=== PATIENT | male | born 1990 | race Caucasian/White ===

== ENCOUNTER 2023-12-02 11:13 | Emergency (ER) | payer BC, SELFPAY ==
[2023-12-02] VITALS (30 sets, daily range): BP systolic 113–135; BP diastolic 85–112; PULSE 108–126; RESP 12–27; TEMP 36.3–36.7; O2SAT 95–100
--- NOTE | ~2023-12-02 | XR_ITS ---
XR chest 1V Ordering provider: Demetrius Fair MD History: 33 years Male with . Chest pressure, PANCREATITIS . Comparison: None. FINDINGS: MEDIASTINUM: The cardiac silhouette is not enlarged. LUNGS: No infiltrates, effusions or pneumothorax. OTHER: No free air under the diaphragm. IMPRESSION: No acute cardiopulmonary pathology. Reviewed, dictated and finalized at location A.
--- NOTE | ~2023-12-02 | CT_ITS ---
EXAMINATION: CT abdomen pelvis w con DATE: 12/02/2023 12:25 INDICATION: Epigastric abdominal pain. TECHNIQUE: Computed tomography (CT) of the abdomen and pelvis was performed with 100 mL Omnipaque 350 intravenous contrast. Automated exposure control and iterative reconstruction technique were employe d. The dose-length product was 298.67 mGy-cm. COMPARISON: None. FINDINGS: The visualized portions of the lung bases demonstrate mild atelectasis. No pleural effusion . The heart size is normal. No pericardial effusion. There is diffuse hepatic steatosis. The gallblad panda, spleen, and adrenal glands are normal. There are multiple hypodense masses in the pancreas measu ring up to 3.3 cm in the tail of the pancreas. There is fat stranding around the pancreas. Right kidn ey is normal. There is an 8 mm cyst in left kidney. There are no dilated loops of bowel. The appendix is normal. There are no pathologically enlarged lymph nodes. There is no free intraperitoneal fluid. There is an umbilical hernia containing fat. There is mild thoracic and lumbar spondylosis. IMPRESSION: 1. Acute necrotic pancreatitis. 2. Diffuse hepatic steatosis. Reviewed, dictated and finalized at location A.
--- NOTE | ~2023-12-02 | CT_ITS ---
Clinical Indication: Chest pain CT Scan of the Chest with Contrast: Technique: Contiguous sections were acquired throughout the chest after intravenous administration of 100 cc of Omnipaque 350. Dose reduction technique was used on this scan by utilizing automated expos ure control and iterative reconstruction technique. The dose-length product (DLP) was 205.44 mGy-cm. Findings: There is no evidence of any significant mediastinal, hilar or axillary lymphadenopathy. There is no f illing defect in the pulmonary arterial tree to suggest pulmonary embolus. There is no evidence of ao rtic dissection or aneurysm. There is no evidence of pleural or pericardial effusion. The lungs are clear. No pulmonary nodules or infiltrates are noted. Images through the upper abdomen reveal diffuse hepatic steatosis. Impression: No evidence of pulmonary embolus, aortic dissection, or aortic aneurysm. Clear lungs. Reviewed, dictated and finalized at [facility]. Impression: No evidence of pulmonary embolus, aortic dissection, or aortic aneurysm. Clear lungs.
--- NOTE | 2023-12-02 11:20 | ECG_ITS ---
Test Date: 2023-12-02 11:34:46 Measurements Intervals [place] Rate: 117 P: 18 KS: 120 QRS: 85 QRSD: 88 T: -58 QT: 350 QTc: 489 Interpretive Statements SINUS TACHYCARDIA ST-T WAVE ABNORMALITY IN ANTEROLATERAL LEADS- CONSIDER ISCHEMIA ABNORMAL ECG No previous ECG available for comparison Electronically Signed On 12-02-2023 11:42:53 CDT by Watson Sandoval D.O.
[2023-12-02 11:33] LABS: Basophils Percent Auto 0.4 % (0.2-1.2); Eosinophils Absolute Auto 0.1 K/mm3 (0-0.3); Eosinophils Percent Auto 0.5 % (0-4.4); Hemoglobin 14.9 g/dL (14.0-18.0); Immature Granulocyte Absolute 0.03 K/mm3 (0.00-0.031); Immature Granulocyte Percent A 0.3 % (0-0.5); Lymphocytes Absolute Auto 0.61 K/mm3 (0.9-3.2); Lymphocytes Percent Auto 5.9 % (18.3-44.2); Mean Corpuscular HGB Conc 34.7 g/dl (32-36); Mean Corpuscular Hemoglobin 32.7 pg (26-34); Mean Corpuscular Volume 94.3 fl (80-100); Mean Platelet Volume 9.6 fl (7.4-10.4); Monocytes Absolute Auto 0.8 K/mm3 (0.1-0.6); Monocytes Percent Auto 8.1 % (2.6-8.5); Neutrophils Absolute Auto 8.7 K/mm3 (1.3-6.7); Neutrophils Percent Auto 84.8 % (45.5-73.1); Platelet Count Result 105 k/mm3 (150-375); Red Blood Count 4.56 M/mm3 (4.6-6.20); Red Cell Distribution Width 14.1 % (11.5-14.5); White Blood Count 10.3 K/mm3 (4.5-10.0)
[2023-12-02 11:42] LABS: INR 0.9; Prothrombin Time 12.6 Seconds (11.1-14.7)
[2023-12-02 11:43] LABS: Alanine Aminotransferase 139 U/L (6-50); Albumin Level 5.5 g/dL (3.5-5.1); Alkaline Phosphatase 79 U/L (38-126); Anion Gap 28 mmol/L (4-12); Aspartate Amino Transferase 290 U/L (17-59); Bilirubin,Total 2.2 mg/dL (0.2-1.3); Blood Urea Nitrogen 12 mg/dL (9-20); Calcium 8.8 mg/dL (8.4-10.2); Carbon Dioxide 18 mmol/L (22-30); Chloride 82 mmol/L (98-107); Estimated CRCL calculation 128 ml/min; Estimated Glomerular Filt Rate > 60; Glucose 240 mg/dL (65-110); Lipase 385 U/L (23-300); Partial Thromboplastin Time 29.9 Seconds (22.3-36.8); Potassium 4.2 mmol/L (3.4-5.0); Sodium 128 mmol/L (137-145)
[2023-12-02 11:56] LABS: Troponin I 0.093 ng/mL (0.000-0.034)
[2023-12-02] MEDS: DEXTROSE 5%/LACTATED RINGERS 2,000 ML 100 ML IV CONT (12:01)
[2023-12-02 12:20] LABS: Lipase 392 U/L (23-300); Magnesium 2.2 mg/dL (1.6-2.3); Phosphorus 2.8 mg/dL (2.5-4.5)
[2023-12-02 12:23] LABS: Ethanol < 10 mg/dL (<10)
[2023-12-02 12:23] LABS: Lactic Acid Reflex 3.8 mmol/L (0.7-2.0)
[2023-12-02 12:24] LABS: Acetaminophen 35 ug/mL (10-30)
[2023-12-02 12:36] LABS: Amphetamine Screen Urine Negative (Negative); Barbiturate Screen Urine Negative (Negative); Benzodiazepines Screen Urine Negative (Negative); Cannabinoid Screen Urine Negative (Negative); Cocaine Screen Urine Negative (Negative); Methadone Screen Urine Negative (Negative); Opiate Screen Urine Negative (Negative); Phencyclidine Screen Urine Negative (Negative)
[2023-12-02 12:40] LABS: NT Pro B Type Natriuretic Pept 3480 pg/mL (19.9-100)
[2023-12-02 12:47] LABS: D Dimer 0.96 ug/mL (<0.48)
[2023-12-02] MEDS: THIAMINE 500 MG/NS 100 ML 500 MG/100 ML BAG 200 MG IVPB (12:52)
--- NOTE | 2023-12-02 12:54 | PC.NURSE ---
called poison control for pt reporting taking 6000 mg acetaminophen throughout the day today for his abd pain >250mg/kilo is concerning, with 17.5 gram max in 24 hour period. pt took 98mg/kilo, meaning this could be considered subtoxic spoke with MADHURI Liao, who recommended repeating labwork in 4-6 hours or starting Acetylcysteine at this time, decision to be made by er md. loading dose 150 mg/kilo over 1 hour and then follow pharmacy protocol
[2023-12-02] MEDS: ONDANSETRON INJ 4 MG/2 ML VIAL IV PUSH (13:11)
[2023-12-02] MEDS: HYDROmorphone HCL INJ (*CRX) 1 MG/ML SYR IV PUSH ×3 (13:11→20:07)
[2023-12-02] MEDS: CEFEPIME 2 GM/NS 50 ML 2 GM/50 ML BAG IVPB ×2 (14:17→22:29)
--- NOTE | 2023-12-02 14:27 | ED.GENADULT ---
HPI - General Adult General Chief complaint: Abdominal Pain <Demetrius Fair MD - Last Filed: 12/02/23 19:11> Stated complaint: multiple complaints <Demetrius Fair MD - Last Filed: 12/02/23 19:11> Time Seen by Provider: 12/02/23 11:37 <Demetrius Fair MD - Last Filed: 12/02/23 19:11> History of Present Illness HPI narrative: This is a 33-year-old male with history of alcoholism and pancreatitis presenting with multiple complaints. Main complaint is epigastric abdominal pain that is squeezing in radiates to his back. He relates this to previous episodes of pancreatitis. It is associated persistent nausea vomiting and diaphoresis. The the patient has been taking Tylenol throughout the day which has not been helping. Throughout the day today he has taken 6000 mg. He also took 2 doses of clonazepam prior to arrival. Second complaint is chest pain. Patient says he has a pressure in the center his chest. It is nonradiating and mild in intensity. <Demetrius Fair MD - Last Filed: 12/02/23 19:11> Related Data Allergies/adverse reactions: Allergies Allergy/AdvReac Type Severity Reaction Status Date / Time Sulfa (Sulfonamide Allergy Unknown Unknown Verified 12/02/23 12:01 Antibiotics) sulfamethoxazole Allergy Unknown Unknown Verified 12/02/23 12:01 trimethoprim Allergy Unknown Unknown Verified 12/02/23 12:01 <Demetrius Fair MD - Last Filed: 12/02/23 19:11> Exam Narrative: APPEARANCE: Patient is toxic appearing, diaphoretic Head: atraumatic. EYES: EOMI, NOSE: Atraumatic NECK: Trachea midline RESPIRATORY: No increased rate of breathing clear to auscultation CARDIOVASCULAR: Tachycardic no peripheral edema ABDOMINAL: Tender in the epigastric area with voluntary guarding MUSCULOSKELETAl: No obvious deformities NEURO: Alert. Moving 4/4 extremities SKIN:: Cool clammy diaphoretic <Demetrius Fair MD - Last Filed: 12/02/23 19:11> Course Vital Signs Vital signs: Vital Signs Temperature 97.9 F 12/02/23 11:13 Pulse Rate 117 H 12/02/23 11:13 Respiratory Rate 16 12/02/23 11:13 Pulse Oximetry 100 12/02/23 11:13 Temperature 97.4 F L 12/02/23 18:33 Pulse Rate 118 H 12/03/23 03:01 Respiratory Rate 12 12/03/23 03:01 Blood Pressure 113/95 H 12/03/23 03:01 Pulse Oximetry 100 12/03/23 03:01 <Demetrius Fair MD - Last Filed: 12/02/23 19:11> Vital Signs Temperature 97.9 F 12/02/23 11:13 Pulse Rate 117 H 12/02/23 11:13 Respiratory Rate 16 12/02/23 11:13 Pulse Oximetry 100 12/02/23 11:13 Temperature 97.4 F L 12/02/23 18:33 Pulse Rate 118 H 12/03/23 03:01 Respiratory Rate 12 12/03/23 03:01 Blood Pressure 113/95 H 12/03/23 03:01 Pulse Oximetry 100 12/03/23 03:01 <Ortega Urias DO - Last Filed: 12/03/23 03:38> Medical Decision Making MDM Narrative Medical decision making narrative: -Course: 33-year-old male presenting with abdominal pain. CT showed acute necrotizing pancreatitis hepatic steatosis. lipase 385. Metabolic panel consistent with alcoholic ketoacidosis and dehydration. Liver enzymes slightly elevated. Patient resuscitated with D5 LR, given thiamine and pain control. Patient started on cefepime and Flagyl. Patient's troponins came back elevated at 0.09 x3. BNP slightly elevated. D-dimer also elevated but CT PE without acute findings in the chest. EKG showed sinus tachycardia with nonspecific T-wave changes. Patient also had a subacute ingestion of 6000mg Tylenol. This was discussed with poison control. They were not concerned about dangerous levels of toxicity. Repeat Tylenol level was undetectable. Patient placed on the [facility] (Dr. Powers) and the [facility] (Dr. Cunningham) waiting list. [facility] are [facility]. On repeat lab work patient's condition is improving. Alcoholic ketoacidosis/anion gap have improved, lactic cleared to 2.2 and liver enzymes are downtrending.
[2023-12-02 15:00] LABS: Troponin I 0.099 ng/mL (0.000-0.034)
[2023-12-02] MEDS: metroNIDAZOLE 500 MG/ISO 100ML 500 MG/100 ML BAG 100 MG IVPB ×2 (15:03→23:03)
[2023-12-02 15:04] LABS: Reflex Lactic Acid Yes or No Add Lactic
[2023-12-02 15:31] LABS: Lactic Acid 2.2 mmol/L (0.7-2.0)
--- NOTE | 2023-12-02 16:54 | PC.NURSE ---
spoke with Jennifer in triage intake at [facility]. gave verbal report. Jennifer states there is not a bed available at this time, will call when one is available
--- NOTE | 2023-12-02 17:09 | ECG_ITS ---
Test Date: 2023-12-02 17:14:06 Measurements Intervals [place] Rate: 111 P: 47 WV: 147 QRS: 66 QRSD: 92 T: -5 QT: 350 QTc: 477 Interpretive Statements SINUS TACHYCARDIA MODERATE ST-T WAVE ABNORMALITY, CONSIDER ANTEROLATERAL ISCHEMIA ABNORMAL ECG Compared to ECG 12/02/2023 11:34:46 No significant changes Electronically Signed On 12-02-2023 19:56:30 CDT by Wtason Sandoval D.O.
[2023-12-02 17:22] LABS: Alanine Aminotransferase 126 U/L (6-50); Albumin Level 4.7 g/dL (3.5-5.1); Alkaline Phosphatase 68 U/L (38-126); Anion Gap 14 mmol/L (4-12); Aspartate Amino Transferase 229 U/L (17-59); Bilirubin,Total 1.7 mg/dL (0.2-1.3); Blood Urea Nitrogen 7 mg/dL (9-20); Calcium 8.5 mg/dL (8.4-10.2); Carbon Dioxide 27 mmol/L (22-30); Chloride 87 mmol/L (98-107); Estimated CRCL calculation 183 ml/min; Estimated Glomerular Filt Rate > 60; Glucose 287 mg/dL (65-110); Potassium 4.1 mmol/L (3.4-5.0); Sodium 128 mmol/L (137-145)
[2023-12-02 17:27] LABS: Acetaminophen < 10 ug/mL (10-30)
--- NOTE | 2023-12-02 17:35 | PC.NURSE ---
pt requesting additional pain medication. edp aware
[2023-12-02 17:36] LABS: Troponin I 0.099 ng/mL (0.000-0.034)
[2023-12-02] MEDS: LACTATED RINGERS 1,000 ML 150 ML IV CONT (18:32)
[2023-12-02 19:18] LABS: Fractional Inspired Oxygen 21 %; HCO3 VBG 28.3 mEq/l (24.0-30.0); PCO2 VBG 42.4 mmHg (42.0-48.0); PO2 VBG 66.8 mmHg (35.0-45.0)
[2023-12-02 19:21] LABS: Device ROOM AIR; pH VBG 7.442 (7.300-7.400)
[2023-12-03] MEDS: HYDROmorphone HCL INJ (*CRX) 1 MG/ML SYR IV PUSH ×2 (00:03→03:47)
[2023-12-03] MEDS: LORazepam INJ (*CRX) 2 MG/ML VIAL 0.5 MG IV PUSH (00:45)
[2023-12-03 01:46] VITALS: BP 116/93; PULSE 109; RESP 10; O2SAT 98
[2023-12-03 02:01] VITALS: BP 112/90; PULSE 109; RESP 9; O2SAT 98
[2023-12-03 03:01] VITALS: BP 113/95; PULSE 118; RESP 12; O2SAT 100
== END 2023-12-03 04:06 | disposition short-term general hospital (02) ==
PROVIDERS: Emergency Medicine; Emergency Provider Student in an Organized Health Care Education/Training Program; PCP Family Medicine
DX: K85.81 Other acute pancreatitis with uninfected necrosis (principal); E87.29 Other acidosis; F10.20 Alcohol dependence, uncomplicated; Y90.0 Blood alcohol level of less than 20 mg/100 ml; R00.0 Tachycardia, unspecified; R94.31 Abnormal electrocardiogram [ECG] [EKG]; K76.0 Fatty (change of) liver, not elsewhere classified
CPT/HCPCS: 36415; 71045; 71275; 74177; 80053; 80307; 82803; 83605; 83690; 83735; 83880; 84100; 84484; 85025; 85380; 85610; 85730; 87040; 93005; 96361; 96365; 96366; 96367; 96374; 96375; 96376; 99285; J0692; J1170; J1836; J2060; J2405; J3411; J7120; J7121; Q9967

== ENCOUNTER 2024-01-30 01:05 | Inpatient (IN) | payer BC, SELFPAY ==
[2024-01-30] VITALS (17 sets, daily range): BP systolic 90–99; BP diastolic 63–79; PULSE 117–123; RESP 16–24; TEMP 36.4–37.1; O2SAT 90–100; BMI 17.2
--- NOTE | 2024-01-30 | ECHO_ITS ---
Patient Info Name: Douglas Wright Age: 33 years : 1990 Gender: Male Ht: 72 in Wt: 130 lbs BSA: 1.71 m2 HR: 122 bpm BP: 98 / 70 mmHg Heart Rhythm: Tachycardia Technical Quality: Good Exam Date: 01/30/2024 3:27 PM Exam Location: Echo Lab Patient Status: Inpatient Admit Date: 01/30/2024 Staff Ordering Physician: Monroe Young MD It Operations Analyst: Shannon Miranda RDCS Attending Provider: Ashley Coates DO Exam Type: CA echo dop color flow w con Study Info Indications R07.9 - Chest pain, unspecified Complete two-dimensional, color flow and Doppler transthoracic echocardiogram is performed with contrast to opacify the left ventricle and to improve the deliniation of the left ventricle endocardial borders. Contrast/Agitated Saline Contrast/Ag. Saline: Definity Amount: 2.00 ml Administered By: Shannon Miranda RDCS Existing IV Access: Yes IV Access Condition: patent with no signs of infiltration Summary 1. Definity contrast administered improved wall motion interpretation. 2. Left ventricular chamber dimension is severely enlarged. 3. Left ventricular systolic function is severely globally reduced, estimated at 15-20%. 4. The left ventricular diastolic function is normal. 5. E/e' 7 is not elevated. 6. There is trace mitral valve regurgitation. 7. There is trace tricuspid valve regurgitation. 8. No pulmonary hypertension, estimated pulmonary arterial systolic pressure is 18 mmHg. 9. There is trace pulmonic regurgitation. 10. There is trivial pericardial effusion. Left Ventricle Definity contrast administered improved wall motion interpretation. E/e' 7 is not elevated. Left ventricular systolic function is severely globally reduced, estimated at 15-20%. Left ventricular chamber dimension is severely enlarged. The left ventricular diastolic function is normal. Right Ventricle Right ventricular systolic function is normal and with normal TAPSE 1.9 cm. Right ventricular chamber dimension is normal. Left Atria Left atrial chamber dimension is normal. Right Atria Right atrial chamber dimension is normal. Aortic Valve The aortic valve is trileaflet. There is no aortic valve stenosis. There is no aortic valve regurgitation. Pulmonic Valve There is trace pulmonic regurgitation. Mitral Valve There is no mitral valve stenosis. There is trace mitral valve regurgitation. Tricuspid Valve There is trace tricuspid valve regurgitation. No pulmonary hypertension, estimated pulmonary arterial systolic pressure is 18 mmHg. Pericardium/Pleural There is trivial pericardial effusion. Inferior Vena Cava Normal inferior vena cava with >50% collapse upon inspiration consistent with normal right atrial pressure, 5 mmHg. Aorta The aortic root size at the sinus of Valsalva is normal. Left Ventricular Outflow Tract Name Value Normal LVOT 2D LVOT Diameter 2.17 cm LVOT Doppler LVOT Peak Gradient 1 mmHg LVOT Mean Gradient 1 mmHg LVOT VTI 5.08 cm LVOT VTI/AV VTI Ratio 0.80 LVOT Stroke Volume 18.73 ml
--- NOTE | ~2024-01-30 | US_ITS ---
COMPLETE ABDOMINAL ULTRASOUND Ordering provider: Monroe Young MD History: . possible cholecystitis . Comparison: None. FINDINGS: LIVER: Normal size and echotexture. No focal hepatic lesions or perihepatic fluid collections are isauro ntified. Portal vein flow is normal. GALLBLADDER: No evidence for stones, or sludge, gallbladder. Thickening with edema is seen in the wa ll of the gallbladder. No evidence of gallbladder perforation seen. A negative sonographic Marie's s ign was noted. BILIARY DUCTS: No evidence for intra or extrahepatic biliary dilation. Common bile duct measures 3.3 mm in diameter which is within normal limits. PANCREAS: Normal echotexture and size. UPPER ABDOMINAL AORTA: Normal in caliber. IVC: Patent. FREE FLUID: None. IMPRESSION: Thickened wall of the gallbladder. Cholecystitis is not excluded. Clinical correlation and follow-up advised. Reviewed, dictated and finalized at location A. IMPRESSION: Thickened wall of the gallbladder. Cholecystitis is not excluded. Clinical aida elation and follow-up advised.
--- NOTE | ~2024-01-30 | XR_ITS ---
XR chest 1V portable 02/01/2024 12:22 Indication: Status post PICC line Procedure: AP portable chest Comparison: 01/30/2024 Findings: Interval development of diffuse bilateral airspace disease. Possible small left effusion. N o pneumothorax. Impression: 1: Progression of diffuse bilateral airspace disease which may represent edema or pneumonia. Reviewed, dictated and finalized at location B. Impression: 1: Progression of diffuse bilateral airspace disease which may represent edema or pneumonia.
--- NOTE | ~2024-01-30 | XR_ITS ---
EXAMINATION: XR chest 1V portable DATE: 01/30/2024 06:19 INDICATION: Epigastric pain TECHNIQUE: frontal view of the chest was obtained. COMPARISON: Chest radiograph dated 12/02/2023 FINDINGS: Linear discoid atelectasis at the lateral right mid and lower lung zones. No pulmonary edema, pleural effusion or pneumothorax. The cardiomediastinal silhouette is normal. Visualized bones and soft tiss ues are unremarkable. IMPRESSION: 1. Mild discoid atelectasis at the right mid and lower lung zones. Reviewed, dictated and finalized at location A.
--- NOTE | ~2024-01-30 | XR_ITS ---
XR chest ET placement 02/01/2024 13:14 Indication: Central line insertion Procedure: AP portable chest Comparison: 02/01/2024 Findings: Borderline heart size. Endotracheal tube tip 6.7 cm above the [place]. Right IJ central line tip in the right atrium. No pneumothorax. Improved bilateral airspace disease, likely edema. Small p leural effusions. Impression: 1: Improving bilateral airspace disease, likely edema. Reviewed, dictated and finalized at location B. Impression: 1: Improving bilateral airspace disease, likely edema.
--- NOTE | ~2024-01-30 | CT_ITS ---
CT abdomen pelvis w con Ordering provider: Pierre Trevizo History: 33 years Male with . epigastric pain, hx pancreatitis . Comparison: December 02, 2023 Technique: CT abdomen and pelvis with IV and without oral contrast. Automated exposure control and it erative reconstruction technique were employed. The dose-length product was 235.82 mGy-cm. 100 mL Omn ipaque 350 was given IV. Findings: VISUALIZED LOWER CHEST: Dependent atelectatic changes. Trace of pericardial effusion. To the appendix UPPER ABDOMINAL ORGANS: Liver: Fat infiltration. Hepatomegaly. Gallbladder: Thickened enhancing wall and surrounding edema. Cystitis is possible. Clinical correlati on advised. Spleen: Normal. Stomach/duodenum: Normal. Pancreas: Focal collection is seen in the area of the tail of the pancreas measuring 1.8 x 4.2 cm. An other collection is seen measuring 3.5 x 2.8 cm. The collections are most likely connected. Fat stranding is seen around the body and the head suggest judy of residual pancreatitis. Adrenals: Normal. Kidneys: Tiny cysts in the left kidney upper pole. PELVIC ORGANS: The bladder is normal. BOWEL AND MESENTERY: Colon: No evidence of diverticulitis. Normal appendix. Small Bowel: Normal. No obstruction. Peritoneum/mesentery: No free air. Minimal free fluid is seen in the pelvis and right paracolic gutte r.. No mesenteric lymphadenopathy. RETROPERITONEUM: Normal aorta. No retroperitoneal lymphadenopathy. MUSCULOSKELETAL: Superficial soft tissues: The superficial soft tissues are normal. Bones: Normal spine. IMPRESSION: 1. Pancreatitis involving the head and body with the collection seen in the tail of the pancreas are a. 2. Fluid around the gallbladder with enhancement of the wall which may indicate cholecystitis. Clini herbie correlation advised. 3. Fat infiltration of the liver. Hepatomegaly 4. Minimal free fluid in the pelvis and right paracolic gutter. Reviewed, dictated and finalized at location A. IMPRESSION: 1. Pancreatitis involving the head and body with the collection seen in the ta il of the pancreas area. 2. Fluid around the gallbladder with enhancement of the wall which may indicat e cholecystitis. Clinical correlation advised. 3. Fat infiltration of the liver. Hepatomegaly 4. Minimal free fluid in the pelvis and right paracolic gutter.
--- NOTE | ~2024-01-30 | XR_ITS ---
XR abdomen gastric tube insert INDICATION: Evaluate OG tube position. TECHNIQUE: Limited KUB perform for evaluating OG tube . COMPARISON: No prior studies for comparison. FINDINGS: OG tube tip in the stomach. Visualized bowel gas pattern is unremarkable. IMPRESSION: 1: NG tube tip in the stomach. Reviewed, dictated and finalized at location B.
--- NOTE | ~2024-01-30 | CT_ITS ---
EXAMINATION: CTA chest PE protocol DATE: 01/30/2024 14:45 INDICATION: elevated d dimer TECHNIQUE: Computed tomography angiography (CTA) of the chest was performed with 100 mL Omnipaque-350 intravenous contrast timed to evaluate the pulmonary arteries. Coronal maximum intensity projection 3D-reconstructions were created by the technologist. The dose-length product (DLP) was 207.43 mGy-cm. Automated exposure control and iterative reconstruction technique were employed. COMPARISON: X-ray chest and CT abdomen pelvis, same date; [facility]PA 12/02/2023. FINDINGS: Lung parenchyma and airways: Linear and subsegmental benefits of consolidation in the bilateral lower lobes. Pleura: Small volume bilateral pleural fluid collections. Thoracic inlet, axillae and chest wall: Unremarkable. Thoracic aorta: No significant dilation. No dissection. Mediastinum: Dilated central pulmonary arteries. Heart and pericardium: Small volume pericardial fluid/pericardial thickening. Cardiomegaly. Coronary artery calcifications: Absent. Upper abdomen: Hepatic steatosis. Upper abdominal mesenteric and peripancreatic stranding. Bones: No acute osseous finding. Pulmonary arteries: Study quality: Adequate. No pulmonary emboli detected. IMPRESSION: No CT evidence of acute pulmonary embolus. Subsegmental bilateral lower lobe atelectasis/consolidation. Small bilateral pleural effusions. Cardiomegaly with small volume pericardial effusion. Also consider pericarditis the differential. CT findings suggestive of pulmonary arterial hypertension. Reviewed, dictated and finalized at location K.
--- NOTE | ~2024-01-30 | US_ITS ---
BILATERAL LOWER EXTREMITY VENOUS ULTRASOUND Ordering provider: Monroe Young MD History: . +Homans sign . Comparison: None. FINDINGS: RIGHT LOWER EXTREMITY VEINS: --COMMON FEMORAL: Patent and free of thrombus. Normal compressibility, phasic flow and augmentation. --PROXIMAL SUPERFICIAL FEMORAL: Patent and free of thrombus. Normal compressibility, phasic flow and augmentation. --DISTAL SUPERFICIAL FEMORAL: Patent and free of thrombus. Normal compressibility, phasic flow and au gmentation. --POPLITEAL: Patent and free of thrombus. Normal compressibility, phasic flow and augmentation. --POSTERIOR TIBIAL: Patent and free of thrombus. Normal compressibility, phasic flow and augmentation . LEFT LOWER EXTREMITY VEINS: --COMMON FEMORAL: Patent and free of thrombus. Normal compressibility, phasic flow and augmentation. --PROXIMAL SUPERFICIAL FEMORAL: Patent and free of thrombus. Normal compressibility, phasic flow and augmentation. --DISTAL SUPERFICIAL FEMORAL: Patent and free of thrombus. Normal compressibility, phasic flow and au gmentation. --POPLITEAL: Patent and free of thrombus. Normal compressibility, phasic flow and augmentation. --POSTERIOR TIBIAL: Patent and free of thrombus. Normal compressibility, phasic flow and augmentation . IMPRESSION: Negative bilateral lower extremity venous US. No deep vein thrombosis. Reviewed, dictated and finalized at location A.
--- NOTE | 2024-01-30 06:26 | ADMGEN ---
This patient, Douglas Wright, was admitted to IMU Room 206-02 on 01/30/24 at 0548. Patient/family oriented to hospital policies and general routines including ID bracelet, bed and alarms, visiting hours, pain management, procedures, bathroom and other care routines, personal items, smoking policy, room service/diet, and visiting hours. Information on how to activate the Rapid Response Team has been discussed. Patient/Family are encouraged to report perceived risks to care and to ask questions if they do not understand what they are told or what they should do.
[2024-01-30] MEDS: HYDROmorphone HCL INJ (*CRX) 1 MG/ML SYR IV PUSH ×5 (06:28→21:10)
[2024-01-30 06:35] LABS: Alanine Aminotransferase 148 U/L (6-50); Albumin Level 4.2 g/dL (3.5-5.1); Alkaline Phosphatase 150 U/L (38-126); Anion Gap 14 mmol/L (4-12); Aspartate Amino Transferase 178 U/L (17-59); Bilirubin,Total 0.4 mg/dL (0.2-1.3); Blood Urea Nitrogen 9 mg/dL (9-20); Carbon Dioxide 23 mmol/L (22-30); Chloride 104 mmol/L (98-107); Estimated CRCL calculation 177 ml/min; Estimated Glomerular Filt Rate > 60; Glucose 131 mg/dL (65-110); Lipase 22 U/L (23-300); Potassium 3.5 mmol/L (3.4-5.0); Sodium 141 mmol/L (137-145)
[2024-01-30 06:39] LABS: Basophils Percent Auto 0.3 % (0.2-1.2); Eosinophils Percent Auto 0.2 % (0-4.4); Hematocrit 35.2 % (42.0-52.0); Hemoglobin 11.5 g/dL (14.0-18.0); Immature Granulocyte Absolute 0.06 K/mm3 (0.00-0.031); Immature Granulocyte Percent A 0.5 % (0-0.5); Immature Reticulocyte Fraction 20.3 % (3.0-15.9); Lymphocytes Absolute Auto 3.09 K/mm3 (0.9-3.2); Lymphocytes Percent Auto 26.6 % (18.3-44.2); Mean Corpuscular HGB Conc 32.7 g/dl (32-36); Mean Corpuscular Volume 98.1 fl (80-100); Mean Platelet Volume 10.1 fl (7.4-10.4); Monocytes Absolute Auto 1.2 K/mm3 (0.1-0.6); Monocytes Percent Auto 10.2 % (2.6-8.5); Neutrophils Absolute Auto 7.2 K/mm3 (1.3-6.7); Neutrophils Percent Auto 62.2 % (45.5-73.1); Platelet Count Result 239 k/mm3 (150-375); Red Blood Count 3.59 M/mm3 (4.6-6.20); Red Cell Distribution Width 16.8 % (11.5-14.5); Reticulocyte Hemoglobin Conten 38.8 pg (28.2-36.6); Reticulocyte Percent 3.68 % (0.7-4.3); Reticulocytes Absolute 0.13 10^6/uL (0.02-0.10); White Blood Count 11.6 K/mm3 (4.5-10.0)
[2024-01-30 06:41] LABS: Erythrocyte Sedimentation Rate 68 mm/hr (0-20)
[2024-01-30 06:47] LABS: Lactic Acid Reflex 2.1 mmol/L (0.7-2.0)
--- NOTE | 2024-01-30 07:53 | ED.PROGRESS ---
Subjective Date/time seen: 01/30/24 07:53 Interval history: Patient seen and evaluated during [facility] EMR down time, please see down time charting for further details including HPI, ROS, Exam, MDM, and Disposition. Objective Data Vital Signs Vital Signs: Vital Signs - 24 hr 01/30/24 05:50 Temperature 36.4 C Pulse Rate 120 H Respiratory Rate 16 Blood Pressure 90/67 L Pulse Oximetry 100 Meds/Results Medications: Active Medications Generic Name Dose Route Start Last Admin Trade Name Freq PRN Reason Stop Dose Admin Hydromorphone HCl 1 mg 01/30/24 06:16 01/30/24 06:28 Hydromorphone Hcl Inj (*Crx) 1 Mg/Ml Syr IV PUSH 1 mg Q3H PRN Administration Pain Rated 7-10 Sodium Chloride 1,000 mls @ 150 mls/hr 01/30/24 06:20 Normal Saline Iv IV CONT .Q6H40M KATY Ketorolac Tromethamine 30 mg 01/30/24 07:46 Ketorolac 30 Mg/Ml Vial (*Bkc) IV PUSH ONCE PRN Pain Ondansetron HCl 4 mg 01/30/24 06:16 Ondansetron Inj 4 Mg/2 Ml Vial IV PUSH Q6H PRN Nausea And Vomiting Radiology Results: ITS Impressions Chest X-Ray 01/30/24 06:40 IMPRESSION: 1. Mild discoid atelectasis at the right mid and lower lung zones. Labs Labs: Laboratory Results - last 24 hr 01/30/24 01:17 WBC 11.6 H RBC 3.59 L Hgb 11.5 L D Hct 35.2 L MCV 98.1 MCH 32.0 MCHC 32.7 RDW 16.8 H Plt Count 239 D MPV 10.1 Immature Gran % (Auto) 0.5 Neut % (Auto) 62.2 Lymph % (Auto) 26.6 [place] % (Auto) 10.2 H Eos % (Auto) 0.2 Baso % (Auto) 0.3 Lymph # (Auto) 3.09 [place] # (Auto) 1.2 H Eos # (Auto) 0.0 Baso # (Auto) 0.0 Abs Immat Gran (auto) 0.06 H Absolute Neuts (auto) 7.2 H Absolute Nucleated RBC 0.000 Nucleated RBC % 0.0 ESR 68 H Absolute Retic 0.13 H Percent Retic 3.68 Immature Retic Fraction 20.3 H Retic Hgb Content 38.8 H Sodium 141 Potassium 3.5 Chloride 104 Carbon Dioxide 23 Anion Gap 14 H BUN 9 Creatinine 0.40 L Estim Creat Clear Calc 177 Estimated GFR > 60 Glucose 131 H Lactic Acid 2.1 H Calcium 8.0 L Total Bilirubin 0.4 AST 178 H ALT 148 H Alkaline Phosphatase 150 H Total Protein 7.0 Albumin 4.2 Lipase 22 L
--- NOTE | 2024-01-30 08:11 | PM.IMHP ---
H&P: HPI History of Present Illness Date/Time: 01/30/24 08:11 Chief Complaint: Abdominal pain Narrative: 33yo male with hx of alcoholism and pancreatitis here for abdominal pain. Patient was hospitalized multiple times over the summer at [facility] for pancreatitis. He was here on 12/02/23 and transfered to [facility] for pancreatitis. CT here showing acute necrotic pancreatitis and multiple hypodense masses in the tail of the pancreas. He has a hx of pancreatic pseudocyst but he was told at [facility] this the pseudocyst has resolved and that he did not have pancreatic necrosis. He has a hx of alcoholism. Hx of DUI when younger. He is driving currently. He has never had a withdrawal seizure. He has withdrawals with nausea, diaphoresis and shakes that start about 18-24hours after stopping alcohol use. He drinks vodka 750mL/day 4-5 days per week. No other alcohol. Smokes 1ppd x16yrs tobacco. Also uses marijuana in various forms but no other drug use, no IVDU or hx of IVDU. He declines hepatitis and HIV testing. He was feeling well without complaints (except mild nausea) prior to the onset of symptoms. He had a frozen turkey dinner around 6pm yesterday but awoke a half after midnight with epigastric pain. Nausea but no vomiting. No diarrhea. He was dizzy. He was having pleuritic chest pain (but has been having this in the past). Also SOB but has been evident especially with exertion for the past 6-12 months. Complains of 50# unintentional weight loss over the past 6 months. No roxy colored stools. Also with blurry vision. He does not wear glasses and says glasses make his vision worse. He does ?snack a lot? but states his oral intake has been the same over many years. He has a rare loose stool but no chronic diarrhea. No melena, hematochezia, dysuria, hematuria, headaches, dysphagia, odynophagia, otalgia or hearing loss. No rashes but did note a dried spot on his left baeza the other day. Is not pleuritic or painful. He does have a history of low blood pressure that was noted when he was at [facility]. He presented to the ED for evaluation. In the ED, patient was tachycardic at 120 with soft BP 90/67. No fevers. Lactic 2.1 -> 1.6. WBC 11.6K without shift. Hgb 11.5. ESR 68. Retic count elevated. AST 178, ALT 148 and lipase 22. CXR showing mild discoid atelectasis right mid and lower lung. CT A/P showing pancreatitis involving head and body with focal collection in the tail. lso with fluid around the GB with wall enhancement and fatty liver. Minimal free fluid. BCx collected. He was given IV fluids, narcotics. Review of Systems Review of Systems: All systems reviewed & are unremarkable except as noted in HPI and below [facility] Past Medical History Medical History (Updated 01/30/24 @ 12:41 by Monroe Young MD) Alcoholism Anxiety Hepatic steatosis Pancreatitis hx of necrotizing pancreatitis November 2023 Hx of pseudocyst that was drained Surgical History Surgical History (Updated 01/30/24 @ 12:32 by Monroe Young MD) History of ankle surgery Family History Family History (Updated 01/30/24 @ 12:33 by Monroe Young MD) Father Heart disease Hypertension Social History Social History (Updated 01/30/24 @ 12:33 by Monroe Young MD) Social History: Smokes 1ppd x16 years. Alcohol use as above. Drug use hx as above Full code Surrogate decision maker - mother Smoking packs per day: 1 Smoking cigarettes per day: 20.0 Smoking status: Current every day smoker Tobacco type: cigarettes Alcohol intake: current Substance use: never Do You Feel Safe in your Home?: Yes Lack of Transportation: No Lack of Food: Never True Current Housing: I Have Housing Concerned About Future Housing: No Difficulty Paying Gas/Electric Bills: No Difficulty Paying for Meds: No Currently Unemployed: No Education: Associate Degree Difficulty w/ Childcare or Family Care: No Spiritual care concerns: No
[2024-01-30] MEDS: SODIUM CHLORIDE 0.9% IV 1,000 ML 150 ML IV CONT ×2 (08:26→16:00)
[2024-01-30] MEDS: KETOROLAC 30 MG/ML VIAL (*BKC) IV PUSH (08:26)
[2024-01-30] MEDS: PIPERACILLIN/TAZ 4.5G/NS 100ML 4.5 GM/100 ML BAG IVPB (08:27)
[2024-01-30 09:44] LABS: Reflex Lactic Acid Yes or No Add Lactic
[2024-01-30 10:21] LABS: Lactic Acid 1.6 mmol/L (0.7-2.0)
--- NOTE | 2024-01-30 12:55 | ECG_ITS ---
Test Date: 2024-01-30 13:51:16 Measurements Intervals [place] Rate: 119 P: 16 PA: 141 QRS: -14 QRSD: 97 T: 31 QT: 312 QTc: 440 Interpretive Statements SINUS TACHYCARDIA INCOMPLETE RIGHT BUNDLE BRANCH BLOCK DELAYED PRECORDIAL R/S TRANSITION LOW QRS VOLTAGE IN LIMB LEADS BORDERLINE T WAVE ABNORMALITY- LATERAL LEADS ABNORMAL ECG Compared to ECG 12/02/2023 17:14:06 POSSIBLE ISCHEMIA NO LONGER PRESENT Electronically Signed On 01-30-2024 14:06:15 CDT by Watson Sandoval D.O.
[2024-01-30] MEDS: chlordiazePOXIDE (*CRX) 25 MG CAPSULE PO ×2 (13:26→17:16)
[2024-01-30] MEDS: FOLIC ACID 1 MG/0.2 ML INJ IV PUSH (13:26)
[2024-01-30] MEDS: THIAMINE HCL 200 MG/2 ML VIAL 100 MG IV PUSH (13:26)
[2024-01-30] MEDS: PANTOPRAZOLE SODIUM IV 40 MG VIAL IV PUSH (13:28)
[2024-01-30 13:57] LABS: Acetaminophen < 10 ug/mL (10-30); Ammonia < 9 umol/L (9-30); Ethanol < 10 mg/dL (<10); Salicylate < 1.0 mg/dL (2-20)
[2024-01-30 14:03] LABS: Partial Thromboplastin Time 38.7 Seconds (22.3-36.8)
[2024-01-30 14:09] LABS: D Dimer 0.94 ug/mL (<0.48)
[2024-01-30 14:16] LABS: Alanine Aminotransferase 114 U/L (6-50); Albumin Level 3.8 g/dL (3.5-5.1); Alkaline Phosphatase 128 U/L (38-126); Anion Gap 10 mmol/L (4-12); Aspartate Amino Transferase 123 U/L (17-59); Bilirubin,Total 2.3 mg/dL (0.2-1.3); Blood Urea Nitrogen 13 mg/dL (9-20); Carbon Dioxide 28 mmol/L (22-30); Chloride 100 mmol/L (98-107); Estimated CRCL calculation 145 ml/min; Estimated Glomerular Filt Rate > 60; Glucose 133 mg/dL (65-110); Lipase 23 U/L (23-300); NT Pro B Type Natriuretic Pept 11100 pg/mL (19.9-100); Potassium 4.4 mmol/L (3.4-5.0); Sodium 138 mmol/L (137-145); Triglycerides 118 mg/dL (<150); Troponin I 0.461 ng/mL (0.000-0.034)
[2024-01-30 14:40] LABS: Vitamin D 25 Hydroxy 40.7 ng/mL
[2024-01-30 14:46] LABS: Amphetamine Screen Urine Negative (Negative); Barbiturate Screen Urine Negative (Negative); Benzodiazepines Screen Urine Negative (Negative); Cannabinoid Screen Urine Negative (Negative); Cocaine Screen Urine Negative (Negative); Methadone Screen Urine Negative (Negative); Opiate Screen Urine Positive (Negative); Phencyclidine Screen Urine Negative (Negative)
[2024-01-30 15:08] LABS: Folic Acid > 20.0 ng/mL (2.76->20); Vitamin B12 > 1000.0 pg/mL (239-931)
[2024-01-30 15:20] LABS: Hepatitis B Surface Antigen Negative (Negative)
[2024-01-30 15:26] LABS: HAV RESULT Negative (Negative); Hepatitis B Core IgM Result Negative (Negative)
[2024-01-30 15:37] LABS: Hepatitis C Virus Antibody Negative (Negative)
[2024-01-30] MEDS: PERFLUTREN LIPID MICROSPHERES 1.5 ML VIAL DILUTED TO 10 ML TOTAL VOLUME IV PUSH (15:55)
--- NOTE | 2024-01-30 16:24 | IVDEFINITY ---
Prior to administration of IV Definity the patient was educated on the risks and benefits of the imaging enhancing agent including potential adverse side effects. The patient verbalized understanding. Allergies were verified. No exclusion criteria were identified and at least one of the following inclusion criteria were met: 1) physician request, 2) patient technically difficult to image (per the [place] Society of Echocardiography guidelines of two or more segments not discernable within the apical view), or 3) questionable left ventricular function. ?
[2024-01-30 17:54] LABS: Creatine Kinase 227 U/L (55-170)
[2024-01-30 18:13] LABS: Troponin I 0.334 ng/mL (0.000-0.034)
[2024-01-30] MEDS: oxyCODONE HCL (*CRX) 5 MG TAB IR PO ×2 (18:18→22:39)
[2024-01-30] MEDS: NICOTINE (*PBKC) 21 MG PATCH 1 PATCH TRANSDERM (18:18)
[2024-01-30 18:21] LABS: Glucose Point of Care 155 mg/dl (65-105)
[2024-01-30] MEDS: ONDANSETRON INJ 4 MG/2 ML VIAL IV PUSH (18:24)
[2024-01-30 20:52] LABS: Troponin I 0.309 ng/mL (0.000-0.034)
[2024-01-30] MEDS: SODIUM CHLORIDE 0.9% IV 1,000 ML 70 ML IV CONT (21:10)
[2024-01-30] MEDS: MIDODRINE HCL 10 MG TABLET PO (22:40)
[2024-01-31] VITALS (23 sets, daily range): BP systolic 88–102; BP diastolic 63–78; PULSE 107–121; RESP 12–22; TEMP 36.4–37.2; O2SAT 95–100
[2024-01-31] MEDS: chlordiazePOXIDE (*CRX) 25 MG CAPSULE PO ×3 (00:34→18:03)
[2024-01-31] MEDS: HYDROmorphone HCL INJ (*CRX) 1 MG/ML SYR IV PUSH ×3 (00:34→08:40)
[2024-01-31] MEDS: ONDANSETRON INJ 4 MG/2 ML VIAL IV PUSH ×2 (00:34→10:06)
[2024-01-31 00:36] LABS: Glucose Point of Care 142 mg/dl (65-105)
[2024-01-31] MEDS: oxyCODONE HCL (*CRX) 5 MG TAB IR PO ×3 (02:53→20:47)
[2024-01-31] MEDS: LORazepam INJ (*CRX) 2 MG/ML VIAL IV PUSH ×3 (04:04→22:49)
[2024-01-31 04:59] LABS: Basophils Percent Auto 0.4 % (0.2-1.2); Eosinophils Absolute Auto 0.1 K/mm3 (0-0.3); Eosinophils Percent Auto 0.8 % (0-4.4); Hematocrit 32.7 % (42.0-52.0); Hemoglobin 10.5 g/dL (14.0-18.0); Immature Granulocyte Absolute 0.04 K/mm3 (0.00-0.031); Immature Granulocyte Percent A 0.4 % (0-0.5); Lymphocytes Absolute Auto 2.37 K/mm3 (0.9-3.2); Lymphocytes Percent Auto 22.4 % (18.3-44.2); Mean Corpuscular HGB Conc 32.1 g/dl (32-36); Mean Corpuscular Hemoglobin 31.9 pg (26-34); Mean Corpuscular Volume 99.4 fl (80-100); Mean Platelet Volume 10.3 fl (7.4-10.4); Monocytes Absolute Auto 1.9 K/mm3 (0.1-0.6); Monocytes Percent Auto 17.9 % (2.6-8.5); Neutrophils Absolute Auto 6.2 K/mm3 (1.3-6.7); Neutrophils Percent Auto 58.1 % (45.5-73.1); Platelet Count Result 156 k/mm3 (150-375); Red Blood Count 3.29 M/mm3 (4.6-6.20); Red Cell Distribution Width 16.6 % (11.5-14.5); White Blood Count 10.6 K/mm3 (4.5-10.0)
[2024-01-31 05:12] LABS: Alanine Aminotransferase 235 U/L (6-50); Albumin Level 3.4 g/dL (3.5-5.1); Alkaline Phosphatase 109 U/L (38-126); Anion Gap 6 mmol/L (4-12); Aspartate Amino Transferase 488 U/L (17-59); Bilirubin,Total 2.5 mg/dL (0.2-1.3); Blood Urea Nitrogen 17 mg/dL (9-20); Calcium 7.9 mg/dL (8.4-10.2); Carbon Dioxide 28 mmol/L (22-30); Chloride 98 mmol/L (98-107); Estimated CRCL calculation 123 ml/min; Estimated Glomerular Filt Rate > 60; Glucose 127 mg/dL (65-110); Magnesium 1.7 mg/dL (1.6-2.3); Phosphorus 3.5 mg/dL (2.5-4.5); Sodium 132 mmol/L (137-145)
[2024-01-31] MEDS: KETOROLAC 30 MG/ML VIAL (*BKC) IV PUSH (06:31)
[2024-01-31] MEDS: FOLIC ACID 1 MG/0.2 ML INJ IV PUSH (08:39)
[2024-01-31] MEDS: NICOTINE (*PBKC) 21 MG PATCH 1 PATCH TRANSDERM (08:39)
[2024-01-31] MEDS: MIDODRINE HCL 10 MG TABLET PO ×3 (08:39→18:03)
[2024-01-31] MEDS: PANTOPRAZOLE SODIUM IV 40 MG VIAL IV PUSH (08:40)
[2024-01-31] MEDS: THIAMINE HCL 200 MG/2 ML VIAL 100 MG IV PUSH (08:42)
--- NOTE | 2024-01-31 11:28 | PM.CNCAR ---
Assessment and Plan Assessment and plan (1) Heart failure with reduced ejection fraction: Code(s): I50.20 - Unspecified systolic (congestive) heart failure Status: Acute Assessment and Plan: 33-year-old male with alcoholism, pancreatitis with history of necrotizing pancreatitis, anxiety, tobacco and marijuana abuse. -patient has CHF with severely reduced ejection fraction; dilated LV most likely alcoholic cardiomyopathy given patient's history of heavy alcohol abuse. He has relatively lower blood pressures, therefore, will initiate guideline directed medical treatment gradually and as tolerated. Start empagliflozin, and low-dose metoprolol succinate with holding parameters (BB chosen as initial treatment due to relatively high heart rates). Other medications including ARNI and MRA if blood pressure remained stable. Spoke at length with the patient about his clinical condition and was strongly advised to stop alcohol consumption completely. -external wearable defibrillator-life vest at discharge. -outpatient follow-up. Repeat echo at least 3-6 months once patient has been on guideline medical treatment to reassess any improvement in LVEF. His candidacy for ICD placement be determined as an outpatient based on repeat echo results. (2) Alcoholic cardiomyopathy: Code(s): I42.6 - Alcoholic cardiomyopathy Status: Acute Assessment and Plan: Complete cessation of alcohol. Consult done. (3) Pancreatitis: Code(s): K85.90 - Acute pancreatitis without necrosis or infection, unspecified Status: Acute Assessment and Plan: Management as per primary team. 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 Young from the hospitalist team History of Present Illness History of Present Illness Consult date/time: 01/31/24 11:28 Requesting physician: Monroe Young MD Consult reason: Other (Cardiomyopathy) Reason For Visit: Choleocystitis Narrative: DATE OF CONSULT: 01/31/2024 REASON FOR CONSULT: Cardiomyopathy REQUESTING PHYSICIAN: Dr. Young CHIEF COMPLAINT: Shortness of breath, abdominal pain HPI: 33-year-old male with alcoholism, pancreatitis with history of necrotizing pancreatitis, anxiety, tobacco and marijuana abuse. Patient presented to [facility] Emergency Room on 01/30/2024 with complaints of abdominal pain, worsening shortness of breath and chest discomfort. Patient has history of atrial alcohol abuse. He started drinking when he was 16-year-old. He drinks 4 to 5 times a week, 750 cc bottle of vodka 4-5 times a week. He also smokes cigarettes and marijuana. He has history of pancreatitis. Patient states that he tried rehab in [place] and [place] earlier. He has been experiencing recurrent abdominal discomfort, dyspnea on exertion and chest pain worse with deep inspiration. No known prior cardiac history. No known family history of cardiomyopathy. EKG on my personal interpretation showed sinus tachycardia, heart rate 119 beats per minute, incomplete RBBB, delayed R-wave progression. Troponins minimally elevated. NT proBNP is significantly elevated at [id number]. Echo from 01/20/2024 reportedly showed severe LV enlargement, severe global LV systolic dysfunction, LVEF 15-20%; no significant valvular abnormality. CTA chest negative for PE. CT abdomen reported Pancreatitis involving the head and body with the collection seen in the tail of the pancreas area. Lipase not elevated. Review of Systems Review of Systems: General: Positive for fatigue Psychological: Positive for anxiety, depression Ophthalmic: negative for loss of vision ENT: Negative for epistaxis,
[2024-01-31 12:00] LABS: Glucose Point of Care 91 mg/dl (65-105)
[2024-01-31] MEDS: EMPAGLIFLOZIN 10 MG TABLET PO (13:49)
--- NOTE | 2024-01-31 15:04 | PM.CNGS ---
Assessment and Plan Assessment and plan (1) Abnormal CT scan, gallbladder: Code(s): R93.2 - Abnormal findings on diagnostic imaging of liver and biliary tract Status: Acute Assessment and Plan: Gallbladder appears and emesis and inflamed due to the adjacent pancreatitis. No indication that cholecystitis is the inciting disease entity or is even coexisting with his severe pancreatitis. No indication for gallbladder surgery or other gallbladder evaluation testing. Thank you for asking me to see this patient in consultation. (2) Acute on chronic pancreatitis: Code(s): K85.90 - Acute pancreatitis without necrosis or infection, unspecified; K86.1 - Other chronic pancreatitis Status: Acute Assessment and Plan: Another recurrence of severe pancreatitis. Should surgery be needed, patient would have to transfer to a tertiary care facility where both endoscopic and surgical treatment of advanced or complicated pancreatitis are commonly treated. (3) Alcoholism: Code(s): F10.20 - Alcohol dependence, uncomplicated Status: Chronic Assessment and Plan: Advised patient of the importance of alcohol abstinence. History of Present Illness Consult details Consult date: 01/31/24 (929 pt was seen) Reason for consult: other (Abnormal CT scan of gallbladder) Requesting physician: Pierre Trevizo MD Narrative: Patient is a 33-year-old man with longstanding problems with alcoholism and pancreatitis. Patient reports that previously, he was at [facility], and a pancreatic cyst gastrostomy was placed to drain a pancreatic pseudocyst. Patient has never had abdominal surgery. He had an episode of severe pancreatitis. On December [address] scan suggested acute necrotic pancreatitis and the patient was on this occasion transferred to [facility]. He has never had procedures other than the cyst gastrostomy. He continues to drink alcohol regularly. He reports that the day prior to his admission he drank 750 cc of vodka. He started having epigastric pain that night. The pain got worse and he came to the emergency room he yesterday. He was noted to have severe epigastric tenderness and CT scan again showed pancreatitis with fluid in the tail of the pancreas, a little more fluid than had been there on December 01. The initial CT scan showed the gallbladder distension and possible wall thickening suggesting the potential of cholecystitis. Ultrasound of the gallbladder done yesterday showed also a thickened wall but the common bile duct was 3.3 mm and there were no stones present in the gallbladder on either study. Patient is admitted now for his recurrent acute on chronic pancreatitis. I was asked to see him regarding the possibility of cholecystitis. Review of Systems Review of Systems: All systems reviewed & are unremarkable except as noted in HPI and below (HPI and those items noted below) Constitutional: Constitutional: Denies chills and Denies fever(s) Cardiovascular: Cardiovascular: Denies chest pain, Denies diaphoresis, Denies dyspnea and Denies paroxysmal nocturnal dyspnea Respiratory: Respiratory: Denies chest congestion, Denies cough and Denies dyspnea Integumentary/Breasts: Skin/Breast: Denies lesions and Denies rash PMFSH Past Medical History Medical History Alcoholism Anxiety Hepatic steatosis Pancreatitis hx of necrotizing pancreatitis November 2023 Hx of pseudocyst that was drained Surgical History Surgical History History of ankle surgery Family History Family History Father Heart disease Hypertension Social History Social History Social History: Smokes 1ppd x16 years. Alcohol use as above. Drug use hx as above Full code Surrogate decision maker
--- NOTE | 2024-01-31 15:28 | PM.IMPN ---
Progress Note: A&P Assessment and Plan (1) Pancreatitis: Code(s): K85.90 - Acute pancreatitis without necrosis or infection, unspecified Status: Acute Assessment and Plan: Patient presents with abdominal pain found to have pancreatitis by CT scan. Lipase is normal. Most likely pancreatitis related to alcoholism since he has long history of alcoholism and history of pancreatitis from this. There is fluid around the gallbladder so consider acute cholecystitis RUQ US showing thickened GB wall. TG level normal. General surgery consult. Pain better. LFTs higher but possibly related to hepatic congestion. Consider MRCP IV fluids stopped due to the CMP. Wean narcotics. Start diet. (2) Heart failure with reduced ejection fraction: Code(s): I50.20 - Unspecified systolic (congestive) heart failure Status: Acute Assessment and Plan: Patient with acute systolic CHF. Echo showing severely enlarged LV with severely globally reduced fxn (EF 15-20%), trace valvular disease and no pulmonary HTN. Suspect related to alcohol Cardiology consulted and discussed. Troponin peaked at 0.46. BNP 11K. [place] elevated Trop related to NICMP and CHF. Stopped IV fluids today. Continue Midodrine for soft BP. Start and advance guideline directed medical treatment gradually and as tolerated. Empagliflozin and low-dose metoprolol succinate started Cardiology ordered external wearable defibrillator-life vest at discharge. Lasix when/if BP could tolerate (3) Alcohol withdrawal: Code(s): F10.939 - Alcohol use, unspecified with withdrawal, unspecified Status: Acute Assessment and Plan: Patient mildly tremulous. He did drink vodka 750 mL the day before admission. Alcohol level<10. UDS positive for opiates but he is receiving opiates here. CIWA protocol started and still running 03-20 today Continue scheduled Librium Continue thiamine and folate. (4) Chest pain: Code(s): R07.9 - Chest pain, unspecified Status: Acute Assessment and Plan: Patient with pleuritic chest pain probably related to pancreatitis but also with possible hypoxia (arrived on 4L O2 but no documented hypoxia) and tachycardia. Echo as above. DDimer positive but LE dopplers and CTA chest negative for VTE No coronary artery calcifications. Small pericardial effusion noted. Consider pericarditis but felt less likely since EKG and symptoms not consistent with this. Follow (5) Elevated liver enzymes: Code(s): R74.8 - Abnormal levels of other serum enzymes Status: Acute Assessment and Plan: LFTs noted. [place] related to the pancreatitis and/or from the hepatic steatosis and/or alcoholic hepatitis. RUQ US as above. Hepatitis panel negative. Acetaminophen level <10 Could be also related to hepatic congestion from poor cardiac function IV fluids stopped. Follow (6) Weight loss: Code(s): R63.4 - Abnormal weight loss Status: Acute Assessment and Plan: Patient with extensive weight loss over the past 6 months. Most likely related to his alcohol use and frequent hospitalizations for pancreatitis. He also may have malabsorption issues due to his pancreatitis. PT/INR and Vit D level okay to suggest good absorptive function TSH normal Dietary consult (7) Alcoholism: Code(s): F10.20 - Alcohol dependence, uncomplicated Status: Chronic Assessment and Plan: Patient was educated about the benefits of abstaining from alcohol use. Care coordination to provide information about alcohol rehab. (8) Anxiety: Code(s): F41.9 - Anxiety disorder, unspecified Status: Acute Assessment and Plan: As above. Librium showed cover any symptoms of anxiety. (9) Tobacco abuse: Code(s): Z72.0 - Tobacco use Status: Acute Assessment and Plan: Patient was educated about the benefits of smoking cessation but did recommend that h
[2024-01-31 16:06] LABS: Lipase 19 U/L (23-300)
[2024-01-31] MEDS: ENOXAPARIN 40 MG/0.4 ML SYRINGE SUB-Q (18:03)
[2024-01-31] MEDS: HYDROmorphone HCL INJ (*CRX) 1 MG/ML SYR 0.5 MG IV PUSH (18:05)
[2024-01-31 19:19] LABS: Glucose Point of Care 146 mg/dl (65-105)
[2024-01-31 23:40] LABS: Glucose Point of Care 132 mg/dl (65-105)
[2024-02-01] VITALS (36 sets, daily range): BP systolic 73–114; BP diastolic 51–76; PULSE 67–136; RESP 18–39; TEMP 36.4–38.2; O2SAT 90–99
[2024-02-01] MEDS: HYDROmorphone HCL INJ (*CRX) 1 MG/ML SYR 0.5 MG IV PUSH ×2 (00:05→05:09)
[2024-02-01] MEDS: chlordiazePOXIDE (*CRX) 25 MG CAPSULE PO ×2 (00:05→05:09)
[2024-02-01 06:58] LABS: Basophils Percent Auto 0.2 % (0.2-1.2); Eosinophils Percent Auto 0.2 % (0-4.4); Hematocrit 35.1 % (42.0-52.0); Hemoglobin 11.4 g/dL (14.0-18.0); Immature Granulocyte Absolute 0.07 K/mm3 (0.00-0.031); Immature Granulocyte Percent A 0.7 % (0-0.5); Lymphocytes Absolute Auto 1.69 K/mm3 (0.9-3.2); Lymphocytes Percent Auto 16.2 % (18.3-44.2); Mean Corpuscular HGB Conc 32.5 g/dl (32-36); Mean Corpuscular Hemoglobin 32.8 pg (26-34); Mean Corpuscular Volume 100.9 fl (80-100); Mean Platelet Volume 11.1 fl (7.4-10.4); Monocytes Absolute Auto 1.4 K/mm3 (0.1-0.6); Monocytes Percent Auto 13.2 % (2.6-8.5); Neutrophils Absolute Auto 7.3 K/mm3 (1.3-6.7); Neutrophils Percent Auto 69.5 % (45.5-73.1); Nucleated Red Blood Cells Perc 0.2 % (0.0-0.2); Platelet Count Result 178 k/mm3 (150-375); Red Blood Count 3.48 M/mm3 (4.6-6.20); Red Cell Distribution Width 16.5 % (11.5-14.5); White Blood Count 10.4 K/mm3 (4.5-10.0)
[2024-02-01 07:18] LABS: Albumin Level 3.7 g/dL (3.5-5.1); Alkaline Phosphatase 262 U/L (38-126); Anion Gap 13 mmol/L (4-12); Bilirubin,Total 3.9 mg/dL (0.2-1.3); Blood Urea Nitrogen 24 mg/dL (9-20); Calcium 8.1 mg/dL (8.4-10.2); Carbon Dioxide 21 mmol/L (22-30); Chloride 96 mmol/L (98-107); Estimated CRCL calculation 126 ml/min; Estimated Glomerular Filt Rate > 60; Glucose 127 mg/dL (65-110); Potassium 5.3 mmol/L (3.4-5.0); Sodium 130 mmol/L (137-145)
[2024-02-01] MEDS: oxyCODONE HCL (*CRX) 5 MG TAB IR PO (08:33)
[2024-02-01] MEDS: EMPAGLIFLOZIN 10 MG TABLET PO (08:33)
[2024-02-01] MEDS: METOPROLOL SUCCINATE EXT REL 25 MG TABCR PO (08:35)
[2024-02-01] MEDS: ENOXAPARIN 40 MG/0.4 ML SYRINGE SUB-Q (08:35)
[2024-02-01] MEDS: MIDODRINE HCL 10 MG TABLET PO (08:36)
[2024-02-01] MEDS: PANTOPRAZOLE SODIUM IV 40 MG VIAL IV PUSH (08:36)
--- NOTE | 2024-02-01 08:38 | ECG_ITS ---
Test Date: 2024-02-01 08:48:37 Measurements Intervals [place] Rate: 123 P: 5 MI: 151 QRS: 44 QRSD: 121 T: 8 QT: 315 QTc: 452 Interpretive Statements SINUS TACHYCARDIA INCOMPLETE RIGHT BUNDLE BRANCH BLOCK DELAYED PRECORDIAL R/S TRANSITION LOW VOLTAGE IN DIFFUSE LEADS BORDERLINE T WAVE ABNORMALITY- INF/LAT LEADS BASELINE WANDER- V4-V6 ABNORMAL ECG Compared to ECG 01/30/2024 13:51:16 NO SIGNIFICANT CHANGE Electronically Signed On 02-01-2024 09:01:06 CDT by Watson Sandoval D.O.
[2024-02-01] MEDS: THIAMINE HCL 200 MG/2 ML VIAL 100 MG IV PUSH (08:40)
[2024-02-01 08:53] LABS: Alanine Aminotransferase 1068 U/L (6-50); Aspartate Amino Transferase 3083 U/L (17-59)
[2024-02-01 11:27] LABS: Anion Gap 16 mmol/L (4-12); Blood Urea Nitrogen 25 mg/dL (9-20); Calcium 8.1 mg/dL (8.4-10.2); Carbon Dioxide 16 mmol/L (22-30); Chloride 97 mmol/L (98-107); Estimated CRCL calculation 113 ml/min; Estimated Glomerular Filt Rate > 60; Glucose 111 mg/dL (65-110); Potassium 6.2 mmol/L (3.4-5.0); Sodium 129 mmol/L (137-145)
[2024-02-01] MEDS: ALBUTEROL SULFATE NEB 2.5 MG/3 ML INH INHALATION (12:12)
--- NOTE | 2024-02-01 12:20 | PM.IMPN ---
Progress Note: A&P Assessment and Plan (1) Shock: Code(s): R57.9 - Shock, unspecified Status: Acute Assessment and Plan: BP dropped this morning to 78/57. [place] related to either cardiogenic shock or hypovolemia if he is third spacing fluid from his pancreatitis. Consider sepsis either from PNA or ascending cholangitis. No fevers, ductal dilatation and WBC remains stable at 10K making infectious etiology less likely. Discussed with cardiology and with senior process control tech. Plan to move patient to ICU and start Dopamine. CT scan to be repeated once he is more stable. May need mechanical ventilation. (2) Hyperkalemia: Code(s): E87.5 - Hyperkalemia Status: Acute Assessment and Plan: Potassium elevated this morning and climbed to 6.2 on repeat. Sodium also low to suggest hypoadrenalism. Hypoperfusion vs overwhelming sepsis. Not on MICHAELA/ARB. Appropriate treatment ordered. Lasix ordered when BP was okay but stopped when lower BP noted. Hypoadrelaism could explain his profound weakness. Cortisol ordered. Stress dose steroids ordered. (3) Pancreatitis: Code(s): K85.90 - Acute pancreatitis without necrosis or infection, unspecified Status: Acute Assessment and Plan: Patient presents with abdominal pain found to have pancreatitis by CT scan. Lipase is normal. Most likely pancreatitis related to alcoholism since he has long history of alcoholism and history of pancreatitis from this. There is fluid around the gallbladder so consider acute cholecystitis but felt less likely. RUQ US showing thickened GB wall. TG level normal. General surgery consulted. LFTs higher but possibly related to hepatic congestion. Consider MRCP to exclude choledocholithiasis. IV fluids stopped due to the CMP but now BP soft. As above (4) Heart failure with reduced ejection fraction: Code(s): I50.20 - Unspecified systolic (congestive) heart failure Status: Acute Assessment and Plan: Patient with acute systolic CHF. Echo showing severely enlarged LV with severely globally reduced fxn (EF 15-20%), trace valvular disease and no pulmonary HTN. Suspect related to alcohol Cardiology consulted and discussed. Troponin peaked at 0.46. BNP 11K. [place] elevated Trop related to NICMP and CHF. Patient with acute systolic CHF. Stopped IV fluids today. Continue Midodrine for soft BP. Start and advance guideline directed medical treatment gradually and as tolerated. Empagliflozin and low-dose metoprolol succinate was started but held now Cardiology will order external wearable defibrillator-life vest at discharge. Lasix when/if BP could tolerate Dopamine for cardiogenic shock (5) Alcohol withdrawal: Code(s): F10.939 - Alcohol use, unspecified with withdrawal, unspecified Status: Acute Assessment and Plan: Patient was mildly tremulous. He did drink vodka 750 mL the day before admission. Alcohol level<10. UDS positive for opiates but he is receiving opiates here. CIWA protocol started and still running 7-10 today Continue thiamine and folate. (6) Hyponatremia: Code(s): E87.1 - Hypo-osmolality and hyponatremia Status: Acute Assessment and Plan: As above (7) Chest pain: Code(s): R07.9 - Chest pain, unspecified Status: Acute Assessment and Plan: Patient with pleuritic chest pain with possible hypoxia (arrived on 4L O2 but no documented hypoxia) and tachycardia. Echo as above. DDimer positive but LE dopplers and CTA chest negative for VTE No coronary artery calcifications. Small pericardial effusion noted. Consider pericarditis but felt less likely since EKG and symptoms not consistent with this. The enlarged heart itself could result in positional pleuritic chest pain. Follow (8) Elevated liver enzymes: Code(s): R74.8 - Abnormal levels of other serum enzymes Status: Acute Assessment and Plan: LFTs no
--- NOTE | 2024-02-01 12:33 | PM.PNCARD ---
Progress Note: A&P Assessment and Plan (1) Heart failure with reduced ejection fraction: Code(s): I50.20 - Unspecified systolic (congestive) heart failure Status: Acute Assessment and Plan: 33-year-old male with alcoholism, pancreatitis with history of necrotizing pancreatitis, anxiety, tobacco and marijuana abuse. -patient has CHF with severely reduced ejection fraction; dilated LV most likely alcoholic cardiomyopathy given patient's history of heavy alcohol abuse. Due to significant hypotension and hypoperfused state, patient being transferred to ICU for further management including inotropic/pressor support. Discussed with primary team and ICU. Due to worsening abdominal pain, repeat CT scan abdomen/pelvis. Patient has hyperkalemia with no obvious etiology at this time. Check for hypoadrenal state. GDMT on hold for now due to hemodynamic instability. Previously, spoke at length with the patient about his clinical condition and was strongly advised to stop alcohol consumption completely. -external wearable defibrillator-life vest at discharge. -outpatient follow-up. Repeat echo at least 3-6 months once patient has been on guideline medical treatment to reassess any improvement in LVEF. His candidacy for ICD placement be determined as an outpatient based on repeat echo results. (2) Alcoholic cardiomyopathy: Code(s): I42.6 - Alcoholic cardiomyopathy Status: Acute Assessment and Plan: Complete cessation of alcohol. (3) Pancreatitis: Code(s): K85.90 - Acute pancreatitis without necrosis or infection, unspecified Status: Acute Assessment and Plan: Management as per primary team. 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 Patient was hypotensive. ICU physician consulted, plans transfer patient to ICU. Review of Systems Review of Systems: General: Positive for fatigue Psychological: Positive for anxiety, depression Ophthalmic: negative for loss of vision ENT: Negative for epistaxis, headaches Allergy and immunology: Negative for hives, nasal congestion Hematologic and lymphatic: Negative for overt bleeding problems Endocrine: Negative for hot flashes, palpitations Respiratory: Negative for cough, hemoptysis Cardiovascular: Positive for chest pain with pleuritic features; dyspnea on exertion, orthostatic dizziness without syncope Gastrointestinal: Positive for abdominal pain Musculoskeletal: Negative for myalgia, joint pains Neurological: Negative for weakness Dermatological: Negative for rash, skin discoloration Exam Narrative: PHYSICAL EXAMINATION: GENERAL: Ill-appearing young male MENTAL STATUS: Anxious EYES: Extraocular movements intact, no pallor EARS: External ears appear normal, hearing grossly normal NOSE: Normal and patent, no discharge MOUTH: Mucous membranes moist, tongue normal NECK: Supple, no JVD CHEST: clear to auscultation HEART: Normal rate, tachycardic, S3 gallop ABDOMEN: Generalized tenderness, predominantly in the right upper quadrant NEUROLOGICAL: somnolent MUSCULOSKELETAL: No major deformity, no amputation EXTREMITIES: No pedal edema, no clubbing, no cyanosis SKIN: no rash on the exposed area, no cyanosis PSYCHIATRIC: Normal mood, appropriate affect Objective Data Vital Signs Vital Signs: Vital Signs - 24 hr 01/31/24 14:00 01/31/24 16:00 01/31/24 16:00 Temperature 36.8 C Pulse Rate 115 H Pulse Rate [Monitor] 107 H Respiratory Rat
[2024-02-01] MEDS: DOPamine 400 MG/D5W 250 ML 400 MG/250 ML BAG 14.74 MG IV CONT (12:35)
[2024-02-01] MEDS: ETOMIDATE 20 MG/10 ML AMPUL IV PUSH (12:40)
[2024-02-01] MEDS: ROCURONIUM BROMIDE 50 MG/5 ML VIAL IV PUSH (12:40)
[2024-02-01] MEDS: PHENYLEPHRINE 1,000 MCG/10 ML SYRINGE 100 MCG IV PUSH (12:57)
[2024-02-01] MEDS: MIDAZOLAM 100MG/NS 100ML(*CRX) 100 MG/100 ML BAG IV CONT (13:00)
[2024-02-01] MEDS: FENTANYL 2,500MCG/NS250ML(*CRX 2,500 MCG/250 ML BAG IV CONT (13:00)
[2024-02-01] MEDS: NOREPINEPHRINE 8 MG/D5W 250 ML 8 MG/250 ML BAG 18.75 MG IV CONT (13:05)
[2024-02-01] MEDS: MIDAZOLAM HCL (*CRX) 2 MG/2 ML VIAL IV PUSH ×2 (13:27→14:25)
[2024-02-01] MEDS: fentaNYL CITRATE INJ (*CRX) 100 MCG/2 ML VIAL 50 MCG IV PUSH (13:27)
--- NOTE | 2024-02-01 13:32 | PC.NURSE ---
Called Thu at 0845, updating of patient complaining of chest pain, abdominal pain, and head ache. EKG was ordered, and thu advised that patient was having pain from pericarditis, and to have patient to lie on right lateral position, and to refer to hospitalist josh for pain. Dr Young was called at 0900, and per Dr. Young advised to give oxycodone for pain at this time. @ 11:34am Dr. Young was called of critical lab value of 6.2,advised he will submit new orders. 11:45am [employer] notified me of BP 78/57, 11:55am a manual BP of BP 79/50, and now receiving new orders for Sodium bicarb, calcium, and lokelma received. @1200am Chest xray at bedside, Dr. Guzman at bedside, advising to hold new orders, and patient will be admitted to ICU. @12:20 patient moved to ICU. Patient intubated and central lines placed at this time.
--- NOTE | 2024-02-01 13:42 | WPDPROCEDUR ---
Procedures Intubation Intubation Date: 02/01/24 Intubation Time: 12:30 A pre-procedural Time-Out was completed immediately before starting the procedure and confirmed: Patient Identification, Site, Procedure, Patient Position and the Availability of Requisite Equipment: Yes Sedative: etomidate Paralytic: rocuronium Laryngoscope: fiber optic video scope Assist device used: fiber optic device ET tube size: 8 Tube secured depth (cm): 24 Tube secured location: lips Tube placement confirmation: visualized tube passing through cords, equal breath sounds bilaterally, no breath sounds over epigastrium and confirmation by capnometry Patient tolerated procedure: well Intubation complications: none
--- NOTE | 2024-02-01 13:43 | P.PCNBED_ITS ---
Procedures Central Line Placement Right IJ: Central Line Date: 02/01/24 Central Line Time: 12:45 Discussed w/ the patient/family/POA,the placement of a central venous catheter, including its clinical necessity/indication & associated potential risks, benifits and alternatives.: Yes The patient/family/POA understand(s) and acknowledge(s) the need to proceed with central venous catheter insertion as an important element of the patient's clinical management.: Yes Consent: I have discussed with the patient and/or surrogate, the non-emergent placement of a central venous catheter, including its clinical necessity/indication and associated potential risks and complications. The patient and/or surrogate understand(s) and acknowledge(s) the need to proceed with central venous catheter insertion as an important element of the patient's clinical management. Time Out Performed: Yes Patient Position: supine Patient placed on monitor/pulse ox: Yes Provider Prep: mask, sterile gown, sterile gloves, Max. sterile barrier precautions, cap and hand hygiene with conventional soap/water or alcohol based hand rub Central line prep: 2% Chlorhexidine scrub Local anesthesia used: lidocaine 1% Amount of anesthesia used (ml): 3 Sterile US Technique with sterile gel/sterile probe covers: Yes Central line lumen inserted: triple Turkmen: 7 Length (cm): 16 Depth of Insertion (cm): 16 Post Procedure: sutured in place, good blood return, all ports aspirated, flushed, capped, transparent dressing, hemostatic product, antimicrobial product, securement product and aseptic technique maintained throughout procedure Post procedure x-ray: tip of catheter in good position and no pneumothorax seen Complications: none
--- NOTE | 2024-02-01 13:45 | P.PCNBED_ITS ---
Procedures Arterial Line Arterial Line Date: 02/01/24 Arterial Line Time: 13:05 Patient/family/POA and/or understands and acknowledges the need to proceed with the arterial catheter insertion as an important element of the patient's clinical management.: Yes Time Out Performed: Yes Patient Position: supine Wire Communications Engineer Prep: sterile gown, sterile gloves, mask and hat Site: left and femoral Site Prep: chlorhexidine Skin Anesthesia: 1% lidocaine Technique used: ultrasound-guided Size (Gauge): 14 Length: 12 cm Closure/Dressing: suture, transparent dressing, hemostatic product, antimicrobial product and securement product Patient tolerated procedure: well Complications: none
--- NOTE | 2024-02-01 13:46 | WPDCNINT ---
Assessment and Plan Assessment and plan (1) Cardiogenic shock: Code(s): R57.0 - Cardiogenic shock Status: Acute Assessment and Plan: Hypotensive, cool extremities, tachycardia, elevated liver enzymes -patient started on dopamine for ionotropic support and Levophed for pressor support -maintain MAP > 65 mmHg at all times or SBP > 100 mmHg at all times -started stress dose steroids -continue to hold all antihypertensives -01/30/2024 blood cultures negative x2 -will obtain blood cultures given fevers and shock -started patient on meropenem(01/31) for possible abdominal pathology and vancomycin (01/31) -currently on Levophed 01/30/2024: Echocardiogram Summary 1. Definity contrast administered improved wall motion interpretation. 2. Left ventricular chamber dimension is severely enlarged. 3. Left ventricular systolic function is severely globally reduced, estimated at 15-20%. 4. The left ventricular diastolic function is normal. 5. E/e' 7 is not elevated. 6. There is trace mitral valve regurgitation. 7. There is trace tricuspid valve regurgitation. 8. No pulmonary hypertension, estimated pulmonary arterial systolic pressure is 18 mmHg. 9. There is trace pulmonic regurgitation. 10. There is trivial pericardial effusion (2) Acute hypoxic respiratory failure: Code(s): J96.01 - Acute respiratory failure with hypoxia Status: Acute Assessment and Plan: Acute hypoxic respiratory failure likely related to cardiogenic shock -01/31: intubated for impending respiratory failure, mottling of skin on lower extremities bilaterally, dusky looking appears -intubation was uneventful, currently on CMV mode of ventilation, peep of 8, 100% FiO2 -post intubation ABGs are pending -chest x-ray reviewed, likely pulmonary edema -sedated with fentanyl Versed infusion, maintain RASS of -2 (3) Elevated liver enzymes: Code(s): R74.8 - Abnormal levels of other serum enzymes Status: Acute Assessment and Plan: Significantly elevated LFTs likely related to shock liver -maintain SBP > 100 mmHg and mean arterial pressures > 65 mmHg (4) Pancreatitis: Code(s): K85.90 - Acute pancreatitis without necrosis or infection, unspecified Status: Acute Assessment and Plan: Patient presented with abdominal pain, CT abdomen pelvis on 01/29 showed pancreatitis involving the head and body with collection seen in the tail of the pancreas area. Fluid around the gallbladder with enhancement of the wall which may indicate cholecystitis. -surgery was consulted and was thought that the gallbladder appeared inflamed due to the adjacent pancreatitis. -patient complained of abdominal pain upon evaluation today, - patient is too unstable to go down for abdominal CT scan. -started on meropenem and vancomycin, cultures have been obtained as above (5) Hyperkalemia: Code(s): E87.5 - Hyperkalemia Status: Acute Assessment and Plan: Hyperkalemia could be related to adrenal insufficiency, patient has been started on stress dose steroids -also acidosis causing hyperkalemia -will treat hyperkalemia with IV insulin, D50, bicarb, Lokelma (6) Alcoholic cardiomyopathy: Code(s): I42.6 - Alcoholic cardiomyopathy Status: Acute Assessment and Plan: Alcoholic cardiomyopathy with EF of 15-20% on echocardiogram as mentioned above -appreciate cardiology evaluation recommendation -HFrEF: Most likely related to alcoholic cardiomyopathy. Will hold all GDMT meds for now, discussed with Cardiology Discussed with [facility] cake cutter machine, patient may benefit from assist device support. Patient has been accepted to [facility], cardiac ICU. Dr. Santos is the attending Plan DVT prophylaxis: Lovenox Stress ulcer prophylaxis: Protonix Nutrition: NPO Code Status: Full code Critical Care Time Spent: 84 minutes Discussed with [facility] BRAD
[2024-02-01] MEDS: SODIUM BICARBONATE 8.4% 50 MEQ/50 ML SYRINGE 100 MEQ IV PUSH (13:53)
[2024-02-01 13:55] LABS: Basophils Percent Auto 0.2 % (0.2-1.2); Hemoglobin 10.8 g/dL (14.0-18.0); Immature Granulocyte Absolute 0.13 K/mm3 (0.00-0.031); Lymphocytes Absolute Auto 1.02 K/mm3 (0.9-3.2); Lymphocytes Percent Auto 7.9 % (18.3-44.2); Mean Corpuscular HGB Conc 32.7 g/dl (32-36); Mean Corpuscular Hemoglobin 32.4 pg (26-34); Mean Corpuscular Volume 99.1 fl (80-100); Mean Platelet Volume 11.3 fl (7.4-10.4); Monocytes Absolute Auto 1.7 K/mm3 (0.1-0.6); Neutrophils Absolute Auto 10.1 K/mm3 (1.3-6.7); Neutrophils Percent Auto 77.9 % (45.5-73.1); Nucleated Red Blood Cells Perc 0.2 % (0.0-0.2); Platelet Count Result 166 k/mm3 (150-375); Red Blood Count 3.33 M/mm3 (4.6-6.20); Red Cell Distribution Width 16.4 % (11.5-14.5); White Blood Count 12.9 K/mm3 (4.5-10.0)
[2024-02-01 14:05] LABS: INR 2.4; Prothrombin Time 26.5 Seconds (11.1-14.7)
[2024-02-01 14:06] LABS: Partial Thromboplastin Time 50.2 Seconds (22.3-36.8)
[2024-02-01 14:07] LABS: Magnesium 2.1 mg/dL (1.6-2.3); Phosphorus 5.6 mg/dL (2.5-4.5)
[2024-02-01 14:14] LABS: Albumin Level 3.5 g/dL (3.5-5.1); Alkaline Phosphatase 243 U/L (38-126); Anion Gap 22 mmol/L (4-12); Bilirubin,Total 5.2 mg/dL (0.2-1.3); Blood Urea Nitrogen 26 mg/dL (9-20); Carbon Dioxide 9 mmol/L (22-30); Chloride 97 mmol/L (98-107); Creatine Kinase 396 U/L (55-170); Estimated CRCL calculation 102 ml/min; Estimated Glomerular Filt Rate > 60; Glucose 147 mg/dL (65-110); Potassium 5.4 mmol/L (3.4-5.0); Sodium 128 mmol/L (137-145)
[2024-02-01 14:16] LABS: Lactic Acid Reflex 8.6 mmol/L (0.7-2.0)
[2024-02-01 14:18] LABS: Alanine Aminotransferase 2003 U/L (6-50)
[2024-02-01] MEDS: fentaNYL CITRATE INJ (*CRX) 100 MCG/2 ML VIAL IV PUSH (14:30)
[2024-02-01] MEDS: HYDROCORTISONE SODIUM SUCCINATE 100 MG/2 ML VIAL IV PUSH (14:33)
[2024-02-01 14:35] LABS: CRP 34.7 mg/dL (<1.0)
[2024-02-01] MEDS: ALBUMIN HUMAN 25% 25 GM/100 ML 100 ML IVPB (14:36)
[2024-02-01] MEDS: VASOPRESSIN INJ 100 UNITS in DEXTROSE 5% 95 ML IV CONT (14:46)
[2024-02-01 14:49] LABS: Troponin I 0.352 ng/mL (0.000-0.034)
[2024-02-01] MEDS: MEROPENEM 1 GM/NS 100 ML 1 GM/100 ML BAG IVPB (14:51)
[2024-02-01 14:52] LABS: Aspartate Amino Transferase 6778 U/L (17-59)
[2024-02-01 15:01] LABS: Alveolar/Arterial O2 Gradient 580.3 mmHg; Base Excess ABG -14.7 mEq/l (+/-2.0); Fractional Inspired Oxygen 100 %; HCO3 ABG 11.8 mEq/l (22.0-26.0); Oxygen Content ABG 14.8 %vol (16.0-22.0); Oxygen Saturation ABG 96.6 % (95.0-100.0); Oxyhemoglobin 95.8 % THb (90.0-100.0); PO2 ABG 102.7 mmHg (80.0-100.0); PO2 FiO2 Ratio Arterial Blood 1.03 %; Total Hemoglobin 10.9 g/dL (12.0-18.0)
[2024-02-01] MEDS: INSULIN HUMAN REGULAR (*BKC) 100 UNITS/ML 10 UNITS IV PUSH (15:02)
[2024-02-01 15:03] LABS: Device VENTILATOR; Site Drawn ARTLINE; pH ABG 7.212 (7.350-7.450)
[2024-02-01 15:04] LABS: MRSA (PCR) NOT DETECTED (NOT DETECTE)
[2024-02-01 15:05] LABS: Arterial Blood Gas PEEP 8 cmH2O; Arterial Blood Gas Pressure Support 0 cmH2O; Arterial Blood Gas Tidal Volume 500 ml; Arterial Blood Gas Vent Mode CMV; Arterial Blood Gas Ventilator rate 22 /MIN
[2024-02-01 15:06] LABS: Ammonia 48 umol/L (9-30)
[2024-02-01] MEDS: DEXTROSE 50% 25 GM/50 ML SYRINGE IV PUSH (15:06)
[2024-02-01 15:10] LABS: Glucose Point of Care 127 mg/dl (65-105)
[2024-02-01] MEDS: PHENYLEPHRINE HCL INJ 50 MG in DEXTROSE 5% IN WATER 250 ML/245 ML BAG 12 ML IV CONT (15:24)
--- NOTE | 2024-02-01 16:50 | PC.NURSE ---
Pt accepted and on the way to [facility]. Left via helicoptor at 1630. Arterial line and central line present and intact. ET tube placement confirmed, and ventilator settings verified between both vents. All drips infusing at current rate confirmed
[2024-02-01 16:53] LABS: Reflex Lactic Acid Yes or No Add Lactic
--- NOTE | 2024-02-01 17:15 | PC.NURSE ---
rei in icu 9, off our monitor 0259, all drips and sedation sent with airevac, report given to MADHURI Walters at [facility]. departed at 1630
[2024-02-01 19:45] LABS: Glucose Point of Care 104 mg/dl (65-105)
--- NOTE | 2024-02-02 05:33 | P.CDI_ITS ---
CDI Query Clarification Request BMI: 22.9 Nutritional Diagnostic Statement: Please refer to the comprehensive nutrition assessment for further information. If you agree with diagnosis of Severe protein calorie malnutrition related to chronic loss of appetite, pain as evidenced by weight loss 15%/6 months (self- report); intakes <75% needs >1 month; moderate muscle wasting and fat loss. Please specify severity if known: * Mild * Moderate * Severe * Other/Unknown <Mary Ellen De Leon RN - Last Filed: 02/02/24 05:34> Clarified Diagnosis Clarified Diagnosis: Pls route this query to Dr. Young as My note does not contain protein calorie malnutrition Thank you <Mark Guzman MD - Last Filed: 02/04/24 09:54>
--- NOTE | 2024-02-02 06:47 | PM.TDS ---
Transfer Discharge Sum: Prov Provider Date of admission: 01/30/24 08:48 Primary care physician: An Kamara Admitting clinician: Ashley Coates DO Consults: 01/30/24 Care Coordination Consult Routine Reason for Consult:: Abuse Consult to Dietitian Routine Reason for Consult:: weight loss 01/30/24 12:53 Consult to Physician Routine Comment: Consulting Provider: Virgilio Perez call center nurse/MD group to consult: general surg Reason for consultation: possible cholecystitis Has provider been notified: Yes 01/30/24 20:42 Consult to Physician Routine Comment: Consulting Provider: Tony Mcelroy call center nurse/MD group to consult: cardiology Reason for consultation: severe cardiomyopathy Has provider been notified: Yes 01/31/24 11:52 Care Coordination Consult Routine Reason for Consult:: LifeVest 02/01/24 12:56 Consult to Physician Routine Comment: Consulting Provider: Mark Guzman call center nurse/MD group to consult: icu bath steward Reason for consultation: shock Has provider been notified: Yes DS: Admitting Diagnosis Discharge Date 02/01/24 Admitting Diagnosis Abdominal pain DS: Discharge Diagnosis Discharge Diagnosis (1) Shock: Code(s): R57.9 - Shock, unspecified Status: Acute (2) Hyperkalemia: Code(s): E87.5 - Hyperkalemia Status: Acute (3) Pancreatitis: Code(s): K85.90 - Acute pancreatitis without necrosis or infection, unspecified Status: Acute (4) Heart failure with reduced ejection fraction: Code(s): I50.20 - Unspecified systolic (congestive) heart failure Status: Acute (5) Alcohol withdrawal: Code(s): F10.939 - Alcohol use, unspecified with withdrawal, unspecified Status: Acute (6) Hyponatremia: Code(s): E87.1 - Hypo-osmolality and hyponatremia Status: Acute (7) Chest pain: Code(s): R07.9 - Chest pain, unspecified Status: Acute (8) Elevated liver enzymes: Code(s): R74.8 - Abnormal levels of other serum enzymes Status: Acute (9) Weight loss: Code(s): R63.4 - Abnormal weight loss Status: Acute (10) Alcoholism: Code(s): F10.20 - Alcohol dependence, uncomplicated Status: Chronic (11) Anxiety: Code(s): F41.9 - Anxiety disorder, unspecified Status: Acute (12) Tobacco abuse: Code(s): Z72.0 - Tobacco use Status: Acute (13) Hepatic steatosis: Code(s): K76.0 - Fatty (change of) liver, not elsewhere classified Status: Acute Transfer Discharge Sum: Med Medications Active and Home Medications: Home Medications clonazepam 1 mg tablet 1 mg PO BID PRN Anxiety 01/30/24 [History Confirmed 01/30/24] Transfer Discharge Sum: Hosp Hospital Course Hospital course: Douglas Wright is a 33yo male with hx of alcoholism and pancreatitis here for abdominal pain. Please see H&P for details. The following issues were addressed: (1) Shock: BP dropped on the morning of transfer to 78/57. [place] related to either cardiogenic shock or hypovolemia if he is third spacing fluid from his pancreatitis. Consider sepsis either from PNA or ascending cholangitis. No fevers or ductal dilatation. WBC remained stable at 10K making infectious etiology less likely. Discussed with cardiology and with bath steward. Patient was moved to ICU and started on pressors. He was placed on mechanical ventilation. Given the severity of his condition, arrangements were made to transfer the patient to tertiary care center. He was transferred in critical but stable condition. (2) Hyperkalemia: Potassium elevated on the morning of transfer and climbed to 6.2 on repeat. Sodium also low to suggest hypoadrenalism. Hypoperfusion vs overwhelming sepsis. Not on MICHAELA/ARB. Appropriate treatment ordered. Lasix ordered when BP was okay but not given when discovered tp be hypotensive. Hypoadrenalism could explain his profound weakness. Cortisol orde
[2024-02-04 10:14] LABS: Vitamin D 1,25 (OH)2 Total 16 pg/mL (18-72); Vitamin D2 1,25 (OH)2 <8 pg/mL; Vitamin D3 1,25 (OH)2 16 pg/mL
[2024-02-04 16:19] LABS: Pneumococcal Antigen Urine NOT DETECTED
[2024-02-10 20:53] LABS: Legionella pneumophila Ag Ur NOT DETECTED
== END 2024-02-01 16:45 | disposition short-term general hospital (02) | DRG 438 ==
LOC: ANHED 06:04 → ANHIMU 06:16 → ANHICU 02-03 13:02 → ANHIMU 02-03 13:02
PROVIDERS: Internal Medicine; Admitting Provider Internal Medicine; Emergency Provider Student in an Organized Health Care Education/Training Program; Visit Provider Internal Medicine
DX: K85.20 Alcohol induced acute pancreatitis without necrosis or infection (principal); I50.21 Acute systolic (congestive) heart failure; R57.1 Hypovolemic shock; R57.0 Cardiogenic shock; J96.01 Acute respiratory failure with hypoxia; K72.00 Acute and subacute hepatic failure without coma; E87.1 Hypo-osmolality and hyponatremia; F10.239 Alcohol dependence with withdrawal, unspecified; I42.6 Alcoholic cardiomyopathy; E27.40 Unspecified adrenocortical insufficiency; K86.1 Other chronic pancreatitis; E87.5 Hyperkalemia; R63.4 Abnormal weight loss; K76.0 Fatty (change of) liver, not elsewhere classified; F41.9 Anxiety disorder, unspecified; F17.210 Nicotine dependence, cigarettes, uncomplicated
CPT/HCPCS: 31500; 36415; 36600; 71045; 71275; 74177; 76705; 80048; 80053; 80074; 80307; 82140; 82306; 82533; 82550; 82607; 82652; 82746; 82805; 82810; 82948; 83605; 83690; 83735; 83880; 84100; 84443; 84478; 84484; 85018; 85025; 85046; 85380; 85610; 85652; 85730; 86140; 87040; 87449; 87641; 87899; 93005; 93970; 94002; 94640; 96374; 96375; 99285; A9270; C1751; C8929; J1170; J1171; J1265; J1650; J1720; J1815; J1885; J2060; J2185; J2250; J2371; J2405; J2470; J2543; J3010; J3411; J7030; J7060; J7120; P9047; Q9957; Q9967

== ENCOUNTER 2024-05-07 13:59 | Emergency (ER) | payer BC, SELFPAY | END 2024-05-07 14:20 | disposition left against medical advice (07) | PROVIDERS: PCP Nurse Practitioner Family | DX: Z53.21 Procedure and treatment not carried out due to patient leaving prior to being seen by health care provider (principal) | CPT/HCPCS: 99199 ==

== ENCOUNTER 2024-07-28 17:05 | Inpatient (IN) | payer BC, SELFPAY ==
[2024-07-28] VITALS (7 sets, daily range): BP systolic 104–115; BP diastolic 72–99; PULSE 112–130; RESP 15–25; TEMP 36.4–37.3; O2SAT 95–100; BMI 17.2
--- NOTE | ~2024-07-28 | XR_ITS ---
XR chest 1V portable Ordering provider: Gregor Saini MD History: 34 years Male with . cp . Comparison: February 01, 2024 FINDINGS: MEDIASTINUM: The cardiac silhouette is not enlarged. Right PICC line with the tip overlying superior vena cava. LUNGS: No infiltrates, effusions or pneumothorax. OTHER: No free air under the diaphragm. Old healed fracture in the left sixth rib. IMPRESSION: No acute cardiopulmonary pathology. Reviewed, dictated and finalized at location A.
--- NOTE | 2024-07-28 17:07 | ECG_ITS ---
Test Date: 2024-07-28 17:24:38 Measurements Intervals [place] Rate: 126 P: 13 MT: 127 QRS: 81 QRSD: 92 T: 30 QT: 335 QTc: 487 Interpretive Statements SINUS TACHYCARDIA LOW QRS VOLTAGE IN EXTREMITY LEADS [QRS DEFLECTION < 0.5 mV IN LIMB LEADS] NONSPECIFIC T-WAVE ABNORMALITY ABNORMAL RHYTHM ECG Compared to ECG 02/01/2024 08:48:37 no significant change Electronically Signed On 07-29-2024 10:46:32 CDT by Wilbert Humphreys M.D.
--- OUTSIDE RECORDS SUMMARY | 2024-07-28 17:23 | XMS_ITS | Encounter Summary ---
Author Organization [facility] Healthcare Address [address] [place] [address] Care Team Providers Care Twitchell Operator Name Role Phone Pelon Rodriguez MD Primary Care Provi panda Mary Ellen Mahmood MD Unavailable [phone] Simran Pruett Unavailable Unavailable Encounter Details Date Type Department Care Team (Late st Contact Info) Description 07/27/2024 Telephone [facility] Transplant Heart [address] [facility] [phone] [place] [address] Ginette Chavez, MADHURI Social History Tobacco Use Types Packs/Day Years Used Date Smoking Tobacco: Former Cigarettes Passive Smoke Exposure: Never Smokeless Tobacco: Former Sex and Gender Information Value Date Recorded Sex Assigned at Not on file 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 Gender Identity Not on file Sexual Orientation Not on file documented as of this encounter Miscellaneous Notes * Telephone Encounter - John Teixeira, MADHURI - 07/27/2024 2:10 PM CDT Spoke with pharmacy and let them know that the PA was approved, he said it went through on their end free of charge and they will take care of it and get it to the pt * Telephone Encounter - Martha Hunt - 07/27/2024 1:45 PM CDT Lewis: [id number] Ivabradine 5MG [facility] Status: approved Coverage start date: 07/27/2024 Coverage end date: 07/27/2025 * Telephone Encounter - Ginette Chavez RN - 07/27/2024 12:08 PM CDT PA Request Drug :Ivabradine Strength:5mg Directions:take one tablet (5mg) twice daily Supply:60 for 30 days DX :chronic systolic and diastolic heart failure Failed/contraindications: pt unable to be on beta blockers d/t being on inotropic support (milrinone) and low blood pressure and heart rate remains elevated at 100. CMM lewis scanned in media documented in this encounter Plan of Treatment Not on file documented as of this encounter Visit Diagnoses Not on filedocumented in this encounter Care Teams Twitchell Operator Relationship Specialty Start Date End Date Pelon Rodriguez MD [address] [place] [address] [address] PCP - General Family Medicine 06/23/24 Mary Ellen Mahmood MD [address] [address] Consulting Physician Cardiology 07/26/24 Simran Pruett Primary Cooler Supervisor 07/26/24 documented as of this encounter
--- OUTSIDE RECORDS SUMMARY | 2024-07-28 17:23 | XMS_ITS | Encounter Summary ---
Author Organization [facility] Healthcare Address [address] [place] [address] Care Team Providers Care Medical Scientific Liaison Name Role Phone Pelon Rodriguez MD Primary Care Provi panda Mary Ellen Mahmood MD Unavailable [phone] Simran Pruett Unavailable Unavailable Encounter Details Date Type Department Care Team (Late st Contact Info) Description 06/24/2024 Results Follow-Up [facility] [address] [place] [address] Mary Ellen Mahmood MD [address] [facility] [address] [place] [address] Social History Tobacco Use Types Packs/Day Years Used Date Smoking Tobacco: Former Cigarettes Passive Smoke Exposure: Never Smokeless Tobacco: Former Sex and Gender Information Value Date Recorded Sex Assigned at Not on file 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 Gender Identity Not on file Sexual Orientation Not on file documented as of this encounter Plan of Treatment Not on file documented as of this encounter Visit Diagnoses Not on filedocumented in this encounter Care Teams Medical Scientific Liaison Relationship Specialty Start Date End Date Pelon Rodriguez MD [address] [place] [address] [address] HUANG [address] [facility] [address] [place] [address] PCP - General Family Medicine 06/23/24 Mary Ellen Mahmood MD [address] [address] Consulting Physician Cardiology 07/26/24 Simran Pruett Primary Remote Computer Terminal Operator 07/26/24 documented as of this encounter
--- OUTSIDE RECORDS SUMMARY | 2024-07-28 17:23 | XMS_ITS | Encounter Summary ---
Author Organization [facility] Address [address] [place] [address] Phone Care Team Providers Care Storeroom Supervisor Name Role Phone Pelon Rodirguez MD Primary Care Provi panda Mary Ellen Mahmood MD Unavailable [phone] Simran Pruett Unavailable Unavailable Reason for Referral * Cardiology (Routine) - Pending Review Specialty Diagnoses / Procedures Referred By Contac t Referred To Contact Diagnoses Chronic combined systolic and diastolic congestive heart failure (HCC) Procedures Transthoracic Echo (TTE) Complete W Doppler/CF Mary Ellen Mahmood MD [address] [facility] [address] [place] [address] Phone: tel: fax: [facility] Referral ID Status Reason Start Date Expiration Date V isits Requested Visits Authorized [id number] Pending Review 07/27/2024 08/26/2025 1 1 Encounter Details Date Type Department Care Team (Late st Contact Info) Description 07/27/2024 9:45 AM CDT Office Visit 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 Gender Identity Not on file Sexual Orientation Not on file documented as of this encounter Last Filed Vital Signs Vital Sign Reading Time Taken Comments Blood Pressure 108/70 07/27/2024 9:50 AM CDT Pulse 100 07/27/2024 9:50 AM CDT Temperature - - Respiratory Rate - - Oxygen Saturation 98% 07/27/2024 9:50 AM CDT Inhaled Oxygen Concentration - - Weight 58.3 kg (128 lb 9.6 oz) 07/27/2024 9:50 A M CDT Height 182.9 cm (6') 07/27/2024 9:50 AM CDT Body Mass Index 17.44 07/27/2024 9:50 AM CDT documented in this encounter Patient Instructions * Patient Instructions* Ginette Chavez RN - 07/27/2024 9:45 AM CDT Please call our heart failure office @ [phone] with any questions,concerns or updates. (Kat) Medications: START Ivabradine 5mg BID Follow up in clinic in 2-3 months wt echo Considering stopping inotrope in 2 weeks depending on labs documented in this encounter Ordered Prescriptions Prescription Sig Dispense Quantity Refills Last Filled Start Date End Date ivabradine (CORLANOR) 5 mg tabletIndications: chronic heart failure Take 1 tablet (5 mg total) by mouth 2 (two) times a day 180 tablet 3 07/27/2024 07/27/2025 documented in this encounter Plan of Treatment Scheduled Orders Name Type Priority Associated Diagnoses Order Schedule Transthoracic Echo (TTE) Complete W Doppler/CF Echocardiography Routine Chronic combined systolic and diastolic congestive heart failure (HCC) Expected: 10/27/2024, Expires: 07/27/2025 documented as of this encounter Visit Diagnoses Diagnosis Chronic combined systolic and diastolic congestive heart failure (HCC)- Primary documented in this encounter Care Teams Storeroom Supervisor Relationship Specialty Start Date End Date Pelon Rodriguez MD [address] [place] [address] [address] [facility] [address] [place] [address] PCP - General Family Medicine 06/23/24 Mary Ellen Mahmood MD [address] [address] Consulting Physician Cardiology 07/26/24 Simran Pruett Primary Laser Beam Machine Operator 07/26/24 documented as of this encounter
--- OUTSIDE RECORDS SUMMARY | 2024-07-28 17:24 | XMS_ITS | Clinical Summary ---
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 Name Role Phone Michael, Pelon Piedra MD Primary Care Provi panda Erich Infante MD Unavailable [phone] Simran Pruett Unavailable Unavailable Allergies Active Allergy Reactions Criticality Noted Date Comments Sulfamethoxazole-Trimethoprim Unknown 2024 Sulfa (Sulfonamide Antibiotics) Unknown 09/2023 Medications bismuth subsalicylate (PEPTO-BISMOL) suspension Take 30 mL by mouth as needed 07/02/19 23 Active clonazePAM (KlonoPIN) 1 mg tablet Take 1 tablet (1 mg total) by mouth 2 (two) times a day as needed 07/31/19 23 Active cyanocobalamin (Vitamin B-12) 1,000 mcg tablet Take 1 tablet (1,000 mcg total) by mouth daily Active cyclobenzaprine (FLEXERIL) 5 mg tablet Take 1 tablet (5 mg total) by mouth every 6 (six) hours as needed 02/17/20 24 Active ferrous sulfate 325 mg (65 mg of elemental iron) tablet Take 1 tablet (325 mg total) by mouth daily Active folic acid (FOLVITE) 400 mcg tablet Take 1 tablet (400 mcg total) by mouth daily 02/18/20 24 Active furosemide (LASIX) 20 mg tablet Take 1 tablet (20 mg total) by mouth daily 02/17/20 24 Active haloperidol (HALDOL) 2 mg/mL solution Take 0.5 mL (1 mg total) by mouth every 4 (four) hours as needed 02/18/20 24 Active HYDROcodone-acetam inophen (NORCO) 10-325 mg per tablet 04/16/20 24 Active multivitamin tablet Take 1 tablet by mouth daily Active naloxone (NARCAN) 4 mg/actuation spray,non-aerosol EMERGENCY USE ONLY: Administer 1 spray (4 mg) in one nostril one time. May repeat in alternating nostrils every 2-3 min until responsive or EMS arrives. 12/11/19 23 Active ondansetron ODT (ZOFRAN-ODT) 4 mg disintegrating tablet Take 2 tablets (8 mg total) by mouth every 6 (six) hours as needed 02/15/20 24 Active thiamine (VITAMIN B1) 100 mg tablet Take 1 tablet (100 mg total) by mouth daily 02/01/20 21 Active zolpidem (AMBIEN) 10 mg tablet 04/13/20 24 Active empagliflozin (JARDIANCE) 10 mg tablet Take 1 tablet (10 mg total) by mouth daily 30 tablet 11 04/16/20 24 Active heparin 10 unit/mL syringe Active Normal Saline Flush injection 04/30/20 24 Active losartan (COZAAR) 25 mg tablet Take 1 tablet (25 mg total) by mouth daily 90 tablet 06/23/19 25 026 Active milrinone in dextrose 5% (PRIMACOR) 40 mg/200 mL (200 mcg/mL) infusion Infuse 6.35 mcg/min into a venous catheter continuously 200 mL 06/24/19 026 Active spironolactone (ALDACTONE) 25 mg tablet Take 0.5 tablets (12.5 mg total) by mouth daily 45 tablet 3 07/27/19 25 026 Active ivabradine (CORLANOR) 5 mg tabletIndications: chronic heart failure Take 1 tablet (5 mg total) by mouth 2 (two) times a day 180 tablet 3 07/28/19 25 026 Active spironolactone (ALDACTONE) 25 mg tablet Take 1 tablet (25 mg total) by mouth daily 90 tablet 3 06/23/19 25 025 Discontin u(Reord er) Hospital, Clinic, or Other Facility Administered Medication Ordered Dose Route Frequency Start Date End Date Status heparin 10 unit/mL flush 50 Units 50 Units cath As needed 06/23/2024 Active Active Problems No known active problems Encounters Date Type Department Care Team Description 07/27/2024 9:45 AM CDT Office Visit [facility] Cardiology [facility] Office Building [address] [place] [address] Erich Infante MD Chronic combined systolic and diastolic congestive heart failure (HCC) (Primary Dx) 07/27/[address] [facility] and [facility] Transplant Heart [address] [facility] [address] [phone] [place] [address] Ginette Chavez RN 07/22/[address] [facility] Transplant Heart [address] [facility] [address] [phone] [place] [address] Reena Ames 07/15/2024 Telephone [facility] Home Care Services [address] [place] [address] [address] [place] [phone] Unknown, Notinfile 06/24/2024 Results Follow-Up [facility] [address] [place] [phone] Erich Infante MD 06/24/[address] [facility] Cardiology [address] [facility] 8th [place] [address] [place] [phone] Erich Infante MD 06/23/2024 10:00 AM SUPERVISOR STATEMENT CLERKS Office Visit [facility] Cardiology [facility] Office Building [address] [place] [phone] Lurdes Chiang NP Chronic systolic heart failure (HCC) (Primary Dx) 06/23/2024 8:30 AM SUPERVISOR STATEMENT CLERKS Ancillary Procedure Heart Care [place] [facility] [address] [place] [phone] Chronic combined systolic and diastolic congestive heart failure (HCC) 06/23/[address] [facility] Transplant Heart [address] [facility] [address] Mail[address] [phone] [place] [address] Royal Lozada 06/23/[address] [facility] Transplant Heart [address] [facility] [address] [id number] [place] [address] John Teixeira RN 06/23/[address] [facility] Cardiology [facility] Medical Office Building [address] [place] [address] Lurdes Chiang NP 05/10/2024 Telephone [facility] Primary [facility] Medicine [facility] [address] [facility] [address] [place] [address] An Kamara NP 05/07/2024 10:52 AM [facility] - 05/07/2024 11:06 AM [facility] Emergency [facility] Emergency Department [address] [place] [address] Discharge Disposition: Left without being seen 05/07/2024 8:30 AM SUPERVISOR STATEMENT CLERKS Office Visit [address] Medical Office Building [address] [place] [phone] Erich Infante MD Chronic combined systolic and diastolic congestive heart failure (HCC) (Primary Dx); Chronic back pain, unspecified back location, unspecified back pain laterality; Receiving inotropic medication; Alcoholic cardiomyopathy (HCC); History of alcohol abuse; History of tobacco use; Marijuana use 05/03/2024 Telephone [facility] Cardiology [address] [place] [address] [place] [phone] Tony Mcelroy MD Pic line 04/30/2024 Telephone [facility] Cardiology [address] [place] [phone] Tony Mcelroy MD Med Management; Medication Problem from Last 3 Months Surgical History Surgery Date Site/Laterality Comments PORT PLACEMENT CHEST >5 YEARS 02/16/2024 N/A Medical History Medical History Date Comments Chest pain Cardiomyopathy (HCC) Non-ischemic cardiomyopathy (HCC) Shortness of breath Family History Medical History Relation Name Comments No Known Problems Brother Arrhythmia Father Heart attack Father heart problems Father No Known Problems Father's Brother No Known Problems Father's Sister No Known Problems Maternal Grandfather No Known Problems Maternal Grandmother No Known Problems Mother No Known Problems Mother's Brother No Known Problems Mother's Sister Diabetes Paternal Grandfather Heart attack Paternal Grandfather No Known Problems Paternal Grandmother No Known Problems Sister Relation Name Status Comments Brother Father Father's Brother Father's Sister Maternal Grandfather Maternal Grandmother Mother Mother's Brother Mother's Sister Paternal Grandfather Paternal Grandmother Sister Social History Tobacco Use Types Packs/Day Years Used Date Smoking Tobacco: Former Cigarettes Passive Smoke Exposure: Never Smokeless Tobacco: Former Tobacco Cessation:Counseling Given: Not Answered Sex and Gender Information Value Date Recorded Sex Assigned at Not on file Legal Sex Male 9:52 PM SUPERVISOR STATEMENT CLERKS Gender Identity Not on file Sexual Orientation Not on file Obstetrics History Last Filed Vital Signs Vital Sign Reading Time Taken Comments Blood Pressure 108/70 07/27/2024 9:50 AM CDT Pulse 100 07/27/2024 9:50 AM CDT Temperature - - Respiratory Rate 14 04/16/2024 2:23 PM SUPERVISOR STATEMENT CLERKS Oxygen Saturation 98% 07/27/2024 9:50 AM CDT Inhaled Oxygen Concentration - - Weight 58.3 kg (128 lb 9.6 oz) 07/27/2024 9:50 A M CDT Height 182.9 cm (6') 07/27/2024 9:50 AM CDT Body Mass Index 17.44 07/27/2024 9:50 AM CDT Plan of Treatment Health Maintenance Due Date Last Done Comments Depression Screening 1989 Hepatitis C Screening 1989 Varicella Vaccines (1 of 2 - 13+ 2-dose series) 2002 Hepatitis B Screening 2007 Regular Well Visit/Exam 18-64 2007 Pneumococcal vaccine <65 (1 of 2 - PCV) 2008 Covid-19 Vaccine (2 - 2023-2 5 season) 2024 07/06/2021 Influenza Vaccine (#1) 2024 DTaP/Tdap/Td Vaccine (2 - Td or Tdap) 11/13/2033 11/14/2023 HPV Vaccines Aged Out No longer eligi ble based on patient's age to complete this topic Procedures Procedure Name Priority Date/Time Associated Diagnosis Comments PRO B-TYPE NATRIURETIC PEPTIDE Routine 07/22/2024 2:15 PM CDT Chronic combined systolic and diastolic congestive heart failure (HCC) Receiving inotropic medication COMPREHENSIVE METABOLIC PANEL Routine 07/22/2024 2:15 PM CDT Chronic combined systolic and diastolic congestive heart failure (HCC) Receiving inotropic medication COMPREHENSIVE METABOLIC PANEL Routine 06/24/2024 B-TYPE NATRIURETIC PEPTIDE Routine 06/24/2024 TRANSTHORACIC ECHO (TTE) COMPLETE W DOPPLER/CF W CONTRAST Routine 06/23/2024 9:34 AM SUPERVISOR STATEMENT CLERKS Chronic combined systolic and diastolic congestive heart failure (HCC) ECG 12-LEAD Routine 05/07/2024 8:31 AM SUPERVISOR STATEMENT CLERKS Chronic combined systolic and diastolic congestive heart failure (HCC) from Last 3 Months Results * Pro B-type natriuretic peptide (07/22/2024 2:15 PM CDT) SCRIBED NT PROBNP 304 <125 EXTERNAL LAB Blood 07/22/2024 2:15 PM CDT Erich Infante MD LAB BLOOD ORDERABLES Fi nal Result EXTERNAL LAB * (ABNORMAL) Comprehensive metabolic panel (07/22/2024 2:15 PM CDT) SCRIBED Sodium 132(A) 136 - 145 mmol/L EXTERNAL LAB SCRIBED Potassium 5.2(A) 3.5 - 5.1 mmol/L EXTERNAL LAB SCRIBED Chloride 98(A) 100 - 108 mmol/L EXTERNAL LAB SCRIBED Carbon Dioxide 27.3 21 - 32 mmol/L EXTERNAL LAB SCRIBED Anion Gap 6.7 5 - 15 mmol/L EXTERNAL LAB SCRIBED Urea Nitrogen (BUN) 25(A) 7 - 18 mg/dl EXTERNAL LAB SCRIBED Creatinine 1.07 0.7 - 1.3 mg/dl EXTERNAL LAB SCRIBED Glucose 474(A) 70 - 99 mg/dl EXTERNAL LAB SCRIBED Calcium 9.0 8.5 - 10.1 mg/dl EXTERNAL LAB SCRIBED Bilirubin 0.2 0.2 - 1.2 mg/dl EXTERNAL LAB SCRIBED Plasma Protein 6.3(A) 6.4 - 8.2 g/dl EXTERNAL LAB SCRIBED Albumin 3.7 3.4 - 5.0 g/dl EXTERNAL LAB SCRIBED Alkaline Phosphatase 55 50 - 136 Units/L EXTERNAL LAB SCRIBED Alanine Transaminase (ALT) 24 16 - 60 Units/L EXTERNAL LAB SCRIBED Aspartate Transaminase (AST) 13(A) 15 - 37 Units/L EXTERNAL LAB SCRIBED eGFR in >90 >90 EXTERNAL LAB SCRIBED eGFR in NonAfrican [place]er >90 >90 EXTERNAL LAB Blood 07/22/2024 2:15 PM CDT Erich Infante MD LAB BLOOD ORDERABLES Fi nal Result EXTERNAL LAB * B-type natriuretic peptide (06/24/2024) SCRIBED BNP 238 <125 pg/mL [facility] Blood 06/24/2024 Erich Infante MD LAB BLOOD ORDERABLES Fi nal Result [facility] * (ABNORMAL) Comprehensive metabolic panel (06/24/2024) SCRIBED Sodium 139 136 - 145 mmol/L [facility] SCRIBED Potassium 3.6 3.5 - 5.1 mmol/L [facility] SCRIBED Chloride 96(A) 100 - 108 mmol/L [facility] SCRIBED Carbon Dioxide 33.3(A) 21 - 32 mmol/L [facility] Anion Gap 9.7 5 - 15 mmol/L [facility] Urea Nitrogen (BUN) 21(A) 7 - 18 mg/dl [facility] Creatinine 0.90 0.7 - 1.3 mg/dl [facility] Glucose 151(A) 70 - 99 mg/dl [facility] Calcium 9.4 8.5 - 10.1 mg/dl [facility] Bilirubin 0.9 0.2 - 1.2 mg/dl [facility] Plasma Protein 6.8 6.4 - 8.2 g/dl [facility] Albumin 4.1 3.4 - 5.0 g/dl [facility] Alkaline Phosphatase 76 50 - 136 Units/L [facility] Alanine Transaminase (ALT) 58 16 - 60 Units/L [facility] Aspartate Transaminase (AST) 78(A) 15 - 37 Units/L [facility] eGFR in NonAfrican [place]er >90 >90 [facility] Alb/glob ratio 1.5 1.0 - 2.0 [facility] BUN_Creat Ratio 23.3 6 - 26 [facility] Blood 06/24/2024 us Erich Infante MD LAB BLOOD ORDERABLES Fi nal Result [facility] * TRANSTHORACIC ECHO (TTE) COMPLETE W DOPPLER/CF W CONTRAST (06/23/2024 9:34 AM SUPERVISOR STATEMENT CLERKS) Anatomical Region Laterality Modality Ultrasound 06/23/2024 8:59 AM SUPERVISOR STATEMENT CLERKS Narrative 06/23/2024 1:32 PM SUPERVISOR STATEMENT CLERKS [facility] Cardiac Diagnostic Lab [address], [address] [place] [address] Transthoracic Echocardiographic Report Patient Name: SOPHIA HANNA ST : 1990 (34y 2m) Gender: M Study Date: 06/23/2024 08:59:08 AM Ht(Inch): 72 Wt(Lb): 149.91 BSA: 1.86 Director Of Channel Marketing: Joanna Mcfarlane RDCS Location: [facility] Order Provider: ERICH INFANTE Heart Rate: 111 BMI: 20.33 BP: 111 / 72 Quality: The study images were of technically good quality. Ref Provider: ERICH INFANTE Report amended on 2024-07-20 at 13:51:15 CDT: Added/Modified: Aortic Valve [ADDED]: [ADDED] AoV Morphology: Trileaflet aortic valve. Conclusions [MODIFIED]: [MODIFIED TEXT] Left Ventricular Findings: Normal left ventricular cavity size based on 2D measurements. Normal LV wall thickness. Moderately depressed left ventricular systolic function. Diaphragmatic flattening of the inferior wall. The Ejection Fraction (Valentin's) is measured at 39 %. Due to tachycardia, there is fusion of early diastolic filling (E wave) and atrial (A wave) contributions to left ventricular filling. Left ventricular diastolic function is indeterminate. The average global longitudinal strain rate is abnormal. LV GLS: -15.4%. Deleted: Left Ventricle: [REMOVED] LV Volume Index Size (Evidence based): Mildly dilated left ventricle based on volume index. Previously Signed by:DaydayForPrecious 06/23/2024 1:31:45 PM SUPERVISOR STATEMENT CLERKS and Cong Nix M.D. 06/23/2024 1:31:45 PM SUPERVISOR STATEMENT CLERKS End of Addendum PROCEDURES: Echocardiographic Report: [id number], [id number]) Transthoracic complete echo with strain imaging and contrast, 2D, spectral and tissue Doppler, color flow Doppler, M-mode. Contrast: Contrast Enhancement was Employed: After initial imaging due to sub- optimal quality related to co-morbidity defined by patient's body habitus, used Perflutren contrast because 2 of 16 LV wall segments in any view not visualized, using the volume necessary to obtain adequate images and. 0.8 ml Optison Administered, (2.2 ml wasted). INDICATIONS: I50.42 Chronic combined systolic (congestive) and diastolic (congestive) heart failure. FINDINGS: Left Ventricle: Normal left ventricular cavity size based on 2D measurements. Normal LV wall thickness. Moderately depressed left ventricular systolic function. Diaphragmatic flattening of the inferior wall. The Ejection Fraction (Valentin's) is measured at 39 %. Due to tachycardia, there is fusion of early diastolic filling (E wave) and atrial (A wave) contributions to left ventricular filling. Left ventricular diastolic function is indeterminate. The average global longitudinal strain rate is abnormal. LV GLS: -15.4%. The LV global strain is: -15.4 %. Septal bounce. LVOT TVI~13cm. Right Ventricle: Normal right ventricular size. Normal RVSF. Left Atrium: The left atrium is normal in size. Right Atrium: The right atrium is normal in size. Mitral Valve: Normal mitral valve leaflet structure. No mitral regurgitation seen. No stenosis present. Aortic Valve: Trileaflet aortic valve. No aortic regurgitation seen. No aortic valve stenosis. The mean transaortic gradient is 1.86 mmHg. The aortic valve area by the continuity equation (using VTI) is 4.81 cm2. Tricuspid Valve: The tricuspid valve demonstrates normal leaflet structure. No tricuspid regurgitation seen. PASP cannot be evaluated due to lack of adequate TR jet. No tricuspid valve stenosis. Pulmonic Valve: The pulmonic valve demonstrates normal leaflet structure. There is mild pulmonic regurgitation. No pulmonic valve stenosis present. Pericardium: No pericardial effusion. Aorta: There is mild aortic root dilation. SoV~4.2cm. There is dilation of the aortic root when indexed. There is dilation of the ascending aorta when indexed. Prox asc Ao~3.5cm. IVC: IVC is normal in size. The IVC (inferior vena cava) was <2.1 cm and collapsibility >50%, est RAp~3mmHg. . Rhythm: The rhythm during the study was sinus tachycardia (HR~100-110s). CONCLUSIONS: 1. The rhythm during the study was sinus tachycardia (HR~100-110s). 2. Normal left ventricular cavity size based on 2D measurements. Normal LV wall thickness. Moderately depressed left ventricular systolic function. Diaphragmatic flattening of the inferior wall. The Ejection Fraction (Valentin's) is measured at 39 %. Due to tachycardia, there is fusion of early diastolic filling (E wave) and atrial (A wave) contributions to left ventricular filling. Left ventricular diastolic function is indeterminate. The average global longitudinal strain rate is abnormal. LV GLS: -15.4%. 3. Normal right ventricular size. Normal RVSF. 4. There is no significant valvular heart disease. 5. No pericardial effusion. 6. There is mild aortic root dilation. SoV~4.2cm. There is dilation of the aortic root when indexed. There is dilation of the ascending aorta when indexed. Prox asc Ao~3.5cm. 7. IVC is normal in size. The IVC (inferior vena cava) was <2.1 cm and collapsibility >50%, est RAp~3mmHg. . MEASUREMENTS: 2D/MM Value Range Doppler Value Range LVIDd 2D 5.37 cm [ 4.20 - 5.80 ] AV Peak Darvin 0.96 m/s [ 1.00 - 1.70 ] LVIDs 2D 3.83 cm [ 2.50 - 4.00 ] AV Peak PG 3.69 IVSd 2D 0.94 cm [ 0.60 - 1.00 ] AV Mean PG 1.86 mmHg LVPWd 2D 1.02 cm [ 0.60 - 1.00 ] AV VTI 12.09 cm LV Thickness Ratio 0.92 LVOT Peak Darvin 0.94 m/s [ 0.70 - 1.10 ] LV FS 2D 19.18 % [ 25.00 - 43.00 ] LVOT Peak PG 3.53 LV Mass 2D 204.39 g LVOT Mean PG 1.72 mmHg LV Mass Index 2D 109.89 g/m2 LVOT VTI 12.97 cm RWT 0.38 LVOT Diam 2.39 cm EDV Mod BP 166.40 ml [ 62.00 - 150.00 ] DEN VTI 4.81 cm2 LV EDV Index 89.46 ml/m2 LVOT/AV VTI 1.07 - Dimensionless index (DVI) ESV Mod BP 101.13 ml [ 21.00 - 61.00 ] MV E Peak Darvin 0.48 m/s [ 0.60 - 1.30 ] EF Mod BP 39 % [ 52 - 72 ] MV A Peak Darvin 0.55 m/s [ 1.00 - 1.20 ] LV GLS -15.4 % [ -18.0 - -16.0 ] MV E/A 0.88 ratio [ 0.80 - 1.50 ] LA Length 2C 5.59 cm MV Decel Time 146.26 msec [ 104.00 - 258.00 ] LA Length 4C 4.35 cm Med E` Darvin 9.87 cm/sec [ 8.00 - 15.00 ] LA Volume BP 48.64 ml Lat E` Darvin 13.07 cm/sec [ 10.00 - 15.00 ] LA Volume Index 26.15 ml/m2 [ 16.00 - 34.00 ] Average E/E` 4.18 RV Base Dimen 2D 2.5 cm [ 2.5 - 4.2 ] RV S` 14.24 cm/sec RA Volume 32.11 ml PV Peak Darvin 0.92 m/s [ 0.40 - 0.80 ] RA Volume Index 17.26 ml/m2 PV Peak PG 3.39 AoR Diam 2D 4.11 cm [ 3.10 - 3.70 ] Ao Root Index 2.21 cm/m2 [ 1.00 - 2.00 ] Asc Ao Diam 2D 3.46 cm Asc Ao Index 1.86 cm/m2 - COMPARISONS: There was no previous study available for comparison. ATTESTATION: I have reviewed and interpreted the pertinent images and measurements of this study. I attest to the conclusions in the final report that is provided above. DISCLAIMER: The study images and the final report will be retained in the patient chart by the Echo Laboratory for the legally required time period. This chart constitutes the legal record of any testing performed. Electronically Signed By: Cong Nix M.D. 06/23/2024 1:31:45 PM SUPERVISOR STATEMENT CLERKS Electronically Signed By: Cong Nix M.D. 06/23/2024 1:31:45 PM SUPERVISOR STATEMENT CLERKS Electronically Amended By: Cong Nix M.D. 07/20/2024 1:51:15 PM CDT [ADDENDUM] Procedure Note Cong Nix MD - 07/20/2024 [facility] Cardiac Diagnostic Lab [address] [facility], [address] [place] [address] Transthoracic Echocardiographic Report Patient Name: SOPHIA HANNA ST : 1990 (34y 2m) Gender: M Study Date: 06/23/2024 08:59:08 AM Ht(Inch): 72 Wt(Lb): 149.91 BSA: 1.86 Director Of Channel Marketing: Joanna Mcfarlane RDCS Location: [facility] Order Provider:ERICH INFANTE Heart Rate: 111 BMI: 20.33 BP: 111 / 72 Quality: The study images wereof technically good quality. Ref Provider: ERICH INFANTE Report amended on 2024-07-20 at 13:51:15 CDT: Added/Modified: Aortic Valve [ADDED]: [ADDED] AoV Morphology: Trileaflet aortic valve. Conclusions [MODIFIED]: [MODIFIED TEXT] Left Ventricular Findings: Normal left ventricular cavitysize based on 2D measurements. Normal LV wall thickness. Moderately depressed leftventricular systolic function. Diaphragmatic flattening of the inferior wall. The EjectionFraction (Valentin's) is measured at 39 %. Due to tachycardia, there is fusion ofearly diastolic filling (E wave) and atrial (A wave) contributions to left ventricularfilling. Left ventricular diastolic function is indeterminate. The average globallongitudinal strain rate is abnormal. LV GLS: -15.4%. Deleted: Left Ventricle: [REMOVED] LV Volume Index Size (Evidence based): Mildly dilated leftventricle based on volume index. Previously Signed by:Jaciel 06/23/2024 1:31:45 PM SUPERVISOR STATEMENT CLERKS and Cong Nix M.D. 06/23/2024 1:31:45 PM SUPERVISOR STATEMENT CLERKS End of Addendum PROCEDURES: Echocardiographic Report: ([id number]) Transthoracic complete echo withstrain imaging and contrast, 2D, spectral and tissue Doppler, color flow Doppler,M-mode. Contrast: Contrast Enhancement was Employed: After initial imaging due tosub- optimal quality related to co-morbidity defined by patient's body habitus, usedPerflutren contrast because 2 of 16 LV wall segments in any view not visualized,using the volume necessary to obtain adequate images and. 0.8 ml Optison Administered, (2.2ml wasted). INDICATIONS: I50.42 Chronic combined systolic (congestive) and diastolic (congestive)heart failure. FINDINGS: Left Ventricle: Normal left ventricular cavity size based on 2Dmeasurements. Normal LV wall thickness. Moderately depressed left ventricular systolic function.Diaphragmatic flattening of the inferior wall. The Ejection Fraction (Valentin's) ismeasured at 39 %. Due to tachycardia, there is fusion of early diastolic filling (E wave)and atrial (A wave) contributions to left ventricular filling. Left ventriculardiastolic function is indeterminate. The average global longitudinal strain rate is abnormal. LVGLS: -15.4%. The LV global strain is: -15.4 %. Septal bounce. LVOT TVI~13cm. Right Ventricle: Normal right ventricular size. Normal RVSF. Left Atrium: The left atrium is normal in size. Right Atrium: The right atrium is normal in size. Mitral Valve: Normal mitral valve leaflet structure. No mitralregurgitation seen. No stenosis present. Aortic Valve: Trileaflet aortic valve. No aortic regurgitation seen. Noaortic valve stenosis. The mean transaortic gradient is 1.86 mmHg. The aortic valvearea by the continuity equation (using VTI) is 4.81 cm2. Tricuspid Valve: The tricuspid valve demonstrates normal leafletstructure. No tricuspid regurgitation seen. PASP cannot be evaluated due to lack of adequate TRjet. No tricuspid valve stenosis. Pulmonic Valve: The pulmonic valve demonstrates normal leaflet structure.There is mild pulmonic regurgitation. No pulmonic valve stenosis present. Pericardium: No pericardial effusion. Aorta: There is mild aortic root dilation. SoV~4.2cm. There is dilation ofthe aortic root when indexed. There is dilation of the ascending aorta when indexed.Prox asc Ao~3.5cm. IVC: IVC is normal in size. The IVC (inferior vena cava) was <2.1 cm andcollapsibility >50%, est RAp~3mmHg. . Rhythm: The rhythm during the study was sinus tachycardia (HR~100-110s). CONCLUSIONS: 1. The rhythm during the study was sinus tachycardia (HR~100-110s). 2. Normal left ventricular cavity size based on 2D measurements. Normal LVwall thickness. Moderately depressed left ventricular systolic function.Diaphragmatic flattening of the inferior wall. The Ejection Fraction (Valentin's) ismeasured at 39 %. Due to tachycardia, there is fusion of early diastolic filling (E wave)and atrial (A wave) contributions to left ventricular filling. Left ventriculardiastolic function is indeterminate. The average global longitudinal strain rate is abnormal. LVGLS: -15.4%. 3. Normal right ventricular size. Normal RVSF. 4. There is no significant valvular heart disease. 5. No pericardial effusion. 6. There is mild aortic root dilation. SoV~4.2cm. There is dilation of theaortic root when indexed. There is dilation of the ascending aorta when indexed. Proxasc Ao~3.5cm. 7. IVC is normal in size. The IVC (inferior vena cava) was <2.1 cm andcollapsibility >50%, est RAp~3mmHg. . MEASUREMENTS: 2D/MM Value Range DopplerValue Range LVIDd 2D 5.37 cm [ 4.20 - 5.80 ] AV Peak Vel0.96 m/s [ 1.00 - 1.70 ] LVIDs 2D 3.83 cm [ 2.50 - 4.00 ] AV Peak PG3.69 IVSd 2D 0.94 cm [ 0.60 - 1.00 ] AV Mean PG1.86 mmHg LVPWd 2D 1.02 cm [ 0.60 - 1.00 ] AV VTI12.09 cm LV Thickness Ratio 0.92 LVOT Peak Vel0.94 m/s [ 0.70 - 1.10 ] LV FS 2D 19.18 % [ 25.00 - 43.00 ] LVOT Peak PG3.53 LV Mass 2D 204.39 g LVOT Mean PG1.72 mmHg LV Mass Index 2D 109.89 g/m2 LVOT VTI12.97 cm RWT 0.38 LVOT Diam2.39 cm EDV Mod BP 166.40 ml [ 62.00 - 150.00 ] DEN VTI4.81 cm2 LV EDV Index 89.46 ml/m2 LVOT/AV VTI1.07 - Dimensionless index (DVI) ESV Mod BP 101.13 ml [ 21.00 - 61.00 ] MV E Peak Vel0.48 m/s [ 0.60 - 1.30 ] EF Mod BP 39 % [ 52 - 72 ] MV A Peak Vel0.55 m/s [ 1.00 - 1.20 ] LV GLS -15.4 % [ -18.0 - -16.0 ] MV E/A0.88 ratio [ 0.80 - 1.50 ] LA Length 2C 5.59 cm MV Decel Kyuj718.26 msec [ 104.00 - 258.00 ] LA Length 4C 4.35 cm Med E` Vel9.87 cm/sec [ 8.00 - 15.00 ] LA Volume BP 48.64 ml Lat E` Vel13.07 cm/sec [ 10.00 - 15.00 ] LA Volume Index 26.15 ml/m2 [ 16.00 - 34.00 ] Average E/E`4.18 RV Base Dimen 2D 2.5 cm [ 2.5 - 4.2 ] RV S`14.24 cm/sec RA Volume 32.11 ml PV Peak Vel0.92 m/s [ 0.40 - 0.80 ] RA Volume Index 17.26 ml/m2 PV Peak PG3.39 AoR Diam 2D 4.11 cm [ 3.10 - 3.70 ] Ao Root Index 2.21 cm/m2 [ 1.00 - 2.00 ] Asc Ao Diam 2D3.46 cm Asc Ao Index1.86 cm/m2 - COMPARISONS: There was no previous study available for comparison. ATTESTATION: I have reviewed and interpreted the pertinent images and measurements ofthis study. I attest to the conclusions in the final report that is provided above. DISCLAIMER: The study images and the final report will be retained in the patientchart by the [facility] for the legally required time period. This chart constitutesthe legal record of any testing performed. Electronically Signed By: Cong Nix M.D. 06/23/2024 1:31:45 PM SUPERVISOR STATEMENT [employer]ERKS Electronically Signed By: Cong Nix M.D. 06/23/2024 1:31:45 PM SUPERVISOR STATEMENT [employer]ER[employer] Electronically Amended By: Cong Nix M.D. 07/20/2024 1:51:15 PM CDT [ADDENDUM] Erich Infante MD CV ECHO PROCEDURES Edit ed Result - Final * ECG 12 lead (05/07/2024 8:31 AM SUPERVISOR STATEMENT CLERKS) Erich Infante MD ECG ORDERABLES Edited Result - Final from Last 3 Months Insurance [facility] ACCESS ANTHEM ACCESS ANTHEM ACCESS Care Teams Edging Machine Catcher Relationship Specialty Start Date End Date Pelon Rodriguez MD [address] [place] [address] DR HUANG B [address] [address] PCP - General Family Medicine 06/23/24 Erich Infante MD [id number] [address] Consulting Physician Cardiology 07/26/24 Simran Pruett Primary Construction Safety Manager 07/26/24
--- OUTSIDE RECORDS SUMMARY | 2024-07-28 17:24 | XMS_ITS | Continuity of Care Document ---
Author Organization [facility] Address [address] [place] [address], [place] [address] Phone Care Team Providers Care Manufacturing Industrial Engineer Name Role Phone Eddie Rodney MD Unavailable Unavailable Advance Directives Directive Yes / No Effective Date File Name No Information Encounters Encounter Description Practice Location Reason(s) For Visit Diagnoses Date Provider Providers Copied on Encounter [facility], [address] [place] [address], [id number], tel:[phone] [facility] No Information Rashaun Morgan. [address] [place], [place], [id number], [place]. tel:[phone] Family History Family Member Type Diagnosis Age At Onset No Information Payers Payer name Insurance type Covered constitution party ID Authoriza tion(s) No Information Social History Type Description Quantity Date Captured Comments Sex Male Smoking Status No Information Chief Complaint And Reason For Visit No Information Reason For Referral Reason For Referral No Information Plan Of Treatment Date Type Action Status Goal HIV screen. Due on due Goal Tdap. Due on due Goal Partner Violence. Due on Jan due Goal Influenza vaccine. Due on due Goal Depression screening. Due on due Goal Td vaccine. Due on due History Of Present Illness Encounter Date Complaint History Of Prese nt Illness No Information Functional Status Date Functional Assessmen t No Information Instructions Date Instruction Additional Infor mation No Information Assessments Type Assessment Date No Information Patient Care Teams Name Effective Dates (start - stop) Status Members No Information
--- OUTSIDE RECORDS SUMMARY | 2024-07-28 17:24 | XMS_ITS | Data Portability ---
Author Organization [place] - [facility], PREVIOUS COUNSELING Address [address] [place] [id number] Assessment No assessment recorded. Plan of Treatment Reminders Order Date Submit Date Provider Last Modified By Organization Details Last Modified Time Details Appointments None recorded. Lab drug screen, urine [address], [address] [place] [address], [id number], 3 14:30:27 gamma-gluta myl transferase (ggt), serum 2022 023 SP[facility]ER [facility], [address] [facility], [place] [address], [place], [address], 3 09:36:04 CMP, serum or plasma 2022 023 [facility]ER [facility], [address] [facility], [place] [address], [place], [address], 3 09:36:03 CBC w/ auto diff 2022 023 [facility], [address] [facility], [facility] [address], [place], [address], 3 06:35:44 hepatitis C Ab, signal-to-c utoff, serum or plasma 2022 023 JOSHUA [facility], [address] [facility], [facility] [address], [place], [address], 3 12:35:37 Referral None recorded. Procedures None recorded. Surgeries None recorded. Imaging None recorded. Medication Orders naltrexone 50 mg tablet 2022 023 JOSHUA [facility] #[id number], [address] [place], [address], 3 15:50:44 naltrexone 50 mg tablet 2022 023 [facility]armacy #[id number], [address] [place], [address], 3 13:01:30 Patient TargetsNo targets recorded. Patient Instructions Encounter Date Encounter Id Patient Instructions Last Modified By Organization Details Last Modified Time 06/11/2022 [id number] VIVITROL (naltrexone for extended-release injectable suspension) Patient Counseling Tool Risk of sudden opioid withdrawal during initiation and re-initiation of VIVITROL Using any type of opioid including street drugs, prescription pain medicines, cough, cold or diarrhea medicines that contain opioids, or opioid dependence treatments buprenorphine or methadone, in the 7 to 14 days before starting VIVITROL may cause severe and potentially dangerous sudden opioid withdrawal. Risk of opioid overdose: Patients may be more sensitive to the effects of lower amounts of opioids: Patients should tell their family and people close to them about the increased sensitivity to opioids and the risk of overdose even when using lower doses of opioids or amounts that they used before treatment. Using large amounts of opioids, such as prescription pain pills or heroin, to overcome effects of VIVITROL can lead to serious injury, coma, and . Risk of severe reactions at the injection site Remind patients of these possible symptoms at the injection site: Some of these injection site reactions have required surgery. Tell your patients to contact a healthcare provider if they have any reactions at the injection site. Risk of liver injury, including liver damage or hepatitis Remind patients of the possible symptoms of liver damage or hepatitis. Patients may not feel the therapeutic effects of opioid-containing medicines for pain, cough or cold, or diarrhea while taking VIVITROL. Patients should carry written information with them at all times to alert healthcare providers that they are taking VIVITROL, so they can be treated properly in an emergency. A Patient Wallet Card or Medical Alert Bracelet can be ordered from: , Option #1. Not available 06/11/2022 14:21:10 06/22/2022 [id number] Patient informed to call [facility] Specialty pharmacy to discontinue the Vivitrol shipment has it has not been delivered to the clinic. [email or web address] Not available 06/23/2022 15:52:20 Reason for Referral None Reported. Results Created Date Observation Date Name Description Value Unit Range Abnormal Flag Note LastModifiedBy Organization Detail LastModifiedTime 06/11/19 23 06/12/2022 CBC WITH DIFFE RENTI AL/PL ATELE T WBC 9.9 x10e3 /uL 3.4-10 .8 Not Available [facility] ([facility]) [address] [place], [address], 06/12/2022 06:35:41 06/11/1906/12/2022 CBC WITH DIFFE RENTI AL/PL ATELE T RBC 5.05 x10e6 /uL 4.14-5 .80 Not Available [facility] ([facility]) [address] [place], [address], 06/12/2022 06:35:41 06/11/19 23 06/12/2022 CBC WITH DIFFE RENTI AL/PL ATELE T hemoglobin 16.3 g/dL 13.0-1 7.7 Not Available [facility] ([facility]) [address] [place], [address], 06/12/2022 06:35:41 06/11/1906/12/2022 CBC WITH DIFFE RENTI AL/PL ATELE T hematocrit 46.5 % 37.5-5 1.0 Not Available [facility] ([facility]) [address] [place], [address], 06/12/2022 06:35:41 06/11/19 23 06/12/2022 CBC WITH DIFFE RENTI AL/PL ATELE T MCV 92 fL 79-97 Not Available [facility] ([facility]) [address] [place], [address], 06/12/2022 06:35:41 06/11/19 23 06/12/2022 CBC WITH DIFFE RENTI AL/PL ATELE T MCH 32.3 pg 26.6-3 3.0 Not Available [facility] ([facility]) [address] [facility], [place], [address], 06/12/2022 06:35:41 06/11/19 23 06/12/2022 CBC WITH DIFFE RENTI AL/PL ATELE T MCHC 35.1 g/dL 31.5-3 5.7 Not Available [facility] ([facility]) [address] [facility], [place], [address], 06/12/2022 06:35:41 06/11/19 23 06/12/2022 CBC WITH DIFFE RENTI AL/PL ATELE T RDW 13.4 % 11.6-1 5.4 Not Available [facility] ([facility]) [address] [facility], [place], [address], 06/12/2022 06:35:41 06/11/19 23 06/12/2022 CBC WITH DIFFE RENTI AL/PL ATELE T platelets 196 x10e3 /uL 150-45 0 Not Available [facility] ([facility]) [address] [facility], [place], [address], 06/12/2022 06:35:41 06/11/19 23 06/12/2022 CBC WITH DIFFE RENTI AL/PL ATELE T neutrophils 69 % not estab. Not Available [facility] ([facility]) [address] [facility], [place], [address], 06/12/2022 06:35:41 06/11/19 23 06/12/2022 CBC WITH DIFFE RENTI AL/PL ATELE T lymphs 21 % not estab. Not Available [facility] ([facility]) [address] [facility], [place], [address], 06/12/2022 06:35:41 06/11/19 23 06/12/2022 CBC WITH DIFFE RENTI AL/PL ATELE T monocytes 7 % not estab. Not Available [facility] ([facility]) [address] [facility], [place], [address], 06/12/2022 06:35:41 06/11/19 23 06/12/2022 CBC WITH DIFFE RENTI AL/PL ATELE T eos 1 % not estab. Not Available [facility] ([facility]) [address] [facility], [place], [address], 06/12/2022 06:35:41 06/11/19 23 06/12/2022 CBC WITH DIFFE RENTI AL/PL ATELE T basos 1 % not estab. Not Available [facility] ([facility]) [address] [facility], [place], [address], 06/12/2022 06:35:41 06/11/19 23 06/12/2022 CBC WITH DIFFE RENTI AL/PL ATELE T immature cells CASH MANAGEMENT CLERK Not Available [facility] ([facility]) [address] [place], [address], 06/12/2022 06:35:41 06/11/19 23 06/12/2022 CBC WITH DIFFE RENTI AL/PL ATELE T neutrophils (absolute) 7.0 x10e3 /uL 1.4-7. 0 Not Available [facility] ([facility]) [address] [place], [address], 06/12/2022 06:35:41 06/11/19 23 06/12/2022 CBC WITH DIFFE RENTI AL/PL ATELE T lymphs (absolute) 2.1 x10e3 /uL 0.7-3. 1 Not Available [facility] ([facility]) [address] [place], [address], 06/12/2022 06:35:41 06/11/19 23 06/12/2022 CBC WITH DIFFE RENTI AL/PL ATELE T monocytes(ab solute) 0.6 x10e3 /uL 0.1-0. 9 Not Available [facility] ([facility]) [address] [facility], [place], [address], 06/12/2022 06:35:41 06/11/19 23 06/12/2022 CBC WITH DIFFE RENTI AL/PL ATELE T eos (absolute) 0.1 x10e3 /uL 0.0-0. 4 Not Available [facility] ([facility]) [address] [facility], [place], [address], 06/12/2022 06:35:41 06/11/19 23 06/12/2022 CBC WITH DIFFE RENTI AL/PL ATELE T baso (absolute) 0.1 x10e3 /uL 0.0-0. 2 Not Available [facility] ([facility]) [address] [facility], [place], [address], 06/12/2022 06:35:41 06/11/19 23 06/12/2022 CBC WITH DIFFE RENTI AL/PL ATELE T immature granulocytes 1 % not estab. Not Available [facility] ([facility]) [address] [facility], [place], [address], 06/12/2022 06:35:41 06/11/19 23 06/12/2022 CBC WITH DIFFE RENTI AL/PL ATELE T immature grans (abs) 0.1 x10e3 /uL 0.0-0. 1 Not Available [facility] ([facility]) [address] [facility], [place], [address], 06/12/2022 06:35:41 06/11/19 23 06/12/2022 CBC WITH DIFFE RENTI AL/PL ATELE T NRBC CASH MANAGEMENT CLERK Not Available [facility] ([facility]) [address] [facility], [place], [address], 06/12/2022 06:35:41 06/11/19 23 06/12/2022 CBC WITH DIFFE RENTI AL/PL ATELE T hematology comments: CASH MANAGEMENT CLERK Not Available [facility] ([facility]) [address] [facility] [place], [address], 06/12/2022 06:35:41 06/11/19 23 06/12/2022 COMP. METAB OLIC PANEL (14) glucose 105 mg/dL 70-99 above high normal Not Available [facility] ([facility]) [address] [facility] [place], [address], 06/12/2022 09:36:03 06/11/19 23 06/12/2022 COMP. METAB OLIC PANEL (14) BUN 10 mg/dL 6-20 Not Available [facility] ([facility]) [address] [facility] [place], [address], 06/12/2022 09:36:03 06/11/19 23 06/12/2022 COMP. METAB OLIC PANEL (14) creatinine 0.88 mg/dL 0.76-1 .27 Not Available [facility] ([facility]) [address] [facility] [place], [address], 06/12/2022 09:36:03 06/11/19 23 06/12/2022 COMP. METAB OLIC PANEL (14) eGFR 116 mL/mi n/1.7 3 >59 Not Available [facility] ([facility]) [address] [facility] [place], [address], 06/12/2022 09:36:03 06/11/19 23 06/12/2022 COMP. METAB OLIC PANEL (14) BUN/creatini ne ratio 11 9-20 Not Available [facility] ([facility]) [address] [facility] [place], [address], 06/12/2022 09:36:03 06/11/19 23 06/12/2022 COMP. METAB OLIC PANEL (14) sodium 142 mmol/ L 134-14 4 Not Available [facility] ([facility]) [address] [facility] [place], [address], 06/12/2022 09:36:03 06/11/19 23 06/12/2022 COMP. METAB OLIC PANEL (14) potassium 3.7 mmol/ L 3.5-5. 2 Not Available [facility] ([facility]) [address] [place], [address], 06/12/2022 09:36:03 06/11/19 23 06/12/2022 COMP. METAB OLIC PANEL (14) chloride 100 mmol/ L 96-106 Not Available [facility] ([facility]) [address] [place], [address], 06/12/2022 09:36:03 06/11/19 23 06/12/2022 COMP. METAB OLIC PANEL (14) carbon dioxide, total 20 mmol/ L 20-29 Not Available [facility] ([facility] [address] [facility] [place] [address], 06/12/2022 09:36:03 06/11/19 23 06/12/2022 COMP. METAB OLIC PANEL (14) calcium 9.6 mg/dL 8.7-10 .2 Not Available [facility] ([facility]) [address] [facility] [place], [address], 06/12/2022 09:36:03 06/11/19 23 06/12/2022 COMP. METAB OLIC PANEL (14) protein, total 7.5 g/dL 6.0-8. 5 Not Available [facility] ([facility] [address] [facility] [address], 06/12/2022 09:36:03 06/11/19 23 06/12/2022 COMP. METAB OLIC PANEL (14) albumin 5.2 g/dL 4.0-5. 0 above high normal Not Available [facility] ([facility]) [address] [facility] [place], [address], 06/12/2022 09:36:03 06/11/19 23 06/12/2022 COMP. METAB OLIC PANEL (14) globulin, total 2.3 g/dL 1.5-4. 5 Not Available [facility] ([facility]) [address] [facility] [place], [address], 06/12/2022 09:36:03 06/11/19 23 06/12/2022 COMP. METAB OLIC PANEL (14) A/G ratio 2.3 1.2-2. 2 above high normal Not Available [facility] ([facility]) [address] [facility] [place], [address], 06/12/2022 09:36:03 06/11/19 23 06/12/2022 COMP. METAB OLIC PANEL (14) bilirubin, total 0.4 mg/dL 0.0-1. 2 Not Available [facility] ([facility]) [address] [facility] [place], [address], 06/12/2022 09:36:03 06/11/19 23 06/12/2022 COMP. METAB OLIC PANEL (14) alkaline phosphatase 75 IU/L 44-121 Not Available [facility] ([facility]) [address] [facility] [place], [address], 06/12/2022 09:36:03 06/11/19 23 06/12/2022 COMP. METAB OLIC PANEL (14) AST (SGOT) 50 IU/L 0-40 above high normal Not Available [facility] ([facility]) [address] [facility] [place], [address], 06/12/2022 09:36:03 06/11/19 23 06/12/2022 COMP. METAB OLIC PANEL (14) ALT (SGPT) 39 IU/L 0-44 Not Available [facility] ([facility]) [address] [facility] [place], [address], 06/12/2022 09:36:03 06/11/19 23 06/12/2022 GGT GGT 51 IU/L 0-65 Not Available [facility] ([facility]) [address] [facility], [place], [address], 06/12/2022 09:36:04 06/11/19 23 06/12/2022 HCV ANTIB ELIJAH RFX TO QUANT PCR HCV Ab <0.1 s/co_ ratio 0.0-0. 9 Not Available [facility] ([facility]) [address] [facility], [place], [address], 06/12/2022 12:35:37 06/11/19 23 06/12/2022 HCV ANTIB ELIJAH RFX TO QUANT PCR interpretati on: Commen t Negat judy Not infec alyson with HCV, unles s recen t infec tion is suspe cted or other evide nce exist s to indic ate HCV infec tion. Not Available [facility] ([facility]) [address] [facility], [place], [address], 06/12/2022 12:35:37 06/11/19 23 06/11/2022 drug scree n, urine AMP negati ve Not Available [address], [address], 06/11/2022 14:29:21 06/11/19 23 06/11/2022 drug scree n, urine BAR negati ve Not Available [address], [address], 06/11/2022 14:29:21 06/11/19 23 06/11/2022 drug scree n, urine BUP negati ve Not Available [address], [address], 06/11/2022 14:29:21 06/11/19 23 06/11/2022 drug scree n, urine BZO positi ve Not Available [address], [address], 06/11/2022 14:29:21 06/11/19 23 06/11/2022 drug scree n, urine YVES negati ve Not Available [address], [address], 06/11/2022 14:29:21 06/11/19 23 06/11/2022 drug scree n, urine MDMA negati ve Not Available [address], [address], 06/11/2022 14:29:21 06/11/19 23 06/11/2022 drug scree n, urine MTD negati ve Not Available [address], [address], 06/11/2022 14:29:21 06/11/19 23 06/11/2022 drug scree n, urine OPI negati ve Not Available [address], [address], 06/11/2022 14:29:21 06/11/19 23 06/11/2022 drug scree n, urine OXY negati ve Not Available [address], [address], 06/11/2022 14:29:21 06/11/19 23 06/11/2022 drug scree n, urine PCP negati ve Not Available [address], [address], 06/11/2022 14:29:21 06/11/19 23 06/11/2022 drug scree n, urine TCA negati ve Not Available [address], [address], 06/11/2022 14:29:21 06/11/19 23 06/11/2022 drug scree n, urine THC positi ve Not Available [address], [address], 06/11/2022 14:29:21 Result Notes None recorded. Problems Name Problem SNOMED Code Status Onset Date Resolution Date Notes Provider Name and Address Organization Details Recorded Time Pancreatitis 54941817 Active 2022 Odilon Michael MD [address] [place] [address], [place], [address] [place] [address] [place] - [facility] 3 17:27:29 Chronic anxiety 459218716 Active 2022 Odilon Michael MD [address] [place] [address], [place], [address] [place] [address] [place] - [facility] 3 17:27:29 Alcoholism 9107297 Active 2022 Odilon Michael MD [address] [place] [address], [place], [address] [place] [address] [place] [facility] 3 17:48:24 Anxiety 39649238 Active 2022 Odilon Michael MD [address] [place] [address], [place], [address] [place] [address] [place] [facility] 3 17:48:42 Problem Notes None recorded. Medical Equipment None Reported. Allergies Allergen ID Allergen Name Allergen Category Reaction Reaction Severity Criticality Documentation Date Start Date Code Code System Note Provider Name and Address Organization Details Recorded Time 2020 sulfameth oxazole / trimethop rim medicatio n Not available Not available Not available 06/11/2022 32297 RxNorm Not Available Not Available Not Available Medications Name Sig Start Date Stop Date Status Note LastModified by Organization Details LastModified Time amoxicill in 500 mg capsule TAKE 1 CAPSULE BY MOUTH TWICE A DAY FOR 7 DAYS 06/11 completed Not Available Not Available Not Available trazodone 50 mg tablet TAKE 1 TABLET BY MOUTH TWICE AT BEDTIME NEEDED FOR SLEEP active Not Available Not Available No t Available sildenafi l 50 mg tablet TAKE 1 TABLET BY MOUTH DAILY NEEDED ONE HOUR BEFORE SEX, NOT MORE THAN ONCE PER DAY (ED) active Not Available Not Available No t Available naltrexon e 50 mg tablet Take 1 tablet every day by oral route for 14 days. active Not Available Not Available No t Available clonazepa m 0.5 mg tablet TAKE 1 TABLET BY MOUTH TWICE A DAY FOR 7 DAYS active Not Available Not Available No t Available clonazepa m 1 mg tablet active Not Available Not Available Not Available disulfira m 250 mg tablet Take 2 tablets every day by oral route. 06/22 completed This was done to run a drug interact ion check Not Available Not Available Not Available trazodone 100 mg tablet TAKE 1 TABLET BY MOUTH EVERYDAY AT BEDTIME active Not Available Not Available No t Available buspirone 30 mg tablet TAKE 1 TABLET BY MOUTH TWICE PER DAY active Not Available Not Available No t Available buspirone 10 mg tablet TAKE 1 TABLET BY MOUTH 3 TIMES A DAY 06/11 completed Not Available Not Available Not Available folic acid 1 mg tablet TAKE 1 TABLET BY MOUTH EVERY DAY active Not Available Not Available No t Available mirtazapi ne 15 mg tablet TAKE 1 TABLET BY MOUTH EVERYDAY AT BEDTIME active Not Available Not Available No t Available sertralin e 50 mg tablet TAKE 1 TAB DAILY FOR 10 DAYS AND THEN TAKE 2 TAB DAILY ORALLY. active Not Available Not Available No t Available hydroxyzi ne pamoate 25 mg capsule TAKE 1 CAPSULE BY MOUTH THREE TIMES PER DAY FOR 30 DAYS NEEDED FOR ANXIETY 06/11 completed Not Available Not Available Not Available Vitals Date Recorded Body height Body mass index (BMI) Body weight Systolic blood pressure Diastolic blood pressure Provider Name and Address Organization Details Last Updated DateTime 06/11/2022 182.88 cm 25 kg/m2 22361 g 119 mm[Hg] 89 mm[Hg] Odilon Michael MD [address] [place] [address], [address] , [place] [facility] 14:28:10 Date Recorded Body height Provider Name an d Address Organization Details Last Updated DateTime 06/22/2022 182.88 cm Odilon Michael MD [address] [place] [address], [address], [place] [facility] 06/23/2022 15:45:07 Social History Question Answer Notes LastModified by Organizat ion Details LastModified Time Tobacco Smoking Status Current Every Day Smoker Odilon iMchael MD [address] [place] [address], [address], [place] [facility] 06/15/2022 17:52:44 What Is Your Level Of Alcohol Consumption? Heavy Information not available 06/15/2022 Are You Currently Employed? Yes Information not available 06/15/2022 Which Illicit Or Recreational Drugs Have You Used? 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 06/15/2022 Information not available 06/15/2022 Do You Use Any Illicit Or Recreational Drugs? Yes Information not available 06/15/2022 Sex: Male Functional Status None recorded. Mental Status None recorded. Family History Relationship Description Onset Age of this Age Resolved Age Notes LastModified by Organization Details LastModified Time Father No current problems or disability Not available 06/15 17:54:35 Mother No current problems or disability Not available 06/15 17:54:35 Medical History No medical history recorded. Past Encounters Encounter ID Performer Location Encounter Start Date Encounter Closed Date Diagnosis/Indication Diagnosis SNOMED-CT Code Diagnosis ICD10 Code Diagnosis Note [id number] Odilon Michael MD [address] [place] [address] 06/11/2022 13:45:21 06/11/2022 14:28:25 Alcoholism 0969281 F10.20 History of pancreatitis 1589029792 9107 Z87.19 Tobacco user 192071701 Z 72.0 Hepatitis C screening 41 6767518 Z11.59 Anxiety disorder 9460975 06 F41.9 Follow up with Psychiatri st and Therapist [id number] Odilon Michael MD [address] [place] [address] 06/22/2022 12:33:29 06/22/2022 13:23:16 Alcoholism 8727310 F10.20 Aspartate aminotransferase serum level above reference range 608493170 R74.01 This may be related to alcoholism , informed needs follow up with Primary medical provider for further evaluation of elevated AST Health Concerns Section Related Observation LastModified by Organization Detai ls LastModified Time None Recorded Concern Status LastModified by Organization Details LastModified Time None Recorded Advance Directives Directive None Recorded Payers Encounter Date Sequence Insurance Name Policy Number Policy Rangel Covered Member ID Rangel Member ID Guarantor Name 06/11/2022 1 [employer] [id number] Douglas Wright [id number] Douglas Wright 06/22/2022 1 [employer] [id number] Douglas Wright [id number] Douglas Wright Notes Date Note Type Note Provider Name and Address Organization Details Recorded Time 06/11/2022 text/html Mr. Wright is se en to establish care for the vivitrol program , reports heavy drinking and reports he was somber for sometimes after ( inpatient rehab and sober living environment ) until 2 weeks ago when he relapsed again , reports this his threatening his relationship with his fiancee and will like to start on vivitrol , reports no previous use of vivitrol.Chronic medical conditions significant for chronic insomnia, anxiety , depression and tobacco use disorder).He is currently under the care of his Primary medical provider, psychiatrist and therapist for his chronic medical conditions, and also attends AA.See completed alcohol and other drugs of abuse questionnaire completed by patient. Odilon Michael MD [address] [place], [address], [place] [facility] 06/15/2022 18:03:23 06/22/2022 text/html Mr. Douglas Wright is seen with his fiancee for follow up on treatment for alcoholism.Reports he has been sober since on 06/11/2022.He initially requested for vivitrol injection and has been on oral Naltrexone trial until yesterday (06/22/2022), reports he discontinued Naltrexone 50 mg daily yesterday because of irritability , nausea and sometimes headache with Naltrexone.Patient informed with his intolerance to Natrexone tablet , he will not be able to get the vivitrol shot today , and also told to discontinue the Natrexone.He requested for Disulfiram and this his contraindicated with Sertraline ( the Sertraline was started by his Psychiatrist), patient informed to follow up with his Psychiatrist).He later during the exam said the symptoms he reported were not often and will like to continue on the Naltrexone until he is able to seen his Psychiatrist. He requested for Naltrexone tablet refill.Labs performed during the last visit discussed with patient and fiancee , and printed copies given to him Odilon Michael MD [address] [facility], [place], [address], [facility] 06/23/2022 15:52:23
--- OUTSIDE RECORDS SUMMARY | 2024-07-28 17:24 | XMS_ITS | Clinical Summary ---
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 (07/07/2024 4:14 PM PRESIDENT + PUBLISHER) Report Endoscopy POC Endoscopy Department Report __ _ Patient Name: Douglas Wright Procedure Date: 07/07/2024 4:14 PM Date of : 1990 Classification: Inpatient Gender: Male Ethnicity: Not or Race: White __ _ Providers: Moy Zarco MD, Katerin Young MD (Fellow) Referring MD: Procedure: Upper GI endoscopy Indications: Melena Medications: Monitored Anesthesia Care Description of Procedure: After obtaining informed consent, the endoscope was passed under direct vision. Throughout the procedure, the patient's blood pressure, pulse, and oxygen saturations were monitored continuously. The Endoscope was introduced through the mouth, and advanced to the second part of duodenum. The upper GI endoscopy was accomplished without difficulty. The patient tolerated the procedure well. Findings: The examined esophagus was normal. There is no endoscopic evidence of esophagitis or varices in the lower third of the esophagus. Esophagogastric landmarks were identified: the Z-line was found at 40 cm, the gastroesophageal junction was found at 40 cm and the site of hiatal narrowing was found at 40 cm from the incisors. One non-bleeding linear gastric ulcer with pigmented material was found at the pylorus. The lesion was 8 mm in largest dimension. Scattered mild inflammation characterized by erosions and aphthous ulcerations was found at the incisura and in the gastric antrum. Biopsies were taken with a cold forceps for histology. Type 1 isolated gastric varices (IGV1, varices located in the fundus) with no bleeding were found in the gastric fundus. There were no stigmata of recent bleeding. They were 1 mm in largest diameter. The exam of the stomach was otherwise normal. Scattered mild inflammation characterized by erosions was found in the duodenal bulb. The second portion of the duodenum was normal. Estimated Blood Loss: Estimated blood loss was minimal. Complications: No immediate complications. Impression: - Normal esophagus. - Esophagogastric landmarks identified. - Non-bleeding gastric ulcer at the pylorus with pigmented material. - Mild erosive gastritis. Biopsied. - Type 1 isolated gastric varices (IGV1, varices located in the fundus), without bleeding. - Duodenitis. - Normal second portion of the duodenum. Recommendation: - Resume previous diet. - Use a proton pump inhibitor IV BID in the hospittal then po QD indefinitely - Monitor for rebleeding ( H&H, stools, VS). - CTA if re-bleeds. Attending Participation: I was present and participated during the entire procedure, including non-montero portions. Procedure Code(s): --- Professional --- 67532, Esophagogastroduode noscopy, flexible, transoral; with biopsy, single or multiple Diagnosis Code(s): --- Professional --- K25.9, Gastric ulcer, unspecified as acute or chronic, without hemorrhage or perforation K29.70, Gastritis, unspecified, without bleeding I86.4, Gastric varices K29.80, Duodenitis without bleeding K92.1, Melena (includes Hematochezia) CPT copyright 2021 [employer]. All rights reserved. The codes documented in this report are preliminary and upon automobile parts assembler review may be revised to meet current compliance requirements. Moy Zarco MD 07/07/2024 5:01:11 PM Note Initiated On: 07/07/2024 4:14 PM Number of Addenda: 0 [facility] [address] [facility], [place] [address] [facility] 07/07/2024 4:14 PM PRESIDENT + PUBLISHER Clayton Chowdary MD GI PROCEDURE ORDERAB LES [facility] * TRANSFUSE RED BLOOD CELL LEUKOREDUCED UNIT(S) (07/06/2024 7:32 PM PRESIDENT + PUBLISHER) Christiano Graham MD NURSING - BLOOD PROD TRANSFUSION * CT Angio Abdomen Pelvis (07/06/2024 4:53 PM PRESIDENT + PUBLISHER) Anatomical Region Laterality Modality Abdomen, Pelvis Computed Tomogra phy 07/06/2024 5:20 PM PRESIDENT + PUBLISHER Impressions 07/06/2024 5:51 PM PRESIDENT + PUBLISHER Impression: 1.Redemonstration of pancreatic atrophic appearance with adjacent fat stranding, raises question of pancreatitis. 2.5 mm pancreatic cystic lesions in the pancreatic body and tail. This may be seen with IPMN and, or acute fluid collection/pseudocyst. 3.Hepatic steatosis. 4.No evidence of active contrast extravasation. 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 Report drafted by Thad Posey (resident) IMarj MD have personally reviewed and interpreted this examination/study. > Interpreting Provider: Marj Patino MD on 07/06/2024 5:51 PM Narrative 07/06/2024 5:51 PM PRESIDENT + PUBLISHER PROCEDURE: CT ANGIO ABDOMEN PELVIS, DATE/TIME OF EXAM: 07/06/2024 4:54 PM, LOCATION [facility] INDICATION: K85.00: Idiopathic acute pancreatitis, unspecified complication status (HCC) D64.9: Anemia, unspecified type ADDITIONAL CLINICAL INFORMATION: Ordering Provider Reason For Exam: concnerns for intraabdominal bleeding EXAMINATION: CT angiography of the abdomen and pelvis TECHNIQUE: CT of the abdomen and pelvis was performed prior to and following the uneventful administration of 100 mL of Isovue 370 intravenous contrast according to an angiographic protocol. Multiplanar reconstructions and post processed 3-D images were produced. Clinical Information HISTORY: K85.00: Idiopathic acute pancreatitis, unspecified complication status (HCC) D64.9: Anemia, unspecified type COMPARISON: CT abdomen pelvis dated 06/30/2024 Findings Abdominal aorta: There is no aortic dissection, intramural hematoma, penetrating atherosclerotic ulcer, or aneurysm. The aorta is normal in course and caliber. Abdominal aortic branches: Celiac axis: Patent without significant focal stenosis. Superior mesenteric artery: Patent without significant focal stenosis. Inferior mesenteric artery: Patent without significant focal stenosis. Right renal artery: Patent without significant focal stenosis. Accessory renal artery. Left renal artery: Patent without significant focal stenosis. Accessory renal artery. Right common iliac artery: Patent without significant focal stenosis. There is a aneurysmal dilatation of common femoral artery, measuring up to 8 mm, just before its bifurcation. Right external iliac artery: Patent without significant focal stenosis. Right internal iliac artery: Patent without significant focal stenosis. Left common iliac artery: Patent without significant focal stenosis. Left external iliac artery: Patent without significant focal stenosis. Left internal iliac artery: Patent without significant focal stenosis. Lower Chest: Mild bilateral dependent atelectasis. Hepatobiliary: Hepatic steatosis. No focal lesion. The gallbladder is normal. Pancreas: Unchanged atrophic appearance of the pancreas, with adjacent fat stranding, raises question of pancreatitis. Unchanged appearance of a 5 mm cyst, likely continuous with the pancreatic duct (series 3 image 60) indeterminant but may be seen with IPMN or acute fluid collection/pseudocyst. An additional cystic lesion in the pancreatic tail (series 7 image 43). Spleen: Normal. Kidneys: Several subcentimeter hypodensities in the left kidney that is too small to characterize, but statistically most likely representing cysts. Adrenals: Normal. Retroperitoneum: Normal. Gastrointestinal: The stomach and visualized loops of bowel are unremarkable. Especially, no evidence of active extravasation to suggest active bleeding. Appendix: Normal. Mesentery: Normal. Pelvic Structures: Normal. Vasculature: Scattered atherosclerotic vasculature changes. Bones: The visible osseous structures are intact. Soft tissues: Normal. Procedure Note Marj Patino MD - 07/06/2024 PROCEDURE: CT ANGIO ABDOMEN PELVIS, DATE/TIME OF EXAM: 07/06/2024 4:54PM, LOCATION [facility] INDICATION: K85.00: Idiopathic acute pancreatitis, unspecified complication status (HCC) D64.9: Anemia, unspecified type ADDITIONAL CLINICAL INFORMATION: Ordering Provider Reason For Exam: concnerns for intraabdominalbleeding EXAMINATION: CT angiography of the abdomen and pelvis TECHNIQUE: CT of the abdomen and pelvis was performed prior to and following the uneventful administration of 100 mL of Isovue 370 intravenous contrast according to an angiographic protocol. Multiplanar reconstructions andpost processed 3-D images were produced. Clinical Information HISTORY: K85.00: Idiopathic acute pancreatitis, unspecified complication status (HCC) D64.9: Anemia, unspecified type COMPARISON: CT abdomen pelvis dated 06/30/2024 Findings Abdominal aorta: There is no aortic dissection, intramural hematoma, penetrating atherosclerotic ulcer, or aneurysm. The aorta is normal in course and caliber. Abdominal aortic branches: Celiac axis: Patent without significant focal stenosis. Superior mesenteric artery: Patent without significant focal stenosis. Inferior mesenteric artery: Patent without significant focal stenosis. Right renal artery: Patent without significant focal stenosis. Accessory renal artery. Left renal artery: Patent without significant focal stenosis. Accessory renal artery. Right common iliac artery: Patent without significant focal stenosis.There is a aneurysmal dilatation of common femoral artery, measuring up to 8mm, just before its bifurcation. Right external iliac artery: Patent without significant focal stenosis. Right internal iliac artery: Patent without significant focal stenosis. Left common iliac artery: Patent without significant focal stenosis. Left external iliac artery: Patent without significant focal stenosis. Left internal iliac artery: Patent without significant focal stenosis. Lower Chest: Mild bilateral dependent atelectasis. Hepatobiliary: Hepatic steatosis. No focal lesion. The gallbladder is normal. Pancreas: Unchanged atrophic appearance of the pancreas, with adjacent fatstranding, raises question of pancreatitis. Unchanged appearance of a 5 mm cyst, likely continuous with thepancreatic duct (series 3 image 60) indeterminant but may be seen with IPMN oracute fluid collection/pseudocyst. An additional cystic lesion in thepancreatic tail (series 7 image 43). Spleen: Normal. Kidneys: Several subcentimeter hypodensities in the left kidney that is too smallto characterize, but statistically most likely representing cysts. Adrenals: Normal. Retroperitoneum: Normal. Gastrointestinal: The stomach and visualized loops of bowel are unremarkable. Especially,no evidence of active extravasation to suggest active bleeding. Appendix: Normal. Mesentery: Normal. Pelvic Structures: Normal. Vasculature: Scattered atherosclerotic vasculature changes. Bones: The visible osseous structures are intact. Soft tissues: Normal. Impression: 1.Redemonstration of pancreatic atrophic appearance with adjacent fat stranding, raises question of pancreatitis. 2.5 mm pancreatic cystic lesions in the pancreatic body and tail. Thismay be seen with IPMN and, or acute fluid collection/pseudocyst. 3.Hepatic steatosis. 4.No evidence of active contrast extravasation. 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 Report drafted by Thad Posey (resident) I, Marj Patino MD have personally reviewed and interpreted this examination/study. > Interpreting Provider: Marj Patino MD on 07/06/2024 5:51 PM Christiano Graham MD CT ORDERABLES * TYPE + SCREEN PANEL (07/06/2024 2:46 PM PRESIDENT + PUBLISHER) Antibody Screen NEG 4:07 PM PRESIDENT + PUBLISHER [facility] ABO Rh A POS 07/06/2024 4:07 PM PRESIDENT + PUBLISHER [facility] Blood Bank BLOOD SPECIMEN / Unknown Venipuncture / Unknown 07/06/2024 2:46 PM PRESIDENT + PUBLISHER 07/06/2024 3:58 PM PRESIDENT + PUBLISHER Christiano Graham MD LAB - BLOOD BAN K ORDERABLES [facility] [address] [place] [address], [place] [phone] * DIRECT JOHN (07/06/2024 2:46 PM PRESIDENT + PUBLISHER) Direct John (BRYAN) NEG 07/06/2024 3:54 PM PRESIDENT + PUBLISHER [facility] Blood BLOOD SPECIMEN / Unknown Venipuncture / Unknown 07/06/2024 2:46 PM PRESIDENT + PUBLISHER 07/06/2024 2:55 PM PRESIDENT + PUBLISHER Christiano Graham MD LAB - BLOOD BAN K ORDERABLES [facility] [address] [place] [address], [place] [phone] * (ABNORMAL) RETIC COUNT (07/06/2024 2:46 PM PRESIDENT + PUBLISHER) [facility] Reticulocyte Percent 4.48(H) 0.50 - 2.40 % 07/06/2024 3:05 PM [facility] Reticulocyte Absolute 0.0869 0.0200 - 0.1100 x10E6/uL 07/06/2024 3:05 PM [facility] Ret-HE 36.6 29.0 - 37.9 pg 07/06/2024 3:05 PM [facility] Immature Reticulocyte Fraction 18.2(H) 1.8 - 15.2 % 07/06/2024 3:05 PM [facility] Blood BLOOD SPECIMEN / Unknown Venipuncture / Unknown 07/06/2024 2:46 PM PRESIDENT + PUBLISHER 07/06/2024 2:52 PM PRESIDENT + PUBLISHER Christiano Graham MD LAB - HEMATOLOG Y ORDERABLES [address] [address], [facility] [phone] * LDH BLOOD (07/06/2024 2:46 PM PRESIDENT + PUBLISHER) [facility] LDH Total 227 125 - 243 Units/L 07/06/2024 3:22 PM [facility] Blood BLOOD SPECIMEN / Unknown Venipuncture / Unknown 07/06/2024 2:46 PM PRESIDENT + PUBLISHER 07/06/2024 2:52 PM PRESIDENT + PUBLISHER Christiano Graham MD LAB - CHEMISTRY ORDERABLES [address] [address], [facility] [phone] * FOLATE (07/06/2024 2:46 PM PRESIDENT + PUBLISHER) [facility] Folate 17.8 7.0 - 31.4 ng/mL 07/06/2024 3:54 PM [facility] Blood BLOOD SPECIMEN / Unknown Venipuncture / Unknown 07/06/2024 2:46 PM PRESIDENT + PUBLISHER 07/06/2024 2:52 PM PRESIDENT + PUBLISHER Christiano Graham MD LAB - CHEMISTRY ORDERABLES Performing Organization Address City/[facility]/ZIP Co de Phone Number [facility] [address] [place] [address], [place] [phone] * BILIRUBIN TOTAL+DIRECT BLOOD PANEL (07/06/2024 2:46 PM PRESIDENT + PUBLISHER) Bilirubin Total 0.2 0.2 - 1.2 mg/dL 08/2024 3:22 PM PRESIDENT + PUBLISHER [facility] Bilirubin Conjugated 0.1 0.1 - 0.5 mg/dL 07/06/2024 3:22 PM PRESIDENT + PUBLISHER [facility] Bilirubin Unconjugated 0.1 Unconjugated Bilirubin is a calculated value: Reference ranges have not been established. mg/dL 07/06/2024 3:22 PM PRESIDENT + PUBLISHER [facility] Blood BLOOD SPECIMEN / Unknown Venipuncture / Unknown 07/06/2024 2:46 PM PRESIDENT + PUBLISHER 07/06/2024 2:52 PM PRESIDENT + PUBLISHER Christiano Graham MD LAB - CHEMISTRY ORDERABLES Performing Organization Address [facility] Co de Phone Number [address] [address], [place] [phone] * (ABNORMAL) VITAMIN B12 (07/06/2024 2:46 PM PRESIDENT + PUBLISHER) Vitamin B12 1,641(H) 213 - 816 pg/mL 07/06/2024 3:54 PM PRESIDENT + PUBLISHER [facility] Blood BLOOD SPECIMEN / Unknown Venipuncture / Unknown 07/06/2024 2:46 PM PRESIDENT + PUBLISHER 07/06/2024 2:52 PM PRESIDENT + PUBLISHER Christiano Graham MD LAB - CHEMISTRY ORDERABLES Performing Organization Address City/[facility]/ZIP Co de Phone Number [address] [address], [place] [phone] * (ABNORMAL) IRON + TRANSFERRIN PANEL (07/06/2024 2:46 PM PRESIDENT + PUBLISHER) Iron 47(L) 50 - 175 ug/dL 07/06/2024 3:51 PM PRESIDENT + PUBLISHER [facility] Transferrin 210 174 - 382 mg/dL 07/06/2024 3:51 PM [facility] Transferrin Saturation % 18 16 - 50 % 07/06/2024 3:51 PM [facility] TIBC Calculated 263 240 - 450 ug/dL 07/06/2024 3:51 PM PRESIDENT + PUBLISHER [facility] Blood BLOOD SPECIMEN / Unknown Venipuncture / Unknown 07/06/2024 2:46 PM PRESIDENT + PUBLISHER 07/06/2024 2:49 PM PRESIDENT + PUBLISHER Christiano Graham MD LAB - CHEMISTRY ORDERABLES Performing Organization Address [facility]/ZIP Co de Phone Number [address] [address], [place] [phone] * HAPTOGLOBIN (07/06/2024 2:46 PM PRESIDENT + PUBLISHER) Haptoglobin 54 14 - 258 mg/dL 07/06/2024 3:51 PM PRESIDENT + PUBLISHER [facility] Blood BLOOD SPECIMEN / Unknown Venipuncture / Unknown 07/06/2024 2:46 PM PRESIDENT + PUBLISHER 07/06/2024 2:49 PM PRESIDENT + PUBLISHER Christiano Graham MD LAB - CHEMISTRY ORDERABLES Performing Organization Address City/[facility]/ZIP Co de Phone Number [address] [address], [place] [phone] * FERRITIN (07/06/2024 2:46 PM PRESIDENT + PUBLISHER) Ferritin 146 22 - 275 ng/mL 07/06/2024 4:06 PM PRESIDENT + PUBLISHER [facility] Blood BLOOD SPECIMEN / Unknown Venipuncture / Unknown 07/06/2024 2:46 PM PRESIDENT + PUBLISHER 07/06/2024 2:49 PM PRESIDENT + PUBLISHER Christiano Graham MD LAB - CHEMISTRY ORDERABLES Performing Organization Address City/[facility]/ZIP Co de Phone Number [facility] [address] [place] [address], [facility] [phone] * (ABNORMAL) CBC W AUTO DIFFERENTIAL (07/06/2024 11:50 AM PRESIDENT + PUBLISHER) Only the most recent of2 resultswithin the time period is included. WBC 4.5 4.0 - 10.7 x10E9/L 07/06/2024 12:11 PM [facility] RBC Count 1.90(L) 4.30 - 5.80 x10E12/L 07/06/2024 12:11 PM [facility] Hemoglobin 6.2(L) 13.3 - 17.5 g/dL 07/06/2024 12:11 PM [facility] Hematocrit 17.4(L) 38.7 - 51.1 % 07/06/2024 12:11 PM [facility] MCV 91.6 80.0 - 98.0 fL 07/06/2024 12:11 PM [facility] MCH 32.6 26.7 - 33.6 pg 07/06/2024 12:11 PM [facility] MCHC 35.6 31.7 - 36.3 g/dL 07/06/2024 12:11 PM [facility] RDW-CV 15.9(H) 11.3 - 14.8 % 07/06/2024 12:11 PM [facility] Platelet Count 141(L) 150 - 420 x10E9/L 07/06/2024 12:11 PM [facility] MPV 9.8 7.8 - 11.4 fL 07/06/2024 12:11 PM [facility] Neutrophil % 59.8 41.0 - 74.0 % 07/06/2024 12:11 PM [facility] Lymphocyte % 26.0 17.0 - 47.0 % 07/06/2024 12:11 PM [facility] Monocyte % 11.6(H) 3.0 - 11.0 % 07/06/2024 12:11 PM [facility] Eosinophil % 1.8 0.0 - 7.0 % 07/06/2024 12:11 PM [facility] Basophil % 0.4 0.0 - 1.6 % 07/06/2024 12:11 PM [facility] Immature Granulocytes % 0.4 0.0 - 1.0 % 07/06/2024 12:11 PM [facility] Neutrophil Absolute 2.67 1.60 - 7.50 x10E9/L 07/06/2024 12:11 PM [facility] Lymphocyte Absolute 1.16 1.00 - 4.40 x10E9/L 07/06/2024 12:11 PM [facility] Monocyte Absolute 0.52 0.15 - 1.00 x10E9/L 07/06/2024 12:11 PM [facility] Eosinophil Absolute 0.08 0.00 - 0.60 x10E9/L 07/06/2024 12:11 PM [facility] Basophil Absolute 0.02 0.00 - 0.13 x10E9/L 07/06/2024 12:11 PM [facility] Blood BLOOD SPECIMEN / Unknown Venipuncture / Unknown 07/06/2024 11:50 AM PRESIDENT + PUBLISHER 07/06/2024 12:02 PM [facility] Christiano Graham MD LAB - HEMATOLOG Y ORDERABLES Performing Organization Address City/State/[facility] Co de Phone Number [address] [address], [facility] [phone] * (ABNORMAL) CBC W/O DIFFERENTIAL (07/06/2024 4:32 AM PRESIDENT + PUBLISHER) Only the most recent of4 resultswithin the time period is included. WBC 3.4(L) 4.0 - 10.7 x10E9/L 07/06/2024 5:29 AM [facility] RBC Count 1.97(L) 4.30 - 5.80 x10E12/L 07/06/2024 5:29 AM [facility] Hemoglobin 6.3(L) 13.3 - 17.5 g/dL 07/06/2024 5:29 AM [facility] Hematocrit 18.0(L) 38.7 - 51.1 % 07/06/2024 5:29 AM [facility] MCV 91.4 80.0 - 98.0 fL 07/06/2024 5:29 AM [facility] MCH 32.0 26.7 - 33.6 pg 07/06/2024 5:29 AM [facility] MCHC 35.0 31.7 - 36.3 g/dL 07/06/2024 5:29 AM [facility] RDW-CV 15.6(H) 11.3 - 14.8 % 07/06/2024 5:29 AM [facility] Platelet Count 138(L) 150 - 420 x10E9/L 07/06/2024 5:29 AM [facility] MPV 9.6 7.8 - 11.4 fL 07/06/2024 5:29 AM [facility] Blood BLOOD SPECIMEN / Unknown Venipuncture / Unknown 07/06/2024 4:32 AM PRESIDENT + PUBLISHER 07/06/2024 5:23 AM PRESIDENT + PUBLISHER Jamel Cavazos MD LAB - HEMATOLOGY ORD ERABLES [address] [address], [place] [phone] * (ABNORMAL) PHOSPHORUS BLOOD (07/06/2024 4:32 AM PRESIDENT + PUBLISHER) Only the most recent of3 resultswithin the time period is included. Phosphorus 6.1(H) 2.8 - 5.1 mg/dL 07/06/2024 5:50 AM [facility] Blood BLOOD SPECIMEN / Unknown Venipuncture / Unknown 07/06/2024 4:32 AM PRESIDENT + PUBLISHER 07/06/2024 5:23 AM PRESIDENT + PUBLISHER Jamel Cavazos MD LAB - CHEMISTRY ORDE RABCRYSTAL [address] [address], [place] [phone] * MAGNESIUM BLOOD (07/06/2024 4:32 AM PRESIDENT + PUBLISHER) Only the most recent of5 resultswithin the time period is included. [facility] Magnesium 2.1 1.6 - 2.6 mg/dL 07/06/2024 5:50 AM PRESIDENT + PUBLISHER [facility] Blood BLOOD SPECIMEN / Unknown Venipuncture / Unknown 07/06/2024 4:32 AM PRESIDENT + PUBLISHER 07/06/2024 5:23 AM PRESIDENT + PUBLISHER Jamel Cavazos MD LAB - CHEMISTRY SHREYA BOJORQUEZ Performing Organization Address [facility] Co de Phone Number [facility] [address] [place] [phone], [facility] [phone] * C-PEPTIDE (07/05/2024 1:52 PM PRESIDENT + PUBLISHER) [facility] C-Peptide 1.8 0.5 - 3.3 ng/mL 07/07/2024 1:34 AM PRESIDENT + PUBLISHER [facility] ([facility]) Comment: INTERPRETIVE INFORMATION: Serum, C-Peptide Reference Interval applies to fasting specimens. To convert to nmol/L, multiply by 0.33 Performed By: [facility] [address] [place] [address] Mission Worker: Hamilton Martinez MD, PhD CLIA Number: [id number] Blood BLOOD SPECIMEN / Unknown Venipuncture / Unknown 07/05/2024 1:52 PM PRESIDENT + PUBLISHER 07/05/2024 1:57 PM PRESIDENT + PUBLISHER Jamel Cavazos MD LAB - CHEMISTRY SHREYA BOJORQUEZ Performing Organization Address [facility] de Phone Number [facility]) [address] * (ABNORMAL) HEMOGLOBIN A1C (07/05/2024 1:52 PM PRESIDENT + PUBLISHER) [facility] Hemoglobin A1c 6.0(H) <=5.6 % 07/05/2024 4:19 PM [facility] Estimated Average Glucose 126 mg/dL 07/05/2024 4:19 PM [facility] Comment: HbA1c Interpretation: Normal : < 5.7% Pre-diabetes: 5.7-6.4% Diabetes: Equal to or greater than 6.5% Test results diagnostic of diabetes should be repeated for confirmation. Treatment target values recommended by ADA and other clinical organizations should be used to evaluate metabolic control in patients. Reference: [place] [employer], Standards of Care in Diabetes -2020 In patients 70 years and older consider HbA1c target range of 7.0-7.5% (Reference: Ruddy Koenig et al. MAIDADA. 2012) The Sebia assay for the measurement of HbA1c is a National Glycohemoglobin Standardization Program (NGSP) certified method. Blood BLOOD SPECIMEN / Unknown Venipuncture / Unknown 07/05/2024 1:52 PM PRESIDENT + PUBLISHER 07/05/2024 1:59 PM PRESIDENT + PUBLISHER Jamel Cavazos MD LAB - CHEMISTRY SHREYA BOJORQUEZ Performing Organization Address City/[facility]/ZIP Co de Phone Number [address] [address], [place] [phone] * LIPASE BLOOD (07/05/2024 1:52 PM PRESIDENT + PUBLISHER) Only the most recent of2 resultswithin the time period is included. Lipase 9 8 - 78 U/L 07/05/2024 2:26 PM PRESIDENT + PUBLISHER [facility] Blood BLOOD SPECIMEN / Unknown Venipuncture / Unknown 07/05/2024 1:52 PM PRESIDENT + PUBLISHER 07/05/2024 1:59 PM PRESIDENT + PUBLISHER Narrative [facility] - 07/05/2024 2:26 PM PRESIDENT + PUBLISHER Lipase results from the Digital Guardian Alinity analyzer may not be comparable with other methodologies. Jamel Cavazos MD LAB - CHEMISTRY SHREYA BOJORQUEZ Performing Organization Address City/[facility]/ZIP Co de Phone Number [address] [address], [place] [phone] * XR Chest 1Vw Portable (07/05/2024 9:52 AM PRESIDENT + PUBLISHER) Only the most recent of2 resultswithin the time period is included. Anatomical Region Laterality Modality Chest Digital Radiogra phy 07/05/2024 3:07 PM PRESIDENT + PUBLISHER Narrative 07/05/2024 9:03 PM PRESIDENT + PUBLISHER PROCEDURE: XR CHEST 1VW PORTABLE, DATE/TIME OF EXAM: 07/05/2024 10:05 AM, LOCATION [facility] INDICATION: K85.00: Idiopathic acute pancreatitis, unspecified complication status (HCC) ADDITIONAL CLINICAL INFORMATION: Ordering Provider Reason For Exam: pleural fluid? pna? pericardial effusion? COMPARISON: Chest radiograph 06/30/2024 FINDINGS/IMPRESSION: Lines, tubes, hardware: *A right upper extremity PICC line is redemonstrated with the tip superimposing right atrium. There is no focal consolidation, pleural effusion, or pneumothorax. The cardiomediastinal silhouette is normal. > Dictated by GIFTY Downey (chief radiology). Ronal Albright MD have personally reviewed and interpreted this examination/study. > Interpreting Provider: Ronal Spencer MD on 07/05/2024 9:03 PM Procedure Note Ronal Spencer MD - 07/05/2024 PROCEDURE: XR CHEST 1VW PORTABLE, DATE/TIME OF EXAM: 07/05/2024 10:05AM, LOCATION [facility] INDICATION: K85.00: Idiopathic acute pancreatitis, unspecified complication status (HCC) ADDITIONAL CLINICAL INFORMATION: Ordering Provider Reason For Exam: pleural fluid? pna? pericardial effusion? COMPARISON: Chest radiograph 06/30/2024 FINDINGS/IMPRESSION: Lines, tubes, hardware: *A right upper extremity PICC line is redemonstrated with the tip superimposing right atrium. There is no focal consolidation, pleural effusion, or pneumothorax. The cardiomediastinal silhouette is normal. > Dictated by GIFTY Downey (chief radiology). Ronal Albright MD have personally reviewed and interpreted this examination/study. > Interpreting Provider: Ronal Spencer MD on 07/05/2024 9:03 PM Jamel Cavazos MD DIAGNOSTIC IMAGING O RDERABLES * EKG 12-LEAD (07/05/2024 8:40 AM PRESIDENT + PUBLISHER) Only the most recent of5 resultswithin the time period is included. Ventricular Rate 101 BPM [facility] Atrial Rate 101 BPM [facility] MUSE P-R Interval 146 ms [facility] M[facility] QRS Duration ms 88 ms [facility] MUSE Q-T Interval ms 326 ms [facility] QTC Calculation (Bezet) 422 ms [facility] Calculated P [place] 32 degrees [facility] Calculated R [place] 83 degrees [facility] Calculated T [place] 32 degrees [facility] Interpretation EKG SINUS TACHYCARDIA LOW VOLTAGE QRS SEPTAL INFARCT , AGE UNDETERMINED T WAVE ABNORMALITY, CONSIDER ANTEROLATERAL ISCHEMIA ABNORMAL ECG WHEN COMPARED WITH ECG OF 01-JUL-2024 03:16, NO SIGNIFICANT CHANGE WAS FOUND Confirmed by MD STEFF, GLORIA ([id number]) on 07/05/2024 12:50:27 PM [facility] 07/05/2024 8:40 AM PRESIDENT + PUBLISHER 07/05/2024 12:50 PM PRESIDENT + PUBLISHER Jamel Cavazos MD ECG ORDERABLES [facility] M[facility] * XR Abdomen Kub Portable (07/02/2024 8:41 AM PRESIDENT + PUBLISHER) Only the most recent of2 resultswithin the time period is included. Anatomical Region Laterality Modality Abdomen Digital Radiogra phy 07/02/2024 2:55 PM PRESIDENT + PUBLISHER Narrative 07/03/2024 12:53 AM PRESIDENT + PUBLISHER PROCEDURE: XR ABDOMEN KUB PORTABLE, DATE/TIME OF EXAM: 07/02/2024 8:41 AM, LOCATION [facility] INDICATION: K56.7: Ileus (HCC) ADDITIONAL CLINICAL INFORMATION: Ordering Provider Reason For Exam: ileus Technologist Note: Additional: COMPARISON: Abdomen x-ray 07/01/2024. TECHNIQUE: Supine frontal radiograph of the abdomen. FINDINGS/ IMPRESSION: Multiple mildly dilated loops of small and large bowel located centrally may represent ileus. No evidence of free air on this supine exam. > Dictated by Juana Esquivel MD, (chief radiology). I, Ronal Spencer MD have personally reviewed and interpreted this examination/study. > Interpreting Provider: Ronal Spencer MD on 07/03/2024 12:53 AM Procedure Note Ronal Spencer MD - 07/03/2024 PROCEDURE: XR ABDOMEN KUB PORTABLE, DATE/TIME OF EXAM: 07/02/2024 8:41AM, LOCATION [facility] INDICATION: K56.7: Ileus (HCC) ADDITIONAL CLINICAL INFORMATION: Ordering Provider Reason For Exam: ileus Technologist Note: Additional: COMPARISON: Abdomen x-ray 07/01/2024. TECHNIQUE: Supine frontal radiograph of the abdomen. FINDINGS/ IMPRESSION: Multiple mildly dilated loops of small and large bowel located centrally may represent ileus. No evidence of free air on this supine exam. > Dictated by Juana Esquivel MD, (chief radiology). I, Ronal Spencer MD have personally reviewed and interpreted this examination/study. > Interpreting Provider: Ronal Spencer MD on 07/03/2024 12:53 AM Jamel Cavazos MD DIAGNOSTIC IMAGING O RDERABLES * (ABNORMAL) BASIC METABOLIC PANEL (CALCIUM TOTAL) (07/01/2024 4:22 AM [facility]) BUN 31(H) 7 - 26 mg/dL 07/01/2024 5:19 AM [facility] Creatinine 0.75 0.71 - 1.16 mg/dL 07/01/2024 5:19 AM [facility] Sodium 128(L) 136 - 145 mmol/L 07/01/2024 5:19 AM [facility] Potassium 3.9 3.5 - 4.5 mmol/L 07/01/2024 5:19 AM [facility] Chloride 88(L) 98 - 107 mmol/L 07/01/2024 5:19 AM [facility] CO2 24 22 - 29 mmol/L 07/01/2024 5:19 AM [facility] Glucose 136(H) 70 - 99 mg/dL 07/01/2024 5:19 AM [facility] Calcium 10.0 8.4 - 10.2 mg/dL 07/01/2024 5:19 AM [facility] Anion Gap 16 6 - 16 07/01/2024 5:19 AM [facility] BUN/Creatinine Ratio 41(H) 7 - 23 07/01/2024 5:19 AM [facility] Osmolality Calculated 275 275 - 295 mOsm/kg 07/01/2024 5:19 AM [facility] eGFR by CKD-EPI >90 >=90 mL/min/1.7 3 m2 07/01/2024 5:19 AM [facility] Blood BLOOD SPECIMEN / Unknown Lab Venipuncture / Unknown 07/01/2024 4:22 AM PRESIDENT + PUBLISHER 07/01/2024 4:46 AM PRESIDENT + PUBLISHER Que Chow MD LAB - CHEMISTRY ORDJoshua BOJORQUEZ Performing Organization Address City/[facility]/ZIP Co de Phone Number [facility] [address] [place] [address], [facility] [phone] * (ABNORMAL) HEPATIC FUNCTION PANEL (07/01/2024 4:22 AM PRESIDENT + PUBLISHER) Pathologist [facility] Protein Total 7.7 6.0 - 8.3 g/dL 025 9:46 AM [facility] Albumin 4.9 3.4 - 5.0 g/dL 07/01/2024 9:46 AM [facility] Bilirubin Total 1.0 0.2 - 1.2 mg/dL 06/06 9:46 AM [facility] Bilirubin Conjugated 0.3 0.1 - 0.5 mg/dL 07/01/2024 9:46 AM [facility] Bilirubin Unconjugated 0.7 Unconjugated Bilirubin is a calculated value: Reference ranges have not been established. mg/dL 07/01/2024 9:46 AM [facility] Alkaline Phosphatase 76 40 - 150 U/L 07/01/2024 9:46 AM [facility] ALT 91(H) 5 - 55 U/L 07/01/2024 9:46 AM [facility] AST 111(H) 5 - 34 U/L 07/01/2024 9:46 AM [facility] Albumin/Globulin Ratio 1.8 1.1 - 2.3 07/01/2024 9:46 AM [facility] Blood BLOOD SPECIMEN / Unknown Lab Venipuncture / Unknown 07/01/2024 4:22 AM PRESIDENT + PUBLISHER 07/01/2024 4:46 AM PRESIDENT + PUBLISHER Jamel Cavazos MD LAB - CHEMISTRY SHREYA BOJORQUEZ [facility] [address] [place] [phone] [phone] * CT ABDOMEN PELVIS W CONTRAST (06/30/2024 5:02 PM PRESIDENT + PUBLISHER) Anatomical Region Laterality Modality Abdomen, Pelvis Computed Tomogra phy 06/30/2024 5:08 PM PRESIDENT + PUBLISHER Impressions 06/30/2024 10:01 PM PRESIDENT + PUBLISHER Impression: 1.Pancreatic atrophy with mild adjacent fat stranding, which raises question of pancreatitis. Clinical correlation with lipase is recommended. 2.Previously described pancreatic tail region cystic lesion is intervally resolved. Additional 5 mm pancreatic cystic lesion in the pancreas body is indeterminate, but given prior history of pancreatitis, may represent a pseudocyst. 3.Significant distention of the stomach with an air-fluid level. There is wall thickening noted at the level of the gastric antrum which may be secondary to peristalsis although given the significant gastric distention with an air-fluid level, this may represent gastritis. Recommend clinical and endoscopic correlation if clinically indicated. 4.Hepatic steatosis. Report drafted by Thad Posey (resident) IScarlett MD have personally reviewed and interpreted this examination/study. > Interpreting Provider: Scarlett Biggs MD on 06/30/2024 10:01 PM Narrative 06/30/2024 10:01 PM PRESIDENT + PUBLISHER Procedure Information DATE: 06/30/2024 5:02 PM EXAMINATION: Computed tomography (CT) of the abdomen and pelvis with contrast TECHNIQUE: CT of the abdomen and pelvis was performed following the uneventful administration of 100 mL of Isovue 370 intravenous contrast according to standard protocol. Clinical Information HISTORY: R10.9: Abdominal pain, unspecified abdominal location COMPARISON: CT chest abdomen pelvis dated 11/14/2023 Findings Lower Chest: Mild bilateral dependent atelectasis. Hepatobiliary: Severe hepatic steatosis. Pancreas: Pancreas is atrophic. Previously described cystic lesion in the pancreatic tail is intervally resolved. Additional cystic lesion in the pancreas body (series 3 image 59) measuring 0.5 cm. Mild fat stranding adjacent to the pancreas, which raises question of pancreatitis (image 59, series 3). Spleen: Normal. Kidneys: There are several hypoattenuating lesions of the left kidney, that is too small to characterize, but statistically most likely representing cysts. Adrenals: Normal. Gastrointestinal: The stomach is significantly distended with an air-fluid level. The gastric antrum is is thickened which may represent peristalsis although cannot exclude gastritis given the significant proximal gastric distention. The colon appears normal in caliber without wall thickening. The appendix appears normal. Mesentery/retroperitoneum: No significant retroperitoneal or mesenteric lymphadenopathy. No free air or free fluid is present. Pelvic Structures: The bladder is normal. The prostate appears normal. There is no free pelvic fluid. Vasculature: Scattered atherosclerotic vasculature changes. Bones: The visible osseous structures are intact. Soft tissues: Normal. Procedure Note Maria Dolores Biggs MD - 06/30/2024 Procedure Information DATE: 06/30/2024 5:02 PM EXAMINATION: Computed tomography (CT) of the abdomen and pelvis with contrast TECHNIQUE: CT of the abdomen and pelvis was performed following the uneventful administration of 100 mL of Isovue 370 intravenous contrast according to standard protocol. Clinical Information HISTORY: R10.9: Abdominal pain, unspecified abdominal location COMPARISON: CT chest abdomen pelvis dated 11/14/2023 Findings Lower Chest: Mild bilateral dependent atelectasis. Hepatobiliary: Severe hepatic steatosis. Pancreas: Pancreas is atrophic. Previously described cystic lesion in thepancreatic tail is intervally resolved. Additional cystic lesion in the pancreasbody (series 3 image 59) measuring 0.5 cm. Mild fat stranding adjacent to the pancreas, which raises question of pancreatitis (image 59, series 3). Spleen: Normal. Kidneys: There are several hypoattenuating lesions of the left kidney, that istoo small to characterize, but statistically most likely representing cysts. Adrenals: Normal. Gastrointestinal: The stomach is significantly distended with an air-fluid level. Thegastric antrum is is thickened which may represent peristalsis although cannot exclude gastritis given the significant proximal gastric distention. The colon appears normal in caliber without wall thickening. The appendix appears normal. Mesentery/retroperitoneum: No significant retroperitoneal or mesenteric lymphadenopathy. No freeair or free fluid is present. Pelvic Structures: The bladder is normal. The prostate appears normal. There is no freepelvic fluid. Vasculature: Scattered atherosclerotic vasculature changes. Bones: The visible osseous structures are intact. Soft tissues: Normal. Impression: 1.Pancreatic atrophy with mild adjacent fat stranding, which raises question of pancreatitis. Clinical correlation with lipase isrecommended. 2.Previously described pancreatic tail region cystic lesion isintervally resolved. Additional 5 mm pancreatic cystic lesion in the pancreas bodyis indeterminate, but given prior history of pancreatitis, may represent a pseudocyst. 3.Significant distention of the stomach with an air-fluid level. Thereis wall thickening noted at the level of the gastric antrum which may be secondary to peristalsis although given the significant gastricdistention with an air-fluid level, this may represent gastritis. Recommendclinical and endoscopic correlation if clinically indicated. 4.Hepatic steatosis. Report drafted by Thad Posey (resident) Scarlett Albright MD have personally reviewed and interpreted this examination/study. > Interpreting Provider: Scarlett Biggs MD on 06/30/2024 10:01 PM Daryl Julian MD CT ORDERABLES * (ABNORMAL) TROPONIN-I HIGH SENSITIVE REFLEX 1HOUR (06/30/2024 3:57 PM PRESIDENT + PUBLISHER) [facility] Troponin I High Sensitive 71(H) <=35 ng/L 06/30/2024 4:42 PM PRESIDENT + PUBLISHER [facility] Delta Troponin I HS 4 <6 ng/L 06/30/2024 4:42 PM [facility] Blood BLOOD SPECIMEN / Unknown Venipuncture / Unknown 06/30/2024 3:57 PM PRESIDENT + PUBLISHER 06/30/2024 4:06 PM PRESIDENT + PUBLISHER Daryl Julian MD LAB - CHEMISTRY OR DERABLES Performing Organization Address [facility]/State/ZIP Co de Phone Number [facility] [address] [place] [phone], [facility] [phone] * (ABNORMAL) URINALYSIS REFLEX TO MICROSCOPIC NO CULTURE (06/30/2024 2:52 PM PRESIDENT + PUBLISHER) Color UA Yellow Yellow, Straw 06/30/2024 4:00 PM [facility] Clarity UA Clear Clear 06/30/2024 4:00 PM [facility] Glucose UA 4+(A) Normal 06/30/2024 4:00 PM [facility] Bilirubin UA 1+(A) Negative 06/30/2024 4:00 PM [facility] Ketone UA 4+(A) Negative 06/30/2024 4:00 PM [facility] Specific [place] UA 1.027 1.005 - 1.030 06/30/2024 4:00 PM [facility] Blood UA 2+(A) Negative 06/30/2024 4:00 PM [facility] pH UA 5.5 5.0 - 9.0 pH 06/30/2024 4:00 PM [facility] Protein UA 2+(A) Negative 06/30/2024 4:00 PM [facility] Urobilinogen UA 4.0(A) Normal mg/dL 025 4:00 PM [facility] Nitrite UA Negative Negative 06/30/2024 4:00 PM [facility] Leukocyte UA Negative Negative 06/30/2024 4:00 PM [facility] RBC UA 3-5 0 - 5 # /hpf 06/30/2024 4:00 PM [facility] WBC UA 0-5 0 - 5 # /hpf 06/30/2024 4:00 PM [facility] Bacteria UA None Seen None Seen 06/30/2024 4:00 PM [facility] Squamous Epithelial Cells 0-2 0 - 5 /hpf 06/30/2024 4:00 PM [facility] Mucus UA 2+ /LPF 06/30/2024 4:00 PM [facility] Urine URINE SPECIMEN OBTAINED BY CLEAN CATCH PROCEDURE / Unknown Collection / Unknown 06/30/2024 2:52 PM PRESIDENT + PUBLISHER 06/30/2024 2:58 PM [facility] Daryl Julian MD LAB - URINALYSIS O RDERABLES [facility] [address] [place] [phone], [facility] [phone] * (ABNORMAL) URINE DRUG SCREEN IMMUNOASSAY (06/30/2024 2:52 PM PRESIDENT + PUBLISHER) Pathologist [facility] Amphetamines Screen Urine Negative Negative : < 1000 ng/mL 06/30/2024 3:23 PM [facility] Barbiturates Screen Urine Negative Negative : < 200 ng/mL 06/30/2024 3:23 PM [facility] Benzodiazepine Screen Urine Negative Negative : < 200 ng/mL 06/30/2024 3:23 PM [facility] Opiates Urine Positive(A) Negative : < 300 ng/mL 06/30/2024 3:23 PM [facility] Comment:Positive urine opiat e screening results should be confirmed by another generally accepted non-immunological method such as gas chromatography or mass spectrometry. Cocaine Metabolites Urine Negative Negative : < 300 ng/mL 06/30/2024 3:23 PM [facility] Phencyclidine Screen Urine Negative Negative : < 25 ng/ml 06/30/2024 3:23 PM [facility] Cannabinoids Screen Urine Negative Negative : <50 ng/mL 06/30/2024 3:23 PM [facility] Methadone Screen Urine Negative Negative : < 300 ng/mL 06/30/2024 3:23 PM [facility] Fentanyl Screen Urine Positive(A) Negative : <1.5 ng/mL 06/30/2024 3:23 PM [facility] Comment:Positive urine fenta nyl screening results should be confirmed by another generally accepted non-immunological method such as gas chromatography or mass spectrometry. Urine URINE / Unknown Collection / Unknown 06/30/2024 2:52 PM [facility] 06/30/2024 2:58 PM [facility] - 06/30/2024 3:23 PM [facility] The Urine Toxicology Screening Panel does not screen for Propoxyphene, Meprobamate, Carisoprodol, Trazodone, mdao-sse-uhypilk medications and/or volatiles (Acetone, Isopropanol, Methanol or Ethylene Glycol). Ethanol, Salicylate, Acetaminophen, Tricyclic Antidepressants and several therapeutic drugs may be individually assayed in serum or plasma specimen. Toxicology testing by the [facility] is an aid to medical diagnosis and treatment of patients. No documented chain of custody was maintained. Results are intended to be used for clinical purposes only. Daryl Julian MD LAB - URINE CHEMIS TRY ORDERABLES [facility] [address] [place] [address], [facility] [phone] * PT-INR [facility] (06/30/2024 2:48 PM PRESIDENT + PUBLISHER) [facility] PT 12.7 12.1 - 14.8 Seconds 06/30/2024 3:20 PM PRESIDENT + PUBLISHER [facility] INR 1.0 See Comment 06/30/2024 3:20 PM PRESIDENT + PUBLISHER [facility] Comment:The suggested therap eutic range for standard coumadin (warfarin) therapy is an INR of 2.0-3.0. For high-risk patients (Mechanical Mitral Valve Prosthesis, etc.), the suggested prophylactic therapeutic range is an INR of 2.5-3.5. Blood BLOOD SPECIMEN / Unknown Venipuncture / Unknown 06/30/2024 2:48 PM PRESIDENT + PUBLISHER 06/30/2024 2:52 PM PRESIDENT + PUBLISHER Daryl Julian MD LAB - COAGULATION ORDERABLES Performing Organization Address City/[facility]/ZIP Co de Phone Number [address] [address], [facility] [phone] * LACTIC ACID BLOOD REFLEX TO REPEAT (06/30/2024 2:48 PM PRESIDENT + PUBLISHER) [facility] Lactic Acid-Stat 1.3 <=2.0 mmol/L 06/30/2024 3:23 PM PRESIDENT + PUBLISHER [facility] Blood BLOOD SPECIMEN / Unknown Venipuncture / Unknown 06/30/2024 2:48 PM PRESIDENT + PUBLISHER 06/30/2024 2:52 PM PRESIDENT + PUBLISHER Daryl Julian MD LAB - CHEMISTRY OR DERABLES [address] [address], [facility] [phone] * (ABNORMAL) TROPONIN-I HIGH SENSITIVE BASELINE + 1HR (06/30/2024 2:48 PM PRESIDENT + PUBLISHER) [facility] Troponin I High Sensitive 67(H) <=35 ng/L 06/30/2024 3:32 PM PRESIDENT + PUBLISHER [facility] Blood BLOOD SPECIMEN / Unknown Venipuncture / Unknown 06/30/2024 2:48 PM PRESIDENT + PUBLISHER 06/30/2024 2:54 PM PRESIDENT + PUBLISHER Daryl Julian MD LAB - CHEMISTRY OR DERABLES Performing Organization Address [facility]/ZIP Co de Phone Number [facility] [address] [place] [phone], [place] [facility] [phone] * B-TYPE NATRIURETIC PEPTIDE (06/30/2024 2:48 PM PRESIDENT + PUBLISHER) BNP 38 <100 pg/mL 06/30/2024 3:30 PM [facility] Comment: A decision threshold of 100 pg/mL has been demonstrated to provide the maximal combination of sensitivity, specificity and predictive value for the diagnosis of congestive heart failure (CHF). Virtually all patients with no evidence of CHF have BNP values less than 100 pg/mL. A BNP value greater than 100 pg/mL is consistent with the diagnosis of CHF in the appropriate clinical setting. In a study of 693 patients (male and female) with diagnosed CHF, the following values were determined based on the NYHA functional classification system: NYHA Functional Class Mean Valule (pg/mL) % >100 pg/mL I 320 58.1 II 432 73.0 III 656 79.0 IV 1635 98.3 Blood BLOOD SPECIMEN / Unknown Venipuncture / Unknown 06/30/2024 2:48 PM PRESIDENT + PUBLISHER 06/30/2024 2:54 PM PRESIDENT + PUBLISHER Daryl Julian MD LAB - CHEMISTRY OR DERABLES Performing Organization Address [facility] Co de Phone Number [facility] [address] [place] [address], [facility] [phone] * ALCOHOL ETHYL BLOOD (06/30/2024 2:48 PM PRESIDENT + PUBLISHER) Ethanol (mg/dL) <10 <10 mg/dL 3:28 PM [facility] Ethanol Calculated (g/dL) <0.010 <=0.010 g/dL 06/30/2024 3:28 PM [facility] Blood BLOOD SPECIMEN / Unknown Venipuncture / Unknown 06/30/2024 2:48 PM PRESIDENT + PUBLISHER 06/30/2024 2:54 PM PRESIDENT + PUBLISHER Narrative [facility] - 06/30/2024 3:28 PM PRESIDENT + PUBLISHER Ethanol Interp <10: None Detected. Depression of HEALTHCARE SALES REPRESENTATIVE: >100 mg/dl Potentially Critical: >250 mg/dl Potentially Fatal >400 mg/dl Ethanol in the patient's blood will contribute to the osmolar gap. Ethanol's contribution to the osmolar gap can be estimated by dividing the concentration of ethanol in mg/dL by 4.6. This test is for clinical use only and does not equal a HALILE for legal purposes. Daryl Julian MD LAB - CHEMISTRY OR DERABLES [facility] [address] [place] [address], [place] [phone] * HIV-1 HIV-2 ANTIBODY + HIV P24 AG PANEL (02/03/2024 8:26 PM CDT) HIV Antigen/Antibod y 1 & 2 Non-reacti ve Non-react judy 02/03/2024 9:49 PM CDT [facility] Comment:No Laboratory eviden ce of HIV infection. Blood BLOOD SPECIMEN / Unknown Line Draw / Unknown 02/03/2024 8:26 PM CDT 02/03/2024 8:36 PM CDT Aminata Marlow PA-C LAB - CHEMISTRY SHREYA BOJORQUEZ Performing Organization Address City/[facility]/ZIP Co de Phone Number [facility] [address] [place] [phone], [place] [phone] from Last 3 Months or Most Recently Relevant to Health Maintenance Advance Directives * Full Code (Latest Code Status on File) Date Activated Date Inactivated Comments 07/01/2024 3:44 PM 07/09/2024 2:53 PM * LIMITED RESUSCITATION-PRIOR AND AFTER ARREST Date Activated Date Inactivated Comments 06/30/2024 7:10 PM 07/01/2024 3:44 PM Question Answer Comments Limited Resuscitation: No Chest Compress ionNo Intubation, No Invasive Ventilation ok for shocks and medical resuscitation * LIMITED RESUSCITATION-PRIOR AND AFTER ARREST Date Activated Date Inactivated Comments 02/14/2024 11:35 AM 02/17/2024 7:40 PM Question Answer Comments Limited Resuscitation: No Chest Compress ionNo Intubation, No Invasive Ventilation * Full Code Date Activated Date Inactivated Comments 02/01/2024 5:17 PM 02/14/2024 11:35 AM Care Teams Dehydrator Operator Relationship Specialty Start Date End Date An Kamara APRN-TYRONE [address] [place] [id number] PCP - General Nurse Practitioner Family 02/16/24
--- OUTSIDE RECORDS SUMMARY | 2024-07-28 17:24 | XMS_ITS | Encounter Summary ---
Author Organization [facility] Address [facility] [place] [address] Care Team Providers Care Manufacturing Management Associate Name Role Phone Malcolm Smart MD Primary Care Provider [phone] Erika Carreon NP Primary Care Provider [phone] Tony Mcelroy MD Unavailable Bar Alegria MD Unavailable [phone] Encounter Details Date Type Department Care Team (Late st Contact Info) Description [address] [facility] [address] [place], [place] [id number] Tony Mcelroy MD [address] [address] Social History Tobacco Use Types Packs/Day Years Used Date Smoking Tobacco: Every Day Cigarettes 0.7 23.2 Started: 2011 Smokeless Tobacco: Never Comments:Has been using constance naomi patches to try to quit Alcohol Use Standard Drinks/Week Comments Yes 0 (1 standard drink = 0.6 oz pure alcohol) 2-3 x/week, vodka-750mls at a time B1300 Health Literacy Answer Date Recor ded How often do you need to hav e someone help you when you read instructions, pamphlets, or other written material from your doctor or pharmacy? Never 09/18/2023 [facility] Utilities Answer Date Recorded In the past 12 months has [facility] electric, gas, oil, or water company threatened to shut off services in your home? Patient declined 10/27/2023 Humiliation, Afraid, Rape, and Kick questionnair e Answer Date Recorded Within the last year, have y ou been afraid of your partner or ex-partner? Patient declined 10/27/2023 Within the last year, have y ou been humiliated or emotionally abused in other ways by your partner or ex-partner? Patient declined 10/27/2023 Within the last year, have y ou been kicked, hit, slapped, or otherwise physically hurt by your partner or ex-partner? Patient declined 10/27/2023 Within the last year, have y ou been raped or forced to have any kind of sexual activity by your partner or ex-partner? Patient declined 10/27/2023 Social Connection and Isolat ion Panel [NHANES] Answer Date Recorded In a typical week, how many times do you talk on the phone with family, friends, or neighbors? More than three times a week 08/13/2023 How often do you get togethe r with friends or relatives? More than three times a week 08/13/2023 How often do you attend [facility] or baptism services? 1 to 4 times per year 08/13/2023 Do you belong to any clubs o r organizations such as worship groups, unions, fraternal or athletic groups, or school groups? No 08/13/2023 Attends Club or Organization Meetings Not on whitney e 08/13/2023 Are you , , di vorced, , never , or living with a partner? Never 08/13/2023 AUDIT-C Answer Date Recorded Q1: How often do you have a drink containing alcohol? 4 or more times a week 08/13/2023 Q2: How many drinks containi ng alcohol do you have on a typical day when you are drinking? 10 or more Q3: How often do you have si x or more drinks on one occasion? Daily or almost daily 08/13/2023 Overall Financial Resource Strain (CARDIA) Answe r Date Recorded How hard is it for you to pa y for the very basics like food, housing, medical care, and heating? Patient declined 10/27/2023 [facility] of Occupat ional Health - Occupational Stress Questionnaire Answer Date Recorded Do you feel stress - tense, restless, nervous, or anxious, or unable to sleep at night because your mind is troubled all the time - these days? Rather much 08/13/2023 Exercise Vital Sign Answer Date Recorde d On average, how many days pe r week do you engage in moderate to strenuous exercise (like a brisk walk)? 2 days 08/13/2023 On average, how many minutes do you engage in exercise at this level? 30 min 08/13/2023 Hunger Vital Sign Answer Date Recorded Within the past 12 months, y ou worried that your food would run out before you got the money to buy more. Patient declined Within the past 12 months, t he food you bought just didn't last and you didn't have money to get more. Patient declined PRAPARE - Transportation Answer Date Re corded In the past 12 months, has l ack of transportation kept you from medical appointments or from getting medications? Patient declined 10/27/2023 In the past 12 months, has l ack of transportation kept you from meetings, work, or from getting things needed for daily living? Patient declined 10/27/2023 Housing Stability Vital Sign Answer Bryan e Recorded In the last 12 months, was t here a time when you were not able to pay the mortgage or rent on time? No 03/29/2023 In the last 12 months, how many places have you lived? 2 03/29/2023 In the last 12 months, was t here a time when you did not have a steady place to sleep or slept in a longterm (including now)? No 03/29/2023 Housing Stability Vital Sign Answer Bryan e Recorded In the last 12 months, was t here a time when you were not able to pay the mortgage or rent on time? Patient declined 10/27/19 24 In the past 12 months, how m any times have you moved where you were living? 0 10/27/2023 At any time in the past 12 m [facility], were you homeless or living in a longterm (including now)? 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 Answer Date of Assessment Author Status No 10/26/2023 12:14 PM CDT Sita Guevara RN Active * Do you have serious difficulty walking or climbing stairs? Answer Date of Assessment Author Status No 10/26/2023 12:14 PM CDT Sita Guevara RN Active * Do you have difficulty dressing or bathing? Answer Date of Assessment Author Status No 10/26/2023 12:14 PM CDT Sita Guevara RN Active * Because of a physical, mental, or emotional condition, do you have difficulty doing errands alone such as visiting a doctor's office or shopping? Answer Date of Assessment Author Status No 10/26/2023 12:14 PM CDT Sita Guevara RN Active documented as of this encounter Mental Status * Because of a physical, mental, or emotional condition, do you have serious difficulty concentrating, remembering, or making decisions? Answer Entry Date Author Status No 10/26/2023 12:14 PM CDT Sita Guevara RN Active documented in this encounter Plan of Treatment Upcoming Encounters Date Type Department Care Team (Late st Contact Info) Description 07/29/2024 3:[address] [facility] [address] [place] [address] Tony Mcelroy MD [address] [place] [address] 08/05/2024 3:[address] [facility] [address] [place] [address] Tony Mcelroy MD [address] [place] [address] 08/12/2024 3:[address] [facility] [address] [place] [address] Tony Mcelroy MD [address] [facility] [address] [place] [address] 08/19/2024 3:[address] [facility] [address] [place] [address] Tony Mcelroy MD [address] [facility] [address] [place] [address] 08/26/2024 3:[address] [facility] [address] [place] [address] Tony Mcelroy MD [address] [facility] [address] [place] [address] documented as of this encounter Goals Goal Patient Goal Type Associated Problems Recent Progress Patient-Stated? Author Patient will return to prior living situation and remain independent in ADLs upon discharge from hospital Lifestyle Hiral Chapman RN documented as of this encounter Visit Diagnoses Diagnosis Chronic systolic heart failure ([facility])- Primary Chronic systolic heart failure documented in this encounter Care Teams Manufacturing Management Associate Relationship Specialty Start Date End Date Malcolm Smart MD [address] [place] [phone] PCP - General FAMILY PRACTICE 10/26/23 04/21/24 Erika Carreon NP [address] [place] [phone] PCP - General NURSE PRACTITIONER 04/22/24 Tony Mcelroy MD [address] [facility] [address] [place] [address] CARDIOVASCULAR DISEASE 04/29/24 Bar Alegria MD [address] [facility] [address] [place] [address] INTERNAL MEDICINE 04/29/24 documented as of this encounter
--- OUTSIDE RECORDS SUMMARY | 2024-07-28 17:24 | XMS_ITS | Referral Summary ---
Author Organization [facility] [address] Address [address] [place] [address] Care Team Providers Care Carbonator Name Role Phone Pelon Rodriguez MD Primary Care Provi panda Erich Infante MD Unavailable [phone] Simran Pruett Unavailable Unavailable Encounters Date Type Department Care Team Description 07/27/[address] [facility] Transplant Heart [address] [facility] [address] [phone] [place] [address] Ginette Chavez RN 07/27/2024 9:45 AM CDT Office Visit [facility] Cardiology [address] [facility] Medical Office Building [address] [place] [address] Erich Infante MD Chronic combined systolic and diastolic congestive heart failure (HCC) (Primary Dx) 07/22/[address] [facility] Transplant Heart [address] [facility] [address] [phone] [place] [address] Reena Ames 07/15/2024 Telephone [facility] [address] [facility] [address] [place] [address] Unknown, Notinfile 06/24/2024 Results Follow-Up [facility] [address] [place] [address] Erich Infante MD 06/24/[address] [facility] Cardiology [address] [facility] 8th [place] [address] [place] [address] Erich Infante MD 06/23/[address] [facility] Transplant Heart [address] [facility] [address] Mail[address] [phone] [place] [address] Royal Lozada 06/23/[address] [facility] Transplant Heart [address] [facility] [address] Mail[address] [phone] [place] [address] John Teixeira RN 06/23/2024 10:00 AM BRAND DESIGNER Office [facility] Cardiology [facility] Office Building [address] [place] [address] Lurdes Chiang NP Chronic systolic heart failure (HCC) (Primary Dx) 06/23/2024 8:30 AM BRAND DESIGNER Ancillary Procedure [facility] [address] [place] [address] [address] [place] [address] Chronic combined systolic and diastolic congestive heart failure (HCC) 06/23/[address] [facility] Cardiology [address] [place] [address] Medical Office Building [address] [place] [address] Lurdes Chiang NP 05/10/2024 Telephone [facility] Medicine [facility] [address] [facility] [address] [place] [address] An Kamara NP 05/07/2024 10:52 AM BRAND DESIGNER - 05/07/2024 11:06 AM BRAND DESIGNER Emergency [facility] Emergency Department [address] [place] [address] Discharge Disposition: Left without being seen 05/07/2024 8:30 AM BRAND DESIGNER Office [facility] Cardiology [address] [place] [address] Office Building [address] [place] [address] Erich Infante MD Chronic combined systolic and diastolic congestive heart failure (HCC) (Primary Dx); Chronic back pain, unspecified back location, unspecified back pain laterality; Receiving inotropic medication; Alcoholic cardiomyopathy (HCC); History of alcohol abuse; History of tobacco use; Marijuana use 05/03/2024 Telephone [facility] Cardiology [address] [place] [address] Tony Mcelroy MD Pic line 04/30/2024 Telephone [facility] Cardiology [address] [place] [address] Tony Mcelroy MD Med Management; Medication Problem from Last 3 Months Allergies Active Allergy Reactions Criticality Noted Date [...] mouth daily 90 tablet 3 06/23/19 25 026 Active milrinone in dextrose 5% (PRIMACOR) 40 mg/200 mL (200 mcg/mL) infusion Infuse 6.35 mcg/min into a venous catheter continuously 200 mL 11 06/24/19 25 026 Active spironolactone (ALDACTONE) 25 mg [...] 90 tablet 3 06/23/19 25 025 Discontin u([facility]) Hospital, Clinic, or Other Facility Administered Medication Ordered Dose Route Frequency Start Date End Date Status heparin 10 unit/mL flush 50 Units 50 Units cath As needed 06/23/2024 Active Active Problems No known active problems Social History Tobacco Use Types Packs/Day Years Used Date Smoking Tobacco: Former Cigarettes Passive Smoke Exposure: Never Smokeless Tobacco: Former Tobacco Cessation:Counseling Given: Not Answered Sex and Gender Information Value Date Recorded Sex Assigned at Not on file Legal Sex Male 9:52 PM BRAND DESIGNER Gender Identity Not on file Sexual Orientation Not on file Last Filed Vital Signs Vital Sign Reading Time Taken Comments Blood Pressure 108/70 07/27/2024 9:50 AM CDT Pulse 100 07/27/2024 9:50 AM CDT Temperature - - Respiratory Rate 14 04/16/2024 2:23 PM BRAND DESIGNER Oxygen Saturation 98% 07/27/2024 9:50 AM CDT Inhaled Oxygen Concentration - - Weight 58.3 kg (128 lb 9.6 oz) 07/27/2024 9:50 A M CDT Height 182.9 cm (6') 07/27/2024 9:50 AM CDT Body Mass Index 17.44 07/27/2024 9:50 AM CDT Plan of Treatment Not on file Procedures Procedure Name Priority Date/Time Associated Diagnosis [...] DOPPLER/CF W CONTRAST Routine 06/23/2024 9:34 AM BRAND DESIGNER Chronic combined systolic and diastolic congestive heart failure (HCC) ECG 12-LEAD Routine 05/07/2024 8:31 AM BRAND DESIGNER Chronic combined systolic and diastolic congestive heart [...] >90 EXTERNAL LAB SCRIBED eGFR in NonAfrican Malagasy >90 >90 EXTERNAL LAB Blood 07/22/2024 2:15 PM CDT Erich Infante MD LAB BLOOD ORDERABLES Fi nal Result EXTERNAL LAB * B-type natriuretic peptide (06/24/2024) SCRIBED BNP 238 <125 pg/mL [facility] Blood 06/24/2024 us Erich Infante MD LAB BLOOD ORDERABLES Fi nal Result [facility] * (ABNORMAL) Comprehensive metabolic panel (06/24/2024) [facility] SCRIBED Sodium 139 136 - 145 mmol/L [facility] Potassium 3.6 3.5 - 5.1 mmol/L [facility] Chloride 96(A) 100 - 108 mmol/L [facility] Carbon Dioxide 33.3(A) 21 - 32 mmol/L [facility] Anion Gap 9.7 5 - 15 mmol/L [facility] Urea Nitrogen (BUN) 21(A) 7 - 18 mg/dl [facility] Creatinine 0.90 0.7 - 1.3 mg/dl [facility] Glucose 151(A) 70 - 99 mg/dl [facility] Calcium 9.4 8.5 - 10.1 mg/dl [facility] Bilirubin 0.9 0.2 - 1.2 mg/dl [facility] Plasma Protein 6.8 6.4 - 8.2 g/dl [facility] Albumin 4.1 3.4 - 5.0 g/dl [facility] SCRIBED Alkaline Phosphatase 76 50 - 136 Units/L [facility] Alanine Transaminase (ALT) 58 16 - 60 Units/L [facility] Aspartate Transaminase (AST) 78(A) 15 - 37 Units/L [facility] SCRIBED eGFR in NonAfrican Malagasy >90 >90 [facility] Alb/glob ratio 1.5 1.0 - 2.0 [facility] BUN_Creat Ratio 23.3 6 - 26 [facility] Blood 06/24/2024 Erich Infante MD LAB BLOOD ORDERABLES Fi nal Result [facility] * TRANSTHORACIC ECHO (TTE) COMPLETE W DOPPLER/CF W CONTRAST (06/23/2024 9:34 AM BRAND DESIGNER) Anatomical Region Laterality Modality Ultrasound 06/23/2024 8:59 AM BRAND DESIGNER Narrative 06/23/2024 1:32 PM BRAND DESIGNER [facility] Cardiac Diagnostic Lab [address] , [address] [place] [address] Transthoracic Echocardiographic Report Patient Name: SOPHIA HNANA ST : 1990 (34y 2m) Gender: M Study Date: 06/23/2024 08:59:08 AM Ht(Inch): 72 Wt(Lb): 149.91 BSA: 1.86 Mill Hand: Joanna Mcfarlane RDCS Location: [facility] Order Provider: ERICH INFANTE Heart Rate: 111 [...] ventricle based on volume index. Previously Signed by:Jaciel 06/23/2024 1:31:45 PM BRAND DESIGNER and Cong Nix M.D. 06/23/2024 1:31:45 PM BRAND DESIGNER End of Addendum PROCEDURES: Echocardiographic Report: ([id number], [id number]) Transthoracic complete echo with strain imaging and [...] By: Cong Nix M.D. 06/23/2024 1:31:45 PM BRAND DESIGNER Electronically Signed By: Cong Nix M.D. 06/23/2024 1:31:45 PM BRAND DESIGNER Electronically Amended By: Cong Nix M.D. 07/20/2024 1:51:15 PM CDT [ADDENDUM] Procedure Note Cong Nix MD - 07/20/2024 [facility] Cardiac Diagnostic Lab [address], [address] [place] [address] Transthoracic Echocardiographic Report Patient Name: SOPHIA HANNA ST : 1990 (34y 2m) Gender: M Study Date: 06/23/2024 08:59:08 AM Ht(Inch): 72 Wt(Lb): 149.91 BSA: 1.86 Mill Hand: Joanna Mcfarlane RDCS Location: [facility] Order Provider:ERICH INFANTE Heart Rate: 111 BMI: [...] index. Previously Signed by:Jaciel 06/23/2024 1:31:45 PM BRAND DESIGNER and Cong Nix M.D. 06/23/2024 1:31:45 PM BRAND DESIGNER End of Addendum PROCEDURES: Echocardiographic Report: ([id number], [id number]) Transthoracic complete echo withstrain imaging and contrast, [...] LA Length 2C 5.59 cm MV Decel Wcxj120.26 msec [ 104.00 - 258.00 ] LA [...] By: Cong Nix M.D. 06/23/2024 1:31:45 PM BRAND DESIGNER Electronically Signed By: Cong Nix M.D. 06/23/2024 1:31:45 PM BRAND DESIGNER Electronically Amended By: Cong Nix M.D. 07/20/2024 1:51:15 PM CDT [ADDENDUM] Erich Infante MD CV ECHO PROCEDURES Edit ed Result - Final * ECG 12 lead (05/07/2024 8:31 AM BRAND DESIGNER) Erich Infante MD ECG ORDERABLES Edited Result - Final from Last 3 Months [place] [address] [place] [address] ANTHEM ACCESS ANTHEM ACCESS Care Teams Carbonator Relationship Specialty Start Date End Date Pelon Rodriguez MD [address] [place] [address] [facility] [address] [place] [address] PCP - General Family Medicine 06/23/24 Erich Infante MD [address] [address] Consulting Physician Cardiology 07/26/24 Simran Pruett Primary Floor Tech 07/26/24
--- OUTSIDE RECORDS SUMMARY | 2024-07-28 17:24 | XMS_ITS | Clinical Summary ---
Author Organization [facility] Address [address] [place] [address] Care Team Providers Care Rn Navigator Name Role Phone Erika Carreon NP Primary Care Provider [phone] Tony Mcelroy MD Unavailable Bar Alegria MD Unavailable [phone] Allergies Active Allergy Reactions Criticality Noted Date Comments Sulfamethoxazole-Trimethoprim Unknown 2022 Sulfa Antibiotics Unknown 09/07/2023 Medications vitamin B-12 (CYANOCOBALAMIN) (CYANOCOBALAMIN) 1000 mcg tabletIndications: supplement Take 1 tablet by mouth daily. Indications: supplement Active MILRINONE LACTATE IN DEXTROSE IVIndications:card iac 37 mg by Intravenous (Continuous Infusion) route see administration instructions. 37mg/185ml. administer at 0.77mg/hr (3.9ml/hr) via curlin pump Remove from fridge 1 hour prior to use change bag every 48 hours Indications: cardiac 02/18/20 24 Active nitroglycerin (NITRO-BID) 2 % ointmentIndication s:feet Apply 1 inch topically 2 (two) times daily. Indications: feet 02/18/20 24 Active morphine sulfate (ROXANOL) 100 MG/5ML oral solutionIndication s:Chronic Pain,severe pain or shortness of breath Place 5 mg under the tongue every 2 (two) hours as needed. Place 5 mg under the tongue every 2 (two) hours as needed. Take 5 mg by mouth every 2 (two) hours as needed. 0.25ml (5mg) by mouth or under tongue every 2 hours as needed for moderate to severe pain/shortness of breath. May increase dose every 2 hours as needed for moderate to severe pain/shortness of breath by 0.25ml (5mg) increments up to 1ml (20mg) if symptoms not relieved. Contact MD if symptoms not relieved at 1ml (20mg) dose. Indications: pain or shortness of breath Indications: pain or shortness of breath Indications: Chronic Pain, severe pain or shortness of breath 02/18/20 Active LORazepam (ATIVAN) 1 MG tabletIndications: anxiety Take 2 mg by mouth every 4 (four) hours as needed. Take 2 mg by mouth every 4 (four) hours as needed for Anxiety. Indications: anxiety 02/18/20 Active haloperidol (HALDOL) 2 MG/ML solutionIndication s:agitation Take 1 mg by mouth every 4 (four) hours as needed. Indications: agitation 02/18/20 Active hyoscyamine (LEVSIN) 0.125 MG tabletIndications: secretions Take 0.125 mg by mouth every 4 (four) hours as needed. Take 0.125 mg (1 tablet) by mouth every 4 (four) hours as needed (secretions). May increase to 2 tablets as needed Indications: secretions 02/18/20 Active cyclobenzaprine (FLEXERIL) 5 MG tabletIndications: muscle spasms Take 5 mg by mouth every 6 (six) hours as needed. Indications: muscle spasms 02/18/20 Active midodrine (PROAMATINE) 10 MG tabletIndications: heart Take 10 mg by mouth 3 (three) times daily. Indications: heart 02/18/20 Active furosemide (LASIX) 20 MG tabletIndications: edema Take 20 mg by mouth daily. Indications: edema 02/18/20 Active Melatonin 10 MG CapIndications:ins omnia Take 10 mg by mouth as needed. Indications: insomnia 02/18/20 Active Multiple Vitamin (MULTIVITAMIN ADULT OR)Indications:sup plement Take 1 tablet by mouth daily. Indications: supplement 02/18/20 Active folic acid (FOLVITE) 400 MCG tabletIndications: supplement Take 400 mcg by mouth daily. Indications: supplement 02/18/20 Active Ferrous Sulfate Dried (FERROUS SULFATE CR OR)Indications:sup plement Take 1,000 mcg by mouth daily. Indications: supplement 02/18/20 Active senna-docusate (SENNA S) 8.6-50 MG tabletIndications: constipation Take 2 tablets by mouth as needed. 1-2 tablets daily as needed Indications: constipation 02/18/20 Active traZODone (DESYREL) 100 MG tabletIndications: insomnia Take 100 mg by mouth as needed. 1 tablet nightly at bedtime as needed Indications: insomnia 02/18/20 Active HYDROmorphone (DILAUDID) 4 MG tabletIndications: Chronic Pain Take 4 mg by mouth every 4 (four) hours as needed for Pain. take 2 tab (total 8 mg) po every 4 hours prn pain Indications: Chronic Pain 02/21/20 Active ondansetron (ZOFRAN-ODT) 4 MG disintegrating tabletIndications: N/V Take 8 mg by mouth every 6 (six) hours as needed. take 2 tablets by mouth every 6 hours as needed for N/V. Indications: N/V 02/15/20 Active polyethylene glycol (MIRALAX) 17 GM/SCOOP powderIndications: constipation Take 17 g by mouth as needed. Indications: constipation 02/24/20 Active normal saline 0.9 % injectionIndicatio ns:linen clerk Inject 10 mLs into the vein as needed (linen clerk). Indications: linen clerk 02/18/20 Active Heparin Sodium, Porcine, (HEPARIN, PORCINE, LOCK FLUSH IV)Indications:london e maintenance 50 Units by IVP route as needed (linen clerk). use after normal saline for linen clerk Indications: linen clerk 02/18/20 Active fentaNYL (DURAGESIC) 100 mcg/hrIndications: Chronic Pain Place 1 patch onto the skin every third day. place with 75 mcg for total dose of 175 mcg Indications: Chronic Pain 03/17/20 Active fentaNYL (DURAGESIC) 75 mcg/hrIndications: Chronic Pain Place 1 patch onto the skin every third day. place with 100 mcg patch for at total dose of 175 mcg Indications: Chronic Pain 03/24/20 Active morphine CR (MS CONTIN) 30 MG tabletIndications: Chronic Pain Take 60 mg by mouth 2 (two) times daily. Indications: Chronic Pain 03/26/20 Active morphine CR (MS CONTIN) 30 MG tabletIndications: Chronic Pain Take 30 mg by mouth 2 (two) times daily. take in addition to 60mg tablet, twice daily Indications: Chronic Pain 03/31/20 Active fentaNYL (DURAGESIC) 50 mcg/hrIndications: Chronic Pain Place 3 patches onto the skin every third day. Use 3 patches with 1 25 mcg patch for a total dose of 175 mcg. Indications: Chronic Pain 04/15/20 Active naloxone (NARCAN) 4 MG/0.1ML nasal spray 1 spray by Nasal route as needed for Opioid reversal. may repeat every 2 to 3 minutes in alternating nostrils until medical assistance becomes available 1 each 04/29/20 24 025 Active naLOXone (NARCAN) 0.4 mg/mL injection Inject 1 mL (0.4 mg total) into the muscle once as needed (Opioid reversal). 1 mL 04/29/20 025 Active Active Problems Problem Noted Date Diagnosed Date Chronic systolic heart failure ([facility] HHS/HCC) 2024 Pancreatitis, alcoholic, acute ([facility]/HCC) 024 Pancreatic pseudocyst ([facility]/HCC) 09/18/2023 Alcohol-induced acute pancreatitis ([facility]/HCC) 08/2023 Alcoholism ([facility] HHS/HCC) 09/06/2023 Resolved Problems Problem Noted Date Diagnosed Date Resolved Date Pancreatitis, acute ([facility]/HCC) 09/07/2023 09/09/2023 Alcoholic ketoacidosis 09/06/202309/06 Alcoholic pancreatitis ([facility]/HCC) 09/06/2023 09/07/2023 Acute pancreatitis ([facility]/HCC) 03/29/2023 09/09/2023 Pancreatitis ([facility]/HCC) 03/26/202308/14 Encounters Date Type Department Care Team Description 07/22/2024 1:38 PM CDT - 07/22/2024 2:30 PM CDT Hospital Encounter [facility] Surgery [id number] [place] [address] Tony Mcelroy MD Discharge Disposition: Home or Self Care (Routine Discharge) 07/22/2024 1:37 PM CDT Hospital Encounter [facility] Laboratory [address] [place] [address] Tony Mcelroy MD Discharge Disposition: Home or Self Care (Routine Discharge) 07/22/2024 Telephone [facility] [address] [place] [address] Mary Ellen Mahmood MD Lab Results (Critical value ) 07/22/2024 Travel 06/24/2024 1:57 PM TROUBLE LOCATER - 06/24/2024 2:52 PM TROUBLE LOCATER Hospital Encounter [facility] Surgery [address] [place] [address] Tony Mcelroy MD Discharge Disposition: Home or Self Care (Routine Discharge) 06/24/2024 Travel 06/18/2024 12:07 PM TROUBLE LOCATER - 06/18/2024 12:40 PM TROUBLE LOCATER Hospital Encounter [facility] Surgery [address] [place] [address] Tony Mcelroy MD Discharge Disposition: Home or Self Care (Routine Discharge) 06/18/2024 Travel 06/10/2024 1:43 PM TROUBLE LOCATER - 06/10/2024 3:03 PM TROUBLE LOCATER Hospital Encounter [facility] Surgery [address] [place] [address] Tony Mcelroy MD Discharge Disposition: Home or Self Care (Routine Discharge) 06/10/2024 Travel 06/03/2024 2:24 PM TROUBLE LOCATER - 06/03/2024 3:10 PM TROUBLE LOCATER Hospital Encounter [facility] Surgery [address] [place] [address] Tony Mcelroy MD Discharge Disposition: Home or Self Care (Routine Discharge) 06/03/2024 Travel 05/28/2024 1:56 PM TROUBLE LOCATER - 05/28/2024 2:35 PM TROUBLE LOCATER Hospital Encounter [facility] Surgery [address] [place] [address] Tony Mcelroy MD Discharge Disposition: Home or Self Care (Routine Discharge) 05/28/2024 Travel 05/20/2024 2:40 PM TROUBLE LOCATER - 05/20/2024 3:45 PM TROUBLE LOCATER Hospital Encounter [facility] Surgery [address] [place] [address] Tony Mcelroy MD Discharge Disposition: Home or Self Care (Routine Discharge) 05/20/2024 Travel 05/13/2024 1:51 PM TROUBLE LOCATER - 05/13/2024 2:49 PM TROUBLE LOCATER Hospital Encounter [facility] Surgery [address] [place] [address] Tony Mcelroy MD Discharge Disposition: Home or Self Care (Routine Discharge) 05/13/2024 Travel 05/07/2024 3:04 PM TROUBLE LOCATER - 05/07/2024 6:02 PM TROUBLE LOCATER Emergency [facility] Emergency Room [address] [place] [address] Marko Blank MD Leg Pain Discharge Disposition: Home or Self Care (Routine Discharge) 05/07/2024 Travel 05/06/2024 2:37 PM TROUBLE LOCATER - 05/06/2024 3:30 PM TROUBLE LOCATER Emergency [facility] Emergency Room [address] [place] [address] Discharge Disposition: Left Against Medical Advice 05/06/2024 1:37 PM TROUBLE LOCATER - 05/06/2024 2:22 PM TROUBLE LOCATER Hospital Encounter [facility] Surgery [address] [place] [address] Tony Mcelroy MD Discharge Disposition: Home or Self Care (Routine Discharge) 05/06/2024 Travel 04/29/2024 3:29 PM TROUBLE LOCATER - 04/29/2024 5:45 PM TROUBLE LOCATER Emergency [facility] Emergency Room [address] [place] [address] Joselito Vega MD Leg Pain Discharge Disposition: Home or Self Care (Routine Discharge) 04/29/2024 2:52 PM TROUBLE LOCATER - 04/29/2024 3:27 PM TROUBLE LOCATER Hospital Encounter [facility] Surgery [address] [place] [address] Tony Mcelroy MD Discharge Disposition: Home or Self Care (Routine Discharge) 04/29/2024 Travel from Last 3 Months Family History Medical History Relation Comments [place] Father No Known Problems Mother meninigitis Sister Relation Status Comments Father Alive Mother Alive Sister (Age 5) Social History Tobacco Use Types Packs/Day Years Used Date Smoking Tobacco: Every Day Cigarettes 0.7 23.2 Started: 2011 Smokeless Tobacco: Never Tobacco Cessation:Ready to Q uit: Yes; Counseling Given: Yes Comments:Has been using nicotine patches to try to quit Alcohol Use Standard Drinks/Week Comments Yes 0 (1 standard drink = 0.6 oz pure alcohol) 2-3 x/week, vodka-750mls at a time B1300 Health Literacy Answer Date Recor ded How often do you need to hav e someone help you when you read instructions, pamphlets, or other written material from your doctor or pharmacy? Never 09/18/2023 [facility] Utilities Answer Date Recorded In the past 12 months has e [employer], gas, oil, or water [employer] threatened to shut off services in your [...] week 08/13/2023 How often do you attend chur or scientologist services? 1 to 4 times per year 08/13/2023 Do you belong to any clubs o r organizations such as sabianism groups, unions, fraternal or athletic groups, or [...] medical care, and heating? Patient declined 10/27/2023 [facility] - Occupational Stress [...] place to sleep or slept in a custodial (including now)? No 03/29/2023 Housing Stability Vital [...] any time in the past 12 m the rehabilitation institute, were you homeless or living in a custodial (including now)? 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 file Not on file Not on file Last Filed Vital Signs Vital Sign Reading Time Taken Comments Blood Pressure 106/75 05/07/2024 6:01 PM TROUBLE LOCATER Pulse 86 05/07/2024 6:01 PM TROUBLE LOCATER Temperature 36.1 C (97 F) 05/07/2024 6:01 PM TROUBLE LOCATER Respiratory Rate 18 05/07/2024 6:01 PM TROUBLE LOCATER Oxygen Saturation 100% 05/07/2024 6:01 PM TROUBLE LOCATER Inhaled Oxygen Concentration - - Weight 65.5 kg (144 lb 6.4 oz) 05/07/2024 3:07 P M TROUBLE LOCATER Height 185.4 cm (6' 1 ) 05/07/2024 3:07 PM TROUBLE LOCATER Body Mass Index 19.05 05/07/2024 3:07 PM TROUBLE LOCATER Plan of Treatment Upcoming Encounters Date Type Department Care Team (Late st Contact Info) Description 07/29/2024 3:00 PM CDT Appointment [facility] [address] [place] [address] Tony Mcelroy MD [address] [address] 08/05/2024 3:00 PM CDT Appointment [facility] [address] [place] [address] Tony Mcelroy MD [address] [facility] [place] [id number] 08/12/2024 3:00 PM CDT Appointment [facility] [address] [place] [address] Tony Mcelroy MD [address] [place] [address] 08/19/2024 3:00 PM CDT Appointment [facility] [address] [place] [address] Tony Mcelroy MD [address] [place] [address] 08/26/2024 3:00 PM CDT Appointment [facility] [address] [place] [address] Tony Mcelroy MD [address] [place] [address] Health Maintenance Due Date Last Done Comments Annual Physical 1992 Pneumococcal Vaccine: Pediatrics (0 to 5 Years) and At-Risk Patients (6 to 64 Years) (1 of 2 - PCV) 1995 Hepatitis B Vaccines (1 of 3 - 19+ 3-dose series) 2008 COVID-19 Vaccine (2 - 2023- season) 2024 07/06/2021 Influenza Adult (#1) 2024 DTaP, Tdap and Td Vaccines (2 - Td or Tdap) 11/13/2033 11/14/2023 Hepatitis C Completed 02/03/2024, 100 05/2023, 02/03/2024, Additional history exists HPV Vaccines Aged Out No longer eligi ble based on patient's age to complete this topic Meningococcal B Vaccine Aged Out No l onger eligible based on patient's age to complete this topic Meningococcal Vaccine Aged Out No amanda fidel eligible based on patient's age to complete this topic RSV Immunizations Under 20 Months Aged Out No longer eligible based on patient's age to complete this topic Goals Goal Patient Goal Type Associated Problems Recent Progress Patient-Stated? Author Patient will return to prior living situation and remain independent in ADLs upon discharge from hospital Lifestyle No Hiral Diamond RN Procedures Procedure Name Priority Date/Time Associated Diagnosis Comments PRO-BRAIN NATRIURETIC PEPTIDE Routine 07/22/2024 2:15 PM CDT Chronic systolic heart failure ([facility] HHS/HCC) COMPREHENSIVE METABOLIC PANEL Routine 07/22/2024 2:15 PM CDT Chronic systolic heart failure ([facility] HHS/HCC) PRO-BRAIN NATRIURETIC PEPTIDE Routine 06/24/2024 3:05 PM TROUBLE LOCATER Chronic systolic heart failure (CMS/HCC HHS/HCC) COMPREHENSIVE METABOLIC PANEL Routine 06/24/2024 3:05 PM TROUBLE LOCATER Chronic systolic heart failure (CMS/HCC HHS/HCC) from Last 3 Months Results * (ABNORMAL) PRO-BRAIN NATRIURETIC PEPTIDE (07/22/2024 2:15 PM CDT) Only the most recent of2 resultswithin the time period is included. PRO-B TYPE NATRIURETIC PEPTIDE 304(H) <125 PG/ML 07/22/2024 3:37 PM CDT [facility] Comment: CUT POINTS ESTABLISHED BY [employer] ON NT PROBNP (ICON) STUDY (2006). AGE INDEPENDENT: <300 PG/ML HAS A 99% NEGATIVE PREDICTIVE VALUE FOR EXCLUDING ACUTE CHF <50 YEARS: >450 PG/ML IS CONSISTENT WITH ACUTE CHF 50-75 YEARS: >900 PG/ML IS CONSISTENT WITH ACUTE CHF >75 YEARS: >1800 PG/ML IS CONSISTENT WITH ACUTE CHF IN PATIENTS WITH RENAL INSUFFICIENCY (GFR <60), >1200 PG/ML YIELDS A DIAGNOSTIC SENSITIVITY AND SPECIFICITY OF 89% AND 72% FOR ACUTE CHF. 07/22/2024 2:15 PM CDT us Mary Ellen Mahmood MD LABORATORY Final Result [facility] [address] [place] [address], [place] [phone] * (ABNORMAL) COMPREHENSIVE METABOLIC PANEL (07/22/2024 2:15 PM CDT) Only the most recent of2 resultswithin the time period is included. GLUCOSE 474(HH) 70 - 99 MG/DL 07/22/2024 3:37 PM CDT [facility] Comment: Critical Result(s) Called at: 15:31:41 on 07/22/2024 by: KEI FORBES to and read back by: MAGDALENA DANIELS [employer] BUN 25(H) 7 - 18 MG/DL 07/22/2024 3:37 PM CDT [facility] CREATININE S/P/B 1.07 0.7 - 1.3 MG/DL 07/22/2024 3:37 PM CDT [facility] SODIUM S/P/B 132(L) 136 - 145 MMOL/L 07/22/2024 3:37 PM CDT [facility] POTASSIUM S/P/B 5.2(H) 3.5 - 5.1 MMOL/L 07/22/2024 3:37 PM CDT [facility] CHLORIDE S/P/B 98(L) 100 - 108 MMOL/L 07/22/2024 3:37 PM CDT [facility] CO2 27.3 21 - 32 MMOL/L 07/22/2024 3:37 PM CDT [facility] CALCIUM S/P/B 9.0 8.5 - 10.1 MG/DL 07/22/2024 3:37 PM CDT [facility] BILIRUBIN TOTAL S/P/B 0.2 0.2 - 1.2 MG/DL 07/22/2024 3:37 PM CDT [facility] TOTAL PROTEIN S/P/B 6.3(L) 6.4 - 8.2 G/DL 07/22/2024 3:37 PM CDT [facility] ALBUMIN S/P/B 3.7 3.4 - 5.0 G/DL 07/22/2024 3:37 PM T [facility] AST 13(L) 15 - 37 U/L 07/22/2024 3:37 PM T [facility] ALT 24 16 - 60 U/L 07/22/2024 3:37 PM T [facility] ALKALINE PHOSPHATASE S/P/B 55 50 - 136 U/L 07/22/2024 3:37 PM T [facility] ANION GAP 6.7 5 - 15 MMOL/L 07/22/2024 3:37 PM T [facility] BUN CREATININE RATIO 23.4 6 - 26 07/22/2024 3:37 PM T [facility] A/G RATIO 1.4 1.0 - 2.0 RATIO 07/22/2024 3:37 PM T [facility] GFR ESTIMATE >90 >90 ML/MIN/1.7 3 M2 07/22/2024 3:37 PM T [facility] Comment: NOTE: eGFR is not calculated for patients <18 years of age. This is an estimated GFR calculation using the new CKD EPI creatinine equation without race and so does not require a correction factor for race. This estimated GFR should not be used for calculating drug doses. 07/22/2024 2:15 PM CDT us Mary Ellen Mahmood MD LABORATORY Final Result [facility] [address] [place] [address], [place] [phone] from Last 3 Months Insurance [facility] Advance Directives * DNR (Latest Code Status on File) Date Activated Date Inactivated Comments 02/18/2024 9:43 PM 04/22/2024 3:04 PM * Full Code Date Activated Date Inactivated Comments 10/26/2023 11:58 AM 10/28/2023 4:39 PM * Full Code Date Activated Date Inactivated Comments 09/18/2023 11:43 AM 09/24/2023 11:53 AM * Full Code Date Activated Date Inactivated Comments 09/07/2023 9:04 PM 09/09/2023 6:46 PM * Full Code Date Activated Date Inactivated Comments 09/06/2023 11:23 AM 09/07/2023 8:29 PM Care Teams Rn Navigator Relationship Specialty Start Date End Date Erika Carreon NP [address] [place] [id number] PCP - General NURSE PRACTITIONER 04/22/24 Tony Mcelroy MD [address] [address] CARDIOVASCULAR DISEASE 04/29/24 Bar Alegria MD [address] [facility] [address] [place] [address] INTERNAL MEDICINE 04/29/24
[2024-07-28 17:45] LABS: Basophils Absolute Auto 0.1 K/mm3 (0.0-0.1); Basophils Percent Auto 0.6 % (0.2-1.2); Eosinophils Percent Auto 0.4 % (0-4.4); Hematocrit 39.3 % (42.0-52.0); Hemoglobin 12.8 g/dL (14.0-18.0); Immature Granulocyte Absolute 0.04 K/mm3 (0.00-0.031); Immature Granulocyte Percent A 0.4 % (0-0.5); Lymphocytes Absolute Auto 3.33 K/mm3 (0.9-3.2); Lymphocytes Percent Auto 33.9 % (18.3-44.2); Mean Corpuscular HGB Conc 32.6 g/dl (32-36); Mean Corpuscular Volume 92.3 fl (80-100); Mean Platelet Volume 8.6 fl (7.4-10.4); Monocytes Absolute Auto 1.2 K/mm3 (0.1-0.6); Monocytes Percent Auto 12.6 % (2.6-8.5); Neutrophils Absolute Auto 5.1 K/mm3 (1.3-6.7); Neutrophils Percent Auto 52.1 % (45.5-73.1); Platelet Count Result 388 k/mm3 (150-375); Red Blood Count 4.26 M/mm3 (4.6-6.20); Red Cell Distribution Width 15.5 % (11.5-14.5); White Blood Count 9.8 K/mm3 (4.5-10.0)
[2024-07-28 17:56] LABS: Alanine Aminotransferase 38 U/L (6-50); Albumin Level 5.3 g/dL (3.5-5.1); Alkaline Phosphatase 80 U/L (38-126); Anion Gap 26 mmol/L (4-12); Aspartate Amino Transferase 63 U/L (17-59); Bilirubin,Total 0.5 mg/dL (0.2-1.3); Blood Urea Nitrogen 16 mg/dL (9-20); Calcium 9.1 mg/dL (8.4-10.2); Carbon Dioxide 22 mmol/L (22-30); Chloride 95 mmol/L (98-107); Estimated CRCL calculation 88 ml/min; Estimated Glomerular Filt Rate > 60; Glucose 113 mg/dL (65-110); INR 0.8; Lipase 23 U/L (23-300); Potassium 3.7 mmol/L (3.4-5.0); Sodium 143 mmol/L (137-145)
[2024-07-28 17:57] LABS: Partial Thromboplastin Time 30.5 Seconds (22.3-36.8)
[2024-07-28 18:11] LABS: Troponin I 0.051 ng/mL (0.000-0.034)
--- OUTSIDE RECORDS SUMMARY | 2024-07-28 18:56 | XMS_ITS | Encounter Summary ---
Author Organization [facility] Healthcare Address [address] [place] [address] Care Team Providers Care Nicker And Breaker Name Role Phone Pelno Rodriguez MD Primary Care Provi panda Mary Ellen Mahmood MD Unavailable [phone] Simran Pruett Unavailable Unavailable Encounter Details Date Type Department Care Team (Late st Contact Info) Description 07/27/2024 Telephone 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
--- OUTSIDE RECORDS SUMMARY | 2024-07-28 18:56 | XMS_ITS | Encounter Summary ---
Author Organization [facility] Address [address] [place] [address] Phone Care Team Providers Care Auricular Therapist Name Role Phone Pelon Rdoriguez MD Primary Care Provi panda Mary Ellen Mahmood MD Unavailable [phone] Simran Pruett Unavailable Unavailable Reason for Referral * Cardiology (Routine) - Pending Review Specialty Diagnoses / Procedures Referred By Contac t Referred To Contact Diagnoses Chronic combined systolic and diastolic congestive heart failure (HCC) Procedures Transthoracic Echo (TTE) Complete W Doppler/CF Mary Ellen Mahmood MD [address] [facility] [address] [place] [address] Phone: tel: fax: [facility] Referral ID Status Reason Start Date Expiration Date V isits Requested Visits Authorized [id number] Pending Review 07/27/2024 08/26/2025 1 1 Encounter Details Date Type Department Care Team (Late st Contact Info) Description 07/27/2024 9:45 AM CDT Office Visit [facility] Cardiology [address] [facility] [address] [place] [address] Mary Ellen Mahmood MD [address] [place] [address] Chronic combined systolic and diastolic congestive heart failure (HCC) (Primary Dx) Social History Tobacco Use Types Packs/Day Years Used Date Smoking Tobacco: Former Cigarettes Passive Smoke Exposure: Never Smokeless Tobacco: Former Tobacco Cessation:Counseling Given: Not Answered Sex and Gender Information Value Date Recorded Sex Assigned at Not on file 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 (Kat) Medications: [...] Primary documented in this encounter Care Teams Auricular Therapist Relationship Specialty Start Date End Date Pelon Rodriguez MD [address] [place] [address] [address] [facility] [address] [place] [address] PCP - General Family Medicine 06/23/24 Mary Ellen Mahmood MD [address] [address] Consulting Physician Cardiology 07/26/24 Simran Pruett Primary Embedded Systems Developer 07/26/24 documented as of this encounter
--- OUTSIDE RECORDS SUMMARY | 2024-07-28 18:56 | XMS_ITS | Encounter Summary ---
Author Organization [facility] Healthcare Address [address] [place] [address] Care Team Providers Care Pressure Steamer Tender Name Role Phone Pelon Rodriguez MD Primary Care Provi panda Mary Ellen Mahmood MD Unavailable Simran Pruett Unavailable Unavailable Encounter Details Date Type Department Care Team (Late st Contact Info) Description 06/24/2024 Results Follow-Up [facility] [address] [place] [address] Mary Ellen Mahmood MD [address] [facility] [address] [place] [address] Social History Tobacco Use Types Packs/Day Years Used Date Smoking Tobacco: Former Cigarettes Passive Smoke Exposure: Never Smokeless Tobacco: Former Sex and Gender Information Value Date Recorded Sex Assigned at Not on file 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 Gender Identity Not on file Sexual Orientation Not on file documented as of this encounter Plan of Treatment Not on file documented as of this encounter Visit Diagnoses Not on filedocumented in this encounter Care Teams Pressure Steamer Tender Relationship Specialty Start Date End Date Pelon Rodriguez MD [address] [place] [address] DR HUANG B [facility] [address] [place] [address] PCP - General Family Medicine 06/23/24 Mary Ellen Mahmood MD [address] [address] Consulting Physician Cardiology 07/26/24 Simran Pruett Primary Taxi Servicer 07/26/24 documented as of this encounter
--- OUTSIDE RECORDS SUMMARY | 2024-07-28 18:57 | XMS_ITS | Data Portability ---
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 Plan of Treatment Reminders Order Date Submit Date Provider Last Modified By Organization Details Last Modified Time Details Appointments None recorded. Lab CBC w/ auto diff 2023 [facility] Outpatient Lab, [address] [place], [address], 5 19:38:54 CMP, serum or plasma [address] Outpatient Lab, [address] [place], [address], 4 17:16:55 lipid panel, serum 2023 024 [facility] (Lab), [address] [place], [address], 4 08:13:06 TSH + free T4, serum [address] Outpatient Lab, [address] [place], [address], 4 17:16:55 HbA1c (hemoglobi n A1c), blood 2023 024 [facility] Outpatient Lab, [address] [place], [address], 4 08:13:06 Referral None recorded. Procedures None recorded. Surgeries None recorded. Imaging None recorded. Medication Orders zolpidem 10 mg tablet 2023 [facility][id number], [address], [place], [place], [id number], 4 17:09:42 clonazepam 2 mg tablet 2023 024 [facility] #39360, [address], [place], [place], [id number], 4 17:09:40 hydrocodon e 10 mg-acetami nophen 325 mg tablet 2023 024 [facility]15963, [address], [place], [place], [id number], 4 17:09:36 cyclobenza elen 5 mg tablet 2023 024 [facility] #[id number], [address], [place], [place], [id number], 4 17:09:35 furosemide 20 mg tablet 2023 024 [facility] #64709, [address], [place], [place], [id number], 4 17:09:35 midodrine 10 mg tablet 2023 024 [facility] #40679, [address], [place], [place], [id number], 4 15:15:22 Patient TargetsNo targets recorded. Patient Instructions Encounter Date Encounter Id Patient Instructions Last Modified By Organization Details Last Modified Time 03/22/2024 [id number] Follow up in 3 months if not continuing hospice. Obtain labs Tests: Referral: Recommend: Tetanus vaccine Not available 03/22/2024 14:52:15 04/13/2024 [id number] Follow up in 3 months Prescriptions sent to pharmacy Obtain labs Tests: Referral: Recommend: Tetanus vaccine Shingles vaccine Not available 04/13/2024 17:08:37 Reason for Referral None Reported. Results Created Date Observation Date Name Description Value Unit Range Abnormal Flag Note LastModifiedBy Organization Detail LastModifiedTime Result Notes None recorded. Problems Name Problem SNOMED Code Status Onset Date Resolution Date Notes Provider Name and Address Organization Details Recorded Time Pain in bilateral legs 4624132335365 9108 Active 2023 Erika Carreon APRN [address], [address], [place], [address], [employer] 4 14:54:44 Heart failure 11998672 Active 2023 Erika Carreon APRN [address], [address], [place], [address], [employer] 4 08:36:05 Anxiety 16812695 Active 2023 Erika Carreon APRN [address], [address], [place], [address], [employer] 4 16:57:51 Insomnia 042341748 Active 2023 Erika Carreon APRN [address], [address], [place], [address], [employer] 4 17:05:06 Pain in lower limb 48783913 Active 2023 Erika Carreon APRN [address], [address], [place], [address], [employer] 4 17:05:54 Prediabetes 894398685 Active 2024 Erika Carreon APRN [address], [address], [place], [address], [employer] 5 19:38:15 Problem Notes None recorded. Procedures Surgical History Date Name Laterality Status Provider Name and Address Organization Details Recorded Time extracorporeal membrane oxygenation completed Freida Johnson MA [employer] 03/22/2024 14:22:05 Ankle Surgery completed Freida Johnson MA [facility] [employer] [facility] 03/22/2024 14:22:16 Imaging Results None recorded. Procedure Notes None recorded. Medical Equipment None Reported. Allergies Allergen ID Allergen Name Allergen Category Reaction Reaction Severity Criticality Documentation Date Start Date Code Code System Note Provider Name and Address Organization Details Recorded Time 21401 sulfameth oxazole / trimethop rim medicatio n Not available Not available Not available 03/22/2024 79002 RxNorm DAGO Gomez, [facility] [employer] [facility] 14:07:29 Medications Name Sig Start Date Stop Date Status Note LastModified by Organization Details LastModified Time hshs after hours fee AFTER hours fee 03/22 completed Not Available Not Available Not Available local delivery 03/22 completed Not Available Not Available Not Available hshs delivery fee delivery fee 03/22 completed Not Available Not Available Not Available status covid-19/ flu a-b antigen tst TEST DIRECTED TODAY active Not Available Not Available No t Available emergency /stat fee 03/22 completed Not Available Not Available Not Available fentanyl 50 mcg/hr transderm al patch PLACE 1 PATCH ON SKIN EVERY THIRD DAY FOR CHRONIC PAIN 03/22 completed Not Available Not Available Not Available doxycycli ne hyclate 100 mg capsule TAKE 1 CAPSULE BY MOUTH TWICE DAILY FOR 10 DAYS. START ONCE MICHELL ARE REMOVED 03/22 completed Not Available Not Available Not Available atorvasta tin 20 mg tablet 03/22 completed Not Available Not Available Not Available Normal Saline Flush 0.9 % injection syringe active Not Available Not Available Not Available polyethyl blas glycol 3350 17 gram oral powder packet TAKE 17G BY MOUTH MIXED WITH 8 OZ OF WATER DIRECTED FOR 14 DAYS 03/22 completed Not Available Not Available Not Available morphine concentra te 100 mg/5 mL (20 mg/mL) oral solution TAKE 1ML BY MOUTH EVERY 2 HOURS NEEDED FOR PAIN. CONTACT HOSPICE IF SYMPTOMS NOT RELIEVED AT 1ML 05/09 completed Not Available Not Available Not Available ibuprofen 800 mg tablet TAKE 1 TABLET BY MOUTH EVERY 8 HOURS NEEDED FOR PAIN 03/22 completed Not Available Not Available Not Available hydrocodo ne 5 mg-acetam inophen 325 mg tablet TAKE 1 TABLET BY MOUTH EVERY 6 HOURS NEEDED FOR PAIN OR ACUTE PAIN 03/22 completed Not Available Not Available Not Available clonazepa m 1 mg tablet TAKE 1 TABLET BY MOUTH TWICE DAILY NEEDED FOR ANXIETY 03/22 completed Not Available Not Available Not Available morphine ER 30 mg tablet,ex tended release TAKE 1 TABLET BY MOUTH TWICE DAILY 05/09 completed Not Available Not Available Not Available hydrocodo ne 10 mg-acetam inophen 325 mg tablet Take 1 tablet every 6 hours by oral route as needed. active DO NOT PRESCRIB E FOR PATIENT Not Available Not Available Not Available tramadol 50 mg tablet TAKE 1 TABLET BY MOUTH THREE TIMES DAILY NEEDED 03/22 completed Not Available Not Available Not Available spironola ctone 25 mg tablet active Not Available Not Available No t Available ondansetr on 8 mg disintegr ating tablet active Not Available Not Available Not Available Nitro-Bid 2 % transderm al ointment APPLY 1 INCH TOPICALL Y TO THE AFFECTED AREA TWICE DAILY 04/13 completed Not Available Not Available Not Available propranol ol 10 mg tablet TAKE 1 TABLET BY MOUTH TWICE DAILY NEEDED FOR ANXIETY 03/22 completed Not Available Not Available Not Available hydromorp forest 2 mg tablet 03/22 completed Not Available Not Available Not Available fentanyl 100 mcg/hr transderm al patch APPLY 1 PATCH TRANSDER MATHEW EVERY 3 DAYS WITH 75MCG PATCHES 05/09 completed Not Available Not Available Not Available trazodone 100 mg tablet TAKE 1 TABLET BY MOUTH AT BEDTIME NEEDED FOR SLEEP active Not Available Not Available No t Available lorazepam 2 mg tablet Take 1 tablet every 4 hours by oral route. 04/13 completed Not Available Not Available Not Available morphine ER 60 mg tablet,ex tended release TAKE 1 TABLET BY MOUTH TWICE DAILY FOR CHRONIC PAIN 05/09 completed Not Available Not Available Not Available hydrocodo ne 7.5 mg-acetam inophen 325 mg tablet 03/22 completed Not Available Not Available Not Available pantopraz ole 40 mg tablet,de layed release 03/22 completed Not Available Not Available Not Available hyoscyami ne sulfate 0.125 mg tablet TAKE 1-2 TABLETS UNDER TONGUE EVERY 4 HOURS NEEDED FOR RESPIRAT ORY SECRETIO NS 03/22 completed Not Available Not Available Not Available clonazepa m 2 mg tablet TAKE 1 TABLET BY MOUTH TWICE DAILY DIRECTED FOR ANXIETY active Not Available Not Available No t Available losartan 25 mg tablet active Not Available Not Available Not Available gabapenti n 300 mg capsule TAKE 1 CAPSULE BY MOUTH EVERY NIGHT AT BEDTIME FOR SPASMS 04/13 completed Not Available Not Available Not Available zolpidem 5 mg tablet TAKE 1 TABLET BY MOUTH AT BEDTIME FOR SLEEP 03/22 completed Not Available Not Available Not Available furosemid e 20 mg tablet TAKE 1 TABLET BY MOUTH EVERY DAY DIRECTED active Not Available Not Available No t Available lorazepam 1 mg tablet TAKE 1 TABLET BY MOUTH EVERY 4 HOURS NEEDED FOR ANXIETY 04/13 completed Not Available Not Available Not Available fentanyl 25 mcg/hr transderm al patch PLACE 1 PATCH ONTO THE SKIN EVERY THIRD DAY 04/13 completed Not Available Not Available Not Available zolpidem 10 mg tablet TAKE 1 TABLET BY MOUTH EVERY DAY DIRECTED FOR INSOMNIA active Not Available Not Available No t Available [employer] forest 4 mg tablet TAKE 2 TABLETS BY MOUTH EVERY 4 HOURS NEEDED 04/13 completed Not Available Not Available Not Available fentanyl 75 mcg/hr transderm al patch APPLY 1 PATCH TRANSDER MATHEW EVERY 3 DAYS WITH 100MCG PATCH 05/09 completed Not Available Not Available Not Available ondansetr on 4 mg disintegr ating tablet active Not Available Not Available Not Available haloperid ol lactate 2 mg/mL oral concentra te 03/22 completed Not Available Not Available Not Available oxycodone 5 mg tablet 03/22 completed Not Available Not Available Not Available enoxapari n 80 mg/0.8 mL subcutane ous syringe 03/22 completed Not Available Not Available Not Available midodrine 10 mg tablet TAKE 1 TABLET BY MOUTH THREE TIMES DAILY DIRECTED active Not Available Not Available No t Available cyclobenz aprine 5 mg tablet TAKE 1 TABLET BY MOUTH THREE TIMES DAILY DIRECTED active Not Available Not Available No t Available fentanyl 12 mcg/hr transderm al patch PLACE ONE PATCH ONTO SKIN EXTERNAL LY EVERY 72 HOURS. COMBINE WITH FENTANYL 25MCG PATCH FOR A TOTAL of 37MCG. 03/22 completed Not Available Not Available Not Available melatonin active Not Available Not Jacqueline ilable Not Available morphine 100mg per 5ml 1 ml every 2 hrs 04/13 completed Not Available Not Available Not Available Aleve active Not Available Not Availa ble Not Available vitamin B complex active Not Available Not Available Not Available folic acid active Not Available Not Available Not Available iron 65 mg daily active Not Available Not Available No t Available Senokot active Not Available Not Avail able Not Available fentanyl 150 mg patch 04/13 completed Not Available Not Available Not Available milrinone 37/185. 0.77mg per hour. active Not Available Not Available No t Available Vitamin B12 1000mg daily active Not Available Not Available No t Available quetiapin e 50 mg tablet TAKE 1 TABLET BY MOUTH TWICE DAILY NEEDED FOR ANXIETY 03/22 completed Not Available Not Available Not Available heparin, porcine (PF) 10 unit/mL intraveno us syringe active Not Available Not Available Not Available milrinone 40 mg/200 mL(200 mcg/mL) in 5 % dextrose intraveno us piggybk active Not Available Not Available Not Available Xarelto 15 mg tablet TAKE 1 TABLET BY MOUTH TWICE DAILY 03/22 completed Not Available Not Available Not Available Xarelto 20 mg tablet TAKE 1 TABLET BY MOUTH DAILY 03/22 completed Not Available Not Available Not Available lidocaine 5 % topical ointment APPLY TOPICALL Y TO AFFECTED AREAS EVERY DAY NEEDED FOR PAIN 03/22 completed Not Available Not Available Not Available Multi Vitamin active Not Available Not Available Not Available Jardiance 10 mg tablet active Not Available Not Available Not Available naloxone 4 mg/actuat ion nasal spray active Not Available Not Available Not Available Verquvo 5 mg tablet active Not Available Not Available No t Available Vitals Date Recorded Body height Body mass index (BMI) Body weight Body temperature Heart rate Oxygen saturation Oxygen saturation in Arterial blood by Pulse oximetry Pain severity - 0-10 verbal numeric rating [Score] - Reported Systolic blood pressure Diastolic blood pressure Provider Name and Address Organization Details Last Updated DateTime 4 182.88 cm 18 kg/m2 81595.7 9 g 98.2 [degF] 86 /min 99 % 99 % 7 120 mm[Hg] 64 mm[Hg] Freida Johnson [place] [facility] 4 14:07:07 Date Recorded Body height Body mass index (BMI) Body weight Body temperature Heart rate Oxygen saturation Oxygen saturation in Arterial blood by Pulse oximetry Pain severity - 0-10 verbal numeric rating [Score] - Reported Systolic blood pressure Diastolic blood pressure Provider Name and Address Organization Details Last Updated DateTime 4 182.88 cm 20.1 kg/m2 33988.6 7 g 98 [degF] 102 /min 99 % 99 % 6 108 mm[Hg] 64 mm[Hg] Freida Johnson MA [facility] [employer] [facility] 16:42:11 Social History Question Answer Notes LastModified by Organizat ion Details LastModified Time Tobacco Smoking Status Former Smoker Freida Johnson MA null, [facility] [employer] [facility] 03/22/2024 14:20:20 What Is Your Level Of Alcohol Consumption? None Information not available 03/22/2024 What Is Your Level Of Caffeine Consumption? None Information not available 03/22/2024 In The 14 Days Before Symptom Onset, Have You Had Close Contact With A Laboratory-confir med COVID-19 While That Case Was Ill? No Information not available 03/22/2024 In The 14 Days Before Symptom Onset, Have You Had Close Contact With A Person Who Is Under Investigation For COVID-19 While That Person Was Ill? No Information not available 03/22/2024 Are You Currently Employed? Yes Information not available 03/22/2024 What Type Of Diet Are You Following? REGULAR Information not available 03/22/2024 Have There Been Any Changes To Your Family Or Social Situation? Yes On Hospice Information no t available 03/22/2024 When Did You Quit Smoking? 1-5yearssince lastcigarette Information not available 03/22/2024 Do You Use Insect Repellent Routinely? No Information not available 03/22/2024 Where Do You Live? Apartment Information not available 03/22/2024 What Was The Date Of Your Most Recent Tobacco Screening? 04/13/2024 Information not available 04/13/2024 Do You Have Any Pets? Yes Information not available 03/22/2024 Do You Use Your Seat Belt Or Car Seat Routinely? Yes Information not available 03/22/2024 Do You Have Smoke And Carbon Monoxide Detectors In Your Home? Yes Information not available 03/22/2024 At What Age Did You Start Smoking Tobacco? 16 Information not available 03/22/2024 Are You Passively Exposed To Smoke? No Information no t available 03/22/2024 Are There Any Smokers In Your House? No Information not available 03/22/2024 How Much Tobacco Do You Smoke? 1 PPD Information not available 03/22/2024 Do You Feel Stressed (tense, Restless, Nervous, Or Anxious, Or Unable To Sleep At Night)? [id number] Information not available 03/22/2024 Do You Use Any Illicit Or Recreational Drugs? No Information not available 03/22/2024 Do You Use Sunscreen Routinely? No Information not available 03/22/2024 Have You Recently Traveled Abroad? No Information not available 03/22/2024 Do You Have Any Dietary Restrictions? No Information not available 03/22/2024 Do You Or Have You Ever Used Any Other Forms Of Tobacco Or Nicotine? No Information not available 03/22/2024 Sex: Unknown Functional Status Question Answer Note LastModified by Organization D etails LastModified Time What is your exercise level? None Information not available 03/22/2024 Mental Status None recorded. Family History Relationship Description Onset Age of this Age Resolved Age Notes LastModified by Organization Details LastModified Time Father Heart disease [email or web address] Not available 2023 14:18:54 Paternal Grandmother Malignant neoplastic disease [email or web address] Not available 2023 14:19:08 Paternal Aunt Malignant neoplasm of bone [email or web address] Not available 2023 14:19:21 Medical History No medical history recorded. Immunizations Vaccine Type Date Status Note Provider Ronn e and Address Organization Details Recorded Time COVID-19, mRNA, LNP-S, PF, 100 mcg/0.5mL dose or 50 mcg/0.25mL dose 07/06/2021 completed Erika Carreon APRN [address] [facility], [place], [address], [facility] Ellie 03/22/2024 14:25:35 Past Encounters Encounter ID Performer Location Encounter Start Date Encounter Closed Date Diagnosis/Indication Diagnosis SNOMED-CT Code Diagnosis ICD10 Code Diagnosis Note [id number] Erika BurgosINO box [facility] [address] [facility], [facility] [address] [place] [address] 03/22/2024 13:52:57 03/22/2024 15:27:15 Heart failure 77586684 I50.9 [id number] Erika BurgosINO box [facility] [address] [facility], [facility] [address] [place] [address] 04/13/2024 16:31:22 04/13/2024 17:18:13 Anxiety 21437278 F41.9 Insomnia 736837857 G47.0 0 Pain in lower limb [address] 006 M79.606 Heart failure 08209767 I 50.9 Diabetes m ellitus screening 070459998 Z13.1 Hyperlipid emia screening 045059146 Z13.220 Screening for disorder 953506666 Z13.9 Thyroid di sorder screening 220229965 Z13.29 Health Concerns Section Related Observation LastModified by Organization Detai ls LastModified Time None Recorded Concern Status LastModified by Organization Details LastModified Time None Recorded Advance Directives Directive None Recorded Payers Encounter Date Sequence Insurance Name Policy Number Policy Rangel Covered Member ID Rangel Member ID Guarantor Name 03/22/2024 1 [employer] [id number] Douglas Wright [id number] Douglas Wrigth 04/13/2024 1 [employer] [id number] Douglas Wright [id number] Douglas Wright Notes Date Note Type Note Provider Name and Address Organization Details Recorded Time 03/22/2024 text/html Douglas presents today to establish care as a new patient. He is currently on hospice due to heart failure. He states that he wants to get off of hospice. He is currently on a continuous infusion of milrinone. He states that he was at [facility] for a month and sent home on hospice due to the heart failure. He states his EF was at 20 when he left the hospital. He is on multiple pain medications that this provider will not prescribe [facility]. He states that he has an appointment with a claims specialist on 04/05/2024. He cannot get off of hospice until he has a primary provider and a claims specialist in place. Erika Carreon APRN [address], [place], [address], [employer] [facility] [employer] 03/22/2024 15:18:21 04/13/2024 text/html Douglas presents today to discuss medications. Patient states that he is revoking his hospice care effective of 04/15/2024. He has an appointment with claims specialist on 04/16/2024. He states that he is wanting to see what his heart is doing. Patient informed that this provider will not prescribe morphine or fentanyl for his pain. Also instructed that this provider will also not prescribe the milrinone and that will have to be cardiology. 03/22/2024Douglas presents today to establish care as a new patient. He is currently on hospice due to heart failure. He states that he wants to get off of hospice. He is currently on a continuous infusion of milrinone. He states that he was at [facility] for a month and sent home on hospice due to the heart failure. He states his EF was at 20 when he left the hospital. 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 He states that he has an appointment with a claims specialist on 04/05/2024. He cannot get off of hospice until he has a primary provider and a claims specialist in place. Erika Carreon APRN [address], [address], [place], [address], [employer] 04/13/2024 17:16:49
--- OUTSIDE RECORDS SUMMARY | 2024-07-28 18:57 | XMS_ITS | Clinical Summary ---
Author Organization [facility] Address [address] [place] [address] Care Team Providers Care Compensation Coordinator Name Role Phone Erika Carreon NP Primary Care Provider [phone] Tony Mcelroy MD Unavailable Bar Alegria MD Unavailable [phone] Allergies Active Allergy Reactions Criticality Noted [...] 02/24/20 Active normal saline 0.9 % injectionIndicatio ns:line cook Inject 10 mLs into the vein as needed (line cook). Indications: line cook 02/18/20 Active Heparin Sodium, Porcine, (HEPARIN, PORCINE, LOCK FLUSH IV)Indications:london e maintenance 50 Units by IVP route as needed (line cook). use after normal saline for line cook Indications: line cook 02/18/20 Active fentaNYL (DURAGESIC) 100 mcg/hrIndications: Chronic [...] Date Diagnosed Date Chronic systolic heart failure ([facility]/HCC) 2024 Pancreatitis, alcoholic, acute ([facility]/HCC) 024 Pancreatic pseudocyst ([facility]/HCC) 09/18/2023 Alcohol-induced acute pancreatitis ([facility]/HCC) 08/2023 Alcoholism ([facility]) 09/06/2023 Resolved Problems Problem Noted Date Diagnosed Date Resolved Date Pancreatitis, acute ([facility]/HCC) 09/07/2023 09/09/2023 Alcoholic ketoacidosis 09/06/202309/06 Alcoholic pancreatitis ([facility]/HCC) 09/06/2023 09/07/2023 Acute pancreatitis ([facility]/HCC) 03/29/2023 09/09/2023 Pancreatitis ([facility]/HCC) 03/26/202308/14 Encounters Date Type Department Care Team Description 07/22/2024 1:38 PM CDT - 07/22/2024 2:30 PM CDT Hospital Encounter [facility] Surgery [id number] [place] [address] Tony Mcelroy MD Discharge Disposition: Home or Self Care (Routine Discharge) 07/22/2024 1:37 PM CDT Hospital Encounter [facility] Laboratory [address] [place] [address] Tony Mcelroy MD Discharge Disposition: Home or Self Care (Routine Discharge) 07/22/[address] [facility] [address] [place] [address] Mary Ellen Mahmood MD Lab Results (Critical value ) 07/22/2024 Travel 06/24/2024 1:57 PM HANDS AND DIAL INSPECTOR - 06/24/2024 2:52 PM HANDS AND DIAL INSPECTOR Hospital Encounter [facility] Surgery [address] [place] [address] Tony Mcelroy MD Discharge Disposition: Home or Self Care (Routine Discharge) 06/24/2024 Travel 06/18/2024 12:07 PM HANDS AND DIAL INSPECTOR - 06/18/2024 12:40 PM HANDS AND DIAL INSPECTOR Hospital Encounter [facility] Surgery [address] [place] [address] Tony Mcelroy MD Discharge Disposition: Home or Self Care (Routine Discharge) 06/18/2024 Travel 06/10/2024 1:43 PM HANDS AND DIAL INSPECTOR - 06/10/2024 3:03 PM HANDS AND DIAL INSPECTOR Hospital Encounter [facility] Surgery [address] [place] [address] Tony Mcelroy MD Discharge Disposition: Home or Self Care (Routine Discharge) 06/10/2024 Travel 06/03/2024 2:24 PM HANDS AND DIAL INSPECTOR - 06/03/2024 3:10 PM HANDS AND DIAL INSPECTOR Hospital Encounter [facility] Surgery [address] [place] [address] Tony Mcelroy MD Discharge Disposition: Home or Self Care (Routine Discharge) 06/03/2024 Travel 05/28/2024 1:56 PM HANDS AND DIAL INSPECTOR - 05/28/2024 2:35 PM HANDS AND DIAL INSPECTOR Hospital Encounter [facility] Surgery [address] [place] [address] Tony Mcelroy MD Discharge Disposition: Home or Self Care (Routine Discharge) 05/28/2024 Travel 05/20/2024 2:40 PM HANDS AND DIAL INSPECTOR - 05/20/2024 3:45 PM HANDS AND DIAL INSPECTOR Hospital Encounter [facility] Surgery [address] [place] [address] Tony Mcelroy MD Discharge Disposition: Home or Self Care (Routine Discharge) 05/20/2024 Travel 05/13/2024 1:51 PM HANDS AND DIAL INSPECTOR - 05/13/2024 2:49 PM HANDS AND DIAL INSPECTOR Hospital Encounter [facility] Surgery [address] [place] [address] Tony Mcelroy MD Discharge Disposition: Home or Self Care (Routine Discharge) 05/13/2024 Travel 05/07/2024 3:04 PM HANDS AND DIAL INSPECTOR - 05/07/2024 6:02 PM HANDS AND DIAL INSPECTOR Emergency [facility] Emergency Room [address] [place] [address] Marko Blank MD Leg Pain Discharge Disposition: Home or Self Care (Routine Discharge) 05/07/2024 Travel 05/06/2024 2:37 PM HANDS AND DIAL INSPECTOR - 05/06/2024 3:30 PM HANDS AND DIAL INSPECTOR Emergency [facility] Emergency Room [address] [place] [address] Discharge Disposition: Left Against Medical Advice 05/06/2024 1:37 PM HANDS AND DIAL INSPECTOR - 05/06/2024 2:22 PM HANDS AND DIAL INSPECTOR Hospital Encounter [facility] Surgery [address] [place] [address] Tony Mcelroy MD Discharge Disposition: Home or Self Care (Routine Discharge) 05/06/2024 Travel 04/29/2024 3:29 PM HANDS AND DIAL INSPECTOR - 04/29/2024 5:45 PM HANDS AND DIAL INSPECTOR Emergency [facility] Emergency Room [address] [place] [address] Joselito Vega MD Leg Pain Discharge Disposition: Home or Self Care (Routine Discharge) 04/29/2024 2:52 PM HANDS AND DIAL INSPECTOR - 04/29/2024 3:27 PM HANDS AND DIAL INSPECTOR Hospital Encounter [facility] Surgery [address] [place] [address] Tony Mcelroy MD Discharge Disposition: Home or Self Care (Routine Discharge) 04/29/2024 Travel from Last 3 Months Family History Medical History Relation Comments [place] Father No Known Problems Mother meninigitis Sister [...] from your doctor or pharmacy? Never 09/18/2023 [facility] Utilities Answer Date Recorded In the past 12 months has e [employer], gas, oil, or water [employer] threatened to shut off services in your [...] How often do you attend chur or cheondoism services? 1 to 4 times per year 08/13/2023 Do you belong to any clubs o r organizations such as holiness groups, unions, fraternal or athletic groups, or [...] medical care, and heating? Patient declined 10/27/2023 [facility] - [...] place to sleep or slept in a chcf (including now)? No 03/29/2023 Housing Stability Vital [...] any time in the past 12 m [facility], were you homeless or living in a chcf (including now)? Patient declined 10/27/2023 Sex and [...] Comments Blood Pressure 106/75 05/07/2024 6:01 PM HANDS AND DIAL INSPECTOR Pulse 86 05/07/2024 6:01 PM HANDS AND DIAL INSPECTOR Temperature 36.1 C (97 F) 05/07/2024 6:01 PM HANDS AND DIAL INSPECTOR Respiratory Rate 18 05/07/2024 6:01 PM HANDS AND DIAL INSPECTOR Oxygen Saturation 100% 05/07/2024 6:01 PM HANDS AND DIAL INSPECTOR Inhaled Oxygen Concentration - - Weight 65.5 kg (144 lb 6.4 oz) 05/07/2024 3:07 P M HANDS AND DIAL INSPECTOR Height 185.4 cm (6' 1 ) 05/07/2024 3:07 PM HANDS AND DIAL INSPECTOR Body Mass Index 19.05 05/07/2024 3:07 PM HANDS AND DIAL INSPECTOR Plan of Treatment Upcoming Encounters Date Type Department Care Team (Late st Contact Info) Description 07/29/2024 3:00 PM CDT Appointment [facility] [address] [place] [address] Tony Mcelroy MD [address] [address] 08/05/2024 3:00 PM CDT Appointment [facility] [address] [place] [address] Tony Mcelroy MD [address] [address] [facility] [facility] [place], [place] [id number] 08/12/2024 3:[address] [facility] [address] [place] [address] Tony Mcelroy MD [address] [place] [address] 08/19/2024 3:[address] [facility] [address] [place] [address] Tony Mcelroy MD [address] [place] [address] 08/26/2024 3:[address] [facility] [address] [place] [address] Tony Mcelroy MD [address] [address] [place] [address] Health Maintenance Due Date Last Done [...] 2:15 PM CDT Chronic systolic heart failure ([facility]/HCC) COMPREHENSIVE METABOLIC PANEL Routine 07/22/2024 2:15 PM CDT Chronic systolic heart failure ([facility] H[facility]/HCC) PRO-BRAIN NATRIURETIC PEPTIDE Routine 06/24/2024 3:05 PM HANDS AND DIAL INSPECTOR Chronic systolic heart failure (CMS/HCC HHS/HCC) COMPREHENSIVE METABOLIC PANEL Routine 06/24/2024 3:05 PM HANDS AND DIAL INSPECTOR Chronic systolic heart failure (CMS/HCC HHS/HCC) from Last 3 Months Results * (ABNORMAL) PRO-BRAIN NATRIURETIC PEPTIDE (07/22/2024 2:15 PM CDT) Only the most recent of2 resultswithin the time period is included. PRO-B TYPE NATRIURETIC PEPTIDE 304(H) <125 PG/ML 07/22/2024 3:37 PM CDT [facility] Comment: CUT POINTS ESTABLISHED BY INTERNATIONAL [...] Mary Ellen Mahmood MD LABORATORY Final Result [facility] [address] [place] [address], [place] [phone] * (ABNORMAL) COMPREHENSIVE METABOLIC PANEL (07/22/2024 2:15 PM CDT) Only the most recent of2 resultswithin the time period is included. GLUCOSE 474(HH) 70 - 99 MG/DL 07/22/2024 3:37 PM CDT [facility] Comment: Critical Result(s) Called at: 15:31:41 on 07/22/2024 by: KEI FORBES to and read back by: MAGDALENA DANIELS [employer] ATT[employer] BUN 25(H) 7 - 18 MG/DL 07/22/2024 3:37 PM CDT [facility] CREATININE S/P/B 1.07 0.7 - 1.3 MG/DL 07/22/2024 3:37 PM CDT [facility] SODIUM S/P/B 132(L) 136 - 145 MMOL/L 07/22/2024 3:37 PM CDT [facility] POTASSIUM S/P/B 5.2(H) 3.5 - 5.1 MMOL/L 07/22/2024 3:37 PM CDT [facility] CHLORIDE S/P/B 98(L) 100 - 108 MMOL/L 07/22/2024 3:37 PM CDT [facility] CO2 27.3 21 - 32 MMOL/L 07/22/2024 3:37 PM CDT [facility] CALCIUM S/P/B 9.0 8.5 - 10.1 MG/DL 07/22/2024 3:37 PM CDT [facility] BILIRUBIN TOTAL S/P/B 0.2 0.2 - 1.2 MG/DL 07/22/2024 3:37 PM CDT [facility] TOTAL PROTEIN S/P/B 6.3(L) 6.4 - 8.2 G/DL 07/22/2024 3:37 PM CDT [facility] ALBUMIN S/P/B 3.7 3.4 - 5.0 G/DL 07/22/2024 3:37 PM T [facility] AST 13(L) 15 - 37 U/L 07/22/2024 3:37 PM T [facility] ALT 24 16 - 60 U/L 07/22/2024 3:37 PM T [facility] ALKALINE PHOSPHATASE S/P/B 55 50 - 136 U/L 07/22/2024 3:37 PM T [facility] ANION GAP 6.7 5 - 15 MMOL/L 07/22/2024 3:37 PM T [facility] BUN CREATININE RATIO 23.4 6 - 26 07/22/2024 3:37 PM T [facility] A/G RATIO 1.4 1.0 - 2.0 RATIO 07/22/2024 3:37 PM T [facility] GFR ESTIMATE >90 >90 ML/MIN/1.7 3 M2 07/22/2024 3:37 PM T [facility] Comment: NOTE: eGFR is not calculated for patients <18 years of age. This is an estimated GFR calculation using the new CKD EPI creatinine equation without race and so does not require a correction factor for race. This estimated GFR should not be used for calculating drug doses. 07/22/2024 2:15 PM CDT us Mary Ellen Mahmood MD LABORATORY Final Result [facility] [address] [place] [address], [place] [phone] from Last 3 Months Insurance [facility] Advance Directives * DNR (Latest Code Status [...] 11:23 AM 09/07/2023 8:29 PM Care Teams Compensation Coordinator Relationship Specialty Start Date End Date Erika Carreon NP [address] [place] [phone] PCP - General NURSE PRACTITIONER 04/22/24 Tony Mcelroy MD [address] [address] CARDIOVASCULAR DISEASE 04/29/24 Bar Alegria MD [address] [facility] [address] [place] [address] INTERNAL MEDICINE 04/29/24
--- OUTSIDE RECORDS SUMMARY | 2024-07-28 18:57 | XMS_ITS | Continuity of Care Document ---
Author Organization [facility] Address [address] [place] [address], [place] [address] Phone Care Team Providers Care Camp Assistant Name Role Phone Eddie Rodney MD Unavailable Unavailable Advance Directives Directive Yes / No Effective Date File Name No Information Encounters Encounter Description Practice Location Reason(s) For Visit Diagnoses Date Provider Providers Copied on Encounter [facility], [address] [place] [address], [id number], [phone] [facility] No Information Rashaun Morgan. [address] [place], [place], [id number], [place]. tel:[phone] Family History Family Member Type Diagnosis Age At Onset No Information Payers Payer name Insurance type Covered democrat ID Authoriza tion(s) No Information Social History [...]
--- OUTSIDE RECORDS SUMMARY | 2024-07-28 18:57 | XMS_ITS | Encounter Summary ---
Author Organization [facility] Address [facility] [place] [address] Care Team Providers Care Strategic Planning Manager Name Role Phone Malcolm Smart MD Primary Care Provider [phone] Erika Carreon NP Primary Care Provider [phone] Tony Mcelroy MD Unavailable Bar Alegria MD Unavailable [phone] Encounter Details Date Type Department Care Team (Late st Contact Info) Description 2024 Therapy Plan [facility] [address] [place], [place] [phone] Tony Mcelroy MD [address] [address] Social History Tobacco Use Types [...] from your doctor or pharmacy? Never 09/18/[address] [facility] Utilities Answer Date Recorded In the past 12 months has [facility] electric, gas, oil, or water company threatened [...] week 08/13/2023 How often do you attend [facility] or [facility]-day services? 1 to 4 times per year 08/13/2023 Do you belong to any clubs o r organizations such as jew groups, unions, fraternal or athletic groups, or [...] medical care, and heating? Patient declined 10/27/2023 [facility] - [...] place to sleep or slept in a jail (including now)? No 03/29/2023 Housing Stability Vital [...] any time in the past 12 m [facility], were you homeless or living in a jail (including now)? Patient declined 10/27/2023 Sex and [...] Info) Description 07/29/2024 3:00 PM CDT Appointment [facility] [address] [place] [address] Tony Mcelroy MD [address] [place] [address] 08/05/2024 3:00 PM CDT Appointment [facility] Day Services [address] [place] [address] Tony Mcelroy MD [address] [place] [address] 08/12/2024 3:00 PM CDT Appointment [facility] Day Services [address] [place] [address] Tony Mcelroy MD [address] COUNT INCLUDES [facility] [address] [place] [address] 08/19/2024 3:00 PM CDT Appointment [facility] Day Services [address] [place] [address] Tony Mcelroy MD [address] COUNT INCLUDES [facility] [address] [place] [address] 08/26/2024 3:00 PM CDT Appointment [facility] [address] [place] [address] Tony Mcelroy MD [address] COUNT INCLUDES [facility] [address] [place] [address] documented as of this encounter Goals Goal Patient Goal Type Associated Problems Recent Progress Patient-Stated? Author Patient will return to prior living situation and remain independent in ADLs upon discharge from hospital Lifestyle Hiral Chapman RN documented as of this encounter Visit Diagnoses Diagnosis Chronic systolic heart failure ([facility])- Primary Chronic systolic heart failure documented in this encounter Care Teams Strategic Planning Manager Relationship Specialty Start Date End Date Malcolm Smart MD [address] [place] [phone] PCP - General FAMILY PRACTICE 10/26/23 04/21/24 Erika Carreon NP [address] [place] [phone] PCP - General NURSE PRACTITIONER 04/22/24 Tony Mcelroy MD [address] INCLUD[address] [facility] [address] [place] [address] CARDIOVASCULAR DISEASE 04/29/24 Bar Alegria MD [address] [facility] [address] [place] [address] INTERNAL MEDICINE 04/29/24 documented as of this encounter
--- OUTSIDE RECORDS SUMMARY | 2024-07-28 18:57 | XMS_ITS | Referral Summary ---
Author Organization [facility] [address] Address [address] [place] [address] Care Team Providers Care Engraver Steel Plate Name Role Phone Pelon Rodriguez MD Primary Care Provi panda Erich Infante MD Unavailable [phone] Simran Pruett Unavailable Unavailable Encounters Date Type Department Care Team Description 07/27/2024 Telephone [facility] Transplant Heart [address] [facility] [address] Mailstop [phone] [place] [address] Ginette Chavez RN 07/27/2024 9:45 AM CDT Office Visit [facility] Cardiology [address] [facility] Medical Office Building 3 [address] [place] [address] Erich Infante MD Chronic combined systolic and diastolic congestive heart failure (HCC) (Primary Dx) 07/22/2024 Telephone [facility] Transplant Heart [address] [facility] [address] Mailstop [phone] [place] [address] Reena Ames 07/15/2024 Telephone [facility] [address] [facility] [address] [place] [address] Unknown, Notinfile 06/24/2024 Results Follow-Up [facility] Heart and Vascular Center 1 [place] [address] Erich Infante MD 06/24/2024 Telephone [facility] Cardiology [address] [facility] 8th [place] [address] [place] [address] Erich Infante MD 06/23/2024 Telephone [facility] Transplant Heart [address] [facility] [address] Mailstop [phone] [place] [address] Royal Lozada 06/23/2024 Telephone [facility] Transplant Heart [address] [facility] [address] Mailstop [phone] [place] [address] John Teixeira RN 06/23/2024 10:00 AM NATURAL RESOURCES FACULTY MEMBER Office Visit [facility] Cardiology [facility] Office Building 3 [address] [place] [address] Lurdes Chiang NP Chronic systolic heart failure (HCC) (Primary Dx) 06/23/2024 8:30 AM NATURAL RESOURCES FACULTY MEMBER Ancillary Procedure [facility] [place] [address] [place] [address] [address] [place] [address] Chronic combined systolic and diastolic congestive heart failure (HCC) 06/23/2024 Telephone [facility] Cardiology [address] [place] [address] Medical Office Building 3 [address] [place] [address] Lurdes Chiang NP 05/10/2024 Telephone [facility] Primary Care Medicine Clinic [address] [facility] [address] [place] [address] An Kamara NP 05/07/2024 10:52 AM NATURAL RESOURCES FACULTY MEMBER - 05/07/2024 11:06 AM NATURAL RESOURCES FACULTY MEMBER Emergency [facility] Emergency Department [address] [place] [address] Discharge Disposition: Left without being seen 05/07/2024 8:30 AM NATURAL RESOURCES FACULTY MEMBER Office Visit [facility] Cardiology [address] [place] [address] Office Building [address] [place] [address] Erich Infante MD Chronic combined systolic and diastolic congestive heart failure (HCC) (Primary Dx); Chronic back pain, unspecified back location, unspecified back pain laterality; Receiving inotropic medication; Alcoholic cardiomyopathy (HCC); History of alcohol abuse; History of tobacco use; Marijuana use 05/03/2024 Telephone [facility] Cardiology [address] [place] [phone] Tony Mcelroy MD Pic line 04/30/2024 Telephone [facility] Cardiology [address] [place] [phone] Tony Mcelroy MD Med Management; Medication [...] 90 tablet 3 06/23/19 25 025 Discontin u([facility]) Hospital, Clinic, or Other Facility Administered [...] on file Legal Sex Male 9:52 PM NATURAL RESOURCES FACULTY MEMBER Gender Identity Not on file Sexual Orientation Not on file Last Filed Vital Signs Vital Sign Reading Time Taken Comments Blood Pressure 108/70 07/27/2024 9:50 AM CDT Pulse 100 07/27/2024 9:50 AM CDT Temperature - - Respiratory Rate 14 04/16/2024 2:23 PM NATURAL RESOURCES FACULTY MEMBER Oxygen Saturation 98% 07/27/2024 9:50 AM CDT [...] DOPPLER/CF W CONTRAST Routine 06/23/2024 9:34 AM NATURAL RESOURCES FACULTY MEMBER Chronic combined systolic and diastolic congestive heart failure (HCC) ECG 12-LEAD Routine 05/07/2024 8:31 AM NATURAL RESOURCES FACULTY MEMBER Chronic combined systolic and diastolic congestive heart [...] >90 EXTERNAL LAB SCRIBED eGFR in NonAfrican Citizen Of [place] >90 >90 EXTERNAL LAB Blood 07/22/2024 2:15 PM CDT Erich Infante MD LAB BLOOD ORDERABLES Fi nal Result EXTERNAL LAB * B-type natriuretic peptide (06/24/2024) SCRIBED BNP 238 <125 pg/mL [facility] Blood 06/24/2024 us Erich Infante MD LAB BLOOD ORDERABLES Fi nal Result [facility] * (ABNORMAL) Comprehensive metabolic panel (06/24/2024) [facility] SCRIBED Sodium 139 136 - 145 mmol/L [facility] Potassium 3.6 3.5 - 5.1 mmol/L [facility] Chloride 96(A) 100 - 108 mmol/L [facility] Carbon Dioxide 33.3(A) 21 - 32 mmol/L [facility] Anion Gap 9.7 5 - 15 mmol/L [facility] Urea Nitrogen (BUN) 21(A) 7 - 18 mg/dl [facility] Creatinine 0.90 0.7 - 1.3 mg/dl [facility] Glucose 151(A) 70 - 99 mg/dl [facility] Calcium 9.4 8.5 - 10.1 mg/dl [facility] Bilirubin 0.9 0.2 - 1.2 mg/dl [facility] Plasma Protein 6.8 6.4 - 8.2 g/dl [facility] Albumin 4.1 3.4 - 5.0 g/dl [facility] S[facility] Alkaline Phosphatase 76 50 - 136 Units/L [facility] Alanine Transaminase (ALT) 58 16 - 60 Units/L [facility] Aspartate Transaminase (AST) 78(A) 15 - 37 Units/L [facility] SCRIBED eGFR in NonAfrican Citizen Of [place] >90 >90 [facility] Alb/glob ratio 1.5 1.0 - 2.0 [facility] BUN_Creat Ratio 23.3 6 - 26 [facility] Blood 06/24/2024 Erich Infante MD LAB BLOOD ORDERABLES Fi nal Result [facility] * TRANSTHORACIC ECHO (TTE) COMPLETE W DOPPLER/CF W CONTRAST (06/23/2024 9:34 AM NATURAL RESOURCES FACULTY MEMBER) Anatomical Region Laterality Modality Ultrasound 06/23/2024 8:59 AM NATURAL RESOURCES FACULTY MEMBER Narrative 06/23/2024 1:32 PM NATURAL RESOURCES FACULTY MEMBER [facility] Cardiac Diagnostic Lab [address] , [address] [place] [address] Transthoracic Echocardiographic Report Patient Name: SOPHIA HANNA ST : 1990 (34y 2m) Gender: M Study Date: 06/23/2024 08:59:08 AM Ht(Inch): 72 Wt(Lb): 149.91 BSA: 1.86 Ornament Stapler: Joanna Mcfarlane RDCS Location: [facility] Order Provider: ERICH INFANTE Heart Rate: [...] ventricle based on volume index. Previously Signed by:Jcaiel 06/23/2024 1:31:45 PM NATURAL RESOURCES FACULTY MEMBER and Cong Nix M.D. 06/23/2024 1:31:45 PM NATURAL RESOURCES FACULTY MEMBER End of Addendum PROCEDURES: Echocardiographic Report: ([id number], [id number]) Transthoracic complete echo with strain imaging and [...] By: Cong Nix M.D. 06/23/2024 1:31:45 PM NATURAL RESOURCES FACULTY MEMBER Electronically Signed By: Cong Nix M.D. 06/23/2024 1:31:45 PM NATURAL RESOURCES FACULTY MEMBER Electronically Amended By: Cong Nix M.D. 07/20/2024 1:51:15 PM CDT [ADDENDUM] Procedure Note Cong Nix MD - 07/20/2024 [facility] Cardiac Diagnostic Lab [address], [address] [place] [address] Transthoracic Echocardiographic Report Patient Name: SOPHIA HANNA ST : 1990 (34y 2m) Gender: M Study Date: 06/23/2024 08:59:08 AM Ht(Inch): 72 Wt(Lb): 149.91 BSA: 1.86 Ornament Stapler: Joanna Mcfarlane RDCS Location: [facility] Order Provider:ERICH INFANTE Heart Rate: 111 [...] index. Previously Signed by:Jaciel 06/23/2024 1:31:45 PM NATURAL RESOURCES FACULTY MEMBER and Cong Nix M.D. 06/23/2024 1:31:45 PM NATURAL RESOURCES FACULTY MEMBER End of Addendum PROCEDURES: Echocardiographic Report: ([id number], [id number]) Transthoracic complete echo withstrain imaging and contrast, [...] LA Length 2C 5.59 cm MV Decel Bhmg277.26 msec [ 104.00 - 258.00 ] LA [...] By: Cong Nix M.D. 06/23/2024 1:31:45 PM NATURAL RESOURCES FACULTY MEMBER Electronically Signed By: Cong Nix M.D. 06/23/2024 1:31:45 PM NATURAL RESOURCES FACULTY MEMBER Electronically Amended By: Cong Nix M.D. 07/20/2024 1:51:15 PM CDT [ADDENDUM] Erich Infante MD CV ECHO PROCEDURES Edit ed Result - Final * ECG 12 lead (05/07/2024 8:31 AM NATURAL RESOURCES FACULTY MEMBER) Erich Infante MD ECG ORDERABLES Edited Result - Final from Last 3 [place] [address] [place] [address] ANTHEM ACCESS ANTHEM ACCESS Care Teams Engraver Steel Plate Relationship Specialty Start Date End Date Pelon Rodriguez MD [address] [place] [address] [facility] [address] [place] [address] PCP - General Family Medicine 06/23/24 Erich Infante MD [address] [address] Consulting Physician Cardiology 07/26/24 Simran Pruett Primary Epidemiologist 07/26/24
--- OUTSIDE RECORDS SUMMARY | 2024-07-28 18:57 | XMS_ITS | Clinical Summary ---
Author Organization [facility] [address] Address [address] [place] [address] Care Team Providers Care Line Tender Flakeboard Name Role Phone Michael, Pelon Piedra MD Primary Care Provi panda Erich Infante MD Unavailable [phone] Simran Pruett Unavailable Unavailable Allergies Active Allergy [...] Description 07/27/2024 9:45 AM CDT Office Visit [facility] Cardiology [facility] Office Building [address] [place] [address] Erich Infante MD Chronic combined systolic and diastolic congestive heart failure (HCC) (Primary Dx) 07/27/2024 Telephone [facility] and [facility] Transplant Heart 45[address] [facility] [place] [facility] [address] Mailstop [phone] [place] [address] Ginette Chavez RN 07/22/2024 Telephone [facility] and [facility] Transplant Heart [address] [facility] [place] [facility] [address] Mail[address] 07-20-573 [place] [address] Reena Ames 07/15/2024 Telephone [facility] Home Care Services [address] [place] [address] [address] [place] [phone] Unknown, Notinfile 06/24/2024 Results Follow-Up [facility] Heart and Vascular Center 1 [place] [phone] Erich Infante MD 06/24/2024 Telephone [facility] Cardiology [address] [facility] [place] 8th [place] [address] [place] [address] Erich Infante MD 06/23/2024 10:00 AM SCALING MACHINE OPERATOR Office Visit [facility] Cardiology [facility] Office Building [address] [place] [phone] Lurdes Chiang NP Chronic systolic heart failure (HCC) (Primary Dx) 06/23/2024 8:30 AM SCALING MACHINE OPERATOR Ancillary Procedure [facility] [address] [place] [phone] Chronic combined systolic and diastolic congestive heart failure (HCC) 06/23/2024 Telephone [facility] and [facility] Transplant Heart [address] [facility] [address] Mailstop [phone] [place] [address] Royal Lozada 06/23/2024 Telephone [facility] and [facility] Transplant Heart [address] [facility] [address] [id number] [place] [address] John Teixeira RN 06/23/2024 Telephone [facility] Cardiology [facility] Medical Office Building [address] [place] [address] Lurdes Chiang NP 05/10/[address] [facility] Primary Care Medicine Clinic [address] [facility] [address] [place] [address] An Kamara NP 05/07/2024 10:52 AM [facility] - 05/07/2024 11:06 AM [facility] Emergency [facility] Emergency Department [address] [place] [address] Discharge Disposition: Left without being seen 05/07/2024 8:30 AM SCALING MACHINE OPERATOR Office Visit [address] Medical Office Building [address] [place] [phone] Erich Infante MD Chronic combined systolic and diastolic congestive heart failure (HCC) (Primary Dx); Chronic back pain, unspecified back location, unspecified back pain laterality; Receiving inotropic medication; Alcoholic cardiomyopathy (HCC); History of alcohol abuse; History of tobacco use; Marijuana use 05/03/2024 Telephone [facility] Cardiology [address] [place] [address] [place] [phone] Tony Mcelroy MD Pic line 04/30/2024 Telephone [facility] Cardiology [address] [place] [phone] Tony Mcelroy MD Med Management; Medication [...] on file Legal Sex Male 9:52 PM SCALING MACHINE OPERATOR Gender Identity Not on file Sexual Orientation Not on file Obstetrics History Last Filed Vital Signs Vital Sign Reading Time Taken Comments Blood Pressure 108/70 07/27/2024 9:50 AM CDT Pulse 100 07/27/2024 9:50 AM CDT Temperature - - Respiratory Rate 14 04/16/2024 2:23 PM SCALING MACHINE OPERATOR Oxygen Saturation 98% 07/27/2024 9:50 AM CDT [...] DOPPLER/CF W CONTRAST Routine 06/23/2024 9:34 AM SCALING MACHINE OPERATOR Chronic combined systolic and diastolic congestive heart failure (HCC) ECG 12-LEAD Routine 05/07/2024 8:31 AM SCALING MACHINE OPERATOR Chronic combined systolic and diastolic congestive heart [...] >90 EXTERNAL LAB SCRIBED eGFR in NonAfrican Cameroonian >90 >90 EXTERNAL LAB Blood 07/22/2024 2:15 PM CDT Erich Infante MD LAB BLOOD ORDERABLES Fi nal Result EXTERNAL LAB * B-type natriuretic peptide (06/24/2024) SCRIBED BNP 238 <125 pg/mL [facility] Blood 06/24/2024 Erich Infante MD LAB BLOOD ORDERABLES Fi nal Result [facility] * (ABNORMAL) Comprehensive metabolic panel (06/24/2024) SCRIBED Sodium 139 136 - 145 mmol/L [facility] SCRIBED Potassium 3.6 3.5 - 5.1 mmol/L [facility] SCRIBED Chloride 96(A) 100 - 108 mmol/L [facility] SCRIBED Carbon Dioxide 33.3(A) 21 - 32 mmol/L [facility] Anion Gap 9.7 5 - 15 mmol/L [facility] Urea Nitrogen (BUN) 21(A) 7 - 18 mg/dl [facility] Creatinine 0.90 0.7 - 1.3 mg/dl [facility] Glucose 151(A) 70 - 99 mg/dl [facility] Calcium 9.4 8.5 - 10.1 mg/dl [facility] Bilirubin 0.9 0.2 - 1.2 mg/dl [facility] Plasma Protein 6.8 6.4 - 8.2 g/dl [facility] Albumin 4.1 3.4 - 5.0 g/dl [facility] Alkaline Phosphatase 76 50 - 136 Units/L [facility] Alanine Transaminase (ALT) 58 16 - 60 Units/L [facility] Aspartate Transaminase (AST) 78(A) 15 - 37 Units/L [facility] eGFR in NonAfrican Cam[place]onian >90 >90 [facility] Alb/glob ratio 1.5 1.0 - 2.0 [facility] BUN_Creat Ratio 23.3 6 - 26 [facility] Blood 06/24/2024 us Erich Infante MD LAB BLOOD ORDERABLES Fi nal Result [facility] * TRANSTHORACIC ECHO (TTE) COMPLETE W DOPPLER/CF W CONTRAST (06/23/2024 9:34 AM SCALING MACHINE OPERATOR) Anatomical Region Laterality Modality Ultrasound 06/23/2024 8:59 AM SCALING MACHINE OPERATOR Narrative 06/23/2024 1:32 PM SCALING MACHINE OPERATOR [facility] Cardiac Diagnostic Lab [address], [address] [place] [address] Transthoracic Echocardiographic Report Patient Name: SOPHIA HANNA ST : 1990 (34y 2m) Gender: M Study Date: 06/23/2024 08:59:08 AM Ht(Inch): 72 Wt(Lb): 149.91 BSA: 1.86 Hiv Counselor: Joanna Mcfarlane RDCS Location: [facility] Order Provider: ERICH INFANTE [...] index. Previously Signed by:DaydayForPrecious 06/23/2024 1:31:45 PM SCALING MACHINE OPERATOR and Cong Nix M.D. 06/23/2024 1:31:45 PM SCALING MACHINE OPERATOR End of Addendum PROCEDURES: Echocardiographic Report: ([id number], [id number]) Transthoracic complete echo with strain imaging and [...] By: Cong Nix M.D. 06/23/2024 1:31:45 PM SCALING MACHINE OPERATOR Electronically Signed By: Cong Nix M.D. 06/23/2024 1:31:45 PM SCALING MACHINE OPERATOR Electronically Amended By: Cong Nix M.D. 07/20/2024 1:51:15 PM CDT [ADDENDUM] Procedure Note Cong Nix MD - 07/20/2024 [facility] Cardiac Diagnostic Lab [address] [facility], [address] [place] [address] Transthoracic Echocardiographic Report Patient Name: SOPHIA HANNA ST : 1990 (34y 2m) Gender: M Study Date: 06/23/2024 08:59:08 AM Ht(Inch): 72 Wt(Lb): 149.91 BSA: 1.86 Hiv Counselor: Joanna Mcfarlane RDCS Location: [facility] Order Provider:ERICH INFANTE Heart [...] index. Previously Signed by:Jaciel 06/23/2024 1:31:45 PM SCALING MACHINE OPERATOR and Cong Nix M.D. 06/23/2024 1:31:45 PM SCALING MACHINE OPERATOR End of Addendum PROCEDURES: Echocardiographic Report: ([id number], [id number]) Transthoracic complete echo withstrain imaging and contrast, [...] LA Length 2C 5.59 cm MV Decel [id number] msec [ 104.00 - 258.00 ] LA [...] By: Cong Nix M.D. 06/23/2024 1:31:45 PM SCALING MACHINE OPERATOR Electronically Signed By: Cong Nix M.D. 06/23/2024 1:31:45 PM SCALING MACHINE OPERATOR Electronically Amended By: Cong Nix M.D. 07/20/2024 1:51:15 PM CDT [ADDENDUM] Erich Infante MD CV ECHO PROCEDURES Edit ed Result - Final * ECG 12 lead (05/07/2024 8:31 AM SCALING MACHINE OPERATOR) Erich Infante MD ECG ORDERABLES Edited Result - Final from Last 3 Months Insurance [facility] ACCESS ANTHEM ACCESS ANTHEM ACCESS Care Teams Line Tender Flakeboard Relationship Specialty Start Date End Date Pelon Rodriguez MD [address] [place] [address] [address] HUANG B [address] [address] PCP - General Family Medicine 06/23/24 Erich Infante MD [address] [address] Consulting Physician Cardiology 07/26/24 Simran Pruett Primary Sales Contractor 07/26/24
--- OUTSIDE RECORDS SUMMARY | 2024-07-28 18:58 | XMS_ITS | Clinical Summary ---
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 (07/06/2024 11:50 AM BANK VAULT ATTENDANT) Only the most recent of2 resultswithin the time period is included. WBC 4.5 4.0 - 10.7 x10E9/L 07/06/2024 12:11 PM [facility] RBC Count 1.90(L) 4.30 - 5.80 x10E12/L 07/06/2024 12:11 PM [facility] Hemoglobin 6.2(L) 13.3 - 17.5 g/dL 07/06/2024 12:11 PM [facility] Hematocrit 17.4(L) 38.7 - 51.1 % 07/06/2024 12:11 PM [facility] MCV 91.6 80.0 - 98.0 fL 07/06/2024 12:11 PM [facility] MCH 32.6 26.7 - 33.6 pg 07/06/2024 12:11 PM [facility] MCHC 35.6 31.7 - 36.3 g/dL 07/06/2024 12:11 PM [facility] RDW-CV 15.9(H) 11.3 - 14.8 % 07/06/2024 12:11 PM [facility] Platelet Count 141(L) 150 - 420 x10E9/L 07/06/2024 12:11 PM [facility] MPV 9.8 7.8 - 11.4 fL 07/06/2024 12:11 PM [facility] Neutrophil % 59.8 41.0 - 74.0 % 07/06/2024 12:11 PM [facility] Lymphocyte % 26.0 17.0 - 47.0 % 07/06/2024 12:11 PM [facility] Monocyte % 11.6(H) 3.0 - 11.0 % 07/06/2024 12:11 PM [facility] Eosinophil % 1.8 0.0 - 7.0 % 07/06/2024 12:11 PM [facility] Basophil % 0.4 0.0 - 1.6 % 07/06/2024 12:11 PM [facility] Immature Granulocytes % 0.4 0.0 - 1.0 % 07/06/2024 12:11 PM [facility] Neutrophil Absolute 2.67 1.60 - 7.50 x10E9/L 07/06/2024 12:11 PM [facility] Lymphocyte Absolute 1.16 1.00 - 4.40 x10E9/L 07/06/2024 12:11 PM [facility] Monocyte Absolute 0.52 0.15 - 1.00 x10E9/L 07/06/2024 12:11 PM [facility] Eosinophil Absolute 0.08 0.00 - 0.60 x10E9/L 07/06/2024 12:11 PM [facility] Basophil Absolute 0.02 0.00 - 0.13 x10E9/L 07/06/2024 12:11 PM [facility] Blood BLOOD SPECIMEN / Unknown Venipuncture / Unknown 07/06/2024 11:50 AM BANK VAULT ATTENDANT 07/06/2024 12:02 PM [facility] Christiano Graham MD LAB - HEMATOLOG Y ORDERABLES Performing Organization Address City/State/[facility] Co de Phone Number [address] [address], [facility] [phone] * (ABNORMAL) CBC W/O DIFFERENTIAL (07/06/2024 4:32 AM BANK VAULT ATTENDANT) Only the most recent of4 resultswithin the time period is included. WBC 3.4(L) 4.0 - 10.7 x10E9/L 07/06/2024 5:29 AM [facility] RBC Count 1.97(L) 4.30 - 5.80 x10E12/L 07/06/2024 5:29 AM [facility] Hemoglobin 6.3(L) 13.3 - 17.5 g/dL 07/06/2024 5:29 AM [facility] Hematocrit 18.0(L) 38.7 - 51.1 % 07/06/2024 5:29 AM [facility] MCV 91.4 80.0 - 98.0 fL 07/06/2024 5:29 AM [facility] MCH 32.0 26.7 - 33.6 pg 07/06/2024 5:29 AM [facility] MCHC 35.0 31.7 - 36.3 g/dL 07/06/2024 5:29 AM [facility] RDW-CV 15.6(H) 11.3 - 14.8 % 07/06/2024 5:29 AM [facility] Platelet Count 138(L) 150 - 420 x10E9/L 07/06/2024 5:29 AM [facility] MPV 9.6 7.8 - 11.4 fL 07/06/2024 5:29 AM [facility] Blood BLOOD SPECIMEN / Unknown Venipuncture / Unknown 07/06/2024 4:32 AM BANK VAULT ATTENDANT 07/06/2024 5:23 AM BANK VAULT ATTENDANT Jamel Cavazos MD LAB - HEMATOLOGY ORD ERABLES [address] [address], [place] [phone] * (ABNORMAL) PHOSPHORUS BLOOD (07/06/2024 4:32 AM BANK VAULT ATTENDANT) Only the most recent of3 resultswithin the time period is included. Phosphorus 6.1(H) 2.8 - 5.1 mg/dL 07/06/2024 5:50 AM [facility] Blood BLOOD SPECIMEN / Unknown Venipuncture / Unknown 07/06/2024 4:32 AM BANK VAULT ATTENDANT 07/06/2024 5:23 AM BANK VAULT ATTENDANT Jamel Cavazos MD LAB - CHEMISTRY ORDE RABCRYSTAL [address] [address], [place] [phone] * MAGNESIUM BLOOD (07/06/2024 4:32 AM BANK VAULT ATTENDANT) Only the most recent of5 resultswithin the time period is included. [facility] Magnesium 2.1 1.6 - 2.6 mg/dL 07/06/2024 5:50 AM BANK VAULT ATTENDANT [facility] Blood BLOOD SPECIMEN / Unknown Venipuncture / Unknown 07/06/2024 4:32 AM BANK VAULT ATTENDANT 07/06/2024 5:23 AM BANK VAULT ATTENDANT Jamel Cavazos MD LAB - CHEMISTRY SHREYA BOJORQUEZ Performing Organization Address [facility] Co de Phone Number [facility] [address] [place] [address], [facility] [phone] * C-PEPTIDE (07/05/2024 1:52 PM BANK VAULT ATTENDANT) [facility] C-Peptide 1.8 0.5 - 3.3 ng/mL 07/07/2024 1:34 AM BANK VAULT ATTENDANT [employer] ([facility]) Comment: INTERPRETIVE INFORMATION: Serum, C-Peptide Reference Interval applies to fasting specimens. To convert to nmol/L, multiply by 0.33 Performed By: [employer] [address] [place] [address] Oil Deliverer: Hamilton Martinez MD, PhD CLIA Number: [id number] Blood BLOOD SPECIMEN / Unknown Venipuncture / Unknown 07/05/2024 1:52 PM BANK VAULT ATTENDANT 07/05/2024 1:57 PM BANK VAULT ATTENDANT Jamel Cavazos MD LAB - CHEMISTRY SHREYA BOJORQUEZ Performing Organization Address [facility] de Phone Number [facility]) [address] * (ABNORMAL) HEMOGLOBIN A1C (07/05/2024 1:52 PM BANK VAULT ATTENDANT) [facility] Hemoglobin A1c 6.0(H) <=5.6 % 07/05/2024 4:19 PM [facility] Estimated Average Glucose 126 mg/dL 07/05/2024 4:19 PM [facility] Comment: HbA1c Interpretation: Normal : < 5.7% Pre-diabetes: 5.7-6.4% Diabetes: Equal to or greater than 6.5% Test results diagnostic of diabetes should be repeated for confirmation. Treatment target values recommended by ADA and other clinical organizations should be used to evaluate metabolic control in patients. Reference: [place] [employer], Standards of Care in Diabetes -2020 In patients 70 years and older consider HbA1c target range of 7.0-7.5% (Reference: Ruddy Koenig et al. MAIDADA. 2012) The Sebia assay for the measurement of HbA1c is a National Glycohemoglobin Standardization Program (NGSP) certified method. Blood BLOOD SPECIMEN / Unknown Venipuncture / Unknown 07/05/2024 1:52 PM BANK VAULT ATTENDANT 07/05/2024 1:59 PM BANK VAULT ATTENDANT Jamel Cavazos MD LAB - CHEMISTRY SHREYA BOJORQUEZ Performing Organization Address City/[facility]/ZIP Co de Phone Number [address] [address], [place] [phone] * LIPASE BLOOD (07/05/2024 1:52 PM BANK VAULT ATTENDANT) Only the most recent of2 resultswithin the time period is included. Lipase 9 8 - 78 U/L 07/05/2024 2:26 PM BANK VAULT ATTENDANT [facility] Blood BLOOD SPECIMEN / Unknown Venipuncture / Unknown 07/05/2024 1:52 PM BANK VAULT ATTENDANT 07/05/2024 1:59 PM BANK VAULT ATTENDANT Narrative [facility] - 07/05/2024 2:26 PM BANK VAULT ATTENDANT Lipase results from the [employer] Alinity analyzer may not be comparable with other methodologies. Jamel Cavazos MD LAB - CHEMISTRY SHREYA BOJORQUEZ Performing Organization Address City/[facility]/ZIP Co de Phone Number [address] [address], [place] [phone] * XR Chest 1Vw Portable (07/05/2024 9:52 AM BANK VAULT ATTENDANT) Only the most recent of2 resultswithin the time period is included. Anatomical Region Laterality Modality Chest Digital Radiogra phy 07/05/2024 3:07 PM BANK VAULT ATTENDANT Narrative 07/05/2024 9:03 PM BANK VAULT ATTENDANT PROCEDURE: XR CHEST 1VW PORTABLE, DATE/TIME OF EXAM: 07/05/2024 10:05 AM, LOCATION [facility] INDICATION: K85.00: Idiopathic acute pancreatitis, unspecified [...] is normal. > Dictated by GIFTY Downey (residential field manager). Ronal Albright MD have personally reviewed and interpreted this examination/study. > Interpreting Provider: Ronal Spencer MD on 07/05/2024 9:03 PM Procedure Note Ronal Spencer MD - 07/05/2024 PROCEDURE: XR CHEST 1VW PORTABLE, DATE/TIME OF EXAM: 07/05/2024 10:05AM, LOCATION [facility] INDICATION: K85.00: Idiopathic acute pancreatitis, unspecified [...] is normal. > Dictated by GIFTY Downey (residential field manager). Ronal Albright MD have personally reviewed and interpreted this examination/study. > Interpreting Provider: Ronal Spencer MD on 07/05/2024 9:03 PM Jamel Cavazos MD DIAGNOSTIC IMAGING O RDERABLES * EKG 12-LEAD (07/05/2024 8:40 AM BANK VAULT ATTENDANT) Only the most recent of5 resultswithin the time period is included. Ventricular Rate 101 BPM [facility]USE Atrial Rate 101 BPM [facility] MUSE P-R Interval 146 ms [facility] MUSE QRS Duration ms 88 ms [facility] MUSE Q-T Interval ms 326 ms [facility] QTC Calculation (Bezet) 422 ms [facility] Calculated P Fraser 32 degrees [facility] Calculated R Fraser 83 degrees [facility] Calculated T Fraser 32 degrees [facility] Interpretation EKG SINUS TACHYCARDIA LOW VOLTAGE QRS SEPTAL INFARCT , AGE UNDETERMINED T WAVE ABNORMALITY, CONSIDER ANTEROLATERAL ISCHEMIA ABNORMAL ECG WHEN COMPARED WITH ECG OF 01-JUL-2024 03:16, NO SIGNIFICANT CHANGE WAS FOUND Confirmed by MD STEFF, GLORIA ([id number]) on 07/05/2024 12:50:27 PM [facility] MUSE 07/05/2024 8:40 AM BANK VAULT ATTENDANT 07/05/2024 12:50 PM BANK VAULT ATTENDANT Jamel Cavazos MD ECG ORDERABLES [facility] MUSE * XR Abdomen Kub Portable (07/02/2024 8:41 AM BANK VAULT ATTENDANT) Only the most recent of2 resultswithin the time period is included. Anatomical Region Laterality Modality Abdomen Digital Radiogra phy 07/02/2024 2:55 PM BANK VAULT ATTENDANT Narrative 07/03/2024 12:53 AM BANK VAULT ATTENDANT PROCEDURE: XR ABDOMEN KUB PORTABLE, DATE/TIME OF EXAM: 07/02/2024 8:41 AM, LOCATION [facility] INDICATION: K56.7: Ileus (HCC) ADDITIONAL CLINICAL INFORMATION: Ordering Provider Reason For Exam: ileus Technologist Note: Additional: COMPARISON: Abdomen x-ray 07/01/2024. TECHNIQUE: Supine frontal radiograph of the abdomen. FINDINGS/ IMPRESSION: Multiple mildly dilated loops of small and large bowel located centrally may represent ileus. No evidence of free air on this supine exam. > Dictated by Juana Esquivel MD, (residential field manager). I, Ronal Spencer MD have personally reviewed and interpreted this examination/study. > Interpreting Provider: Ronal Spencer MD on 07/03/2024 12:53 AM Procedure Note Ronal Spencer MD - 07/03/2024 PROCEDURE: XR ABDOMEN KUB PORTABLE, DATE/TIME OF EXAM: 07/02/2024 8:41AM, LOCATION [facility] INDICATION: K56.7: Ileus (HCC) ADDITIONAL CLINICAL INFORMATION: Ordering Provider Reason For Exam: ileus Technologist Note: Additional: COMPARISON: Abdomen x-ray 07/01/2024. TECHNIQUE: Supine frontal radiograph of the abdomen. FINDINGS/ IMPRESSION: Multiple mildly dilated loops of small and large bowel located centrally may represent ileus. No evidence of free air on this supine exam. > Dictated by Juana Esquivel MD, (residential field manager). I, Ronal Spencer MD have personally reviewed and interpreted this examination/study. > Interpreting Provider: Ronal Spencer MD on 07/03/2024 12:53 AM Jamel Cavazos MD DIAGNOSTIC IMAGING O RDERABLES * (ABNORMAL) BASIC METABOLIC PANEL (CALCIUM TOTAL) (07/01/2024 4:22 AM [facility]) BUN 31(H) 7 - 26 mg/dL 07/01/2024 5:19 AM [facility] Creatinine 0.75 0.71 - 1.16 mg/dL 07/01/2024 5:19 AM [facility] Sodium 128(L) 136 - 145 mmol/L 07/01/2024 5:19 AM [facility] Potassium 3.9 3.5 - 4.5 mmol/L 07/01/2024 5:19 AM [facility] Chloride 88(L) 98 - 107 mmol/L 07/01/2024 5:19 AM [facility] CO2 24 22 - 29 mmol/L 07/01/2024 5:19 AM [facility] Glucose 136(H) 70 - 99 mg/dL 07/01/2024 5:19 AM [facility] Calcium 10.0 8.4 - 10.2 mg/dL 07/01/2024 5:19 AM [facility] Anion Gap 16 6 - 16 07/01/2024 5:19 AM [facility] BUN/Creatinine Ratio 41(H) 7 - 23 07/01/2024 5:19 AM [facility] Osmolality Calculated 275 275 - 295 mOsm/kg 07/01/2024 5:19 AM [facility] eGFR by CKD-EPI >90 >=90 mL/min/1.7 3 m2 07/01/2024 5:19 AM [facility] Blood BLOOD SPECIMEN / Unknown Lab Venipuncture / Unknown 07/01/2024 4:22 AM BANK VAULT ATTENDANT 07/01/2024 4:46 AM BANK VAULT ATTENDANT Que Chow MD LAB - CHEMISTRY ORDJoshua BOJORQUEZ Performing Organization Address City/[facility]/ZIP Co de Phone Number [facility] [address] [place] [address], [facility] [phone] * (ABNORMAL) HEPATIC FUNCTION PANEL (07/01/2024 4:22 AM BANK VAULT ATTENDANT) Pathologist [facility] Protein Total 7.7 6.0 - 8.3 g/dL 025 9:46 AM [facility] Albumin 4.9 3.4 - 5.0 g/dL 07/01/2024 9:46 AM [facility] Bilirubin Total 1.0 0.2 - 1.2 mg/dL 06/06 9:46 AM [facility] Bilirubin Conjugated 0.3 0.1 - 0.5 mg/dL 07/01/2024 9:46 AM [facility] Bilirubin Unconjugated 0.7 Unconjugated Bilirubin is a calculated value: Reference ranges have not been established. mg/dL 07/01/2024 9:46 AM [facility] Alkaline Phosphatase 76 40 - 150 U/L 07/01/2024 9:46 AM [facility] ALT 91(H) 5 - 55 U/L 07/01/2024 9:46 AM [facility] AST 111(H) 5 - 34 U/L 07/01/2024 9:46 AM [facility] Albumin/Globulin Ratio 1.8 1.1 - 2.3 07/01/2024 9:46 AM [facility] Blood BLOOD SPECIMEN / Unknown Lab Venipuncture / Unknown 07/01/2024 4:22 AM BANK VAULT ATTENDANT 07/01/2024 4:46 AM BANK VAULT ATTENDANT Jamel Cavazos MD LAB - CHEMISTRY SHREYA BOJORQUEZ [facility] [address] [place] [phone] [phone] * CT ABDOMEN PELVIS W CONTRAST (06/30/2024 5:02 PM BANK VAULT ATTENDANT) Anatomical Region Laterality Modality Abdomen, Pelvis Computed Tomogra phy 06/30/2024 5:08 PM BANK VAULT ATTENDANT Impressions 06/30/2024 10:01 PM BANK VAULT ATTENDANT Impression: 1.Pancreatic atrophy with mild adjacent fat [...] 06/30/2024 10:01 PM Narrative 06/30/2024 10:01 PM BANK VAULT ATTENDANT Procedure Information DATE: 06/30/2024 5:02 PM EXAMINATION: [...] HIGH SENSITIVE REFLEX 1HOUR (06/30/2024 3:57 PM BANK VAULT ATTENDANT) [facility] Troponin I High Sensitive 71(H) <=35 ng/L 06/30/2024 4:42 PM BANK VAULT ATTENDANT [facility] Delta Troponin I HS 4 <6 ng/L 06/30/2024 4:42 PM [facility] Blood BLOOD SPECIMEN / Unknown Venipuncture / Unknown 06/30/2024 3:57 PM BANK VAULT ATTENDANT 06/30/2024 4:06 PM BANK VAULT ATTENDANT Daryl Julian MD LAB - CHEMISTRY OR DERABLES Performing Organization Address [facility]/State/ZIP Co de Phone Number [facility] [address] [place] [address], [facility] [phone] * (ABNORMAL) URINALYSIS REFLEX TO MICROSCOPIC NO CULTURE (06/30/2024 2:52 PM BANK VAULT ATTENDANT) Color UA Yellow Yellow, Straw 06/30/2024 4:00 PM [facility] Clarity UA Clear Clear 06/30/2024 4:00 PM [facility] Glucose UA 4+(A) Normal 06/30/2024 4:00 PM [facility] Bilirubin UA 1+(A) Negative 06/30/2024 4:00 PM [facility] Ketone UA 4+(A) Negative 06/30/2024 4:00 PM [facility] Specific [place] UA 1.027 1.005 - 1.030 06/30/2024 4:00 PM [facility] Blood UA 2+(A) Negative 06/30/2024 4:00 PM [facility] pH UA 5.5 5.0 - 9.0 pH 06/30/2024 4:00 PM [facility] Protein UA 2+(A) Negative 06/30/2024 4:00 PM [facility] Urobilinogen UA 4.0(A) Normal mg/dL 025 4:00 PM [facility] Nitrite UA Negative Negative 06/30/2024 4:00 PM [facility] Leukocyte UA Negative Negative 06/30/2024 4:00 PM [facility] RBC UA 3-5 0 - 5 # /hpf 06/30/2024 4:00 PM [facility] WBC UA 0-5 0 - 5 # /hpf 06/30/2024 4:00 PM [facility] Bacteria UA None Seen None Seen 06/30/2024 4:00 PM [facility] Squamous Epithelial Cells 0-2 0 - 5 /hpf 06/30/2024 4:00 PM [facility] Mucus UA 2+ /LPF 06/30/2024 4:00 PM [facility] Urine URINE SPECIMEN OBTAINED BY CLEAN CATCH PROCEDURE / Unknown Collection / Unknown 06/30/2024 2:52 PM BANK VAULT ATTENDANT 06/30/2024 2:58 PM [facility] Daryl Julain MD LAB - URINALYSIS O RDERABLES [facility] [address] [place] [phone], [facility] [phone] * (ABNORMAL) URINE DRUG SCREEN IMMUNOASSAY (06/30/2024 2:52 PM BANK VAULT ATTENDANT) Pathologist [facility] Amphetamines Screen Urine Negative Negative : < 1000 ng/mL 06/30/2024 3:23 PM [facility] Barbiturates Screen Urine Negative Negative : < 200 ng/mL 06/30/2024 3:23 PM [facility] Benzodiazepine Screen Urine Negative Negative : < 200 ng/mL 06/30/2024 3:23 PM [facility] Opiates Urine Positive(A) Negative : < 300 ng/mL 06/30/2024 3:23 PM [facility] Comment:Positive urine opiat e screening results should be confirmed by another generally accepted non-immunological method such as gas chromatography or mass spectrometry. Cocaine Metabolites Urine Negative Negative : < 300 ng/mL 06/30/2024 3:23 PM [facility] Phencyclidine Screen Urine Negative Negative : < 25 ng/ml 06/30/2024 3:23 PM [facility] Cannabinoids Screen Urine Negative Negative : <50 ng/mL 06/30/2024 3:23 PM [facility] Methadone Screen Urine Negative Negative : < 300 ng/mL 06/30/2024 3:23 PM [facility] Fentanyl Screen Urine Positive(A) Negative : <1.5 ng/mL 06/30/2024 3:23 PM [facility] Comment:Positive urine fenta nyl screening results should be confirmed by another generally accepted non-immunological method such as gas chromatography or mass spectrometry. Urine URINE / Unknown Collection / Unknown 06/30/2024 2:52 PM [facility] 06/30/2024 2:58 PM [facility] - 06/30/2024 3:23 PM [facility] The Urine Toxicology Screening Panel does not screen for Propoxyphene, Meprobamate, Carisoprodol, Trazodone, seso-aru-qebnltn medications and/or volatiles (Acetone, Isopropanol, Methanol or Ethylene Glycol). Ethanol, Salicylate, Acetaminophen, Tricyclic Antidepressants and several therapeutic drugs may be individually assayed in serum or plasma specimen. Toxicology testing by the [facility] is an aid to medical diagnosis and treatment of patients. No documented chain of custody was maintained. Results are intended to be used for clinical purposes only. Daryl Julian MD LAB - URINE CHEMIS TRY ORDERABLES [facility] [address] [place] [address], [facility] [phone] * PT-INR [facility] (06/30/2024 2:48 PM BANK VAULT ATTENDANT) [facility] PT 12.7 12.1 - 14.8 Seconds 06/30/2024 3:20 PM BANK VAULT ATTENDANT [facility] INR 1.0 See Comment 06/30/2024 3:20 PM BANK VAULT ATTENDANT [facility] Comment:The suggested therap eutic range for standard coumadin (warfarin) therapy is an INR of 2.0-3.0. For high-risk patients (Mechanical Mitral Valve Prosthesis, etc.), the suggested prophylactic therapeutic range is an INR of 2.5-3.5. Blood BLOOD SPECIMEN / Unknown Venipuncture / Unknown 06/30/2024 2:48 PM BANK VAULT ATTENDANT 06/30/2024 2:52 PM BANK VAULT ATTENDANT Daryl Julian MD LAB - COAGULATION ORDERABLES Performing Organization Address City/[facility]/ZIP Co de Phone Number [address] [address], [facility] [phone] * LACTIC ACID BLOOD REFLEX TO REPEAT (06/30/2024 2:48 PM BANK VAULT ATTENDANT) [facility] Lactic Acid-Stat 1.3 <=2.0 mmol/L 06/30/2024 3:23 PM BANK VAULT ATTENDANT [facility] Blood BLOOD SPECIMEN / Unknown Venipuncture / Unknown 06/30/2024 2:48 PM BANK VAULT ATTENDANT 06/30/2024 2:52 PM BANK VAULT ATTENDANT Daryl Julian MD LAB - CHEMISTRY OR DERABLES [address] [address], [facility] [phone] * (ABNORMAL) TROPONIN-I HIGH SENSITIVE BASELINE + 1HR (06/30/2024 2:48 PM BANK VAULT ATTENDANT) [facility] Troponin I High Sensitive 67(H) <=35 ng/L 06/30/2024 3:32 PM BANK VAULT ATTENDANT [facility] Blood BLOOD SPECIMEN / Unknown Venipuncture / Unknown 06/30/2024 2:48 PM BANK VAULT ATTENDANT 06/30/2024 2:54 PM BANK VAULT ATTENDANT Daryl Julian MD LAB - CHEMISTRY OR DERABLES Performing Organization Address [facility]/ZIP Co de Phone Number [facility] [address] [place] [phone], [facility] [phone] * B-TYPE NATRIURETIC PEPTIDE (06/30/2024 2:48 PM BANK VAULT ATTENDANT) BNP 38 <100 pg/mL 06/30/2024 3:30 PM [facility] Comment: A decision threshold of 100 pg/mL [...] Unknown Venipuncture / Unknown 06/30/2024 2:48 PM [employer] ATTENDANT 06/30/2024 2:54 PM [employer] ATTENDANT Daryl Julian MD LAB - CHEMISTRY OR DERABLES Performing Organization Address [facility] Co de Phone Number [facility] [address] [place] [address], [facility] [phone] * ALCOHOL ETHYL BLOOD (06/30/2024 2:48 PM [employer] ATTENDANT) Ethanol (mg/dL) <10 <10 mg/dL 3:28 PM [facility] Ethanol Calculated (g/dL) <0.010 <=0.010 g/dL 06/30/2024 3:28 PM [facility] Blood BLOOD SPECIMEN / Unknown Venipuncture / Unknown 06/30/2024 2:48 PM [employer] ATTENDANT 06/30/2024 2:54 PM [employer] ATTENDANT Narrative [facility] - 06/30/2024 3:28 PM B[employer] VA[employer] ATTENDANT Ethanol Interp <10: None Detected. Depression of NAIL MAKING MACHINE SETTER: >100 mg/dl Potentially Critical: >250 mg/dl Potentially Fatal >400 mg/dl Ethanol in the patient's blood will contribute to the osmolar gap. Ethanol's contribution to the osmolar gap can be estimated by dividing the concentration of ethanol in mg/dL by 4.6. This test is for clinical use only and does not equal a HALLIE for legal purposes. Daryl Julian MD LAB - CHEMISTRY OR DERABLES [facility] [address] [place] [id number], [place] [phone] * HIV-1 HIV-2 ANTIBODY + HIV P24 AG PANEL (02/03/2024 8:26 PM CDT) HIV Antigen/Antibod y 1 & 2 Non-reacti ve Non-react judy 02/03/2024 9:49 PM CDT [facility] Comment:No Laboratory eviden ce of HIV infection. Blood BLOOD SPECIMEN / Unknown Line Draw / Unknown 02/03/2024 8:26 PM CDT 02/03/2024 8:36 PM CDT Aminata Marlow PA-C LAB - CHEMISTRY SHREYA BOJORQUEZ Performing Organization Address City/[facility]/ZIP Co de Phone Number [facility] [address] [place] [phone], [place] [phone] from Last 3 Months or Most Recently [...] 5:17 PM 02/14/2024 11:35 AM Care Teams Senior Human Resources Representative Relationship Specialty Start Date End Date An Kamara APRN-TYRONE [address] [place] [id number] PCP - General Nurse Practitioner Family 02/16/24
[2024-07-28 19:21] LABS: Ethanol 397 mg/dL (<10)
--- NOTE | 2024-07-28 19:34 | ED.CHESTPAIN ---
HPI - Chest Pain General Chief Complaint: Chest Pain Stated Complaint: +ETOH, Cardiac issues-on hospice, can't walk Time Seen by Provider: 07/28/24 18:18 Source: patient Limitations: no limitations History of Present Illness HPI narrative: 34-year-old with a history of alcoholism, alcohol-related dilated cardiomyopathy here with the complaints of marked weakness which is been ongoing for last several days and having chest pain since this afternoon he denies any shortness of breath. No history of fever or chills. He states he had vodka earlier this morning. Patient states that he follow with Dr. Mahmood at [facility] and Dr Mcelroy . Pt istates painis constant innature, he denies any falls, no SOB , has is on Milrinone drip. MD complaint: chest pain Pertinent past history: other (Dilated cardio) Onset (ago): day(s) (1) Timing of current episode: constant Prior episodes: Yes Pain location: left chest Pain radiation: none Severity: moderate Quality: aching Relieving factors: nothing Exacerbating factors: nothing Associated symptoms: other (Weakness) Treatment prior to arrival: none Risk Factors Coronary artery disease risk factors: none Related Data Home Medications ?Medication ?Instructions ?Recorded ?Confirmed ?Last Taken ?Type clonazepam 1 mg tablet 1 mg PO BID PRN Anxiety 01/30/24 01/30/24 Unknown History Allergies Allergy/AdvReac Type Severity Reaction Status Date / Time Sulfa (Sulfonamide Allergy Unknown Unknown Verified 07/28/24 17:07 Antibiotics) sulfamethoxazole Allergy Unknown Unknown Verified 07/28/24 17:07 trimethoprim Allergy Unknown Unknown Verified 07/28/24 17:07 Review of Systems Review of Systems: All systems reviewed & are unremarkable except as noted in HPI and below Constitutional: Constitutional: Reports no additional constitutional complaints Eyes: Eyes: Reports no additional eye complaints ENT: Reports system reviewed and no additional complaints, except as documented Cardiovascular: Cardiovascular: Reports no additional cardiovascular complaints Respiratory: Respiratory: Reports no additional respiratory complaints Gastrointestinal: Gastrointestinal: Reports no additional gastrointestinal complaints Musculoskeletal: Musculoskeletal: Reports no additional musculoskeletal complaints Integumentary/Breasts: Skin/Breast: Reports system reviewed and no additional complaints, except as docu Neurologic: Reports system reviewed and no additional complaints, except as documented Psychiatric: Psychiatric: Reports no additional psychiatric complaints Endocrine: Endocrine: Reports no additional endocrine complaints Hematologic/Lymphatic: Hematologic/Lymphatic: Reports no additional hematologic/lymphatic complaints REPLACED BY [facility] Past Medical History Medical History Anxiety Hepatic steatosis Alcoholism Pancreatitis hx of necrotizing pancreatitis November 2023 Hx of pseudocyst that was drained Surgical History Surgical History History of ankle surgery Family History Family History Father Heart disease Hypertension Social History Social History Social History: Smokes 1ppd x16 years. Alcohol use as above. Drug use hx as above Full code Surrogate decision maker - mother Smoking packs per day: 1 Smoking cigarettes per day: 20.0 Smoking status: Current every day smoker Tobacco type: cigarettes Alcohol intake: current Substance use: never Do You Feel Safe in your Home?: Yes Lack of Transportation: No Lack of Food: Never True Current Housing: I Have Housing Concerned About Future Housing: No Difficulty Paying Gas/Electric Bills: No Difficulty Paying for Meds: No Currently Unemployed: No Education: Associate Degree Difficulty w/ Childcare or Family Care: No Spiritual care concerns: No Exam Narrative: GENERAL: ill-appearing, in toxic, and in no acute distress. HEAD: Normocephalic, atraumatic. EYES: PERRLA and EOMI. ENT: Nares clear, no rhinorrhea or epistaxis. Mucous membranes moist. Strong smell of alcohol NECK: Supple. CHEST: Clear to auscultation. No respiratory distress. HEART: Regular rate and rhythm. No murmur heard. Normal peripheral pulses. ABDOMEN: Soft, nontender, nondistended, normal active bowel sounds. EXTREMITIES: Normal range of motion. No edema. SKIN: Warm, dry, no rash. NEURO: No focal deficits. Alert and oriented x3. PSYCH: Normal mood and affect. Course Course Emergency Course: Patient comfortably resting in no distress. Notified him about his lab work. I discussed with Dr. Waller recommended admission for observation. Also discussed with hospitalist accepted the patient on chart review patient has elevated troponins on the time. However his alcohol is 386 will admit him for alcohol intoxication. Vital Signs Vital signs: Vital Signs Temperature 37.3 C 07/28/24 17:17 Pulse Rate 130 H 07/28/24 17:17 Respiratory Rate 16 07/28/24 17:17 Blood Pressure 113/86 07/28/24 17:17 Pulse Oximetry 97 07/28/24 17:17 Oxygen Delivery Room Air 07/28/24 17:17 Temperature 37.3 C 07/28/24 17:17 Pulse Rate 113 H 07/28/24 19:14 Respiratory Rate 19 07/28/24 19:14 Blood Pressure 108/83 07/28/24 19:14 Pulse Oximetry 99 07/28/24 19:14 Oxygen Delivery Room Air 07/28/24 17:17 MDM - Chest Pain Differential Diagnosis Differential diagnosis: Likely stable angina, unstable angina pectoris and atypical chest pain Medical Records Data Attestation: I reviewed the patient's medical records. Lab Data Attestation: I reviewed the patient's lab results. 07/28/24 17:30 07/28/24 17:30 Labs: Lab Results 07/28/24 Range/Units 17:30 WBC 9.8 (4.5-10.0) K/mm3 RBC 4.26 L (4.6-6.20) M/mm3 Hgb 12.8 L (14.0-18.0) g/dL Hct 39.3 L (42.0-52.0) % MCV 92.3 (80-100) fl MCH 30.0 (26-34) pg MCHC 32.6 (32-36) g/dl RDW 15.5 H (11.5-14.5) % Plt Count 388 H D (150-375) k/mm3 MPV 8.6 (7.4-10.4) fl Immature Gran % (Auto) 0.4 (0-0.5) % Neut % (Auto) 52.1 (45.5-73.1) % Lymph % (Auto) 33.9 (18.3-44.2) % Pettis % (Auto) 12.6 H (2.6-8.5) % Eos % (Auto) 0.4 (0-4.4) % Baso % (Auto) 0.6 (0.2-1.2) % Lymph # (Auto) 3.33 H (0.9-3.2) K/mm3 Pettis # (Auto) 1.2 H (0.1-0.6) K/mm3 Eos # (Auto) 0.0 (0-0.3) K/mm3 Baso # (Auto) 0.1 (0.0-0.1) K/mm3 Abs Immat Gran (auto) 0.04 H (0.00-0.031) K/mm3 Absolute Neuts (auto) 5.1 (1.3-6.7) K/mm3 Absolute Nucleated RBC 0.000 (0.0-0.012) K/mm3 Nucleated RBC % 0.0 (0.0-0.2) % PT 12.0 (11.1-14.7) Seconds INR 0.8 APTT 30.5 (22.3-36.8) Seconds Sodium 143 (137-145) mmol/L Potassium 3.7 (3.4-5.0) mmol/L Chloride 95 L (98-107) mmol/L Carbon Dioxide 22 (22-30) mmol/L Anion Gap 26 H (4-12) mmol/L BUN 16 D (9-20) mg/dL Creatinine 0.92 (0.7-1.3) mg/dL Estim Creat Clear Calc 88 ml/min Estimated GFR > 60 (59 - ) Glucose 113 H (65-110) mg/dL Calcium 9.1 (8.4-10.2) mg/dL Total Bilirubin 0.5 (0.2-1.3) mg/dL AST 63 H (17-59) U/L ALT 38 (6-50) U/L Alkaline Phosphatase 80 (38-126) U/L Troponin I 0.051 H* (0.000-0.034) ng/mL Total Protein 8.0 (6.3-8.2) g/dL Albumin 5.3 H (3.5-5.1) g/dL Lipase 23 (23-300) U/L Ethyl Alcohol 397 H* (<10) mg/dL ECG Data EKG #1: ECG completion date: 07/28/24 ECG completion time: 17:24 EKG Interpretation: tachycardia (126), no ST changes, normal QT and no acute changes EKG #2: ECG completion date: 07/28/24 ECG completion time: 20:09 EKG Interpretation: tachycardia (118), no ectopy, normal QT, NL axis and no acute changes Discharge Plan Discharge Clinical Impression: Alcoholism Chest pain Qualifiers: Chest pain type: unspecified Qualified Code(s): R07.9 - Chest pain, unspecified Patient Disposition: Still a Patient Condition: Stable Patient Language: Nepali Prescriptions: No Action clonazepam 1 mg tablet 1 mg PO BID PRN (Reason: Anxiety) Follow-up/Referrals: Lauri,Erika Nam APRN [Primary Care Provider] - Time of Disposition: 19:47
[2024-07-28] MEDS: ONDANSETRON INJ 4 MG/2 ML VIAL IV PUSH (19:52)
--- NOTE | 2024-07-28 19:57 | P.HP_ITS ---
H&P: HPI History of Present Illness Date/Time: 07/28/24 19:57 Chief Complaint: Chest pain Narrative: This is a 34 year old male with a significant past medical history of alcohol related dilated cardiomyopathy, tobacco abuse who presented to the hospital with complaints of chest pain for the past several days with associated shortness of breath. Patient reports the following history of presenting illness. He states that he was diagnosed with dilated cardiomyopathy due to alcoholism back in January of last year which he initially presented to our hospital in cardiogenic shock. He was in the intensive care unit on dopamine and Levophed for pressor support as well as intubated. He was transported to [facility] cardiac ICU where he was placed on Impella and ECMO. He originally left there on hospice. Back in April he decided that he did not want hospice anymore revoked their care and was seeking cardiology consult for potential heart transplant. He sees Dr. Mahmood who placed him on a Milrinone infusion and they have slowly been weaning him down. He states his last ejection fraction was 39%. He recently decided to leave his mother and father's house and move into his own place which has added additional stress on to him. He states he was not taking his medication as it was still packed in boxes. He then admitted to drinking 750 mL of vodka today due to the increased stress. He reports prior to that he has not had any alcohol since the original diagnosis back in January. He then started experiencing chest pain, got scared, and decided to present to the hospital for further evaluation. He denies any fever, chills, nausea, vomiting, diarrhea, abdominal pain, shortness a breath. He also states that he has had chronic pain in bilateral lower extremities ever since being on the ECMO. He states that he almost lost both of his feet back in January of last year due to limited blood flow to his feet. Since that time, he has had this hypersensitivity to his lower extremities which he describes as a constant throbbing and burning pain. Ever since he revoked his hospice he has only been on Wellington which barely helps with the pain, they cancelled all the rest of his pain regimen. He states he has tried Lyrica and Neurontin without any relief in his symptoms. Review of Systems Review of Systems: All systems reviewed & are unremarkable except as noted in HPI and below PMFSH Past Medical History Medical History (Updated 07/29/24 @ 00:00 by Pura Monroy APRN) Insomnia Peripheral neuropathy Dilated cardiomyopathy secondary to alcohol Anxiety Hepatic steatosis Alcoholism Pancreatitis hx of necrotizing pancreatitis November 2023 Hx of pseudocyst that was drained Surgical History Surgical History History of ankle surgery Family History Family History Father Heart disease Hypertension Social History Social History Social History: Smokes 1ppd x16 years. Alcohol use as above. Drug use hx as above Full code Surrogate decision maker - mother Smoking packs per day: 1 Smoking cigarettes per day: 20.0 Smoking status: Current every day smoker Tobacco type: cigarettes Alcohol intake: current Substance use: current Substance use type: marijuana Do You Feel Safe in your Home?: Yes Lack of Transportation: No Lack of Food: Never True Current Housing: I Have Housing Concerned About Future Housing: No Difficulty Paying Gas/Electric Bills: No Difficulty Paying for Meds: No Currently Unemployed: No Education: High School Diploma/GED Difficulty w/ Childcare or Family Care: No Spiritual care concerns: No Meds Home Medications and Allergies Home Medications ?Medication ?Instructions ?Recorded ?Confirmed ?Type biotin 10,000 mcg capsule 10,000 mcg PO DAILY 07/28/24 07/28/24 History clonazepam 2 mg tablet 2 mg PO BID 07/28/24 07/28/24 History cyclobenzaprine 5 mg tablet 5 mg PO Q6H 07/28/24 07/28/24 History empagliflozin 10 mg tablet 10 mg PO DAILY 07/28/24 07/28/24 History (Jardiance) ferrous sulfate 325 mg (65 mg 325 mg PO DAILY 07/28/24 07/28/24 History iron) tablet folic acid 400 mcg tablet 400 mcg PO DAILY 07/28/24 07/28/24 History furosemide 20 mg tablet 20 mg PO DAILY 07/28/24 07/28/24 History hydrocodone 10 mg-acetaminophen 1 tablet PO Q4H PRN pain (scale 07/28/24 07/28/24 History 325 mg tablet score 4-6) lorazepam 2 mg tablet (Ativan) 2 mg PO Q4H PRN anxiety 07/28/24 07/28/24 History losartan 25 mg tablet 12.5 mg PO DAILY 07/28/24 07/28/24 History melatonin 10 mg tablet 10 mg PO HS 07/28/24 07/28/24 History midodrine 10 mg tablet 5 mg PO DAILY PRN low blood 07/28/24 07/28/24 History pressure milrinone 40 mg/200 mL(200 mcg/mL) ea 07/28/24 History in 5 % dextrose intravenous piggybk ondansetron 4 mg disintegrating 4 mg PO Q6H PRN nausea and vomiting 07/28/24 07/28/24 History tablet oxycodone 5 mg tablet 10 mg PO Q4H PRN pain (scale score 07/28/24 07/28/24 History 7-10) spironolactone 25 mg tablet 12.5 mg PO DAILY 07/28/24 07/28/24 History (Aldactone) theanine 200 mg capsule 200 mg PO DAILY 07/28/24 07/28/24 History zolpidem 10 mg tablet 10 mg PO HS PRN insomnia 07/28/24 07/28/24 History Allergies Allergy/AdvReac Type Severity Reaction Status Date / Time Sulfa (Sulfonamide Allergy Unknown Unknown Verified 07/28/24 17:07 Antibiotics) sulfamethoxazole Allergy Unknown Unknown Verified 07/28/24 17:07 trimethoprim Allergy Unknown Unknown Verified 07/28/24 17:07 Vital Signs Vital Signs - 24 hr 07/28/24 17:17 07/28/24 18:01 07/28/24 18:01 Temperature 99.2 F Pulse Rate 130 H 116 H 116 H Respiratory Rate 16 25 H Blood Pressure 113/86 111/88 Pulse Oximetry 97 95 Oxygen Delivery Room Air 07/28/24 18:59 07/28/24 19:14 Temperature Pulse Rate 124 H 113 H Respiratory Rate 17 19 Blood Pressure 115/99 H 108/83 Pulse Oximetry 98 99 Oxygen Delivery Exam Narrative: General: In no acute distress, well nourished Head: atraumatic, no encephalopathy Eyes: PERRLA, sclera clear ENT: moist mucous membranes, nasal passages clear Neck: supple, no JVD, no adenopathy, trachea midline Cardiac: Normal S1 and S2. Tachycardic, No murmur, gallops or friction rubs, peripheral pulses intact. Respiratory: Lungs clear to auscultation, no adventitious lung sounds, currently on room air Gastrointestinal: soft, non-distended, non-tender, normoactive bowel sounds. : voiding without difficulty. Extremities: moves all extremities well, no edema, reports severe neuropathy pain bilateral lower extremities Skin: clean, dry, intact. No wounds or lesions. Neuro: Alert and oriented x4, cranial nerves intact, no neuro deficits. Psych: normal mood, normal affect, interactive H&P: Results Labs Labs: Short CBC 07/28/24 Range/Units 17:30 WBC 9.8 (4.5-10.0) K/mm3 Hgb 12.8 L (14.0-18.0) g/dL Hct 39.3 L (42.0-52.0) % Plt Count 388 H D (150-375) k/mm3 BMP 07/28/24 17:30 Sodium 143 Potassium 3.7 Chloride 95 L Carbon Dioxide 22 BUN 16 D Creatinine 0.92 Glucose 113 H Calcium 9.1 Cardiac Enzymes 07/28/24 Range/Units 17:30 Troponin I 0.051 H* (0.000-0.034) ng/mL Liver Function 07/28/24 Range/Units 17:30 Total Bilirubin 0.5 (0.2-1.3) mg/dL AST 63 H (17-59) U/L ALT 38 (6-50) U/L Alkaline Phosphatase 80 (38-126) U/L Albumin 5.3 H (3.5-5.1) g/dL Assessment and Plan Assessment and plan (1) Dilated cardiomyopathy secondary to alcohol: Code(s): I42.6 - Alcoholic cardiomyopathy Status: Acute Assessment and Plan: * Echocardiogram from 01/30/2024 shown left ventricular systolic function severely reduced with an estimated EF of 15-20%, left ventricular diastolic function was normal. * Of note, Patient was transferred out of [facility] on 02/02/2024 for cardiogenic shock. At that time he was supported in the ICU on Levophed and dopamine infusions. He was also intubated. He was sent to [facility] on 02/02/24 in their cardiac ICU and was placed on Impella and ECMO. Was sent home on hospice. Patient revoked hospice back in April and was seeking placement on heart transplant list. * Last EF was up to 39% according to patient report * Patient follows with Dr. Mahmood at [facility] and Dr. Navi kowalski at [place]. * Pro BNP 613, Troponin 0.051>0.053 * Continue Milrinone infusion * He recently was prescribed Ivabradine 5 mg daily however he has not picked this up from his pharmacy yet, will defer to [employer] Distribution [employer] * Continue Jardiance, Spironolactone, Losartan, and Lasix * Midodrine 5 mg ordered PRN for hypotension * Admit to IMU for closer monitoring * Cardiology consulted, appreciate their input (2) Heart failure with reduced ejection fraction: Code(s): I50.20 - Unspecified systolic (congestive) heart failure Status: Acute Assessment and Plan: see above plan of care (3) Alcoholism: Code(s): F10.20 - Alcohol dependence, uncomplicated Status: Chronic Assessment and Plan: * ETOH 397 on arrival, patient admits to drinking Vodka today. He states he has abstained from alcohol for the past 6 months prior to today. * CIWA protocol ordered * Thiamine 300 mg daily and Multivitamin ordered * Continue folic acid (4) Chest pain: Qualifiers: Chest pain type: unspecified Qualified Code(s): R07.9 - Chest pain, unspecified Code(s): R07.9 - Chest pain, unspecified Status: Acute Assessment and Plan: Reporting chest pain that has been ongoing for the past 3 days * Troponin 0.051>0.053 * Continue to trend troponin x3 * Morphine 2 mg ordered as needed for chest pain * Aspirin 324 mg given * Cardiology consulted (5) Hepatic steatosis: Code(s): K76.0 - Fatty (change of) liver, not elsewhere classified Status: Acute Assessment and Plan: Secondary to alcohol abuse * AST 63, ALT 38 * Continue to trend (6) Tobacco abuse: Code(s): Z72.0 - Tobacco use Status: Acute Assessment and Plan: * Current every day smoker, 1 pack every 3 days. He reports he quit for 4 months and recently restarted. * Nicotine patch ordered (7) Peripheral neuropathy: Code(s): G62.9 - Polyneuropathy, unspecified Status: Acute Assessment and Plan: States he developed severe neuropathy after being on ECMO. He has tried Lyrica and Neurontin in the past without any significant relief. * Wellington 10/325 ordered, home dose * Dilaudid 1 mg q4h IVP for pain 7-10 * Continue Flexeril (8) Anxiety: Code(s): F41.9 - Anxiety disorder, unspecified Status: Acute Assessment and Plan: * Continue Ativan and clonazepam (9) Insomnia: Code(s): G47.00 - Insomnia, unspecified Status: Acute Assessment and Plan: * Continue melatonin and Ambien Quality VTE Prophylaxis VTE prophylaxis: pharmacologic ordered Hospitalist [facility] Advance Care Plan I have confirmed that the patient's Advanced Care Plan is present, code status is documented, or surrogate decision maker is listed in patient medical record.: Yes Medication Reconciliation I have utilized all available resources to obtain, update and review the patients current medications (includes all prescriptions, OTC, herbals, cannabis, and nutritional supplements).: Yes
[2024-07-28 20:02] LABS: NT Pro B Type Natriuretic Pept 613 pg/mL (19.9-100)
--- NOTE | 2024-07-28 20:07 | ECG_ITS ---
Test Date: 2024-07-28 20:09:39 Measurements Intervals [place] Rate: 118 P: 43 HI: 144 QRS: 75 QRSD: 96 T: 32 QT: 320 QTc: 449 Interpretive Statements SINUS TACHYCARDIA low QRS voltage in limb leads nonspecific T-wave abnormalities no significant change compared to previous ECG Electronically Signed On 07-29-2024 10:50:51 CDT by Wilbert Humphreys M.D.
[2024-07-28 20:16] LABS: Magnesium 2.3 mg/dL (1.6-2.3)
[2024-07-28 20:30] LABS: Troponin I 0.053 ng/mL (0.000-0.034)
[2024-07-28] MEDS: ASPIRIN 81 MG CHEWABLE TABLET 324 MG PO (20:36)
--- NOTE | 2024-07-28 21:34 | PC.NURSE ---
This RN to bedside to confirm Milrinone drip. Room smells heavily of cigarettes and did not earlier. Noted tobacco on bedside tray next to patient. Addressed with pt, who willingly gave up his cigarettes. Security notified of need for searching pt for additional contraband.
[2024-07-28] MEDS: MILRINONE LACTATE 20 MG in DEXTROSE 5% 80 ML IV CONT (22:32)
[2024-07-28] MEDS: NICOTINE (*PBKC) 21 MG PATCH 1 PATCH TRANSDERM (22:32)
--- NOTE | 2024-07-28 22:41 | ADMGEN ---
This patient, Douglas Wright, was admitted to IMU Room 232-01. Patient/family oriented to hospital policies and general routines including ID bracelet, bed and alarms, visiting hours, pain management, procedures, bathroom and other care routines, personal items, smoking policy, room service/diet, and visiting hours. Information on how to activate the Rapid Response Team has been discussed. Patient/Family are encouraged to report perceived risks to care and to ask questions if they do not understand what they are told or what they should do.
[2024-07-28] MEDS: HYDROmorphone HCL INJ (*CRX) 1 MG/ML SYR IV PUSH (23:43)
[2024-07-28 23:51] LABS: Glucose Point of Care 263 mg/dl (65-105)
[2024-07-29] VITALS (22 sets, daily range): BP systolic 97–121; BP diastolic 62–84; PULSE 91–125; RESP 12–24; TEMP 36.3–37.1; O2SAT 92–100; BMI 18.1
[2024-07-29 00:12] LABS: Troponin I 0.059 ng/mL (0.000-0.034)
[2024-07-29] MEDS: MELATONIN 5 MG TABLET 10 MG PO ×2 (01:06→20:19)
[2024-07-29] MEDS: CYCLOBENZAPRINE HCL 5 MG TABLET PO ×4 (01:07→17:06)
[2024-07-29] MEDS: clonazePAM (*CRX) 0.5 MG TABLET 2 MG PO ×3 (01:07→17:06)
[2024-07-29] MEDS: ZOLPIDEM TARTRATE (*CRX) 5 MG TABLET 10 MG PO ×2 (01:08→20:27)
[2024-07-29] MEDS: HYDROcodone/acetaminophen (*CRX) 10-325 MG TABLET 1 TAB PO ×5 (01:18→20:27)
[2024-07-29 02:33] LABS: MRSA (PCR) NOT DETECTED (NOT DETECTE)
[2024-07-29] MEDS: HYDROmorphone HCL INJ (*CRX) 1 MG/ML SYR IV PUSH ×2 (03:50→08:20)
[2024-07-29] MEDS: ONDANSETRON INJ 4 MG/2 ML VIAL IV PUSH (03:58)
[2024-07-29] MEDS: SALINE LOCK FLUSH 2 ML IV PUSH ×3 (05:56→22:14)
[2024-07-29 06:22] LABS: Basophils Percent Auto 0.4 % (0.2-1.2); Eosinophils Absolute Auto 0.1 K/mm3 (0-0.3); Eosinophils Percent Auto 1.4 % (0-4.4); Hematocrit 30.9 % (42.0-52.0); Hemoglobin 10.1 g/dL (14.0-18.0); Immature Granulocyte Absolute 0.02 K/mm3 (0.00-0.031); Immature Granulocyte Percent A 0.2 % (0-0.5); Lymphocytes Absolute Auto 2.55 K/mm3 (0.9-3.2); Lymphocytes Percent Auto 27.4 % (18.3-44.2); Mean Corpuscular HGB Conc 32.7 g/dl (32-36); Mean Corpuscular Hemoglobin 30.7 pg (26-34); Mean Corpuscular Volume 93.9 fl (80-100); Mean Platelet Volume 8.8 fl (7.4-10.4); Monocytes Absolute Auto 1.6 K/mm3 (0.1-0.6); Monocytes Percent Auto 16.7 % (2.6-8.5); Neutrophils Percent Auto 53.9 % (45.5-73.1); Platelet Count Result 245 k/mm3 (150-375); Red Blood Count 3.29 M/mm3 (4.6-6.20); Red Cell Distribution Width 15.4 % (11.5-14.5); White Blood Count 9.3 K/mm3 (4.5-10.0)
[2024-07-29 06:27] LABS: Alanine Aminotransferase 36 U/L (6-50); Albumin Level 4.3 g/dL (3.5-5.1); Alkaline Phosphatase 53 U/L (38-126); Anion Gap 13 mmol/L (4-12); Aspartate Amino Transferase 58 U/L (17-59); Blood Urea Nitrogen 20 mg/dL (9-20); Calcium 8.5 mg/dL (8.4-10.2); Carbon Dioxide 33 mmol/L (22-30); Chloride 87 mmol/L (98-107); Estimated CRCL calculation 91 ml/min; Estimated Glomerular Filt Rate > 60; Glucose 137 mg/dL (65-110); Magnesium 2.1 mg/dL (1.6-2.3); Potassium 3.4 mmol/L (3.4-5.0); Sodium 133 mmol/L (137-145)
[2024-07-29 06:43] LABS: Troponin I 0.049 ng/mL (0.000-0.034)
[2024-07-29 07:57] LABS: Glucose Point of Care 116 mg/dl (65-105)
[2024-07-29] MEDS: FUROSEMIDE 20 MG TABLET PO (09:57)
[2024-07-29] MEDS: THIAMINE HCL 100 MG TABLET 300 MG PO (09:57)
[2024-07-29] MEDS: THERAPEUTIC MULTIVITAMINS/MINERALS TAB (*BKC) 1 TABLET PO (09:58)
[2024-07-29] MEDS: FOLIC ACID 0.4 MG TABLET PO (09:58)
[2024-07-29] MEDS: PANTOPRAZOLE 40 MG TABLET PO ×2 (09:58→20:19)
[2024-07-29] MEDS: SPIRONOLACTONE 12.5 MG TABLET PO (09:58)
[2024-07-29] MEDS: EMPAGLIFLOZIN 10 MG TABLET PO (09:58)
[2024-07-29] MEDS: ENOXAPARIN 40 MG/0.4 ML SYRINGE SUB-Q (09:59)
[2024-07-29] MEDS: NICOTINE (*PBKC) 21 MG PATCH 1 PATCH TRANSDERM (09:59)
[2024-07-29] MEDS: POTASSIUM CHLORIDE 20 MEQ ER TABLET 40 MEQ PO (10:47)
[2024-07-29] MEDS: LOSARTAN POTASSIUM 12.5 MG TABLET PO (10:47)
--- NOTE | 2024-07-29 11:31 | P.CONCA_ITS ---
Assessment and Plan Assessment and plan (1) Heart failure with reduced ejection fraction: Code(s): I50.20 - Unspecified systolic (congestive) heart failure Status: Acute Plan 34-year-old man with nonischemic cardiomyopathy (the to be secondary to alcohol abuse) following at [facility] advanced heart failure team (complicated previous admission requiring ECMO and eventual discharge to hospice where it appears he developed opioid dependence) and Dr. Mcelroy and chronic opioid dependence presents with chest pain and shortness of breath Chest pain -on review of his records, it appears that he coronary angiography performed on January of 2024 which show angiographic disease free coronaries -no further ischemic evaluation warranted at this time especially in light of his clinical course Acute on chronic systolic heart failure -continue his outpatient milrinone infusion -will order him a one time dose Lasix 40 mg IV push -most likely will be discharged tomorrow -continue Jardiance, losartan, and spironolactone -no beta blockers given that he is inotrope dependent -outpatient consideration for ivabradine Troponin elevation -mild and trend in consistent with acute coronary syndrome -more consistent with his chronic cardiomyopathy History of Present Illness History of Present Illness Consult date/time: 07/29/24 11:31 Requesting physician: Pura Monroy APRN Consult reason: chest pain Reason For Visit: Chest pain, Alcohol intoxication Narrative: 34-year-old man with nonischemic cardiomyopathy (the to be secondary to alcohol abuse) following at [facility] advanced heart failure team (complicated previous admission requiring ECMO and eventual discharge to hospice where it appears he developed opioid dependence) and Dr. Mcelroy and chronic opioid dependence presents with chest pain and shortness of breath. Yesterday, he was coping with several stressors and consume alcohol. After consumption, he started to develop chest discomfort as well as shortness of breath. The chest pain has improved since his admission. He still has some mild shortness of breath and some mild orthopnea. He is unsure if he has any lower extremity swelling. Review of Systems 2 Cardiovascular: Cardiovascular: Reports as per HPI Respiratory: Respiratory: Reports as per HPI [facility] Past Medical History Medical History (Updated 07/29/24 @ 00:00 by Pura Monroy APRN) Insomnia Peripheral neuropathy Dilated cardiomyopathy secondary to alcohol Anxiety Hepatic steatosis Alcoholism Pancreatitis hx of necrotizing pancreatitis November 2023 Hx of pseudocyst that was drained Surgical History Surgical History History of ankle surgery Family History Family History Father Heart disease Hypertension Social History Social History Social History: Smokes 1ppd x16 years. Alcohol use as above. Drug use hx as above Full code Surrogate decision maker - mother Smoking packs per day: 1 Smoking cigarettes per day: 20.0 Smoking status: Current every day smoker Tobacco type: cigarettes Alcohol intake: current Substance use: current Substance use type: marijuana Do You Feel Safe in your Home?: Yes Lack of Transportation: No Lack of Food: Never True Current Housing: I Have Housing Concerned About Future Housing: No Difficulty Paying Gas/Electric Bills: No Difficulty Paying for Meds: No Currently Unemployed: No Education: High School Diploma/GED Difficulty w/ Childcare or Family Care: No Spiritual care concerns: No Meds Home Medications and Allergies Home Medications ?Medication ?Instructions ?Recorded ?Confirmed ?Type biotin 10,000 mcg capsule 10,000 mcg PO DAILY 07/28/24 07/28/24 History clonazepam 2 mg tablet 2 mg PO BID 07/28/24 07/28/24 History cyclobenzaprine 5 mg tablet 5 mg PO Q6H 07/28/24 07/28/24 History empagliflozin 10 mg tablet 10 mg PO DAILY 07/28/24 07/28/24 History (Jardiance) ferrous sulfate 325 mg (65 mg 325 mg PO DAILY 07/28/24 07/28/24 History iron) tablet folic acid 400 mcg tablet 400 mcg PO DAILY 07/28/24 07/28/24 History furosemide 20 mg tablet 20 mg PO DAILY 07/28/24 07/28/24 History hydrocodone 10 mg-acetaminophen 1 tablet PO Q4H PRN pain (scale 07/28/24 07/28/24 History 325 mg tablet score 4-6) lorazepam 2 mg tablet (Ativan) 2 mg PO Q4H PRN anxiety 07/28/24 07/28/24 History losartan 25 mg tablet 12.5 mg PO DAILY 07/28/24 07/28/24 History melatonin 10 mg tablet 10 mg PO HS 07/28/24 07/28/24 History midodrine 10 mg tablet 5 mg PO DAILY PRN low blood 07/28/24 07/28/24 History pressure milrinone 40 mg/200 mL(200 mcg/mL) See Rx Instructions continuous IV 07/28/24 07/28/24 History in 5 % dextrose intravenous piggybk infusion .COMPLEX ondansetron 4 mg disintegrating 4 mg PO Q6H PRN nausea and vomiting 07/28/24 07/28/24 History tablet oxycodone 5 mg tablet 10 mg PO Q4H PRN pain (scale score 07/28/24 07/28/24 History 7-10) spironolactone 25 mg tablet 12.5 mg PO DAILY 07/28/24 07/28/24 History (Aldactone) theanine 200 mg capsule 200 mg PO DAILY 07/28/24 07/28/24 History zolpidem 10 mg tablet 10 mg PO HS PRN insomnia 07/28/24 07/28/24 History Allergies Allergy/AdvReac Type Severity Reaction Status Date / Time Sulfa (Sulfonamide Allergy Unknown Unknown Verified 07/28/24 17:07 Antibiotics) sulfamethoxazole Allergy Unknown Unknown Verified 07/28/24 17:07 trimethoprim Allergy Unknown Unknown Verified 07/28/24 17:07 Vital Signs Vital Signs - 24 hr 07/28/24 17:17 07/28/24 18:01 07/28/24 18:01 Temperature 37.3 C Pulse Rate 130 H 116 H 116 H Pulse Rate [Apical] Respiratory Rate 16 25 H Blood Pressure 113/86 111/88 Pulse Oximetry 97 95 Oxygen Delivery Room Air Oxygen Flow Rate 07/28/24 18:59 07/28/24 19:14 07/28/24 19:56 Temperature Pulse Rate 124 H 113 H 115 H Pulse Rate [Apical] Respiratory Rate 17 19 15 Blood Pressure 115/99 H 108/83 104/82 Pulse Oximetry 98 99 97 Oxygen Delivery Oxygen Flow Rate 07/28/24 22:31 07/28/24 22:32 07/29/24 00:00 Temperature 36.4 C 36.4 C Pulse Rate 114 H 112 H 115 H Pulse Rate [Apical] Respiratory Rate 15 15 Blood Pressure 112/72 108/73 Pulse Oximetry 100 100 Oxygen Delivery Oxygen Flow Rate 07/29/24 00:00 07/29/24 00:00 07/29/24 00:00 Temperature Pulse Rate 125 H 125 H Pulse Rate [Apical] Respiratory Rate 15 Blood Pressure 108/73 Pulse Oximetry 100 Oxygen Delivery Nasal Cannula Oxygen Flow Rate 2 07/29/24 00:00 07/29/24 02:00 07/29/24 02:00 Temperature Pulse Rate 115 H 112 H 112 H Pulse Rate [Apical] Respiratory Rate Blood Pressure 108/73 102/68 102/68 Pulse Oximetry Oxygen Delivery Oxygen Flow Rate 07/29/24 02:00 07/29/24 04:00 07/29/24 04:00 Temperature 36.3 C L Pulse Rate 112 H 120 H 117 H Pulse Rate [Apical] Respiratory Rate 15 Blood Pressure 111/68 111/68 Pulse Oximetry 100 Oxygen Delivery Oxygen Flow Rate 07/29/24 04:00 07/29/24 04:00 07/29/24 04:00 Temperature Pulse Rate 117 H 117 H Pulse Rate [Apical] 117 H Respiratory Rate 15 Blood Pressure 111/68 Pulse Oximetry 100 Oxygen Delivery Nasal Cannula Oxygen Flow Rate 2 07/29/24 06:00 07/29/24 06:00 07/29/24 06:00 Temperature Pulse Rate 108 H 109 H 109 H Pulse Rate [Apical] Respiratory Rate Blood Pressure 119/66 119/66 Pulse Oximetry Oxygen Delivery Oxygen Flow Rate 07/29/24 08:00 07/29/24 09:45 Temperature 36.3 C L 36.7 C Pulse Rate 111 H 104 H Pulse Rate [Apical] Respiratory Rate 20 24 H Blood Pressure 114/81 121/82 Pulse Oximetry 96 92 Oxygen Delivery Oxygen Flow Rate Exam 2 Const: General: comfortable HENMT: Mouth: Yes moist mucous membranes Eyes: EOM: EOMs intact bilaterally Neck: Neck: no JVD Resp: Effort & Inspection: normal respiratory effort Auscultation: clear to auscultation bilaterally Cardio: Rate: tachycardic Rhythm: regular rhythm GI: GI Palp: Yes Soft to palpation Neuro: Speech: normal speech Extrem: General: no pedal edema Results Labs and Meds 07/29/24 05:58 07/29/24 05:58 Lab results: Cardiac Enzymes 07/28/24 07/28/24 07/28/24 Range/Units 17:30 20:00 23:18 AST 63 H (17-59) U/L Troponin I 0.051 H* 0.053 H* 0.059 H* (0.000-0.034) ng/mL 07/29/24 Range/Units 05:58 AST 58 (17-59) U/L Troponin I 0.049 H* (0.000-0.034) ng/mL Coagulation 07/28/24 Range/Units 17:30 PT 12.0 (11.1-14.7) Seconds APTT 30.5 (22.3-36.8) Seconds CBC 07/28/24 07/29/24 Range/Units 17:30 05:58 WBC 9.8 9.3 (4.5-10.0) K/mm3 RBC 4.26 L 3.29 L (4.6-6.20) M/mm3 Hgb 12.8 L 10.1 L (14.0-18.0) g/dL Hct 39.3 L 30.9 L (42.0-52.0) % Plt Count 388 H D 245 (150-375) k/mm3 Lymph # (Auto) 3.33 H 2.55 (0.9-3.2) K/mm3 [place] # (Auto) 1.2 H 1.6 H (0.1-0.6) K/mm3 Eos # (Auto) 0.0 0.1 (0-0.3) K/mm3 Baso # (Auto) 0.1 0.0 (0.0-0.1) K/mm3 Comprehensive Metabolic Panel 07/28/24 07/29/24 Range/Units 17:30 05:58 Sodium 143 133 L (137-145) mmol/L Potassium 3.7 3.4 (3.4-5.0) mmol/L Chloride 95 L 87 L (98-107) mmol/L Carbon Dioxide 22 33 H (22-30) mmol/L BUN 16 D 20 (9-20) mg/dL Creatinine 0.92 0.85 (0.7-1.3) mg/dL Glucose 113 H 137 H (65-110) mg/dL Calcium 9.1 8.5 (8.4-10.2) mg/dL AST 63 H 58 (17-59) U/L ALT 38 36 (6-50) U/L Alkaline Phosphatase 80 53 (38-126) U/L Total Protein 8.0 7.0 (6.3-8.2) g/dL Albumin 5.3 H 4.3 (3.5-5.1) g/dL Intake and Output 07/28/24 07/29/24 07/29/24 23:59 07:59 15:59 Intake Total 1114.2 240 Output Total 400 Balance 714.2 240 Intake: IV 14.2 Milrinone Lactate 20 mg In 14.2 Dextrose 5% 80 ml @ 1.9 mls/hr IV CONT .Q24H [facility] Rx#:[id number] Oral 1100 240 Output: Urine 400 Patient Weight 07/29/24 23:59 Weight 60.8 kg
--- NOTE | 2024-07-29 11:31 | PM.PNCARD ---
Subjective Date/time seen: 07/29/24 11:31 Objective Data Vital Signs Vital Signs: Vital Signs - 24 hr 07/28/24 17:17 07/28/24 18:01 07/28/24 18:01 Temperature 37.3 C Pulse Rate 130 H 116 H 116 H Pulse Rate [Apical] Respiratory Rate 16 25 H Blood Pressure 113/86 111/88 Pulse Oximetry 97 95 Oxygen Delivery Room Air Oxygen Flow Rate 07/28/24 18:59 07/28/24 19:14 07/28/24 19:56 Temperature Pulse Rate 124 H 113 H 115 H Pulse Rate [Apical] Respiratory Rate 17 19 15 Blood Pressure 115/99 H 108/83 104/82 Pulse Oximetry 98 99 97 Oxygen Delivery Oxygen Flow Rate 07/28/24 22:31 07/28/24 22:32 07/29/24 00:00 Temperature 36.4 C 36.4 C Pulse Rate 114 H 112 H 115 H Pulse Rate [Apical] Respiratory Rate 15 15 Blood Pressure 112/72 108/73 Pulse Oximetry 100 100 Oxygen Delivery Oxygen Flow Rate 07/29/24 00:00 07/29/24 00:00 07/29/24 00:00 Temperature Pulse Rate 125 H 125 H Pulse Rate [Apical] Respiratory Rate 15 Blood Pressure 108/73 Pulse Oximetry 100 Oxygen Delivery Nasal Cannula Oxygen Flow Rate 2 07/29/24 00:00 07/29/24 02:00 07/29/24 02:00 Temperature Pulse Rate 115 H 112 H 112 H Pulse Rate [Apical] Respiratory Rate Blood Pressure 108/73 102/68 102/68 Pulse Oximetry Oxygen Delivery Oxygen Flow Rate 07/29/24 02:00 07/29/24 04:00 07/29/24 04:00 Temperature 36.3 C L Pulse Rate 112 H 120 H 117 H Pulse Rate [Apical] Respiratory Rate 15 Blood Pressure 111/68 111/68 Pulse Oximetry 100 Oxygen Delivery Oxygen Flow Rate 07/29/24 04:00 07/29/24 04:00 07/29/24 04:00 Temperature Pulse Rate 117 H 117 H Pulse Rate [Apical] 117 H Respiratory Rate 15 Blood Pressure 111/68 Pulse Oximetry 100 Oxygen Delivery Nasal Cannula Oxygen Flow Rate 2 07/29/24 06:00 07/29/24 06:00 07/29/24 06:00 Temperature Pulse Rate 108 H 109 H 109 H Pulse Rate [Apical] Respiratory Rate Blood Pressure 119/66 119/66 Pulse Oximetry Oxygen Delivery Oxygen Flow Rate 07/29/24 08:00 07/29/24 09:45 Temperature 36.3 C L 36.7 C Pulse Rate 111 H 104 H Pulse Rate [Apical] Respiratory Rate 20 24 H Blood Pressure 114/81 121/82 Pulse Oximetry 96 92 Oxygen Delivery Oxygen Flow Rate Intake/Output Intake/Output: Intake & Output 07/26/24 07/27/24 07/28/24 07/29/24 23:59 23:59 23:59 23:59 Intake Total 1354.2 Output Total 400 Balance 954.2 Meds/Results Medications: Active Medications Generic Name Dose Route Start Last Admin Trade Name Freq PRN Reason Stop Dose Admin Acetaminophen 650 mg 07/28/24 20:25 Acetaminophen 325 Mg Tablet PO Q4H PRN Mild Pain (1-5) Or Fever Hydrocodone Bitart/Acetaminophen 1 tab 07/28/24 23:53 07/29/24 10:47 Hydrocodone/Acetaminophen (*Crx) 10-325 Mg Tablet PO 1 tab Q4H PRN Administration Pain Rated 6 or Greater Clonazepam 2 mg 07/29/24 09:00 07/29/24 09:57 Clonazepam (*Crx) 0.5 Mg Tablet PO 2 mg BID KATY Administration Cyclobenzaprine HCl 5 mg 07/29/24 00:00 07/29/24 05:55 Cyclobenzaprine Hcl 5 Mg Tablet PO 5 mg Q6HR KATY Administration Empagliflozin 10 mg 07/29/24 09:00 07/29/24 09:58 Empagliflozin 10 Mg Tablet PO 10 mg DAILY KATY Administration Enoxaparin Sodium 40 mg 07/29/24 09:00 07/29/24 09:59 Enoxaparin 40 Mg/0.4 Ml Syringe SUB-Q 40 mg DAILY KATY Administration Ferrous Sulfate 325 mg 07/29/24 12:00 Ferrous Sulfate [address] BY MOUTH DAILY@1200 KATY Folic Acid 0.4 mg 07/29/24 09:00 07/29/24 09:58 Folic Acid 0.4 Mg Tablet PO 0.4 mg DAILY KATY Administration Furosemide 20 mg 07/29/24 09:00 07/29/24 09:57 Furosemide 20 Mg Tablet PO 20 mg DAILY KATY Administration Milrinone Lactate 20 mg/ 100 mls @ 1.9 mls/hr 07/28/24 21:00 07/29/24 06:00 Dextrose IV CONT 1.9 mls/hr .Q24H KATY Infusion Lorazepam 2 mg 07/28/24 20:25 Lorazepam Inj (*Crx) 2 Mg/Ml Vial IV PUSH Q2H PRN CIWA > 15 Lorazepam 2 mg 07/28/24 23:53 Lorazepam (*Crx) 1 Mg Tablet PO Q4H PRN anxiety Losartan Potassium 12.5 mg 07/29/24 09:00 07/29/24 10:47 Losartan Potassium 12.5 Mg Tablet PO 12.5 mg DAILY KATY Administration Melatonin 10 mg 07/29/24 21:00 Melatonin 5 Mg Tablet PO HS KATY Midodrine 5 mg 07/28/24 23:56 Midodrine Hcl 2.5 Mg Tablet PO DAILY PRN low blood pressure Miscellaneous Information 0 each 07/29/24 00:01 Midodrine Clarify Only Giving Daily Prn And Specify Low Blood Pressure XX 08/28/24 00:00 CLARIFY KATY Multivitamins/Calcium 1 tablet 07/29/24 09:00 07/29/24 09:58 Therapeutic Multivitamins/Minerals Tab (*Bkc) PO 1 tablet QAM KATY Administration Nicotine 1 patch 07/28/24 20:40 07/29/24 09:59 Nicotine (*Pbkc) 21 Mg Patch TRANSDERM 1 patch DAILY KATY Administration Nonformulary 1 each 07/29/24 00:06 Nutritional XX 07/30/24 00:05 Supplementnonformula PRN PRN ry Drug (Biotin 10, PROTOCOL 000 Mcg Capsule) Ondansetron HCl 4 mg 07/28/24 19:44 07/29/24 03:58 Ondansetron Inj 4 Mg/2 Ml Vial IV PUSH 4 mg Q6H PRN Administration Nausea And Vomiting Pantoprazole Sodium 40 mg 07/29/24 09:00 07/29/24 09:58 Pantoprazole 40 Mg Tablet PO 40 mg Q12HR KATY Administration Sodium Chloride 2 ml 07/29/24 06:00 07/29/24 05:56 Saline Lock Flush IV PUSH 2 ml Q8HR KATY Administration Spironolactone 12.5 mg 07/29/24 09:00 07/29/24 09:58 Spironolactone 12.5 Mg Tablet PO 12.5 mg DAILY KATY Administration Thiamine HCl 300 mg 07/29/24 09:00 07/29/24 09:57 Thiamine Hcl 100 Mg Tablet PO 300 mg QAM KATY Administration Zolpidem Tartrate 10 mg 07/28/24 23:53 07/29/24 01:08 Zolpidem Tartrate (*Crx) 5 Mg Tablet PO 10 mg HS PRN Administration insomnia Radiology Results: ITS Impressions Chest X-Ray 07/28/24 20:45 IMPRESSION: No acute cardiopulmonary pathology. Labs Labs: Laboratory Results - last 24 hr 07/28/24 07/28/24 07/28/24 17:30 20:00 20:00 WBC 9.8 RBC 4.26 L Hgb 12.8 L Hct 39.3 L MCV 92.3 MCH 30.0 MCHC 32.6 RDW 15.5 H Plt Count 388 H D MPV 8.6 Immature Gran % (Auto) 0.4 Neut % (Auto) 52.1 Lymph % (Auto) 33.9 [place] % (Auto) 12.6 H Eos % (Auto) 0.4 Baso % (Auto) 0.6 Lymph # (Auto) 3.33 H [place] # (Auto) 1.2 H Eos # (Auto) 0.0 Baso # (Auto) 0.1 Abs Immat Gran (auto) 0.04 H Absolute Neuts (auto) 5.1 Absolute Nucleated RBC 0.000 Nucleated RBC % 0.0 PT 12.0 INR 0.8 APTT 30.5 Sodium 143 Potassium 3.7 Chloride 95 L Carbon Dioxide 22 Anion Gap 26 H BUN 16 D Creatinine 0.92 Estim Creat Clear Calc 88 Estimated GFR > 60 Glucose 113 H POC Capillary Glucose Calcium 9.1 Magnesium 2.3 Cancelled Total Bilirubin 0.5 AST 63 H ALT 38 Alkaline Phosphatase 80 Troponin I 0.051 H* 0.053 H* NT-Pro-B Natriuret Pep 613 H Total Protein 8.0 Albumin 5.3 H Lipase 23 Nasal MRSA (PCR) Ethyl Alcohol 397 H* 07/28/24 07/28/24 07/29/24 23:18 23:40 01:12 WBC RBC Hgb Hct MCV MCH MCHC RDW Plt Count MPV Immature Gran % (Auto) Neut % (Auto) Lymph % (Auto) [place] % (Auto) Eos % (Auto) Baso % (Auto) Lymph # (Auto) [place] # (Auto) Eos # (Auto) Baso # (Auto) Abs Immat Gran (auto) Absolute Neuts (auto) Absolute Nucleated RBC Nucleated RBC % PT INR APTT Sodium Potassium Chloride Carbon Dioxide Anion Gap BUN Creatinine Estim Creat Clear Calc Estimated GFR Glucose POC Capillary Glucose 263 H Calcium Magnesium Total Bilirubin AST ALT Alkaline Phosphatase Troponin I 0.059 H* NT-Pro-B Natriuret Pep Total Protein Albumin Lipase Nasal MRSA (PCR) Not detected Ethyl Alcohol 07/29/24 07/29/24 05:58 07:40 WBC 9.3 RBC 3.29 L Hgb 10.1 L Hct 30.9 L MCV 93.9 MCH 30.7 MCHC 32.7 RDW 15.4 H Plt Count 245 MPV 8.8 Immature Gran % (Auto) 0.2 Neut % (Auto) 53.9 Lymph % (Auto) 27.4 [place] % (Auto) 16.7 H Eos % (Auto) 1.4 Baso % (Auto) 0.4 Lymph # (Auto) 2.55 [place] # (Auto) 1.6 H Eos # (Auto) 0.1 Baso # (Auto) 0.0 Abs Immat Gran (auto) 0.02 Absolute Neuts (auto) 5.0 Absolute Nucleated RBC 0.000 Nucleated RBC % 0.0 PT INR APTT Sodium 133 L Potassium 3.4 Chloride 87 L Carbon Dioxide 33 H Anion Gap 13 H BUN 20 Creatinine 0.85 Estim Creat Clear Calc 91 Estimated GFR > 60 Glucose 137 H POC Capillary Glucose 116 H Calcium 8.5 Magnesium 2.1 Total Bilirubin 1.0 AST 58 ALT 36 Alkaline Phosphatase 53 Troponin I 0.049 H* NT-Pro-B Natriuret Pep Total Protein 7.0 Albumin 4.3 Lipase Nasal MRSA (PCR) Ethyl Alcohol
[2024-07-29 11:34] LABS: Glucose Point of Care 169 mg/dl (65-105)
[2024-07-29] MEDS: FERROUS SULFATE 325 MG TABLET DR BY MOUTH (13:08)
[2024-07-29] MEDS: FUROSEMIDE INJ 40 MG/4 ML VIAL IV PUSH (13:08)
[2024-07-29 16:16] LABS: Glucose Point of Care 117 mg/dl (65-105)
[2024-07-29] MEDS: LORazepam (*CRX) 1 MG TABLET 2 MG PO (17:10)
--- NOTE | 2024-07-29 17:10 | P.PNIM_ITS ---
Progress Note: A&P Assessment and Plan (1) Dilated cardiomyopathy secondary to alcohol: Code(s): I42.6 - Alcoholic cardiomyopathy Status: Acute Assessment and Plan: * Echocardiogram from 01/30/2024 shown left ventricular systolic function severely reduced with an estimated EF of 15-20%, left ventricular diastolic function was normal. * Of note, Patient was transferred out of [facility] on 02/02/2024 for cardiogenic shock. At that time he was supported in the ICU on Levophed and dopamine infusions. He was also intubated. He was sent to [facility] on 02/02/24 in their cardiac ICU and was placed on Impella and ECMO. Was sent home on hospice. Patient revoked hospice back in April and was seeking placement on heart transplant list. * Last EF was up to 39% according to patient report * Patient follows with Dr. Mahmood at [facility] and Dr. Mcelroy here at [place]. Patient presents back here for CP. Pro BNP 613, Troponin 0.051>0.053 * He came in on a Milrinone infusion which was continued here. * Recently prescribed Ivabradine 5 mg daily however he has not picked this up from his pharmacy yet, will defer to [facility] * Continue Jardiance, Spironolactone, Losartan, and Lasix * He states he has been compliant with his medications and that only his narcotics was not accessible recently due to the move * Midodrine 5 mg ordered PRN for hypotension * Admitted to IMU for closer monitoring and Cardiology consulted, appreciate their input * Lasix IV x1 given. Follow (2) Heart failure with reduced ejection fraction: Code(s): I50.20 - Unspecified systolic (congestive) heart failure Status: Acute Assessment and Plan: see above plan of care (3) Alcoholism: Code(s): F10.20 - Alcohol dependence, uncomplicated Status: Chronic Assessment and Plan: Patient presumably has been sober since his hospitalization in January. * ETOH 397 on arrival, patient admits to drinking Vodka today. He states he has abstained from alcohol for the past 6 months prior to today. * CIWA protocol ordered. CIWA was 9 initally but has improved since admission * Thiamine 300 mg daily and Multivitamin ordered * Continue folic acid (4) Chest pain: Qualifiers: Chest pain type: unspecified Qualified Code(s): R07.9 - Chest pain, unspecified Code(s): R07.9 - Chest pain, unspecified Status: Acute Assessment and Plan: Reporting chest pain that has been ongoing for the past 3 days * Troponin peaked 0.059 * Morphine 2 mg ordered as needed for chest pain * Aspirin 324 mg given * Cardiology consulted * Has had [facility] with known clean coronaries so suspect elevated trop related to CMP Follow (5) Hepatic steatosis: Code(s): K76.0 - Fatty (change of) liver, not elsewhere classified Status: Acute Assessment and Plan: Secondary to alcohol abuse * AST 63, ALT 38 * Continue to trend (6) Tobacco abuse: Code(s): Z72.0 - Tobacco use Status: Acute Assessment and Plan: * Current every day smoker, 1 pack every 3 days. He reports he quit for 4 months and recently restarted. * Nicotine patch ordered * Encourage cesstion (7) Peripheral neuropathy: Code(s): G62.9 - Polyneuropathy, unspecified Status: Acute Assessment and Plan: States he developed severe neuropathy after being on ECMO. He has tried Lyrica and Neurontin in the past without any significant relief. * [place] 10/325 ordered, home dose for pain 6-10 * Continue Flexeril. Stop Dilaudid. * Recommend pain management. Start PT/OT (8) Anxiety: Code(s): F41.9 - Anxiety disorder, unspecified Status: Acute Assessment and Plan: * Continue clonazepam home dose. * Stop Ativan prn for anxiety. Ativan availabel for w/d symptoms. (9) Insomnia: Code(s): G47.00 - Insomnia, unspecified Status: Acute Assessment and Plan: * Continue melatonin and Ambien Plan DVT Prophylaxis - Lovenox Code status - Full Subjective Date/time seen: 07/29/24 17:10 Interval history: 34yo male with hx of alcoholism and alcohol induced CMP here for chest pain after drinking 750ml of vodka. Assuming care. Chart reviewed. He complains of leg and feet pain related to hx of severe LE ischemia from a low flow state. No CP with pain comes and goes. Slight SOB. Not out of bed yet this morning. He does have trouble getting around due to his neuropathy. Exam Narrative: AF 98.8 105/75 99 16 98% ra Gen - NARD Chest - CTA bilaterally, nml RR CV - RRR S1/S2. Tele showing PVCs. Abd - Soft, NT/ND, Positive BS Ext - No pedal edema. 2+ PT pulses. Neuro - Alert and oriented. Nonfocal exam. Sensitivity to his feet to light touch Psych - Nml mood and affect Skin - Warm and dry Objective Data Vital Signs Vital Signs: Vital Signs - 24 hr 07/28/24 17:17 07/28/24 18:01 07/28/24 18:01 Temperature 99.2 F Pulse Rate 130 H 116 H 116 H Pulse Rate [Apical] Respiratory Rate 16 25 H Blood Pressure 113/86 111/88 Pulse Oximetry 97 95 Oxygen Delivery Room Air Oxygen Flow Rate 07/28/24 18:59 07/28/24 19:14 07/28/24 19:56 Temperature Pulse Rate 124 H 113 H 115 H Pulse Rate [Apical] Respiratory Rate 17 19 15 Blood Pressure 115/99 H 108/83 104/82 Pulse Oximetry 98 99 97 Oxygen Delivery Oxygen Flow Rate 07/28/24 22:31 07/28/24 22:32 07/29/24 00:00 Temperature 97.6 F 97.6 F Pulse Rate 114 H 112 H 115 H Pulse Rate [Apical] Respiratory Rate 15 15 Blood Pressure 112/72 108/73 Pulse Oximetry 100 100 Oxygen Delivery Oxygen Flow Rate 07/29/24 00:00 07/29/24 00:00 07/29/24 00:00 Temperature Pulse Rate 125 H 125 H Pulse Rate [Apical] Respiratory Rate 15 Blood Pressure 108/73 Pulse Oximetry 100 Oxygen Delivery Nasal Cannula Oxygen Flow Rate 2 07/29/24 00:00 07/29/24 02:00 07/29/24 02:00 Temperature Pulse Rate 115 H 112 H 112 H Pulse Rate [Apical] Respiratory Rate Blood Pressure 108/73 102/68 102/68 Pulse Oximetry Oxygen Delivery Oxygen Flow Rate 07/29/24 02:00 07/29/24 04:00 07/29/24 04:00 Temperature 97.4 F L Pulse Rate 112 H 120 H 117 H Pulse Rate [Apical] Respiratory Rate 15 Blood Pressure 111/68 111/68 Pulse Oximetry 100 Oxygen Delivery Oxygen Flow Rate 07/29/24 04:00 07/29/24 04:00 07/29/24 04:00 Temperature Pulse Rate 117 H 117 H Pulse Rate [Apical] 117 H Respiratory Rate 15 Blood Pressure 111/68 Pulse Oximetry 100 Oxygen Delivery Nasal Cannula Oxygen Flow Rate 2 07/29/24 06:00 07/29/24 06:00 07/29/24 06:00 Temperature Pulse Rate 108 H 109 H 109 H Pulse Rate [Apical] Respiratory Rate Blood Pressure 119/66 119/66 Pulse Oximetry Oxygen Delivery Oxygen Flow Rate 07/29/24 08:00 07/29/24 08:00 07/29/24 08:00 Temperature 97.3 F L Pulse Rate 111 H 111 H 119 H Pulse Rate [Apical] Respiratory Rate 20 Blood Pressure 114/81 114/81 Pulse Oximetry 96 Oxygen Delivery Oxygen Flow Rate 07/29/24 09:45 07/29/24 10:00 07/29/24 10:00 Temperature 98.0 F Pulse Rate 104 H 104 H 104 H Pulse Rate [Apical] Respiratory Rate 24 H Blood Pressure 121/82 121/84 Pulse Oximetry 92 Oxygen Delivery Oxygen Flow Rate 07/29/24 12:00 07/29/24 12:00 07/29/24 12:00 Temperature 98.2 F Pulse Rate 102 H 102 H 103 H Pulse Rate [Apical] Respiratory Rate 12 Blood Pressure 117/79 117/79 Pulse Oximetry 99 Oxygen Delivery Oxygen Flow Rate 07/29/24 14:00 07/29/24 14:00 07/29/24 14:28 Temperature 97.6 F Pulse Rate 94 98 98 Pulse Rate [Apical] Respiratory Rate 16 Blood Pressure 106/74 106/74 Pulse Oximetry 96 Oxygen Delivery Oxygen Flow Rate 07/29/24 15:45 07/29/24 16:00 07/29/24 16:23 Temperature 98.8 F Pulse Rate 99 92 99 Pulse Rate [Apical] Respiratory Rate 16 Blood Pressure 105/75 105/75 Pulse Oximetry 98 Oxygen Delivery Oxygen Flow Rate Intake/Output Intake/Output: Intake & Output 07/26/24 07/27/24 07/28/24 07/29/24 23:59 23:59 23:59 23:59 Intake Total 1613.9 Output Total 400 Balance 1213.9 Meds/Results Medications: Active Medications Generic Name Dose Route Start Last Admin Trade Name Freq PRN Reason Stop Dose Admin Acetaminophen 650 mg 07/28/24 20:25 Acetaminophen 325 Mg Tablet PO Q4H PRN Mild Pain (1-5) Or Fever Hydrocodone Bitart/Acetaminophen 1 tab 07/28/24 23:53 07/29/24 14:35 Hydrocodone/Acetaminophen (*Crx) 10-325 Mg Tablet PO 1 tab Q4H PRN Administration Pain Rated 6 or Greater Clonazepam 2 mg 07/29/24 09:00 07/29/24 17:06 Clonazepam (*Crx) 0.5 Mg Tablet PO 2 mg BID KATY Administration Cyclobenzaprine HCl 5 mg 07/29/24 00:00 07/29/24 17:06 Cyclobenzaprine Hcl 5 Mg Tablet PO 5 mg Q6HR KATY Administration Empagliflozin 10 mg 07/29/24 09:00 07/29/24 09:58 Empagliflozin 10 Mg Tablet PO 10 mg DAILY KATY Administration Enoxaparin Sodium 40 mg 07/29/24 09:00 07/29/24 09:59 Enoxaparin 40 Mg/0.4 Ml Syringe SUB-Q 40 mg DAILY KATY Administration Ferrous Sulfate 325 mg 07/29/24 12:00 07/29/24 13:08 Ferrous Sulfate [address] BY MOUTH 325 mg DAILY@1200 KATY Administration Folic Acid 0.4 mg 07/29/24 09:00 07/29/24 09:58 Folic Acid 0.4 Mg Tablet PO 0.4 mg DAILY KATY Administration Furosemide 20 mg 07/29/24 09:00 07/29/24 09:57 Furosemide 20 Mg Tablet PO 20 mg DAILY KATY Administration Milrinone Lactate 20 mg/ 100 mls @ 1.9 mls/hr 07/28/24 21:00 07/29/24 16:23 Dextrose IV CONT 1.9 mls/hr .Q24H KATY Infusion Lorazepam 2 mg 07/28/24 20:25 Lorazepam Inj (*Crx) 2 Mg/Ml Vial IV PUSH Q2H PRN CIWA > 15 Lorazepam 2 mg 07/28/24 23:53 Lorazepam (*Crx) 1 Mg Tablet PO Q4H PRN anxiety Losartan Potassium 12.5 mg 07/29/24 09:00 07/29/24 10:47 Losartan Potassium 12.5 Mg Tablet PO 12.5 mg DAILY KATY Administration Melatonin 10 mg 07/29/24 21:00 Melatonin 5 Mg Tablet PO HS KATY Midodrine 5 mg 07/28/24 23:56 Midodrine Hcl 2.5 Mg Tablet PO DAILY PRN low blood pressure Miscellaneous Information 0 each 07/29/24 00:01 Midodrine Clarify Only Giving Daily Prn And Specify Low Blood Pressure XX 08/28/24 00:00 CLARIFY KATY Multivitamins/Calcium 1 tablet 07/29/24 09:00 07/29/24 09:58 Therapeutic Multivitamins/Minerals Tab (*Bkc) PO 1 tablet QAM KATY Administration Nicotine 1 patch 07/28/24 20:40 07/29/24 09:59 Nicotine (*Pbkc) 21 Mg Patch TRANSDERM 1 patch DAILY KATY Administration Nonformulary 1 each 07/29/24 00:06 Nutritional XX 07/30/24 00:05 Supplementnonformula PRN PRN ry Drug (Biotin 10, PROTOCOL 000 Mcg Capsule) Ondansetron HCl 4 mg 07/28/24 19:44 07/29/24 03:58 Ondansetron Inj 4 Mg/2 Ml Vial IV PUSH 4 mg Q6H PRN Administration Nausea And Vomiting Pantoprazole Sodium 40 mg 07/29/24 09:00 07/29/24 09:58 Pantoprazole 40 Mg Tablet PO 40 mg Q12HR KATY Administration Sodium Chloride 2 ml 07/29/24 06:00 07/29/24 13:11 Saline Lock Flush IV PUSH 2 ml Q8HR KATY Administration Spironolactone 12.5 mg 07/29/24 09:00 07/29/24 09:58 Spironolactone 12.5 Mg Tablet PO 12.5 mg DAILY KATY Administration Thiamine HCl 300 mg 07/29/24 09:00 07/29/24 09:57 Thiamine Hcl 100 Mg Tablet PO 300 mg QAM KATY Administration Zolpidem Tartrate 10 mg 07/28/24 23:53 07/29/24 01:08 Zolpidem Tartrate (*Crx) 5 Mg Tablet PO 10 mg HS PRN Administration insomnia Radiology Results: ITS Impressions Chest X-Ray 07/28/24 20:45 IMPRESSION: No acute cardiopulmonary pathology. Labs Labs: Laboratory Results - last 24 hr 07/28/24 07/28/24 07/28/24 17:30 20:00 20:00 WBC 9.8 RBC 4.26 L Hgb 12.8 L Hct 39.3 L MCV 92.3 MCH 30.0 MCHC 32.6 RDW 15.5 H Plt Count 388 H D MPV 8.6 Immature Gran % (Auto) 0.4 Neut % (Auto) 52.1 Lymph % (Auto) 33.9 [place] % (Auto) 12.6 H Eos % (Auto) 0.4 Baso % (Auto) 0.6 Lymph # (Auto) 3.33 H [place] # (Auto) 1.2 H Eos # (Auto) 0.0 Baso # (Auto) 0.1 Abs Immat Gran (auto) 0.04 H Absolute Neuts (auto) 5.1 Absolute Nucleated RBC 0.000 Nucleated RBC % 0.0 PT 12.0 INR 0.8 APTT 30.5 Sodium 143 Potassium 3.7 Chloride 95 L Carbon Dioxide 22 Anion Gap 26 H BUN 16 D Creatinine 0.92 Estim Creat Clear Calc 88 Estimated GFR > 60 Glucose 113 H POC Capillary Glucose Calcium 9.1 Magnesium 2.3 Cancelled Total Bilirubin 0.5 AST 63 H ALT 38 Alkaline Phosphatase 80 Troponin I 0.051 H* 0.053 H* NT-Pro-B Natriuret Pep 613 H Total Protein 8.0 Albumin 5.3 H Lipase 23 Nasal MRSA (PCR) Ethyl Alcohol 397 H* 07/28/24 07/28/24 07/29/24 23:18 23:40 01:12 WBC RBC Hgb Hct MCV MCH MCHC RDW Plt Count MPV Immature Gran % (Auto) Neut % (Auto) Lymph % (Auto) [place] % (Auto) Eos % (Auto) Baso % (Auto) Lymph # (Auto) [place] # (Auto) Eos # (Auto) Baso # (Auto) Abs Immat Gran (auto) Absolute Neuts (auto) Absolute Nucleated RBC Nucleated RBC % PT INR APTT Sodium Potassium Chloride Carbon Dioxide Anion Gap BUN Creatinine Estim Creat Clear Calc Estimated GFR Glucose POC Capillary Glucose 263 H Calcium Magnesium Total Bilirubin AST ALT Alkaline Phosphatase Troponin I 0.059 H* NT-Pro-B Natriuret Pep Total Protein Albumin Lipase Nasal MRSA (PCR) Not detected Ethyl Alcohol 07/29/24 07/29/24 07/29/24 05:58 07:40 11:31 WBC 9.3 RBC 3.29 L Hgb 10.1 L Hct 30.9 L MCV 93.9 MCH 30.7 MCHC 32.7 RDW 15.4 H Plt Count 245 MPV 8.8 Immature Gran % (Auto) 0.2 Neut % (Auto) 53.9 Lymph % (Auto) 27.4 [place] % (Auto) 16.7 H Eos % (Auto) 1.4 Baso % (Auto) 0.4 Lymph # (Auto) 2.55 [place] # (Auto) 1.6 H Eos # (Auto) 0.1 Baso # (Auto) 0.0 Abs Immat Gran (auto) 0.02 Absolute Neuts (auto) 5.0 Absolute Nucleated RBC 0.000 Nucleated RBC % 0.0 PT INR APTT Sodium 133 L Potassium 3.4 Chloride 87 L Carbon Dioxide 33 H Anion Gap 13 H BUN 20 Creatinine 0.85 Estim Creat Clear Calc 91 Estimated GFR > 60 Glucose 137 H POC Capillary Glucose 116 H 169 H Calcium 8.5 Magnesium 2.1 Total Bilirubin 1.0 AST 58 ALT 36 Alkaline Phosphatase 53 Troponin I 0.049 H* NT-Pro-B Natriuret Pep Total Protein 7.0 Albumin 4.3 Lipase Nasal MRSA (PCR) Ethyl Alcohol 07/29/24 16:11 WBC RBC Hgb Hct MCV MCH MCHC RDW Plt Count MPV Immature Gran % (Auto) Neut % (Auto) Lymph % (Auto) [place] % (Auto) Eos % (Auto) Baso % (Auto) Lymph # (Auto) [place] # (Auto) Eos # (Auto) Baso # (Auto) Abs Immat Gran (auto) Absolute Neuts (auto) Absolute Nucleated RBC Nucleated RBC % PT INR APTT Sodium Potassium Chloride Carbon Dioxide Anion Gap BUN Creatinine Estim Creat Clear Calc Estimated GFR Glucose POC Capillary Glucose 117 H Calcium Magnesium Total Bilirubin AST ALT Alkaline Phosphatase Troponin I NT-Pro-B Natriuret Pep Total Protein Albumin Lipase Nasal MRSA (PCR) Ethyl Alcohol
[2024-07-30] VITALS (17 sets, daily range): BP systolic 95–110; BP diastolic 62–78; PULSE 87–121; RESP 14–18; TEMP 36.6–37.1; O2SAT 95–100
[2024-07-30] MEDS: CYCLOBENZAPRINE HCL 5 MG TABLET PO ×5 (00:32→23:06)
[2024-07-30] MEDS: ONDANSETRON INJ 4 MG/2 ML VIAL IV PUSH ×2 (00:35→06:16)
[2024-07-30] MEDS: HYDROcodone/acetaminophen (*CRX) 10-325 MG TABLET 1 TAB PO ×5 (02:24→23:04)
[2024-07-30 05:57] LABS: Hematocrit 35.5 % (42.0-52.0); Mean Corpuscular Hemoglobin 29.5 pg (26-34); Mean Corpuscular Volume 95.2 fl (80-100); Mean Platelet Volume 8.7 fl (7.4-10.4); Platelet Count Result 200 k/mm3 (150-375); Red Blood Count 3.73 M/mm3 (4.6-6.20); Red Cell Distribution Width 15.1 % (11.5-14.5); White Blood Count 4.9 K/mm3 (4.5-10.0)
[2024-07-30 06:09] LABS: Alanine Aminotransferase 41 U/L (6-50); Albumin Level 4.3 g/dL (3.5-5.1); Alkaline Phosphatase 65 U/L (38-126); Aspartate Amino Transferase 66 U/L (17-59); Bilirubin,Total 0.8 mg/dL (0.2-1.3); Blood Urea Nitrogen 22 mg/dL (9-20); Calcium 9.2 mg/dL (8.4-10.2); Carbon Dioxide > 40 mmol/L (22-30); Chloride 85 mmol/L (98-107); Estimated CRCL calculation 94 ml/min; Estimated Glomerular Filt Rate > 60; Glucose 107 mg/dL (65-110); Magnesium 2.3 mg/dL (1.6-2.3); Potassium 3.5 mmol/L (3.4-5.0); Sodium 133 mmol/L (137-145)
[2024-07-30] MEDS: SALINE LOCK FLUSH 2 ML IV PUSH ×3 (06:15→21:11)
--- NOTE | 2024-07-30 07:54 | P.CDI_ITS ---
CDI Query Clarification Request BMI: 18.0 Nutritional Diagnostic Statement: Please refer to the comprehensive nutrition assessment for further information. If you agree with diagnosis of Severe protein calorie malnutrition related to chronic dilated cardiomyopathy as evidenced by intakes <75% needs >1 month; severe muscle wasting to temporalis, shoulders; moderate fat loss to buccal fat pads. Please specify severity if known: * Mild * Moderate * Severe * Other/Unknown
[2024-07-30] MEDS: THERAPEUTIC MULTIVITAMINS/MINERALS TAB (*BKC) 1 TABLET PO (09:22)
[2024-07-30] MEDS: PANTOPRAZOLE 40 MG TABLET PO ×2 (09:22→21:11)
[2024-07-30] MEDS: NICOTINE (*PBKC) 21 MG PATCH 1 PATCH TRANSDERM (09:22)
[2024-07-30] MEDS: THIAMINE HCL 100 MG TABLET 300 MG PO (09:22)
[2024-07-30] MEDS: FOLIC ACID 0.4 MG TABLET PO (09:22)
[2024-07-30] MEDS: LOSARTAN POTASSIUM 12.5 MG TABLET PO (09:23)
[2024-07-30] MEDS: ENOXAPARIN 40 MG/0.4 ML SYRINGE SUB-Q (09:23)
[2024-07-30] MEDS: clonazePAM (*CRX) 0.5 MG TABLET 2 MG PO ×2 (09:23→17:36)
[2024-07-30] MEDS: SPIRONOLACTONE 12.5 MG TABLET PO (09:23)
[2024-07-30] MEDS: FUROSEMIDE 20 MG TABLET PO (09:23)
[2024-07-30] MEDS: EMPAGLIFLOZIN 10 MG TABLET PO (09:23)
--- NOTE | 2024-07-30 10:55 | P.PNCA_ITS ---
Progress Note: A&P Assessment and Plan (1) Heart failure with reduced ejection fraction: Code(s): I50.20 - Unspecified systolic (congestive) heart failure Status: Acute Plan 34-year-old man with nonischemic cardiomyopathy (the to be secondary to alcohol abuse) following at [facility] advanced heart failure team (complicated previous admission requiring ECMO and eventual discharge to hospice where it appears he developed opioid dependence) and Dr. Mcelroy and chronic opioid dependence presents with chest pain and shortness of breath Chest pain -on review of his records, it appears that he coronary angiography performed on January of 2024 which showed angiographically disease free coronaries -no further ischemic evaluation warranted at this time especially in light of his clinical course Acute on chronic systolic heart failure -continue his outpatient milrinone infusion -will order him a one time dose Lasix 20mg IV push as he still has orthopnea and some crackles on exam -continue Jardiance, losartan, and spironolactone -no beta blockers given that he is inotrope dependent -Recommended he fill his ivabradine prescription which he intends to do Troponin elevation -mild and trend in consistent with acute coronary syndrome -more consistent with his chronic cardiomyopathy Chronic pain -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 Has not had bowel movement since admi ssion. He denies any chest pain. Review of Systems Review of Systems: All systems reviewed & are unremarkable except as noted in HPI and below Cardiovascular: Cardiovascular: Reports as per HPI Respiratory: Respiratory: Reports as per HPI Exam Const: General: comfortable HENMT: Mouth: Yes moist mucous membranes Eyes: EOM: EOMs intact bilaterally Neck: Neck: no JVD Resp: Effort & Inspection: normal respiratory effort Auscultation: not clear to auscultation bilaterally and crackles on the right at the base Cardio: Rate: tachycardic Rhythm: regular rhythm Heart sounds: no murmurs Neuro: Speech: normal speech Extrem: General: no pedal edema Objective Data Vital Signs Vital Signs: Vital Signs - 24 hr 07/29/24 12:00 07/29/24 12:00 07/29/24 12:00 Temperature 36.8 C Pulse Rate 102 H 102 H 103 H Pulse Rate [Apical] Respiratory Rate 12 Blood Pressure 117/79 117/79 Pulse Oximetry 99 Oxygen Delivery Fraction of Inspired Oxygen 07/29/24 14:00 07/29/24 14:00 07/29/24 14:28 Temperature 36.4 C Pulse Rate 94 98 98 Pulse Rate [Apical] Respiratory Rate 16 Blood Pressure 106/74 106/74 Pulse Oximetry 96 Oxygen Delivery Fraction of Inspired Oxygen 07/29/24 15:45 07/29/24 16:00 07/29/24 16:23 Temperature 37.1 C Pulse Rate 99 92 99 Pulse Rate [Apical] Respiratory Rate 16 Blood Pressure 105/75 105/75 Pulse Oximetry 98 Oxygen Delivery Fraction of Inspired Oxygen 07/29/24 18:00 07/29/24 18:00 07/29/24 18:12 Temperature 36.7 C Pulse Rate 96 91 97 Pulse Rate [Apical] Respiratory Rate 16 Blood Pressure 105/76 105/76 Pulse Oximetry 98 Oxygen Delivery Fraction of Inspired Oxygen 07/29/24 19:53 07/29/24 20:00 07/29/24 20:00 Temperature 36.8 C Pulse Rate 98 Pulse Rate [Apical] 99 Respiratory Rate 16 Blood Pressure 105/64 Pulse Oximetry 98 Oxygen Delivery Room Air Fraction of Inspired Oxygen 07/29/24 20:00 07/29/24 20:00 07/29/24 20:48 Temperature Pulse Rate 98 98 Pulse Rate [Apical] Respiratory Rate Blood Pressure 105/64 Pulse Oximetry 98 Oxygen Delivery Room Air Fraction of Inspired Oxygen 21 07/29/24 22:00 07/29/24 22:00 07/29/24 22:00 Temperature Pulse Rate 95 95 97 Pulse Rate [Apical] Respiratory Rate Blood Pressure 105/69 105/69 Pulse Oximetry Oxygen Delivery Fraction of Inspired Oxygen 07/29/24 22:30 07/29/24 23:24 07/29/24 23:30 Temperature 36.6 C Pulse Rate 97 94 96 Pulse Rate [Apical] Respiratory Rate 16 Blood Pressure 97/62 L Pulse Oximetry 97 Oxygen Delivery Fraction of Inspired Oxygen 07/30/24 00:00 07/30/24 00:00 07/30/24 00:00 Temperature Pulse Rate 94 Pulse Rate [Apical] 99 Respiratory Rate Blood Pressure Pulse Oximetry Oxygen Delivery Room Air Fraction of Inspired Oxygen 07/30/24 00:00 07/30/24 02:00 07/30/24 02:00 Temperature Pulse Rate 96 94 89 Pulse Rate [Apical] Respiratory Rate Blood Pressure 97/62 L 103/63 Pulse Oximetry Oxygen Delivery Fraction of Inspired Oxygen 07/30/24 02:00 07/30/24 03:35 07/30/24 04:00 Temperature 36.6 C Pulse Rate 94 90 Pulse Rate [Apical] 87 Respiratory Rate 16 Blood Pressure 103/63 110/68 Pulse Oximetry 95 Oxygen Delivery Fraction of Inspired Oxygen 07/30/24 04:00 07/30/24 04:00 07/30/24 04:00 Temperature Pulse Rate 87 87 Pulse Rate [Apical] Respiratory Rate Blood Pressure 110/68 Pulse Oximetry Oxygen Delivery Room Air Fraction of Inspired Oxygen 07/30/24 05:56 07/30/24 06:00 07/30/24 06:00 Temperature Pulse Rate 87 87 87 Pulse Rate [Apical] Respiratory Rate Blood Pressure 106/70 106/70 Pulse Oximetry Oxygen Delivery Fraction of Inspired Oxygen 07/30/24 07:40 07/30/24 10:00 Temperature 37.1 C Pulse Rate 121 H 96 Pulse Rate [Apical] Respiratory Rate 14 16 Blood Pressure 106/78 101/64 Pulse Oximetry 100 98 Oxygen Delivery Fraction of Inspired Oxygen Intake/Output Intake/Output: Intake & Output 07/27/24 07/28/24 07/29/24 07/30/24 23:59 23:59 23:59 23:59 Intake Total 2025.6 845.2 Output Total 1800 Balance 225.6 845.2 Meds/Results Medications: Active Medications Generic Name Dose Route Start Last Admin Trade Name Freq PRN Reason Stop Dose Admin Acetaminophen 650 mg 07/28/24 20:25 Acetaminophen 325 Mg Tablet PO Q4H PRN Mild Pain (1-5) Or Fever Hydrocodone Bitart/Acetaminophen 1 tab 07/28/24 23:53 07/30/24 06:15 Hydrocodone/Acetaminophen (*Crx) 10-325 Mg Tablet PO 1 tab Q4H PRN Administration Pain Rated 6 or Greater Clonazepam 2 mg 07/29/24 09:00 07/30/24 09:23 Clonazepam (*Crx) 0.5 Mg Tablet PO 2 mg BID KATY Administration Cyclobenzaprine HCl 5 mg 07/29/24 00:00 07/30/24 06:15 Cyclobenzaprine Hcl 5 Mg Tablet PO 5 mg Q6HR KATY Administration Docusate Sodium 100 mg 07/30/24 21:00 Docusate Sodium 100 Mg Capsule PO Q12HR KATY Empagliflozin 10 mg 07/29/24 09:00 07/30/24 09:23 Empagliflozin 10 Mg Tablet PO 10 mg DAILY KATY Administration Enoxaparin Sodium 40 mg 07/29/24 09:00 07/30/24 09:23 Enoxaparin 40 Mg/0.4 Ml Syringe SUB-Q 40 mg DAILY KATY Administration Ferrous Sulfate 325 mg 07/29/24 12:00 07/29/24 13:08 Ferrous Sulfate [address] BY MOUTH 325 mg DAILY@1200 KATY Administration Folic Acid 0.4 mg 07/29/24 09:00 07/30/24 09:22 Folic Acid 0.4 Mg Tablet PO 0.4 mg DAILY KATY Administration Furosemide 20 mg 07/29/24 09:00 07/30/24 09:23 Furosemide 20 Mg Tablet PO 20 mg DAILY KATY Administration Milrinone Lactate 20 mg/ 100 mls @ 1.9 mls/hr 07/28/24 21:00 07/30/24 06:00 Dextrose IV CONT 1.9 mls/hr .Q24H KATY Infusion Lorazepam 2 mg 07/28/24 20:25 Lorazepam Inj (*Crx) 2 Mg/Ml Vial IV PUSH Q2H PRN CIWA > 15 Lorazepam 2 mg 07/28/24 23:53 07/29/24 17:10 Lorazepam (*Crx) 1 Mg Tablet PO 2 mg Q4H PRN Administration anxiety Losartan Potassium 12.5 mg 07/29/24 09:00 07/30/24 09:23 Losartan Potassium 12.5 Mg Tablet PO 12.5 mg DAILY KATY Administration Melatonin 10 mg 07/29/24 21:00 07/29/24 20:19 Melatonin 5 Mg Tablet PO 10 mg HS KATY Administration Midodrine 5 mg 07/28/24 23:56 Midodrine Hcl 2.5 Mg Tablet PO DAILY PRN low blood pressure Miscellaneous Information 0 each 07/29/24 00:01 07/30/24 04:39 Midodrine Clarify Only Giving Daily Prn And Specify Low Blood Pressure XX 08/28/24 00:00 Not Given CLARIFY KATY Multivitamins/Calcium 1 tablet 07/29/24 09:00 07/30/24 09:22 Therapeutic Multivitamins/Minerals Tab (*Bkc) PO 1 tablet QAM KATY Administration Nicotine 1 patch 07/28/24 20:40 07/30/24 09:22 Nicotine (*Pbkc) 21 Mg Patch TRANSDERM 1 patch DAILY KATY Administration Ondansetron HCl 4 mg 07/28/24 19:44 07/30/24 06:16 Ondansetron Inj 4 Mg/2 Ml Vial IV PUSH 4 mg Q6H PRN Administration Nausea And Vomiting Pantoprazole Sodium 40 mg 07/29/24 09:00 07/30/24 09:22 Pantoprazole 40 Mg Tablet PO 40 mg Q12HR KATY Administration Sodium Chloride 2 ml 07/29/24 06:00 07/30/24 06:15 Saline Lock Flush IV PUSH 2 ml Q8HR KATY Administration Spironolactone 12.5 mg 07/29/24 09:00 07/30/24 09:23 Spironolactone 12.5 Mg Tablet PO 12.5 mg DAILY KATY Administration Thiamine HCl 300 mg 07/29/24 09:00 07/30/24 09:22 Thiamine Hcl 100 Mg Tablet PO 300 mg QAM KATY Administration Zolpidem Tartrate 10 mg 07/28/24 23:53 07/29/24 20:27 Zolpidem Tartrate (*Crx) 5 Mg Tablet PO 10 mg HS PRN Administration insomnia Radiology Results: ITS Impressions Chest X-Ray 07/28/24 20:45 IMPRESSION: No acute cardiopulmonary pathology. Labs Labs: Laboratory Results - last 24 hr 07/29/24 07/29/24 07/30/24 11:31 16:11 05:46 WBC 4.9 RBC 3.73 L Hgb 11.0 L Hct 35.5 L MCV 95.2 MCH 29.5 MCHC 31.0 L RDW 15.1 H Plt Count 200 MPV 8.7 Immature Gran % (Auto) Not Reportable Neut % (Auto) Not Reportable Lymph % (Auto) Not Reportable [place] % (Auto) Not Reportable Eos % (Auto) Not Reportable Baso % (Auto) Not Reportable Lymph # (Auto) Not Reportable [place] # (Auto) Not Reportable Eos # (Auto) Not Reportable Baso # (Auto) Not Reportable Abs Immat Gran (auto) Not Reportable Absolute Neuts (auto) Not Reportable Absolute Nucleated RBC Not Reportable Nucleated RBC % Not Reportable Sodium 133 L Potassium 3.5 Chloride 85 L Carbon Dioxide > 40 H Anion Gap BUN 22 H Creatinine 0.82 Estim Creat Clear Calc 94 Estimated GFR > 60 Glucose 107 POC Capillary Glucose 169 H 117 H Calcium 9.2 Magnesium 2.3 Total Bilirubin 0.8 AST 66 H ALT 41 Alkaline Phosphatase 65 Total Protein 7.0 Albumin 4.3 Quality VTE Prophylaxis VTE prophylaxis: pharmacologic ordered
--- NOTE | 2024-07-30 11:13 | PC.NURSE ---
On 07/30/24, the student, [Anam German], provided care and completed [facility] documentation on this patient. I have reviewed the student's documentation and agree with the findings.
[2024-07-30] MEDS: DOCUSATE SODIUM 100 MG CAPSULE PO ×2 (11:34→21:11)
[2024-07-30] MEDS: FERROUS SULFATE 325 MG TABLET DR BY MOUTH (11:34)
[2024-07-30] MEDS: FUROSEMIDE INJ 40 MG/4 ML VIAL 20 MG IV PUSH (11:41)
[2024-07-30] MEDS: POTASSIUM CHLORIDE 20 MEQ PACKET (FOR LIQUID) PO (11:41)
[2024-07-30 11:47] LABS: Glucose Point of Care 300 mg/dl (65-105)
--- NOTE | 2024-07-30 14:12 | P.PNIM_ITS ---
Progress Note: A&P Assessment and Plan (1) Dilated cardiomyopathy secondary to alcohol: Code(s): I42.6 - Alcoholic cardiomyopathy Status: Acute Assessment and Plan: Patient presents with chest pain after drinking alcohol. Echo from 01/30/2024 with EF 15-20% and normal LV diastolic fxn. * Of note, Patient was transferred out of [facility] on 02/02/2024 for cardiogenic shock. At that time he was supported in the ICU on Levophed and dopamine infusions. He was also intubated. He was sent to [facility] on 02/02/24 in their cardiac ICU and was placed on Impella and ECMO. Was sent home on hospice. Patient revoked hospice back in April and was seeking placement on heart transplant list. * Last EF was up to 39% according to patient report * Patient follows with Dr. Mahmood at [facility] and Dr. Mcelroy here at [place]. Patient presents back here for CP. Pro BNP 613, Troponin 0.051>0.053 * He came in on a Milrinone infusion which was continued here. * Recently prescribed Ivabradine 5 mg daily however he has not picked this up from his pharmacy yet, will defer to [facility] [employer] * Continue Jardiance, Spironolactone, Losartan, and Lasix * He states he has been compliant with his medications and that only his narcotics was not accessible recently due to the move * Midodrine 5 mg ordered PRN for hypotension * Admitted to IMU for closer monitoring and Cardiology consulted, appreciate their input * Being treated with intermittent Lasix IV. Follow (2) Heart failure with reduced ejection fraction: Code(s): I50.20 - Unspecified systolic (congestive) heart failure Status: Acute Assessment and Plan: As above (3) Alcoholism: Code(s): F10.20 - Alcohol dependence, uncomplicated Status: Chronic Assessment and Plan: Patient presumably has been sober since his hospitalization in January up until the day of admission. * ETOH 397 on arrival, patient admits to drinking Vodka today. He states he has abstained from alcohol for the past 6 months prior to today. * CIWA protocol ordered. CIWA was 9 initally but has improved since admission * Thiamine 300 mg daily and Multivitamin ordered * Continue folic acid (4) Chest pain: Qualifiers: Chest pain type: unspecified Qualified Code(s): R07.9 - Chest pain, unspecified Code(s): R07.9 - Chest pain, unspecified Status: Acute Assessment and Plan: Reporting chest pain that has been ongoing for the past 3 days * Troponin peaked 0.059 * Morphine 2 mg ordered as needed for chest pain but now stopped * Aspirin 324 mg given * Cardiology consulted * Has had [facility] with known clean coronaries so suspect elevated trop related to CMP Follow (5) Hepatic steatosis: Code(s): K76.0 - Fatty (change of) liver, not elsewhere classified Status: Acute Assessment and Plan: Secondary to alcohol abuse * AST 63, ALT 38 * Continue to trend (6) Tobacco abuse: Code(s): Z72.0 - Tobacco use Status: Acute Assessment and Plan: * Current every day smoker, 1 pack every 3 days. He reports he quit for 4 months and recently restarted. * Nicotine patch ordered * Encourage cesstion (7) Peripheral neuropathy: Code(s): G62.9 - Polyneuropathy, unspecified Status: Acute Assessment and Plan: States he developed severe neuropathy after being on ECMO. He has tried Lyrica and Neurontin in the past without any significant relief. * [place] 10/325 ordered, home dose for pain 6-10 * Continue Flexeril. * Recommend pain management. Continue PT/OT (8) Anxiety: Code(s): F41.9 - Anxiety disorder, unspecified Status: Acute Assessment and Plan: * Continue clonazepam home dose. * Stop Ativan prn for anxiety. Ativan available for w/d symptoms. (9) Insomnia: Code(s): G47.00 - Insomnia, unspecified Status: Acute Assessment and Plan: * Continue melatonin and Ambien (10) Diabetes mellitus: Code(s): E11.9 - Type 2 diabetes mellitus without complications Status: Acute Assessment and Plan: The patient's blood glucose was reviewed on 07/30 Glucose remains well controlled. Continue AccuCheks and add sliding scale. Hypoglycemia protocol available as needed. Continue to follow. Check A1c. (11) Severe protein-calorie malnutrition: Code(s): E43 - Unspecified severe protein-calorie malnutrition Status: Acute Assessment and Plan: Patient with severe protein calorie malnutrition related to chronic myopathy as evidenced by intake less than 75% of needs for greater than 1 month, severe muscle wasting to temporalis and shoulder muscles and moderate fat loss to buccal fat pads. Dietary consulted. Supplements ordered. Plan DVT Prophylaxis - Lovenox Code status - Full Subjective Date/time seen: 07/30/24 14:12 Interval history: 34yo male with hx of alcoholism and alcohol induced CMP here for chest pain after drinking 750ml of vodka. Having palpable and positional chest pain last night. Still SOB at times. Cold sweats last night. No fever. Exam Narrative: AF 98.6 104/63 102 18 100% ra Gen - NARD Chest - CTA bilaterally, nml RR CV - RRR S1/S2. Tele showing PVCs. Abd - Soft, NT/ND, Positive BS Ext - No pedal edema. 2+ PT pulses. Psych - Nml mood and affect Skin - Warm and dry Objective Data Vital Signs Vital Signs: Vital Signs - 24 hr 07/29/24 14:28 07/29/24 15:45 07/29/24 16:00 Temperature 98.8 F Pulse Rate 98 99 92 Pulse Rate [Apical] Respiratory Rate 16 Blood Pressure 106/74 105/75 Pulse Oximetry 98 Oxygen Delivery Fraction of Inspired Oxygen 07/29/24 16:23 07/29/24 18:00 07/29/24 18:00 Temperature 98.0 F Pulse Rate 99 96 91 Pulse Rate [Apical] Respiratory Rate 16 Blood Pressure 105/75 105/76 Pulse Oximetry 98 Oxygen Delivery Fraction of Inspired Oxygen 07/29/24 18:12 07/29/24 19:53 07/29/24 20:00 Temperature 98.3 F Pulse Rate 97 98 Pulse Rate [Apical] 99 Respiratory Rate 16 Blood Pressure 105/76 105/64 Pulse Oximetry 98 Oxygen Delivery Fraction of Inspired Oxygen 07/29/24 20:00 07/29/24 20:00 07/29/24 20:00 Temperature Pulse Rate 98 98 Pulse Rate [Apical] Respiratory Rate Blood Pressure 105/64 Pulse Oximetry Oxygen Delivery Room Air Fraction of Inspired Oxygen 07/29/24 20:48 07/29/24 22:00 07/29/24 22:00 Temperature Pulse Rate 95 95 Pulse Rate [Apical] Respiratory Rate Blood Pressure 105/69 105/69 Pulse Oximetry 98 Oxygen Delivery Room Air Fraction of Inspired Oxygen 21 07/29/24 22:00 07/29/24 22:30 07/29/24 23:24 Temperature Pulse Rate 97 97 94 Pulse Rate [Apical] Respiratory Rate Blood Pressure Pulse Oximetry Oxygen Delivery Fraction of Inspired Oxygen 07/29/24 23:30 07/30/24 00:00 07/30/24 00:00 Temperature 98 F Pulse Rate 96 Pulse Rate [Apical] 99 Respiratory Rate 16 Blood Pressure 97/62 L Pulse Oximetry 97 Oxygen Delivery Room Air Fraction of Inspired Oxygen 07/30/24 00:00 07/30/24 00:00 07/30/24 02:00 Temperature Pulse Rate 94 96 94 Pulse Rate [Apical] Respiratory Rate Blood Pressure 97/62 L 103/63 Pulse Oximetry Oxygen Delivery Fraction of Inspired Oxygen 07/30/24 02:00 07/30/24 02:00 07/30/24 03:35 Temperature 98 F Pulse Rate 89 94 90 Pulse Rate [Apical] Respiratory Rate 16 Blood Pressure 103/63 110/68 Pulse Oximetry 95 Oxygen Delivery Fraction of Inspired Oxygen 07/30/24 04:00 07/30/24 04:00 07/30/24 04:00 Temperature Pulse Rate 87 Pulse Rate [Apical] 87 Respiratory Rate Blood Pressure Pulse Oximetry Oxygen Delivery Room Air Fraction of Inspired Oxygen 07/30/24 04:00 07/30/24 05:56 07/30/24 06:00 Temperature Pulse Rate 87 87 87 Pulse Rate [Apical] Respiratory Rate Blood Pressure 110/68 106/70 Pulse Oximetry Oxygen Delivery Fraction of Inspired Oxygen 07/30/24 06:00 07/30/24 07:40 07/30/24 08:00 Temperature 98.8 F Pulse Rate 87 121 H 110 H Pulse Rate [Apical] Respiratory Rate 14 Blood Pressure 106/70 106/78 106/78 Pulse Oximetry 100 Oxygen Delivery Fraction of Inspired Oxygen 07/30/24 09:35 07/30/24 10:00 07/30/24 10:00 Temperature Pulse Rate 96 96 Pulse Rate [Apical] Respiratory Rate 16 Blood Pressure 101/64 101/64 Pulse Oximetry 98 Oxygen Delivery Room Air Fraction of Inspired Oxygen 07/30/24 12:00 07/30/24 12:00 Temperature 98.6 F Pulse Rate 102 H 102 H Pulse Rate [Apical] Respiratory Rate 18 Blood Pressure 104/63 104/63 Pulse Oximetry 100 Oxygen Delivery Fraction of Inspired Oxygen Intake/Output Intake/Output: Intake & Output 07/27/24 07/28/24 07/29/24 07/30/24 23:59 23:59 23:59 23:59 Intake Total 2025.6 1096.6 Output Total 1800 Balance 225.6 1096.6 Meds/Results Medications: Active Medications Generic Name Dose Route Start Last Admin Trade Name Freq PRN Reason Stop Dose Admin Acetaminophen 650 mg 07/28/24 20:25 Acetaminophen 325 Mg Tablet PO Q4H PRN Mild Pain (1-5) Or Fever Hydrocodone Bitart/Acetaminophen 1 tab 07/28/24 23:53 07/30/24 11:35 Hydrocodone/Acetaminophen (*Crx) 10-325 Mg Tablet PO 1 tab Q4H PRN Administration Pain Rated 6 or Greater Clonazepam 2 mg 07/29/24 09:00 07/30/24 09:23 Clonazepam (*Crx) 0.5 Mg Tablet PO 2 mg BID KATY Administration Cyclobenzaprine HCl 5 mg 07/29/24 00:00 07/30/24 11:34 Cyclobenzaprine Hcl 5 Mg Tablet PO 5 mg Q6HR KATY Administration Docusate Sodium 100 mg 07/30/24 21:00 Docusate Sodium 100 Mg Capsule PO Q12HR AKTY Empagliflozin 10 mg 07/29/24 09:00 07/30/24 09:23 Empagliflozin 10 Mg Tablet PO 10 mg DAILY KATY Administration Enoxaparin Sodium 40 mg 07/29/24 09:00 07/30/24 09:23 Enoxaparin 40 Mg/0.4 Ml Syringe SUB-Q 40 mg DAILY KATY Administration Ferrous Sulfate 325 mg 07/29/24 12:00 07/30/24 11:34 Ferrous Sulfate [address] BY MOUTH 325 mg DAILY@1200 KATY Administration Folic Acid 0.4 mg 07/29/24 09:00 07/30/24 09:22 Folic Acid 0.4 Mg Tablet PO 0.4 mg DAILY KATY Administration Furosemide 20 mg 07/29/24 09:00 07/30/24 09:23 Furosemide 20 Mg Tablet PO 20 mg DAILY KATY Administration Milrinone Lactate 20 mg/ 100 mls @ 1.9 mls/hr 07/28/24 21:00 07/30/24 12:00 Dextrose IV CONT 1.9 mls/hr .Q24H KATY Infusion Lorazepam 2 mg 07/28/24 20:25 Lorazepam Inj (*Crx) 2 Mg/Ml Vial IV PUSH Q2H PRN CIWA > 15 Lorazepam 2 mg 07/28/24 23:53 07/29/24 17:10 Lorazepam (*Crx) 1 Mg Tablet PO 2 mg Q4H PRN Administration anxiety Losartan Potassium 12.5 mg 07/29/24 09:00 07/30/24 09:23 Losartan Potassium 12.5 Mg Tablet PO 12.5 mg DAILY KATY Administration Melatonin 10 mg 07/29/24 21:00 07/29/24 20:19 Melatonin 5 Mg Tablet PO 10 mg HS KATY Administration Midodrine 5 mg 07/28/24 23:56 Midodrine Hcl 2.5 Mg Tablet PO DAILY PRN low blood pressure Miscellaneous Information 0 each 07/29/24 00:01 07/30/24 04:39 Midodrine Clarify Only Giving Daily Prn And Specify Low Blood Pressure XX 08/28/24 00:00 Not Given CLARIFY KATY Multivitamins/Calcium 1 tablet 07/29/24 09:00 07/30/24 09:22 Therapeutic Multivitamins/Minerals Tab (*Bkc) PO 1 tablet QAM KATY Administration Nicotine 1 patch 07/28/24 20:40 07/30/24 09:22 Nicotine (*Pbkc) 21 Mg Patch TRANSDERM 1 patch DAILY KATY Administration Ondansetron HCl 4 mg 07/28/24 19:44 07/30/24 06:16 Ondansetron Inj 4 Mg/2 Ml Vial IV PUSH 4 mg Q6H PRN Administration Nausea And Vomiting Pantoprazole Sodium 40 mg 07/29/24 09:00 07/30/24 09:22 Pantoprazole 40 Mg Tablet PO 40 mg Q12HR KATY Administration Sodium Chloride 2 ml 07/29/24 06:00 07/30/24 06:15 Saline Lock Flush IV PUSH 2 ml Q8HR KATY Administration Spironolactone 12.5 mg 07/29/24 09:00 07/30/24 09:23 Spironolactone 12.5 Mg Tablet PO 12.5 mg DAILY KATY Administration Thiamine HCl 300 mg 07/29/24 09:00 07/30/24 09:22 Thiamine Hcl 100 Mg Tablet PO 300 mg QAM KATY Administration Zolpidem Tartrate 10 mg 07/28/24 23:53 07/29/24 20:27 Zolpidem Tartrate (*Crx) 5 Mg Tablet PO 10 mg HS PRN Administration insomnia Radiology Results: ITS Impressions Chest X-Ray 07/28/24 20:45 IMPRESSION: No acute cardiopulmonary pathology. Labs Labs: Laboratory Results - last 24 hr 07/29/24 07/30/24 07/30/24 16:11 05:46 11:17 WBC 4.9 RBC 3.73 L Hgb 11.0 L Hct 35.5 L MCV 95.2 MCH 29.5 MCHC 31.0 L RDW 15.1 H Plt Count 200 MPV 8.7 Immature Gran % (Auto) Not Reportable Neut % (Auto) Not Reportable Lymph % (Auto) Not Reportable [place] % (Auto) Not Reportable Eos % (Auto) Not Reportable Baso % (Auto) Not Reportable Lymph # (Auto) Not Reportable [place] # (Auto) Not Reportable Eos # (Auto) Not Reportable Baso # (Auto) Not Reportable Abs Immat Gran (auto) Not Reportable Absolute Neuts (auto) Not Reportable Absolute Nucleated RBC Not Reportable Nucleated RBC % Not Reportable Sodium 133 L Potassium 3.5 Chloride 85 L Carbon Dioxide > 40 H Anion Gap BUN 22 H Creatinine 0.82 Estim Creat Clear Calc 94 Estimated GFR > 60 Glucose 107 POC Capillary Glucose 117 H 300 H Calcium 9.2 Magnesium 2.3 Total Bilirubin 0.8 AST 66 H ALT 41 Alkaline Phosphatase 65 Total Protein 7.0 Albumin 4.3
[2024-07-30 17:00] LABS: Glucose Point of Care 139 mg/dl (65-105)
[2024-07-30 19:48] LABS: Glucose Point of Care 264 mg/dl (65-105)
[2024-07-30] MEDS: MELATONIN 5 MG TABLET 10 MG PO (21:10)
[2024-07-30] MEDS: LORazepam (*CRX) 1 MG TABLET 2 MG PO (21:10)
[2024-07-30] MEDS: ZOLPIDEM TARTRATE (*CRX) 5 MG TABLET 10 MG PO (21:11)
[2024-07-30] MEDS: MORPHINE SULFATE (*CRX) 2 MG/ML INJ IV PUSH (21:11)
[2024-07-31] VITALS (10 sets, daily range): BP systolic 98–108; BP diastolic 58–76; PULSE 72–116; RESP 14–18; TEMP 36.3–36.9; O2SAT 98–100
[2024-07-31] MEDS: HYDROcodone/acetaminophen (*CRX) 10-325 MG TABLET 1 TAB PO ×3 (04:16→13:19)
[2024-07-31] MEDS: CYCLOBENZAPRINE HCL 5 MG TABLET PO ×2 (05:50→12:51)
[2024-07-31] MEDS: SALINE LOCK FLUSH 2 ML IV PUSH ×2 (06:44→13:20)
[2024-07-31] MEDS: MILRINONE LACTATE 20 MG in DEXTROSE 5% 80 ML IV CONT (06:48)
[2024-07-31 06:54] LABS: Basophils Percent Auto 0.8 % (0.2-1.2); Eosinophils Absolute Auto 0.2 K/mm3 (0-0.3); Hematocrit 34.4 % (42.0-52.0); Hemoglobin 10.9 g/dL (14.0-18.0); Immature Granulocyte Absolute 0.01 K/mm3 (0.00-0.031); Immature Granulocyte Percent A 0.2 % (0-0.5); Lymphocytes Absolute Auto 1.75 K/mm3 (0.9-3.2); Lymphocytes Percent Auto 36.5 % (18.3-44.2); Mean Corpuscular HGB Conc 31.7 g/dl (32-36); Mean Corpuscular Hemoglobin 30.6 pg (26-34); Mean Corpuscular Volume 96.6 fl (80-100); Mean Platelet Volume 9.4 fl (7.4-10.4); Monocytes Absolute Auto 0.4 K/mm3 (0.1-0.6); Monocytes Percent Auto 8.8 % (2.6-8.5); Neutrophils Absolute Auto 2.4 K/mm3 (1.3-6.7); Neutrophils Percent Auto 49.7 % (45.5-73.1); Platelet Count Result 158 k/mm3 (150-375); Red Blood Count 3.56 M/mm3 (4.6-6.20); White Blood Count 4.8 K/mm3 (4.5-10.0)
[2024-07-31 07:14] LABS: Alanine Aminotransferase 44 U/L (6-50); Albumin Level 4.2 g/dL (3.5-5.1); Alkaline Phosphatase 59 U/L (38-126); Aspartate Amino Transferase 55 U/L (17-59); Bilirubin,Total 0.6 mg/dL (0.2-1.3); Blood Urea Nitrogen 24 mg/dL (9-20); Calcium 9.7 mg/dL (8.4-10.2); Carbon Dioxide > 40 mmol/L (22-30); Chloride 87 mmol/L (98-107); Estimated CRCL calculation 94 ml/min; Estimated Glomerular Filt Rate > 60; Glucose 141 mg/dL (65-110); Magnesium 2.2 mg/dL (1.6-2.3); Potassium 3.9 mmol/L (3.4-5.0); Sodium 134 mmol/L (137-145)
[2024-07-31 08:04] LABS: Glucose Point of Care 153 mg/dl (65-105)
[2024-07-31] MEDS: PANTOPRAZOLE 40 MG TABLET PO (09:33)
[2024-07-31] MEDS: SPIRONOLACTONE 12.5 MG TABLET PO (09:33)
[2024-07-31] MEDS: LOSARTAN POTASSIUM 12.5 MG TABLET PO (09:33)
[2024-07-31] MEDS: ENOXAPARIN 40 MG/0.4 ML SYRINGE SUB-Q (09:33)
[2024-07-31] MEDS: THIAMINE HCL 100 MG TABLET 300 MG PO (09:34)
[2024-07-31] MEDS: EMPAGLIFLOZIN 10 MG TABLET PO (09:34)
[2024-07-31] MEDS: FOLIC ACID 0.4 MG TABLET PO (09:34)
[2024-07-31] MEDS: clonazePAM (*CRX) 0.5 MG TABLET 2 MG PO (09:35)
[2024-07-31] MEDS: THERAPEUTIC MULTIVITAMINS/MINERALS TAB (*BKC) 1 TABLET PO (09:35)
[2024-07-31] MEDS: FUROSEMIDE 20 MG TABLET PO (09:35)
[2024-07-31] MEDS: NICOTINE (*PBKC) 21 MG PATCH 1 PATCH TRANSDERM (09:36)
[2024-07-31] MEDS: DOCUSATE SODIUM 100 MG CAPSULE PO (09:36)
--- NOTE | 2024-07-31 12:01 | PCPTNOTE ---
Attempt to see at 1159, patient declines states he just talked to the doctor and he is getting discharged. Patient states he has no concerns about going home as far as functional mobility is concerned, just states he needs to take his time.
--- NOTE | 2024-07-31 12:20 | PM.PNCARD ---
Progress Note: A&P Assessment and Plan (1) Heart failure with reduced ejection fraction: Code(s): I50.20 - Unspecified systolic (congestive) heart failure Status: Acute Plan 34-year-old man with nonischemic cardiomyopathy (the to be secondary to alcohol abuse) following at [facility] advanced heart failure team (complicated previous admission requiring ECMO and eventual discharge to hospice where it appears he developed opioid dependence) and Dr. Mcelroy and chronic opioid dependence presents with chest pain and shortness of breath Chest pain -on review of his records, it appears that he coronary angiography performed on January of 2024 which showed angiographically disease free coronaries -no further ischemic evaluation warranted at this time especially in light of his clinical course Acute on chronic systolic heart failure -continue his outpatient milrinone infusion -through [facility], as patient is to start Corlanor -continue Jardiance, losartan, and spironolactone -no beta blockers given that he is inotrope dependent -Recommended he fill his ivabradine prescription Avoidance of alcohol and substance is highly important. Verbalized understanding. 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 No shortness of breath at rest. No chest pain. Review of Systems Review of Systems: All systems reviewed & are unremarkable except as noted in HPI and below ENT: Reports Normal hearing present Cardiovascular: Cardiovascular: Denies chest pain Respiratory: Respiratory: Denies hemoptysis Gastrointestinal: Gastrointestinal: Denies hematochezia Genitourinary: Genitourinary: Denies hematuria Integumentary/Breasts: Skin/Breast: Denies dry skin Exam Narrative: Appears stated age Const: General: comfortable and no acute distress HENMT: Mouth: Yes moist mucous membranes Eyes: General: appearance normal, both eyes and all related structures Sclera: sclerae normal Neck: Neck: supple and no JVD Resp: Effort & Inspection: normal respiratory effort Auscultation: not clear to auscultation bilaterally and crackles on the right at the base Cardio: Rate: tachycardic Rhythm: regular rhythm Heart sounds: no murmurs Skin: General skin exam: normal color Neuro: Speech: normal speech Extrem: General: no pedal edema Psych: Mental Status: mental status grossly normal Objective Data Vital Signs Vital Signs: Vital Signs - 24 hr 07/30/24 14:00 07/30/24 14:00 07/30/24 14:00 Temperature Pulse Rate 109 H 109 H 104 H Pulse Rate [Bilateral Pedal (Dorsalis Pedis) Palpation] Respiratory Rate 16 Blood Pressure 95/68 L 95/68 L Pulse Oximetry 97 Oxygen Delivery 07/30/24 15:20 07/30/24 16:00 07/30/24 16:00 Temperature Pulse Rate 94 Pulse Rate [Bilateral Pedal (Dorsalis Pedis) Palpation] Respiratory Rate Blood Pressure 100/67 Pulse Oximetry Oxygen Delivery Room Air Room Air 07/30/24 16:00 07/30/24 16:39 07/30/24 18:00 Temperature 37.1 C 36.7 C Pulse Rate 91 94 98 Pulse Rate [Bilateral Pedal (Dorsalis Pedis) Palpation] Respiratory Rate 14 16 Blood Pressure 100/67 100/67 Pulse Oximetry 100 98 Oxygen Delivery 07/30/24 18:00 07/30/24 18:00 07/30/24 20:00 Temperature 36.8 C Pulse Rate 94 98 98 Pulse Rate [Bilateral Pedal (Dorsalis Pedis) Palpation] Respiratory Rate 16 Blood Pressure 100/67 102/68 Pulse Oximetry 100 Oxygen Delivery 07/30/24 20:00 07/30/24 20:00 07/30/24 20:00 Temperature Pulse Rate 95 Pulse Rate [Bilateral Pedal (Dorsalis Pedis) Palpation] 96 Respiratory Rate Blood Pressure Pulse Oximetry Oxygen Delivery Room Air 07/30/24 20:00 07/30/24 21:59 07/30/24 22:00 Temperature 36.8 C Pulse Rate 96 96 92 Pulse Rate [Bilateral Pedal (Dorsalis Pedis) Palpation] Respiratory Rate 16 Blood Pressure 102/68 98/64 L Pulse Oximetry 98 Oxygen Delivery 07/30/24 22:00 07/31/24 00:00 07/31/24 00:00 Temperature 36.9 C Pulse Rate 92 91 Pulse Rate [Bilateral Pedal (Dorsalis Pedis) Palpation] Respiratory Rate 16 Blood Pressure 98/64 L 104/58 L Pulse Oximetry 98 Oxygen Delivery Room Air 07/31/24 00:00 07/31/24 00:00 07/31/24 02:00 Temperature Pulse Rate 95 91 87 Pulse Rate [Bilateral Pedal (Dorsalis Pedis) Palpation] Respiratory Rate 16 Blood Pressure 104/58 L 108/62 Pulse Oximetry 98 Oxygen Delivery 07/31/24 02:00 07/31/24 02:00 07/31/24 04:00 Temperature Pulse Rate 85 87 Pulse Rate [Bilateral Pedal (Dorsalis Pedis) Palpation] Respiratory Rate Blood Pressure 108/62 Pulse Oximetry Oxygen Delivery Room Air 07/31/24 04:00 07/31/24 04:00 07/31/24 04:00 Temperature 36.8 C Pulse Rate 88 88 95 Pulse Rate [Bilateral Pedal (Dorsalis Pedis) Palpation] Respiratory Rate 16 Blood Pressure 107/76 107/76 Pulse Oximetry 100 Oxygen Delivery 07/31/24 05:56 07/31/24 06:00 07/31/24 06:00 Temperature 36.9 C Pulse Rate 89 89 93 Pulse Rate [Bilateral Pedal (Dorsalis Pedis) Palpation] Respiratory Rate 18 Blood Pressure 104/74 104/74 Pulse Oximetry 98 Oxygen Delivery 07/31/24 06:48 07/31/24 06:48 07/31/24 08:00 Temperature 36.3 C L Pulse Rate 96 96 107 H Pulse Rate [Bilateral Pedal (Dorsalis Pedis) Palpation] Respiratory Rate 14 Blood Pressure 104/74 104/74 103/75 Pulse Oximetry 98 Oxygen Delivery 07/31/24 08:00 07/31/24 08:00 07/31/24 08:00 Temperature Pulse Rate 72 Pulse Rate [Bilateral Pedal (Dorsalis Pedis) Palpation] 72 Respiratory Rate Blood Pressure 103/75 Pulse Oximetry 98 Oxygen Delivery Room Air 07/31/24 08:00 07/31/24 10:00 07/31/24 10:00 Temperature Pulse Rate 111 H 108 H 108 H Pulse Rate [Bilateral Pedal (Dorsalis Pedis) Palpation] Respiratory Rate 16 Blood Pressure 107/71 107/71 Pulse Oximetry 98 Oxygen Delivery 07/31/24 10:00 Temperature Pulse Rate 101 H Pulse Rate [Bilateral Pedal (Dorsalis Pedis) Palpation] Respiratory Rate Blood Pressure Pulse Oximetry Oxygen Delivery Intake/Output Intake/Output: Intake & Output 07/28/24 07/29/24 07/30/24 07/31/24 23:59 23:59 23:59 23:59 Intake Total 2025.6 2145.6 535.9 Output Total 1800 2275 Balance 225.6 -129.4 535.9 Meds/Results Medications: Active Medications Generic Name Dose Route Start Last Admin Trade Name Freq PRN Reason Stop Dose Admin Acetaminophen 650 mg 07/28/24 20:25 Acetaminophen 325 Mg Tablet PO Q4H PRN Mild Pain (1-5) Or Fever Hydrocodone Bitart/Acetaminophen 1 tab 07/28/24 23:53 07/31/24 09:32 Hydrocodone/Acetaminophen (*Crx) 10-325 Mg Tablet PO 1 tab Q4H PRN Administration Pain Rated 6 or Greater Clonazepam 2 mg 07/29/24 09:00 07/31/24 09:35 Clonazepam (*Crx) 0.5 Mg Tablet PO 2 mg BID KATY Administration Cyclobenzaprine HCl 5 mg 07/29/24 00:00 07/31/24 05:50 Cyclobenzaprine Hcl 5 Mg Tablet PO 5 mg Q6HR KATY Administration Dextrose 12.5 gm 07/30/24 15:15 Dextrose 50% 25 Gm/50 Ml Syringe IV PUSH PRN PRN Hypoglycemia Protocol Docusate Sodium 100 mg 07/30/24 21:00 07/31/24 09:36 Docusate Sodium 100 Mg Capsule PO 100 mg Q12HR KATY Administration Empagliflozin 10 mg 07/29/24 09:00 07/31/24 09:34 Empagliflozin 10 Mg Tablet PO 10 mg DAILY KATY Administration Enoxaparin Sodium 40 mg 07/29/24 09:00 07/31/24 09:33 Enoxaparin 40 Mg/0.4 Ml Syringe SUB-Q 40 mg DAILY KATY Administration Ferrous Sulfate 325 mg 07/29/24 12:00 07/30/24 11:34 Ferrous Sulfate [address] BY MOUTH 325 mg DAILY@1200 KATY Administration Folic Acid 0.4 mg 07/29/24 09:00 07/31/24 09:34 Folic Acid 0.4 Mg Tablet PO 0.4 mg DAILY KATY Administration Furosemide 20 mg 07/29/24 09:00 07/31/24 09:35 Furosemide 20 Mg Tablet PO 20 mg DAILY KATY Administration Glucagon 1 mg 07/30/24 15:15 Glucagon For Inj 1 Mg Vial IM PRN PRN Hypoglycemia Protocol Glucose 15 gm 07/30/24 15:15 Glucose Oral Gel 15 Gm Of Glucse In 37.5 Gm Tube PO PRN PRN Hypoglycemia Protocol Milrinone Lactate 20 mg/ 100 mls @ 1.9 mls/hr 07/28/24 21:00 07/31/24 10:00 Dextrose IV CONT 1.9 mls/hr .Q24H KATY Infusion Dextrose 1,000 mls @ 100 mls/hr 07/30/24 15:15 Dextrose 5% 1,000 Ml IVPB PRN PRN Hypoglycemia Protocol Insulin Aspart 2 - 5 units 07/30/24 17:00 07/31/24 08:47 Insulin Aspart (*Bkc) 100 Units/Ml SUB-Q Not Given TIDWM KATY Protocol Lorazepam 2 mg 07/28/24 20:25 Lorazepam Inj (*Crx) 2 Mg/Ml Vial IV PUSH Q2H PRN CIWA > 15 Lorazepam 2 mg 07/28/24 23:53 07/30/24 21:10 Lorazepam (*Crx) 1 Mg Tablet PO 2 mg Q4H PRN Administration anxiety Losartan Potassium 12.5 mg 07/29/24 09:00 07/31/24 09:33 Losartan Potassium 12.5 Mg Tablet PO 12.5 mg DAILY KATY Administration Melatonin 10 mg 07/29/24 21:00 07/30/24 21:10 Melatonin 5 Mg Tablet PO 10 mg HS KATY Administration Midodrine 5 mg 07/28/24 23:56 Midodrine Hcl 2.5 Mg Tablet PO DAILY PRN low blood pressure Miscellaneous Information 0 each 07/29/24 00:01 07/31/24 03:00 Midodrine Clarify Only Giving Daily Prn And Specify Low Blood Pressure XX 08/28/24 00:00 Not Given CLARIFY KATY Multivitamins/Calcium 1 tablet 07/29/24 09:00 07/31/24 09:35 Therapeutic Multivitamins/Minerals Tab (*Bkc) PO 1 tablet QAM KATY Administration Nicotine 1 patch 07/28/24 20:40 07/31/24 09:36 Nicotine (*Pbkc) 21 Mg Patch TRANSDERM 1 patch DAILY KATY Administration Ondansetron HCl 4 mg 07/28/24 19:44 07/30/24 06:16 Ondansetron Inj 4 Mg/2 Ml Vial IV PUSH 4 mg Q6H PRN Administration Nausea And Vomiting Pantoprazole Sodium 40 mg 07/29/24 09:00 07/31/24 09:33 Pantoprazole 40 Mg Tablet PO 40 mg Q12HR KATY Administration Sodium Chloride 2 ml 07/29/24 06:00 07/31/24 06:44 Saline Lock Flush IV PUSH 2 ml Q8HR KATY Administration Spironolactone 12.5 mg 07/29/24 09:00 07/31/24 09:33 Spironolactone 12.5 Mg Tablet PO 12.5 mg DAILY KATY Administration Thiamine HCl 300 mg 07/29/24 09:00 07/31/24 09:34 Thiamine Hcl 100 Mg Tablet PO 300 mg QAM KATY Administration Zolpidem Tartrate 10 mg 07/28/24 23:53 07/30/24 21:11 Zolpidem Tartrate (*Crx) 5 Mg Tablet PO 10 mg HS PRN Administration insomnia Radiology Results: ITS Impressions Chest X-Ray 07/28/24 20:45 IMPRESSION: No acute cardiopulmonary pathology. Labs Labs: Laboratory Results - last 24 hr 07/30/24 07/30/24 07/31/24 16:26 19:42 06:43 WBC 4.8 RBC 3.56 L Hgb 10.9 L Hct 34.4 L MCV 96.6 MCH 30.6 MCHC 31.7 L RDW 15.0 H Plt Count 158 MPV 9.4 Immature Gran % (Auto) 0.2 Neut % (Auto) 49.7 Lymph % (Auto) 36.5 [place] % (Auto) 8.8 H Eos % (Auto) 4.0 Baso % (Auto) 0.8 Lymph # (Auto) 1.75 [place] # (Auto) 0.4 Eos # (Auto) 0.2 Baso # (Auto) 0.0 Abs Immat Gran (auto) 0.01 Absolute Neuts (auto) 2.4 Absolute Nucleated RBC 0.000 Nucleated RBC % 0.0 Sodium 134 L Potassium 3.9 Chloride 87 L Carbon Dioxide > 40 H Anion Gap BUN 24 H Creatinine 0.81 Estim Creat Clear Calc 94 Estimated GFR > 60 Glucose 141 H POC Capillary Glucose 139 H 264 H Calcium 9.7 Magnesium 2.2 Total Bilirubin 0.6 AST 55 ALT 44 Alkaline Phosphatase 59 Total Protein 7.0 Albumin 4.2 07/31/24 07:50 WBC RBC Hgb Hct MCV MCH MCHC RDW Plt Count MPV Immature Gran % (Auto) Neut % (Auto) Lymph % (Auto) [place] % (Auto) Eos % (Auto) Baso % (Auto) Lymph # (Auto) [place] # (Auto) Eos # (Auto) Baso # (Auto) Abs Immat Gran (auto) Absolute Neuts (auto) Absolute Nucleated RBC Nucleated RBC % Sodium Potassium Chloride Carbon Dioxide Anion Gap BUN Creatinine Estim Creat Clear Calc Estimated GFR Glucose POC Capillary Glucose 153 H Calcium Magnesium Total Bilirubin AST ALT Alkaline Phosphatase Total Protein Albumin
[2024-07-31] MEDS: FERROUS SULFATE 325 MG TABLET DR BY MOUTH (12:50)
--- NOTE | 2024-07-31 13:39 | PM.DS ---
DS: Admitting Diagnosis Discharge Date 07/31/24 Admitting Diagnosis Chest pain DS: Discharge Diagnosis Discharge Diagnosis (1) Dilated cardiomyopathy secondary to alcohol: Code(s): I42.6 - Alcoholic cardiomyopathy Status: Acute (2) Heart failure with reduced ejection fraction: Code(s): I50.20 - Unspecified systolic (congestive) heart failure Status: Acute (3) Alcoholism: Code(s): F10.20 - Alcohol dependence, uncomplicated Status: Chronic (4) Chest pain: Qualifiers: Chest pain type: unspecified Qualified Code(s): R07.9 - Chest pain, unspecified Code(s): R07.9 - Chest pain, unspecified Status: Acute (5) Hepatic steatosis: Code(s): K76.0 - Fatty (change of) liver, not elsewhere classified Status: Acute (6) Tobacco abuse: Code(s): Z72.0 - Tobacco use Status: Acute (7) Peripheral neuropathy: Code(s): G62.9 - Polyneuropathy, unspecified Status: Acute (8) Anxiety: Code(s): F41.9 - Anxiety disorder, unspecified Status: Acute (9) Insomnia: Code(s): G47.00 - Insomnia, unspecified Status: Acute (10) Diabetes mellitus: Code(s): E11.9 - Type 2 diabetes mellitus without complications Status: Acute (11) Severe protein-calorie malnutrition: Code(s): E43 - Unspecified severe protein-calorie malnutrition Status: Acute DS: Summary Hospital Course Reason for hospitalization: 34yo male with hx of alcoholism and alcohol induced CMP here for chest pain after drinking 750ml of vodka. Please see H&P for details. Hospital Course: Patient presents with chest pain after drinking alcohol. Of note, patient was transferred to [facility] from [facility] on 02/02/24 for cardiogenic shock with EF 15-20%. He was supported in the ICU on Levophed and dopamine infusions and was placed on Impella and ECMO. His condition worsened and he was sent home on hospice. Patient revoked hospice back in April and was seeking placement on heart transplant list. Last EF was up to 39% according to patient report. Patient follows with Dr. Mahmood at [facility] and Dr. Mcelroy here at [place]. Patient presents back here for CP. Pro BNP 613, Troponin 0.051 --> 0.053. He came in on a Milrinone infusion which was continued here. He was recently prescribed Ivabradine 5 mg daily however he has not picked this up from his pharmacy yet. We continued his Jardiance, Spironolactone, Losartan, and Lasix. He states he has been compliant with his medications and that only his narcotics was not accessible recently due to the move. Midodrine 5 mg ordered PRN for hypotension. Cardiology consulted and appreciate their input. He was treated with doses of intermittent Lasix IV here. Patient presumably has been sober since his hospitalization in January up until the day of admission. ETOH 397 on arrival. Patient admits to drinking Vodka on day of admission. CIWA protocol ordered. CIWA was 9 initially but has improved since admission Thiamine, folate and Multivitamin ordered. He was reporting chest pain that has been ongoing for the past 3 days. Troponin peaked 0.059. Morphine as needed for chest pain and Aspirin 324 mg given. He has had C with known clean coronaries so suspect elevated trop related to CMP. Current every day smoker, 1 pack every 3 days. He reports he quit for 4 months and recently restarted. Recommend that he abstain from tobacco and alcohol use. States he developed severe neuropathy after being on ECMO. He has tried Lyrica and Neurontin in the past without any significant relief. We continued home [place] and Flexeril. He will need to see Pain Management. Patient with severe protein calorie malnutrition related to chronic myopathy as evidenced by intake less than 75% of needs for greater than 1 month, severe muscle wasting to temporalis and shoulder muscles and moderate fat loss to buccal fat pads. Dietary consulted. Supplements ordered. Status at Discharge Cognitive/behavioral status at discharge: stable Time Spent with Patient Time attestation: Total time spent providing and/or coordinating discharge services: 35 minutes Time spent: Greater than 30 minutes Exam Narrative: AF 98.5 98/64 116 14 100% ra Gen - NARD Chest - CTA bilaterally, nml RR CV - RRR S1/S2. Tele showing no significant dysrhythmias Abd - Soft, NT/ND, Positive BS Ext - No pedal edema Psych - Nml mood and affect Skin - Warm and dry DS: Data Data Completed and Pending Labs on day of discharge: Labs from last 24 hours 07/31/24 07/31/24 07/30/24 07:50 06:43 19:42 WBC 4.8 RBC 3.56 L Hgb 10.9 L Hct 34.4 L MCV 96.6 MCH 30.6 MCHC 31.7 L RDW 15.0 H Plt Count 158 MPV 9.4 Immature Gran % (Auto) 0.2 Neut % (Auto) 49.7 Lymph % (Auto) 36.5 [place] % (Auto) 8.8 H Eos % (Auto) 4.0 Baso % (Auto) 0.8 Lymph # (Auto) 1.75 [place] # (Auto) 0.4 Eos # (Auto) 0.2 Baso # (Auto) 0.0 Abs Immat Gran (auto) 0.01 Absolute Neuts (auto) 2.4 Absolute Nucleated RBC 0.000 Nucleated RBC % 0.0 Sodium 134 L Potassium 3.9 Chloride 87 L Carbon Dioxide > 40 H Anion Gap BUN 24 H Creatinine 0.81 Estim Creat Clear Calc 94 Estimated GFR > 60 Glucose 141 H POC Capillary Glucose 153 H 264 H Calcium 9.7 Magnesium 2.2 Total Bilirubin 0.6 AST 55 ALT 44 Alkaline Phosphatase 59 Total Protein 7.0 Albumin 4.2 07/30/24 16:26 WBC RBC Hgb Hct MCV MCH MCHC RDW Plt Count MPV Immature Gran % (Auto) Neut % (Auto) Lymph % (Auto) [place] % (Auto) Eos % (Auto) Baso % (Auto) Lymph # (Auto) [place] # (Auto) Eos # (Auto) Baso # (Auto) Abs Immat Gran (auto) Absolute Neuts (auto) Absolute Nucleated RBC Nucleated RBC % Sodium Potassium Chloride Carbon Dioxide Anion Gap BUN Creatinine Estim Creat Clear Calc Estimated GFR Glucose POC Capillary Glucose 139 H Calcium Magnesium Total Bilirubin AST ALT Alkaline Phosphatase Total Protein Albumin Preliminary micro results at discharge 07/28/24 23:21 Blood Culture - Preliminary Blood 07/28/24 23:21 Blood Culture - Preliminary Blood Discharge Plan Discharge Attending physician on discharge: Monroe Young Consulting providers: Radha Waller Willis Discharging Clinician: Monroe Young Anticipated Discharge Date/Time: 07/31/24 13:54 Patient Disposition: Home, Self-Care Activity: as tolerated Diet: heart healthy and diabetic Discharge Instructions: Per Care Coordination: No Home Health company open on the weekend, will call Friday to make arrangements with Home Health for physical and occupational therapy that takes your insurance. They will call you regarding your first visit. If you have any issues or concerns regarding Home Health please contact Care Coordination [phone] or your primary care doctor Pelon Harris. Please abstain from using all products that contain alcohol Please abstain from using all products that contain nicotine or tobacco Please check glucose before meals and before bed. Record and bring into your doctor for review. Check blood pressure 1 to 2 times a day. Record and bring into your doctor for review. Call your doctor if your blood pressure is greater than 180/110. Take precautions to avoid falls. Rise slowly from a lying or sitting position. Pause before standing or walking. Check daily morning weights after voiding. Call your doctor if you gain more than 3 lb in 2 days or 5 lb in 1 week. Contact your doctor or call 911 and come to the Emergency Room if you have lightheadedness with standing or other worrisome symptoms. Avoid NSAIDs (ibuprofen, naproxen, Aleve). Tylenol is safe to take. Follow-up with your primary care provider in 1-2 weeks. Please call for appointment. Follow-up with your Career Services Manager at next scheduled appointment. Follow-up with Pain Management. Please call for an appointment. Thank you for using [facility] for your health care needs. Patient Instructions: Antibiotic Form, Alcohol Intoxication (GEN), Abuse of Alcohol (GEN), Alcohol Withdrawal (GEN), Alcohol Dependence (GEN) Patient Language: Polish Stand Alone Forms: General Discharge Information Follow-up/Referrals: PHYSICIAN NOT ON STAFF,NONSTAFF [Primary Care Provider] - Call for Appointment Discharge Medications: Continued milrinone in 5 % dextrose 40 mg/200 mL (200 mcg/mL) piggyback See Rx Instructions continuous IV infusion .COMPLEX Rx Instructions: via continuous IV infusion; 2.8 mg/hr hydrocodone-acetaminophen 10-325 mg tablet 1 tablet PO Q4H PRN (Reason: pain (scale score 4-6)) oxycodone 5 mg tablet 10 mg PO Q4H PRN (Reason: pain (scale score 7-10)) spironolactone [Aldactone] 25 mg tablet 12.5 mg PO DAILY clonazepam 2 mg tablet 2 mg PO BID lorazepam [Ativan] 2 mg tablet 2 mg PO Q4H PRN (Reason: anxiety) Rx Instructions: do not exceed 5 doses per 24 hrs zolpidem 10 mg tablet 10 mg PO HS PRN (Reason: insomnia) midodrine 10 mg tablet 5 mg PO DAILY PRN (Reason: low blood pressure) cyclobenzaprine 5 mg tablet 5 mg PO Q6H Jardiance 10 mg tablet 10 mg PO DAILY furosemide 20 mg tablet 20 mg PO DAILY ondansetron 4 mg tablet,disintegrating 4 mg PO Q6H PRN (Reason: nausea and vomiting) losartan 25 mg tablet 12.5 mg PO DAILY folic acid 400 mcg tablet 400 mcg PO DAILY melatonin 10 mg tablet 10 mg PO HS biotin 10,000 mcg capsule 10,000 mcg PO DAILY ferrous sulfate 325 mg (65 mg iron) tablet 325 mg PO DAILY theanine 200 mg capsule 200 mg PO DAILY Date of admission: 07/29/24 13:44 Primary Care Provider: PHYSICIAN NOT ON STAFF,NONSTAFF Admitting Provider: Monroe Young Attending physician on admission: Monroe Young Condition: Stable Hospitalist MIPS Heart Failure (Exclusion) Patient has history of Heart Transplant or Left Ventricular Assistive Device?: No IF YES, STOP HERE Heart Failure (Qualifier) Patient has current or prior documentation of LVEF less than or equal to 40%, or mod/servere depressed LVSF?: Yes IF NO, STOP HERE If Yes, Heart Failure (Qualifier) Patient was prescribed or already taking an Angiotensin-Converting Enzyme (MICHAELA) Inhibitor, or Antiotensin Receptor Gil (ARB): Yes Patient was prescribed or already taking bisoprolol, carvedilol, or sustained release metoprolol succinate: No If Medications not prescribed/taking Reason patient not prescribed/taking bisoprolol, carvedilol, or sustained realease metoprolol succinate: Medical reasons: allergy, intolerance, contraindication or other
== END 2024-07-31 16:11 | disposition home or self-care (01) | DRG 314 ==
LOC: ANHED 19:47 → ANHIMU 21:35
PROVIDERS: Nurse Practitioner Acute Care; Student in an Organized Health Care Education/Training Program; Admitting Provider Internal Medicine; Emergency Provider Family Medicine; Visit Provider Internal Medicine
DX: I42.6 Alcoholic cardiomyopathy (principal); E43 Unspecified severe protein-calorie malnutrition; I50.23 Acute on chronic systolic (congestive) heart failure; F11.20 Opioid dependence, uncomplicated; Z68.1 Body mass index [BMI] 19.9 or less, adult; K76.0 Fatty (change of) liver, not elsewhere classified; G62.9 Polyneuropathy, unspecified; G47.00 Insomnia, unspecified; F10.20 Alcohol dependence, uncomplicated; F41.9 Anxiety disorder, unspecified; F17.210 Nicotine dependence, cigarettes, uncomplicated; T40.2X5A Adverse effect of other opioids, initial encounter
CPT/HCPCS: 36415; 71045; 80053; 82077; 82948; 83690; 83735; 83880; 84484; 85025; 85610; 85730; 87040; 87641; 93005; 96374; 96375; 96376; 97161; 97166; 99285; A9270; G0378; J1171; J1650; J1940; J2260; J2270; J2405

== ENCOUNTER 2024-08-15 01:18 | Emergency (ER) | payer BC, SELFPAY ==
[2024-08-15] VITALS (90 sets, daily range): BP systolic 48–121; BP diastolic 23–99; PULSE 85–112; RESP 12–24; TEMP 35.2–37.3; O2SAT 90–100
--- NOTE | ~2024-08-15 | XR_ITS ---
XR chest 1V portable Ordering provider: Monroe Sheffield MD History: 34 years Male with . weakness/ CHECK PICC . Comparison: July 28, 2024 FINDINGS: MEDIASTINUM: The cardiac silhouette is not enlarged. Right PICC line is seen with the tip overlying t he superior vena cava. LUNGS: No infiltrates, effusions or pneumothorax. OTHER: No free air under the diaphragm. IMPRESSION: No acute cardiopulmonary pathology. Status post placement of right PICC line. Reviewed, dictated and finalized at location A.
--- NOTE | 2024-08-15 01:18 | ECG_ITS ---
Test Date: 2024-08-15 01:10:14 Measurements Intervals [place] Rate: 87 P: 62 ID: [id number] QRS: 94 QRSD: 95 T: 258 QT: 466 QTc: 564 Interpretive Statements SINUS RHYTHM WITH OCCASIONAL VENTRICULAR PREMATURE COMPLEXES RIGHT AXIS DEVIATION ST-T WAVE ABNORMALITY IN ANTEROLAT/INF LEADS- CONSIDER ISCHEMIA BASELINE WANDER- AVL, AVF, V1-V3 ABNORMAL ECG Compared to ECG 07/28/2024 20:09:39 HEART RATE HAS DECREASED ST-T WAVE ABNORMALITY NOW PRESENT POSSIBLE ISCHEMIA NOW PRESENT Electronically Signed On 08-15-2024 07:41:01 CDT by Watson Sandoval D.O.
[2024-08-15] MEDS: SODIUM CHLORIDE 0.9% IV 1,000 ML 200 ML IV CONT (01:24)
--- NOTE | 2024-08-15 01:30 | ED_ITS ---
HPI - General Adult General Chief complaint: Weakness Stated complaint: Weakness/hypotension History of Present Illness HPI narrative: Patient 34-year-old gentleman presents emergency department chief complaint of weakness altered mental status and low blood pressure. Patient has prior history of congestive heart failure and has a PICC line and Milrinone drip running the patient reports that he drank a handle of vodka today and was found to be hypotensive by EMS. Related Data Home Medications ?Medication ?Instructions ?Recorded ?Confirmed ?Last Taken ?Type biotin 10,000 mcg capsule 10,000 mcg PO DAILY 07/28/24 07/28/24 Unknown History clonazepam 2 mg tablet 2 mg PO BID 07/28/24 07/28/24 Unknown History cyclobenzaprine 5 mg tablet 5 mg PO Q6H 07/28/24 07/28/24 Unknown History empagliflozin 10 mg tablet 10 mg PO DAILY 07/28/24 07/28/24 Unknown History (Jardiance) ferrous sulfate 325 mg (65 mg 325 mg PO DAILY 07/28/24 07/28/24 Unknown History iron) tablet folic acid 400 mcg tablet 400 mcg PO DAILY 07/28/24 07/28/24 Unknown History furosemide 20 mg tablet 20 mg PO DAILY 07/28/24 07/28/24 Unknown History hydrocodone 10 mg-acetaminophen 1 tablet PO Q4H PRN pain (scale 07/28/24 07/28/24 Unknown History 325 mg tablet score 4-6) lorazepam 2 mg tablet (Ativan) 2 mg PO Q4H PRN anxiety 07/28/24 07/28/24 Unknown History losartan 25 mg tablet 12.5 mg PO DAILY 07/28/24 07/28/24 Unknown History melatonin 10 mg tablet 10 mg PO HS 07/28/24 07/28/24 Unknown History midodrine 10 mg tablet 5 mg PO DAILY PRN low blood 07/28/24 07/28/24 Unknown History pressure milrinone 40 mg/200 mL(200 mcg/mL) See Rx Instructions continuous IV 07/28/24 07/28/24 07/28/24 History in 5 % dextrose intravenous piggybk infusion .COMPLEX ondansetron 4 mg disintegrating 4 mg PO Q6H PRN nausea and vomiting 07/28/24 07/28/24 Unknown History tablet oxycodone 5 mg tablet 10 mg PO Q4H PRN pain (scale score 07/28/24 07/28/24 Unknown History 7-10) spironolactone 25 mg tablet 12.5 mg PO DAILY 07/28/24 07/28/24 Unknown History (Aldactone) theanine 200 mg capsule 200 mg PO DAILY 07/28/24 07/28/24 Unknown History zolpidem 10 mg tablet 10 mg PO HS PRN insomnia 07/28/24 07/28/24 Unknown History Allergies Allergy/AdvReac Type Severity Reaction Status Date / Time Sulfa (Sulfonamide Allergy Unknown Unknown Verified 08/15/24 01:18 Antibiotics) sulfamethoxazole Allergy Unknown Unknown Verified 08/15/24 01:18 trimethoprim Allergy Unknown Unknown Verified 08/15/24 01:18 Review of Systems 2 Review of Systems: A 10 system review of systems was completed on the patient and is negative except for what is stated in the HPI. Nursing and ancillary documentation was reviewed. PMFSH Past Medical History Medical History Diabetes mellitus Insomnia Peripheral neuropathy Dilated cardiomyopathy secondary to alcohol Anxiety Hepatic steatosis Alcoholism Pancreatitis hx of necrotizing pancreatitis November 2023 Hx of pseudocyst that was drained Surgical History Surgical History History of ankle surgery Family History Family History Father Heart disease Hypertension Social History Social History Social History: Smokes 1ppd x16 years. Alcohol use as above. Drug use hx as above Full code Surrogate decision maker - mother Smoking packs per day: 1 Smoking cigarettes per day: 20.0 Smoking status: Current every day smoker Tobacco type: cigarettes Alcohol intake: current Substance use: current Substance use type: marijuana Do You Feel Safe in your Home?: Yes Lack of Transportation: No Lack of Food: Never True Current Housing: I Have Housing Concerned About Future Housing: No Difficulty Paying Gas/Electric Bills: No Difficulty Paying for Meds: No Currently Unemployed: No Education: High School Diploma/GED Difficulty w/ Childcare or Family Care: No Spiritual care concerns: No Exam 2 Narrative: GENERAL: Ill-appearing, well-nourished, and in no acute distress. HEAD: Normocephalic, atraumatic. EYES: PERRLA and EOMI. ENT: Nares clear, no rhinorrhea or epistaxis. Mucous membranes moist. NECK: Supple. CHEST: Clear to auscultation. No respiratory distress. HEART: Regular rate and rhythm. No murmur heard. Normal peripheral pulses. ABDOMEN: Soft, nontender, nondistended, normal active bowel sounds. EXTREMITIES: Normal range of motion. No edema. PICC line present in the right upper extremity SKIN: Warm, dry, no rash. NEURO: No focal deficits. Alert and oriented x3. PSYCH: Normal mood and affect. Course Vital Signs Vital signs: Vital Signs Temperature 36.4 C L 08/15/24 01:04 Pulse Rate 85 08/15/24 01:04 Respiratory Rate 12 08/15/24 01:04 Pulse Oximetry 96 08/15/24 01:04 Oxygen Delivery Room Air 08/15/24 01:04 Temperature 37.3 C 08/15/24 03:51 Pulse Rate 106 H 08/15/24 03:51 Respiratory Rate 22 H 08/15/24 03:51 Blood Pressure 82/40 L 08/15/24 03:51 Pulse Oximetry 100 08/15/24 03:51 Oxygen Delivery Nasal Cannula 08/15/24 02:17 Oxygen Flow Rate 2 08/15/24 02:17 Medical Decision Making Vital Signs Vital Signs: Vital Signs Temperature 36.4 C L 08/15/24 01:04 Pulse Rate 85 08/15/24 01:04 Respiratory Rate 12 08/15/24 01:04 Pulse Oximetry 96 08/15/24 01:04 Oxygen Delivery Room Air 08/15/24 01:04 Temperature 37.3 C 08/15/24 03:51 Pulse Rate 106 H 08/15/24 03:51 Respiratory Rate 22 H 08/15/24 03:51 Blood Pressure 82/40 L 08/15/24 03:51 Pulse Oximetry 100 08/15/24 03:51 Oxygen Delivery Nasal Cannula 08/15/24 02:17 Oxygen Flow Rate 2 08/15/24 02:17 Lab Data 08/15/24 01:28 08/15/24 01:28 Labs: Lab Results 08/15/24 08/15/24 Range/Units 01:27 01:28 WBC 8.4 (4.5-10.0) K/mm3 RBC 3.17 L (4.6-6.20) M/mm3 Hgb 9.3 L (14.0-18.0) g/dL Hct 30.3 L (42.0-52.0) % MCV 95.6 (80-100) fl MCH 29.3 (26-34) pg MCHC 30.7 L (32-36) g/dl RDW 15.6 H (11.5-14.5) % Plt Count 272 D (150-375) k/mm3 MPV 9.1 (7.4-10.4) fl Immature Gran % (Auto) 0.8 H (0-0.5) % Neut % (Auto) 76.7 H (45.5-73.1) % Lymph % (Auto) 10.7 L (18.3-44.2) % [place] % (Auto) 11.6 H (2.6-8.5) % Eos % (Auto) 0.0 (0-4.4) % Baso % (Auto) 0.2 (0.2-1.2) % Lymph # (Auto) 0.90 (0.9-3.2) K/mm3 [place] # (Auto) 1.0 H (0.1-0.6) K/mm3 Eos # (Auto) 0.0 (0-0.3) K/mm3 Baso # (Auto) 0.0 (0.0-0.1) K/mm3 Abs Immat Gran (auto) 0.07 H (0.00-0.031) K/mm3 Absolute Neuts (auto) 6.5 (1.3-6.7) K/mm3 Absolute Nucleated RBC 0.000 (0.0-0.012) K/mm3 Nucleated RBC % 0.0 (0.0-0.2) % PT 14.2 (11.1-14.7) Seconds INR 1.1 APTT 32.2 (22.3-36.8) Seconds Sodium 130 L (137-145) mmol/L Potassium 4.4 (3.4-5.0) mmol/L Chloride 88 L (98-107) mmol/L Carbon Dioxide < 5 L (22-30) mmol/L Anion Gap (4-12) mmol/L BUN 16 (9-20) mg/dL Creatinine 1.44 H (0.7-1.3) mg/dL Estim Creat Clear Calc 56 ml/min Estimated GFR 56 L (59 - ) Glucose 187 H (65-110) mg/dL Lactic Acid 6.1 H* (0.7-2.0) mmol/L Calcium 6.7 L (8.4-10.2) mg/dL Magnesium 2.1 (1.6-2.3) mg/dL Total Bilirubin 0.5 (0.2-1.3) mg/dL AST 103 H (17-59) U/L ALT 47 (6-50) U/L Alkaline Phosphatase 53 (38-126) U/L Troponin I 0.094 H* (0.000-0.034) ng/mL NT-Pro-B Natriuret Pep 3790 H (19.9-100) pg/mL Total Protein 6.0 L (6.3-8.2) g/dL Albumin 4.0 (3.5-5.1) g/dL Lipase 113 (23-300) U/L Procalcitonin 0.7 ng/mL Ethyl Alcohol 241 (<10) mg/dL Influenza A (RT-PCR) Negative (Negative) Influenza B (RT-PCR) Negative (Negative) RSV (RT-PCR) Negative (Negative) SARS-CoV-2 RNA (RT-PCR) Negative (Negative) Critical Care Time Critical Care Time Critical Care Time: Yes Total Critical Care Time: 75 Discharge Plan Discharge Clinical Impression: Heart failure with reduced ejection fraction, Cardiogenic shock, Alcoholism Patient Language: Indonesian Prescriptions: No Action milrinone in 5 % dextrose 40 mg/200 mL (200 mcg/mL) piggyback See Rx Instructions continuous IV infusion .COMPLEX Rx Instructions: via continuous IV infusion; 2.8 mg/hr hydrocodone-acetaminophen 10-325 mg tablet 1 tablet PO Q4H PRN (Reason: pain (scale score 4-6)) oxycodone 5 mg tablet 10 mg PO Q4H PRN (Reason: pain (scale score 7-10)) spironolactone [Aldactone] 25 mg tablet 12.5 mg PO DAILY clonazepam 2 mg tablet 2 mg PO BID lorazepam [Ativan] 2 mg tablet 2 mg PO Q4H PRN (Reason: anxiety) Rx Instructions: do not exceed 5 doses per 24 hrs zolpidem 10 mg tablet 10 mg PO HS PRN (Reason: insomnia) midodrine 10 mg tablet 5 mg PO DAILY PRN (Reason: low blood pressure) cyclobenzaprine 5 mg tablet 5 mg PO Q6H Jardiance 10 mg tablet 10 mg PO DAILY furosemide 20 mg tablet 20 mg PO DAILY ondansetron 4 mg tablet,disintegrating 4 mg PO Q6H PRN (Reason: nausea and vomiting) losartan 25 mg tablet 12.5 mg PO DAILY folic acid 400 mcg tablet 400 mcg PO DAILY melatonin 10 mg tablet 10 mg PO HS biotin 10,000 mcg capsule 10,000 mcg PO DAILY ferrous sulfate 325 mg (65 mg iron) tablet 325 mg PO DAILY theanine 200 mg capsule 200 mg PO DAILY Follow-up/Referrals: PHYSICIAN NOT ON STAFF,NONSTAFF [Primary Care Provider] -
[2024-08-15 01:35] LABS: Basophils Percent Auto 0.2 % (0.2-1.2); Hematocrit 30.3 % (42.0-52.0); Hemoglobin 9.3 g/dL (14.0-18.0); Immature Granulocyte Absolute 0.07 K/mm3 (0.00-0.031); Immature Granulocyte Percent A 0.8 % (0-0.5); Lymphocytes Percent Auto 10.7 % (18.3-44.2); Mean Corpuscular HGB Conc 30.7 g/dl (32-36); Mean Corpuscular Hemoglobin 29.3 pg (26-34); Mean Corpuscular Volume 95.6 fl (80-100); Mean Platelet Volume 9.1 fl (7.4-10.4); Monocytes Percent Auto 11.6 % (2.6-8.5); Neutrophils Absolute Auto 6.5 K/mm3 (1.3-6.7); Neutrophils Percent Auto 76.7 % (45.5-73.1); Platelet Count Result 272 k/mm3 (150-375); Red Blood Count 3.17 M/mm3 (4.6-6.20); Red Cell Distribution Width 15.6 % (11.5-14.5); White Blood Count 8.4 K/mm3 (4.5-10.0)
[2024-08-15] MEDS: NOREPINEPHRINE 8 MG/D5W 250 ML 8 MG/250 ML BAG 9.38 MG IV CONT (01:44)
[2024-08-15 01:46] LABS: Ethanol 241 mg/dL (<10)
[2024-08-15 01:48] LABS: Alanine Aminotransferase 47 U/L (6-50); Alkaline Phosphatase 53 U/L (38-126); Aspartate Amino Transferase 103 U/L (17-59); Bilirubin,Total 0.5 mg/dL (0.2-1.3); Blood Urea Nitrogen 16 mg/dL (9-20); Calcium 6.7 mg/dL (8.4-10.2); Carbon Dioxide < 5 mmol/L (22-30); Chloride 88 mmol/L (98-107); Estimated CRCL calculation 56 ml/min; Estimated Glomerular Filt Rate 56; Glucose 187 mg/dL (65-110); Lipase 113 U/L (23-300); Magnesium 2.1 mg/dL (1.6-2.3); Potassium 4.4 mmol/L (3.4-5.0); Sodium 130 mmol/L (137-145)
[2024-08-15 01:49] LABS: INR 1.1; Prothrombin Time 14.2 Seconds (11.1-14.7)
[2024-08-15 01:50] LABS: Partial Thromboplastin Time 32.2 Seconds (22.3-36.8)
[2024-08-15 01:51] LABS: Lactic Acid Reflex 6.1 mmol/L (0.7-2.0)
[2024-08-15 02:03] LABS: Procalcitonin 0.7 ng/mL
[2024-08-15 02:05] LABS: NT Pro B Type Natriuretic Pept 3790 pg/mL (19.9-100); Troponin I 0.094 ng/mL (0.000-0.034)
--- NOTE | 2024-08-15 02:09 | PC.NURSE ---
0147 Norepi infusion verified by this RN and DAGO RN. ERP states okay to use PICC line. Patients home drip on personal infusion pump is milrinone, verfied by this RN. Batteries changed in pump. [address] osbaldo hugger on patient.
--- NOTE | 2024-08-15 02:17 | PC.NURSE ---
Patient c/o of SOB, ERP notified. VORB to place patient on 2L via NC for comfort.
[2024-08-15 02:19] LABS: Influenza A QL RT-PCR Negative (Negative); Influenza B QL RT-PCR Negative (Negative); RSV RNA, RT-PCR Negative (Negative); SARS-CoV-2 RNA PCR Negative (Negative)
--- NOTE | 2024-08-15 02:45 | PC.NURSE ---
ERP notified of patient norepi drip now maxed at 30mcg/min.
--- NOTE | 2024-08-15 03:01 | PC.NURSE ---
This RN checked with pharmacy, [facility] to run vasopressors together with patients home pump of milrinone.
[2024-08-15] MEDS: PHENYLEPHRINE HCL INJ 50 MG in DEXTROSE 5% IN WATER 250 ML/245 ML BAG 12 ML IV CONT (03:03)
--- NOTE | 2024-08-15 03:07 | PC.NURSE ---
Phenylephrine drip verified by this RN and RD,RN.
--- NOTE | 2024-08-15 03:28 | PC.NURSE ---
Patient able to use bedpan. Patient able to assist with use of bedpan and getting cleaned up. Patient remains a/ox3. Call light within reach.
[2024-08-15 03:31] LABS: Reflex Lactic Acid Yes or No Add Lactic
--- NOTE | 2024-08-15 03:32 | PC.NURSE ---
Patient states he is feeling worse, that he has some SOB, feeling like I'm going to pass out. ERP notified of drip rates, and VS.
--- OUTSIDE RECORDS SUMMARY | 2024-08-15 03:46 | XMS_ITS | Clinical Summary ---
Author Organization [facility] Address [address] [place] [address] Care Team Providers Care Dike Supervisor Name Role Phone Tony Mcelroy MD Unavailable Bar Alegria MD Unavailable [phone] Pelon Rodriguez MD Primary Care Provider [phone] Allergies Active Allergy Reactions Criticality Noted Date Comments Sulfamethoxazole-Trimethoprim Unknown 2022 Sulfa Antibiotics Unknown 09/07/2023 Medications vitamin B-12 (CYANOCOBALAMIN) (CYANOCOBALAMIN) 1000 mcg tabletIndications: supplement Take 2,500 mcg by mouth daily. Indications: supplement 08/11/19 25 Active MILRINONE LACTATE IN DEXTROSE IVIndications:card iac [...] 02/24/20 Active normal saline 0.9 % injectionIndicatio ns:service line layer Inject 10 mLs into the vein as needed (service line layer). Indications: service line layer 02/18/20 Active Heparin Sodium, Porcine, (HEPARIN, PORCINE, LOCK FLUSH IV)Indications:london e maintenance 50 Units by IVP route as needed (service line layer). use after normal saline for service line layer Indications: service line layer 02/18/20 Active fentaNYL (DURAGESIC) 100 mcg/hrIndications: Chronic [...] 04/15/20 Active naloxone (NARCAN) 4 MG/0.1ML nasal sprayIndications:o verdose 1 spray by Nasal route as needed for Opioid reversal. may repeat every 2 to 3 minutes in alternating nostrils until medical assistance becomes available 1 each 04/29/20 24 025 Active naLOXone (NARCAN) 0.4 mg/mL injection Inject 1 mL (0.4 mg total) into the muscle once as needed (Opioid reversal). 1 mL 04/29/20 24 025 Active losartan (COZAAR) 25 MG tabletIndications: heart Take 25 mg by mouth daily. Indications: heart 08/11/19 25 Active ivabradine (CORLANOR) 5 MG tabletIndications: tachycardia Take 5 mg by mouth 2 (two) times daily. Indications: tachycardia 08/11/19 25 Active spironolactone (ALDACTONE) 12.5 mgIndications:diur etic Take 12.5 mg by mouth daily. Indications: diuretic 08/11/19 25 Active DULoxetine (CYMBALTA) 60 MG capsuleIndications :nerve pain/anxiety Take 30 mg by mouth daily. Indications: nerve pain/anxiety 08/11/19 25 Active L-Theanine 200 MG CapIndications:sup plement Take 1 tablet by mouth daily. Indications: supplement 08/11/19 25 Active empagliflozin (JARDIANCE) 10 MG tabletIndications: pancratic disease Take 10 mg by mouth daily. Indications: pancratic disease 08/11/19 25 Active Thiamine HCl 500 MG TabIndications:sup plement Take 1 tablet by mouth daily. Indications: supplement 08/11/19 25 Active HYDROcodone-acetam inophen (NORCO) 10-325 MG tabletIndications: Acute Pain < 7 Day Supply,Chronic Pain Take 1 tablet by mouth every 6 (six) hours as needed. Indications: Acute Pain < 7 Day Supply, Chronic Pain 08/11/19 25 Active clonazePAM (KLONOPIN) 1 MG tabletIndications: anxiety Take 1 mg by mouth 2 (two) times daily as needed. Indications: anxiety 08/11/19 Active zolpidem (AMBIEN) 10 MG tabletIndications: sleep disturbance Take 10 mg by mouth nightly as needed. Indications: sleep disturbance 08/11/19 Active biotin 69334 MCG tabletIndications: supplement Take 10,000 mcg by mouth daily. Indications: supplement 08/11/19 Active Multiple Vitamins-Minerals (ONE A DAY MENS VITACRAVES OR)Indications:sup plement Take 1 tablet by mouth daily. Indications: supplement 08/11/19 25 Active B Complex Vitamins (B COMPLEX OR)Indications:sup plment Take 1 tablet by mouth daily. Indications: supplment 08/11/19 Active prazosin (MINIPRESS) 2 MG capsuleIndications :nightmares Take 2 mg by mouth nightly at bedtime. Indications: nightmares 08/11/19 Active pantoprazole EC (PROTONIX) 20 MG tabletIndications: gerd Take 40 mg by mouth daily. Indications: gerd 08/11/19 Active Active Problems Problem Noted Date Diagnosed Date Chronic systolic heart failure (CMS/HCC HHS/HCC) 2024 Pancreatitis, alcoholic, acute (HHS/HCC) 024 Pancreatic pseudocyst (HHS/HCC) 09/18/2023 Alcohol-induced acute pancreatitis (HHS/HCC) 08/2023 Alcoholism (CMS/HCC HHS/HCC) 09/06/2023 Resolved Problems Problem Noted Date Diagnosed Date Resolved Date Pancreatitis, acute (HHS/HCC) 09/07/2023 09/09/2023 Alcoholic ketoacidosis 09/06/202309/06 Alcoholic pancreatitis (HHS/HCC) 09/06/2023 09/07/2023 Acute pancreatitis (HHS/HCC) 03/29/2023 09/09/2023 Pancreatitis (HHS/HCC) 03/26/202308/14 Encounters Date Type Department Care Team Description 08/12/2024 1:30 PM CDT Home Care Visit [facility] Home Care [address] [place] [address] [place] [address] Jes Flores OT PATIENT NOT HOME 08/10/2024 1:16 PM CDT - 08/10/2024 11:59 PM CDT Hospital Encounter [facility] [address] [place] [address] Tony Mcelroy MD Discharge Disposition: Home or Self Care (Routine Discharge) 08/10/2024 10:15 AM CDT Home Care Visit [facility] Home Care [address] [place] [address] [place] [address] Minerva Lancaster RN SN OASIS START OF CARE 08/10/2024 Orders Only [facility] [address] [place] [address] Tony Mcelroy MD 08/03/2024 Scan [facility] Care [address] [place] [address] [place] [address] [facility] 07/22/2024 1:38 PM CDT - 07/22/2024 2:30 PM CDT Hospital Encounter [facility] Surgery [address] [place] [address] Tony Mcelroy MD Discharge Disposition: Home or Self Care (Routine Discharge) 07/22/2024 1:37 PM CDT Hospital Encounter [facility] [address] [place] [address] Tony Mcelroy MD Discharge Disposition: Home or Self Care (Routine Discharge) 07/22/2024 Telephone [facility] One Day Services [address] [place] [address] Mary Ellen Mahmood MD Lab Results (Critical value ) 07/22/2024 Travel 06/24/2024 1:57 PM NEGATIVE SPOTTER - 06/24/2024 2:52 PM NEGATIVE SPOTTER Hospital Encounter [facility] [address] [place] [address] Tony Mcelroy MD Discharge Disposition: Home or Self Care (Routine Discharge) 06/24/2024 Travel 06/18/2024 12:07 PM NEGATIVE SPOTTER - 06/18/2024 12:40 PM NEGATIVE SPOTTER Hospital Encounter [facility] [address] [place] [address] Tony Mcelroy MD Discharge Disposition: Home or Self Care (Routine Discharge) 06/18/2024 Travel 06/10/2024 1:43 PM NEGATIVE SPOTTER - 06/10/2024 3:03 PM NEGATIVE SPOTTER Hospital Encounter [facility] [address] [place] [address] Tony Mcelroy MD Discharge Disposition: Home or Self Care (Routine Discharge) 06/10/2024 Travel 06/03/2024 2:24 PM NEGATIVE SPOTTER - 06/03/2024 3:10 PM NEGATIVE SPOTTER Hospital Encounter [facility] [address] [place] [address] Tony Mcelroy MD Discharge Disposition: Home or Self Care (Routine Discharge) 06/03/2024 Travel 05/28/2024 1:56 PM NEGATIVE SPOTTER - 05/28/2024 2:35 PM NEGATIVE SPOTTER Hospital Encounter [facility] [address] [place] [address] Tony Mcelroy MD Discharge Disposition: Home or Self Care (Routine Discharge) 05/28/2024 Travel 05/20/2024 2:40 PM NEGATIVE SPOTTER - 05/20/2024 3:45 PM NEGATIVE SPOTTER Hospital Encounter [facility] [address] [place] [address] Tony Mcelroy MD Discharge Disposition: Home or Self Care (Routine Discharge) 05/20/2024 Travel from Last 3 Months Family History Medical History Relation Comments [place] Father No Known Problems Mother meninigitis Sister Relation Status Comments Father Alive Mother Alive Sister (Age 5) Social History Tobacco Use Types Packs/Day Years Used Date Smoking Tobacco: Every Day Cigarettes 0.7 23.3 Started: 2011 Smokeless Tobacco: Never Tobacco Cessation:Ready to Q uit: Yes; Counseling Given: Yes Comments:Has been using nicotine patches to try to quit Alcohol Use Standard Drinks/Week Comments Yes 0 (1 standard drink = 0.6 oz pure alcohol) 2-3 x/week, vodka-750mls at a time OASIS D0700: Social Isolation Answer Da te Recorded Frequency of experiencing loneliness or isolatio n Never 08/10/2024 OASIS A1250: Transportation Answer Date Recorded Lack of Transportation (Medical) Yes 08/10/2024 Lack of Transportation (Non-Medical) No 08/10/2024 Patient Unable or Declines to Respond No 08/10/2024 OASIS B1300: Health Literacy Answer Bryan e Recorded Frequency of needing help to read materials from doctor or pharmacy Never 08/10/2024 B1300 Health Literacy Answer Date Recor ded How often do you need to hav e someone help you when you read instructions, pamphlets, or other written material from your doctor or pharmacy? Never 09/18/2023 [facility] Utilities Answer Date Recorded In the past 12 months has e [employer], gas, oil, or [employer] threatened to shut off services in your [...] 08/13/2023 How often do you attend chur ch or presybeterian services? 1 to 4 times per year 08/13/2023 Do you belong to any clubs o r organizations such as mormon groups, unions, fraternal or athletic groups, or [...] medical care, and heating? Patient declined 10/27/2023 [facility] - [facility] [...] place to sleep or slept in a senior living (including now)? No 03/29/2023 Housing Stability Vital [...] any time in the past 12 m [facility], were you homeless or living in a senior living (including now)? Patient declined 10/27/2023 Sex and [...] Sign Reading Time Taken Comments Blood Pressure 116/64 08/10/2024 11:00 AM CDT Pulse 88 08/10/2024 11:00 AM CDT Temperature 36.8 C (98.2 F) 08/10/2024 11:00 AM CDT Respiratory Rate 16 08/10/2024 11:00 AM CDT Oxygen Saturation 98% 08/10/2024 11:00 AM CDT Inhaled Oxygen Concentration - - Weight 65.5 kg (144 lb 6.4 oz) 05/07/2024 3:07 P M NEGATIVE SPOTTER Height 185.4 cm (6' 1 ) 05/07/2024 3:07 PM NEGATIVE SPOTTER Body Mass Index 19.05 05/07/2024 3:07 PM NEGATIVE SPOTTER Plan of Treatment Upcoming Encounters Date Type Department Care Team (Late st Contact Info) Description 08/17/2024 8:00 AM CDT Home Care Visit [facility] Care [address] [place] [address] [place] [address] Minerva Lancaster RN [phone] (Work) 08/19/2024 2:00 PM CDT Appointment [facility] [id number] [place] [address] Tony Mcelroy MD [address] [place] [address] 08/24/2024 11:00 AM CDT Home Care Visit [address] [place] [address] [place] [address] Elin Rodriguez RN 08/31/2024 8:00 AM CDT Home Care Visit [address] [address] Minerva Lancaster, RN [phone] (Work) 09/07/2024 8:00 AM CDT Home Care Visit [address] [address] Minerva Lancaster, RN [phone] (Work) 09/14/2024 8:00 AM CDT Home Care Visit [address] [address] Minerva Lancaster, RN [phone] (Work) Health Maintenance Due Date Last Done Comments Annual Physical 1992 Pneumococcal Vaccine: Pediatrics (0 to 5 Years) and At-Risk Patients (6 to 49 Years) (1 of 2 - PCV) 1995 Hepatitis B Vaccines (1 of 3 - 19+ 3-dose series) 2008 COVID-19 Vaccine (2 - season) 2024 07/06/2021 DTaP, Tdap and Td Vaccines (2 - [...] Procedure Name Priority Date/Time Associated Diagnosis Comments BASIC METABOLIC PANEL Routine 08/10/2024 11:30 AM CDT Alcoholic cardiomyopathy (CMS/HCC HHS/HCC) Chronic systolic heart failure (CMS/HCC HHS/HCC) PRO-BRAIN NATRIURETIC PEPTIDE Routine 08/10/2024 11:30 AM CDT Alcoholic cardiomyopathy (CMS/HCC HHS/HCC) Chronic systolic heart failure (CMS/HCC HHS/HCC) CBC W/DIFF AUTOMATED Routine 08/10/2024 11:30 AM CDT Alcoholic cardiomyopathy (CMS/HCC HHS/HCC) Chronic systolic heart failure (CMS/HCC HHS/HCC) PRO-BRAIN NATRIURETIC PEPTIDE Routine 07/22/2024 2:15 PM CDT Chronic systolic heart failure (CMS/HCC HHS/HCC) COMPREHENSIVE METABOLIC PANEL Routine 07/22/2024 2:15 PM CDT Chronic systolic heart failure (CMS/HCC HHS/HCC) PRO-BRAIN NATRIURETIC PEPTIDE Routine 06/24/2024 3:05 PM NEGATIVE SPOTTER Chronic systolic heart failure (CMS/HCC HHS/HCC) COMPREHENSIVE METABOLIC PANEL Routine 06/24/2024 3:05 PM NEGATIVE SPOTTER Chronic systolic heart failure (CMS/HCC HHS/HCC) from Last 3 Months Results * (ABNORMAL) PRO-BRAIN NATRIURETIC PEPTIDE (08/10/2024 11:30 AM CDT) Only the most recent of3 resultswithin the time period is included. PRO-B TYPE NATRIURETIC PEPTIDE 774(H) <125 PG/ML 08/10/2024 2:16 PM CDT [facility] Comment: CUT POINTS ESTABLISHED [...] OF 89% AND 72% FOR ACUTE CHF. 08/10/2024 11:3 0 AM CDT us Tony Mcelroy MD LABORATORY Final Result [facility] [address] [place] [address], [place] [phone] * (ABNORMAL) BASIC METABOLIC PANEL (08/10/2024 11:30 AM CDT) GLUCOSE 234(H) 70 - 99 MG/DL 08/10/2024 2:16 PM CDT [facility] BUN 21(H) 7 - 18 MG/DL 08/10/2024 2:16 PM CDT [facility] CREATININE S/P/B 0.74 0.7 - 1.3 MG/DL 08/10/2024 2:16 PM CDT [facility] SODIUM S/P/B 134(L) 136 - 145 MMOL/L 08/10/2024 2:16 PM CDT [facility] POTASSIUM S/P/B 2.9(LL) 3.5 - 5.1 MMOL/L 08/10/2024 2:30 PM CDT [facility] Comment: Critical Result(s) Called at: 14:27:57 on 08/10/2024 by: Rabia Denny to and read back by:VIRGIE BEARD RN HOME HEALTH CHLORIDE S/P/B 92(L) 100 - 108 MMOL/L 08/10/2024 2:16 PM CDT [facility] CO2 34.9(H) 21 - 32 MMOL/L 08/10/2024 2:16 PM CDT [facility] CALCIUM S/P/B 9.5 8.5 - 10.1 MG/DL 08/10/2024 2:16 PM CDT [facility] ANION GAP 7.1 5 - 15 MMOL/L 08/10/2024 2:16 PM CDT [facility] BUN CREATININE RATIO 28.4(H) 6 - 26 08/10/2024 2:16 PM CDT [facility] GFR ESTIMATE >90 >90 ML/MIN/1.7 3 M2 08/10/2024 2:16 PM CDT [facility] Comment: NOTE: eGFR is not calculated for patients <18 years of age. This is an estimated GFR calculation using the new CKD EPI creatinine equation without race and so does not require a correction factor for race. This estimated GFR should not be used for calculating drug doses. 08/10/2024 11:3 0 AM CDT us Tony Mcelroy MD LABORATORY Final Result [facility] [address] [place] [address], [place] [phone] * (ABNORMAL) CBC W/DIFF AUTOMATED (08/10/2024 11:30 AM CDT) WBC 6.23 4.4 - 11.0 x10'3/uL 08/10/2024 1:21 PM CDT [facility] RBC 3.49(L) 4.50 - 5.90 x10'6/uL 08/10/2024 1:21 PM CDT [facility] HGB 10.5(L) 14.0 - 17.5 G/DL 08/10/2024 1:21 PM T [facility] HCT 32.0(L) 41.5 - 50.4 % 08/10/2024 1:21 PM [facility] MCV 91.7 80.0 - 96.0 FL 08/10/2024 1:21 PM T [facility] MCH 30.1 26.5 - 31.4 PG 08/10/2024 1:21 PM T [facility] MCHC 32.8 31.9 - 34.8 G/DL 08/10/2024 1:21 PM [facility] RDW 15.6(H) 12.3 - 14.3 % 08/10/2024 1:21 PM [facility] PLT 155 151 - 353 x10'3/uL 08/10/2024 1:21 PM [facility] MPV 10.7 9.7 - 11.9 FL 08/10/2024 1:21 PM T [facility] RBC MORPHOLOGY NORMAL 08/10/2024 1:21 PM [facility] PLT MORPH. NORMAL 08/10/2024 1:21 PM [facility] WBC MORPHOLOGY NORMAL 08/10/2024 1:21 PM [facility] LYMPHOCYTES % 19.4 15.8 - 45.0 % 08/10/2024 1:21 PM T [facility] NEUTROPHILS % 69.7 42.1 - 71.9 % 08/10/2024 1:21 PM [facility] MONOCYTES % 9.0 5.7 - 12.5 % 08/10/2024 1:21 PM T [facility] EOSINOPHILS 1.1 0.0 - 5.6 % 08/10/2024 1:21 PM CDT [facility] BASOPHILS 0.5 0.0 - 1.3 % 08/10/2024 1:21 PM CDT [facility] ABS. NEUTROPHILS 4.34 1.40 - 6.00 x10'3/uL 08/10/2024 1:21 PM CDT [facility] IMMATURE GRANS % 0.3 0.0 - 0.5 % 08/10/2024 1:21 PM CDT [facility] ABS. LYMPHOCYTES 1.21 0.80 - 4.70 x10'3/uL 08/10/2024 1:21 PM CDT [facility] 08/10/2024 11:3 0 AM CDT Tony Mcelroy MD LABORATORY Final Result [facility] [address] [place] [address], [place] [phone] * (ABNORMAL) COMPREHENSIVE METABOLIC PANEL (07/22/2024 2:15 PM CDT) Only the most recent of2 resultswithin the time period is included. GLUCOSE 474(HH) 70 - 99 MG/DL 07/22/2024 3:37 PM CDT [facility] Comment: Critical Result(s) Called at: 15:31:41 on 07/22/2024 by: KEI FORBES to and read back by: MAGDALENA DANIELS [employer] BUN 25(H) 7 - 18 MG/DL 07/22/2024 3:37 PM CDT [facility] CREATININE S/P/B 1.07 0.7 - 1.3 MG/DL 07/22/2024 3:37 PM CDT [facility] SODIUM S/P/B 132(L) 136 - 145 MMOL/L 07/22/2024 3:37 PM [facility] POTASSIUM S/P/B 5.2(H) 3.5 - 5.1 MMOL/L 07/22/2024 3:37 PM [facility] CHLORIDE S/P/B 98(L) 100 - 108 MMOL/L 07/22/2024 3:37 PM [facility] CO2 27.3 21 - 32 MMOL/L 07/22/2024 3:37 PM [facility] CALCIUM S/P/B 9.0 8.5 - 10.1 MG/DL 07/22/2024 3:37 PM [facility] BILIRUBIN TOTAL S/P/B 0.2 0.2 - 1.2 MG/DL 07/22/2024 3:37 PM [facility] TOTAL PROTEIN S/P/B 6.3(L) 6.4 - 8.2 G/DL 07/22/2024 3:37 PM [facility] ALBUMIN S/P/B 3.7 3.4 - 5.0 G/DL 07/22/2024 3:37 PM [facility] AST 13(L) 15 - 37 U/L 07/22/2024 3:37 PM [facility] ALT 24 16 - 60 U/L 07/22/2024 3:37 PM [facility] ALKALINE PHOSPHATASE S/P/B 55 50 - 136 U/L 07/22/2024 3:37 PM [facility] ANION GAP 6.7 5 - 15 MMOL/L 07/22/2024 3:37 PM [facility] BUN CREATININE RATIO 23.4 6 - 26 07/22/2024 3:37 PM [facility] A/G RATIO 1.4 1.0 - 2.0 RATIO 07/22/2024 3:37 PM CDT [facility] GFR ESTIMATE >90 >90 ML/MIN/1.7 3 M2 07/22/2024 3:37 PM CDT [facility] Comment: NOTE: eGFR is not calculated for patients <18 years of age. This is an estimated GFR calculation using the new CKD EPI creatinine equation without race and so does not require a correction factor for race. This estimated GFR should not be used for calculating drug doses. 07/22/2024 2:15 PM CDT Mary Ellen Mahmood MD LABORATORY Final Result Performing Organization Address City/State/[facility] Co de Phone Number [facility] [address] [place] [address], from Last 3 Months Insurance [facility] Advance Directives * Full Code (Latest Code Status on File) Date Activated Date Inactivated Comments 08/10/2024 6:07 PM * DNR Date Activated Date Inactivated Comments 02/18/2024 9:43 PM 04/22/2024 3:04 PM * Full Code Date Activated Date Inactivated Comments 10/26/2023 11:58 AM 10/28/2023 4:39 PM * Full Code Date Activated Date Inactivated Comments 09/18/2023 11:43 AM 09/24/2023 11:53 AM * Full Code Date Activated Date Inactivated Comments 09/07/2023 9:04 PM 09/09/2023 6:46 PM Care Teams Dike Supervisor Relationship Specialty Start Date End Date Pelon Rodriguez MD [address] [place] [address] [address] [place] [address] PCP - General FAMILY PRACTICE 08/03/24 Tony Mcelroy MD [address] [address] CARDIOVASCULAR DISEASE 04/29/24 Bar Alegria MD [address] [address] INTERNAL MEDICINE 04/29/24
--- OUTSIDE RECORDS SUMMARY | 2024-08-15 03:46 | XMS_ITS | Encounter Summary ---
Author Organization [facility] Address [address] [place] [address] Care Team Providers Care Low Vision Therapist Name Role Phone Pelon Rodriguez MD Primary Care Provi panda Mary Ellen Mahmood MD Unavailable [phone] Simran Pruett Unavailable Unavailable Encounter Details Date Type Department Care Team (Late st Contact Info) Description 06/24/2024 Results Follow-Up [facility] [address] [place] [address] Mary Ellen Mahmood MD [address] [facility] [address] [place] [address] Social History Tobacco Use Types Packs/Day Years Used Date Smoking Tobacco: Former Cigarettes Passive Smoke Exposure: Never Smokeless Tobacco: Former Sex and Gender Information Value Date Recorded Sex Assigned at Not on file 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 Gender Identity Not on file Sexual Orientation Not on file documented as of this encounter Plan of Treatment Not on file documented as of this encounter Visit Diagnoses Not on filedocumented in this encounter Care Teams Low Vision Therapist Relationship Specialty Start Date End Date Pelon Rodriguez MD [address] [place] [address] [address] [facility] [address] [place] [address] PCP - General Family Medicine 06/23/24 Mary Ellen Mahmood MD [address] [address] Consulting Physician Cardiology 07/26/24 Simran Pruett Primary Director Machine 07/26/24 documented as of this encounter
--- OUTSIDE RECORDS SUMMARY | 2024-08-15 03:46 | XMS_ITS | Encounter Summary ---
Author Organization [facility] Address Critical access hospital[address] [place] [address] Care Team Providers Care Extractor Filler Name Role Phone Malcolm Smart MD Primary Care Provider [phone] Erika Carreon NP Primary Care Provider [phone] Tony Mcelroy MD Unavailable Bar Alegria MD Unavailable [phone] Pelon Rodriguez MD Primary Care Provider [phone] Encounter Details Date Type Department Care Team (Late st Contact Info) Description 2024 Therapy Plan [facility] One Day Services [address] [place] [address] Tony Mcelroy MD [address] [address] Social History Tobacco Use Types Packs/Day Years Used Date Smoking Tobacco: Every Day Cigarettes 0.7 23.3 Started: 2011 Smokeless Tobacco: Never Comments:Has been [...] doctor or pharmacy? Never 09/18/2023 [facility] Utilities Answer Date Recorded In the past 12 months has [employer], oil, or [employer] threatened to shut off services in your [...] How often do you attend chur or denominational services? 1 to 4 times per year 08/13/2023 Do you belong to any clubs o r organizations such as denominational groups, unions, fraternal or athletic groups, or [...] slept in a residential (including now)? No 03/29/2023 Housing Stability Vital [...] any time in the past 12 m [facility], were you homeless or living in a residential (including now)? Patient declined 10/27/2023 Sex and [...] Status No 10/26/2023 12:14 PM CDT Sita uGevara RN Active * Are you blind or [...] 08/17/2024 8:00 AM CDT Home Care Visit [facility] Home Care [address] [place] [address] [place] [address] Minerva Lancaster, RN [phone] (Work) 08/19/2024 2:00 PM CDT Appointment [facility] Day Services [address] [place] [address] Tony Mcelroy MD [address] [facility] [address] [place] [address] 08/24/2024 11:00 AM CDT Home Care Visit [address] [place] [address] Elin Rodriguez RN 08/31/2024 8:00 AM CDT Home Care Visit [facility] Care [address] [address] Minerva Lancaster, RN [phone] (Work) 09/07/2024 8:00 AM CDT Home Care Visit [address] [address] Minerva Lancaster, RN [phone] (Work) 09/14/2024 8:00 AM CDT Home Care Visit [address] [address] Minerva Lancaster, RN [phone] (Work) documented as of this encounter Goals Goal Patient Goal Type Associated Problems Recent Progress Patient-Stated? Author Patient will return to prior living situation and remain independent in ADLs upon discharge from hospital Lifestyle Hiral Chapman RN documented as of this encounter Visit Diagnoses Diagnosis Chronic systolic heart failure (CMS/HCC [facility] Primary Chronic systolic heart failure documented in this encounter Care Teams Extractor Filler Relationship Specialty Start Date End Date Malcolm Smart MD [address] [place] [address] [place] [phone] PCP - General FAMILY PRACTICE 10/26/23 04/21/24 Erika Carreon NP [address] [place] [phone] PCP - General NURSE PRACTITIONER 04/22/24 08/02/24 Pelon Rodriguez MD [address] [place] [phone] PCP - General FAMILY PRACTICE 08/03/24 Tony Mcelroy MD [address] [address] CARDIOVASCULAR DISEASE 04/29/24 Bar Alegria MD [address] [address] INTERNAL MEDICINE 04/29/24 documented as of this encounter
--- OUTSIDE RECORDS SUMMARY | 2024-08-15 03:46 | XMS_ITS | Clinical Summary ---
Author Organization [facility] [place] [address] Address [address] [place] [address] Care Team Providers Care Cleaning Custodian Name Role Phone Michael, Pelon Piedra MD Primary Care Provi panda Erich Infante MD Unavailable Simran Pruett Unavailable Unavailable Allergies Active Allergy [...] 180 tablet 3 07/28/19 25 026 Active potassium chloride ER (KLOR-CON) 20 mEq CR tabletIndications: Hypokalemia Take 1 tablet (20 mEq total) by mouth 4 (four) times a day for 2 days 8 tablet 08/12/19 25 Active spironolactone (ALDACTONE) 25 mg tablet Take 1 tablet (25 mg total) by mouth daily 90 tablet 3 06/23/19 25 025 Discontin u([facility]) Hospital, Clinic, or Other Facility Administered Medication Ordered Dose Route Frequency Start Date End Date Status heparin 10 unit/mL flush 50 Units 50 Units cath As needed 06/23/2024 Active Active Problems No known active problems Encounters Date Type Department Care Team Description 08/13/2024 Telephone [facility] Transplant Heart [address] [facility] [address] [employer] [phone] [place] [address] Ginette Chavez RN 08/11/2024 Telephone [facility] Transplant Heart [address] [place] [address] [address] [facility] [phone] [place] [address] Reena Ames 08/10/2024 Telephone [facility] Cardiology [address] [facility] [address] [place] [phone] Tony Mcelroy MD critical postassium level 08/06/2024 Telephone [facility] Cardiology [address] [place] [address] [place] [phone] Tony Mcelroy MD 08/05/2024 Orders Only [facility] Medical [facility] Cardiology [address] [place] [address] [address] [place] [phone] Kelly Friend NP 08/03/2024 Orders Only [facility] Medical [facility] Cardiology [address] [place] [address] [address] [place] [phone] Wilbert Humphreys MD 07/27/2024 9:45 AM CDT Office Visit [facility] Cardiology [address] [place] [address] Medical Office Building [address] [place] [address] Erich Infante MD Chronic combined systolic and diastolic congestive heart failure (HCC) (Primary Dx) 07/27/2024 Telephone [facility] Transplant Heart [address] [facility] [address] [employer] [phone] [place] [address] Ginette Chavez, MADHURI 07/22/2024 Telephone [facility] Transplant Heart [address] [facility] [address] [employer] [phone] [place] [address] Reena Ames 07/15/2024 Telephone [facility] Home Care Services [address] [place] [address] [address] [place] [phone] Unknown, Notinfile 06/24/2024 Results Follow-Up [facility] [address] [facility] [place] [phone] Erich Infante MD 06/24/2024 Telephone [facility] Cardiology [address] [facility] 8th [place] [address] [place] [phone] Erich Infante MD 06/23/2024 10:00 AM DIRECTOR OF NURSES REGISTRY Office Visit [facility] Cardiology [address] [place] [address] Office Building [address] [place] [address] Lurdes Chiang NP Chronic systolic heart failure (HCC) (Primary Dx) 06/23/2024 8:30 AM DIRECTOR OF NURSES REGISTRY Ancillary Procedure [facility] [address] [place] [address] [address] [place] [phone] Chronic combined systolic and diastolic congestive heart failure (HCC) 06/23/2024 Telephone [facility] Transplant Heart [address] [facility] [address] [facility] -[phone] [place] [address] Royal Lozada 06/23/2024 Telephone [facility] Transplant Heart [address] [facility] [address] [employer] [phone] [place] [address] John Teixeira, MADHURI 06/23/2024 Telephone [facility] Cardiology [address] [place] [address] Medical Office Building [address] [place] [address] Lurdes Chiang NP from Last 3 Months Surgical History Surgery [...] on file Legal Sex Male 9:52 PM DIRECTOR OF NURSES REGISTRY Gender Identity Not on file Sexual Orientation Not on file Obstetrics History Last Filed Vital Signs Vital Sign Reading Time Taken Comments Blood Pressure 108/70 07/27/2024 9:50 AM CDT Pulse 100 07/27/2024 9:50 AM CDT Temperature - - Respiratory Rate 14 04/16/2024 2:23 PM DIRECTOR OF NURSES REGISTRY Oxygen Saturation 98% 07/27/2024 9:50 AM CDT [...] of 2 - PCV) 2008 Covid-19 Vaccine (2023-2 5 season) 2024 07/06/2021 Influenza Vaccine (Season Ended) 2025 DTaP/Tdap/Td Vaccine (2 - Td or Tdap) 11/13/2033 11/14/2023 HPV Vaccines Aged Out No longer eligi ble based on patient's age to complete this topic Procedures Procedure Name Priority Date/Time Associated Diagnosis Comments CARDIOLOGY DOCUMENT SCAN Routine 07/31/2024 4:46 PM CDT CARDIOLOGY DOCUMENT SCAN Routine 07/30/2024 2:43 PM CDT CARDIOLOGY DOCUMENT SCAN Routine 07/29/2024 4:38 PM CDT PRO B-TYPE NATRIURETIC PEPTIDE Routine 07/22/2024 2:15 PM CDT Chronic combined systolic and diastolic congestive heart failure (HCC) Receiving inotropic medication COMPREHENSIVE METABOLIC PANEL Routine 07/22/2024 2:15 PM CDT Chronic combined systolic and diastolic congestive heart failure (HCC) Receiving inotropic medication COMPREHENSIVE METABOLIC PANEL Routine 06/24/2024 B-TYPE NATRIURETIC PEPTIDE Routine 06/24/2024 TRANSTHORACIC ECHO (TTE) COMPLETE W DOPPLER/CF W CONTRAST Routine 06/23/2024 9:34 AM DIRECTOR OF NURSES REGISTRY Chronic combined systolic and diastolic congestive heart failure (HCC) from Last 3 Months Results * Cardiology Document Scan (07/31/2024 4:46 PM CDT) Anatomical Region Laterality Modality Other us Daryl Winters MD CV CARDIAC SERVICES PROCE DURES Final Result * Cardiology Document Scan (07/30/2024 2:43 PM CDT) Anatomical Region Laterality Modality Other us Kelly Friend NP CV CARDIAC SERVICES PROCEDUR ES Final Result * Cardiology Document Scan (07/29/2024 4:38 PM CDT) Anatomical Region Laterality Modality Other us Wilbert Humphreys MD CV CARDIAC SERVICES PROCEDURES F inal Result * Pro B-type natriuretic peptide (07/22/2024 2:15 [...] >90 EXTERNAL LAB SCRIBED eGFR in NonAfrican Tanzanian >90 >90 EXTERNAL LAB Blood 07/22/2024 2:15 PM CDT Erich Infante MD LAB BLOOD ORDERABLES Fi nal Result EXTERNAL LAB * B-type natriuretic peptide (06/24/2024) SCRIBED BNP 238 <125 pg/mL [facility] Blood 06/24/2024 us Erich Infante MD LAB BLOOD ORDERABLES Fi nal Result [facility] * (ABNORMAL) Comprehensive metabolic panel (06/24/2024) SCRIBED Sodium 139 136 - 145 mmol/L [facility] SCRIB Potassium 3.6 3.5 - 5.1 mmol/L [facility] SCRIB Chloride 96(A) 100 - 108 mmol/L [facility] SCRIB Carbon Dioxide 33.3(A) 21 - 32 mmol/L [facility] SCRIB Anion Gap 9.7 5 - 15 mmol/L [facility] SCRIBED Urea Nitrogen (BUN) 21(A) 7 - 18 mg/dl [facility] SCRIB Creatinine 0.90 0.7 - 1.3 mg/dl [facility] SCRIB Glucose 151(A) 70 - 99 mg/dl [facility] SCRIB Calcium 9.4 8.5 - 10.1 mg/dl [facility] SCRIBED Bilirubin 0.9 0.2 - 1.2 mg/dl [facility] Plasma Protein 6.8 6.4 - 8.2 g/dl [facility] SCRIB Albumin 4.1 3.4 - 5.0 g/dl [facility] SCRIBED Alkaline Phosphatase 76 50 - 136 Units/L [facility] SCRIBED Alanine Transaminase (ALT) 58 16 - 60 Units/L [facility] SCRIBED Aspartate Transaminase (AST) 78(A) 15 - 37 Units/L [facility] SCRIBED eGFR in NonAfrican Tanzanian >90 >90 [facility] Alb/glob ratio 1.5 1.0 - 2.0 [facility] BUN_Creat Ratio 23.3 6 - 26 [facility] Blood 06/24/2024 us Erich Infante MD LAB BLOOD ORDERABLES Fi nal Result [facility] * TRANSTHORACIC ECHO (TTE) COMPLETE W DOPPLER/CF W CONTRAST (06/23/2024 9:34 AM DIRECTOR OF NURSES REGISTRY) Anatomical Region Laterality Modality Ultrasound 06/23/2024 8:59 AM DIRECTOR OF NURSES REGISTRY Narrative 06/23/2024 1:32 PM DIRECTOR OF NURSES REGISTRY [facility] Cardiac Diagnostic Lab [address] , [address] [place] [address] Transthoracic Echocardiographic Report Patient Name: SOPHIA HANNA ST : 1990 (34y 2m) Gender: M Study Date: 06/23/2024 08:59:08 AM Ht(Inch): 72 Wt(Lb): 149.91 BSA: 1.86 Mobile Battery Technician: Joanna Mcfarlane RDCS Location: [facility] Order Provider: ERICH INFANTE Heart [...] index. Previously Signed by:Jaciel 06/23/2024 1:31:45 PM DIRECTOR OF NURSES REGISTRY and Cong Nix M.D. 06/23/2024 1:31:45 PM DIRECTOR OF NURSES REGISTRY End of Addendum PROCEDURES: Echocardiographic Report: ([id number], [id number]) Transthoracic complete echo with strain imaging and [...] By: Cong Nix M.D. 06/23/2024 1:31:45 PM DIRECTOR OF NURSES REGISTRY Electronically Signed By: Cong Nix M.D. 06/23/2024 1:31:45 PM DIRECTOR OF NURSES REGISTRY Electronically Amended By: Cong Nix M.D. 07/20/2024 1:51:15 PM CDT [ADDENDUM] Procedure Note Cong Nix MD - 07/20/2024 [facility] Cardiac Diagnostic Lab [address], [address] [place] [address] Transthoracic Echocardiographic Report Patient Name: SOPHIA HANNA ST : 1990 (34y 2m) Gender: M Study Date: 06/23/2024 08:59:08 AM Ht(Inch): 72 Wt(Lb): 149.91 BSA: 1.86 Mobile Battery Technician: Joanna Mcfarlane RDCS Location: [facility] Order Provider:ERICH INFANTE Heart Rate: 111 BMI: 20.33 BP: 111 / 72 Quality: The study images wereof technically good quality. Ref Provider: ARELISERICH Report amended on 2024-07-20 at 13:51:15 CDT: [...] index. Previously Signed by:Jaciel 06/23/2024 1:31:45 PM DIRECTOR OF NURSES REGISTRY and Cong Nix M.D. 06/23/2024 1:31:45 PM DIRECTOR OF NURSES REGISTRY End of Addendum PROCEDURES: Echocardiographic Report: ([id number], [id number]) Transthoracic complete echo withstrain imaging and contrast, [...] LA Length 2C 5.59 cm MV Decel Gxic633.26 msec [ 104.00 - 258.00 ] LA [...] By: Cong Nix M.D. 06/23/2024 1:31:45 PM DIRECTOR OF NURSES REGISTRY Electronically Signed By: Cong Nix M.D. 06/23/2024 1:31:45 PM DIRECTOR OF NURSES REGISTRY Electronically Amended By: Cong Nix M.D. 07/20/2024 1:51:15 PM CDT [ADDENDUM] Erich Infante MD CV ECHO PROCEDURES Edit ed Result - Final from Last 3 Months Insurance ANTHEM ACCESS ANTHEM ACCESS ANTHEM ACCESS Care Teams Cleaning Custodian Relationship Specialty Start Date End Date Pelon Rodriguez MD [address] [place] [address] [facility] [address] [place] [address] PCP - General Family Medicine 06/23/24 Erich Infante MD [address] [address] Consulting Physician Cardiology 07/26/24 Simran Pruett Primary Electrical Intern 07/26/24
--- OUTSIDE RECORDS SUMMARY | 2024-08-15 03:46 | XMS_ITS | Data Portability ---
Author Organization [place] - [facility], PREVIOUS COUNSELING Address [address] [place] [id number] Assessment No assessment recorded. Plan of Treatment Reminders Order Date Submit Date Provider Last Modified By Organization Details Last Modified Time Details Appointments None recorded. Lab drug screen, urine [address], [address] [place] [address], [id number], 3 14:30:27 gamma-gluta myl transferase (ggt), serum 2022 023 JOSHUA [facility], [address] [facility], [place] [address], [place], [address], 3 09:36:04 CMP, serum or plasma 2022 023 STEWARD [facility], [address] [facility], [place] [address], [place], [address], 3 09:36:03 CBC w/ auto diff 2022 023 STEWARD [facility], [address] [facility], [facility] [address], [place], [address], 3 06:35:44 hepatitis C Ab, signal-to-c utoff, serum or plasma 2022 023 JOSHUA [facility], [address] [facility], [facility] [address], [place], [address], 3 12:35:37 Referral None recorded. Procedures None recorded. Surgeries None recorded. Imaging None recorded. Medication Orders naltrexone 50 mg tablet 2022 023 JOSHUA [facility] #[id number], [address] [place], [address], 3 15:50:44 naltrexone 50 mg tablet 2022 023 [facility] #[id number], [address] [place], [address], 3 13:01:30 Patient TargetsNo targets recorded. Patient [...] 14:21:10 06/22/2022 8449 Patient informed to call [facility] Specialty pharmacy to discontinue the Vivitrol shipment has it has not been delivered to the clinic. [email or web address] Not available 06/23/2022 15:52:20 Reason for Referral None Reported. Results Created Date Observation Date Name Description Value Unit Range Abnormal Flag Note LastModifiedBy Organization Detail LastModifiedTime 06/11/19 23 06/12/2022 CBC WITH DIFFE RENTI AL/PL ATELE T WBC 9.9 x10e3 /uL 3.4-10 .8 Not Available [facility] ([facility]) [address] [place], [address], 06/12/2022 06:35:41 06/11/1906/12/2022 CBC WITH DIFFE RENTI AL/PL ATELE T RBC 5.05 x10e6 /uL 4.14-5 .80 Not Available [facility] ([facility]) [address] [place], [address], 06/12/2022 06:35:41 06/11/19 23 06/12/2022 CBC WITH DIFFE RENTI AL/PL ATELE T hemoglobin 16.3 g/dL 13.0-1 7.7 Not Available [facility] ([facility]) [address] [place], [address], 06/12/2022 06:35:41 06/11/1906/12/2022 CBC WITH DIFFE RENTI AL/PL ATELE T hematocrit 46.5 % 37.5-5 1.0 Not Available [facility] ([facility]) [address] [place], [address], 06/12/2022 06:35:41 06/11/19 23 06/12/2022 CBC WITH DIFFE RENTI AL/PL ATELE T MCV 92 fL 79-97 Not Available [facility] ([facility]) [address] [place], [address], 06/12/2022 06:35:41 06/11/19 23 06/12/2022 CBC WITH DIFFE RENTI AL/PL ATELE T MCH 32.3 pg 26.6-3 3.0 Not Available [facility] ([facility]) [address] [facility], [place], [address], 06/12/2022 06:35:41 06/11/19 23 06/12/2022 CBC WITH DIFFE RENTI AL/PL ATELE T MCHC 35.1 g/dL 31.5-3 5.7 Not Available [facility] ([facility]) [address] [facility], [place], [address], 06/12/2022 06:35:41 06/11/19 23 06/12/2022 CBC WITH DIFFE RENTI AL/PL ATELE T RDW 13.4 % 11.6-1 5.4 Not Available [facility] ([facility]) [address] [facility], [place], [address], 06/12/2022 06:35:41 06/11/19 23 06/12/2022 CBC WITH DIFFE RENTI AL/PL ATELE T platelets 196 x10e3 /uL 150-45 0 Not Available [facility] ([facility]) [address] [facility], [place], [address], 06/12/2022 06:35:41 06/11/19 23 06/12/2022 CBC WITH DIFFE RENTI AL/PL ATELE T neutrophils 69 % not estab. Not Available [facility] ([facility]) [address] [facility], [place], [address], 06/12/2022 06:35:41 06/11/19 23 06/12/2022 CBC WITH DIFFE RENTI AL/PL ATELE T lymphs 21 % not estab. Not Available [facility] ([facility]) [address] [facility], [place], [address], 06/12/2022 06:35:41 06/11/19 23 06/12/2022 CBC WITH DIFFE RENTI AL/PL ATELE T monocytes 7 % not estab. Not Available [facility] ([facility]) [address] [facility], [place], [address], 06/12/2022 06:35:41 06/11/19 23 06/12/2022 CBC WITH DIFFE RENTI AL/PL ATELE T eos 1 % not estab. Not Available [facility] ([facility]) [address] [facility], [place], [address], 06/12/2022 06:35:41 06/11/19 23 06/12/2022 CBC WITH DIFFE RENTI AL/PL ATELE T basos 1 % not estab. Not Available [facility] ([facility]) [address] [facility], [place], [address], 06/12/2022 06:35:41 06/11/19 23 06/12/2022 CBC WITH DIFFE RENTI AL/PL ATELE T immature cells DIRECTOR WORK Not Available [facility] ([facility]) [address] [place], [address], 06/12/2022 06:35:41 06/11/19 23 06/12/2022 CBC WITH DIFFE RENTI AL/PL ATELE T neutrophils (absolute) 7.0 x10e3 /uL 1.4-7. 0 Not Available [facility] ([facility]) [address] [place], [address], 06/12/2022 06:35:41 06/11/19 23 06/12/2022 CBC WITH DIFFE RENTI AL/PL ATELE T lymphs (absolute) 2.1 x10e3 /uL 0.7-3. 1 Not Available [facility] ([facility]) [address] [place], [address], 06/12/2022 06:35:41 06/11/19 23 06/12/2022 CBC WITH DIFFE RENTI AL/PL ATELE T monocytes(ab solute) 0.6 x10e3 /uL 0.1-0. 9 Not Available [facility] ([facility]) [address] [facility], [place], [address], 06/12/2022 06:35:41 06/11/19 23 06/12/2022 CBC WITH DIFFE RENTI AL/PL ATELE T eos (absolute) 0.1 x10e3 /uL 0.0-0. 4 Not Available [facility] ([facility]) [address] [facility], [place], [address], 06/12/2022 06:35:41 06/11/19 23 06/12/2022 CBC WITH DIFFE RENTI AL/PL ATELE T baso (absolute) 0.1 x10e3 /uL 0.0-0. 2 Not Available [facility] ([facility]) [address] [facility], [place], [address], 06/12/2022 06:35:41 06/11/19 23 06/12/2022 CBC WITH DIFFE RENTI AL/PL ATELE T immature granulocytes 1 % not estab. Not Available [facility] ([facility]) [address] [facility], [place], [address], 06/12/2022 06:35:41 06/11/19 23 06/12/2022 CBC WITH DIFFE RENTI AL/PL ATELE T immature grans (abs) 0.1 x10e3 /uL 0.0-0. 1 Not Available [facility] ([facility]) [address] [facility], [place], [address], 06/12/2022 06:35:41 06/11/19 23 06/12/2022 CBC WITH DIFFE RENTI AL/PL ATELE T NRBC DIRECTOR WORK Not Available [facility] ([facility]) [address] [facility], [place], [address], 06/12/2022 06:35:41 06/11/19 23 06/12/2022 CBC WITH DIFFE RENTI AL/PL ATELE T hematology comments: DIRECTOR WORK Not Available [facility] ([facility]) [address] [place], [address], 06/12/2022 06:35:41 06/11/19 23 06/12/2022 COMP. METAB OLIC PANEL (14) glucose 105 mg/dL 70-99 above high normal Not Available [facility] ([facility]) [address] [place], [address], 06/12/2022 09:36:03 06/11/19 23 06/12/2022 COMP. METAB OLIC PANEL (14) BUN 10 mg/dL 6-20 Not Available [facility] ([facility]) [address] [place], [address], 06/12/2022 09:36:03 06/11/19 23 06/12/2022 COMP. METAB OLIC PANEL (14) creatinine 0.88 mg/dL 0.76-1 .27 Not Available [facility] ([facility]) [address] [place], [address], 06/12/2022 09:36:03 06/11/19 23 06/12/2022 COMP. METAB OLIC PANEL (14) eGFR 116 mL/mi n/1.7 3 >59 Not Available [facility] ([facility]) [address] [facility] [place], [address], 06/12/2022 09:36:03 06/11/19 23 06/12/2022 COMP. METAB OLIC PANEL (14) BUN/creatini ne ratio 11 9-20 Not Available [facility] ([facility]) [address] [place], [address], 06/12/2022 09:36:03 06/11/19 23 06/12/2022 COMP. METAB OLIC PANEL (14) sodium 142 mmol/ L 134-14 4 Not Available [facility] ([facility]) [address] [facility] [place], [address], 06/12/2022 09:36:03 06/11/19 23 06/12/2022 COMP. METAB OLIC PANEL (14) potassium 3.7 mmol/ L 3.5-5. 2 Not Available [facility] ([facility]) [address] [place], [address], 06/12/2022 09:36:03 06/11/19 23 06/12/2022 COMP. METAB OLIC PANEL (14) chloride 100 mmol/ L 96-106 Not Available [facility] ([facility]) [address] [place], [address], 06/12/2022 09:36:03 06/11/19 23 06/12/2022 COMP. METAB OLIC PANEL (14) carbon dioxide, total 20 mmol/ L 20-29 Not Available [facility] [address] [facility] [place], [address], 06/12/2022 09:36:03 06/11/19 23 06/12/2022 COMP. METAB OLIC PANEL (14) calcium 9.6 mg/dL 8.7-10 .2 Not Available [facility] ([facility]) [address] [facility] [place], [address], 06/12/2022 09:36:03 06/11/19 23 06/12/2022 COMP. METAB OLIC PANEL (14) protein, total 7.5 g/dL 6.0-8. 5 Not Available [facility] ([facility] [address] [facility] [place], [address], 06/12/2022 09:36:03 06/11/19 23 06/12/2022 COMP. METAB OLIC PANEL (14) albumin 5.2 g/dL 4.0-5. 0 above high normal Not Available [facility] ([facility]) [address] [facility] [place], [address], 06/12/2022 09:36:03 06/11/19 23 06/12/2022 COMP. METAB OLIC PANEL (14) globulin, total 2.3 g/dL 1.5-4. 5 Not Available [facility] ([facility]) [address] [facility] [place], [address], 06/12/2022 09:36:03 06/11/19 23 06/12/2022 COMP. METAB OLIC PANEL (14) A/G ratio 2.3 1.2-2. 2 above high normal Not Available [facility] ([facility]) [address] [facility] [place], [address], 06/12/2022 09:36:03 06/11/19 23 06/12/2022 COMP. METAB OLIC PANEL (14) bilirubin, total 0.4 mg/dL 0.0-1. 2 Not Available [facility] ([facility]) [address] [place], [address], 06/12/2022 09:36:03 06/11/19 23 06/12/2022 COMP. METAB OLIC PANEL (14) alkaline phosphatase 75 IU/L 44-121 Not Available [facility] [address] [place], [address], 06/12/2022 09:36:03 06/11/19 23 06/12/2022 COMP. METAB OLIC PANEL (14) AST (SGOT) 50 IU/L 0-40 above high normal Not Available [facility] ([facility]) [address] [place], [address], 06/12/2022 09:36:03 06/11/19 23 06/12/2022 COMP. METAB OLIC PANEL (14) ALT (SGPT) 39 IU/L 0-44 Not Available [facility] ([facility]) [address] [place], [address], 06/12/2022 09:36:03 06/11/19 23 06/12/2022 GGT GGT 51 IU/L 0-65 Not Available [facility] ([facility]) [address] [facility], [place], [address], 06/12/2022 09:36:04 06/11/19 23 06/12/2022 HCV ANTIB ELIJAH RFX TO QUANT PCR HCV Ab <0.1 s/co_ ratio 0.0-0. 9 Not Available [facility] ([facility]) [address] [facility], [place], [address], 06/12/2022 12:35:37 06/11/19 23 06/12/2022 HCV ANTIB ELIJAH RFX TO QUANT PCR interpretati on: Commen t Negat judy Not infec alysno with HCV, unles s recen t infec tion is suspe cted or other evide nce exist s to indic ate HCV infec tion. Not Available [facility] ([facility]) [address] [facility], [place], [address], 06/12/2022 12:35:37 06/11/19 23 06/11/2022 drug scree n, urine AMP negati ve Not Available [address], [address], 06/11/2022 14:29:21 06/11/19 23 06/11/2022 drug scree n, urine BAR negati ve Not Available [address], [address], 06/11/2022 14:29:21 06/11/19 23 06/11/2022 drug scree n, urine BUP negati ve Not Available [address], [address], 06/11/2022 14:29:21 06/11/19 23 06/11/2022 drug scree n, urine BZO positi ve Not Available [address], [address], 06/11/2022 14:29:21 06/11/19 23 06/11/2022 drug scree n, urine YVES negati ve Not Available [address], [address], 06/11/2022 14:29:21 06/11/19 23 06/11/2022 drug scree n, urine MDMA negati ve Not Available [address], [address], 06/11/2022 14:29:21 06/11/19 23 06/11/2022 drug scree n, urine MTD negati ve Not Available [address], [address], 06/11/2022 14:29:21 06/11/19 23 06/11/2022 drug scree n, urine OPI negati ve Not Available [address], [address], 06/11/2022 14:29:21 06/11/19 23 06/11/2022 drug scree n, urine OXY negati ve Not Available [address], [address], 06/11/2022 14:29:21 06/11/19 23 06/11/2022 drug scree n, urine PCP negati ve Not Available [address], [address], 06/11/2022 14:29:21 06/11/19 23 06/11/2022 drug scree n, urine TCA negati ve Not Available [address], [address], 06/11/2022 14:29:21 06/11/19 23 06/11/2022 drug scree n, urine THC positi ve Not Available [address], [address], 06/11/2022 14:29:21 Result Notes None recorded. Problems Name Problem SNOMED Code Status Onset Date Resolution Date Notes Provider Name and Address Organization Details Recorded Time Pancreatitis 55439215 Active 2022 Odilon Michael MD [address] [place] [address], [place], [address] [place] [address] [place] - [facility] 3 17:27:29 Chronic anxiety 701021075 Active 2022 Odilon Michael MD [address] [place] [address], [place], [address] [place] [address] [place] [facility] 3 17:27:29 Alcoholism 1313207 Active 2022 Odilon Michael MD [address] [place] [address], [place], [address] [place] [address] [place] [facility] 3 17:48:24 Anxiety 47229916 Active 2022 Odilon Michael MD [address] [place] [address], [place], [address] [place] [address] [place] [facility] 3 17:48:42 Problem Notes None recorded. Medical Equipment None Reported. Allergies Allergen ID Allergen Name Allergen Category Reaction Reaction Severity Criticality Documentation Date Start Date Code Code System Note Provider Name and Address Organization Details Recorded Time 2020 sulfameth oxazole / trimethop rim medicatio n Not available Not available Not available 06/11/2022 21841 RxNorm Not Available Not Available Not Available [...] Updated DateTime 06/11/2022 182.88 cm 25 kg/m2 68705 g 119 mm[Hg] 89 mm[Hg] Odilon Michael MD [address] [place] [address], [address] , [place] [facility] 14:28:10 Date Recorded Body height Provider Name an d Address Organization Details Last Updated DateTime 06/22/2022 182.88 cm Odilon Michael MD [address] [place] [address], [address], [place] [facility] 06/23/2022 15:45:07 Social History Question Answer Notes LastModified by Organizat ion Details LastModified Time Tobacco Smoking Status Current Every Day Smoker Odilon Michael MD [address] [place] [address], [address], [place] [facility] 06/15/2022 17:52:44 What Is Your Level Of Alcohol Consumption? Heavy Information not available 06/15/2022 Are You Currently Employed? Yes Information not available 06/15/2022 Which Illicit Or Recreational Drugs Have You Used? 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 Odilon Michael MD [address] [place], [address], [place] [facility] 06/15/2022 18:03:23 06/22/2022 text/html Mr. Douglas Wright [...] copies given to him Odilon Michael MD [address] [facility], [place], [address], [facility] 06/23/2022 15:52:23
--- OUTSIDE RECORDS SUMMARY | 2024-08-15 03:46 | XMS_ITS | Encounter Summary ---
Author Organization [facility] Healthcare Address [address] [place] [address] Care Team Providers Care Ground Service Equipment Mechanic Name Role Phone Pelon Rodriguez MD Primary Care Provi panda Mary Ellen Mahmood MD Unavailable [phone] Simran Pruett Unavailable Unavailable Encounter Details Date Type Department Care Team (Late st Contact Info) Description 08/13/2024 Telephone [facility] [address] [facility] [phone] [place] [address] Ginette Chavez, MADHURI Social History Tobacco Use Types Packs/Day Years Used Date Smoking Tobacco: Former Cigarettes Passive Smoke Exposure: Never Smokeless Tobacco: Former Sex and Gender Information Value Date Recorded Sex Assigned at Not on file 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 Pt was great no concerns. OT suppose to see him two days ago, the mom stop them said not to go in. He was intoxicated and belligerent. OT did not go to see him since her was drunk ( a bottle and half of vodka per mom) The HHRN went togo today to try and send him to ER. T- told her he was sober and answer any calls or the door. Step on his milrinone line last night and snapped his line in half. She went out there urgently last night to place a new line and bag. Drank another bottle today per mom. The home health agency will not be seeing the patient outpt anymore. She asked the mom to do a wellness check on him but she said she's not going to check on him anymore she done dealing with him. She called the police and had them do a wellness check. They said he didn't answer but didn't see anything concerning/ documented in this encounter Plan of Treatment Not on file documented as of this encounter Visit Diagnoses Not on filedocumented in this encounter Care Teams Ground Service Equipment Mechanic Relationship Specialty Start Date End Date Pelon Rodriguez MD [address] [place] [address] [address]ANG [address] [address] PCP - General Family Medicine 06/23/24 Mary Ellen Mahmood MD [address] [address] Consulting Physician Cardiology 07/26/24 Simran Pruett Primary Line Installer Trolley 07/26/24 documented as of this encounter
--- OUTSIDE RECORDS SUMMARY | 2024-08-15 03:46 | XMS_ITS | Referral Summary ---
Author Organization [facility] [address] [facility] [address] Address [address] [place] [address] Care Team Providers Care Circular Knitter Name Role Phone Pelon Rodriguez MD Primary Care Provi panda Erich Infante MD Unavailable [phone] Simran Pruett Unavailable Unavailable Encounters Date Type Department Care Team Description 08/13/2024 Telephone [facility] Transplant Heart [address] [facility] [address] [place] [address] Ginette Chavez RN 08/11/2024 Telephone [facility] Transplant Heart [address] [facility] [address] Mailstop [id number] [place] [address] Reena Ames 08/10/2024 Telephone [facility] Cardiology [address] [facility] [address] [place] [address] Tony Mcelroy MD critical postassium level 08/06/2024 Telephone [facility] [address] [facility] [address] [place] [address] Tony Mcelroy MD 08/05/2024 Orders Only [facility] Cardiology [address] [place] [address] Kelly Friend NP 08/03/2024 Orders Only [facility] Cardiology [address] [place] [phone] Wilbert Humphreys MD 07/27/2024 Telephone [facility] Trans[facility] Heart [address] [facility] [address] Mailstop -[phone] [place] [address] Ginette Chavez RN 07/27/2024 9:45 AM CDT Office Visit [facility] Cardiology [facility] Medical Office Building 3 [address] [place] [phone] Erich Infante MD Chronic combined systolic and diastolic congestive heart failure (HCC) (Primary Dx) 07/22/2024 Telephone [facility] Trans[facility] Heart [address] [facility] 3401 Mailstop -[phone] [place] [address] Reena Ames 07/15/2024 Telephone [facility] [address] [facility] [address] [place] [phone] Unknown, Notinfile 06/24/2024 Results Follow-Up [facility] [address] [place] [phone] Erich Infante MD 06/24/2024 Telephone [facility] Cardiology [address] [facility] 8th [place] [address] [place] [phone] Erich Infante MD 06/23/2024 Telephone [facility] 45[address] [facility] 3401 Mailstop -[phone] [place] [address] Royal Lozada 06/23/2024 Telephone [facility] [address] [facility] [address] Mailstop -[phone] [place] [address] John Teixeira, MADHURI 06/23/2024 10:00 AM CLINICAL DATA PROGRAMMER Office Visit [facility] Cardiology [address] [place] [address] Medical Office Building [address] [place] [phone] Lurdes Chiang NP Chronic systolic heart failure (HCC) (Primary Dx) 06/23/2024 8:30 AM CLINICAL DATA PROGRAMMER Ancillary Procedure [facility] [address] [place] [address] [address] [place] [address] Chronic combined systolic and diastolic congestive heart failure (HCC) 06/23/2024 Telephone [facility] Cardiology 10[address] [facility] Medical Office Building 3 [address] [place] [address] Lurdes Chiang NP from Last 3 Months Allergies Active Allergy [...] 90 tablet 3 06/23/19 25 025 Discontin ued(Reord er) Hospital, Clinic, or Other Facility Administered [...] on file Legal Sex Male 9:52 PM CLINICAL DATA PROGRAMMER Gender Identity Not on file Sexual Orientation Not on file Last Filed Vital Signs Vital Sign Reading Time Taken Comments Blood Pressure 108/70 07/27/2024 9:50 AM CDT Pulse 100 07/27/2024 9:50 AM CDT Temperature - - Respiratory Rate 14 04/16/2024 2:23 PM CLINICAL DATA PROGRAMMER Oxygen Saturation 98% 07/27/2024 9:50 AM CDT [...] DOPPLER/CF W CONTRAST Routine 06/23/2024 9:34 AM CLINICAL DATA PROGRAMMER Chronic combined systolic and diastolic congestive heart failure (HCC) from Last 3 Months Results * Cardiology Document Scan (07/31/2024 4:46 PM CDT) Anatomical Region Laterality Modality Other us Daryl Winters MD CV CARDIAC SERVICES PROCE DURLAURIE Final Result * Cardiology Document Scan (07/30/2024 2:43 PM CDT) Anatomical Region Laterality Modality Other us Kelly Friend NP CV CARDIAC SERVICES PROCEDUR ES Final Result * Cardiology Document Scan (07/29/2024 4:38 PM CDT) Anatomical Region Laterality Modality Other Wilbert Humphreys MD CV CARDIAC SERVICES PROCEDURES [...] >90 EXTERNAL LAB SCRIBED eGFR in NonAfrican Filipino >90 >90 EXTERNAL LAB Blood 07/22/2024 2:15 PM CDT us Erich Infante MD LAB BLOOD ORDERABLES Fi nal Result Performing Organization Address City/[facility]/ZIP Co de Phone Number EXTERNAL LAB * B-type natriuretic peptide (06/24/2024) SCRIBED BNP 238 <125 pg/mL [facility] Blood 06/24/2024 us Erich Infante MD LAB BLOOD ORDERABLES Fi nal Result Performing Organization Address City/[facility] Co de Phone Number [facility] * (ABNORMAL) Comprehensive metabolic panel (06/24/2024) SCRIBED Sodium 139 136 - 145 mmol/L [facility] SCRIBED Potassium 3.6 3.5 - 5.1 mmol/L [facility] SCRIBED Chloride 96(A) 100 - 108 mmol/L [facility] SCRIBED Carbon Dioxide 33.3(A) 21 - 32 mmol/L [facility] SCRIBED Anion Gap 9.7 5 - 15 mmol/L [facility] SCRIBED Urea Nitrogen (BUN) 21(A) 7 - 18 mg/dl [facility] SCRIBED Creatinine 0.90 0.7 - 1.3 mg/dl [facility] SCRIBED Glucose 151(A) 70 - 99 mg/dl [facility] SCRIBED Calcium 9.4 8.5 - 10.1 mg/dl [facility] Bilirubin 0.9 0.2 - 1.2 mg/dl [facility] Plasma Protein 6.8 6.4 - 8.2 g/dl [facility] Albumin 4.1 3.4 - 5.0 g/dl [facility] Alkaline Phosphatase 76 50 - 136 Units/L [facility] Alanine Transaminase (ALT) 58 16 - 60 Units/L [facility] Aspartate Transaminase (AST) 78(A) 15 - 37 Units/L [facility] eGFR in NonAfrican Filipino >90 >90 [facility] Alb/glob ratio 1.5 1.0 - 2.0 [facility] BUN_Creat Ratio 23.3 6 - 26 [facility] Blood 06/24/2024 us Erich Infante MD LAB BLOOD ORDERABLES nal Result [facility] * TRANSTHORACIC ECHO (TTE) COMPLETE W DOPPLER/CF W CONTRAST (06/23/2024 9:34 AM CLINICAL DATA PROGRAMMER) Anatomical Region Laterality Modality Ultrasound 06/23/2024 8:59 AM CLINICAL DATA PROGRAMMER Narrative 06/23/2024 1:32 PM CLINICAL DATA PROGRAMMER Heart [facility] Cardiac Diagnostic Lab [address], [address] [place] [address] Transthoracic Echocardiographic Report Patient Name: SOPHIA HANNA ST : 1990 (34y 2m) Gender: M Study Date: 06/23/2024 08:59:08 AM Ht(Inch): 72 Wt(Lb): 149.91 BSA: 1.86 Law Firm Receptionist: Joanna Mcfarlane RDCS Location: [facility] Order Provider: ARELISERICH Heart Rate: 111 BMI: 20.33 BP: 111 [...] index. Previously Signed by:Jaciel 06/23/2024 1:31:45 PM CLINICAL DATA PROGRAMMER and Cong Nix M.D. 06/23/2024 1:31:45 PM CLINICAL DATA PROGRAMMER End of Addendum PROCEDURES: Echocardiographic Report: ([id number], [id number]) Transthoracic complete echo with strain imaging and [...] By: Cong Nix M.D. 06/23/2024 1:31:45 PM CLINICAL DATA PROGRAMMER Electronically Signed By: Cong Nix M.D. 06/23/2024 1:31:45 PM CLINICAL DATA PROGRAMMER Electronically Amended By: Cong Nix M.D. 07/20/2024 1:51:15 PM CDT [ADDENDUM] Procedure Note Cong Nix MD - 07/20/2024 [facility] Cardiac Diagnostic Lab [address] [place] [address] Transthoracic Echocardiographic Report Patient Name: SOPHIA HANNA ST : 1990 (34y 2m) Gender: M Study Date: 06/23/2024 08:59:08 AM Ht(Inch): 72 Wt(Lb): 149.91 BSA: 1.86 Law Firm Receptionist: Joanna Mcfarlane RDCS Location: [facility] Order Provider:ERICH INFANTE Heart Rate: [...] leftventricle based on volume index. Previously Signed by:DaydayForPrecious 06/23/2024 1:31:45 PM CLINICAL DATA PROGRAMMER and Cong Nix M.D. 06/23/2024 1:31:45 PM CLINICAL DATA PROGRAMMER End of Addendum PROCEDURES: Echocardiographic Report: ([id number], [id number]) Transthoracic complete echo withstrain imaging and contrast, [...] LA Length 2C 5.59 cm MV Decel Xyww544.26 msec [ 104.00 - 258.00 ] LA [...] By: Cong Nix M.D. 06/23/2024 1:31:45 PM CLINICAL DATA PROGRAMMER Electronically Signed By: Cong Nix M.D. 06/23/2024 1:31:45 PM CLINICAL DATA PROGRAMMER Electronically Amended By: Cong Nix M.D. 07/20/2024 1:51:15 PM CDT [ADDENDUM] Erich Infante MD ECHO PROCEDURES Edit ed Result - Final from Last 3 Months Insurance [facility] Care Teams Circular Knitter Relationship Specialty Start Date End Date Pelon Rodriguez MD [address] [facility] [address] [facility] [address] [place] [address] PCP - General Family Medicine 06/23/24 Erich Infante MD [address] [address] Consulting Physician Cardiology 07/26/24 Simran Pruett Primary Appian Developer 07/26/24
--- OUTSIDE RECORDS SUMMARY | 2024-08-15 03:47 | XMS_ITS | Data Portability ---
Author Organization [facility] [employer], Main Office Address [address] [place] [address] Care Team Providers Care Baling Press Operator Name Role Phone JOSE J JUSTIN Weed Burner Assessment No assessment recorded. Plan of Treatment Reminders Order Date Submit Date Provider Last Modified By Organization Details Last Modified Time Details Appointments None recorded. Lab CBC w/ auto diff 2023 [facility] Outpatient Lab, [address] [place], [address], 5 19:38:54 CMP, serum or plasma [address] Outpatient Lab, [address] [place], [address], 4 17:16:55 lipid panel, serum 2023 024 [facility] (Lab), [address] [place], [address], 4 08:13:06 TSH + free T4, serum [address] Outpatient Lab, [address] [place], [address], 4 17:16:55 HbA1c (hemoglobi n A1c), blood 2023 024 [facility] Outpatient Lab, [address] [place], [address], 4 08:13:06 Referral None recorded. Procedures None recorded. Surgeries None recorded. Imaging None recorded. Medication Orders zolpidem 10 mg tablet 2023 [facility], [address], [place], [place], [id number], 4 17:09:42 clonazepam 2 mg tablet 2023 024 [facility]00555, [address], [place], [place], [id number], 4 17:09:40 hydrocodon e 10 mg-acetami nophen 325 mg tablet 2023 024 [facility]56657, [address], [place], [place], [id number], 4 17:09:36 cyclobenza elen 5 mg tablet 2023 024 [facility]09599, [address], [place], [place], [id number], 4 17:09:35 furosemide 20 mg tablet 2023 024 [facility]64033, [address], [place], [place], [id number], 4 17:09:35 midodrine 10 mg tablet 2023 024 [facility]22205, [address], [place], [place], [id number], 4 15:15:22 Patient TargetsNo targets recorded. Patient Instructions Encounter Date Encounter Id Patient Instructions Last Modified By Organization Details Last Modified Time 03/22/2024 [id number] Follow up in 3 months if not continuing hospice. Obtain labs Tests: Referral: Recommend: Tetanus vaccine Not available 03/22/2024 14:52:15 04/13/2024 [id number] Follow up in 3 months Prescriptions sent to pharmacy Obtain labs Tests: Referral: Recommend: Tetanus vaccine Shingles vaccine Not available 04/13/2024 17:08:37 Reason for Referral None Reported. Results Created Date Observation Date Name Description Value Unit Range Abnormal Flag Note LastModifiedBy Organization Detail LastModifiedTime 07/30/1907/28/2024 XR, chest , 2 view No observ ation record ed. [id number] [facility] [address], [place], [address], 08/04/2024 09:02:45 Result Notes None recorded. Problems Name Problem SNOMED Code Status Onset Date Resolution Date Notes Provider Name and Address Organization Details Recorded Time Pain in bilateral legs 9683470777291 9108 Active 2023 Erika Crareon APRN [address], [address], [place], [address], [employer] 4 14:54:44 Heart failure 00423068 Active 2023 Erika Carreon APRN [address], [address], [place], [address], [employer] 4 08:36:05 Anxiety 62015012 Active 2023 Erika Carreon APRN [address], [address], [place], [address], [employer] 4 16:57:51 Insomnia 057728626 Active 2023 Erika Carreon APRN [address], [address], [place], [address], [employer] 4 17:05:06 Pain in lower limb 19965082 Active 2023 Erika Carreon APRN [address], [address], [place], [address], [employer] 4 17:05:54 Prediabetes 327991623 Active 2024 Erika Carreon APRN [address], [address], [place], [address], [employer] 19:38:15 Problem Notes None recorded. Procedures Surgical History Date Name Laterality Status Provider Name and Address Organization Details Recorded Time extracorporeal membrane oxygenation completed Freida Johnson [place] [employer] [facility] 03/22/2024 14:22:05 Ankle Surgery completed Freida Johnson MA [facility] [employer] [facility] 03/22/2024 14:22:16 Imaging Results Imaging Date Name Status LastModified by Organiz ation Details LastModified Time 07/28/2024 XR, chest, 2 view completed [address], [place], [address], 08/04/2024 09:02:45 Procedure Notes None recorded. Medical Equipment None Reported. Allergies Allergen ID Allergen Name Allergen Category Reaction Reaction Severity Criticality Documentation Date Start Date Code Code System Note Provider Name and Address Organization Details Recorded Time 75542 sulfameth oxazole / trimethop rim medicatio n Not available Not available Not available 03/22/2024 41330 RxNorm Freida Johnson MA null, [facility] [employer] 14:07:29 Medications Name Sig Start Date Stop Date Status Note LastModified by Organization Details LastModified Time hs after hours fee AFTER hours fee 03/22 [...] Updated DateTime 4 182.88 cm 18 kg/m2 05713.7 9 g 98.2 [degF] 86 /min 99 % 99 % 7 120 mm[Hg] 64 mm[Hg] Freida Johnson MA [place] [employer] 4 14:07:07 Date Recorded Body height Body mass index (BMI) Body weight Body temperature Heart rate Oxygen saturation Oxygen saturation in Arterial blood by Pulse oximetry Pain severity - 0-10 verbal numeric rating [Score] - Reported Systolic blood pressure Diastolic blood pressure Provider Name and Address Organization Details Last Updated DateTime 4 182.88 cm 20.1 kg/m2 69420.6 7 g 98 [degF] 102 /min 99 % 99 % 6 108 mm[Hg] 64 mm[Hg] Freida Johnson MA [employer] [facility] [employer] 4 16:42:11 Social History Question Answer Notes LastModified by Organizat ion Details LastModified Time Tobacco Smoking Status Former Smoker Freida Johnson MA [facility] [employer] [facility] [employer] 03/22/2024 14:20:20 What Is Your Level Of [...] Anxious, Or Unable To Sleep At Night)? [id number] Information not available 03/22/2024 Do You Use [...] Immunizations Vaccine Type Date Status Note Provider Nam e and Address Organization Details Recorded Time COVID-19, mRNA, LNP-S, PF, 100 mcg/0.5mL dose or 50 mcg/0.25mL dose 07/06/2021 completed Erika Carreon APRN [address] [facility], [address], [place], [address], [facility] 03/22/2024 14:25:35 Past Encounters Encounter ID Performer Location Encounter Start Date Encounter Closed Date Diagnosis/Indication Diagnosis SNOMED-CT Code Diagnosis ICD10 Code Diagnosis Note [id number] Erika Carreon APRN [facility] Internal Med [facility] [address] [facility] [address] [place] [address] 03/22/2024 13:52:57 03/22/2024 15:27:15 Heart failure 91744958 I50.9 [id number] Erika Carreon APRN [facility] Internal Med [address] [facility] 15 [place] [address] 04/13/2024 16:31:22 04/13/2024 17:18:13 Anxiety 95147573 F41.9 Insomnia 485886928 G47.0 0 Pain in lower limb 49317 006 M79.606 Heart failure 03914728 I 50.9 Diabetes m ellitus screening 270740316 Z13.1 Hyperlipid emia screening 366996833 Z13.220 Screening for disorder 090782679 Z13.9 Thyroid di sorder screening 858822741 Z13.29 Health Concerns Section Related Observation LastModified by Organization Detai ls LastModified Time None Recorded Concern Status LastModified by Organization Details LastModified Time None Recorded Advance Directives Directive None Recorded Payers Encounter Date Sequence Insurance Name Policy Number Policy Rangel Covered Member ID Rangel Member ID Guarantor Name 03/22/2024 1 [place] [id number] Douglas Wright [id number] Douglas Wright 04/13/2024 1 [place] [id number] Douglas Wright [id number] Douglas Wright Notes Date Note Type Note Provider Name and Address Organization Details Recorded Time 03/22/2024 text/html Douglas presents today to establish care as a new patient. He is currently on hospice due to heart failure. He states that he wants to get off of hospice. He is currently on a continuous infusion of milrinone. He states that he was at [facility] for a month and sent home on hospice due to the heart failure. He states his EF was at 20 when he left the hospital. 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 He states that he has an appointment with a production illustrator on 04/05/2024. He cannot get off of hospice until he has a primary provider and a production illustrator in place. Erika Carreon APRN [address], [address], [place], [address], [employer] [facility] [employer] 03/22/2024 15:18:21 04/13/2024 text/html Douglas presents today to discuss medications. Patient states that he is revoking his hospice care effective of 04/15/2024. He has an appointment with production illustrator on 04/16/2024. He states that he is [...] milrinone. He states that he was at [facility] for a month and sent home on hospice due to the heart failure. He states his EF was at 20 when he left the hospital. 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 He states that he has an appointment with a production illustrator on 04/05/2024. He cannot get off of hospice until he has a primary provider and a production illustrator in place. Erika Carreon APRN [address], [address], [place], [address], [employer] [facility] 04/13/2024 17:16:49
--- OUTSIDE RECORDS SUMMARY | 2024-08-15 03:47 | XMS_ITS | Encounter Summary ---
Author Organization [facility] Address [address] [place] [address] Care Team Providers Care Belt Conveyor Drier Name Role Phone Tony Mcelroy MD Unavailable Bar Alegria MD Unavailable [phone] Pelon Rodriguez MD Primary Care Provider [phone] Encounter Details Date Type Department Care Team (Late st Contact Info) Description 08/10/2024 Orders Only [facility] [address] [place] [address] Tony Mcelroy MD [address] [address] Social History Tobacco Use Types [...] from your doctor or pharmacy? Never 09/18/2023 [facility] Utilities Answer Date Recorded In the past 12 months has th e [employer], gas, oil, or water company threatened to [...] How often do you attend chur or zoroastrianism services? 1 to 4 times per year 08/13/2023 Do you belong to any clubs o r organizations such as confucianist groups, unions, fraternal or athletic groups, or [...] care, and heating? Patient declined 10/27/2023 [facility] - Occupational [...] place to sleep or slept in a long-term (including now)? No 03/29/2023 Housing Stability Vital [...] any time in the past 12 m [facility], were you homeless or living in a long-term (including now)? Patient declined 10/27/2023 Sex and [...] Assessment Author Status No 10/26/2023 12:14 PM MARYT Sita Guevara RN Active documented as of this encounter Mental Status * Because of a physical, mental, or emotional condition, do you have serious difficulty concentrating, remembering, or making decisions? Answer Entry Date Author Status No 10/26/2023 12:14 PM MARYT Sita Guevara RN Active documented in this encounter Plan of Treatment Upcoming Encounters Date Type Department Care Team (Late st Contact Info) Description 08/17/2024 8:00 AM CDT Home Care Visit [facility] [address] [place] [address] Minerva Lancaster RN [phone] (Work) 08/19/2024 2:00 PM CDT Appointment [facility] [address] [place] [address] Tony Mcelroy MD [address] [facility] [address] [place] [id number] 08/24/2024 11:00 AM CDT Home Care Visit [address] [address] Elin Rodriguez RN 08/31/2024 8:00 AM CDT Home Care Visit [address] [address] Minerva Lancaster, RN [phone] (Work) 09/07/2024 8:00 AM CDT Home Care Visit [address] [address] Minerva Lancaster, RN [phone] (Work) 09/14/2024 8:00 AM CDT Home Care Visit [address] [address] Minerva Lancaster, RN [phone] (Work) documented as of this encounter Goals Goal Patient Goal Type Associated Problems Recent Progress Patient-Stated? Author Patient will return to prior living situation and remain independent in ADLs upon discharge from hospital Lifestyle No Hiral Diamond, MADHURI documented as of this encounter Results * (ABNORMAL) CBC W/DIFF AUTOMATED (08/10/2024 11:30 AM CDT) WBC 6.23 4.4 - 11.0 x10'3/uL 08/10/2024 1:21 PM CDT [facility] RBC 3.49(L) 4.50 - 5.90 x10'6/uL 08/10/2024 1:21 PM T [facility] HGB 10.5(L) 14.0 - 17.5 G/DL 08/10/2024 1:21 PM T [facility] HCT 32.0(L) 41.5 - 50.4 % 08/10/2024 1:21 PM T [facility] MCV 91.7 80.0 - 96.0 FL 08/10/2024 1:21 PM T [facility] MCH 30.1 26.5 - 31.4 PG 08/10/2024 1:21 PM T [facility] MCHC 32.8 31.9 - 34.8 G/DL 08/10/2024 1:21 PM T [facility] RDW 15.6(H) 12.3 - 14.3 % 08/10/2024 1:21 PM T [facility] PLT 155 151 - 353 x10'3/uL 08/10/2024 1:21 PM T [facility] MPV 10.7 9.7 - 11.9 FL 08/10/2024 1:21 PM T [facility] RBC MORPHOLOGY NORMAL 08/10/2024 1:21 PM T [facility] PLT MORPH. NORMAL 08/10/2024 1:21 PM T [facility] WBC MORPHOLOGY NORMAL 08/10/2024 1:21 PM T [facility] LYMPHOCYTES % 19.4 15.8 - 45.0 % 08/10/2024 1:21 PM T [facility] NEUTROPHILS % 69.7 42.1 - 71.9 % 08/10/2024 1:21 PM CDT [facility] MONOCYTES % 9.0 5.7 - 12.5 % 08/10/2024 1:21 PM CDT [facility] EOSINOPHILS 1.1 0.0 - 5.6 % 08/10/2024 1:21 PM CDT [facility] BASOPHILS 0.5 0.0 - 1.3 % 08/10/2024 1:21 PM CDT [facility] ABS. NEUTROPHILS 4.34 1.40 - 6.00 x10'3/uL 08/10/2024 1:21 PM CDT [facility] IMMATURE GRANS % 0.3 0.0 - 0.5 % 08/10/2024 1:21 PM CDT [facility] ABS. LYMPHOCYTES 1.21 0.80 - 4.70 x10'3/uL 08/10/2024 1:21 PM CDT [facility] 08/10/2024 11:3 0 AM CDT Tony Mcelroy MD LABORATORY Final Result [facility] [address] [place] [address], * (ABNORMAL) PRO-BRAIN NATRIURETIC PEPTIDE (08/10/2024 11:30 AM CDT) PRO-B TYPE NATRIURETIC PEPTIDE 774(H) <125 PG/ML 08/10/2024 2:16 PM CDT [facility] Comment: CUT POINTS [...] us Tony Mcelroy MD LABORATORY Final Result [facility] [address] [place] [address], [place] [phone] * (ABNORMAL) BASIC METABOLIC PANEL (08/10/2024 11:30 AM CDT) GLUCOSE 234(H) 70 - 99 MG/DL 08/10/2024 2:16 PM CDT [facility] BUN 21(H) 7 - 18 MG/DL 08/10/2024 2:16 PM CDT [facility] CREATININE S/P/B 0.74 0.7 - 1.3 MG/DL 08/10/2024 2:16 PM CDT [facility] SODIUM S/P/B 134(L) 136 - 145 MMOL/L 08/10/2024 2:16 PM CDT [facility] POTASSIUM S/P/B 2.9(LL) 3.5 - 5.1 MMOL/L 08/10/2024 2:30 PM CDT [facility] Comment: Critical Result(s) Called at: 14:27:57 on 08/10/2024 by: Rabia Denny to and read back by:VIRGIE BEARD RN [facility] S/P/B 92(L) 100 - 108 MMOL/L 08/10/2024 2:16 PM CDT [facility] CO2 34.9(H) 21 - 32 MMOL/L 08/10/2024 2:16 PM CDT [facility] CALCIUM S/P/B 9.5 8.5 - 10.1 MG/DL 08/10/2024 2:16 PM CDT [facility] ANION GAP 7.1 5 - 15 MMOL/L 08/10/2024 2:16 PM CDT [facility] BUN CREATININE RATIO 28.4(H) 6 - 26 08/10/2024 2:16 PM CDT [facility] GFR ESTIMATE >90 >90 ML/MIN/1.7 3 M2 08/10/2024 2:16 PM CDT [facility] Comment: NOTE: eGFR is not calculated for patients <18 years of age. This is an estimated GFR calculation using the new CKD EPI creatinine equation without race and so does not require a correction factor for race. This estimated GFR should not be used for calculating drug doses. 08/10/2024 11:3 0 AM CDT Tony Mcelroy MD LABORATORY Final Result [facility] [address] [place] [address], [place] [phone] documented in this encounter Visit Diagnoses Diagnosis Alcoholic cardiomyopathy (CMS/HCC HHS/HCC)- Primary Alcoholic cardiomyopathy Chronic systolic heart failure (CMS/HCC HHS/HCC) Chronic systolic heart failure documented in this encounter Care Teams Belt Conveyor Drier Relationship Specialty Start Date End Date Pelon Rodriguez MD [address] [place] [address] [phone] PCP - General FAMILY PRACTICE 08/03/24 Tony Mcelroy MD [address] [facility] [address] [place] [address] CARDIOVASCULAR DISEASE 04/29/24 Bar Alegria MD [address] [facility] [address] [place] [address] INTERNAL MEDICINE 04/29/24 documented as of this encounter
--- OUTSIDE RECORDS SUMMARY | 2024-08-15 03:47 | XMS_ITS | Clinical Summary ---
Author Organization [facility] Address [address] [place] [address] Care Team Providers Care Kettle Loader Name Role Phone An Kamara INO-TURN OPERATOR Primary Care Provider + Source Comments [facility],non-owned Affiliates and Associated Physician Practices is amultiple site organization consisting of ambulatory clinics and hospital sitesin [place] and [place]. This disclosure is being madepursuant to the Care Everywhere program and may not contain all information available regarding this patient. Last updated 18.[facility] Allergies Active Allergy Reactions Criticality Noted Date Comments Sulfamethoxazole W-Trimethoprim Unknown 09/2024 Medications * Be aware that medications may not be up to date on this document. Alwaysverify current medications with the patient. clonazePAM (KlonoPIN) 0.5 MG tabletIndicati ons:Anxiety Take 2 (two) tablets by mouth 2 times daily Reasons: Feeling Anxious Active Nutritional Supplement LIQD Take 1 container by mouth 3 times daily Low Calorie High Protein Supplement Examples: Ensure High Protein/Boost High Protein/Premier Protein High Calorie High Protein Supplement Examples: Ensure Enlive/Ensure Plus/Boost Plus/Equate Plus Diabetic Supplement Examples: Ensure High Protein/Glucerna/B oost Glucose Control/Enterex Diabetic Renal Supplement Examples: Nepro/Novosource Renal Clear Liquid Supplement Examples: Ensure Clear/Premier Protein Clear/Resource Boost Breeze/Prosource High Protein Gelatin Vegan or Milk Free Supplement Examples: Ensure Plant/Orgain Active oxyCODONE, immediate release, (Roxicodone) 5 MG tabletIndicati ons:Acute Pain Take 2 (two) tablets by mouth every 4 hours as needed Reasons: Acute Pain 12 tablet 02/17/2024 5:42 PM CDT 4 Active cyclobenzaprin e (Flexeril) 5 MG tablet Take 1 (one) tablet by mouth every 6 hours as needed 12 tablet 02/17/2024 5:42 PM CDT 4 Active midodrine (Proamatine) 10 MG tablet Take 1 (one) tablet by mouth 3 times daily before meals 9 tablet 02/17/2024 5:42 PM CDT 4 Active Additional Information Patient not taking.Reason: Provider adjusted, Reported on 06/30/2024 furosemide (Lasix) 20 MG tablet Take 1 (one) tablet by mouth once daily 3 tablet 02/17/2024 5:42 PM CDT 4 Active nitroGLYCERIN (Nitro-Bid) 2 % ointment Apply 1 (one) inch to affected area 2 times daily 30 g 4 Active Blood Glucose Monitoring Suppl (Blood Glucose Monitor System) w/Device KITIndications :Diabetes Mellitus Use 1 Each as directed Reasons: Diabetes 1 Each 07/09/2024 12:25 PM ESCALATOR INSTALLER 5 Active blood glucose test stripIndicatio ns:Diabetes Mellitus USE 1 STRIP ONCE DAILY 100 strip 1 07/09/2024 12:25 PM ESCALATOR INSTALLER 5 Active lancetsIndicat ions:Diabetes Mellitus USE 1 LANCET ONCE DAILY 100 Each 1 07/09/2024 12:25 PM ESCALATOR INSTALLER 5 Active Insulin Pen Needle 32G X 4 MM MISCIndication s:Diabetes Mellitus Use 1 Each ONCE DAILY 100 Each 1 07/09/2024 12:25 PM ESCALATOR INSTALLER 5 Active milrinone (Primacor) 20-5 MG/100ML-% infusion 6.35 mcg/min by Intravenous route continuous 5 Active pantoprazole EC (Protonix) 40 MG tablet Take 1 (one) tablet by mouth 2 times daily 30 tablet 5 Active Lantus SoloStar pen Inject 5 (five) Units subcutaneously at bedtime If blood glucose greater than 140 15 mL 07/09/2024 12:25 PM ESCALATOR INSTALLER Active Active Problems Problem Noted Date Diagnosed [...] Department Care Team Description 07/07/2024 4:31 PM ESCALATOR INSTALLER Anesthesia Event [facility] [address] [place] [address] Tacho Pelaez DO Brown, Gina F, MD 07/07/2024 3:44 PM ESCALATOR INSTALLER - 07/07/2024 4:14 PM ESCALATOR INSTALLER Surgery [facility] [address] [place] [address] Moy Zarco MD EGD(>1630) 06/30/2024 2:11 PM ESCALATOR INSTALLER - 07/09/2024 1:53 PM ESCALATOR INSTALLER Hospital Encounter [facility] 6S ACUTE [address] [place] [address] Daryl Julian MD Heis, Farah, MD Chinnery, Akrin, MD Francis Morel, Garry A, MD Ullah, Aman, MD Syed, Piotr Britt MD Hospitalist Discharge Disposition: Home or Self Care 06/30/2024 Travel from Last 3 Months Immunizations Immunization Administration Dates Next Due TDAP (7yrs+) 11/14/2023 [...] and heating? Not hard at all 07/02/2024 [facility] - Occupational [...] slept in a jail (including now)? No 02/09/2024 Housing Stability Vital Sign Answer Bryan e Recorded In the last 12 months, was t here a time when you were not able to pay the mortgage or rent on time? Yes 07/02/2024 In the past 12 months, how m any times have you moved where you were living? 2 07/02/2024 At any time in the past 12 m [facility], were you homeless or living in a jail (including now)? Yes 07/02/2024 Sex and Gender Information Value Date Recorded Sex Assigned at Not on file Legal Sex Male 11:36 AM CDT Gender Identity Not on file Sexual Orientation Not on file Last Filed Vital Signs Vital Sign Reading Time Taken Comments Blood Pressure 92/64 07/09/2024 4:46 AM ESCALATOR INSTALLER Pulse 83 07/09/2024 4:46 AM ESCALATOR INSTALLER Temperature 36.9 C (98.5 F) 07/09/2024 4:46 AM ESCALATOR INSTALLER Respiratory Rate 20 07/09/2024 4:46 AM ESCALATOR INSTALLER Oxygen Saturation 99% 07/09/2024 12: 22 PM ESCALATOR INSTALLER Inhaled Oxygen Concentration 40% 02/09/2024 9 :00 AM CDT Weight 61.1 kg (134 lb 12.8 oz) 07/08/2024 6:32 AM ESCALATOR INSTALLER Height 182.9 cm (6') 06/30/2024 8:17 PM ESCALATOR INSTALLER Body Mass Index 18.28 06/30/2024 8:17 PM ESCALATOR INSTALLER Plan of Treatment Health Maintenance Due Date Last Done Comments HEPATITIS B VACCINE (1 of 3 - 19+ 3-dose series) 2008 PNEUMOCOCCAL VACCINE (1 of 2 - PCV) 2008 COVID-19 VACCINE (2 - 2023-2 5 season) 2024 07/06/2021 DEPRESSION SCREENING 05/05/2024 INFLUENZA VACCINE (Season Ended) 2025 DTAP/TDAP/TD VACCINES (2 - T d or [...] this topic Medical Devices Implanted Type [employer] Device Identifier Shelf Expiration Date Model / Serial / Lot Set Vntrc Ast 17.4x13.8in Impella Cp 9.3 - [id number] Implanted:Qty: 1 on 02/01/2024 by Latha Mahmood MD at [facility] [employer] 10/02/2025 [id number] / [id number] / [id number] Graft Cv 10mm 30cm [facility] [address] Polystr 2 Vlr - [id number] Implanted:Qty: 1 on 02/05/2024 by Heriberto Choudhary MD at [facility] [employer] 10/02/2028 [id number] / [id number] Dev Vntrc Ast Impella 5.5 Smartassist Implanted:Qty: 1 on 02/05/2024 by Heriberto Choudhary MD at [facility] N/A: Heart [employer] 10/02/2025 [id number] / / Patch Cv 8x.8cm Phot[employer] Decellularized Implanted:Qty: 1 on 02/05/2024 by Heriberto Choudhary MD at [facility] Left: Arterial [employer] [id number] 04/19/2025 PFP0.8X8 / / [id number] Description:implanted in lef t femoral artery and left subclavian artery Procedures Procedure Name Priority Date/Time Associated Diagnosis Comments PREPARE RBC LEUKOREDUCED UNIT Routine 07/10/2024 1:17 AM ESCALATOR INSTALLER GLUCOSE - POINT OF CARE Routine 07/09/2024 11:52 AM ESCALATOR INSTALLER GLUCOSE - POINT OF CARE Routine 07/09/2024 8:25 AM ESCALATOR INSTALLER HEMOGLOBIN AM Draw 07/09/2024 6:01 AM ESCALATOR INSTALLER COMPREHENSIVE METABOLIC PANEL AM Draw 07/09/2024 12:13 AM ESCALATOR INSTALLER Idiopathic acute pancreatitis, unspecified complication status HEMOGLOBIN AM Draw 07/09/2024 12:13 AM ESCALATOR INSTALLER HEMOGLOBIN AM Draw 07/08/2024 6:44 PM ESCALATOR INSTALLER GLUCOSE - POINT OF CARE Routine 07/08/2024 5:34 PM ESCALATOR INSTALLER HEMOGLOBIN AM Draw 07/08/2024 12:15 PM ESCALATOR INSTALLER GLUCOSE - POINT OF CARE Routine 07/08/2024 11:56 AM ESCALATOR INSTALLER GLUCOSE - POINT OF CARE Routine 07/08/2024 7:35 AM ESCALATOR INSTALLER HEMOGLOBIN AM Draw 07/08/2024 6:29 AM ESCALATOR INSTALLER COMPREHENSIVE METABOLIC PANEL AM Draw 07/08/2024 12:17 AM ESCALATOR INSTALLER Idiopathic acute pancreatitis, unspecified complication status HEMOGLOBIN AM Draw 07/08/2024 12:17 AM ESCALATOR INSTALLER GLUCOSE - POINT OF CARE Routine 07/07/2024 10:17 PM ESCALATOR INSTALLER HEMOGLOBIN AM Draw 07/07/2024 5:53 PM ESCALATOR INSTALLER PATHOLOGY TISSUE Routine 07/07/2024 4:39 PM ESCALATOR INSTALLER Gastrointestinal hemorrhage, unspecified gastrointestinal hemorrhage type [facility] ED EGD FLEX TRANSORAL DX 07/07/2024 4:26 PM ESCALATOR INSTALLER Gastrointestinal hemorrhage, unspecified gastrointestinal hemorrhage type EGD Routine 07/07/2024 4:14 PM ESCALATOR INSTALLER GLUCOSE - POINT OF CARE Routine 07/07/2024 4:07 PM ESCALATOR INSTALLER GLUCOSE - POINT OF CARE Routine 07/07/2024 11:57 AM ESCALATOR INSTALLER HEMOGLOBIN AM Draw 07/07/2024 11:21 AM ESCALATOR INSTALLER GLUCOSE - POINT OF CARE Routine 07/07/2024 7:31 AM ESCALATOR INSTALLER HEMOGLOBIN AM Draw 07/07/2024 5:57 AM ESCALATOR INSTALLER COMPREHENSIVE METABOLIC PANEL AM Draw 07/07/2024 1:25 AM ESCALATOR INSTALLER Idiopathic acute pancreatitis, unspecified complication status HEMOGLOBIN AM Draw 07/07/2024 1:25 AM ESCALATOR INSTALLER HEMOGLOBIN AM Draw 07/06/2024 8:00 PM ESCALATOR INSTALLER GLUCOSE - POINT OF CARE Routine 07/06/2024 5:[address] ANGIO ABDOMEN PELVIS STAT 07/06/2024 4:53 PM ESCALATOR INSTALLER Idiopathic acute pancreatitis, unspecified complication status Anemia, unspecified type PREPARE RBC LEUKOREDUCED UNIT Routine 07/06/2024 4:18 PM ESCALATOR INSTALLER JOHN DIRECT STAT 07/06/2024 2:46 PM ESCALATOR INSTALLER TYPE + SCREEN PANEL Routine 07/06/2024 2 :46 PM ESCALATOR INSTALLER HAPTOGLOBIN STAT 07/06/2024 2:46 PM ESCALATOR INSTALLER VITAMIN B12 BRENDA 07/06/2024 2:46 PM ESCALATOR INSTALLER FOLATE BRENDA 07/06/2024 2:46 PM ESCALATOR INSTALLER IRON + TRANSFERRIN PANEL STAT 07/06/2024 2:46 PM ESCALATOR INSTALLER FERRITIN BRENDA 07/06/2024 2:46 PM ESCALATOR INSTALLER RETIC COUNT STAT 07/06/2024 2:46 PM ESCALATOR INSTALLER BILIRUBIN TOTAL+DIRECT BLOOD PANEL STAT 07/06/2024 2:46 PM ESCALATOR INSTALLER LDH BLOOD STAT 07/06/2024 2:46 PM ESCALATOR INSTALLER CBC W AUTO DIFFERENTIAL STAT 07/06/2024 11:50 AM ESCALATOR INSTALLER GLUCOSE - POINT OF CARE Routine 07/06/2024 11:25 AM ESCALATOR INSTALLER GLUCOSE - POINT OF CARE Routine 07/06/2024 7:59 AM ESCALATOR INSTALLER PHOSPHORUS BLOOD Routine 07/06/2024 4:32 AM ESCALATOR INSTALLER MAGNESIUM BLOOD Routine 07/06/2024 4:32 AM ESCALATOR INSTALLER CBC W/O DIFFERENTIAL AM Draw 07/06/2024 4:32 AM ESCALATOR INSTALLER COMPREHENSIVE METABOLIC PANEL AM Draw 07/06/2024 4:32 AM ESCALATOR INSTALLER Idiopathic acute pancreatitis, unspecified complication status GLUCOSE - POINT OF CARE Routine 07/05/2024 4:34 PM ESCALATOR INSTALLER C-PEPTIDE Routine 07/05/2024 1:52 PM ESCALATOR INSTALLER LIPASE BLOOD Routine 07/05/2024 1:52 PM ESCALATOR INSTALLER HEMOGLOBIN A1C Routine 07/05/2024 1:52 PM ESCALATOR INSTALLER GLUCOSE - POINT OF CARE Routine 07/05/2024 12:15 PM ESCALATOR INSTALLER GLUCOSE - POINT OF CARE Routine 07/05/2024 10:55 AM ESCALATOR INSTALLER XR CHEST 1VW PORTABLE Routine 07/05/2024 9:52 AM ESCALATOR INSTALLER Idiopathic acute pancreatitis, unspecified complication status PT EVAL AND TREAT Routine 07/05/2024 8:4 9 AM ESCALATOR INSTALLER EKG 12-LEAD Routine 07/05/2024 8:40 AM ESCALATOR INSTALLER Idiopathic acute pancreatitis, unspecified complication status GLUCOSE - POINT OF CARE Routine 07/05/2024 8:02 AM ESCALATOR INSTALLER COMPREHENSIVE METABOLIC PANEL AM Draw 07/05/2024 1:55 AM ESCALATOR INSTALLER Idiopathic acute pancreatitis, unspecified complication status COMPREHENSIVE METABOLIC PANEL AM Draw 07/04/2024 2:45 AM ESCALATOR INSTALLER Idiopathic acute pancreatitis, unspecified complication status CBC W/O DIFFERENTIAL AM Draw 07/03/2024 1:12 AM ESCALATOR INSTALLER PHOSPHORUS BLOOD Routine 07/03/2024 1:1 2 AM ESCALATOR INSTALLER MAGNESIUM BLOOD Routine 07/03/2024 1:12 AM ESCALATOR INSTALLER COMPREHENSIVE METABOLIC PANEL AM Draw 07/03/2024 1:12 AM ESCALATOR INSTALLER Idiopathic acute pancreatitis, unspecified complication status XR ABDOMEN KUB PORTABLE STAT 07/02/2024 8:41 AM ESCALATOR INSTALLER Ileus CBC W/O DIFFERENTIAL AM Draw 07/02/2024 1:13 AM ESCALATOR INSTALLER Ileus MAGNESIUM BLOOD Routine 07/02/2024 1:13 AM ESCALATOR INSTALLER Ileus COMPREHENSIVE METABOLIC PANEL AM Draw 07/02/2024 1:13 AM ESCALATOR INSTALLER Idiopathic acute pancreatitis, unspecified complication status XR ABDOMEN KUB PORTABLE STAT 07/01/2024 1:12 PM ESCALATOR INSTALLER Ileus HEPATIC FUNCTION PANEL Routine 07/01/2024 4:22 AM ESCALATOR INSTALLER Idiopathic acute pancreatitis, unspecified complication status PHOSPHORUS BLOOD Routine 07/01/2024 4:22 AM ESCALATOR INSTALLER Idiopathic acute pancreatitis, unspecified complication status MAGNESIUM BLOOD Routine 07/01/2024 4:22 AM ESCALATOR INSTALLER Idiopathic acute pancreatitis, unspecified complication status CBC W/O DIFFERENTIAL Routine 07/01/2024 4:22 AM ESCALATOR INSTALLER Idiopathic acute pancreatitis, unspecified complication status BASIC METABOLIC PANEL (CALCIUM TOTAL) Routine 07/01/2024 4:22 AM ESCALATOR INSTALLER Idiopathic acute pancreatitis, unspecified complication status EKG 12-LEAD Routine 07/01/2024 3:16 AM ESCALATOR INSTALLER Idiopathic acute pancreatitis, unspecified complication status EKG 12-LEAD Routine 07/01/2024 3:14 AM ESCALATOR INSTALLER Idiopathic acute pancreatitis, unspecified complication status EKG 12-LEAD Routine 07/01/2024 3:02 AM ESCALATOR INSTALLER Idiopathic acute pancreatitis, unspecified complication status CT ABDOMEN PELVIS W CONTRAST STAT 06/30/2024 5:02 PM ESCALATOR INSTALLER Abdominal pain, unspecified abdominal location TROPONIN-I HIGH SENSITIVE REFLEX 1HOUR Timed 06/30/2024 3:57 PM ESCALATOR INSTALLER URINE DRUG SCREEN IMMUNOASSAY STAT 06/30/2024 2:52 PM ESCALATOR INSTALLER URINALYSIS REFLEX TO MICROSCOPIC NO CULTURE STAT 06/30/2024 2:52 PM ESCALATOR INSTALLER ALCOHOL ETHYL BLOOD STAT 06/30/2024 2 :48 PM ESCALATOR INSTALLER B-TYPE NATRIURETIC PEPTIDE STAT 06/30/2024 2:48 PM ESCALATOR INSTALLER TROPONIN-I HIGH SENSITIVE BASELINE + 1HR STAT 06/30/2024 2:48 PM ESCALATOR INSTALLER PT-INR SLH STAT 06/30/2024 2:48 PM ESCALATOR INSTALLER MAGNESIUM BLOOD STAT 06/30/2024 2:48 PM ESCALATOR INSTALLER LIPASE BLOOD STAT 06/30/2024 2:48 PM ESCALATOR INSTALLER LACTIC ACID BLOOD REFLEX TO REPEAT STAT 06/30/2024 2:48 PM ESCALATOR INSTALLER COMPREHENSIVE METABOLIC PANEL STAT 06/30/2024 2:48 PM ESCALATOR INSTALLER CBC W AUTO DIFFERENTIAL STAT 06/30/2024 2:48 PM ESCALATOR INSTALLER EKG 12-LEAD STAT 06/30/2024 2:33 PM ESCALATOR INSTALLER Chest pain, unspecified type XR CHEST 1VW PORTABLE STAT 06/30/2024 2:21 PM ESCALATOR INSTALLER Chest pain, unspecified type HIV-1 HIV-2 ANTIBODY + HIV P24 AG PANEL Routine 02/03/2024 8:26 PM CDT from Last 3 Months or Most Recently Relevant to Health Maintenance Results * PREPARE (CROSSMATCH) RBC UNIT(S), 1 Units (07/10/2024 1:17 AM ESCALATOR INSTALLER) Only the most recent of2 resultswithin the time period is included. Pathologist [facility] Unit Description N/A [facility] Blood Bank BLOOD SPECIMEN / Unknown 07/06/2024 2:55 PM ESCALATOR INSTALLER Christiano Graham MD LAB - BLOOD BANK ORDERA BLES Final Result [facility] [address] [place] [address], [facility] [phone] * (ABNORMAL) GLUCOSE - POINT OF CARE (07/09/2024 11:52 AM ESCALATOR INSTALLER) Only the most recent of16 resultswithin the time period is included. Pathologist [facility] Glucose WB/POC 203(H) 70 - 99 mg/dL 07/09/2024 12:00 PM ESCALATOR INSTALLER [facility] Specimen Type Cap Fingerstick 2024 12:00 PM ESCALATOR INSTALLER [facility] Blood BLOOD SPECIMEN / Unknown 07/09/2024 11:52 AM ESCALATOR INSTALLER 07/09/2024 12:00 PM ESCALATOR INSTALLER us Piotr Christine MD LAB - POINT OF CARE ORDERAB LES Final Result Performing Organization Address City/[facility]/ZIP Co de Phone Number [facility] [address] [place] [address], [place] [phone] * (ABNORMAL) HEMOGLOBIN (07/09/2024 6:01 AM ESCALATOR INSTALLER) Only the most recent of11 resultswithin the time period is included. Hemoglobin 7.7(L) 13.3 - 17.5 g/dL 07/09/2024 6:14 AM [facility] Blood BLOOD SPECIMEN / Unknown Venipuncture / Unknown 07/09/2024 6:01 AM ESCALATOR INSTALLER 07/09/2024 6:05 AM ESCALATOR INSTALLER us Christiano Graham MD LAB - HEMATOLOGY ORDERA BLES Final Result Performing Organization Address City/[facility]/ZIP Co de Phone Number [facility] [address] [place] [address], [place] [phone] * (ABNORMAL) COMPREHENSIVE METABOLIC PANEL (07/09/2024 12:13 AM ESCALATOR INSTALLER) Only the most recent of9 resultswithin the time period is included. BUN 18 7 - 26 mg/dL 07/09/2024 12:40 AM [facility] Creatinine 0.90 0.71 - 1.16 mg/dL 07/09/2024 12:40 AM [facility] Sodium 137 136 - 145 mmol/L 07/09/2024 12:40 AM [facility] Potassium 4.5 3.5 - 4.5 mmol/L 07/09/2024 12:40 AM [facility] Chloride 101 98 - 107 mmol/L 07/09/2024 12:40 AM [facility] CO2 29 22 - 29 mmol/L 07/09/2024 12:40 AM [facility] Glucose 241(H) 70 - 99 mg/dL 07/09/2024 12:40 AM [facility] Calcium 9.0 8.4 - 10.2 mg/dL 07/09/2024 12:40 AM [facility] Protein Total 5.6(L) 6.0 - 8.3 g/dL 07/09/2024 12:40 AM [facility] Albumin 3.7 3.4 - 5.0 g/dL 07/09/2024 12:40 AM [facility] Bilirubin Total 0.2 0.2 - 1.2 mg/dL 07/09/2024 12:40 AM [facility] Alkaline Phosphatase 47 40 - 150 U/L 07/09/2024 12:40 AM [facility] ALT 33 5 - 55 U/L 07/09/2024 12:40 AM [facility] AST 25 5 - 34 U/L 07/09/2024 12:40 AM [facility] Anion Gap 7 6 - 16 07/09/2024 12:40 AM [facility] BUN/Creatinine Ratio 20 7 - 23 07/09/2024 12:40 AM [facility] Osmolality Calculated 294 275 - 295 mOsm/kg 07/09/2024 12:40 AM [facility] Albumin/Globulin Ratio 1.9 1.1 - 2.3 07/09/2024 12:40 AM [facility] eGFR by CKD-EPI >90 >=90 mL/min/1.7 3 m2 07/09/2024 12:40 AM [facility] Blood BLOOD SPECIMEN / Unknown Venipuncture / Unknown 07/09/2024 12:13 AM ESCALATOR INSTALLER 07/09/2024 12:16 AM ESCALATOR INSTALLER us Jamel Cavazos MD LAB - CHEMISTRY ORDERABLES Fin al Result [facility] [address] [place] [address], [facility] [phone] * PATHOLOGY TISSUE (07/07/2024 4:39 PM ESCALATOR INSTALLER) Case Report Surgical Pathology Report Case: [id number] Authorizing Provider: Moy Zarco MD Collected: 07/07/2024 04:39 PM Ordering Location: [facility] Received: 07/08/2024 07:20 AM Pathologist: Yaquelin Shook MD Specimen: Gastric, Biopsy - R/O H pylori 07/09/2024 3:19 PM [facility] Final Diagnosis Stomach, biopsy (A): - Reactive gastropathy and ulcer debris - Negative for H. pylori 07/09/2024 3:19 PM [facility] Microscopic Description and Comment [...] controls), which is negative. 07/09/2024 3:19 PM [facility] Clinical History The patient is a 34-year-old man with melena. Operative procedure/findings: EGD - nonbleeding gastric ulcer at the pylorus with pigmented material and mild erosive gastritis, biopsied to rule out H. pylori 07/09/2024 3:19 PM [facility] Gross Description The requisition and specimen(s) are identified with the patient's name Douglas Wright . Received in formalin, specimen A, consists of multiple guy-pink irregular tissue fragments averaging 0.2 cm in greatest dimension and aggregating to 0.5 x 0.4 x 0.1 cm which are submitted in toto in a single cassette labeled A1. RB 07/09/2024 3:19 PM [facility] Pathologist Location at [facility] 07/09/2024 3:19 PM [facility] Disclaimer The performance characteristics of all immunohistochemical and indirect immunofluorescence stains (if any) cited in this report were determined by the Histopathology Laboratory of [facility]. Some of these tests were developed by [...] the attending (teaching) pathologist. 07/09/2024 3:19 PM ESCALATOR INSTALLER [facility] Embedded Images 07/09/2024 3:19 PM ESCALATOR INSTALLER [facility] Biopsy, NOS GASTRIC CONTENTS SPECIMEN / Unknown 07/07/2024 4:39 PM ESCALATOR INSTALLER 07/08/2024 7:20 AM ESCALATOR INSTALLER Comment:Pre-op diagnosis: Gastrointestinal hemorrhage, unspecified gastrointestinal hemorrhage type [K92.2] us Moy Zarco MD LAB - PATHOLOGY/CYTOLOGY SHREYA BOJORQUEZ Final Result Performing Organization Address City/State/[facility] Co de Phone Number [facility] [address] [phone] * EGD (07/07/2024 4:14 PM ESCALATOR INSTALLER) Report Endoscopy POC Endoscopy Department Report __ [...] non-montero portions. 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 All rights reserved. The codes documented in this report are preliminary and upon manager surgery review may be revised to meet current compliance requirements. Moy Zarco MD 07/07/2024 5:01:11 PM Note Initiated On: 07/07/2024 4:14 PM Number of Addenda: 0 [facility] [address] [place] [id number] [facility] 07/07/2024 4:14 PM ESCALATOR INSTALLER us Clayton Chowdary MD GI PROCEDURE ORDERABLES Edited R esult - Final [facility] * TRANSFUSE RED BLOOD CELL LEUKOREDUCED UNIT(S) (07/06/2024 7:32 PM ESCALATOR INSTALLER) us Christiano Graham MD NURSING - BLOOD PROD TR ANSFUSION Final Result * CT Angio Abdomen Pelvis (07/06/2024 4:53 PM ESCALATOR INSTALLER) Anatomical Region Laterality Modality Abdomen, Pelvis Computed Tomogra phy 07/06/2024 5:20 PM ESCALATOR INSTALLER Impressions 07/06/2024 5:51 PM ESCALATOR INSTALLER Impression: 1.Redemonstration of pancreatic atrophic appearance with [...] 07/06/2024 5:51 PM Narrative 07/06/2024 5:51 PM ESCALATOR INSTALLER PROCEDURE: CT ANGIO ABDOMEN PELVIS, DATE/TIME OF EXAM: 07/06/2024 4:54 PM, LOCATION [facility] INDICATION: K85.00: Idiopathic acute pancreatitis, [...] PELVIS, DATE/TIME OF EXAM: 07/06/2024 4:54PM, LOCATION [facility] INDICATION: K85.00: Idiopathic acute pancreatitis, [...] 5:51 PM Christiano Graham MD CT ORDERABLES Final R esult * TYPE + SCREEN PANEL (07/06/2024 2:46 PM ESCALATOR INSTALLER) Pathologist [facility] Antibody Screen NEG 4:07 PM ESCALATOR INSTALLER [facility] ABO Rh A POS 07/06/2024 4:07 PM ESCALATOR INSTALLER [facility] Blood Bank BLOOD SPECIMEN / Unknown Venipuncture / Unknown 07/06/2024 2:46 PM ESCALATOR INSTALLER 07/06/2024 3:58 PM ESCALATOR INSTALLER Christiano Graham MD LAB - BLOOD BANK ORDERA BLES Final Result [facility] [address] [place] [address], [place] [phone] * DIRECT JOHN (07/06/2024 2:46 PM ESCALATOR INSTALLER) Pathologist [facility] Direct John (BRYAN) NEG 07/06/2024 3:54 PM ESCALATOR INSTALLER [facility] Blood BLOOD SPECIMEN / Unknown Venipuncture / Unknown 07/06/2024 2:46 PM ESCALATOR INSTALLER 07/06/2024 2:55 PM ESCALATOR INSTALLER Result [facility] Christiano Graham MD LAB - BLOOD BANK ORDERA BLES Final Result Performing Organization Address [facility]/ZIP Co de Phone Number [facility] BLOOD BANK LAB [address] [place] [phone], [facility] [phone] * (ABNORMAL) RETIC COUNT (07/06/2024 2:46 PM ESCALATOR INSTALLER) Reticulocyte Percent 4.48(H) 0.50 - 2.40 % 07/06/2024 3:05 PM [facility] Reticulocyte Absolute 0.0869 0.0200 - 0.1100 x10E6/uL 07/06/2024 3:05 PM [facility] Ret-HE 36.6 29.0 - 37.9 pg 07/06/2024 3:05 PM [facility] Immature Reticulocyte Fraction 18.2(H) 1.8 - 15.2 % 07/06/2024 3:05 PM [facility] Blood BLOOD SPECIMEN / Unknown Venipuncture / Unknown 07/06/2024 2:46 PM ESCALATOR INSTALLER 07/06/2024 2:52 PM ESCALATOR INSTALLER Result [facility] Christiano Graham MD LAB - HEMATOLOGY ORDERA BLES Final Result Performing Organization Address City/[facility]/ZIP Co de Phone Number [address] [address], [place] [phone] * LDH BLOOD (07/06/2024 2:46 PM ESCALATOR INSTALLER) Pathologist [facility] LDH Total 227 125 - 243 Units/L 07/06/2024 3:22 PM [facility] Blood BLOOD SPECIMEN / Unknown Venipuncture / Unknown 07/06/2024 2:46 PM ESCALATOR INSTALLER 07/06/2024 2:52 PM ESCALATOR INSTALLER Result [facility] Christiano Graham MD LAB - CHEMISTRY ORDERAB LES Final Result [address] [address], [place] [phone] * FOLATE (07/06/2024 2:46 PM ESCALATOR INSTALLER) [facility] Folate 17.8 7.0 - 31.4 ng/mL 07/06/2024 3:54 PM ESCALATOR INSTALLER [facility] Blood BLOOD SPECIMEN / Unknown Venipuncture / Unknown 07/06/2024 2:46 PM ESCALATOR INSTALLER 07/06/2024 2:52 PM ESCALATOR INSTALLER Christiano Graham MD LAB - CHEMISTRY ORDERAB LES Final Result Performing Organization Address [facility]/ZIP Co de Phone Number [address] [address], [place] [phone] * BILIRUBIN TOTAL+DIRECT BLOOD PANEL (07/06/2024 2:46 PM ESCALATOR INSTALLER) [facility] Bilirubin Total 0.2 0.2 - 1.2 mg/dL 08/2024 3:22 PM ESCALATOR INSTALLER [facility] Bilirubin Conjugated 0.1 0.1 - 0.5 mg/dL 07/06/2024 3:22 PM [facility] Bilirubin Unconjugated 0.1 Unconjugated Bilirubin is a calculated value: Reference ranges have not been established. mg/dL 07/06/2024 3:22 PM ESCALATOR INSTALLER [facility] Blood BLOOD SPECIMEN / Unknown Venipuncture / Unknown 07/06/2024 2:46 PM ESCALATOR INSTALLER 07/06/2024 2:52 PM ESCALATOR INSTALLER us Christiano Graham MD LAB - CHEMISTRY ORDERAB LES Final Result Performing Organization Address City/[facility]/ZIP Co de Phone Number [address] [address], [place] [phone] * (ABNORMAL) VITAMIN B12 (07/06/2024 2:46 PM ESCALATOR INSTALLER) [facility] Vitamin B12 1,641(H) 213 - 816 pg/mL 07/06/2024 3:54 PM ESCALATOR INSTALLER [facility] Blood BLOOD SPECIMEN / Unknown Venipuncture / Unknown 07/06/2024 2:46 PM ESCALATOR INSTALLER 07/06/2024 2:52 PM ESCALATOR INSTALLER us Christiano Garham MD LAB - CHEMISTRY ORDERAB LES Final Result Performing Organization Address [facility]/ZIP Co de Phone Number [address] [address], [place] [phone] * (ABNORMAL) IRON + TRANSFERRIN PANEL (07/06/2024 2:46 PM ESCALATOR INSTALLER) Iron 47(L) 50 - 175 ug/dL 07/06/2024 3:51 PM [facility] Transferrin 210 174 - 382 mg/dL 07/06/2024 3:51 PM [facility] Transferrin Saturation % 18 16 - 50 % 07/06/2024 3:51 PM [facility] TIBC Calculated 263 240 - 450 ug/dL 07/06/2024 3:51 PM ESCALATOR INSTALLER [facility] Blood BLOOD SPECIMEN / Unknown Venipuncture / Unknown 07/06/2024 2:46 PM ESCALATOR INSTALLER 07/06/2024 2:49 PM ESCALATOR INSTALLER us Christiano Graham MD LAB - CHEMISTRY ORDERAB LES Final Result Performing Organization Address City/[facility]/ZIP Co de Phone Number [address] [address], [place] [phone] * HAPTOGLOBIN (07/06/2024 2:46 PM ESCALATOR INSTALLER) Haptoglobin 54 14 - 258 mg/dL 07/06/2024 3:51 PM [facility] Blood BLOOD SPECIMEN / Unknown Venipuncture / Unknown 07/06/2024 2:46 PM ESCALATOR INSTALLER 07/06/2024 2:49 PM ESCALATOR INSTALLER us Christiano Graham MD LAB - CHEMISTRY ORDERAB LES Final Result [facility] [address] [place] [address], [facility] [phone] * FERRITIN (07/06/2024 2:46 PM ESCALATOR INSTALLER) [facility] Ferritin 146 22 - 275 ng/mL 07/06/2024 4:06 PM [facility] Blood BLOOD SPECIMEN / Unknown Venipuncture / Unknown 07/06/2024 2:46 PM ESCALATOR INSTALLER 07/06/2024 2:49 PM ESCALATOR INSTALLER us Christiano Graham MD LAB - CHEMISTRY ORDERAB LES Final Result Performing Organization Address [facility]/ZIP Co de Phone Number [facility] [address] [place] [address], [facility] [phone] * (ABNORMAL) CBC W AUTO DIFFERENTIAL (07/06/2024 11:50 AM ESCALATOR INSTALLER) Only the most recent of2 resultswithin the time period is included. [facility] WBC 4.5 4.0 - 10.7 x10E9/L 07/06/2024 12:11 PM [facility] RBC Count 1.90(L) 4.30 - 5.80 x10E12/L 07/06/2024 12:11 PM [facility] Hemoglobin 6.2(L) 13.3 - 17.5 g/dL 07/06/2024 12:11 PM [facility] Hematocrit 17.4(L) 38.7 - 51.1 % 07/06/2024 12:11 PM [facility] MCV 91.6 80.0 - 98.0 fL 07/06/2024 12:11 PM [facility] MCH 32.6 26.7 - 33.6 pg 07/06/2024 12:11 PM [facility] MCHC 35.6 31.7 - 36.3 g/dL 07/06/2024 12:11 PM [facility] RDW-CV 15.9(H) 11.3 - 14.8 % 07/06/2024 12:11 PM [facility] Platelet Count 141(L) 150 - 420 x10E9/L 07/06/2024 12:11 PM [facility] MPV 9.8 7.8 - 11.4 fL 07/06/2024 12:11 PM [facility] Neutrophil % 59.8 41.0 - 74.0 % 07/06/2024 12:11 PM [facility] Lymphocyte % 26.0 17.0 - 47.0 % 07/06/2024 12:11 PM [facility] Monocyte % 11.6(H) 3.0 - 11.0 % 07/06/2024 12:11 PM [facility] Eosinophil % 1.8 0.0 - 7.0 % 07/06/2024 12:11 PM [facility] Basophil % 0.4 0.0 - 1.6 % 07/06/2024 12:11 PM [facility] Immature Granulocytes % 0.4 0.0 - 1.0 % 07/06/2024 12:11 PM [facility] Neutrophil Absolute 2.67 1.60 - 7.50 x10E9/L 07/06/2024 12:11 PM [facility] Lymphocyte Absolute 1.16 1.00 - 4.40 x10E9/L 07/06/2024 12:11 PM [facility] Monocyte Absolute 0.52 0.15 - 1.00 x10E9/L 07/06/2024 12:11 PM [facility] Eosinophil Absolute 0.08 0.00 - 0.60 x10E9/L 07/06/2024 12:11 PM [facility] Basophil Absolute 0.02 0.00 - 0.13 x10E9/L 07/06/2024 12:11 PM [facility] Blood BLOOD SPECIMEN / Unknown Venipuncture / Unknown 07/06/2024 11:50 AM [facility] 07/06/2024 12:02 PM [facility] us Christiano Graham MD LAB - HEMATOLOGY ORDERA BLES Final Result [facility] [address] [place] [address], [facility] [phone] * (ABNORMAL) CBC W/O DIFFERENTIAL (07/06/2024 4:32 AM ESCALATOR INSTALLER) Only the most recent of4 resultswithin the time period is included. [facility] WBC 3.4(L) 4.0 - 10.7 x10E9/L 07/06/2024 5:29 AM [facility] RBC Count 1.97(L) 4.30 - 5.80 x10E12/L 07/06/2024 5:29 AM [facility] Hemoglobin 6.3(L) 13.3 - 17.5 g/dL 07/06/2024 5:29 AM [facility] Hematocrit 18.0(L) 38.7 - 51.1 % 07/06/2024 5:29 AM [facility] MCV 91.4 80.0 - 98.0 fL 07/06/2024 5:29 AM [facility] MCH 32.0 26.7 - 33.6 pg 07/06/2024 5:29 AM [facility] MCHC 35.0 31.7 - 36.3 g/dL 07/06/2024 5:29 AM [facility] RDW-CV 15.6(H) 11.3 - 14.8 % 07/06/2024 5:29 AM [facility] Platelet Count 138(L) 150 - 420 x10E9/L 07/06/2024 5:29 AM [facility] MPV 9.6 7.8 - 11.4 fL 07/06/2024 5:29 AM [facility] Blood BLOOD SPECIMEN / Unknown Venipuncture / Unknown 07/06/2024 4:32 AM ESCALATOR INSTALLER 07/06/2024 5:23 AM [facility] us Jamel Cavazos MD LAB - HEMATOLOGY ORDERABLES Fi nal Result [address] [address], [facility] [phone] * (ABNORMAL) PHOSPHORUS BLOOD (07/06/2024 4:32 AM ESCALATOR INSTALLER) Only the most recent of3 resultswithin the time period is included. [facility] Phosphorus 6.1(H) 2.8 - 5.1 mg/dL 07/06/2024 5:50 AM ESCALATOR INSTALLER [facility] Blood BLOOD SPECIMEN / Unknown Venipuncture / Unknown 07/06/2024 4:32 AM ESCALATOR INSTALLER 07/06/2024 5:23 AM ESCALATOR INSTALLER Jamel Cavazos MD LAB - CHEMISTRY ORDERABLES Fin al Result Performing Organization Address City/[facility]/ZIP Co de Phone Number [address] [address], [place] [phone] * MAGNESIUM BLOOD (07/06/2024 4:32 AM ESCALATOR INSTALLER) Only the most recent of5 resultswithin the time period is included. [facility] Magnesium 2.1 1.6 - 2.6 mg/dL 07/06/2024 5:50 AM ESCALATOR INSTALLER [facility] Blood BLOOD SPECIMEN / Unknown Venipuncture / Unknown 07/06/2024 4:32 AM ESCALATOR INSTALLER 07/06/2024 5:23 AM ESCALATOR INSTALLER Jamel Cavazos MD LAB - CHEMISTRY ORDERABLES Fin al Result Performing Organization Address [facility] Co de Phone Number [address] [address], [place] [phone] * C-PEPTIDE (07/05/2024 1:52 PM ESCALATOR INSTALLER) [facility] C-Peptide 1.8 0.5 - 3.3 ng/mL 07/07/2024 1:34 AM ESCALATOR INSTALLER [employer] ([facility]) Comment: INTERPRETIVE INFORMATION: Serum, C-Peptide Reference Interval applies to fasting specimens. To convert to nmol/L, multiply by 0.33 Performed By: [employer] [address] [place] [id number] Economic Historian: Hamilton Martinez MD, PhD CLIA Number: [id number] Blood BLOOD SPECIMEN / Unknown Venipuncture / Unknown 07/05/2024 1:52 PM ESCALATOR INSTALLER 07/05/2024 1:57 PM ESCALATOR INSTALLER Jamel Cavazos MD LAB - CHEMISTRY ORDERABLES Fin al Result [facility] ([facility]) [address] [place] [address] * (ABNORMAL) HEMOGLOBIN A1C (07/05/2024 1:52 PM ESCALATOR INSTALLER) Hemoglobin A1c 6.0(H) <=5.6 % 07/05/2024 4:19 PM ESCALATOR INSTALLER [facility] Estimated Average Glucose 126 mg/dL 07/05/2024 4:19 PM ESCALATOR INSTALLER [facility] Comment: HbA1c Interpretation: Normal : < 5.7% Pre-diabetes: 5.7-6.4% Diabetes: Equal to or greater than 6.5% Test results diagnostic of diabetes should be repeated for confirmation. Treatment target values recommended by ADA and other clinical organizations should be used to evaluate metabolic control in patients. Reference: [place] [employer], Standards of Care in Diabetes -2020 In patients 70 years and older consider HbA1c target range of 7.0-7.5% (Reference: Ruddy Koenig et al. JAMDA. 2012) The Sebia assay for the measurement of HbA1c is a National Glycohemoglobin Standardization Program (NGSP) certified method. Blood BLOOD SPECIMEN / Unknown Venipuncture / Unknown 07/05/2024 1:52 PM ESCALATOR INSTALLER 07/05/2024 1:59 PM ESCALATOR INSTALLER Jamel Cavazos MD LAB - CHEMISTRY ORDERABLES Fin al Result Performing Organization Address City/[facility]/ZIP Co de Phone Number [facility] [address] [place] [address], [facility] [phone] * LIPASE BLOOD (07/05/2024 1:52 PM ESCALATOR INSTALLER) Only the most recent of2 resultswithin the time period is included. Lipase 9 8 - 78 U/L 07/05/2024 2:26 PM ESCALATOR INSTALLER [facility] Blood BLOOD SPECIMEN / Unknown Venipuncture / Unknown 07/05/2024 1:52 PM ESCALATOR INSTALLER 07/05/2024 1:59 PM ESCALATOR INSTALLER Narrative [facility] - 07/05/2024 2:26 PM ESCALATOR INSTALLER Lipase results from the [employer] Al[employer] analyzer may not be comparable with other methodologies. us Jamel Cavazos MD LAB - CHEMISTRY ORDERABLES [facility] al Result [facility] [address] [place] [address], [facility] [phone] * XR Chest 1Vw Portable (07/05/2024 9:52 AM ESCALATOR INSTALLER) Only the most recent of2 resultswithin the time period is included. Anatomical Region Laterality Modality Chest Digital Radiogra phy 07/05/2024 3:07 PM ESCALATOR INSTALLER Narrative 07/05/2024 9:03 PM ESCALATOR INSTALLER PROCEDURE: XR CHEST 1VW PORTABLE, DATE/TIME OF EXAM: 07/05/2024 10:05 AM, LOCATION [facility] INDICATION: K85.00: Idiopathic acute pancreatitis, unspecified complication status (HCC) ADDITIONAL CLINICAL INFORMATION: Ordering Provider Reason For Exam: pleural fluid? pna? pericardial effusion? COMPARISON: Chest radiograph 06/30/2024 FINDINGS/IMPRESSION: Lines, tubes, hardware: *A right upper extremity PICC line is redemonstrated with the tip superimposing right atrium. There is no focal consolidation, pleural effusion, or pneumothorax. The cardiomediastinal silhouette is normal. > Dictated by Yue FAGAN, [facility] (psychiatry resident). I, Ronal Spencer MD have personally reviewed and interpreted this examination/study. > Interpreting Provider: Ronal Spencer MD on 07/05/2024 9:03 PM Procedure Note Ronal Spencer MD - 07/05/2024 PROCEDURE: XR CHEST 1VW PORTABLE, DATE/TIME OF EXAM: 07/05/2024 10:05AM, LOCATION [facility] INDICATION: K85.00: Idiopathic acute pancreatitis, unspecified complication status (HCC) ADDITIONAL CLINICAL INFORMATION: Ordering Provider Reason For Exam: pleural fluid? pna? pericardial effusion? COMPARISON: Chest radiograph 06/30/2024 FINDINGS/IMPRESSION: Lines, tubes, hardware: *A right upper extremity PICC line is redemonstrated with the tip superimposing right atrium. There is no focal consolidation, pleural effusion, or pneumothorax. The cardiomediastinal silhouette is normal. > Dictated by Yue FAGAN, [facility] (psychiatry resident). I, Ronal Spencer MD have personally reviewed and interpreted this examination/study. > Interpreting Provider: Ronal Spencer MD on 07/05/2024 9:03 PM Jamel Cavazos MD DIAGNOSTIC IMAGING ORDERABLES Final Result * EKG 12-LEAD (07/05/2024 8:40 AM ESCALATOR INSTALLER) Only the most recent of5 resultswithin the time period is included. Ventricular Rate 101 BPM [facility] Atrial Rate 101 BPM [facility] P-R Interval 146 ms [facility] QRS Duration ms 88 ms [facility] Q-T Interval ms 326 ms [facility] MUSE QTC Calculation (Bezet) 422 ms [facility] MUSE Calculated P [employer] 32 degrees [facility] MUSE Calculated R [employer] 83 degrees [facility] MUSE Calculated T [employer] 32 degrees [facility] MUSE Interpretation EKG SINUS TACHYCARDIA LOW VOLTAGE QRS SEPTAL INFARCT , AGE UNDETERMINED T WAVE ABNORMALITY, CONSIDER ANTEROLATERAL ISCHEMIA ABNORMAL ECG WHEN COMPARED WITH ECG OF 01-JUL-2024 03:16, NO SIGNIFICANT CHANGE WAS FOUND Confirmed by MD STEFF, GLORIA ([id number]) on 07/05/2024 12:50:27 PM [facility] MUSE 07/05/2024 8:40 AM ESCALATOR INSTALLER 07/05/2024 12:50 PM ESCALATOR INSTALLER Jamel Cavazos MD ECG ORDERABLES Edited Result - Final [facility] MUSE * XR Abdomen Kub Portable (07/02/2024 8:41 AM ESCALATOR INSTALLER) Only the most recent of2 resultswithin the time period is included. Anatomical Region Laterality Modality Abdomen Digital Radiogra phy 07/02/2024 2:55 PM ESCALATOR INSTALLER Narrative 07/03/2024 12:53 AM ESCALATOR INSTALLER PROCEDURE: XR ABDOMEN KUB PORTABLE, DATE/TIME OF EXAM: 07/02/2024 8:41 AM, LOCATION [facility] INDICATION: K56.7: Ileus (HCC) ADDITIONAL CLINICAL INFORMATION: Ordering Provider Reason For Exam: ileus Technologist Note: Additional: COMPARISON: Abdomen x-ray 07/01/2024. TECHNIQUE: Supine frontal radiograph of the abdomen. FINDINGS/ IMPRESSION: Multiple mildly dilated loops of small and large bowel located centrally may represent ileus. No evidence of free air on this supine exam. > Dictated by Juana Esquivel MD, (psychiatry resident). Ronal Albright MD have personally reviewed and interpreted this examination/study. > Interpreting Provider: Ronal Spencer MD on 07/03/2024 12:53 AM Procedure Note Ronal Spencer MD - 07/03/2024 PROCEDURE: XR ABDOMEN KUB PORTABLE, DATE/TIME OF EXAM: 07/02/2024 8:41AM, LOCATION [facility] INDICATION: K56.7: Ileus (HCC) ADDITIONAL CLINICAL INFORMATION: Ordering Provider Reason For Exam: ileus Technologist Note: Additional: COMPARISON: Abdomen x-ray 07/01/2024. TECHNIQUE: Supine frontal radiograph of the abdomen. FINDINGS/ IMPRESSION: Multiple mildly dilated loops of small and large bowel located centrally may represent ileus. No evidence of free air on this supine exam. > Dictated by Juana Esquivel MD, (psychiatry resident). Ronal Albright MD have personally reviewed and interpreted this examination/study. > Interpreting Provider: Ronal Spencer MD on 07/03/2024 12:53 AM Jamel Cavazos MD DIAGNOSTIC IMAGING ORDERABLES Final Result * (ABNORMAL) BASIC METABOLIC PANEL (CALCIUM TOTAL) (07/01/2024 4:22 AM ESCALATOR INSTALLER) BUN 31(H) 7 - 26 mg/dL 07/01/2024 5:19 AM [facility] Creatinine 0.75 0.71 - 1.16 mg/dL 07/01/2024 5:19 AM [facility] Sodium 128(L) 136 - 145 mmol/L 07/01/2024 5:19 AM [facility] Potassium 3.9 3.5 - 4.5 mmol/L 07/01/2024 5:19 AM [facility] Chloride 88(L) 98 - 107 mmol/L 07/01/2024 5:19 AM [facility] CO2 24 22 - 29 mmol/L 07/01/2024 5:19 AM [facility] Glucose 136(H) 70 - 99 mg/dL 07/01/2024 5:19 AM [facility] Calcium 10.0 8.4 - 10.2 mg/dL 07/01/2024 5:19 AM [facility] Anion Gap 16 6 - 16 07/01/2024 5:19 AM [facility] BUN/Creatinine Ratio 41(H) 7 - 23 07/01/2024 5:19 AM [facility] Osmolality Calculated 275 275 - 295 mOsm/kg 07/01/2024 5:19 AM [facility] eGFR by CKD-EPI >90 >=90 mL/min/1.7 3 m2 07/01/2024 5:19 AM [facility] Blood BLOOD SPECIMEN / Unknown Lab Venipuncture / Unknown 07/01/2024 4:22 AM [facility] 07/01/2024 4:46 AM [facility] us Que Chow MD LAB - CHEMISTRY ORDERABLES F inal Result [address] [address], [facility] [phone] * (ABNORMAL) HEPATIC FUNCTION PANEL (07/01/2024 4:22 AM [facility]) Protein Total 7.7 6.0 - 8.3 g/dL 025 9:46 AM [facility] Albumin 4.9 3.4 - 5.0 g/dL 07/01/2024 9:46 AM [facility] Bilirubin Total 1.0 0.2 - 1.2 mg/dL 06/06 9:46 AM [facility] Bilirubin Conjugated 0.3 0.1 - 0.5 mg/dL 07/01/2024 9:46 AM [facility] Bilirubin Unconjugated 0.7 Unconjugated Bilirubin is a calculated value: Reference ranges have not been established. mg/dL 07/01/2024 9:46 AM [facility] Alkaline Phosphatase 76 40 - 150 U/L 07/01/2024 9:46 AM [facility] ALT 91(H) 5 - 55 U/L 07/01/2024 9:46 AM [facility] AST 111(H) 5 - 34 U/L 07/01/2024 9:46 AM [facility] Albumin/Globulin Ratio 1.8 1.1 - 2.3 07/01/2024 9:46 AM [facility] Blood BLOOD SPECIMEN / Unknown Lab Venipuncture / Unknown 07/01/2024 4:22 AM [employer]ALATOR INSTALLER 07/01/2024 4:46 AM ESCALATOR INSTALLER Jamel Cavazos MD LAB - CHEMISTRY ORDERABLES Fin al Result [facility] [address] [place] [address], [facility] [phone] * CT ABDOMEN PELVIS W CONTRAST (06/30/2024 5:02 PM ESCALATOR INSTALLER) Anatomical Region Laterality Modality Abdomen, Pelvis Computed Tomogra phy 06/30/2024 5:08 PM ESCALATOR INSTALLER Impressions 06/30/2024 10:01 PM ESCALATOR INSTALLER Impression: 1.Pancreatic atrophy with mild adjacent fat [...] 06/30/2024 10:01 PM Narrative 06/30/2024 10:01 PM ESCALATOR INSTALLER Procedure Information DATE: 06/30/2024 5:02 PM EXAMINATION: [...] Scarlett Biggs MD on 06/30/2024 10:01 PM us Daryl Julian MD CT ORDERABLES Final Resu lt * (ABNORMAL) TROPONIN-I HIGH SENSITIVE REFLEX 1HOUR (06/30/2024 3:57 PM ESCALATOR INSTALLER) Troponin I High Sensitive 71(H) <=35 ng/L 06/30/2024 4:42 PM ESCALATOR INSTALLER [facility] Delta Troponin I HS 4 <6 ng/L 06/30/2024 4:42 PM [facility] Blood BLOOD SPECIMEN / Unknown Venipuncture / Unknown 06/30/2024 3:57 PM ESCALATOR INSTALLER 06/30/2024 4:06 PM ESCALATOR INSTALLER us Daryl Julian MD LAB - CHEMISTRY ORDERABLES Final Result [facility] [address] [place] [address], [facility] [phone] * (ABNORMAL) URINALYSIS REFLEX TO MICROSCOPIC NO CULTURE (06/30/2024 2:52 PM ESCALATOR INSTALLER) Color UA Yellow Yellow, Straw 06/30/2024 4:00 PM [facility] Clarity UA Clear Clear 06/30/2024 4:00 PM [facility] Glucose UA 4+(A) Normal 06/30/2024 4:00 PM [facility] Bilirubin UA 1+(A) Negative 06/30/2024 4:00 PM [facility] Ketone UA 4+(A) Negative 06/30/2024 4:00 PM [facility] Specific [place] UA 1.027 1.005 - 1.030 06/30/2024 4:00 PM [facility] Blood UA 2+(A) Negative 06/30/2024 4:00 PM [facility] pH UA 5.5 5.0 - 9.0 pH 06/30/2024 4:00 PM [facility] Protein UA 2+(A) Negative 06/30/2024 4:00 PM [facility] Urobilinogen UA 4.0(A) Normal mg/dL 025 4:00 PM [facility] Nitrite UA Negative Negative 06/30/2024 4:00 PM [facility] Leukocyte UA Negative Negative 06/30/2024 4:00 PM [facility] RBC UA 3-5 0 - 5 # /hpf 06/30/2024 4:00 PM [facility] WBC UA 0-5 0 - 5 # /hpf 06/30/2024 4:00 [facility] Bacteria UA None Seen None Seen 06/30/2024 4:00 [facility] Squamous Epithelial Cells 0-2 0 - 5 /hpf 06/30/2024 4:00 [facility] Mucus UA 2+ /LPF 06/30/2024 4:00 [facility] Urine URINE SPECIMEN OBTAINED BY CLEAN CATCH PROCEDURE / Unknown Collection / Unknown 06/30/2024 2:52 PM [facility] 06/30/2024 2:58 PM [facility] us Daryl Julian MD LAB - URINALYSIS ORDERABLE S Final Result [facility] [address] [place] [address], [facility] [phone] * (ABNORMAL) URINE DRUG SCREEN IMMUNOASSAY (06/30/2024 2:52 PM [facility]) Amphetamines Screen Urine Negative Negative : < 1000 ng/mL 06/30/2024 3:23 [facility] Barbiturates Screen Urine Negative Negative : < 200 ng/mL 06/30/2024 3:23 [facility] Benzodiazepine Screen Urine Negative Negative : < 200 ng/mL 06/30/2024 3:23 [facility] Opiates Urine Positive(A) Negative : < 300 ng/mL 06/30/2024 3:23 [facility] Comment:Positive urine opiat e screening results should be confirmed by another generally accepted non-immunological method such as gas chromatography or mass spectrometry. Cocaine Metabolites Urine Negative Negative : < 300 ng/mL 06/30/2024 3:23 [facility] Phencyclidine Screen Urine Negative Negative : < 25 ng/ml 06/30/2024 3:23 [facility] Cannabinoids Screen Urine Negative Negative : <50 ng/mL 06/30/2024 3:23 [facility] Methadone Screen Urine Negative Negative : < 300 ng/mL 06/30/2024 3:23 [facility] Fentanyl Screen Urine Positive(A) Negative : <1.5 ng/mL 06/30/2024 3:23 [facility] Comment:Positive urine fenta nyl screening results should be confirmed by another generally accepted non-immunological method such as gas chromatography or mass spectrometry. Urine URINE / Unknown Collection / Unknown 06/30/2024 2:52 PM ESCALATOR INSTALLER 06/30/2024 2:58 PM ESCALATOR INSTALLER Narrative [facility] - 06/30/2024 3:23 PM ESCALATOR INSTALLER The Urine Toxicology Screening Panel does not screen for Propoxyphene, Meprobamate, Carisoprodol, Trazodone, vipj-cfl-bolsstr medications and/or volatiles (Acetone, Isopropanol, Methanol or [...] only. Daryl Julian MD LAB - URINE CHEMISTRY ORDE RABCRYSTAL Final Result Performing Organization Address [facility] Co de Phone Number [address] [address], [facility] [phone] * PT-INR [facility] (06/30/2024 2:48 PM ESCALATOR INSTALLER) PT 12.7 12.1 - 14.8 Seconds 06/30/2024 3:20 PM ESCALATOR INSTALLER [facility] INR 1.0 See Comment 06/30/2024 3:20 PM ESCALATOR INSTALLER [facility] Comment:The suggested therap eutic range for standard coumadin (warfarin) therapy is an INR of 2.0-3.0. For high-risk patients (Mechanical Mitral Valve Prosthesis, etc.), the suggested prophylactic therapeutic range is an INR of 2.5-3.5. Blood BLOOD SPECIMEN / Unknown Venipuncture / Unknown 06/30/2024 2:48 PM ESCALATOR INSTALLER 06/30/2024 2:52 PM ESCALATOR INSTALLER Daryl Julian MD LAB - COAGULATION ORDERABL ES Final Result Performing Organization Address [facility] Co de Phone Number [address] [address], [facility] [phone] * LACTIC ACID BLOOD REFLEX TO REPEAT (06/30/2024 2:48 PM ESCALATOR INSTALLER) [facility] Lactic Acid-Stat 1.3 <=2.0 mmol/L 06/30/2024 3:23 PM ESCALATOR INSTALLER [facility] Blood BLOOD SPECIMEN / Unknown Venipuncture / Unknown 06/30/2024 2:48 PM ESCALATOR INSTALLER 06/30/2024 2:52 PM ESCALATOR INSTALLER Daryl Julian MD LAB - CHEMISTRY ORDERABLES Final Result Performing Organization Address [facility] Co de Phone Number [facility] [address] [place] [address], [place] [phone] * (ABNORMAL) TROPONIN-I HIGH SENSITIVE BASELINE + 1HR (06/30/2024 2:48 PM ESCALATOR INSTALLER) [facility] Troponin I High Sensitive 67(H) <=35 ng/L 06/30/2024 3:32 PM ESCALATOR INSTALLER [facility] Blood BLOOD SPECIMEN / Unknown Venipuncture / Unknown 06/30/2024 2:48 PM ESCALATOR INSTALLER 06/30/2024 2:54 PM ESCALATOR INSTALLER Daryl Julian MD LAB - CHEMISTRY ORDERABLES Final Result Performing Organization Address [facility] de Phone Number [address] [address], [place] [phone] * B-TYPE NATRIURETIC PEPTIDE (06/30/2024 2:48 PM ESCALATOR INSTALLER) [facility] BNP 38 <100 pg/mL 06/30/2024 3:30 PM ESCALATOR INSTALLER [facility] Comment: A decision threshold of 100 pg/mL [...] Unknown Venipuncture / Unknown 06/30/2024 2:48 PM ESCALATOR INSTALLER 06/30/2024 2:54 PM ESCALATOR INSTALLER Daryl Julian MD LAB - CHEMISTRY ORDERABLES Final Result Performing Organization Address [facility]/ZIP Co de Phone Number [address] [address], [facility] [phone] * ALCOHOL ETHYL BLOOD (06/30/2024 2:48 PM ESCALATOR INSTALLER) Ethanol (mg/dL) <10 <10 mg/dL 3:28 PM ESCALATOR INSTALLER [facility] Ethanol Calculated (g/dL) <0.010 <=0.010 g/dL 06/30/2024 3:28 PM ESCALATOR INSTALLER [facility] Blood BLOOD SPECIMEN / Unknown Venipuncture / Unknown 06/30/2024 2:48 PM ESCALATOR INSTALLER 06/30/2024 2:54 PM ESCALATOR INSTALLER Narrative [facility] - 06/30/2024 3:28 PM ESCALATOR INSTALLER Ethanol Interp <10: None Detected. Depression of FLATWORK CATCHER: >100 mg/dl Potentially Critical: >250 mg/dl Potentially Fatal >400 mg/dl Ethanol in the patient's blood will contribute to the osmolar gap. Ethanol's contribution to the osmolar gap can be estimated by dividing the concentration of ethanol in mg/dL by 4.6. This test is for clinical use only and does not equal a HALLIE for legal purposes. Daryl Julian MD LAB - CHEMISTRY ORDERABLES Final Result Performing Organization Address [facility]/ZIP Co de Phone Number [address] [address], [place] [phone] * HIV-1 HIV-2 ANTIBODY + HIV P24 AG PANEL (02/03/2024 8:26 PM CDT) HIV Antigen/Antibod y 1 & 2 Non-reacti ve Non-react judy 02/03/2024 9:49 PM CDT [facility] Comment:No Laboratory eviden ce of HIV infection. Blood BLOOD SPECIMEN / Unknown Line Draw / Unknown 02/03/2024 8:26 PM CDT 02/03/2024 8:36 PM CDT us Aminata Marlow PA-C LAB - CHEMISTRY ORDERABLES F inal Result [facility] [address] [place] [address], [facility] [phone] from Last 3 Months or Most Recently Relevant to Health Maintenance Insurance [facility] [employer] [employer] ANTHEM ANTHEM ANTHEM Advance Directives * Full Code (Latest Code [...] 5:17 PM 02/14/2024 11:35 AM Care Teams Kettle Loader Relationship Specialty Start Date End Date An Kamara, INO-TURN OPERATOR [address] [place] [phone] PCP - General Nurse Practitioner Family 02/16/24
[2024-08-15] MEDS: DOPamine 400 MG/D5W 250 ML 400 MG/250 ML BAG 5.75 MG IV CONT (03:50)
--- NOTE | 2024-08-15 04:05 | PC.NURSE ---
0402 Carla with [facility] calls for triage info. She states will call back with bed assignment.
[2024-08-15] MEDS: DOBUTamine 250 MG/D5W 250 ML 250 MG/250 ML BAG 9.2 MG IV CONT (04:14)
[2024-08-15] MEDS: SODIUM CHLORIDE 0.9% IV 250 ML (04:17)
[2024-08-15] MEDS: CEFEPIME 2 GM/NS 50 ML 2 GM/50 ML BAG IVPB (04:18)
--- NOTE | 2024-08-15 04:19 | ECG_ITS ---
Test Date: 2024-08-15 04:26:26 Measurements Intervals [place] Rate: 104 P: 21 NM: 112 QRS: 88 QRSD: 92 T: 248 QT: 401 QTc: 528 Interpretive Statements [address] TACH[address]CARDIA [address]-T WAVE ABNORMALITY IN ANTEROLAT/INF LEADS- CONSIDER ISCHEMIA BASELINE WANDER- V1 ABNORMAL ECG Compared to ECG 08/15/2024 01:10:14 HEART RATE HAS INCREASED Electronically Signed On 08-15-2024 07:46:23 CDT by Watson Sandoval D.O.
[2024-08-15 04:29] LABS: Fractional Inspired Oxygen 28 %; HCO3 VBG 7.1 mEq/l (24.0-30.0); PO2 VBG 84.1 mmHg (35.0-45.0)
[2024-08-15 04:31] LABS: Device NASAL CANNULA; PCO2 VBG 20.3 mmHg (42.0-48.0); pH VBG 7.161 (7.300-7.400)
[2024-08-15 04:33] LABS: Lactic Acid 4.7 mmol/L (0.7-2.0)
--- NOTE | 2024-08-15 04:38 | PC.NURSE ---
0426 Report called to MADHURI El at [facility].
[2024-08-15 04:46] LABS: Troponin I 0.067 ng/mL (0.000-0.034)
--- NOTE | 2024-08-15 04:47 | PC.NURSE ---
Per Dr Sheffield, titrate up Norepinepherine to 40mcg/min d/t pt's hypotension and multiple pressors.
[2024-08-15] MEDS: VANCOMYCIN 1,500 MG/NS 500 ML 1,500 MG/500 ML BAG 250 MG IVPB (04:50)
[2024-08-15 05:01] LABS: Add Urine Microscopic? YES; Appearance Urine Turbid (Clear); Bacteria Urine 1+ /hpf; Bilirubin Urine Negative (Negative); Blood Urine 3+ (Negative); Color Urine Dark Yellow (Yellow); Glucose Urine UA 2+ mg/dL (Negative); Hyaline Casts Urine Present /lpf; Ketones Urine 2+ mg/dL (Negative); Leukocyte Esterase Ur Negative LEU/UL (Negative); Need Manual Microscopic Reviewed; Nitrate Urine Negative (Negative); Non Pathogenic Casts >20; Protein Urine 4+ mg/dL (Negative); Squamous Epithelial Cell Urine Many /hpf (Few); pH Urine 5.5 (5.0-9.0)
[2024-08-15 05:03] LABS: Amphetamine Screen Urine Negative (Negative); Barbiturate Screen Urine Negative (Negative); Benzodiazepines Screen Urine Negative (Negative); Cannabinoid Screen Urine Negative (Negative); Cocaine Screen Urine Negative (Negative); Methadone Screen Urine Negative (Negative); Opiate Screen Urine Negative (Negative); Phencyclidine Screen Urine Negative (Negative)
--- NOTE | 2024-08-15 05:16 | PC.NURSE ---
[facility] in room receiving orders from ERP for drip titration.
--- NOTE | 2024-08-15 05:26 | PC.NURSE ---
Pt c/o nausea to flight crew, VORB to give 4mg zofran IVP. Med pulled and given by flight nurse.
[2024-08-15] MEDS: ONDANSETRON INJ 4 MG/2 ML VIAL (05:29)
--- NOTE | 2024-08-15 05:39 | PC.NURSE ---
Patient being loaded into [employer] helicopter. Patient leaving and heading to [place] now. Called [facility], spoke to MADHURI El and gave update on drips and that patient is being loaded into the helicopter.
== END 2024-08-15 05:43 | disposition short-term general hospital (02) ==
PROVIDERS: Emergency Provider Emergency Medicine
DX: I50.9 Heart failure, unspecified (principal); R57.0 Cardiogenic shock; F10.20 Alcohol dependence, uncomplicated; Z20.822 Contact with and (suspected) exposure to COVID-19; I42.6 Alcoholic cardiomyopathy; E11.42 Type 2 diabetes mellitus with diabetic polyneuropathy; F41.9 Anxiety disorder, unspecified; F17.210 Nicotine dependence, cigarettes, uncomplicated; Y90.8 Blood alcohol level of 240 mg/100 ml or more; Z79.84 Long term (current) use of oral hypoglycemic drugs; Z79.899 Other long term (current) drug therapy; I49.3 Ventricular premature depolarization; R00.0 Tachycardia, unspecified; R94.31 Abnormal electrocardiogram [ECG] [EKG]
CPT/HCPCS: 36415; 71045; 80053; 80307; 81001; 82077; 82803; 83605; 83690; 83735; 83880; 84145; 84484; 85025; 85610; 85730; 87040; 87637; 93005; 96365; 96366; 96367; 96368; 96375; 99291; J0692; J1250; J1265; J2371; J2405; J3370; J7030; J7050; J7060

== ENCOUNTER 2024-08-28 21:44 | Observation (INO) | payer BC, SELFPAY ==
--- NOTE | ~2024-08-28 | CT_ITS ---
EXAMINATION: CT chest abdomen pelvis wo con DATE: 08/29/2024 01:13 INDICATION: Chest pain and shortness of breath TECHNIQUE: Computed tomography (CT) of the chest, abdomen, and pelvis was performed without intraveno us contrast. Automated exposure control and iterative reconstruction technique were employed. The dos e-length product was 687.31 mGy-cm. COMPARISON: None FINDINGS: CHEST CT: Patchy groundglass opacities, dependent consolidation and scattered mucous plugging in the bilateral lower lobes consistent with pneumonia. No pulmonary edema or pleural effusion. Mild cardiomegaly. No pericardial effusion. Thoracic aorta is normal in caliber. No pathologically enlarged thoracic lympha denopathy. Postoperative changes in the left infraclavicular region which may be related to reported history of prior ECMO. Mild thoracic spondylosis. ABDOMEN/PELVIS CT: Diffuse hepatic steatosis. Gallbladder, spleen, pancreas, bilateral adrenal glands and kidneys are no rmal. Bowels including appendix are normal. Bladder is normal. No free intraperitoneal gas or fluid. No pathologically enlarged abdominal or pelvic lymphadenopathy. Sacralized L5 segment. IMPRESSION: 1. Patchy groundglass opacities, consolidation and mucous plugging in the bilateral lower lobes consi stent with pneumonia. 2. No acute intra-abdominal/pelvic process. 3. Diffuse hepatic steatosis. Reviewed, dictated and finalized at location A. IMPRESSION: 1. Patchy groundglass opacities, consolidation and mucous plugging in the bilat eral lower lobes consistent with pneumonia. 2. No acute intra-abdominal/pelvic process. 3. Diffuse hepatic steatosis.
--- NOTE | ~2024-08-28 | CT_ITS ---
EXAMINATION: CTA abd aorta runoff DATE: 08/29/2024 01:13 INDICATION: Chest and neck pain. Leg pain. TECHNIQUE: Computed tomographic angiography (CTA) of the abdominal, pelvis, and both lower extremitie s was performed with 150 mL Omnipaque 350 intravenous contrast. Automated exposure control and iterat judy reconstruction technique were employed. The dose-length product was 1244.51 mGy-cm. COMPARISON: None. FINDINGS: ABDOMINAL AORTA AND ITS BRANCHES: Abdominal aorta is normal in caliber with no atherosclerotic plaque or dissection. The celiac axis, s uperior mesenteric and inferior mesenteric arteries are normal in caliber with no atherosclerotic ellen que or dissection. The main left and right renal arteries along with a tiny accessory right renal art trey and a pair of tiny accessory left renal arteries are normal in caliber with no atherosclerotic pl aque or dissection. The bilateral common, external and internal iliac arteries are normal in caliber with no atherosclerotic plaque or dissection. 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 There is a short dissection fla p within the right common femoral artery. The right femoral, profunda femoral, popliteal, anterior ti bial, posterior tibial and peroneal arteries are patent with no evident atherosclerotic plaque or dis section. Three-vessel runoff below the right ankle. There are a pair of fixation screws at the right medial malleolus. LEFT LOWER EXTREMITY: The left common femoral, femoral, profunda femoral, popliteal, anterior tibial, posterior tibial and peroneal arteries are patent with no evident atherosclerotic plaque or dissection. Three-vessel runof f below the left ankle. ADDITIONAL FINDINGS: Groundglass opacities, consolidation and some mucous plugging in the bilateral lower lobes consistent with pneumonia. Heart size is normal. No pericardial or pleural effusion. Diffuse hepatic steatosis. The gallbladder, spleen, pancreas, bilateral adrenal glands and kidneys are normal. Bowels including the appendix are normal. There are postoperative change at the right inguinal region suggesting prio r vascular access. IMPRESSION: 1. 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 2. Bilateral lower lobe pneumonia. 3. Reviewed, dictated and finalized at location A. IMPRESSION: 1. 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 2. Bilateral lower lobe pneumonia. 3.
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
--- NOTE | ~2024-08-28 | CT_ITS ---
EXAMINATION: CT brain wo con DATE: 08/29/2024 01:13 INDICATION: Altered mental status TECHNIQUE: Computed tomography (CT) of the head was performed without intravenous contrast. Sagittal and coronal reconstructions were performed. The mA was adjusted according to patient size. Iterative reconstruction technique was employed. The dose-length product was 681.00 mGy-cm. COMPARISON: None FINDINGS: No acute intracranial hemorrhage, acute infarction or abnormal extra axial fluid collection. Ventricl es are normal and symmetric. No mass/mass effect. The orbits, paranasal sinuses and mastoid air cells are normal. IMPRESSION: 1. Normal head CT. Reviewed, dictated and finalized at location A. IMPRESSION: 1. Normal head CT.
--- NOTE | ~2024-08-28 | XR_ITS ---
EXAMINATION: XR chest 1V portable DATE: 08/28/2024 23:05 INDICATION: Alcohol withdrawal. Weakness. TECHNIQUE: frontal view of the chest was obtained. COMPARISON: Chest radiograph date FINDINGS: The lungs remain clear with no focal airspace opacities, pulmonary edema, pleural effusion or pneumot horax. The cardiomediastinal silhouette is normal. A few left infraclavicular surgical clips. Visuali zed bones and soft tissues are otherwise unremarkable. IMPRESSION: 1. No acute cardiopulmonary disease. Reviewed, dictated and finalized at location A.
[2024-08-28 21:36] VITALS: BP 118/86; PULSE 129; RESP 24; TEMP 36.9; O2SAT 100
--- NOTE | 2024-08-28 21:41 | ECG_ITS ---
Test Date: 2024-08-28 21:41:01 Measurements Intervals [place] Rate: 130 P: 45 ND: 130 QRS: 89 QRSD: 93 T: 41 QT: 333 QTc: 490 Interpretive Statements SINUS TACHYCARDIA INCOMPLETE RIGHT BUNDLE BRANCH BLOCK LOW QRS VOLTAGE IN LIMB LEADS BORDERLINE T WAVE ABNORMALITY- ANTERIOR LEADS BASELINE WANDER- II, III, V3, V6 ABNORMAL ECG Compared to ECG 08/15/2024 04:26:26 Possible ischemia no longer present Electronically Signed On 08-29-2024 12:46:12 CDT by Watson Sandoval D.O.
[2024-08-28 21:47] VITALS: O2SAT 98
[2024-08-28 21:51] VITALS: BP 118/86; PULSE 120; RESP 26; TEMP 36.9; O2SAT 100
--- NOTE | 2024-08-28 22:10 | ED_ITS ---
HPI - Chest Pain General Chief Complaint: Chest Pain <Emily Araiza APRN - Last Filed: 08/29/24 03:29> Stated Complaint: chest pain <Emily Araiza APRN - Last Filed: 08/29/24 03:29> Time Seen by Provider: 08/28/24 21:46 <Emily Araiza APRN - Last Filed: 08/29/24 03:29> History of Present Illness HPI narrative: Patient is a 34-year-old male who presents to the ER with complaints of chest and neck pain. He also endorses bilateral feet pain from they gave me bilateral thrombosis when I was on ECMO in February. Patient reports he has difficulty ambulating now due to the pain in his legs. He reports the chest pain started approximately 2 hours prior to arrival. 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 He has been on a Milrinone drip in the past but is no longer on that medication. Patient reports his last alcoholic drink was about noon today and he drank approximately 2 pts. <Emily Araiza APRN - Last Filed: 08/29/24 03:29> Related Data Home Medications: Home Medications ?Medication ?Instructions ?Recorded ?Confirmed ?Last Taken ?Type biotin 10,000 mcg capsule 10,000 mcg PO DAILY 07/28/24 07/28/24 Unknown History clonazepam 2 mg tablet 2 mg PO BID 07/28/24 07/28/24 Unknown History cyclobenzaprine 5 mg tablet 5 mg PO Q6H 07/28/24 07/28/24 Unknown History empagliflozin 10 mg tablet 10 mg PO DAILY 07/28/24 07/28/24 Unknown History (Jardiance) ferrous sulfate 325 mg (65 mg 325 mg PO DAILY 07/28/24 07/28/24 Unknown History iron) tablet folic acid 400 mcg tablet 400 mcg PO DAILY 07/28/24 07/28/24 Unknown History furosemide 20 mg tablet 20 mg PO DAILY 07/28/24 07/28/24 Unknown History hydrocodone 10 mg-acetaminophen 1 tablet PO Q4H PRN pain (scale 07/28/24 07/28/24 Unknown History 325 mg tablet score 4-6) lorazepam 2 mg tablet (Ativan) 2 mg PO Q4H PRN anxiety 07/28/24 07/28/24 Unknown History losartan 25 mg tablet 12.5 mg PO DAILY 07/28/24 07/28/24 Unknown History melatonin 10 mg tablet 10 mg PO HS 07/28/24 07/28/24 Unknown History midodrine 10 mg tablet 5 mg PO DAILY PRN low blood 07/28/24 07/28/24 Unknown History pressure milrinone 40 mg/200 mL(200 mcg/mL) See Rx Instructions continuous IV 07/28/24 07/28/24 07/28/24 History in 5 % dextrose intravenous piggybk infusion .COMPLEX ondansetron 4 mg disintegrating 4 mg PO Q6H PRN nausea and vomiting 07/28/24 07/28/24 Unknown History tablet oxycodone 5 mg tablet 10 mg PO Q4H PRN pain (scale score 07/28/24 07/28/24 Unknown History 7-10) spironolactone 25 mg tablet 12.5 mg PO DAILY 07/28/24 07/28/24 Unknown History (Aldactone) theanine 200 mg capsule 200 mg PO DAILY 07/28/24 07/28/24 Unknown History zolpidem 10 mg tablet 10 mg PO HS PRN insomnia 07/28/24 07/28/24 Unknown History <Emily Araiza APRN - Last Filed: 08/29/24 03:29> Allergies/Adverse Reactions: Allergies Allergy/AdvReac Type Severity Reaction Status Date / Time Sulfa (Sulfonamide Allergy Unknown Unknown Verified 08/15/24 01:18 Antibiotics) sulfamethoxazole Allergy Unknown Unknown Verified 08/15/24 01:18 trimethoprim Allergy Unknown Unknown Verified 08/15/24 01:18 <Emily Araiza APRN - Last Filed: 08/29/24 03:29> Review of Systems 2 Review of Systems: All systems reviewed & are unremarkable except as noted in HPI and below <Emily Araiza APRN - Last Filed: 08/29/24 03:29> [facility] Past Medical History Medical History: Medical History (Updated 08/29/24 @ 05:44 by Demetrius Fair MD) Severe protein-calorie malnutrition Diabetes mellitus Insomnia Peripheral neuropathy Dilated cardiomyopathy secondary to alcohol With prior episode of heart failure requiring ECMO fall 2023 due to cardiogenic shock Anxiety Hepatic steatosis Alcoholism Pancreatitis hx of necrotizing pancreatitis November 2023 Hx of pseudocyst that was drained <Emily Araiza APRN - Last Filed: 08/29/24 03:29> Surgical History Surgical History: Surgical History (Updated 08/29/24 @ 04:53 by Ashley Coates DO) Personal history of extracorporeal membrane oxygenation (ECMO) History of cardiac catheterization History of ankle surgery <Emily Araiza APRN - Last Filed: 08/29/24 03:29> Family History Family History: Family History Father Heart disease Hypertension <Emily Araiza APRN - Last Filed: 08/29/24 03:29> Social History Social History: Social History Social History: Smokes 1ppd x16 years. Alcohol use as above. Drug use hx as above Full code Surrogate decision maker - mother Smoking packs per day: 1 Smoking cigarettes per day: 20.0 Smoking status: Current every day smoker Tobacco type: cigarettes Alcohol intake: current Substance use: current Substance use type: marijuana Do You Feel Safe in your Home?: Yes Lack of Transportation: No Lack of Food: Never True Current Housing: I Have Housing Concerned About Future Housing: No Difficulty Paying Gas/Electric Bills: No Difficulty Paying for Meds: No Currently Unemployed: No Education: High School Diploma/GED Difficulty w/ Childcare or Family Care: No Spiritual care concerns: No <Emily Araiza APRN - Last Filed: 08/29/24 03:29> Exam 2 Narrative: GENERAL: Ill appearing, well-nourished, non-toxic, in acute distress due to pain. HEAD: Normocephalic, atraumatic. NECK: Supple. No adenopathy, no masses. RESPIRATORY: Airway patent, respirations nonlabored. Clear to auscultation bilaterally, no rales, rhonchi, wheezing. CARDIOVASCULAR: Tachycardia without murmurs, rubs, or gallops. Peripheral pulses 2+ and equal bilaterally. ABDOMINAL: Soft, nontender, nondistended, no hepatosplenomegaly. Normoactive BS. MUSCULOSKELETAL: Moves all extremities. Strength/ROM intact without gross deformities. SKIN: Warm, dry, normal color. No rashes. NEURO: A&O X3. Speech clear. Cranial nerves II-XII intact. No ataxic movements. PSYCHIATRIC: Flat affect <Emily Araiza APRN - Last Filed: 08/29/24 03:29> Course Course Emergency Course: NAA: Signed out pending vascular consult. Discussed with Dr. Pena (vascular) at [facility]. Femoral dissection is incidental. It is not causing pain. His leg is well perfused. This is likely residual from a prior arterial line. No interventions at this time. Patient should be placed on ASA 325mg daily. No reason for transfer at this time. Case was discussed with Raen. Patient will be admitted for further management. <Demetrius Fair MD - Last Filed: 08/29/24 05:44> Vital Signs Vital signs: Vital Signs Temperature 98.5 F 08/28/24 21:36 Pulse Rate 129 H 08/28/24 21:36 Respiratory Rate 24 H 08/28/24 21:36 Blood Pressure 118/86 08/28/24 21:36 Pulse Oximetry 100 08/28/24 21:36 Oxygen Delivery Room Air 08/28/24 21:36 Temperature 98.5 F 08/28/24 21:51 Pulse Rate 120 H 08/28/24 21:51 Respiratory Rate 26 H 08/28/24 21:51 Blood Pressure 118/86 08/28/24 21:51 Pulse Oximetry 100 08/28/24 21:51 Oxygen Delivery Room Air 08/28/24 21:47 <Emily Araiza APRN - Last Filed: 08/29/24 03:29> Vital Signs Temperature 98.5 F 08/28/24 21:36 Pulse Rate 129 H 08/28/24 21:36 Respiratory Rate 24 H 08/28/24 21:36 Blood Pressure 118/86 08/28/24 21:36 Pulse Oximetry 100 08/28/24 21:36 Oxygen Delivery Room Air 08/28/24 21:36 Temperature 98.5 F 08/28/24 21:51 Pulse Rate 120 H 08/28/24 21:51 Respiratory Rate 26 H 08/28/24 21:51 Blood Pressure 118/86 08/28/24 21:51 Pulse Oximetry 100 08/28/24 21:51 Oxygen Delivery Room Air 08/28/24 21:47 <Demetrius Fair MD - Last Filed: 08/29/24 05:44> MDM - Chest Pain MDM Narrative Medical decision making narrative: Patient is a 34-year-old male who presents to the ER with complaints of chest and neck pain. He also endorses bilateral lower extremity pain from they gave me two thrombus when I was on ECMO in February. Patient reports he has difficulty ambulating now due to the pain in his legs. He reports the chest pain started approximately 2 hours prior to arrival. 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 He has been on a Milrinone drip in the past but is no longer on that medication. Patient reports his last alcoholic drink was around noon today and he drank approximately 2 pints. He also admits to taking clonazepam earlier today. Upon examination by MD, pt reports he has pain in his L leg from where my ECMO line was. Labs Ordered: CBC, CMP, COVID/flu/RSV, ABG, TSH, D-dimer, lactic acid, lipase, proBNP, ethanol, UA, troponin, PTT, INR, UDS Imaging Ordered: chest x-ray, CT chest abdomen pelvis without contrast (d/t need for contrast in pt's CT aorta with runoff scan), CT head, CT aorta with runoff (ordered d/t pt's complaints of chest pain, neck pain, and leg pain) Medications Ordered: 1 L normal saline IV bolus x 2, ceftriaxone 1 g IV, azithromycin 500 mg IV, Dilaudid 0.5 mg IV, Ativan 1 mg IV Results: Patient's CBC indicates a white blood cell count of 20.1, red blood cell count 3.61, hemoglobin of 10.5, hematocrit of 33.1%, platelet count of 446, neutrophils of 79.3%. His coags were all within normal limits. Patient's CMP indicates an anion gap of 19, creatinine is 0.55, glucose of 146. His proBNP was 1060. Patient's arterial blood gas indicates a pH of 7.518, CO2 of 34.8, PO2 of 69.4, HC03 of 27.7. Pt's CT chest/abdomen/pelvis indicates mild pneumonia and hepatic steatosis. Patient's CT head indicates no acute intracranial hemorrhage, no midline shift or mass effect. Pt's CTA runoff scan indicates a focal dilatation of the right common femoral artery, 1.2 cm, with dissection flap and mural thrombus to the SFA/DFA bifurcation. Diagnosis: Pneumonia, sepsis, R femoral dissection Patient Education/Shared MDM: Results shared with patient. He verbalizes understanding and is in agreement with plan for admission. 0300- Spoke with hospitalist who advised pt should be admitted to a facility with vascular surgery. Pt was on ECMO at [facility] so their transfer line will be called. [id number]-Spoke with transfer line who took report on patient and will return our call. <Emily Araiza APRN - Last Filed: 08/29/24 03:29> Differential Diagnosis Differential diagnosis: Likely st elevation myocardial infarction, chest pain and other (NSTEMI, pneumonia, CHF, cardiomyopathy) <Emily Araiza APRN - Last Filed: 08/29/24 03:29> Lab Data Result diagrams: 08/28/24 22:16 08/28/24 22:16 <Emily Araiza CHILD PSYCHOLOGY TEACHER - Last Filed: 08/29/24 03:29> Labs: Lab Results 08/28/24 08/29/24 08/29/24 Range/Units 22:16 00:03 01:57 WBC 20.1 H (4.5-10.0) K/mm3 RBC 3.61 L (4.6-6.20) M/mm3 Hgb 10.5 L (14.0-18.0) g/dL Hct 33.1 L (42.0-52.0) % MCV 91.7 (80-100) fl MCH 29.1 (26-34) pg MCHC 31.7 L (32-36) g/dl RDW 17.2 H (11.5-14.5) % Plt Count 446 H D (150-375) k/mm3 MPV 9.2 (7.4-10.4) fl Immature Gran % (Auto) 0.4 (0-0.5) % Neut % (Auto) 79.3 H (45.5-73.1) % Lymph % (Auto) 10.6 L (18.3-44.2) % Clarke % (Auto) 8.9 H (2.6-8.5) % Eos % (Auto) 0.1 (0-4.4) % Baso % (Auto) 0.7 (0.2-1.2) % Lymph # (Auto) 2.12 (0.9-3.2) K/mm3 Clarke # (Auto) 1.8 H (0.1-0.6) K/mm3 Eos # (Auto) 0.0 (0-0.3) K/mm3 Baso # (Auto) 0.1 (0.0-0.1) K/mm3 Abs Immat Gran (auto) 0.08 H (0.00-0.031) K/mm3 Absolute Neuts (auto) 15.9 H (1.3-6.7) K/mm3 Absolute Nucleated RBC 0.000 (0.0-0.012) K/mm3 Nucleated RBC % 0.0 (0.0-0.2) % PT 12.8 (11.1-14.7) Seconds INR 0.9 APTT 33.6 (22.3-36.8) Seconds D-Dimer 0.40 (<0.48) ug/mL Sodium 140 (137-145) mmol/L Potassium 3.8 (3.4-5.0) mmol/L Chloride 98 (98-107) mmol/L Carbon Dioxide 23 (22-30) mmol/L Anion Gap 19 H (4-12) mmol/L BUN 17 (9-20) mg/dL Creatinine 0.55 L (0.7-1.3) mg/dL Estim Creat Clear Calc 137 ml/min Estimated GFR > 60 (59 - ) Glucose 146 H (65-110) mg/dL Lactic Acid 1.1 (0.7-2.0) mmol/L Calcium 9.1 (8.4-10.2) mg/dL Total Bilirubin 0.4 (0.2-1.3) mg/dL AST 33 (17-59) U/L ALT 29 (6-50) U/L Alkaline Phosphatase 68 (38-126) U/L Troponin I 0.033 0.037 H* (0.000-0.034) ng/mL C-Reactive Protein 2.3 H (<1.0) mg/dL NT-Pro-B Natriuret Pep 1060 H (19.9-100) pg/mL Total Protein 7.0 (6.3-8.2) g/dL Albumin 4.7 (3.5-5.1) g/dL Lipase 12 L (23-300) U/L TSH (Reflex) 0.591 (0.465-4.68) uIU/mL Urine Color Yellow (Yellow) Urine Appearance Clear (Clear) Urine pH 5.5 (5.0-9.0) Ur Specific Champion 1.014 (1.001-1.035) Urine Protein Negative (Negative) mg/dL Urine Glucose (UA) Negative (Negative) mg/dL Urine Ketones 1+ H (Negative) mg/dL Ur Blood (Man) Negative (Negative) Urine Nitrate Negative (Negative) Urine Bilirubin Negative (Negative) Urine Urobilinogen 0.2 (<2.0) mg/dL Leukocyte Esterase Rfl Negative (Negative) MATEUS/UL Urine Opiates Screen Negative (Negative) Urine Methadone Screen Negative (Negative) Ur Barbiturates Screen Negative (Negative) Ur Phencyclidine Scrn Negative (Negative) Ur Amphetamine Screen Negative (Negative) U Benzodiazepines Scrn Positive A (Negative) Urine Cocaine Screen Negative (Negative) U Cannabinoids Screen Negative (Negative) Ethyl Alcohol < 10 (<10) mg/dL Influenza A (RT-PCR) Negative (Negative) Influenza B (RT-PCR) Negative (Negative) RSV (RT-PCR) Negative (Negative) SARS-CoV-2 RNA (RT-PCR) Negative (Negative) <Emily Araiza, CHILD PSYCHOLOGY TEACHER - Last Filed: 08/29/24 03:29> Lab Results 08/28/24 08/29/24 08/29/24 Range/Units 22:16 00:03 01:57 WBC 20.1 H (4.5-10.0) K/mm3 RBC 3.61 L (4.6-6.20) M/mm3 Hgb 10.5 L (14.0-18.0) g/dL Hct 33.1 L (42.0-52.0) % MCV 91.7 (80-100) fl MCH 29.1 (26-34) pg MCHC 31.7 L (32-36) g/dl RDW 17.2 H (11.5-14.5) % Plt Count 446 H D (150-375) k/mm3 MPV 9.2 (7.4-10.4) fl Immature Gran % (Auto) 0.4 (0-0.5) % Neut % (Auto) 79.3 H (45.5-73.1) % Lymph % (Auto) 10.6 L (18.3-44.2) % Clarke % (Auto) 8.9 H (2.6-8.5) % Eos % (Auto) 0.1 (0-4.4) % Baso % (Auto) 0.7 (0.2-1.2) % Lymph # (Auto) 2.12 (0.9-3.2) K/mm3 Clarke # (Auto) 1.8 H (0.1-0.6) K/mm3 Eos # (Auto) 0.0 (0-0.3) K/mm3 Baso # (Auto) 0.1 (0.0-0.1) K/mm3 Abs Immat Gran (auto) 0.08 H (0.00-0.031) K/mm3 Absolute Neuts (auto) 15.9 H (1.3-6.7) K/mm3 Absolute Nucleated RBC 0.000 (0.0-0.012) K/mm3 Nucleated RBC % 0.0 (0.0-0.2) % PT 12.8 (11.1-14.7) Seconds INR 0.9 APTT 33.6 (22.3-36.8) Seconds D-Dimer 0.40 (<0.48) ug/mL Sodium 140 (137-145) mmol/L Potassium 3.8 (3.4-5.0) mmol/L Chloride 98 (98-107) mmol/L Carbon Dioxide 23 (22-30) mmol/L Anion Gap 19 H (4-12) mmol/L BUN 17 (9-20) mg/dL Creatinine 0.55 L (0.7-1.3) mg/dL Estim Creat Clear Calc 137 ml/min Estimated GFR > 60 (59 - ) Glucose 146 H (65-110) mg/dL Lactic Acid 1.1 (0.7-2.0) mmol/L Calcium 9.1 (8.4-10.2) mg/dL Total Bilirubin 0.4 (0.2-1.3) mg/dL AST 33 (17-59) U/L ALT 29 (6-50) U/L Alkaline Phosphatase 68 (38-126) U/L Troponin I 0.033 0.037 H* (0.000-0.034) ng/mL C-Reactive Protein 2.3 H (<1.0) mg/dL NT-Pro-B Natriuret Pep 1060 H (19.9-100) pg/mL Total Protein 7.0 (6.3-8.2) g/dL Albumin 4.7 (3.5-5.1) g/dL Lipase 12 L (23-300) U/L TSH (Reflex) 0.591 (0.465-4.68) uIU/mL Urine Color Yellow (Yellow) Urine Appearance Clear (Clear) Urine pH 5.5 (5.0-9.0) Ur Specific Champion 1.014 (1.001-1.035) Urine Protein Negative (Negative) mg/dL Urine Glucose (UA) Negative (Negative) mg/dL Urine Ketones 1+ H (Negative) mg/dL Ur Blood (Man) Negative (Negative) Urine Nitrate Negative (Negative) Urine Bilirubin Negative (Negative) Urine Urobilinogen 0.2 (<2.0) mg/dL Leukocyte Esterase Rfl Negative (Negative) MATEUS/UL Urine Opiates Screen Negative (Negative) Urine Methadone Screen Negative (Negative) Ur Barbiturates Screen Negative (Negative) Ur Phencyclidine Scrn Negative (Negative) Ur Amphetamine Screen Negative (Negative) U Benzodiazepines Scrn Positive A (Negative) Urine Cocaine Screen Negative (Negative) U Cannabinoids Screen Negative (Negative) Ethyl Alcohol < 10 (<10) mg/dL Influenza A (RT-PCR) Negative (Negative) Influenza B (RT-PCR) Negative (Negative) RSV (RT-PCR) Negative (Negative) SARS-CoV-2 RNA (RT-PCR) Negative (Negative) <Demetrius Fair MD - Last Filed: 08/29/24 05:44> ABG Data ABG results: 08/28/24 22:21 Puncture Site Right radial ABG pH 7.518 H* ABG pCO2 34.8 L ABG pO2 69.4 L ABG PO2/FiO2 Ratio 3.30 ABG HCO3 27.7 H ABG O2 Saturation 95.5 ABG O2 Content 13.4 L ABG Base Excess 4.7 A-a Gradient 38.7 Oxyhemoglobin 90.0 Total Hemoglobin 10.5 L O2 Delivery Device Nasal cannula O2 Liters/Min 2.0 FiO2 28 <Emily Araiza APRN - Last Filed: 08/29/24 03:29> 08/28/24 22:21 Puncture Site Right radial ABG pH 7.518 H* ABG pCO2 34.8 L ABG pO2 69.4 L ABG PO2/FiO2 Ratio 3.30 ABG HCO3 27.7 H ABG O2 Saturation 95.5 ABG O2 Content 13.4 L ABG Base Excess 4.7 A-a Gradient 38.7 Oxyhemoglobin 90.0 Total Hemoglobin 10.5 L O2 Delivery Device Nasal cannula O2 Liters/Min 2.0 FiO2 28 <Demetrius Fair MD - Last Filed: 08/29/24 05:44> Discharge Plan Discharge Clinical Impression: Sepsis Pneumonia Qualifiers: Pneumonia type: due to unspecified organism Laterality: bilateral Lung location: lower lobe of lung Qualified Code(s): J18.9 - Pneumonia, unspecified organism <Emily Araiza APRN - Last Filed: 08/29/24 03:29> Patient Disposition: Still a Patient <Emily Araiza APRN - Last Filed: 08/29/24 03:29> Condition: Stable <Emily Araiza APRN - Last Filed: 08/29/24 03:29> Patient Language: Persian <Emily Araiza APRN - Last Filed: 08/29/24 03:29> Prescriptions: No Action milrinone in 5 % dextrose 40 mg/200 mL (200 mcg/mL) piggyback See Rx Instructions continuous IV infusion .COMPLEX Rx Instructions: via continuous IV infusion; 2.8 mg/hr hydrocodone-acetaminophen 10-325 mg tablet 1 tablet PO Q4H PRN (Reason: pain (scale score 4-6)) oxycodone 5 mg tablet 10 mg PO Q4H PRN (Reason: pain (scale score 7-10)) spironolactone [Aldactone] 25 mg tablet 12.5 mg PO DAILY clonazepam 2 mg tablet 2 mg PO BID lorazepam [Ativan] 2 mg tablet 2 mg PO Q4H PRN (Reason: anxiety) Rx Instructions: do not exceed 5 doses per 24 hrs zolpidem 10 mg tablet 10 mg PO HS PRN (Reason: insomnia) midodrine 10 mg tablet 5 mg PO DAILY PRN (Reason: low blood pressure) cyclobenzaprine 5 mg tablet 5 mg PO Q6H Jardiance 10 mg tablet 10 mg PO DAILY furosemide 20 mg tablet 20 mg PO DAILY ondansetron 4 mg tablet,disintegrating 4 mg PO Q6H PRN (Reason: nausea and vomiting) losartan 25 mg tablet 12.5 mg PO DAILY folic acid 400 mcg tablet 400 mcg PO DAILY melatonin 10 mg tablet 10 mg PO HS biotin 10,000 mcg capsule 10,000 mcg PO DAILY ferrous sulfate 325 mg (65 mg iron) tablet 325 mg PO DAILY theanine 200 mg capsule 200 mg PO DAILY <Emily Araiza APRN - Last Filed: 08/29/24 03:29> Follow-up/Referrals: PHYSICIAN NOT ON STAFF,NONSTAFF [Primary Care Provider] - <Emily Araiza APRN - Last Filed: 08/29/24 03:29>
--- OUTSIDE RECORDS SUMMARY | 2024-08-28 22:23 | XMS_ITS | Clinical Summary ---
Author Organization [facility] [address] Address [address] [place] [address] Care Team Providers Care Supportability Engineer Name Role Phone Michael, Pelon Piedra MD Primary Care Provi panda Erich Infante MD Unavailable [phone] Simran Pruett Unavailable Unavailable Allergies Active Allergy [...] (four) hours as needed 02/18/20 24 Active HYDROcodone-aceta minophen (NORCO) 10-325 mg per tablet 04/16/20 24 [...] (AMBIEN) 10 mg tablet 04/13/20 24 Active heparin 10 unit/mL syringe Acti ve Normal Saline Flush injection 04/30/20 24 Active spironolactone (ALDACTONE) 25 mg tablet Take 0.5 tablets (12.5 mg total) by mouth daily 45 tablet 3 07/27/19 25 026 Active ivabradine (CORLANOR) 5 mg tabletIndications :chronic heart failure Take 1 tablet (5 mg total) by mouth 2 (two) times a day 180 tablet 3 07/28/19 25 026 Active carvediloL (COREG) 3.125 mg tablet Take 1 tablet (3.125 mg total) by mouth 2 (two) times a day with meals 60 tablet 11 08/22/19 25 026 Active pregabalin (LYRICA) 100 mg capsule Take 1 capsule (100 mg total) by mouth daily 30 capsule 5 08/23/[address] (PROTONIX) 40 mg EC tabletIndications :Treatment of Non-Bleeding Gastric Disorder Take 1 tablet (40 mg total) by mouth daily 30 tablet 11 08/23/19 25 026 Active sacubitriL-valsar guy (ENTRESTO) 24-26 mg tabletIndications :chronic heart failure Take 0.5 tablets by mouth 2 (two) times a day 30 tablet 11 08/22/19 25 026 Active insulin lispro (HumaLOG) 100 unit/mL pen for injection Inject 3 Units under the skin 3 (three) times a day with meals 15 mL 08/22/19 25 026 Active pen needle, diabetic 32 gauge x 5/32 needle Use as directed 3 times a day. 100 each 08/22/19 Active empagliflozin (JARDIANCE) 10 mg tablet Take 1 tablet (10 mg total) by mouth daily 30 tablet 11 04/16/20 24 025 Discontinu ed(Stop Taking at Discharge) losartan (COZAAR) 25 mg tablet Take 1 tablet (25 mg total) by mouth daily 90 tablet 3 06/23/19 025 Discontinu ed(Stop Taking at Discharge) milrinone in dextrose 5% (PRIMACOR) 40 mg/200 mL (200 mcg/mL) infusion Infuse 6.35 mcg/min into a venous catheter continuously 200 mL 06/24/19 Discontinu ed(Stop Taking at Discharge) potassium chloride ER (KLOR-CON) 20 mEq CR tabletIndications :Hypokalemia Take 1 tablet (20 mEq total) by mouth 4 (four) times a day for 2 days 8 tablet 08/12/19 025 Discontinu ed(Stop Taking at Discharge) oxyCODONE (ROXICODONE) 10 mg tabletIndications :Pain Take 1 tablet (10 mg total) by mouth every 6 (six) hours as needed for pain for up to 5 days 20 tablet 08/22/19 25 025 insulin lispro (HumaLOG, ADMELOG) 100 unit/mL pen for injectionIndicati ons:Diabetes Mellitus Inject 3 Units under the skin 3 (three) times a day with meals 15 mL 1 08/22/19 25 025 Discontinu ed(Stop Taking at Discharge) Hospital, Clinic, or Other Facility Administered Medication Ordered Dose Route Frequency Start Date End Date Status heparin 10 unit/mL flush 50 Units 50 Units cath As needed 06/23/2024 08/21/2024 Discontinu ed Active Problems Problem Noted Date Diagnosed Date Rash of neck 08/19/2024 Assessment & Plan (08/21/2024 1:17 PM CDT): Pruritic with some local erythema around prior IV insertion (EJ line?). Does not seem to be spreading. Not painful. Suspect contact dermatitis. - topical emollients, sarna Assessment & Plan (08/20/2024 11:59 AM CDT): Pruritic with some local erythema around prior IV insertion (EJ line?). Does not seem to be spreading. Not painful. Suspect contact dermatitis. - topical emollients, sarna Assessment & Plan (08/19/2024 7:19 PM CDT): Pruritic with some local erythema around prior IV insertion (EJ line?). Does not seem to be spreading. Not painful. Suspect contact dermatitis. - topical emollients, sarna Type 1 diabetes mellitus 08/16/2024 Assessment & Plan (08/21/2024 1:17 PM CDT): DM related to pancreatitis, on 5-10 units of Lantus at home but not any short- acting insulin. Cont Lantus 5 Units and Lispro 3 Units TID with meals for now. Will not resume Jardiance given type 1 DM physiology and DKA. Monitor sugars closely. Assessment & Plan (08/20/2024 11:59 AM CDT): DM related to pancreatitis, on 5-10 units of Lantus at home but not any short- acting insulin. Cont Lantus 5 Units and Lispro 3 Units TID with meals for now. Will not resume Jardiance given type 1 DM physiology and DKA. Monitor sugars closely. Assessment & Plan (08/19/2024 7:19 PM CDT): DM related to pancreatitis, on 5-10 units of Lantus at home but not any short- acting insulin. Cont Lantus 5 Units and Lispro 3 Units TID with meals for now. Will not resume Jardiance given type 1 DM physiology and DKA. Monitor sugars closely. Assessment & Plan (08/18/2024 3:24 PM CDT): DM related to pancreatitis, on 5-10 units of Lantus at home but not any short- acting insulin. Cont Lantus 5 Units and Lispro 3 Units TID with meals for now. Will not resume Jardiance given type 1 DM physiology and DKA. Monitor sugars closely. Assessment & Plan (08/17/2024 1:54 PM CDT): DM related to pancreatitis, on 5-10 units of Lantus at home but not any short- acting insulin. Cont Lantus 5 Units and Lispro 3 Units TID with meals for now. Will not resume Jardiance given type 1 DM physiology and DKA. Monitor sugars closely. Assessment & Plan (08/16/2024 9:34 PM CDT): DM related to pancreatitis, on 5-10 units of Lantus at home but not any short- acting insulin. Cont Lantus 5 Units and Lispro 3 Units TID with meals for now. Will not resume Jardiance given type 1 DM physiology and DKA. Monitor sugars closely. Chronic systolic congestive heart failure 2024 Assessment & Plan (08/21/2024 1:17 PM CDT): On milrinone at home. TTE 08/16: LVEF 36%, with akinetic inferolateral wall, normal RV, normal valves. Consulted heart failure service - recommended stopping milrinone and starting Entresto 12-13 BID with close monitoring of hemodynamics Avoiding Jardiance given T1DM, hx DKA Assessment & Plan (08/20/2024 11:59 AM CDT): On milrinone at home. TTE 08/16: LVEF 36%, with akinetic inferolateral wall, normal RV, normal valves. Consulted heart failure service - recommended stopping milrinone and starting Entresto 12-13 BID with close monitoring of hemodynamics Avoiding Jardiance given T1DM, hx DKA Assessment & Plan (08/19/2024 7:19 PM CDT): On milrinone at home. TTE 08/16: LVEF 36%, with akinetic inferolateral wall, normal RV, normal valves. Consulted heart failure service - recommended stopping milrinone and starting Entresto 12-13 BID with close monitoring of hemodynamics Avoiding Jardiance given T1DM, hx DKA Assessment & Plan (08/18/2024 3:24 PM CDT): On milrinone at home. TTE 08/16: LVEF 36%, with akinetic inferolateral wall, normal RV, normal valves. Consulted heart failure service - recommended stopping milrinone and starting Entresto 12-13 BID with close monitoring of hemodynamics Avoiding Jardiance given T1DM, hx DKA Assessment & Plan (08/17/2024 1:54 PM CDT): On milrinone at home. TTE 08/16: LVEF 36%, with akinetic inferolateral wall, normal RV, normal valves. Consulted heart failure service - recommended stopping milrinone and starting Entresto 12-13 BID with close monitoring of hemodynamics Avoiding Jardiance given T1DM, hx DKA Assessment & Plan (08/16/2024 9:34 PM CDT): On home milrinone. Formal TTE pending. Holding GDMT for now; should avoid Jardiance given type 1 DM physiology and DKA. Heart failure consult. 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 Developed bilateral throbbing toe pain after starting Lyrica - not sure if this is a SE. Quite sensitive, but no redness to suggest gout or cellulitis. 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 Developed bilateral throbbing toe pain after starting Lyrica - not sure if this is a SE. Quite sensitive, but no redness to suggest gout or cellulitis. 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 Developed bilateral throbbing toe pain after starting Lyrica - not sure if this is a SE. Quite sensitive, but no redness to suggest gout or cellulitis. 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 Gabapentin started 08/16; stopped 08/17 due to patient reporting sedation (and minimal benefit in the past) Flexeril unheld since mentation has improved Trial of Lyrica 50 mg 08/18 - developed throbbing bilateral toe pain. Unclear if this is a SE from Lyrica or another issue. 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 Start gabapentin and plan to uptitrate. Alcohol abuse 08/16/2024 Assessment & Plan (08/21/2024 1:17 PM CDT): Recent relapse. Subjective symptoms concerning for EtOH withdrawal, possibly a component of baseline anxiety Klonopin decreased from 2 mg BID -> 1 mg BID on 08/17 due to sedation Increase Klonopin back to 2 mg BID 08/20 Stop PRN Ativan and monitor Cont thiamine/folate. Assessment & Plan (08/20/2024 11:59 AM CDT): Recent relapse. Subjective symptoms concerning for EtOH withdrawal, possibly a component of baseline anxiety Klonopin decreased from 2 mg BID -> 1 mg BID on 08/17 due to sedation Increase Klonopin back to 2 mg BID 08/20 Stop PRN Ativan and monitor Cont thiamine/folate. Assessment & Plan (08/19/2024 7:19 PM CDT): Recent relapse. Subjective symptoms concerning for EtOH withdrawal. On CIWA protocol. Decrease Klonopin to 1 mg BID given marked sedation noted 08/17 Cont thiamine/folate. Assessment & Plan (08/18/2024 3:24 PM CDT): Recent relapse. Subjective symptoms concerning for EtOH withdrawal. On CIWA protocol. Decrease Klonopin to 1 mg BID given marked sedation noted 08/17 Cont thiamine/folate. Assessment & Plan (08/17/2024 2:17 PM CDT): Recent relapse. Subjective symptoms concerning for EtOH withdrawal. On CIWA protocol. Decrease Klonopin to 1 mg BID given marked sedation Cont thiamine/folate. Paused gabapentin given above sedation Assessment & Plan (08/16/2024 9:49 AM CDT): Recent relapse. On CIWA protocol and will schedule Klonopin. Cont thiamine/folate. Start gabapentin and encouraged him to attend AA meetings. Anemia 08/16/2024 Assessment & Plan (08/21/2024 1:17 PM CDT): No bleed, iron studies difficult to interpret in acute illness, but may have a marginal component of LEONARDO. B12 elevated in the setting recent liver insult (EtOH). Transfuse for Hgb < 7 HF team rec IV iron when cleared from infectious standpoint Assessment & Plan (08/20/2024 11:59 AM CDT): No bleed, iron studies difficult to interpret in acute illness, but may have a marginal component of LEONARDO. B12 elevated in the setting recent liver insult (EtOH). Transfuse for Hgb < 7 HF team rec IV iron when cleared from infectious standpoint Assessment & Plan (08/19/2024 7:19 PM CDT): No bleed, iron studies difficult to interpret in acute illness, but may have a marginal component of LEONARDO. B12 elevated in the setting recent liver insult (EtOH). Transfuse for Hgb < 7 HF team rec IV iron when cleared from infectious standpoint Assessment & Plan (08/18/2024 3:24 PM CDT): No bleed, iron studies difficult to interpret in acute illness, but may have a marginal component of LEONARDO. B12 elevated in the setting recent liver insult (EtOH). Transfuse for Hgb < 7 HF team rec IV iron when cleared from infectious standpoint Assessment & Plan (08/17/2024 1:54 PM CDT): No bleed, iron studies difficult to interpret in acute illness, but may have a marginal component of LEONARDO. B12 elevated in the setting recent liver insult (EtOH). Transfuse for Hgb < 7 Assessment & Plan (08/16/2024 9:49 AM CDT): No e/o bleeding. Check B12, folate levels. Check iron studies, ferritin. Moderate protein-calorie malnutrition 08/16/2024 Assessment & Plan (08/21/2024 1:17 PM CDT): RD following Monitoring electrolytes Giving vitamins Assessment & Plan (08/20/2024 11:59 AM CDT): RD following Monitoring electrolytes Giving vitamins Assessment & Plan (08/19/2024 7:19 PM CDT): RD following Monitoring electrolytes Giving vitamins Assessment & Plan (08/18/2024 3:24 PM CDT): RD following Monitoring electrolytes Giving vitamins Assessment & Plan (08/17/2024 1:54 PM CDT): RD following Monitoring electrolytes Giving vitamins Shock 08/15/2024 Assessment & Plan (08/21/2024 1:17 PM CDT): Presented to an OSH in shock, transferred to the ICU here. Shock was likely from hypovolemia in the setting of alcohol abuse, poor po intake and DKA. Pressors quickly weaned off in the ICU and he continues on home milrinone. BCx negative x 48h; dc abx. POCUS in the ICU reportedly with hyperdynamic LV function; formal TTE described elsewhere. Assessment & Plan (08/20/2024 11:59 AM CDT): Presented to an OSH in shock, transferred to the ICU here. Shock was likely from hypovolemia in the setting of alcohol abuse, poor po intake and DKA. Pressors quickly weaned off in the ICU and he continues on home milrinone. BCx negative x 48h; dc abx. POCUS in the ICU reportedly with hyperdynamic LV function; formal TTE described elsewhere. Assessment & Plan (08/19/2024 7:19 PM CDT): Presented to an OSH in shock, transferred to the ICU here. Shock was likely from hypovolemia in the setting of alcohol abuse, poor po intake and DKA. Pressors quickly weaned off in the ICU and he continues on home milrinone. BCx negative x 48h; dc abx. POCUS in the ICU reportedly with hyperdynamic LV function; formal TTE described elsewhere. Assessment & Plan (08/18/2024 3:24 PM CDT): Presented to an OSH in shock, transferred to the ICU here. Shock was likely from hypovolemia in the setting of alcohol abuse, poor po intake and DKA. Pressors quickly weaned off in the ICU and he continues on home milrinone. BCx negative x 48h; dc abx. POCUS in the ICU reportedly with hyperdynamic LV function; formal TTE described elsewhere. Assessment & Plan (08/17/2024 2:17 PM CDT): Presented to an OSH in shock, transferred to the ICU here. Shock was likely from hypovolemia in the setting of alcohol abuse, poor po intake and DKA. Pressors quickly weaned off in the ICU and he continues on home milrinone. BCx negative x 48h; dc abx. POCUS in the ICU reportedly with hyperdynamic LV function; formal TTE described elsewhere. Assessment & Plan (08/16/2024 9:49 AM CDT): Presented to an OSH in shock, transferred to the ICU here. Shock was likely from hypovolemia in the setting of alcohol abuse, poor po intake and DKA. Pressors quickly weaned off in the ICU and he continues on home milrinone. Cont empiric antibiotics for now and follow cultures but will likely d/c antibiotics soon as no signs/symptoms of infection. POCUS in the ICU reportedly with hyperdynamic LV function and formal TTE ordered. Consulted heart failure service. Encounters Date Type Department Care Team Description 08/23/2024 SHOP/CHAP Initial Outreach [facility]NAGEMENT [address] [place] [address] Angelic Melton, RN 08/23/2024 SHOP/CHAP Initial Eligibility Review [facility] [address] [place] [address] Angelic Melton, RN 08/16/2024 [facility] Eligibility Review [facility] Community Health Worker [address] [place] [address] [address] [place] [address] Lindsey Jiang 08/15/2024 6:09 AM CDT - 08/21/2024 2:06 PM CDT Hospital Encounter [facility] [address] [place] [address] Wenceslao Reina MD Freer, MD Aubrey Alfonso Lyndon K., MD Cardiogenic shock (HCC) (Primary Dx) Discharge Disposition: Discharge to home or self care 08/13/2024 Telephone [facility] Transplant Heart [address] [address] Mailstop 9029-346 [place] [address] Ginette Chavez RN 08/11/2024 Telephone [facility] Transplant Heart [address] [facility] [address] Mailstop 9029-606 [place] [address] Reena Ames 08/10/2024 Telephone [facility] Cardiology [address] [facility] [address], [place] [address] Tony Mcelroy MD critical postassium level 08/06/2024 Telephone [facility] Medical [facility] Cardiology [address] [facility] [address] [place] [phone] Tony Mcelroy MD 08/05/2024 Orders Only [facility] Medical [facility] Cardiology [address] [facility] [address] [place] [phone] Kelly Friend NP 08/03/2024 Orders Only [facility] Cardiology [address] [facility] [address] [place] [phone] Wilbert Humphreys MD 07/27/2024 9:45 AM CDT Office Visit [facility] Cardiology [facility] Medical Office Building [address] [place] [phone] Erich Infante MD Chronic combined systolic and diastolic congestive heart failure (HCC) (Primary Dx); Receiving inotropic medication; Alcoholic cardiomyopathy (HCC); Alcohol intoxication in active alcoholic; Marijuana use; High risk medication use 07/27/2024 Telephone [facility] Transplant Heart [address] [facility] [address] Mailop [phone] [place] [address] Ginette Chavez, MADHURI 07/22/2024 Telephone [facility] Transplant Heart [address] [place] [address] [address] Mailstop 9029-372 [place] [address] Reena Ames 07/15/2024 Telephone [facility] Home Care Services [address] [place] [address] Unknown, Notinfile 06/24/2024 Results Follow-Up [facility] [address] 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 Office Visit [facility] Cardiology [address] [facility] Office Building [address] [place] [address] Lurdes Chiang NP Chronic systolic heart failure (HCC) (Primary Dx) 06/23/2024 8:30 AM CNC ROUTER OPERATOR Ancillary Procedure [facility] [address] [place] [address] [address] [place] [phone] Chronic combined systolic and diastolic congestive heart failure (HCC) 06/23/2024 Telephone [facility] Transplant Heart [address] [facility] [address] Mailstop [phone] [place] [address] Royal Lozada 06/23/2024 Telephone [facility] Transplant Heart [address] [facility] [address] Mailstop [phone] [place] [address] John Teixeira RN 06/23/2024 Telephone [facility] Cardiology [address] [place] [address] [address] [place] [address] Lurdes Chiang NP from Last [...] Tobacco: Former Tobacco Cessation:Counseling Given: Not Answered [facility] Utilities Answer Date Recorded In the past 12 months has e [employer], oil, or water [employer] threatened to shut off services in your home? No 08/19/2024 Social Connection and Isolat ion Panel [NHANES] Answer Date Recorded In a typical week, how many times do you talk on the phone with family, friends, or neighbors? More than three times a week 08/19/2024 How often do you get togethe r with friends or relatives? Three times a week 08/19/2024 How often do you attend chur ch or sikh services? Never 08/19/2024 Do you belong to any clubs o r organizations such as mormon groups, unions, fraternal or athletic groups, or school groups? No 08/19/2024 How often do you attend meet ings of the clubs or organizations you belong to? Never 08/19/2024 Are you , , di vorced, , never , or living with a partner? Never 08/19/2024 Overall Financial Resource Strain (CARDIA) Answe r Date Recorded How hard is it for you to pa y for the very basics like food, housing, medical care, and heating? Not very hard 08/19/2024 PHQ-2 Answer Date Recorded PHQ-2 Total Score 0 08/19/2024 Hunger Vital Sign Answer Date Recorded Within the past 12 months, y ou worried that your food would run out before you got the money to buy more. Never true 08/20/19 25 Within the past 12 months, t he food you bought just didn't last and you didn't have money to get more. Never true 08/19/2024 PRAPARE - Transportation Answer Date Re corded In the past 12 months, has l ack of transportation kept you from medical appointments or from getting medications? Yes 08/03 In the past 12 months, has l ack of transportation kept you from meetings, work, or from getting things needed for daily living? No 08/19/2024 Housing Stability Vital Sign Answer Bryan e Recorded In the last 12 months, was t here a time when you were not able to pay the mortgage or rent on time? No 08/19/2024 In the past 12 months, how m any times have you moved where you were living? 1 08/19/2024 At any time in the past 12 m [facility], were you homeless or living in a [place] facility (including now)? No 08/19/2024 Personal Safety Answer Date Recorded Have you ever been in or are you currently in a harmful physical or emotional relationship or is someone making you feel afraid or unsafe? 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 Gender Identity Not on file Sexual Orientation Not on file Obstetrics History Last Filed Vital Signs Vital Sign Reading Time Taken Comments Blood Pressure 92/57 08/21/2024 7:49 AM CDT Pulse 96 08/21/2024 7:49 AM CDT Temperature 36.6 C (97.9 F) 08/21/2024 7:49 AM CDT Respiratory Rate 18 08/21/2024 7:49 AM CDT Oxygen Saturation 99% 08/21/2024 7:49 AM CDT Inhaled Oxygen Concentration - - Weight 62.6 kg (138 lb) 08/18/2024 4:19 AM CDT Height 182.9 cm (6') 08/15/2024 10:58 AM CDT Body Mass Index 18.72 08/15/2024 10:58 AM CDT Plan of Treatment Health Maintenance Due Date Last Done Comments Albumin Creatinine Ratio, Urine 1989 Foot Exam 1989 Dilated Eye Exam 1999 Varicella Vaccines (1 of 2 - 13+ 2-dose series) 2002 Hepatitis B Screening 2007 Regular Well Visit/Exam 18-64 2007 Pneumococcal vaccine <65 (1 of 2 - PCV) 2008 Covid-19 Vaccine (2 - season) 2024 07/06/2021 Influenza Vaccine (Season Ended) 2025 Hemoglobin A1C 02/14/2025 08/15/2024, 03/0 07/2024, 04/16/2024, Additional history exists Lipid Panel 04/16/2025 04/16/2024, 04/04, 10/26/2023, Additional history exists Depression Screening 08/15/2025 08/15/2024 TSH Level 08/15/2025 08/15/2024, 08/03, 04/16/2024, Additional history exists eGFR 08/21/2025 08/21/2024, 08/03, 08/19/2024, Additional history exists DTaP/Tdap/Td Vaccine (2 - Td or Tdap) 11/13/2033 11/14/2023 Hepatitis C Screening Completed 08/18/2024 HPV Vaccines Aged Out No longer eligi ble based on patient's age to complete this topic Procedures Procedure Name Priority Date/Time Associated Diagnosis Comments POCT GLUCOSE DEVICE Routine 08/21/2024 8 :12 AM CDT EGFR Routine 08/21/2024 5:01 AM CDT PHOSPHORUS Routine 08/21/2024 5:01 AM CDT BASIC METABOLIC PANEL Routine 08/21/2024 5:01 AM CDT POCT GLUCOSE DEVICE Routine 08/20/2024 8 :03 PM CDT POCT GLUCOSE DEVICE Routine 08/20/2024 4 :52 PM CDT POCT GLUCOSE DEVICE Routine 08/20/2024 1 2:27 PM CDT POCT GLUCOSE DEVICE Routine 08/20/2024 8 :27 AM CDT PHOSPHORUS Routine 08/20/2024 4:05 AM CDT EGFR Routine 08/20/2024 4:05 AM CDT BASIC METABOLIC PANEL Routine 08/20/2024 4:05 AM CDT POCT GLUCOSE DEVICE Routine 08/19/2024 7 :41 PM CDT POCT GLUCOSE DEVICE Routine 08/19/2024 5 :27 PM CDT POCT GLUCOSE DEVICE Routine 08/19/2024 3 :56 PM CDT POCT GLUCOSE DEVICE Routine 08/19/2024 1 1:47 AM CDT POCT GLUCOSE DEVICE Routine 08/19/2024 8 :13 AM CDT POCT GLUCOSE DEVICE Routine 08/19/2024 5 :31 AM CDT EGFR Routine 08/19/2024 5:25 AM CDT BASIC METABOLIC PANEL Routine 08/19/2024 5:25 AM CDT POCT GLUCOSE DEVICE Routine 08/18/2024 8 :45 PM CDT POCT GLUCOSE DEVICE Routine 08/18/2024 7 :52 PM CDT POCT GLUCOSE DEVICE Routine 08/18/2024 7 :31 PM CDT POCT GLUCOSE DEVICE Routine 08/18/2024 4 :42 PM CDT POCT GLUCOSE DEVICE Routine 08/18/2024 1 2:09 PM CDT POCT GLUCOSE DEVICE Routine 08/18/2024 8 :10 AM CDT EGFR Routine 08/18/2024 6:19 AM CDT BASIC METABOLIC PANEL Routine 08/18/2024 6:19 AM CDT CREATINE KINASE (CK), TOTAL Routine 08/18/2024 6:19 AM CDT PHOSPHORUS Routine 08/18/2024 6:19 AM CDT RPR Routine 08/18/2024 6:19 AM CDT HEPATITIS C ANTIBODY Routine 08/18/2024 6:19 AM CDT HEPATITIS B SURFACE ANTIGEN Routine 08/18/2024 6:19 AM CDT HIV 1/2 ANTIBODY PLUS P24 ANTIGEN Routine 08/18/2024 6:19 AM CDT POCT GLUCOSE DEVICE Routine 08/17/2024 7 :55 PM CDT POCT GLUCOSE DEVICE Routine 08/17/2024 5 :04 PM CDT POCT GLUCOSE DEVICE Routine 08/17/2024 1 1:11 AM CDT LACTATE Timed 08/17/2024 10:58 AM CDT POCT GLUCOSE DEVICE Routine 08/17/2024 7 :38 AM CDT EGFR Routine 08/17/2024 6:06 AM CDT IRON PROFILE W/ IBC Routine 08/17/2024 6 :06 AM CDT FERRITIN Routine 08/17/2024 6:06 AM CDT VITAMIN B12 Routine 08/17/2024 6:06 AM CDT FOLATE Routine 08/17/2024 6:06 AM CDT MAGNESIUM Routine 08/17/2024 6:06 AM CDT BASIC METABOLIC PANEL Routine 08/17/2024 6:06 AM CDT CBC WITHOUT DIFFERENTIAL Routine 08/17/2024 6:06 AM CDT PHOSPHORUS Routine 08/17/2024 6:06 AM CDT POCT GLUCOSE DEVICE Routine 08/16/2024 9 :19 PM CDT POCT GLUCOSE DEVICE Routine 08/16/2024 9 :10 PM CDT LACTATE Timed 08/16/2024 7:03 PM CDT POCT GLUCOSE DEVICE Routine 08/16/2024 5 :13 PM CDT LACTATE Routine 08/16/2024 4:56 PM CDT POCT GLUCOSE DEVICE Routine 08/16/2024 1 1:23 AM CDT TRANSTHORACIC ECHO (TTE) COMPLETE W DOPPLER/CF W CONTRAST ED Urgent/IP Urgent 08/16/2024 11:21 AM CDT TROPONIN I HIGH-SENSITIVITY Routine 08/16/2024 11:14 AM CDT POCT GLUCOSE DEVICE Routine 08/16/2024 9 :06 AM CDT EGFR Timed 08/16/2024 9:01 AM CDT BASIC METABOLIC PANEL Timed 08/16/2024 9:01 AM CDT CBC WITHOUT DIFFERENTIAL Timed 08/16/2024 9:01 AM CDT PHOSPHORUS Routine 08/16/2024 5:40 AM CDT CALCIUM, IONIZED Routine 08/16/2024 5:40 AM CDT HEPATIC FUNCTION PANEL Routine 08/16/2024 5:40 AM CDT POCT GLUCOSE DEVICE Routine 08/16/2024 3 :49 AM CDT POCT GLUCOSE DEVICE Routine 08/15/2024 1 1:30 PM CDT OXYHEMOGLOBIN, PULMONARY ARTERY Timed 08/15/2024 11:30 PM CDT HEMOGLOBIN TOTAL, PULMONARY ARTERY Timed 08/15/2024 11:30 PM CDT LACTATE, WHOLE BLOOD Timed 08/15/2024 11:30 PM CDT MAGNESIUM Timed 08/15/2024 9:17 PM CDT EGFR Timed 08/15/2024 9:17 PM CDT BASIC METABOLIC PANEL Timed 08/15/2024 9:17 PM CDT POCT GLUCOSE DEVICE Routine 08/15/2024 9 :16 PM CDT POCT GLUCOSE DEVICE Routine 08/15/2024 6 :29 PM CDT POCT GLUCOSE DEVICE Routine 08/15/2024 5 :17 PM CDT POCT GLUCOSE DEVICE Routine 08/15/2024 4 :21 PM CDT PRO B-TYPE NATRIURETIC PEPTIDE Timed 08/15/2024 3:22 PM CDT EGFR Timed 08/15/2024 3:22 PM CDT PHOSPHORUS Timed 08/15/2024 3:22 PM CDT MAGNESIUM Timed 08/15/2024 3:22 PM CDT BASIC METABOLIC PANEL Timed 08/15/2024 3:22 PM CDT LACTATE, WHOLE BLOOD Timed 08/15/2024 3:22 PM CDT HEMOGLOBIN TOTAL, PULMONARY ARTERY Timed 08/15/2024 3:22 PM CDT OXYHEMOGLOBIN, CENTRAL VENOUS Timed 08/15/2024 3:22 PM CDT POCT GLUCOSE DEVICE Routine 08/15/2024 3 :20 PM CDT POCT GLUCOSE DEVICE Routine 08/15/2024 2 :40 PM CDT XR CHEST 1 VIEW ED Urgent/IP Urgent 08/15/2024 2:40 PM CDT POCT GLUCOSE DEVICE Routine 08/15/2024 2 :05 PM CDT BLOOD GAS, ARTERIAL STAT 08/15/2024 1 :51 PM CDT POCT GLUCOSE DEVICE Routine 08/15/2024 1 :03 PM CDT XR ABDOMEN AP 1 VIEW ED Urgent/IP Urgent 08/15/2024 12:36 PM CDT XR CHEST 1 VIEW IP Routine 08/15/2024 12:35 PM CDT EGFR Timed 08/15/2024 12:32 PM CDT HEMOGLOBIN TOTAL, PULMONARY ARTERY Routine 08/15/2024 12:32 PM CDT OXYHEMOGLOBIN, PULMONARY ARTERY STAT 08/15/2024 12:32 PM CDT PHOSPHORUS Timed 08/15/2024 12:32 PM CDT MAGNESIUM Timed 08/15/2024 12:32 PM CDT BASIC METABOLIC PANEL Timed 08/15/2024 12:32 PM CDT TROPONIN I HIGH-SENSITIVITY 6-HOUR Timed 08/15/2024 12:32 PM CDT CALCIUM, IONIZED Timed 08/15/2024 12:3 2 PM CDT POCT GLUCOSE DEVICE Routine 08/15/2024 1 1:57 AM CDT LACTATE, WHOLE BLOOD Timed 08/15/2024 10:58 AM CDT HEMOGLOBIN TOTAL, PULMONARY ARTERY Timed 08/15/2024 10:58 AM CDT TROPONIN I HIGH-SENSITIVITY 4-HOUR Timed 08/15/2024 10:58 AM CDT OXYHEMOGLOBIN, CENTRAL VENOUS Timed 08/15/2024 10:58 AM CDT POCT GLUCOSE DEVICE Routine 08/15/2024 1 0:51 AM CDT IL INSJ NON-TUNNELED CENTRAL VENOUS CATH AGE 4 YR/> Routine 08/15/2024 9:58 AM CDT Cardiogenic shock (HCC) POC BLOOD GAS AND CHEMISTRIES, ARTERIAL Routine 08/15/2024 9:57 AM CDT URINALYSIS, MICROSCOPIC ONLY Routine 08/15/2024 9:56 AM CDT URINALYSIS AND REFLEX TO MICROSCOPIC AND CULTURE Routine 08/15/2024 9:56 AM CDT IL ARTL CATHJ/CANNULJ MNTR/TRANSFUSION SPX PRQ Routine 08/15/2024 9:53 AM CDT Cardiogenic shock (HCC) POCT GLUCOSE DEVICE Routine 08/15/2024 9 :26 AM CDT CRITICAL RESULT CALLBACK CHEMISTRY Routine 08/15/2024 8:38 AM CDT EGFR Routine 08/15/2024 8:38 AM CDT COMPREHENSIVE METABOLIC PANEL Routine 08/15/2024 8:38 AM CDT CRITICAL RESULT CALLBACK CARDIO CHEM Timed 08/15/2024 8:29 AM CDT CRITICAL RESULT CALLBACK CHEMISTRY Routine 08/15/2024 8:29 AM CDT LACTATE, WHOLE BLOOD Routine 08/15/2024 8:29 AM CDT TROPONIN I HIGH-SENSITIVITY 2-HOUR Timed 08/15/2024 8:29 AM CDT OXYHEMOGLOBIN, CENTRAL VENOUS Timed 08/15/2024 8:29 AM CDT BETA-HYDROXYBUTYRATE STAT 08/15/2024 7:42 AM CDT BLOOD CULTURE STAT 08/15/2024 7:41 AM CDT BLOOD CULTURE STAT 08/15/2024 7:41 AM CDT POC BLOOD GAS AND CHEMISTRIES, ARTERIAL Routine 08/15/2024 7:38 AM CDT APTT STAT 08/15/2024 6:50 AM CDT PROTIME-INR STAT 08/15/2024 6:50 AM CDT B CHECK SAMPLE STAT 08/15/2024 6:50 AM CDT CALCIUM, IONIZED STAT 08/15/2024 6:50 AM CDT TYPE AND SCREEN STAT 08/15/2024 6:29 AM CDT HEMOGLOBIN A1C STAT 08/15/2024 6:26 AM CDT CRITICAL RESULT CALLBACK CHEMISTRY STAT 08/15/2024 6:26 AM CDT EGFR STAT 08/15/2024 6:26 AM CDT PHOSPHORUS STAT 08/15/2024 6:26 AM CDT ETHANOL STAT 08/15/2024 6:26 AM CDT LIPASE STAT 08/15/2024 6:26 AM CDT TSH STAT 08/15/2024 6:26 AM CDT CRITICAL RESULT CALLBACK CHEMISTRY STAT 08/15/2024 6:26 AM CDT LACTATE, WHOLE BLOOD STAT 08/15/2024 6:26 AM CDT DIFFERENTIAL AUTO STAT 08/15/2024 6:2 6 AM CDT CBC WITH AUTO DIFFERENTIAL STAT 08/15/2024 6:26 AM CDT TROPONIN I HIGH-SENSITIVITY SERIES (BASELINE, 2HR, 4HR, 6HR) STAT 08/15/2024 6:26 AM CDT BLOOD GAS, VENOUS STAT 08/15/2024 6:2 6 AM CDT MAGNESIUM STAT 08/15/2024 6:26 AM CDT COMPREHENSIVE METABOLIC PANEL STAT 08/15/2024 6:26 AM CDT POC BLOOD GAS AND CHEMISTRIES, VENOUS Routine 08/15/2024 6:21 AM CDT CARDIOLOGY DOCUMENT SCAN Routine 07/31/2024 4:46 PM [...] DOPPLER/CF W CONTRAST Routine 06/23/2024 9:34 AM 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 [place] [address] * eGFR (08/21/2024 5:01 AM CDT) eGFR >90 >=60 mL/min/1. 73 m2 Comment: Interpretive Data Reference Interval Normal >/= 90 mL/min/1.73m2 Mildly decreased* 60 - 89 mL/min/1.73m2 Mildly to moderately decreased 45 - 59 mL/min/1.73m2 Moderately to severely decreased 30 - 44 mL/min/1.73m2 Severely decreased 15 - 29 mL/min/1.73m2 Kidney Failure < 15 mL/min/1.73m2 *Relative to young adult level Estimated glomerular filtration rate is determined by the 2020 CKD-EPI equation recommended by the National Kidney Foundation (A Unifying Approach to GFR Estimation: Recommendations of the NKF-ASK Task Force on Reassessing the Inclusion of Race in Diagnosing Kidney Disease, JASN 2020). The CKD-EPI equation should not be used for patients with unstable renal function and has not been validated in children and those over 70. Current interpretive data was last reviewed 2021. Blood 08/21/2024 5:01 AM CDT 08/21/2024 6:09 AM CDT Jesse Burgos MD LAB BLOOD ORDERABLES Final Resu lt Performing Organization Address City/[facility]/ZIP Co de Phone Number [facility] [place] [address] * Phosphorus (08/21/2024 5:01 AM CDT) Pathologist [facility] Phosphorus, pl 3.4 2.3 - 4.5 mg/dL Blood 08/21/2024 5:01 AM CDT 08/21/2024 6:09 AM CDT Jesse Burgos MD LAB BLOOD ORDERABLES Final Resu lt Performing Organization Address [facility] de Phone Number [facility] [place] [place] [address] * (ABNORMAL) Basic metabolic panel (08/21/2024 5:01 AM CDT) Sodium 138 135 - 145 mmol/L Potassium, pl 4.4 3.3 - 4.9 mmol/L [facility] Chloride 95(L) 97 - 110 mmol/L [facility] CO2 33(H) 22 - 32 mmol/L [facility] Anion gap 10 2 - 15 mmol/L [facility] BUN 25 6 - 25 mg/dL [facility] Creatinine 0.74(L) 0.80 - 1.30 mg/dL [facility] Glucose 233(H) 70 - 199 mg/dL [facility] Comment: Interpretive Data Fasting glucose >/= 126 mg/dl is diagnostic for diabetes. Fasting is defined as no caloric intake for at least 8 hours. Fasting glucose between 100 mg/dl to 125 mg/dl is diagnostic of prediabetes. In a patient with classic symptoms of hyperglycemia or hyperglycemic crisis, a random glucose >/= 200 mg/dl is diagnostic for diabetes. In the absence of unequivocal hyperglycemia, results should be confirmed by repeat testing. The classification and Diagnosis of Diabetes Diabetes Care 2021; 46: S19-S40. Current interpretive data was last revised 2022. Calcium 10.0 8.5 - 10.3 mg/dL [facility] Blood 08/21/2024 5:01 AM CDT 08/21/2024 6:09 AM CDT Jesse Burgos MD LAB BLOOD ORDERABLES Final Resu lt Performing Organization Address [facility] Co de Phone Number [facility] [place] [employer] [place] [address] * POCT glucose (08/20/2024 8:03 PM CDT) Glucose, POC 83 70 - 199 mg/dL Blood 08/20/2024 8:03 PM CDT 08/20/2024 8:03 PM CDT Jesse Burgos MD LAB POCT ORDERABLES - DEVICE Fi nal Result Performing Organization Address [facility] Co de Phone Number [facility] [place] [place] [address] * POCT glucose (08/20/2024 4:52 PM CDT) Glucose, POC 154 70 - 199 mg/dL Blood 08/20/2024 4:52 PM CDT 08/20/2024 4:52 PM CDT Jesse Burgos MD LAB POCT ORDERABLES - DEVICE Fi nal Result Performing Organization Address [facility] Co de Phone Number [facility] [place] [place] [address] * (ABNORMAL) POCT glucose (08/20/2024 12:27 PM CDT) Glucose, POC 210(H) 70 - 199 mg/dL Blood 08/20/2024 12:2 7 PM CDT 08/20/2024 12:27 PM CDT Jesse Burgos MD LAB POCT ORDERABLES - DEVICE Fi nal Result Performing Organization Address City/[facility] Co de Phone Number [facility] [place] [address] * POCT glucose (08/20/2024 8:27 AM CDT) Glucose, POC 95 70 - 199 mg/dL Blood 08/20/2024 8:27 AM CDT 08/20/2024 8:27 AM CDT Jesse Burgos MD LAB POCT ORDERABLES - DEVICE Fi nal Result Performing Organization Address [facility] de Phone Number [facility] [place] [place] [address] * eGFR (08/20/2024 4:05 AM CDT) eGFR >90 >=60 mL/min/1. 73 m2 Comment: Interpretive Data Reference Interval Normal >/= 90 mL/min/1.73m2 Mildly decreased* 60 - 89 mL/min/1.73m2 Mildly to moderately decreased 45 - 59 mL/min/1.73m2 Moderately to severely decreased 30 - 44 mL/min/1.73m2 Severely decreased 15 - 29 mL/min/1.73m2 Kidney Failure < 15 mL/min/1.73m2 *Relative to young adult level Estimated glomerular filtration rate is determined by the 2020 CKD-EPI equation recommended by the National Kidney Foundation (A Unifying Approach to GFR Estimation: Recommendations of the NKF-ASK Task Force on Reassessing the Inclusion of Race in Diagnosing Kidney Disease, JASN 2020). The CKD-EPI equation should not be used for patients with unstable renal function and has not been validated in children and those over 70. Current interpretive data was last reviewed 2021. Blood 08/20/2024 4:05 AM CDT 08/20/2024 4:49 AM CDT Jesse Burgos MD LAB BLOOD ORDERABLES Final Resu lt Performing Organization Address City/[facility]/ZIP Co de Phone Number [facility] [place] [place] [address] * Phosphorus (08/20/2024 4:05 AM CDT) Phosphorus, pl 4.4 2.3 - 4.5 mg/dL Blood 08/20/2024 4:05 AM CDT 08/20/2024 4:49 AM CDT Jesse Burgos MD LAB BLOOD ORDERABLES Final Resu lt Performing Organization Address [facility] de Phone Number [facility] [place] [employer] [place] [address] * (ABNORMAL) Basic metabolic panel (08/20/2024 4:05 AM CDT) Sodium 139 135 - 145 mmol/L Potassium, pl 4.3 3.3 - 4.9 mmol/L [facility] Chloride 96(L) 97 - 110 mmol/L [facility] CO2 36(H) 22 - 32 mmol/L [facility] Anion gap 7 2 - 15 mmol/L [facility] BUN 22 6 - 25 mg/dL [facility] Creatinine 0.67(L) 0.80 - 1.30 mg/dL [facility] Glucose 115 70 - 199 mg/dL [facility] Comment: Interpretive Data Fasting glucose >/= 126 mg/dl is diagnostic for diabetes. Fasting is defined as no caloric intake for at least 8 hours. Fasting glucose between 100 mg/dl to 125 mg/dl is diagnostic of prediabetes. In a patient with classic symptoms of hyperglycemia or hyperglycemic crisis, a random glucose >/= 200 mg/dl is diagnostic for diabetes. In the absence of unequivocal hyperglycemia, results should be confirmed by repeat testing. The classification and Diagnosis of Diabetes Diabetes Care 2021; 46: S19-S40. Current interpretive data was last revised 2022. Calcium 10.0 8.5 - 10.3 mg/dL [facility] Blood 08/20/2024 4:05 AM CDT 08/20/2024 4:49 AM CDT Jesse Burgos MD LAB BLOOD ORDERABLES Final Resu lt Performing Organization Address City/[facility] Co de Phone Number [facility] [place] [address] * POCT glucose (08/19/2024 7:41 PM CDT) Glucose, POC 146 70 - 199 mg/dL Blood 08/19/2024 7:41 PM CDT 08/19/2024 7:41 PM CDT Jesse Burgos MD LAB POCT ORDERABLES - DEVICE Fi nal Result Performing Organization Address [facility] Co de Phone Number [facility] [place] [place] [address] * POCT glucose (08/19/2024 5:27 PM CDT) Glucose, POC 175 70 - 199 mg/dL Blood 08/19/2024 5:27 PM CDT 08/19/2024 5:27 PM CDT Jesse Burgos MD LAB POCT ORDERABLES - DEVICE Fi nal Result Performing Organization Address City/[facility] Co de Phone Number [facility] [place] [address] * POCT glucose (08/19/2024 3:56 PM CDT) Glucose, POC 92 70 - 199 mg/dL Blood 08/19/2024 3:56 PM CDT 08/19/2024 3:56 PM CDT Jesse Burgos MD LAB POCT ORDERABLES - DEVICE Fi nal Result Performing Organization Address [facility] Co de Phone Number [facility] [place] [employer] [place] [address] * POCT glucose (08/19/2024 11:47 AM CDT) Glucose, POC 162 70 - 199 mg/dL Blood 08/19/2024 11:4 7 AM CDT 08/19/2024 11:47 AM CDT Jesse Burgos MD LAB POCT ORDERABLES - DEVICE Fi nal Result Performing Organization Address [facility] Co de Phone Number [facility] [place] [employer] [place] [address] * POCT glucose (08/19/2024 8:13 AM CDT) Glucose, POC 114 70 - 199 mg/dL Blood 08/19/2024 8:13 AM CDT 08/19/2024 8:13 AM CDT Jesse Burgos MD LAB POCT ORDERABLES - DEVICE Fi nal Result Performing Organization Address City/[facility] Co de Phone Number [facility] [place] [employer] [place] [address] * POCT glucose (08/19/2024 5:31 AM CDT) Glucose, POC 121 70 - 199 mg/dL Blood 08/19/2024 5:31 AM CDT 08/19/2024 5:31 AM CDT us Jesse Burgos MD LAB POCT ORDERABLES - DEVICE Fi nal Result Performing Organization Address [facility] de Phone Number [facility] [place] [address] * eGFR (08/19/2024 5:25 AM CDT) eGFR >90 >=60 mL/min/1. 73 m2 Comment: Interpretive Data Reference Interval Normal >/= 90 mL/min/1.73m2 Mildly decreased* 60 - 89 mL/min/1.73m2 Mildly to moderately decreased 45 - 59 mL/min/1.73m2 Moderately to severely decreased 30 - 44 mL/min/1.73m2 Severely decreased 15 - 29 mL/min/1.73m2 Kidney Failure < 15 mL/min/1.73m2 *Relative to young adult level Estimated glomerular filtration rate is determined by the 2020 CKD-EPI equation recommended by the National Kidney Foundation (A Unifying Approach to GFR Estimation: Recommendations of the NKF-ASK Task Force on Reassessing the Inclusion of Race in Diagnosing Kidney Disease, JASN 2020). The CKD-EPI equation should not be used for patients with unstable renal function and has not been validated in children and those over 70. Current interpretive data was last reviewed 2021. Blood 08/19/2024 5:25 AM CDT 08/19/2024 5:56 AM CDT us Jesse Burgos MD LAB BLOOD ORDERABLES Final Resu lt Performing Organization Address [facility] Co de Phone Number [facility] [place] [address] * (ABNORMAL) Basic metabolic panel (08/19/2024 5:25 AM CDT) Sodium 138 135 - 145 mmol/L Potassium, pl 4.3 3.3 - 4.9 mmol/L [facility] Chloride 94(L) 97 - 110 mmol/L [facility] CO2 36(H) 22 - 32 mmol/L [facility] Anion gap 8 2 - 15 mmol/L [facility] BUN 24 6 - 25 mg/dL [facility] Creatinine 0.66(L) 0.80 - 1.30 mg/dL [facility] Glucose 104 70 - 199 mg/dL [facility] Comment: Interpretive Data Fasting glucose >/= 126 mg/dl is diagnostic for diabetes. Fasting is defined as no caloric intake for at least 8 hours. Fasting glucose between 100 mg/dl to 125 mg/dl is diagnostic of prediabetes. In a patient with classic symptoms of hyperglycemia or hyperglycemic crisis, a random glucose >/= 200 mg/dl is diagnostic for diabetes. In the absence of unequivocal hyperglycemia, results should be confirmed by repeat testing. The classification and Diagnosis of Diabetes Diabetes Care 2021; 46: S19-S40. Current interpretive data was last revised 2022. Calcium 10.4(H) 8.5 - 10.3 mg/dL [facility] Blood 08/19/2024 5:25 AM CDT 08/19/2024 5:56 AM CDT us Jesse Burgos MD LAB BLOOD ORDERABLES Final Resu lt Performing Organization Address City/[facility]/ZIP Co de Phone Number [facility] [place] [place] [address] * POCT glucose (08/18/2024 8:45 PM CDT) Glucose, POC 127 70 - 199 mg/dL Blood 08/18/2024 8:45 PM CDT 08/18/2024 8:45 PM CDT us Jesse Burgos MD LAB POCT ORDERABLES - DEVICE Fi nal Result Performing Organization Address City/[facility]/ZIP Co de Phone Number [facility] [place] [address] * POCT glucose (08/18/2024 7:52 PM CDT) Glucose, POC 79 70 - 199 mg/dL Blood 08/18/2024 7:52 PM CDT 08/18/2024 7:52 PM CDT Jesse Burgos MD LAB POCT ORDERABLES - DEVICE Fi nal Result Performing Organization Address City/[facility] Co de Phone Number [facility] [place] [employer] [place] [address] * (ABNORMAL) POCT glucose (08/18/2024 7:31 PM CDT) Glucose, POC 42(C) 70 - 199 mg/dL Comment:Glu2: RN/MD Notified Glucose comment 1 Glu2: RN/MD Notified [facility] Blood 08/18/2024 7:31 PM CDT 08/18/2024 7:31 PM CDT Jesse Burgos MD LAB POCT ORDERABLES - DEVICE Fi nal Result Performing Organization Address [facility] Co de Phone Number [facility] [place] [employer] [place] [address] * POCT glucose (08/18/2024 4:42 PM CDT) Glucose, POC 122 70 - 199 mg/dL Blood 08/18/2024 4:42 PM CDT 08/18/2024 4:42 PM CDT Jesse Burgos MD LAB POCT ORDERABLES - DEVICE Fi nal Result Performing Organization Address City/[facility] [place] [address] * (ABNORMAL) POCT glucose (08/18/2024 12:09 PM CDT) Glucose, POC 202(H) 70 - 199 mg/dL Blood 08/18/2024 12:0 9 PM CDT 08/18/2024 12:09 PM CDT Jesse Burgos MD LAB POCT ORDERABLES - DEVICE Fi nal Result Performing Organization Address City/[facility] Co de Phone Number [facility] [place] [address] * POCT glucose (08/18/2024 8:10 AM CDT) Glucose, POC 82 70 - 199 mg/dL Blood 08/18/2024 8:10 AM CDT 08/18/2024 8:10 AM CDT Jesse Burgos MD LAB POCT ORDERABLES - DEVICE Fi nal Result Performing Organization Address [facility] de Phone Number [facility] [place] [address] * eGFR (08/18/2024 6:19 AM CDT) eGFR >90 >=60 mL/min/1. 73 m2 Comment: Interpretive Data Reference Interval Normal >/= 90 mL/min/1.73m2 Mildly decreased* 60 - 89 mL/min/1.73m2 Mildly to moderately decreased 45 - 59 mL/min/1.73m2 Moderately to severely decreased 30 - 44 mL/min/1.73m2 Severely decreased 15 - 29 mL/min/1.73m2 Kidney Failure < 15 mL/min/1.73m2 *Relative to young adult level Estimated glomerular filtration rate is determined by the 2020 CKD-EPI equation recommended by the National Kidney Foundation (A Unifying Approach to GFR Estimation: Recommendations of the NKF-ASK Task Force on Reassessing the Inclusion of Race in Diagnosing Kidney Disease, JASN 2020). The CKD-EPI equation should not be used for patients with unstable renal function and has not been validated in children and those over 70. Current interpretive data was last reviewed 2021. Blood 08/18/2024 6:19 AM CDT 08/18/2024 6:44 AM CDT Jesse Burgos MD LAB BLOOD ORDERABLES Final Resu lt Performing Organization Address City/[facility] Co de Phone Number [facility] [place] [place] [address] * HIV 1/2 Antibody plus p24 Antigen Blood (08/18/2024 6:19 AM CDT) Pathologist [facility] HIV 1/2 ab + p24 ag Nonreactive Nonreactive Comment:Nonreactive for HIV- 1 antigen and HIV-1/HIV-2 antibodies. No laboratory evidence of HIV infection. If acute HIV infection is suspected, consider testing for HIV-1 RNA. Current interpretive data was last revised on 22. Blood 08/18/2024 6:19 AM CDT 08/18/2024 6:44 AM CDT us Jesse Burgos MD LAB MICROBIOLOGY - GENERAL ORDE RABLES Final Result Performing Organization Address [facility] [place] [address] * Hepatitis C antibody Blood (08/18/2024 6:19 AM CDT) [facility] Hep C Ab Nonreactive Nonreactive Comment:Antibodies to HCV no t detected. Does NOT exclude the possibility of recent exposure to HCV. Current interpretive data was last revised on 22 Blood 08/18/2024 6:19 AM CDT 08/18/2024 6:44 AM CDT Jesse Burgos MD LAB MICROBIOLOGY - GENERAL ORDJoshua BOJORQUEZ Final Result Performing Organization Address [facility] Co de Phone Number [facility] [place] [address] * RPR Blood (08/18/2024 6:19 AM CDT) Pathologist [facility] RPR Nonreactive Nonreactive Blood 08/18/2024 6:19 AM CDT 08/18/2024 6:44 AM CDT us Jesse Burgos MD LAB MICROBIOLOGY - GENERAL ORDE RABLES Final Result Performing Organization Address [facility] de Phone Number [facility] [place] [address] * Hepatitis B Surface Antigen Blood (08/18/2024 6:19 AM CDT) HepBsAg Nonreactive Nonreactive Blood 08/18/2024 6:19 AM CDT 08/18/2024 6:44 AM CDT us Jesse Burgos MD LAB MICROBIOLOGY - GENERAL ORDJoshua BOJORQUEZ Final Result Performing Organization Address [facility] Phone Number [facility] [place] [address] * Phosphorus (08/18/2024 6:19 AM CDT) Pathologist [facility] Phosphorus, pl 2.9 2.3 - 4.5 mg/dL Blood 08/18/2024 6:19 AM CDT 08/18/2024 6:44 AM CDT us Wenceslao Reina MD LAB BLOOD ORDERABLES Final R esult Performing Organization Address [facility] Co de Phone Number [facility] [place] [address] * Creatine kinase (CK), total (08/18/2024 6:19 AM CDT) CK 207 40 - 300 Units/L Blood 08/18/2024 6:19 AM CDT 08/18/2024 6:44 AM CDT us Jesse Burgos MD LAB BLOOD ORDERABLES Final Resu lt [facility] Department [place] [address] * (ABNORMAL) Basic metabolic panel (08/18/2024 6:19 AM CDT) Sodium 137 135 - 145 mmol/L Potassium, pl 3.9 3.3 - 4.9 mmol/L [facility] Chloride 93(L) 97 - 110 mmol/L [facility] CO2 36(H) 22 - 32 mmol/L [facility] Anion gap 8 2 - 15 mmol/L [facility] BUN 21 6 - 25 mg/dL [facility] Creatinine 0.59(L) 0.80 - 1.30 mg/dL [facility] Glucose 96 70 - 199 mg/dL [facility] Comment: Interpretive Data Fasting glucose >/= 126 mg/dl is diagnostic for diabetes. Fasting is defined as no caloric intake for at least 8 hours. Fasting glucose between 100 mg/dl to 125 mg/dl is diagnostic of prediabetes. In a patient with classic symptoms of hyperglycemia or hyperglycemic crisis, a random glucose >/= 200 mg/dl is diagnostic for diabetes. In the absence of unequivocal hyperglycemia, results should be confirmed by repeat testing. The classification and Diagnosis of Diabetes Diabetes Care 202; 46: S19-S40. Current interpretive data was last revised 2022. Calcium 9.4 8.5 - 10.3 mg/dL [facility] Blood 08/18/2024 6:19 AM CDT 08/18/2024 6:44 AM CDT us Jesse Burgos MD LAB BLOOD ORDERABLES Final Resu lt Performing Organization Address City/[facility]/ZIP Co de Phone Number [facility] Department [place] [address] * POCT glucose (08/17/2024 7:55 PM CDT) Glucose, POC 172 70 - 199 mg/dL Blood 08/17/2024 7:55 PM CDT 08/17/2024 7:55 PM CDT Jesse Burgos MD LAB POCT ORDERABLES - DEVICE Fi nal Result Performing Organization Address [facility] de Phone Number [facility] [place] [place] [address] * POCT glucose (08/17/2024 5:04 PM CDT) Glucose, POC 188 70 - 199 mg/dL Blood 08/17/2024 5:04 PM CDT 08/17/2024 5:04 PM CDT us Jesse Burgos MD LAB POCT ORDERABLES - DEVICE Fi nal Result Performing Organization Address [facility] de Phone Number [facility] [place] [place] [address] * POCT glucose (08/17/2024 11:11 AM CDT) Glucose, POC 163 70 - 199 mg/dL Blood 08/17/2024 11:1 1 AM CDT 08/17/2024 11:11 AM CDT Jesse Burgos MD LAB POCT ORDERABLES - DEVICE Fi nal Result Performing Organization Address [facility] de Phone Number [facility] [place] [place] [address] * Lactate (08/17/2024 10:58 AM CDT) Lactate 1.6 0.7 - 2.0 mmol/L Blood 08/17/2024 10:5 8 AM CDT 08/17/2024 12:40 PM CDT Jesse Burgos MD LAB BLOOD ORDERABLES Final Resu lt Performing Organization Address [facility] Co de Phone Number [facility] Department [place] [address] * POCT glucose (08/17/2024 7:38 AM CDT) Glucose, POC 144 70 - 199 mg/dL Blood 08/17/2024 7:38 AM CDT 08/17/2024 7:38 AM CDT us Jesse Burgos MD LAB POCT ORDERABLES - DEVICE Fi nal Result Performing Organization Address [facility] Co de Phone Number [facility] [place] [address] * eGFR (08/17/2024 6:06 AM CDT) eGFR >90 >=60 mL/min/1. 73 m2 Comment: Interpretive Data Reference Interval Normal >/= 90 mL/min/1.73m2 Mildly decreased* 60 - 89 mL/min/1.73m2 Mildly to moderately decreased 45 - 59 mL/min/1.73m2 Moderately to severely decreased 30 - 44 mL/min/1.73m2 Severely decreased 15 - 29 mL/min/1.73m2 Kidney Failure < 15 mL/min/1.73m2 *Relative to young adult level Estimated glomerular filtration rate is determined by the 2020 CKD-EPI equation recommended by the National Kidney [employer] (A Unifying Approach to GFR Estimation: Recommendations of the NKF-ASK Task Force on Reassessing the Inclusion of Race in Diagnosing Kidney Disease, JASN 2020). The CKD-EPI equation should not be used for patients with unstable renal function and has not been validated in children and those over 70. Current interpretive data was last reviewed 2021. Blood 08/17/2024 6:06 AM CDT 08/17/2024 6:49 AM CDT us Isaiah Segura MD LAB BLOOD ORDERABLES Chelsea l Result Performing Organization Address [facility]/ZIP Co de Phone Number [facility] Department [place] [address] * (ABNORMAL) Iron profile w/ IBC (08/17/2024 6:06 AM CDT) [facility] Iron 38(L) 50 - 150 mcg/dL TIBC 200(L) 250 - 400 mcg/dL [facility] Transferrin saturation 19(L) 20 - 50 % [facility] Blood 08/17/2024 6:06 AM CDT 08/17/2024 6:49 AM CDT us Isaiah Segura MD LAB BLOOD ORDERABLES Chelsea rainey Result [facility] Department [place] [address] * (ABNORMAL) CBC without differential (08/17/2024 6:06 AM CDT) [facility] WBC 7.55 3.80 - 9.90 K/cumm Hgb 10.3(L) 13.0 - 17.5 g/dL [facility] Hct 31.9(L) 38.9 - 50.3 % [facility] Plt 150 150 - 400 K/cumm [facility] MPV 9.1 9.1 - 12.3 fL [facility] RBC 3.58(L) 4.30 - 5.80 M/cumm [facility] MCV 89.1 81.3 - 96.4 fL [facility] MCH 28.8 27.1 - 33.3 pg [facility] MCHC 32.3 32.3 - 35.7 g/dL [facility] RDW CV 15.4(H) 11.1 - 14.9 % [facility] RDW SD 50.7(H) 35.7 - 48.1 fL [facility] NRBC abs 0.00 0.00 - 0.01 K/cumm [facility] Blood 08/17/2024 6:06 AM CDT 08/17/2024 6:49 AM CDT Isaiah Segura MD LAB BLOOD ORDERABLES Chelsea l Result Performing Organization Address City/[facility] Co de Phone Number [facility] [place] [place] [address] * Phosphorus (08/17/2024 6:06 AM CDT) Phosphorus, pl 2.3 2.3 - 4.5 mg/dL Blood 08/17/2024 6:06 AM CDT 08/17/2024 6:49 AM CDT us Wenceslao Reina MD LAB BLOOD ORDERABLES Final R esult Performing Organization Address [facility] de Phone Number [facility] [place] [place] [address] * Magnesium (08/17/2024 6:06 AM CDT) Magnesium 2.1 1.4 - 2.5 mg/dL Blood 08/17/2024 6:06 AM CDT 08/17/2024 6:49 AM CDT us Isaiah Segura MD LAB BLOOD ORDERABLES Chelsea l Result Performing Organization Address [facility] Co de Phone Number [facility] Department [place] [address] * Folate (08/17/2024 6:06 AM CDT) Folic acid >20.0 >=5.0 ng/mL Blood 08/17/2024 6:06 AM CDT 08/17/2024 6:49 AM CDT Isaiah Segura MD LAB BLOOD ORDERABLES Chelsea l Result Performing Organization Address City/[facility] Co de Phone Number [facility] Department [place] [address] * Ferritin (08/17/2024 6:06 AM CDT) [facility] Ferritin 234 30 - 400 ng/mL Blood 08/17/2024 6:06 AM CDT 08/17/2024 6:49 AM CDT Isaiah Segura MD LAB BLOOD ORDERABLES Chelsea l Result [facility] [place] [address] * (ABNORMAL) Vitamin B12 (08/17/2024 6:06 AM CDT) [facility] Vitamin B12 1,618(H) 230 - 1,250 pg/mL Blood 08/17/2024 6:06 AM CDT 08/17/2024 6:49 AM CDT Isaiah Segura MD LAB BLOOD ORDERABLES Chelsea l Result Performing Organization Address City/[facility] [place] [address] * (ABNORMAL) Basic metabolic panel (08/17/2024 6:06 AM CDT) [facility] Sodium 135 135 - 145 mmol/L Potassium, pl 3.6 3.3 - 4.9 mmol/L [facility] Chloride 92(L) 97 - 110 mmol/L [facility] CO2 36(H) 22 - 32 mmol/L [facility] Anion gap 7 2 - 15 mmol/L [facility] BUN 14 6 - 25 mg/dL [facility] Creatinine 0.78(L) 0.80 - 1.30 mg/dL [facility] Glucose 124 70 - 199 mg/dL [facility] Comment: Interpretive Data Fasting glucose >/= 126 mg/dl is diagnostic for diabetes. Fasting is defined as no caloric intake for at least 8 hours. Fasting glucose between 100 mg/dl to 125 mg/dl is diagnostic of prediabetes. In a patient with classic symptoms of hyperglycemia or hyperglycemic crisis, a random glucose >/= 200 mg/dl is diagnostic for diabetes. In the absence of unequivocal hyperglycemia, results should be confirmed by repeat testing. The classification and Diagnosis of Diabetes Diabetes Care 2021; 46: S19-S40. Current interpretive data was last revised 2022. Calcium 9.2 8.5 - 10.3 mg/dL [facility] Blood 08/17/2024 6:06 AM CDT 08/17/2024 6:49 AM CDT Isaiah Segura MD LAB BLOOD ORDERABLES Chelsea l Result Performing Organization Address [facility] Co de Phone Number [facility] [place] [place] [address] * POCT glucose (08/16/2024 9:19 PM CDT) Glucose, POC 173 70 - 199 mg/dL Blood 08/16/2024 9:19 PM CDT 08/16/2024 9:19 PM CDT Isaiah Segura MD LAB POCT ORDERABLES - DEV ICE Final Result Performing Organization Address [facility] Co de Phone Number [facility] Department [place] [address] * POCT glucose (08/16/2024 9:10 PM CDT) Glucose, POC 192 70 - 199 mg/dL Blood 08/16/2024 9:10 PM CDT 08/16/2024 9:10 PM CDT Isaiah Segura MD LAB POCT ORDERABLES - DEV ICE Final Result Performing Organization Address [facility] Co de Phone Number [facility] Department [place] [address] * Lactate (08/16/2024 7:03 PM CDT) Lactate 1.6 0.7 - 2.0 mmol/L Blood 08/16/2024 7:03 PM CDT 08/16/2024 7:17 PM CDT Isaiah Segura MD LAB BLOOD ORDERABLES Chelsea l Result Performing Organization Address City/[facility] Co de Phone Number [facility] [place] [address] * POCT glucose (08/16/2024 5:13 PM CDT) Glucose, POC 125 70 - 199 mg/dL Blood 08/16/2024 5:13 PM CDT 08/16/2024 5:13 PM CDT Isaiah Segura MD LAB POCT ORDERABLES - DEV ICE Final Result Performing Organization Address [facility] de Phone Number [facility] [place] [place] [address] * Lactate (08/16/2024 4:56 PM CDT) Lactate 1.2 0.7 - 2.0 mmol/L Blood 08/16/2024 4:56 PM CDT 08/16/2024 5:29 PM CDT Isaiah Segura MD LAB BLOOD ORDERABLES Chelsea l Result Performing Organization Address [facility] de Phone Number [facility] [place] [employer] [place] [address] * (ABNORMAL) POCT glucose (08/16/2024 11:23 AM CDT) Glucose, POC 269(H) 70 - 199 mg/dL Blood 08/16/2024 11:2 3 AM CDT 08/16/2024 11:23 AM CDT us Isaiah Segura MD LAB POCT ORDERABLES - DEV ICE Final Result [facility] [place] [address] * TRANSTHORACIC ECHO (TTE) COMPLETE W DOPPLER/CF W CONTRAST (08/16/2024 11:21 AM CDT) Anatomical Region Laterality Modality Ultrasound 08/16/2024 10:0 1 AM CDT Narrative 08/16/2024 11:58 AM CDT [facility] [place] [address] Transthoracic Echocardiographic Report Patient Name: SOPHIA HANNA STEPHEN : 1990 (34y 3m) Gender: M Study Date: 08/16/2024 10:01:37 AM Ht(Inch): 72 Wt(Lb): 138.01 BSA: 1.78 Store Group Manager: Patricia Carmichael RDCS Location: [id number] Order Provider: WENCESLAO REINA Heart Rate: 106 BMI: 18.72 BP: 119 / 84 Ref Provider: WENCESLAO REINA PROCEDURES: Echocardiographic Report: Transthoracic complete echo with strain imaging and contrast, 2D, spectral and tissue Doppler, color flow Doppler, M-mode. Contrast: Contrast Enhancement was Employed: Due to suboptimal image quality with inadequate visualization of at least 2 of 16 LV wall segments in any view after initial imaging. Perflutren contrast was administered using the volume necessary to obtain adequate images. 0.8 ml Optison Administered, (2.2 ml wasted). INDICATIONS: Congestive heart failure. CONCLUSIONS: 1. Mildly dilated left ventricle based on volume index. Eccentric LV hypertrophy. The Ejection Fraction (Valentin's) is measured at 36 %. Left ventricular diastolic function is indeterminate due to tachycardia. 2. There is akinesis of the inferolateral wall. 3. Normal right ventricular size. Normal right ventricular systolic function. 4. There is no significant valvular heart disease. 5. Normal pericardium without pericardial effusion. 6. Normal aortic root. 7. IVC is normal in size. 8. Unable to determine PASP due to inadequate TR jet. ATTESTATION: I have personally reviewed and interpreted this study without fellow or resident. - DISCLAIMER: The study images and the final report will be retained in the patient chart by the Echo Laboratory for the legally required time period. This chart constitutes the legal record of any testing performed. FINDINGS: Left Ventricle: Mildly dilated left ventricle based on volume index. Eccentric LV hypertrophy. Moderately depressed left ventricular systolic function. The Ejection Fraction (Valentin's) is measured at 36 %. Left ventricular diastolic function is indeterminate due to tachycardia. The average global longitudinal strain is abnormal. The LV global strain is: -8.6 %. Resting Segmental Wall Motion Analysis: Total wall motion score is 3.00. There is akinesis of the entire inferolateral wall. Right Ventricle: Normal right ventricular size. Normal right ventricular systolic function. Left Atrium: The left atrium is normal in size. Right Atrium: The right atrium is normal in size. Mitral Valve: Normal mitral valve structure. No mitral regurgitation. No stenosis present. Aortic Valve: Normal trileaflet aortic valve. No aortic regurgitation. No aortic valve stenosis. Tricuspid Valve: Normal tricuspid valve structure. No tricuspid regurgitation. No tricuspid valve stenosis. Pulmonic Valve: Normal pulmonic valve structure. No pulmonic regurgitation. No pulmonic valve stenosis present. Pericardium: Normal pericardium without pericardial effusion. Aorta: Normal aortic root. IVC: IVC is normal in size. PASP: Unable to determine PASP due to inadequate TR jet. Rhythm: The rhythm during the study was sinus tachycardia. MEASUREMENTS: 2D/MM Value Range Doppler Value Range LVIDd 2D 4.84 cm [ 4.20 - 5.80 ] AV Peak Darvin 0.9 m/s [ 1.0 - 1.7 ] LVIDs 2D 3.94 cm [ 2.50 - 4.00 ] AV Peak PG 3.24 mmHg IVSd 2D 0.82 cm [ 0.60 - 1.00 ] AV Mean PG 2 mmHg LVPWd 2D 1.11 cm [ 0.60 - 1.00 ] AV VTI 11.9 cm LV Thickness Ratio 0.7 LVOT Peak Darvin 0.9 m/s [ 0.7 - 1.1 ] LV FS 2D 18.67 % [ 25.00 - 43.00 ] LVOT Peak PG 3.24 mmHg LV Mass 2D 168.06 g LVOT Mean PG 2 mmHg LV Mass Index 2D 94.42 g/m2 LVOT VTI 11.9 cm RWT 0.46 LVOT Diam 2.17 cm EDV Mod BP 120.06 ml [ 62.00 - 150.00 ] DEN VTI 3.70 cm2 LV EDV Index 67.45 ml/m2 LVOT/AV VTI 1.00 - Dimensionless index (DVI) ESV Mod BP 77.06 ml [ 21.00 - 61.00 ] MV E Peak Darvin 0.4 m/s [ 0.6 - 1.3 ] EF Mod BP 36 % [ 52 - 72 ] MV A Peak Darvin 0.6 m/s [ 1.0 - 1.2 ] LV GLS -8.6 % [ -25.0 - -18.0 ] MV E/A 0.7 ratio [ 0.8 - 1.5 ] LA Length 4C 3.89 cm MV Decel Time 204.48 msec [ 104.00 - 258.00 ] LA Length 2C 3.77 cm Med E` Darvin 5.5 cm/sec [ 8.0 - 25.0 ] LA Volume BP 21.99 ml Lat E` Darvin 5.1 cm/sec [ 10.0 - 25.0 ] LA Volume Index 12.35 ml/m2 [ 16.00 - 34.00 ] Average E/E` 7.55 RV Base Dimen 2D 3.0 cm [ 2.5 - 4.2 ] RV S` 12.51 cm/sec TAPSE 1.69 cm [ 1.71 - 5.00 ] TR Peak Darvin 2.4 m/s [ 1.0 - 2.8 ] RA Volume 23.91 ml TR Peak PG 23.0 mmHg RA Volume Index 13.43 ml/m2 PV Peak Darvin 1.0 m/s [ 0.4 - 0.8 ] IVC Diam 1.41 cm PV Peak PG 4.00 mmHg AoR Diam 2D 4.04 cm [ 3.10 - 3.70 ] Ao Root Index 2.27 cm/m2 [ 1.00 - 2.00 ] Asc Ao Diam 2D 3.79 cm Asc Ao Index 2.13 cm/m2 Electronically Signed By: Re Bautista MD 08/16/2024 11:58:02 AM CDT CC: Wenceslao Reina MD Procedure Note Re Bautista MD - 08/16/2024 [facility] Card[facility] [place] [address] Transthoracic Echocardiographic Report Patient Name: SOPHIA HANNA STEPHEN : 1990 (34y 3m) Gender: M Study Date: 08/16/2024 10:01:37 AM Ht(Inch): 72 Wt(Lb): 138.01 BSA: 1.78 Store Group Manager: Patricia Carmichael SUNI Location: [id number] Order Provider:WENCESLAO REINA Heart Rate: 106 BMI: 18.72 BP: 119 / 84 Ref Provider: WENCESLAO REINA PROCEDURES: Echocardiographic Report: Transthoracic complete echo with strain imagingand contrast, 2D, spectral and tissue Doppler, color flow Doppler, M-mode. Contrast: Contrast Enhancement was Employed: Due to suboptimal imagequality with inadequate visualization of at least 2 of 16 LV wall segments in any viewafter initial imaging. Perflutren contrast was administered using the volume necessaryto obtain adequate images. 0.8 ml Optison Administered, (2.2 ml wasted). INDICATIONS: Congestive heart failure. CONCLUSIONS: 1. Mildly dilated left ventricle based on volume index. Eccentric LVhypertrophy. The Ejection Fraction (Valentin's) is measured at 36 %. Left ventriculardiastolic function is indeterminate due to tachycardia. 2. There is akinesis of the inferolateral wall. 3. Normal right ventricular size. Normal right ventricular systolicfunction. 4. There is no significant valvular heart disease. 5. Normal pericardium without pericardial effusion. 6. Normal aortic root. 7. IVC is normal in size. 8. Unable to determine PASP due to inadequate TR jet. ATTESTATION: I have personally reviewed and interpreted this study without fellow orresident. - DISCLAIMER: The study images and the final report will be retained in the patientchart by the Echo Laboratory for the legally required time period. This chart constitutesthe legal record of any testing performed. FINDINGS: Left Ventricle: Mildly dilated left ventricle based on volume index.Eccentric LV hypertrophy. Moderately depressed left ventricular systolic function. TheEjection Fraction (Valentin's) is measured at 36 %. Left ventricular diastolicfunction is indeterminate due to tachycardia. The average global longitudinal strainis abnormal. The LV global strain is: -8.6 %. Resting Segmental Wall Motion Analysis: Total wall motion score is 3.00.There is akinesis of the entire inferolateral wall. Right Ventricle: Normal right ventricular size. Normal right ventricularsystolic function. Left Atrium: The left atrium is normal in size. Right Atrium: The right atrium is normal in size. Mitral Valve: Normal mitral valve structure. No mitral regurgitation. Nostenosis present. Aortic Valve: Normal trileaflet aortic valve. No aortic regurgitation. Noaortic valve stenosis. Tricuspid Valve: Normal tricuspid valve structure. No tricuspidregurgitation. No tricuspid valve stenosis. Pulmonic Valve: Normal pulmonic valve structure. No pulmonicregurgitation. No pulmonic valve stenosis present. Pericardium: Normal pericardium without pericardial effusion. Aorta: Normal aortic root. IVC: IVC is normal in size. PASP: Unable to determine PASP due to inadequate TR jet. Rhythm: The rhythm during the study was sinus tachycardia. MEASUREMENTS: 2D/MM Value Range DopplerValue Range LVIDd 2D 4.84 cm [ 4.20 - 5.80 ] AV Peak Vel0.9 m/s [ 1.0 - 1.7 ] LVIDs 2D 3.94 cm [ 2.50 - 4.00 ] AV Peak PG3.24 mmHg IVSd 2D 0.82 cm [ 0.60 - 1.00 ] AV Mean PG2 mmHg LVPWd 2D 1.11 cm [ 0.60 - 1.00 ] AV VTI11.9 cm LV Thickness Ratio 0.7 LVOT Peak Vel0.9 m/s [ 0.7 - 1.1 ] LV FS 2D 18.67 % [ 25.00 - 43.00 ] LVOT Peak PG3.24 mmHg LV Mass 2D 168.06 g LVOT Mean PG2 mmHg LV Mass Index 2D 94.42 g/m2 LVOT VTI11.9 cm RWT 0.46 LVOT Diam2.17 cm EDV Mod BP 120.06 ml [ 62.00 - 150.00 ] DEN VTI3.70 cm2 LV EDV Index 67.45 ml/m2 LVOT/AV VTI1.00 - Dimensionless index (DVI) ESV Mod BP 77.06 ml [ 21.00 - 61.00 ] MV E Peak Vel0.4 m/s [ 0.6 - 1.3 ] EF Mod BP 36 % [ 52 - 72 ] MV A Peak Vel0.6 m/s [ 1.0 - 1.2 ] LV GLS -8.6 % [ -25.0 - -18.0 ] MV E/A0.7 ratio [ 0.8 - 1.5 ] LA Length 4C 3.89 cm MV Decel Iwwd449.48 msec [ 104.00 - 258.00 ] LA Length 2C 3.77 cm Med E` Vel5.5 cm/sec [ 8.0 - 25.0 ] LA Volume BP 21.99 ml Lat E` Vel5.1 cm/sec [ 10.0 - 25.0 ] LA Volume Index 12.35 ml/m2 [ 16.00 - 34.00 ] Average E/E`7.55 RV Base Dimen 2D 3.0 cm [ 2.5 - 4.2 ] RV S`12.51 cm/sec TAPSE 1.69 cm [ 1.71 - 5.00 ] TR Peak Vel2.4 m/s [ 1.0 - 2.8 ] RA Volume 23.91 ml TR Peak PG23.0 mmHg RA Volume Index 13.43 ml/m2 PV Peak Vel1.0 m/s [ 0.4 - 0.8 ] IVC Diam 1.41 cm PV Peak PG4.00 mmHg AoR Diam 2D 4.04 cm [ 3.10 - 3.70 ] Ao Root Index 2.27 cm/m2 [ 1.00 - 2.00 ] Asc Ao Diam 2D3.79 cm Asc Ao Index2.13 cm/m2 Electronically Signed By: Re Bautista MD 08/16/2024 11:58:02 AM CDT CC: Wenceslao Reina MD us Wenceslao Reina MD CV ECHO PROCEDURES Final Res ult * (ABNORMAL) Troponin I high-sensitivity (08/16/2024 11:14 AM CDT) Trop I hs 51(H) <=35 ng/L Comment: Interpretive Data For further hscTnI resources including the diagnostic algorithm and an aid in interpretation, copy and paste this link: [email or web address].[email or web address]/show/[email or web address] Current Interpretive Data last revised 2019. Blood 08/16/2024 11:1 4 AM CDT 08/16/2024 12:32 PM CDT us Isaiah Segura MD LAB BLOOD ORDERABLES Chelsea l Result [facility] Department [place] [address] * (ABNORMAL) POCT glucose (08/16/2024 9:06 AM CDT) Glucose, POC 287(H) 70 - 199 mg/dL Blood 08/16/2024 9:06 AM CDT 08/16/2024 9:06 AM CDT us Isaiah Segura MD LAB POCT ORDERABLES - DEV ICE Final Result Performing Organization Address [facility] Co de Phone Number [facility] [place] [address] * eGFR (08/16/2024 9:01 AM CDT) eGFR >90 >=60 mL/min/1. 73 m2 Comment: Interpretive Data Reference Interval Normal >/= 90 mL/min/1.73m2 Mildly decreased* 60 - 89 mL/min/1.73m2 Mildly to moderately decreased 45 - 59 mL/min/1.73m2 Moderately to severely decreased 30 - 44 mL/min/1.73m2 Severely decreased 15 - 29 mL/min/1.73m2 Kidney Failure < 15 mL/min/1.73m2 *Relative to young adult level Estimated glomerular filtration rate is determined by the 2020 CKD-EPI equation recommended by the National Kidney Foundation (A Unifying Approach to GFR Estimation: Recommendations of the NKF-ASK Task Force on Reassessing the Inclusion of Race in Diagnosing Kidney Disease, JASN 2020). The CKD-EPI equation should not be used for patients with unstable renal function and has not been validated in children and those over 70. Current interpretive data was last reviewed 2021. Blood 08/16/2024 9:01 AM CDT 08/16/2024 10:05 AM CDT us Wenceslao Reina MD LAB BLOOD ORDERABLES Final R esult Performing Organization Address City/[facility]/ZIP Co de Phone Number [facility] [place] [address] * (ABNORMAL) CBC without differential (08/16/2024 9:01 AM CDT) WBC 10.14(H) 3.80 - 9.90 K/cumm Hgb 11.4(L) 13.0 - 17.5 g/dL [facility] Hct 34.3(L) 38.9 - 50.3 % [facility] Plt 174 150 - 400 K/cumm [facility] MPV 9.6 9.1 - 12.3 fL [facility] RBC 3.92(L) 4.30 - 5.80 M/cumm [facility] MCV 87.5 81.3 - 96.4 fL [facility] MCH 29.1 27.1 - 33.3 pg [facility] MCHC 33.2 32.3 - 35.7 g/dL [facility] RDW CV 15.2(H) 11.1 - 14.9 % [facility] RDW SD 48.6(H) 35.7 - 48.1 fL [facility] NRBC abs 0.00 0.00 - 0.01 K/cumm [facility] Blood 08/16/2024 9:01 AM CDT 08/16/2024 10:05 AM CDT us Wenceslao Reina MD LAB BLOOD ORDERABLES Final R esult [facility] [place] [address] * (ABNORMAL) Basic metabolic panel (08/16/2024 9:01 AM CDT) Sodium 130(L) 135 - 145 mmol/L Potassium, pl 3.5 3.3 - 4.9 mmol/L [facility] Chloride 86(L) 97 - 110 mmol/L [facility] CO2 36(H) 22 - 32 mmol/L [facility] Anion gap 8 2 - 15 mmol/L [facility] BUN 8 6 - 25 mg/dL [facility] Creatinine 0.65(L) 0.80 - 1.30 mg/dL [facility] Glucose 189 70 - 199 mg/dL [facility] Comment: Interpretive Data Fasting glucose >/= 126 mg/dl is diagnostic for diabetes. Fasting is defined as no caloric intake for at least 8 hours. Fasting glucose between 100 mg/dl to 125 mg/dl is diagnostic of prediabetes. In a patient with classic symptoms of hyperglycemia or hyperglycemic crisis, a random glucose >/= 200 mg/dl is diagnostic for diabetes. In the absence of unequivocal hyperglycemia, results should be confirmed by repeat testing. The classification and Diagnosis of Diabetes Diabetes Care 2021; 46: S19-S40. Current interpretive data was last revised 2022. Calcium 9.2 8.5 - 10.3 mg/dL [facility] Blood 08/16/2024 9:01 AM CDT 08/16/2024 10:05 AM CDT Wenceslao Reina MD LAB BLOOD ORDERABLES Final R esult Performing Organization Address City/[facility] Co de Phone Number [facility] [place] [address] * Calcium, ionized (08/16/2024 5:40 AM CDT) Calcium, Ionized 4.59 4.50 - 5.10 mg/dL Blood 08/16/2024 5:40 AM CDT 08/16/2024 5:56 AM CDT Wenceslao Reina MD LAB BLOOD ORDERABLES Final R esult Performing Organization Address [facility] de Phone Number [facility] Department [place] [address] * (ABNORMAL) Phosphorus (08/16/2024 5:40 AM CDT) Phosphorus, pl 1.3(L) 2.3 - 4.5 mg/dL Blood 08/16/2024 5:40 AM CDT 08/16/2024 5:56 AM CDT Wenceslao Reina MD LAB BLOOD ORDERABLES Final R esult Performing Organization Address [facility] Co de Phone Number [facility] [place] [address] * (ABNORMAL) Hepatic function panel (08/16/2024 5:40 AM CDT) [facility] Bilirubin, total 0.5 0.1 - 1.2 mg/dL Bilirubin, direct 0.2 0.1 - 0.3 mg/dL [facility] Protein, pl 6.5 6.5 - 8.5 g/dL [facility] Albumin 4.2 3.5 - 5.0 g/dL [facility] Alk phos 69 40 - 130 Units/L [facility] ALT 52 7 - 55 Units/L [facility] AST 88(H) 10 - 50 Units/L [facility] Blood 08/16/2024 5:40 AM CDT 08/16/2024 5:56 AM CDT us Wenceslao Reina MD LAB BLOOD ORDERABLES Final R esult Performing Organization Address City/[facility]/[place] [address] * POCT glucose (08/16/2024 3:49 AM CDT) [facility] Glucose, POC 179 70 - 199 mg/dL Blood 08/16/2024 3:49 AM CDT 08/16/2024 3:49 AM CDT Wenceslao Reina MD LAB POCT ORDERABLES - DEVICE Final Result Performing Organization Address [facility]/[place] [address] * Oxyhemoglobin, pulmonary artery (08/15/2024 11:30 PM CDT) [facility] Oxyhemoglobin, PA 67.9 % Comment: Interpretive Data No reference range established. Current interpretive data was last revised 2019. Blood 08/15/2024 11:3 0 PM CDT 08/15/2024 11:49 PM CDT us Wenceslao Reina MD LAB BLOOD ORDERABLES Final R esult Performing Organization Address [facility] Co de Phone Number [facility] [place] [address] * (ABNORMAL) Hemoglobin total, pulmonary artery (08/15/2024 11:30 PM CDT) Hemoglobin total, PA 11.6(L) 13.0 - 17.5 g/dL Blood 08/15/2024 11:3 0 PM CDT 08/15/2024 11:49 PM CDT us Wenceslao Reina MD LAB BLOOD ORDERABLES Final R esult Performing Organization Address [facility] de Phone Number [facility] [place] [address] * POCT glucose (08/15/2024 11:30 PM CDT) Glucose, POC 186 70 - 199 mg/dL Blood 08/15/2024 11:3 0 PM CDT 08/15/2024 11:30 PM CDT us Wenceslao Reina MD LAB POCT ORDERABLES - DEVICE Final Result Performing Organization Address [facility] Co de Phone Number [facility] [place] [employer] [place] [address] * Lactate, whole blood (08/15/2024 11:30 PM CDT) Lactate, bld 1.8 0.7 - 2.0 mmol/L Blood 08/15/2024 11:3 0 PM CDT 08/15/2024 11:49 PM CDT Wenceslao Reina MD LAB BLOOD ORDERABLES Final R esult Performing Organization Address [facility] Co de Phone Number [facility] [place] [address] * eGFR (08/15/2024 9:17 PM CDT) eGFR >90 >=60 mL/min/1. 73 m2 Comment: Interpretive Data Reference Interval Normal >/= 90 mL/min/1.73m2 Mildly decreased* 60 - 89 mL/min/1.73m2 Mildly to moderately decreased 45 - 59 mL/min/1.73m2 Moderately to severely decreased 30 - 44 mL/min/1.73m2 Severely decreased 15 - 29 mL/min/1.73m2 Kidney Failure < 15 mL/min/1.73m2 *Relative to young adult level Estimated glomerular filtration rate is determined by the 2020 CKD-EPI equation recommended by the National Kidney Foundation (A Unifying Approach to GFR Estimation: Recommendations of the NKF-ASK Task Force on Reassessing the Inclusion of Race in Diagnosing Kidney Disease, JASN 2020). The CKD-EPI equation should not be used for patients with unstable renal function and has not been validated in children and those over 70. Current interpretive data was last reviewed 2021. Blood 08/15/2024 9:17 PM CDT 08/15/2024 9:48 PM CDT us Wenceslao Reina MD LAB BLOOD ORDERABLES Final R esult Performing Organization Address [facility] Co de Phone Number [facility] Department [place] [address] * Magnesium (08/15/2024 9:17 PM CDT) Magnesium 2.1 1.4 - 2.5 mg/dL Blood 08/15/2024 9:17 PM CDT 08/15/2024 9:48 PM CDT us Mumtaz Juan MD LAB BLOOD ORDERABLES Fi nal Result Performing Organization Address [facility] Co de Phone Number [facility] Department [place] [address] * (ABNORMAL) Basic metabolic panel (08/15/2024 9:17 PM CDT) Sodium 130(L) 135 - 145 mmol/L Potassium, pl 4.2 3.3 - 4.9 mmol/L [facility] Chloride 87(L) 97 - 110 mmol/L [facility] CO2 34(H) 22 - 32 mmol/L [facility] Anion gap 9 2 - 15 mmol/L [facility] BUN 10 6 - 25 mg/dL [facility] Creatinine 0.77(L) 0.80 - 1.30 mg/dL [facility] Glucose 133 70 - 199 mg/dL [facility] Comment: Interpretive Data Fasting glucose >/= 126 mg/dl is diagnostic for diabetes. Fasting is defined as no caloric intake for at least 8 hours. Fasting glucose between 100 mg/dl to 125 mg/dl is diagnostic of prediabetes. In a patient with classic symptoms of hyperglycemia or hyperglycemic crisis, a random glucose >/= 200 mg/dl is diagnostic for diabetes. In the absence of unequivocal hyperglycemia, results should be confirmed by repeat testing. The classification and Diagnosis of Diabetes Diabetes Care 2021; 46: S19-S40. Current interpretive data was last revised 2022. Calcium 9.7 8.5 - 10.3 mg/dL [facility] Blood 08/15/2024 9:17 PM CDT 08/15/2024 9:48 PM CDT us Wenceslao Reina MD LAB BLOOD ORDERABLES Final R esult [facility] Department [place] [address] * POCT glucose (08/15/2024 9:16 PM CDT) Glucose, POC 143 70 - 199 mg/dL Blood 08/15/2024 9:16 PM CDT 08/15/2024 9:16 PM CDT us Wenceslao Reina MD LAB POCT ORDERABLES - DEVICE Final Result Performing Organization Address [facility] [place] [address] * POCT glucose (08/15/2024 6:29 PM CDT) Glucose, POC 138 70 - 199 mg/dL Blood 08/15/2024 6:29 PM CDT 08/15/2024 6:29 PM CDT us Wenceslao Reina MD LAB POCT ORDERABLES - DEVICE Final Result Performing Organization Address [facility] de Phone Number [facility] [place] [address] * POCT glucose (08/15/2024 5:17 PM CDT) Glucose, POC 198 70 - 199 mg/dL Blood 08/15/2024 5:17 PM CDT 08/15/2024 5:17 PM CDT us Wenceslao Reina MD LAB POCT ORDERABLES - DEVICE Final Result Performing Organization Address [facility] de Phone Number [facility] Department [place] [address] * POCT glucose (08/15/2024 4:21 PM CDT) Glucose, POC 170 70 - 199 mg/dL Blood 08/15/2024 4:21 PM CDT 08/15/2024 4:21 PM CDT Wenceslao Reina MD LAB POCT ORDERABLES - DEVICE Final Result Performing Organization Address [facility] Co de Phone Number [facility] [place] [address] * Oxyhemoglobin, central venous (08/15/2024 3:22 PM CDT) Oxyhemoglobin, CV 70.4 % Comment: Interpretive Data No reference range established. Current interpretive data was last revised 2019. Blood 08/15/2024 3:22 PM CDT 08/15/2024 3:28 PM CDT us Wenceslao Reina MD LAB BLOOD ORDERABLES Final R esult [facility] [place] [address] * (ABNORMAL) Hemoglobin total, pulmonary artery (08/15/2024 3:22 PM CDT) Pathologist [facility] Hemoglobin total, [place] 10.6(L) 13.0 - 17.5 g/dL Blood 08/15/2024 3:22 PM CDT 08/15/2024 3:36 PM CDT us Wenceslao Reina MD LAB BLOOD ORDERABLES Final R esult [facility] Department [place] [address] * eGFR (08/15/2024 3:22 PM CDT) eGFR >90 >=60 mL/min/1. 73 m2 Comment: Interpretive Data Reference Interval Normal >/= 90 mL/min/1.73m2 Mildly decreased* 60 - 89 mL/min/1.73m2 Mildly to moderately decreased 45 - 59 mL/min/1.73m2 Moderately to severely decreased 30 - 44 mL/min/1.73m2 Severely decreased 15 - 29 mL/min/1.73m2 Kidney Failure < 15 mL/min/1.73m2 *Relative to young adult level Estimated glomerular filtration rate is determined by the 2020 CKD-EPI equation recommended by the National Kidney Foundation (A Unifying Approach to GFR Estimation: Recommendations of the NKF-ASK Task Force on Reassessing the Inclusion of Race in Diagnosing Kidney Disease, JASMaryse 2020). The CKD-EPI equation should not be used for patients with unstable renal function and has not been validated in children and those over 70. Current interpretive data was last reviewed 2021. Blood 08/15/2024 3:22 PM CDT 08/15/2024 3:44 PM CDT us Wenceslao Reina MD LAB BLOOD ORDERABLES Final R esult [facility] [place] [address] * (ABNORMAL) Pro B-type natriuretic peptide (08/15/2024 3:22 PM CDT) NT-proBNP 4,316(H) <=300 pg/mL Comment: Interpretive Comments: A. Dyspnea in Acute Care Setting All Ages: < 300 pg/ml, acute heart failure unlikely. < 50 yrs: 300 - 450 pg/ml, further investigation warranted. > 450 pg/ml, acute heart failure likely. 50 - 74 yrs: 300 - 900 pg/ml, further investigation warranted. > 900 pg/ml, acute heart failure likely . > or = 75 yrs: 450 - 1800 pg/ml, further investigation warranted. > 1800 pg/ml, acute heart failure likely. B. Non-acute Setting < 75 yrs < 125 pg/ml, rules out heart failure. > or = 125 pg/ml, further investigation warranted. > or = 75 yrs < 450 pg/ml, rules out heart failure. > or = 450 pg/ml, further investigation warranted. - Knowledge of each individual patient's NT-proBNP range may be more useful than using similar cut-points for every patient. Please note that marked elevations in NT-proBNP levels may be observed in state other than Left Ventricular Congestive Failure, including: acute coronary syndromes, right heart strain/failure (including pulmonary embolism and cor pulmonale), critical illness, renal failure, as well as advanced age. - References: 1. Miya HEREDIA et.al. Eur Heart J. 2006:27:330-337. 2. Autumn RW, Janet AM. J. AM Raymon Cardiol: Cardiovasc Imag. 2009;2: 216- 225. Interpretive Data Last Revised Date: 2017. Blood 08/15/2024 3:22 PM CDT 08/15/2024 3:44 PM CDT us Wenceslao Reina MD LAB BLOOD ORDERABLES Final R esult Performing Organization Address [facility] Co de Phone Number [facility] [place] [employer] [place] [address] * Lactate, whole blood (08/15/2024 3:22 PM CDT) Lactate, bld 1.2 0.7 - 2.0 mmol/L Blood 08/15/2024 3:22 PM CDT 08/15/2024 3:28 PM CDT Wenceslao Reina MD LAB BLOOD ORDERABLES Final R esult Performing Organization Address [facility] Co de Phone Number [facility] [place] [employer] [place] [address] * Phosphorus (08/15/2024 3:22 PM CDT) Pathologist [facility] Phosphorus, pl 3.0 2.3 - 4.5 mg/dL Comment:Reviewed Blood 08/15/2024 3:22 PM CDT 08/15/2024 3:44 PM CDT Wenceslao Reina MD LAB BLOOD ORDERABLES Final R esult Performing Organization Address [facility] Co de Phone Number [facility] [place] [address] * Magnesium (08/15/2024 3:22 PM CDT) Magnesium 2.3 1.4 - 2.5 mg/dL Blood 08/15/2024 3:22 PM CDT 08/15/2024 3:44 PM CDT Wenceslao Reina MD LAB BLOOD ORDERABLES Final R esult Performing Organization Address City/[facility]/ZIP Co de Phone Number [facility] [place] [address] * (ABNORMAL) Basic metabolic panel (08/15/2024 3:22 PM CDT) [facility] Sodium 133(L) 135 - 145 mmol/L Potassium, pl 4.1 3.3 - 4.9 mmol/L [facility] Chloride 89(L) 97 - 110 mmol/L [facility] CO2 33(H) 22 - 32 mmol/L [facility] Anion gap 11 2 - 15 mmol/L [facility] BUN 14 6 - 25 mg/dL [facility] Creatinine 0.93 0.80 - 1.30 mg/dL [facility] Glucose 145 70 - 199 mg/dL [facility] Comment: Interpretive Data Fasting glucose >/= 126 mg/dl is diagnostic for diabetes. Fasting is defined as no caloric intake for at least 8 hours. Fasting glucose between 100 mg/dl to 125 mg/dl is diagnostic of prediabetes. In a patient with classic symptoms of hyperglycemia or hyperglycemic crisis, a random glucose >/= 200 mg/dl is diagnostic for diabetes. In the absence of unequivocal hyperglycemia, results should be confirmed by repeat testing. The classification and Diagnosis of Diabetes Diabetes Care 2021; 46: S19-S40. Current interpretive data was last revised 2022. Calcium 10.1 8.5 - 10.3 mg/dL [facility] Blood 08/15/2024 3:22 PM CDT 08/15/2024 3:44 PM CDT Wenceslao Reina MD LAB BLOOD ORDERABLES Final R esult Performing Organization Address City/[facility]/ZIP Co de Phone Number [facility] Department [place] [address] * POCT glucose (08/15/2024 3:20 PM CDT) Glucose, POC 146 70 - 199 mg/dL Blood 08/15/2024 3:20 PM CDT 08/15/2024 3:20 PM CDT Wenceslao Reina MD LAB POCT ORDERABLES - DEVICE Final Result Performing Organization Address [facility] Co de Phone Number [id number] [place] [address] * POCT glucose (08/15/2024 2:40 PM CDT) Glucose, POC 93 70 - 199 mg/dL Blood 08/15/2024 2:40 PM CDT 08/15/2024 2:40 PM CDT us Wenceslao Reina MD LAB POCT ORDERABLES - DEVICE Final Result Performing Organization Address [facility] [place] [address] * XR Chest 1 View (08/15/2024 2:40 PM CDT) Anatomical Region Laterality Modality Body, Chest N/A Computed Radiogr aphy 08/16/2024 9:53 AM CDT Impressions 08/16/2024 9:53 AM CDT 1. No prior examination available for comparison. A right peripherally inserted central venous catheter tip is in the right atrium. Howe-Micah catheter tip overlies the main pulmonary artery. There is no pneumonic consolidation or pneumothorax. 2. Comparison is made to prior examination from the same date. The Howe-Micah catheter tip is now located in the proximal left pulmonary artery. There is otherwise no significant interval change. Electronically signed by: Roman Carmona M.D. Narrative 08/16/2024 9:53 AM CDT EXAMINATION: 1 view chest radiograph Procedure Note Roman Carmona MD - 08/16/2024 EXAMINATION: 1 view chest radiograph IMPRESSION: 1. No prior examination available for comparison. A right peripherally inserted central venous catheter tip is in the right atrium. Howe-Micah catheter tip overlies the main pulmonary artery. There is no pneumonic consolidation or pneumothorax. 2. Comparison is made to prior examination from the same date. The Howe-Micah catheter tip is now located in the proximal left pulmonary artery. There is otherwise no significant interval change. Electronically signed by: Roman Carmona M.D. us Wenceslao Reina MD IMG XR PROCEDURES Final Resu lt * POCT glucose (08/15/2024 2:05 PM CDT) Glucose, POC 86 70 - 199 mg/dL Blood 08/15/2024 2:05 PM CDT 08/15/2024 2:05 PM CDT us Wenceslao Reina MD LAB POCT ORDERABLES - DEVICE Final Result [facility] [place] [address] * (ABNORMAL) Blood gas, arterial (08/15/2024 1:51 PM CDT) pH, Art 7.48(H) 7.35 - 7.45 PCO2, Arterial 47(H) 35 - 45 mmHg [facility] PO2, Arterial 89 83 - 108 mmHg [facility] HCO3 Art (Calculated) 35(H) 20 - 30 mmol/L [facility] BE, art 10 mmol/L [facility] Comment: Interpretive Data No Reference Range Established Current Interpretive Data was last revised on 2017 O2 Sat Art (Measured) 97(H) 90 - 95 % [facility] Blood 08/15/2024 1:51 PM CDT 08/15/2024 1:58 PM CDT us Wenceslao Reina MD LAB BLOOD ORDERABLES Final R esult Performing Organization Address City/[facility]/ZIP Co de Phone Number [facility] [place] [employer] [place] [address] * POCT glucose (08/15/2024 1:03 PM CDT) Glucose, POC 124 70 - 199 mg/dL Blood 08/15/2024 1:03 PM CDT 08/15/2024 1:03 PM CDT us Wenceslao Reina MD LAB POCT ORDERABLES - DEVICE Final Result Performing Organization Address [facility] Co de Phone Number [facility] [place] [address] * XR Abdomen Ap 1 Vw (08/15/2024 12:36 PM CDT) Anatomical Region Laterality Modality Body, Abdomen N/A Computed Radiogr aphy 08/16/2024 10:1 6 AM CDT Impressions 08/16/2024 10:37 AM CDT Cortez catheter temperature probe projects over the pelvis. Pulmonary artery catheter partially imaged. There are dilated, gas-filled loops of small bowel with scattered gas throughout the colon, favored to represent ileus although obstruction could appear similarly. Dictated by: Ana Masters M.D. The radiology attending physician has personally reviewed this study, and had reviewed and/or edited this written report and agrees with it. Electronically signed by: Jared Peck M.D. Narrative 08/16/2024 10:37 AM CDT EXAMINATION: Abdomen, one view. HISTORY: Abdominal pain. COMPARISON: None Procedure Note Jared Peck MD - 08/16/2024 EXAMINATION: Abdomen, one view. HISTORY: Abdominal pain. COMPARISON: None IMPRESSION: Cortez catheter temperature probe projects over the pelvis. Pulmonary artery catheter partially imaged. There are dilated, gas-filled loops of small bowel with scattered gas throughout the colon, favored to represent ileus although obstruction could appear similarly. Dictated by: Ana Masters M.D. The radiology attending physician has personally reviewed this study, and had reviewed and/or edited this written report and agrees with it. Electronically signed by: Jared Peck M.D. Wenceslao Reina MD IMG XR PROCEDURES Final Resu lt * XR Chest 1 View (08/15/2024 12:35 PM CDT) Anatomical Region Laterality Modality Body, Chest N/A Computed Radiogr aphy 08/16/2024 9:53 AM CDT Impressions 08/16/2024 9:53 AM CDT 1. No prior examination available for comparison. A right peripherally inserted central venous catheter tip is in the right atrium. Howe-Micah catheter tip overlies the main pulmonary artery. There is no pneumonic consolidation or pneumothorax. 2. Comparison is made to prior examination from the same date. The Howe-Micah catheter tip is now located in the proximal left pulmonary artery. There is otherwise no significant interval change. Electronically signed by: Roman Carmona M.D. Narrative 08/16/2024 9:53 AM CDT EXAMINATION: 1 view chest radiograph Procedure Note Roman Carmona MD - 08/16/2024 EXAMINATION: 1 view chest radiograph IMPRESSION: 1. No prior examination available for comparison. A right peripherally inserted central venous catheter tip is in the right atrium. Howe-Micah catheter tip overlies the main pulmonary artery. There is no pneumonic consolidation or pneumothorax. 2. Comparison is made to prior examination from the same date. The Howe-Micah catheter tip is now located in the proximal left pulmonary artery. There is otherwise no significant interval change. Electronically signed by: Roman Carmona M.D. Wenceslao Reina MD IMG XR PROCEDURES Final Resu lt * (ABNORMAL) Troponin I high-sensitivity 6-hour (08/15/2024 12:32 PM CDT) Trop I hs 105(H) <=35 ng/L Comment: Previous critical value noted within 48 hours ago. Interpretive Data For further hscTnI resources including the diagnostic algorithm and an aid in interpretation, copy and paste this link: https://bjhlab.testcatalog.org/show/hsTrop-1 Current Interpretive Data last revised 2019. Trop I hs delta 54(C) ng/L [facility] Comment:Previous critical va lue noted within 48 hours ago. Trop I hs interp Significa nt(C) [facility] Comment:Previous critical va lue noted within 48 hours ago. Blood 08/15/2024 12:3 2 PM CDT 08/15/2024 12:45 PM CDT Wenceslao Reina MD LAB BLOOD ORDERABLES Final R esult Performing Organization Address City/[facility]/ZIP Co de Phone Number [facility] [place] [place] [address] * Oxyhemoglobin, pulmonary artery (08/15/2024 12:32 PM CDT) Pathologist [facility] Oxyhemoglobin, PA 72.8 % Comment: Interpretive Data No reference range established. Current interpretive data was last revised 2019. Blood 08/15/2024 12:3 2 PM CDT 08/15/2024 12:44 PM CDT Wenceslao Reina MD LAB BLOOD ORDERABLES Final R esult [facility] [place] [employer] [place] [address] * (ABNORMAL) Hemoglobin total, pulmonary artery (08/15/2024 12:32 PM CDT) Hemoglobin total, PA 10.4(L) 13.0 - 17.5 g/dL Blood 08/15/2024 12:3 2 PM CDT 08/15/2024 12:44 PM CDT us Jose J Tolbert MD LAB BLOOD ORDERABLES Final Result Performing Organization Address [facility] Co de Phone Number COR[facility] [place] [address] * eGFR (08/15/2024 12:32 PM CDT) eGFR >90 >=60 mL/min/1. 73 m2 Comment: Interpretive Data Reference Interval Normal >/= 90 mL/min/1.73m2 Mildly decreased* 60 - 89 mL/min/1.73m2 Mildly to moderately decreased 45 - 59 mL/min/1.73m2 Moderately to severely decreased 30 - 44 mL/min/1.73m2 Severely decreased 15 - 29 mL/min/1.73m2 Kidney Failure < 15 mL/min/1.73m2 *Relative to young adult level Estimated glomerular filtration rate is determined by the 2020 CKD-EPI equation recommended by the National Kidney Foundation (A Unifying Approach to GFR Estimation: Recommendations of the NKF-ASK Task Force on Reassessing the Inclusion of Race in Diagnosing Kidney Disease, JASN 2020). The CKD-EPI equation should not be used for patients with unstable renal function and has not been validated in children and those over 70. Current interpretive data was last reviewed 2021. Blood 08/15/2024 12:3 2 PM CDT 08/15/2024 12:45 PM CDT us Wenceslao Reina MD LAB BLOOD ORDERABLES Final R esult Performing Organization Address City/[facility]/ZIP Co de Phone Number [facility] [place] [address] * (ABNORMAL) Calcium, ionized (08/15/2024 12:32 PM CDT) Calcium, Ionized 5.14(H) 4.50 - 5.10 mg/dL Blood 08/15/2024 12:3 2 PM CDT 08/15/2024 12:55 PM CDT Wenceslao Reina MD LAB BLOOD ORDERABLES Final R esult Performing Organization Address [facility] Co de Phone Number [facility] [place] [address] * (ABNORMAL) Phosphorus (08/15/2024 12:32 PM CDT) Pathologist [facility] Phosphorus, pl 0.9(L) 2.3 - 4.5 mg/dL Blood 08/15/2024 12:3 2 PM CDT 08/15/2024 12:45 PM CDT Wenceslao Reina MD LAB BLOOD ORDERABLES Final R esult Performing Organization Address [facility] Co de Phone Number [facility] Department [place] [address] * Magnesium (08/15/2024 12:32 PM CDT) [facility] Magnesium 2.4 1.4 - 2.5 mg/dL Blood 08/15/2024 12:3 2 PM CDT 08/15/2024 12:45 PM CDT Wenceslao Reina MD LAB BLOOD ORDERABLES Final R esult Performing Organization Address [facility] Co de Phone Number [facility] [place] [address] * (ABNORMAL) Basic metabolic panel (08/15/2024 12:32 PM CDT) Pathologist [facility] Sodium 133(L) 135 - 145 mmol/L Potassium, pl 4.2 3.3 - 4.9 mmol/L [facility] Chloride 90(L) 97 - 110 mmol/L [facility] CO2 33(H) 22 - 32 mmol/L [facility] Comment:Reviewed Anion gap 10 2 - 15 mmol/L [facility] Comment:Reviewed BUN 15 6 - 25 mg/dL [facility] Creatinine 0.97 0.80 - 1.30 mg/dL [facility] Glucose 144 70 - 199 mg/dL [facility] Comment: Interpretive Data Fasting glucose >/= 126 mg/dl is diagnostic for diabetes. Fasting is defined as no caloric intake for at least 8 hours. Fasting glucose between 100 mg/dl to 125 mg/dl is diagnostic of prediabetes. In a patient with classic symptoms of hyperglycemia or hyperglycemic crisis, a random glucose >/= 200 mg/dl is diagnostic for diabetes. In the absence of unequivocal hyperglycemia, results should be confirmed by repeat testing. The classification and Diagnosis of Diabetes Diabetes Care 2021; 46: S19-S40. Current interpretive data was last revised 2022. Calcium 10.5(H) 8.5 - 10.3 mg/dL [facility] Blood 08/15/2024 12:3 2 PM CDT 08/15/2024 12:45 PM CDT us Wenceslao Reina MD LAB BLOOD ORDERABLES Final R esult Performing Organization Address City/[facility]/ZIP Co de Phone Number [facility] [employer] [place] [address] * POCT glucose (08/15/2024 11:57 AM CDT) Glucose, POC 165 70 - 199 mg/dL Blood 08/15/2024 11:5 7 AM CDT 08/15/2024 11:57 AM CDT us Wenceslao Reina MD LAB POCT ORDERABLES - DEVICE Final Result [facility] [place] [place] [address] * (ABNORMAL) Troponin I high-sensitivity 4-hour (08/15/2024 10:58 AM CDT) Trop I hs 76(H) <=35 ng/L Comment: Previous critical value noted within 48 hours ago. Interpretive Data For further hscTnI resources including the diagnostic algorithm and an aid in interpretation, copy and paste this link: https://bjhlab.testcatalog.org/show/hsTrop-1 Current Interpretive Data last revised 2019. Trop I hs delta 25(C) ng/L [facility] Comment:Previous critical va lue noted within 48 hours ago. Trop I hs interp Significa nt(C) [facility] Comment:Previous critical va lue noted within 48 hours ago. Blood 08/15/2024 10:5 8 AM CDT 08/15/2024 11:06 AM CDT us Wenceslao Reina MD LAB BLOOD ORDERABLES Final R esult Performing Organization Address [facility] Co de Phone Number [facility] Department [place] [address] * Oxyhemoglobin, central venous (08/15/2024 10:58 AM CDT) Oxyhemoglobin, CV 71.6 % Comment: Interpretive Data No reference range established. Current interpretive data was last revised 2019. Blood 08/15/2024 10:5 8 AM CDT 08/15/2024 11:06 AM CDT us Wenceslao Reina MD LAB BLOOD ORDERABLES Final R esult Performing Organization Address City/[facility] Co de Phone Number [facility] [employer] [place] [place] [address] * (ABNORMAL) Hemoglobin total, pulmonary artery (08/15/2024 10:58 AM CDT) Hemoglobin total, PA 9.8(L) 13.0 - 17.5 g/dL Blood 08/15/2024 10:5 8 AM CDT 08/15/2024 11:06 AM CDT us Wenceslao Reina MD LAB BLOOD ORDERABLES Final R esult Performing Organization Address [facility] Co de Phone Number [facility] [place] [address] * Lactate, whole blood (08/15/2024 10:58 AM CDT) Lactate, bld 1.8 0.7 - 2.0 mmol/L Blood 08/15/2024 10:5 8 AM CDT 08/15/2024 11:06 AM CDT us Wenceslao Reina MD LAB BLOOD ORDERABLES Final R esult Performing Organization Address [facility] Co de Phone Number [facility] [place] [address] * POCT glucose (08/15/2024 10:51 AM CDT) Glucose, POC 165 70 - 199 mg/dL Blood 08/15/2024 10:5 1 AM CDT 08/15/2024 10:51 AM CDT us Wenceslao Reina MD LAB POCT ORDERABLES - DEVICE Final Result Performing Organization Address [facility] Co de Phone Number [facility] [place] [address] * [place] INSJ NON-TUNNELED CENTRAL VENOUS CATH AGE 5 YR/> (08/15/2024 9:58 AM CDT) Narrative Wenceslao Reina MD - 08/15/2024 9:58 AM CDT Wenceslao Reina MD 08/15/2024 3:12 PM Central Line Insertion- SGC Date/Time: 08/15/2024 9:58 AM Performed by: Ngozi Tamez MD Authorized by: Wenceslao Reina MD [place] Protocol: RN Notified of Procedure: yes Patient identity confirmation method: Verbal Consent. Allergies confirmed: yes Consent form signed, dated, timed; matches correct patient, intended procedure and site: YesImmediately prior to the procedure a time out was called: a verbal verification by the procedure participants confirmed correct patient identity, correct site/side marked and visible (if applicable); agreement on procedure to be done; and correct patient positioning Indications: Central pressure monitoring Anesthesia (see MAR for exact dosage) Anesthesia method: Local infiltration Local anesthetic: Lidocaine 1% Patient position: Flat Location: Right internal jugular Ultrasound guidance: Real-time needle guidance Procedural supplies: [facility]. Needle inserted, vein idenitified then guidewire inserted easily into vein: Yes Successful placement: Yes Patient tolerance: Patient tolerated the procedure well with no immediate complications us Wenceslao Reina MD IN CLINIC/BEDSIDE ORDERABLES Final Result * (ABNORMAL) POC Blood Gas and Chemistries, Arterial - (08/15/2024 9:57 AM CDT) pH, Art POC 7.36 7.35 - 7.45 pCO2, Art POC 25(L) 35 - 45 mmHg [facility] pO2, Art POC 83 83 - 108 mmHg [facility] Na, POC 130(L) 135 - 145 mmol/L [facility] K POC 4.6 3.3 - 4.9 mmol/L [facility] Comment: Interpretive Data Not all point of care methods assess for hemolysis. Confirm with instrument and retest K+ if not consistent with clinical signs and symptoms. Current Interpretive Data was last revised on 2023. Cl, POC 93(L) 97 - 110 mmol/L [facility] Ionized Ca, POC 6.02(H) 4.50 - 5.10 mg/dL [facility] Glucose, POC 253(H) 70 - 199 mg/dL [facility] Lactate, POC 2.4(H) 0.7 - 2.0 mmol/L [facility] SO2 (fabiana) arterial 98(H) 90 - 95 % [facility] Base excess, POC -10.0 mmol/L [facility] HCO3, Art POC 14(L) 20 - 30 mmol/L [facility] Hct, POC 29.0(L) 41.4 - 51.6 % [facility] Total Hb, POC 9.7(L) 13.8 - 17.2 g/dL [facility] Blood 08/15/2024 9:57 AM CDT 08/15/2024 9:57 AM CDT Wenceslao Reina MD LAB POCT ORDERABLES - DEVICE Final Result Performing Organization Address [facility]/ZIP Co de Phone Number [facility] [place] [address] * (ABNORMAL) Urinalysis reflex to microscopic and culture Urine (08/15/2024 9:56 AM CDT) Color, ur Straw Yellow Clarity, ur Clear Clear [facility] Specific gravity, ur 1.008 1.003 - 1.030 [facility] pH, urine 6.0 [facility] Comment: Interpretive Data U rine pH is affected by diet, medications, systemic acid-base disturbances, and renal tubular function. pH may affect urinary stone formation. For example, urine pH below 6.0 may help reduce the tendency for calcium phosphate stones and pH greater than 6.0 may reduce the tendency for uric acid stone formation. Source: [facility] Current Interpretive Data was last revised on 2017 Protein, ur ql Negative Negative [facility] Glucose, ur ql 3+(A) Negative [facility] Ketones, ur 1+(A) Negative [facility] Bilirubin, ur Negative Negative [facility] Blood, ur 2+(A) Negative [facility] Urobilinogen, ur <2.0 <2.0 mg/dL [facility] Nitrite, ur Negative Negative [facility] Leukocyte esterase, ur Negative Negative [facility] UA reflex comment Reflex to microscopic UA will be performed. [facility] Urine 08/15/2024 9:56 AM CDT 08/15/2024 10:15 AM CDT us Wenceslao Reina MD LAB MICROBIOLOGY - GENERAL O RDERABLES Final Result Performing Organization Address City/[facility]/ZIP Co de Phone Number [facility] Department [place] [address] * (ABNORMAL) Urinalysis, microscopic only (08/15/2024 9:56 AM CDT) WBC, ur 0-5 0 - 5 /HPF RBC, ur 0-2 0 - 2 /HPF [facility] Epithelial cells, squamous, ur 1-5 0 - 5 /HPF [facility] Bacteria, ur Trace(A) [facility] Mucous, ur Present(A) [facility] Culture Reflex Comment Reflex conditions for urine culture (WBC >10) not met. [facility] Urine 08/15/2024 9:56 AM CDT 08/15/2024 10:15 AM CDT us Wenceslao Reina MD LAB URINE ORDERABLES Final R esult Performing Organization Address City/State/[facility] Co de Phone Number [facility] [place] [address] * [place] ARTL CATHJ/CANNULJ MNTR/TRANSFUSION SPX PRQ (08/15/2024 9:53 AM CDT) Narrative Wenceslao Reina MD - 08/15/2024 9:53 AM CDT Wenceslao Reina MD 08/15/2024 3:12 PM Arterial Line Insertion Date/Time: 08/15/2024 9:53 AM Performed by: Ngozi Tamez MD Authorized by: Wenceslao Reina MD [place] Protocol: RN Notified of Procedure: yes Informed consent: Risks, benefits, alternatives discussed Patient's stated name/ matches armband: Yes Allergies confirmed: yes Procedure verified: Verbal Consent. Location: Left axillary Anesthesia: Local infiltration Local anesthetic: Lidocaine 1% Patient skin preparation: chlorhexidine Ultrasound guidance: Real-time needle guidance Single percutaneous needle puncture: Yes Post-procedure: Line sutured Patient tolerance: Patient tolerated the procedure well with no immediate complications us Wenceslao Reina MD IV THERAPY ORDERABLES Final Result * (ABNORMAL) POCT glucose (08/15/2024 9:26 AM CDT) Glucose, POC 218(H) 70 - 199 mg/dL Blood 08/15/2024 9:26 AM CDT 08/15/2024 9:26 AM CDT us Wenceslao Reina MD LAB POCT ORDERABLES - DEVICE Final Result Performing Organization Address City/[facility] Co de Phone Number [facility] [place] [place] [address] * eGFR (08/15/2024 8:38 AM CDT) eGFR 77 >=60 mL/min/1. 73 m2 Comment: Interpretive Data Reference Interval Normal >/= 90 mL/min/1.73m2 Mildly decreased* 60 - 89 mL/min/1.73m2 Mildly to moderately decreased 45 - 59 mL/min/1.73m2 Moderately to severely decreased 30 - 44 mL/min/1.73m2 Severely decreased 15 - 29 mL/min/1.73m2 Kidney Failure < 15 mL/min/1.73m2 *Relative to young adult level Estimated glomerular filtration rate is determined by the 2020 CKD-EPI equation recommended by the National Kidney Foundation (A Unifying Approach to GFR Estimation: Recommendations of the NKF-ASK Task Force on Reassessing the Inclusion of Race in Diagnosing Kidney Disease, JASN 2020). The CKD-EPI equation should not be used for patients with unstable renal function and has not been validated in children and those over 70. Current interpretive data was last reviewed 2021. Blood 08/15/2024 8:38 AM CDT 08/15/2024 8:57 AM CDT us Kayleigh Avila MD LAB BLOOD ORDERABLES F inal Result Performing Organization Address City/[facility]/ZIP Co de Phone Number [facility] [place] [place] [address] * Critical Result Callback Chemistry (08/15/2024 8:38 AM CDT) Date Notified 20240815 Time Notified 942 [facility] TestName Anion Gap [facility] Called/Read Back Beth [facility] Credentials RN [facility] Called By [facility] Blood 08/15/2024 8:38 AM CDT 08/15/2024 8:57 AM CDT us Kayleigh Avila MD LAB BLOOD ORDERABLES F inal Result [facility] Department [place] [address] * (ABNORMAL) Comprehensive metabolic panel (08/15/2024 8:38 AM CDT) Sodium 132(L) 135 - 145 mmol/L Potassium, pl 4.6 3.3 - 4.9 mmol/L [facility] Chloride 89(L) 97 - 110 mmol/L [facility] CO2 14(L) 22 - 32 mmol/L [facility] Anion gap 29(C) 2 - 15 mmol/L [facility] Comment:Reviewed BUN 19 6 - 25 mg/dL [facility] Creatinine 1.25 0.80 - 1.30 mg/dL [facility] Glucose 266(H) 70 - 199 mg/dL [facility] Comment: Interpretive Data Fasting glucose >/= 126 mg/dl is diagnostic for diabetes. Fasting is defined as no caloric intake for at least 8 hours. Fasting glucose between 100 mg/dl to 125 mg/dl is diagnostic of prediabetes. In a patient with classic symptoms of hyperglycemia or hyperglycemic crisis, a random glucose >/= 200 mg/dl is diagnostic for diabetes. In the absence of unequivocal hyperglycemia, results should be confirmed by repeat testing. The classification and Diagnosis of Diabetes Diabetes Care 202; 46: S19-S40. Current interpretive data was last revised 2022. Calcium 10.8(H) 8.5 - 10.3 mg/dL [facility] Comment:Repeated and Verifie d Bilirubin, total 0.4 0.1 - 1.2 mg/dL [facility] Protein, pl 5.8(L) 6.5 - 8.5 g/dL [facility] Albumin 3.8 3.5 - 5.0 g/dL [facility] Alk phos 59 40 - 130 Units/L [facility] ALT 49 7 - 55 Units/L [facility] AST 94(H) 10 - 50 Units/L [facility] Blood 08/15/2024 8:38 AM CDT 08/15/2024 8:57 AM CDT Kayleigh Avila MD LAB BLOOD ORDERABLES F inal Result Performing Organization Address [facility] Co de Phone Number [facility] [place] [address] * (ABNORMAL) Troponin I high-sensitivity 2-hour (08/15/2024 8:29 AM CDT) Trop I hs 66(H) <=35 ng/L Comment: Interpretive Data For further hscTnI resources including the diagnostic algorithm and an aid in interpretation, copy and paste this link: https://bjhlab.testcatalog.org/show/hsTrop-1 Current Interpretive Data last revised 2019. Trop I hs delta 15(C) ng/L [facility] Comment:Reviewed Trop I hs interp Significa nt(C) [facility] Comment:Reviewed Blood 08/15/2024 8:29 AM CDT 08/15/2024 8:57 AM CDT us Wenceslao Reina MD LAB BLOOD ORDERABLES Final R esult Performing Organization Address City/[facility]/ZIP Co de Phone Number [facility] Department [place] [address] * Oxyhemoglobin, central venous (08/15/2024 8:29 AM CDT) Oxyhemoglobin, CV 75.8 % Comment: Interpretive Data No reference range established. Current interpretive data was last revised 2019. Blood 08/15/2024 8:29 AM CDT 08/15/2024 8:47 AM CDT us Wenceslao Reina MD LAB BLOOD ORDERABLES Final R esult [facility] [place] [address] * Critical result callback Cardio chemistry (08/15/2024 8:29 AM CDT) Date Notified 20240815 Time Notified 09 [facility] Test name Trop I hs 2hr delta [facility] Called/Read Back Beth [facility] Credentials RN [facility] Called By ra [facility] Blood 08/15/2024 8:29 AM CDT 08/15/2024 8:57 AM CDT us Wenceslao Reina MD LAB BLOOD ORDERABLES Final R esult Performing Organization Address City/[facility]/ZIP Co de Phone Number [facility] [place] [address] * Critical Result Callback Chemistry (08/15/2024 8:29 AM CDT) Date Notified 20240815 Time Notified 0858 [facility] TestName Lactate Whole Blood [facility] Called/Read Back Kimmy [facility] Credentials RN [facility] Called By LISA [facility] Blood 08/15/2024 8:29 AM CDT 08/15/2024 8:48 AM CDT us Wenceslao Reina MD LAB BLOOD ORDERABLES Final R esult Performing Organization Address City/[facility]/ZIP Co de Phone Number [facility] [place] [address] * (ABNORMAL) Lactate, whole blood (08/15/2024 8:29 AM CDT) Pathologist [facility] Lactate, bld 4.2(C) 0.7 - 2.0 mmol/L Comment:Reviewed Blood 08/15/2024 8:29 AM CDT 08/15/2024 8:48 AM CDT Wenceslao Reina MD LAB BLOOD ORDERABLES Final R esult Performing Organization Address City/[facility] Co de Phone Number [facility] [place] [address] * (ABNORMAL) Beta-hydroxybutyrate (08/15/2024 7:42 AM CDT) Pathologist [facility] Beta-Hydroxybut yrate 4.2(H) 0.0 - 0.5 mmol/L Blood 08/15/2024 7:42 AM CDT 08/15/2024 7:48 AM CDT Wenceslao Reina MD LAB BLOOD ORDERABLES Final R esult Performing Organization Address City/[facility] Co de Phone Number [facility] [place] [employer] [place] [address] * Blood culture Blood (08/15/2024 7:41 AM CDT) Pathologist [facility] Report Final Report: No growth Blood 08/15/2024 7:41 AM CDT 08/15/2024 8:49 AM CDT Narrative [facility] - 08/19/2024 12:00 PM CDT From a different site than #1. Collection->Peripheral 1. Blood cultures are incubated for 4 days on a continuously monitored blood culture system. The first report of a negative culture is issued within 24 hours of receipt of the specimen in the laboratory. 2. Positive culture results are reported as soon as they are detected. 3. The most important factor for detection of microbes in the setting of bloodstream infection is the volume of blood submitted for culture. Failure to collect an optimal blood volume can result in false negative blood cultures. 4. For pediatric patients, the recommended blood volume to collect follows a weight based strategy. See the electronic test catalog for collection instructions. 5. For positive blood cultures, a rapid molecular test may be performed for organism identification using the james ePlex blood culture identification panel for gram positive (BCID-GP) and gram negative (BCID-GN) organisms. This nucleic acid amplification test detects microbial DNA in positive blood culture broth. This assay has been cleared by the [place] Food and Drug Administration and its performance characteristics have been verified by the [facility]. For questions about this culture, contact the Microbiology Laboratory at [phone]. Interpretive data was last revised on 24. Wenceslao Reina MD LAB MICROBIOLOGY - GENERAL O RDERABLES Final Result [facility] [place] [address] * Blood culture Blood (08/15/2024 7:41 AM CDT) Report Final Report: No growth Blood 08/15/2024 7:41 AM CDT 08/15/2024 7:52 AM CDT Narrative [facility] - 08/19/2024 12:00 PM CDT Collection->Peripheral 1. Blood cultures are incubated for 4 days on a continuously monitored blood culture system. The first report of a negative culture is issued within 24 hours of receipt of the specimen in the laboratory. 2. Positive culture results are reported as soon as they are detected. 3. The most important factor for detection of microbes in the setting of bloodstream infection is the volume of blood submitted for culture. Failure to collect an optimal blood volume can result in false negative blood cultures. 4. For pediatric patients, the recommended blood volume to collect follows a weight based strategy. See the electronic test catalog for collection instructions. 5. For positive blood cultures, a rapid molecular test may be performed for organism identification using the james ePlex blood culture identification panel for gram positive (BCID-GP) and gram negative (BCID-GN) organisms. This nucleic acid amplification test detects microbial DNA in positive blood culture broth. This assay has been cleared by the [place] Food and Drug Administration and its performance characteristics have been verified by the [facility]. For questions about this culture, contact the Microbiology Laboratory at [phone]. Interpretive data was last revised on 24. us Wenceslao Reina MD LAB MICROBIOLOGY - GENERAL O RDERABLES Final Result [facility] [place] [address] * (ABNORMAL) POC Blood Gas and Chemistries, Arterial - (08/15/2024 7:38 AM CDT) pH, Art POC 7.18(C) 7.35 - 7.45 pCO2, Art POC 26(L) 35 - 45 mmHg [facility] pO2, Art POC 97 83 - 108 mmHg [facility] Na, POC 127(L) 135 - 145 mmol/L [facility] K POC 4.8 3.3 - 4.9 mmol/L [facility] Comment: Interpretive Data Not all point of care methods assess for hemolysis. Confirm with instrument and retest K+ if not consistent with clinical signs and symptoms. Current Interpretive Data was last revised on 2023. Cl, POC 93(L) 97 - 110 mmol/L [facility] Ionized Ca, POC 6.73(H) 4.50 - 5.10 mg/dL [facility] Glucose, POC 301(H) 70 - 199 mg/dL [facility] Lactate, POC 4.2(C) 0.7 - 2.0 mmol/L [facility] SO2 (fabiana) arterial 98(H) 90 - 95 % [facility] Base excess, POC -17.2 mmol/L [facility] HCO3, Art POC 10(C) 20 - 30 mmol/L [facility] Hct, POC 26.0(L) 41.4 - 51.6 % [facility] Total Hb, POC 8.8(L) 13.8 - 17.2 g/dL [facility] Blood 08/15/2024 7:38 AM CDT 08/15/2024 7:38 AM CDT us Wenceslao Reina MD LAB POCT ORDERABLES - DEVICE Final Result Performing Organization Address [facility] Co de Phone Number [facility] [place] [address] * Check Sample (08/15/2024 6:50 AM CDT) ABO Rh A Positive [facility] OTHER 08/15/2024 6:50 AM CDT 08/15/2024 7:00 AM CDT us Wenceslao Reina MD LAB BLOOD ORDERABLES Final R esult Performing Organization Address [facility] de Phone Number [facility] [place] [address] [facility] * (ABNORMAL) Calcium, ionized (08/15/2024 6:50 AM CDT) Calcium, Ionized 3.68(L) 4.50 - 5.10 mg/dL Blood 08/15/2024 6:50 AM CDT 08/15/2024 6:57 AM CDT us Wenceslao Reina MD LAB BLOOD ORDERABLES Final R esult Performing Organization Address [facility] de Phone Number [facility] [place] [employer] [place] [address] * aPTT (08/15/2024 6:50 AM CDT) aPTT 30 28 - 38 sec Comment: Interpretive Data Heparin therapeutic range: 66.0 - 100.0 seconds. Range based on correlation with therapeutic heparin activity range of 0.3 - 0.7 Units/mL. Current interpretive data was last revised on 2023. Blood 08/15/2024 6:50 AM CDT 08/15/2024 6:57 AM CDT Wenceslao Reina MD LAB BLOOD ORDERABLES Final R esult Performing Organization Address [facility] Co de Phone Number [facility] [place] [employer] [place] [address] * Protime-INR (08/15/2024 6:50 AM CDT) PT 10.4 9.7 - 13.0 sec INR 0.96 0.90 - 1.20 [facility] Comment: Interpretive data Oral anticoagulant therapeutic ranges: Venous thromboembolism prophylaxis or treatment: 2.0-3.0 CARDIOLOGY Standard range: 2.0-3.0 High-intensity range: 2.5-3.5 Refer to indication-specific guidelines for appropriate target ranges for prosthetic heart valve replacement. Current interpretive data was last revised on 2019. Blood 08/15/2024 6:50 AM CDT 08/15/2024 6:57 AM CDT Wenceslao Reina MD LAB BLOOD ORDERABLES Final R esult Performing Organization Address [facility] Co de Phone Number [facility] [place] [employer] [place] [address] * Type and screen (08/15/2024 6:29 AM CDT) John, indirect Negative ABO Rh A Positive [facility] Blood 08/15/2024 6:29 AM CDT 08/15/2024 6:44 AM CDT Narrative [facility] - 08/15/2024 7:32 AM CDT Has the patient had Daratumumab or Isatuximab in the past 6 months?->Unknown Wenceslao Reina MD LAB BLOOD BANK TEST ORDERABL ES Final Result Performing Organization Address [facility] Co de Phone Number [facility] [place] [employer] [place] [address] * (ABNORMAL) Troponin I high-sensitivity series (baseline, 2hr, 4hr, 6hr) (08/15/2024 6:26 AM CDT) Trop I hs 51(H) <=35 ng/L Comment: Interpretive Data For further hscTnI resources including the diagnostic algorithm and an aid in interpretation, copy and paste this link: [email or web address].testcatalog.org/[email or web address] Current Interpretive Data last revised 2019. Blood 08/15/2024 6:26 AM CDT 08/15/2024 6:47 AM CDT us Wenceslao Reina MD LAB BLOOD ORDERABLES Final R esult [facility] [facility] [place] [address] * eGFR (08/15/2024 6:26 AM CDT) eGFR 70 >=60 mL/min/1. 73 m2 Comment: Interpretive Data Reference Interval Normal >/= 90 mL/min/1.73m2 Mildly decreased* 60 - 89 mL/min/1.73m2 Mildly to moderately decreased 45 - 59 mL/min/1.73m2 Moderately to severely decreased 30 - 44 mL/min/1.73m2 Severely decreased 15 - 29 mL/min/1.73m2 Kidney Failure < 15 mL/min/1.73m2 *Relative to young adult level Estimated glomerular filtration rate is determined by the 2020 CKD-EPI equation recommended by the National Kidney Foundation (A Unifying Approach to GFR Estimation: Recommendations of the NKF-ASK Task Force on Reassessing the Inclusion of Race in Diagnosing Kidney Disease, JASN 2020). The CKD-EPI equation should not be used for patients with unstable renal function and has not been validated in children and those over 70. Current interpretive data was last reviewed 2021. Blood 08/15/2024 6:26 AM CDT 08/15/2024 6:40 AM CDT us Wenceslao Reina MD LAB BLOOD ORDERABLES Final R esult [facility] [place] [address] * (ABNORMAL) Differential, auto (08/15/2024 6:26 AM CDT) Neutrophil abs 7.40(H) 1.50 - 6.50 K/cumm Imm gran abs 0.06 0.00 - 0.10 K/cumm [facility] Lymphocyte abs 0.81 0.80 - 3.30 K/cumm [facility] Monocyte abs 1.85(H) 0.20 - 0.80 K/cumm [facility] Eosinophil abs 0.03 0.00 - 0.50 K/cumm [facility] Basophil abs 0.01 0.00 - 0.10 K/cumm [facility] Neutrophil pct 72.8 % [facility] Comment: Interpretive Data Percent cell count reference ranges are not reported, since discordance with absolute values may lead to misinterpretation of CBC data. Current Interpretive Data was last revised on 2017. Imm gran pct 0.6 % [facility] Comment: Interpretive Data Percent cell count reference ranges are not reported, since discordance with absolute values may lead to misinterpretation of CBC data. Current Interpretive Data was last revised on 2017. Lymphocyte pct 8.0 % [facility] Comment: Interpretive Data Percent cell count reference ranges are not reported, since discordance with absolute values may lead to misinterpretation of CBC data. Current Interpretive Data was last revised on 2017. Monocyte pct 18.2 % [facility] Comment: Interpretive Data Percent cell count reference ranges are not reported, since discordance with absolute values may lead to misinterpretation of CBC data. Current Interpretive Data was last revised on 2017. Eosinophil pct 0.3 % [facility] Comment: Interpretive Data Percent cell count reference ranges are not reported, since discordance with absolute values may lead to misinterpretation of CBC data. Current Interpretive Data was last revised on 2017. Basophil pct 0.1 % [facility] Comment: Interpretive Data Percent cell count reference ranges are not reported, since discordance with absolute values may lead to misinterpretation of CBC data. Current Interpretive Data was last revised on 2017. Blood 08/15/2024 6:26 AM CDT 08/15/2024 6:49 AM CDT us Wenceslao Reina MD LAB BLOOD ORDERABLES Final R esult Performing Organization Address [facility] Co de Phone Number [facility] [place] [address] * Critical Result Callback Chemistry (08/15/2024 6:26 AM CDT) Date Notified 20240815 Time Notified 901 [facility] TestName Calcium, Anion Gap, CO2 Totl [facility] Called/Read Back Wenceslao BOB Credentials MADHURI JETER [facility] Called By ra [facility] Blood 08/15/2024 6:26 AM CDT 08/15/2024 6:40 AM CDT us Wenceslao Reina MD LAB BLOOD ORDERABLES Final R esult Performing Organization Address [facility] Co de Phone Number [facility] [place] [address] * Critical Result Callback Chemistry (08/15/2024 6:26 AM CDT) Date Notified [id number] Time Notified 720 [facility] TestName Lactate Whole Blood, pH Robbin, HCO3 Robbin (Calc) [place] [facility] Called/Read Back Hiral Regan Credentials MADHURI JETER [facility] Called By LISA BOB Blood 08/15/2024 6:26 AM CDT 08/15/2024 6:40 AM CDT us Wenceslao Reina MD LAB BLOOD ORDERABLES Final R esult Performing Organization Address [facility] de Phone Number [facility] [place] [address] * (ABNORMAL) CBC with auto differential (08/15/2024 6:26 AM CDT) [facility] WBC 10.16(H) 3.80 - 9.90 K/cumm Hgb 8.5(L) 13.0 - 17.5 g/dL [facility] Hct 26.2(L) 38.9 - 50.3 % [facility] Plt 240 150 - 400 K/cumm [facility] MPV 9.2 9.1 - 12.3 fL [facility] RBC 2.89(L) 4.30 - 5.80 M/cumm [facility] MCV 90.7 81.3 - 96.4 fL [facility] MCH 29.4 27.1 - 33.3 pg [facility] MCHC 32.4 32.3 - 35.7 g/dL [facility] RDW CV 15.4(H) 11.1 - 14.9 % [facility] RDW SD 51.3(H) 35.7 - 48.1 fL [facility] NRBC abs 0.00 0.00 - 0.01 K/cumm [facility] Blood 08/15/2024 6:26 AM CDT 08/15/2024 6:49 AM CDT Wenceslao Reina MD LAB BLOOD ORDERABLES Final R esult Performing Organization Address City/[facility] Co de Phone Number [facility] [place] [address] * (ABNORMAL) Lactate, whole blood (08/15/2024 6:26 AM CDT) [facility] Lactate, bld 4.6(C) 0.7 - 2.0 mmol/L Comment:Repeated and verifie d. Blood 08/15/2024 6:26 AM CDT 08/15/2024 6:40 AM CDT Wenceslao Reina MD LAB BLOOD ORDERABLES Final R esult Performing Organization Address [facility] Co de Phone Number [facility] [place] [address] * (ABNORMAL) TSH (08/15/2024 6:26 AM CDT) Thyroid Stimulating Hormone 0.05(L) 0.30 - 4.20 mcIUnit/mL Blood 08/15/2024 6:26 AM CDT 08/15/2024 6:40 AM CDT Wenceslao Reina MD LAB BLOOD ORDERABLES Final R esult Performing Organization Address [facility] Co de Phone Number [facility] [place] [address] * Phosphorus (08/15/2024 6:26 AM CDT) Phosphorus, pl 2.4 2.3 - 4.5 mg/dL Comment:Repeated and verifie d. Blood 08/15/2024 6:26 AM CDT 08/15/2024 6:40 AM CDT Wenceslao Reina MD LAB BLOOD ORDERABLES Final R esult Performing Organization Address [facility] Co de Phone Number [facility] [place] [address] * Magnesium (08/15/2024 6:26 AM CDT) Magnesium 1.7 1.4 - 2.5 mg/dL Comment:Repeated and verifie d. Blood 08/15/2024 6:26 AM CDT 08/15/2024 6:40 AM CDT Wenceslao Reina MD LAB BLOOD ORDERABLES Final R esult Performing Organization Address [facility] Co de Phone Number [facility] [place] [employer] [place] [address] * Lipase (08/15/2024 6:26 AM CDT) Lipase 38 10 - 99 Units/L Blood 08/15/2024 6:26 AM CDT 08/15/2024 6:40 AM CDT Wenceslao Reina MD LAB BLOOD ORDERABLES Final R esult Performing Organization Address [facility] [place] [address] * (ABNORMAL) Hemoglobin A1c (08/15/2024 6:26 AM CDT) [facility] Hgb A1C 5.9(H) 4.0 - 5.6 % Estimated Average Glucose 123 mg/dL [facility] Comment: The ADA recommends reporting an estimated Average Glucose (eAG) with all Hemoglobin A1c results using the equation derived from a study of 507 normal and diabetic adults. Minority populations were underrepresented and children were not included. (Diabetes Care 2020; 43(S1): S66-S76). The eAG is not equivalent to a fasting glucose. Blood 08/15/2024 6:26 AM CDT 08/15/2024 6:57 AM CDT Wenceslao Reina MD LAB BLOOD ORDERABLES Final R [facility] Performing Organization Address [facility] Co de Phone Number [facility] [place] [place] [address] * (ABNORMAL) Blood gas, venous (08/15/2024 6:26 AM CDT) Pathologist [facility] pH, Venous 7.18(C) 7.32 - 7.43 Comment:Repeated and verifie d. PCO2, Venous 23(L) 40 - 50 mmHg [facility] Comment:Repeated and verifie d. PO2, Venous 63 mmHg [facility] Comment: Repeated and verified. Interpretive Data No Reference Range Established Current Interpretive Data was last revised on 2017. HCO3 Venous, Calculated 9(C) 20 - 30 mmol/L [facility] Comment:Repeated and verifie d. BE, venous -19 mmol/L [facility] Comment: Repeated and verified. Interpretive Data No Reference Range Established Current Interpretive Data was last revised on 2017. Blood 08/15/2024 6:26 AM CDT 08/15/2024 6:40 AM CDT Wenceslao Reina MD LAB BLOOD ORDERABLES Final R ult Performing Organization Address [facility] de Phone Number [facility] [place] [address] * (ABNORMAL) Ethanol (08/15/2024 6:26 AM CDT) Pathologist [facility] Ethanol 100(H) <=10 mg/dL Comment: Repeated and verified. Interpretive Data Legal limit of intoxication > or = 80 mg/dL Levels > or = 400 mg/dL are potentially TOXIC. Current interpretive data was last revised on 2018. Blood 08/15/2024 6:26 AM CDT 08/15/2024 6:40 AM CDT Wenceslao Reina MD LAB BLOOD ORDERABLES Final R esult Performing Organization Address [facility] de Phone Number [facility] [place] [address] * (ABNORMAL) Comprehensive metabolic panel (08/15/2024 6:26 AM CDT) Pathologist [facility] Sodium 130(L) 135 - 145 mmol/L Comment:Repeated and verifie d. Potassium, pl 4.9 3.3 - 4.9 mmol/L [facility] Comment:Repeated and verifie d. Chloride 85(L) 97 - 110 mmol/L [facility] Comment:Repeated and verifie d. CO2 10(C) 22 - 32 mmol/L [facility] Comment:Repeated and verifie d. Anion gap 35(C) 2 - 15 mmol/L [facility] Comment:Repeated and verifie d. BUN 19 6 - 25 mg/dL [facility] Comment:Repeated and verifie d. Creatinine 1.35(H) 0.80 - 1.30 mg/dL [facility] Comment:Repeated and verifie d. Glucose 319(H) 70 - 199 mg/dL [facility] Comment: Repeated and verified. Interpretive Data Fasting glucose >/= 126 mg/dl is diagnostic for diabetes. Fasting is defined as no caloric intake for at least 8 hours. Fasting glucose between 100 mg/dl to 125 mg/dl is diagnostic of prediabetes. In a patient with classic symptoms of hyperglycemia or hyperglycemic crisis, a random glucose >/= 200 mg/dl is diagnostic for diabetes. In the absence of unequivocal hyperglycemia, results should be confirmed by repeat testing. The classification and Diagnosis of Diabetes Diabetes Care 202; 46: S19-S40. Current interpretive data was last revised 2022. Calcium 6.1(C) 8.5 - 10.3 mg/dL [facility] Comment:Repeated and verifie d. Bilirubin, total 0.4 0.1 - 1.2 mg/dL [facility] Comment:Repeated and verifie d. Protein, pl 5.4(L) 6.5 - 8.5 g/dL [facility] Comment:Repeated and verifie d. Albumin 3.6 3.5 - 5.0 g/dL [facility] Comment:Repeated and verifie d. Alk phos 55 40 - 130 Units/L [facility] Comment:Repeated and verifie d. ALT 45 7 - 55 Units/L [facility] Comment:Repeated and verifie d. AST 91(H) 10 - 50 Units/L [facility] Comment:Repeated and verifie d. Blood 08/15/2024 6:26 AM CDT 08/15/2024 6:40 AM CDT Wenceslao Reina MD LAB BLOOD ORDERABLES Final R esult [facility] [place] [address] * (ABNORMAL) POC Blood Gas and Chemistries, Venous - (08/15/2024 6:21 AM CDT) pH, Robbin POC 7.14(C) 7.32 - 7.43 pCO2, robbin POC 24(L) 40 - 50 mmHg [facility] pO2, robbin POC 51 mmHg [facility] Na, POC 126(L) 135 - 145 mmol/L [facility] K POC 5.7(H) 3.3 - 4.9 mmol/L [facility] Comment: Interpretive Data Not all point of care methods assess for hemolysis. Confirm with instrument and retest K+ if not consistent with clinical signs and symptoms. Current Interpretive Data was last revised on 2023. Cl, POC 89(L) 97 - 110 mmol/L [facility] Ionized Ca, POC 3.48(L) 4.50 - 5.10 mg/dL [facility] Glucose, POC 338(H) 70 - 199 mg/dL [facility] Lactate, POC 4.8(C) 0.7 - 2.0 mmol/L [facility] O2 Sat, Robbin POC (Fabiana) 84 % [facility] Base excess, POC -19.2 mmol/L [facility] HCO3, Robbin POC 8(C) 20 - 30 mmol/L [facility] Hct, POC 27.0(L) 41.4 - 51.6 % [facility] Total Hb, POC 8.9(L) 13.8 - 17.2 g/dL [facility] Blood 08/15/2024 6:21 AM CDT 08/15/2024 6:21 AM CDT us Wenceslao Reina MD LAB POCT ORDERABLES - DEVICE Final Result [facility] [place] [address] * Cardiology Document Scan (07/31/2024 4:46 PM [...] >90 EXTERNAL LAB SCRIBED eGFR in NonAfrican Indonesian >90 >90 EXTERNAL LAB Blood 07/22/2024 2:15 PM CDT Erich Infante MD LAB BLOOD ORDERABLES Fi nal Result EXTERNAL LAB * B-type natriuretic peptide (06/24/2024) SCRIBED BNP 238 <125 pg/mL [facility] Blood 06/24/2024 Erich Infante MD LAB BLOOD ORDERABLES Fi nal Result [facility] * (ABNORMAL) Comprehensive metabolic panel (06/24/2024) SCRIBED Sodium 139 136 - 145 mmol/L [facility] SCRIBED Potassium 3.6 3.5 - 5.1 mmol/L [facility] SCRIBED Chloride 96(A) 100 - 108 mmol/L [facility] SCRIBED Carbon Dioxide 33.3(A) 21 - 32 mmol/L [facility] SCRIBED Anion Gap 9.7 5 - 15 mmol/L [facility] SCRIBED Urea Nitrogen (BUN) 21(A) 7 - 18 mg/dl [facility] SCRIBED Creatinine 0.90 0.7 - 1.3 mg/dl [facility] SCRIBED Glucose 151(A) 70 - 99 mg/dl [facility] Calcium 9.4 8.5 - 10.1 mg/dl [facility] Bilirubin 0.9 0.2 - 1.2 mg/dl [facility] Plasma Protein 6.8 6.4 - 8.2 g/dl [facility] Albumin 4.1 3.4 - 5.0 g/dl [facility] Alkaline Phosphatase 76 50 - 136 Units/L [facility] Alanine Transaminase (ALT) 58 16 - 60 Units/L [facility] Aspartate Transaminase (AST) 78(A) 15 - 37 Units/L [facility] eGFR in NonAfrican Indonesian >90 >90 [facility] Alb/glob ratio 1.5 1.0 - 2.0 [facility] BUN_Creat Ratio 23.3 6 - 26 [facility] Blood 06/24/2024 us Erich Infante MD LAB BLOOD ORDERABLES Fi nal Result [facility] * TRANSTHORACIC ECHO (TTE) COMPLETE W DOPPLER/CF W CONTRAST (06/23/2024 9:34 AM CNC ROUTER OPERATOR) Anatomical Region Laterality Modality Ultrasound 06/23/2024 8:59 AM CNC ROUTER OPERATOR Narrative 06/23/2024 1:32 PM CNC ROUTER OPERATOR [facility] Cardiac Diagnostic Lab [address], [address] [place] [address] Transthoracic Echocardiographic Report Patient Name: SOPHIA HANNA ST : 1990 (34y 2m) Gender: M Study Date: 06/23/2024 08:59:08 AM Ht(Inch): 72 Wt(Lb): 149.91 BSA: 1.86 Store Group Manager: Joanna Mcfarlane RDCS Location: [facility] Order Provider: ERICH INFANTE Heart [...] index. Previously Signed by:Jaciel 06/23/2024 1:31:45 PM CNC ROUTER OPERATOR and Cong Nix M.D. 06/23/2024 1:31:45 PM CNC ROUTER OPERATOR End of Addendum PROCEDURES: Echocardiographic Report: ([id number], [id number]) Transthoracic complete echo with strain imaging and [...] By: Cong Nix M.D. 06/23/2024 1:31:45 PM CNC ROUTER OPERATOR Electronically Signed By: Cong Nix M.D. 06/23/2024 1:31:45 PM CNC ROUTER OPERATOR Electronically Amended By: Cong Nix M.D. 07/20/2024 1:51:15 PM CDT [ADDENDUM] Procedure Note Cong Nix MD - 07/20/2024 [facility] [address] , [address] [place] [address] Transthoracic Echocardiographic Report Patient Name: SOPHIA HANNA ST : 1990 (34y 2m) Gender: M Study Date: 06/23/2024 08:59:08 AM Ht(Inch): 72 Wt(Lb): 149.91 BSA: 1.86 Store Group Manager: Joanna Mcfarlane RDCS Location: [facility] Order Provider:ERICH INFANTE Heart Rate: [...] leftventricle based on volume index. Previously Signed by:SignedForBoth 06/23/2024 1:31:45 PM CNC ROUTER OPERATOR and Cong Nix M.D. 06/23/2024 1:31:45 PM CNC ROUTER OPERATOR End of Addendum PROCEDURES: Echocardiographic Report: ([id number], [id number]) Transthoracic complete echo withstrain imaging and contrast, [...] LA Length 2C 5.59 cm MV Decel Fkve370.26 msec [ 104.00 - 258.00 ] LA [...] By: Cong Nix M.D. 06/23/2024 1:31:45 PM CNC ROUTER OPERATOR Electronically Signed By: Cong Nix M.D. 06/23/2024 1:31:45 PM CNC ROUTER OPERATOR Electronically Amended By: Cong Nix M.D. 07/20/2024 1:51:15 PM CDT [ADDENDUM] us Erich Infante MD CV ECHO PROCEDURES Edit ed Result - Final * POCT lipid panel (04/16/2024 3:29 PM CNC ROUTER OPERATOR) Cholesterol, POC 170 mg/dL HDL, POC 76 mg/dL Triglycerides, POC 112 mg/dL LDL Cholesterol POC 71 mg/dL Chol/HDL Ratio, POC 2.2 Non-HDL Cholesterol, POC 93 mg/dL Cholesterol Total, POC 170 mg/dL Capillary blood 04/16/2024 3 :29 PM CNC ROUTER OPERATOR us Tony Mcelroy MD POINT OF CARE TEST ORDERABLES Fi nal Result from Last 3 Months or Most Recently Relevant to Health Maintenance Insurance [facility] ACCESS ANTHEM ACCESS ANTHEM ACCESS Advance Directives For more information, please contact: [phone] * Full Code (Latest Code Status on File) Date Activated Date Inactivated Comments 08/15/2024 6:12 AM 08/21/2024 6:17 PM Care Teams Supportability Engineer Relationship Specialty Start Date End Date Pelon Rodriguez MD [address] [place] [address] [facility] [address] [place] [address] PCP - General Family Medicine 06/23/24 Erich Infante MD [address] [address] Consulting Physician Cardiology 07/26/24 Simran Pruett Primary Cdl Dedicated Truck Driver 07/26/24
--- OUTSIDE RECORDS SUMMARY | 2024-08-28 22:23 | XMS_ITS | Continuity of Care Document ---
Author Organization [facility] Address [address] [place] [address], [place] [address] Phone Care Team Providers Care Roustabout Supervisor Name Role Phone Eddie Rodney MD Unavailable Unavailable Advance Directives Directive Yes / No Effective Date File Name No Information Encounters Encounter Description Practice Location Reason(s) For Visit Diagnoses Date Provider Providers Copied on Encounter [facility], [address] [place] [address], [id number], tel:[phone] [facility] No Information Rashaun Morgan. [address] [place], [place], [id number], [place]. tel:[phone] Family History Family Member Type Diagnosis Age [...]
--- OUTSIDE RECORDS SUMMARY | 2024-08-28 22:24 | XMS_ITS | Clinical Summary ---
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 This disclosure is being madepursuant to the Care Everywhere program and may not contain all information available regarding this patient. Last updated 18.[facility] [employer] Allergies Active Allergy Reactions Criticality Noted Date [...] Reasons: Diabetes 1 Each 07/09/2024 12:25 PM HAND ICER 5 Active blood glucose test stripIndicatio ns:Diabetes Mellitus USE 1 STRIP ONCE DAILY 100 strip 1 07/09/2024 12:25 PM HAND ICER 5 Active lancetsIndicat ions:Diabetes Mellitus USE 1 LANCET ONCE DAILY 100 Each 1 07/09/2024 12:25 PM HAND ICER 5 Active Insulin Pen Needle 32G X 4 MM MISCIndication s:Diabetes Mellitus Use 1 Each ONCE DAILY 100 Each 1 07/09/2024 12:25 PM HAND ICER 5 Active milrinone (Primacor) 20-5 MG/100ML-% infusion 6.35 mcg/min by Intravenous route continuous 5 Active pantoprazole EC (Protonix) 40 MG tablet Take 1 (one) tablet by mouth 2 times daily 30 tablet 5 Active Lantus SoloStar pen Inject 5 (five) Units subcutaneously at bedtime If blood glucose greater than 140 15 mL 07/09/2024 12:25 PM HAND ICER Active Active Problems Problem Noted Date Diagnosed [...] Department Care Team Description 07/07/2024 4:31 PM HAND ICER Anesthesia Event [facility] [address] [place] [address] Tacho Pelaez DO Brown, Gina F, MD 07/07/2024 3:44 PM HAND ICER - 07/07/2024 4:14 PM HAND ICER Surgery [facility] [address] [place] [address] Moy Zarco MD EGD(>1630) 06/30/2024 2:11 PM HAND ICER - 07/09/2024 1:53 PM HAND ICER Hospital Encounter [facility] 6S ACUTE [address] [place] [address] Daryl Julian MD Heis, Farah, MD Chinnery, [...] and heating? Not hard at all 07/02/2024 [facility] Occup[facility] ional Health - Occupational Stress [...] slept in a long-term (including now)? No 02/09/2024 Housing Stability Vital Sign Answer Bryan e Recorded In the last 12 months, was t here a time when you were not able to pay the mortgage or rent on time? Yes 07/02/2024 In the past 12 months, how m any times have you moved where you were living? 2 07/02/2024 At any time in the past 12 m [facility], were you homeless or living in a long-term (including now)? Yes 07/02/2024 Sex and Gender Information Value Date Recorded Sex Assigned at Not on file Legal Sex Male 11:36 AM CDT Gender Identity Not on file Sexual Orientation Not on file Last Filed Vital Signs Vital Sign Reading Time Taken Comments Blood Pressure 92/64 07/09/2024 4:46 AM HAND ICER Pulse 83 07/09/2024 4:46 AM HAND ICER Temperature 36.9 C (98.5 F) 07/09/2024 4:46 AM HAND ICER Respiratory Rate 20 07/09/2024 4:46 AM HAND ICER Oxygen Saturation 99% 07/09/2024 12: 22 PM HAND ICER Inhaled Oxygen Concentration 40% 02/09/2024 9 :00 AM CDT Weight 61.1 kg (134 lb 12.8 oz) 07/08/2024 6:32 AM HAND ICER Height 182.9 cm (6') 06/30/2024 8:17 PM HAND ICER Body Mass Index 18.28 06/30/2024 8:17 PM HAND ICER Plan of Treatment Health Maintenance Due Date [...] this topic Medical Devices Implanted Type Area Power Tong Operator Device Identifier Shelf Expiration Date Model / Serial / Lot Set Vntrc Ast 17.4x13.8in Impella Cp 9.3 - [id number] Implanted:Qty: 1 on 02/01/2024 by Latha Mahmood MD at [facility] [employer] 10/02/2025 [id number] / [id number] / [id number] Graft Cv 10mm 30cm [facility] Polystr 2 Vlr - [id number] Implanted:Qty: 1 on 02/05/2024 by Heriberto Choudhary MD at [facility] [employer] 10/02/2028 [id number] / [id number] Dev Vntrc Ast Impella 5.5 Smartassist Implanted:Qty: 1 on 02/05/2024 by Heriberto Choudhary MD at [facility] N/A: Heart [employer] 10/02/2025 [id number] / / Patch Cv 8x.8cm [employer] Decellularized Implanted:Qty: 1 on 02/05/2024 by Heriberto Choudhary MD at [facility] Left: Arterial [employer] [id number] 04/19/2025 PFP0.8X8 / / [id number] Description:implanted in lef t femoral artery and left subclavian artery Procedures Procedure Name Priority Date/Time Associated Diagnosis Comments PREPARE RBC LEUKOREDUCED UNIT Routine 07/10/2024 1:17 AM HAND ICER GLUCOSE - POINT OF CARE Routine 07/09/2024 11:52 AM HAND ICER GLUCOSE - POINT OF CARE Routine 07/09/2024 8:25 AM HAND ICER HEMOGLOBIN AM Draw 07/09/2024 6:01 AM HAND ICER COMPREHENSIVE METABOLIC PANEL AM Draw 07/09/2024 12:13 AM HAND ICER Idiopathic acute pancreatitis, unspecified complication status HEMOGLOBIN AM Draw 07/09/2024 12:13 AM HAND ICER HEMOGLOBIN AM Draw 07/08/2024 6:44 PM HAND ICER GLUCOSE - POINT OF CARE Routine 07/08/2024 5:34 PM HAND ICER HEMOGLOBIN AM Draw 07/08/2024 12:15 PM HAND ICER GLUCOSE - POINT OF CARE Routine 07/08/2024 11:56 AM HAND ICER GLUCOSE - POINT OF CARE Routine 07/08/2024 7:35 AM HAND ICER HEMOGLOBIN AM Draw 07/08/2024 6:29 AM HAND ICER COMPREHENSIVE METABOLIC PANEL AM Draw 07/08/2024 12:17 AM HAND ICER Idiopathic acute pancreatitis, unspecified complication status HEMOGLOBIN AM Draw 07/08/2024 12:17 AM HAND ICER GLUCOSE - POINT OF CARE Routine 07/07/2024 10:17 PM HAND ICER HEMOGLOBIN AM Draw 07/07/2024 5:53 PM HAND ICER PATHOLOGY TISSUE Routine 07/07/2024 4:39 PM HAND ICER Gastrointestinal hemorrhage, unspecified gastrointestinal hemorrhage type CO ED EGD FLEX TRANSORAL DX 07/07/2024 4:26 PM HAND ICER Gastrointestinal hemorrhage, unspecified gastrointestinal hemorrhage type EGD Routine 07/07/2024 4:14 PM HAND ICER GLUCOSE - POINT OF CARE Routine 07/07/2024 4:07 PM HAND ICER GLUCOSE - POINT OF CARE Routine 07/07/2024 11:57 AM HAND ICER HEMOGLOBIN AM Draw 07/07/2024 11:21 AM HAND ICER GLUCOSE - POINT OF CARE Routine 07/07/2024 7:31 AM HAND ICER HEMOGLOBIN AM Draw 07/07/2024 5:57 AM HAND ICER COMPREHENSIVE METABOLIC PANEL AM Draw 07/07/2024 1:25 AM HAND ICER Idiopathic acute pancreatitis, unspecified complication status HEMOGLOBIN AM Draw 07/07/2024 1:25 AM HAND ICER HEMOGLOBIN AM Draw 07/06/2024 8:00 PM HAND ICER GLUCOSE - POINT OF CARE Routine 07/06/2024 5:[address] ANGIO ABDOMEN PELVIS STAT 07/06/2024 4:53 PM HAND ICER Idiopathic acute pancreatitis, unspecified complication status Anemia, unspecified type PREPARE RBC LEUKOREDUCED UNIT Routine 07/06/2024 4:18 PM HAND ICER JOHN DIRECT STAT 07/06/2024 2:46 PM HAND ICER TYPE + SCREEN PANEL Routine 07/06/2024 2 :46 PM HAND ICER HAPTOGLOBIN STAT 07/06/2024 2:46 PM HAND ICER VITAMIN B12 BRENDA 07/06/2024 2:46 PM HAND ICER FOLATE BRENDA 07/06/2024 2:46 PM HAND ICER IRON + TRANSFERRIN PANEL STAT 07/06/2024 2:46 PM HAND ICER FERRITIN BRENDA 07/06/2024 2:46 PM HAND ICER RETIC COUNT STAT 07/06/2024 2:46 PM HAND ICER BILIRUBIN TOTAL+DIRECT BLOOD PANEL STAT 07/06/2024 2:46 PM HAND ICER LDH BLOOD STAT 07/06/2024 2:46 PM HAND ICER CBC W AUTO DIFFERENTIAL STAT 07/06/2024 11:50 AM HAND ICER GLUCOSE - POINT OF CARE Routine 07/06/2024 11:25 AM HAND ICER GLUCOSE - POINT OF CARE Routine 07/06/2024 7:59 AM HAND ICER PHOSPHORUS BLOOD Routine 07/06/2024 4:32 AM HAND ICER MAGNESIUM BLOOD Routine 07/06/2024 4:32 AM HAND ICER CBC W/O DIFFERENTIAL AM Draw 07/06/2024 4:32 AM HAND ICER COMPREHENSIVE METABOLIC PANEL AM Draw 07/06/2024 4:32 AM HAND ICER Idiopathic acute pancreatitis, unspecified complication status GLUCOSE - POINT OF CARE Routine 07/05/2024 4:34 PM HAND ICER C-PEPTIDE Routine 07/05/2024 1:52 PM HAND ICER LIPASE BLOOD Routine 07/05/2024 1:52 PM HAND ICER HEMOGLOBIN A1C Routine 07/05/2024 1:52 PM HAND ICER GLUCOSE - POINT OF CARE Routine 07/05/2024 12:15 PM HAND ICER GLUCOSE - POINT OF CARE Routine 07/05/2024 10:55 AM HAND ICER XR CHEST 1VW PORTABLE Routine 07/05/2024 9:52 AM HAND ICER Idiopathic acute pancreatitis, unspecified complication status PT EVAL AND TREAT Routine 07/05/2024 8:4 9 AM HAND ICER EKG 12-LEAD Routine 07/05/2024 8:40 AM HAND ICER Idiopathic acute pancreatitis, unspecified complication status GLUCOSE - POINT OF CARE Routine 07/05/2024 8:02 AM HAND ICER COMPREHENSIVE METABOLIC PANEL AM Draw 07/05/2024 1:55 AM HAND ICER Idiopathic acute pancreatitis, unspecified complication status COMPREHENSIVE METABOLIC PANEL AM Draw 07/04/2024 2:45 AM HAND ICER Idiopathic acute pancreatitis, unspecified complication status CBC W/O DIFFERENTIAL AM Draw 07/03/2024 1:12 AM HAND ICER PHOSPHORUS BLOOD Routine 07/03/2024 1:1 2 AM HAND ICER MAGNESIUM BLOOD Routine 07/03/2024 1:12 AM HAND ICER COMPREHENSIVE METABOLIC PANEL AM Draw 07/03/2024 1:12 AM HAND ICER Idiopathic acute pancreatitis, unspecified complication status XR ABDOMEN KUB PORTABLE STAT 07/02/2024 8:41 AM HAND ICER Ileus CBC W/O DIFFERENTIAL AM Draw 07/02/2024 1:13 AM HAND ICER Ileus MAGNESIUM BLOOD Routine 07/02/2024 1:13 AM HAND ICER Ileus COMPREHENSIVE METABOLIC PANEL AM Draw 07/02/2024 1:13 AM HAND ICER Idiopathic acute pancreatitis, unspecified complication status XR ABDOMEN KUB PORTABLE STAT 07/01/2024 1:12 PM HAND ICER Ileus HEPATIC FUNCTION PANEL Routine 07/01/2024 4:22 AM HAND ICER Idiopathic acute pancreatitis, unspecified complication status PHOSPHORUS BLOOD Routine 07/01/2024 4:22 AM HAND ICER Idiopathic acute pancreatitis, unspecified complication status MAGNESIUM BLOOD Routine 07/01/2024 4:22 AM HAND ICER Idiopathic acute pancreatitis, unspecified complication status CBC W/O DIFFERENTIAL Routine 07/01/2024 4:22 AM HAND ICER Idiopathic acute pancreatitis, unspecified complication status BASIC METABOLIC PANEL (CALCIUM TOTAL) Routine 07/01/2024 4:22 AM HAND ICER Idiopathic acute pancreatitis, unspecified complication status EKG 12-LEAD Routine 07/01/2024 3:16 AM HAND ICER Idiopathic acute pancreatitis, unspecified complication status EKG 12-LEAD Routine 07/01/2024 3:14 AM HAND ICER Idiopathic acute pancreatitis, unspecified complication status EKG 12-LEAD Routine 07/01/2024 3:02 AM HAND ICER Idiopathic acute pancreatitis, unspecified complication status CT ABDOMEN PELVIS W CONTRAST STAT 06/30/2024 5:02 PM HAND ICER Abdominal pain, unspecified abdominal location TROPONIN-I HIGH SENSITIVE REFLEX 1HOUR Timed 06/30/2024 3:57 PM HAND ICER URINE DRUG SCREEN IMMUNOASSAY STAT 06/30/2024 2:52 PM HAND ICER URINALYSIS REFLEX TO MICROSCOPIC NO CULTURE STAT 06/30/2024 2:52 PM HAND ICER ALCOHOL ETHYL BLOOD STAT 06/30/2024 2 :48 PM HAND ICER B-TYPE NATRIURETIC PEPTIDE STAT 06/30/2024 2:48 PM HAND ICER TROPONIN-I HIGH SENSITIVE BASELINE + 1HR STAT 06/30/2024 2:48 PM HAND ICER PT-INR SLH STAT 06/30/2024 2:48 PM HAND ICER MAGNESIUM BLOOD STAT 06/30/2024 2:48 PM HAND ICER LIPASE BLOOD STAT 06/30/2024 2:48 PM HAND ICER LACTIC ACID BLOOD REFLEX TO REPEAT STAT 06/30/2024 2:48 PM HAND ICER COMPREHENSIVE METABOLIC PANEL STAT 06/30/2024 2:48 PM HAND ICER CBC W AUTO DIFFERENTIAL STAT 06/30/2024 2:48 PM HAND ICER EKG 12-LEAD STAT 06/30/2024 2:33 PM HAND ICER Chest pain, unspecified type XR CHEST 1VW PORTABLE STAT 06/30/2024 2:21 PM HAND ICER Chest pain, unspecified type HIV-1 HIV-2 ANTIBODY + HIV P24 AG PANEL Routine 02/03/2024 8:26 PM CDT from Last 3 Months or Most Recently Relevant to Health Maintenance Results * PREPARE (CROSSMATCH) RBC UNIT(S), 1 Units (07/10/2024 1:17 AM HAND ICER) Only the most recent of2 resultswithin the time period is included. Pathologist [facility] Unit Description N/A [facility] Blood Bank BLOOD SPECIMEN / Unknown 07/06/2024 2:55 PM HAND ICER Christiano Graham MD LAB - BLOOD BANK ORDERA BLES Final Result [facility] [address] [place] [address], [facility] [phone] * (ABNORMAL) GLUCOSE - POINT OF CARE (07/09/2024 11:52 AM HAND ICER) Only the most recent of16 resultswithin the time period is included. Pathologist [facility] Glucose WB/POC 203(H) 70 - 99 mg/dL 07/09/2024 12:00 PM HAND ICER [facility] Specimen Type Cap Fingerstick 2024 12:00 PM HAND ICER [facility] Blood BLOOD SPECIMEN / Unknown 07/09/2024 11:52 AM HAND ICER 07/09/2024 12:00 PM HAND ICER us Piotr Christine MD LAB - POINT OF CARE ORDERAB LES Final Result Performing Organization Address City/[facility]/ZIP Co de Phone Number [facility] [address] [place] [address], [place] [phone] * (ABNORMAL) HEMOGLOBIN (07/09/2024 6:01 AM HAND ICER) Only the most recent of11 resultswithin the time period is included. Hemoglobin 7.7(L) 13.3 - 17.5 g/dL 07/09/2024 6:14 AM [facility] Blood BLOOD SPECIMEN / Unknown Venipuncture / Unknown 07/09/2024 6:01 AM HAND ICER 07/09/2024 6:05 AM HAND ICER us Christiano Graham MD LAB - HEMATOLOGY ORDERA BLES Final Result Performing Organization Address City/[facility]/ZIP Co de Phone Number [facility] [address] [place] [address], [place] [phone] * (ABNORMAL) COMPREHENSIVE METABOLIC PANEL (07/09/2024 12:13 AM HAND ICER) Only the most recent of9 resultswithin the [...] Unknown Venipuncture / Unknown 07/09/2024 12:13 AM HAND ICER 07/09/2024 12:16 AM HAND ICER us Jamel Cavazos MD LAB - CHEMISTRY ORDERABLES Fin al Result [facility] [address] [place] [address], [facility] [phone] * PATHOLOGY TISSUE (07/07/2024 4:39 PM HAND ICER) Case Report Surgical Pathology Report Case: [id number] Authorizing Provider: Moy Zarco MD Collected: 07/07/2024 04:39 PM Ordering Location: [facility] Received: 07/08/2024 07:20 AM Pathologist: Yaquelin Shook MD Specimen: Gastric, Biopsy - R/O H pylori 07/09/2024 3:19 PM [facility] Final Diagnosis Stomach, biopsy (A): - Reactive gastropathy and ulcer debris - Negative for H. pylori 07/09/2024 3:19 PM [facility] Microscopic Description and Comment The [...] controls), which is negative. 07/09/2024 3:19 PM [facility] Clinical History The patient is a 34-year-old man with melena. Operative procedure/findings: EGD - nonbleeding gastric ulcer at the pylorus with pigmented material and mild erosive gastritis, biopsied to rule out H. pylori 07/09/2024 3:19 PM [facility] Gross Description The requisition and specimen(s) are identified with the patient's name Douglas Wright . Received in formalin, specimen A, consists of multiple guy-pink irregular tissue fragments averaging 0.2 cm in greatest dimension and aggregating to 0.5 x 0.4 x 0.1 cm which are submitted in toto in a single cassette labeled A1. RB 07/09/2024 3:19 PM [facility] Pathologist Location at [facility] 07/09/2024 3:19 PM [facility] Disclaimer The performance characteristics of all immunohistochemical and indirect immunofluorescence stains (if any) cited in this report were determined by the Histopathology Laboratory of [facility]. Some of these tests were developed by [...] the attending (teaching) pathologist. 07/09/2024 3:19 PM HAND ICER [facility] Embedded Images 07/09/2024 3:19 PM HAND ICER [facility] Biopsy, NOS GASTRIC CONTENTS SPECIMEN / Unknown 07/07/2024 4:39 PM HAND ICER 07/08/2024 7:20 AM HAND ICER Comment:Pre-op diagnosis: Gastrointestinal hemorrhage, unspecified gastrointestinal hemorrhage type [K92.2] us Moy Zarco MD LAB - PATHOLOGY/CYTOLOGY SHREYA BOJORQUEZ Final Result Performing Organization Address City/State/[facility] Co de Phone Number [facility] [address] [phone] * EGD (07/07/2024 4:14 PM HAND ICER) Report Endoscopy POC Endoscopy Department Report __ [...] non-montero portions. 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 All rights reserved. The codes documented in this report are preliminary and upon public policy coordinator review may be revised to meet current compliance requirements. Moy Zarco MD 07/07/2024 5:01:11 PM Note Initiated On: 07/07/2024 4:14 PM Number of Addenda: 0 [facility] [address] [place] [id number] [facility] 07/07/2024 4:14 PM HAND ICER us Clayton Chowdary MD GI PROCEDURE ORDERABLES Edited R esult - Final [facility] * TRANSFUSE RED BLOOD CELL LEUKOREDUCED UNIT(S) (07/06/2024 7:32 PM HAND ICER) us Christiano Graham MD NURSING - BLOOD PROD TR ANSFUSION Final Result * CT Angio Abdomen Pelvis (07/06/2024 4:53 PM HAND ICER) Anatomical Region Laterality Modality Abdomen, Pelvis Computed Tomogra phy 07/06/2024 5:20 PM HAND ICER Impressions 07/06/2024 5:51 PM HAND ICER Impression: 1.Redemonstration of pancreatic atrophic appearance with [...] 07/06/2024 5:51 PM Narrative 07/06/2024 5:51 PM HAND ICER PROCEDURE: CT ANGIO ABDOMEN PELVIS, DATE/TIME OF EXAM: 07/06/2024 4:54 PM, LOCATION [facility] INDICATION: K85.00: Idiopathic acute pancreatitis, unspecified complication [...] PELVIS, DATE/TIME OF EXAM: 07/06/2024 4:54PM, LOCATION [facility] INDICATION: K85.00: Idiopathic acute pancreatitis, unspecified complication [...] TYPE + SCREEN PANEL (07/06/2024 2:46 PM HAND ICER) Pathologist [facility] Antibody Screen NEG 4:07 PM HAND ICER [facility] ABO Rh A POS 07/06/2024 4:07 PM HAND ICER [facility] Blood Bank BLOOD SPECIMEN / Unknown Venipuncture / Unknown 07/06/2024 2:46 PM HAND ICER 07/06/2024 3:58 PM HAND ICER Christiano Graham MD LAB - BLOOD BANK ORDERA BLES Final Result [facility] [address] [place] [address], [place] [phone] * DIRECT JOHN (07/06/2024 2:46 PM HAND ICER) Pathologist [facility] Direct John (BRYAN) NEG 07/06/2024 3:54 PM HAND ICER [facility] Blood BLOOD SPECIMEN / Unknown Venipuncture / Unknown 07/06/2024 2:46 PM HAND ICER 07/06/2024 2:55 PM HAND ICER Result [facility] Christiano Graham MD LAB - BLOOD BANK ORDERA BLES Final Result Performing Organization Address [facility]/ZIP Co de Phone Number [facility] [address] [place] [address], [facility] [phone] * (ABNORMAL) RETIC COUNT (07/06/2024 2:46 PM HAND ICER) Reticulocyte Percent 4.48(H) 0.50 - 2.40 % 07/06/2024 3:05 PM [facility] Reticulocyte Absolute 0.0869 0.0200 - 0.1100 x10E6/uL 07/06/2024 3:05 PM [facility] Ret-HE 36.6 29.0 - 37.9 pg 07/06/2024 3:05 PM [facility] Immature Reticulocyte Fraction 18.2(H) 1.8 - 15.2 % 07/06/2024 3:05 PM [facility] Blood BLOOD SPECIMEN / Unknown Venipuncture / Unknown 07/06/2024 2:46 PM HAND ICER 07/06/2024 2:52 PM HAND ICER Result [facility] Christiano Graham MD LAB - HEMATOLOGY ORDERA BLES Final Result Performing Organization Address City/[facility]/ZIP Co de Phone Number [address] [address], [place] [phone] * LDH BLOOD (07/06/2024 2:46 PM HAND ICER) Pathologist [facility] LDH Total 227 125 - 243 Units/L 07/06/2024 3:22 PM [facility] Blood BLOOD SPECIMEN / Unknown Venipuncture / Unknown 07/06/2024 2:46 PM HAND ICER 07/06/2024 2:52 PM HAND ICER Result [facility] Christiano Graham MD LAB - CHEMISTRY ORDERAB LES Final Result [address] [address], [place] [phone] * FOLATE (07/06/2024 2:46 PM HAND ICER) [facility] Folate 17.8 7.0 - 31.4 ng/mL 07/06/2024 3:54 PM HAND ICER [facility] Blood BLOOD SPECIMEN / Unknown Venipuncture / Unknown 07/06/2024 2:46 PM HAND ICER 07/06/2024 2:52 PM HAND ICER Christiano Graham MD LAB - CHEMISTRY ORDERAB LES Final Result Performing Organization Address [facility]/ZIP Co de Phone Number [address] [address], [place] [phone] * BILIRUBIN TOTAL+DIRECT BLOOD PANEL (07/06/2024 2:46 PM HAND ICER) [facility] Bilirubin Total 0.2 0.2 - 1.2 mg/dL 08/2024 3:22 PM HAND ICER [facility] Bilirubin Conjugated 0.1 0.1 - 0.5 mg/dL 07/06/2024 3:22 PM [facility] Bilirubin Unconjugated 0.1 Unconjugated Bilirubin is a calculated value: Reference ranges have not been established. mg/dL 07/06/2024 3:22 PM HAND ICER [facility] Blood BLOOD SPECIMEN / Unknown Venipuncture / Unknown 07/06/2024 2:46 PM HAND ICER 07/06/2024 2:52 PM HAND ICER us Christiano Graham MD LAB - CHEMISTRY ORDERAB LES Final Result Performing Organization Address City/[facility]/ZIP Co de Phone Number [address] [address], [place] [phone] * (ABNORMAL) VITAMIN B12 (07/06/2024 2:46 PM HAND ICER) [facility] Vitamin B12 1,641(H) 213 - 816 pg/mL 07/06/2024 3:54 PM HAND ICER [facility] Blood BLOOD SPECIMEN / Unknown Venipuncture / Unknown 07/06/2024 2:46 PM HAND ICER 07/06/2024 2:52 PM HAND ICER us Christiano Graham MD LAB - CHEMISTRY ORDERAB LES Final Result Performing Organization Address [facility]/ZIP Co de Phone Number [address] [address], [place] [phone] * (ABNORMAL) IRON + TRANSFERRIN PANEL (07/06/2024 2:46 PM HAND ICER) Iron 47(L) 50 - 175 ug/dL 07/06/2024 3:51 PM [facility] Transferrin 210 174 - 382 mg/dL 07/06/2024 3:51 PM [facility] Transferrin Saturation % 18 16 - 50 % 07/06/2024 3:51 PM [facility] TIBC Calculated 263 240 - 450 ug/dL 07/06/2024 3:51 PM HAND ICER [facility] Blood BLOOD SPECIMEN / Unknown Venipuncture / Unknown 07/06/2024 2:46 PM HAND ICER 07/06/2024 2:49 PM HAND ICER us Christiano Graham MD LAB - CHEMISTRY ORDERAB LES Final Result Performing Organization Address City/[facility]/ZIP Co de Phone Number [address] [address], [place] [phone] * HAPTOGLOBIN (07/06/2024 2:46 PM HAND ICER) Haptoglobin 54 14 - 258 mg/dL 07/06/2024 3:51 PM [facility] Blood BLOOD SPECIMEN / Unknown Venipuncture / Unknown 07/06/2024 2:46 PM HAND ICER 07/06/2024 2:49 PM HAND ICER us Christiano Graham MD LAB - CHEMISTRY ORDERAB LES Final Result [facility] [address] [place] [address], [facility] [phone] * FERRITIN (07/06/2024 2:46 PM HAND ICER) [facility] Ferritin 146 22 - 275 ng/mL 07/06/2024 4:06 PM [facility] Blood BLOOD SPECIMEN / Unknown Venipuncture / Unknown 07/06/2024 2:46 PM HAND ICER 07/06/2024 2:49 PM HAND ICER us Christiano Graham MD LAB - CHEMISTRY ORDERAB LES Final Result Performing Organization Address [facility]/ZIP Co de Phone Number [facility] [address] [place] [address], [facility] [phone] * (ABNORMAL) CBC W AUTO DIFFERENTIAL (07/06/2024 11:50 AM HAND ICER) Only the most recent of2 resultswithin the time period is included. [facility] WBC 4.5 4.0 - 10.7 [...] Unknown Venipuncture / Unknown 07/06/2024 11:50 AM [facility] 07/06/2024 12:02 PM [facility] us Christiano Graham MD LAB - HEMATOLOGY ORDERA BLES Final Result [facility] [address] [place] [address], [facility] [phone] * (ABNORMAL) CBC W/O DIFFERENTIAL (07/06/2024 4:32 AM HAND ICER) Only the most recent of4 resultswithin the time period is included. [facility] WBC 3.4(L) 4.0 - 10.7 [...] Unknown Venipuncture / Unknown 07/06/2024 4:32 AM HAND ICER 07/06/2024 5:23 AM [facility] [facility] us Jamel Cavazos MD LAB - HEMATOLOGY ORDERABLES Fi nal Result [address] [address], [facility] [phone] * (ABNORMAL) PHOSPHORUS BLOOD (07/06/2024 4:32 AM HAND ICER) Only the most recent of3 resultswithin the time period is included. [facility] Phosphorus 6.1(H) 2.8 - 5.1 mg/dL 07/06/2024 5:50 AM HAND ICER [facility] Blood BLOOD SPECIMEN / Unknown Venipuncture / Unknown 07/06/2024 4:32 AM HAND ICER 07/06/2024 5:23 AM HAND ICER Jamel Cavazos MD LAB - CHEMISTRY ORDERABLES Fin al Result Performing Organization Address City/[facility]/ZIP Co de Phone Number [address] [address], [place] [phone] * MAGNESIUM BLOOD (07/06/2024 4:32 AM HAND ICER) Only the most recent of5 resultswithin the time period is included. [facility] Magnesium 2.1 1.6 - 2.6 mg/dL 07/06/2024 5:50 AM HAND ICER [facility] Blood BLOOD SPECIMEN / Unknown Venipuncture / Unknown 07/06/2024 4:32 AM HAND ICER 07/06/2024 5:23 AM HAND ICER Jamel Cavazos MD LAB - CHEMISTRY ORDERABLES Fin al Result Performing Organization Address [facility] Co de Phone Number [address] [address], [place] [phone] * C-PEPTIDE (07/05/2024 1:52 PM HAND ICER) [facility] C-Peptide 1.8 0.5 - 3.3 ng/mL 07/07/2024 1:34 AM HAND ICER [facility] ([facility]) Comment: INTERPRETIVE INFORMATION: Serum, C-Peptide Reference Interval applies to fasting specimens. To convert to nmol/L, multiply by 0.33 Performed By: [employer] [address] [place] [id number] Project Analyst: Hamilton Martinez MD, PhD CLIA Number: [id number] Blood BLOOD SPECIMEN / Unknown Venipuncture / Unknown 07/05/2024 1:52 PM HAND ICER 07/05/2024 1:57 PM HAND ICER Jamel aCvazos MD LAB - CHEMISTRY ORDERABLES Fin al Result [facility] ([facility]) [address] [place] [address] * (ABNORMAL) HEMOGLOBIN A1C (07/05/2024 1:52 PM HAND ICER) Hemoglobin A1c 6.0(H) <=5.6 % 07/05/2024 4:19 PM HAND ICER [facility] Estimated Average Glucose 126 mg/dL 07/05/2024 4:19 PM HAND ICER [facility] Comment: HbA1c Interpretation: Normal : < 5.7% Pre-diabetes: 5.7-6.4% Diabetes: Equal to or greater than 6.5% Test results diagnostic of diabetes should be repeated for confirmation. Treatment target values recommended by ADA and other clinical organizations should be used to evaluate metabolic control in patients. Reference: [place] [employer], Standards of Care in Diabetes -2020 In patients 70 years and older consider HbA1c target range of 7.0-7.5% (Reference: Ruddy Koenig et al. JAMDA. 2012) The Sebia assay for the measurement of HbA1c is a National Glycohemoglobin Standardization Program (NGSP) certified method. Blood BLOOD SPECIMEN / Unknown Venipuncture / Unknown 07/05/2024 1:52 PM HAND ICER 07/05/2024 1:59 PM HAND ICER Jamel Cavazos MD LAB - CHEMISTRY ORDERABLES Fin al Result Performing Organization Address City/[facility]/ZIP Co de Phone Number [facility] [address] [place] [address], [facility] [phone] * LIPASE BLOOD (07/05/2024 1:52 PM HAND ICER) Only the most recent of2 resultswithin the time period is included. Lipase 9 8 - 78 U/L 07/05/2024 2:26 PM HAND ICER [facility] Blood BLOOD SPECIMEN / Unknown Venipuncture / Unknown 07/05/2024 1:52 PM HAND ICER 07/05/2024 1:59 PM HAND ICER Narrative [facility] - 07/05/2024 2:26 PM HAND ICER Lipase results from the [employer]ee Alinity analyzer may not be comparable with other methodologies. us Jamel Cavazos MD LAB - CHEMISTRY ORDERABLES [facility] al Result [facility] [address] [place] [address], [facility] [phone] * XR Chest 1Vw Portable (07/05/2024 9:52 AM HAND ICER) Only the most recent of2 resultswithin the time period is included. Anatomical Region Laterality Modality Chest Digital Radiogra phy 07/05/2024 3:07 PM HAND ICER Narrative 07/05/2024 9:03 PM HAND ICER PROCEDURE: XR CHEST 1VW PORTABLE, DATE/TIME OF EXAM: 07/05/2024 10:05 AM, LOCATION [facility] INDICATION: K85.00: Idiopathic acute pancreatitis, unspecified complication status (HCC) ADDITIONAL CLINICAL INFORMATION: Ordering Provider Reason For Exam: pleural fluid? pna? pericardial effusion? COMPARISON: Chest radiograph 06/30/2024 FINDINGS/IMPRESSION: Lines, tubes, hardware: *A right upper extremity PICC line is redemonstrated with the tip superimposing right atrium. There is no focal consolidation, pleural effusion, or pneumothorax. The cardiomediastinal silhouette is normal. > Dictated by Yue FAGAN, [facility] (senior resident care director). I, Ronal Spencer MD have personally reviewed and interpreted this examination/study. > Interpreting Provider: Ronal Spencer MD on 07/05/2024 9:03 PM Procedure Note Ronal Spencer MD - 07/05/2024 PROCEDURE: XR CHEST 1VW PORTABLE, DATE/TIME OF EXAM: 07/05/2024 10:05AM, LOCATION [facility] INDICATION: K85.00: Idiopathic acute pancreatitis, unspecified complication status (HCC) ADDITIONAL CLINICAL INFORMATION: Ordering Provider Reason For Exam: pleural fluid? pna? pericardial effusion? COMPARISON: Chest radiograph 06/30/2024 FINDINGS/IMPRESSION: Lines, tubes, hardware: *A right upper extremity PICC line is redemonstrated with the tip superimposing right atrium. There is no focal consolidation, pleural effusion, or pneumothorax. The cardiomediastinal silhouette is normal. > Dictated by Yue FAGAN, [facility] (senior resident care director). I, Ronal Spencer MD have personally reviewed and interpreted this examination/study. > Interpreting Provider: Ronal Spencer MD on 07/05/2024 9:03 PM Jamel Cavazos MD DIAGNOSTIC IMAGING ORDERABLES Final Result * EKG 12-LEAD (07/05/2024 8:40 AM HAND ICER) Only the most recent of5 resultswithin the time period is included. Ventricular Rate 101 BPM [facility] Atrial Rate 101 BPM [facility] P-R Interval 146 ms [facility] QRS Duration ms 88 ms [facility] Q-T Interval ms 326 ms [facility] MUSE QTC Calculation (Bezet) 422 ms [facility] MUSE Calculated P [place] 32 degrees [facility]USE Calculated R [place] 83 degrees [facility] MUSE Calculated T [place] 32 degrees [facility] MUSE Interpretation EKG SINUS TACHYCARDIA LOW VOLTAGE QRS SEPTAL INFARCT , AGE UNDETERMINED T WAVE ABNORMALITY, CONSIDER ANTEROLATERAL ISCHEMIA ABNORMAL ECG WHEN COMPARED WITH ECG OF 01-JUL-2024 03:16, NO SIGNIFICANT CHANGE WAS FOUND Confirmed by MD STEFF, GLORIA ([id number]) on 07/05/2024 12:50:27 PM [facility] MUSE 07/05/2024 8:40 AM HAND ICER 07/05/2024 12:50 PM HAND ICER Jamel Cavazos MD ECG ORDERABLES Edited Result - Final [facility] MUSE * XR Abdomen Kub Portable (07/02/2024 8:41 AM HAND ICER) Only the most recent of2 resultswithin the time period is included. Anatomical Region Laterality Modality Abdomen Digital Radiogra phy 07/02/2024 2:55 PM HAND ICER Narrative 07/03/2024 12:53 AM HAND ICER PROCEDURE: XR ABDOMEN KUB PORTABLE, DATE/TIME OF EXAM: 07/02/2024 8:41 AM, LOCATION [facility] INDICATION: K56.7: Ileus (HCC) ADDITIONAL CLINICAL INFORMATION: Ordering Provider Reason For Exam: ileus Technologist Note: Additional: COMPARISON: Abdomen x-ray 07/01/2024. TECHNIQUE: Supine frontal radiograph of the abdomen. FINDINGS/ IMPRESSION: Multiple mildly dilated loops of small and large bowel located centrally may represent ileus. No evidence of free air on this supine exam. > Dictated by Juana Esquivel MD, (senior resident care director). Ronal Albright MD have personally reviewed and interpreted this examination/study. > Interpreting Provider: Ronal Spencer MD on 07/03/2024 12:53 AM Procedure Note Ronla Spencer MD - 07/03/2024 PROCEDURE: XR ABDOMEN KUB PORTABLE, DATE/TIME OF EXAM: 07/02/2024 8:41AM, LOCATION [facility] INDICATION: K56.7: Ileus (HCC) ADDITIONAL CLINICAL INFORMATION: Ordering Provider Reason For Exam: ileus Technologist Note: Additional: COMPARISON: Abdomen x-ray 07/01/2024. TECHNIQUE: Supine frontal radiograph of the abdomen. FINDINGS/ IMPRESSION: Multiple mildly dilated loops of small and large bowel located centrally may represent ileus. No evidence of free air on this supine exam. > Dictated by Juana Esquivel MD, (senior resident care director). Ronal Albright MD have personally reviewed and interpreted this examination/study. > Interpreting Provider: Ronal Spencer MD on 07/03/2024 12:53 AM Jamel Cavazos MD DIAGNOSTIC IMAGING ORDERABLES Final Result * (ABNORMAL) BASIC METABOLIC PANEL (CALCIUM TOTAL) (07/01/2024 4:22 AM HAND ICER) BUN 31(H) 7 - 26 mg/dL 07/01/2024 5:19 AM [facility] Creatinine 0.75 0.71 - 1.16 mg/dL 07/01/2024 5:19 AM [facility] Sodium 128(L) 136 - 145 mmol/L 07/01/2024 5:19 AM [facility] Potassium 3.9 3.5 - 4.5 mmol/L [...] Lab Venipuncture / Unknown 07/01/2024 4:22 AM [facility] 07/01/2024 4:46 AM [facility] us Que Chow MD LAB - CHEMISTRY ORDERABLES F inal Result [address] [address], [facility] [phone] * (ABNORMAL) HEPATIC FUNCTION PANEL (07/01/2024 4:22 AM [facility]) Protein Total 7.7 6.0 - 8.3 [...] Lab Venipuncture / Unknown 07/01/2024 4:22 AM HAND ICER 07/01/2024 4:46 AM HAND ICER Jamel Cavazos MD LAB - CHEMISTRY ORDERABLES Fin al Result [facility] [address] [place] [address], [facility] [phone] * CT ABDOMEN PELVIS W CONTRAST (06/30/2024 5:02 PM HAND ICER) Anatomical Region Laterality Modality Abdomen, Pelvis Computed Tomogra phy 06/30/2024 5:08 PM HAND ICER Impressions 06/30/2024 10:01 PM HAND ICER Impression: 1.Pancreatic atrophy with mild adjacent fat [...] 06/30/2024 10:01 PM Narrative 06/30/2024 10:01 PM HAND ICER Procedure Information DATE: 06/30/2024 5:02 PM EXAMINATION: [...] HIGH SENSITIVE REFLEX 1HOUR (06/30/2024 3:57 PM HAND ICER) Troponin I High Sensitive 71(H) <=35 ng/L 06/30/2024 4:42 PM HAND ICER [facility] Delta Troponin I HS 4 <6 ng/L 06/30/2024 4:42 PM [facility] Blood BLOOD SPECIMEN / Unknown Venipuncture / Unknown 06/30/2024 3:57 PM HAND ICER 06/30/2024 4:06 PM HAND ICER us Daryl Julian MD LAB - CHEMISTRY ORDERABLES Final Result [facility] [address] [place] [address], [facility] [phone] * (ABNORMAL) URINALYSIS REFLEX TO MICROSCOPIC NO CULTURE (06/30/2024 2:52 PM HAND ICER) Color UA Yellow Yellow, Straw 06/30/2024 4:00 PM [facility] Clarity UA Clear Clear 06/30/2024 4:00 PM [facility] Glucose UA 4+(A) Normal 06/30/2024 4:00 PM [facility] Bilirubin UA 1+(A) Negative 06/30/2024 4:00 PM [facility] Ketone UA 4+(A) Negative 06/30/2024 4:00 PM [facility] Specific [place] UA 1.027 1.005 - 1.030 06/30/2024 4:00 [...] Unknown Collection / Unknown 06/30/2024 2:52 PM HAND ICER 06/30/2024 2:58 PM HAND ICER us Daryl Julian MD LAB - URINALYSIS ORDERABLE S Final Result [facility] [address] [place] [address], [facility] [phone] * (ABNORMAL) URINE DRUG SCREEN IMMUNOASSAY (06/30/2024 2:52 PM HAND ICER) Amphetamines Screen Urine Negative Negative : < [...] Unknown Collection / Unknown 06/30/2024 2:52 PM HAND ICER 06/30/2024 2:58 PM HAND ICER Narrative [facility] - 06/30/2024 3:23 PM HAND ICER The Urine Toxicology Screening Panel does not screen for Propoxyphene, Meprobamate, Carisoprodol, Trazodone, epct-syf-uyeqlxm medications and/or volatiles (Acetone, Isopropanol, Methanol or Ethylene Glycol). Ethanol, Salicylate, Acetaminophen, Tricyclic Antidepressants and several therapeutic drugs may be individually assayed in serum or plasma specimen. Toxicology testing by the [facility] is an aid to medical diagnosis and treatment of patients. No documented chain of custody was maintained. Results are intended to be used for clinical purposes only. Daryl Julian MD LAB - URINE CHEMISTRY ORDE RABCRYSTAL Final Result Performing Organization Address [facility] Co de Phone Number [address] [address], [facility] [phone] * PT-INR [facility] (06/30/2024 2:48 PM HAND ICER) PT 12.7 12.1 - 14.8 Seconds 06/30/2024 3:20 PM HAND ICER [facility] INR 1.0 See Comment 06/30/2024 3:20 PM HAND ICER [facility] Comment:The suggested therap eutic range for standard coumadin (warfarin) therapy is an INR of 2.0-3.0. For high-risk patients (Mechanical Mitral Valve Prosthesis, etc.), the suggested prophylactic therapeutic range is an INR of 2.5-3.5. Blood BLOOD SPECIMEN / Unknown Venipuncture / Unknown 06/30/2024 2:48 PM HAND ICER 06/30/2024 2:52 PM HAND ICER Daryl Julian MD LAB - COAGULATION ORDERABL ES Final Result Performing Organization Address [facility] Co de Phone Number [address] [address], [facility] [phone] * LACTIC ACID BLOOD REFLEX TO REPEAT (06/30/2024 2:48 PM HAND ICER) [facility] Lactic Acid-Stat 1.3 <=2.0 mmol/L 06/30/2024 3:23 PM HAND ICER [facility] Blood BLOOD SPECIMEN / Unknown Venipuncture / Unknown 06/30/2024 2:48 PM HAND ICER 06/30/2024 2:52 PM HAND ICER Daryl Julian MD LAB - CHEMISTRY ORDERABLES Final Result Performing Organization Address [facility] Co de Phone Number [facility] [address] [place] [address], [place] [phone] * (ABNORMAL) TROPONIN-I HIGH SENSITIVE BASELINE + 1HR (06/30/2024 2:48 PM HAND ICER) [facility] Troponin I High Sensitive 67(H) <=35 ng/L 06/30/2024 3:32 PM HAND ICER [facility] Blood BLOOD SPECIMEN / Unknown Venipuncture / Unknown 06/30/2024 2:48 PM HAND ICER 06/30/2024 2:54 PM HAND ICER Daryl Julian MD LAB - CHEMISTRY ORDERABLES Final Result Performing Organization Address [facility] de Phone Number [address] [address], [place] [phone] * B-TYPE NATRIURETIC PEPTIDE (06/30/2024 2:48 PM HAND ICER) [facility] BNP 38 <100 pg/mL 06/30/2024 3:30 PM HAND ICER [facility] Comment: A decision threshold of 100 [...] Unknown Venipuncture / Unknown 06/30/2024 2:48 PM HAND ICER 06/30/2024 2:54 PM HAND ICER Daryl Julian MD LAB - CHEMISTRY ORDERABLES Final Result Performing Organization Address [facility]/ZIP Co de Phone Number [address] [address], [facility] [phone] * ALCOHOL ETHYL BLOOD (06/30/2024 2:48 PM HAND ICER) Ethanol (mg/dL) <10 <10 mg/dL 3:28 PM HAND ICER [facility] Ethanol Calculated (g/dL) <0.010 <=0.010 g/dL 06/30/2024 3:28 PM HAND ICER [facility] Blood BLOOD SPECIMEN / Unknown Venipuncture / Unknown 06/30/2024 2:48 PM HAND ICER 06/30/2024 2:54 PM HAND ICER Narrative [facility] - 06/30/2024 3:28 PM HAND ICER Ethanol Interp <10: None Detected. Depression of MUSIC MANAGER: >100 mg/dl Potentially Critical: >250 mg/dl Potentially [...] CHEMISTRY ORDERABLES Final Result Performing Organization Address [facility]/ZIP Co de Phone Number [address] [address], [place] [phone] * HIV-1 HIV-2 ANTIBODY + HIV P24 AG PANEL (02/03/2024 8:26 PM CDT) HIV Antigen/Antibod y 1 & 2 Non-reacti ve Non-react judy 02/03/2024 9:49 PM CDT [facility] Comment:No Laboratory eviden ce of HIV infection. 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
--- OUTSIDE RECORDS SUMMARY | 2024-08-28 22:24 | XMS_ITS | Data Portability ---
Author Organization [place] - [facility], PREVIOUS COUNSELING Address [address] [place] [id number] Assessment No assessment recorded. Plan of Treatment Reminders Order Date Submit Date Provider Last Modified By Organization Details Last Modified Time Details Appointments None recorded. Lab drug screen, urine [address], [address] [place] [address], [phone], 3 14:30:27 gamma-gluta myl transferase (ggt), serum 2022 023 [place], [address] [facility], [place] [address], [place], [address], 3 09:36:04 CMP, serum or plasma 2022 023 [place] [facility], [address] [facility], [place] [address], [place], [address], 3 09:36:03 CBC w/ auto diff 2022 023 [place] [facility], [address] [facility], [facility] [address], [place], [address], 3 06:35:44 hepatitis C Ab, signal-to-c utoff, serum or plasma 2022 023 [place], [address] [facility], [facility] [address], [place], [address], 3 12:35:37 Referral None recorded. Procedures None recorded. Surgeries None recorded. Imaging None recorded. Medication Orders naltrexone 50 mg tablet 2022 023 [place] [id number], [address] [place], [address], 3 15:50:44 naltrexone 50 mg tablet 2022 023 [id number], [address] [place], [address], 3 13:01:30 Patient TargetsNo targets recorded. Patient [...] 14:21:10 06/22/2022 8449 Patient informed to call [facility] Specialty pharmacy to discontinue the Vivitrol shipment has it has not been delivered to the clinic. [email or web address] Not available 06/23/2022 15:52:20 Reason for Referral None Reported. Results Created Date Observation Date Name Description Value Unit Range Abnormal Flag Note LastModifiedBy Organization Detail LastModifiedTime 06/11/19 23 06/12/2022 CBC WITH DIFFE RENTI AL/PL ATELE T WBC 9.9 x10e3 /uL 3.4-10 .8 Not Available [facility] ([facility]) [address] [place], [address], 06/12/2022 06:35:41 06/11/1906/12/2022 CBC WITH DIFFE RENTI AL/PL ATELE T RBC 5.05 x10e6 /uL 4.14-5 .80 Not Available [facility] ([facility]) [address] [place], [address], 06/12/2022 06:35:41 06/11/19 23 06/12/2022 CBC WITH DIFFE RENTI AL/PL ATELE T hemoglobin 16.3 g/dL 13.0-1 7.7 Not Available [facility] ([facility]) [address] [place], [address], 06/12/2022 06:35:41 06/11/1906/12/2022 CBC WITH DIFFE RENTI AL/PL ATELE T hematocrit 46.5 % 37.5-5 1.0 Not Available [facility] ([facility]) [address] [place], [address], 06/12/2022 06:35:41 06/11/19 23 06/12/2022 CBC WITH DIFFE RENTI AL/PL ATELE T MCV 92 fL 79-97 Not Available [facility] ([facility]) [address] [place], [address], 06/12/2022 06:35:41 06/11/19 23 06/12/2022 CBC WITH DIFFE RENTI AL/PL ATELE T MCH 32.3 pg 26.6-3 3.0 Not Available [facility] ([facility]) [address] [facility], [place], [address], 06/12/2022 06:35:41 06/11/19 23 06/12/2022 CBC WITH DIFFE RENTI AL/PL ATELE T MCHC 35.1 g/dL 31.5-3 5.7 Not Available [facility] ([facility]) [address] [facility], [place], [address], 06/12/2022 06:35:41 06/11/19 23 06/12/2022 CBC WITH DIFFE RENTI AL/PL ATELE T RDW 13.4 % 11.6-1 5.4 Not Available [facility] ([facility]) [address] [facility], [place], [address], 06/12/2022 06:35:41 06/11/19 23 06/12/2022 CBC WITH DIFFE RENTI AL/PL ATELE T platelets 196 x10e3 /uL 150-45 0 Not Available [facility] ([facility]) [address] [facility], [place], [address], 06/12/2022 06:35:41 06/11/19 23 06/12/2022 CBC WITH DIFFE RENTI AL/PL ATELE T neutrophils 69 % not estab. Not Available [facility] ([facility]) [address] [facility], [place], [address], 06/12/2022 06:35:41 06/11/19 23 06/12/2022 CBC WITH DIFFE RENTI AL/PL ATELE T lymphs 21 % not estab. Not Available [facility] ([facility]) [address] [facility], [place], [address], 06/12/2022 06:35:41 06/11/19 23 06/12/2022 CBC WITH DIFFE RENTI AL/PL ATELE T monocytes 7 % not estab. Not Available [facility] ([facility]) [address] [facility], [place], [address], 06/12/2022 06:35:41 06/11/19 23 06/12/2022 CBC WITH DIFFE RENTI AL/PL ATELE T eos 1 % not estab. Not Available [facility] ([facility]) [address] [facility], [place], [address], 06/12/2022 06:35:41 06/11/19 23 06/12/2022 CBC WITH DIFFE RENTI AL/PL ATELE T basos 1 % not estab. Not Available [facility] ([facility]) [address] 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 0 Not Available [facility] ([facility]) [address] [place], [address], 06/12/2022 06:35:41 06/11/19 23 06/12/2022 CBC WITH DIFFE RENTI AL/PL ATELE T lymphs (absolute) 2.1 x10e3 /uL 0.7-3. 1 Not Available [facility] ([facility]) [address] [place], [address], 06/12/2022 06:35:41 06/11/19 23 06/12/2022 CBC WITH DIFFE RENTI AL/PL ATELE T monocytes(ab solute) 0.6 x10e3 /uL 0.1-0. 9 Not Available [facility] ([facility]) [address] [facility], [place], [address], 06/12/2022 06:35:41 06/11/19 23 06/12/2022 CBC WITH DIFFE RENTI AL/PL ATELE T eos (absolute) 0.1 x10e3 /uL 0.0-0. 4 Not Available [facility] ([facility]) [address] [facility], [place], [address], 06/12/2022 06:35:41 06/11/19 23 06/12/2022 CBC WITH DIFFE RENTI AL/PL ATELE T baso (absolute) 0.1 x10e3 /uL 0.0-0. 2 Not Available [facility] ([facility]) [address] [facility], [place], [address], 06/12/2022 06:35:41 06/11/19 23 06/12/2022 CBC WITH DIFFE RENTI AL/PL ATELE T immature granulocytes 1 % not estab. Not Available [facility] ([facility]) [address] [facility], [place], [address], 06/12/2022 06:35:41 06/11/19 23 06/12/2022 CBC WITH DIFFE RENTI AL/PL ATELE T immature grans (abs) 0.1 x10e3 /uL 0.0-0. 1 Not Available [facility] ([facility]) [address] 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, [place], [address], 06/12/2022 06:35:41 06/11/19 23 06/12/2022 CBC WITH DIFFE RENTI AL/PL ATELE T hematology comments: MERCHANDISE TEAM MANAGER Not Available [facility] ([facility]) [address] [facility] [place], [address], 06/12/2022 06:35:41 06/11/19 23 06/12/2022 COMP. METAB OLIC PANEL (14) glucose 105 mg/dL 70-99 above high normal Not Available [facility] ([facility]) [address] [facility] [place], [address], 06/12/2022 09:36:03 06/11/19 23 06/12/2022 COMP. METAB OLIC PANEL (14) BUN 10 mg/dL 6-20 Not Available [facility] ([facility]) [address] [facility] [place], [address], 06/12/2022 09:36:03 06/11/19 23 06/12/2022 COMP. METAB OLIC PANEL (14) creatinine 0.88 mg/dL 0.76-1 .27 Not Available [facility] ([facility]) [address] [facility] [place], [address], 06/12/2022 09:36:03 06/11/19 23 06/12/2022 COMP. METAB OLIC PANEL (14) eGFR 116 mL/mi n/1.7 3 >59 Not Available [facility] ([facility]) [address] [facility] [place], [address], 06/12/2022 09:36:03 06/11/19 23 06/12/2022 COMP. METAB OLIC PANEL (14) BUN/creatini ne ratio 11 9-20 Not Available [facility] ([facility]) [address] [facility] [place], [address], 06/12/2022 09:36:03 06/11/19 23 06/12/2022 COMP. METAB OLIC PANEL (14) sodium 142 mmol/ L 134-14 4 Not Available [facility] ([facility]) [address] [facility] [place], [address], 06/12/2022 09:36:03 06/11/19 23 06/12/2022 COMP. METAB OLIC PANEL (14) potassium 3.7 mmol/ L 3.5-5. 2 Not Available [facility] ([facility]) [address] [place], [address], 06/12/2022 09:36:03 06/11/19 23 06/12/2022 COMP. METAB OLIC PANEL (14) chloride 100 mmol/ L 96-106 Not Available [facility] ([facility]) [address] [place], [address], 06/12/2022 09:36:03 06/11/19 23 06/12/2022 COMP. METAB OLIC PANEL (14) carbon dioxide, total 20 mmol/ L 20-29 Not Available [facility] ([facility] [address] [place], [address], 06/12/2022 09:36:03 06/11/19 23 06/12/2022 COMP. METAB OLIC PANEL (14) calcium 9.6 mg/dL 8.7-10 .2 Not Available [facility] ([facility]) [address] [place], [address], 06/12/2022 09:36:03 06/11/19 23 06/12/2022 COMP. METAB OLIC PANEL (14) protein, total 7.5 g/dL 6.0-8. 5 Not Available [facility] ([facility]) [address] [place], [address], 06/12/2022 09:36:03 06/11/19 23 06/12/2022 COMP. METAB OLIC PANEL (14) albumin 5.2 g/dL 4.0-5. 0 above high normal Not Available [facility] ([facility]) [address] [place], [address], 06/12/2022 09:36:03 06/11/19 23 06/12/2022 COMP. METAB OLIC PANEL (14) globulin, total 2.3 g/dL 1.5-4. 5 Not Available [facility] ([facility]) [address] [facility] [place], [address], 06/12/2022 09:36:03 06/11/19 23 06/12/2022 COMP. METAB OLIC PANEL (14) A/G ratio 2.3 1.2-2. 2 above high normal Not Available [facility] ([facility]) [address] [facility] [place], [address], 06/12/2022 09:36:03 06/11/19 23 06/12/2022 COMP. METAB OLIC PANEL (14) bilirubin, total 0.4 mg/dL 0.0-1. 2 Not Available [facility] ([facility]) [address] [facility] [place], [address], 06/12/2022 09:36:03 06/11/19 23 06/12/2022 COMP. METAB OLIC PANEL (14) alkaline phosphatase 75 IU/L 44-121 Not Available [facility] ([facility]) [address] [facility] [place], [address], 06/12/2022 09:36:03 06/11/19 23 06/12/2022 COMP. METAB OLIC PANEL (14) AST (SGOT) 50 IU/L 0-40 above high normal Not Available [facility] ([facility]) [address] [facility] [place], [address], 06/12/2022 09:36:03 06/11/19 23 06/12/2022 COMP. METAB OLIC PANEL (14) ALT (SGPT) 39 IU/L 0-44 Not Available [facility] ([facility]) [address] [facility] [place], [address], 06/12/2022 09:36:03 06/11/19 23 06/12/2022 GGT GGT 51 IU/L 0-65 Not Available [facility] ([facility]) [address] [facility], [place], [address], 06/12/2022 09:36:04 06/11/19 23 06/12/2022 HCV ANTIB ELIJAH RFX TO QUANT PCR HCV Ab <0.1 s/co_ ratio 0.0-0. 9 Not Available [facility] ([facility]) [address] [facility], [place], [address], 06/12/2022 12:35:37 06/11/19 23 06/12/2022 HCV ANTIB ELIJAH RFX TO QUANT PCR interpretati on: Commen t Negat judy Not infec alyson with HCV, unles s recen t infec tion is suspe cted or other evide nce exist s to indic ate HCV infec tion. Not Available [facility] ([facility]) [address] [facility], [place], [address], 06/12/2022 12:35:37 06/11/19 23 06/11/2022 drug scree n, urine AMP negati ve Not Available [address], [address], 06/11/2022 14:29:21 06/11/19 23 06/11/2022 drug scree n, urine BAR negati ve Not Available [address], [address], 06/11/2022 14:29:21 06/11/19 23 06/11/2022 drug scree n, urine BUP negati ve Not Available [address], [address], 06/11/2022 14:29:21 06/11/19 23 06/11/2022 drug scree n, urine BZO positi ve Not Available [address], [address], 06/11/2022 14:29:21 06/11/19 23 06/11/2022 drug scree n, urine YVES negati ve Not Available [address], [address], 06/11/2022 14:29:21 06/11/19 23 06/11/2022 drug scree n, urine MDMA negati ve Not Available [address], [address], 06/11/2022 14:29:21 06/11/19 23 06/11/2022 drug scree n, urine MTD negati ve Not Available [address], [address], 06/11/2022 14:29:21 06/11/19 23 06/11/2022 drug scree n, urine OPI negati ve Not Available [address], [address], 06/11/2022 14:29:21 06/11/19 23 06/11/2022 drug scree n, urine OXY negati ve Not Available [address], [address], 06/11/2022 14:29:21 06/11/19 23 06/11/2022 drug scree n, urine PCP negati ve Not Available [address], [address], 06/11/2022 14:29:21 06/11/19 23 06/11/2022 drug scree n, urine TCA negati ve Not Available [address], [address], 06/11/2022 14:29:21 06/11/19 23 06/11/2022 drug scree n, urine THC positi ve Not Available [address], [address], 06/11/2022 14:29:21 Result Notes None recorded. Problems Name Problem SNOMED Code Status Onset Date Resolution Date Notes Provider Name and Address Organization Details Recorded Time Pancreatitis 25759822 Active 2022 Odilon Michael MD [address] [place] [address], [place], [address] [place] [address] [place] [facility] 3 17:27:29 Chronic anxiety 951464405 Active 2022 Odilon Michael MD [address] [place] [address], [place], [address] [place] [address] [place] [facility] 3 17:27:29 Alcoholism 5875979 Active 2022 Odilon Michael MD [address] [place] [address], [place], [address] [place] [address] [place] [facility] 3 17:48:24 Anxiety 44550946 Active 2022 Odilon Michael MD [address] [place] [address], [place], [address] [place] [address] [place] [facility] 3 17:48:42 Problem Notes None recorded. Medical Equipment None Reported. Allergies Allergen ID Allergen Name Allergen Category Reaction Reaction Severity Criticality Documentation Date Start Date Code Code System Note Provider Name and Address Organization Details Recorded Time 2020 sulfameth oxazole / trimethop rim medicatio n Not available Not available Not available 06/11/2022 24450 RxNorm Not Available Not Available Not Available [...] Updated DateTime 06/11/2022 182.88 cm 25 kg/m2 23670 g 119 mm[Hg] 89 mm[Hg] Odilon Michael MD [address] [place] [address], [address] , [place] [facility] 14:28:10 Date Recorded Body height Provider Name an d Address Organization Details Last Updated DateTime 06/22/2022 182.88 cm Odilon Michael MD [address] [place] [address], [address], [place] [facility] 06/23/2022 15:45:07 Social History Question Answer Notes LastModified by Organizat ion Details LastModified Time Tobacco Smoking Status Current Every Day Smoker Odilon Michael MD [address] [place] [address], [address], [place] [facility] 06/15/2022 17:52:44 What Is Your Level Of Alcohol Consumption? Heavy Information not available 06/15/2022 Are You Currently Employed? Yes Information not available 06/15/2022 Which Illicit Or Recreational Drugs Have You Used? 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 Information not available 06/15/2022 What Was The [...] Code Diagnosis Note 8355 Odilon Michael MD [address] [place] [address] 06/11/2022 13:45:21 06/11/2022 14:28:25 Alcoholism 6865953 F10.20 History of pancreatitis 9882680337 9107 Z87.19 Tobacco user 458900336 Z 72.0 Hepatitis C screening 41 3605873 Z11.59 Anxiety disorder 7208561 06 F41.9 Follow up with Psychiatri st and Therapist 8449 Odilon Michael MD [address] [place] [address] 06/22/2022 12:33:29 06/22/2022 13:23:16 Alcoholism 6742301 F10.20 Aspartate aminotransferase serum level above reference range 737307138 R74.01 This may be related to alcoholism [...] ID Guarantor Name 06/11/2022 1 [employer] [id number] Douglas Wright [id number] Douglas Wright 06/22/2022 1 [employer] [id number] Douglas Wright [id number] Douglas Wright Notes Date Note Type [...] questionnaire completed by patient. Odilon Michael MD [address] [facility] [place], [address], [place] [facility] 06/15/2022 18:03:23 06/22/2022 text/html Mr. Douglas Wright [...] copies given to him Odilon Michael MD [address] [facility], [place], [address], [facility] 06/23/2022 15:52:23
--- OUTSIDE RECORDS SUMMARY | 2024-08-28 22:24 | XMS_ITS | Data Portability ---
Author Organization [facility] [employer] Main Office Address [address] [place] [address] Care Team Providers Care Judicial Assistant Name Role Phone JOSE J JUSTIN Supervisor Customer Records Division Assessment No assessment recorded. Plan of Treatment Reminders Order Date Submit Date Provider Last Modified By Organization Details Last Modified Time Details Appointments None recorded. Lab CBC w/ auto diff 2023 [facility], [address] [place], [address], 5 19:38:54 CMP, serum or plasma [address] Outpatient Lab, [address] [place], [address], 4 17:16:55 lipid panel, serum 2023 024 [facility] (Lab), [address] [place], [address], 4 08:13:06 TSH + free T4, serum [address] Outpatient Lab, [address] [place], [address], 4 17:16:55 HbA1c (hemoglobi n A1c), blood 2023 024 [facility], [address] [place], [address], 4 08:13:06 Referral None recorded. Procedures None recorded. Surgeries None recorded. Imaging None recorded. Medication Orders zolpidem 10 mg tablet 2023 [facility][id number], [address], [place], [place], [id number], 4 17:09:42 clonazepam 2 mg tablet 2023 024 [facility] #53842, [address], [place], [place], [id number], 4 17:09:40 hydrocodon e 10 mg-acetami nophen 325 mg tablet 2023 024 [facility]35920, [address], [place], [place], [id number], 4 17:09:36 cyclobenza elen 5 mg tablet 2023 024 [facility] #61473, [address], [place], [place], [id number], 4 17:09:35 furosemide 20 mg tablet 2023 024 [facility] #45718, [address], [place], [place], [id number], 4 17:09:35 midodrine 10 mg tablet 2023 024 [facility] #67116, [address], [place], [place], [id number], 4 15:15:22 Patient TargetsNo targets recorded. Patient Instructions Encounter Date Encounter Id Patient Instructions Last Modified By Organization Details Last Modified Time 03/22/2024 [id number] Follow up in 3 months if not continuing hospice. Obtain labs Tests: Referral: Recommend: Tetanus vaccine Not available 03/22/2024 14:52:15 04/13/2024 [id number] Follow up in 3 months Prescriptions sent to pharmacy Obtain labs Tests: Referral: Recommend: Tetanus vaccine Shingles vaccine Not available 04/13/2024 17:08:37 Reason for Referral None Reported. Results Created Date Observation Date Name Description Value Unit Range Abnormal Flag Note LastModifiedBy Organization Detail LastModifiedTime 07/30/1907/28/2024 XR, chest , 2 view No observ ation record ed. [email or web address] [facility] [address], [place], [address], 08/04/2024 09:02:45 Result Notes None recorded. Problems Name Problem SNOMED Code Status Onset Date Resolution Date Notes Provider Name and Address Organization Details Recorded Time Pain in bilateral legs 9965464873526 9108 Active 2023 Erika Carreon APRN [address], [address], [place], [address], [employer] 4 14:54:44 Heart failure 96883363 Active 2023 Erika Carreon APRN [address], [address], [place], [address], [employer] 4 08:36:05 Anxiety 44863854 Active 2023 Erika Carreon APRN [address], [address], [place], [address], [employer] 4 16:57:51 Insomnia 142925710 Active 2023 Erika Carreon APRN [address], [address], [place], [address], [employer] 4 17:05:06 Pain in lower limb 23974414 Active 2023 Erika Carreon APRN [address], [address], [place], [address], [employer] 4 17:05:54 Prediabetes 190602599 Active 2024 Erika Carreon APRN [address], [address], [place], [address], [employer] 19:38:15 Problem Notes None recorded. Procedures Surgical History Date Name Laterality Status Provider Name and Address Organization Details Recorded Time extracorporeal membrane oxygenation completed Freida Johnson MA [facility] [employer] [facility] 03/22/2024 14:22:05 Ankle Surgery completed Freida Johnson MA [facility] [employer] [facility] 03/22/2024 14:22:16 Imaging Results Imaging Date Name Status LastModified by Organiz ation Details LastModified Time 07/28/2024 XR, chest, 2 view completed [address], [place], [address], 08/04/2024 09:02:45 Procedure Notes None recorded. Medical Equipment None Reported. Allergies Allergen ID Allergen Name Allergen Category Reaction Reaction Severity Criticality Documentation Date Start Date Code Code System Note Provider Name and Address Organization Details Recorded Time 31642 sulfameth oxazole / trimethop rim medicatio n Not available Not available Not available 03/22/2024 27100 [employer] Freida Johnson MA null, [facility] [employer] 14:07:29 Medications Name Sig Start Date Stop Date Status Note LastModified by Organization Details LastModified Time [facility] after hours fee AFTER hours fee 03/22 completed Not Available Not Available Not Available status covid-19/ flu a-b antigen tst TEST DIRECTED TODAY active Not Available Not Available No t Available emergency /stat fee 03/22 completed Not Available Not Available Not Available local delivery 03/22 completed Not Available Not Available Not Available hs delivery fee delivery fee 03/22 completed Not [...] Updated DateTime 4 182.88 cm 18 kg/m2 09116.7 9 g 98.2 [degF] 86 /min 99 % 99 % 7 120 mm[Hg] 64 mm[Hg] Freida Johnson MA [facility] [employer] 4 14:07:07 Date Recorded Body height Body mass index (BMI) Body weight Body temperature Heart rate Oxygen saturation Oxygen saturation in Arterial blood by Pulse oximetry Pain severity - 0-10 verbal numeric rating [Score] - Reported Systolic blood pressure Diastolic blood pressure Provider Name and Address Organization Details Last Updated DateTime 4 182.88 cm 20.1 kg/m2 44228.6 7 g 98 [degF] 102 /min 99 % 99 % 6 108 mm[Hg] 64 mm[Hg] Freida Johnson MA [employer] [facility] [employer] 4 16:42:11 Social History Question Answer Notes LastModified by Organizat ion Details LastModified Time Tobacco Smoking Status Former Smoker Freida Johnson MA [facility] [employer] [facility] [employer] 03/22/2024 14:20:20 What Is Your Level Of [...] Anxious, Or Unable To Sleep At Night)? [id number] Information not available 03/22/2024 Do You Use [...] dose 07/06/2021 completed Erika Carreon APRN [address] [facility], [address], [place], [address], [facility] 03/22/2024 14:25:35 Past Encounters Encounter ID Performer Location Encounter Start Date Encounter Closed Date Diagnosis/Indication Diagnosis SNOMED-CT Code Diagnosis ICD10 Code Diagnosis Note [id number] Erika Carreon APRN [facility] Internal Med [facility] [address] [facility] [address] [place] [address] 03/22/2024 13:52:57 03/22/2024 15:27:15 Heart failure 54991755 I50.9 [id number] Erika Carreon APRN [facility] Internal Med [address] [facility] [address] [place] [phone] 04/13/2024 16:31:22 04/13/2024 17:18:13 Anxiety 17736073 F41.9 Insomnia 700018840 G47.0 0 Pain in lower limb 22775 006 M79.606 Heart failure 55871941 I 50.9 Diabetes m ellitus screening 554215315 Z13.1 Hyperlipid emia screening 836492187 Z13.220 Screening for disorder 702058246 Z13.9 Thyroid di sorder screening 070473111 Z13.29 Health Concerns Section Related Observation LastModified by Organization Detai ls LastModified Time None Recorded Concern Status LastModified by Organization Details LastModified Time None Recorded Advance Directives Directive None Recorded Payers Encounter Date Sequence Insurance Name Policy Number Policy Rangel Covered Member ID Rangel Member ID Guarantor Name 03/22/2024 1 [place] [id number] Douglas Wright [id number] Douglas Wright 04/13/2024 1 [place] [id number] Douglas Wright [id number] Douglas Wright Notes Date Note Type Note Provider Name and Address Organization Details Recorded Time 03/22/2024 text/html Douglas presents today to establish care as a new patient. He is currently on hospice due to heart failure. He states that he wants to get off of hospice. He is currently on a continuous infusion of milrinone. He states that he was at [facility] for a month and sent home on hospice due to the heart failure. He states his EF was at 20 when he left the hospital. 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 He states that he has an appointment with a lacquerer on 04/05/2024. He cannot get off of hospice until he has a primary provider and a lacquerer in place. Erika Carreon APRN [address], [address], [place], [address], [employer] [facility] [employer] 03/22/2024 15:18:21 04/13/2024 text/html Douglas presents today to discuss medications. Patient states that he is revoking his hospice care effective of 04/15/2024. He has an appointment with lacquerer on 04/16/2024. He states that he is [...] milrinone. He states that he was at [facility] for a month and sent home on hospice due to the heart failure. He states his EF was at 20 when he left the hospital. 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 He states that he has an appointment with a lacquerer on 04/05/2024. He cannot get off of hospice until he has a primary provider and a lacquerer in place. Erika Carreon APRN [address], [address], [place], [address], [employer] [facility] 04/13/2024 17:16:49
--- OUTSIDE RECORDS SUMMARY | 2024-08-28 22:24 | XMS_ITS | Encounter Summary ---
Author Organization [facility] Address [facility] [place] [address] Care Team Providers Care Consumer Marketing Specialist Name Role Phone Malcolm Smart MD Primary Care Provider [phone] Erika Carreon NP Primary Care Provider [phone] Tony Mcelroy MD Unavailable Bar Alegria MD Unavailable [phone] Pelon Rodriguez MD Primary Care Provider [phone] Encounter Details Date Type Department Care Team (Late st Contact Info) Description 2024 Therapy Plan [facility] [address] [place] [address] Tony Mcelroy MD [address] [address] Social History Tobacco Use Types [...] from your doctor or pharmacy? Never 09/18/2023 [facility] Utilities Answer Date Recorded In the past 12 months has [employer], oil, or [employer] threatened to shut off services in your [...] How often do you attend chur or religion services? 1 to 4 times per year 08/13/2023 Do you belong to any clubs o r organizations such as latter day groups, unions, fraternal or athletic groups, or [...] medical care, and heating? Patient declined 10/27/2023 [facility] - Occupational [...] place to sleep or slept in a half-way (including now)? No 03/29/2023 Housing Stability Vital [...] any time in the past 12 m [facility], were you homeless or living in a half-way (including now)? Patient declined 10/27/2023 Sex and [...] 12:14 PM MARYT Sita Guevara RN Active * Because of [...] on file documented as of this encounter Goals Goal Patient Goal Type Associated Problems Recent Progress Patient-Stated? Author Patient will return to prior living situation and remain independent in ADLs upon discharge from hospital Lifestyle No Hiral Diamond RN documented as of this encounter Visit Diagnoses Diagnosis Chronic systolic heart failure (CMS/HCC [facility])- Primary Chronic systolic heart failure documented in this encounter Care Teams Consumer Marketing Specialist Relationship Specialty Start Date End Date Malcolm Smart MD [address] [place] [address] PCP - General FAMILY PRACTICE 10/26/23 04/21/24 Erika Carreon NP [address] [place] [phone] PCP - General NURSE PRACTITIONER 04/22/24 08/02/24 Pelon Rodriguez MD [address] [place] [phone] PCP - General FAMILY PRACTICE 08/03/24 Tony Mcelroy MD [address] [facility] [address] [place] [address] CARDIOVASCULAR DISEASE 04/29/24 Bar Alegria MD [address] [facility] [address] [place] [address] INTERNAL MEDICINE 04/29/24 documented as of this encounter
--- OUTSIDE RECORDS SUMMARY | 2024-08-28 22:24 | XMS_ITS | Referral Summary ---
Author Organization [facility] [address] Address [address] [place] [address] Care Team Providers Care Vibratory Pile Driver Name Role Phone Pelon Rodriguez MD Primary Care Provi panda Erich Infante MD Unavailable [phone] Simran Pruett Unavailable Unavailable Encounters Date Type Department Care Team Description 08/23/2024 SHOP/CHAP Initial Outreach [facility] OP CASE MANAGEMENT [address] [place] [address] Angelic Melton RN 08/23/2024 SHOP/CHAP Initial Eligibility Review [facility] OP CASE MANAGEMENT [address] [place] [address] Angelic Melton RN 08/15/2024 6:09 AM CDT - 08/21/2024 2:06 PM CDT Hospital Encounter [facility] 1 [place] [address] Wenceslao Reina MD Fre[place], MD Aubrey Alfonso, Jesse Arvizu MD Cardiogenic shock (HCC) (Primary Dx) Discharge Disposition: Discharge to home or self care 08/16/2024 [facility] CHW Eligibility Review [facility] Community Health Worker [address] [place] [address] [address] [place] [address] Lindsey Jiang 08/13/2024 Telephone [facility] and [facility] Transplant Heart [address] [facility] [address] Mailstop -[phone] [place] [address] Ginette Chavez RN 08/11/2024 Telephone [facility] and [facility] Transplant Heart [address] Mailstop 29-226 [place] [address] Reena Ames 08/10/[address] [facility] Medical Group Cardiology [address] [facility] [address] [address] Tony Mcelroy MD critical postassium level 08/06/[address] [facility] Medical [facility] Cardiology [address] [facility] [address] [place] [phone] Tony Mcelroy MD 08/05/[address] [facility] Medical [facility] Cardiology [address] [facility] [address] [place] [phone] Kelly Friend NP 08/03/[address] [facility] Medical [facility] Cardiology [address] [facility] [address] [place] [address] [phone] Wilbert Humphreys MD 07/27/2024 Telephone [facility] and [facility] Transplant Heart [address] [facility] [address] Mailop -[phone] [place] [address] Ginette Chavez RN 07/27/2024 9:45 AM CDT Office Visit [facility] Cardiology [facility] Medical Office Building 3 [address] [place] [address] Erich Infante MD Chronic combined systolic and diastolic congestive heart failure (HCC) (Primary Dx); Receiving inotropic medication; Alcoholic cardiomyopathy (HCC); Alcohol intoxication in active alcoholic; Marijuana use; High risk medication use 07/22/2024 Telephone [facility] and [facility] Transplant Heart [address] Mailstop -[phone] [place] [address] Reena Ames 07/15/[address] [facility] Home Care Services [address] [place] [address] [address] [place] [address] Unknown, Notinfile 06/24/2024 Results Follow-Up [facility] 1 [facility] [place] [address] Erich Infante MD 06/24/2024 Telephone [facility] Cardiology [address] [facility] 8th [place] [address] [place] [phone] Erich Infante MD 06/23/2024 Telephone [facility] and [facility] Transplant Heart [address] [facility] [address] Mailstop [phone] [place] [address] Royal Lozada 06/23/2024 Telephone [facility] and [facility] Transplant Heart [address] [facility] [address] [address] Mailstop [phone] [place] [address] John Teixeira RN 06/23/2024 10:00 AM PROCESS CONTROL PROGRAMMER Office Visit [facility] Cardiology [address] [place] [address] Office Building [address] [place] [address] Lurdes Chiang NP Chronic systolic heart failure (HCC) (Primary Dx) 06/23/2024 8:30 AM PROCESS CONTROL PROGRAMMER Ancillary Procedure [facility] [address] [place] [address] [address] [place] [address] Chronic combined systolic and diastolic congestive heart failure (HCC) 06/23/2024 Telephone [facility] Cardiology [address] [place] [address] Medical Office Building [address] [place] [address] Lurdes Chiang NP from Last 3 Months [...] 2 (two) times a day 30 tablet 08/22/19 25 Active insulin lispro (HumaLOG) 100 unit/mL pen for injection Inject 3 Units under the skin 3 (three) times a day with meals 15 mL 1 08/22/19 25 Active pen needle, diabetic 32 gauge x /32 needle Use as directed 3 times a day. 100 each 08/22/19 25 Active empagliflozin (JARDIANCE) 10 mg tablet Take 1 tablet (10 mg total) by mouth daily 30 tablet 11 04/16/20 24 Discontinu ed(Stop Taking at Discharge) losartan (COZAAR) 25 mg tablet Take 1 tablet (25 mg total) by mouth daily 90 tablet 3 06/23/19 25 025 Discontinu ed(Stop Taking at Discharge) milrinone in dextrose 5% (PRIMACOR) 40 mg/200 mL (200 mcg/mL) infusion Infuse 6.35 mcg/min into a venous catheter continuously 200 mL 06/24/19 25 025 Discontinu ed(Stop Taking at Discharge) potassium chloride ER (KLOR-CON) 20 mEq CR tabletIndications :Hypokalemia Take 1 tablet (20 mEq total) by mouth 4 (four) times a day for 2 days 8 tablet 08/12/19 25 025 Discontinu ed(Stop Taking at Discharge) oxyCODONE [...] Not painful. Suspect contact dermatitis. - topical emollientsjayla Assessment & Plan (08/20/2024 11:59 AM CDT): Pruritic with some local erythema around prior IV insertion (EJ line?). Does not seem to be spreading. Not painful. Suspect contact dermatitis. - topical emollientslouisna Assessment & Plan (08/19/2024 7:19 PM CDT): Pruritic with some local erythema around prior IV insertion (EJ line?). Does not seem to be spreading. Not painful. Suspect contact dermatitis. - topical emollients sarna Type 1 diabetes mellitus 08/16/2024 Assessment [...] formal TTE ordered. Consulted heart failure service. Social History Tobacco Use Types Packs/Day Years Used Date Smoking Tobacco: Former Cigarettes Passive Smoke Exposure: Never Smokeless Tobacco: Former Tobacco Cessation:Counseling Given: Not Answered [facility] Utilities Answer Date Recorded In the past 12 months has [employer] gas, oil, or water [employer] threatened to shut off services in your [...] often do you attend chur ch or jew services? Never 08/19/2024 Do you belong to any clubs o r organizations such as islam groups, unions, fraternal or athletic groups, or [...] any time in the past 12 m [facility]x [place], were you homeless or living in a nursing home (including now)? No 08/19/2024 Personal Safety Answer Date Recorded Have you ever been in or are you currently in a harmful physical or emotional relationship or is someone making you feel afraid or unsafe? Patient unable to answer 08/15/2024 Sex and Gender Information Value Date Recorded Sex Assigned at Not on file Legal Sex Male 9:52 PM PROCESS CONTROL PROGRAMMER Gender Identity Not on file Sexual [...] 08/15/2024 10:58 AM CDT Plan of Treatment Not on [...] DEVICE Routine 08/15/2024 1 0:51 AM CDT IA INSJ NON-TUNNELED CENTRAL VENOUS CATH AGE 5 YR/> Routine 08/15/2024 9:58 AM CDT Cardiogenic shock (HCC) POC BLOOD GAS AND CHEMISTRIES, ARTERIAL Routine 08/15/2024 9:57 AM CDT URINALYSIS, MICROSCOPIC ONLY Routine 08/15/2024 9:56 AM CDT URINALYSIS AND REFLEX TO MICROSCOPIC AND CULTURE Routine 08/15/2024 9:56 AM CDT IA ARTL CATHJ/CANNULJ MNTR/TRANSFUSION SPX PRQ Routine 08/15/2024 [...] DOPPLER/CF W CONTRAST Routine 06/23/2024 9:34 AM PROCESS CONTROL PROGRAMMER Chronic combined systolic and diastolic congestive heart failure (HCC) POCT LIPID PANEL Routine 04/16/2024 3:29 PM PROCESS CONTROL PROGRAMMER Chronic systolic congestive heart failure (HCC) from Last 3 Months or Most Recently Relevant to Health Maintenance Results * (ABNORMAL) POCT glucose (08/21/2024 8:12 AM CDT) Glucose, POC 264(H) 70 - 199 mg/dL Blood 08/21/2024 8:12 AM CDT 08/21/2024 8:12 AM CDT us Jesse Burgos MD LAB POCT ORDERABLES - DEVICE Fi nal Result [facility] One [facility] [place] [address] * eGFR (08/21/2024 5:01 AM CDT) eGFR [...] ORDERABLES Final Resu lt Performing Organization Address [facility]/ZIP Co de Phone Number [facility] [place] [address] * Phosphorus (08/21/2024 5:01 AM CDT) Phosphorus, pl 3.4 2.3 - 4.5 mg/dL Blood 08/21/2024 5:01 AM CDT 08/21/2024 6:09 AM CDT Jesse Burgos MD LAB BLOOD ORDERABLES Final Resu lt Performing Organization Address [facility] Co de Phone Number [facility] [place] [address] * (ABNORMAL) Basic metabolic panel (08/21/2024 5:01 AM CDT) Sodium 138 135 - 145 mmol/L Potassium, pl 4.4 3.3 - 4.9 mmol/L [facility] Chloride 95(L) 97 - 110 mmol/L [facility] CO2 33(H) 22 - 32 mmol/L [facility] Anion gap 10 2 - 15 mmol/L [facility] BUN 25 6 - 25 mg/dL [facility] Creatinine 0.74(L) 0.80 - 1.30 mg/dL [facility] Glucose 233(H) 70 - 199 mg/dL [facility] Comment: Interpretive Data Fasting glucose >/= 126 [...] 2022. Calcium 10.0 8.5 - 10.3 mg/dL [facility] Blood 08/21/2024 5:01 AM CDT 08/21/2024 6:09 AM CDT Jesse Burgos MD LAB BLOOD ORDERABLES Final Resu lt Performing Organization Address [facility] Co de Phone Number [facility] [place] [place] [address] * POCT glucose (08/20/2024 8:03 PM CDT) Glucose, POC 83 70 - 199 mg/dL Blood 08/20/2024 8:03 PM CDT 08/20/2024 8:03 PM CDT Jesse Burgos MD LAB POCT ORDERABLES - DEVICE Fi nal Result Performing Organization Address [facility] de Phone Number [facility] Department [place] [address] * POCT glucose (08/20/2024 4:52 PM CDT) Glucose, POC 154 70 - 199 mg/dL Blood 08/20/2024 4:52 PM CDT 08/20/2024 4:52 PM CDT Jesse Burgos MD LAB POCT ORDERABLES - DEVICE Fi nal Result Performing Organization Address [facility] Co de Phone Number [facility] [place] [employer] [place] [address] * (ABNORMAL) POCT glucose (08/20/2024 12:27 PM CDT) Glucose, POC 210(H) 70 - 199 mg/dL Blood 08/20/2024 12:2 7 PM CDT 08/20/2024 12:27 PM CDT Jesse Burgos MD LAB POCT ORDERABLES - DEVICE Fi nal Result Performing Organization Address [facility] Co de Phone Number [facility] [place] [place] [address] * POCT glucose (08/20/2024 8:27 AM CDT) Glucose, POC 95 70 - 199 mg/dL Blood 08/20/2024 8:27 AM CDT 08/20/2024 8:27 AM CDT Jesse Burgos MD LAB POCT ORDERABLES - DEVICE Fi nal Result Performing Organization Address [facility] de Phone Number [facility] Department [place] [address] * eGFR (08/20/2024 4:05 AM CDT) eGFR [...] ORDERABLES Final Resu lt Performing Organization Address [facility]/ZIP Co de Phone Number [facility] [place] [address] * Phosphorus (08/20/2024 4:05 AM CDT) Phosphorus, pl 4.4 2.3 - 4.5 mg/dL Blood 08/20/2024 4:05 AM CDT 08/20/2024 4:49 AM CDT Jesse Burgos MD LAB BLOOD ORDERABLES Final Resu lt Performing Organization Address [facility] de Phone Number [facility] [place] [place] [address] * (ABNORMAL) Basic metabolic panel (08/20/2024 4:05 AM CDT) Sodium 139 135 - 145 mmol/L Potassium, pl 4.3 3.3 - 4.9 mmol/L [facility] Chloride 96(L) 97 - 110 mmol/L [facility] CO2 36(H) 22 - 32 mmol/L [facility] Anion gap 7 2 - 15 mmol/L [facility] BUN 22 6 - 25 mg/dL [facility] Creatinine 0.67(L) 0.80 - 1.30 mg/dL [facility] Glucose 115 70 - 199 mg/dL [facility] Comment: Interpretive Data Fasting glucose >/= 126 [...] 2022. Calcium 10.0 8.5 - 10.3 mg/dL [facility] Blood 08/20/2024 4:05 AM CDT 08/20/2024 4:49 AM CDT Jesse Burgos MD LAB BLOOD ORDERABLES Final Resu lt Performing Organization Address [facility] Co de Phone Number [facility] [place] [place] [address] * POCT glucose (08/19/2024 7:41 PM CDT) Glucose, POC 146 70 - 199 mg/dL Blood 08/19/2024 7:41 PM CDT 08/19/2024 7:41 PM CDT Jesse Burgos MD LAB POCT ORDERABLES - DEVICE Fi nal Result Performing Organization Address [facility] Co de Phone Number [facility] [place] [place] [address] * POCT glucose (08/19/2024 5:27 PM CDT) Glucose, POC 175 70 - 199 mg/dL Blood 08/19/2024 5:27 PM CDT 08/19/2024 5:27 PM CDT Jesse Burgos MD LAB POCT ORDERABLES - DEVICE Fi nal Result Performing Organization Address [facility] Co de Phone Number [facility] [place] [place] [address] * POCT glucose (08/19/2024 3:56 PM CDT) Glucose, POC 92 70 - 199 mg/dL Blood 08/19/2024 3:56 PM CDT 08/19/2024 3:56 PM CDT Jesse Burgos MD LAB POCT ORDERABLES - DEVICE Fi nal Result Performing Organization Address [facility] Co de Phone Number [facility] [place] [address] * POCT glucose (08/19/2024 11:47 AM CDT) Glucose, POC 162 70 - 199 mg/dL Blood 08/19/2024 11:4 7 AM CDT 08/19/2024 11:47 AM CDT Jesse Burgos MD LAB POCT ORDERABLES - DEVICE Fi nal Result Performing Organization Address [facility] Co de Phone Number [facility] [place] [address] * POCT glucose (08/19/2024 8:13 AM CDT) Glucose, POC 114 70 - 199 mg/dL Blood 08/19/2024 8:13 AM CDT 08/19/2024 8:13 AM CDT Jesse Burgos MD LAB POCT ORDERABLES - DEVICE Fi nal Result Performing Organization Address [facility] Co de Phone Number [facility] [place] [address] * POCT glucose (08/19/2024 5:31 AM CDT) Glucose, POC 121 70 - 199 mg/dL Blood 08/19/2024 5:31 AM CDT 08/19/2024 5:31 AM CDT us Jesse Burgos MD LAB POCT ORDERABLES - DEVICE Fi nal Result Performing Organization Address [facility] Co de Phone Number [facility] Department [place] [address] * eGFR (08/19/2024 5:25 AM CDT) eGFR [...] ORDERABLES Final Resu lt Performing Organization Address [facility]/ZIP Co de Phone Number [facility] [place] [address] * (ABNORMAL) Basic metabolic panel (08/19/2024 5:25 AM CDT) Sodium 138 135 - 145 mmol/L Potassium, pl 4.3 3.3 - 4.9 mmol/L [facility] Chloride 94(L) 97 - 110 mmol/L [facility] CO2 36(H) 22 - 32 mmol/L [facility] Anion gap 8 2 - 15 mmol/L [facility] BUN 24 6 - 25 mg/dL [facility] Creatinine 0.66(L) 0.80 - 1.30 mg/dL [facility] Glucose 104 70 - 199 mg/dL [facility] Comment: Interpretive Data Fasting glucose >/= 126 [...] 2022. Calcium 10.4(H) 8.5 - 10.3 mg/dL [facility] Blood 08/19/2024 5:25 AM CDT 08/19/2024 5:56 AM CDT us Jesse Burgos MD LAB BLOOD ORDERABLES Final Resu lt [facility] [place] [address] * POCT glucose (08/18/2024 8:45 PM CDT) Glucose, POC 127 70 - 199 mg/dL Blood 08/18/2024 8:45 PM CDT 08/18/2024 8:45 PM CDT us Jesse Burgos MD LAB POCT ORDERABLES - DEVICE Fi nal Result [facility] [place] [address] * POCT glucose (08/18/2024 7:52 PM CDT) Glucose, POC 79 70 - 199 mg/dL Blood 08/18/2024 7:52 PM CDT 08/18/2024 7:52 PM CDT Jesse Burgos MD LAB POCT ORDERABLES - DEVICE Fi nal Result Performing Organization Address [facility] Co de Phone Number [facility] [place] [address] * (ABNORMAL) POCT glucose (08/18/2024 7:31 PM CDT) Glucose, POC 42(C) 70 - 199 mg/dL Comment:Glu2: RN/MD Notified Glucose comment 1 Glu2: RN/MD Notified [facility] Blood 08/18/2024 7:31 PM CDT 08/18/2024 7:31 PM CDT Jesse Burgos MD LAB POCT ORDERABLES - DEVICE Fi nal Result Performing Organization Address [facility] Co de Phone Number [facility] [place] [address] * POCT glucose (08/18/2024 4:42 PM CDT) Glucose, POC 122 70 - 199 mg/dL Blood 08/18/2024 4:42 PM CDT 08/18/2024 4:42 PM CDT Jesse Burgos MD LAB POCT ORDERABLES - DEVICE Fi nal Result Performing Organization Address [facility] [place] [address] * (ABNORMAL) POCT glucose (08/18/2024 12:09 PM CDT) Glucose, POC 202(H) 70 - 199 mg/dL Blood 08/18/2024 12:0 9 PM CDT 08/18/2024 12:09 PM CDT Jesse Burgos MD LAB POCT ORDERABLES - DEVICE Fi nal Result Performing Organization Address [facility] Co de Phone Number [facility] [place] [address] * POCT glucose (08/18/2024 8:10 AM CDT) Glucose, POC 82 70 - 199 mg/dL Blood 08/18/2024 8:10 AM CDT 08/18/2024 8:10 AM CDT Jesse Burgos MD LAB POCT ORDERABLES - DEVICE Fi nal Result Performing Organization Address [facility] de Phone Number [facility] [place] [address] * eGFR (08/18/2024 6:19 AM CDT) eGFR [...] ORDERABLES Final Resu lt Performing Organization Address [facility] Co de Phone Number [facility] [place] [place] [address] * HIV 1/2 Antibody plus p24 Antigen Blood (08/18/2024 6:19 AM CDT) Pathologist [facility] HIV 1/2 ab + p24 ag Nonreactive [...] ORDE RABLES Final Result Performing Organization Address [facility] [place] [address] * Hepatitis C antibody Blood (08/18/2024 6:19 AM CDT) Pathologist [facility] Hep C Ab Nonreactive Nonreactive Comment:Antibodies to HCV no t detected. Does NOT exclude the possibility of recent exposure to HCV. Current interpretive data was last revised on 22 Blood 08/18/2024 6:19 AM CDT 08/18/2024 6:44 AM CDT Jesse Burgos MD LAB MICROBIOLOGY - GENERAL ORDJoshua BOJORQUEZ Final Result Performing Organization Address [facility] Co de Phone Number [facility] [place] [place] [address] * RPR Blood (08/18/2024 6:19 AM CDT) RPR Nonreactive Nonreactive Blood 08/18/2024 6:19 AM CDT 08/18/2024 6:44 AM CDT us Jesse Burgos MD LAB MICROBIOLOGY - GENERAL ORDJoshua RABCRYSTAL Final Result Performing Organization Address [facility] Co de Phone Number [facility] [place] [address] * Hepatitis B Surface Antigen Blood (08/18/2024 6:19 AM CDT) HepBsAg Nonreactive Nonreactive Blood 08/18/2024 6:19 AM CDT 08/18/2024 6:44 AM CDT us Jesse Burgos MD LAB MICROBIOLOGY - GENERAL SHREYA BOJORQUEZ Final Result Performing Organization Address [facility] de Phone Number [facility] [place] [address] * Phosphorus (08/18/2024 6:19 AM CDT) Phosphorus, pl 2.9 2.3 - 4.5 mg/dL Blood 08/18/2024 6:19 AM CDT 08/18/2024 6:44 AM CDT us Wenceslao Reina MD LAB BLOOD ORDERABLES Final R esult Performing Organization Address [facility] Co de Phone Number [facility] [place] [address] * Creatine kinase (CK), total (08/18/2024 6:19 AM CDT) CK 207 40 - 300 Units/L Blood 08/18/2024 6:19 AM CDT 08/18/2024 6:44 AM CDT us Jesse Burgos MD LAB BLOOD ORDERABLES Final Resu lt [place] [facility] [place] [address] * (ABNORMAL) Basic metabolic panel (08/18/2024 6:19 AM CDT) Sodium 137 135 - 145 mmol/L Potassium, pl 3.9 3.3 - 4.9 mmol/L [facility] Chloride 93(L) 97 - 110 mmol/L [facility] CO2 36(H) 22 - 32 mmol/L [facility] Anion gap 8 2 - 15 mmol/L [facility] BUN 21 6 - 25 mg/dL [facility] Creatinine 0.59(L) 0.80 - 1.30 mg/dL [facility] Glucose 96 70 - 199 mg/dL [facility] Comment: Interpretive Data Fasting glucose >/= 126 [...] 2022. Calcium 9.4 8.5 - 10.3 mg/dL [facility] Blood 08/18/2024 6:19 AM CDT 08/18/2024 6:44 AM CDT us Jesse Burgos MD LAB BLOOD ORDERABLES Final Resu lt [place] B[facility] [place] [address] * POCT glucose (08/17/2024 7:55 PM CDT) Glucose, POC 172 70 - 199 mg/dL Blood 08/17/2024 7:55 PM CDT 08/17/2024 7:55 PM CDT Jesse Burgos MD LAB POCT ORDERABLES - DEVICE Fi nal Result Performing Organization Address [facility] de Phone Number [facility] [place] [address] * POCT glucose (08/17/2024 5:04 PM CDT) Glucose, POC 188 70 - 199 mg/dL Blood 08/17/2024 5:04 PM CDT 08/17/2024 5:04 PM CDT us Jesse Burgos MD LAB POCT ORDERABLES - DEVICE Fi nal Result Performing Organization Address [facility] Phone Number [facility] [place] [address] * POCT glucose (08/17/2024 11:11 AM CDT) Glucose, POC 163 70 - 199 mg/dL Blood 08/17/2024 11:1 1 AM CDT 08/17/2024 11:11 AM CDT us Jesse Burgos MD LAB POCT ORDERABLES - DEVICE Fi nal Result Performing Organization Address [facility] de Phone Number [facility] [place] [address] * Lactate (08/17/2024 10:58 AM CDT) Lactate 1.6 0.7 - 2.0 mmol/L Blood 08/17/2024 10:5 8 AM CDT 08/17/2024 12:40 PM CDT Jesse Burgos MD LAB BLOOD ORDERABLES Final Resu lt Performing Organization Address [facility]/ZIP Co de Phone Number [facility] [place] [address] * POCT glucose (08/17/2024 7:38 AM CDT) Pathologist [facility] Glucose, POC 144 70 - 199 mg/dL Blood 08/17/2024 7:38 AM CDT 08/17/2024 7:38 AM CDT us Jesse Burgos MD LAB POCT ORDERABLES - DEVICE Fi nal Result Performing Organization Address [facility] de Phone Number [facility] [place] [address] * eGFR (08/17/2024 6:06 AM CDT) [facility] eGFR >90 >=60 mL/min/1. 73 m2 Comment: [...] ORDERABLES Chelsea l Result Performing Organization Address [facility] Co de Phone Number [facility] [place] [address] * (ABNORMAL) Iron profile w/ IBC (08/17/2024 6:06 AM CDT) [facility] Iron 38(L) 50 - 150 mcg/dL TIBC 200(L) 250 - 400 mcg/dL [facility] [facility] Transferrin saturation 19(L) 20 - 50 % [facility] Blood 08/17/2024 6:06 AM CDT 08/17/2024 6:49 AM CDT us Isaiah Segura MD LAB BLOOD ORDERABLES Chelsea rainey Result [facility] [place] [address] * (ABNORMAL) CBC without differential (08/17/2024 6:06 AM CDT) [facility] WBC 7.55 3.80 - 9.90 K/cumm Hgb 10.3(L) 13.0 - 17.5 g/dL [facility] Hct 31.9(L) 38.9 - 50.3 % [facility] Plt 150 150 - 400 K/cumm [facility] MPV 9.1 9.1 - 12.3 fL [facility] RBC 3.58(L) 4.30 - 5.80 M/cumm [facility] MCV 89.1 81.3 - 96.4 fL [facility] MCH 28.8 27.1 - 33.3 pg [facility] MCHC 32.3 32.3 - 35.7 g/dL [facility] RDW CV 15.4(H) 11.1 - 14.9 % [facility] RDW SD 50.7(H) 35.7 - 48.1 fL [facility] NRBC abs 0.00 0.00 - 0.01 K/cumm [facility] Blood 08/17/2024 6:06 AM CDT 08/17/2024 6:49 AM CDT us Isaiah Segura MD LAB BLOOD ORDERABLES Chelsea l Result Performing Organization Address [facility]/ZIP Co de Phone Number [facility] [place] [employer] [place] [address] * Phosphorus (08/17/2024 6:06 AM CDT) Phosphorus, pl 2.3 2.3 - 4.5 mg/dL Blood 08/17/2024 6:06 AM CDT 08/17/2024 6:49 AM CDT us Wenceslao Reina MD LAB BLOOD ORDERABLES Final R esult Performing Organization Address [facility] Co de Phone Number [facility] [place] [employer] [place] [address] * Magnesium (08/17/2024 6:06 AM CDT) Magnesium 2.1 1.4 - 2.5 mg/dL Blood 08/17/2024 6:06 AM CDT 08/17/2024 6:49 AM CDT us Isaiah Segura MD LAB BLOOD ORDERABLES Chelsea l Result Performing Organization Address [facility] Co de Phone Number [facility] [place] [place] [address] * Folate (08/17/2024 6:06 AM CDT) Folic acid >20.0 >=5.0 ng/mL Blood 08/17/2024 6:06 AM CDT 08/17/2024 6:49 AM CDT us Isaiah Segura MD LAB BLOOD ORDERABLES Chelsea l Result Performing Organization Address [facility]/ZIP Co de Phone Number [facility] [place] [address] * Ferritin (08/17/2024 6:06 AM CDT) [facility] Ferritin 234 30 - 400 ng/mL Blood 08/17/2024 6:06 AM CDT 08/17/2024 6:49 AM CDT Isaiah Segura MD LAB BLOOD ORDERABLES Chelsea l Result Performing Organization Address [facility] Co de Phone Number [facility] [place] [address] * (ABNORMAL) Vitamin B12 (08/17/2024 6:06 AM CDT) [facility] Vitamin B12 1,618(H) 230 - 1,250 pg/mL Blood 08/17/2024 6:06 AM CDT 08/17/2024 6:49 AM CDT Isaiah Segura MD LAB BLOOD ORDERABLES Chelsea l Result Performing Organization Address [facility] de Phone Number [facility] [place] [address] * (ABNORMAL) Basic metabolic panel (08/17/2024 6:06 AM CDT) [facility] Sodium 135 135 - 145 mmol/L Potassium, pl 3.6 3.3 - 4.9 mmol/L [facility] Chloride 92(L) 97 - 110 mmol/L [facility] CO2 36(H) 22 - 32 mmol/L [facility] Anion gap 7 2 - 15 mmol/L [facility] BUN 14 6 - 25 mg/dL [facility] Creatinine 0.78(L) 0.80 - 1.30 mg/dL [facility] Glucose 124 70 - 199 mg/dL [facility] Comment: Interpretive Data Fasting glucose >/= 126 [...] 2022. Calcium 9.2 8.5 - 10.3 mg/dL [facility] Blood 08/17/2024 6:06 AM CDT 08/17/2024 6:49 AM CDT Isaiah Segura MD LAB BLOOD ORDERABLES Chelsea l Result Performing Organization Address [facility] Co de Phone Number [facility] [place] [place] [address] * POCT glucose (08/16/2024 9:19 PM CDT) Glucose, POC 173 70 - 199 mg/dL Blood 08/16/2024 9:19 PM CDT 08/16/2024 9:19 PM CDT Isaiah Segura MD LAB POCT ORDERABLES - DEV ICE Final Result Performing Organization Address [facility] de Phone Number [facility] Department [place] [place] [address] * POCT glucose (08/16/2024 9:10 PM CDT) Glucose, POC 192 70 - 199 mg/dL Blood 08/16/2024 9:10 PM CDT 08/16/2024 9:10 PM CDT Isaiah Segura MD LAB POCT ORDERABLES - DEV ICE Final Result Performing Organization Address [facility] Co de Phone Number [facility] [place] [address] * Lactate (08/16/2024 7:03 PM CDT) Lactate 1.6 0.7 - 2.0 mmol/L Blood 08/16/2024 7:03 PM CDT 08/16/2024 7:17 PM CDT Isaiah Segura MD LAB BLOOD ORDERABLES Chelsea l Result Performing Organization Address [facility]/ZIP Co de Phone Number [facility] [place] [address] * POCT glucose (08/16/2024 5:13 PM CDT) Glucose, POC 125 70 - 199 mg/dL Blood 08/16/2024 5:13 PM CDT 08/16/2024 5:13 PM CDT Isaiah Segura MD LAB POCT ORDERABLES - DEV ICE Final Result Performing Organization Address [facility] Co de Phone Number [facility] [place] [place] [address] * Lactate (08/16/2024 4:56 PM CDT) Lactate 1.2 0.7 - 2.0 mmol/L Blood 08/16/2024 4:56 PM CDT 08/16/2024 5:29 PM CDT Isaiah Segura MD LAB BLOOD ORDERABLES Chelsea l Result Performing Organization Address [facility] Co de Phone Number [facility] [place] [address] * (ABNORMAL) POCT glucose (08/16/2024 11:23 AM CDT) Glucose, POC 269(H) 70 - 199 mg/dL Blood 08/16/2024 11:2 3 AM CDT 08/16/2024 11:23 AM CDT us Isaiah Segura MD LAB POCT ORDERABLES - DEV ICE Final Result [facility] [place] [address] * TRANSTHORACIC ECHO (TTE) COMPLETE W DOPPLER/CF W CONTRAST (08/16/2024 11:21 AM CDT) Anatomical Region Laterality Modality Ultrasound 08/16/2024 10:0 1 AM CDT Narrative 08/16/2024 11:58 AM CDT [facility] [place] [address] Transthoracic Echocardiographic Report Patient Name: SOPHIA HANNA STEPHEN : 1990 (34y 3m) Gender: M Study Date: 08/16/2024 10:01:37 AM Ht(Inch): 72 Wt(Lb): 138.01 BSA: 1.78 Repairer Handtools: Patricia Carmichael RDCS Location: [id number] Order Provider: WENCESLAO REINA Heart Rate: 106 [...] Procedure Note Re Bautista MD - 08/16/2024 [facility] [place] [address] Transthoracic Echocardiographic Report Patient Name: SOPHIA HANNA STEPHEN : 1990 (34y 3m) Gender: M Study Date: 08/16/2024 10:01:37 AM Ht(Inch): 72 Wt(Lb): 138.01 BSA: 1.78 Repairer Handtools: Patricia Carmichael RDCS Location: [id number] Order Provider:WENCESLAO REINA Heart Rate: 106 BMI: [...] LA Length 4C 3.89 cm MV Decel Deuz811.48 msec [ 104.00 - 258.00 ] LA [...] LAB BLOOD ORDERABLES Chelsea l Result [facility] One [facility] Department [place] [address] * (ABNORMAL) POCT glucose (08/16/2024 9:06 AM CDT) Glucose, POC 287(H) 70 - 199 mg/dL Blood 08/16/2024 9:06 AM CDT 08/16/2024 9:06 AM CDT us Isaiah Segura MD LAB POCT ORDERABLES - DEV ICE Final Result Performing Organization Address [facility] Co de Phone Number [facility] Department [place] [address] * eGFR (08/16/2024 9:01 AM CDT) eGFR [...] ORDERABLES Final R esult Performing Organization Address [facility]/ZIP Co de Phone Number [facility] [place] [address] * (ABNORMAL) CBC without differential (08/16/2024 9:01 AM CDT) WBC 10.14(H) 3.80 - 9.90 K/cumm Hgb 11.4(L) 13.0 - 17.5 g/dL [facility] Hct 34.3(L) 38.9 - 50.3 % [facility] Plt 174 150 - 400 K/cumm [facility] MPV 9.6 9.1 - 12.3 fL [facility] RBC 3.92(L) 4.30 - 5.80 M/cumm [facility] MCV 87.5 81.3 - 96.4 fL [facility] MCH 29.1 27.1 - 33.3 pg [facility] MCHC 33.2 32.3 - 35.7 g/dL [facility] RDW CV 15.2(H) 11.1 - 14.9 % [facility] RDW SD 48.6(H) 35.7 - 48.1 fL [facility] NRBC abs 0.00 0.00 - 0.01 K/cumm [facility] Blood 08/16/2024 9:01 AM CDT 08/16/2024 10:05 AM CDT Wenceslao Reina MD LAB BLOOD ORDERABLES Final R esult [facility] One [facility] [place] [address] * (ABNORMAL) Basic metabolic panel (08/16/2024 9:01 AM CDT) Sodium 130(L) 135 - 145 mmol/L Potassium, pl 3.5 3.3 - 4.9 mmol/L [facility] Chloride 86(L) 97 - 110 mmol/L [facility] CO2 36(H) 22 - 32 mmol/L [facility] Anion gap 8 2 - 15 mmol/L [facility] BUN 8 6 - 25 mg/dL [facility] Creatinine 0.65(L) 0.80 - 1.30 mg/dL [facility] Glucose 189 70 - 199 mg/dL [facility] Comment: Interpretive Data Fasting glucose >/= 126 [...] 2022. Calcium 9.2 8.5 - 10.3 mg/dL [facility] Blood 08/16/2024 9:01 AM CDT 08/16/2024 10:05 AM CDT Wenceslao Reina MD LAB BLOOD ORDERABLES Final R esult Performing Organization Address [facility] Co de Phone Number [facility] [place] [address] * Calcium, ionized (08/16/2024 5:40 AM CDT) Calcium, Ionized 4.59 4.50 - 5.10 mg/dL Blood 08/16/2024 5:40 AM CDT 08/16/2024 5:56 AM CDT Wenceslao Reina MD LAB BLOOD ORDERABLES Final R esult Performing Organization Address [facility] Co de Phone Number [facility] [place] [address] * (ABNORMAL) Phosphorus (08/16/2024 5:40 AM CDT) Phosphorus, pl 1.3(L) 2.3 - 4.5 mg/dL Blood 08/16/2024 5:40 AM CDT 08/16/2024 5:56 AM CDT Wenceslao Reina MD LAB BLOOD ORDERABLES Final R esult Performing Organization Address [facility] Co de Phone Number [facility] [place] [address] * (ABNORMAL) Hepatic function panel (08/16/2024 5:40 AM CDT) [facility] Bilirubin, total 0.5 0.1 - 1.2 mg/dL Bilirubin, direct 0.2 0.1 - 0.3 mg/dL [facility] Protein, pl 6.5 6.5 - 8.5 g/dL [facility] Albumin 4.2 3.5 - 5.0 g/dL [facility] Alk phos 69 40 - 130 Units/L [facility] ALT 52 7 - 55 Units/L [facility] AST 88(H) 10 - 50 Units/L [facility] Blood 08/16/2024 5:40 AM CDT 08/16/2024 5:56 AM CDT Wenceslao Reina MD LAB BLOOD ORDERABLES Final R esult Performing Organization Address [facility]/ZIP Co de Phone Number [facility] [place] [address] * POCT glucose (08/16/2024 3:49 AM CDT) [facility] Glucose, POC 179 70 - 199 mg/dL Blood 08/16/2024 3:49 AM CDT 08/16/2024 3:49 AM CDT Wenceslao Reina MD LAB POCT ORDERABLES - DEVICE Final Result Performing Organization Address [facility] Co de Phone Number [facility] [place] [address] * Oxyhemoglobin, pulmonary artery (08/15/2024 11:30 PM CDT) [facility] Oxyhemoglobin, PA 67.9 % Comment: Interpretive Data No reference range established. Current interpretive data was last revised 2019. Blood 08/15/2024 11:3 0 PM CDT 08/15/2024 11:49 PM CDT Wenceslao Reina MD LAB BLOOD ORDERABLES Final R esult Performing Organization Address [facility] Co de Phone Number [facility] [place] [address] * (ABNORMAL) Hemoglobin total, pulmonary artery (08/15/2024 11:30 PM CDT) Hemoglobin total, PA 11.6(L) 13.0 - 17.5 g/dL Blood 08/15/2024 11:3 0 PM CDT 08/15/2024 11:49 PM CDT Wenceslao Reina MD LAB BLOOD ORDERABLES Final R esult Performing Organization Address [facility] Co de Phone Number [facility] [place] [address] * POCT glucose (08/15/2024 11:30 PM CDT) Glucose, POC 186 70 - 199 mg/dL Blood 08/15/2024 11:3 0 PM CDT 08/15/2024 11:30 PM CDT Result [facility] Wenceslao Reina MD LAB POCT ORDERABLES - DEVICE Final Result Performing Organization Address [facility] Co de Phone Number [facility] [place] [address] * Lactate, whole blood (08/15/2024 11:30 PM CDT) Lactate, bld 1.8 0.7 - 2.0 mmol/L Blood 08/15/2024 11:3 0 PM CDT 08/15/2024 11:49 PM CDT Wenceslao Reina MD LAB BLOOD ORDERABLES Final R esult Performing Organization Address [facility] de Phone Number [facility] [place] [address] * eGFR (08/15/2024 9:17 PM CDT) eGFR [...] ORDERABLES Final R esult Performing Organization Address [facility] de Phone Number [facility] [place] [address] * Magnesium (08/15/2024 9:17 PM CDT) Magnesium 2.1 1.4 - 2.5 mg/dL Blood 08/15/2024 9:17 PM CDT 08/15/2024 9:48 PM CDT us Mumtaz Juan MD LAB BLOOD ORDERABLES Fi nal Result Performing Organization Address [facility]/ZIP Co de Phone Number [facility] [place] [address] * (ABNORMAL) Basic metabolic panel (08/15/2024 9:17 PM CDT) Sodium 130(L) 135 - 145 mmol/L Potassium, pl 4.2 3.3 - 4.9 mmol/L [facility] Chloride 87(L) 97 - 110 mmol/L [facility] CO2 34(H) 22 - 32 mmol/L [facility] Anion gap 9 2 - 15 mmol/L [facility] BUN 10 6 - 25 mg/dL [facility] Creatinine 0.77(L) 0.80 - 1.30 mg/dL [facility] Glucose 133 70 - 199 mg/dL [facility] Comment: Interpretive Data Fasting glucose >/= 126 [...] 2022. Calcium 9.7 8.5 - 10.3 mg/dL [facility] Blood 08/15/2024 9:17 PM CDT 08/15/2024 9:48 PM CDT Wenceslao Reina MD LAB BLOOD ORDERABLES Final R esult [facility] [place] [address] * POCT glucose (08/15/2024 9:16 PM CDT) Glucose, POC 143 70 - 199 mg/dL Blood 08/15/2024 9:16 PM CDT 08/15/2024 9:16 PM CDT Wenceslao Reina MD LAB POCT ORDERABLES - DEVICE Final Result Performing Organization Address [facility] Co de Phone Number [facility] [place] [place] [address] * POCT glucose (08/15/2024 6:29 PM CDT) Glucose, POC 138 70 - 199 mg/dL Blood 08/15/2024 6:29 PM CDT 08/15/2024 6:29 PM CDT Wenceslao Reina MD LAB POCT ORDERABLES - DEVICE Final Result Performing Organization Address [facility] [place] [address] * POCT glucose (08/15/2024 5:17 PM CDT) Glucose, POC 198 70 - 199 mg/dL Blood 08/15/2024 5:17 PM CDT 08/15/2024 5:17 PM CDT us Wenceslao Reina MD LAB POCT ORDERABLES - DEVICE Final Result Performing Organization Address [facility] Co de Phone Number [facility] [place] [place] [address] * POCT glucose (08/15/2024 4:21 PM CDT) Glucose, POC 170 70 - 199 mg/dL Blood 08/15/2024 4:21 PM CDT 08/15/2024 4:21 PM CDT us Wenceslao Reina MD LAB POCT ORDERABLES - DEVICE Final Result Performing Organization Address [facility] Co de Phone Number [facility] [place] [address] * Oxyhemoglobin, central venous (08/15/2024 3:22 PM CDT) Oxyhemoglobin, CV 70.4 % Comment: Interpretive Data No reference range established. Current interpretive data was last revised 2019. Blood 08/15/2024 3:22 PM CDT 08/15/2024 3:28 PM CDT us Wenceslao Reina MD LAB BLOOD ORDERABLES Final R esult [facility] [place] [address] * (ABNORMAL) Hemoglobin total, pulmonary artery (08/15/2024 3:22 PM CDT) Pathologist [facility] Hemoglobin total, PA 10.6(L) 13.0 - 17.5 g/dL Blood 08/15/2024 3:22 PM CDT 08/15/2024 3:36 PM CDT us Wenceslao Reina MD LAB BLOOD ORDERABLES Final R esult [facility] Department [place] [address] * eGFR (08/15/2024 3:22 PM CDT) eGFR [...] LAB BLOOD ORDERABLES Final R esult [facility] [place] [address] * (ABNORMAL) Pro B-type natriuretic peptide (08/15/2024 [...] Heart J. 2006:27:330-337. 2. Autumn RW, Janet ANDERSON. J. AM Raymon Cardiol: Cardiovasc Imag. 2009;2: 216- 225. Interpretive Data Last Revised Date: 2017. Blood 08/15/2024 3:22 PM CDT 08/15/2024 3:44 PM CDT us Wenceslao Reina MD LAB BLOOD ORDERABLES Final R esult Performing Organization Address [facility] Co de Phone Number [facility] [place] [place] [address] * Lactate, whole blood (08/15/2024 3:22 PM CDT) Lactate, bld 1.2 0.7 - 2.0 mmol/L Blood 08/15/2024 3:22 PM CDT 08/15/2024 3:28 PM CDT us Wenceslao Reina MD LAB BLOOD ORDERABLES Final R esult Performing Organization Address [facility] Co de Phone Number [facility] [place] [address] * Phosphorus (08/15/2024 3:22 PM CDT) Phosphorus, pl 3.0 2.3 - 4.5 mg/dL Comment:Reviewed Blood 08/15/2024 3:22 PM CDT 08/15/2024 3:44 PM CDT us Wenceslao Reina MD LAB BLOOD ORDERABLES Final R esult Performing Organization Address [facility] Co de Phone Number [facility] [place] [address] * Magnesium (08/15/2024 3:22 PM CDT) Magnesium 2.3 1.4 - 2.5 mg/dL Blood 08/15/2024 3:22 PM CDT 08/15/2024 3:44 PM CDT Wenceslao Reina MD LAB BLOOD ORDERABLES Final R esult [facility] [place] [address] * (ABNORMAL) Basic metabolic panel (08/15/2024 3:22 PM CDT) Sodium 133(L) 135 - 145 mmol/L Potassium, pl 4.1 3.3 - 4.9 mmol/L [facility] Chloride 89(L) 97 - 110 mmol/L [facility] CO2 33(H) 22 - 32 mmol/L [facility] Anion gap 11 2 - 15 mmol/L [facility] BUN 14 6 - 25 mg/dL [facility] Creatinine 0.93 0.80 - 1.30 mg/dL [facility] Glucose 145 70 - 199 mg/dL [facility] Comment: Interpretive Data Fasting glucose >/= 126 [...] 2022. Calcium 10.1 8.5 - 10.3 mg/dL [facility] Blood 08/15/2024 3:22 PM CDT 08/15/2024 3:44 PM CDT Wenceslao Reina MD LAB BLOOD ORDERABLES Final R esult Performing Organization Address [facility]/ZIP Co de Phone Number [facility] [place] [address] * POCT glucose (08/15/2024 3:20 PM CDT) Glucose, POC 146 70 - 199 mg/dL Blood 08/15/2024 3:20 PM CDT 08/15/2024 3:20 PM CDT Wenceslao Reina MD LAB POCT ORDERABLES - DEVICE Final Result Performing Organization Address [facility] [place] [address] * POCT glucose (08/15/2024 2:40 PM CDT) Glucose, POC 93 70 - 199 mg/dL Blood 08/15/2024 2:40 PM CDT 08/15/2024 2:40 PM CDT Wenceslao Reina MD LAB POCT ORDERABLES - DEVICE Final Result Performing Organization Address [facility] [place] [address] * XR Chest 1 View (08/15/2024 2:40 PM CDT) Anatomical Region Laterality Modality Body, Chest N/A Computed Radiogr aphy 08/16/2024 9:53 AM CDT Impressions 08/16/2024 9:53 AM CDT 1. No prior examination available for comparison. A right peripherally inserted central venous catheter tip is in the right atrium. Plato-Micah catheter tip overlies the main pulmonary artery. There is no pneumonic consolidation or pneumothorax. 2. Comparison is made to prior examination from the same date. The Plato-Micah catheter tip is now located in the [...] catheter tip is in the right atrium. Plato-Micah catheter tip overlies the main pulmonary artery. There is no pneumonic consolidation or pneumothorax. 2. Comparison is made to prior examination from the same date. The Plato-Micah catheter tip is now located in the proximal left pulmonary artery. There is otherwise no significant interval change. Electronically signed by: Roman Carmona M.D. Wenceslao Reina MD IMG XR PROCEDURES Final Resu lt * POCT glucose (08/15/2024 2:05 PM CDT) Glucose, POC 86 70 - 199 mg/dL Blood 08/15/2024 2:05 PM CDT 08/15/2024 2:05 PM CDT Wenceslao Reina MD LAB POCT ORDERABLES - DEVICE Final Result [facility] [place] [address] * (ABNORMAL) Blood gas, arterial (08/15/2024 1:51 PM CDT) pH, Art 7.48(H) 7.35 - 7.45 PCO2, Arterial 47(H) 35 - 45 mmHg [facility] PO2, Arterial 89 83 - 108 mmHg [facility] HCO3 Art (Calculated) 35(H) 20 - 30 mmol/L [facility] BE, art 10 mmol/L [facility] Comment: Interpretive Data No Reference Range Established Current Interpretive Data was last revised on 2017 O2 Sat Art (Measured) 97(H) 90 - 95 % [facility] Blood 08/15/2024 1:51 PM CDT 08/15/2024 1:58 PM CDT us Wenceslao Reina MD LAB BLOOD ORDERABLES Final R esult Performing Organization Address [facility]/ZIP Co de Phone Number [facility] [place] [address] * POCT glucose (08/15/2024 1:03 PM CDT) Glucose, POC 124 70 - 199 mg/dL Blood 08/15/2024 1:03 PM CDT 08/15/2024 1:03 PM CDT Wenceslao Reina MD LAB POCT ORDERABLES - DEVICE Final Result Performing Organization Address [facility] Co de Phone Number [facility] [place] [address] * XR Abdomen Ap 1 Vw (08/15/2024 [...] catheter tip is in the right atrium. Plato-Micah catheter tip overlies the main pulmonary artery. There is no pneumonic consolidation or pneumothorax. 2. Comparison is made to prior examination from the same date. The Plato-Micah catheter tip is now located in the [...] catheter tip is in the right atrium. Plato-Micah catheter tip overlies the main pulmonary artery. There is no pneumonic consolidation or pneumothorax. 2. Comparison is made to prior examination from the same date. The Plato-Micah catheter tip is now located in the [...] 2019. Trop I hs delta 54(C) ng/L [facility] Comment:Previous critical va lue noted within 48 hours ago. Trop I hs interp Significa nt(C) [facility] Comment:Previous critical va lue noted within 48 hours ago. Blood 08/15/2024 12:3 2 PM CDT 08/15/2024 12:45 PM CDT Wenceslao Reina MD LAB BLOOD ORDERABLES Final R esult Performing Organization Address [facility] Co de Phone Number [facility] [place] [address] * Oxyhemoglobin, pulmonary artery (08/15/2024 12:32 PM CDT) Pathologist [facility] Oxyhemoglobin, PA 72.8 % Comment: Interpretive Data No reference range established. Current interpretive data was last revised 2019. Blood 08/15/2024 12:3 2 PM CDT 08/15/2024 12:44 PM CDT Wenceslao Reina MD LAB BLOOD ORDERABLES Final R esult [facility] [place] [address] * (ABNORMAL) Hemoglobin total, pulmonary artery (08/15/2024 12:32 PM CDT) Hemoglobin total, PA 10.4(L) 13.0 - 17.5 g/dL Blood 08/15/2024 12:3 2 PM CDT 08/15/2024 12:44 PM CDT us Jose J Tolbert MD LAB BLOOD ORDERABLES Final Result Performing Organization Address [facility] Co de Phone Number [facility] [facility] [place] [address] * eGFR (08/15/2024 12:32 PM CDT) eGFR [...] ORDERABLES Final R esult Performing Organization Address [facility]/ZIP Co de Phone Number [facility] [place] [address] * (ABNORMAL) Calcium, ionized (08/15/2024 12:32 PM CDT) Calcium, Ionized 5.14(H) 4.50 - 5.10 mg/dL Blood 08/15/2024 12:3 2 PM CDT 08/15/2024 12:55 PM CDT Wenceslao Reina MD LAB BLOOD ORDERABLES Final R esult [facility] [place] [address] * (ABNORMAL) Phosphorus (08/15/2024 12:32 PM CDT) Pathologist [facility] Phosphorus, pl 0.9(L) 2.3 - 4.5 mg/dL Blood 08/15/2024 12:3 2 PM CDT 08/15/2024 12:45 PM CDT us Wenceslao Reina MD LAB BLOOD ORDERABLES Final R esult Performing Organization Address [facility] Co de Phone Number [facility] [place] [address] * Magnesium (08/15/2024 12:32 PM CDT) [facility] Magnesium 2.4 1.4 - 2.5 mg/dL Blood 08/15/2024 12:3 2 PM CDT 08/15/2024 12:45 PM CDT Wenceslao Reina MD LAB BLOOD ORDERABLES Final R esult Performing Organization Address [facility] Co de Phone Number [facility] [place] [address] * (ABNORMAL) Basic metabolic panel (08/15/2024 12:32 PM CDT) Pathologist [facility] Sodium 133(L) 135 - 145 mmol/L Potassium, pl 4.2 3.3 - 4.9 mmol/L [facility] Chloride 90(L) 97 - 110 mmol/L [facility] CO2 33(H) 22 - 32 mmol/L [facility] Comment:Reviewed Anion gap 10 2 - 15 mmol/L [facility] Comment:Reviewed BUN 15 6 - 25 mg/dL [facility] Creatinine 0.97 0.80 - 1.30 mg/dL [facility] Glucose 144 70 - 199 mg/dL [facility] Comment: Interpretive Data Fasting glucose >/= 126 [...] 2022. Calcium 10.5(H) 8.5 - 10.3 mg/dL [facility] Blood 08/15/2024 12:3 2 PM CDT 08/15/2024 12:45 PM CDT us Wenceslao Reina MD LAB BLOOD ORDERABLES Final R esult Performing Organization Address [facility]/ZIP Co de Phone Number [facility] [place] [employer] [place] [address] * POCT glucose (08/15/2024 11:57 AM CDT) Glucose, POC 165 70 - 199 mg/dL Blood 08/15/2024 11:5 7 AM CDT 08/15/2024 11:57 AM CDT Wenceslao Reina MD LAB POCT ORDERABLES - DEVICE Final Result Performing Organization Address [facility]/ZIP Co de Phone Number [facility] [place] [place] [address] * (ABNORMAL) Troponin I high-sensitivity 4-hour (08/15/2024 10:58 AM CDT) Trop I hs 76(H) <=35 ng/L Comment: Previous critical value noted within 48 hours ago. Interpretive Data For further hscTnI resources including the diagnostic algorithm and an aid in interpretation, copy and paste this link: https://bjhlab.testcatalog.org/show/hsTrop-1 Current Interpretive Data last revised 2019. Trop I hs delta 25(C) ng/L [facility] Comment:Previous critical va lue noted within 48 hours ago. Trop I hs interp Significa nt(C) [facility] Comment:Previous critical va lue noted within 48 hours ago. Blood 08/15/2024 10:5 8 AM CDT 08/15/2024 11:06 AM CDT us Wenceslao Reina MD LAB BLOOD ORDERABLES Final R esult Performing Organization Address [facility] Co de Phone Number [facility] [place] [address] * Oxyhemoglobin, central venous (08/15/2024 10:58 AM CDT) Oxyhemoglobin, CV 71.6 % Comment: Interpretive Data No reference range established. Current interpretive data was last revised 2019. Blood 08/15/2024 10:5 8 AM CDT 08/15/2024 11:06 AM CDT us Wenceslao Riena MD LAB BLOOD ORDERABLES Final R esult Performing Organization Address [facility] Co de Phone Number [facility] [place] [address] * (ABNORMAL) Hemoglobin total, pulmonary artery (08/15/2024 10:58 AM CDT) Hemoglobin total, PA 9.8(L) 13.0 - 17.5 g/dL Blood 08/15/2024 10:5 8 AM CDT 08/15/2024 11:06 AM CDT us Wenceslao Reina MD LAB BLOOD ORDERABLES Final R esult Performing Organization Address [facility] Co de Phone Number [facility] [place] [address] * Lactate, whole blood (08/15/2024 10:58 AM CDT) Lactate, bld 1.8 0.7 - 2.0 mmol/L Blood 08/15/2024 10:5 8 AM CDT 08/15/2024 11:06 AM CDT us Wenceslao Reina MD LAB BLOOD ORDERABLES Final R esult Performing Organization Address [facility] de Phone Number [facility] [place] [address] * POCT glucose (08/15/2024 10:51 AM CDT) Glucose, POC 165 70 - 199 mg/dL Blood 08/15/2024 10:5 1 AM CDT 08/15/2024 10:51 AM CDT us Wenceslao Reina MD LAB POCT ORDERABLES - DEVICE Final Result Performing Organization Address [facility] Co de Phone Number [facility] [place] [address] * IA INSJ NON-TUNNELED CENTRAL VENOUS CATH AGE 4 YR/> (08/15/2024 9:58 AM CDT) Narrative Wenceslao Reina MD - 08/15/2024 9:58 AM CDT Wenceslao Reina MD 08/15/2024 3:12 PM Central Line Insertion- [facility] Date/Time: 08/15/2024 9:58 AM Performed by: Ngozi Tamez MD Authorized by: Wenceslao Reina MD [place] Protocol: RN Notified of Procedure: yes Patient [...] Ultrasound guidance: Real-time needle guidance Procedural supplies: [facility]. Needle inserted, vein idenitified then guidewire inserted easily into vein: Yes Successful placement: Yes Patient tolerance: Patient tolerated the procedure well with no immediate complications us Wenceslao Reina MD IN CLINIC/BEDSIDE ORDERABLES Final Result * (ABNORMAL) POC Blood Gas and Chemistries, Arterial - (08/15/2024 9:57 AM CDT) pH, Art POC 7.36 7.35 - 7.45 pCO2, Art POC 25(L) 35 - 45 mmHg [facility] pO2, Art POC 83 83 - 108 mmHg [facility] Na, POC 130(L) 135 - 145 mmol/L [facility] K POC 4.6 3.3 - 4.9 mmol/L [facility] Comment: Interpretive Data Not all point of care methods assess for hemolysis. Confirm with instrument and retest K+ if not consistent with clinical signs and symptoms. Current Interpretive Data was last revised on 2023. Cl, POC 93(L) 97 - 110 mmol/L [facility] Ionized Ca, POC 6.02(H) 4.50 - 5.10 mg/dL [facility] Glucose, POC 253(H) 70 - 199 mg/dL [facility] Lactate, POC 2.4(H) 0.7 - 2.0 mmol/L [facility] SO2 (fabiana) arterial 98(H) 90 - 95 % [facility] Base excess, POC -10.0 mmol/L [facility] HCO3, Art POC 14(L) 20 - 30 mmol/L [facility] Hct, POC 29.0(L) 41.4 - 51.6 % [facility] Total Hb, POC 9.7(L) 13.8 - 17.2 g/dL [facility] Blood 08/15/2024 9:57 AM CDT 08/15/2024 9:57 AM CDT Wenceslao Reina MD LAB POCT ORDERABLES - DEVICE Final Result Performing Organization Address [facility] Co de Phone Number [facility] [place] [address] * (ABNORMAL) Urinalysis reflex to microscopic and culture Urine (08/15/2024 9:56 AM CDT) Color, ur Straw Yellow Clarity, ur Clear Clear [facility] Specific gravity, ur 1.008 1.003 - 1.030 [facility] pH, urine 6.0 [facility] Comment: Interpretive Data U rine pH is affected by diet, medications, systemic acid-base disturbances, and renal tubular function. pH may affect urinary stone formation. For example, urine pH below 6.0 may help reduce the tendency for calcium phosphate stones and pH greater than 6.0 may reduce the tendency for uric acid stone formation. Source: [facility] Current Interpretive Data was last revised on 2017 Protein, ur ql Negative Negative [facility] Glucose, ur ql 3+(A) Negative [facility] Ketones, ur 1+(A) Negative [facility] Bilirubin, ur Negative Negative [facility] Blood, ur 2+(A) Negative [facility] Urobilinogen, ur <2.0 <2.0 mg/dL [facility] Nitrite, ur Negative Negative [facility] Leukocyte esterase, ur Negative Negative [facility] UA reflex comment Reflex to microscopic UA will be performed. [facility] Urine 08/15/2024 9:56 AM CDT 08/15/2024 10:15 AM CDT Wenceslao Reina MD LAB MICROBIOLOGY - GENERAL O RDERABLES Final Result Performing Organization Address [facility]/ZIP Co de Phone Number [facility] [place] [address] * (ABNORMAL) Urinalysis, microscopic only (08/15/2024 9:56 AM CDT) WBC, ur 0-5 0 - 5 /HPF RBC, ur 0-2 0 - 2 /HPF [facility] Epithelial cells, squamous, ur 1-5 0 - 5 /HPF [facility] Bacteria, ur Trace(A) [facility] Mucous, ur Present(A) [facility] Culture Reflex Comment Reflex conditions for urine culture (WBC >10) not met. [facility] Urine 08/15/2024 9:56 AM CDT 08/15/2024 10:15 AM CDT us Wenceslao Reina MD LAB URINE ORDERABLES Final R esult [facility] One [facility] [place] [address] * IA ARTL CATHJ/CANNULJ MNTR/TRANSFUSION SPX PRQ (08/15/2024 9:53 AM CDT) Narrative Wenceslao Reina MD - 08/15/2024 9:53 AM CDT Wenceslao Reina MD 08/15/2024 3:12 PM Arterial Line Insertion Date/Time: 08/15/2024 9:53 AM Performed by: Ngozi Tamez MD Authorized by: Wenceslao Reina MD [place] Protocol: RN Notified of Procedure: yes Informed [...] - DEVICE Final Result Performing Organization Address [facility] Co de Phone Number [facility] [place] [address] * eGFR (08/15/2024 8:38 AM CDT) eGFR [...] ORDERABLES F inal Result Performing Organization Address [facility]/ZIP Co de Phone Number [facility] [place] [employer] [place] [address] * Critical Result Callback Chemistry (08/15/2024 8:38 AM CDT) Date Notified 20240815 Time Notified 09 [facility] TestName Anion Gap [facility] Called/Read Back Beth German [facility] Credentials RN [facility] Called By [facility] Blood 08/15/2024 8:38 AM CDT 08/15/2024 8:57 AM CDT us Kayleigh Avila MD LAB BLOOD ORDERABLES F inal Result [facility] One [facility] [place] [address] * (ABNORMAL) Comprehensive metabolic panel (08/15/2024 8:38 AM CDT) Sodium 132(L) 135 - 145 mmol/L Potassium, pl 4.6 3.3 - 4.9 mmol/L [facility] Chloride 89(L) 97 - 110 mmol/L [facility] CO2 14(L) 22 - 32 mmol/L [facility] Anion gap 29(C) 2 - 15 mmol/L [facility] Comment:Reviewed BUN 19 6 - 25 mg/dL [facility] Creatinine 1.25 0.80 - 1.30 mg/dL [facility] Glucose 266(H) 70 - 199 mg/dL [facility] Comment: Interpretive Data Fasting glucose >/= 126 [...] 2022. Calcium 10.8(H) 8.5 - 10.3 mg/dL [facility] Comment:Repeated and Verifie d Bilirubin, total 0.4 0.1 - 1.2 mg/dL [facility] Protein, pl 5.8(L) 6.5 - 8.5 g/dL [facility] Albumin 3.8 3.5 - 5.0 g/dL [facility] Alk phos 59 40 - 130 Units/L [facility] ALT 49 7 - 55 Units/L [facility] AST 94(H) 10 - 50 Units/L [facility] Blood 08/15/2024 8:38 AM CDT 08/15/2024 8:57 AM CDT Result [facility] Kayleigh Avila MD LAB BLOOD ORDERABLES F inal Result Performing Organization Address [facility]/ZIP Co de Phone Number [facility] [place] [address] * (ABNORMAL) Troponin I high-sensitivity 2-hour (08/15/2024 8:29 AM CDT) Trop I hs 66(H) <=35 ng/L Comment: Interpretive Data For further hscTnI resources including the diagnostic algorithm and an aid in interpretation, copy and paste this link: https://bjhlab.testcatalog.org/show/hsTrop-1 Current Interpretive Data last revised 2019. Trop I hs delta 15(C) ng/L [facility] Comment:Reviewed Trop I hs interp Significa nt(C) [facility] Comment:Reviewed Blood 08/15/2024 8:29 AM CDT 08/15/2024 8:57 AM CDT Wenceslao Reina MD LAB BLOOD ORDERABLES Final R esult Performing Organization Address [facility]/ZIP Co de Phone Number [facility] [place] [address] * Oxyhemoglobin, central venous (08/15/2024 8:29 AM CDT) Oxyhemoglobin, CV 75.8 % Comment: Interpretive Data No reference range established. Current interpretive data was last revised 2019. Blood 08/15/2024 8:29 AM CDT 08/15/2024 8:47 AM CDT us Wenceslao Reina MD LAB BLOOD ORDERABLES Final R esult Performing Organization Address [facility]/ZIP Co de Phone Number [facility] One [facility] [place] [address] * Critical result callback Cardio chemistry (08/15/2024 8:29 AM CDT) Date Notified 20240815 Time Notified 933 [facility] Test name Trop I hs 2hr delta [facility] Called/Read Back Beth BOB Credentials RN [facility] Called By ra [facility] Blood 08/15/2024 8:29 AM CDT 08/15/2024 8:57 AM CDT us Wenceslao Reina MD LAB BLOOD ORDERABLES Final R esult Performing Organization Address [facility] Co de Phone Number [facility] One [facility] [place] [address] * Critical Result Callback Chemistry (08/15/2024 8:29 AM CDT) Date Notified 20240815 Time Notified 857 [facility] TestName Lactate Whole Blood [facility] Called/Read Back Kimmy [facility] Credentials RN [facility] Called By LISA BOB Blood 08/15/2024 8:29 AM CDT 08/15/2024 8:48 AM CDT us Wenceslao Reina MD LAB BLOOD ORDERABLES Final R esult Performing Organization Address [facility] Co de Phone Number [facility] One [facility] [place] [address] * (ABNORMAL) Lactate, whole blood (08/15/2024 8:29 AM CDT) Pathologist [facility] Lactate, bld 4.2(C) 0.7 - 2.0 mmol/L Comment:Reviewed Blood 08/15/2024 8:29 AM CDT 08/15/2024 8:48 AM CDT Wenceslao Reina MD LAB BLOOD ORDERABLES Final R esult Performing Organization Address [facility] Co de Phone Number [facility] [place] [address] * (ABNORMAL) Beta-hydroxybutyrate (08/15/2024 7:42 AM CDT) [facility] Beta-Hydroxybut yrate 4.2(H) 0.0 - 0.5 mmol/L Blood 08/15/2024 7:42 AM CDT 08/15/2024 7:48 AM CDT Wenceslao Reina MD LAB BLOOD ORDERABLES Final R esult Performing Organization Address [facility] Co de Phone Number [facility] [place] [place] [address] * Blood culture Blood (08/15/2024 7:41 AM CDT) Pathologist [facility] Report Final Report: No growth Blood 08/15/2024 7:41 AM CDT 08/15/2024 8:49 AM CDT Narrative [facility] - 08/19/2024 12:00 PM CDT From a [...] performance characteristics have been verified by the [facility] Microbiology Laboratory. For questions about this culture, contact the Microbiology Laboratory at [phone]. Interpretive data was last revised on 24. us Wenceslao Reina MD LAB MICROBIOLOGY - GENERAL O RDERABLES Final Result [facility] One [facility] [place] [address] * Blood culture Blood (08/15/2024 7:41 AM CDT) Report Final Report: No growth Blood 08/15/2024 7:41 AM CDT 08/15/2024 7:52 AM CDT Narrative [facility] - 08/19/2024 12:00 PM CDT Collection->Peripheral 1. [...] performance characteristics have been verified by the [facility] Microbiology [facility]. For questions about this culture, contact the Microbiology Laboratory at [phone]. Interpretive data was last revised on 24. Wenceslao Reina MD LAB MICROBIOLOGY - GENERAL O RDERABLES Final Result [facility] One [facility] [place] [address] * (ABNORMAL) POC Blood Gas and Chemistries, Arterial - (08/15/2024 7:38 AM CDT) pH, Art POC 7.18(C) 7.35 - 7.45 pCO2, Art POC 26(L) 35 - 45 mmHg [facility] pO2, Art POC 97 83 - 108 mmHg [facility] Na, POC 127(L) 135 - 145 mmol/L [facility] K POC 4.8 3.3 - 4.9 mmol/L [facility] Comment: Interpretive Data Not all point of care methods assess for hemolysis. Confirm with instrument and retest K+ if not consistent with clinical signs and symptoms. Current Interpretive Data was last revised on 2023. Cl, POC 93(L) 97 - 110 mmol/L [facility] Ionized Ca, POC 6.73(H) 4.50 - 5.10 mg/dL [facility] Glucose, POC 301(H) 70 - 199 mg/dL [facility] Lactate, POC 4.2(C) 0.7 - 2.0 mmol/L [facility] SO2 (fabiana) arterial 98(H) 90 - 95 % [facility] Base excess, POC -17.2 mmol/L [facility] HCO3, Art POC 10(C) 20 - 30 mmol/L [facility] Hct, POC 26.0(L) 41.4 - 51.6 % [facility] Total Hb, POC 8.8(L) 13.8 - 17.2 g/dL [facility] Blood 08/15/2024 7:38 AM CDT 08/15/2024 7:38 AM CDT us Wneceslao Reina MD LAB POCT ORDERABLES - DEVICE Final Result Performing Organization Address [facility] Co de Phone Number [facility] [place] [address] * Check Sample (08/15/2024 6:50 AM CDT) ABO Rh A Positive [facility] HC[facility] OTHER 08/15/2024 6:50 AM CDT 08/15/2024 7:00 AM CDT us Wenceslao Reina MD LAB BLOOD ORDERABLES Final R esult Performing Organization Address [facility] Co de Phone Number [facility] [place] [address] [facility] * (ABNORMAL) Calcium, ionized (08/15/2024 6:50 AM CDT) Calcium, Ionized 3.68(L) 4.50 - 5.10 mg/dL Blood 08/15/2024 6:50 AM CDT 08/15/2024 6:57 AM CDT us Wenceslao Reina MD LAB BLOOD ORDERABLES Final R esult Performing Organization Address [facility] Co de Phone Number [facility] [place] [address] * aPTT (08/15/2024 6:50 AM CDT) aPTT [...] ORDERABLES Final R esult Performing Organization Address [facility] Co de Phone Number [facility] [place] [employer] [place] [address] * Protime-INR (08/15/2024 6:50 AM CDT) PT 10.4 9.7 - 13.0 sec INR 0.96 0.90 - 1.20 [facility] Comment: Interpretive data Oral anticoagulant therapeutic ranges: Venous thromboembolism prophylaxis or treatment: 2.0-3.0 CARDIOLOGY Standard range: 2.0-3.0 High-intensity range: 2.5-3.5 Refer to indication-specific guidelines for appropriate target ranges for prosthetic heart valve replacement. Current interpretive data was last revised on 2019. Blood 08/15/2024 6:50 AM CDT 08/15/2024 6:57 AM CDT Wenceslao Reina MD LAB BLOOD ORDERABLES Final R esult Performing Organization Address [facility] [place] [address] * Type and screen (08/15/2024 6:29 AM CDT) John, indirect Negative ABO Rh A Positive [facility] Blood 08/15/2024 6:29 AM CDT 08/15/2024 6:44 AM CDT Narrative [facility] - 08/15/2024 7:32 AM CDT Has the patient had Daratumumab or Isatuximab in the past 6 months?->Unknown Wenceslao Reina MD LAB BLOOD BANK TEST ORDERABL ES Final Result Performing Organization Address [facility] Co de Phone Number [facility] [place] [place] [address] * (ABNORMAL) Troponin I high-sensitivity series (baseline, [...] MD LAB BLOOD ORDERABLES Final R esult [facility] One [facility] [place] [address] * eGFR (08/15/2024 6:26 AM CDT) eGFR [...] MD LAB BLOOD ORDERABLES Final R esult [facility] One [facility] [place] [address] * (ABNORMAL) Differential, auto (08/15/2024 6:26 AM CDT) Neutrophil abs 7.40(H) 1.50 - 6.50 K/cumm Imm gran abs 0.06 0.00 - 0.10 K/cumm [facility] Lymphocyte abs 0.81 0.80 - 3.30 K/cumm [facility] Monocyte abs 1.85(H) 0.20 - 0.80 K/cumm [facility] Eosinophil abs 0.03 0.00 - 0.50 K/cumm [facility] Basophil abs 0.01 0.00 - 0.10 K/cumm [facility] Neutrophil pct 72.8 % [facility] Comment: Interpretive Data Percent cell count reference ranges are not reported, since discordance with absolute values may lead to misinterpretation of CBC data. Current Interpretive Data was last revised on 2017. Imm gran pct 0.6 % [facility] Comment: Interpretive Data Percent cell count reference ranges are not reported, since discordance with absolute values may lead to misinterpretation of CBC data. Current Interpretive Data was last revised on 2017. Lymphocyte pct 8.0 % [facility] Comment: Interpretive Data Percent cell count reference ranges are not reported, since discordance with absolute values may lead to misinterpretation of CBC data. Current Interpretive Data was last revised on 2017. Monocyte pct 18.2 % [facility] Comment: Interpretive Data Percent cell count reference ranges are not reported, since discordance with absolute values may lead to misinterpretation of CBC data. Current Interpretive Data was last revised on 2017. Eosinophil pct 0.3 % [facility] Comment: Interpretive Data Percent cell count reference ranges are not reported, since discordance with absolute values may lead to misinterpretation of CBC data. Current Interpretive Data was last revised on 2017. Basophil pct 0.1 % [facility] Comment: Interpretive Data Percent cell count reference ranges are not reported, since discordance with absolute values may lead to misinterpretation of CBC data. Current Interpretive Data was last revised on 2017. Blood 08/15/2024 6:26 AM CDT 08/15/2024 6:49 AM CDT us Wenceslao Reina MD LAB BLOOD ORDERABLES Final R esult Performing Organization Address [facility]/ZIP Co de Phone Number [facility] [place] [address] * Critical Result Callback Chemistry (08/15/2024 6:26 AM CDT) Date Notified 20240815 Time Notified 901 [facility] TestName Calcium, Anion Gap, CO2 Totl [facility] [facility] Called/Read Back Wenceslao [facility] Credentials RN [place] [facility] Called By ra [facility] Blood 08/15/2024 6:26 AM CDT 08/15/2024 6:40 AM CDT us Wenceslao Reina MD LAB BLOOD ORDERABLES Final R esult Performing Organization Address [facility] Co de Phone Number [facility] [place] [address] * Critical Result Callback Chemistry (08/15/2024 6:26 AM CDT) Date Notified [id number] Time Notified 720 [facility] TestName Lactate Whole Blood, pH Robbin, HCO3 Robbin (Calc) [facility] Called/Read Back Hiral Regan [facility] Credentials RN [facility] Called By LISA JETER [facility] Blood 08/15/2024 6:26 AM CDT 08/15/2024 6:40 AM CDT us Wenceslao Reina MD LAB BLOOD ORDERABLES Final R esult Performing Organization Address [facility]/ZIP Co de Phone Number [facility] [place] [address] * (ABNORMAL) CBC with auto differential (08/15/2024 6:26 AM CDT) [facility] WBC 10.16(H) 3.80 - 9.90 K/cumm Hgb 8.5(L) 13.0 - 17.5 g/dL [facility] Hct 26.2(L) 38.9 - 50.3 % [facility] Plt 240 150 - 400 K/cumm [facility] MPV 9.2 9.1 - 12.3 fL [facility] RBC 2.89(L) 4.30 - 5.80 M/cumm [facility] MCV 90.7 81.3 - 96.4 fL [facility] MCH 29.4 27.1 - 33.3 pg [facility] MCHC 32.4 32.3 - 35.7 g/dL [facility] RDW CV 15.4(H) 11.1 - 14.9 % [facility] RDW SD 51.3(H) 35.7 - 48.1 fL [facility] NRBC abs 0.00 0.00 - 0.01 K/cumm [facility] Blood 08/15/2024 6:26 AM CDT 08/15/2024 6:49 AM CDT Wenceslao Reina MD LAB BLOOD ORDERABLES Final R esult [facility] [place] [address] * (ABNORMAL) Lactate, whole blood (08/15/2024 6:26 AM CDT) [facility] Lactate, bld 4.6(C) 0.7 - 2.0 mmol/L Comment:Repeated and verifie d. Blood 08/15/2024 6:26 AM CDT 08/15/2024 6:40 AM CDT us Wenceslao Reina MD LAB BLOOD ORDERABLES Final R esult Performing Organization Address [facility] de Phone Number [facility] [place] [address] * (ABNORMAL) TSH (08/15/2024 6:26 AM CDT) Thyroid Stimulating Hormone 0.05(L) 0.30 - 4.20 mcIUnit/mL Blood 08/15/2024 6:26 AM CDT 08/15/2024 6:40 AM CDT us Wenceslao Reina MD LAB BLOOD ORDERABLES Final R esult Performing Organization Address [facility] de Phone Number [facility] [place] [address] * Phosphorus (08/15/2024 6:26 AM CDT) Phosphorus, pl 2.4 2.3 - 4.5 mg/dL Comment:Repeated and verifie d. Blood 08/15/2024 6:26 AM CDT 08/15/2024 6:40 AM CDT us Wenceslao Reina MD LAB BLOOD ORDERABLES Final R esult Performing Organization Address [facility] Co de Phone Number [facility] [place] [address] * Magnesium (08/15/2024 6:26 AM CDT) Magnesium 1.7 1.4 - 2.5 mg/dL Comment:Repeated and verifie d. Blood 08/15/2024 6:26 AM CDT 08/15/2024 6:40 AM CDT us Wenceslao Reina MD LAB BLOOD ORDERABLES Final R esult Performing Organization Address [facility] Co de Phone Number [facility] [place] [place] [address] * Lipase (08/15/2024 6:26 AM CDT) [facility] Lipase 38 10 - 99 Units/L Blood 08/15/2024 6:26 AM CDT 08/15/2024 6:40 AM CDT Wenceslao Reina MD LAB BLOOD ORDERABLES Final R esult Performing Organization Address [facility] [place] [address] * (ABNORMAL) Hemoglobin A1c (08/15/2024 6:26 AM CDT) [facility] Hgb A1C 5.9(H) 4.0 - 5.6 % Estimated Average Glucose 123 mg/dL [facility] Comment: The ADA recommends reporting an estimated [...] ORDERABLES Final R esult Performing Organization Address [facility] Co de Phone Number [facility] [place] [employer] [place] [address] * (ABNORMAL) Blood gas, venous (08/15/2024 6:26 AM CDT) [facility] pH, Venous 7.18(C) 7.32 - 7.43 Comment:Repeated and verifie d. PCO2, Venous 23(L) 40 - 50 mmHg [facility] Comment:Repeated and verifie d. PO2, Venous 63 mmHg [facility] Comment: Repeated and verified. Interpretive Data No Reference Range Established Current Interpretive Data was last revised on 2017. HCO3 Venous, Calculated 9(C) 20 - 30 mmol/L [facility] Comment:Repeated and verifie d. BE, venous -19 mmol/L [facility] Comment: Repeated and verified. Interpretive Data No Reference Range Established Current Interpretive Data was last revised on 2017. Blood 08/15/2024 6:26 AM CDT 08/15/2024 6:40 AM CDT Wenceslao Reina MD LAB BLOOD ORDERABLES Final R esult Performing Organization Address [facility] de Phone Number [facility] Department [place] [address] * (ABNORMAL) Ethanol (08/15/2024 6:26 AM CDT) Pathologist [facility] Ethanol 100(H) <=10 mg/dL Comment: Repeated and verified. Interpretive Data Legal limit of intoxication > or = 80 mg/dL Levels > or = 400 mg/dL are potentially TOXIC. Current interpretive data was last revised on 2018. Blood 08/15/2024 6:26 AM CDT 08/15/2024 6:40 AM CDT us Wenceslao Reina MD LAB BLOOD ORDERABLES Final R esult Performing Organization Address [facility] de Phone Number [facility] Department [place] [address] * (ABNORMAL) Comprehensive metabolic panel (08/15/2024 6:26 AM CDT) Sodium 130(L) 135 - 145 mmol/L Comment:Repeated and verifie d. Potassium, pl 4.9 3.3 - 4.9 mmol/L [facility] Comment:Repeated and verifie d. Chloride 85(L) 97 - 110 mmol/L [facility] Comment:Repeated and verifie d. CO2 10(C) 22 - 32 mmol/L [facility] Comment:Repeated and verifie d. Anion gap 35(C) 2 - 15 mmol/L [facility] Comment:Repeated and verifie d. BUN 19 6 - 25 mg/dL [facility] Comment:Repeated and verifie d. Creatinine 1.35(H) 0.80 - 1.30 mg/dL [facility] Comment:Repeated and verifie d. Glucose 319(H) 70 - 199 mg/dL [facility] Comment: Repeated and verified. Interpretive Data Fasting [...] 2022. Calcium 6.1(C) 8.5 - 10.3 mg/dL [facility] Comment:Repeated and verifie d. Bilirubin, total 0.4 0.1 - 1.2 mg/dL [facility] Comment:Repeated and verifie d. Protein, pl 5.4(L) 6.5 - 8.5 g/dL [facility] Comment:Repeated and verifie d. Albumin 3.6 3.5 - 5.0 g/dL [facility] Comment:Repeated and verifie d. Alk phos 55 40 - 130 Units/L [facility] Comment:Repeated and verifie d. ALT 45 7 - 55 Units/L [facility] Comment:Repeated and verifie d. AST 91(H) 10 - 50 Units/L [facility] Comment:Repeated and verifie d. Blood 08/15/2024 6:26 AM CDT 08/15/2024 6:40 AM CDT Wenceslao Reina MD LAB BLOOD ORDERABLES Final R esult [facility] [place] [address] * (ABNORMAL) POC Blood Gas and Chemistries, Venous - (08/15/2024 6:21 AM CDT) pH, Robbin POC 7.14(C) 7.32 - 7.43 pCO2, robbin POC 24(L) 40 - 50 mmHg [facility] pO2, robbin POC 51 mmHg [facility] Na, POC 126(L) 135 - 145 mmol/L [facility] K POC 5.7(H) 3.3 - 4.9 mmol/L [facility] Comment: Interpretive Data Not all point of care methods assess for hemolysis. Confirm with instrument and retest K+ if not consistent with clinical signs and symptoms. Current Interpretive Data was last revised on 2023. Cl, POC 89(L) 97 - 110 mmol/L [facility] Ionized Ca, POC 3.48(L) 4.50 - 5.10 mg/dL [facility] Glucose, POC 338(H) 70 - 199 mg/dL [facility] Lactate, POC 4.8(C) 0.7 - 2.0 mmol/L [facility] O2 Sat, Robbin POC (Fabiana) 84 % [facility] Base excess, POC -19.2 mmol/L [facility] HCO3, Robbin POC 8(C) 20 - 30 mmol/L [facility] Hct, POC 27.0(L) 41.4 - 51.6 % [facility] Total Hb, POC 8.9(L) 13.8 - 17.2 g/dL [facility] Blood 08/15/2024 6:21 AM CDT 08/15/2024 6:21 AM CDT Wenceslao Reina MD LAB POCT ORDERABLES - DEVICE Final Result [facility] [place] [address] * Cardiology Document Scan (07/31/2024 4:46 PM [...] >90 EXTERNAL LAB SCRIBED eGFR in NonAfrican Mexican >90 >90 EXTERNAL LAB Blood 07/22/2024 2:15 PM CDT Erich Infante MD LAB BLOOD ORDERABLES Fi nal Result EXTERNAL LAB * B-type natriuretic peptide (06/24/2024) SCRIBED BNP 238 <125 pg/mL [facility] Blood 06/24/2024 Erich Infante MD LAB BLOOD ORDERABLES Fi nal Result [facility] * (ABNORMAL) Comprehensive metabolic panel (06/24/2024) Pathologist [facility] SCRIBED Sodium 139 136 - 145 mmol/L [facility] SCRIBED Potassium 3.6 3.5 - 5.1 mmol/L [facility] SCRIBED Chloride 96(A) 100 - 108 mmol/L [facility] SCRIBED Carbon Dioxide 33.3(A) 21 - 32 mmol/L [facility] SCRIBED Anion Gap 9.7 5 - 15 mmol/L [facility] SCRIBED Urea Nitrogen (BUN) 21(A) 7 - 18 mg/dl [facility] SCRIBED Creatinine 0.90 0.7 - 1.3 mg/dl [facility] SCRIBED Glucose 151(A) 70 - 99 mg/dl [facility] Calcium 9.4 8.5 - 10.1 mg/dl [facility] Bilirubin 0.9 0.2 - 1.2 mg/dl [facility] Plasma Protein 6.8 6.4 - 8.2 g/dl [facility] Albumin 4.1 3.4 - 5.0 g/dl [facility] Alkaline Phosphatase 76 50 - 136 Units/L [facility] Alanine Transaminase (ALT) 58 16 - 60 Units/L [facility] Aspartate Transaminase (AST) 78(A) 15 - 37 Units/L [facility] eGFR in NonAfrican Mexican >90 >90 [facility] Alb/glob ratio 1.5 1.0 - 2.0 [facility] BUN_Creat Ratio 23.3 6 - 26 [facility] Blood 06/24/2024 us Erich Infante MD LAB BLOOD ORDERABLES Fi nal Result [facility] * TRANSTHORACIC ECHO (TTE) COMPLETE W DOPPLER/CF W CONTRAST (06/23/2024 9:34 AM PROCESS CONTROL PROGRAMMER) Anatomical Region Laterality Modality Ultrasound 06/23/2024 8:59 AM PROCESS CONTROL PROGRAMMER Narrative 06/23/2024 1:32 PM PROCESS CONTROL PROGRAMMER [facility] Cardiac Diagnostic Lab [address], [address] [place] [address] Transthoracic Echocardiographic Report Patient Name: SOPHIA HANNA ST : 1990 (34y 2m) Gender: M Study Date: 06/23/2024 08:59:08 AM Ht(Inch): 72 Wt(Lb): 149.91 BSA: 1.86 Repairer Handtools: Joanna Mcfarlane RDCS Location: [facility] Order Provider: ARELISERICH Heart Rate: 111 BMI: 20.33 BP: 111 / 72 Quality: The study images were of technically good quality. Ref Provider: ARELISERICH Report [...] index. Previously Signed by:Jaciel 06/23/2024 1:31:45 PM PROCESS CONTROL PROGRAMMER and Cong Nix M.D. 06/23/2024 1:31:45 PM PROCESS CONTROL PROGRAMMER End of Addendum PROCEDURES: Echocardiographic Report: ([id number], [id number]) Transthoracic complete echo with strain imaging and [...] By: Cong Nix M.D. 06/23/2024 1:31:45 PM PROCESS CONTROL PROGRAMMER Electronically Signed By: Cong Nix M.D. 06/23/2024 1:31:45 PM PROCESS CONTROL PROGRAMMER Electronically Amended By: Cong Nix M.D. 07/20/2024 1:51:15 PM CDT [ADDENDUM] Procedure Note Cong Nix MD - 07/20/2024 [facility] Cardiac Diagnostic Lab [address] , [address] [place] [address] Transthoracic Echocardiographic Report Patient Name: SOPHIA HANNA ST : 1990 (34y 2m) Gender: M Study Date: 06/23/2024 08:59:08 AM Ht(Inch): 72 Wt(Lb): 149.91 BSA: 1.86 Repairer Handtools: Joanna Mcfarlane RDCS Location: [facility] Order Provider:ERICH INFANTE Heart [...] index. Previously Signed by:SignedForBoth 06/23/2024 1:31:45 PM PROCESS CONTROL PROGRAMMER and Cong Nix M.D. 06/23/2024 1:31:45 PM PROCESS CONTROL PROGRAMMER End of Addendum PROCEDURES: Echocardiographic Report: ([id number], [id number]) Transthoracic complete echo withstrain imaging and contrast, [...] LA Length 2C 5.59 cm MV Decel Xdnp621.26 msec [ 104.00 - 258.00 ] LA [...] By: Cong Nix M.D. 06/23/2024 1:31:45 PM PROCESS CONTROL PROGRAMMER Electronically Signed By: Cong Nix M.D. 06/23/2024 1:31:45 PM PROCESS CONTROL PROGRAMMER Electronically Amended By: Cong Nix M.D. 07/20/2024 1:51:15 PM CDT [ADDENDUM] Erich Infante MD CV ECHO PROCEDURES Edit ed Result - Final * POCT lipid panel (04/16/2024 3:29 PM PROCESS CONTROL PROGRAMMER) Cholesterol, POC 170 mg/dL HDL, POC 76 mg/dL Triglycerides, POC 112 mg/dL LDL Cholesterol POC 71 mg/dL Chol/HDL Ratio, POC 2.2 Non-HDL Cholesterol, POC 93 mg/dL Cholesterol Total, POC 170 mg/dL Capillary blood 04/16/2024 3 :29 PM PROCESS CONTROL PROGRAMMER us Tony Mcelroy MD POINT OF CARE TEST ORDERABLES Fi nal Result from Last 3 Months or Most Recently Relevant to Health Maintenance Insurance [facility] ANTHEM ACCESS ANTHEM ACCESS Advance Directives For more information, please contact: [phone] * Full Code (Latest Code Status on File) Date Activated Date Inactivated Comments 08/15/2024 6:12 AM 08/21/2024 6:17 PM Care Teams Vibratory Pile Driver Relationship Specialty Start Date End Date Pelon Rodriguez MD [address] [place] [address] [address] [facility] [address] [place] [address] PCP - General Family Medicine 06/23/24 Erich Infante MD [address] [address] Consulting Physician Cardiology 07/26/24 Simran Pruett Primary Seat Cover Cutter 07/26/24
--- OUTSIDE RECORDS SUMMARY | 2024-08-28 22:24 | XMS_ITS | Clinical Summary ---
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 Indications: sleep disturbance 08/11/19 Active biotin 81605 MCG tabletIndications: supplement Take 10,000 mcg by [...] Encounters Date Type Department Care Team Description 08/16/2024 Home Care Visit [address] [address] Aisha Radford RN CASE COMMUNICATION 08/13/2024 1:00 PM CDT Home Care Visit [address] [address] Minerva Lancaster, RN CASE COMMUNICATION 08/12/2024 1:30 PM CDT Home Care Visit [address] [place] [address] Jes Flores L, OT PATIENT NOT HOME 08/10/2024 1:16 PM CDT - 08/10/2024 11:59 PM CDT Hospital Encounter [facility] [address] [place] [address] Tony Mcelroy MD Discharge Disposition: Home or Self Care (Routine Discharge) 08/10/2024 10:15 AM CDT Home Care Visit [address] [place] [address] Minerva Lancatser, MADHURI SN NON ADMIT SOC 08/10/2024 Orders Only [facility] [address] [place] [id number] Tony Mcelroy MD 08/03/[address] [address] [facility] 07/22/2024 1:38 PM CDT - 07/22/2024 2:30 PM CDT Hospital Encounter [facility] [address] [place] [address] Tony Mcelroy MD Discharge Disposition: Home or Self Care (Routine Discharge) 07/22/2024 1:37 PM CDT Hospital Encounter [facility] [address] [place] [address] Tony Mcelroy MD Discharge Disposition: Home or Self Care (Routine Discharge) 07/22/2024 Telephone [facility] [address] [place] [address] Mary Ellen Mahmood MD Lab Results (Critical value ) 07/22/2024 Travel 06/24/2024 1:57 PM [employer] - 06/24/2024 2:52 PM [employer] Hospital Encounter [facility] [address] [place] [address] Tony Mcelroy MD Discharge Disposition: Home or Self Care (Routine Discharge) 06/24/2024 Travel 06/18/2024 12:07 PM [employer] - 06/18/2024 12:40 PM [employer] Hospital Encounter [facility] [address] [place] [address] Tony Mcelroy MD Discharge Disposition: Home or Self Care (Routine Discharge) 06/18/2024 Travel 06/10/2024 1:43 PM [employer] - 06/10/2024 3:03 PM [employer] Hospital Encounter [facility] [address] [place] [address] Tony Mcelroy MD Discharge Disposition: Home or Self Care (Routine Discharge) 06/10/2024 Travel 06/03/2024 2:24 PM [employer] - 06/03/2024 3:10 PM [employer] Hospital Encounter [facility] [address] [place] [address] Tony Mcelroy MD Discharge Disposition: Home or Self Care (Routine Discharge) 06/03/2024 Travel from Last 3 Months Family History Medical History Relation Comments [place] Father No Known Problems Mother meninigitis Sister [...] from your doctor or pharmacy? Never 09/18/2023 [facility] Utilities Answer Date Recorded In the past 12 months has e [employer], gas, oil, or water company threatened to [...] 08/13/2023 How often do you attend [facility] or voodoo services? 1 to 4 times per year [...] when you are drinking? 10 or more 04/10/202 4 Q3: How often do you have si x or more drinks on one occasion? Daily or almost daily 08/13/2023 Overall Financial Resource Strain (CARDIA) Answe r Date Recorded How hard is it for you to pa y for the very basics like food, housing, medical care, and heating? Patient declined 10/27/2023 [facility] - Occupational Stress Questionnaire Answer Date Recorded [...] place to sleep or slept in a fpc (including now)? No 03/29/2023 Housing Stability Vital Sign Answer Bryan e Recorded In the last 12 months, was t here a time when you were not able to pay the mortgage or rent on time? Patient declined 06/24/20 24 In the past 12 months, how m any times have you moved where you were living? 0 10/27/2023 At any time in the past [address] [facility], were you homeless or living in a fpc (including now)? Patient declined 10/27/2023 Sex and [...] lb 6.4 oz) 05/07/2024 3:07 P M [employer] Height 185.4 cm (6' 1 ) 05/07/2024 3:07 PM [employer] Body Mass Index 19.05 05/07/2024 3:07 PM [employer] Plan of Treatment Health Maintenance Due Date Last Done Comments Annual Physical 1992 Hepatitis B Vaccines (1 of 3 - 19+ 3-dose series) 2008 Pneumococcal Vaccine: Pediatrics (0 to 5 Years) and At-Risk Patients (6 to 49 Years) (1 of 2 - PCV) 2008 COVID-19 Vaccine (2 - season) 2024 07/06/2021 DTaP, Tdap and Td Vaccines (2 - Td or Tdap) 11/13/2033 11/14/2023 Hepatitis C Completed 08/18/2024, 1005/2023, 02/03/2024, Additional history exists HPV Vaccines Aged [...] upon discharge from hospital 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 PRO-B TYPE NATRIURETIC PEPTIDE 774(H) <125 PG/ML 08/10/2024 2:16 PM CDT [facility] Comment: CUT POINTS ESTABLISHED BY [...] us Tony Mcelroy MD LABORATORY Final Result [facility] [address] [place] [address], [place] [phone] * (ABNORMAL) BASIC METABOLIC PANEL (08/10/2024 11:30 AM CDT) GLUCOSE 234(H) 70 - 99 MG/DL 08/10/2024 2:16 PM CDT [facility] BUN 21(H) 7 - 18 MG/DL 08/10/2024 2:16 PM CDT [facility] CREATININE S/P/B 0.74 0.7 - 1.3 MG/DL 08/10/2024 2:16 PM CDT [facility] SODIUM S/P/B 134(L) 136 - 145 MMOL/L 08/10/2024 2:16 PM CDT [facility] POTASSIUM S/P/B 2.9(LL) 3.5 - 5.1 MMOL/L 08/10/2024 2:30 PM CDT [facility] Comment: Critical Result(s) Called at: 14:27:57 on 08/10/2024 by: Rabia Denny to and read back by:VIRGIE BEARD RN HOME HEALTH CHLORIDE S/P/B 92(L) 100 - 108 MMOL/L 08/10/2024 2:16 PM CDT [facility] CO2 34.9(H) 21 - 32 MMOL/L 08/10/2024 2:16 PM CDT [facility] CALCIUM S/P/B 9.5 8.5 - 10.1 MG/DL 08/10/2024 2:16 PM CDT [facility] ANION GAP 7.1 5 - 15 MMOL/L 08/10/2024 2:16 PM CDT [facility] BUN CREATININE RATIO 28.4(H) 6 - 26 08/10/2024 2:16 PM CDT [facility] GFR ESTIMATE >90 >90 ML/MIN/1.7 3 M2 08/10/2024 2:16 PM CDT [facility] Comment: NOTE: eGFR is not calculated for patients <18 years of age. This is an estimated GFR calculation using the new CKD EPI creatinine equation without race and so does not require a correction factor for race. This estimated GFR should not be used for calculating drug doses. 08/10/2024 11:3 0 AM CDT Tony Mcelroy MD LABORATORY Final Result [facility] [address] [place] [address], [place] [phone] * (ABNORMAL) CBC W/DIFF AUTOMATED (08/10/2024 11:30 AM CDT) WBC 6.23 4.4 - 11.0 x10'3/uL 08/10/2024 1:21 PM CDT [facility] RBC 3.49(L) 4.50 - 5.90 x10'6/uL 08/10/2024 1:21 PM CDT [facility] HGB 10.5(L) 14.0 - 17.5 G/DL 08/10/2024 1:21 PM CDT [facility] HCT 32.0(L) 41.5 - 50.4 % 08/10/2024 1:21 PM T [facility] MCV 91.7 80.0 - 96.0 FL 08/10/2024 1:21 PM CDT [facility] MCH 30.1 26.5 - 31.4 PG 08/10/2024 1:21 PM T [facility] MCHC 32.8 31.9 - 34.8 G/DL 08/10/2024 1:21 PM T [facility] RDW 15.6(H) 12.3 - 14.3 % 08/10/2024 1:21 PM [facility] PLT 155 151 - 353 x10'3/uL 08/10/2024 1:21 PM T [facility] MPV 10.7 9.7 - 11.9 FL 08/10/2024 1:21 PM T [facility] RBC MORPHOLOGY NORMAL 08/10/2024 1:21 PM [facility] PLT MORPH. NORMAL 08/10/2024 1:21 PM T [facility] WBC MORPHOLOGY NORMAL 08/10/2024 1:21 PM T [facility] LYMPHOCYTES % 19.4 15.8 - 45.0 % 08/10/2024 1:21 PM T [facility] NEUTROPHILS % 69.7 42.1 - 71.9 % 08/10/2024 1:21 PM T [facility] MONOCYTES % 9.0 5.7 - 12.5 % 08/10/2024 1:21 PM T [facility] EOSINOPHILS 1.1 0.0 - 5.6 % 08/10/2024 1:21 PM CDT [facility] BASOPHILS 0.5 0.0 - 1.3 % 08/10/2024 1:21 PM CDT [facility] ABS. NEUTROPHILS 4.34 1.40 - 6.00 x10'3/uL 08/10/2024 1:21 PM CDT [facility] IMMATURE GRANS % 0.3 0.0 - 0.5 % 08/10/2024 1:21 PM CDT [facility] ABS. LYMPHOCYTES 1.21 0.80 - 4.70 x10'3/uL 08/10/2024 1:21 PM CDT [facility] 08/10/2024 11:3 0 AM CDT Tony Mcelroy MD LABORATORY Final Result [facility] [address] [place] [address], [place] [phone] * (ABNORMAL) COMPREHENSIVE METABOLIC PANEL (07/22/2024 2:15 PM CDT) Only the most recent of2 resultswithin the time period is included. GLUCOSE 474(HH) 70 - 99 MG/DL 07/22/2024 3:37 PM CDT [facility] Comment: Critical Result(s) Called at: 15:31:41 on 07/22/2024 by: KEI FORBES to and read back by: MAGDALENA DANIELS [employer] BUN 25(H) 7 - 18 MG/DL 07/22/2024 3:37 PM CDT [facility] CREATININE S/P/B 1.07 0.7 - 1.3 MG/DL 07/22/2024 3:37 PM CDT [facility] SODIUM S/P/B 132(L) 136 - 145 MMOL/L 07/22/2024 3:37 PM CDT [facility] POTASSIUM S/P/B 5.2(H) 3.5 - 5.1 MMOL/L 07/22/2024 3:37 PM T [facility] CHLORIDE S/P/B 98(L) 100 - 108 MMOL/L 07/22/2024 3:37 PM T [facility] CO2 27.3 21 - 32 MMOL/L 07/22/2024 3:37 PM T [facility] CALCIUM S/P/B 9.0 8.5 - 10.1 MG/DL 07/22/2024 3:37 PM T [facility] BILIRUBIN TOTAL S/P/B 0.2 0.2 - 1.2 MG/DL 07/22/2024 3:37 PM T [facility] TOTAL PROTEIN S/P/B 6.3(L) 6.4 - 8.2 G/DL 07/22/2024 3:37 PM T [facility] ALBUMIN S/P/B 3.7 3.4 - 5.0 G/DL 07/22/2024 3:37 PM [facility] AST 13(L) 15 - 37 U/L 07/22/2024 3:37 PM [facility] ALT 24 16 - 60 U/L 07/22/2024 3:37 PM T [facility] ALKALINE PHOSPHATASE S/P/B 55 50 - 136 U/L 07/22/2024 3:37 PM T [facility] ANION GAP 6.7 5 - 15 MMOL/L 07/22/2024 3:37 PM T [facility] BUN CREATININE RATIO 23.4 6 - 26 07/22/2024 3:37 PM T [facility] A/G RATIO 1.4 1.0 - 2.0 RATIO 07/22/2024 3:37 PM CDT [facility] GFR ESTIMATE >90 >90 ML/MIN/1.7 3 M2 07/22/2024 3:37 PM CDT [facility] Comment: NOTE: eGFR is not calculated for patients <18 years of age. This is an estimated GFR calculation using the new CKD EPI creatinine equation without race and so does not require a correction factor for race. This estimated GFR should not be used for calculating drug doses. 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
[2024-08-28 22:29] LABS: Basophils Absolute Auto 0.1 K/mm3 (0.0-0.1); Basophils Percent Auto 0.7 % (0.2-1.2); Eosinophils Percent Auto 0.1 % (0-4.4); Hematocrit 33.1 % (42.0-52.0); Hemoglobin 10.5 g/dL (14.0-18.0); Immature Granulocyte Absolute 0.08 K/mm3 (0.00-0.031); Immature Granulocyte Percent A 0.4 % (0-0.5); Lymphocytes Absolute Auto 2.12 K/mm3 (0.9-3.2); Lymphocytes Percent Auto 10.6 % (18.3-44.2); Mean Corpuscular HGB Conc 31.7 g/dl (32-36); Mean Corpuscular Hemoglobin 29.1 pg (26-34); Mean Corpuscular Volume 91.7 fl (80-100); Mean Platelet Volume 9.2 fl (7.4-10.4); Monocytes Absolute Auto 1.8 K/mm3 (0.1-0.6); Monocytes Percent Auto 8.9 % (2.6-8.5); Neutrophils Absolute Auto 15.9 K/mm3 (1.3-6.7); Neutrophils Percent Auto 79.3 % (45.5-73.1); Platelet Count Result 446 k/mm3 (150-375); Red Blood Count 3.61 M/mm3 (4.6-6.20); Red Cell Distribution Width 17.2 % (11.5-14.5); White Blood Count 20.1 K/mm3 (4.5-10.0)
[2024-08-28 22:31] LABS: Add Urine Microscopic? NO; Appearance Urine Clear (Clear); Bilirubin Urine Negative (Negative); Blood Urine Negative (Negative); Color Urine Yellow (Yellow); Glucose Urine UA Negative (Negative); Ketones Urine 1+ mg/dL (Negative); Leukocyte Esterase Ur Negative LEU/UL (Negative); Nitrate Urine Negative (Negative); Protein Urine Negative (Negative); Specific Grav Ur 1.014 (1.001-1.035); Urobilinogen Urine 0.2 mg/dL (<2.0); pH Urine 5.5 (5.0-9.0)
[2024-08-28 22:40] LABS: Lactic Acid Reflex 1.1 mmol/L (0.7-2.0)
[2024-08-28 22:40] LABS: Alveolar/Arterial O2 Gradient 38.7 mmHg; Base Excess ABG 4.7 mEq/l (+/-2.0); HCO3 ABG 27.7 mEq/l (22.0-26.0); Oxygen Content ABG 13.4 %vol (16.0-22.0); Oxygen Saturation ABG 95.5 % (95.0-100.0); PCO2 ABG 34.8 mmHg (35.0-45.0); PO2 ABG 69.4 mmHg (80.0-100.0); Total Hemoglobin 10.5 g/dL (12.0-18.0)
[2024-08-28 22:41] LABS: Alanine Aminotransferase 29 U/L (6-50); Albumin Level 4.7 g/dL (3.5-5.1); Alkaline Phosphatase 68 U/L (38-126); Anion Gap 19 mmol/L (4-12); Aspartate Amino Transferase 33 U/L (17-59); Bilirubin,Total 0.4 mg/dL (0.2-1.3); Blood Urea Nitrogen 17 mg/dL (9-20); Calcium 9.1 mg/dL (8.4-10.2); Carbon Dioxide 23 mmol/L (22-30); Chloride 98 mmol/L (98-107); Estimated CRCL calculation 137 ml/min; Estimated Glomerular Filt Rate > 60; Glucose 146 mg/dL (65-110); Lipase 12 U/L (23-300); Potassium 3.8 mmol/L (3.4-5.0); Sodium 140 mmol/L (137-145)
[2024-08-28 22:42] LABS: Modified Allen's Test Pass; Site Drawn RIGHT RADIAL
[2024-08-28 22:43] LABS: Device NASAL CANNULA; Fractional Inspired Oxygen 28 %
[2024-08-28] MEDS: LORazepam INJ (*CRX) 2 MG/ML VIAL 1 MG IV PUSH (22:44)
[2024-08-28 22:45] LABS: INR 0.9; Prothrombin Time 12.8 Seconds (11.1-14.7)
[2024-08-28 22:46] LABS: Amphetamine Screen Urine Negative (Negative); Barbiturate Screen Urine Negative (Negative); Benzodiazepines Screen Urine Positive (Negative); Cannabinoid Screen Urine Negative (Negative); Cocaine Screen Urine Negative (Negative); Methadone Screen Urine Negative (Negative); Opiate Screen Urine Negative (Negative); Partial Thromboplastin Time 33.6 Seconds (22.3-36.8); Phencyclidine Screen Urine Negative (Negative)
[2024-08-28 22:46] LABS: pH ABG 7.518 (7.350-7.450)
[2024-08-28 22:54] LABS: NT Pro B Type Natriuretic Pept 1060 pg/mL (19.9-100); Troponin I 0.033 ng/mL (0.000-0.034)
[2024-08-28 23:40] LABS: Ethanol < 10 mg/dL (<10)
[2024-08-28 23:45] VITALS: BP 131/95; PULSE 120; RESP 23; O2SAT 97
[2024-08-29] VITALS (18 sets, daily range): BP systolic 100–135; BP diastolic 69–97; PULSE 80–116; RESP 16–25; TEMP 36.4–36.8; O2SAT 93–100; BMI 18.0
--- NOTE | 2024-08-29 | PC.NURSE ---
Pt reports that he is in pain. States the only thing that helped last time I was here was Dilaudid. EDP made aware.
[2024-08-29] MEDS: SODIUM CHLORIDE 0.9% IV 1,000 ML 999 ML IV CONT ×2 (00:04→03:16)
[2024-08-29 00:12] LABS: Thyroid Stimulating Hormone Reflex 0.591 uIU/mL (0.465-4.68)
--- NOTE | 2024-08-29 00:16 | PC.NURSE ---
Attempted to draw 3 hour trop. Pt in scan. Will draw lab when pt returns.
--- NOTE | 2024-08-29 00:19 | ECG_ITS ---
Test Date: 2024-08-29 03:37:44 Measurements Intervals [place] Rate: 94 P: 26 WV: 149 QRS: 59 QRSD: 92 T: 39 QT: 385 QTc: 484 Interpretive Statements SINUS RHYTHM INCOMPLETE RIGHT BUNDLE BRANCH BLOCK LOW QRS VOLTAGE IN DIFFUSE LEADS BORDERLINE ECG Compared to ECG 08/28/2024 21:41:01 HEART RATE HAS DECREASED Electronically Signed On 08-29-2024 07:51:48 CDT by Watson Sandoval D.O.
[2024-08-29 00:44] LABS: Influenza A QL RT-PCR Negative (Negative); Influenza B QL RT-PCR Negative (Negative); RSV RNA, RT-PCR Negative (Negative); SARS-CoV-2 RNA PCR Negative (Negative)
[2024-08-29] MEDS: HYDROmorphone HCL INJ (*CRX) 2 MG/ML VIAL 0.5 MG IV PUSH (01:55)
[2024-08-29 02:16] LABS: CRP 2.3 mg/dL (<1.0)
[2024-08-29 02:27] LABS: Troponin I 0.037 ng/mL (0.000-0.034)
--- NOTE | 2024-08-29 03:11 | ECG_ITS ---
Test Date: 2024-08-29 06:23:45 Measurements Intervals [place] Rate: 97 P: 34 [place]: 146 QRS: 24 QRSD: 89 T: 33 QT: 376 QTc: 479 Interpretive Statements SINUS RHYTHM LOW QRS VOLTAGE IN DIFFUSE LEADS POSSIBLE RIGHT VENTRICULAR CONDUCTION DELAY NONSPECIFIC T-WAVE ABNORMALITY- ANT/INF LEADS BASELINE ARTIFACT- I, III, AVR, AVL, AVF BORDERLINE ECG Compared to ECG 08/29/2024 03:37:44 No significant changes Electronically Signed On 08-29-2024 07:52:35 CDT by Watson Sandoval D.O.
[2024-08-29] MEDS: THIAMINE HCL 200 MG/2 ML VIAL 100 MG IV PUSH (03:26)
[2024-08-29] MEDS: AZITHROMYCIN 500 MG/NS 250 ML 500 MG/250 ML BAG 250 MG IVPB (03:47)
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
--- NOTE | 2024-08-29 07:00 | ADMGEN ---
This patient, Douglas Wright, was admitted to IMU Room 202-. Patient/family oriented to hospital policies and general routines including ID bracelet, bed and alarms, visiting hours, pain management, procedures, bathroom and other care routines, personal items, smoking policy, room service/diet, and visiting hours. Information on how to activate the Rapid Response Team has been discussed. Patient/Family are encouraged to report perceived risks to care and to ask questions if they do not understand what they are told or what they should do.
[2024-08-29 07:13] LABS: Troponin I 0.036 ng/mL (0.000-0.034)
[2024-08-29 08:12] LABS: Glucose Point of Care 226 mg/dl (65-105)
[2024-08-29 08:25] LABS: Basophils Absolute Auto 0.1 K/mm3 (0.0-0.1); Basophils Percent Auto 0.8 % (0.2-1.2); Eosinophils Percent Auto 0.4 % (0-4.4); Hematocrit 30.1 % (42.0-52.0); Hemoglobin 9.5 g/dL (14.0-18.0); Immature Granulocyte Absolute 0.04 K/mm3 (0.00-0.031); Immature Granulocyte Percent A 0.4 % (0-0.5); Lymphocytes Absolute Auto 1.99 K/mm3 (0.9-3.2); Lymphocytes Percent Auto 19.4 % (18.3-44.2); Mean Corpuscular HGB Conc 31.6 g/dl (32-36); Mean Corpuscular Hemoglobin 29.4 pg (26-34); Mean Corpuscular Volume 93.2 fl (80-100); Mean Platelet Volume 9.3 fl (7.4-10.4); Monocytes Absolute Auto 0.9 K/mm3 (0.1-0.6); Monocytes Percent Auto 8.4 % (2.6-8.5); Neutrophils Absolute Auto 7.3 K/mm3 (1.3-6.7); Neutrophils Percent Auto 70.6 % (45.5-73.1); Platelet Count Result 343 k/mm3 (150-375); Red Blood Count 3.23 M/mm3 (4.6-6.20); Red Cell Distribution Width 17.2 % (11.5-14.5); White Blood Count 10.3 K/mm3 (4.5-10.0)
[2024-08-29 08:45] LABS: Anion Gap 4 mmol/L (4-12); Blood Urea Nitrogen 21 mg/dL (9-20); Carbon Dioxide 32 mmol/L (22-30); Chloride 101 mmol/L (98-107); Estimated CRCL calculation 126 ml/min; Estimated Glomerular Filt Rate > 60; Glucose 206 mg/dL (65-110); Magnesium 2.1 mg/dL (1.6-2.3); Sodium 137 mmol/L (137-145)
[2024-08-29] MEDS: THIAMINE HCL 100 MG TABLET PO (08:53)
[2024-08-29] MEDS: PREGABALIN (*CRX) 50 MG CAPSULE 100 MG PO (08:53)
[2024-08-29] MEDS: INSULIN ASPART (*BKC) 100 UNITS/ML SUB-Q (08:53)
[2024-08-29] MEDS: clonazePAM (*CRX) 0.5 MG TABLET 2 MG PO ×2 (08:53→17:35)
[2024-08-29] MEDS: SACUBITRIL/VALSARTAN 24-26 MG TABLET 1 TAB PO ×2 (08:53→20:17)
[2024-08-29] MEDS: carvediloL 3.125 MG TABLET PO ×2 (08:54→20:16)
[2024-08-29] MEDS: PANTOPRAZOLE 40 MG TABLET PO (08:54)
[2024-08-29] MEDS: ENOXAPARIN 40 MG/0.4 ML SYRINGE SUB-Q (08:58)
--- OUTSIDE RECORDS SUMMARY | 2024-08-29 09:54 | XMS_ITS | Referral Summary ---
Author Organization [facility] [address] Address [address] [place] [address] Care Team Providers Care Matcher Operator Name Role Phone Pelon Rodriguez MD Primary Care Provi panda Erich Infante MD Unavailable [phone] Simran Pruett Unavailable Unavailable Encounters Date Type Department Care Team Description 08/23/2024 SHOP/CHAP Initial Outreach [facility] OP CASE MANAGEMENT [address] [place] [address] Angelic Melton RN 08/23/2024 SHOP/CHAP Initial Eligibility Review [facility] OP CASE MANAGEMENT [address] [place] [address] Angelic Melton RN 08/15/2024 6:09 AM CDT - 08/21/2024 2:06 PM CDT Hospital Encounter [facility] 1 [place] [address] Wenceslao Reina MD Freer, MD Aubrey Alfonso, Jesse Arvizu MD Cardiogenic shock (HCC) (Primary Dx) Discharge Disposition: Discharge to home or self care 08/16/2024 [facility] CHW Eligibility Review [facility] Community Health Worker [address] [place] [address] [address] [place] [address] Lindsey Jiang 08/13/2024 Telephone [facility] Transplant Heart [address] [facility] [address] Mailstop -[phone] [place] [address] Ginette Chavez RN 08/11/2024 Telephone [facility] Transplant Heart [address] [facility] [address] Mailstop [phone] [place] [address] Reena Ames 08/10/[address] [facility] Medical Group Cardiology [address] [facility] [address], [place] [address] Tony Mcelroy MD critical postassium level 08/06/[address] [facility] Medical [facility] Cardiology [address] [facility] [address] [place] [phone] Tony Mcelroy MD 08/05/[address] [facility] Medical [facility] Cardiology [address] [facility] [address] [place] [phone] Kelly Friend NP 08/03/[address] [facility] Medical [facility] Cardiology [address] [facility] [address] [place] [phone] Wilbert Humphreys MD 07/27/2024 Telephone [facility] Transplant Heart [address] [facility] [address] Mailop -[phone] [place] [address] Ginette Chavez RN 07/27/2024 9:45 AM CDT Office Visit [facility] Cardiology [facility] Medical Office Building [address] [place] [address] Erich Infante MD Chronic combined systolic and diastolic congestive heart failure (HCC) (Primary Dx); Receiving inotropic medication; Alcoholic cardiomyopathy (HCC); Alcohol intoxication in active alcoholic; Marijuana use; High risk medication use 07/22/2024 Telephone [facility] Transplant Heart [address] [facility] [address] Mailstop -[phone] [place] [address] Reena Ames 07/15/[address] [facility] Home Care Services [address] [place] [address] [address] [place] [address] Unknown, Notinfile 06/24/2024 Results Follow-Up [facility] V[facility] Center [address] [facility] [place] [address] Erich Infante MD 06/24/2024 Telephone [facility] Cardiology [address] [facility] 8th [place] [address] [place] [phone] Erich Infante MD 06/23/2024 Telephone [facility] Transplant Heart [address] [facility] [address] Mailstop [phone] [place] [address] Royal Lozada 06/23/2024 Telephone [facility] Transplant Heart [address] [facility] [address] Mailstop [phone] [place] [address] John Teixeira RN 06/23/2024 10:00 AM 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 [employer] Office Visit [facility] Cardiology [address] [place] [address] Office [address] [place] [address] Lurdes Chiang NP Chronic systolic heart failure (HCC) (Primary Dx) 06/23/2024 8:30 AM OPERATOR [employer] Ancillary Procedure [facility] [place] [address] [place] [address] [address] [place] [address] Chronic combined systolic and diastolic congestive heart failure (HCC) 06/23/2024 Telephone [facility] Cardiology [address] [place] [address] Medical Office Building [address] [place] [address] Lurdes Chiang NP from Last 3 Months [...] Tobacco: Former Tobacco Cessation:Counseling Given: Not Answered [facility] Utilities Answer Date Recorded In the past 12 months has [employer] gas, oil, or water [employer] threatened to shut off services in your [...] often do you attend chur ch or jewish services? Never 08/19/2024 Do you belong to any clubs o r organizations such as mandaeism groups, unions, fraternal or athletic groups, or [...] any time in the past 12 m [facility], were you homeless or living in a long term (including now)? No 08/19/2024 Personal Safety Answer Date Recorded Have you ever been in or are you currently in a harmful physical or emotional relationship or is someone making you feel afraid or unsafe? Patient unable to answer 08/15/2024 Sex and Gender Information Value Date Recorded Sex Assigned at Not on file Legal Sex Male 9:52 PM [employer]ATOR [employer] Gender Identity Not on file Sexual Orientation [...] DEVICE Routine 08/15/2024 1 0:[address] [facility] NON-TUNNELED CENTRAL VENOUS CATH AGE 4 YR/> Routine 08/15/2024 9:58 AM CDT Cardiogenic shock (HCC) POC BLOOD GAS AND CHEMISTRIES, ARTERIAL Routine 08/15/2024 9:57 AM CDT URINALYSIS, MICROSCOPIC ONLY Routine 08/15/2024 9:56 AM CDT URINALYSIS AND REFLEX TO MICROSCOPIC AND CULTURE Routine 08/15/2024 9:[address] ARTL CATHJ/CANNULJ MNTR/TRANSFUSION SPX PRQ Routine 08/15/2024 [...] DOPPLER/CF W CONTRAST Routine 06/23/2024 9:34 AM OPERATOR [employer] Chronic combined systolic and diastolic congestive heart failure (HCC) POCT LIPID PANEL Routine 04/16/2024 3:29 PM [employer] Chronic systolic congestive heart failure (HCC) from Last 3 Months or Most Recently Relevant to Health Maintenance Results * (ABNORMAL) POCT glucose (08/21/2024 8:12 AM CDT) Glucose, POC 264(H) 70 - 199 mg/dL Blood 08/21/2024 8:12 AM CDT 08/21/2024 8:12 AM CDT us Jesse Burgos MD LAB POCT ORDERABLES - DEVICE Fi nal Result [facility] [address] [facility] [place] [address] * eGFR (08/21/2024 5:01 AM CDT) eGFR [...] ORDERABLES Final Resu lt Performing Organization Address City/[facility]/ZIP Co de Phone Number [facility] [place] [address] * Phosphorus (08/21/2024 5:01 AM CDT) Phosphorus, pl 3.4 2.3 - 4.5 mg/dL Blood 08/21/2024 5:01 AM CDT 08/21/2024 6:09 AM CDT Jesse Burgos MD LAB BLOOD ORDERABLES Final Resu lt Performing Organization Address City/[facility] Co de Phone Number [facility] [place] [address] * (ABNORMAL) Basic metabolic panel (08/21/2024 5:01 AM CDT) Sodium 138 135 - 145 mmol/L Potassium, pl 4.4 3.3 - 4.9 mmol/L [facility] Chloride 95(L) 97 - 110 mmol/L [facility] CO2 33(H) 22 - 32 mmol/L [facility] Anion gap 10 2 - 15 mmol/L [facility] BUN 25 6 - 25 mg/dL [facility] Creatinine 0.74(L) 0.80 - 1.30 mg/dL [facility] Glucose 233(H) 70 - 199 mg/dL [facility] Comment: Interpretive Data Fasting glucose [...] 2022. Calcium 10.0 8.5 - 10.3 mg/dL [facility] Blood 08/21/2024 5:01 AM CDT 08/21/2024 6:09 AM CDT Jesse Burgos MD LAB BLOOD ORDERABLES Final Resu lt Performing Organization Address [facility] Co de Phone Number [facility] [place] [address] * POCT glucose (08/20/2024 8:03 PM CDT) Glucose, POC 83 70 - 199 mg/dL Blood 08/20/2024 8:03 PM CDT 08/20/2024 8:03 PM CDT Jesse Burgos MD LAB POCT ORDERABLES - DEVICE Fi nal Result Performing Organization Address [facility] de Phone Number [facility] [place] [address] * POCT glucose (08/20/2024 4:52 PM CDT) Glucose, POC 154 70 - 199 mg/dL Blood 08/20/2024 4:52 PM CDT 08/20/2024 4:52 PM CDT Jesse Burgos MD LAB POCT ORDERABLES - DEVICE Fi nal Result Performing Organization Address [facility] Co de Phone Number [facility] [place] [address] * (ABNORMAL) POCT glucose (08/20/2024 12:27 PM CDT) Glucose, POC 210(H) 70 - 199 mg/dL Blood 08/20/2024 12:2 7 PM CDT 08/20/2024 12:27 PM CDT Jesse Burgos MD LAB POCT ORDERABLES - DEVICE Fi nal Result Performing Organization Address City/[facility] Co de Phone Number [facility] [place] [address] * POCT glucose (08/20/2024 8:27 AM CDT) Glucose, POC 95 70 - 199 mg/dL Blood 08/20/2024 8:27 AM CDT 08/20/2024 8:27 AM CDT Jesse Burgos MD LAB POCT ORDERABLES - DEVICE Fi nal Result Performing Organization Address [facility] de Phone Number [facility] [place] [address] * eGFR (08/20/2024 4:05 AM CDT) eGFR [...] ORDERABLES Final Resu lt Performing Organization Address City/[facility]/ZIP Co de Phone Number [facility] [place] [address] * Phosphorus (08/20/2024 4:05 AM CDT) Phosphorus, pl 4.4 2.3 - 4.5 mg/dL Blood 08/20/2024 4:05 AM CDT 08/20/2024 4:49 AM CDT Jesse Burgos MD LAB BLOOD ORDERABLES Final Resu lt Performing Organization Address City/[facility] de Phone Number [facility] [place] [address] * (ABNORMAL) Basic metabolic panel (08/20/2024 4:05 AM CDT) Sodium 139 135 - 145 mmol/L Potassium, pl 4.3 3.3 - 4.9 mmol/L [facility] Chloride 96(L) 97 - 110 mmol/L [facility] CO2 36(H) 22 - 32 mmol/L [facility] Anion gap 7 2 - 15 mmol/L [facility] BUN 22 6 - 25 mg/dL [facility] Creatinine 0.67(L) 0.80 - 1.30 mg/dL [facility] Glucose 115 70 - 199 mg/dL [facility] Comment: Interpretive Data Fasting glucose [...] 2022. Calcium 10.0 8.5 - 10.3 mg/dL [facility] Blood 08/20/2024 4:05 AM CDT 08/20/2024 4:49 AM CDT Jesse Burgos MD LAB BLOOD ORDERABLES Final Resu lt Performing Organization Address [facility] Co de Phone Number [facility] [place] [address] * POCT glucose (08/19/2024 7:41 PM CDT) Glucose, POC 146 70 - 199 mg/dL Blood 08/19/2024 7:41 PM CDT 08/19/2024 7:41 PM CDT Jesse Burgos MD LAB POCT ORDERABLES - DEVICE Fi nal Result Performing Organization Address [facility] Co de Phone Number [facility] [place] [address] * POCT glucose (08/19/2024 5:27 PM CDT) Glucose, POC 175 70 - 199 mg/dL Blood 08/19/2024 5:27 PM CDT 08/19/2024 5:27 PM CDT Jesse Burgos MD LAB POCT ORDERABLES - DEVICE Fi nal Result Performing Organization Address [facility] Co de Phone Number [facility] [place] [address] * POCT glucose (08/19/2024 3:56 PM CDT) Glucose, POC 92 70 - 199 mg/dL Blood 08/19/2024 3:56 PM CDT 08/19/2024 3:56 PM CDT Jesse Burgos MD LAB POCT ORDERABLES - DEVICE Fi nal Result Performing Organization Address [facility] Co de Phone Number [facility] [place] [address] * POCT glucose (08/19/2024 11:47 AM CDT) Glucose, POC 162 70 - 199 mg/dL Blood 08/19/2024 11:4 7 AM CDT 08/19/2024 11:47 AM CDT Jesse Burgos MD LAB POCT ORDERABLES - DEVICE Fi nal Result Performing Organization Address [facility] Co de Phone Number [facility] [place] [address] * POCT glucose (08/19/2024 8:13 AM CDT) Glucose, POC 114 70 - 199 mg/dL Blood 08/19/2024 8:13 AM CDT 08/19/2024 8:13 AM CDT Jesse Burgos MD LAB POCT ORDERABLES - DEVICE Fi nal Result Performing Organization Address City/[facility] Co de Phone Number [facility] [place] [address] * POCT glucose (08/19/2024 5:31 AM CDT) Glucose, POC 121 70 - 199 mg/dL Blood 08/19/2024 5:31 AM CDT 08/19/2024 5:31 AM CDT us Jesse Burgos MD LAB POCT ORDERABLES - DEVICE Fi nal Result Performing Organization Address [facility] Co de Phone Number [facility] [place] [address] * eGFR (08/19/2024 5:25 AM CDT) eGFR [...] ORDERABLES Final Resu lt Performing Organization Address [facility]/ZIP Co de Phone Number [facility] [place] [address] * (ABNORMAL) Basic metabolic panel (08/19/2024 5:25 AM CDT) Sodium 138 135 - 145 mmol/L Potassium, pl 4.3 3.3 - 4.9 mmol/L [facility] Chloride 94(L) 97 - 110 mmol/L [facility] CO2 36(H) 22 - 32 mmol/L [facility] Anion gap 8 2 - 15 mmol/L [facility] BUN 24 6 - 25 mg/dL [facility] Creatinine 0.66(L) 0.80 - 1.30 mg/dL [facility] Glucose 104 70 - 199 mg/dL [facility] Comment: Interpretive Data Fasting glucose [...] 2022. Calcium 10.4(H) 8.5 - 10.3 mg/dL [facility] Blood 08/19/2024 5:25 AM CDT 08/19/2024 5:56 AM CDT us Jesse Burgos MD LAB BLOOD ORDERABLES Final Resu lt [facility] [place] [address] * POCT glucose (08/18/2024 8:45 PM CDT) Glucose, POC 127 70 - 199 mg/dL Blood 08/18/2024 8:45 PM CDT 08/18/2024 8:45 PM CDT us Jesse Burgos MD LAB POCT ORDERABLES - DEVICE Fi nal Result [facility] [place] [address] * POCT glucose (08/18/2024 7:52 PM CDT) Glucose, POC 79 70 - 199 mg/dL Blood 08/18/2024 7:52 PM CDT 08/18/2024 7:52 PM CDT Jesse Burgos MD LAB POCT ORDERABLES - DEVICE Fi nal Result Performing Organization Address [facility] Co de Phone Number [facility] [place] [address] * (ABNORMAL) POCT glucose (08/18/2024 7:31 PM CDT) Glucose, POC 42(C) 70 - 199 mg/dL Comment:Glu2: RN/MD Notified Glucose comment 1 Glu2: RN/MD Notified [facility] Blood 08/18/2024 7:31 PM CDT 08/18/2024 7:31 PM CDT Jesse Burgos MD LAB POCT ORDERABLES - DEVICE Fi nal Result Performing Organization Address [facility] Co de Phone Number [facility] [place] [address] * POCT glucose (08/18/2024 4:42 PM CDT) Glucose, POC 122 70 - 199 mg/dL Blood 08/18/2024 4:42 PM CDT 08/18/2024 4:42 PM CDT Jesse Burgos MD LAB POCT ORDERABLES - DEVICE Fi nal Result Performing Organization Address [facility] [place] [address] * (ABNORMAL) POCT glucose (08/18/2024 12:09 PM CDT) Glucose, POC 202(H) 70 - 199 mg/dL Blood 08/18/2024 12:0 9 PM CDT 08/18/2024 12:09 PM CDT Jesse Burgos MD LAB POCT ORDERABLES - DEVICE Fi nal Result Performing Organization Address City/[facility] Co de Phone Number [facility] [place] [address] * POCT glucose (08/18/2024 8:10 AM CDT) Glucose, POC 82 70 - 199 mg/dL Blood 08/18/2024 8:10 AM CDT 08/18/2024 8:10 AM CDT Jesse Burgos MD LAB POCT ORDERABLES - DEVICE Fi nal Result Performing Organization Address [facility] de Phone Number [facility] [place] [address] * eGFR (08/18/2024 6:19 AM CDT) eGFR [...] ORDERABLES Final Resu lt Performing Organization Address [facility] Co de Phone Number [facility] [place] [address] * HIV 1/2 Antibody plus p24 Antigen Blood (08/18/2024 6:19 AM CDT) Pathologist [facility] HIV 1/2 ab + p24 ag Nonreactive [...] ORDE RABLES Final Result Performing Organization Address [facility] [place] [address] * Hepatitis C antibody Blood (08/18/2024 6:19 AM CDT) Pathologist [facility] Hep C Ab Nonreactive Nonreactive Comment:Antibodies to HCV no t detected. Does NOT exclude the possibility of recent exposure to HCV. Current interpretive data was last revised on 22 Blood 08/18/2024 6:19 AM CDT 08/18/2024 6:44 AM CDT Jesse Burgos MD LAB MICROBIOLOGY - GENERAL ORDJoshua BOJORQUEZ Final Result Performing Organization Address [facility] Co de Phone Number [facility] [place] [address] * RPR Blood (08/18/2024 6:19 AM CDT) RPR Nonreactive Nonreactive Blood 08/18/2024 6:19 AM CDT 08/18/2024 6:44 AM CDT us Jesse Burgos MD LAB MICROBIOLOGY - GENERAL ORDJoshua RABCRYSTAL Final Result Performing Organization Address [facility] Co de Phone Number [facility] [place] [address] * Hepatitis B Surface Antigen Blood (08/18/2024 6:19 AM CDT) HepBsAg Nonreactive Nonreactive Blood 08/18/2024 6:19 AM CDT 08/18/2024 6:44 AM CDT us Jesse Burgos MD LAB MICROBIOLOGY - GENERAL SHREYA BOJORQUEZ Final Result Performing Organization Address [facility] de Phone Number [facility] [place] [address] * Phosphorus (08/18/2024 6:19 AM CDT) Phosphorus, pl 2.9 2.3 - 4.5 mg/dL Blood 08/18/2024 6:19 AM CDT 08/18/2024 6:44 AM CDT us Wenceslao Reina MD LAB BLOOD ORDERABLES Final R esult Performing Organization Address [facility] Co de Phone Number [facility] [place] [address] * Creatine kinase (CK), total (08/18/2024 6:19 AM CDT) CK 207 40 - 300 Units/L Blood 08/18/2024 6:19 AM CDT 08/18/2024 6:44 AM CDT us Jesse Burgos MD LAB BLOOD ORDERABLES Final Resu lt [facility] [place] [address] * (ABNORMAL) Basic metabolic panel (08/18/2024 6:19 AM CDT) Sodium 137 135 - 145 mmol/L Potassium, pl 3.9 3.3 - 4.9 mmol/L [facility] Chloride 93(L) 97 - 110 mmol/L [facility] CO2 36(H) 22 - 32 mmol/L [facility] Anion gap 8 2 - 15 mmol/L [facility] BUN 21 6 - 25 mg/dL [facility] Creatinine 0.59(L) 0.80 - 1.30 mg/dL [facility] Glucose 96 70 - 199 mg/dL [facility] Comment: Interpretive Data Fasting glucose [...] 2022. Calcium 9.4 8.5 - 10.3 mg/dL [facility] Blood 08/18/2024 6:19 AM CDT 08/18/2024 6:44 AM CDT us Jesse Burgos MD LAB BLOOD ORDERABLES Final Resu lt [place] [facility] [place] [address] * POCT glucose (08/17/2024 7:55 PM CDT) Glucose, POC 172 70 - 199 mg/dL Blood 08/17/2024 7:55 PM CDT 08/17/2024 7:55 PM CDT Jesse Burgos MD LAB POCT ORDERABLES - DEVICE Fi nal Result Performing Organization Address [facility] de Phone Number [facility] [place] [address] * POCT glucose (08/17/2024 5:04 PM CDT) Glucose, POC 188 70 - 199 mg/dL Blood 08/17/2024 5:04 PM CDT 08/17/2024 5:04 PM CDT us Jesse Burgos MD LAB POCT ORDERABLES - DEVICE Fi nal Result Performing Organization Address [facility] Phone Number [facility] [place] [address] * POCT glucose (08/17/2024 11:11 AM CDT) Glucose, POC 163 70 - 199 mg/dL Blood 08/17/2024 11:1 1 AM CDT 08/17/2024 11:11 AM CDT us Jesse Burgos MD LAB POCT ORDERABLES - DEVICE Fi nal Result Performing Organization Address [facility] de Phone Number [facility] [place] [address] * Lactate (08/17/2024 10:58 AM CDT) Lactate 1.6 0.7 - 2.0 mmol/L Blood 08/17/2024 10:5 8 AM CDT 08/17/2024 12:40 PM CDT Jesse Burgos MD LAB BLOOD ORDERABLES Final Resu lt Performing Organization Address [facility]/ZIP Co de Phone Number [facility] [place] [address] * POCT glucose (08/17/2024 7:38 AM CDT) Pathologist [facility] Glucose, POC 144 70 - 199 mg/dL Blood 08/17/2024 7:38 AM CDT 08/17/2024 7:38 AM CDT us Jesse Burgos MD LAB POCT ORDERABLES - DEVICE Fi nal Result Performing Organization Address [facility] de Phone Number [facility] [place] [address] * eGFR (08/17/2024 6:06 AM CDT) [facility] eGFR >90 >=60 mL/min/1. 73 m2 Comment: [...] ORDERABLES Chelsea l Result Performing Organization Address [facility] [facility] [place] Co de Phone Number [facility] [place] [address] * (ABNORMAL) Iron profile w/ IBC (08/17/2024 6:06 AM CDT) [facility] Iron 38(L) 50 - 150 mcg/dL TIBC 200(L) 250 - 400 mcg/dL [facility] Transferrin saturation 19(L) 20 - 50 % [facility] Blood 08/17/2024 6:06 AM CDT 08/17/2024 6:49 AM CDT us Isaiah Segura MD LAB BLOOD ORDERABLES Chelsea rainey Result [facility] [place] [address] * (ABNORMAL) CBC without differential (08/17/2024 6:06 AM CDT) [facility] WBC 7.55 3.80 - 9.90 K/cumm Hgb 10.3(L) 13.0 - 17.5 g/dL [facility] Hct 31.9(L) 38.9 - 50.3 % [facility] Plt 150 150 - 400 K/cumm [facility] MPV 9.1 9.1 - 12.3 fL [facility] RBC 3.58(L) 4.30 - 5.80 M/cumm [facility] MCV 89.1 81.3 - 96.4 fL [facility] MCH 28.8 27.1 - 33.3 pg [facility] MCHC 32.3 32.3 - 35.7 g/dL [facility] RDW CV 15.4(H) 11.1 - 14.9 % [facility] RDW SD 50.7(H) 35.7 - 48.1 fL [facility] NRBC abs 0.00 0.00 - 0.01 K/cumm [facility] Blood 08/17/2024 6:06 AM CDT 08/17/2024 6:49 AM CDT us Isaiah Segura MD LAB BLOOD ORDERABLES Chelsea l Result Performing Organization Address City/[facility]/ZIP Co de Phone Number [facility] [place] [address] * Phosphorus (08/17/2024 6:06 AM CDT) Phosphorus, pl 2.3 2.3 - 4.5 mg/dL Blood 08/17/2024 6:06 AM CDT 08/17/2024 6:49 AM CDT us Wenceslao Reina MD LAB BLOOD ORDERABLES Final R esult Performing Organization Address [facility] [place] Co de Phone Number [facility] [place] [address] * Magnesium (08/17/2024 6:06 AM CDT) Magnesium 2.1 1.4 - 2.5 mg/dL Blood 08/17/2024 6:06 AM CDT 08/17/2024 6:49 AM CDT us Isaiah Segura MD LAB BLOOD ORDERABLES Chelsea l Result Performing Organization Address [facility] [place] Co de Phone Number [facility] [place] [address] * Folate (08/17/2024 6:06 AM CDT) Folic acid >20.0 >=5.0 ng/mL Blood 08/17/2024 6:06 AM CDT 08/17/2024 6:49 AM CDT us Isaiah Segura MD LAB BLOOD ORDERABLES Chelsea l Result Performing Organization Address City/[facility]/ZIP Co de Phone Number [facility] [place] [address] * Ferritin (08/17/2024 6:06 AM CDT) [facility] Ferritin 234 30 - 400 ng/mL Blood 08/17/2024 6:06 AM CDT 08/17/2024 6:49 AM CDT Isaiah Segura MD LAB BLOOD ORDERABLES Chelsea l Result Performing Organization Address City/[facility] Co de Phone Number [facility] [place] [address] * (ABNORMAL) Vitamin B12 (08/17/2024 6:06 AM CDT) [facility] Vitamin B12 1,618(H) 230 - 1,250 pg/mL Blood 08/17/2024 6:06 AM CDT 08/17/2024 6:49 AM CDT Isaiah Segura MD LAB BLOOD ORDERABLES Chelsea l Result Performing Organization Address [facility] [place] de Phone Number [facility] [place] [address] * (ABNORMAL) Basic metabolic panel (08/17/2024 6:06 AM CDT) [facility] Sodium 135 135 - 145 mmol/L Potassium, pl 3.6 3.3 - 4.9 mmol/L [facility] Chloride 92(L) 97 - 110 mmol/L [facility] CO2 36(H) 22 - 32 mmol/L [facility] Anion gap 7 2 - 15 mmol/L [facility] BUN 14 6 - 25 mg/dL [facility] Creatinine 0.78(L) 0.80 - 1.30 mg/dL [facility] Glucose 124 70 - 199 mg/dL [facility] Comment: Interpretive Data Fasting glucose [...] 2022. Calcium 9.2 8.5 - 10.3 mg/dL [facility] Blood 08/17/2024 6:06 AM CDT 08/17/2024 6:49 AM CDT Isaiah Segura MD LAB BLOOD ORDERABLES Chelsea l Result Performing Organization Address [facility] [place] Co de Phone Number [facility] [place] [address] * POCT glucose (08/16/2024 9:19 PM CDT) Glucose, POC 173 70 - 199 mg/dL Blood 08/16/2024 9:19 PM CDT 08/16/2024 9:19 PM CDT Isaiah Segura MD LAB POCT ORDERABLES - DEV ICE Final Result Performing Organization Address [facility] [place] de Phone Number [facility] [place] [address] * POCT glucose (08/16/2024 9:10 PM CDT) Glucose, POC 192 70 - 199 mg/dL Blood 08/16/2024 9:10 PM CDT 08/16/2024 9:10 PM CDT Isaiah Segura MD LAB POCT ORDERABLES - DEV ICE Final Result Performing Organization Address [facility] [place] Co de Phone Number [facility] [place] [address] * Lactate (08/16/2024 7:03 PM CDT) Lactate 1.6 0.7 - 2.0 mmol/L Blood 08/16/2024 7:03 PM CDT 08/16/2024 7:17 PM CDT Isaiah Segura MD LAB BLOOD ORDERABLES Chelsea l Result Performing Organization Address City/[facility]/ZIP Co de Phone Number [facility] [place] [address] * POCT glucose (08/16/2024 5:13 PM CDT) Glucose, POC 125 70 - 199 mg/dL Blood 08/16/2024 5:13 PM CDT 08/16/2024 5:13 PM CDT Isaiah Segura MD LAB POCT ORDERABLES - DEV ICE Final Result Performing Organization Address [facility] [place] Co de Phone Number [facility] [place] [address] * Lactate (08/16/2024 4:56 PM CDT) Lactate 1.2 0.7 - 2.0 mmol/L Blood 08/16/2024 4:56 PM CDT 08/16/2024 5:29 PM CDT Isaiah Segura MD LAB BLOOD ORDERABLES Chelsea l Result Performing Organization Address [facility] [place] Co de Phone Number [facility] [place] [address] * (ABNORMAL) POCT glucose (08/16/2024 11:23 AM CDT) Glucose, POC 269(H) 70 - 199 mg/dL Blood 08/16/2024 11:2 3 AM CDT 08/16/2024 11:23 AM CDT us Isaiah Segura MD LAB POCT ORDERABLES - DEV ICE Final Result [facility] [place] [address] * TRANSTHORACIC ECHO (TTE) COMPLETE W DOPPLER/CF W CONTRAST (08/16/2024 11:21 AM CDT) Anatomical Region Laterality Modality Ultrasound 08/16/2024 10:0 1 AM CDT Narrative 08/16/2024 11:58 AM CDT [facility] [place] [place] [address] Transthoracic Echocardiographic Report Patient Name: SOPHIA HANNA STEPHEN : 1990 (34y 3m) Gender: M Study Date: 08/16/2024 10:01:37 AM Ht(Inch): 72 Wt(Lb): 138.01 BSA: 1.78 [employer] Market Economist: Patricia Carmichael RDCS Location: [id number] Order Provider: WENCESLAO REINA Heart Rate: 106 [...] Procedure Note Re Bautista MD - 08/16/2024 [facility] Card[facility] [place] [address] Transthoracic Echocardiographic Report Patient Name: SOPHIA HANNA STEPHEN : 1990 (34y 3m) Gender: M Study Date: 08/16/2024 10:01:37 AM Ht(Inch): 72 Wt(Lb): 138.01 BSA: 1.78 [employer] Market Economist: Patricia Carmichael RDCS Location: [id number] Order Provider:WENCESLAO REINA Heart Rate: 106 BMI: [...] LA Length 4C 3.89 cm MV Decel Pges107.48 msec [ 104.00 - 258.00 ] LA [...] LAB BLOOD ORDERABLES Chelsea l Result [facility] Department [place] [address] * (ABNORMAL) POCT glucose (08/16/2024 9:06 AM CDT) Glucose, POC 287(H) 70 - 199 mg/dL Blood 08/16/2024 9:06 AM CDT 08/16/2024 9:06 AM CDT us Isaiah Segura MD LAB POCT ORDERABLES - DEV ICE Final Result Performing Organization Address [facility] [place] Co de Phone Number [facility] [place] [address] * eGFR (08/16/2024 9:01 AM CDT) eGFR [...] ORDERABLES Final R esult Performing Organization Address City/[facility]/ZIP Co de Phone Number [facility] [place] [address] * (ABNORMAL) CBC without differential (08/16/2024 9:01 AM CDT) WBC 10.14(H) 3.80 - 9.90 K/cumm Hgb 11.4(L) 13.0 - 17.5 g/dL [facility] Hct 34.3(L) 38.9 - 50.3 % [facility] Plt 174 150 - 400 K/cumm [facility] MPV 9.6 9.1 - 12.3 fL [facility] RBC 3.92(L) 4.30 - 5.80 M/cumm [facility] MCV 87.5 81.3 - 96.4 fL [facility] MCH 29.1 27.1 - 33.3 pg [facility] MCHC 33.2 32.3 - 35.7 g/dL [facility] RDW CV 15.2(H) 11.1 - 14.9 % [facility] RDW SD 48.6(H) 35.7 - 48.1 fL [facility] NRBC abs 0.00 0.00 - 0.01 K/cumm [facility] Blood 08/16/2024 9:01 AM CDT 08/16/2024 10:05 AM CDT Wenceslao Reina MD LAB BLOOD ORDERABLES Final R esult [facility] [place] [address] * (ABNORMAL) Basic metabolic panel (08/16/2024 9:01 AM CDT) Sodium 130(L) 135 - 145 mmol/L Potassium, pl 3.5 3.3 - 4.9 mmol/L [facility] Chloride 86(L) 97 - 110 mmol/L [facility] CO2 36(H) 22 - 32 mmol/L [facility] Anion gap 8 2 - 15 mmol/L [facility] BUN 8 6 - 25 mg/dL [facility] Creatinine 0.65(L) 0.80 - 1.30 mg/dL [facility] Glucose 189 70 - 199 mg/dL [facility] Comment: Interpretive Data Fasting glucose [...] 2022. Calcium 9.2 8.5 - 10.3 mg/dL [facility] Blood 08/16/2024 9:01 AM CDT 08/16/2024 10:05 AM CDT Wenceslao Reina MD LAB BLOOD ORDERABLES Final R esult Performing Organization Address [facility] Co de Phone Number [facility] [place] [address] * Calcium, ionized (08/16/2024 5:40 AM CDT) Calcium, Ionized 4.59 4.50 - 5.10 mg/dL Blood 08/16/2024 5:40 AM CDT 08/16/2024 5:56 AM CDT Wenceslao Reina MD LAB BLOOD ORDERABLES Final R esult Performing Organization Address [facility] [place] Co de Phone Number [facility] [place] [address] * (ABNORMAL) Phosphorus (08/16/2024 5:40 AM CDT) Phosphorus, pl 1.3(L) 2.3 - 4.5 mg/dL Blood 08/16/2024 5:40 AM CDT 08/16/2024 5:56 AM CDT Wenceslao Reina MD LAB BLOOD ORDERABLES Final R esult Performing Organization Address [facility] Co de Phone Number [facility] [place] [address] * (ABNORMAL) Hepatic function panel (08/16/2024 5:40 AM CDT) [facility] Bilirubin, total 0.5 0.1 - 1.2 mg/dL Bilirubin, direct 0.2 0.1 - 0.3 mg/dL [facility] Protein, pl 6.5 6.5 - 8.5 g/dL [facility] Albumin 4.2 3.5 - 5.0 g/dL [facility] Alk phos 69 40 - 130 Units/L [facility] ALT 52 7 - 55 Units/L [facility] AST 88(H) 10 - 50 Units/L [facility] Blood 08/16/2024 5:40 AM CDT 08/16/2024 5:56 AM CDT Wenceslao Reina MD LAB BLOOD ORDERABLES Final R esult Performing Organization Address [place]/[facility]/ZIP Co de Phone Number [facility] [place] [address] * POCT glucose (08/16/2024 3:49 AM CDT) [facility] Glucose, POC 179 70 - 199 mg/dL Blood 08/16/2024 3:49 AM CDT 08/16/2024 3:49 AM CDT Wenceslao Reina MD LAB POCT ORDERABLES - DEVICE Final Result Performing Organization Address [facility] [place] Co de Phone Number [facility] [place] [address] * Oxyhemoglobin, pulmonary artery (08/15/2024 11:30 PM CDT) [facility] Oxyhemoglobin, PA 67.9 % Comment: Interpretive Data No reference range established. Current interpretive data was last revised 2019. Blood 08/15/2024 11:3 0 PM CDT 08/15/2024 11:49 PM CDT Wenceslao Reina MD LAB BLOOD ORDERABLES Final R esult Performing Organization Address [facility] [place] Co de Phone Number [facility] [place] [address] * (ABNORMAL) Hemoglobin total, pulmonary artery (08/15/2024 11:30 PM CDT) Hemoglobin total, PA 11.6(L) 13.0 - 17.5 g/dL Blood 08/15/2024 11:3 0 PM CDT 08/15/2024 11:49 PM CDT Wenceslao Reina MD LAB BLOOD ORDERABLES Final R esult Performing Organization Address [facility] Co de Phone Number [facility] [place] [address] * POCT glucose (08/15/2024 11:30 PM CDT) Glucose, POC 186 70 - 199 mg/dL Blood 08/15/2024 11:3 0 PM CDT 08/15/2024 11:30 PM CDT Result [facility] Wenceslao Reina MD LAB POCT ORDERABLES - DEVICE Final Result Performing Organization Address [facility] Co de Phone Number [facility] [place] [address] * Lactate, whole blood (08/15/2024 11:30 PM CDT) Lactate, bld 1.8 0.7 - 2.0 mmol/L Blood 08/15/2024 11:3 0 PM CDT 08/15/2024 11:49 PM CDT Wenceslao Reina MD LAB BLOOD ORDERABLES Final R esult Performing Organization Address [facility] [place] de Phone Number [facility] [place] [address] * eGFR (08/15/2024 9:17 PM CDT) eGFR [...] ORDERABLES Final R esult Performing Organization Address [facility] [place] de Phone Number [facility] [place] [address] * Magnesium (08/15/2024 9:17 PM CDT) Magnesium 2.1 1.4 - 2.5 mg/dL Blood 08/15/2024 9:17 PM CDT 08/15/2024 9:48 PM CDT us Mumtaz Juan MD LAB BLOOD ORDERABLES Fi nal Result Performing Organization Address [facility] [place]/ZIP Co de Phone Number [facility] [place] [address] * (ABNORMAL) Basic metabolic panel (08/15/2024 9:17 PM CDT) Sodium 130(L) 135 - 145 mmol/L Potassium, pl 4.2 3.3 - 4.9 mmol/L [facility] Chloride 87(L) 97 - 110 mmol/L [facility] CO2 34(H) 22 - 32 mmol/L [facility] Anion gap 9 2 - 15 mmol/L [facility] BUN 10 6 - 25 mg/dL [facility] Creatinine 0.77(L) 0.80 - 1.30 mg/dL [facility] Glucose 133 70 - 199 mg/dL [facility] Comment: Interpretive Data Fasting glucose [...] 2022. Calcium 9.7 8.5 - 10.3 mg/dL [facility] Blood 08/15/2024 9:17 PM CDT 08/15/2024 9:48 PM CDT Wenceslao Reina MD LAB BLOOD ORDERABLES Final R esult [facility] [place] [address] * POCT glucose (08/15/2024 9:16 PM CDT) Glucose, POC 143 70 - 199 mg/dL Blood 08/15/2024 9:16 PM CDT 08/15/2024 9:16 PM CDT Wenceslao Reina MD LAB POCT ORDERABLES - DEVICE Final Result Performing Organization Address [facility] [place] Co de Phone Number [facility] [place] [address] * POCT glucose (08/15/2024 6:29 PM CDT) Glucose, POC 138 70 - 199 mg/dL Blood 08/15/2024 6:29 PM CDT 08/15/2024 6:29 PM CDT Wenceslao Reina MD LAB POCT ORDERABLES - DEVICE Final Result Performing Organization Address [facility] [place] [address] * POCT glucose (08/15/2024 5:17 PM CDT) Glucose, POC 198 70 - 199 mg/dL Blood 08/15/2024 5:17 PM CDT 08/15/2024 5:17 PM CDT us Wenceslao Reina MD LAB POCT ORDERABLES - DEVICE Final Result Performing Organization Address [facility] [place] Co de Phone Number [facility] [place] [address] * POCT glucose (08/15/2024 4:21 PM CDT) Glucose, POC 170 70 - 199 mg/dL Blood 08/15/2024 4:21 PM CDT 08/15/2024 4:21 PM CDT us Wenceslao Reina MD LAB POCT ORDERABLES - DEVICE Final Result Performing Organization Address [facility] [place] Co de Phone Number [facility] [place] [address] * Oxyhemoglobin, central venous (08/15/2024 3:22 PM CDT) Oxyhemoglobin, CV 70.4 % Comment: Interpretive Data No reference range established. Current interpretive data was last revised 2019. Blood 08/15/2024 3:22 PM CDT 08/15/2024 3:28 PM CDT us Wenceslao Reina MD LAB BLOOD ORDERABLES Final R esult [facility] [place] [address] * (ABNORMAL) Hemoglobin total, pulmonary artery (08/15/2024 3:22 PM CDT) Pathologist [facility] Hemoglobin total, [place] 10.6(L) 13.0 - 17.5 g/dL Blood 08/15/2024 3:22 PM CDT 08/15/2024 3:36 PM CDT us Wenceslao Reina MD LAB BLOOD ORDERABLES Final R esult [facility] [place] [address] * eGFR (08/15/2024 3:22 PM CDT) eGFR [...] LAB BLOOD ORDERABLES Final R esult [facility] [place] [address] * (ABNORMAL) Pro B-type natriuretic peptide (08/15/2024 [...] ORDERABLES Final R esult Performing Organization Address [place]/[facility] Co de Phone Number [facility] [place] [address] * Lactate, whole blood (08/15/2024 3:22 PM CDT) Lactate, bld 1.2 0.7 - 2.0 mmol/L Blood 08/15/2024 3:22 PM CDT 08/15/2024 3:28 PM CDT us Wenceslao Reina MD LAB BLOOD ORDERABLES Final R esult Performing Organization Address [facility] [place] Co de Phone Number [facility] [place] [address] * Phosphorus (08/15/2024 3:22 PM CDT) Phosphorus, pl 3.0 2.3 - 4.5 mg/dL Comment:Reviewed Blood 08/15/2024 3:22 PM CDT 08/15/2024 3:44 PM CDT us Wenceslao Reina MD LAB BLOOD ORDERABLES Final R esult Performing Organization Address [facility] [place] Co de Phone Number [facility] [place] [address] * Magnesium (08/15/2024 3:22 PM CDT) Magnesium 2.3 1.4 - 2.5 mg/dL Blood 08/15/2024 3:22 PM CDT 08/15/2024 3:44 PM CDT Wenceslao Reina MD LAB BLOOD ORDERABLES Final R esult [facility] [place] [address] * (ABNORMAL) Basic metabolic panel (08/15/2024 3:22 PM CDT) Sodium 133(L) 135 - 145 mmol/L Potassium, pl 4.1 3.3 - 4.9 mmol/L [facility] Chloride 89(L) 97 - 110 mmol/L [facility] CO2 33(H) 22 - 32 mmol/L [facility] Anion gap 11 2 - 15 mmol/L [facility] BUN 14 6 - 25 mg/dL [facility] Creatinine 0.93 0.80 - 1.30 mg/dL [facility] Glucose 145 70 - 199 mg/dL [facility] Comment: Interpretive Data Fasting glucose [...] 2022. Calcium 10.1 8.5 - 10.3 mg/dL [facility] Blood 08/15/2024 3:22 PM CDT 08/15/2024 3:44 PM CDT Wenceslao Reina MD LAB BLOOD ORDERABLES Final R esult Performing Organization Address [place]/[facility]/ZIP Co de Phone Number [facility] [place] [address] * POCT glucose (08/15/2024 3:20 PM CDT) Glucose, POC 146 70 - 199 mg/dL Blood 08/15/2024 3:20 PM CDT 08/15/2024 3:20 PM CDT Wenceslao Reina MD LAB POCT ORDERABLES - DEVICE Final Result Performing Organization Address [facility] [place] [place] [address] * POCT glucose (08/15/2024 2:40 PM CDT) Glucose, POC 93 70 - 199 mg/dL Blood 08/15/2024 2:40 PM CDT 08/15/2024 2:40 PM CDT Wenceslao Reina MD LAB POCT ORDERABLES - DEVICE Final Result Performing Organization Address [facility] [place] [place] [address] * XR Chest 1 View (08/15/2024 2:40 PM CDT) Anatomical Region Laterality Modality Body, Chest N/A Computed Radiogr aphy 08/16/2024 9:53 AM CDT Impressions 08/16/2024 9:53 AM CDT 1. No prior examination available for comparison. A right peripherally inserted central venous catheter tip is in the right atrium. [place] catheter tip overlies the main pulmonary artery. There is no pneumonic consolidation or pneumothorax. 2. Comparison is made to prior examination from the same date. The [place] catheter tip is now located in the [...] catheter tip is in the right atrium. [place] catheter tip overlies the main pulmonary artery. There is no pneumonic consolidation or pneumothorax. 2. Comparison is made to prior examination from the same date. The [place] catheter tip is now located in the [...] LAB POCT ORDERABLES - DEVICE Final Result [facility] [place] [address] * (ABNORMAL) Blood gas, arterial (08/15/2024 1:51 PM CDT) pH, Art 7.48(H) 7.35 - 7.45 PCO2, Arterial 47(H) 35 - 45 mmHg [facility] PO2, Arterial 89 83 - 108 mmHg [facility] HCO3 Art (Calculated) 35(H) 20 - 30 mmol/L [facility] BE, art 10 mmol/L [facility] Comment: Interpretive Data No Reference Range Established Current Interpretive Data was last revised on 2017 O2 Sat Art (Measured) 97(H) 90 - 95 % [facility] Blood 08/15/2024 1:51 PM CDT 08/15/2024 1:58 PM CDT us Wenceslao Reina MD LAB BLOOD ORDERABLES Final R esult Performing Organization Address City/[facility]/ZIP Co de Phone Number [facility] [place] [address] * POCT glucose (08/15/2024 1:03 PM CDT) Glucose, POC 124 70 - 199 mg/dL Blood 08/15/2024 1:03 PM CDT 08/15/2024 1:03 PM CDT Wenceslao Reina MD LAB POCT ORDERABLES - DEVICE Final Result Performing Organization Address [facility] [place] Co de Phone Number CORONA BOB Shanell [facility] [place] [address] * XR Abdomen Ap 1 Vw (08/15/2024 [...] catheter tip is in the right atrium. [place] catheter tip overlies the main pulmonary artery. There is no pneumonic consolidation or pneumothorax. 2. Comparison is made to prior examination from the same date. The [place] catheter tip is now located in the [...] catheter tip is in the right atrium. [place] catheter tip overlies the main pulmonary artery. There is no pneumonic consolidation or pneumothorax. 2. Comparison is made to prior examination from the same date. The [place] catheter tip is now located in the [...] 2019. Trop I hs delta 54(C) ng/L [facility] Comment:Previous critical va lue noted within 48 hours ago. Trop I hs interp Significa nt(C) [facility] Comment:Previous critical va lue noted within 48 hours ago. Blood 08/15/2024 12:3 2 PM CDT 08/15/2024 12:45 PM CDT Wenceslao Reina MD LAB BLOOD ORDERABLES Final R esult Performing Organization Address [facility] [place]/[facility] Co de Phone Number [facility] [place] [address] * Oxyhemoglobin, pulmonary artery (08/15/2024 12:32 PM CDT) Pathologist [facility] [place] Oxyhemoglobin, PA 72.8 % Comment: Interpretive Data No reference range established. Current interpretive data was last revised 2019. Blood 08/15/2024 12:3 2 PM CDT 08/15/2024 12:44 PM CDT Wenceslao Reina MD LAB BLOOD ORDERABLES Final R esult [facility] [place] [address] * (ABNORMAL) Hemoglobin total, pulmonary artery (08/15/2024 12:32 PM CDT) Hemoglobin total, PA 10.4(L) 13.0 - 17.5 g/dL Blood 08/15/2024 12:3 2 PM CDT 08/15/2024 12:44 PM CDT us Jose J Tolbert MD LAB BLOOD ORDERABLES Final Result Performing Organization Address [facility] [place] Co de Phone [facility] [place] [address] * eGFR (08/15/2024 12:32 PM CDT) eGFR [...] ORDERABLES Final R esult Performing Organization Address City/[facility]/ZIP Co de Phone Number [facility] [place] [address] * (ABNORMAL) Calcium, ionized (08/15/2024 12:32 PM CDT) Calcium, Ionized 5.14(H) 4.50 - 5.10 mg/dL Blood 08/15/2024 12:3 2 PM CDT 08/15/2024 12:55 PM CDT Wenceslao Reina MD LAB BLOOD ORDERABLES Final R esult [facility] [place] [address] * (ABNORMAL) Phosphorus (08/15/2024 12:32 PM CDT) Pathologist [facility] [place] Phosphorus, pl 0.9(L) 2.3 - 4.5 mg/dL Blood 08/15/2024 12:3 2 PM CDT 08/15/2024 12:45 PM CDT us Wenceslao Reina MD LAB BLOOD ORDERABLES Final R esult Performing Organization Address City/[facility] Co de Phone Number [facility] [place] [address] * Magnesium (08/15/2024 12:32 PM CDT) [facility] Magnesium 2.4 1.4 - 2.5 mg/dL Blood 08/15/2024 12:3 2 PM CDT 08/15/2024 12:45 PM CDT Wenceslao Reina MD LAB BLOOD ORDERABLES Final R esult Performing Organization Address City/[facility] Co de Phone Number [facility] [place] [address] * (ABNORMAL) Basic metabolic panel (08/15/2024 12:32 PM CDT) Pathologist [facility] [place] Sodium 133(L) 135 - 145 mmol/L Potassium, pl 4.2 3.3 - 4.9 mmol/L [facility] Chloride 90(L) 97 - 110 mmol/L [facility] CO2 33(H) 22 - 32 mmol/L [facility] Comment:Reviewed Anion gap 10 2 - 15 mmol/L [facility] Comment:Reviewed BUN 15 6 - 25 mg/dL [facility] Creatinine 0.97 0.80 - 1.30 mg/dL [facility] Glucose 144 70 - 199 mg/dL [facility] Comment: Interpretive Data Fasting glucose [...] 2022. Calcium 10.5(H) 8.5 - 10.3 mg/dL [facility] Blood 08/15/2024 12:3 2 PM CDT 08/15/2024 12:45 PM CDT us Wenceslao Reina MD LAB BLOOD ORDERABLES Final R esult Performing Organization Address City/[facility]/ZIP Co de Phone Number [facility] [place] [address] * POCT glucose (08/15/2024 11:57 AM CDT) Glucose, POC 165 70 - 199 mg/dL Blood 08/15/2024 11:5 7 AM CDT 08/15/2024 11:57 AM CDT Wenceslao Reina MD LAB POCT ORDERABLES - DEVICE Final Result Performing Organization Address City/[facility]/ZIP Co de Phone Number [facility] [place] [address] * (ABNORMAL) Troponin I high-sensitivity 4-hour (08/15/2024 10:58 AM CDT) Trop I hs 76(H) <=35 ng/L Comment: Previous critical value noted within 48 hours ago. Interpretive Data For further hscTnI resources including the diagnostic algorithm and an aid in interpretation, copy and paste this link: https://bjhlab.testcatalog.org/show/hsTrop-1 Current Interpretive Data last revised 2019. Trop I hs delta 25(C) ng/L [facility] Comment:Previous critical va lue noted within 48 hours ago. Trop I hs interp Significa nt(C) [facility] Comment:Previous critical va lue noted within 48 hours ago. Blood 08/15/2024 10:5 8 AM CDT 08/15/2024 11:06 AM CDT us Wenceslao Reina MD LAB BLOOD ORDERABLES Final R esult Performing Organization Address [facility] [place] Co de Phone Number [facility] [place] [address] * Oxyhemoglobin, central venous (08/15/2024 10:58 AM CDT) Oxyhemoglobin, CV 71.6 % Comment: Interpretive Data No reference range established. Current interpretive data was last revised 2019. Blood 08/15/2024 10:5 8 AM CDT 08/15/2024 11:06 AM CDT us Wenceslao Reina MD LAB BLOOD ORDERABLES Final R esult Performing Organization Address [facility] [place]/[facility] Co de Phone Number [facility] [place] [address] * (ABNORMAL) Hemoglobin total, pulmonary artery (08/15/2024 10:58 AM CDT) Hemoglobin total, PA 9.8(L) 13.0 - 17.5 g/dL Blood 08/15/2024 10:5 8 AM CDT 08/15/2024 11:06 AM CDT us Wenceslao Reina MD LAB BLOOD ORDERABLES Final R esult Performing Organization Address [facility] [place] Co de Phone Number [facility] [place] [address] * Lactate, whole blood (08/15/2024 10:58 AM CDT) Lactate, bld 1.8 0.7 - 2.0 mmol/L Blood 08/15/2024 10:5 8 AM CDT 08/15/2024 11:06 AM CDT us Wenceslao Reina MD LAB BLOOD ORDERABLES Final R esult Performing Organization Address [facility] de Phone Number [facility] [place] [address] * POCT glucose (08/15/2024 10:51 AM CDT) Glucose, POC 165 70 - 199 mg/dL Blood 08/15/2024 10:5 1 AM CDT 08/15/2024 10:51 AM CDT us Wenceslao Reina MD LAB POCT ORDERABLES - DEVICE Final Result Performing Organization Address [facility] [place] Co de Phone Number [facility] [place] [address] * CT INSJ NON-TUNNELED CENTRAL VENOUS CATH AGE 5 YR/> (08/15/2024 9:58 AM CDT) Narrative Wenceslao Reina MD - 08/15/2024 9:58 AM CDT Wenceslao Reina MD 08/15/2024 3:12 PM Central Line Insertion- [facility] Date/Time: 08/15/2024 9:58 AM Performed by: Ngozi Tamez MD Authorized by: Wenceslao Reina MD [place] Protocol: RN Notified of Procedure: yes Patient [...] Ultrasound guidance: Real-time needle guidance Procedural supplies: [facility]. Needle inserted, vein idenitified then guidewire inserted easily into vein: Yes Successful placement: Yes Patient tolerance: Patient tolerated the procedure well with no immediate complications us Wenceslao Reina MD IN CLINIC/BEDSIDE ORDERABLES Final Result * (ABNORMAL) POC Blood Gas and Chemistries, Arterial - (08/15/2024 9:57 AM CDT) pH, Art POC 7.36 7.35 - 7.45 pCO2, Art POC 25(L) 35 - 45 mmHg [facility] pO2, Art POC 83 83 - 108 mmHg [facility] Na, POC 130(L) 135 - 145 mmol/L [facility] K POC 4.6 3.3 - 4.9 mmol/L [facility] Comment: Interpretive Data Not all point of care methods assess for hemolysis. Confirm with instrument and retest K+ if not consistent with clinical signs and symptoms. Current Interpretive Data was last revised on 2023. Cl, POC 93(L) 97 - 110 mmol/L [facility] Ionized Ca, POC 6.02(H) 4.50 - 5.10 mg/dL [facility] Glucose, POC 253(H) 70 - 199 mg/dL [facility] Lactate, POC 2.4(H) 0.7 - 2.0 mmol/L [facility] SO2 (fabiana) arterial 98(H) 90 - 95 % [facility] Base excess, POC -10.0 mmol/L [facility] HCO3, Art POC 14(L) 20 - 30 mmol/L [facility] Hct, POC 29.0(L) 41.4 - 51.6 % [facility] Total Hb, POC 9.7(L) 13.8 - 17.2 g/dL [facility] Blood 08/15/2024 9:57 AM CDT 08/15/2024 9:57 AM CDT Wenceslao Reina MD LAB POCT ORDERABLES - DEVICE Final Result Performing Organization Address [facility] [place]/[facility] Co de Phone Number [facility] [place] [address] * (ABNORMAL) Urinalysis reflex to microscopic and culture Urine (08/15/2024 9:56 AM CDT) Color, ur Straw Yellow Clarity, ur Clear Clear [facility] Specific gravity, ur 1.008 1.003 - 1.030 [facility] pH, urine 6.0 [facility] Comment: Interpretive Data U rine pH is affected by diet, medications, systemic acid-base disturbances, and renal tubular function. pH may affect urinary stone formation. For example, urine pH below 6.0 may help reduce the tendency for calcium phosphate stones and pH greater than 6.0 may reduce the tendency for uric acid stone formation. Source: [facility] Current Interpretive Data was last revised on 2017 Protein, ur ql Negative Negative [facility] Glucose, ur ql 3+(A) Negative [facility] Ketones, ur 1+(A) Negative [facility] Bilirubin, ur Negative Negative [facility] Blood, ur 2+(A) Negative [facility] Urobilinogen, ur <2.0 <2.0 mg/dL [facility] Nitrite, ur Negative Negative [facility] Leukocyte esterase, ur Negative Negative [facility] UA reflex comment Reflex to microscopic UA will be performed. [facility] Urine 08/15/2024 9:56 AM CDT 08/15/2024 10:15 AM CDT Wenceslao Reina MD LAB MICROBIOLOGY - GENERAL O RDERABLES Final Result Performing Organization Address [facility] [place]/[facility]/ZIP Co de Phone Number [facility] [place] [address] * (ABNORMAL) Urinalysis, microscopic only (08/15/2024 9:56 AM CDT) WBC, ur 0-5 0 - 5 /HPF RBC, ur 0-2 0 - 2 /HPF [facility] Epithelial cells, squamous, ur 1-5 0 - 5 /HPF [facility] Bacteria, ur Trace(A) [facility] Mucous, ur Present(A) [facility] Culture Reflex Comment Reflex conditions for urine culture (WBC >10) not met. [facility] Urine 08/15/2024 9:56 AM CDT 08/15/2024 10:15 AM CDT us Wenceslao Reina MD LAB URINE ORDERABLES Final R esult [facility] [place] [address] * CT ARTL CATHJ/CANNULJ MNTR/TRANSFUSION SPX PRQ (08/15/2024 9:53 AM CDT) Narrative Wenceslao Reina MD - 08/15/2024 9:53 AM CDT Wenceslao Reina MD 08/15/2024 3:12 PM Arterial Line Insertion Date/Time: 08/15/2024 9:53 AM Performed by: Ngozi Tamez MD Authorized by: Wenceslao Reina MD [place] Protocol: RN Notified of Procedure: yes Informed [...] - DEVICE Final Result Performing Organization Address [facility] [place]/[facility] Co de Phone Number [facility] [place] [address] * eGFR (08/15/2024 8:38 AM CDT) eGFR [...] ORDERABLES F inal Result Performing Organization Address City/[facility]/ZIP Co de Phone Number [facility] [place] [address] * Critical Result Callback Chemistry (08/15/2024 8:38 AM CDT) Date Notified 20240815 Time Notified 09 [facility] TestName Anion Gap [facility] Called/Read Back Beth German [facility] Credentials RN [facility] Called By [facility] Blood 08/15/2024 8:38 AM CDT 08/15/2024 8:57 AM CDT us Kayleigh Avila MD LAB BLOOD ORDERABLES F inal Result [facility] [place] [address] * (ABNORMAL) Comprehensive metabolic panel (08/15/2024 8:38 AM CDT) Sodium 132(L) 135 - 145 mmol/L Potassium, pl 4.6 3.3 - 4.9 mmol/L [facility] Chloride 89(L) 97 - 110 mmol/L [facility] CO2 14(L) 22 - 32 mmol/L [facility] Anion gap 29(C) 2 - 15 mmol/L [facility] Comment:Reviewed BUN 19 6 - 25 mg/dL [facility] Creatinine 1.25 0.80 - 1.30 mg/dL [facility] Glucose 266(H) 70 - 199 mg/dL [facility] Comment: Interpretive Data Fasting glucose [...] 2022. Calcium 10.8(H) 8.5 - 10.3 mg/dL [facility] Comment:Repeated and Verifie d Bilirubin, total 0.4 0.1 - 1.2 mg/dL [facility] Protein, pl 5.8(L) 6.5 - 8.5 g/dL [facility] Albumin 3.8 3.5 - 5.0 g/dL [facility] Alk phos 59 40 - 130 Units/L [facility] ALT 49 7 - 55 Units/L [facility] AST 94(H) 10 - 50 Units/L [facility] Blood 08/15/2024 8:38 AM CDT 08/15/2024 8:57 AM CDT Result [facility] Kayleigh Avila MD LAB BLOOD ORDERABLES F inal Result Performing Organization Address [facility] [place]/[facility]/ZIP Co de Phone Number [facility] [place] [address] * (ABNORMAL) Troponin I high-sensitivity 2-hour (08/15/2024 8:29 AM CDT) Trop I hs 66(H) <=35 ng/L Comment: Interpretive Data For further hscTnI resources including the diagnostic algorithm and an aid in interpretation, copy and paste this link: https://bjhlab.testcatalog.org/show/hsTrop-1 Current Interpretive Data last revised 2019. Trop I hs delta 15(C) ng/L [facility] Comment:Reviewed Trop I hs interp Significa nt(C) [facility] Comment:Reviewed Blood 08/15/2024 8:29 AM CDT 08/15/2024 8:57 AM CDT Wenceslao Reina MD LAB BLOOD ORDERABLES Final R esult Performing Organization Address City/[facility]/ZIP Co de Phone Number [facility] [place] [address] * Oxyhemoglobin, central venous (08/15/2024 8:29 AM CDT) Oxyhemoglobin, CV 75.8 % Comment: Interpretive Data No reference range established. Current interpretive data was last revised 2019. Blood 08/15/2024 8:29 AM CDT 08/15/2024 8:47 AM CDT us Wenceslao Reina MD LAB BLOOD ORDERABLES Final R esult Performing Organization Address City/[facility]/ZIP Co de Phone Number [facility] [place] [address] * Critical result callback Cardio chemistry (08/15/2024 8:29 AM CDT) Date Notified 20240815 Time Notified 933 [facility] Test name Trop I hs 2hr delta [place] [facility] Called/Read Back Beth BOB Credentials RN [place] [facility] Called By ra [place] BOB Blood 08/15/2024 8:29 AM CDT 08/15/2024 8:57 AM CDT us Wenceslao Reina MD LAB BLOOD ORDERABLES Final R esult Performing Organization Address City/[facility] Co de Phone Number [facility] [place] [address] * Critical Result Callback Chemistry (08/15/2024 8:29 AM CDT) Date Notified 20240815 Time Notified 857 [facility] TestName Lactate Whole Blood [place] [facility] Called/Read Back Kimmy JETER [facility] Credentials RN [place] [facility] Called By LISA BOB Blood 08/15/2024 8:29 AM CDT 08/15/2024 8:48 AM CDT us Wenceslao Reina MD LAB BLOOD ORDERABLES Final R esult Performing Organization Address City/[facility] Co de Phone Number [facility] [place] [address] * (ABNORMAL) Lactate, whole blood (08/15/2024 8:29 AM CDT) Pathologist [facility] [place] Lactate, bld 4.2(C) 0.7 - 2.0 mmol/L Comment:Reviewed Blood 08/15/2024 8:29 AM CDT 08/15/2024 8:48 AM CDT Wenceslao Reina MD LAB BLOOD ORDERABLES Final R esult Performing Organization Address [facility] [place]/[facility] Co de Phone Number [facility] [place] [address] * (ABNORMAL) Beta-hydroxybutyrate (08/15/2024 7:42 AM CDT) [facility] Beta-Hydroxybut yrate 4.2(H) 0.0 - 0.5 mmol/L Blood 08/15/2024 7:42 AM CDT 08/15/2024 7:48 AM CDT Wenceslao Reina MD LAB BLOOD ORDERABLES Final R esult Performing Organization Address City/[facility] Co de Phone Number [facility] [place] [address] * Blood culture Blood (08/15/2024 7:41 AM CDT) Pathologist [facility] Report Final Report: No growth Blood 08/15/2024 7:41 AM CDT 08/15/2024 8:49 AM CDT Narrative [facility] - 08/19/2024 12:00 PM CDT [...] performance characteristics have been verified by the [facility] Microbiology [facility]. For questions about this culture, contact the Microbiology Laboratory at [phone]. Interpretive data was last revised on 24. us Wenceslao Reina MD LAB MICROBIOLOGY - GENERAL O RDERABLES Final Result [place] B[facility] [place] [address] * Blood culture Blood (08/15/2024 7:41 AM CDT) Report Final Report: No growth Blood 08/15/2024 7:41 AM CDT 08/15/2024 7:52 AM CDT Narrative [facility] - 08/19/2024 12:00 PM CDT Collection->Peripheral 1. [...] performance characteristics have been verified by the [facility] Microbiology [facility]. For questions about this culture, contact the Microbiology Laboratory at [phone]. Interpretive data was last revised on 24. Wenceslao Reina MD LAB MICROBIOLOGY - GENERAL O RDERABLES Final Result [facility] [place] [address] * (ABNORMAL) POC Blood Gas and Chemistries, Arterial - (08/15/2024 7:38 AM CDT) pH, Art POC 7.18(C) 7.35 - 7.45 pCO2, Art POC 26(L) 35 - 45 mmHg [facility] pO2, Art POC 97 83 - 108 mmHg [facility] Na, POC 127(L) 135 - 145 mmol/L [facility] K POC 4.8 3.3 - 4.9 mmol/L [facility] Comment: Interpretive Data Not all point of care methods assess for hemolysis. Confirm with instrument and retest K+ if not consistent with clinical signs and symptoms. Current Interpretive Data was last revised on 2023. Cl, POC 93(L) 97 - 110 mmol/L [facility] Ionized Ca, POC 6.73(H) 4.50 - 5.10 mg/dL [facility] Glucose, POC 301(H) 70 - 199 mg/dL [facility] Lactate, POC 4.2(C) 0.7 - 2.0 mmol/L [facility] SO2 (fabiana) arterial 98(H) 90 - 95 % [facility] Base excess, POC -17.2 mmol/L [facility] HCO3, Art POC 10(C) 20 - 30 mmol/L [facility] Hct, POC 26.0(L) 41.4 - 51.6 % [facility] Total Hb, POC 8.8(L) 13.8 - 17.2 g/dL [facility] Blood 08/15/2024 7:38 AM CDT 08/15/2024 7:38 AM CDT us Wenceslao Reina MD LAB POCT ORDERABLES - DEVICE Final Result Performing Organization Address [facility] Co de Phone Number [facility] [place] [address] * Check Sample (08/15/2024 6:50 AM CDT) ABO Rh A Positive [facility] HCLL OTHER 08/15/2024 6:50 AM CDT 08/15/2024 7:00 AM CDT us Wenceslao Reina MD LAB BLOOD ORDERABLES Final R esult Performing Organization Address [facility] Co de Phone Number [facility] [place] [address] [facility] * (ABNORMAL) Calcium, ionized (08/15/2024 6:50 AM CDT) Calcium, Ionized 3.68(L) 4.50 - 5.10 mg/dL Blood 08/15/2024 6:50 AM CDT 08/15/2024 6:57 AM CDT us Wenceslao Reina MD LAB BLOOD ORDERABLES Final R esult Performing Organization Address [facility] Co de Phone Number [facility] [place] [address] * aPTT (08/15/2024 6:50 AM CDT) aPTT [...] ORDERABLES Final R esult Performing Organization Address [facility] Co de Phone Number [facility] [place] [address] * Protime-INR (08/15/2024 6:50 AM CDT) PT 10.4 9.7 - 13.0 sec INR 0.96 0.90 - 1.20 [facility] Comment: Interpretive data Oral anticoagulant [...] ORDERABLES Final R esult Performing Organization Address [facility] [place] [address] * Type and screen (08/15/2024 6:29 AM CDT) John, indirect Negative ABO Rh A Positive [facility] [facility] Blood 08/15/2024 6:29 AM CDT 08/15/2024 6:44 AM CDT Narrative [facility] - 08/15/2024 7:32 AM CDT Has the patient had Daratumumab or Isatuximab in the past 6 months?->Unknown Wenceslao Reina MD LAB BLOOD BANK TEST ORDERABL ES Final Result Performing Organization Address [facility]/[facility] Co de Phone Number [facility] [place] [address] * (ABNORMAL) Troponin I high-sensitivity series (baseline, [...] MD LAB BLOOD ORDERABLES Final R esult [facility] [place] [address] * eGFR (08/15/2024 6:26 AM CDT) eGFR [...] MD LAB BLOOD ORDERABLES Final R esult [facility] [place] [address] * (ABNORMAL) Differential, auto (08/15/2024 6:26 AM CDT) Neutrophil abs 7.40(H) 1.50 - 6.50 K/cumm Imm gran abs 0.06 0.00 - 0.10 K/cumm [facility] Lymphocyte abs 0.81 0.80 - 3.30 K/cumm [facility] Monocyte abs 1.85(H) 0.20 - 0.80 K/cumm [facility] Eosinophil abs 0.03 0.00 - 0.50 K/cumm [facility] Basophil abs 0.01 0.00 - 0.10 K/cumm [facility] Neutrophil pct 72.8 % [facility] Comment: Interpretive Data Percent cell count reference ranges are not reported, since discordance with absolute values may lead to misinterpretation of CBC data. Current Interpretive Data was last revised on 2017. Imm gran pct 0.6 % [facility] Comment: Interpretive Data Percent cell count reference ranges are not reported, since discordance with absolute values may lead to misinterpretation of CBC data. Current Interpretive Data was last revised on 2017. Lymphocyte pct 8.0 % [facility] Comment: Interpretive Data Percent cell count reference ranges are not reported, since discordance with absolute values may lead to misinterpretation of CBC data. Current Interpretive Data was last revised on 2017. Monocyte pct 18.2 % [facility] Comment: Interpretive Data Percent cell count reference ranges are not reported, since discordance with absolute values may lead to misinterpretation of CBC data. Current Interpretive Data was last revised on 2017. Eosinophil pct 0.3 % [facility] Comment: Interpretive Data Percent cell count reference ranges are not reported, since discordance with absolute values may lead to misinterpretation of CBC data. Current Interpretive Data was last revised on 2017. Basophil pct 0.1 % [facility] Comment: Interpretive Data Percent cell count reference ranges are not reported, since discordance with absolute values may lead to misinterpretation of CBC data. Current Interpretive Data was last revised on 2017. Blood 08/15/2024 6:26 AM CDT 08/15/2024 6:49 AM CDT us Wenceslao Reina MD LAB BLOOD ORDERABLES Final R esult Performing Organization Address City/[facility]/ZIP Co de Phone Number [facility] [place] [address] * Critical Result Callback Chemistry (08/15/2024 6:26 AM CDT) Date Notified 20240815 Time Notified 901 [facility] TestName Calcium, Anion Gap, CO2 Totl [facility] Called/Read Back Wenceslao JETER [facility] Credentials RN [facility] Called By ra JETER [facility] Blood 08/15/2024 6:26 AM CDT 08/15/2024 6:40 AM CDT us Wenceslao Reina MD LAB BLOOD ORDERABLES Final R esult Performing Organization Address [facility] Co de Phone Number [facility] [place] [address] * Critical Result Callback Chemistry (08/15/2024 6:26 AM CDT) Date Notified 20240815 Time Notified 720 [facility] TestName Lactate Whole Blood, pH Robbin, HCO3 Robbin (Calc) [facility] Called/Read Back Hiral Regan [facility] Credentials RN [facility] Called By LISA JETER [facility] Blood 08/15/2024 6:26 AM CDT 08/15/2024 6:40 AM CDT us Wenceslao Reina MD LAB BLOOD ORDERABLES Final R esult Performing Organization Address City/[facility]/ZIP Co de Phone Number [facility] [place] [address] * (ABNORMAL) CBC with auto differential (08/15/2024 6:26 AM CDT) [facility] WBC 10.16(H) 3.80 - 9.90 K/cumm Hgb 8.5(L) 13.0 - 17.5 g/dL [facility] Hct 26.2(L) 38.9 - 50.3 % [facility] Plt 240 150 - 400 K/cumm [facility] MPV 9.2 9.1 - 12.3 fL [facility] RBC 2.89(L) 4.30 - 5.80 M/cumm [facility] MCV 90.7 81.3 - 96.4 fL [facility] MCH 29.4 27.1 - 33.3 pg [facility] MCHC 32.4 32.3 - 35.7 g/dL [facility] RDW CV 15.4(H) 11.1 - 14.9 % [facility] RDW SD 51.3(H) 35.7 - 48.1 fL [facility] NRBC abs 0.00 0.00 - 0.01 K/cumm [facility] Blood 08/15/2024 6:26 AM CDT 08/15/2024 6:49 AM CDT Wenceslao Reina MD LAB BLOOD ORDERABLES Final R esult [facility] [place] [address] * (ABNORMAL) Lactate, whole blood (08/15/2024 6:26 AM CDT) [facility] Lactate, bld 4.6(C) 0.7 - 2.0 mmol/L Comment:Repeated and verifie d. Blood 08/15/2024 6:26 AM CDT 08/15/2024 6:40 AM CDT us Wenceslao Reina MD LAB BLOOD ORDERABLES Final R esult Performing Organization Address [facility] de Phone Number [facility] [place] [address] * (ABNORMAL) TSH (08/15/2024 6:26 AM CDT) Thyroid Stimulating Hormone 0.05(L) 0.30 - 4.20 mcIUnit/mL Blood 08/15/2024 6:26 AM CDT 08/15/2024 6:40 AM CDT us Wenceslao Reina MD LAB BLOOD ORDERABLES Final R esult Performing Organization Address [facility] de Phone Number [facility] [place] [address] * Phosphorus (08/15/2024 6:26 AM CDT) Phosphorus, pl 2.4 2.3 - 4.5 mg/dL Comment:Repeated and verifie d. Blood 08/15/2024 6:26 AM CDT 08/15/2024 6:40 AM CDT us Wenceslao Reina MD LAB BLOOD ORDERABLES Final R esult Performing Organization Address [facility] Co de Phone Number [facility] [place] [address] * Magnesium (08/15/2024 6:26 AM CDT) Magnesium 1.7 1.4 - 2.5 mg/dL Comment:Repeated and verifie d. Blood 08/15/2024 6:26 AM CDT 08/15/2024 6:40 AM CDT us Wenceslao Reina MD LAB BLOOD ORDERABLES Final R esult Performing Organization Address City/[facility] Co de Phone Number [facility] [place] [address] * Lipase (08/15/2024 6:26 AM CDT) [facility] Lipase 38 10 - 99 Units/L Blood 08/15/2024 6:26 AM CDT 08/15/2024 6:40 AM CDT Wenceslao Reina MD LAB BLOOD ORDERABLES Final R esult Performing Organization Address [facility] [place] [address] * (ABNORMAL) Hemoglobin A1c (08/15/2024 6:26 AM CDT) [facility] Hgb A1C 5.9(H) 4.0 - 5.6 % Estimated Average Glucose 123 mg/dL [facility] Comment: The ADA recommends reporting [...] ORDERABLES Final R esult Performing Organization Address [facility] Co de Phone Number [facility] [place] [address] * (ABNORMAL) Blood gas, venous (08/15/2024 6:26 AM CDT) [facility] pH, Venous 7.18(C) 7.32 - 7.43 Comment:Repeated and verifie d. PCO2, Venous 23(L) 40 - 50 mmHg [facility] Comment:Repeated and verifie d. PO2, Venous 63 mmHg [facility] Comment: Repeated and verified. Interpretive Data No Reference Range Established Current Interpretive Data was last revised on 2017. HCO3 Venous, Calculated 9(C) 20 - 30 mmol/L [facility] Comment:Repeated and verifie d. BE, venous -19 mmol/L [facility] Comment: Repeated and verified. Interpretive Data No Reference Range Established Current Interpretive Data was last revised on 2017. Blood 08/15/2024 6:26 AM CDT 08/15/2024 6:40 AM CDT Wenceslao Reina MD LAB BLOOD ORDERABLES Final R esult Performing Organization Address [facility] de Phone Number [facility] [place] [address] * (ABNORMAL) Ethanol (08/15/2024 6:26 AM CDT) Pathologist [facility] Ethanol 100(H) <=10 mg/dL Comment: Repeated and verified. Interpretive Data Legal limit of intoxication > or = 80 mg/dL Levels > or = 400 mg/dL are potentially TOXIC. Current interpretive data was last revised on 2018. Blood 08/15/2024 6:26 AM CDT 08/15/2024 6:40 AM CDT us Wenceslao Reina MD LAB BLOOD ORDERABLES Final R esult Performing Organization Address [facility] de Phone Number [facility] [place] [address] * (ABNORMAL) Comprehensive metabolic panel (08/15/2024 6:26 AM CDT) Sodium 130(L) 135 - 145 mmol/L Comment:Repeated and verifie d. Potassium, pl 4.9 3.3 - 4.9 mmol/L [facility] Comment:Repeated and verifie d. Chloride 85(L) 97 - 110 mmol/L [facility] Comment:Repeated and verifie d. CO2 10(C) 22 - 32 mmol/L [facility] Comment:Repeated and verifie d. Anion gap 35(C) 2 - 15 mmol/L [facility] Comment:Repeated and verifie d. BUN 19 6 - 25 mg/dL [facility] Comment:Repeated and verifie d. Creatinine 1.35(H) 0.80 - 1.30 mg/dL [facility] Comment:Repeated and verifie d. Glucose 319(H) 70 - 199 mg/dL [facility] Comment: Repeated and verified. Interpretive [...] 2022. Calcium 6.1(C) 8.5 - 10.3 mg/dL [facility] Comment:Repeated and verifie d. Bilirubin, total 0.4 0.1 - 1.2 mg/dL [facility] Comment:Repeated and verifie d. Protein, pl 5.4(L) 6.5 - 8.5 g/dL [facility] Comment:Repeated and verifie d. Albumin 3.6 3.5 - 5.0 g/dL [facility] Comment:Repeated and verifie d. Alk phos 55 40 - 130 Units/L [facility] Comment:Repeated and verifie d. ALT 45 7 - 55 Units/L [facility] Comment:Repeated and verifie d. AST 91(H) 10 - 50 Units/L [facility] Comment:Repeated and verifie d. Blood 08/15/2024 6:26 AM CDT 08/15/2024 6:40 AM CDT Wenceslao Reina MD LAB BLOOD ORDERABLES Final R esult [facility] [place] [address] * (ABNORMAL) POC Blood Gas and Chemistries, Venous - (08/15/2024 6:21 AM CDT) pH, Robbin POC 7.14(C) 7.32 - 7.43 pCO2, robbin POC 24(L) 40 - 50 mmHg [facility] pO2, robbin POC 51 mmHg [facility] Na, POC 126(L) 135 - 145 mmol/L [facility] K POC 5.7(H) 3.3 - 4.9 mmol/L [facility] Comment: Interpretive Data Not all point of care methods assess for hemolysis. Confirm with instrument and retest K+ if not consistent with clinical signs and symptoms. Current Interpretive Data was last revised on 2023. Cl, POC 89(L) 97 - 110 mmol/L [facility] Ionized Ca, POC 3.48(L) 4.50 - 5.10 mg/dL [facility] Glucose, POC 338(H) 70 - 199 mg/dL [facility] Lactate, POC 4.8(C) 0.7 - 2.0 mmol/L [facility] O2 Sat, Robbin POC (Fabiana) 84 % [facility] Base excess, POC -19.2 mmol/L [facility] HCO3, Robbin POC 8(C) 20 - 30 mmol/L [facility] Hct, POC 27.0(L) 41.4 - 51.6 % [facility] Total Hb, POC 8.9(L) 13.8 - 17.2 g/dL [facility] Blood 08/15/2024 6:21 AM CDT 08/15/2024 6:21 AM CDT Wenceslao Reina MD LAB POCT ORDERABLES - DEVICE Final Result [facility] [place] [address] * Cardiology Document Scan (07/31/2024 4:46 PM [...] >90 EXTERNAL LAB SCRIBED eGFR in NonAfrican Mauritanian >90 >90 EXTERNAL LAB Blood 07/22/2024 2:15 PM CDT Erich Infante MD LAB BLOOD ORDERABLES Fi nal Result EXTERNAL LAB * B-type natriuretic peptide (06/24/2024) SCRIBED BNP 238 <125 pg/mL [facility] Blood 06/24/2024 Erich Infante MD LAB BLOOD ORDERABLES Fi nal Result [facility] * (ABNORMAL) Comprehensive metabolic panel (06/24/2024) Pathologist [facility] SCRIBED Sodium 139 136 - 145 mmol/L [facility] SCRIBED Potassium 3.6 3.5 - 5.1 mmol/L [facility] SCRIBED Chloride 96(A) 100 - 108 mmol/L [facility] SCRIBED Carbon Dioxide 33.3(A) 21 - 32 mmol/L [facility] SCRIBED Anion Gap 9.7 5 - 15 mmol/L [facility] SCRIBED Urea Nitrogen (BUN) 21(A) 7 - 18 mg/dl [facility] SCRIBED Creatinine 0.90 0.7 - 1.3 mg/dl [facility] SCRIBED Glucose 151(A) 70 - 99 mg/dl [facility] Calcium 9.4 8.5 - 10.1 mg/dl [facility] Bilirubin 0.9 0.2 - 1.2 mg/dl [facility] Plasma Protein 6.8 6.4 - 8.2 g/dl [facility] Albumin 4.1 3.4 - 5.0 g/dl [facility] Alkaline Phosphatase 76 50 - 136 Units/L [facility] Alanine Transaminase (ALT) 58 16 - 60 Units/L [facility] Aspartate Transaminase (AST) 78(A) 15 - 37 Units/L [facility] eGFR in NonAfrican Mauritanian >90 >90 [facility] Alb/glob ratio 1.5 1.0 - 2.0 [facility] BUN_Creat Ratio 23.3 6 - 26 [facility] Blood 06/24/2024 us Erich Infante MD LAB BLOOD ORDERABLES Fi nal Result 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 Cardiac Diagnostic Lab [address], [address] [place] [address] Transthoracic Echocardiographic Report Patient Name: SOPHIA HANNA ST : 1990 (34y 2m) Gender: M Study Date: 06/23/2024 08:59:08 AM Ht(Inch): 72 Wt(Lb): 149.91 BSA: 1.86 Labour Market Economist: Joanna Mcfarlane RDCS Location: [facility] Order Provider: ARELISERICH Heart Rate: 111 BMI: [...] index. Previously Signed by:Jaciel 06/23/2024 1:31:45 PM [employer] and Cong Nix M.D. 06/23/2024 1:31:45 PM [employer] End of Addendum PROCEDURES: Echocardiographic Report: ([id number], [id number]) Transthoracic complete echo with strain imaging and [...] By: Cong Nix M.D. 06/23/2024 1:31:45 PM [employer] Electronically Signed By: Cong Nix M.D. 06/23/2024 1:31:45 PM [employer] Electronically Amended By: Cong Nix M.D. 07/20/2024 1:51:15 PM CDT [ADDENDUM] Procedure Note Cong Nix MD - 07/20/2024 [facility] Cardiac Diagnostic Lab [address] , [address] [place] [address] Transthoracic Echocardiographic Report Patient Name: SOPHIA HANNA ST : 1990 (34y 2m) Gender: M Study Date: 06/23/2024 08:59:08 AM Ht(Inch): 72 Wt(Lb): 149.91 BSA: 1.86 Labour Market Economist: Joanna Mcfarlane RDCS Location: [facility] Order Provider:ERICH INFANTE Heart Rate: 111 BMI: [...] index. Previously Signed by:SignedForBoth 06/23/2024 1:31:45 PM [employer] and Cong Nix M.D. 06/23/2024 1:31:45 PM [employer] End of Addendum PROCEDURES: Echocardiographic Report: ([id number], [id number]) Transthoracic complete echo withstrain imaging and contrast, [...] LA Length 2C 5.59 cm MV Decel Uzoi950.26 msec [ 104.00 - 258.00 ] LA [...] By: Cong Nix M.D. 06/23/2024 1:31:45 PM [employer] Electronically Signed By: Cong Nix M.D. 06/23/2024 1:31:45 PM [employer] Electronically Amended By: Cong Nix M.D. 07/20/2024 1:51:15 PM CDT [ADDENDUM] Erich Infante MD CV ECHO PROCEDURES Edit ed Result - Final * POCT lipid panel (04/16/2024 3:29 PM [employer]) Cholesterol, POC 170 mg/dL HDL, POC 76 mg/dL Triglycerides, POC 112 mg/dL LDL Cholesterol POC 71 mg/dL Chol/HDL Ratio, POC 2.2 Non-HDL Cholesterol, POC 93 mg/dL Cholesterol Total, POC 170 mg/dL Capillary blood 04/16/2024 3 :29 PM [employer]PER[employer] us Tony Mcelroy MD POINT OF CARE TEST ORDERABLES Fi nal Result from Last 3 Months or Most Recently Relevant to Health Maintenance Insurance [facility] Member Subscriber Plan / Payer (Ef fective 2023-Present) Name:Sophia Hanna Relation to Subscriber:Self Name:Sophia Hanna Payer ID:[id number] (NAIC) Type:[facility] Address: [address] [place] [address] [employer] Member Subscriber Plan / Payer ( fective 2023-Present) Name:Sophia Hanna Relation to Subscriber:Self Name:Sophia Hanna Payer ID:[id number] (NA) Type:[facility] Address: [place] [address] [employer] Member Subscriber Plan / Payer ( fective 2023-Present) Name:Sophia Hanna Relation to Subscriber:Self Name:Sophia Hanna Payer ID:[id number] (NAIC) Type:[facility] Address: [address] [place] [address] Advance Directives For more information, please contact: [phone] * Full Code (Latest Code Status on File) Date Activated Date Inactivated Comments 08/15/2024 6:12 AM 08/21/2024 6:17 PM Care Teams Matcher Operator Relationship Specialty Start Date End Date Pelon Rodriguez MD [address] [place] [address] [address] [facility] [address] [place] [address] PCP - General Family Medicine 06/23/24 Erich Infante MD [address] [address] Consulting Physician Cardiology 07/26/24 Simran Pruett Primary Metal Furniture Polisher 07/26/24
--- OUTSIDE RECORDS SUMMARY | 2024-08-29 09:54 | XMS_ITS | Encounter Summary ---
Author Organization [facility] Address [facility] [place] [address] Care Team Providers Care Tube Roller Name Role Phone Malcolm Smart MD Primary Care Provider [phone] Erika Carreon NP Primary Care Provider [phone] Tony Mcelroy MD Unavailable Bar Alegria MD Unavailable [phone] Pelon Rodriguez MD Primary Care Provider [phone] Encounter Details Date Type Department Care Team (Late st Contact Info) Description [address] [facility] [address] [place] [address] Tony Mcelroy MD [address] [address] Social History Tobacco Use Types [...] Recorded In the past 12 months has [employer], oil, or [employer] threatened to shut off services in your [...] How often do you attend chur or yazdanism services? 1 to 4 times per year 08/13/2023 Do you belong to any clubs o r organizations such as latter-day groups, unions, fraternal or athletic groups, or [...] medical care, and heating? Patient declined 10/27/2023 [facility] - Occupational [...] place to sleep or slept in a nursing home (including now)? No 03/29/2023 Housing Stability Vital [...] any time in the past 12 m [facility], were you homeless or living in a nursing home (including now)? Patient declined 10/27/2023 Sex and [...] Diagnoses Diagnosis Chronic systolic heart failure (CMS/HCC [facility])- Primary Chronic systolic heart failure documented in this encounter Care Teams Tube Roller Relationship Specialty Start Date End Date Malcolm Smart MD [address] [facility] [place] [phone] PCP - General FAMILY PRACTICE 10/26/23 04/21/24 Erika Carreon NP [address] [place] [phone] PCP - General NURSE PRACTITIONER 04/22/24 08/02/24 Pelon Rodriguez MD [address] [place] [phone] PCP - General FAMILY PRACTICE 08/03/24 Tony Mcelroy MD [address] [facility] [address] [place] [address] CARDIOVASCULAR DISEASE 04/29/24 Bar Alegria MD [address] [facility] [address] [place] [address] INTERNAL MEDICINE 04/29/24 documented as of this encounter
--- OUTSIDE RECORDS SUMMARY | 2024-08-29 09:54 | XMS_ITS | Clinical Summary ---
Author Organization [facility] [address] Address [address] [place] [address] Care Team Providers Care Systems Project Manager Name Role Phone Michael, Pelon Piedra MD Primary Care Provi panda Erich Infante MD Unavailable [phone] Simran Pruett Unavailable Unavailable Allergies Active Allergy [...] Care Team Description 08/23/2024 SHOP/CHAP Initial Outreach [facility] OP CASE MANAGEMENT [address] [place] [address] Angelic Melton, RN 08/23/2024 SHOP/CHAP Initial Eligibility Review [facility] OP CASE MANAGEMENT 1 [place] [address] Angelic Melton, RN 08/16/2024 [facility] CHW Eligibility Review [facility] Community Health Worker [address] [place] [address] [address] [place] [address] Lindsey Jiang 08/15/2024 6:09 AM CDT - 08/21/2024 2:06 PM CDT Hospital Encounter [facility] 1 [place] [address] Wenceslao Reina MD Freer, MD Aubrey Alfonso Lyndon K., MD Cardiogenic shock (HCC) (Primary Dx) Discharge Disposition: Discharge to home or self care 08/13/2024 Telephone [facility] and [facility] Transplant Heart [address] [address] Mailstop 9029-406 [place] [address] Ginette Chavez RN 08/11/2024 Telephone [facility] Transplant Heart [address] [facility] [address] Mailstop 9029-746 [place] [address] Reena Ames 08/10/2024 Telephone [facility] Medical Group Cardiology [address] [facility] [address], [place] [address] Tony Mcelroy MD critical postassium level 08/06/2024 Telephone [facility] Medical [facility] Cardiology [address] [facility] [address] [place] [phone] Tony Mcelroy MD 08/05/2024 Orders Only [facility] Medical [facility] Cardiology [address] [facility] [address] [place] [phone] Kelly Friend NP 08/03/2024 Orders Only [facility] Cardiology [address] [facility] [address] [place] [phone] Wilbert Humphreys MD 07/27/2024 9:45 AM CDT Office Visit [facility] Cardiology [facility] Medical Office Building 3 [address] [place] [phone] Erich Infante MD Chronic combined systolic and diastolic congestive heart failure (HCC) (Primary Dx); Receiving inotropic medication; Alcoholic cardiomyopathy (HCC); Alcohol intoxication in active alcoholic; Marijuana use; High risk medication use 07/27/2024 Telephone [facility] and [facility] Transplant Heart [address] [facility] [address] Mailop [phone] [place] [address] Ginette Chavez, MADHURI 07/22/2024 Telephone [facility] Transplant Heart [address] [place] [address] [address] Mailstop 9029-365 [place] [address] Reena Ames 07/15/2024 Telephone [facility] Home Care Services [address] [place] [address] Unknown, Notinfile 06/24/2024 Results Follow-Up [facility] 1 [facility] [place] [phone] Erich Infante MD 06/24/2024 Telephone [facility] Cardiology [address] [facility] 8th [place] [address] [place] [address] Erich Infante MD 06/23/2024 10:00 AM [employer] Office Visit [facility] Cardiology [address] [facility] Office Building [address] [place] [address] Lurdes Chiang NP Chronic systolic heart failure (HCC) (Primary Dx) 06/23/2024 8:30 AM [employer] Ancillary Procedure [facility] [address] [place] [address] [address] [place] [phone] Chronic combined systolic and diastolic congestive heart failure (HCC) 06/23/2024 Telephone [facility] and [facility] Transplant Heart [address] [facility] 34[address] Mailstop [phone] [place] [address] Royal Lozada 06/23/2024 Telephone [facility] Transplant Heart [address] [facility] [address] Mailstop [phone] [place] [address] John Teixeira RN 06/23/2024 Telephone [facility] Cardiology [address] [place] [address] Office Building [address] [place] [address] Lurdes Chiang NP from Last [...] Tobacco: Former Tobacco Cessation:Counseling Given: Not Answered [facility] Utilities Answer Date Recorded In the past 12 months has e [employer], [employer], oil, or water [employer] threatened to shut off services in your [...] often do you attend chur ch or hoahaoism services? Never 08/19/2024 Do you belong to any clubs o r organizations such as restorationist groups, unions, fraternal or athletic groups, or [...] any time in the past 12 m [facility], were you homeless or living [...] on file Legal Sex Male 9:52 PM [employer] Gender Identity Not on file Sexual Orientation [...] DEVICE Routine 08/15/2024 1 0:51 AM CDT LA INSJ NON-TUNNELED CENTRAL VENOUS CATH AGE 4 YR/> Routine 08/15/2024 9:58 AM CDT Cardiogenic shock (HCC) POC BLOOD GAS AND CHEMISTRIES, ARTERIAL Routine 08/15/2024 9:57 AM CDT URINALYSIS, MICROSCOPIC ONLY Routine 08/15/2024 9:56 AM CDT URINALYSIS AND REFLEX TO MICROSCOPIC AND CULTURE Routine 08/15/2024 9:56 AM CDT LA ARTL CATHJ/CANNULJ MNTR/TRANSFUSION SPX PRQ Routine 08/15/2024 [...] DOPPLER/CF W CONTRAST Routine 06/23/2024 9:34 AM [employer] Chronic combined systolic and diastolic congestive heart failure (HCC) POCT LIPID PANEL Routine 04/16/2024 3:29 PM [employer] Chronic systolic congestive heart failure (HCC) from Last 3 Months or Most Recently Relevant to Health Maintenance Results * (ABNORMAL) POCT glucose (08/21/2024 8:12 AM CDT) Glucose, POC 264(H) 70 - 199 mg/dL Blood 08/21/2024 8:12 AM CDT 08/21/2024 8:12 AM CDT us Jesse Burgos MD LAB POCT ORDERABLES - DEVICE Fi nal Result [facility] [place] [address] * eGFR (08/21/2024 5:01 AM CDT) eGFR [...] ORDERABLES Final Resu lt Performing Organization Address City/[facility]/ZIP Co de Phone Number [facility] [place] [address] * Phosphorus (08/21/2024 5:01 AM CDT) Pathologist [facility] Phosphorus, pl 3.4 2.3 - 4.5 mg/dL Blood 08/21/2024 5:01 AM CDT 08/21/2024 6:09 AM CDT Jesse Burgos MD LAB BLOOD ORDERABLES Final Resu lt Performing Organization Address [facility] de Phone Number [facility] [place] [address] * (ABNORMAL) Basic metabolic panel (08/21/2024 5:01 AM CDT) Sodium 138 135 - 145 mmol/L Potassium, pl 4.4 3.3 - 4.9 mmol/L [facility] Chloride 95(L) 97 - 110 mmol/L [facility] CO2 33(H) 22 - 32 mmol/L [facility] Anion gap 10 2 - 15 mmol/L [facility] BUN 25 6 - 25 mg/dL [facility] Creatinine 0.74(L) 0.80 - 1.30 mg/dL [facility] Glucose 233(H) 70 - 199 mg/dL [facility] Comment: Interpretive Data Fasting glucose >/= [...] 2022. Calcium 10.0 8.5 - 10.3 mg/dL [facility] Blood 08/21/2024 5:01 AM CDT 08/21/2024 6:09 AM CDT Jesse Burgos MD LAB BLOOD ORDERABLES Final Resu lt Performing Organization Address [facility] Co de Phone Number [facility] [place] [address] * POCT glucose (08/20/2024 8:03 PM CDT) Glucose, POC 83 70 - 199 mg/dL Blood 08/20/2024 8:03 PM CDT 08/20/2024 8:03 PM CDT Jesse Burgos MD LAB POCT ORDERABLES - DEVICE Fi nal Result Performing Organization Address [facility] Co de Phone Number [facility] [place] [address] * POCT glucose (08/20/2024 4:52 PM CDT) Glucose, POC 154 70 - 199 mg/dL Blood 08/20/2024 4:52 PM CDT 08/20/2024 4:52 PM CDT Jesse Burgos MD LAB POCT ORDERABLES - DEVICE Fi nal Result Performing Organization Address [facility] Co de Phone Number [facility] [place] [address] * (ABNORMAL) POCT glucose (08/20/2024 12:27 PM CDT) Glucose, POC 210(H) 70 - 199 mg/dL Blood 08/20/2024 12:2 7 PM CDT 08/20/2024 12:27 PM CDT Jesse Burgos MD LAB POCT ORDERABLES - DEVICE Fi nal Result Performing Organization Address City/[facility] Co de Phone Number [facility] Department [place] [address] * POCT glucose (08/20/2024 8:27 AM CDT) Glucose, POC 95 70 - 199 mg/dL Blood 08/20/2024 8:27 AM CDT 08/20/2024 8:27 AM CDT Jesse Burgos MD LAB POCT ORDERABLES - DEVICE Fi nal Result Performing Organization Address [facility] de Phone Number [facility] [place] [address] * eGFR (08/20/2024 4:05 AM CDT) eGFR [...] ORDERABLES Final Resu lt Performing Organization Address City/[facility]/ZIP Co de Phone Number [facility] [place] [address] * Phosphorus (08/20/2024 4:05 AM CDT) Phosphorus, pl 4.4 2.3 - 4.5 mg/dL Blood 08/20/2024 4:05 AM CDT 08/20/2024 4:49 AM CDT Jesse Burgos MD LAB BLOOD ORDERABLES Final Resu lt Performing Organization Address [facility] de Phone Number [facility] [place] [address] * (ABNORMAL) Basic metabolic panel (08/20/2024 4:05 AM CDT) Sodium 139 135 - 145 mmol/L Potassium, pl 4.3 3.3 - 4.9 mmol/L [facility] Chloride 96(L) 97 - 110 mmol/L [facility] CO2 36(H) 22 - 32 mmol/L [facility] Anion gap 7 2 - 15 mmol/L [facility] BUN 22 6 - 25 mg/dL [facility] Creatinine 0.67(L) 0.80 - 1.30 mg/dL [facility] Glucose 115 70 - 199 mg/dL [facility] Comment: Interpretive Data Fasting glucose >/= [...] 2022. Calcium 10.0 8.5 - 10.3 mg/dL [facility] Blood 08/20/2024 4:05 AM CDT 08/20/2024 4:49 AM CDT Jesse Burgos MD LAB BLOOD ORDERABLES Final Resu lt Performing Organization Address City/[facility] Co de Phone Number [facility] [place] [address] * POCT glucose (08/19/2024 7:41 PM CDT) Glucose, POC 146 70 - 199 mg/dL Blood 08/19/2024 7:41 PM CDT 08/19/2024 7:41 PM CDT Jesse Burgos MD LAB POCT ORDERABLES - DEVICE Fi nal Result Performing Organization Address [facility] Co de Phone Number [facility] [place] [address] * POCT glucose (08/19/2024 5:27 PM CDT) Glucose, POC 175 70 - 199 mg/dL Blood 08/19/2024 5:27 PM CDT 08/19/2024 5:27 PM CDT Jesse Burgos MD LAB POCT ORDERABLES - DEVICE Fi nal Result Performing Organization Address City/[facility] Co de Phone Number [facility] [place] [address] * POCT glucose (08/19/2024 3:56 PM CDT) Glucose, POC 92 70 - 199 mg/dL Blood 08/19/2024 3:56 PM CDT 08/19/2024 3:56 PM CDT Jesse Burgos MD LAB POCT ORDERABLES - DEVICE Fi nal Result Performing Organization Address [facility] Co de Phone Number [facility] [place] [address] * POCT glucose (08/19/2024 11:47 AM CDT) Glucose, POC 162 70 - 199 mg/dL Blood 08/19/2024 11:4 7 AM CDT 08/19/2024 11:47 AM CDT Jesse Burgos MD LAB POCT ORDERABLES - DEVICE Fi nal Result Performing Organization Address [facility] Co de Phone Number [facility] [place] [address] * POCT glucose (08/19/2024 8:13 AM CDT) Glucose, POC 114 70 - 199 mg/dL Blood 08/19/2024 8:13 AM CDT 08/19/2024 8:13 AM CDT Jesse Burgos MD LAB POCT ORDERABLES - DEVICE Fi nal Result Performing Organization Address City/[facility] Co de Phone Number [facility] [place] [address] * POCT glucose (08/19/2024 5:31 AM CDT) Glucose, POC 121 70 - 199 mg/dL Blood 08/19/2024 5:31 AM CDT 08/19/2024 5:31 AM CDT us Jesse Burgos MD LAB POCT ORDERABLES - DEVICE Fi nal Result Performing Organization Address [facility] de Phone Number [facility] [place] [address] * eGFR (08/19/2024 5:25 AM CDT) eGFR [...] ORDERABLES Final Resu lt Performing Organization Address [facility] Co de Phone Number [facility] [place] [address] * (ABNORMAL) Basic metabolic panel (08/19/2024 5:25 AM CDT) Sodium 138 135 - 145 mmol/L Potassium, pl 4.3 3.3 - 4.9 mmol/L [facility] Chloride 94(L) 97 - 110 mmol/L [facility] CO2 36(H) 22 - 32 mmol/L [facility] Anion gap 8 2 - 15 mmol/L [facility] BUN 24 6 - 25 mg/dL [facility] Creatinine 0.66(L) 0.80 - 1.30 mg/dL [facility] Glucose 104 70 - 199 mg/dL [facility] Comment: Interpretive Data Fasting glucose >/= [...] 2022. Calcium 10.4(H) 8.5 - 10.3 mg/dL [facility] Blood 08/19/2024 5:25 AM CDT 08/19/2024 5:56 AM CDT us Jesse Burgos MD LAB BLOOD ORDERABLES Final Resu lt Performing Organization Address City/[facility]/ZIP Co de Phone Number [facility] [place] [address] * POCT glucose (08/18/2024 8:45 PM CDT) Glucose, POC 127 70 - 199 mg/dL Blood 08/18/2024 8:45 PM CDT 08/18/2024 8:45 PM CDT us Jesse Burgos MD LAB POCT ORDERABLES - DEVICE Fi nal Result Performing Organization Address City/[facility]/ZIP Co de Phone Number [facility] [place] [address] * POCT glucose (08/18/2024 7:52 PM CDT) Glucose, POC 79 70 - 199 mg/dL Blood 08/18/2024 7:52 PM CDT 08/18/2024 7:52 PM CDT Jesse Burgos MD LAB POCT ORDERABLES - DEVICE Fi nal Result Performing Organization Address City/[facility] Co de Phone Number [facility] [place] [address] * (ABNORMAL) POCT glucose (08/18/2024 7:31 PM CDT) Glucose, POC 42(C) 70 - 199 mg/dL Comment:Glu2: RN/MD Notified Glucose comment 1 Glu2: RN/MD Notified [facility] Blood 08/18/2024 7:31 PM CDT 08/18/2024 7:31 PM CDT Jesse Burgos MD LAB POCT ORDERABLES - DEVICE Fi nal Result Performing Organization Address [facility] Co de Phone Number [facility] [place] [address] * POCT glucose (08/18/2024 4:42 PM CDT) Glucose, POC 122 70 - 199 mg/dL Blood 08/18/2024 4:42 PM CDT 08/18/2024 4:42 PM CDT Jesse Burgos MD LAB POCT ORDERABLES - DEVICE Fi nal Result Performing Organization Address City/[facility] [place] [address] * (ABNORMAL) POCT glucose (08/18/2024 12:09 PM CDT) Glucose, POC 202(H) 70 - 199 mg/dL Blood 08/18/2024 12:0 9 PM CDT 08/18/2024 12:09 PM CDT Jesse Burgos MD LAB POCT ORDERABLES - DEVICE Fi nal Result Performing Organization Address City/[facility] Co de Phone Number [facility] [place] [address] * POCT glucose (08/18/2024 8:10 AM CDT) Glucose, POC 82 70 - 199 mg/dL Blood 08/18/2024 8:10 AM CDT 08/18/2024 8:10 AM CDT Jesse Burgos MD LAB POCT ORDERABLES - DEVICE Fi nal Result Performing Organization Address [facility] de Phone Number [facility] [place] [address] * eGFR (08/18/2024 6:19 AM CDT) eGFR [...] ORDERABLES Final Resu lt Performing Organization Address City/[facility] Co de Phone Number [facility] [place] [address] * HIV 1/2 Antibody plus p24 Antigen Blood (08/18/2024 6:19 AM CDT) Pathologist [facility] HIV 1/2 ab + p24 ag Nonreactive [...] ORDE RABLES Final Result Performing Organization Address [facility] [place] [address] * Hepatitis C antibody Blood (08/18/2024 6:19 AM CDT) [facility] Hep C Ab Nonreactive Nonreactive Comment:Antibodies to HCV no t detected. Does NOT exclude the possibility of recent exposure to HCV. Current interpretive data was last revised on 22 Blood 08/18/2024 6:19 AM CDT 08/18/2024 6:44 AM CDT Jesse Burgos MD LAB MICROBIOLOGY - GENERAL ORDJoshua BOJORQUEZ Final Result Performing Organization Address [facility] Co de Phone Number [facility] [place] [address] * RPR Blood (08/18/2024 6:19 AM CDT) Pathologist [facility] RPR Nonreactive Nonreactive Blood 08/18/2024 6:19 AM CDT 08/18/2024 6:44 AM CDT us Jesse Burgos MD LAB MICROBIOLOGY - GENERAL ORDE RABLES Final Result Performing Organization Address [facility] de Phone Number [facility] [place] [address] * Hepatitis B Surface Antigen Blood (08/18/2024 6:19 AM CDT) HepBsAg Nonreactive Nonreactive Blood 08/18/2024 6:19 AM CDT 08/18/2024 6:44 AM CDT us Jesse Burgos MD LAB MICROBIOLOGY - GENERAL ORDJoshua BOJORQUEZ Final Result Performing Organization Address [facility] Phone Number [facility] Department [place] [address] * Phosphorus (08/18/2024 6:19 AM CDT) Pathologist [facility] Phosphorus, pl 2.9 2.3 - 4.5 mg/dL Blood 08/18/2024 6:19 AM CDT 08/18/2024 6:44 AM CDT us Wenceslao Reina MD LAB BLOOD ORDERABLES Final R esult Performing Organization Address [facility] Co de Phone Number [facility] [place] [address] * Creatine kinase (CK), total (08/18/2024 6:19 AM CDT) CK 207 40 - 300 Units/L Blood 08/18/2024 6:19 AM CDT 08/18/2024 6:44 AM CDT us Jesse Burgos MD LAB BLOOD ORDERABLES Final Resu lt [facility] Department [place] [address] * (ABNORMAL) Basic metabolic panel (08/18/2024 6:19 AM CDT) Sodium 137 135 - 145 mmol/L Potassium, pl 3.9 3.3 - 4.9 mmol/L [facility] Chloride 93(L) 97 - 110 mmol/L [facility] CO2 36(H) 22 - 32 mmol/L [facility] Anion gap 8 2 - 15 mmol/L [facility] BUN 21 6 - 25 mg/dL [facility] Creatinine 0.59(L) 0.80 - 1.30 mg/dL [facility] Glucose 96 70 - 199 mg/dL [facility] Comment: Interpretive Data Fasting glucose >/= [...] 2022. Calcium 9.4 8.5 - 10.3 mg/dL [facility] Blood 08/18/2024 6:19 AM CDT 08/18/2024 6:44 AM CDT us Jesse Burgos MD LAB BLOOD ORDERABLES Final Resu lt Performing Organization Address City/[facility]/ZIP Co de Phone Number [facility] Department [place] [address] * POCT glucose (08/17/2024 7:55 PM CDT) Glucose, POC 172 70 - 199 mg/dL Blood 08/17/2024 7:55 PM CDT 08/17/2024 7:55 PM CDT Jesse Burgos MD LAB POCT ORDERABLES - DEVICE Fi nal Result Performing Organization Address [facility] de Phone Number [facility] [place] [address] * POCT glucose (08/17/2024 5:04 PM CDT) Glucose, POC 188 70 - 199 mg/dL Blood 08/17/2024 5:04 PM CDT 08/17/2024 5:04 PM CDT us Jesse Burgos MD LAB POCT ORDERABLES - DEVICE Fi nal Result Performing Organization Address [facility] de Phone Number [facility] [place] [address] * POCT glucose (08/17/2024 11:11 AM CDT) Glucose, POC 163 70 - 199 mg/dL Blood 08/17/2024 11:1 1 AM CDT 08/17/2024 11:11 AM CDT Jesse Burgos MD LAB POCT ORDERABLES - DEVICE Fi nal Result Performing Organization Address [facility] de Phone Number [facility] [place] [address] * Lactate (08/17/2024 10:58 AM CDT) Lactate 1.6 0.7 - 2.0 mmol/L Blood 08/17/2024 10:5 8 AM CDT 08/17/2024 12:40 PM CDT Jesse Burgos MD LAB BLOOD ORDERABLES Final Resu lt Performing Organization Address [facility] Co de Phone Number [facility] Department [place] [address] * POCT glucose (08/17/2024 7:38 AM CDT) Glucose, POC 144 70 - 199 mg/dL Blood 08/17/2024 7:38 AM CDT 08/17/2024 7:38 AM CDT us Jesse Burgos MD LAB POCT ORDERABLES - DEVICE Fi nal Result Performing Organization Address [facility] Co de Phone Number [facility] [place] [address] * eGFR (08/17/2024 6:06 AM CDT) eGFR [...] ORDERABLES Chelsea l Result Performing Organization Address [facility]/ZIP Co de Phone Number [facility] [place] [address] * (ABNORMAL) Iron profile w/ IBC (08/17/2024 6:06 AM CDT) [facility] Iron 38(L) 50 - 150 mcg/dL TIBC 200(L) 250 - 400 mcg/dL [facility] Transferrin saturation 19(L) 20 - 50 % [facility] Blood 08/17/2024 6:06 AM CDT 08/17/2024 6:49 AM CDT us Isaiah Segura MD LAB BLOOD ORDERABLES Chelsea rainey Result [facility] [place] [address] * (ABNORMAL) CBC without differential (08/17/2024 6:06 AM CDT) [facility] WBC 7.55 3.80 - 9.90 K/cumm Hgb 10.3(L) 13.0 - 17.5 g/dL [facility] Hct 31.9(L) 38.9 - 50.3 % [facility] Plt 150 150 - 400 K/cumm [facility] MPV 9.1 9.1 - 12.3 fL [facility] RBC 3.58(L) 4.30 - 5.80 M/cumm [facility] MCV 89.1 81.3 - 96.4 fL [facility] MCH 28.8 27.1 - 33.3 pg [facility] MCHC 32.3 32.3 - 35.7 g/dL [facility] RDW CV 15.4(H) 11.1 - 14.9 % [facility] RDW SD 50.7(H) 35.7 - 48.1 fL [facility] NRBC abs 0.00 0.00 - 0.01 K/cumm [facility] Blood 08/17/2024 6:06 AM CDT 08/17/2024 6:49 AM CDT Isaiah Segura MD LAB BLOOD ORDERABLES Chelsea l Result Performing Organization Address City/[facility] Co de Phone Number [facility] [place] [address] * Phosphorus (08/17/2024 6:06 AM CDT) Phosphorus, pl 2.3 2.3 - 4.5 mg/dL Blood 08/17/2024 6:06 AM CDT 08/17/2024 6:49 AM CDT us Wenceslao Reina MD LAB BLOOD ORDERABLES Final R esult Performing Organization Address [facility] de Phone Number [facility] [place] [address] * Magnesium (08/17/2024 6:06 AM CDT) Magnesium 2.1 1.4 - 2.5 mg/dL Blood 08/17/2024 6:06 AM CDT 08/17/2024 6:49 AM CDT us Isaiah Segura MD LAB BLOOD ORDERABLES Chelsea l Result Performing Organization Address [facility] [facility] Co de Phone Number [facility] [place] [address] * Folate (08/17/2024 6:06 AM CDT) Folic acid >20.0 >=5.0 ng/mL Blood 08/17/2024 6:06 AM CDT 08/17/2024 6:49 AM CDT Isaiah Segura MD LAB BLOOD ORDERABLES Chelsea l Result Performing Organization Address City/[facility] Co de Phone Number [facility] [place] [address] * Ferritin (08/17/2024 6:06 AM CDT) [facility] Ferritin 234 30 - 400 ng/mL Blood 08/17/2024 6:06 AM CDT 08/17/2024 6:49 AM CDT Isaiah Segura MD LAB BLOOD ORDERABLES Chelsea l Result [facility] [place] [address] * (ABNORMAL) Vitamin B12 (08/17/2024 6:06 AM CDT) [facility] Vitamin B12 1,618(H) 230 - 1,250 pg/mL Blood 08/17/2024 6:06 AM CDT 08/17/2024 6:49 AM CDT Isaiah Segura MD LAB BLOOD ORDERABLES Chelsea l Result Performing Organization Address City/[facility] [place] [address] * (ABNORMAL) Basic metabolic panel (08/17/2024 6:06 AM CDT) [facility] Sodium 135 135 - 145 mmol/L Potassium, pl 3.6 3.3 - 4.9 mmol/L [facility] Chloride 92(L) 97 - 110 mmol/L [facility] CO2 36(H) 22 - 32 mmol/L [facility] Anion gap 7 2 - 15 mmol/L [facility] BUN 14 6 - 25 mg/dL [facility] Creatinine 0.78(L) 0.80 - 1.30 mg/dL [facility] Glucose 124 70 - 199 mg/dL [facility] Comment: Interpretive Data Fasting glucose >/= [...] 2022. Calcium 9.2 8.5 - 10.3 mg/dL [facility] Blood 08/17/2024 6:06 AM CDT 08/17/2024 6:49 AM CDT Isaiah Segura MD LAB BLOOD ORDERABLES Chelsea l Result Performing Organization Address [facility] Co de Phone Number [facility] [place] [address] * POCT glucose (08/16/2024 9:19 PM CDT) Glucose, POC 173 70 - 199 mg/dL Blood 08/16/2024 9:19 PM CDT 08/16/2024 9:19 PM CDT Isaiah Segura MD LAB POCT ORDERABLES - DEV ICE Final Result Performing Organization Address [facility] Co de Phone Number [facility] [place] [address] * POCT glucose (08/16/2024 9:10 PM CDT) Glucose, POC 192 70 - 199 mg/dL Blood 08/16/2024 9:10 PM CDT 08/16/2024 9:10 PM CDT Isaiah Segura MD LAB POCT ORDERABLES - DEV ICE Final Result Performing Organization Address [facility] Co de Phone Number [facility] [place] [address] * Lactate (08/16/2024 7:03 PM CDT) Lactate 1.6 0.7 - 2.0 mmol/L Blood 08/16/2024 7:03 PM CDT 08/16/2024 7:17 PM CDT Isaiah Segura MD LAB BLOOD ORDERABLES Chelsea l Result Performing Organization Address City/[facility] Co de Phone Number [facility] [place] [address] * POCT glucose (08/16/2024 5:13 PM CDT) Glucose, POC 125 70 - 199 mg/dL Blood 08/16/2024 5:13 PM CDT 08/16/2024 5:13 PM CDT Isaiah Segura MD LAB POCT ORDERABLES - DEV ICE Final Result Performing Organization Address [facility] de Phone Number [facility] [place] [address] * Lactate (08/16/2024 4:56 PM CDT) Lactate 1.2 0.7 - 2.0 mmol/L Blood 08/16/2024 4:56 PM CDT 08/16/2024 5:29 PM CDT Isaiah Segura MD LAB BLOOD ORDERABLES Chelsea l Result Performing Organization Address [facility] de Phone Number [facility] [place] [address] * (ABNORMAL) POCT glucose (08/16/2024 11:23 AM CDT) Glucose, POC 269(H) 70 - 199 mg/dL Blood 08/16/2024 11:2 3 AM CDT 08/16/2024 11:23 AM CDT us Isaiah Segura MD LAB POCT ORDERABLES - DEV ICE Final Result [facility] Department [place] [address] * TRANSTHORACIC ECHO (TTE) COMPLETE W DOPPLER/CF W CONTRAST (08/16/2024 11:21 AM CDT) Anatomical Region Laterality Modality Ultrasound 08/16/2024 10:0 1 AM CDT Narrative 08/16/2024 11:58 AM CDT [facility] [place] [address] Transthoracic Echocardiographic Report Patient Name: SOPHIA HANNA STEPHEN : 1990 (34y 3m) Gender: M Study Date: 08/16/2024 10:01:37 AM Ht(Inch): 72 Wt(Lb): 138.01 BSA: 1.78 Pediatric Assistant: Patricia Carmichael RDCS Location: [id number] Order Provider: WENCESLAO REINA Heart Rate: 106 [...] Procedure Note Re Bautista MD - 08/16/2024 [facility] [place] [address] Transthoracic Echocardiographic Report Patient Name: SOPHIA HANNA STEPHEN : 1990 (34y 3m) Gender: M Study Date: 08/16/2024 10:01:37 AM Ht(Inch): 72 Wt(Lb): 138.01 BSA: 1.78 Pediatric Assistant: Patricia Carmichael SUNI Location: [id number] Order Provider:WENCESLAO REINA Heart Rate: 106 BMI: [...] LA Length 4C 3.89 cm MV Decel [id number] msec [ 104.00 - 258.00 ] LA [...] LAB BLOOD ORDERABLES Chelsea l Result [facility] Department [place] [address] * (ABNORMAL) POCT glucose (08/16/2024 9:06 AM CDT) Glucose, POC 287(H) 70 - 199 mg/dL Blood 08/16/2024 9:06 AM CDT 08/16/2024 9:06 AM CDT us Isaiah Segura MD LAB POCT ORDERABLES - DEV ICE Final Result Performing Organization Address [facility] Co de Phone Number [facility] Department [place] [address] * eGFR (08/16/2024 9:01 AM CDT) eGFR [...] ORDERABLES Final R esult Performing Organization Address City/[facility]/ZIP Co de Phone Number [facility] [place] [address] * (ABNORMAL) CBC without differential (08/16/2024 9:01 AM CDT) WBC 10.14(H) 3.80 - 9.90 K/cumm Hgb 11.4(L) 13.0 - 17.5 g/dL [facility] Hct 34.3(L) 38.9 - 50.3 % [facility] Plt 174 150 - 400 K/cumm [facility] MPV 9.6 9.1 - 12.3 fL [facility] RBC 3.92(L) 4.30 - 5.80 M/cumm [facility] MCV 87.5 81.3 - 96.4 fL [facility] MCH 29.1 27.1 - 33.3 pg [facility] MCHC 33.2 32.3 - 35.7 g/dL [facility] RDW CV 15.2(H) 11.1 - 14.9 % [facility] RDW SD 48.6(H) 35.7 - 48.1 fL [facility] NRBC abs 0.00 0.00 - 0.01 K/cumm [facility] Blood 08/16/2024 9:01 AM CDT 08/16/2024 10:05 AM CDT us Wenceslao Reina MD LAB BLOOD ORDERABLES Final R esult [facility] Department [place] [address] * (ABNORMAL) Basic metabolic panel (08/16/2024 9:01 AM CDT) Sodium 130(L) 135 - 145 mmol/L Potassium, pl 3.5 3.3 - 4.9 mmol/L [facility] Chloride 86(L) 97 - 110 mmol/L [facility] CO2 36(H) 22 - 32 mmol/L [facility] Anion gap 8 2 - 15 mmol/L [facility] BUN 8 6 - 25 mg/dL [facility] Creatinine 0.65(L) 0.80 - 1.30 mg/dL [facility] Glucose 189 70 - 199 mg/dL [facility] Comment: Interpretive Data Fasting glucose >/= [...] 2022. Calcium 9.2 8.5 - 10.3 mg/dL [facility] Blood 08/16/2024 9:01 AM CDT 08/16/2024 10:05 AM CDT Wenceslao Reina MD LAB BLOOD ORDERABLES Final R esult Performing Organization Address City/[facility] Co de Phone Number [facility] Department [place] [address] * Calcium, ionized (08/16/2024 5:40 AM CDT) Calcium, Ionized 4.59 4.50 - 5.10 mg/dL Blood 08/16/2024 5:40 AM CDT 08/16/2024 5:56 AM CDT Wenceslao Reina MD LAB BLOOD ORDERABLES Final R esult Performing Organization Address [facility] de Phone Number [facility] [place] [address] * (ABNORMAL) Phosphorus (08/16/2024 5:40 AM CDT) Phosphorus, pl 1.3(L) 2.3 - 4.5 mg/dL Blood 08/16/2024 5:40 AM CDT 08/16/2024 5:56 AM CDT Wenceslao Reina MD LAB BLOOD ORDERABLES Final R esult Performing Organization Address [facility] Co de Phone Number [facility] [place] [address] * (ABNORMAL) Hepatic function panel (08/16/2024 5:40 AM CDT) [facility] Bilirubin, total 0.5 0.1 - 1.2 mg/dL Bilirubin, direct 0.2 0.1 - 0.3 mg/dL [facility] Protein, pl 6.5 6.5 - 8.5 g/dL [facility] Albumin 4.2 3.5 - 5.0 g/dL [facility] Alk phos 69 40 - 130 Units/L [facility] ALT 52 7 - 55 Units/L [facility] AST 88(H) 10 - 50 Units/L [facility] Blood 08/16/2024 5:40 AM CDT 08/16/2024 5:56 AM CDT us Wenceslao Reina MD LAB BLOOD ORDERABLES Final R esult Performing Organization Address City/[facility]/ZIP [place] [address] * POCT glucose (08/16/2024 3:49 AM CDT) [facility] Glucose, POC 179 70 - 199 mg/dL Blood 08/16/2024 3:49 AM CDT 08/16/2024 3:49 AM CDT Wenceslao Reina MD LAB POCT ORDERABLES - DEVICE Final Result Performing Organization Address [facility]/ZIP [place] [address] * Oxyhemoglobin, pulmonary artery (08/15/2024 11:30 PM CDT) [facility] Oxyhemoglobin, PA 67.9 % Comment: Interpretive Data No reference range established. Current interpretive data was last revised 2019. Blood 08/15/2024 11:3 0 PM CDT 08/15/2024 11:49 PM CDT us Wenceslao Reina MD LAB BLOOD ORDERABLES Final R esult Performing Organization Address [facility] Co de Phone Number [facility] [place] [address] * (ABNORMAL) Hemoglobin total, pulmonary artery (08/15/2024 11:30 PM CDT) Hemoglobin total, PA 11.6(L) 13.0 - 17.5 g/dL Blood 08/15/2024 11:3 0 PM CDT 08/15/2024 11:49 PM CDT us Wenceslao Reina MD LAB BLOOD ORDERABLES Final R esult Performing Organization Address [facility] de Phone Number [facility] [place] [address] * POCT glucose (08/15/2024 11:30 PM CDT) Glucose, POC 186 70 - 199 mg/dL Blood 08/15/2024 11:3 0 PM CDT 08/15/2024 11:30 PM CDT us Wenceslao Reina MD LAB POCT ORDERABLES - DEVICE Final Result Performing Organization Address [facility] Co de Phone Number [facility] [place] [address] * Lactate, whole blood (08/15/2024 11:30 PM CDT) Lactate, bld 1.8 0.7 - 2.0 mmol/L Blood 08/15/2024 11:3 0 PM CDT 08/15/2024 11:49 PM CDT Wenceslao Reina MD LAB BLOOD ORDERABLES Final R esult Performing Organization Address [facility] Co de Phone Number [facility] [place] [address] * eGFR (08/15/2024 9:17 PM CDT) eGFR [...] ORDERABLES Final R esult Performing Organization Address [facility] Co de Phone Number [facility] Department [place] [address] * Magnesium (08/15/2024 9:17 PM CDT) Magnesium 2.1 1.4 - 2.5 mg/dL Blood 08/15/2024 9:17 PM CDT 08/15/2024 9:48 PM CDT us Mumtaz Juan MD LAB BLOOD ORDERABLES Fi nal Result Performing Organization Address [facility] Co de Phone Number [facility] Department [place] [address] * (ABNORMAL) Basic metabolic panel (08/15/2024 9:17 PM CDT) Sodium 130(L) 135 - 145 mmol/L Potassium, pl 4.2 3.3 - 4.9 mmol/L [facility] Chloride 87(L) 97 - 110 mmol/L [facility] CO2 34(H) 22 - 32 mmol/L [facility] Anion gap 9 2 - 15 mmol/L [facility] BUN 10 6 - 25 mg/dL [facility] Creatinine 0.77(L) 0.80 - 1.30 mg/dL [facility] Glucose 133 70 - 199 mg/dL [facility] Comment: Interpretive Data Fasting glucose >/= [...] 2022. Calcium 9.7 8.5 - 10.3 mg/dL [facility] Blood 08/15/2024 9:17 PM CDT 08/15/2024 9:48 PM CDT us Wenceslao Reina MD LAB BLOOD ORDERABLES Final R esult [facility] Department [place] [address] * POCT glucose (08/15/2024 9:16 PM CDT) Glucose, POC 143 70 - 199 mg/dL Blood 08/15/2024 9:16 PM CDT 08/15/2024 9:16 PM CDT us Wenceslao Reina MD LAB POCT ORDERABLES - DEVICE Final Result Performing Organization Address [facility] [place] [address] * POCT glucose (08/15/2024 6:29 PM CDT) Glucose, POC 138 70 - 199 mg/dL Blood 08/15/2024 6:29 PM CDT 08/15/2024 6:29 PM CDT us Wenceslao Reina MD LAB POCT ORDERABLES - DEVICE Final Result Performing Organization Address [facility] de Phone Number [facility] [place] [address] * POCT glucose (08/15/2024 5:17 PM CDT) Glucose, POC 198 70 - 199 mg/dL Blood 08/15/2024 5:17 PM CDT 08/15/2024 5:17 PM CDT us Wenceslao Reina MD LAB POCT ORDERABLES - DEVICE Final Result Performing Organization Address [facility] de Phone Number [facility] [place] [address] * POCT glucose (08/15/2024 4:21 PM CDT) Glucose, POC 170 70 - 199 mg/dL Blood 08/15/2024 4:21 PM CDT 08/15/2024 4:21 PM CDT Wenceslao Reina MD LAB POCT ORDERABLES - DEVICE Final Result Performing Organization Address [facility] Co de Phone Number [facility] [place] [address] * Oxyhemoglobin, central venous (08/15/2024 3:22 PM CDT) Oxyhemoglobin, CV 70.4 % Comment: Interpretive Data No reference range established. Current interpretive data was last revised 2019. Blood 08/15/2024 3:22 PM CDT 08/15/2024 3:28 PM CDT us Wenceslao Reina MD LAB BLOOD ORDERABLES Final R esult [facility] [place] [address] * (ABNORMAL) Hemoglobin total, pulmonary artery (08/15/2024 3:22 PM CDT) Pathologist [facility] Hemoglobin total, PA 10.6(L) 13.0 - 17.5 g/dL Blood 08/15/2024 3:22 PM CDT 08/15/2024 3:36 PM CDT us Wenceslao Reina MD LAB BLOOD ORDERABLES Final R esult [facility] Department [place] [address] * eGFR (08/15/2024 3:22 PM CDT) eGFR [...] LAB BLOOD ORDERABLES Final R esult [facility] [place] [address] * (ABNORMAL) Pro B-type natriuretic peptide (08/15/2024 [...] ORDERABLES Final R esult Performing Organization Address [facility] Co de Phone Number [facility] [place] [address] * Lactate, whole blood (08/15/2024 3:22 PM CDT) Lactate, bld 1.2 0.7 - 2.0 mmol/L Blood 08/15/2024 3:22 PM CDT 08/15/2024 3:28 PM CDT Wenceslao Reina MD LAB BLOOD ORDERABLES Final R esult Performing Organization Address [facility] Co de Phone Number [facility] [place] [address] * Phosphorus (08/15/2024 3:22 PM CDT) Pathologist [facility] Phosphorus, pl 3.0 2.3 - 4.5 mg/dL Comment:Reviewed Blood 08/15/2024 3:22 PM CDT 08/15/2024 3:44 PM CDT Wenceslao Reina MD LAB BLOOD ORDERABLES Final R esult Performing Organization Address [facility] Co de Phone Number [facility] [place] [address] * Magnesium (08/15/2024 3:22 PM CDT) Magnesium 2.3 1.4 - 2.5 mg/dL Blood 08/15/2024 3:22 PM CDT 08/15/2024 3:44 PM CDT Wenceslao Reina MD LAB BLOOD ORDERABLES Final R esult Performing Organization Address City/[facility]/ZIP Co de Phone Number [facility] Department [place] [address] * (ABNORMAL) Basic metabolic panel (08/15/2024 3:22 PM CDT) [facility] Sodium 133(L) 135 - 145 mmol/L Potassium, pl 4.1 3.3 - 4.9 mmol/L [facility] Chloride 89(L) 97 - 110 mmol/L [facility] CO2 33(H) 22 - 32 mmol/L [facility] Anion gap 11 2 - 15 mmol/L [facility] BUN 14 6 - 25 mg/dL [facility] Creatinine 0.93 0.80 - 1.30 mg/dL [facility] Glucose 145 70 - 199 mg/dL [facility] Comment: Interpretive Data Fasting glucose >/= [...] 2022. Calcium 10.1 8.5 - 10.3 mg/dL [facility] Blood 08/15/2024 3:22 PM CDT 08/15/2024 3:44 PM CDT Wenceslao Reina MD LAB BLOOD ORDERABLES Final R esult Performing Organization Address City/[facility]/ZIP Co de Phone Number [facility] Department [place] [address] * POCT glucose (08/15/2024 3:20 PM CDT) Glucose, POC 146 70 - 199 mg/dL Blood 08/15/2024 3:20 PM CDT 08/15/2024 3:20 PM CDT Wenceslao Riena MD LAB POCT ORDERABLES - DEVICE Final Result Performing Organization Address [facility] Co de Phone Number [facility] [place] [address] * POCT glucose (08/15/2024 2:40 PM CDT) Glucose, POC 93 70 - 199 mg/dL Blood 08/15/2024 2:40 PM CDT 08/15/2024 2:40 PM CDT us Wenceslao Reina MD LAB POCT ORDERABLES - DEVICE Final Result Performing Organization Address [facility] [place] [address] * XR Chest 1 View (08/15/2024 2:40 PM CDT) Anatomical Region Laterality Modality Body, Chest N/A Computed Radiogr aphy 08/16/2024 9:53 AM CDT Impressions 08/16/2024 9:53 AM CDT 1. No prior examination available for comparison. A right peripherally inserted central venous catheter tip is in the right atrium. [place] catheter tip overlies the main pulmonary artery. There is no pneumonic consolidation or pneumothorax. 2. Comparison is made to prior examination from the same date. The [place] catheter tip is now located in the [...] catheter tip is in the right atrium. [place] catheter tip overlies the main pulmonary artery. There is no pneumonic consolidation or pneumothorax. 2. Comparison is made to prior examination from the same date. The [place] catheter tip is now located in the [...] LAB POCT ORDERABLES - DEVICE Final Result [facility] [place] [address] * (ABNORMAL) Blood gas, arterial (08/15/2024 1:51 PM CDT) pH, Art 7.48(H) 7.35 - 7.45 PCO2, Arterial 47(H) 35 - 45 mmHg [facility] PO2, Arterial 89 83 - 108 mmHg [facility] HCO3 Art (Calculated) 35(H) 20 - 30 mmol/L [facility] BE, art 10 mmol/L [facility] Comment: Interpretive Data No Reference Range Established Current Interpretive Data was last revised on 2017 O2 Sat Art (Measured) 97(H) 90 - 95 % [facility] Blood 08/15/2024 1:51 PM CDT 08/15/2024 1:58 PM CDT us Wenceslao Reina MD LAB BLOOD ORDERABLES Final R esult Performing Organization Address City/[facility]/ZIP Co de Phone Number [facility] [place] [address] * POCT glucose (08/15/2024 1:03 PM CDT) Glucose, POC 124 70 - 199 mg/dL Blood 08/15/2024 1:03 PM CDT 08/15/2024 1:03 PM CDT us Wenceslao Reina MD LAB POCT ORDERABLES - DEVICE Final Result Performing Organization Address [facility] Co de Phone Number [facility] [place] [address] * XR Abdomen Ap 1 Vw (08/15/2024 [...] catheter tip is in the right atrium. [place] catheter tip overlies the main pulmonary artery. There is no pneumonic consolidation or pneumothorax. 2. Comparison is made to prior examination from the same date. The [place] catheter tip is now located in the [...] catheter tip is in the right atrium. [place] catheter tip overlies the main pulmonary artery. There is no pneumonic consolidation or pneumothorax. 2. Comparison is made to prior examination from the same date. The [place] catheter tip is now located in the [...] 2019. Trop I hs delta 54(C) ng/L [facility] Comment:Previous critical va lue noted within 48 hours ago. Trop I hs interp Significa nt(C) [facility] Comment:Previous critical va lue noted within 48 hours ago. Blood 08/15/2024 12:3 2 PM CDT 08/15/2024 12:45 PM CDT Wenceslao Reina MD LAB BLOOD ORDERABLES Final R esult Performing Organization Address City/[facility]/ZIP Co de Phone Number [facility] [place] [address] * Oxyhemoglobin, pulmonary artery (08/15/2024 12:32 PM CDT) Pathologist [facility] Oxyhemoglobin, PA 72.8 % Comment: Interpretive Data No reference range established. Current interpretive data was last revised 2019. Blood 08/15/2024 12:3 2 PM CDT 08/15/2024 12:44 PM CDT Wenceslao Reina MD LAB BLOOD ORDERABLES Final R esult [facility] [place] [address] * (ABNORMAL) Hemoglobin total, pulmonary artery (08/15/2024 12:32 PM CDT) Hemoglobin total, PA 10.4(L) 13.0 - 17.5 g/dL Blood 08/15/2024 12:3 2 PM CDT 08/15/2024 12:44 PM CDT us Jose J Tolbert MD LAB BLOOD ORDERABLES Final Result Performing Organization Address [facility] Co de Phone Number [facility] [place] [address] * eGFR (08/15/2024 12:32 PM CDT) eGFR [...] ORDERABLES Final R esult Performing Organization Address City/[facility]/ZIP Co de Phone Number [facility] [place] [address] * (ABNORMAL) Calcium, ionized (08/15/2024 12:32 PM CDT) Calcium, Ionized 5.14(H) 4.50 - 5.10 mg/dL Blood 08/15/2024 12:3 2 PM CDT 08/15/2024 12:55 PM CDT Wenceslao Reina MD LAB BLOOD ORDERABLES Final R esult Performing Organization Address [facility] Co de Phone Number [facility] [place] [address] * (ABNORMAL) Phosphorus (08/15/2024 12:32 PM CDT) Pathologist [facility] Phosphorus, pl 0.9(L) 2.3 - 4.5 mg/dL Blood 08/15/2024 12:3 2 PM CDT 08/15/2024 12:45 PM CDT Wenceslao Reina MD LAB BLOOD ORDERABLES Final R esult Performing Organization Address [facility] Co de Phone Number [facility] Department [place] [address] * Magnesium (08/15/2024 12:32 PM CDT) [facility] Magnesium 2.4 1.4 - 2.5 mg/dL Blood 08/15/2024 12:3 2 PM CDT 08/15/2024 12:45 PM CDT Wenceslao Reina MD LAB BLOOD ORDERABLES Final R esult Performing Organization Address [facility] Co de Phone Number [facility] [place] [address] * (ABNORMAL) Basic metabolic panel (08/15/2024 12:32 PM CDT) Pathologist [facility] Sodium 133(L) 135 - 145 mmol/L Potassium, pl 4.2 3.3 - 4.9 mmol/L [facility] Chloride 90(L) 97 - 110 mmol/L [facility] CO2 33(H) 22 - 32 mmol/L [facility] Comment:Reviewed Anion gap 10 2 - 15 mmol/L [facility] Comment:Reviewed BUN 15 6 - 25 mg/dL [facility] Creatinine 0.97 0.80 - 1.30 mg/dL [facility] Glucose 144 70 - 199 mg/dL [facility] Comment: Interpretive Data Fasting glucose >/= [...] 2022. Calcium 10.5(H) 8.5 - 10.3 mg/dL [facility] Blood 08/15/2024 12:3 2 PM CDT 08/15/2024 12:45 PM CDT us Wenceslao Reina MD LAB BLOOD ORDERABLES Final R esult Performing Organization Address City/[facility]/ZIP Co de Phone Number [facility] [place] [address] * POCT glucose (08/15/2024 11:57 AM CDT) Glucose, POC 165 70 - 199 mg/dL Blood 08/15/2024 11:5 7 AM CDT 08/15/2024 11:57 AM CDT us Wenceslao Reina MD LAB POCT ORDERABLES - DEVICE Final Result [facility] [place] [address] * (ABNORMAL) Troponin I high-sensitivity 4-hour (08/15/2024 10:58 AM CDT) Trop I hs 76(H) <=35 ng/L Comment: Previous critical value noted within 48 hours ago. Interpretive Data For further hscTnI resources including the diagnostic algorithm and an aid in interpretation, copy and paste this link: https://bjhlab.testcatalog.org/show/hsTrop-1 Current Interpretive Data last revised 2019. Trop I hs delta 25(C) ng/L [facility] Comment:Previous critical va lue noted within 48 hours ago. Trop I hs interp Significa nt(C) [facility] Comment:Previous critical va lue noted within 48 hours ago. Blood 08/15/2024 10:5 8 AM CDT 08/15/2024 11:06 AM CDT us Wenceslao Reina MD LAB BLOOD ORDERABLES Final R esult Performing Organization Address [facility] Co de Phone Number [facility] [place] [address] * Oxyhemoglobin, central venous (08/15/2024 10:58 AM CDT) Oxyhemoglobin, CV 71.6 % Comment: Interpretive Data No reference range established. Current interpretive data was last revised 2019. Blood 08/15/2024 10:5 8 AM CDT 08/15/2024 11:06 AM CDT us Wenceslao Reina MD LAB BLOOD ORDERABLES Final R esult Performing Organization Address City/[facility] Co de Phone Number [facility] [place] [address] * (ABNORMAL) Hemoglobin total, pulmonary artery (08/15/2024 10:58 AM CDT) Hemoglobin total, PA 9.8(L) 13.0 - 17.5 g/dL Blood 08/15/2024 10:5 8 AM CDT 08/15/2024 11:06 AM CDT us Wencselao Reina MD LAB BLOOD ORDERABLES Final R esult Performing Organization Address [facility] Co de Phone Number [facility] [place] [address] * Lactate, whole blood (08/15/2024 10:58 AM CDT) Lactate, bld 1.8 0.7 - 2.0 mmol/L Blood 08/15/2024 10:5 8 AM CDT 08/15/2024 11:06 AM CDT us Wenceslao Reina MD LAB BLOOD ORDERABLES Final R esult Performing Organization Address [facility] Co de Phone Number [facility] [place] [address] * POCT glucose (08/15/2024 10:51 AM CDT) Glucose, POC 165 70 - 199 mg/dL Blood 08/15/2024 10:5 1 AM CDT 08/15/2024 10:51 AM CDT us Wenceslao Reina MD LAB POCT ORDERABLES - DEVICE Final Result Performing Organization Address [facility] Co de Phone Number [facility] [place] [address] * LA INSJ NON-TUNNELED CENTRAL VENOUS CATH AGE 4 YR/> (08/15/2024 9:58 AM CDT) Narrative Wenceslao Reina MD - 08/15/2024 9:58 AM CDT Wenceslao Reina MD 08/15/2024 3:12 PM Central Line Insertion- SGC Date/Time: 08/15/2024 9:58 AM Performed by: Ngozi Tamez MD Authorized by: Wenceslao Reina MD [place] Protocol: RN Notified of Procedure: yes Patient [...] Ultrasound guidance: Real-time needle guidance Procedural supplies: [facility] Needle inserted, vein idenitified then guidewire inserted easily into vein: Yes Successful placement: Yes Patient tolerance: Patient tolerated the procedure well with no immediate complications us Wenceslao Reina MD IN CLINIC/BEDSIDE ORDERABLES Final Result * (ABNORMAL) POC Blood Gas and Chemistries, Arterial - (08/15/2024 9:57 AM CDT) pH, Art POC 7.36 7.35 - 7.45 pCO2, Art POC 25(L) 35 - 45 mmHg [facility] pO2, Art POC 83 83 - 108 mmHg [facility] Na, POC 130(L) 135 - 145 mmol/L [facility] K POC 4.6 3.3 - 4.9 mmol/L [facility] Comment: Interpretive Data Not all point of care methods assess for hemolysis. Confirm with instrument and retest K+ if not consistent with clinical signs and symptoms. Current Interpretive Data was last revised on 2023. Cl, POC 93(L) 97 - 110 mmol/L [facility] Ionized Ca, POC 6.02(H) 4.50 - 5.10 mg/dL [facility] Glucose, POC 253(H) 70 - 199 mg/dL [facility] Lactate, POC 2.4(H) 0.7 - 2.0 mmol/L [facility] SO2 (fabiana) arterial 98(H) 90 - 95 % [facility] Base excess, POC -10.0 mmol/L [facility] HCO3, Art POC 14(L) 20 - 30 mmol/L [facility] Hct, POC 29.0(L) 41.4 - 51.6 % [facility] Total Hb, POC 9.7(L) 13.8 - 17.2 g/dL [facility] Blood 08/15/2024 9:57 AM CDT 08/15/2024 9:57 AM CDT Wenceslao Reina MD LAB POCT ORDERABLES - DEVICE Final Result Performing Organization Address [facility]/ZIP Co de Phone Number [facility] [place] [address] * (ABNORMAL) Urinalysis reflex to microscopic and culture Urine (08/15/2024 9:56 AM CDT) Color, ur Straw Yellow Clarity, ur Clear Clear [facility] Specific gravity, ur 1.008 1.003 - 1.030 [facility] pH, urine 6.0 [facility] Comment: Interpretive Data U rine pH is affected by diet, medications, systemic acid-base disturbances, and renal tubular function. pH may affect urinary stone formation. For example, urine pH below 6.0 may help reduce the tendency for calcium phosphate stones and pH greater than 6.0 may reduce the tendency for uric acid stone formation. Source: [facility] Current Interpretive Data was last revised on 2017 Protein, ur ql Negative Negative [facility] Glucose, ur ql 3+(A) Negative [facility] Ketones, ur 1+(A) Negative [facility] Bilirubin, ur Negative Negative [facility] Blood, ur 2+(A) Negative [facility] Urobilinogen, ur <2.0 <2.0 mg/dL [facility] Nitrite, ur Negative Negative [facility] Leukocyte esterase, ur Negative Negative [facility] UA reflex comment Reflex to microscopic UA will be performed. [facility] Urine 08/15/2024 9:56 AM CDT 08/15/2024 10:15 AM CDT us Wenceslao Reina MD LAB MICROBIOLOGY - GENERAL O RDERABLES Final Result Performing Organization Address City/[facility]/ZIP Co de Phone Number [facility] [place] [address] * (ABNORMAL) Urinalysis, microscopic only (08/15/2024 9:56 AM CDT) WBC, ur 0-5 0 - 5 /HPF RBC, ur 0-2 0 - 2 /HPF [facility] Epithelial cells, squamous, ur 1-5 0 - 5 /HPF [facility] Bacteria, ur Trace(A) [facility] Mucous, ur Present(A) [facility] Culture Reflex Comment Reflex conditions for urine culture (WBC >10) not met. [facility] Urine 08/15/2024 9:56 AM CDT 08/15/2024 10:15 AM CDT us Wenceslao Reina MD LAB URINE ORDERABLES Final R esult Performing Organization Address City/State/[facility] Co de Phone Number [facility] [place] [address] * LA ARTL CATHJ/CANNULJ MNTR/TRANSFUSION SPX PRQ (08/15/2024 9:53 AM CDT) Narrative Wenceslao Reina MD - 08/15/2024 9:53 AM CDT Wenceslao Reina MD 08/15/2024 3:12 PM Arterial Line Insertion Date/Time: 08/15/2024 9:53 AM Performed by: Ngozi Tamez MD Authorized by: Wenceslao Reina MD [place] Protocol: RN Notified of Procedure: yes Informed [...] - DEVICE Final Result Performing Organization Address City/[facility] Co de Phone Number [facility] [place] [address] * eGFR (08/15/2024 8:38 AM CDT) eGFR [...] ORDERABLES F inal Result Performing Organization Address City/[facility]/ZIP Co de Phone Number [facility] [place] [address] * Critical Result Callback Chemistry (08/15/2024 8:38 AM CDT) Date Notified 20240815 Time Notified 942 [facility] TestName Anion Gap [facility] Called/Read Back Beth [facility] Credentials RN [facility] Called By [facility] Blood 08/15/2024 8:38 AM CDT 08/15/2024 8:57 AM CDT us Kayleigh Avila MD LAB BLOOD ORDERABLES F inal Result [facility] [place] [address] * (ABNORMAL) Comprehensive metabolic panel (08/15/2024 8:38 AM CDT) Sodium 132(L) 135 - 145 mmol/L Potassium, pl 4.6 3.3 - 4.9 mmol/L [facility] Chloride 89(L) 97 - 110 mmol/L [facility] CO2 14(L) 22 - 32 mmol/L [facility] Anion gap 29(C) 2 - 15 mmol/L [facility] Comment:Reviewed BUN 19 6 - 25 mg/dL [facility] Creatinine 1.25 0.80 - 1.30 mg/dL [facility] Glucose 266(H) 70 - 199 mg/dL [facility] Comment: Interpretive Data Fasting glucose >/= [...] 2022. Calcium 10.8(H) 8.5 - 10.3 mg/dL [facility] Comment:Repeated and Verifie d Bilirubin, total 0.4 0.1 - 1.2 mg/dL [facility] Protein, pl 5.8(L) 6.5 - 8.5 g/dL [facility] Albumin 3.8 3.5 - 5.0 g/dL [facility] Alk phos 59 40 - 130 Units/L [facility] ALT 49 7 - 55 Units/L [facility] AST 94(H) 10 - 50 Units/L [facility] Blood 08/15/2024 8:38 AM CDT 08/15/2024 8:57 AM CDT Kayleigh Avila MD LAB BLOOD ORDERABLES F inal Result Performing Organization Address [facility] Co de Phone Number [facility] [place] [address] * (ABNORMAL) Troponin I high-sensitivity 2-hour (08/15/2024 8:29 AM CDT) Trop I hs 66(H) <=35 ng/L Comment: Interpretive Data For further hscTnI resources including the diagnostic algorithm and an aid in interpretation, copy and paste this link: https://bjhlab.testcatalog.org/show/hsTrop-1 Current Interpretive Data last revised 2019. Trop I hs delta 15(C) ng/L [facility] Comment:Reviewed Trop I hs interp Significa nt(C) [facility] Comment:Reviewed Blood 08/15/2024 8:29 AM CDT 08/15/2024 8:57 AM CDT us Wenceslao Reina MD LAB BLOOD ORDERABLES Final R esult Performing Organization Address City/[facility]/ZIP Co de Phone Number [facility] [place] [address] * Oxyhemoglobin, central venous (08/15/2024 8:29 AM CDT) Oxyhemoglobin, CV 75.8 % Comment: Interpretive Data No reference range established. Current interpretive data was last revised 2019. Blood 08/15/2024 8:29 AM CDT 08/15/2024 8:47 AM CDT us Wenceslao Reina MD LAB BLOOD ORDERABLES Final R esult [facility] [place] [address] * Critical result callback Cardio chemistry (08/15/2024 8:29 AM CDT) Date Notified 20240815 Time Notified 09 [facility] Test name Trop I hs 2hr delta [facility] Called/Read Back Beth [facility] Credentials RN [facility] Called By ra [facility] Blood 08/15/2024 8:29 AM CDT 08/15/2024 8:57 AM CDT us Wenceslao Reina MD LAB BLOOD ORDERABLES Final R esult Performing Organization Address City/[facility]/ZIP Co de Phone Number [facility] [place] [address] * Critical Result Callback Chemistry (08/15/2024 8:29 AM CDT) Date Notified 20240815 Time Notified 0858 [facility] TestName Lactate Whole Blood [facility] Called/Read Back Kimmy [facility] Credentials RN [facility] Called By LISA [facility] Blood 08/15/2024 8:29 AM CDT 08/15/2024 8:48 AM CDT us Wenceslao Reina MD LAB BLOOD ORDERABLES Final R esult Performing Organization Address City/[facility]/ZIP Co de Phone Number [facility] [place] [address] * (ABNORMAL) Lactate, whole blood (08/15/2024 8:29 AM CDT) Pathologist [facility] Lactate, bld 4.2(C) 0.7 - 2.0 mmol/L Comment:Reviewed Blood 08/15/2024 8:29 AM CDT 08/15/2024 8:48 AM CDT Wenceslao Reina MD LAB BLOOD ORDERABLES Final R esult Performing Organization Address City/[facility] Co de Phone Number [facility] [place] [address] * (ABNORMAL) Beta-hydroxybutyrate (08/15/2024 7:42 AM CDT) Pathologist [facility] Beta-Hydroxybut yrate 4.2(H) 0.0 - 0.5 mmol/L Blood 08/15/2024 7:42 AM CDT 08/15/2024 7:48 AM CDT Wenceslao Reina MD LAB BLOOD ORDERABLES Final R esult Performing Organization Address City/[facility] Co de Phone Number [facility] [place] [address] * Blood culture Blood (08/15/2024 7:41 AM CDT) Pathologist [facility] Report Final Report: No growth Blood 08/15/2024 7:41 AM CDT 08/15/2024 8:49 AM CDT Narrative [facility] - 08/19/2024 12:00 PM CDT From [...] performance characteristics have been verified by the [facility] Microbiology Laboratory. For questions about this culture, contact the Microbiology Laboratory at [phone]. Interpretive data was last revised on 24. Wenceslao Reina MD LAB MICROBIOLOGY - GENERAL O RDERABLES Final Result [facility] [place] [address] * Blood culture Blood (08/15/2024 7:41 AM CDT) Report Final Report: No growth Blood 08/15/2024 7:41 AM CDT 08/15/2024 7:52 AM CDT Narrative [facility] - 08/19/2024 12:00 PM CDT Collection->Peripheral 1. [...] performance characteristics have been verified by the [facility] Microbiology Laboratory. For questions about this culture, contact the Microbiology Laboratory at [phone]. Interpretive data was last revised on 24. us Wenceslao Reina MD LAB MICROBIOLOGY - GENERAL O RDERABLES Final Result [facility] Department [place] [address] * (ABNORMAL) POC Blood Gas and Chemistries, Arterial - (08/15/2024 7:38 AM CDT) pH, Art POC 7.18(C) 7.35 - 7.45 pCO2, Art POC 26(L) 35 - 45 mmHg [facility] pO2, Art POC 97 83 - 108 mmHg [facility] Na, POC 127(L) 135 - 145 mmol/L [facility] K POC 4.8 3.3 - 4.9 mmol/L [facility] Comment: Interpretive Data Not all point of care methods assess for hemolysis. Confirm with instrument and retest K+ if not consistent with clinical signs and symptoms. Current Interpretive Data was last revised on 2023. Cl, POC 93(L) 97 - 110 mmol/L [facility] Ionized Ca, POC 6.73(H) 4.50 - 5.10 mg/dL [facility] Glucose, POC 301(H) 70 - 199 mg/dL [facility] Lactate, POC 4.2(C) 0.7 - 2.0 mmol/L [facility] SO2 (fabiana) arterial 98(H) 90 - 95 % [facility] Base excess, POC -17.2 mmol/L [facility] HCO3, Art POC 10(C) 20 - 30 mmol/L [facility] Hct, POC 26.0(L) 41.4 - 51.6 % [facility] Total Hb, POC 8.8(L) 13.8 - 17.2 g/dL [facility] Blood 08/15/2024 7:38 AM CDT 08/15/2024 7:38 AM CDT us Wenceslao Reina MD LAB POCT ORDERABLES - DEVICE Final Result Performing Organization Address [facility] Co de Phone Number [facility] [place] [address] * Check Sample (08/15/2024 6:50 AM CDT) ABO Rh A Positive [facility] OTHER 08/15/2024 6:50 AM CDT 08/15/2024 7:00 AM CDT us Wenceslao Reina MD LAB BLOOD ORDERABLES Final R esult Performing Organization Address [facility] de Phone Number [facility] [place] [address] [facility] * (ABNORMAL) Calcium, ionized (08/15/2024 6:50 AM CDT) Calcium, Ionized 3.68(L) 4.50 - 5.10 mg/dL Blood 08/15/2024 6:50 AM CDT 08/15/2024 6:57 AM CDT us Wenceslao Reina MD LAB BLOOD ORDERABLES Final R esult Performing Organization Address [facility] de Phone Number [facility] [place] [address] * aPTT (08/15/2024 6:50 AM CDT) aPTT [...] ORDERABLES Final R esult Performing Organization Address [facility] Co de Phone Number [facility] [place] [address] * Protime-INR (08/15/2024 6:50 AM CDT) PT 10.4 9.7 - 13.0 sec INR 0.96 0.90 - 1.20 [facility] Comment: Interpretive data Oral anticoagulant therapeutic ranges: Venous thromboembolism prophylaxis or treatment: 2.0-3.0 CARDIOLOGY Standard range: 2.0-3.0 High-intensity range: 2.5-3.5 Refer to indication-specific guidelines for appropriate target ranges for prosthetic heart valve replacement. Current interpretive data was last revised on 2019. Blood 08/15/2024 6:50 AM CDT 08/15/2024 6:57 AM CDT Wenceslao Reina MD LAB BLOOD ORDERABLES Final R esult Performing Organization Address [facility] Co de Phone Number [facility] [place] [address] * Type and screen (08/15/2024 6:29 AM CDT) John, indirect Negative ABO Rh A Positive [facility] Blood 08/15/2024 6:29 AM CDT 08/15/2024 6:44 AM CDT Narrative [facility] - 08/15/2024 7:32 AM CDT Has the patient had Daratumumab or Isatuximab in the past 6 months?->Unknown Wenceslao Reina MD LAB BLOOD BANK TEST ORDERABL ES Final Result Performing Organization Address [facility] Co de Phone Number [facility] [place] [address] * (ABNORMAL) Troponin I high-sensitivity series (baseline, [...] LAB BLOOD ORDERABLES Final R esult [facility] [place] [address] * eGFR (08/15/2024 6:26 AM CDT) eGFR [...] MD LAB BLOOD ORDERABLES Final R esult [facility] [place] [address] * (ABNORMAL) Differential, auto (08/15/2024 6:26 AM CDT) Neutrophil abs 7.40(H) 1.50 - 6.50 K/cumm Imm gran abs 0.06 0.00 - 0.10 K/cumm [facility] Lymphocyte abs 0.81 0.80 - 3.30 K/cumm [facility] Monocyte abs 1.85(H) 0.20 - 0.80 K/cumm [facility] Eosinophil abs 0.03 0.00 - 0.50 K/cumm [facility] Basophil abs 0.01 0.00 - 0.10 K/cumm [facility] Neutrophil pct 72.8 % [facility] Comment: Interpretive Data Percent cell count reference ranges are not reported, since discordance with absolute values may lead to misinterpretation of CBC data. Current Interpretive Data was last revised on 2017. Imm gran pct 0.6 % [facility] Comment: Interpretive Data Percent cell count reference ranges are not reported, since discordance with absolute values may lead to misinterpretation of CBC data. Current Interpretive Data was last revised on 2017. Lymphocyte pct 8.0 % [facility] Comment: Interpretive Data Percent cell count reference ranges are not reported, since discordance with absolute values may lead to misinterpretation of CBC data. Current Interpretive Data was last revised on 2017. Monocyte pct 18.2 % [facility] Comment: Interpretive Data Percent cell count reference ranges are not reported, since discordance with absolute values may lead to misinterpretation of CBC data. Current Interpretive Data was last revised on 2017. Eosinophil pct 0.3 % [facility] Comment: Interpretive Data Percent cell count reference ranges are not reported, since discordance with absolute values may lead to misinterpretation of CBC data. Current Interpretive Data was last revised on 2017. Basophil pct 0.1 % [facility] Comment: Interpretive Data Percent cell count reference ranges are not reported, since discordance with absolute values may lead to misinterpretation of CBC data. Current Interpretive Data was last revised on 2017. Blood 08/15/2024 6:26 AM CDT 08/15/2024 6:49 AM CDT us Wenceslao Reina MD LAB BLOOD ORDERABLES Final R esult Performing Organization Address [facility] Co de Phone Number [facility] Department [place] [address] * Critical Result Callback Chemistry (08/15/2024 6:26 AM CDT) Date Notified 20240815 Time Notified 901 [facility] TestName Calcium, Anion Gap, CO2 Totl [facility] Called/Read Back [facility] Credentials [facility] Called By ra [facility] Blood 08/15/2024 6:26 AM CDT 08/15/2024 6:40 AM CDT us Wenceslao Reina MD LAB BLOOD ORDERABLES Final R esult Performing Organization Address [facility] Co de Phone Number [facility] [place] [address] * Critical Result Callback Chemistry (08/15/2024 6:26 AM CDT) Date Notified 20240815 Time Notified 720 [facility] TestName Lactate Whole Blood, pH Robbin, HCO3 Robbin (Calc) [facility] Called/Read Back Hiral Regan Credentials [facility] Called By LISA [facility] Blood 08/15/2024 6:26 AM CDT 08/15/2024 6:40 AM CDT us Wenceslao Reina MD LAB BLOOD ORDERABLES Final R esult Performing Organization Address City/[facility] de Phone Number [facility] [place] [address] * (ABNORMAL) CBC with auto differential (08/15/2024 6:26 AM CDT) [facility] WBC 10.16(H) 3.80 - 9.90 K/cumm Hgb 8.5(L) 13.0 - 17.5 g/dL [facility] Hct 26.2(L) 38.9 - 50.3 % [facility] Plt 240 150 - 400 K/cumm [facility] MPV 9.2 9.1 - 12.3 fL [facility] RBC 2.89(L) 4.30 - 5.80 M/cumm [facility] MCV 90.7 81.3 - 96.4 fL [facility] MCH 29.4 27.1 - 33.3 pg [facility] MCHC 32.4 32.3 - 35.7 g/dL [facility] RDW CV 15.4(H) 11.1 - 14.9 % [facility] RDW SD 51.3(H) 35.7 - 48.1 fL [facility] NRBC abs 0.00 0.00 - 0.01 K/cumm [facility] Blood 08/15/2024 6:26 AM CDT 08/15/2024 6:49 AM CDT Wenceslao Reina MD LAB BLOOD ORDERABLES Final R esult Performing Organization Address City/[facility] Co de Phone Number [facility] [place] [address] * (ABNORMAL) Lactate, whole blood (08/15/2024 6:26 AM CDT) [facility] Lactate, bld 4.6(C) 0.7 - 2.0 mmol/L Comment:Repeated and verifie d. Blood 08/15/2024 6:26 AM CDT 08/15/2024 6:40 AM CDT Wenceslao Reina MD LAB BLOOD ORDERABLES Final R esult Performing Organization Address [facility] Co de Phone Number [facility] [place] [address] * (ABNORMAL) TSH (08/15/2024 6:26 AM CDT) Thyroid Stimulating Hormone 0.05(L) 0.30 - 4.20 mcIUnit/mL Blood 08/15/2024 6:26 AM CDT 08/15/2024 6:40 AM CDT Wenceslao Reina MD LAB BLOOD ORDERABLES Final R esult Performing Organization Address [facility] Co de Phone Number [facility] [place] [address] * Phosphorus (08/15/2024 6:26 AM CDT) Phosphorus, pl 2.4 2.3 - 4.5 mg/dL Comment:Repeated and verifie d. Blood 08/15/2024 6:26 AM CDT 08/15/2024 6:40 AM CDT Wenceslao Reina MD LAB BLOOD ORDERABLES Final R esult Performing Organization Address [facility] Co de Phone Number [facility] [place] [address] * Magnesium (08/15/2024 6:26 AM CDT) Magnesium 1.7 1.4 - 2.5 mg/dL Comment:Repeated and verifie d. Blood 08/15/2024 6:26 AM CDT 08/15/2024 6:40 AM CDT Wenceslao Reina MD LAB BLOOD ORDERABLES Final R esult Performing Organization Address [facility] Co de Phone Number [facility] [place] [address] * Lipase (08/15/2024 6:26 AM CDT) Lipase 38 10 - 99 Units/L Blood 08/15/2024 6:26 AM CDT 08/15/2024 6:40 AM CDT Wenceslao Reina MD LAB BLOOD ORDERABLES Final R esult Performing Organization Address [facility] [place] [address] * (ABNORMAL) Hemoglobin A1c (08/15/2024 6:26 AM CDT) [facility] Hgb A1C 5.9(H) 4.0 - 5.6 % Estimated Average Glucose 123 mg/dL [facility] Comment: The ADA recommends reporting an [...] Reina MD LAB BLOOD ORDERABLES Final R [facility] Performing Organization Address [facility] Co de Phone Number [facility] [place] [address] * (ABNORMAL) Blood gas, venous (08/15/2024 6:26 AM CDT) Pathologist [facility] pH, Venous 7.18(C) 7.32 - 7.43 Comment:Repeated and verifie d. PCO2, Venous 23(L) 40 - 50 mmHg [facility] Comment:Repeated and verifie d. PO2, Venous 63 mmHg [facility] Comment: Repeated and verified. Interpretive Data No Reference Range Established Current Interpretive Data was last revised on 2017. HCO3 Venous, Calculated 9(C) 20 - 30 mmol/L [facility] Comment:Repeated and verifie d. BE, venous -19 mmol/L [facility] Comment: Repeated and verified. Interpretive Data No Reference Range Established Current Interpretive Data was last revised on 2017. Blood 08/15/2024 6:26 AM CDT 08/15/2024 6:40 AM CDT Wenceslao Reina MD LAB BLOOD ORDERABLES Final R ult Performing Organization Address [facility] de Phone Number [facility] [place] [address] * (ABNORMAL) Ethanol (08/15/2024 6:26 AM CDT) Pathologist [facility] Ethanol 100(H) <=10 mg/dL Comment: Repeated and verified. Interpretive Data Legal limit of intoxication > or = 80 mg/dL Levels > or = 400 mg/dL are potentially TOXIC. Current interpretive data was last revised on 2018. Blood 08/15/2024 6:26 AM CDT 08/15/2024 6:40 AM CDT Wenceslao Reina MD LAB BLOOD ORDERABLES Final R esult Performing Organization Address [facility] de Phone Number [facility] Department [place] [address] * (ABNORMAL) Comprehensive metabolic panel (08/15/2024 6:26 AM CDT) Pathologist [facility] Sodium 130(L) 135 - 145 mmol/L Comment:Repeated and verifie d. Potassium, pl 4.9 3.3 - 4.9 mmol/L [facility] Comment:Repeated and verifie d. Chloride 85(L) 97 - 110 mmol/L [facility] Comment:Repeated and verifie d. CO2 10(C) 22 - 32 mmol/L [facility] Comment:Repeated and verifie d. Anion gap 35(C) 2 - 15 mmol/L [facility] Comment:Repeated and verifie d. BUN 19 6 - 25 mg/dL [facility] Comment:Repeated and verifie d. Creatinine 1.35(H) 0.80 - 1.30 mg/dL [facility] Comment:Repeated and verifie d. Glucose 319(H) 70 - 199 mg/dL [facility] Comment: Repeated and verified. Interpretive Data [...] 2022. Calcium 6.1(C) 8.5 - 10.3 mg/dL [facility] Comment:Repeated and verifie d. Bilirubin, total 0.4 0.1 - 1.2 mg/dL [facility] Comment:Repeated and verifie d. Protein, pl 5.4(L) 6.5 - 8.5 g/dL [facility] Comment:Repeated and verifie d. Albumin 3.6 3.5 - 5.0 g/dL [facility] Comment:Repeated and verifie d. Alk phos 55 40 - 130 Units/L [facility] Comment:Repeated and verifie d. ALT 45 7 - 55 Units/L [facility] Comment:Repeated and verifie d. AST 91(H) 10 - 50 Units/L [facility] Comment:Repeated and verifie d. Blood 08/15/2024 6:26 AM CDT 08/15/2024 6:40 AM CDT Wenceslao Reina MD LAB BLOOD ORDERABLES Final R esult [facility] [place] [address] * (ABNORMAL) POC Blood Gas and Chemistries, Venous - (08/15/2024 6:21 AM CDT) pH, Robbin POC 7.14(C) 7.32 - 7.43 pCO2, robbin POC 24(L) 40 - 50 mmHg [facility] pO2, robbin POC 51 mmHg [facility] Na, POC 126(L) 135 - 145 mmol/L [facility] K POC 5.7(H) 3.3 - 4.9 mmol/L [facility] Comment: Interpretive Data Not all point of care methods assess for hemolysis. Confirm with instrument and retest K+ if not consistent with clinical signs and symptoms. Current Interpretive Data was last revised on 2023. Cl, POC 89(L) 97 - 110 mmol/L [facility] Ionized Ca, POC 3.48(L) 4.50 - 5.10 mg/dL [facility] Glucose, POC 338(H) 70 - 199 mg/dL [facility] Lactate, POC 4.8(C) 0.7 - 2.0 mmol/L [facility] O2 Sat, Robbin POC (Fabiana) 84 % [facility] Base excess, POC -19.2 mmol/L [facility] HCO3, Robbin POC 8(C) 20 - 30 mmol/L [facility] Hct, POC 27.0(L) 41.4 - 51.6 % [facility] Total Hb, POC 8.9(L) 13.8 - 17.2 g/dL [facility] Blood 08/15/2024 6:21 AM CDT 08/15/2024 6:21 AM CDT us Wenceslao Reina MD LAB POCT ORDERABLES - DEVICE Final Result [facility] [place] [address] * Cardiology Document Scan (07/31/2024 4:46 PM [...] >90 EXTERNAL LAB SCRIBED eGFR in NonAfrican Japanese >90 >90 EXTERNAL LAB Blood 07/22/2024 2:15 PM CDT Erich Infante MD LAB BLOOD ORDERABLES Fi nal Result EXTERNAL LAB * B-type natriuretic peptide (06/24/2024) SCRIBED BNP 238 <125 pg/mL [facility] Blood 06/24/2024 Erich Infante MD LAB BLOOD ORDERABLES Fi nal Result [facility] * (ABNORMAL) Comprehensive metabolic panel (06/24/2024) SCRIBED Sodium 139 136 - 145 mmol/L [facility] SCRIBED Potassium 3.6 3.5 - 5.1 mmol/L [facility] SCRIBED Chloride 96(A) 100 - 108 mmol/L [facility] SCRIBED Carbon Dioxide 33.3(A) 21 - 32 mmol/L [facility] SCRIBED Anion Gap 9.7 5 - 15 mmol/L [facility] SCRIBED Urea Nitrogen (BUN) 21(A) 7 - 18 mg/dl [facility] SCRIBED Creatinine 0.90 0.7 - 1.3 mg/dl [facility] SCRIBED Glucose 151(A) 70 - 99 mg/dl [facility] Calcium 9.4 8.5 - 10.1 mg/dl [facility] Bilirubin 0.9 0.2 - 1.2 mg/dl [facility] Plasma Protein 6.8 6.4 - 8.2 g/dl [facility] Albumin 4.1 3.4 - 5.0 g/dl [facility] Alkaline Phosphatase 76 50 - 136 Units/L [facility] Alanine Transaminase (ALT) 58 16 - 60 Units/L [facility] Aspartate Transaminase (AST) 78(A) 15 - 37 Units/L [facility] eGFR in NonAfrican Japanese >90 >90 [facility] Alb/glob ratio 1.5 1.0 - 2.0 [facility] BUN_Creat Ratio 23.3 6 - 26 [facility] Blood 06/24/2024 us Erich Infante MD LAB BLOOD ORDERABLES Fi nal Result [facility] * TRANSTHORACIC ECHO (TTE) COMPLETE W DOPPLER/CF W CONTRAST (06/23/2024 9:34 AM [employer]) Anatomical Region Laterality Modality Ultrasound 06/23/2024 8:59 AM [employer] Narrative 06/23/2024 1:32 PM [employer] [facility] Cardiac Diagnostic Lab [address], [address] [place] [address] Transthoracic Echocardiographic Report Patient Name: SOPHIA HANNA ST : 1990 (34y 2m) Gender: M Study Date: 06/23/2024 08:59:08 AM Ht(Inch): 72 Wt(Lb): 149.91 BSA: 1.86 Pediatric Assistant: Joanna Mcfarlane RDCS Location: [facility] Order Provider: ERICH INFANTE Heart Rate: 111 [...] index. Previously Signed by:Jaciel 06/23/2024 1:31:45 PM [employer] and Cong Nix M.D. 06/23/2024 1:31:45 PM [employer] End of Addendum PROCEDURES: Echocardiographic Report: ([id number], [id number]) Transthoracic complete echo with strain imaging and [...] By: Cong Nix M.D. 06/23/2024 1:31:45 PM [employer] Electronically Signed By: Cong Nix M.D. 06/23/2024 1:31:45 PM [employer] Electronically Amended By: Cong Nix M.D. 07/20/2024 1:51:15 PM CDT [ADDENDUM] Procedure Note Cong Nix MD - 07/20/2024 [facility] Cardiac Diagnostic Lab [address] , [address] [place] [address] Transthoracic Echocardiographic Report Patient Name: SOPHIA HANNA ST : 1990 (34y 2m) Gender: M Study Date: 06/23/2024 08:59:08 AM Ht(Inch): 72 Wt(Lb): 149.91 BSA: 1.86 Pediatric Assistant: Joanna Mcfarlane RDCS Location: [facility] Order Provider:ERICH INFANTE Heart Rate: 111 BMI: [...] index. Previously Signed by:SignedForBoth 06/23/2024 1:31:45 PM [employer]QUIPMENT [employer] and Cong Nix M.D. 06/23/2024 1:31:45 PM [employer] End of Addendum PROCEDURES: Echocardiographic Report: ([id number], [id number]) Transthoracic complete echo withstrain imaging and contrast, [...] LA Length 2C 5.59 cm MV Decel Ohvc792.26 msec [ 104.00 - 258.00 ] LA [...] By: Cong Nix M.D. 06/23/2024 1:31:45 PM [employer]MENT [employer] Electronically Signed By: Cong Nix M.D. 06/23/2024 1:31:45 PM [employer] Electronically Amended By: Cong Nix M.D. 07/20/2024 1:51:15 PM CDT [ADDENDUM] us Erich Infante MD CV ECHO PROCEDURES Edit ed Result - Final * POCT lipid panel (04/16/2024 3:29 PM [employer]) Cholesterol, POC 170 mg/dL HDL, POC 76 mg/dL Triglycerides, POC 112 mg/dL LDL Cholesterol POC 71 mg/dL Chol/HDL Ratio, POC 2.2 Non-HDL Cholesterol, POC 93 mg/dL Cholesterol Total, POC 170 mg/dL Capillary blood 04/16/2024 3 :29 PM [employer] us Tony Mcelroy MD POINT OF CARE TEST ORDERABLES Fi nal Result from Last 3 Months or Most Recently Relevant to Health Maintenance Insurance [facility] ACCESS ANTHEM ACCESS ANTHEM ACCESS Advance Directives For more information, please contact: [phone] * Full Code (Latest Code Status on File) Date Activated Date Inactivated Comments 08/15/2024 6:12 AM 08/21/2024 6:17 PM Care Teams Systems Project Manager Relationship Specialty Start Date End Date Pelon Rodriguez MD [address] [place] [address] [address] HUANG [facility] [address] [place] [address] PCP - General Family Medicine 06/23/24 Erich Infante MD [address] [address] Consulting Physician Cardiology 07/26/24 Simran Pruett Primary Boil Off Worker 07/26/24
--- OUTSIDE RECORDS SUMMARY | 2024-08-29 09:54 | XMS_ITS | Clinical Summary ---
Author Organization [facility] Address [address] [place] [address] Care Team Providers Care Oral Surgery Assistant Name Role Phone Tony Mcelroy MD Unavailable Bar Alegria MD Unavailable [phone] Pelon Rodriguez MD Primary Care Provider [phone] Allergies Active Allergy Reactions Criticality Noted Date [...] 02/24/20 Active normal saline 0.9 % injectionIndicatio ns:personal lines insurance advisor Inject 10 mLs into the vein as needed (personal lines insurance advisor). Indications: personal lines insurance advisor 02/18/20 Active Heparin Sodium, Porcine, (HEPARIN, PORCINE, LOCK FLUSH IV)Indications:london e maintenance 50 Units by IVP route as needed (personal lines insurance advisor). use after normal saline for personal lines insurance advisor Indications: personal lines insurance advisor 02/18/20 Active fentaNYL (DURAGESIC) 100 mcg/hrIndications: Chronic [...] needed. Indications: sleep disturbance 08/11/19 Active biotin 95005 MCG tabletIndications: supplement Take 10,000 mcg by [...] Care Team Description 08/16/2024 Home Care Visit [address] [address] Aisha Radford RN CASE COMMUNICATION 08/13/2024 1:00 PM CDT Home Care Visit [address] [address] Minerva Lancaster, RN CASE COMMUNICATION 08/12/2024 1:30 PM CDT Home Care Visit [address] [place] [address] [place] [address] Jes Flores L, OT PATIENT NOT HOME 08/10/2024 1:16 PM CDT - 08/10/2024 11:59 PM CDT Hospital Encounter [facility] [address] [place] [address] Tony Mcelroy MD Discharge Disposition: Home or Self Care (Routine Discharge) 08/10/2024 10:15 AM CDT Home Care Visit [address] [place] [address] Minerva Lancaster, MADHURI SN NON ADMIT SOC 08/10/2024 Orders Only [facility] [address] [place] [address] Tony Mcelroy MD 08/03/[address] [address] [facility] 07/22/2024 1:38 PM CDT - 07/22/2024 2:30 PM CDT Hospital Encounter [facility] [address] [place] [id number] Tony Mcelroy MD Discharge Disposition: Home or Self Care (Routine Discharge) 07/22/2024 1:37 PM CDT Hospital Encounter [facility] [address] [place] [address] Tony Mcelroy MD Discharge Disposition: Home or Self Care (Routine Discharge) 07/22/2024 Telephone [facility] [address] [place] [address] Mary Ellen Mahmood MD Lab Results (Critical value ) 07/22/2024 Travel 06/24/2024 1:57 PM THREAD WINDER - 06/24/2024 2:52 PM THREAD WINDER Hospital Encounter [facility] [address] [place] [address] Tony Mcelroy MD Discharge Disposition: Home or Self Care (Routine Discharge) 06/24/2024 Travel 06/18/2024 12:07 PM THREAD WINDER - 06/18/2024 12:40 PM THREAD WINDER Hospital Encounter [facility] [address] [place] [address] Tony Mcelroy MD Discharge Disposition: Home or Self Care (Routine Discharge) 06/18/2024 Travel 06/10/2024 1:43 PM THREAD WINDER - 06/10/2024 3:03 PM THREAD WINDER Hospital Encounter [facility] [address] [place] [address] Tony Mcelroy MD Discharge Disposition: Home or Self Care (Routine Discharge) 06/10/2024 Travel 06/03/2024 2:24 PM THREAD WINDER - 06/03/2024 3:10 PM THREAD WINDER Hospital Encounter [facility] [address] [place] [address] Tony Mcelroy MD Discharge Disposition: Home or Self Care (Routine Discharge) 06/03/2024 Travel from Last 3 Months Family History Medical History Relation Comments PA Father No Known Problems Mother meninigitis Sister [...] from your doctor or pharmacy? Never 09/18/2023 [facility] Utilities Answer Date Recorded In the past 12 months has e [employer], gas, oil, or water company threatened to [...] week 08/13/2023 How often do you attend [facility] or jew services? 1 to 4 times per year 08/13/2023 Do you belong to any clubs o r organizations such as hoahaoism groups, unions, fraternal or athletic groups, or [...] medical care, and heating? Patient declined 10/27/2023 [facility] - Occupational Stress Questionnaire Answer Date Recorded [...] place to sleep or slept in a mcc (including now)? No 03/29/2023 Housing Stability Vital [...] any time in the past 12 m [facility], were you homeless or living in a mcc (including now)? 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 Procedure Name Priority Date/Time Associated Diagnosis Comments [...] PRO-BRAIN NATRIURETIC PEPTIDE Routine 06/24/2024 3:05 PM THREAD WINDER Chronic systolic heart failure (CMS/HCC HHS/HCC) COMPREHENSIVE METABOLIC PANEL Routine 06/24/2024 3:05 PM THREAD WINDER Chronic systolic heart failure (CMS/HCC HHS/HCC) from [...] us Tony Mcelroy MD LABORATORY Final Result [facility] [address] [place] [address], [place] [phone] * (ABNORMAL) BASIC METABOLIC PANEL (08/10/2024 11:30 AM CDT) GLUCOSE 234(H) 70 - 99 MG/DL 08/10/2024 2:16 PM CDT [facility] BUN 21(H) 7 - 18 MG/DL 08/10/2024 2:16 PM CDT [facility] CREATININE S/P/B 0.74 0.7 - 1.3 MG/DL 08/10/2024 2:16 PM CDT [facility] SODIUM S/P/B 134(L) 136 - 145 MMOL/L 08/10/2024 2:16 PM CDT [facility] POTASSIUM S/P/B 2.9(LL) 3.5 - 5.1 MMOL/L 08/10/2024 2:30 PM CDT [facility] Comment: Critical Result(s) Called at: 14:27:57 on 08/10/2024 by: Rabia Denny to and read back by:VIRGIE BEARD RN [facility] S/P/B 92(L) 100 - 108 MMOL/L 08/10/2024 2:16 PM CDT [facility] CO2 34.9(H) 21 - 32 MMOL/L 08/10/2024 2:16 PM CDT [facility] CALCIUM S/P/B 9.5 8.5 - 10.1 MG/DL 08/10/2024 2:16 PM CDT [facility] ANION GAP 7.1 5 - 15 MMOL/L 08/10/2024 2:16 PM CDT [facility] BUN CREATININE RATIO 28.4(H) 6 - 26 08/10/2024 2:16 PM CDT [facility] GFR ESTIMATE >90 >90 ML/MIN/1.7 3 M2 08/10/2024 2:16 PM CDT [facility] Comment: NOTE: eGFR is not calculated for patients <18 years of age. This is an estimated GFR calculation using the new CKD EPI creatinine equation without race and so does not require a correction factor for race. This estimated GFR should not be used for calculating drug doses. 08/10/2024 11:3 0 AM CDT Tony Mcelroy MD LABORATORY Final Result [facility] [address] [place] [address], [place] [phone] * (ABNORMAL) CBC W/DIFF AUTOMATED (08/10/2024 11:30 AM CDT) WBC 6.23 4.4 - 11.0 x10'3/uL 08/10/2024 1:21 PM CDT [facility] RBC 3.49(L) 4.50 - 5.90 x10'6/uL 08/10/2024 1:21 PM CDT [facility] HGB 10.5(L) 14.0 - 17.5 G/DL 08/10/2024 1:21 PM CDT [facility] HCT 32.0(L) 41.5 - 50.4 % 08/10/2024 1:21 PM T [facility] MCV 91.7 80.0 - 96.0 FL 08/10/2024 1:21 PM CDT [facility] MCH 30.1 26.5 - 31.4 PG 08/10/2024 1:21 PM T [facility] MCHC 32.8 31.9 - 34.8 G/DL 08/10/2024 1:21 PM T [facility] RDW 15.6(H) 12.3 - 14.3 % 08/10/2024 1:21 PM [facility] PLT 155 151 - 353 x10'3/uL 08/10/2024 1:21 PM T [facility] MPV 10.7 9.7 - 11.9 FL 08/10/2024 1:21 PM T [facility] RBC MORPHOLOGY NORMAL 08/10/2024 1:21 PM [facility] PLT MORPH. NORMAL 08/10/2024 1:21 PM T [facility] WBC MORPHOLOGY NORMAL 08/10/2024 1:21 PM T [facility] LYMPHOCYTES % 19.4 15.8 - 45.0 % 08/10/2024 1:21 PM T [facility] NEUTROPHILS % 69.7 42.1 - 71.9 % 08/10/2024 1:21 PM T [facility] MONOCYTES % 9.0 5.7 - 12.5 % 08/10/2024 1:21 PM T [facility] EOSINOPHILS 1.1 0.0 - 5.6 % 08/10/2024 1:21 PM CDT [facility] BASOPHILS 0.5 0.0 - 1.3 % 08/10/2024 1:21 PM CDT [facility] ABS. NEUTROPHILS 4.34 1.40 - 6.00 x10'3/uL 08/10/2024 1:21 PM CDT [facility] IMMATURE GRANS % 0.3 0.0 - 0.5 % 08/10/2024 1:21 PM CDT [facility] ABS. LYMPHOCYTES 1.21 0.80 - 4.70 x10'3/uL 08/10/2024 1:21 PM CDT [facility] 08/10/2024 11:3 0 AM CDT Tony Mcelroy MD LABORATORY Final Result [facility] [address] [place] [address], [place] [phone] * (ABNORMAL) COMPREHENSIVE METABOLIC PANEL (07/22/2024 2:15 PM CDT) Only the most recent of2 resultswithin the time period is included. GLUCOSE 474(HH) 70 - 99 MG/DL 07/22/2024 3:37 PM CDT [facility] Comment: Critical Result(s) Called at: 15:31:41 on 07/22/2024 by: KEI FORBES to and read back by: [employer] [facility] [employer] BUN 25(H) 7 - 18 MG/DL 07/22/2024 3:37 PM CDT [facility] CREATININE S/P/B 1.07 0.7 - 1.3 MG/DL 07/22/2024 3:37 PM CDT [facility] SODIUM S/P/B 132(L) 136 - 145 MMOL/L 07/22/2024 3:37 PM CDT [facility] POTASSIUM S/P/B 5.2(H) 3.5 - 5.1 MMOL/L 07/22/2024 3:37 PM T [facility] CHLORIDE S/P/B 98(L) 100 - 108 MMOL/L 07/22/2024 3:37 PM T [facility] CO2 27.3 21 - 32 MMOL/L 07/22/2024 3:37 PM T [facility] CALCIUM S/P/B 9.0 8.5 - 10.1 MG/DL 07/22/2024 3:37 PM T [facility] BILIRUBIN TOTAL S/P/B 0.2 0.2 - 1.2 MG/DL 07/22/2024 3:37 PM T [facility] TOTAL PROTEIN S/P/B 6.3(L) 6.4 - 8.2 G/DL 07/22/2024 3:37 PM T [facility] ALBUMIN S/P/B 3.7 3.4 - 5.0 G/DL 07/22/2024 3:37 PM [facility] AST 13(L) 15 - 37 U/L 07/22/2024 3:37 PM [facility] ALT 24 16 - 60 U/L 07/22/2024 3:37 PM T [facility] ALKALINE PHOSPHATASE S/P/B 55 50 - 136 U/L 07/22/2024 3:37 PM T [facility] ANION GAP 6.7 5 - 15 MMOL/L 07/22/2024 3:37 PM T [facility] BUN CREATININE RATIO 23.4 6 - 26 07/22/2024 3:37 PM T [facility] A/G RATIO 1.4 1.0 - 2.0 RATIO 07/22/2024 3:37 PM CDT [facility] GFR ESTIMATE >90 >90 ML/MIN/1.7 3 M2 07/22/2024 3:37 PM CDT [facility] Comment: NOTE: eGFR is not calculated for patients <18 years of age. This is an estimated GFR calculation using the new CKD EPI creatinine equation without race and so does not require a correction factor for race. This estimated GFR should not be used for calculating drug doses. 07/22/2024 2:15 PM CDT us Mary Ellen Mahmood MD LABORATORY Final Result [facility] [address] [place] [address], from Last 3 Months Insurance [facility] Advance Directives * Full Code [...] 9:04 PM 09/09/2023 6:46 PM Care Teams Oral Surgery Assistant Relationship Specialty Start Date End Date Pelon Rodriguez MD [address] [place] [phone] PCP - General FAMILY PRACTICE 08/03/24 Tony Mcelroy MD [address] [address] CARDIOVASCULAR DISEASE 04/29/24 Bar Alegria MD [address] [address] INTERNAL MEDICINE 04/29/24
--- OUTSIDE RECORDS SUMMARY | 2024-08-29 09:55 | XMS_ITS | Continuity of Care Document ---
Author Organization [facility] Address [address] [place] [address], [place] [address] Phone Care Team Providers Care Friction Paint Machine Tender Name Role Phone Eddie Rodney MD Unavailable Unavailable Advance Directives Directive Yes / No Effective Date File Name No Information Encounters Encounter Description Practice Location Reason(s) For Visit Diagnoses Date Provider Providers Copied on Encounter [facility], [address] [place] [address], [id number], [phone] [facility] No Information Rashaun Morgan. [address], [place], [id number], [place]. tel:[phone] Family History Family Member Type Diagnosis Age At Onset No Information Payers Payer name Insurance type Covered alliance party ID Authoriza tion(s) No Information Social [...]
--- OUTSIDE RECORDS SUMMARY | 2024-08-29 09:55 | XMS_ITS | Continuity of Care Document ---
Author Organization [facility] Address [address] [place] [address], [place] [address] Phone Care Team Providers Care Assistance Specialist Name Role Phone Eddie Rodney MD Unavailable Unavailable Advance Directives Directive Yes / No Effective Date File Name No Information Encounters Encounter Description Practice Location Reason(s) For Visit Diagnoses Date Provider Providers Copied on Encounter [facility], [address] [place] [address], [id number], [phone] [facility] No Information Rashaun Morgan. [address], [place], [id number], [place]. tel:[phone] Family History Family Member Type Diagnosis Age [...]
--- OUTSIDE RECORDS SUMMARY | 2024-08-29 09:55 | XMS_ITS | Clinical Summary ---
Author Organization [facility] Address [address] [place] [address] Care Team Providers Care Business Practices Supervisor Name Role Phone An Kamara INO-NEGATIVE TURNER APPRENTICE Primary Care Provider + Source Comments [facility],non-owned Affiliates and Associated Physician Practices is amultiple site organization consisting of ambulatory clinics and hospital sitesin [place], [place], [place] and [place]. This disclosure is being madepursuant to the Care Everywhere program and may not contain all information available regarding this patient. Last updated 18.[facility] Allergies Active Allergy Reactions Criticality Noted Date [...] Reasons: Diabetes 1 Each 07/09/2024 12:25 PM [facility] 5 Active blood glucose test stripIndicatio ns:Diabetes Mellitus USE 1 STRIP ONCE DAILY 100 strip 1 07/09/2024 12:25 PM [facility] 5 Active lancetsIndicat ions:Diabetes Mellitus USE 1 LANCET ONCE DAILY 100 Each 1 07/09/2024 12:25 PM [facility] 5 Active Insulin Pen Needle 32G X 4 MM MISCIndication s:Diabetes Mellitus Use 1 Each ONCE DAILY 100 Each 1 07/09/2024 12:25 PM [facility] 5 Active milrinone (Primacor) 20-5 MG/100ML-% infusion 6.35 mcg/min by Intravenous route continuous 5 Active pantoprazole EC (Protonix) 40 MG tablet Take 1 (one) tablet by mouth 2 times daily 30 tablet 5 Active Lantus SoloStar pen Inject 5 (five) Units subcutaneously at bedtime If blood glucose greater than 140 15 mL 07/09/2024 12:25 PM [facility] Active Active Problems Problem Noted Date Diagnosed [...] Department Care Team Description 07/07/2024 4:31 PM [facility] Anesthesia Event [facility] [address] [place] [address] Tacho Pelaez DO Brown, Gina F, MD 07/07/2024 3:44 PM [facility] - 07/07/2024 4:14 PM [facility] Surgery [facility] [address] [place] [address] Moy Zarco MD EGD(>1630) 06/30/2024 2:11 PM [facility] - 07/09/2024 1:53 PM [facility] Hospital Encounter [facility] 6S ACUTE [address] [place] [address] Daryl Julian MD Heis, Farah, MD Chinnery, [...] and heating? Not hard at all 07/02/2024 [facility] - Occup[facility] Stress [...] place to sleep or slept in a correction (including now)? No 02/09/2024 Housing Stability Vital Sign Answer Bryan e Recorded In the last 12 months, was t here a time when you were not able to pay the mortgage or rent on time? Yes 07/02/2024 In the past 12 months, how m any times have you moved where you were living? 2 07/02/2024 At any time in the past [facility], were you homeless or living in a correction (including now)? Yes 07/02/2024 Sex and Gender Information Value Date Recorded Sex Assigned at Not on file Legal Sex Male 11:36 AM CDT Gender Identity Not on file Sexual Orientation Not on file Last Filed Vital Signs Vital Sign Reading Time Taken Comments Blood Pressure 92/64 07/09/2024 4:46 AM [facility] Pulse 83 07/09/2024 4:46 AM [facility] Temperature 36.9 C (98.5 F) 07/09/2024 4:46 AM [facility] Respiratory Rate 20 07/09/2024 4:46 AM [facility] Oxygen Saturation 99% 07/09/2024 12: 22 PM [facility] Inhaled Oxygen Concentration 40% 02/09/2024 9 :00 AM CDT Weight 61.1 kg (134 lb 12.8 oz) 07/08/2024 6:32 AM [facility] Height 182.9 cm (6') 06/30/2024 8:17 PM [facility] Body Mass Index 18.28 06/30/2024 8:17 PM [facility] Plan of Treatment Health Maintenance Due Date [...] this topic Medical Devices Implanted Type Area Railway Track Worker Device Identifier Shelf Expiration Date Model / Serial / Lot Set Vntrc Ast 17.4x13.8in Impella Cp 9.3 - [id number] Implanted:Qty: 1 on 02/01/2024 by Latha Mahmood MD at [facility] [employer] 10/02/2025 [id number] / [id number] / [id number] Graft Cv 10mm 30cm [facility] [address] Polystr 2 Vlr - [id number] Implanted:Qty: 1 on 02/05/2024 by Heriberto Choudhary MD at [facility] [employer] 10/02/2028 [id number] / [id number] Dev Vntrc Ast Impella 5.5 Smartassist Implanted:Qty: 1 on 02/05/2024 by Heriberto Choudhary MD at [facility] N/A: Heart [employer] 10/02/2025 [id number] / / Patch Cv 8x.8cm [employer] Decellularized Implanted:Qty: 1 on 02/05/2024 by Heriberto Choudhary MD at [facility] Left: Arterial [employer] [id number] 04/19/2025 [id number] / / [id number] Description:implanted in lef t femoral artery and left subclavian artery Procedures Procedure Name Priority Date/Time Associated Diagnosis Comments PREPARE RBC LEUKOREDUCED UNIT Routine 07/10/2024 1:17 AM [facility] GLUCOSE - POINT OF CARE Routine 07/09/2024 11:52 AM [facility] GLUCOSE - POINT OF CARE Routine 07/09/2024 8:25 AM [facility] HEMOGLOBIN AM Draw 07/09/2024 6:01 AM [facility] COMPREHENSIVE METABOLIC PANEL AM Draw 07/09/2024 12:13 AM [facility] Idiopathic acute pancreatitis, unspecified complication status HEMOGLOBIN AM Draw 07/09/2024 12:13 AM [facility] HEMOGLOBIN AM Draw 07/08/2024 6:44 PM [facility] GLUCOSE - POINT OF CARE Routine 07/08/2024 5:34 PM [facility] HEMOGLOBIN AM Draw 07/08/2024 12:15 PM [facility] GLUCOSE - POINT OF CARE Routine 07/08/2024 11:56 AM [facility] GLUCOSE - POINT OF CARE Routine 07/08/2024 7:35 AM [facility] HEMOGLOBIN AM Draw 07/08/2024 6:29 AM [facility] COMPREHENSIVE METABOLIC PANEL AM Draw 07/08/2024 12:17 AM [facility] Idiopathic acute pancreatitis, unspecified complication status HEMOGLOBIN AM Draw 07/08/2024 12:17 AM [facility] GLUCOSE - POINT OF CARE Routine 07/07/2024 10:17 PM [facility] HEMOGLOBIN AM Draw 07/07/2024 5:53 PM [facility] PATHOLOGY TISSUE Routine 07/07/2024 4:39 PM [facility] Gastrointestinal hemorrhage, unspecified gastrointestinal hemorrhage type IN ED EGD FLEX TRANSORAL DX 07/07/2024 4:26 PM [facility] Gastrointestinal hemorrhage, unspecified gastrointestinal hemorrhage type EGD Routine 07/07/2024 4:14 PM [facility] GLUCOSE - POINT OF CARE Routine 07/07/2024 4:07 PM [facility] GLUCOSE - POINT OF CARE Routine 07/07/2024 11:57 AM [facility] HEMOGLOBIN AM Draw 07/07/2024 11:21 AM [facility] GLUCOSE - POINT OF CARE Routine 07/07/2024 7:31 AM [facility] HEMOGLOBIN AM Draw 07/07/2024 5:57 AM [facility] COMPREHENSIVE METABOLIC PANEL AM Draw 07/07/2024 1:25 AM [facility] Idiopathic acute pancreatitis, unspecified complication status HEMOGLOBIN AM Draw 07/07/2024 1:25 AM [facility] HEMOGLOBIN AM Draw 07/06/2024 8:00 PM [facility] GLUCOSE - POINT OF CARE Routine 07/06/2024 5:[address] ANGIO ABDOMEN PELVIS STAT 07/06/2024 4:53 PM [facility] Idiopathic acute pancreatitis, unspecified complication status Anemia, unspecified type PREPARE RBC LEUKOREDUCED UNIT Routine 07/06/2024 4:18 PM [facility] JOHN DIRECT STAT 07/06/2024 2:46 PM [facility] TYPE + SCREEN PANEL Routine 07/06/2024 2 :46 PM [facility] HAPTOGLOBIN STAT 07/06/2024 2:46 PM [facility] VITAMIN B12 BRENDA 07/06/2024 2:46 PM [facility] FOLATE BRENDA 07/06/2024 2:46 PM [facility] IRON + TRANSFERRIN PANEL STAT 07/06/2024 2:46 PM [facility] FERRITIN BRENDA 07/06/2024 2:46 PM [facility] RETIC COUNT STAT 07/06/2024 2:46 PM [facility] BILIRUBIN TOTAL+DIRECT BLOOD PANEL STAT 07/06/2024 2:46 PM [facility] LDH BLOOD STAT 07/06/2024 2:46 PM [facility] CBC W AUTO DIFFERENTIAL STAT 07/06/2024 11:50 AM [facility] GLUCOSE - POINT OF CARE Routine 07/06/2024 11:25 AM [facility] GLUCOSE - POINT OF CARE Routine 07/06/2024 7:59 AM [facility] PHOSPHORUS BLOOD Routine 07/06/2024 4:32 AM [facility] MAGNESIUM BLOOD Routine 07/06/2024 4:32 AM [facility] CBC W/O DIFFERENTIAL AM Draw 07/06/2024 4:32 AM [facility] COMPREHENSIVE METABOLIC PANEL AM Draw 07/06/2024 4:32 AM [facility] Idiopathic acute pancreatitis, unspecified complication status GLUCOSE - POINT OF CARE Routine 07/05/2024 4:34 PM [facility] C-PEPTIDE Routine 07/05/2024 1:52 PM [facility] LIPASE BLOOD Routine 07/05/2024 1:52 PM [facility] HEMOGLOBIN A1C Routine 07/05/2024 1:52 PM [facility] GLUCOSE - POINT OF CARE Routine 07/05/2024 12:15 PM [facility] GLUCOSE - POINT OF CARE Routine 07/05/2024 10:55 AM [facility] XR CHEST 1VW PORTABLE Routine 07/05/2024 9:52 AM [facility] Idiopathic acute pancreatitis, unspecified complication status PT EVAL AND TREAT Routine 07/05/2024 8:4 9 AM [facility] EKG 12-LEAD Routine 07/05/2024 8:40 AM [facility] Idiopathic acute pancreatitis, unspecified complication status GLUCOSE - POINT OF CARE Routine 07/05/2024 8:02 AM [facility] COMPREHENSIVE METABOLIC PANEL AM Draw 07/05/2024 1:55 AM [facility] Idiopathic acute pancreatitis, unspecified complication status COMPREHENSIVE METABOLIC PANEL AM Draw 07/04/2024 2:45 AM [facility] Idiopathic acute pancreatitis, unspecified complication status CBC W/O DIFFERENTIAL AM Draw 07/03/2024 1:12 AM [facility] PHOSPHORUS BLOOD Routine 07/03/2024 1:1 2 AM [facility] MAGNESIUM BLOOD Routine 07/03/2024 1:12 AM [facility] COMPREHENSIVE METABOLIC PANEL AM Draw 07/03/2024 1:12 AM [facility] Idiopathic acute pancreatitis, unspecified complication status XR ABDOMEN KUB PORTABLE STAT 07/02/2024 8:41 AM [facility] Ileus CBC W/O DIFFERENTIAL AM Draw 07/02/2024 1:13 AM [facility] Ileus MAGNESIUM BLOOD Routine 07/02/2024 1:13 AM [facility] Ileus COMPREHENSIVE METABOLIC PANEL AM Draw 07/02/2024 1:13 AM [facility] Idiopathic acute pancreatitis, unspecified complication status XR ABDOMEN KUB PORTABLE STAT 07/01/2024 1:12 PM [facility] Ileus HEPATIC FUNCTION PANEL Routine 07/01/2024 4:22 AM [facility] Idiopathic acute pancreatitis, unspecified complication status PHOSPHORUS BLOOD Routine 07/01/2024 4:22 AM [facility] Idiopathic acute pancreatitis, unspecified complication status MAGNESIUM BLOOD Routine 07/01/2024 4:22 AM [facility] Idiopathic acute pancreatitis, unspecified complication status CBC W/O DIFFERENTIAL Routine 07/01/2024 4:22 AM [facility] Idiopathic acute pancreatitis, unspecified complication status BASIC METABOLIC PANEL (CALCIUM TOTAL) Routine 07/01/2024 4:22 AM [facility] Idiopathic acute pancreatitis, unspecified complication status EKG 12-LEAD Routine 07/01/2024 3:16 AM [facility] Idiopathic acute pancreatitis, unspecified complication status EKG 12-LEAD Routine 07/01/2024 3:14 AM [facility] Idiopathic acute pancreatitis, unspecified complication status EKG 12-LEAD Routine 07/01/2024 3:02 AM [facility] Idiopathic acute pancreatitis, unspecified complication status CT ABDOMEN PELVIS W CONTRAST STAT 06/30/2024 5:02 PM [facility] Abdominal pain, unspecified abdominal location TROPONIN-I HIGH SENSITIVE REFLEX 1HOUR Timed 06/30/2024 3:57 PM [facility] URINE DRUG SCREEN IMMUNOASSAY STAT 06/30/2024 2:52 PM [facility] URINALYSIS REFLEX TO MICROSCOPIC NO CULTURE STAT 06/30/2024 2:52 PM [facility] ALCOHOL ETHYL BLOOD STAT 06/30/2024 2 :48 PM [facility] B-TYPE NATRIURETIC PEPTIDE STAT 06/30/2024 2:48 PM [facility] TROPONIN-I HIGH SENSITIVE BASELINE + 1HR STAT 06/30/2024 2:48 PM [facility] PT-INR SLH STAT 06/30/2024 2:48 PM [facility] MAGNESIUM BLOOD STAT 06/30/2024 2:48 PM [facility] LIPASE BLOOD STAT 06/30/2024 2:48 PM [facility] LACTIC ACID BLOOD REFLEX TO REPEAT STAT 06/30/2024 2:48 PM [facility] COMPREHENSIVE METABOLIC PANEL STAT 06/30/2024 2:48 PM [facility] CBC W AUTO DIFFERENTIAL STAT 06/30/2024 2:48 PM [facility] EKG 12-LEAD STAT 06/30/2024 2:33 PM [facility] Chest pain, unspecified type XR CHEST 1VW PORTABLE STAT 06/30/2024 2:21 PM [facility] Chest pain, unspecified type HIV-1 HIV-2 ANTIBODY + HIV P24 AG PANEL Routine 02/03/2024 8:26 PM CDT from Last 3 Months or Most Recently Relevant to Health Maintenance Results * PREPARE (CROSSMATCH) RBC UNIT(S), 1 Units (07/10/2024 1:17 AM [facility]) Only the most recent of2 resultswithin the time period is included. Pathologist [facility] Unit Description N/A [facility] Blood Bank BLOOD SPECIMEN / Unknown 07/06/2024 2:55 PM [facility] Christiano Graham MD LAB - BLOOD BANK ORDERA BLES Final Result [facility] [address] [place] [address], [facility] [phone] * (ABNORMAL) GLUCOSE - POINT OF CARE (07/09/2024 11:52 AM [facility]) Only the most recent of16 resultswithin the time period is included. Pathologist [facility] Glucose WB/POC 203(H) 70 - 99 mg/dL 07/09/2024 12:00 PM [facility] Specimen Type Cap Fingerstick 2024 12:00 PM [facility] Blood BLOOD SPECIMEN / Unknown 07/09/2024 11:52 AM [facility] 07/09/2024 12:00 PM [facility] us Piotr Christine MD LAB - POINT OF CARE ORDERAB LES Final Result Performing Organization Address City/[facility]/ZIP Co de Phone Number [facility] [address] [place] [address], [place] [phone] * (ABNORMAL) HEMOGLOBIN (07/09/2024 6:01 AM [facility]) Only the most recent of11 resultswithin the time period is included. Hemoglobin 7.7(L) 13.3 - 17.5 g/dL 07/09/2024 6:14 AM [facility] Blood BLOOD SPECIMEN / Unknown Venipuncture / Unknown 07/09/2024 6:01 AM [facility] 07/09/2024 6:05 AM [facility] us Christiano Graham MD LAB - HEMATOLOGY ORDERA BLES Final Result Performing Organization Address City/[facility]/ZIP Co de Phone Number [facility] [address] [place] [address], [place] [phone] * (ABNORMAL) COMPREHENSIVE METABOLIC PANEL (07/09/2024 12:13 AM [facility]) Only the most recent of9 resultswithin the time period is included. BUN 18 7 - 26 mg/dL 07/09/2024 12:40 AM [facility] Creatinine 0.90 0.71 - 1.16 mg/dL 07/09/2024 12:40 AM [facility] Sodium 137 136 - 145 mmol/L 07/09/2024 12:40 AM [facility] Potassium 4.5 3.5 - 4.5 mmol/L 07/09/2024 12:40 AM [facility] Chloride 101 98 - 107 mmol/L 07/09/2024 12:40 AM [facility] CO2 29 22 - 29 mmol/L 07/09/2024 12:40 AM [facility] Glucose 241(H) 70 - 99 mg/dL 07/09/2024 12:40 AM [facility] Calcium 9.0 8.4 - 10.2 mg/dL 07/09/2024 12:40 AM [facility] Protein Total 5.6(L) 6.0 - 8.3 g/dL 07/09/2024 12:40 AM [facility] Albumin 3.7 3.4 - 5.0 g/dL 07/09/2024 12:40 AM [facility] Bilirubin Total 0.2 0.2 - 1.2 mg/dL 07/09/2024 12:40 AM [facility] Alkaline Phosphatase 47 40 - 150 U/L 07/09/2024 12:40 AM [facility] ALT 33 5 - 55 U/L 07/09/2024 12:40 AM [facility] AST 25 5 - 34 U/L 07/09/2024 12:40 AM [facility] Anion Gap 7 6 - 16 07/09/2024 12:40 AM [facility] BUN/Creatinine Ratio 20 7 - 23 07/09/2024 12:40 AM [facility] Osmolality Calculated 294 275 - 295 mOsm/kg 07/09/2024 12:40 AM [facility] Albumin/Globulin Ratio 1.9 1.1 - 2.3 07/09/2024 12:40 AM [facility] eGFR by CKD-EPI >90 >=90 mL/min/1.7 3 m2 07/09/2024 12:40 AM [facility] Blood BLOOD SPECIMEN / Unknown Venipuncture / Unknown 07/09/2024 12:13 AM [facility] 07/09/2024 12:16 AM [facility] us Jamel Cavazos MD LAB - CHEMISTRY ORDERABLES Fin al Result [facility] [address] [place] [address], [facility] [phone] * PATHOLOGY TISSUE (07/07/2024 4:39 PM [facility]) Case Report Surgical Pathology Report Case: [id number] Authorizing Provider: Moy Zarco MD Collected: 07/07/2024 04:39 PM Ordering Location: [facility] Received: 07/08/2024 07:20 AM Pathologist: Yaquelin Shook MD Specimen: Gastric, Biopsy - R/O H pylori 07/09/2024 3:19 PM [facility] Final Diagnosis Stomach, biopsy (A): - Reactive gastropathy and ulcer debris - Negative for H. pylori 07/09/2024 3:19 PM [facility] Microscopic Description and Comment The [...] controls), which is negative. 07/09/2024 3:19 PM [facility] Clinical History The patient is a 34-year-old man with melena. Operative procedure/findings: EGD - nonbleeding gastric ulcer at the pylorus with pigmented material and mild erosive gastritis, biopsied to rule out H. pylori 07/09/2024 3:19 PM [facility] Gross Description The requisition and specimen(s) are identified with the patient's name Douglas Wright . Received in formalin, specimen A, consists of multiple guy-pink irregular tissue fragments averaging 0.2 cm in greatest dimension and aggregating to 0.5 x 0.4 x 0.1 cm which are submitted in toto in a single cassette labeled A1. RB 07/09/2024 3:19 PM [facility] Pathologist Location at [facility] 07/09/2024 3:19 PM [facility] Disclaimer The performance characteristics of all immunohistochemical and indirect immunofluorescence stains (if any) cited in this report were determined by the Histopathology Laboratory of [facility]. Some of these tests were developed by [...] the attending (teaching) pathologist. 07/09/2024 3:19 PM [facility] Embedded Images 07/09/2024 3:19 PM [facility] Biopsy, NOS GASTRIC CONTENTS SPECIMEN / Unknown 07/07/2024 4:39 PM [facility] 07/08/2024 7:20 AM [facility] Comment:Pre-op diagnosis: Gastrointestinal hemorrhage, unspecified gastrointestinal hemorrhage type [K92.2] us Moy Zarco MD LAB - PATHOLOGY/CYTOLOGY SHREYA BOJORQUEZ Final Result Performing Organization Address City/State/[facility] Co de Phone Number [facility] [address] [phone] * EGD (07/07/2024 4:14 PM [facility]) Report Endoscopy POC Endoscopy Department Report __ [...] non-montero portions. 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 All rights reserved. The codes documented in this report are preliminary and upon production boring machine operator review may be revised to meet current compliance requirements. Moy Zarco MD 07/07/2024 5:01:11 PM Note Initiated On: 07/07/2024 4:14 PM Number of Addenda: 0 [facility] [address] [place] [id number] [facility] 07/07/2024 4:14 PM [facility] us Clayton Chowdary MD GI PROCEDURE ORDERABLES Edited R esult - Final [facility] * TRANSFUSE RED BLOOD CELL LEUKOREDUCED UNIT(S) (07/06/2024 7:32 PM [facility]) us Christiano Graham MD NURSING - BLOOD PROD TR ANSFUSION Final Result * CT Angio Abdomen Pelvis (07/06/2024 4:53 PM [facility]) Anatomical Region Laterality Modality Abdomen, Pelvis Computed Tomogra phy 07/06/2024 5:20 PM [facility] Impressions 07/06/2024 5:51 PM [facility] Impression: 1.Redemonstration of pancreatic atrophic appearance with [...] 07/06/2024 5:51 PM Narrative 07/06/2024 5:51 PM [facility] PROCEDURE: CT ANGIO ABDOMEN PELVIS, DATE/TIME OF EXAM: 07/06/2024 4:54 PM, LOCATION [facility] INDICATION: K85.00: Idiopathic acute pancreatitis, unspecified complication [...] PELVIS, DATE/TIME OF EXAM: 07/06/2024 4:54PM, LOCATION [facility] INDICATION: K85.00: Idiopathic acute pancreatitis, unspecified complication [...] TYPE + SCREEN PANEL (07/06/2024 2:46 PM [facility]) Pathologist [facility] Antibody Screen NEG 4:07 PM [facility] ABO Rh A POS 07/06/2024 4:07 PM [facility] Blood Bank BLOOD SPECIMEN / Unknown Venipuncture / Unknown 07/06/2024 2:46 PM [facility] 07/06/2024 3:58 PM [facility] Christiano Graham MD LAB - BLOOD BANK ORDERA BLES Final Result [facility] [address] [place] [address], [place] [phone] * DIRECT JOHN (07/06/2024 2:46 PM [facility]) Pathologist [facility] Direct John (BRYAN) NEG 07/06/2024 3:54 PM [facility] Blood BLOOD SPECIMEN / Unknown Venipuncture / Unknown 07/06/2024 2:46 PM [facility] 07/06/2024 2:55 PM [facility] Result [facility] Christiano Graham MD LAB - BLOOD BANK ORDERA BLES Final Result Performing Organization Address [facility]/ZIP Co de Phone Number [facility] [address] [place] [address], [facility] [phone] * (ABNORMAL) RETIC COUNT (07/06/2024 2:46 PM [facility]) Reticulocyte Percent 4.48(H) 0.50 - 2.40 % 07/06/2024 3:05 PM [facility] Reticulocyte Absolute 0.0869 0.0200 - 0.1100 x10E6/uL 07/06/2024 3:05 PM [facility] Ret-HE 36.6 29.0 - 37.9 pg 07/06/2024 3:05 PM [facility] Immature Reticulocyte Fraction 18.2(H) 1.8 - 15.2 % 07/06/2024 3:05 PM [facility] Blood BLOOD SPECIMEN / Unknown Venipuncture / Unknown 07/06/2024 2:46 PM [facility] 07/06/2024 2:52 PM [facility] Result [facility] Christiano Graham MD LAB - HEMATOLOGY ORDERA BLES Final Result Performing Organization Address City/[facility]/ZIP Co de Phone Number [address] [address], [place] [phone] * LDH BLOOD (07/06/2024 2:46 PM [facility]) Pathologist [facility] LDH Total 227 125 - 243 Units/L 07/06/2024 3:22 PM [facility] Blood BLOOD SPECIMEN / Unknown Venipuncture / Unknown 07/06/2024 2:46 PM [facility] 07/06/2024 2:52 PM [facility] Result [facility] Christiano Graham MD LAB - CHEMISTRY ORDERAB LES Final Result [address] [address], [place] [phone] * FOLATE (07/06/2024 2:46 PM [facility]) [facility] Folate 17.8 7.0 - 31.4 ng/mL 07/06/2024 3:54 PM [facility] Blood BLOOD SPECIMEN / Unknown Venipuncture / Unknown 07/06/2024 2:46 PM [facility] 07/06/2024 2:52 PM [facility] Christiano Graham MD LAB - CHEMISTRY ORDERAB LES Final Result Performing Organization Address [facility]/ZIP Co de Phone Number [address] [address], [place] [phone] * BILIRUBIN TOTAL+DIRECT BLOOD PANEL (07/06/2024 2:46 PM [facility]) [facility] Bilirubin Total 0.2 0.2 - 1.2 mg/dL 08/2024 3:22 PM [facility] Bilirubin Conjugated 0.1 0.1 - 0.5 mg/dL 07/06/2024 3:22 PM [facility] Bilirubin Unconjugated 0.1 Unconjugated Bilirubin is a calculated value: Reference ranges have not been established. mg/dL 07/06/2024 3:22 PM [facility] Blood BLOOD SPECIMEN / Unknown Venipuncture / Unknown 07/06/2024 2:46 PM [facility] 07/06/2024 2:52 PM [facility] us Christiano Graham MD LAB - CHEMISTRY ORDERAB LES Final Result Performing Organization Address City/[facility]/ZIP Co de Phone Number [address] [address], [place] [phone] * (ABNORMAL) VITAMIN B12 (07/06/2024 2:46 PM [facility]) [facility] Vitamin B12 1,641(H) 213 - 816 pg/mL 07/06/2024 3:54 PM [facility] Blood BLOOD SPECIMEN / Unknown Venipuncture / Unknown 07/06/2024 2:46 PM [facility] 07/06/2024 2:52 PM [facility] us Christiano Graham MD LAB - CHEMISTRY ORDERAB LES Final Result Performing Organization Address [facility]/ZIP Co de Phone Number [address] [address], [place] [phone] * (ABNORMAL) IRON + TRANSFERRIN PANEL (07/06/2024 2:46 PM [facility]) Iron 47(L) 50 - 175 ug/dL 07/06/2024 3:51 PM [facility] Transferrin 210 174 - 382 mg/dL 07/06/2024 3:51 PM [facility] Transferrin Saturation % 18 16 - 50 % 07/06/2024 3:51 PM [facility] TIBC Calculated 263 240 - 450 ug/dL 07/06/2024 3:51 PM [facility] Blood BLOOD SPECIMEN / Unknown Venipuncture / Unknown 07/06/2024 2:46 PM [facility] 07/06/2024 2:49 PM [facility] us Christiano Graham MD LAB - CHEMISTRY ORDERAB LES Final Result Performing Organization Address City/[facility]/ZIP Co de Phone Number [address] [address], [place] [phone] * HAPTOGLOBIN (07/06/2024 2:46 PM [facility]) Haptoglobin 54 14 - 258 mg/dL 07/06/2024 3:51 PM [facility] Blood BLOOD SPECIMEN / Unknown Venipuncture / Unknown 07/06/2024 2:46 PM [facility] 07/06/2024 2:49 PM [facility] us Christiano Graham MD LAB - CHEMISTRY ORDERAB LES Final Result [facility] [address] [place] [address], [facility] [phone] * FERRITIN (07/06/2024 2:46 PM [facility]) [facility] Ferritin 146 22 - 275 ng/mL 07/06/2024 4:06 PM [facility] Blood BLOOD SPECIMEN / Unknown Venipuncture / Unknown 07/06/2024 2:46 PM [facility] 07/06/2024 2:49 PM [facility] us Christiano Graham MD LAB - CHEMISTRY ORDERAB LES Final Result Performing Organization Address [facility]/ZIP Co de Phone Number [facility] [address] [place] [address], [facility] [phone] * (ABNORMAL) CBC W AUTO DIFFERENTIAL (07/06/2024 11:50 AM [facility]) Only the most recent of2 resultswithin the time period is included. [facility] WBC 4.5 4.0 - 10.7 x10E9/L 07/06/2024 12:11 PM [facility] RBC Count 1.90(L) 4.30 - 5.80 x10E12/L 07/06/2024 12:11 PM [facility] Hemoglobin 6.2(L) 13.3 - 17.5 g/dL 07/06/2024 12:11 PM [facility] Hematocrit 17.4(L) 38.7 - 51.1 % 07/06/2024 12:11 PM [facility] MCV 91.6 80.0 - 98.0 fL 07/06/2024 12:11 PM [facility] MCH 32.6 26.7 - 33.6 pg 07/06/2024 12:11 PM [facility] MCHC 35.6 31.7 - 36.3 g/dL 07/06/2024 12:11 PM [facility] RDW-CV 15.9(H) 11.3 - 14.8 % 07/06/2024 12:11 PM [facility] Platelet Count 141(L) 150 - 420 x10E9/L 07/06/2024 12:11 PM [facility] MPV 9.8 7.8 - 11.4 fL 07/06/2024 12:11 PM [facility] Neutrophil % 59.8 41.0 - 74.0 % 07/06/2024 12:11 PM [facility] Lymphocyte % 26.0 17.0 - 47.0 % 07/06/2024 12:11 PM [facility] Monocyte % 11.6(H) 3.0 - 11.0 % 07/06/2024 12:11 PM [facility] Eosinophil % 1.8 0.0 - 7.0 % 07/06/2024 12:11 PM [facility] Basophil % 0.4 0.0 - 1.6 % 07/06/2024 12:11 PM [facility] Immature Granulocytes % 0.4 0.0 - 1.0 % 07/06/2024 12:11 PM [facility] Neutrophil Absolute 2.67 1.60 - 7.50 x10E9/L 07/06/2024 12:11 PM [facility] Lymphocyte Absolute 1.16 1.00 - 4.40 x10E9/L 07/06/2024 12:11 PM [facility] Monocyte Absolute 0.52 0.15 - 1.00 x10E9/L 07/06/2024 12:11 PM [facility] Eosinophil Absolute 0.08 0.00 - 0.60 x10E9/L 07/06/2024 12:11 PM [facility] Basophil Absolute 0.02 0.00 - 0.13 x10E9/L 07/06/2024 12:11 PM [facility] Blood BLOOD SPECIMEN / Unknown Venipuncture / Unknown 07/06/2024 11:50 AM [facility] 07/06/2024 12:02 PM [facility] us Christiano Graham MD LAB - HEMATOLOGY ORDERA BLES Final Result [facility] [address] [place] [address], [facility] [phone] * (ABNORMAL) CBC W/O DIFFERENTIAL (07/06/2024 4:32 AM [facility]) Only the most recent of4 resultswithin the time period is included. [facility] WBC 3.4(L) 4.0 - 10.7 x10E9/L 07/06/2024 5:29 AM [facility] RBC Count 1.97(L) 4.30 - 5.80 x10E12/L 07/06/2024 5:29 AM [facility] Hemoglobin 6.3(L) 13.3 - 17.5 g/dL 07/06/2024 5:29 AM [facility] Hematocrit 18.0(L) 38.7 - 51.1 % 07/06/2024 5:29 AM [facility] MCV 91.4 80.0 - 98.0 fL 07/06/2024 5:29 AM [facility] MCH 32.0 26.7 - 33.6 pg 07/06/2024 5:29 AM [facility] MCHC 35.0 31.7 - 36.3 g/dL 07/06/2024 5:29 AM [facility] RDW-CV 15.6(H) 11.3 - 14.8 % 07/06/2024 5:29 AM [facility] Platelet Count 138(L) 150 - 420 x10E9/L 07/06/2024 5:29 AM [facility] MPV 9.6 7.8 - 11.4 fL 07/06/2024 5:29 AM [facility] Blood BLOOD SPECIMEN / Unknown Venipuncture / Unknown 07/06/2024 4:32 AM [facility] 07/06/2024 5:23 AM [facility] us Jamel Cavazos MD LAB - HEMATOLOGY ORDERABLES Fi nal Result [address] [address], [facility] [phone] * (ABNORMAL) PHOSPHORUS BLOOD (07/06/2024 4:32 AM [facility]) Only the most recent of3 resultswithin the time period is included. [facility] Phosphorus 6.1(H) 2.8 - 5.1 mg/dL 07/06/2024 5:50 AM [facility] Blood BLOOD SPECIMEN / Unknown Venipuncture / Unknown 07/06/2024 4:32 AM [facility] 07/06/2024 5:23 AM [facility] Jamel Cavazos MD LAB - CHEMISTRY ORDERABLES Fin al Result Performing Organization Address City/[facility]/ZIP Co de Phone Number [address] [address], [place] [phone] * MAGNESIUM BLOOD (07/06/2024 4:32 AM [facility]) Only the most recent of5 resultswithin the time period is included. [facility] Magnesium 2.1 1.6 - 2.6 mg/dL 07/06/2024 5:50 AM [facility] Blood BLOOD SPECIMEN / Unknown Venipuncture / Unknown 07/06/2024 4:32 AM [facility] 07/06/2024 5:23 AM [facility] Jamel Cavazos MD LAB - CHEMISTRY ORDERABLES Fin al Result Performing Organization Address [facility] Co de Phone Number [address] [address], [place] [phone] * C-PEPTIDE (07/05/2024 1:52 PM [facility]) [facility] C-Peptide 1.8 0.5 - 3.3 ng/mL 07/07/2024 1:34 AM [facility] [employer] ([facility]) Comment: INTERPRETIVE INFORMATION: Serum, C-Peptide Reference Interval applies to fasting specimens. To convert to nmol/L, multiply by 0.33 Performed By: [employer] [address] [place] [id number] Change Management Coordinator: Hamilton Martinez MD, PhD CLIA Number: [id number] Blood BLOOD SPECIMEN / Unknown Venipuncture / Unknown 07/05/2024 1:52 PM [facility] 07/05/2024 1:57 PM [facility] Jamel Cavazos MD LAB - CHEMISTRY ORDERABLES Fin al Result [facility]) [address] [place] [id number] * (ABNORMAL) HEMOGLOBIN A1C (07/05/2024 1:52 PM [facility]) Hemoglobin A1c 6.0(H) <=5.6 % 07/05/2024 4:19 PM [facility] Estimated Average Glucose 126 mg/dL 07/05/2024 4:19 PM [facility] Comment: HbA1c Interpretation: Normal : < 5.7% Pre-diabetes: 5.7-6.4% Diabetes: Equal to or greater than 6.5% Test results diagnostic of diabetes should be repeated for confirmation. Treatment target values recommended by ADA and other clinical organizations should be used to evaluate metabolic control in patients. Reference: [place] [employer], Standards of Care in Diabetes -2020 In patients 70 years and older consider HbA1c target range of 7.0-7.5% (Reference: Ruddy Koenig et al. JAMDA. 2012) The Sebia assay for the measurement of HbA1c is a National Glycohemoglobin Standardization Program (NGSP) certified method. Blood BLOOD SPECIMEN / Unknown Venipuncture / Unknown 07/05/2024 1:52 PM [facility] 07/05/2024 1:59 PM [facility] Jamel Cavazos MD LAB - CHEMISTRY ORDERABLES Fin al Result Performing Organization Address City/[facility]/ZIP Co de Phone Number [facility] [address] [place] [address], [facility] [phone] * LIPASE BLOOD (07/05/2024 1:52 PM [facility]) Only the most recent of2 resultswithin the time period is included. Lipase 9 8 - 78 U/L 07/05/2024 2:26 PM [facility] Blood BLOOD SPECIMEN / Unknown Venipuncture / Unknown 07/05/2024 1:52 PM [facility] 07/05/2024 1:59 PM [facility] Narrative [facility] - 07/05/2024 2:26 PM [facility] Lipase results from the [employer]ee Alinity analyzer may not be comparable with other methodologies. us Jamel Cavazos MD LAB - CHEMISTRY ORDERABLES [facility] al Result [facility] [address] [place] [address], [facility] [phone] * XR Chest 1Vw Portable (07/05/2024 9:52 AM [facility]) Only the most recent of2 resultswithin the time period is included. Anatomical Region Laterality Modality Chest Digital Radiogra phy 07/05/2024 3:07 PM [facility] Narrative 07/05/2024 9:03 PM [facility] PROCEDURE: XR CHEST 1VW PORTABLE, DATE/TIME OF EXAM: 07/05/2024 10:05 AM, LOCATION [facility] INDICATION: K85.00: Idiopathic acute pancreatitis, unspecified complication status (HCC) ADDITIONAL CLINICAL INFORMATION: Ordering Provider Reason For Exam: pleural fluid? pna? pericardial effusion? COMPARISON: Chest radiograph 06/30/2024 FINDINGS/IMPRESSION: Lines, tubes, hardware: *A right upper extremity PICC line is redemonstrated with the tip superimposing right atrium. There is no focal consolidation, pleural effusion, or pneumothorax. The cardiomediastinal silhouette is normal. > Dictated by Yue FAGAN, [facility] (residential monitor). I, Ronal Spencer MD have personally reviewed and interpreted this examination/study. > Interpreting Provider: Ronal Spencer MD on 07/05/2024 9:03 PM Procedure Note Ronal Spencer MD - 07/05/2024 PROCEDURE: XR CHEST 1VW PORTABLE, DATE/TIME OF EXAM: 07/05/2024 10:05AM, LOCATION [facility] INDICATION: K85.00: Idiopathic acute pancreatitis, unspecified complication status (HCC) ADDITIONAL CLINICAL INFORMATION: Ordering Provider Reason For Exam: pleural fluid? pna? pericardial effusion? COMPARISON: Chest radiograph 06/30/2024 FINDINGS/IMPRESSION: Lines, tubes, hardware: *A right upper extremity PICC line is redemonstrated with the tip superimposing right atrium. There is no focal consolidation, pleural effusion, or pneumothorax. The cardiomediastinal silhouette is normal. > Dictated by Yue FAGAN, [facility] (residential monitor). I, Ronal Spencer MD have personally reviewed and interpreted this examination/study. > Interpreting Provider: Ronal Spencer MD on 07/05/2024 9:03 PM Jamel Cavazos MD DIAGNOSTIC IMAGING ORDERABLES Final Result * EKG 12-LEAD (07/05/2024 8:40 AM [facility]) Only the most recent of5 resultswithin the time period is included. Ventricular Rate 101 BPM [facility] Atrial Rate 101 BPM [facility] P-R Interval 146 ms [facility] QRS Duration ms 88 ms [facility] Q-T Interval ms 326 ms [facility] MUSE QTC Calculation (Bezet) 422 ms [facility] MUSE Calculated P [place] 32 degrees [facility] MUSE Calculated R [place] 83 degrees [facility] MUSE Calculated T [place] 32 degrees [facility] MUSE Interpretation EKG SINUS TACHYCARDIA LOW VOLTAGE QRS SEPTAL INFARCT , AGE UNDETERMINED T WAVE ABNORMALITY, CONSIDER ANTEROLATERAL ISCHEMIA ABNORMAL ECG WHEN COMPARED WITH ECG OF 01-JUL-2024 03:16, NO SIGNIFICANT CHANGE WAS FOUND Confirmed by MD STEFF, GLORIA ([id number]) on 07/05/2024 12:50:27 PM [facility] MUSE 07/05/2024 8:40 AM [facility] 07/05/2024 12:50 PM [facility] Jamel Cavazos MD ECG ORDERABLES Edited Result - Final [facility] MUSE * XR Abdomen Kub Portable (07/02/2024 8:41 AM [facility]) Only the most recent of2 resultswithin the time period is included. Anatomical Region Laterality Modality Abdomen Digital Radiogra phy 07/02/2024 2:55 PM [facility] Narrative 07/03/2024 12:53 AM [facility] PROCEDURE: XR ABDOMEN KUB PORTABLE, DATE/TIME OF EXAM: 07/02/2024 8:41 AM, LOCATION [facility] INDICATION: K56.7: Ileus (HCC) ADDITIONAL CLINICAL INFORMATION: Ordering Provider Reason For Exam: ileus Technologist Note: Additional: COMPARISON: Abdomen x-ray 07/01/2024. TECHNIQUE: Supine frontal radiograph of the abdomen. FINDINGS/ IMPRESSION: Multiple mildly dilated loops of small and large bowel located centrally may represent ileus. No evidence of free air on this supine exam. > Dictated by Juana Esquivel MD, (residential monitor). Ronal Albright MD have personally reviewed and interpreted this examination/study. > Interpreting Provider: Ronal Spencer MD on 07/03/2024 12:53 AM Procedure Note Ronal Spencer MD - 07/03/2024 PROCEDURE: XR ABDOMEN KUB PORTABLE, DATE/TIME OF EXAM: 07/02/2024 8:41AM, LOCATION [facility] INDICATION: K56.7: Ileus (HCC) ADDITIONAL CLINICAL INFORMATION: Ordering Provider Reason For Exam: ileus Technologist Note: Additional: COMPARISON: Abdomen x-ray 07/01/2024. TECHNIQUE: Supine frontal radiograph of the abdomen. FINDINGS/ IMPRESSION: Multiple mildly dilated loops of small and large bowel located centrally may represent ileus. No evidence of free air on this supine exam. > Dictated by Juana Esquivel MD, (residential monitor). Ronal Albright MD have personally reviewed and interpreted this examination/study. > Interpreting Provider: Ronal Spencer MD on 07/03/2024 12:53 AM Jamel Cavazos MD DIAGNOSTIC IMAGING ORDERABLES Final Result * (ABNORMAL) BASIC METABOLIC PANEL (CALCIUM TOTAL) (07/01/2024 4:22 AM [facility]) BUN 31(H) 7 - 26 mg/dL 07/01/2024 5:19 AM [facility] Creatinine 0.75 0.71 - 1.16 mg/dL 07/01/2024 5:19 AM [facility] Sodium 128(L) 136 - 145 mmol/L 07/01/2024 5:19 AM [facility] Potassium 3.9 3.5 - 4.5 mmol/L 07/01/2024 5:19 AM [facility] Chloride 88(L) 98 - 107 mmol/L 07/01/2024 5:19 AM [facility] CO2 24 22 - 29 mmol/L 07/01/2024 5:19 AM [facility] Glucose 136(H) 70 - 99 mg/dL 07/01/2024 5:19 AM [facility] Calcium 10.0 8.4 - 10.2 mg/dL 07/01/2024 5:19 AM [facility] Anion Gap 16 6 - 16 07/01/2024 5:19 AM [facility] BUN/Creatinine Ratio 41(H) 7 - 23 07/01/2024 5:19 AM [facility] Osmolality Calculated 275 275 - 295 mOsm/kg 07/01/2024 5:19 AM [facility] eGFR by CKD-EPI >90 >=90 mL/min/1.7 3 m2 07/01/2024 5:19 AM [facility] Blood BLOOD SPECIMEN / Unknown Lab Venipuncture / Unknown 07/01/2024 4:22 AM [facility] 07/01/2024 4:46 AM [facility] us Que Chow MD LAB - CHEMISTRY ORDERABLES F inal Result [address] [address], [facility] [phone] * (ABNORMAL) HEPATIC FUNCTION PANEL (07/01/2024 4:22 AM [facility]) Protein Total 7.7 6.0 - 8.3 g/dL 025 9:46 AM [facility] Albumin 4.9 3.4 - 5.0 g/dL 07/01/2024 9:46 AM [facility] Bilirubin Total 1.0 0.2 - 1.2 mg/dL 06/06 9:46 AM [facility] Bilirubin Conjugated 0.3 0.1 - 0.5 mg/dL 07/01/2024 9:46 AM [facility] Bilirubin Unconjugated 0.7 Unconjugated Bilirubin is a calculated value: Reference ranges have not been established. mg/dL 07/01/2024 9:46 AM [facility] Alkaline Phosphatase 76 40 - 150 U/L 07/01/2024 9:46 AM [facility] ALT 91(H) 5 - 55 U/L 07/01/2024 9:46 AM [facility] AST 111(H) 5 - 34 U/L 07/01/2024 9:46 AM [facility] Albumin/Globulin Ratio 1.8 1.1 - 2.3 07/01/2024 9:46 AM [facility] Blood BLOOD SPECIMEN / Unknown Lab Venipuncture / Unknown 07/01/2024 4:22 AM [facility] 07/01/2024 4:46 AM [facility] Jamel Cavazos MD LAB - CHEMISTRY ORDERABLES Fin al Result [facility] [address] [place] [address], [facility] [phone] * CT ABDOMEN PELVIS W CONTRAST (06/30/2024 5:02 PM [facility]) Anatomical Region Laterality Modality Abdomen, Pelvis Computed Tomogra phy 06/30/2024 5:08 PM [facility] Impressions 06/30/2024 10:01 PM [facility] Impression: 1.Pancreatic atrophy with mild adjacent fat [...] 06/30/2024 10:01 PM Narrative 06/30/2024 10:01 PM [facility] Procedure Information DATE: 06/30/2024 5:02 PM EXAMINATION: [...] HIGH SENSITIVE REFLEX 1HOUR (06/30/2024 3:57 PM [facility]) Troponin I High Sensitive 71(H) <=35 ng/L 06/30/2024 4:42 PM [facility] Delta Troponin I HS 4 <6 ng/L 06/30/2024 4:42 PM [facility] Blood BLOOD SPECIMEN / Unknown Venipuncture / Unknown 06/30/2024 3:57 PM [facility] 06/30/2024 4:06 PM [facility] us Daryl Julian MD LAB - CHEMISTRY ORDERABLES Final Result [facility] [address] [place] [address], [facility] [phone] * (ABNORMAL) URINALYSIS REFLEX TO MICROSCOPIC NO CULTURE (06/30/2024 2:52 PM [facility]) Color UA Yellow Yellow, Straw 06/30/2024 4:00 PM [facility] Clarity UA Clear Clear 06/30/2024 4:00 PM [facility] Glucose UA 4+(A) Normal 06/30/2024 4:00 PM [facility] Bilirubin UA 1+(A) Negative 06/30/2024 4:00 PM [facility] Ketone UA 4+(A) Negative 06/30/2024 4:00 PM [facility] Specific [place] UA 1.027 1.005 - 1.030 06/30/2024 4:00 PM [facility] Blood UA 2+(A) Negative 06/30/2024 4:00 PM [facility] pH UA 5.5 5.0 - 9.0 pH 06/30/2024 4:00 PM [facility] Protein UA 2+(A) Negative 06/30/2024 4:00 PM [facility] Urobilinogen UA 4.0(A) Normal mg/dL 025 4:00 PM [facility] Nitrite UA Negative Negative 06/30/2024 4:00 PM [facility] Leukocyte UA Negative Negative 06/30/2024 4:00 PM [facility] RBC UA 3-5 0 - 5 # /hpf 06/30/2024 4:00 PM [facility] WBC UA 0-5 0 - 5 # /hpf 06/30/2024 4:00 PM [facility] Bacteria UA None Seen None Seen 06/30/2024 4:00 PM [facility] Squamous Epithelial Cells 0-2 0 - 5 /hpf 06/30/2024 4:00 PM [facility] Mucus UA 2+ /LPF 06/30/2024 4:00 PM [facility] Urine URINE SPECIMEN OBTAINED BY CLEAN CATCH PROCEDURE / Unknown Collection / Unknown 06/30/2024 2:52 PM [facility] 06/30/2024 2:58 PM [facility] us Daryl Julian MD LAB - URINALYSIS ORDERABLE S Final Result [facility] [address] [place] [address], [facility] [phone] * (ABNORMAL) URINE DRUG SCREEN IMMUNOASSAY (06/30/2024 2:52 PM [facility]) Amphetamines Screen Urine Negative Negative : < 1000 ng/mL 06/30/2024 3:23 PM [facility] Barbiturates Screen Urine Negative Negative : < 200 ng/mL 06/30/2024 3:23 PM [facility] Benzodiazepine Screen Urine Negative Negative : < 200 ng/mL 06/30/2024 3:23 PM [facility] Opiates Urine Positive(A) Negative : < 300 ng/mL 06/30/2024 3:23 PM [facility] Comment:Positive urine opiat e screening results should be confirmed by another generally accepted non-immunological method such as gas chromatography or mass spectrometry. Cocaine Metabolites Urine Negative Negative : < 300 ng/mL 06/30/2024 3:23 PM [facility] Phencyclidine Screen Urine Negative Negative : < 25 ng/ml 06/30/2024 3:23 PM [facility] Cannabinoids Screen Urine Negative Negative : <50 ng/mL 06/30/2024 3:23 PM [facility] Methadone Screen Urine Negative Negative : < 300 ng/mL 06/30/2024 3:23 PM [facility] Fentanyl Screen Urine Positive(A) Negative : <1.5 ng/mL 06/30/2024 3:23 PM [facility] Comment:Positive urine fenta nyl screening results should be confirmed by another generally accepted non-immunological method such as gas chromatography or mass spectrometry. Urine URINE / Unknown Collection / Unknown 06/30/2024 2:52 PM [facility] 06/30/2024 2:58 PM [facility] Narrative [facility] - 06/30/2024 3:23 PM [facility] The Urine Toxicology Screening Panel does not screen for Propoxyphene, Meprobamate, Carisoprodol, Trazodone, unig-qlm-pfdvtxo medications and/or volatiles (Acetone, Isopropanol, Methanol or Ethylene Glycol). Ethanol, Salicylate, Acetaminophen, Tricyclic Antidepressants and several therapeutic drugs may be individually assayed in serum or plasma specimen. Toxicology testing by the [facility] is an aid to medical diagnosis and treatment of patients. No documented chain of custody was maintained. Results are intended to be used for clinical purposes only. Daryl Julian MD LAB - URINE CHEMISTRY ORDE RABCRYSTAL Final Result Performing Organization Address [facility] Co de Phone Number [address] [address], [facility] [phone] * PT-INR [facility] (06/30/2024 2:48 PM [facility]) PT 12.7 12.1 - 14.8 Seconds 06/30/2024 3:20 PM [facility] INR 1.0 See Comment 06/30/2024 3:20 PM [facility] Comment:The suggested therap eutic range for standard coumadin (warfarin) therapy is an INR of 2.0-3.0. For high-risk patients (Mechanical Mitral Valve Prosthesis, etc.), the suggested prophylactic therapeutic range is an INR of 2.5-3.5. Blood BLOOD SPECIMEN / Unknown Venipuncture / Unknown 06/30/2024 2:48 PM [facility] 06/30/2024 2:52 PM [facility] Daryl Julian MD LAB - COAGULATION ORDERABL ES Final Result Performing Organization Address [facility] Co de Phone Number [address] [address], [facility] [phone] * LACTIC ACID BLOOD REFLEX TO REPEAT (06/30/2024 2:48 PM [facility]) [facility] Lactic Acid-Stat 1.3 <=2.0 mmol/L 06/30/2024 3:23 PM [facility] Blood BLOOD SPECIMEN / Unknown Venipuncture / Unknown 06/30/2024 2:48 PM [facility] 06/30/2024 2:52 PM [facility] Daryl Julian MD LAB - CHEMISTRY ORDERABLES Final Result Performing Organization Address [facility] Co de Phone Number [facility] [address] [place] [address], [place] [phone] * (ABNORMAL) TROPONIN-I HIGH SENSITIVE BASELINE + 1HR (06/30/2024 2:48 PM [facility]) [facility] Troponin I High Sensitive 67(H) <=35 ng/L 06/30/2024 3:32 PM [facility] Blood BLOOD SPECIMEN / Unknown Venipuncture / Unknown 06/30/2024 2:48 PM [facility] 06/30/2024 2:54 PM [facility] Daryl Julian MD LAB - CHEMISTRY ORDERABLES Final Result Performing Organization Address [facility] de Phone Number [address] [address], [place] [phone] * B-TYPE NATRIURETIC PEPTIDE (06/30/2024 2:48 PM [facility]) [facility] BNP 38 <100 pg/mL 06/30/2024 3:30 PM FARM RANCHER [facility] Comment: A decision threshold of 100 [...] Unknown Venipuncture / Unknown 06/30/2024 2:48 PM FARM RANCHER 06/30/2024 2:54 PM FARM RANCHER Daryl Julian MD LAB - CHEMISTRY ORDERABLES Final Result Performing Organization Address [facility]/ZIP Co de Phone Number [address] [address], [facility] [phone] * ALCOHOL ETHYL BLOOD (06/30/2024 2:48 PM FARM RANCHER) Ethanol (mg/dL) <10 <10 mg/dL 3:28 PM FARM RANCHER [facility] Ethanol Calculated (g/dL) <0.010 <=0.010 g/dL 06/30/2024 3:28 PM FARM RANCHER [facility] Blood BLOOD SPECIMEN / Unknown Venipuncture / Unknown 06/30/2024 2:48 PM FARM RANCHER 06/30/2024 2:54 PM FARM RANCHER Narrative [facility] - 06/30/2024 3:28 PM FARM RANCHER Ethanol Interp <10: None Detected. Depression of [employer]: >100 mg/dl Potentially Critical: >250 mg/dl Potentially [...] CHEMISTRY ORDERABLES Final Result Performing Organization Address [facility]/ZIP Co de Phone Number [address] [address], [place] [phone] * HIV-1 HIV-2 ANTIBODY + HIV P24 AG PANEL (02/03/2024 8:26 PM CDT) HIV Antigen/Antibod y 1 & 2 Non-reacti ve Non-react judy 02/03/2024 9:49 PM CDT [facility] Comment:No Laboratory eviden ce of HIV infection. Blood BLOOD SPECIMEN / Unknown Line Draw / Unknown 02/03/2024 8:26 PM CDT 02/03/2024 8:36 PM CDT us Aminata Marlow PA-C LAB - CHEMISTRY ORDERABLES F inal Result [facility] [address] [place] [address], [facility] [phone] from Last 3 Months or Most Recently Relevant to Health Maintenance Insurance ANTHEM [facility] TH[employer] DEMOCRAT LIABILITY ANTHEM ANTHEM ANTHEM Advance Directives * [...] 5:17 PM 02/14/2024 11:35 AM Care Teams Business Practices Supervisor Relationship Specialty Start Date End Date An Kamara, INO-NEGATIVE [employer]URNER APPRENTICE [address] [place] [id number] PCP - General Nurse Practitioner Family 02/16/24
--- NOTE | 2024-08-29 10:43 | P.PNIM_ITS ---
Progress Note: A&P Assessment and Plan (1) Sepsis: Qualifiers: Sepsis acute organ dysfunction status: without acute organ dysfunction Sepsis type: sepsis due to unspecified organism Qualified Code(s): A41.9 - S epsis, unspecified organism Code(s): A41.9 - Sepsis, unspecified organism Status: Acute Assessment and Plan: Resolved (2) Pneumonia: Qualifiers: Laterality: bilateral Lung location: lower lobe of lung Pneumonia type: due to unspecified organism Qualified Code(s): J18.9 - Pneumonia, unspecified organism Code(s): J18.9 - Pneumonia, unspecified organism Status: Acute Assessment and Plan: Vital signs improved and stable RSV COVID flu negative Started on Ceftriaxone and azithromycin monitor cultures MRSA negative encourage oral intake (3) Alcohol withdrawal: Qualifiers: Complication of substance-induced condition: uncomplicated Qualified Code(s): F10.930 - Alcohol use, unspecified with withdrawal, uncomplicated Code(s): F10.939 - Alcohol use, unspecified with withdrawal, unspecified Status: Acute Assessment and Plan: ETOH < 10 on arrival Patient admits started drinking Vodka after 2 to 3 months of abstinence CIWA protocol ordered. Thiamine 100 mg daily and Multivitamin ordered Continue folic acid (4) Alcoholic cardiomyopathy: Code(s): I42.6 - Alcoholic cardiomyopathy Status: Acute Assessment and Plan: Echo from 01/30/2024 with EF 15-20% and normal LV diastolic fxn. Of note, Patient was transferred out of [facility] on 02/02/2024 for cardiogenic shock. At that time he was supported in the ICU on Levophed and dopamine infusions. He was also intubated. He was sent to [facility] on 02/02/24 in their cardiac ICU and was placed on Impella and ECMO. Was sent home on hospice. Patient revoked hospice back in April and was seeking placement on heart transplant list. Last EF was up to 39% according to patient report Patient follows with Dr. Mahmood at [facility] and Dr. Navi kowalski at [facility]. (5) Opiate dependence, continuous: Code(s): F11.20 - Opioid dependence, uncomplicated Status: Acute Assessment and Plan: Continue Librium 10 mg p.o. q.8 hours Continue Lyrica 100 mg p.o. q.d. Continue home medication Klonopin 2 mg p.o. b.i.d. Lorazepam 2 mg IV push q.2 hours p.r.n. for anxiety Ambien 10 mg p.o. q.h.s. p.r.n. 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 Qualified Code(s): G62.81 - Critical illness polyneuropathy Code(s): G62.9 - Polyneuropathy, unspecified Status: Acute (7) Anxiety: Code(s): F41.9 - Anxiety disorder, unspecified Status: Acute (8) Diabetes mellitus: Qualifiers: Diabetes mellitus complication status: without complication Diabetes mellitus alf insulin use: with mail rider use Diabetes mellitus type: due to underlying condition Qualified Code(s): E08.9 - Diabetes mellitus due to underlying condition without complications; Z79.4 - snf (current) use of insulin Code(s): E11.9 - Type 2 diabetes mellitus without complications Status: Acute Assessment and Plan: Sliding scale Hypoglycemia protocol (9) Tobacco abuse: Code(s): Z72.0 - Tobacco use Status: Acute Assessment and Plan: Nicotine patch Subjective Date/time seen: 08/29/24 10:43 Interval history: Interval Hx: 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 He reports chronic alcoholism and denies smoking although record review indicates he was aprevious smoker. Last January 2024 he reports coming to [place] for abdominal pain and had gallbladder removed and later he was intubated and airlifted to [facility]. He was in ECMO and later transitioned to Impelo which was later removed. His EF was in 15% and discharged home with hospice. He recovered well in home with hospice and his father support. Although he stopped drinking for 2 to 3 months after discharge but later started drinking since he was not able to get pain meds from his physicians. Patient follows with Dr. Mahmood at [facility] and Dr. Mcelroy here at [place]. 08/29/2024: Admitted in the setting of Alcohol abuse,and PNA. Review of Systems Review of Systems: 12 systems were reviewed with pertinent positives and negatives per HPI. Except as documented in the HPI, all other systems were reviewed and are negative. Exam Narrative: Weight 61.3 kg BMI 18.3 Const: Other: Chronically ill-appearing, no acute distress HENMT: Other: Mucous membranes are dry, no oral pharyngeal erythema, pupils are equal and reactive, positive conjunctival pallor, no scleral icterus Neck: Other: No JVD, normal alignment Resp: Other: Clear to auscultation bilaterally, no increased work of breathing Cardio: Other: Regular rate, regular rhythm, 2+ bilateral radial pedal pulses, no JVD GI: Other: Soft, nontender, nondistended, positive bowel sounds : Other: Incontinent of urine Skin: Other: Generalized pallor, non jaundice Neuro: Other: Alert oriented x4, speech is clear, no facial asymmetry, no localizing neurologic deficits noted during the course of conversation however hypersensitivity to light touch to bilateral feet more significantly in the toes Extrem: Other: Discoloration of the left great toe nail bed, no clubbing, cyanosis or edema, moves all extremities equally Psych: Other: Anxious, odd affect, cooperative Objective Data Vital Signs Vital Signs: Vital Signs - 24 hr 08/28/24 21:36 08/28/24 21:47 08/28/24 21:51 Temperature 98.5 F 98.5 F Pulse Rate 129 H 120 H Respiratory Rate 24 H 26 H Blood Pressure 118/86 118/86 Pulse Oximetry 100 98 100 Oxygen Delivery Room Air Room Air Oxygen Flow Rate 08/28/24 23:45 08/29/24 00:00 08/29/24 01:20 Temperature Pulse Rate 120 H 116 H 115 H Respiratory Rate 23 H 23 H 24 H Blood Pressure 131/95 H 135/95 H 128/97 H Pulse Oximetry 97 100 99 Oxygen Delivery Oxygen Flow Rate 08/29/24 02:20 08/29/24 03:40 08/29/24 04:40 Temperature Pulse Rate 106 H 96 102 H Respiratory Rate 19 20 Blood Pressure 115/80 118/80 115/80 Pulse Oximetry 99 100 100 Oxygen Delivery Oxygen Flow Rate 08/29/24 06:36 08/29/24 06:56 08/29/24 08:00 Temperature 97.9 F 97.8 F Pulse Rate 101 H 97 97 Respiratory Rate 25 H 16 16 Blood Pressure 123/84 101/77 100/73 Pulse Oximetry 100 98 100 Oxygen Delivery Oxygen Flow Rate 08/29/24 08:54 08/29/24 08:55 Temperature Pulse Rate 102 H Respiratory Rate Blood Pressure Pulse Oximetry 98 Oxygen Delivery Nasal Cannula Oxygen Flow Rate 1.5 Intake/Output Intake/Output: Intake & Output 08/26/24 08/27/24 08/28/24 08/29/24 23:59 23:59 23:59 23:59 Intake Total 2540 Output Total 200 Balance 2340 Meds/Results Medications: Active Medications Generic Name Dose Route Start Last Admin Trade Name Freq PRN Reason Stop Dose Admin Carvedilol 3.125 mg 08/29/24 09:00 08/29/24 08:54 Carvedilol 3.125 Mg Tablet PO 3.125 mg Q12HR KATY Administration Chlordiazepoxide HCl 25 mg 08/29/24 14:00 Chlordiazepoxide (*Crx) 25 Mg Capsule PO Q8HR KATY Clonazepam 2 mg 08/29/24 09:00 08/29/24 08:53 Clonazepam (*Crx) 0.5 Mg Tablet PO 2 mg BID KATY Administration Dextrose 12.5 gm 08/29/24 07:36 Dextrose 50% 25 Gm/50 Ml Syringe IV PUSH PRN PRN Hypoglycemia Protocol Empagliflozin 10 mg 08/29/24 09:00 Empagliflozin 10 Mg Tablet PO DAILY KATY Enoxaparin Sodium 40 mg 08/29/24 09:00 08/29/24 08:58 Enoxaparin 40 Mg/0.4 Ml Syringe SUB-Q 40 mg DAILY KATY Administration Glucagon 1 mg 08/29/24 07:36 Glucagon For Inj 1 Mg Vial IM PRN PRN Hypoglycemia Protocol Glucose 15 gm 08/29/24 07:36 Glucose Oral Gel 15 Gm Of Glucse In 37.5 Gm Tube PO PRN PRN Hypoglycemia Protocol Ceftriaxone Sodium 1 gm in 50 mls @ 100 mls/hr 08/30/24 04:00 Rocephin 1 Gm/Ns 50 Ml IVPB Q24H KATY Azithromycin 500 mg in 250 mls @ 250 mls/hr 08/30/24 05:00 Zithromax IVPB Q24H KATY Dextrose 1,000 mls @ 100 mls/hr 08/29/24 07:36 Dextrose 5% 1,000 Ml IVPB PRN PRN Hypoglycemia Protocol Insulin Aspart 2 - 5 units 08/29/24 08:00 08/29/24 08:53 Insulin Aspart (*Bkc) 100 Units/Ml SUB-Q 2 units TIDWM KATY Administration Protocol Lorazepam 2 mg 08/29/24 02:14 Lorazepam Inj (*Crx) 2 Mg/Ml Vial IV PUSH Q2H PRN CIWA > 15 Melatonin 10 mg 08/29/24 21:00 Melatonin 5 Mg Tablet PO HS KATY Nicotine 1 patch 08/29/24 07:37 Nicotine (*Pbkc) 14 Mg Patch TRANSDERM DAILY PRN Nicotine withdrawal Nonformulary Drug 0 mg 08/29/24 09:00 Ivabradine 5 Mg PO 09/28/24 08:59 Tablet DAILY KATY Oxycodone/Acetaminophen 1 tab 08/29/24 07:12 Oxycodone/Acetaminophen (*Crx) 10-325 Mg Tablet PO Q6H PRN Pain Rated 7-10 Pantoprazole Sodium 40 mg 08/29/24 09:00 08/29/24 08:54 Pantoprazole 40 Mg Tablet PO 40 mg DAILY KATY Administration Potassium Chloride 20 meq 08/29/24 09:00 Potassium Chloride 20 Meq Er Tablet PO 09/28/24 08:59 DAILY KATY Pregabalin 100 mg 08/29/24 09:00 08/29/24 08:53 Pregabalin (*Crx) 50 Mg Capsule PO 100 mg DAILY KATY Administration Sacubitril/Valsartan 1 tab 08/29/24 09:00 08/29/24 08:53 Sacubitril/Valsartan 24-26 Mg Tablet PO 0.5 tab Q12HR KATY Administration Thiamine HCl 100 mg 08/29/24 09:00 08/29/24 08:53 Thiamine Hcl 100 Mg Tablet PO 100 mg QAM KATY Administration Zolpidem Tartrate 10 mg 08/29/24 07:13 Zolpidem Tartrate (*Crx) 5 Mg Tablet PO HS PRN insomnia Radiology Results: ITS Impressions Cervical Spine CT 08/29/24 07:01 IMPRESSION: 1. 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 Otherwise normal cervical spine CT. Chest X-Ray 08/29/24 07:10 IMPRESSION: 1. No acute cardiopulmonary disease. Head CT 08/29/24 09:10 IMPRESSION: 1. Normal head CT. Chest/Abdomen/Pelvis CT 08/29/24 10:14 IMPRESSION: 1. Patchy groundglass opacities, consolidation and mucous plugging in the bilateral lower lobes consistent with pneumonia. 2. No acute intra-abdominal/pelvic process. 3. Diffuse hepatic steatosis. Aorta w/Runoff CTA 08/29/24 10:25 IMPRESSION: 1. 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 2. Bilateral lower lobe pneumonia. 3. Labs Labs: Laboratory Results - last 24 hr 08/28/24 08/28/24 08/29/24 22:16 22:21 00:03 WBC 20.1 H RBC 3.61 L Hgb 10.5 L Hct 33.1 L MCV 91.7 MCH 29.1 MCHC 31.7 L RDW 17.2 H Plt Count 446 H D MPV 9.2 Immature Gran % (Auto) 0.4 Neut % (Auto) 79.3 H Lymph % (Auto) 10.6 L [place] % (Auto) 8.9 H Eos % (Auto) 0.1 Baso % (Auto) 0.7 Lymph # (Auto) 2.12 [place] # (Auto) 1.8 H Eos # (Auto) 0.0 Baso # (Auto) 0.1 Abs Immat Gran (auto) 0.08 H Absolute Neuts (auto) 15.9 H Absolute Nucleated RBC 0.000 Nucleated RBC % 0.0 PT 12.8 INR 0.9 APTT 33.6 D-Dimer 0.40 Puncture Site Right radial ABG pH 7.518 H* ABG pCO2 34.8 L ABG pO2 69.4 L ABG PO2/FiO2 Ratio 3.30 ABG HCO3 27.7 H ABG O2 Saturation 95.5 ABG O2 Content 13.4 L ABG Base Excess 4.7 A-a Gradient 38.7 Oxyhemoglobin 90.0 Total Hemoglobin 10.5 L O2 Delivery Device Nasal cannula O2 Liters/Min 2.0 FiO2 28 Sodium 140 Potassium 3.8 Chloride 98 Carbon Dioxide 23 Anion Gap 19 H BUN 17 Creatinine 0.55 L Estim Creat Clear Calc 137 Estimated GFR > 60 Glucose 146 H POC Capillary Glucose Lactic Acid 1.1 Calcium 9.1 Magnesium Total Bilirubin 0.4 AST 33 ALT 29 Alkaline Phosphatase 68 Troponin I 0.033 C-Reactive Protein NT-Pro-B Natriuret Pep 1060 H Total Protein 7.0 Albumin 4.7 Lipase 12 L TSH (Reflex) 0.591 Urine Color Yellow Urine Appearance Clear Urine pH 5.5 Ur Specific [place] 1.014 Urine Protein Negative Urine Glucose (UA) Negative Urine Ketones 1+ H Ur Blood (Man) Negative Urine Nitrate Negative Urine Bilirubin Negative Urine Urobilinogen 0.2 Leukocyte Esterase Rfl Negative Urine Opiates Screen Negative Urine Methadone Screen Negative Ur Barbiturates Screen Negative Ur Phencyclidine Scrn Negative Ur Amphetamine Screen Negative U Benzodiazepines Scrn Positive A Urine Cocaine Screen Negative U Cannabinoids Screen Negative Ethyl Alcohol < 10 Influenza A (RT-PCR) Negative Influenza B (RT-PCR) Negative RSV (RT-PCR) Negative SARS-CoV-2 RNA (RT-PCR) Negative 08/29/24 08/29/24 08/29/24 01:57 06:27 08:06 WBC 10.3 H RBC 3.23 L Hgb 9.5 L Hct 30.1 L MCV 93.2 MCH 29.4 MCHC 31.6 L RDW 17.2 H Plt Count 343 MPV 9.3 Immature Gran % (Auto) 0.4 Neut % (Auto) 70.6 Lymph % (Auto) 19.4 [place] % (Auto) 8.4 Eos % (Auto) 0.4 Baso % (Auto) 0.8 Lymph # (Auto) 1.99 [place] # (Auto) 0.9 H Eos # (Auto) 0.0 Baso # (Auto) 0.1 Abs Immat Gran (auto) 0.04 H Absolute Neuts (auto) 7.3 H Absolute Nucleated RBC 0.000 Nucleated RBC % 0.0 PT INR APTT D-Dimer Puncture Site ABG pH ABG pCO2 ABG pO2 ABG PO2/FiO2 Ratio ABG HCO3 ABG O2 Saturation ABG O2 Content ABG Base Excess A-a Gradient Oxyhemoglobin Total Hemoglobin O2 Delivery Device O2 Liters/Min FiO2 Sodium 137 Potassium 4.0 Chloride 101 Carbon Dioxide 32 H Anion Gap 4 BUN 21 H Creatinine 0.59 L Estim Creat Clear Calc 126 Estimated GFR > 60 Glucose 206 H POC Capillary Glucose Lactic Acid Calcium 8.0 L Magnesium 2.1 Total Bilirubin AST ALT Alkaline Phosphatase Troponin I 0.037 H* 0.036 H* C-Reactive Protein 2.3 H NT-Pro-B Natriuret Pep Total Protein Albumin Lipase TSH (Reflex) Urine Color Urine Appearance Urine pH Ur Specific [place] Urine Protein Urine Glucose (UA) Urine Ketones Ur Blood (Man) Urine Nitrate Urine Bilirubin Urine Urobilinogen Leukocyte Esterase Rfl Urine Opiates Screen Urine Methadone Screen Ur Barbiturates Screen Ur Phencyclidine Scrn Ur Amphetamine Screen U Benzodiazepines Scrn Urine Cocaine Screen U Cannabinoids Screen Ethyl Alcohol Influenza A (RT-PCR) Influenza B (RT-PCR) RSV (RT-PCR) SARS-CoV-2 RNA (RT-PCR) 08/29/24 08:09 WBC RBC Hgb Hct MCV MCH MCHC RDW Plt Count MPV Immature Gran % (Auto) Neut % (Auto) Lymph % (Auto) [place] % (Auto) Eos % (Auto) Baso % (Auto) Lymph # (Auto) [place] # (Auto) Eos # (Auto) Baso # (Auto) Abs Immat Gran (auto) Absolute Neuts (auto) Absolute Nucleated RBC Nucleated RBC % PT INR APTT D-Dimer Puncture Site ABG pH ABG pCO2 ABG pO2 ABG PO2/FiO2 Ratio ABG HCO3 ABG O2 Saturation ABG O2 Content ABG Base Excess A-a Gradient Oxyhemoglobin Total Hemoglobin O2 Delivery Device O2 Liters/Min FiO2 Sodium Potassium Chloride Carbon Dioxide Anion Gap BUN Creatinine Estim Creat Clear Calc Estimated GFR Glucose POC Capillary Glucose 226 H Lactic Acid Calcium Magnesium Total Bilirubin AST ALT Alkaline Phosphatase Troponin I C-Reactive Protein NT-Pro-B Natriuret Pep Total Protein Albumin Lipase TSH (Reflex) Urine Color Urine Appearance Urine pH Ur Specific [place] Urine Protein Urine Glucose (UA) Urine Ketones Ur Blood (Man) Urine Nitrate Urine Bilirubin Urine Urobilinogen Leukocyte Esterase Rfl Urine Opiates Screen Urine Methadone Screen Ur Barbiturates Screen Ur Phencyclidine Scrn Ur Amphetamine Screen U Benzodiazepines Scrn Urine Cocaine Screen U Cannabinoids Screen Ethyl Alcohol Influenza A (RT-PCR) Influenza B (RT-PCR) RSV (RT-PCR) SARS-CoV-2 RNA (RT-PCR) Quality VTE Prophylaxis VTE prophylaxis: pharmacologic ordered (Lovenox 40 mg subQ daily)
[2024-08-29] MEDS: chlordiazePOXIDE (*CRX) 25 MG CAPSULE PO (10:46)
[2024-08-29 11:34] LABS: Glucose Point of Care 47 mg/dl (65-105)
[2024-08-29 11:34] LABS: Glucose Point of Care 87 mg/dl (65-105)
[2024-08-29] MEDS: chlordiazePOXIDE (*CRX) 10 MG CAPSULE PO ×2 (14:54→19:00)
[2024-08-29] MEDS: oxyCODONE/ACETAMINOPHEN (*CRX) 10-325 MG TABLET 1 TAB PO (14:56)
[2024-08-29 16:08] LABS: Glucose Point of Care 171 mg/dl (65-105)
[2024-08-29] MEDS: NICOTINE (*PBKC) 14 MG PATCH 1 PATCH TRANSDERM (17:41)
[2024-08-29] MEDS: MELATONIN 5 MG TABLET 10 MG PO (20:17)
[2024-08-29] MEDS: ZOLPIDEM TARTRATE (*CRX) 5 MG TABLET 10 MG PO (20:19)
[2024-08-29 20:21] LABS: Glucose Point of Care 154 mg/dl (65-105)
--- NOTE | 2024-08-29 21:29 | PC.NURSE ---
This RN reported to bedside to do an assessment and medication pass. Patient had CIWA of 6, and then asked why can't I have the IV Ativan? . This RN explained to the patient that the IV Ativan was for CIWA >15, and patient stated I lied for my answers on your assessment, I really don't know the date and I do not know where I am. I read the board, that states all the answers and cheated to seem smarter. If I would have known to be truthful you would be giving me the Ativan. . The patient then stated that he wanted his Ambien to sleep, and would like his Librium dose back to the dose it was, 25mg. This RN informed the patient that the provider would be notified. Patient stated I am starving, I need a sandwich , but when given the sandwich the patient stated My withdrawal is worse, I'm nauseous now and need the Ativan . I notified the provider, provider communication assessment completed on worklist.
[2024-08-30] VITALS (11 sets, daily range): BP systolic 92–114; BP diastolic 61–77; PULSE 78–98; RESP 14–16; TEMP 36.5–36.8; O2SAT 97–100; BMI 17.9
[2024-08-30] MEDS: chlordiazePOXIDE (*CRX) 25 MG CAPSULE PO ×4 (01:08→17:10)
[2024-08-30] MEDS: oxyCODONE/ACETAMINOPHEN (*CRX) 10-325 MG TABLET 1 TAB PO ×4 (03:13→21:56)
[2024-08-30] MEDS: AZITHROMYCIN 500 MG/NS 250 ML 500 MG/250 ML BAG 250 MG IVPB (03:56)
[2024-08-30 04:17] LABS: Hematocrit 30.1 % (42.0-52.0); Hemoglobin 9.4 g/dL (14.0-18.0); Mean Corpuscular HGB Conc 31.2 g/dl (32-36); Mean Corpuscular Hemoglobin 29.6 pg (26-34); Mean Corpuscular Volume 94.7 fl (80-100); Mean Platelet Volume 9.3 fl (7.4-10.4); Platelet Count Result 302 k/mm3 (150-375); Red Blood Count 3.18 M/mm3 (4.6-6.20); Red Cell Distribution Width 17.2 % (11.5-14.5); White Blood Count 5.3 K/mm3 (4.5-10.0)
[2024-08-30 04:50] LABS: Alanine Aminotransferase 23 U/L (6-50); Albumin Level 3.6 g/dL (3.5-5.1); Alkaline Phosphatase 50 U/L (38-126); Anion Gap 4 mmol/L (4-12); Aspartate Amino Transferase 36 U/L (17-59); Bilirubin,Total 0.2 mg/dL (0.2-1.3); Blood Urea Nitrogen 15 mg/dL (9-20); Calcium 8.6 mg/dL (8.4-10.2); Carbon Dioxide 33 mmol/L (22-30); Chloride 102 mmol/L (98-107); Estimated CRCL calculation 117 ml/min; Estimated Glomerular Filt Rate > 60; Glucose 172 mg/dL (65-110); Potassium 3.9 mmol/L (3.4-5.0); Sodium 139 mmol/L (137-145)
[2024-08-30] MEDS: ONDANSETRON INJ 4 MG/2 ML VIAL IV PUSH ×4 (05:02→23:03)
--- NOTE | 2024-08-30 07:10 | PM.IMPN ---
Progress Note: A&P Assessment and Plan (1) Sepsis: Qualifiers: Sepsis acute organ dysfunction status: without acute organ dysfunction Sepsis type: sepsis due to unspecified organism Qualified Code(s): A41.9 - Sepsis, unspecified organism Code(s): A41.9 - Sepsis, unspecified organism Status: Acute Assessment and Plan: Resolved (2) Pneumonia: Qualifiers: Laterality: bilateral Lung location: lower lobe of lung Pneumonia type: due to unspecified organism Qualified Code(s): J18.9 - Pneumonia, unspecified organism Code(s): J18.9 - Pneumonia, unspecified organism Status: Acute Assessment and Plan: Vital signs improved and stable RSV COVID flu negative Started on Ceftriaxone and azithromycin monitor cultures MRSA negative encourage oral intake (3) Alcohol withdrawal: Qualifiers: Complication of substance-induced condition: uncomplicated Qualified Code(s): F10.930 - Alcohol use, unspecified with withdrawal, uncomplicated Code(s): F10.939 - Alcohol use, unspecified with withdrawal, unspecified Status: Acute Assessment and Plan: ETOH < 10 on arrival Patient admits started drinking Vodka after 2 to 3 months of abstinence CIWA protocol ordered. Thiamine 100 mg daily and Multivitamin ordered Continue folic acid (4) Alcoholic cardiomyopathy: Code(s): I42.6 - Alcoholic cardiomyopathy Status: Acute Assessment and Plan: Previous hospitalization Echo from 01/30/2024 with EF 15-20% and normal LV diastolic fxn. Of note, Patient was transferred out of [facility] on 02/02/2024 for cardiogenic shock. At that time he was supported in the ICU on Levophed and dopamine infusions. He was also intubated. He was sent to [facility] on 02/02/24 in their cardiac ICU and was placed on Impella and ECMO. Was sent home on hospice. Patient revoked hospice back in April and was seeking placement on heart transplant list. Last EF was up to 39% according to patient report Patient follows with Dr. Mahmood at [facility] and Dr. Navi kowalski at [place]. (5) Opiate dependence, continuous: Code(s): F11.20 - Opioid dependence, uncomplicated Status: Acute Assessment and Plan: Continue Librium 25 mg p.o. q.6 hours Continue Lyrica 100 mg p.o. q.d. Continue home medication Klonopin 2 mg p.o. b.i.d. Lorazepam 2 mg IV push q.2 hours p.r.n. for anxiety Ambien 10 mg p.o. q.h.s. p.r.n. 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 Qualified Code(s): G62.81 - Critical illness polyneuropathy Code(s): G62.9 - Polyneuropathy, unspecified Status: Acute (7) Anxiety: Code(s): F41.9 - Anxiety disorder, unspecified Status: Acute (8) Diabetes mellitus: Qualifiers: Diabetes mellitus complication status: without complication Diabetes mellitus alf insulin use: with alf use Diabetes mellitus type: due to underlying condition Qualified Code(s): E08.9 - Diabetes mellitus due to underlying condition without complications; Z79.4 - penitentiary (current) use of insulin Code(s): E11.9 - Type 2 diabetes mellitus without complications Status: Acute Assessment and Plan: Sliding scale Hypoglycemia protocol (9) Tobacco abuse: Code(s): Z72.0 - Tobacco use Status: Acute Assessment and Plan: Nicotine patch Subjective Date/time seen: 08/30/24 07:10 Interval history: Interval Hx: 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 He reports chronic alcoholism and denies smoking although record review indicates he was aprevious smoker. Last January 2024 he reports coming to [place] for abdominal pain and had gallbladder removed and later he was intubated and airlifted to [facility]. He was in ECMO and later transitioned to Impelo which was later removed. His EF was in 15% and discharged home with hospice. He recovered well in home with hospice and his father support. Although he stopped drinking for 2 to 3 months after discharge but later started drinking since he was not able to get pain meds from his physicians. Patient follows with Dr. Mahmood at [facility] and Dr. Mcelroy here at [place]. 08/30/2024: Complains of pain. Reports he was told not to take Ivabradine and jardiance Review of Systems Review of Systems: 12 systems were reviewed with pertinent positives and negatives per HPI. Except as documented in the HPI, all other systems were reviewed and are negative. Exam Narrative: Weight 61.3 kg BMI 18.3 Const: Other: Chronically ill-appearing, no acute distress HENMT: Other: Mucous membranes are dry, no oral pharyngeal erythema, pupils are equal and reactive, positive conjunctival pallor, no scleral icterus Neck: Other: No JVD, normal alignment Resp: Other: Clear to auscultation bilaterally, no increased work of breathing Cardio: Other: Regular rate, regular rhythm, 2+ bilateral radial pedal pulses, no JVD GI: Other: Soft, nontender, nondistended, positive bowel sounds : Other: Incontinent of urine Skin: Other: Generalized pallor, non jaundice Neuro: Other: Alert oriented x4, speech is clear, no facial asymmetry, no localizing neurologic deficits noted during the course of conversation however hypersensitivity to light touch to bilateral feet more significantly in the toes Extrem: Other: Discoloration of the left great toe nail bed, no clubbing, cyanosis or edema, moves all extremities equally Psych: Other: Anxious, odd affect, cooperative Objective Data Vital Signs Vital Signs: Vital Signs - 24 hr 08/29/24 08:00 08/29/24 08:00 08/29/24 08:00 Temperature 97.8 F Pulse Rate 97 102 H 95 Pulse Rate [Monitor] Respiratory Rate 16 16 Blood Pressure 100/73 Pulse Oximetry 100 98 Oxygen Delivery Nasal Cannula Oxygen Flow Rate 1.5 08/29/24 08:54 08/29/24 08:55 08/29/24 10:00 Temperature Pulse Rate 102 H 93 Pulse Rate [Monitor] Respiratory Rate Blood Pressure Pulse Oximetry 98 Oxygen Delivery Nasal Cannula Oxygen Flow Rate 1.5 08/29/24 11:54 08/29/24 12:00 08/29/24 15:52 Temperature 97.6 F 98.3 F Pulse Rate 86 90 93 Pulse Rate [Monitor] Respiratory Rate 18 20 Blood Pressure 108/76 108/77 Pulse Oximetry 100 99 Oxygen Delivery Oxygen Flow Rate 08/29/24 16:00 08/29/24 20:00 08/29/24 20:00 Temperature 98.0 F Pulse Rate 91 80 Pulse Rate [Monitor] Respiratory Rate 20 Blood Pressure 107/69 Pulse Oximetry 93 93 Oxygen Delivery Room Air Oxygen Flow Rate 08/29/24 20:00 08/29/24 20:16 08/29/24 23:58 Temperature Pulse Rate 92 89 82 Pulse Rate [Monitor] Respiratory Rate Blood Pressure Pulse Oximetry Oxygen Delivery Oxygen Flow Rate 08/30/24 00:00 08/30/24 00:00 08/30/24 04:00 Temperature Pulse Rate 80 Pulse Rate [Monitor] 80 92 Respiratory Rate Blood Pressure Pulse Oximetry Oxygen Delivery Oxygen Flow Rate 08/30/24 04:00 08/30/24 04:00 Temperature 97.9 F Pulse Rate 86 94 Pulse Rate [Monitor] Respiratory Rate 16 Blood Pressure 101/73 Pulse Oximetry 100 Oxygen Delivery Oxygen Flow Rate Intake/Output Intake/Output: Intake & Output 08/27/24 08/28/24 08/29/24 08/30/24 23:59 23:59 23:59 23:59 Intake Total 3020 650 Output Total 1250 775 Balance 1770 -125 Meds/Results Medications: Active Medications Generic Name Dose Route Start Last Admin Trade Name Freq PRN Reason Stop Dose Admin Carvedilol 3.125 mg 08/29/24 09:00 08/29/24 20:16 Carvedilol 3.125 Mg Tablet PO 3.125 mg Q12HR KATY Administration Chlordiazepoxide HCl 25 mg 08/30/24 00:00 08/30/24 05:02 Chlordiazepoxide (*Crx) 25 Mg Capsule PO 25 mg Q6H KATY Administration Clonazepam 2 mg 08/29/24 09:00 08/29/24 17:35 Clonazepam (*Crx) 0.5 Mg Tablet PO 2 mg BID KATY Administration Dextrose 12.5 gm 08/29/24 07:36 Dextrose 50% 25 Gm/50 Ml Syringe IV PUSH PRN PRN Hypoglycemia Protocol Empagliflozin 10 mg 08/29/24 09:00 08/29/24 10:46 Empagliflozin 10 Mg Tablet PO Not Given DAILY KATY Enoxaparin Sodium 40 mg 08/29/24 09:00 08/29/24 08:58 Enoxaparin 40 Mg/0.4 Ml Syringe SUB-Q 40 mg DAILY KATY Administration Folic Acid 0.4 mg 08/30/24 09:00 Folic Acid 0.4 Mg Tablet PO DAILY KATY Glucagon 1 mg 08/29/24 07:36 Glucagon For Inj 1 Mg Vial IM PRN PRN Hypoglycemia Protocol Glucose 15 gm 08/29/24 07:36 Glucose Oral Gel 15 Gm Of Glucse In 37.5 Gm Tube PO PRN PRN Hypoglycemia Protocol Ceftriaxone Sodium 1 gm in 50 mls @ 100 mls/hr 08/30/24 04:00 08/30/24 03:43 Rocephin 1 Gm/Ns 50 Ml IVPB Infused Q24H [facility] Infusion Azithromycin 500 mg in 250 mls @ 250 mls/hr 08/30/24 05:00 08/30/24 04:56 Zithromax IVPB Infused Q24H KATY Infusion Dextrose 1,000 mls @ 100 mls/hr 08/29/24 07:36 Dextrose 5% 1,000 Ml IVPB PRN PRN Hypoglycemia Protocol Insulin Aspart 2 - 5 units 08/29/24 08:00 08/29/24 16:04 Insulin Aspart (*Bkc) 100 Units/Ml SUB-Q Not Given TIDWM [facility] Protocol Lorazepam 2 mg 08/29/24 02:14 Lorazepam Inj (*Crx) 2 Mg/Ml Vial IV PUSH Q2H PRN CIWA > 15 Melatonin 10 mg 08/29/24 21:00 08/29/24 20:17 Melatonin 5 Mg Tablet PO 10 mg HS KATY Administration Multivitamins/Calcium 1 tablet 08/30/24 09:00 Therapeutic Multivitamins/Minerals Tab (*Bkc) PO QAM [facility] Nicotine 1 patch 08/29/24 07:37 08/29/24 17:41 Nicotine (*Pbkc) 14 Mg Patch TRANSDERM 1 patch DAILY PRN Administration Nicotine withdrawal Nonformulary Drug 0 mg 08/29/24 09:00 08/29/24 10:46 Ivabradine 5 Mg PO 09/28/24 08:59 Not Given Tablet DAILY [facility] Ondansetron HCl 4 mg 08/30/24 04:46 08/30/24 05:02 Ondansetron Inj 4 Mg/2 Ml Vial IV PUSH 4 mg Q6H PRN Administration Nausea And Vomiting Oxycodone/Acetaminophen 1 tab 08/29/24 07:12 08/30/24 03:13 Oxycodone/Acetaminophen (*Crx) 10-325 Mg Tablet PO 1 tab Q6H PRN Administration Pain Rated 7-10 Pantoprazole Sodium 40 mg 08/29/24 09:00 08/29/24 08:54 Pantoprazole 40 Mg Tablet PO 40 mg DAILY KATY Administration Potassium Chloride 20 meq 08/29/24 09:00 08/29/24 10:46 Potassium Chloride 20 Meq Er Tablet PO 09/28/24 08:59 Not Given DAILY [facility] Pregabalin 100 mg 08/29/24 09:00 08/29/24 08:53 Pregabalin (*Crx) 50 Mg Capsule PO 100 mg DAILY KATY Administration Sacubitril/Valsartan 1 tab 08/30/24 09:00 Sacubitril/Valsartan 12-13 Mg Tablet PO Q12HR KATY Thiamine HCl 100 mg 08/29/24 09:00 08/29/24 08:53 Thiamine Hcl 100 Mg Tablet PO 100 mg QAM KATY Administration Zolpidem Tartrate 10 mg 08/29/24 07:13 08/29/24 20:19 Zolpidem Tartrate (*Crx) 5 Mg Tablet PO 10 mg HS PRN Administration insomnia Radiology Results: ITS Impressions Cervical Spine CT 08/29/24 07:01 IMPRESSION: 1. 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 Otherwise normal cervical spine CT. Chest X-Ray 08/29/24 07:10 IMPRESSION: 1. No acute cardiopulmonary disease. Head CT 08/29/24 09:10 IMPRESSION: 1. Normal head CT. Chest/Abdomen/Pelvis CT 08/29/24 10:14 IMPRESSION: 1. Patchy groundglass opacities, consolidation and mucous plugging in the bilateral lower lobes consistent with pneumonia. 2. No acute intra-abdominal/pelvic process. 3. Diffuse hepatic steatosis. Aorta w/Runoff CTA 08/29/24 10:25 IMPRESSION: 1. 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 2. Bilateral lower lobe pneumonia. 3. Labs Labs: Laboratory Results - last 24 hr 08/29/24 08/29/24 08/29/24 06:27 08:06 08:09 WBC 10.3 H RBC 3.23 L Hgb 9.5 L Hct 30.1 L MCV 93.2 MCH 29.4 MCHC 31.6 L RDW 17.2 H Plt Count 343 MPV 9.3 Immature Gran % (Auto) 0.4 Neut % (Auto) 70.6 Lymph % (Auto) 19.4 Coffey % (Auto) 8.4 Eos % (Auto) 0.4 Baso % (Auto) 0.8 Lymph # (Auto) 1.99 Coffey # (Auto) 0.9 H Eos # (Auto) 0.0 Baso # (Auto) 0.1 Abs Immat Gran (auto) 0.04 H Absolute Neuts (auto) 7.3 H Absolute Nucleated RBC 0.000 Nucleated RBC % 0.0 Sodium 137 Potassium 4.0 Chloride 101 Carbon Dioxide 32 H Anion Gap 4 BUN 21 H Creatinine 0.59 L Estim Creat Clear Calc 126 Estimated GFR > 60 Glucose 206 H POC Capillary Glucose 226 H Calcium 8.0 L Magnesium 2.1 Total Bilirubin AST ALT Alkaline Phosphatase Troponin I 0.036 H* Total Protein Albumin 08/29/24 08/29/24 08/29/24 11:11 11:32 16:02 WBC RBC Hgb Hct MCV MCH MCHC RDW Plt Count MPV Immature Gran % (Auto) Neut % (Auto) Lymph % (Auto) Coffey % (Auto) Eos % (Auto) Baso % (Auto) Lymph # (Auto) Coffey # (Auto) Eos # (Auto) Baso # (Auto) Abs Immat Gran (auto) Absolute Neuts (auto) Absolute Nucleated RBC Nucleated RBC % Sodium Potassium Chloride Carbon Dioxide Anion Gap BUN Creatinine Estim Creat Clear Calc Estimated GFR Glucose POC Capillary Glucose 47 L* 87 171 H Calcium Magnesium Total Bilirubin AST ALT Alkaline Phosphatase Troponin I Total Protein Albumin 08/29/24 08/30/24 19:48 04:01 WBC 5.3 RBC 3.18 L Hgb 9.4 L Hct 30.1 L MCV 94.7 MCH 29.6 MCHC 31.2 L RDW 17.2 H Plt Count 302 MPV 9.3 Immature Gran % (Auto) Neut % (Auto) Lymph % (Auto) Coffey % (Auto) Eos % (Auto) Baso % (Auto) Lymph # (Auto) Coffey # (Auto) Eos # (Auto) Baso # (Auto) Abs Immat Gran (auto) Absolute Neuts (auto) Absolute Nucleated RBC Nucleated RBC % Sodium 139 Potassium 3.9 Chloride 102 Carbon Dioxide 33 H Anion Gap 4 BUN 15 D Creatinine 0.64 L Estim Creat Clear Calc 117 Estimated GFR > 60 Glucose 172 H POC Capillary Glucose 154 H Calcium 8.6 Magnesium Total Bilirubin 0.2 AST 36 ALT 23 Alkaline Phosphatase 50 Troponin I Total Protein 6.0 L Albumin 3.6 Quality VTE Prophylaxis VTE prophylaxis: pharmacologic ordered (Lovenox 40 mg subQ daily) Hospitalist MIPS Advance Care Plan I have confirmed that the patient's Advanced Care Plan is present, code status is documented, or surrogate decision maker is listed in patient medical record.: Yes Medication Reconciliation I have utilized all available resources to obtain, update and review the patients current medications (includes all prescriptions, OTC, herbals, cannabis, and nutritional supplements).: Yes
[2024-08-30 07:54] LABS: Glucose Point of Care 123 mg/dl (65-105)
[2024-08-30] MEDS: ENOXAPARIN 40 MG/0.4 ML SYRINGE SUB-Q (08:38)
[2024-08-30] MEDS: POTASSIUM CHLORIDE 20 MEQ ER TABLET PO (08:38)
[2024-08-30] MEDS: THIAMINE HCL 100 MG TABLET PO (08:38)
[2024-08-30] MEDS: SACUBITRIL/VALSARTAN 12-13 MG TABLET 1 TAB PO ×2 (08:39→20:13)
[2024-08-30] MEDS: THERAPEUTIC MULTIVITAMINS/MINERALS TAB (*BKC) 1 TABLET PO (08:39)
[2024-08-30] MEDS: FOLIC ACID 0.4 MG TABLET PO (08:39)
[2024-08-30] MEDS: PREGABALIN (*CRX) 50 MG CAPSULE 100 MG PO (08:39)
[2024-08-30] MEDS: PANTOPRAZOLE 40 MG TABLET PO (08:39)
[2024-08-30] MEDS: carvediloL 3.125 MG TABLET PO ×2 (08:40→20:14)
[2024-08-30] MEDS: clonazePAM (*CRX) 0.5 MG TABLET 2 MG PO ×2 (08:40→17:10)
[2024-08-30] MEDS: NICOTINE (*PBKC) 14 MG PATCH 1 PATCH TRANSDERM (11:25)
[2024-08-30] MEDS: ACETAMINOPHEN 500 MG TABLET PO (11:40)
[2024-08-30 11:43] LABS: Glucose Point of Care 100 mg/dl (65-105)
--- NOTE | 2024-08-30 12:33 | PC.NURSE ---
PT states he was told by a Dr at [place] not to take jardiance or ivabradine before seeing his PCP. Will notify
[2024-08-30] MEDS: fentaNYL (*CRX) 12 MCG PATCH TRANSDERM (16:07)
[2024-08-30 17:01] LABS: Glucose Point of Care 164 mg/dl (65-105)
[2024-08-30] MEDS: MELATONIN 5 MG TABLET 10 MG PO (20:13)
[2024-08-30] MEDS: ZOLPIDEM TARTRATE (*CRX) 5 MG TABLET 10 MG PO (20:13)
[2024-08-30 20:16] LABS: Glucose Point of Care 182 mg/dl (65-105)
[2024-08-30] MEDS: chlordiazePOXIDE (*CRX) 25 MG CAPSULE 50 MG PO (23:02)
[2024-08-31] VITALS: PULSE 92
[2024-08-31 03:33] VITALS: BP 95/61; PULSE 90; RESP 18; TEMP 36.7; O2SAT 98
[2024-08-31] MEDS: oxyCODONE/ACETAMINOPHEN (*CRX) 10-325 MG TABLET 1 TAB PO (03:56)
[2024-08-31 04:00] VITALS: PULSE 83
[2024-08-31] MEDS: ONDANSETRON INJ 4 MG/2 ML VIAL IV PUSH (04:50)
[2024-08-31] MEDS: chlordiazePOXIDE (*CRX) 25 MG CAPSULE 50 MG PO (04:50)
[2024-08-31] MEDS: AZITHROMYCIN 500 MG/NS 250 ML 500 MG/250 ML BAG 250 MG IVPB (04:50)
[2024-08-31 05:04] LABS: Hematocrit 27.9 % (42.0-52.0); Hemoglobin 8.5 g/dL (14.0-18.0); Mean Corpuscular HGB Conc 30.5 g/dl (32-36); Mean Corpuscular Hemoglobin 29.6 pg (26-34); Mean Corpuscular Volume 97.2 fl (80-100); Mean Platelet Volume 9.9 fl (7.4-10.4); Platelet Count Result 251 k/mm3 (150-375); Red Blood Count 2.87 M/mm3 (4.6-6.20); Red Cell Distribution Width 16.9 % (11.5-14.5); White Blood Count 5.8 K/mm3 (4.5-10.0)
[2024-08-31 05:15] LABS: Alanine Aminotransferase 23 U/L (6-50); Albumin Level 3.3 g/dL (3.5-5.1); Alkaline Phosphatase 46 U/L (38-126); Anion Gap 3 mmol/L (4-12); Aspartate Amino Transferase 30 U/L (17-59); Bilirubin,Total < 0.1 mg/dL (0.2-1.3); Blood Urea Nitrogen 16 mg/dL (9-20); Calcium 8.8 mg/dL (8.4-10.2); Carbon Dioxide 34 mmol/L (22-30); Chloride 100 mmol/L (98-107); Estimated CRCL calculation 110 ml/min; Estimated Glomerular Filt Rate > 60; Glucose 187 mg/dL (65-110); Potassium 4.1 mmol/L (3.4-5.0); Sodium 137 mmol/L (137-145)
[2024-08-31 08:00] VITALS: BP 106/74; PULSE 89; PULSE 93; RESP 12; TEMP 36.8; O2SAT 100
[2024-08-31 08:04] LABS: Glucose Point of Care 237 mg/dl (65-105)
[2024-08-31] MEDS: PANTOPRAZOLE 40 MG TABLET PO (09:02)
[2024-08-31] MEDS: NICOTINE (*PBKC) 14 MG PATCH 1 PATCH TRANSDERM (09:02)
[2024-08-31] MEDS: INSULIN ASPART (*BKC) 100 UNITS/ML SUB-Q (09:02)
[2024-08-31] MEDS: FOLIC ACID 0.4 MG TABLET PO (09:02)
[2024-08-31] MEDS: SACUBITRIL/VALSARTAN 12-13 MG TABLET 1 TAB PO (09:02)
[2024-08-31] MEDS: THERAPEUTIC MULTIVITAMINS/MINERALS TAB (*BKC) 1 TABLET PO (09:02)
[2024-08-31] MEDS: PREGABALIN (*CRX) 50 MG CAPSULE 100 MG PO (09:02)
[2024-08-31] MEDS: clonazePAM (*CRX) 0.5 MG TABLET 2 MG PO (09:02)
[2024-08-31] MEDS: POTASSIUM CHLORIDE 20 MEQ ER TABLET PO (09:02)
[2024-08-31] MEDS: carvediloL 3.125 MG TABLET PO (09:02)
[2024-08-31] MEDS: THIAMINE HCL 100 MG TABLET PO (09:02)
[2024-08-31] MEDS: ENOXAPARIN 40 MG/0.4 ML SYRINGE SUB-Q (09:03)
--- NOTE | 2024-08-31 18:22 | P.PNIM_ITS ---
Subjective Date/time seen: 08/31/24 18:22 Interval history: Patient left AMA prior to being seen. Objective Data Vital Signs Vital Signs: Vital Signs - 24 hr 08/30/24 20:00 08/30/24 20:00 08/30/24 20:00 Temperature 98.3 F Pulse Rate 90 Pulse Rate [Monitor] 90 Respiratory Rate 16 Blood Pressure 98/69 L Pulse Oximetry 97 Oxygen Delivery Room Air 08/30/24 20:00 08/30/24 23:31 08/30/24 23:54 Temperature Pulse Rate 90 83 Pulse Rate [Monitor] 91 Respiratory Rate Blood Pressure Pulse Oximetry Oxygen Delivery 08/31/24 00:00 08/31/24 03:33 08/31/24 04:00 Temperature 98.1 F Pulse Rate 92 90 Pulse Rate [Monitor] 83 Respiratory Rate 18 Blood Pressure 95/61 L Pulse Oximetry 98 Oxygen Delivery 08/31/24 04:00 08/31/24 08:00 08/31/24 08:00 Temperature 98.3 F Pulse Rate 83 89 Pulse Rate [Monitor] Respiratory Rate 12 Blood Pressure 106/74 Pulse Oximetry 100 Oxygen Delivery Room Air 08/31/24 08:00 Temperature Pulse Rate 93 Pulse Rate [Monitor] Respiratory Rate Blood Pressure Pulse Oximetry Oxygen Delivery Intake/Output Intake/Output: Intake & Output 08/28/24 08/29/24 08/30/24 08/31/24 23:59 23:59 23:59 23:59 Intake Total 3020 2400 1090 Output Total 1250 2875 850 Balance 1770 -475 240 Meds/Results Radiology Results: ITS Impressions Cervical Spine CT 08/29/24 07:01 IMPRESSION: 1. 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 Otherwise normal cervical spine CT. Chest X-Ray 08/29/24 07:10 IMPRESSION: 1. No acute cardiopulmonary disease. Head CT 08/29/24 09:10 IMPRESSION: 1. Normal head CT. Chest/Abdomen/Pelvis CT 08/29/24 10:14 IMPRESSION: 1. Patchy groundglass opacities, consolidation and mucous plugging in the bilateral lower lobes consistent with pneumonia. 2. No acute intra-abdominal/pelvic process. 3. Diffuse hepatic steatosis. Aorta w/Runoff CTA 08/29/24 10:25 IMPRESSION: 1. 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 2. Bilateral lower lobe pneumonia. 3. Labs Labs: Laboratory Results - last 24 hr 08/30/24 08/31/24 08/31/24 19:52 04:21 07:50 WBC 5.8 RBC 2.87 L Hgb 8.5 L Hct 27.9 L MCV 97.2 MCH 29.6 MCHC 30.5 L RDW 16.9 H Plt Count 251 MPV 9.9 Sodium 137 Potassium 4.1 Chloride 100 Carbon Dioxide 34 H Anion Gap 3 L BUN 16 Creatinine 0.68 L Estim Creat Clear Calc 110 Estimated GFR > 60 Glucose 187 H POC Capillary Glucose 182 H 237 H Calcium 8.8 Total Bilirubin < 0.1 L AST 30 ALT 23 Alkaline Phosphatase 46 Total Protein 6.0 L Albumin 3.3 L
[2024-09-01 20:19] LABS: Pneumococcal Antigen Urine NOT DETECTED
== END 2024-08-31 09:35 | disposition left against medical advice (07) ==
LOC: ANHED 08-29 05:44 → ANHIMU 08-30 13:37
PROVIDERS: General Practice; Admitting Provider Internal Medicine; Emergency Provider Registered Nurse; Visit Provider Internal Medicine
DX: A41.9 Sepsis, unspecified organism (principal); J18.9 Pneumonia, unspecified organism; I42.6 Alcoholic cardiomyopathy; I50.9 Heart failure, unspecified; F10.139 Alcohol abuse with withdrawal, unspecified; Y90.0 Blood alcohol level of less than 20 mg/100 ml; F11.20 Opioid dependence, uncomplicated; K76.0 Fatty (change of) liver, not elsewhere classified; E08.9 Diabetes mellitus due to underlying condition without complications; G62.81 Critical illness polyneuropathy; G47.00 Insomnia, unspecified; F41.9 Anxiety disorder, unspecified; F17.210 Nicotine dependence, cigarettes, uncomplicated; F12.90 Cannabis use, unspecified, uncomplicated; E43 Unspecified severe protein-calorie malnutrition; Z68.1 Body mass index [BMI] 19.9 or less, adult; Z20.822 Contact with and (suspected) exposure to COVID-19; Z87.19 Personal history of other diseases of the digestive system; Z79.4 Long term (current) use of insulin; Z79.84 Long term (current) use of oral hypoglycemic drugs; Z79.899 Other long term (current) drug therapy
CPT/HCPCS: 36415; 36600; 70450; 71045; 71250; 72125; 74176; 75635; 80048; 80053; 80307; 81003; 82077; 82805; 82948; 83605; 83690; 83735; 83880; 84443; 84484; 85018; 85025; 85027; 85380; 85610; 85730; 86140; 87040; 87449; 87637; 87899; 93005; 96361; 96365; 96367; 96375; 96376; 99285; A9270; G0378; J0456; J0696; J1171; J1650; J1815; J2060; J2405; J3411; J7030; Q9967

== ENCOUNTER 2024-09-07 04:56 | Emergency (ER) | payer BC, SELFPAY ==
[2024-09-07] VITALS (20 sets, daily range): BP systolic 80–119; BP diastolic 57–89; PULSE 101–110; RESP 14–26; TEMP 36.5–36.9; O2SAT 96–100
--- NOTE | ~2024-09-07 | XR_ITS ---
Portable chest x-ray Comparison: 08/28/2024 Clinical History: Seizure Findings: Lungs are clear, without focal consolidation or pleural effusion. Cardiomediastinal silho uette is stable. Bones and soft tissues are unremarkable. Impression: Normal chest. Reviewed, dictated and finalized at [facility]. Impression: Normal chest.
--- NOTE | ~2024-09-07 | CT_ITS ---
Non-contrast Head CT History: Possible seizure COMPARISON: 08/29/2024 Technique: Axial non-contrast imaging of the brain was performed. Dose reduction technique was used on this scan by utilizing automated exposure control and iterative reconstruction technique. The dose -length product (DLP) was 605.33 mGy-cm. Findings: There is no evidence of intracranial hemorrhage, mass lesion, or acute infarct. Brain par enchyma appears normal. The ventricles and subarachnoid spaces are normal in size. The calvarium ap pears normal. The visualized paranasal sinuses and mastoid air cells are clear. Impression: No significant abnormality seen. Reviewed, dictated and finalized at location . Impression: No significant abnormality seen.
--- NOTE | 2024-09-07 05:13 | ED.ALCOHOL ---
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 His last drink had been 3 days ago, and he was feeling so horrible with nausea vomiting that he had a few shots prior to arrival here. Related Data Home Medications ?Medication ?Instructions ?Recorded ?Confirmed ?Last Taken ?Type clonazepam 2 mg tablet 2 mg PO BID 07/28/24 08/29/24 Unknown History cyclobenzaprine 5 mg tablet 5 mg PO Q6H 07/28/24 08/29/24 08/28/24 History ferrous sulfate 325 mg (65 mg 325 mg PO DAILY 07/28/24 08/29/24 08/28/24 History iron) tablet folic acid 400 mcg tablet 400 mcg PO DAILY 07/28/24 08/29/24 08/28/24 History furosemide 20 mg tablet 20 mg PO DAILY 07/28/24 08/29/24 Unknown History hydrocodone 10 mg-acetaminophen 1 tablet PO Q4H PRN pain (scale 07/28/24 08/29/24 Unknown History 325 mg tablet score 4-6) melatonin 10 mg tablet 10 mg PO HS PRN sleep 07/28/24 08/29/24 Unknown History spironolactone 25 mg tablet 12.5 mg PO Q12H 07/28/24 08/29/24 Unknown History (Aldactone) zolpidem 10 mg tablet 10 mg PO HS PRN insomnia 07/28/24 08/29/24 Unknown History carvedilol 3.125 mg tablet 3.125 mg PO Q12H 08/29/24 08/29/24 08/28/24 09:54 History insulin glargine 100 unit/mL (3 5 unit subcut DAILY 08/29/24 08/29/24 08/28/24 History mL) subcutaneous pen (Lantus Solostar U-100 Insulin) insulin lispro 100 unit/mL 3 unit subcut TIDWM 08/29/24 08/29/24 08/28/24 History subcutaneous pen ivabradine 5 mg tablet 5 mg PO DAILY 08/29/24 08/29/24 Unknown History ondansetron 8 mg disintegrating 8 mg PO Q6H PRN nausea and vomiting 08/29/24 08/29/24 Unknown History tablet oxycodone 10 mg tablet 10 mg PO Q6H PRN pain 08/29/24 08/29/24 Unknown History pantoprazole 40 mg tablet,delayed 40 mg PO DAILY 08/29/24 08/29/24 Unknown History release pregabalin 100 mg capsule 100 mg PO DAILY 08/29/24 08/29/24 08/28/24 History sacubitril 24 mg-valsartan 26 mg 0.5 tablet PO Q12H 08/29/24 08/29/24 08/28/24 History tablet (Entresto) Allergies Allergy/AdvReac Type Severity Reaction Status Date / Time Sulfa (Sulfonamide Allergy Unknown Unknown Verified 09/07/24 05:09 Antibiotics) sulfamethoxazole Allergy Unknown Unknown Verified 09/07/24 05:09 trimethoprim Allergy Unknown Unknown Verified 09/07/24 05:09 Review of Systems Review of Systems: All systems reviewed & are unremarkable except as noted in HPI and below PMFSH Past Medical History Medical History (Updated 09/07/24 @ 06:21 by Lorraine Givens MD) Severe protein-calorie malnutrition Diabetes mellitus Insomnia Peripheral neuropathy Dilated cardiomyopathy secondary to alcohol With prior episode of heart failure requiring ECMO fall 2023 due to cardiogenic shock Anxiety Hepatic steatosis Alcoholism Pancreatitis hx of necrotizing pancreatitis November 2023 Hx of pseudocyst that was drained Surgical History Surgical History (Updated 08/29/24 @ 07:24 by Ashley Coates DO) Personal history of extracorporeal membrane oxygenation (ECMO) History of cardiac catheterization No significant coronary artery disease History of ankle surgery Family History Family History Father Heart disease Hypertension Social History Social History (Updated 08/29/24 @ 07:25 by Ashley Coates DO) Social History: Smokes 1ppd x16 years. History of drinking to 750 mL of hard liquor a day. He also smokes marijuana. Code status: Full code Surrogate decision maker: mother Smoking packs per day: 1 Smoking cigarettes per day: 20.0 Years smoked: 16 Smoking pack-years: 16.00 Smoking status: Current every day smoker Tobacco type: cigarettes Alcohol intake: current Substance use: current Substance use type: marijuana Do You Feel Safe in your Home?: Yes Lack of Transportation: No Lack of Food: Never True Current Housing: I Have Housing Concerned About Future Housing: No Difficulty Paying Gas/Electric Bills: No Difficulty Paying for Meds: No Currently Unemployed: No Education: High School Diploma/GED Difficulty w/ Childcare or Family Care: No Spiritual care concerns: No Exam Narrative: EXAMINATION OF ORGAN SYSTEMS/BODY AREAS: Constitutional: Vital signs per nursing GENERAL:[No acute distress, non-toxic appearing.] Appears slightly intoxicated. HEAD: Normal with no signs of head trauma. EYES: EOMI, conjunctiva normal ENT: Hearing grossly intact; no tongue wag LUNGS: Nonlabored breathing. HEART: [Regular rate and rhythm] ABD: [Soft], [nontender to palpation] EXT: Normal range of motion SKIN: [No rashes or lesions.] NEURO: [No gross focal sensory or strength deficits.] No significant tremors. PSYCH: Normal affect Course Vital Signs Vital signs: Vital Signs Temperature 97.7 F 09/07/24 04:51 Pulse Rate 108 H 09/07/24 04:51 Respiratory Rate 26 H 09/07/24 04:51 Blood Pressure 102/70 09/07/24 04:51 Pulse Oximetry 96 09/07/24 04:51 Oxygen Delivery Room Air 09/07/24 04:51 Temperature 97.7 F 09/07/24 04:51 Pulse Rate 108 H 09/07/24 04:51 Respiratory Rate 26 H 09/07/24 04:51 Blood Pressure 102/70 09/07/24 04:51 Pulse Oximetry 96 09/07/24 04:51 Oxygen Delivery Room Air 09/07/24 04:51 MDM - Alcohol MDM Narrative Medical decision making narrative: 1) Differential diagnosis: Alcohol withdrawal seizures, alcohol induced seizures 2) Comorbidities: Alcohol use disorder, cardiomyopathy 3) External notes reviewed: Prior admission records and discharge summaries 4) History sources independently obtained from: With EMS 5) Discussion of management with: 6) Independent interpretation of: EKG shows sinus tachycardia rate 107, AR 132, QRS 96, QTC 426, normal axis, no significant ST elevations or depressions or signs of acute ischemia or arrhythmia. 7) Diagnostic tests or therapies considered but not ordered: 8) Social determinants of health: 9) Shared decision making: Patient presents here with concern that he may have had a seizure from alcohol withdrawal, this was unwitnessed, he cannot describe the seizure was like but that it was silent(?), he has been feeling very nauseous and sick and had some alcohol to take the edge off. On exam he does appear inebriated, no tongue wag, no significant tremors, I did review prior notes and noted his prior cardiogenic shock requiring ECMO from likely alcohol induced cardiomyopathy, given this I am reluctant to start IV without further information, thankfully chest x-ray obtained here does not show any obvious signs of volume overload without pleural effusion, cardiomegaly. BNP is only 250. Patient also denies any chest pain or shortness of breath. Will tentatively start L of fluids here slowly with phenobarbital and to help with withdrawal. He has never had seizures in the past and this was unwitnessed so I did not feel we should start any anti seizure medication without further evidence. Given potential new onset seizure CT head will be obtained. If patient is feeling better with improved vitals and normal CT then I do feel he can likely be discharged with strict follow up and librium taper. Signed out pending re-evaluation. Lab Data 09/07/24 05:18 09/07/24 05:18 Labs: Lab Results 09/07/24 09/07/24 Range/Units 05:18 05:21 WBC 8.9 (4.5-10.0) K/mm3 RBC 4.24 L (4.6-6.20) M/mm3 Hgb 12.2 L D (14.0-18.0) g/dL Hct 39.5 L (42.0-52.0) % MCV 93.2 (80-100) fl MCH 28.8 (26-34) pg MCHC 30.9 L (32-36) g/dl RDW 17.2 H (11.5-14.5) % Plt Count 381 H D (150-375) k/mm3 MPV 9.5 (7.4-10.4) fl Immature Gran % (Auto) 0.2 (0-0.5) % Neut % (Auto) 57.9 (45.5-73.1) % Lymph % (Auto) 28.7 (18.3-44.2) % Daniels % (Auto) 11.3 H (2.6-8.5) % Eos % (Auto) 1.4 (0-4.4) % Baso % (Auto) 0.5 (0.2-1.2) % Lymph # (Auto) 2.55 (0.9-3.2) K/mm3 Daniels # (Auto) 1.0 H (0.1-0.6) K/mm3 Eos # (Auto) 0.1 (0-0.3) K/mm3 Baso # (Auto) 0.0 (0.0-0.1) K/mm3 Abs Immat Gran (auto) 0.02 (0.00-0.031) K/mm3 Absolute Neuts (auto) 5.1 (1.3-6.7) K/mm3 Absolute Nucleated RBC 0.000 (0.0-0.012) K/mm3 Nucleated RBC % 0.0 (0.0-0.2) % Sodium 137 (137-145) mmol/L Potassium 5.4 H (3.4-5.0) mmol/L Chloride 88 L (98-107) mmol/L Carbon Dioxide 22 (22-30) mmol/L Anion Gap 27 H (4-12) mmol/L BUN 20 (9-20) mg/dL Creatinine 0.90 (0.7-1.3) mg/dL Estim Creat Clear Calc 89 ml/min Estimated GFR > 60 (59 - ) Glucose 106 (65-110) mg/dL Calcium 10.2 (8.4-10.2) mg/dL Total Bilirubin 0.7 (0.2-1.3) mg/dL AST 301 H (17-59) U/L ALT 79 H (6-50) U/L Alkaline Phosphatase 78 (38-126) U/L NT-Pro-B Natriuret Pep 250 H (19.9-100) pg/mL Total Protein 8.0 (6.3-8.2) g/dL Albumin 5.5 H (3.5-5.1) g/dL Urine Opiates Screen Negative (Negative) Urine Methadone Screen Negative (Negative) Ur Barbiturates Screen Negative (Negative) Ur Phencyclidine Scrn Negative (Negative) Ur Amphetamine Screen Negative (Negative) U Benzodiazepines Scrn Positive A (Negative) Urine Cocaine Screen Negative (Negative) U Cannabinoids Screen Negative (Negative) Ethyl Alcohol 207 (<10) mg/dL Imaging Data Radiologist's impression: ITS Impressions Chest X-Ray 09/07/24 06:17 Impression: Normal chest. Head CT 09/07/24 06:36 Impression: No significant abnormality seen. Discharge Plan Discharge Clinical Impression: Alcoholic intoxication Alcohol withdrawal Qualifiers: Complication of substance-induced condition: uncomplicated Qualified Code(s): F10.930 - Alcohol use, unspecified with withdrawal, uncomplicated Patient Disposition: Home Condition: Stable Instructions: Abuse of Alcohol (ED), Alcohol Withdrawal (ED) Patient Language: Maldivian Prescriptions: New chlordiazepoxide HCl 25 mg capsule 25 mg PO Q6-12H PRN (Reason: alcohol withdrawal) Qty: 15 0RF Rx Instructions: Take 2 tabs every 6 to 12 hours on day 1; 1 tab every 6 hours on day 2; 1 tab every 12 hours on day 3; 1 tab at night on day 4. famotidine 20 mg tablet 20 mg PO DAILY Qty: 30 0RF ondansetron 4 mg tablet,disintegrating 4 mg PO Q8H PRN (Reason: nausea and vomiting) Qty: 10 0RF No Action hydrocodone-acetaminophen 10-325 mg tablet 1 tablet PO Q4H PRN (Reason: pain (scale score 4-6)) spironolactone [Aldactone] 25 mg tablet 12.5 mg PO Q12H clonazepam 2 mg tablet 2 mg PO BID zolpidem 10 mg tablet 10 mg PO HS PRN (Reason: insomnia) cyclobenzaprine 5 mg tablet 5 mg PO Q6H furosemide 20 mg tablet 20 mg PO DAILY folic acid 400 mcg tablet 400 mcg PO DAILY melatonin 10 mg tablet 10 mg PO HS PRN (Reason: sleep) ferrous sulfate 325 mg (65 mg iron) tablet 325 mg PO DAILY carvedilol 3.125 mg tablet 3.125 mg PO Q12H ivabradine 5 mg tablet 5 mg PO DAILY pantoprazole 40 mg tablet,delayed release (DR/EC) 40 mg PO DAILY insulin lispro 100 unit/mL insulin pen 3 unit SUBCUT TIDWM pregabalin 100 mg capsule 100 mg PO DAILY insulin glargine [Lantus Solostar U-100 Insulin] 100 unit/mL (3 mL) insulin pen 5 unit SUBCUT DAILY oxycodone 10 mg tablet 10 mg PO Q6H PRN (Reason: pain) Entresto 24-26 mg tablet 0.5 tablet PO Q12H ondansetron 8 mg tablet,disintegrating 8 mg PO Q6H PRN (Reason: nausea and vomiting) Follow-up/Referrals: Harvey Churchill MD [Physician] - 2 Days PHYSICIAN NOT ON STAFF,NONSTAFF [Primary Care Provider] -
--- NOTE | 2024-09-07 05:15 | PC.NURSE ---
hold fluids per edp
--- OUTSIDE RECORDS SUMMARY | 2024-09-07 05:23 | XMS_ITS | Referral Summary ---
Author Organization [facility] [place] [address] Address [address] [place] [address] Care Team Providers Care Editorial Writer Name Role Phone Pelon Rodriguez MD Primary Care Provi panda Erich Infante MD Unavailable [phone] Simran Pruett Unavailable Unavailable Encounters Date Type Department Care Team Description 08/23/2024 SHOP/CHAP Initial Outreach [facility] OP CASE MANAGEMENT [address] [place] [address] Angelic Melton RN 08/23/2024 SHOP/CHAP Initial Eligibility Review [facility] OP CASE MANAGEMENT 1 [place] [address] Angelic Melton RN 08/15/2024 6:09 AM CDT - 08/21/2024 2:06 PM CDT Hospital Encounter [facility] 1 [place] [address] Wenceslao Reina MD Freer, MD Aubrey Alfonso, Jesse Arvizu MD Cardiogenic shock (HCC) (Primary Dx) Discharge Disposition: Discharge to home or self care 08/16/2024 [facility] CHW Eligibility Review [facility] Community Health Worker [address] [place] [address] [address] [place] [address] Lindsey Jiang 08/13/2024 Telephone [facility] Transplant Heart [address] [facility] [address] Mailstop -[phone] [place] [address] Ginette Chavez RN 08/11/2024 Telephone [facility] Transplant Heart [address] [facility] [address] Mailstop 29-286 [place] [address] Reena Ames 08/10/2024 Telephone [facility] Medical Group Cardiology [address] [facility] [address], [place] [address] Tnoy Mcelroy MD critical postassium level 08/06/2024 Telephone [facility] Medical [facility] Cardiology [address] [facility] [address] [place] [address] [phone] Tony Mcelroy MD 08/05/2024 Orders Only [facility] Medical [facility] Cardiology [address] [facility] [address] [place] [phone] Kelly Friend NP 08/03/2024 Orders Only [facility] Medical [facility] Cardiology [address] [facility] [address] [place] [phone] Wilbert Humphreys MD 07/27/2024 Telephone [facility] Transplant Heart [address] [facility] [address] Mailop -47-268 [place] [address] Ginette Chavez RN 07/27/2024 9:45 AM CDT Office Visit [facility] Cardiology [facility] Medical Office Building 3 [address] [place] [address] Erich Infante MD Chronic combined systolic and diastolic congestive heart failure (HCC) (Primary Dx); Receiving inotropic medication; Alcoholic cardiomyopathy (HCC); Alcohol intoxication in active alcoholic; Marijuana use; High risk medication use 07/22/2024 Telephone [facility] Transplant Heart [address] [facility] [address] Mailstop -96-575 [place] [address] Reena Ames 07/15/2024 Telephone [facility] Home Care Services [address] [place] [address] [address] [place] [address] Unknown, Notinfile 06/24/2024 Results Follow-Up [facility] 1 [facility] [place] [address] Erich Infante MD 06/24/2024 Telephone [facility] Cardiology [address] [place] [address] [place] [phone] Erich Infante MD 06/23/2024 Telephone [facility] Transplant Heart [address] [facility] [address] Mailstop [phone] [place] [address] Royal Lozada 06/23/2024 Telephone [facility] Transplant Heart [address] [facility] [address] Mailstop [phone] [place] [address] John Teixeira RN 06/23/2024 10:00 AM 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 Office Visit [facility] Cardiology [address] [place] [address] Office Building [address] [place] [address] Lurdes Chiang NP Chronic systolic heart failure (HCC) (Primary Dx) 06/23/2024 8:30 AM 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 Ancillary Procedure [facility] [address] [place] [address] [address] [place] [address] Chronic combined systolic and diastolic congestive heart failure (HCC) 06/23/2024 Telephone [facility] Cardiology [address] [place] [address] Medical Office Building [address] [place] [address] Lurdes Chiang NP from Last 3 Months [...] Tobacco: Former Tobacco Cessation:Counseling Given: Not Answered [facility] Utilities Answer Date Recorded In the past 12 months has [employer] gas, oil, or water [employer] threatened to shut off services in [...] often do you attend chur ch or lutheran services? 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 Gender Identity Not on file Sexual Orientation [...] DOPPLER/CF W CONTRAST Routine 06/23/2024 9:34 AM 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 Chronic combined systolic and diastolic congestive heart failure (HCC) POCT LIPID PANEL Routine 04/16/2024 3:29 PM 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 Chronic systolic congestive heart failure (HCC) from Last 3 Months or Most Recently Relevant to Health Maintenance Results * (ABNORMAL) POCT glucose (08/21/2024 8:12 AM CDT) Glucose, POC 264(H) 70 - 199 mg/dL Blood 08/21/2024 8:12 AM CDT 08/21/2024 8:12 AM CDT us Jesse Burgos MD LAB POCT ORDERABLES - DEVICE Fi nal Result [facility] [place] [address] * eGFR (08/21/2024 5:01 AM CDT) eGFR [...] ORDERABLES Final Resu lt Performing Organization Address City/[facility]/ZIP Co de Phone Number [facility] [place] [address] * Phosphorus (08/21/2024 5:01 AM CDT) Phosphorus, pl 3.4 2.3 - 4.5 mg/dL Blood 08/21/2024 5:01 AM CDT 08/21/2024 6:09 AM CDT Jesse Burgos MD LAB BLOOD ORDERABLES Final Resu lt Performing Organization Address City/[facility] Co de Phone Number [facility] [place] [address] * (ABNORMAL) Basic metabolic panel (08/21/2024 5:01 AM CDT) Sodium 138 135 - 145 mmol/L Potassium, pl 4.4 3.3 - 4.9 mmol/L [facility] Chloride 95(L) 97 - 110 mmol/L [facility] CO2 33(H) 22 - 32 mmol/L [facility] Anion gap 10 2 - 15 mmol/L [facility] BUN 25 6 - 25 mg/dL [facility] Creatinine 0.74(L) 0.80 - 1.30 mg/dL [facility] Glucose 233(H) 70 - 199 mg/dL [facility] Comment: Interpretive Data Fasting glucose >/= [...] 2022. Calcium 10.0 8.5 - 10.3 mg/dL [facility] Blood 08/21/2024 5:01 AM CDT 08/21/2024 6:09 AM CDT Jesse Burgos MD LAB BLOOD ORDERABLES Final Resu lt Performing Organization Address [facility] Co de Phone Number [facility] [place] [address] * POCT glucose (08/20/2024 8:03 PM CDT) Glucose, POC 83 70 - 199 mg/dL Blood 08/20/2024 8:03 PM CDT 08/20/2024 8:03 PM CDT Jesse Burgos MD LAB POCT ORDERABLES - DEVICE Fi nal Result Performing Organization Address [facility] de Phone Number [facility] [place] [address] * POCT glucose (08/20/2024 4:52 PM CDT) Glucose, POC 154 70 - 199 mg/dL Blood 08/20/2024 4:52 PM CDT 08/20/2024 4:52 PM CDT Jesse Burgos MD LAB POCT ORDERABLES - DEVICE Fi nal Result Performing Organization Address [facility] Co de Phone Number [facility] [place] [address] * (ABNORMAL) POCT glucose (08/20/2024 12:27 PM CDT) Glucose, POC 210(H) 70 - 199 mg/dL Blood 08/20/2024 12:2 7 PM CDT 08/20/2024 12:27 PM CDT Jesse Burgos MD LAB POCT ORDERABLES - DEVICE Fi nal Result Performing Organization Address City/[facility] Co de Phone Number [facility] [place] [address] * POCT glucose (08/20/2024 8:27 AM CDT) Glucose, POC 95 70 - 199 mg/dL Blood 08/20/2024 8:27 AM CDT 08/20/2024 8:27 AM CDT Jesse Burgos MD LAB POCT ORDERABLES - DEVICE Fi nal Result Performing Organization Address [facility] de Phone Number [facility] [place] [address] * eGFR (08/20/2024 4:05 AM CDT) eGFR [...] ORDERABLES Final Resu lt Performing Organization Address City/[facility]/ZIP Co de Phone Number [facility] [place] [address] * Phosphorus (08/20/2024 4:05 AM CDT) Phosphorus, pl 4.4 2.3 - 4.5 mg/dL Blood 08/20/2024 4:05 AM CDT 08/20/2024 4:49 AM CDT Jesse Burgos MD LAB BLOOD ORDERABLES Final Resu lt Performing Organization Address City/[facility] de Phone Number [facility] [place] [address] * (ABNORMAL) Basic metabolic panel (08/20/2024 4:05 AM CDT) Sodium 139 135 - 145 mmol/L Potassium, pl 4.3 3.3 - 4.9 mmol/L [facility] Chloride 96(L) 97 - 110 mmol/L [facility] CO2 36(H) 22 - 32 mmol/L [facility] Anion gap 7 2 - 15 mmol/L [facility] BUN 22 6 - 25 mg/dL [facility] Creatinine 0.67(L) 0.80 - 1.30 mg/dL [facility] Glucose 115 70 - 199 mg/dL [facility] Comment: Interpretive Data Fasting glucose >/= [...] 2022. Calcium 10.0 8.5 - 10.3 mg/dL [facility] Blood 08/20/2024 4:05 AM CDT 08/20/2024 4:49 AM CDT Jesse Burgos MD LAB BLOOD ORDERABLES Final Resu lt Performing Organization Address [facility] Co de Phone Number [facility] [place] [address] * POCT glucose (08/19/2024 7:41 PM CDT) Glucose, POC 146 70 - 199 mg/dL Blood 08/19/2024 7:41 PM CDT 08/19/2024 7:41 PM CDT Jesse Burgos MD LAB POCT ORDERABLES - DEVICE Fi nal Result Performing Organization Address [facility] Co de Phone Number [facility] [place] [address] * POCT glucose (08/19/2024 5:27 PM CDT) Glucose, POC 175 70 - 199 mg/dL Blood 08/19/2024 5:27 PM CDT 08/19/2024 5:27 PM CDT Jesse Burgos MD LAB POCT ORDERABLES - DEVICE Fi nal Result Performing Organization Address [facility] Co de Phone Number [facility] [place] [address] * POCT glucose (08/19/2024 3:56 PM CDT) Glucose, POC 92 70 - 199 mg/dL Blood 08/19/2024 3:56 PM CDT 08/19/2024 3:56 PM CDT Jesse Burgos MD LAB POCT ORDERABLES - DEVICE Fi nal Result Performing Organization Address [facility] Co de Phone Number [facility] [place] [address] * POCT glucose (08/19/2024 11:47 AM CDT) Glucose, POC 162 70 - 199 mg/dL Blood 08/19/2024 11:4 7 AM CDT 08/19/2024 11:47 AM CDT Jesse Burgos MD LAB POCT ORDERABLES - DEVICE Fi nal Result Performing Organization Address [facility] Co de Phone Number [facility] [place] [address] * POCT glucose (08/19/2024 8:13 AM CDT) Glucose, POC 114 70 - 199 mg/dL Blood 08/19/2024 8:13 AM CDT 08/19/2024 8:13 AM CDT Jesse Burgos MD LAB POCT ORDERABLES - DEVICE Fi nal Result Performing Organization Address City/[facility] Co de Phone Number [facility] [place] [address] * POCT glucose (08/19/2024 5:31 AM CDT) Glucose, POC 121 70 - 199 mg/dL Blood 08/19/2024 5:31 AM CDT 08/19/2024 5:31 AM CDT us Jesse Burgos MD LAB POCT ORDERABLES - DEVICE Fi nal Result Performing Organization Address [facility] Co de Phone Number [facility] Department [place] [address] * eGFR (08/19/2024 5:25 AM CDT) eGFR [...] ORDERABLES Final Resu lt Performing Organization Address [facility]/ZIP Co de Phone Number [facility] [place] [address] * (ABNORMAL) Basic metabolic panel (08/19/2024 5:25 AM CDT) Sodium 138 135 - 145 mmol/L Potassium, pl 4.3 3.3 - 4.9 mmol/L [facility] Chloride 94(L) 97 - 110 mmol/L [facility] CO2 36(H) 22 - 32 mmol/L [facility] Anion gap 8 2 - 15 mmol/L [facility] BUN 24 6 - 25 mg/dL [facility] Creatinine 0.66(L) 0.80 - 1.30 mg/dL [facility] Glucose 104 70 - 199 mg/dL [facility] Comment: Interpretive Data Fasting glucose >/= [...] 2022. Calcium 10.4(H) 8.5 - 10.3 mg/dL [facility] Blood 08/19/2024 5:25 AM CDT 08/19/2024 5:56 AM CDT us Jesse Burgos MD LAB BLOOD ORDERABLES Final Resu lt [facility] [place] [address] * POCT glucose (08/18/2024 8:45 PM CDT) Glucose, POC 127 70 - 199 mg/dL Blood 08/18/2024 8:45 PM CDT 08/18/2024 8:45 PM CDT us Jesse Burgos MD LAB POCT ORDERABLES - DEVICE Fi nal Result [facility] [place] [address] * POCT glucose (08/18/2024 7:52 PM CDT) Glucose, POC 79 70 - 199 mg/dL Blood 08/18/2024 7:52 PM CDT 08/18/2024 7:52 PM CDT Jesse Burgos MD LAB POCT ORDERABLES - DEVICE Fi nal Result Performing Organization Address [facility] Co de Phone Number [facility] [place] [address] * (ABNORMAL) POCT glucose (08/18/2024 7:31 PM CDT) Glucose, POC 42(C) 70 - 199 mg/dL Comment:Glu2: RN/MD Notified Glucose comment 1 Glu2: RN/MD Notified [facility] Blood 08/18/2024 7:31 PM CDT 08/18/2024 7:31 PM CDT Jesse Burgos MD LAB POCT ORDERABLES - DEVICE Fi nal Result Performing Organization Address [facility] Co de Phone Number [facility] [place] [address] * POCT glucose (08/18/2024 4:42 PM CDT) Glucose, POC 122 70 - 199 mg/dL Blood 08/18/2024 4:42 PM CDT 08/18/2024 4:42 PM CDT Jesse Burgos MD LAB POCT ORDERABLES - DEVICE Fi nal Result Performing Organization Address [facility] [place] [address] * (ABNORMAL) POCT glucose (08/18/2024 12:09 PM CDT) Glucose, POC 202(H) 70 - 199 mg/dL Blood 08/18/2024 12:0 9 PM CDT 08/18/2024 12:09 PM CDT Jesse Burgos MD LAB POCT ORDERABLES - DEVICE Fi nal Result Performing Organization Address City/[facility] Co de Phone Number [facility] [place] [address] * POCT glucose (08/18/2024 8:10 AM CDT) Glucose, POC 82 70 - 199 mg/dL Blood 08/18/2024 8:10 AM CDT 08/18/2024 8:10 AM CDT Jesse Burgos MD LAB POCT ORDERABLES - DEVICE Fi nal Result Performing Organization Address [facility] de Phone Number [facility] [place] [address] * eGFR (08/18/2024 6:19 AM CDT) eGFR [...] ORDERABLES Final Resu lt Performing Organization Address [facility] Co de Phone Number [facility] [place] [address] * HIV 1/2 Antibody plus p24 Antigen [...] ORDE RABLES Final Result Performing Organization Address [facility] [place] [address] * Hepatitis C antibody Blood (08/18/2024 6:19 AM CDT) Pathologist [facility] Hep C Ab Nonreactive Nonreactive Comment:Antibodies to HCV no t detected. Does NOT exclude the possibility of recent exposure to HCV. Current interpretive data was last revised on 22 Blood 08/18/2024 6:19 AM CDT 08/18/2024 6:44 AM CDT Jesse Burgos MD LAB MICROBIOLOGY - GENERAL ORDJoshua BOJORQUEZ Final Result Performing Organization Address [facility] Co de Phone Number [facility] [place] [address] * RPR Blood (08/18/2024 6:19 AM CDT) RPR Nonreactive Nonreactive Blood 08/18/2024 6:19 AM CDT 08/18/2024 6:44 AM CDT us Jesse Burgos MD LAB MICROBIOLOGY - GENERAL ORDJoshua RABCRYSTAL Final Result Performing Organization Address [facility] Co de Phone Number [facility] [place] [address] * Hepatitis B Surface Antigen Blood (08/18/2024 6:19 AM CDT) HepBsAg Nonreactive Nonreactive Blood 08/18/2024 6:19 AM CDT 08/18/2024 6:44 AM CDT us Jesse Burgos MD LAB MICROBIOLOGY - GENERAL SHREYA BOJORQUEZ Final Result Performing Organization Address [facility] de Phone Number [facility] [place] [address] * Phosphorus (08/18/2024 6:19 AM CDT) Phosphorus, pl 2.9 2.3 - 4.5 mg/dL Blood 08/18/2024 6:19 AM CDT 08/18/2024 6:44 AM CDT us Wenceslao Reina MD LAB BLOOD ORDERABLES Final R esult Performing Organization Address [facility] Co de Phone Number [facility] [place] [address] * Creatine kinase (CK), total (08/18/2024 6:19 AM CDT) CK 207 40 - 300 Units/L Blood 08/18/2024 6:19 AM CDT 08/18/2024 6:44 AM CDT us Jesse Burgos MD LAB BLOOD ORDERABLES Final Resu lt [facility] [place] [address] * (ABNORMAL) Basic metabolic panel (08/18/2024 6:19 AM CDT) Sodium 137 135 - 145 mmol/L Potassium, pl 3.9 3.3 - 4.9 mmol/L [facility] Chloride 93(L) 97 - 110 mmol/L [facility] CO2 36(H) 22 - 32 mmol/L [facility] Anion gap 8 2 - 15 mmol/L [facility] BUN 21 6 - 25 mg/dL [facility] Creatinine 0.59(L) 0.80 - 1.30 mg/dL [facility] Glucose 96 70 - 199 mg/dL [facility] Comment: Interpretive Data Fasting glucose >/= [...] 2022. Calcium 9.4 8.5 - 10.3 mg/dL [facility] Blood 08/18/2024 6:19 AM CDT 08/18/2024 6:44 AM CDT us Jesse Burgos MD LAB BLOOD ORDERABLES Final Resu lt [facility] Department [place] [address] * POCT glucose (08/17/2024 7:55 PM CDT) Glucose, POC 172 70 - 199 mg/dL Blood 08/17/2024 7:55 PM CDT 08/17/2024 7:55 PM CDT Jesse Burgos MD LAB POCT ORDERABLES - DEVICE Fi nal Result Performing Organization Address [facility] de Phone Number [facility] [place] [address] * POCT glucose (08/17/2024 5:04 PM CDT) Glucose, POC 188 70 - 199 mg/dL Blood 08/17/2024 5:04 PM CDT 08/17/2024 5:04 PM CDT us Jesse Burgos MD LAB POCT ORDERABLES - DEVICE Fi nal Result Performing Organization Address [facility] Phone Number [facility] [place] [address] * POCT glucose (08/17/2024 11:11 AM CDT) Glucose, POC 163 70 - 199 mg/dL Blood 08/17/2024 11:1 1 AM CDT 08/17/2024 11:11 AM CDT us Jesse Burgos MD LAB POCT ORDERABLES - DEVICE Fi nal Result Performing Organization Address [facility] de Phone Number [facility] [place] [address] * Lactate (08/17/2024 10:58 AM CDT) Lactate 1.6 0.7 - 2.0 mmol/L Blood 08/17/2024 10:5 8 AM CDT 08/17/2024 12:40 PM CDT Jesse Burgos MD LAB BLOOD ORDERABLES Final Resu lt Performing Organization Address [facility]/ZIP Co de Phone Number [facility] Department [place] [address] * POCT glucose (08/17/2024 7:38 AM CDT) Pathologist [facility] Glucose, POC 144 70 - 199 mg/dL Blood 08/17/2024 7:38 AM CDT 08/17/2024 7:38 AM CDT us Jesse Burgos MD LAB POCT ORDERABLES - DEVICE Fi nal Result Performing Organization Address [facility] de Phone Number [facility] [place] [address] * eGFR (08/17/2024 6:06 AM CDT) [facility] eGFR >90 >=60 mL/min/1. 73 m2 [...] ORDERABLES Chelsea l Result Performing Organization Address [facility] Co de Phone Number [facility] Department [place] [address] * (ABNORMAL) Iron profile w/ IBC (08/17/2024 6:06 AM CDT) [facility] Iron 38(L) 50 - 150 mcg/dL TIBC 200(L) 250 - 400 mcg/dL [facility] Transferrin saturation 19(L) 20 - 50 % [facility] Blood 08/17/2024 6:06 AM CDT 08/17/2024 6:49 AM CDT us Isaiah Segura MD LAB BLOOD ORDERABLES Chelsea rainye Result [facility] [place] [address] * (ABNORMAL) CBC without differential (08/17/2024 6:06 AM CDT) [facility] WBC 7.55 3.80 - 9.90 K/cumm Hgb 10.3(L) 13.0 - 17.5 g/dL [facility] Hct 31.9(L) 38.9 - 50.3 % [facility] Plt 150 150 - 400 K/cumm [facility] MPV 9.1 9.1 - 12.3 fL [facility] RBC 3.58(L) 4.30 - 5.80 M/cumm [facility] MCV 89.1 81.3 - 96.4 fL [facility] MCH 28.8 27.1 - 33.3 pg [facility] MCHC 32.3 32.3 - 35.7 g/dL [facility] RDW CV 15.4(H) 11.1 - 14.9 % [facility] RDW SD 50.7(H) 35.7 - 48.1 fL [facility] NRBC abs 0.00 0.00 - 0.01 K/cumm [facility] Blood 08/17/2024 6:06 AM CDT 08/17/2024 6:49 AM CDT us Isaiah Segura MD LAB BLOOD ORDERABLES Chelsea l Result Performing Organization Address City/[facility]/ZIP Co de Phone Number [facility] [place] [address] * Phosphorus (08/17/2024 6:06 AM CDT) Phosphorus, pl 2.3 2.3 - 4.5 mg/dL Blood 08/17/2024 6:06 AM CDT 08/17/2024 6:49 AM CDT us Wenceslao Reina MD LAB BLOOD ORDERABLES Final R esult Performing Organization Address [facility] Co de Phone Number [facility] [place] [address] * Magnesium (08/17/2024 6:06 AM CDT) Magnesium 2.1 1.4 - 2.5 mg/dL Blood 08/17/2024 6:06 AM CDT 08/17/2024 6:49 AM CDT us Isaiah Segura MD LAB BLOOD ORDERABLES Chelsea l Result Performing Organization Address [facility] Co de Phone Number [facility] [place] [address] * Folate (08/17/2024 6:06 AM CDT) Folic acid >20.0 >=5.0 ng/mL Blood 08/17/2024 6:06 AM CDT 08/17/2024 6:49 AM CDT us Isaiah Segura MD LAB BLOOD ORDERABLES Chelsea l Result Performing Organization Address City/[facility]/ZIP Co de Phone Number [facility] [place] [address] * Ferritin (08/17/2024 6:06 AM CDT) [facility] Ferritin 234 30 - 400 ng/mL Blood 08/17/2024 6:06 AM CDT 08/17/2024 6:49 AM CDT Isaiah Segura MD LAB BLOOD ORDERABLES Chelsea l Result Performing Organization Address City/[facility] Co de Phone Number [facility] Department [place] [address] * (ABNORMAL) Vitamin B12 (08/17/2024 6:06 AM CDT) [facility] Vitamin B12 1,618(H) 230 - 1,250 pg/mL Blood 08/17/2024 6:06 AM CDT 08/17/2024 6:49 AM CDT Isaiah Segura MD LAB BLOOD ORDERABLES Chelsea l Result Performing Organization Address [facility] de Phone Number [facility] [place] [address] * (ABNORMAL) Basic metabolic panel (08/17/2024 6:06 AM CDT) [facility] Sodium 135 135 - 145 mmol/L Potassium, pl 3.6 3.3 - 4.9 mmol/L [facility] Chloride 92(L) 97 - 110 mmol/L [facility] CO2 36(H) 22 - 32 mmol/L [facility] Anion gap 7 2 - 15 mmol/L [facility] BUN 14 6 - 25 mg/dL [facility] Creatinine 0.78(L) 0.80 - 1.30 mg/dL [facility] Glucose 124 70 - 199 mg/dL [facility] Comment: Interpretive Data Fasting glucose >/= [...] 2022. Calcium 9.2 8.5 - 10.3 mg/dL [facility] Blood 08/17/2024 6:06 AM CDT 08/17/2024 6:49 AM CDT Isaiah Segura MD LAB BLOOD ORDERABLES Chelsea l Result Performing Organization Address [facility] Co de Phone Number [facility] [place] [address] * POCT glucose (08/16/2024 9:19 PM CDT) Glucose, POC 173 70 - 199 mg/dL Blood 08/16/2024 9:19 PM CDT 08/16/2024 9:19 PM CDT Isaiah Segura MD LAB POCT ORDERABLES - DEV ICE Final Result Performing Organization Address [facility] de Phone Number [facility] [place] [address] * POCT glucose (08/16/2024 9:10 PM CDT) Glucose, POC 192 70 - 199 mg/dL Blood 08/16/2024 9:10 PM CDT 08/16/2024 9:10 PM CDT Isaiah Segura MD LAB POCT ORDERABLES - DEV ICE Final Result Performing Organization Address [facility] Co de Phone Number [facility] [place] [address] * Lactate (08/16/2024 7:03 PM CDT) Lactate 1.6 0.7 - 2.0 mmol/L Blood 08/16/2024 7:03 PM CDT 08/16/2024 7:17 PM CDT Isaiah Segura MD LAB BLOOD ORDERABLES Chelsea l Result Performing Organization Address City/[facility]/ZIP Co de Phone Number [facility] [place] [address] * POCT glucose (08/16/2024 5:13 PM CDT) Glucose, POC 125 70 - 199 mg/dL Blood 08/16/2024 5:13 PM CDT 08/16/2024 5:13 PM CDT Isaiah Segura MD LAB POCT ORDERABLES - DEV ICE Final Result Performing Organization Address [facility] Co de Phone Number [facility] [place] [address] * Lactate (08/16/2024 4:56 PM CDT) Lactate 1.2 0.7 - 2.0 mmol/L Blood 08/16/2024 4:56 PM CDT 08/16/2024 5:29 PM CDT Isaiah Segura MD LAB BLOOD ORDERABLES Chelsea l Result Performing Organization Address [facility] Co de Phone Number [facility] [place] [address] * (ABNORMAL) POCT glucose (08/16/2024 11:23 AM CDT) Glucose, POC 269(H) 70 - 199 mg/dL Blood 08/16/2024 11:2 3 AM CDT 08/16/2024 11:23 AM CDT us Isaiah Segura MD LAB POCT ORDERABLES - DEV ICE Final Result [facility] [place] [address] * TRANSTHORACIC ECHO (TTE) COMPLETE W DOPPLER/CF W CONTRAST (08/16/2024 11:21 AM CDT) Anatomical Region Laterality Modality Ultrasound 08/16/2024 10:0 1 AM CDT Narrative 08/16/2024 11:58 AM CDT [facility] [place] [address] Transthoracic Echocardiographic Report Patient Name: SOPHIA HANNA STEPHEN : 1990 (34y 3m) Gender: M Study Date: 08/16/2024 10:01:37 AM Ht(Inch): 72 Wt(Lb): 138.01 BSA: 1.78 Rn Pediatric: Patricia Carmichael RDCS Location: [id number] Order Provider: WENCESLAO REINA Heart Rate: 106 [facility] [place] [place] [address] Transthoracic Echocardiographic Report Patient Name: SOPHIA HANNA STEPHEN : 1990 (34y 3m) Gender: M Study Date: 08/16/2024 10:01:37 AM Ht(Inch): 72 Wt(Lb): 138.01 BSA: 1.78 Rn Pediatric: Patricia Carmichael RDCS Location: [id number] Order Provider:WENCESLAO REINA Heart Rate: 106 BMI: [...] LA Length 4C 3.89 cm MV Decel [id number] msec [ 104.00 - 258.00 ] LA [...] Result [facility] [place] [address] * (ABNORMAL) POCT glucose (08/16/2024 9:06 AM CDT) Glucose, POC 287(H) 70 - 199 mg/dL Blood 08/16/2024 9:06 AM CDT 08/16/2024 9:06 AM CDT us Isaiah Segura MD LAB POCT ORDERABLES - DEV ICE Final Result Performing Organization Address [facility] Co de Phone Number [facility] Department [place] [address] * eGFR (08/16/2024 9:01 AM CDT) eGFR [...] ORDERABLES Final R esult Performing Organization Address City/[facility]/ZIP Co de Phone Number [facility] [place] [address] * (ABNORMAL) CBC without differential (08/16/2024 9:01 AM CDT) WBC 10.14(H) 3.80 - 9.90 K/cumm Hgb 11.4(L) 13.0 - 17.5 g/dL [facility] Hct 34.3(L) 38.9 - 50.3 % [facility] Plt 174 150 - 400 K/cumm [facility] MPV 9.6 9.1 - 12.3 fL [facility] RBC 3.92(L) 4.30 - 5.80 M/cumm [facility] MCV 87.5 81.3 - 96.4 fL [facility] MCH 29.1 27.1 - 33.3 pg [facility] MCHC 33.2 32.3 - 35.7 g/dL [facility] RDW CV 15.2(H) 11.1 - 14.9 % [facility] RDW SD 48.6(H) 35.7 - 48.1 fL [facility] NRBC abs 0.00 0.00 - 0.01 K/cumm [facility] Blood 08/16/2024 9:01 AM CDT 08/16/2024 10:05 AM CDT Wenceslao Reina MD LAB BLOOD ORDERABLES Final R esult [facility] [place] [address] * (ABNORMAL) Basic metabolic panel (08/16/2024 9:01 AM CDT) Sodium 130(L) 135 - 145 mmol/L Potassium, pl 3.5 3.3 - 4.9 mmol/L [facility] Chloride 86(L) 97 - 110 mmol/L [facility] CO2 36(H) 22 - 32 mmol/L [facility] Anion gap 8 2 - 15 mmol/L [facility] BUN 8 6 - 25 mg/dL [facility] Creatinine 0.65(L) 0.80 - 1.30 mg/dL [facility] Glucose 189 70 - 199 mg/dL [facility] Comment: Interpretive Data Fasting glucose >/= [...] 2022. Calcium 9.2 8.5 - 10.3 mg/dL [facility] Blood 08/16/2024 9:01 AM CDT 08/16/2024 10:05 AM CDT Wenceslao Reina MD LAB BLOOD ORDERABLES Final R esult Performing Organization Address City/[facility] Co de Phone Number [facility] [place] [address] * Calcium, ionized (08/16/2024 5:40 AM CDT) Calcium, Ionized 4.59 4.50 - 5.10 mg/dL Blood 08/16/2024 5:40 AM CDT 08/16/2024 5:56 AM CDT Wenceslao Reina MD LAB BLOOD ORDERABLES Final R esult Performing Organization Address [facility] Co de Phone Number [facility] [place] [address] * (ABNORMAL) Phosphorus (08/16/2024 5:40 AM CDT) Phosphorus, pl 1.3(L) 2.3 - 4.5 mg/dL Blood 08/16/2024 5:40 AM CDT 08/16/2024 5:56 AM CDT Wenceslao Reina MD LAB BLOOD ORDERABLES Final R esult Performing Organization Address City/[facility] Co de Phone Number [facility] [place] [address] * (ABNORMAL) Hepatic function panel (08/16/2024 5:40 AM CDT) [facility] Bilirubin, total 0.5 0.1 - 1.2 mg/dL Bilirubin, direct 0.2 0.1 - 0.3 mg/dL [facility] Protein, pl 6.5 6.5 - 8.5 g/dL [facility] Albumin 4.2 3.5 - 5.0 g/dL [facility] Alk phos 69 40 - 130 Units/L [facility] ALT 52 7 - 55 Units/L [facility] AST 88(H) 10 - 50 Units/L [facility] Blood 08/16/2024 5:40 AM CDT 08/16/2024 5:56 AM CDT Wenceslao Reina MD LAB BLOOD ORDERABLES Final R esult Performing Organization Address City/[facility]/ZIP Co de Phone Number [facility] Department [place] [address] * POCT glucose (08/16/2024 3:49 AM CDT) [facility] Glucose, POC 179 70 - 199 mg/dL Blood 08/16/2024 3:49 AM CDT 08/16/2024 3:49 AM CDT Wenceslao Reina MD LAB POCT ORDERABLES - DEVICE Final Result Performing Organization Address [facility] Co de Phone Number [facility] [place] [address] * Oxyhemoglobin, pulmonary artery (08/15/2024 11:30 PM CDT) [facility] Oxyhemoglobin, PA 67.9 % Comment: Interpretive Data No reference range established. Current interpretive data was last revised 2019. Blood 08/15/2024 11:3 0 PM CDT 08/15/2024 11:49 PM CDT Wenceslao Reina MD LAB BLOOD ORDERABLES Final R esult Performing Organization Address [facility] Co de Phone Number [facility] [place] [address] * (ABNORMAL) Hemoglobin total, pulmonary artery (08/15/2024 11:30 PM CDT) Hemoglobin total, PA 11.6(L) 13.0 - 17.5 g/dL Blood 08/15/2024 11:3 0 PM CDT 08/15/2024 11:49 PM CDT Wenceslao Reina MD LAB BLOOD ORDERABLES Final R esult Performing Organization Address [facility] Co de Phone Number [facility] [place] [address] * POCT glucose (08/15/2024 11:30 PM CDT) Glucose, POC 186 70 - 199 mg/dL Blood 08/15/2024 11:3 0 PM CDT 08/15/2024 11:30 PM CDT Result [facility] Wenceslao Reina MD LAB POCT ORDERABLES - DEVICE Final Result Performing Organization Address [facility] Co de Phone Number [facility] [place] [address] * Lactate, whole blood (08/15/2024 11:30 PM CDT) Lactate, bld 1.8 0.7 - 2.0 mmol/L Blood 08/15/2024 11:3 0 PM CDT 08/15/2024 11:49 PM CDT Wenceslao Reina MD LAB BLOOD ORDERABLES Final R esult Performing Organization Address [facility] de Phone Number [facility] Department [place] [address] * eGFR (08/15/2024 9:17 PM CDT) eGFR [...] R esult Performing Organization Address [facility] de Phone Number [facility] Department [place] [address] * Magnesium (08/15/2024 9:17 PM CDT) Magnesium 2.1 1.4 - 2.5 mg/dL Blood 08/15/2024 9:17 PM CDT 08/15/2024 9:48 PM CDT us Mumtaz Juan MD LAB BLOOD ORDERABLES Fi nal Result Performing Organization Address [facility]/ZIP Co de Phone Number [facility] [place] [address] * (ABNORMAL) Basic metabolic panel (08/15/2024 9:17 PM CDT) Sodium 130(L) 135 - 145 mmol/L Potassium, pl 4.2 3.3 - 4.9 mmol/L [facility] Chloride 87(L) 97 - 110 mmol/L [facility] CO2 34(H) 22 - 32 mmol/L [facility] Anion gap 9 2 - 15 mmol/L [facility] BUN 10 6 - 25 mg/dL [facility] Creatinine 0.77(L) 0.80 - 1.30 mg/dL [facility] Glucose 133 70 - 199 mg/dL [facility] Comment: Interpretive Data Fasting glucose >/= [...] 2022. Calcium 9.7 8.5 - 10.3 mg/dL [facility] Blood 08/15/2024 9:17 PM CDT 08/15/2024 9:48 PM CDT Wenceslao Reina MD LAB BLOOD ORDERABLES Final R esult [facility] [place] [address] * POCT glucose (08/15/2024 9:16 PM CDT) Glucose, POC 143 70 - 199 mg/dL Blood 08/15/2024 9:16 PM CDT 08/15/2024 9:16 PM CDT Wenceslao Reina MD LAB POCT ORDERABLES - DEVICE Final Result Performing Organization Address [facility] Co de Phone Number [facility] [place] [address] * POCT glucose (08/15/2024 6:29 PM CDT) Glucose, POC 138 70 - 199 mg/dL Blood 08/15/2024 6:29 PM CDT 08/15/2024 6:29 PM CDT Wenceslao Reina MD LAB POCT ORDERABLES - DEVICE Final Result Performing Organization Address [facility] [place] [address] * POCT glucose (08/15/2024 5:17 PM CDT) Glucose, POC 198 70 - 199 mg/dL Blood 08/15/2024 5:17 PM CDT 08/15/2024 5:17 PM CDT us Wenceslao Reina MD LAB POCT ORDERABLES - DEVICE Final Result Performing Organization Address [facility] Co de Phone Number [facility] [place] [address] * POCT glucose (08/15/2024 4:21 PM CDT) Glucose, POC 170 70 - 199 mg/dL Blood 08/15/2024 4:21 PM CDT 08/15/2024 4:21 PM CDT us Wenceslao Reina MD LAB POCT ORDERABLES - DEVICE Final Result Performing Organization Address [facility] Co de Phone Number [facility] [place] [address] * Oxyhemoglobin, central venous (08/15/2024 3:22 PM CDT) Oxyhemoglobin, CV 70.4 % Comment: Interpretive Data No reference range established. Current interpretive data was last revised 2019. Blood 08/15/2024 3:22 PM CDT 08/15/2024 3:28 PM CDT us Wenceslao Reina MD LAB BLOOD ORDERABLES Final R esult [facility] [place] [address] * (ABNORMAL) Hemoglobin total, pulmonary artery (08/15/2024 3:22 PM CDT) Pathologist [facility] Hemoglobin total, PA 10.6(L) 13.0 - 17.5 g/dL Blood 08/15/2024 3:22 PM CDT 08/15/2024 3:36 PM CDT us Wenceslao Reina MD LAB BLOOD ORDERABLES Final R esult [facility] [place] [address] * eGFR (08/15/2024 3:22 PM CDT) eGFR [...] esult [facility] [place] [address] * (ABNORMAL) Pro B-type natriuretic peptide (08/15/2024 [...] ORDERABLES Final R esult Performing Organization Address City/[facility] Co de Phone Number [facility] [place] [address] * Lactate, whole blood (08/15/2024 3:22 PM CDT) Lactate, bld 1.2 0.7 - 2.0 mmol/L Blood 08/15/2024 3:22 PM CDT 08/15/2024 3:28 PM CDT us Wenceslao Reina MD LAB BLOOD ORDERABLES Final R esult Performing Organization Address [facility] Co de Phone Number [facility] [place] [address] * Phosphorus (08/15/2024 3:22 PM CDT) Phosphorus, pl 3.0 2.3 - 4.5 mg/dL Comment:Reviewed Blood 08/15/2024 3:22 PM CDT 08/15/2024 3:44 PM CDT us Wenceslao Reina MD LAB BLOOD ORDERABLES Final R esult Performing Organization Address [facility] Co de Phone Number [facility] [place] [address] * Magnesium (08/15/2024 3:22 PM CDT) Magnesium 2.3 1.4 - 2.5 mg/dL Blood 08/15/2024 3:22 PM CDT 08/15/2024 3:44 PM CDT Wenceslao Reina MD LAB BLOOD ORDERABLES Final R esult [facility] Department [place] [address] * (ABNORMAL) Basic metabolic panel (08/15/2024 3:22 PM CDT) Sodium 133(L) 135 - 145 mmol/L Potassium, pl 4.1 3.3 - 4.9 mmol/L [facility] Chloride 89(L) 97 - 110 mmol/L [facility] CO2 33(H) 22 - 32 mmol/L [facility] Anion gap 11 2 - 15 mmol/L [facility] BUN 14 6 - 25 mg/dL [facility] Creatinine 0.93 0.80 - 1.30 mg/dL [facility] Glucose 145 70 - 199 mg/dL [facility] Comment: Interpretive Data Fasting glucose >/= [...] 2022. Calcium 10.1 8.5 - 10.3 mg/dL [facility] Blood 08/15/2024 3:22 PM CDT 08/15/2024 3:44 PM CDT Wenceslao Reina MD LAB BLOOD ORDERABLES Final R esult Performing Organization Address City/[facility]/ZIP Co de Phone Number [facility] Department [place] [address] * POCT glucose (08/15/2024 3:20 PM CDT) Glucose, POC 146 70 - 199 mg/dL Blood 08/15/2024 3:20 PM CDT 08/15/2024 3:20 PM CDT Wenceslao Reina MD LAB POCT ORDERABLES - DEVICE Final Result Performing Organization Address [facility] [place] [address] * POCT glucose (08/15/2024 2:40 PM CDT) Glucose, POC 93 70 - 199 mg/dL Blood 08/15/2024 2:40 PM CDT 08/15/2024 2:40 PM CDT Wenceslao Reina MD LAB POCT ORDERABLES - DEVICE Final Result Performing Organization Address [facility] [place] [address] * XR Chest 1 View (08/15/2024 2:40 PM CDT) Anatomical Region Laterality Modality Body, Chest N/A Computed Radiogr aphy 08/16/2024 9:53 AM CDT Impressions 08/16/2024 9:53 AM CDT 1. No prior examination available for comparison. A right peripherally inserted central venous catheter tip is in the right atrium. Weare-Micah catheter tip overlies the main pulmonary artery. There is no pneumonic consolidation or pneumothorax. 2. Comparison is made to prior examination from the same date. The Weare-Micah catheter tip is now located in the [...] catheter tip is in the right atrium. Weare-Micah catheter tip overlies the main pulmonary artery. There is no pneumonic consolidation or pneumothorax. 2. Comparison is made to prior examination from the same date. The Weare-Micah catheter tip is now located in the [...] LAB POCT ORDERABLES - DEVICE Final Result [facility] [place] [address] * (ABNORMAL) Blood gas, arterial (08/15/2024 1:51 PM CDT) pH, Art 7.48(H) 7.35 - 7.45 PCO2, Arterial 47(H) 35 - 45 mmHg [facility] PO2, Arterial 89 83 - 108 mmHg [facility] HCO3 Art (Calculated) 35(H) 20 - 30 mmol/L [facility] BE, art 10 mmol/L [facility] Comment: Interpretive Data No Reference Range Established Current Interpretive Data was last revised on 2017 O2 Sat Art (Measured) 97(H) 90 - 95 % [facility] Blood 08/15/2024 1:51 PM CDT 08/15/2024 1:58 PM CDT us Wenceslao Reina MD LAB BLOOD ORDERABLES Final R esult Performing Organization Address City/[facility]/ZIP Co de Phone Number [facility] [place] [address] * POCT glucose (08/15/2024 1:03 PM CDT) Glucose, POC 124 70 - 199 mg/dL Blood 08/15/2024 1:03 PM CDT 08/15/2024 1:03 PM CDT Wenceslao Reina MD LAB POCT ORDERABLES - DEVICE Final Result Performing Organization Address [facility] Co de Phone Number [facility] [place] [address] * XR Abdomen Ap 1 Vw (08/15/2024 [...] catheter tip is in the right atrium. Weare-Micah catheter tip overlies the main pulmonary artery. There is no pneumonic consolidation or pneumothorax. 2. Comparison is made to prior examination from the same date. The Weare-Micah catheter tip is now located in the [...] catheter tip is in the right atrium. Weare-Micah catheter tip overlies the main pulmonary artery. There is no pneumonic consolidation or pneumothorax. 2. Comparison is made to prior examination from the same date. The Weare-Micah catheter tip is now located in the [...] 2019. Trop I hs delta 54(C) ng/L [facility] Comment:Previous critical va lue noted within 48 hours ago. Trop I hs interp Significa nt(C) [facility] Comment:Previous critical va lue noted within 48 hours ago. Blood 08/15/2024 12:3 2 PM CDT 08/15/2024 12:45 PM CDT Wenceslao Reina MD LAB BLOOD ORDERABLES Final R esult Performing Organization Address [facility] Co de Phone Number [facility] Department [place] [address] * Oxyhemoglobin, pulmonary artery (08/15/2024 12:32 PM CDT) Pathologist [facility] Oxyhemoglobin, PA 72.8 % Comment: Interpretive Data No reference range established. Current interpretive data was last revised 2019. Blood 08/15/2024 12:3 2 PM CDT 08/15/2024 12:44 PM CDT Wenceslao Reina MD LAB BLOOD ORDERABLES Final R esult [facility] Department [place] [address] * (ABNORMAL) Hemoglobin total, pulmonary artery (08/15/2024 12:32 PM CDT) Hemoglobin total, PA 10.4(L) 13.0 - 17.5 g/dL Blood 08/15/2024 12:3 2 PM CDT 08/15/2024 12:44 PM CDT us Jose J Tolbert MD LAB BLOOD ORDERABLES Final Result Performing Organization Address [facility] Co de Phone Number [facility] [place] [address] * eGFR (08/15/2024 12:32 PM CDT) eGFR [...] ORDERABLES Final R esult Performing Organization Address City/[facility]/ZIP Co de Phone Number [facility] [place] [address] * (ABNORMAL) Calcium, ionized (08/15/2024 12:32 PM CDT) Calcium, Ionized 5.14(H) 4.50 - 5.10 mg/dL Blood 08/15/2024 12:3 2 PM CDT 08/15/2024 12:55 PM CDT Wenceslao Reina MD LAB BLOOD ORDERABLES Final R esult [facility] [place] [address] * (ABNORMAL) Phosphorus (08/15/2024 12:32 PM CDT) Pathologist [facility] Phosphorus, pl 0.9(L) 2.3 - 4.5 mg/dL Blood 08/15/2024 12:3 2 PM CDT 08/15/2024 12:45 PM CDT us Wenceslao Reina MD LAB BLOOD ORDERABLES Final R esult Performing Organization Address City/[facility] Co de Phone Number [facility] Department [place] [address] * Magnesium (08/15/2024 12:32 PM CDT) [facility] Magnesium 2.4 1.4 - 2.5 mg/dL Blood 08/15/2024 12:3 2 PM CDT 08/15/2024 12:45 PM CDT Wenceslao Reina MD LAB BLOOD ORDERABLES Final R esult Performing Organization Address City/[facility] Co de Phone Number [facility] [place] [address] * (ABNORMAL) Basic metabolic panel (08/15/2024 12:32 PM CDT) Pathologist [facility] Sodium 133(L) 135 - 145 mmol/L Potassium, pl 4.2 3.3 - 4.9 mmol/L [facility] Chloride 90(L) 97 - 110 mmol/L [facility] CO2 33(H) 22 - 32 mmol/L [facility] Comment:Reviewed Anion gap 10 2 - 15 mmol/L [facility] Comment:Reviewed BUN 15 6 - 25 mg/dL [facility] Creatinine 0.97 0.80 - 1.30 mg/dL [facility] Glucose 144 70 - 199 mg/dL [facility] Comment: Interpretive Data Fasting glucose >/= [...] 2022. Calcium 10.5(H) 8.5 - 10.3 mg/dL [facility] Blood 08/15/2024 12:3 2 PM CDT 08/15/2024 12:45 PM CDT us Wenceslao Reina MD LAB BLOOD ORDERABLES Final R esult Performing Organization Address City/[facility]/ZIP Co de Phone Number [facility] [place] [address] * POCT glucose (08/15/2024 11:57 AM CDT) Glucose, POC 165 70 - 199 mg/dL Blood 08/15/2024 11:5 7 AM CDT 08/15/2024 11:57 AM CDT Wenceslao Reina MD LAB POCT ORDERABLES - DEVICE Final Result Performing Organization Address City/[facility]/ZIP Co de Phone Number [facility] [place] [address] * (ABNORMAL) Troponin I high-sensitivity 4-hour (08/15/2024 10:58 AM CDT) Trop I hs 76(H) <=35 ng/L Comment: Previous critical value noted within 48 hours ago. Interpretive Data For further hscTnI resources including the diagnostic algorithm and an aid in interpretation, copy and paste this link: https://bjhlab.testcatalog.org/show/hsTrop-1 Current Interpretive Data last revised 2019. Trop I hs delta 25(C) ng/L [facility] Comment:Previous critical va lue noted within 48 hours ago. Trop I hs interp Significa nt(C) [facility] Comment:Previous critical va lue noted within 48 hours ago. Blood 08/15/2024 10:5 8 AM CDT 08/15/2024 11:06 AM CDT us Wenceslao Reina MD LAB BLOOD ORDERABLES Final R esult Performing Organization Address [facility] Co de Phone Number [facility] [place] [address] * Oxyhemoglobin, central venous (08/15/2024 10:58 AM CDT) Oxyhemoglobin, CV 71.6 % Comment: Interpretive Data No reference range established. Current interpretive data was last revised 2019. Blood 08/15/2024 10:5 8 AM CDT 08/15/2024 11:06 AM CDT us Wenceslao Reina MD LAB BLOOD ORDERABLES Final R esult Performing Organization Address [facility] Co de Phone Number [facility] [place] [address] * (ABNORMAL) Hemoglobin total, pulmonary artery (08/15/2024 10:58 AM CDT) Hemoglobin total, PA 9.8(L) 13.0 - 17.5 g/dL Blood 08/15/2024 10:5 8 AM CDT 08/15/2024 11:06 AM CDT us Wenceslao Reina MD LAB BLOOD ORDERABLES Final R esult Performing Organization Address [facility] Co de Phone Number [facility] [place] [address] * Lactate, whole blood (08/15/2024 10:58 AM CDT) Lactate, bld 1.8 0.7 - 2.0 mmol/L Blood 08/15/2024 10:5 8 AM CDT 08/15/2024 11:06 AM CDT us Wenceslao Reina MD LAB BLOOD ORDERABLES Final R esult Performing Organization Address [facility] de Phone Number [facility] [place] [address] * POCT glucose (08/15/2024 10:51 AM CDT) Glucose, POC 165 70 - 199 mg/dL Blood 08/15/2024 10:5 1 AM CDT 08/15/2024 10:51 AM CDT us Wenceslao Reina MD LAB POCT ORDERABLES - DEVICE Final Result Performing Organization Address [facility] Co de Phone Number [facility] [place] [address] * IA INSJ NON-TUNNELED CENTRAL VENOUS CATH AGE 4 YR/> (08/15/2024 9:58 AM CDT) Narrative Wenceslao Reina MD - 08/15/2024 9:58 AM CDT Wenceslao Reina MD 08/15/2024 3:12 PM Central Line Insertion- [facility] Date/Time: 08/15/2024 9:58 AM Performed by: Ngozi Tamez MD Authorized by: Wenceslao Reina MD [place] Protocol: RN Notified of Procedure: yes Patient [...] Ultrasound guidance: Real-time needle guidance Procedural supplies: [facility]. Needle inserted, vein idenitified then guidewire inserted [...] Na, POC 130(L) 135 - 145 mmol/L [facility] K POC 4.6 3.3 - 4.9 mmol/L [facility] Comment: Interpretive Data Not all point of care methods assess for hemolysis. Confirm with instrument and retest K+ if not consistent with clinical signs and symptoms. Current Interpretive Data was last revised on 2023. Cl, POC 93(L) 97 - 110 mmol/L [facility] Ionized Ca, POC 6.02(H) 4.50 - 5.10 [...] Hb, POC 9.7(L) 13.8 - 17.2 g/dL [facility] Blood 08/15/2024 9:57 AM CDT 08/15/2024 9:57 AM CDT Wenceslao Reina MD LAB POCT ORDERABLES - DEVICE Final Result Performing Organization Address [facility] Co de Phone Number [facility] [place] [address] * (ABNORMAL) Urinalysis reflex to microscopic and culture Urine (08/15/2024 9:56 AM CDT) Color, ur Straw Yellow Clarity, ur Clear Clear [facility] Specific gravity, ur 1.008 1.003 - 1.030 [facility] pH, urine 6.0 [facility] Comment: Interpretive Data U rine pH is affected by diet, medications, systemic acid-base disturbances, and renal tubular function. pH may affect urinary stone formation. For example, urine pH below 6.0 may help reduce the tendency for calcium phosphate stones and pH greater than 6.0 may reduce the tendency for uric acid stone formation. Source: [facility] Current Interpretive Data was last revised on 2017 Protein, ur ql Negative Negative [facility] Glucose, ur ql 3+(A) Negative [facility] Ketones, ur 1+(A) Negative [facility] Bilirubin, ur Negative Negative [facility] Blood, ur 2+(A) Negative [facility] Urobilinogen, ur <2.0 <2.0 mg/dL [facility] Nitrite, ur Negative Negative [facility] Leukocyte esterase, ur Negative Negative [facility] UA reflex comment Reflex to microscopic UA will be performed. [facility] Urine 08/15/2024 9:56 AM CDT 08/15/2024 10:15 AM CDT Wenceslao Reina MD LAB MICROBIOLOGY - GENERAL O RDERABLES Final Result Performing Organization Address [facility]/ZIP Co de Phone Number [facility] [place] [address] * (ABNORMAL) Urinalysis, microscopic only (08/15/2024 9:56 AM CDT) WBC, ur 0-5 0 - 5 /HPF RBC, ur 0-2 0 - 2 /HPF [facility] Epithelial cells, squamous, ur 1-5 0 - 5 /HPF [facility] Bacteria, ur Trace(A) [facility] Mucous, ur Present(A) [facility] Culture Reflex Comment Reflex conditions for urine culture (WBC >10) not met. [facility] Urine 08/15/2024 9:56 AM CDT 08/15/2024 10:15 AM CDT us Wenceslao Reina MD LAB URINE ORDERABLES Final R esult [facility] [place] [address] * IA ARTL CATHJ/CANNULJ MNTR/TRANSFUSION SPX PRQ (08/15/2024 9:53 AM CDT) Narrative Wenceslao Reina MD - 08/15/2024 9:53 AM CDT Wenceslao Reina MD 08/15/2024 3:12 PM Arterial Line Insertion Date/Time: 08/15/2024 9:53 AM Performed by: Ngozi Tamez MD Authorized by: Wenceslao Reina MD [place] Protocol: RN Notified of Procedure: yes Informed [...] Final Result Performing Organization Address [facility] Co de Phone Number [facility] [place] [address] * eGFR (08/15/2024 8:38 AM CDT) eGFR [...] ORDERABLES F inal Result Performing Organization Address City/[facility]/ZIP Co de Phone Number [facility] [place] [address] * Critical Result Callback Chemistry (08/15/2024 8:38 AM CDT) Date Notified 20240815 Time Notified 09 [facility] TestName Anion Gap [facility] Called/Read Back Beth German [facility] Credentials RN [facility] Called By [facility] Blood 08/15/2024 8:38 AM CDT 08/15/2024 8:57 AM CDT us Kayleigh Avila MD LAB BLOOD ORDERABLES F inal Result [facility] [place] [address] * (ABNORMAL) Comprehensive metabolic panel (08/15/2024 8:38 AM CDT) Sodium 132(L) 135 - 145 mmol/L Potassium, pl 4.6 3.3 - 4.9 mmol/L [facility] Chloride 89(L) 97 - 110 mmol/L [facility] CO2 14(L) 22 - 32 mmol/L [facility] Anion gap 29(C) 2 - 15 mmol/L [facility] Comment:Reviewed BUN 19 6 - 25 mg/dL [facility] Creatinine 1.25 0.80 - 1.30 mg/dL [facility] Glucose 266(H) 70 - 199 mg/dL [facility] Comment: Interpretive Data Fasting glucose >/= [...] 2022. Calcium 10.8(H) 8.5 - 10.3 mg/dL [facility] Comment:Repeated and Verifie d Bilirubin, total 0.4 0.1 - 1.2 mg/dL [facility] Protein, pl 5.8(L) 6.5 - 8.5 g/dL [facility] Albumin 3.8 3.5 - 5.0 g/dL [facility] Alk phos 59 40 - 130 Units/L [facility] ALT 49 7 - 55 Units/L [facility] AST 94(H) 10 - 50 Units/L [facility] Blood 08/15/2024 8:38 AM CDT 08/15/2024 8:57 AM CDT Result [facility] Kayleigh Avila MD LAB BLOOD ORDERABLES F inal Result Performing Organization Address [facility]/ZIP Co de Phone Number [facility] [place] [address] * (ABNORMAL) Troponin I high-sensitivity 2-hour (08/15/2024 8:29 AM CDT) Trop I hs 66(H) <=35 ng/L Comment: Interpretive Data For further hscTnI resources including the diagnostic algorithm and an aid in interpretation, copy and paste this link: https://bjhlab.testcatalog.org/show/hsTrop-1 Current Interpretive Data last revised 2019. Trop I hs delta 15(C) ng/L [facility] Comment:Reviewed Trop I hs interp Significa nt(C) [facility] Comment:Reviewed Blood 08/15/2024 8:29 AM CDT 08/15/2024 8:57 AM CDT Wenceslao Reina MD LAB BLOOD ORDERABLES Final R esult Performing Organization Address City/[facility]/ZIP Co de Phone Number [facility] [place] [address] * Oxyhemoglobin, central venous (08/15/2024 8:29 AM CDT) Oxyhemoglobin, CV 75.8 % Comment: Interpretive Data No reference range established. Current interpretive data was last revised 2019. Blood 08/15/2024 8:29 AM CDT 08/15/2024 8:47 AM CDT us Wenceslao Reina MD LAB BLOOD ORDERABLES Final R esult Performing Organization Address City/[facility]/ZIP Co de Phone Number [facility] [place] [address] * Critical result callback Cardio chemistry (08/15/2024 8:29 AM CDT) Date Notified 20240815 Time Notified [address] [facility] Test name Trop I hs 2hr delta [facility] Called/Read Back Beth BOB Credentials RN [facility] Called By ra [facility] Blood 08/15/2024 8:29 AM CDT 08/15/2024 8:57 AM CDT us Wenceslao Reina MD LAB BLOOD ORDERABLES Final R esult Performing Organization Address City/[facility] Co de Phone Number [facility] Department [place] [address] * Critical Result Callback Chemistry (08/15/2024 8:29 AM CDT) Date Notified 20240815 Time Notified 857 [facility] TestName Lactate Whole Blood [facility] Called/Read Back Kimmy [facility] Credentials RN [facility] Called By LISA [facility] Blood 08/15/2024 8:29 AM CDT 08/15/2024 8:48 AM CDT us Wenceslao Reina MD LAB BLOOD ORDERABLES Final R esult Performing Organization Address City/[facility] Co de Phone Number [facility] [place] [address] * (ABNORMAL) Lactate, whole blood (08/15/2024 8:29 AM CDT) Pathologist [facility] Lactate, bld 4.2(C) 0.7 - 2.0 mmol/L Comment:Reviewed Blood 08/15/2024 8:29 AM CDT 08/15/2024 8:48 AM CDT Wenceslao Reina MD LAB BLOOD ORDERABLES Final R esult Performing Organization Address [facility] Co de Phone Number [facility] [place] [address] * (ABNORMAL) Beta-hydroxybutyrate (08/15/2024 7:42 AM CDT) [facility] Beta-Hydroxybut yrate 4.2(H) 0.0 - 0.5 mmol/L Blood 08/15/2024 7:42 AM CDT 08/15/2024 7:48 AM CDT Wenceslao Reina MD LAB BLOOD ORDERABLES Final R esult Performing Organization Address City/[facility] Co de Phone Number [facility] [place] [address] * Blood culture Blood (08/15/2024 7:41 AM CDT) Pathologist [facility] Report Final Report: No growth Blood 08/15/2024 7:41 AM CDT 08/15/2024 8:49 AM CDT Narrative [facility] - 08/19/2024 12:00 PM CDT From [...] performance characteristics have been verified by the [facility]. For questions about this culture, contact the Microbiology Laboratory at [phone]. Interpretive data was last revised on 24. us Wenceslao Reina MD LAB MICROBIOLOGY - GENERAL O RDERABLES Final Result [facility] [place] [address] * Blood culture Blood (08/15/2024 7:41 AM CDT) Report Final Report: No growth Blood 08/15/2024 7:41 AM CDT 08/15/2024 7:52 AM CDT N[address] [facility] - 08/19/2024 12:00 [...] performance characteristics have been verified by the [facility]. For questions about this culture, contact the Microbiology Laboratory at [phone]. Interpretive data was last revised on 24. Wenceslao Reina MD LAB MICROBIOLOGY - GENERAL O RDERABLES Final Result [facility] Department [place] [address] * (ABNORMAL) POC Blood Gas and Chemistries, [...] Final Result Performing Organization Address [facility] Co de Phone Number [facility] [place] [address] * Check Sample (08/15/2024 6:50 AM CDT) ABO Rh A Positive [facility] OTHER 08/15/2024 6:50 AM CDT 08/15/2024 7:00 AM CDT us Wenceslao Reina MD LAB BLOOD ORDERABLES Final R esult Performing Organization Address [facility] Co de Phone Number [facility] [place] [address] [facility] * (ABNORMAL) Calcium, ionized (08/15/2024 6:50 AM CDT) Calcium, Ionized 3.68(L) 4.50 - 5.10 mg/dL Blood 08/15/2024 6:50 AM CDT 08/15/2024 6:57 AM CDT us Wenceslao Reina MD LAB BLOOD ORDERABLES Final R esult Performing Organization Address [facility] Co de Phone Number [facility] [place] [address] * aPTT (08/15/2024 6:50 AM CDT) aPTT [...] R esult Performing Organization Address [facility] Co de Phone Number [facility] [place] [address] * Protime-INR (08/15/2024 6:50 AM CDT) PT 10.4 9.7 - 13.0 sec INR 0.96 0.90 - 1.20 [facility] Comment: Interpretive data Oral anticoagulant therapeutic [...] R esult Performing Organization Address [facility] [place] [address] * Type and screen (08/15/2024 6:29 AM CDT) John, indirect Negative ABO Rh A Positive [facility] Blood 08/15/2024 6:29 AM CDT 08/15/2024 6:44 AM CDT Narrative [facility] - 08/15/2024 7:32 AM CDT Has the patient had Daratumumab or Isatuximab in the past 6 months?->Unknown Wenceslao Reina MD LAB BLOOD BANK TEST ORDERABL ES Final Result Performing Organization Address [facility] Co de Phone Number [facility] [place] [address] * (ABNORMAL) Troponin I high-sensitivity series (baseline, [...] MD LAB BLOOD ORDERABLES Final R esult [facility] [place] [address] * eGFR (08/15/2024 6:26 AM CDT) eGFR [...] MD LAB BLOOD ORDERABLES Final R esult [facility] [place] [address] * (ABNORMAL) Differential, auto (08/15/2024 6:26 AM CDT) Neutrophil abs 7.40(H) 1.50 - 6.50 K/cumm Imm gran abs 0.06 0.00 - 0.10 K/cumm [facility] Lymphocyte abs 0.81 0.80 - 3.30 K/cumm [facility] Monocyte abs 1.85(H) 0.20 - 0.80 K/cumm [facility] Eosinophil abs 0.03 0.00 - 0.50 K/cumm [facility] Basophil abs 0.01 0.00 - 0.10 K/cumm [facility] Neutrophil pct 72.8 % [facility] Comment: Interpretive Data Percent cell count reference ranges are not reported, since discordance with absolute values may lead to misinterpretation of CBC data. Current Interpretive Data was last revised on 2017. Imm gran pct 0.6 % [facility] Comment: Interpretive Data Percent cell count reference ranges are not reported, since discordance with absolute values may lead to misinterpretation of CBC data. Current Interpretive Data was last revised on 2017. Lymphocyte pct 8.0 % [facility] Comment: Interpretive Data Percent cell count reference [...] revised on 2017. Eosinophil pct 0.3 % [facility] Comment: Interpretive Data Percent cell count reference [...] ORDERABLES Final R esult Performing Organization Address City/[facility]/ZIP Co de Phone Number [facility] [place] [address] * Critical Result Callback Chemistry (08/15/2024 6:26 AM CDT) Date Notified 20240815 Time Notified 901 [facility] TestName Calcium, Anion Gap, CO2 Totl [facility] Called/Read Back Wenceslao [facility] Credentials RN [facility] Called By ra [facility] Blood 08/15/2024 6:26 AM CDT 08/15/2024 6:40 AM CDT us Wenceslao Reina MD LAB BLOOD ORDERABLES Final R esult Performing Organization Address [facility] Co de Phone Number [facility] [place] [address] * Critical Result Callback Chemistry (08/15/2024 6:26 AM CDT) Date Notified 20240815 Time Notified 720 [facility] TestName Lactate Whole Blood, pH Robbin, HCO3 Robbin (Calc) [facility] Called/Read Back Hiral Regan [facility] Credentials RN [facility] Called By LISA [facility] Blood 08/15/2024 6:26 AM CDT 08/15/2024 6:40 AM CDT us Wenceslao Reina MD LAB BLOOD ORDERABLES Final R esult Performing Organization Address City/[facility]/ZIP Co de Phone Number [facility] [place] [address] * (ABNORMAL) CBC with auto differential (08/15/2024 6:26 AM CDT) [facility] WBC 10.16(H) 3.80 - 9.90 K/cumm Hgb 8.5(L) 13.0 - 17.5 g/dL [facility] Hct 26.2(L) 38.9 - 50.3 % [facility] Plt 240 150 - 400 K/cumm [facility] MPV 9.2 9.1 - 12.3 fL [facility] RBC 2.89(L) 4.30 - 5.80 M/cumm [facility] MCV 90.7 81.3 - 96.4 fL [facility] MCH 29.4 27.1 - 33.3 pg [facility] MCHC 32.4 32.3 - 35.7 g/dL [facility] RDW CV 15.4(H) 11.1 - 14.9 % [facility] RDW SD 51.3(H) 35.7 - 48.1 fL [facility] NRBC abs 0.00 0.00 - 0.01 K/cumm [facility] Blood 08/15/2024 6:26 AM CDT 08/15/2024 6:49 AM CDT Wenceslao Reina MD LAB BLOOD ORDERABLES Final R esult [facility] [place] [address] * (ABNORMAL) Lactate, whole blood (08/15/2024 6:26 AM CDT) [facility] Lactate, bld 4.6(C) 0.7 - 2.0 mmol/L Comment:Repeated and verifie d. Blood 08/15/2024 6:26 AM CDT 08/15/2024 6:40 AM CDT us Wenceslao Reina MD LAB BLOOD ORDERABLES Final R esult Performing Organization Address [facility] de Phone Number [facility] [place] [address] * (ABNORMAL) TSH (08/15/2024 6:26 AM CDT) Thyroid Stimulating Hormone 0.05(L) 0.30 - 4.20 mcIUnit/mL Blood 08/15/2024 6:26 AM CDT 08/15/2024 6:40 AM CDT us Wenceslao Reina MD LAB BLOOD ORDERABLES Final R esult Performing Organization Address [facility] de Phone Number [facility] [place] [address] * Phosphorus (08/15/2024 6:26 AM CDT) Phosphorus, pl 2.4 2.3 - 4.5 mg/dL Comment:Repeated and verifie d. Blood 08/15/2024 6:26 AM CDT 08/15/2024 6:40 AM CDT us Wenceslao Reina MD LAB BLOOD ORDERABLES Final R esult Performing Organization Address [facility] Co de Phone Number [facility] [place] [address] * Magnesium (08/15/2024 6:26 AM CDT) Magnesium 1.7 1.4 - 2.5 mg/dL Comment:Repeated and verifie d. Blood 08/15/2024 6:26 AM CDT 08/15/2024 6:40 AM CDT us Wenceslao Reina MD LAB BLOOD ORDERABLES Final R esult Performing Organization Address City/[facility] Co de Phone Number [facility] [place] [address] * Lipase (08/15/2024 6:26 AM CDT) [facility] Lipase 38 10 - 99 Units/L Blood 08/15/2024 6:26 AM CDT 08/15/2024 6:40 AM CDT Wenceslao Reina MD LAB BLOOD ORDERABLES Final R esult Performing Organization Address [facility] [place] [address] * (ABNORMAL) Hemoglobin A1c (08/15/2024 6:26 AM CDT) [facility] Hgb A1C 5.9(H) 4.0 - 5.6 % Estimated Average Glucose 123 mg/dL [facility] Comment: The ADA recommends reporting an [...] R esult Performing Organization Address [facility] Co de Phone Number [facility] [place] [address] * (ABNORMAL) Blood gas, venous (08/15/2024 6:26 AM CDT) [facility] pH, Venous 7.18(C) 7.32 - 7.43 Comment:Repeated and verifie d. PCO2, Venous 23(L) 40 - 50 mmHg [facility] Comment:Repeated and verifie d. PO2, Venous 63 mmHg [facility] Comment: Repeated and verified. Interpretive Data No Reference Range Established Current Interpretive Data was last revised on 2017. HCO3 Venous, Calculated 9(C) 20 - 30 mmol/L [facility] Comment:Repeated and verifie d. BE, venous -19 mmol/L [facility] Comment: Repeated and verified. Interpretive Data No Reference Range Established Current Interpretive Data was last revised on 2017. Blood 08/15/2024 6:26 AM CDT 08/15/2024 6:40 AM CDT Wenceslao Reina MD LAB BLOOD ORDERABLES Final R esult Performing Organization Address [facility] [facility] de Phone Number [facility] Department [place] [address] * (ABNORMAL) Ethanol (08/15/2024 6:26 AM CDT) [...] R esult Performing Organization Address [facility] de Phone Number [facility] Department [place] [address] * (ABNORMAL) Comprehensive metabolic panel (08/15/2024 6:26 AM CDT) Sodium 130(L) 135 - 145 mmol/L Comment:Repeated and verifie d. Potassium, pl 4.9 3.3 - 4.9 mmol/L [facility] Comment:Repeated and verifie d. Chloride 85(L) 97 - 110 mmol/L [facility] Comment:Repeated and verifie d. CO2 10(C) 22 - 32 mmol/L [facility] Comment:Repeated and verifie d. Anion gap 35(C) 2 - 15 mmol/L [facility] Comment:Repeated and verifie d. BUN 19 6 - 25 mg/dL [facility] Comment:Repeated and verifie d. Creatinine 1.35(H) 0.80 - 1.30 mg/dL [facility] Comment:Repeated and verifie d. Glucose 319(H) 70 - 199 mg/dL [facility] Comment: Repeated and verified. Interpretive Data [...] 2022. Calcium 6.1(C) 8.5 - 10.3 mg/dL [facility] Comment:Repeated and verifie d. Bilirubin, total 0.4 0.1 - 1.2 mg/dL [facility] Comment:Repeated and verifie d. Protein, pl 5.4(L) 6.5 - 8.5 g/dL [facility] Comment:Repeated and verifie d. Albumin 3.6 3.5 - 5.0 g/dL [facility] Comment:Repeated and verifie d. Alk phos 55 40 - 130 Units/L [facility] Comment:Repeated and verifie d. ALT 45 7 - 55 Units/L [facility] Comment:Repeated and verifie d. AST 91(H) 10 - 50 Units/L [facility] Comment:Repeated and verifie d. Blood 08/15/2024 6:26 AM CDT 08/15/2024 6:40 AM CDT Wenceslao Reina MD LAB BLOOD ORDERABLES Final R esult [facility] Department [place] [address] * (ABNORMAL) POC Blood Gas and Chemistries, Venous - (08/15/2024 6:21 AM CDT) pH, Robbin POC 7.14(C) 7.32 - 7.43 pCO2, robbin POC 24(L) 40 - 50 mmHg [facility] pO2, robbin POC 51 mmHg [facility] Na, POC 126(L) 135 - 145 mmol/L [facility] K POC 5.7(H) 3.3 - 4.9 mmol/L [facility] Comment: Interpretive Data Not all point of care methods assess for hemolysis. Confirm with instrument and retest K+ if not consistent with clinical signs and symptoms. Current Interpretive Data was last revised on 2023. Cl, POC 89(L) 97 - 110 mmol/L [facility] Ionized Ca, POC 3.48(L) 4.50 - 5.10 mg/dL [facility] Glucose, POC 338(H) 70 - 199 mg/dL [facility] Lactate, POC 4.8(C) 0.7 - 2.0 mmol/L [facility] O2 Sat, Robbin POC (Fabiana) 84 % [facility] Base excess, POC -19.2 mmol/L [facility] HCO3, Robbin POC 8(C) 20 - 30 mmol/L [facility] Hct, POC 27.0(L) 41.4 - 51.6 % [facility] Total Hb, POC 8.9(L) 13.8 - 17.2 g/dL [facility] Blood 08/15/2024 6:21 AM CDT 08/15/2024 6:21 AM CDT Wenceslao Reina MD LAB POCT ORDERABLES - DEVICE Final Result [facility] Department [place] [address] * Cardiology Document Scan (07/31/2024 4:46 PM [...] >90 EXTERNAL LAB SCRIBED eGFR in NonAfrican Northern Irish >90 >90 EXTERNAL LAB Blood 07/22/2024 2:15 PM CDT Erich Infante MD LAB BLOOD ORDERABLES Fi nal Result EXTERNAL LAB * B-type natriuretic peptide (06/24/2024) SCRIBED BNP 238 <125 pg/mL [facility] Blood 06/24/2024 Erich Infante MD LAB BLOOD ORDERABLES Fi nal Result [facility] * (ABNORMAL) Comprehensive metabolic panel (06/24/2024) Pathologist [facility] SCRIBED Sodium 139 136 - 145 mmol/L [...] SCRIBED Glucose 151(A) 70 - 99 mg/dl [facility] Calcium 9.4 8.5 - 10.1 mg/dl [facility] Bilirubin 0.9 0.2 - 1.2 mg/dl [facility] Plasma Protein 6.8 6.4 - 8.2 g/dl [facility] Albumin 4.1 3.4 - 5.0 g/dl [facility] Alkaline Phosphatase 76 50 - 136 Units/L [facility] Alanine Transaminase (ALT) 58 16 - 60 Units/L [facility] Aspartate Transaminase (AST) 78(A) 15 - 37 Units/L [facility] eGFR in NonAfrican Northern Irish >90 >90 [facility] Alb/glob ratio 1.5 1.0 - 2.0 [facility] BUN_Creat Ratio 23.3 6 - 26 [facility] Blood 06/24/2024 us Erich Infante MD LAB BLOOD ORDERABLES Fi nal Result [facility] * TRANSTHORACIC ECHO (TTE) COMPLETE W DOPPLER/CF W CONTRAST (06/23/2024 9:34 AM 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) Anatomical Region Laterality Modality Ultrasound 06/23/2024 8:59 AM 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 Narrative 06/23/2024 1:32 PM 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 [facility] Cardiac Diagnostic Lab [address], [address] [place] [address] Transthoracic Echocardiographic Report Patient Name: SOPHIA HANNA ST : 1990 (34y 2m) Gender: M Study Date: 06/23/2024 08:59:08 AM Ht(Inch): 72 Wt(Lb): 149.91 BSA: 1.86 Rn Pediatric: Joanna Mcfarlane RDCS Location: [facility] Order Provider: ARELISERICH Heart Rate: 111 BMI: [...] index. Previously Signed by:Jaciel 06/23/2024 1:31:45 PM 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 and Cong Nix M.D. 06/23/2024 1:31:45 PM 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 End of Addendum PROCEDURES: Echocardiographic Report: ([id number], [id number]) Transthoracic complete echo with strain imaging and [...] By: Cong Nix M.D. 06/23/2024 1:31:45 PM 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 Electronically Signed By: Cong Nix M.D. 06/23/2024 1:31:45 PM 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 Electronically Amended By: Cong Nix M.D. 07/20/2024 1:51:15 PM CDT [ADDENDUM] Procedure Note Cong Nix MD - 07/20/2024 [facility] Cardiac Diagnostic Lab [address] , [address] [place] [address] Transthoracic Echocardiographic Report Patient Name: SOPHIA HANNA ST : 1990 (34y 2m) Gender: M Study Date: 06/23/2024 08:59:08 AM Ht(Inch): 72 Wt(Lb): 149.91 BSA: 1.86 Rn Pediatric: Joanna Mcfarlane RDCS Location: [facility] Order Provider:ERICH INFANTE Heart Rate: 111 BMI: [...] index. Previously Signed by:SignedForBoth 06/23/2024 1:31:45 PM 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 and Cong Nix M.D. 06/23/2024 1:31:45 PM 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 End of Addendum PROCEDURES: Echocardiographic Report: ([id number], [id number]) Transthoracic complete echo withstrain imaging and contrast, [...] LA Length 2C 5.59 cm MV Decel Gepa524.26 msec [ 104.00 - 258.00 ] LA [...] By: Cong Nix M.D. 06/23/2024 1:31:45 PM 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 Electronically Signed By: Cong Nix M.D. 06/23/2024 1:31:45 PM 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 Electronically Amended By: Cong Nix M.D. 07/20/2024 1:51:15 PM CDT [ADDENDUM] Erich Infante MD CV ECHO PROCEDURES Edit ed Result - Final * POCT lipid panel (04/16/2024 3:29 PM 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) Cholesterol, POC 170 mg/dL HDL, POC 76 mg/dL Triglycerides, POC 112 mg/dL LDL Cholesterol POC 71 mg/dL Chol/HDL Ratio, POC 2.2 Non-HDL Cholesterol, POC 93 mg/dL Cholesterol Total, POC 170 mg/dL Capillary blood 04/16/2024 3 :29 PM 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 us Tony Mcelroy MD POINT OF CARE TEST ORDERABLES Fi nal Result from Last 3 Months or Most Recently Relevant to Health Maintenance Insurance [facility] ANTHEM ACCESS ANTHEM ACCESS Advance Directives For more information, please contact: [phone] * Full Code (Latest Code Status on File) Date Activated Date Inactivated Comments 08/15/2024 6:12 AM 08/21/2024 6:17 PM Care Teams Editorial Writer Relationship Specialty Start Date End Date Pelon Rodriguez MD [address] [place] [address] [address] [facility] [address] [place] [address] PCP - General Family Medicine 06/23/24 Erich Infante MD [address] [address] Consulting Physician Cardiology 07/26/24 Simran Pruett Primary Garden Implement Mechanic 07/26/24
--- OUTSIDE RECORDS SUMMARY | 2024-09-07 05:23 | XMS_ITS | Clinical Summary ---
Author Organization [facility] [place] [address] [place] [address] Care Team Providers Care Horologist Name Role Phone Michael, Pelon Piedra MD Primary Care Provi panda Erich Infante MD Unavailable [phone] Simran Pruett Unavailable Unavailable Allergies Active Allergy [...] Care Team Description 08/23/2024 SHOP/CHAP Initial Outreach [facility] OP CASE MANAGEMENT [address] [place] [address] Angelic Melton, RN 08/23/2024 SHOP/CHAP Initial Eligibility Review [facility] OP CASE MANAGEMENT [address] [place] [address] Angelic Melton, RN 08/16/2024 [facility] CHW Eligibility Review [facility] Community Health Worker [address] [place] [address] [address] [place] [address] Lindsey Jiang 08/15/2024 6:09 AM CDT - 08/21/2024 2:06 PM CDT Hospital Encounter [facility] 1 [place] [address] Wenceslao Reina MD Freer, MD Aubrey Alfonso Lyndon K., MD Cardiogenic shock (HCC) (Primary Dx) Discharge Disposition: Discharge to home or self care 08/13/2024 Telephone [facility] and [facility] Transplant Heart [address] [address] Mailstop 9029-826 [place] [address] Ginette Chavez RN 08/11/[address] [facility] Transplant Heart [address] [facility] [address] Mailstop 9029-316 [place] [address] Reena Ames 08/10/[address] [facility] Medical Group Cardiology [address] [facility] [address], [place] [address] Tony Mcelroy MD critical postassium level 08/06/[address] [facility] Medical [facility] Cardiology [address] [facility] [address] [place] [phone] Tony Meclroy MD 08/05/[address] [facility] Medical [facility] Cardiology [address] [facility] [address] [place] [phone] Kelly Friend NP 08/03/2024 Orders Only [facility] Cardiology [address] [facility] [address] [place] [phone] Wilbert Humphreys MD 07/27/2024 9:45 AM CDT Office Visit [facility] Cardiology [facility] Medical Office Building 3 [address] [place] [phone] Erich Infante MD Chronic combined systolic and diastolic congestive heart failure (HCC) (Primary Dx); Receiving inotropic medication; Alcoholic cardiomyopathy (HCC); Alcohol intoxication in active alcoholic; Marijuana use; High risk medication use 07/27/2024 Telephone [facility] and [facility] Transplant Heart [address] [facility] [address] Mailop [phone] [place] [address] Ginette Chavez, MADHURI 07/22/[address] [facility] Transplant Heart [address] [place] [address] [address] Mailstop 9029-925 [place] [address] Reena Ames 07/15/[address] [facility] Home Care Services [address] [place] [address] Unknown, Notinfile 06/24/2024 Results Follow-Up [facility] V[facility] [address] [place] [phone] Erich Infante MD 06/24/2024 Telephone [facility] Cardiology [address] [facility] 8th [place] [address] [place] [address] Erich Infante MD 06/23/2024 10:00 AM TRANSPORT CONDUCTOR Office Visit [facility] Cardiology [address] [facility] Office Building [address] [place] [address] Lurdes Chiang NP Chronic systolic heart failure (HCC) (Primary Dx) 06/23/2024 8:30 AM TRANSPORT CONDUCTOR Ancillary Procedure [facility] [address] [place] [address] 3 [address] [place] [phone] Chronic combined systolic and diastolic congestive heart failure (HCC) 06/23/2024 Telephone [facility] and [facility] Transplant Heart [address] [facility] [address] Mailstop [phone] [place] [address] Royal Lozada 06/23/[address] [facility] Transplant Heart [address] [facility] [address] Mailstop [phone] [place] [address] John Teixeira RN 06/23/2024 Telephone [facility] Cardiology [address] [place] [address] Office Building [address] [place] [address] Lurdes Cihang NP from Last 3 Months Surgical History [...] Tobacco Cessation:Counseling Given: Not Answered [facility] Utilities Answer Date Recorded In the past 12 months has e [employer], [employer], oil, or water [employer] threatened to shut off services in your [...] often do you attend chur ch or pentecostal services? Never 08/19/2024 Do you belong to any clubs o r organizations such as lutheran groups, unions, fraternal or athletic groups, or [...] any time in the past 12 m [facility], were you homeless or living in a skilled nursing (including now)? No 08/19/2024 Personal Safety Answer Date Recorded Have you ever been in or are you currently in a harmful physical or emotional relationship or is someone making you feel afraid or unsafe? Patient unable to answer 08/15/2024 Sex and Gender Information Value Date Recorded Sex Assigned at Not on file Legal Sex Male 9:52 PM TRANSPORT CONDUCTOR Gender Identity Not on file Sexual Orientation [...] DEVICE Routine 08/15/2024 1 0:51 AM CDT DE INSJ NON-TUNNELED CENTRAL VENOUS CATH AGE 5 YR/> Routine 08/15/2024 9:58 AM CDT Cardiogenic shock (HCC) POC BLOOD GAS AND CHEMISTRIES, ARTERIAL Routine 08/15/2024 9:57 AM CDT URINALYSIS, MICROSCOPIC ONLY Routine 08/15/2024 9:56 AM CDT URINALYSIS AND REFLEX TO MICROSCOPIC AND CULTURE Routine 08/15/2024 9:56 AM CDT DE ARTL CATHJ/CANNULJ MNTR/TRANSFUSION SPX PRQ Routine 08/15/2024 [...] DOPPLER/CF W CONTRAST Routine 06/23/2024 9:34 AM TRANSPORT CONDUCTOR Chronic combined systolic and diastolic congestive heart failure (HCC) POCT LIPID PANEL Routine 04/16/2024 3:29 PM TRANSPORT CONDUCTOR Chronic systolic congestive heart failure (HCC) from Last 3 Months or Most Recently Relevant to Health Maintenance Results * (ABNORMAL) POCT glucose (08/21/2024 8:12 AM CDT) Glucose, POC 264(H) 70 - 199 mg/dL Blood 08/21/2024 8:12 AM CDT 08/21/2024 8:12 AM CDT us Jesse Burgos MD LAB POCT ORDERABLES - DEVICE Fi nal Result [facility] One [facility] Department [place] [address] * eGFR (08/21/2024 5:01 AM CDT) eGFR [...] ORDERABLES Final Resu lt Performing Organization Address City/[facility]/ZIP Co de Phone Number [facility] [place] [address] * Phosphorus (08/21/2024 5:01 AM CDT) Pathologist [facility] Phosphorus, pl 3.4 2.3 - 4.5 mg/dL Blood 08/21/2024 5:01 AM CDT 08/21/2024 6:09 AM CDT Jesse Burgos MD LAB BLOOD ORDERABLES Final Resu lt Performing Organization Address [facility] de Phone Number [facility] [employer] [place] [address] * (ABNORMAL) Basic metabolic panel (08/21/2024 5:01 AM CDT) Sodium 138 135 - 145 mmol/L Potassium, pl 4.4 3.3 - 4.9 mmol/L [facility] Chloride 95(L) 97 - 110 mmol/L [facility] CO2 33(H) 22 - 32 mmol/L [facility] Anion gap 10 2 - 15 mmol/L [facility] BUN 25 6 - 25 mg/dL [facility] Creatinine 0.74(L) 0.80 - 1.30 mg/dL [facility] Glucose 233(H) 70 - 199 mg/dL [facility] Comment: Interpretive Data Fasting glucose [...] 2022. Calcium 10.0 8.5 - 10.3 mg/dL [facility] Blood 08/21/2024 5:01 AM CDT 08/21/2024 6:09 AM CDT Jesse Burgos MD LAB BLOOD ORDERABLES Final Resu lt Performing Organization Address [facility] Co de Phone Number [facility] [employer] [place] [address] * POCT glucose (08/20/2024 8:03 PM CDT) Glucose, POC 83 70 - 199 mg/dL Blood 08/20/2024 8:03 PM CDT 08/20/2024 8:03 PM CDT Jesse Burgos MD LAB POCT ORDERABLES - DEVICE Fi nal Result Performing Organization Address [facility] Co de Phone Number [facility] Department of [employer] [place] [address] * POCT glucose (08/20/2024 4:52 PM CDT) Glucose, POC 154 70 - 199 mg/dL Blood 08/20/2024 4:52 PM CDT 08/20/2024 4:52 PM CDT Jesse Burgos MD LAB POCT ORDERABLES - DEVICE Fi nal Result Performing Organization Address [facility] Co de Phone Number [facility] [employer] [place] [address] * (ABNORMAL) POCT glucose (08/20/2024 12:27 PM CDT) Glucose, POC 210(H) 70 - 199 mg/dL Blood 08/20/2024 12:2 7 PM CDT 08/20/2024 12:27 PM CDT Jesse Burgos MD LAB POCT ORDERABLES - DEVICE Fi nal Result Performing Organization Address City/[facility] Co de Phone Number [facility] Department [place] [address] * POCT glucose (08/20/2024 8:27 AM CDT) Glucose, POC 95 70 - 199 mg/dL Blood 08/20/2024 8:27 AM CDT 08/20/2024 8:27 AM CDT Jesse Burgos MD LAB POCT ORDERABLES - DEVICE Fi nal Result Performing Organization Address [facility] de Phone Number [facility] [employer] [place] [address] * eGFR (08/20/2024 4:05 AM CDT) eGFR [...] ORDERABLES Final Resu lt Performing Organization Address City/[facility]/ZIP Co de Phone Number [facility] Department of [employer] [place] [address] * Phosphorus (08/20/2024 4:05 AM CDT) Phosphorus, pl 4.4 2.3 - 4.5 mg/dL Blood 08/20/2024 4:05 AM CDT 08/20/2024 4:49 AM CDT Jesse Burgos MD LAB BLOOD ORDERABLES Final Resu lt Performing Organization Address [facility] de Phone Number [facility] [employer] [place] [address] * (ABNORMAL) Basic metabolic panel (08/20/2024 4:05 AM CDT) Sodium 139 135 - 145 mmol/L Potassium, pl 4.3 3.3 - 4.9 mmol/L [facility] Chloride 96(L) 97 - 110 mmol/L [facility] CO2 36(H) 22 - 32 mmol/L [facility] Anion gap 7 2 - 15 mmol/L [facility] BUN 22 6 - 25 mg/dL [facility] Creatinine 0.67(L) 0.80 - 1.30 mg/dL [facility] Glucose 115 70 - 199 mg/dL [facility] Comment: Interpretive Data Fasting glucose [...] 2022. Calcium 10.0 8.5 - 10.3 mg/dL [facility] Blood 08/20/2024 4:05 AM CDT 08/20/2024 4:49 AM CDT Jesse Burgos MD LAB BLOOD ORDERABLES Final Resu lt Performing Organization Address City/[facility] Co de Phone Number [facility] [employer] [place] [address] * POCT glucose (08/19/2024 7:41 PM CDT) Glucose, POC 146 70 - 199 mg/dL Blood 08/19/2024 7:41 PM CDT 08/19/2024 7:41 PM CDT Jesse Burgos MD LAB POCT ORDERABLES - DEVICE Fi nal Result Performing Organization Address [facility] Co de Phone Number [facility] Department of [employer] [place] [address] * POCT glucose (08/19/2024 5:27 PM CDT) Glucose, POC 175 70 - 199 mg/dL Blood 08/19/2024 5:27 PM CDT 08/19/2024 5:27 PM CDT Jesse Burgos MD LAB POCT ORDERABLES - DEVICE Fi nal Result Performing Organization Address City/[facility] Co de Phone Number [facility] [employer] [place] [address] * POCT glucose (08/19/2024 3:56 PM CDT) Glucose, POC 92 70 - 199 mg/dL Blood 08/19/2024 3:56 PM CDT 08/19/2024 3:56 PM CDT Jesse Burgos MD LAB POCT ORDERABLES - DEVICE Fi nal Result Performing Organization Address [facility] Co de Phone Number [facility] [employer] [place] [address] * POCT glucose (08/19/2024 11:47 AM CDT) Glucose, POC 162 70 - 199 mg/dL Blood 08/19/2024 11:4 7 AM CDT 08/19/2024 11:47 AM CDT Jesse Burgos MD LAB POCT ORDERABLES - DEVICE Fi nal Result Performing Organization Address [facility] Co de Phone Number [facility] [employer] [place] [address] * POCT glucose (08/19/2024 8:13 AM CDT) Glucose, POC 114 70 - 199 mg/dL Blood 08/19/2024 8:13 AM CDT 08/19/2024 8:13 AM CDT Jesse Burgos MD LAB POCT ORDERABLES - DEVICE Fi nal Result Performing Organization Address City/[facility] Co de Phone Number [facility] [employer] [place] [address] * POCT glucose (08/19/2024 5:31 AM CDT) Glucose, POC 121 70 - 199 mg/dL Blood 08/19/2024 5:31 AM CDT 08/19/2024 5:31 AM CDT us Jesse Burgos MD LAB POCT ORDERABLES - DEVICE Fi nal Result Performing Organization Address [facility] de Phone Number [facility] [place] [address] * eGFR (08/19/2024 5:25 AM CDT) eGFR [...] ORDERABLES Final Resu lt Performing Organization Address [facility] Co de Phone Number [facility] [place] [address] * (ABNORMAL) Basic metabolic panel (08/19/2024 5:25 AM CDT) Sodium 138 135 - 145 mmol/L Potassium, pl 4.3 3.3 - 4.9 mmol/L [facility] Chloride 94(L) 97 - 110 mmol/L [facility] CO2 36(H) 22 - 32 mmol/L [facility] Anion gap 8 2 - 15 mmol/L [facility] BUN 24 6 - 25 mg/dL [facility] Creatinine 0.66(L) 0.80 - 1.30 mg/dL [facility] Glucose 104 70 - 199 mg/dL [facility] Comment: Interpretive Data Fasting glucose [...] 2022. Calcium 10.4(H) 8.5 - 10.3 mg/dL [facility] Blood 08/19/2024 5:25 AM CDT 08/19/2024 5:56 AM CDT us Jesse Burgos MD LAB BLOOD ORDERABLES Final Resu lt Performing Organization Address City/[facility]/ZIP Co de Phone Number [facility] Department [place] [employer] [place] [address] * POCT glucose (08/18/2024 8:45 PM CDT) Glucose, POC 127 70 - 199 mg/dL Blood 08/18/2024 8:45 PM CDT 08/18/2024 8:45 PM CDT us Jesse Burgos MD LAB POCT ORDERABLES - DEVICE Fi nal Result Performing Organization Address City/[facility]/ZIP Co de Phone Number [facility] Department [place] [employer] [place] [address] * POCT glucose (08/18/2024 7:52 PM CDT) Glucose, POC 79 70 - 199 mg/dL Blood 08/18/2024 7:52 PM CDT 08/18/2024 7:52 PM CDT Jesse Burgos MD LAB POCT ORDERABLES - DEVICE Fi nal Result Performing Organization Address City/[facility] Co de Phone Number [facility] [employer] [place] [address] * (ABNORMAL) POCT glucose (08/18/2024 7:31 PM CDT) Glucose, POC 42(C) 70 - 199 mg/dL Comment:Glu2: RN/MD Notified Glucose comment 1 Glu2: RN/MD Notified [facility] Blood 08/18/2024 7:31 PM CDT 08/18/2024 7:31 PM CDT Jesse Burgos MD LAB POCT ORDERABLES - DEVICE Fi nal Result Performing Organization Address [facility] Co de Phone Number [facility] [employer] [place] [address] * POCT glucose (08/18/2024 4:42 PM CDT) Glucose, POC 122 70 - 199 mg/dL Blood 08/18/2024 4:42 PM CDT 08/18/2024 4:42 PM CDT Jesse Burgos MD LAB POCT ORDERABLES - DEVICE Fi nal Result Performing Organization Address City/[facility] [place] [address] * (ABNORMAL) POCT glucose (08/18/2024 12:09 PM CDT) Glucose, POC 202(H) 70 - 199 mg/dL Blood 08/18/2024 12:0 9 PM CDT 08/18/2024 12:09 PM CDT Jesse Burgos MD LAB POCT ORDERABLES - DEVICE Fi nal Result Performing Organization Address City/[facility] Co de Phone Number [facility] [place] [address] * POCT glucose (08/18/2024 8:10 AM CDT) Glucose, POC 82 70 - 199 mg/dL Blood 08/18/2024 8:10 AM CDT 08/18/2024 8:10 AM CDT Jesse Burgos MD LAB POCT ORDERABLES - DEVICE Fi nal Result Performing Organization Address [facility] de Phone Number [facility] [place] [address] * eGFR (08/18/2024 6:19 AM CDT) eGFR [...] ORDERABLES Final Resu lt Performing Organization Address City/[facility] Co de Phone Number [facility] Department [place] [employer] [place] [address] * HIV 1/2 Antibody plus p24 Antigen Blood (08/18/2024 6:19 AM CDT) Pathologist [facility] HIV 1/2 ab + p24 [...] ORDE RABLES Final Result Performing Organization Address [facility] [place] [address] * Hepatitis C antibody Blood (08/18/2024 6:19 AM CDT) [facility] Hep C Ab Nonreactive Nonreactive Comment:Antibodies to HCV no t detected. Does NOT exclude the possibility of recent exposure to HCV. Current interpretive data was last revised on 22 Blood 08/18/2024 6:19 AM CDT 08/18/2024 6:44 AM CDT Jesse Burgos MD LAB MICROBIOLOGY - GENERAL ORDJoshua BOJORQUEZ Final Result Performing Organization Address [facility] Co de Phone Number [facility] [place] [address] * RPR Blood (08/18/2024 6:19 AM CDT) Pathologist [facility] RPR Nonreactive Nonreactive Blood 08/18/2024 6:19 AM CDT 08/18/2024 6:44 AM CDT us Jesse Burgos MD LAB MICROBIOLOGY - GENERAL ORDE RABLES Final Result Performing Organization Address [facility] de Phone Number [facility] [place] [address] * Hepatitis B Surface Antigen Blood (08/18/2024 6:19 AM CDT) HepBsAg Nonreactive Nonreactive Blood 08/18/2024 6:19 AM CDT 08/18/2024 6:44 AM CDT us Jesse Burgos MD LAB MICROBIOLOGY - GENERAL ORDJoshua BOJORQUEZ Final Result Performing Organization Address [facility] Phone Number [facility] Department [place] [address] * Phosphorus (08/18/2024 6:19 AM CDT) Pathologist [facility] Phosphorus, pl 2.9 2.3 - 4.5 mg/dL Blood 08/18/2024 6:19 AM CDT 08/18/2024 6:44 AM CDT us Wenceslao Reina MD LAB BLOOD ORDERABLES Final R esult Performing Organization Address [facility] Co de Phone Number [facility] [place] [address] * Creatine kinase (CK), total (08/18/2024 6:19 AM CDT) CK 207 40 - 300 Units/L Blood 08/18/2024 6:19 AM CDT 08/18/2024 6:44 AM CDT us Jesse Burgos MD LAB BLOOD ORDERABLES Final Resu lt [facility] Department [place] [address] * (ABNORMAL) Basic metabolic panel (08/18/2024 6:19 AM CDT) Sodium 137 135 - 145 mmol/L Potassium, pl 3.9 3.3 - 4.9 mmol/L [facility] Chloride 93(L) 97 - 110 mmol/L [facility] CO2 36(H) 22 - 32 mmol/L [facility] Anion gap 8 2 - 15 mmol/L [facility] BUN 21 6 - 25 mg/dL [facility] Creatinine 0.59(L) 0.80 - 1.30 mg/dL [facility] Glucose 96 70 - 199 mg/dL [facility] Comment: Interpretive Data Fasting glucose [...] 2022. Calcium 9.4 8.5 - 10.3 mg/dL [facility] Blood 08/18/2024 6:19 AM CDT 08/18/2024 6:44 AM CDT us Jesse Burgos MD LAB BLOOD ORDERABLES Final Resu lt Performing Organization Address City/[facility]/ZIP Co de Phone Number [facility] BOB Shanell [facility] Department [place] [address] * POCT glucose (08/17/2024 7:55 PM CDT) Glucose, POC 172 70 - 199 mg/dL Blood 08/17/2024 7:55 PM CDT 08/17/2024 7:55 PM CDT Jesse Burgos MD LAB POCT ORDERABLES - DEVICE Fi nal Result Performing Organization Address [facility] de Phone Number [facility] [employer] [place] [address] * POCT glucose (08/17/2024 5:04 PM CDT) Glucose, POC 188 70 - 199 mg/dL Blood 08/17/2024 5:04 PM CDT 08/17/2024 5:04 PM CDT us Jesse Burgos MD LAB POCT ORDERABLES - DEVICE Fi nal Result Performing Organization Address [facility] de Phone Number [facility] [place] [employer] [place] [address] * POCT glucose (08/17/2024 11:11 AM CDT) Glucose, POC 163 70 - 199 mg/dL Blood 08/17/2024 11:1 1 AM CDT 08/17/2024 11:11 AM CDT Jesse Burgos MD LAB POCT ORDERABLES - DEVICE Fi nal Result Performing Organization Address [facility] de Phone Number [facility] [employer] [place] [address] * Lactate (08/17/2024 10:58 AM CDT) Lactate 1.6 0.7 - 2.0 mmol/L Blood 08/17/2024 10:5 8 AM CDT 08/17/2024 12:40 PM CDT Jesse Burgos MD LAB BLOOD ORDERABLES Final Resu lt Performing Organization Address [facility] Co de Phone Number [facility] Department [place] [address] * POCT glucose (08/17/2024 7:38 AM CDT) Glucose, POC 144 70 - 199 mg/dL Blood 08/17/2024 7:38 AM CDT 08/17/2024 7:38 AM CDT us Jesse Burgos MD LAB POCT ORDERABLES - DEVICE Fi nal Result Performing Organization Address [facility] Co de Phone Number [facility] [place] [address] * eGFR (08/17/2024 6:06 AM CDT) eGFR [...] ORDERABLES Chelsea l Result Performing Organization Address [facility]/ZIP Co de Phone Number [facility] Department [place] [address] * (ABNORMAL) Iron profile w/ IBC (08/17/2024 6:06 AM CDT) [facility] Iron 38(L) 50 - 150 mcg/dL TIBC 200(L) 250 - 400 mcg/dL [facility] Transferrin saturation 19(L) 20 - 50 % [facility] Blood 08/17/2024 6:06 AM CDT 08/17/2024 6:49 AM CDT us Isaiah Segura MD LAB BLOOD ORDERABLES Chelsea rainey Result [facility] Department [place] [address] * (ABNORMAL) CBC without differential (08/17/2024 6:06 AM CDT) [facility] WBC 7.55 3.80 - 9.90 K/cumm Hgb 10.3(L) 13.0 - 17.5 g/dL [facility] Hct 31.9(L) 38.9 - 50.3 % [facility] Plt 150 150 - 400 K/cumm [facility] MPV 9.1 9.1 - 12.3 fL [facility] RBC 3.58(L) 4.30 - 5.80 M/cumm [facility] MCV 89.1 81.3 - 96.4 fL [facility] MCH 28.8 27.1 - 33.3 pg [facility] [facility] MCHC 32.3 32.3 - 35.7 g/dL [facility] RDW CV 15.4(H) 11.1 - 14.9 % [facility] RDW SD 50.7(H) 35.7 - 48.1 fL [facility] NRBC abs 0.00 0.00 - 0.01 K/cumm [facility] Blood 08/17/2024 6:06 AM CDT 08/17/2024 6:49 AM CDT Isaiah Segura MD LAB BLOOD ORDERABLES Chelsea l Result Performing Organization Address City/[facility] Co de Phone Number [facility] [employer] [place] [address] * Phosphorus (08/17/2024 6:06 AM CDT) Phosphorus, pl 2.3 2.3 - 4.5 mg/dL Blood 08/17/2024 6:06 AM CDT 08/17/2024 6:49 AM CDT us Wenceslao Reina MD LAB BLOOD ORDERABLES Final R esult Performing Organization Address [facility] de Phone Number [facility] [employer] [place] [address] * Magnesium (08/17/2024 6:06 AM CDT) Magnesium 2.1 1.4 - 2.5 mg/dL Blood 08/17/2024 6:06 AM CDT 08/17/2024 6:49 AM CDT us Isaiah Segura MD LAB BLOOD ORDERABLES Chelsea l Result Performing Organization Address [facility] Co de Phone Number [facility] Department [place] [address] * Folate (08/17/2024 6:06 AM CDT) Folic acid >20.0 >=5.0 ng/mL Blood 08/17/2024 6:06 AM CDT 08/17/2024 6:49 AM CDT Isaiah Segura MD LAB BLOOD ORDERABLES Chelsea l Result Performing Organization Address City/[facility] Co de Phone Number [facility] Department [place] [address] * Ferritin (08/17/2024 6:06 AM CDT) [facility] Ferritin 234 30 - 400 ng/mL Blood 08/17/2024 6:06 AM CDT 08/17/2024 6:49 AM CDT Isaiah Segura MD LAB BLOOD ORDERABLES Chelsea l Result [facility] [place] [address] * (ABNORMAL) Vitamin B12 (08/17/2024 6:06 AM CDT) [facility] Vitamin B12 1,618(H) 230 - 1,250 pg/mL Blood 08/17/2024 6:06 AM CDT 08/17/2024 6:49 AM CDT Isaiah Segura MD LAB BLOOD ORDERABLES Chelsea l Result Performing Organization Address City/[facility] [place] [address] * (ABNORMAL) Basic metabolic panel (08/17/2024 6:06 AM CDT) [facility] Sodium 135 135 - 145 mmol/L Potassium, pl 3.6 3.3 - 4.9 mmol/L [facility] Chloride 92(L) 97 - 110 mmol/L [facility] CO2 36(H) 22 - 32 mmol/L [facility] Anion gap 7 2 - 15 mmol/L [facility] BUN 14 6 - 25 mg/dL [facility] Creatinine 0.78(L) 0.80 - 1.30 mg/dL [facility] Glucose 124 70 - 199 mg/dL [facility] Comment: Interpretive Data Fasting glucose [...] 2022. Calcium 9.2 8.5 - 10.3 mg/dL [facility] Blood 08/17/2024 6:06 AM CDT 08/17/2024 6:49 AM CDT Isaiah Segura MD LAB BLOOD ORDERABLES Chelsea l Result Performing Organization Address [facility] Co de Phone Number [facility] Department [place] [employer] [place] [address] * POCT glucose (08/16/2024 9:19 PM CDT) Glucose, POC 173 70 - 199 mg/dL Blood 08/16/2024 9:19 PM CDT 08/16/2024 9:19 PM CDT Isaiah Segura MD LAB POCT ORDERABLES - DEV ICE Final Result Performing Organization Address [facility] Co de Phone Number [facility] Department [place] [address] * POCT glucose (08/16/2024 9:10 PM CDT) Glucose, POC 192 70 - 199 mg/dL Blood 08/16/2024 9:10 PM CDT 08/16/2024 9:10 PM CDT Isaiah Segura MD LAB POCT ORDERABLES - DEV ICE Final Result Performing Organization Address [facility] Co de Phone Number [facility] Department [place] [address] * Lactate (08/16/2024 7:03 PM CDT) Lactate 1.6 0.7 - 2.0 mmol/L Blood 08/16/2024 7:03 PM CDT 08/16/2024 7:17 PM CDT Isaiah Segura MD LAB BLOOD ORDERABLES Chelsea l Result Performing Organization Address City/[facility] Co de Phone Number [facility] [place] [address] * POCT glucose (08/16/2024 5:13 PM CDT) Glucose, POC 125 70 - 199 mg/dL Blood 08/16/2024 5:13 PM CDT 08/16/2024 5:13 PM CDT Isiaah Segura MD LAB POCT ORDERABLES - DEV ICE Final Result Performing Organization Address [facility] de Phone Number [facility] [employer] [place] [address] * Lactate (08/16/2024 4:56 PM CDT) Lactate 1.2 0.7 - 2.0 mmol/L Blood 08/16/2024 4:56 PM CDT 08/16/2024 5:29 PM CDT Isaiah Segura MD LAB BLOOD ORDERABLES Chelsea l Result Performing Organization Address [facility] de Phone Number [facility] [employer] [place] [address] * (ABNORMAL) POCT glucose (08/16/2024 11:23 AM CDT) Glucose, POC 269(H) 70 - 199 mg/dL Blood 08/16/2024 11:2 3 AM CDT 08/16/2024 11:23 AM CDT us Isaiah Segura MD LAB POCT ORDERABLES - DEV ICE Final Result [facility] Department [place] [address] * TRANSTHORACIC ECHO (TTE) COMPLETE W DOPPLER/CF W CONTRAST (08/16/2024 11:21 AM CDT) Anatomical Region Laterality Modality Ultrasound 08/16/2024 10:0 1 AM CDT Narrative 08/16/2024 11:58 AM CDT [facility] [place] [address] Transthoracic Echocardiographic Report Patient Name: SOPHIA HANNA STEPHEN : 1990 (34y 3m) Gender: M Study Date: 08/16/2024 10:01:37 AM Ht(Inch): 72 Wt(Lb): 138.01 BSA: 1.78 Business Division Chair: Patricia Carmichael RDCS Location: [id number] Order Provider: WENCESLAO REINA Heart Rate: 106 [...] index. Eccentric LV hypertrophy. The Ejection Fraction (Vaelntin's) is measured at 36 %. Left ventricular [...] Procedure Note Re Bautista MD - 08/16/2024 [facility] [place] [address] Transthoracic Echocardiographic Report Patient Name: SOPHIA HANNA STEPHEN : 1990 (34y 3m) Gender: M Study Date: 08/16/2024 10:01:37 AM Ht(Inch): 72 Wt(Lb): 138.01 BSA: 1.78 Business Division Chair: Patricia Carmichael SUNI Location: [id number] Order Provider:WENCESLAO REINA Heart Rate: 106 BMI: [...] LA Length 4C 3.89 cm MV Decel Wdjo345.48 msec [ 104.00 - 258.00 ] LA [...] LAB BLOOD ORDERABLES Chelsea l Result [facility] Department [place] [address] * (ABNORMAL) POCT glucose (08/16/2024 9:06 AM CDT) Glucose, POC 287(H) 70 - 199 mg/dL Blood 08/16/2024 9:06 AM CDT 08/16/2024 9:06 AM CDT us Isaiah Segura MD LAB POCT ORDERABLES - DEV ICE Final Result Performing Organization Address [facility] Co de Phone Number [facility] Department [place] [address] * eGFR (08/16/2024 9:01 AM CDT) eGFR [...] ORDERABLES Final R esult Performing Organization Address City/[facility]/ZIP Co de Phone Number [facility] [place] [address] * (ABNORMAL) CBC without differential (08/16/2024 9:01 AM CDT) WBC 10.14(H) 3.80 - 9.90 K/cumm Hgb 11.4(L) 13.0 - 17.5 g/dL [facility] Hct 34.3(L) 38.9 - 50.3 % [facility] Plt 174 150 - 400 K/cumm [facility] MPV 9.6 9.1 - 12.3 fL [facility] RBC 3.92(L) 4.30 - 5.80 M/cumm [facility] MCV 87.5 81.3 - 96.4 fL [facility] MCH 29.1 27.1 - 33.3 pg [facility] MCHC 33.2 32.3 - 35.7 g/dL [facility] RDW CV 15.2(H) 11.1 - 14.9 % [facility] RDW SD 48.6(H) 35.7 - 48.1 fL [facility] NRBC abs 0.00 0.00 - 0.01 K/cumm [facility] Blood 08/16/2024 9:01 AM CDT 08/16/2024 10:05 AM CDT us Wenceslao Reina MD LAB BLOOD ORDERABLES Final R esult [facility] Department [place] [address] * (ABNORMAL) Basic metabolic panel (08/16/2024 9:01 AM CDT) Sodium 130(L) 135 - 145 mmol/L Potassium, pl 3.5 3.3 - 4.9 mmol/L [facility] Chloride 86(L) 97 - 110 mmol/L [facility] CO2 36(H) 22 - 32 mmol/L [facility] Anion gap 8 2 - 15 mmol/L [facility] BUN 8 6 - 25 mg/dL [facility] Creatinine 0.65(L) 0.80 - 1.30 mg/dL [facility] Glucose 189 70 - 199 mg/dL [facility] Comment: Interpretive Data Fasting glucose [...] 2022. Calcium 9.2 8.5 - 10.3 mg/dL [facility] Blood 08/16/2024 9:01 AM CDT 08/16/2024 10:05 AM CDT Wenceslao Reina MD LAB BLOOD ORDERABLES Final R esult Performing Organization Address City/[facility] Co de Phone Number [facility] Department [place] [address] * Calcium, ionized (08/16/2024 5:40 AM CDT) Calcium, Ionized 4.59 4.50 - 5.10 mg/dL Blood 08/16/2024 5:40 AM CDT 08/16/2024 5:56 AM CDT Wenceslao Reina MD LAB BLOOD ORDERABLES Final R esult Performing Organization Address [facility] de Phone Number [facility] Department [place] [address] * (ABNORMAL) Phosphorus (08/16/2024 5:40 AM CDT) Phosphorus, pl 1.3(L) 2.3 - 4.5 mg/dL Blood 08/16/2024 5:40 AM CDT 08/16/2024 5:56 AM CDT Wenceslao Reina MD LAB BLOOD ORDERABLES Final R esult Performing Organization Address [facility] Co de Phone Number [facility] Department [place] [address] * (ABNORMAL) Hepatic function panel (08/16/2024 5:40 AM CDT) [facility] Bilirubin, total 0.5 0.1 - 1.2 mg/dL Bilirubin, direct 0.2 0.1 - 0.3 mg/dL [facility] Protein, pl 6.5 6.5 - 8.5 g/dL [facility] Albumin 4.2 3.5 - 5.0 g/dL [facility] Alk phos 69 40 - 130 Units/L [facility] ALT 52 7 - 55 Units/L [facility] AST 88(H) 10 - 50 Units/L [facility] Blood 08/16/2024 5:40 AM CDT 08/16/2024 5:56 AM CDT us Wenceslao Reina MD LAB BLOOD ORDERABLES Final R esult Performing Organization Address City/[facility]/[place] [address] * POCT glucose (08/16/2024 3:49 AM CDT) [facility] Glucose, POC 179 70 - 199 mg/dL Blood 08/16/2024 3:49 AM CDT 08/16/2024 3:49 AM CDT Wenceslao Reina MD LAB POCT ORDERABLES - DEVICE Final Result Performing Organization Address [facility]/[place] [address] * Oxyhemoglobin, pulmonary artery (08/15/2024 11:30 PM CDT) [facility] Oxyhemoglobin, PA 67.9 % Comment: Interpretive Data No reference range established. Current interpretive data was last revised 2019. Blood 08/15/2024 11:3 0 PM CDT 08/15/2024 11:49 PM CDT us Wenceslao Reina MD LAB BLOOD ORDERABLES Final R esult Performing Organization Address [facility] Co de Phone Number [facility] [place] [address] * (ABNORMAL) Hemoglobin total, pulmonary artery (08/15/2024 11:30 PM CDT) Hemoglobin total, PA 11.6(L) 13.0 - 17.5 g/dL Blood 08/15/2024 11:3 0 PM CDT 08/15/2024 11:49 PM CDT us Wenceslao Reina MD LAB BLOOD ORDERABLES Final R esult Performing Organization Address [facility] de Phone Number [facility] [place] [address] * POCT glucose (08/15/2024 11:30 PM CDT) Glucose, POC 186 70 - 199 mg/dL Blood 08/15/2024 11:3 0 PM CDT 08/15/2024 11:30 PM CDT us Wenceslao Reina MD LAB POCT ORDERABLES - DEVICE Final Result Performing Organization Address [facility] Co de Phone Number [facility] [employer] [place] [address] * Lactate, whole blood (08/15/2024 11:30 PM CDT) Lactate, bld 1.8 0.7 - 2.0 mmol/L Blood 08/15/2024 11:3 0 PM CDT 08/15/2024 11:49 PM CDT Wenceslao Reina MD LAB BLOOD ORDERABLES Final R esult Performing Organization Address [facility] Co de Phone Number [facility] [place] [address] * eGFR (08/15/2024 9:17 PM CDT) eGFR [...] ORDERABLES Final R esult Performing Organization Address [facility] Co de Phone Number [facility] Department [place] [address] * Magnesium (08/15/2024 9:17 PM CDT) Magnesium 2.1 1.4 - 2.5 mg/dL Blood 08/15/2024 9:17 PM CDT 08/15/2024 9:48 PM CDT us Mumtaz Juan MD LAB BLOOD ORDERABLES Fi nal Result Performing Organization Address [facility] Co de Phone Number [facility] Department [place] [address] * (ABNORMAL) Basic metabolic panel (08/15/2024 9:17 PM CDT) Sodium 130(L) 135 - 145 mmol/L Potassium, pl 4.2 3.3 - 4.9 mmol/L [facility] Chloride 87(L) 97 - 110 mmol/L [facility] CO2 34(H) 22 - 32 mmol/L [facility] Anion gap 9 2 - 15 mmol/L [facility] BUN 10 6 - 25 mg/dL [facility] Creatinine 0.77(L) 0.80 - 1.30 mg/dL [facility] Glucose 133 70 - 199 mg/dL [facility] Comment: Interpretive Data Fasting glucose [...] 2022. Calcium 9.7 8.5 - 10.3 mg/dL [facility] Blood 08/15/2024 9:17 PM CDT 08/15/2024 9:48 PM CDT us Wenceslao Reina MD LAB BLOOD ORDERABLES Final R esult [facility] Department [place] [address] * POCT glucose (08/15/2024 9:16 PM CDT) Glucose, POC 143 70 - 199 mg/dL Blood 08/15/2024 9:16 PM CDT 08/15/2024 9:16 PM CDT us Wenceslao Reina MD LAB POCT ORDERABLES - DEVICE Final Result Performing Organization Address [facility] [place] [address] * POCT glucose (08/15/2024 6:29 PM CDT) Glucose, POC 138 70 - 199 mg/dL Blood 08/15/2024 6:29 PM CDT 08/15/2024 6:29 PM CDT us Wenceslao Reina MD LAB POCT ORDERABLES - DEVICE Final Result Performing Organization Address [facility] de Phone Number [facility] [place] [address] * POCT glucose (08/15/2024 5:17 PM CDT) Glucose, POC 198 70 - 199 mg/dL Blood 08/15/2024 5:17 PM CDT 08/15/2024 5:17 PM CDT us Wenceslao Reina MD LAB POCT ORDERABLES - DEVICE Final Result Performing Organization Address [facility] de Phone Number [facility] Department [place] [address] * POCT glucose (08/15/2024 4:21 PM CDT) Glucose, POC 170 70 - 199 mg/dL Blood 08/15/2024 4:21 PM CDT 08/15/2024 4:21 PM CDT Wenceslao Reina MD LAB POCT ORDERABLES - DEVICE Final Result Performing Organization Address [facility] Co de Phone Number [facility] [place] [address] * Oxyhemoglobin, central venous (08/15/2024 3:22 PM CDT) Oxyhemoglobin, CV 70.4 % Comment: Interpretive Data No reference range established. Current interpretive data was last revised 2019. Blood 08/15/2024 3:22 PM CDT 08/15/2024 3:28 PM CDT us Wenceslao Reina MD LAB BLOOD ORDERABLES Final R esult [facility] [place] [address] * (ABNORMAL) Hemoglobin total, pulmonary artery (08/15/2024 3:22 PM CDT) Pathologist [facility] Hemoglobin total, PA 10.6(L) 13.0 - 17.5 g/dL Blood 08/15/2024 3:22 PM CDT 08/15/2024 3:36 PM CDT us Wenceslao Reina MD LAB BLOOD ORDERABLES Final R esult [facility] Department [place] [address] * eGFR (08/15/2024 3:22 PM CDT) eGFR [...] LAB BLOOD ORDERABLES Final R esult [facility] Department [place] [address] * (ABNORMAL) Pro B-type natriuretic peptide (08/15/2024 [...] ORDERABLES Final R esult Performing Organization Address [facility] Co de Phone Number [facility] [employer] [place] [address] * Lactate, whole blood (08/15/2024 3:22 PM CDT) Lactate, bld 1.2 0.7 - 2.0 mmol/L Blood 08/15/2024 3:22 PM CDT 08/15/2024 3:28 PM CDT Wenceslao Reina MD LAB BLOOD ORDERABLES Final R esult Performing Organization Address [facility] Co de Phone Number [facility] [place] [employer] [place] [address] * Phosphorus (08/15/2024 3:22 PM CDT) Pathologist [facility] Phosphorus, pl 3.0 2.3 - 4.5 mg/dL Comment:Reviewed Blood 08/15/2024 3:22 PM CDT 08/15/2024 3:44 PM CDT Wenceslao Reina MD LAB BLOOD ORDERABLES Final R esult Performing Organization Address [facility] Co de Phone Number [facility] [place] [address] * Magnesium (08/15/2024 3:22 PM CDT) Magnesium 2.3 1.4 - 2.5 mg/dL Blood 08/15/2024 3:22 PM CDT 08/15/2024 3:44 PM CDT Wenceslao Reina MD LAB BLOOD ORDERABLES Final R esult Performing Organization Address City/[facility]/ZIP Co de Phone Number [facility] Department [place] [address] * (ABNORMAL) Basic metabolic panel (08/15/2024 3:22 PM CDT) [facility] Sodium 133(L) 135 - 145 mmol/L Potassium, pl 4.1 3.3 - 4.9 mmol/L [facility] Chloride 89(L) 97 - 110 mmol/L [facility] CO2 33(H) 22 - 32 mmol/L [facility] Anion gap 11 2 - 15 mmol/L [facility] BUN 14 6 - 25 mg/dL [facility] Creatinine 0.93 0.80 - 1.30 mg/dL [facility] Glucose 145 70 - 199 mg/dL [facility] Comment: Interpretive Data Fasting glucose [...] 2022. Calcium 10.1 8.5 - 10.3 mg/dL [facility] Blood 08/15/2024 3:22 PM CDT 08/15/2024 3:44 PM CDT Wenceslao Reina MD LAB BLOOD ORDERABLES Final R esult Performing Organization Address City/[facility]/ZIP Co de Phone Number [facility] Department [place] [address] * POCT glucose (08/15/2024 3:20 PM CDT) Glucose, POC 146 70 - 199 mg/dL Blood 08/15/2024 3:20 PM CDT 08/15/2024 3:20 PM CDT Wenceslao Reina MD LAB POCT ORDERABLES - DEVICE Final Result Performing Organization Address [facility] Co de Phone Number [facility] [place] [address] * POCT glucose (08/15/2024 2:40 PM CDT) Glucose, POC 93 70 - 199 mg/dL Blood 08/15/2024 2:40 PM CDT 08/15/2024 2:40 PM CDT us Wenceslao Reina MD LAB POCT ORDERABLES - DEVICE Final Result Performing Organization Address [facility] [place] [address] * XR Chest 1 View (08/15/2024 2:40 PM CDT) Anatomical Region Laterality Modality Body, Chest N/A Computed Radiogr aphy 08/16/2024 9:53 AM CDT Impressions 08/16/2024 9:53 AM CDT 1. No prior examination available for comparison. A right peripherally inserted central venous catheter tip is in the right atrium. [place] catheter tip overlies the main pulmonary artery. There is no pneumonic consolidation or pneumothorax. 2. Comparison is made to prior examination from the same date. The [place] catheter tip is now located in the [...] catheter tip is in the right atrium. [place] catheter tip overlies the main pulmonary artery. There is no pneumonic consolidation or pneumothorax. 2. Comparison is made to prior examination from the same date. The [place] catheter tip is now located in the [...] LAB POCT ORDERABLES - DEVICE Final Result [facility] Department [place] [address] * (ABNORMAL) Blood gas, arterial (08/15/2024 1:51 PM CDT) pH, Art 7.48(H) 7.35 - 7.45 PCO2, Arterial 47(H) 35 - 45 mmHg [facility] PO2, Arterial 89 83 - 108 mmHg [facility] HCO3 Art (Calculated) 35(H) 20 - 30 mmol/L [facility] BE, art 10 mmol/L [facility] Comment: Interpretive Data No Reference Range Established Current Interpretive Data was last revised on 2017 O2 Sat Art (Measured) 97(H) 90 - 95 % [facility] Blood 08/15/2024 1:51 PM CDT 08/15/2024 1:58 PM CDT us Wenceslao Reina MD LAB BLOOD ORDERABLES Final R esult Performing Organization Address City/[facility]/ZIP Co de Phone Number [facility] [place] [employer] [place] [address] * POCT glucose (08/15/2024 1:03 PM CDT) Glucose, POC 124 70 - 199 mg/dL Blood 08/15/2024 1:03 PM CDT 08/15/2024 1:03 PM CDT us Wenceslao Reina MD LAB POCT ORDERABLES - DEVICE Final Result Performing Organization Address [facility] Co de Phone Number [facility] [place] [address] * XR Abdomen Ap 1 Vw (08/15/2024 [...] catheter tip is in the right atrium. [place] catheter tip overlies the main pulmonary artery. There is no pneumonic consolidation or pneumothorax. 2. Comparison is made to prior examination from the same date. The [place] catheter tip is now located in the [...] catheter tip is in the right atrium. [place] catheter tip overlies the main pulmonary artery. There is no pneumonic consolidation or pneumothorax. 2. Comparison is made to prior examination from the same date. The [place] catheter tip is now located in the [...] 2019. Trop I hs delta 54(C) ng/L [facility] Comment:Previous critical va lue noted within 48 hours ago. Trop I hs interp Significa nt(C) [facility] Comment:Previous critical va lue noted within 48 hours ago. Blood 08/15/2024 12:3 2 PM CDT 08/15/2024 12:45 PM CDT Wenceslao Reina MD LAB BLOOD ORDERABLES Final R esult Performing Organization Address City/[facility]/ZIP Co de Phone Number [facility] Department [place] [employer] [place] [address] * Oxyhemoglobin, pulmonary artery (08/15/2024 12:32 PM CDT) Pathologist [facility] Oxyhemoglobin, PA 72.8 % Comment: Interpretive Data No reference range established. Current interpretive data was last revised 2019. Blood 08/15/2024 12:3 2 PM CDT 08/15/2024 12:44 PM CDT Wenceslao Reina MD LAB BLOOD ORDERABLES Final R esult [facility] [employer] [place] [address] * (ABNORMAL) Hemoglobin total, pulmonary artery (08/15/2024 12:32 PM CDT) Hemoglobin total, PA 10.4(L) 13.0 - 17.5 g/dL Blood 08/15/2024 12:3 2 PM CDT 08/15/2024 12:44 PM CDT us Jose J Tolbert MD LAB BLOOD ORDERABLES Final Result Performing Organization Address [facility] Co de Phone Number [facility] [place] [address] * eGFR (08/15/2024 12:32 PM CDT) eGFR [...] ORDERABLES Final R esult Performing Organization Address City/[facility]/ZIP Co de Phone Number [facility] [place] [address] * (ABNORMAL) Calcium, ionized (08/15/2024 12:32 PM CDT) Calcium, Ionized 5.14(H) 4.50 - 5.10 mg/dL Blood 08/15/2024 12:3 2 PM CDT 08/15/2024 12:55 PM CDT Wenceslao Reina MD LAB BLOOD ORDERABLES Final R esult Performing Organization Address [facility] Co de Phone Number [facility] [place] [address] * (ABNORMAL) Phosphorus (08/15/2024 12:32 PM CDT) Pathologist [facility] Phosphorus, pl 0.9(L) 2.3 - 4.5 mg/dL Blood 08/15/2024 12:3 2 PM CDT 08/15/2024 12:45 PM CDT Wenceslao Reina MD LAB BLOOD ORDERABLES Final R esult Performing Organization Address [facility] Co de Phone Number [facility] Department [place] [address] * Magnesium (08/15/2024 12:32 PM CDT) [facility] Magnesium 2.4 1.4 - 2.5 mg/dL Blood 08/15/2024 12:3 2 PM CDT 08/15/2024 12:45 PM CDT Wenceslao Reina MD LAB BLOOD ORDERABLES Final R esult Performing Organization Address [facility] Co de Phone Number [facility] [place] [address] * (ABNORMAL) Basic metabolic panel (08/15/2024 12:32 PM CDT) Pathologist [facility] Sodium 133(L) 135 - 145 mmol/L Potassium, pl 4.2 3.3 - 4.9 mmol/L [facility] Chloride 90(L) 97 - 110 mmol/L [facility] CO2 33(H) 22 - 32 mmol/L [facility] Comment:Reviewed Anion gap 10 2 - 15 mmol/L [facility] Comment:Reviewed BUN 15 6 - 25 mg/dL [facility] Creatinine 0.97 0.80 - 1.30 mg/dL [facility] Glucose 144 70 - 199 mg/dL [facility] Comment: Interpretive Data Fasting glucose [...] 2022. Calcium 10.5(H) 8.5 - 10.3 mg/dL [facility] Blood 08/15/2024 12:3 2 PM CDT 08/15/2024 12:45 PM CDT us Wenceslao Reina MD LAB BLOOD ORDERABLES Final R esult Performing Organization Address City/[facility]/ZIP Co de Phone Number [facility] Department [place] [employer] [place] [address] * POCT glucose (08/15/2024 11:57 AM CDT) Glucose, POC 165 70 - 199 mg/dL Blood 08/15/2024 11:5 7 AM CDT 08/15/2024 11:57 AM CDT us Wenceslao Reina MD LAB POCT ORDERABLES - DEVICE Final Result [facility] [place] [employer] [place] [address] * (ABNORMAL) Troponin I high-sensitivity 4-hour (08/15/2024 10:58 AM CDT) Trop I hs 76(H) <=35 ng/L Comment: Previous critical value noted within 48 hours ago. Interpretive Data For further hscTnI resources including the diagnostic algorithm and an aid in interpretation, copy and paste this link: https://bjhlab.testcatalog.org/show/hsTrop-1 Current Interpretive Data last revised 2019. Trop I hs delta 25(C) ng/L [facility] Comment:Previous critical va lue noted within 48 hours ago. Trop I hs interp Significa nt(C) [facility] Comment:Previous critical va lue noted within 48 hours ago. Blood 08/15/2024 10:5 8 AM CDT 08/15/2024 11:06 AM CDT us Wenceslao Reina MD LAB BLOOD ORDERABLES Final R esult Performing Organization Address [facility] Co de Phone Number [facility] Department [place] [address] * Oxyhemoglobin, central venous (08/15/2024 10:58 AM CDT) Oxyhemoglobin, CV 71.6 % Comment: Interpretive Data No reference range established. Current interpretive data was last revised 2019. Blood 08/15/2024 10:5 8 AM CDT 08/15/2024 11:06 AM CDT us Wenceslao Reina MD LAB BLOOD ORDERABLES Final R esult Performing Organization Address City/[facility] Co de Phone Number [facility] Department [place] [employer] [place] [address] * (ABNORMAL) Hemoglobin total, pulmonary artery (08/15/2024 10:58 AM CDT) Hemoglobin total, PA 9.8(L) 13.0 - 17.5 g/dL Blood 08/15/2024 10:5 8 AM CDT 08/15/2024 11:06 AM CDT us Wenceslao Reina MD LAB BLOOD ORDERABLES Final R esult Performing Organization Address [facility] Co de Phone Number [facility] [place] [address] * Lactate, whole blood (08/15/2024 10:58 AM CDT) Lactate, bld 1.8 0.7 - 2.0 mmol/L Blood 08/15/2024 10:5 8 AM CDT 08/15/2024 11:06 AM CDT us Wenceslao Reina MD LAB BLOOD ORDERABLES Final R esult Performing Organization Address [facility] Co de Phone Number [facility] [place] [address] * POCT glucose (08/15/2024 10:51 AM CDT) Glucose, POC 165 70 - 199 mg/dL Blood 08/15/2024 10:5 1 AM CDT 08/15/2024 10:51 AM CDT us Wenceslao Reina MD LAB POCT ORDERABLES - DEVICE Final Result Performing Organization Address [facility] Co de Phone Number [facility] [place] [address] * DE INSJ NON-TUNNELED CENTRAL VENOUS CATH AGE 4 YR/> (08/15/2024 9:58 AM CDT) Narrative Wenceslao Reina MD - 08/15/2024 9:58 AM CDT Wenceslao Reina MD 08/15/2024 3:12 PM Central Line Insertion- SGC Date/Time: 08/15/2024 9:58 AM Performed by: Ngozi Tamez MD Authorized by: Wenceslao Reina MD [place] Protocol: RN Notified of Procedure: yes Patient [...] Ultrasound guidance: Real-time needle guidance Procedural supplies: [facility]. Needle inserted, vein idenitified then guidewire inserted easily into vein: Yes Successful placement: Yes Patient tolerance: Patient tolerated the procedure well with no immediate complications us Wenceslao Reina MD IN CLINIC/BEDSIDE ORDERABLES Final Result * (ABNORMAL) POC Blood Gas and Chemistries, Arterial - (08/15/2024 9:57 AM CDT) pH, Art POC 7.36 7.35 - 7.45 pCO2, Art POC 25(L) 35 - 45 mmHg [facility] pO2, Art POC 83 83 - 108 mmHg [facility] Na, POC 130(L) 135 - 145 mmol/L [facility] K POC 4.6 3.3 - 4.9 mmol/L [facility] Comment: Interpretive Data Not all point of care methods assess for hemolysis. Confirm with instrument and retest K+ if not consistent with clinical signs and symptoms. Current Interpretive Data was last revised on 2023. Cl, POC 93(L) 97 - 110 mmol/L [facility] Ionized Ca, POC 6.02(H) 4.50 - 5.10 mg/dL [facility] Glucose, POC 253(H) 70 - 199 mg/dL [facility] Lactate, POC 2.4(H) 0.7 - 2.0 mmol/L [facility] SO2 (fabiana) arterial 98(H) 90 - 95 % [facility] Base excess, POC -10.0 mmol/L [facility] HCO3, Art POC 14(L) 20 - 30 mmol/L [facility] Hct, POC 29.0(L) 41.4 - 51.6 % [facility] Total Hb, POC 9.7(L) 13.8 - 17.2 g/dL [facility] Blood 08/15/2024 9:57 AM CDT 08/15/2024 9:57 AM CDT Wenceslao Reina MD LAB POCT ORDERABLES - DEVICE Final Result Performing Organization Address [facility]/ZIP Co de Phone Number [facility] [place] [address] * (ABNORMAL) Urinalysis reflex to microscopic and culture Urine (08/15/2024 9:56 AM CDT) Color, ur Straw Yellow Clarity, ur Clear Clear [facility] Specific gravity, ur 1.008 1.003 - 1.030 [facility] pH, urine 6.0 [facility] Comment: Interpretive Data U rine pH is affected by diet, medications, systemic acid-base disturbances, and renal tubular function. pH may affect urinary stone formation. For example, urine pH below 6.0 may help reduce the tendency for calcium phosphate stones and pH greater than 6.0 may reduce the tendency for uric acid stone formation. Source: [facility] Current Interpretive Data was last revised on 2017 Protein, ur ql Negative Negative [facility] Glucose, ur ql 3+(A) Negative [facility] Ketones, ur 1+(A) Negative [facility] Bilirubin, ur Negative Negative [facility] Blood, ur 2+(A) Negative [facility] Urobilinogen, ur <2.0 <2.0 mg/dL [facility] Nitrite, ur Negative Negative [facility] Leukocyte esterase, ur Negative Negative [facility] UA reflex comment Reflex to microscopic UA will be performed. [facility] Urine 08/15/2024 9:56 AM CDT 08/15/2024 10:15 AM CDT us Wenceslao Reina MD LAB MICROBIOLOGY - GENERAL O RDERABLES Final Result Performing Organization Address City/[facility]/ZIP Co de Phone Number [facility] Department [place] [address] * (ABNORMAL) Urinalysis, microscopic only (08/15/2024 9:56 AM CDT) WBC, ur 0-5 0 - 5 /HPF RBC, ur 0-2 0 - 2 /HPF [facility] Epithelial cells, squamous, ur 1-5 0 - 5 /HPF [facility] Bacteria, ur Trace(A) [facility] Mucous, ur Present(A) [facility] Culture Reflex Comment Reflex conditions for urine culture (WBC >10) not met. [facility] Urine 08/15/2024 9:56 AM CDT 08/15/2024 10:15 AM CDT us Wenceslao Reina MD LAB URINE ORDERABLES Final R esult Performing Organization Address City/State/[facility] Co de Phone Number [facility] Department [place] [address] * DE ARTL CATHJ/CANNULJ MNTR/TRANSFUSION SPX PRQ (08/15/2024 9:53 AM CDT) Narrative Wenceslao Reina MD - 08/15/2024 9:53 AM CDT Wenceslao Reina MD 08/15/2024 3:12 PM Arterial Line Insertion Date/Time: 08/15/2024 9:53 AM Performed by: Ngozi Tamez MD Authorized by: Wenceslao Reina MD [place] Protocol: RN Notified of Procedure: yes Informed [...] - DEVICE Final Result Performing Organization Address City/[facility] Co de Phone Number [facility] Department [place] [employer] [place] [address] * eGFR (08/15/2024 8:38 AM CDT) eGFR [...] ORDERABLES F inal Result Performing Organization Address City/[facility]/ZIP Co de Phone Number [facility] Department [place] [employer] [place] [address] * Critical Result Callback Chemistry (08/15/2024 8:38 AM CDT) Date Notified 20240815 Time Notified 942 [facility] TestName Anion Gap [facility] Called/Read Back Beth [facility] Credentials RN [facility] Called By [facility] Blood 08/15/2024 8:38 AM CDT 08/15/2024 8:57 AM CDT us Kayleigh Avila MD LAB BLOOD ORDERABLES F inal Result [facility] Department [place] [address] * (ABNORMAL) Comprehensive metabolic panel (08/15/2024 8:38 AM CDT) Sodium 132(L) 135 - 145 mmol/L Potassium, pl 4.6 3.3 - 4.9 mmol/L [facility] Chloride 89(L) 97 - 110 mmol/L [facility] CO2 14(L) 22 - 32 mmol/L [facility] Anion gap 29(C) 2 - 15 mmol/L [facility] Comment:Reviewed BUN 19 6 - 25 mg/dL [facility] Creatinine 1.25 0.80 - 1.30 mg/dL [facility] Glucose 266(H) 70 - 199 mg/dL [facility] Comment: Interpretive Data Fasting glucose [...] 2022. Calcium 10.8(H) 8.5 - 10.3 mg/dL [facility] Comment:Repeated and Verifie d Bilirubin, total 0.4 0.1 - 1.2 mg/dL [facility] Protein, pl 5.8(L) 6.5 - 8.5 g/dL [facility] Albumin 3.8 3.5 - 5.0 g/dL [facility] Alk phos 59 40 - 130 Units/L [facility] ALT 49 7 - 55 Units/L [facility] AST 94(H) 10 - 50 Units/L [facility] Blood 08/15/2024 8:38 AM CDT 08/15/2024 8:57 AM CDT Kayleigh Avila MD LAB BLOOD ORDERABLES F inal Result Performing Organization Address [facility] Co de Phone Number [facility] Department [place] [address] * (ABNORMAL) Troponin I high-sensitivity 2-hour (08/15/2024 8:29 AM CDT) Trop I hs 66(H) <=35 ng/L Comment: Interpretive Data For further hscTnI resources including the diagnostic algorithm and an aid in interpretation, copy and paste this link: https://bjhlab.testcatalog.org/show/hsTrop-1 Current Interpretive Data last revised 2019. Trop I hs delta 15(C) ng/L [facility] Comment:Reviewed Trop I hs interp Significa nt(C) [facility] Comment:Reviewed Blood 08/15/2024 8:29 AM CDT 08/15/2024 8:57 AM CDT us Wenceslao Reina MD LAB BLOOD ORDERABLES Final R esult Performing Organization Address City/[facility]/ZIP Co de Phone Number [facility] Department [place] [address] * Oxyhemoglobin, central venous (08/15/2024 8:29 AM CDT) Oxyhemoglobin, CV 75.8 % Comment: Interpretive Data No reference range established. Current interpretive data was last revised 2019. Blood 08/15/2024 8:29 AM CDT 08/15/2024 8:47 AM CDT us Wenceslao Reina MD LAB BLOOD ORDERABLES Final R esult [facility] One [facility] [place] [address] * Critical result callback Cardio chemistry (08/15/2024 8:29 AM CDT) Date Notified 20240815 Time Notified 09 [facility] Test name Trop I hs 2hr delta [facility] Called/Read Back Beth [facility] Credentials RN [facility] Called By ra [facility] Blood 08/15/2024 8:29 AM CDT 08/15/2024 8:57 AM CDT us Wenceslao Reina MD LAB BLOOD ORDERABLES Final R esult Performing Organization Address City/[facility]/ZIP Co de Phone Number [facility] One [facility] [place] [address] * Critical Result Callback Chemistry (08/15/2024 8:29 AM CDT) Date Notified 20240815 Time Notified 0858 [facility] TestName Lactate Whole Blood [facility] Called/Read Back Kimmy [facility] Credentials RN [facility] Called By LISA [facility] Blood 08/15/2024 8:29 AM CDT 08/15/2024 8:48 AM CDT us Wenceslao Reina MD LAB BLOOD ORDERABLES Final R esult Performing Organization Address City/[facility]/ZIP Co de Phone Number [facility] One [facility] [place] [address] * (ABNORMAL) Lactate, whole blood (08/15/2024 8:29 AM CDT) Pathologist [facility] Lactate, bld 4.2(C) 0.7 - 2.0 mmol/L Comment:Reviewed Blood 08/15/2024 8:29 AM CDT 08/15/2024 8:48 AM CDT Wenceslao Reina MD LAB BLOOD ORDERABLES Final R esult Performing Organization Address City/[facility] Co de Phone Number [facility] Department [place] [employer] [place] [address] * (ABNORMAL) Beta-hydroxybutyrate (08/15/2024 7:42 AM CDT) Pathologist [facility] Beta-Hydroxybut yrate 4.2(H) 0.0 - 0.5 mmol/L Blood 08/15/2024 7:42 AM CDT 08/15/2024 7:48 AM CDT Wenceslao Reina MD LAB BLOOD ORDERABLES Final R esult Performing Organization Address City/[facility] Co de Phone Number [facility] [place] [employer] [place] [address] * Blood culture Blood (08/15/2024 7:41 AM CDT) Pathologist [facility] Report Final Report: No growth Blood 08/15/2024 7:41 AM CDT 08/15/2024 8:49 AM CDT Narrative [facility] - 08/19/2024 12:00 PM CDT [...] performance characteristics have been verified by the [facility] Microbiology Laboratory. For questions about this culture, contact the Microbiology Laboratory at [phone]. Interpretive data was last revised on 24. Wenceslao Reina MD LAB MICROBIOLOGY - GENERAL O RDERABLES Final Result [facility] Department [place] [address] * Blood culture Blood (08/15/2024 7:41 AM CDT) Report Final Report: No growth Blood 08/15/2024 7:41 AM CDT 08/15/2024 7:52 AM CDT Narrative [facility] - 08/19/2024 12:00 PM CDT Collection->Peripheral [...] performance characteristics have been verified by the [facility] Microbiology Laboratory. For questions about this culture, contact the Microbiology Laboratory at [phone]. Interpretive data was last revised on 24. us Wenceslao Reina MD LAB MICROBIOLOGY - GENERAL O RDERABLES Final Result [facility] Department [place] [address] * (ABNORMAL) POC Blood Gas and Chemistries, Arterial - (08/15/2024 7:38 AM CDT) pH, Art POC 7.18(C) 7.35 - 7.45 pCO2, Art POC 26(L) 35 - 45 mmHg [facility] pO2, Art POC 97 83 - 108 mmHg [facility] Na, POC 127(L) 135 - 145 mmol/L [facility] K POC 4.8 3.3 - 4.9 mmol/L [facility] Comment: Interpretive Data Not all point of care methods assess for hemolysis. Confirm with instrument and retest K+ if not consistent with clinical signs and symptoms. Current Interpretive Data was last revised on 2023. Cl, POC 93(L) 97 - 110 mmol/L [facility] Ionized Ca, POC 6.73(H) 4.50 - 5.10 mg/dL [facility] Glucose, POC 301(H) 70 - 199 mg/dL [facility] Lactate, POC 4.2(C) 0.7 - 2.0 mmol/L [facility] SO2 (fabiana) arterial 98(H) 90 - 95 % [facility] Base excess, POC -17.2 mmol/L [facility] HCO3, Art POC 10(C) 20 - 30 mmol/L [facility] Hct, POC 26.0(L) 41.4 - 51.6 % [facility] Total Hb, POC 8.8(L) 13.8 - 17.2 g/dL [facility] Blood 08/15/2024 7:38 AM CDT 08/15/2024 7:38 AM CDT us Wenceslao Reina MD LAB POCT ORDERABLES - DEVICE Final Result Performing Organization Address [facility] Co de Phone Number [facility] [place] [address] * Check Sample (08/15/2024 6:50 AM CDT) ABO Rh A Positive [facility] OTHER 08/15/2024 6:50 AM CDT 08/15/2024 7:00 AM CDT us Wenceslao Reina MD LAB BLOOD ORDERABLES Final R esult Performing Organization Address [facility] de Phone Number [facility] [place] [address] [facility] * (ABNORMAL) Calcium, ionized (08/15/2024 6:50 AM CDT) Calcium, Ionized 3.68(L) 4.50 - 5.10 mg/dL Blood 08/15/2024 6:50 AM CDT 08/15/2024 6:57 AM CDT us Wenceslao Reina MD LAB BLOOD ORDERABLES Final R esult Performing Organization Address [facility] de Phone Number [facility] [place] [employer] [place] [address] * aPTT (08/15/2024 6:50 AM CDT) aPTT [...] ORDERABLES Final R esult Performing Organization Address [facility] Co de Phone Number [facility] [employer] [place] [address] * Protime-INR (08/15/2024 6:50 AM CDT) PT 10.4 9.7 - 13.0 sec INR 0.96 0.90 - 1.20 [facility] Comment: Interpretive data Oral anticoagulant [...] ORDERABLES Final R esult Performing Organization Address [facility] Co de Phone Number [facility] [employer] [place] [address] * Type and screen (08/15/2024 6:29 AM CDT) John, indirect Negative ABO Rh A Positive [facility] Blood 08/15/2024 6:29 AM CDT 08/15/2024 6:44 AM CDT Narrative [facility] - 08/15/2024 7:32 AM CDT Has the patient had Daratumumab or Isatuximab in the past 6 months?->Unknown Wenceslao Reina MD LAB BLOOD BANK TEST ORDERABL ES Final Result Performing Organization Address [facility] Co de Phone Number [facility] [employer] [place] [address] * (ABNORMAL) Troponin I high-sensitivity series (baseline, [...] LAB BLOOD ORDERABLES Final R esult [facility] Department [place] [address] * eGFR (08/15/2024 6:26 AM CDT) eGFR [...] MD LAB BLOOD ORDERABLES Final R esult [facility] Department [place] [address] * (ABNORMAL) Differential, auto (08/15/2024 6:26 AM CDT) Neutrophil abs 7.40(H) 1.50 - 6.50 K/cumm Imm gran abs 0.06 0.00 - 0.10 K/cumm [facility] Lymphocyte abs 0.81 0.80 - 3.30 K/cumm [facility] Monocyte abs 1.85(H) 0.20 - 0.80 K/cumm [facility] Eosinophil abs 0.03 0.00 - 0.50 K/cumm [facility] Basophil abs 0.01 0.00 - 0.10 K/cumm [facility] Neutrophil pct 72.8 % [facility] Comment: Interpretive Data Percent cell count reference ranges are not reported, since discordance with absolute values may lead to misinterpretation of CBC data. Current Interpretive Data was last revised on 2017. Imm gran pct 0.6 % [facility] Comment: Interpretive Data Percent cell count reference ranges are not reported, since discordance with absolute values may lead to misinterpretation of CBC data. Current Interpretive Data was last revised on 2017. Lymphocyte pct 8.0 % [facility] Comment: Interpretive Data Percent cell count reference ranges are not reported, since discordance with absolute values may lead to misinterpretation of CBC data. Current Interpretive Data was last revised on 2017. Monocyte pct 18.2 % [facility] Comment: Interpretive Data Percent cell count reference ranges are not reported, since discordance with absolute values may lead to misinterpretation of CBC data. Current Interpretive Data was last revised on 2017. Eosinophil pct 0.3 % [facility] Comment: Interpretive Data Percent cell count reference ranges are not reported, since discordance with absolute values may lead to misinterpretation of CBC data. Current Interpretive Data was last revised on 2017. Basophil pct 0.1 % [facility] Comment: Interpretive Data Percent cell count reference ranges are not reported, since discordance with absolute values may lead to misinterpretation of CBC data. Current Interpretive Data was last revised on 2017. Blood 08/15/2024 6:26 AM CDT 08/15/2024 6:49 AM CDT us Wenceslao Reina MD LAB BLOOD ORDERABLES Final R esult Performing Organization Address [facility] Co de Phone Number [facility] Department [place] [address] * Critical Result Callback Chemistry (08/15/2024 6:26 AM CDT) Date Notified 20240815 Time Notified 9[facility] TestName Calcium, Anion Gap, CO2 Totl [facility] Called/Read Back Wenceslao BOB Credentials MADHURI [facility] Called By ra [facility] Blood 08/15/2024 6:26 AM CDT 08/15/2024 6:40 AM CDT us Wenceslao Reina MD LAB BLOOD ORDERABLES Final R esult Performing Organization Address [facility] Co de Phone Number [facility] [place] [address] * Critical Result Callback Chemistry (08/15/2024 6:26 AM CDT) Date Notified 20240815 Time Notified 720 [facility] TestName Lactate Whole Blood, pH Robbin, HCO3 Robbin (Calc) [facility] Called/Read Back Hiral Regan Credentials [facility] Called By LISA BOB Blood 08/15/2024 6:26 AM CDT 08/15/2024 6:40 AM CDT us Wenceslao Reina MD LAB BLOOD ORDERABLES Final R esult Performing Organization Address [facility] de Phone Number [facility] Department [place] [address] * (ABNORMAL) CBC with auto differential (08/15/2024 6:26 AM CDT) [facility] WBC 10.16(H) 3.80 - 9.90 K/cumm Hgb 8.5(L) 13.0 - 17.5 g/dL [facility] Hct 26.2(L) 38.9 - 50.3 % [facility] Plt 240 150 - 400 K/cumm [facility] MPV 9.2 9.1 - 12.3 fL [facility] RBC 2.89(L) 4.30 - 5.80 M/cumm [facility] MCV 90.7 81.3 - 96.4 fL [facility] MCH 29.4 27.1 - 33.3 pg [facility] MCHC 32.4 32.3 - 35.7 g/dL [facility] RDW CV 15.4(H) 11.1 - 14.9 % [facility] RDW SD 51.3(H) 35.7 - 48.1 fL [facility] NRBC abs 0.00 0.00 - 0.01 K/cumm [facility] Blood 08/15/2024 6:26 AM CDT 08/15/2024 6:49 AM CDT Wenceslao Reina MD LAB BLOOD ORDERABLES Final R esult Performing Organization Address [facility] Co de Phone Number [facility] Department [place] [address] * (ABNORMAL) Lactate, whole blood (08/15/2024 6:26 AM CDT) [facility] Lactate, bld 4.6(C) 0.7 - 2.0 mmol/L Comment:Repeated and verifie d. Blood 08/15/2024 6:26 AM CDT 08/15/2024 6:40 AM CDT Wenceslao Reina MD LAB BLOOD ORDERABLES Final R esult Performing Organization Address [facility] Co de Phone Number [facility] [place] [address] * (ABNORMAL) TSH (08/15/2024 6:26 AM CDT) Thyroid Stimulating Hormone 0.05(L) 0.30 - 4.20 mcIUnit/mL Blood 08/15/2024 6:26 AM CDT 08/15/2024 6:40 AM CDT Wenceslao Reina MD LAB BLOOD ORDERABLES Final R esult Performing Organization Address [facility] Co de Phone Number [facility] [place] [address] * Phosphorus (08/15/2024 6:26 AM CDT) Phosphorus, pl 2.4 2.3 - 4.5 mg/dL Comment:Repeated and verifie d. Blood 08/15/2024 6:26 AM CDT 08/15/2024 6:40 AM CDT Wenceslao Reina MD LAB BLOOD ORDERABLES Final R esult Performing Organization Address [facility] Co de Phone Number [facility] Department [place] [address] * Magnesium (08/15/2024 6:26 AM CDT) Magnesium 1.7 1.4 - 2.5 mg/dL Comment:Repeated and verifie d. Blood 08/15/2024 6:26 AM CDT 08/15/2024 6:40 AM CDT Wenceslao Reina MD LAB BLOOD ORDERABLES Final R esult Performing Organization Address [facility] Co de Phone Number [facility] [place] [employer] [place] [address] * Lipase (08/15/2024 6:26 AM CDT) Lipase 38 10 - 99 Units/L Blood 08/15/2024 6:26 AM CDT 08/15/2024 6:40 AM CDT Wenceslao Reina MD LAB BLOOD ORDERABLES Final R esult Performing Organization Address [facility] [place] [address] * (ABNORMAL) Hemoglobin A1c (08/15/2024 6:26 AM CDT) [facility] Hgb A1C 5.9(H) 4.0 - 5.6 % Estimated Average Glucose 123 mg/dL [facility] Comment: The ADA recommends reporting [...] Reina MD LAB BLOOD ORDERABLES Final R [facility] Performing Organization Address [facility] Co de Phone Number [facility] [employer] [place] [address] * (ABNORMAL) Blood gas, venous (08/15/2024 6:26 AM CDT) Pathologist [facility] pH, Venous 7.18(C) 7.32 - 7.43 Comment:Repeated and verifie d. PCO2, Venous 23(L) 40 - 50 mmHg [facility] Comment:Repeated and verifie d. PO2, Venous 63 mmHg [facility] Comment: Repeated and verified. Interpretive Data No Reference Range Established Current Interpretive Data was last revised on 2017. HCO3 Venous, Calculated 9(C) 20 - 30 mmol/L [facility] Comment:Repeated and verifie d. BE, venous -19 mmol/L [facility] Comment: Repeated and verified. Interpretive Data No Reference Range Established Current Interpretive Data was last revised on 2017. Blood 08/15/2024 6:26 AM CDT 08/15/2024 6:40 AM CDT Wenceslao Reina MD LAB BLOOD ORDERABLES Final R ult Performing Organization Address [facility] de Phone Number [facility] Department [place] [address] * (ABNORMAL) Ethanol (08/15/2024 6:26 AM CDT) Pathologist [facility] Ethanol 100(H) <=10 mg/dL Comment: Repeated and verified. Interpretive Data Legal limit of intoxication > or = 80 mg/dL Levels > or = 400 mg/dL are potentially TOXIC. Current interpretive data was last revised on 2018. Blood 08/15/2024 6:26 AM CDT 08/15/2024 6:40 AM CDT Wenceslao Reina MD LAB BLOOD ORDERABLES Final R esult Performing Organization Address [facility] de Phone Number [facility] Department [place] [address] * (ABNORMAL) Comprehensive metabolic panel (08/15/2024 6:26 AM CDT) Pathologist [facility] Sodium 130(L) 135 - 145 mmol/L Comment:Repeated and verifie d. Potassium, pl 4.9 3.3 - 4.9 mmol/L [facility] Comment:Repeated and verifie d. Chloride 85(L) 97 - 110 mmol/L [facility] Comment:Repeated and verifie d. CO2 10(C) 22 - 32 mmol/L [facility] Comment:Repeated and verifie d. Anion gap 35(C) 2 - 15 mmol/L [facility] Comment:Repeated and verifie d. BUN 19 6 - 25 mg/dL [facility] Comment:Repeated and verifie d. Creatinine 1.35(H) 0.80 - 1.30 mg/dL [facility] Comment:Repeated and verifie d. Glucose 319(H) 70 - 199 mg/dL [facility] Comment: Repeated and verified. Interpretive [...] 2022. Calcium 6.1(C) 8.5 - 10.3 mg/dL [facility] Comment:Repeated and verifie d. Bilirubin, total 0.4 0.1 - 1.2 mg/dL [facility] Comment:Repeated and verifie d. Protein, pl 5.4(L) 6.5 - 8.5 g/dL [facility] Comment:Repeated and verifie d. Albumin 3.6 3.5 - 5.0 g/dL [facility] Comment:Repeated and verifie d. Alk phos 55 40 - 130 Units/L [facility] Comment:Repeated and verifie d. ALT 45 7 - 55 Units/L [facility] Comment:Repeated and verifie d. AST 91(H) 10 - 50 Units/L [facility] Comment:Repeated and verifie d. Blood 08/15/2024 6:26 AM CDT 08/15/2024 6:40 AM CDT Wenceslao Reina MD LAB BLOOD ORDERABLES Final R esult [facility] Department [place] [address] * (ABNORMAL) POC Blood Gas and Chemistries, Venous - (08/15/2024 6:21 AM CDT) pH, Robbin POC 7.14(C) 7.32 - 7.43 pCO2, robbin POC 24(L) 40 - 50 mmHg [facility] pO2, robbin POC 51 mmHg [facility] Na, POC 126(L) 135 - 145 mmol/L [facility] K POC 5.7(H) 3.3 - 4.9 mmol/L [facility] Comment: Interpretive Data Not all point of care methods assess for hemolysis. Confirm with instrument and retest K+ if not consistent with clinical signs and symptoms. Current Interpretive Data was last revised on 2023. Cl, POC 89(L) 97 - 110 mmol/L [facility] Ionized Ca, POC 3.48(L) 4.50 - 5.10 mg/dL [facility] Glucose, POC 338(H) 70 - 199 mg/dL [facility] Lactate, POC 4.8(C) 0.7 - 2.0 mmol/L [facility] O2 Sat, Robbin POC (Fabiana) 84 % [facility] Base excess, POC -19.2 mmol/L [facility] HCO3, Robbin POC 8(C) 20 - 30 mmol/L [facility] Hct, POC 27.0(L) 41.4 - 51.6 % [facility] Total Hb, POC 8.9(L) 13.8 - 17.2 g/dL [facility] Blood 08/15/2024 6:21 AM CDT 08/15/2024 6:21 AM CDT us Wenceslao Reina MD LAB POCT ORDERABLES - DEVICE Final Result [facility] Department [place] [address] * Cardiology Document Scan (07/31/2024 4:46 PM [...] >90 EXTERNAL LAB SCRIBED eGFR in NonAfrican Palauan >90 >90 EXTERNAL LAB Blood 07/22/2024 2:15 PM CDT Erich Infante MD LAB BLOOD ORDERABLES Fi nal Result EXTERNAL LAB * B-type natriuretic peptide (06/24/2024) SCRIBED BNP 238 <125 pg/mL [facility] Blood 06/24/2024 Erich Infante MD LAB BLOOD [...] SCRIBED Glucose 151(A) 70 - 99 mg/dl [facility] Calcium 9.4 8.5 - 10.1 mg/dl [facility] Bilirubin 0.9 0.2 - 1.2 mg/dl [facility] Plasma Protein 6.8 6.4 - 8.2 g/dl [facility] Albumin 4.1 3.4 - 5.0 g/dl [facility] Alkaline Phosphatase 76 50 - 136 Units/L [facility] Alanine Transaminase (ALT) 58 16 - 60 Units/L [facility] Aspartate Transaminase (AST) 78(A) 15 - 37 Units/L [facility] eGFR in NonAfrican Palauan >90 >90 [facility] Alb/glob ratio 1.5 1.0 - 2.0 [facility] BUN_Creat Ratio 23.3 6 - 26 [facility] Blood 06/24/2024 us Erich Infante MD LAB BLOOD ORDERABLES Fi nal Result [facility] * TRANSTHORACIC ECHO (TTE) COMPLETE W DOPPLER/CF W CONTRAST (06/23/2024 9:34 AM TRANSPORT CONDUCTOR) Anatomical Region Laterality Modality Ultrasound 06/23/2024 8:59 AM TRANSPORT CONDUCTOR Narrative 06/23/2024 1:32 PM TRANSPORT CONDUCTOR [facility] Cardiac Diagnostic Lab [address], [address] [place] [address] Transthoracic Echocardiographic Report Patient Name: SOPHIA HANNA ST : 1990 (34y 2m) Gender: M Study Date: 06/23/2024 08:59:08 AM Ht(Inch): 72 Wt(Lb): 149.91 BSA: 1.86 Business Division Chair: Joanna Mcfarlane RDCS Location: [facility] [...] index. Previously Signed by:Jaciel 06/23/2024 1:31:45 PM TRANSPORT CONDUCTOR and Cong Nix M.D. 06/23/2024 1:31:45 PM TRANSPORT CONDUCTOR End of Addendum PROCEDURES: Echocardiographic Report: ([id number], [id number]) Transthoracic complete echo with strain imaging and [...] By: Cong Nix M.D. 06/23/2024 1:31:45 PM TRANSPORT CONDUCTOR Electronically Signed By: Cong Nix M.D. 06/23/2024 1:31:45 PM TRANSPORT CONDUCTOR Electronically Amended By: Cong Nix M.D. 07/20/2024 1:51:15 PM CDT [ADDENDUM] Procedure Note Cong Nix MD - 07/20/2024 [facility] Cardiac Diagnostic Lab [address] , [address] [place] [address] Transthoracic Echocardiographic Report Patient Name: SOPHIA HANNA ST : 1990 (34y 2m) Gender: M Study Date: 06/23/2024 08:59:08 AM Ht(Inch): 72 Wt(Lb): 149.91 BSA: 1.86 Business Division Chair: Joanna Mcfarlane RDCS [facility] [...] index. Previously Signed by:SignedForBoth 06/23/2024 1:31:45 PM TRANSPORT CONDUCTOR and Cong Nix M.D. 06/23/2024 1:31:45 PM TRANSPORT CONDUCTOR End of Addendum PROCEDURES: Echocardiographic Report: ([id number], [id number]) Transthoracic complete echo withstrain imaging and contrast, [...] LA Length 2C 5.59 cm MV Decel Jecp125.26 msec [ 104.00 - 258.00 ] LA [...] By: Cong Nix M.D. 06/23/2024 1:31:45 PM TRANSPORT CONDUCTOR Electronically Signed By: Cong Nix M.D. 06/23/2024 1:31:45 PM TRANSPORT CONDUCTOR Electronically Amended By: Cong Nix M.D. 07/20/2024 1:51:15 PM CDT [ADDENDUM] us Erich Infante MD CV ECHO PROCEDURES Edit ed Result - Final * POCT lipid panel (04/16/2024 3:29 PM TRANSPORT CONDUCTOR) Cholesterol, POC 170 mg/dL HDL, POC 76 mg/dL Triglycerides, POC 112 mg/dL LDL Cholesterol POC 71 mg/dL Chol/HDL Ratio, POC 2.2 Non-HDL Cholesterol, POC 93 mg/dL Cholesterol Total, POC 170 mg/dL Capillary blood 04/16/2024 3 :29 PM TRANSPORT CONDUCTOR us Tony Mcelroy MD POINT OF CARE TEST ORDERABLES Fi nal Result from Last 3 Months or Most Recently Relevant to Health Maintenance Insurance [employer] ACCESS ANTHEM ACCESS ANTHEM ACCESS Advance Directives For more information, please contact: [phone] * Full Code (Latest Code Status on File) Date Activated Date Inactivated Comments 08/15/2024 6:12 AM 08/21/2024 6:17 PM Care Teams Horologist Relationship Specialty Start Date End Date Pelon Rodriguez MD [address] [place] [address] DR HUANG [facility] [address] [place] [address] PCP - General Family Medicine 06/23/24 Erich Infante MD [address] [address] Consulting Physician Cardiology 07/26/24 Simran Pruett Primary Emissions Engineer 07/26/24
--- OUTSIDE RECORDS SUMMARY | 2024-09-07 05:24 | XMS_ITS | Continuity of Care Document ---
Author Organization [facility] Address [address] [place] [address], [place] [address] Phone Care Team Providers Care Technical Services Assistant Name Role Phone Eddie Rodney MD Unavailable Unavailable Advance Directives Directive Yes / No Effective Date File Name No Information Encounters Encounter Description Practice Location Reason(s) For Visit Diagnoses Date Provider Providers Copied on Encounter [facility], [address] [place] [address], [id number], tel:[phone] [facility] No Information Rashaun Morgan. [address] [place], [place], [id number], [place]. tel:[phone] Family History Family Member Type Diagnosis Age At Onset No Information Payers Payer name Insurance type Covered republican ID Authoriza tion(s) No Information Social History [...]
--- OUTSIDE RECORDS SUMMARY | 2024-09-07 05:24 | XMS_ITS | Clinical Summary ---
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 This disclosure is being madepursuant to the Care Everywhere program and may not contain all information available regarding this patient. Last updated 18.[facility] Allergies Active Allergy Reactions Criticality Noted Date [...] Reasons: Diabetes 1 Each 07/09/2024 12:[address] JUDGE 5 Active blood glucose test stripIndicatio ns:Diabetes Mellitus USE 1 STRIP ONCE DAILY 100 strip 1 07/09/2024 12:[address] JUDGE 5 Active lancetsIndicat ions:Diabetes Mellitus USE 1 LANCET ONCE DAILY 100 Each 1 07/09/2024 12:[address] JUDGE 5 Active Insulin Pen Needle 32G X 4 MM MISCIndication s:Diabetes Mellitus Use 1 Each ONCE DAILY 100 Each 1 07/09/2024 12:[address] JUDGE 5 Active milrinone (Primacor) 20-5 MG/100ML-% infusion 6.35 mcg/min by Intravenous route continuous 5 Active pantoprazole EC (Protonix) 40 MG tablet Take 1 (one) tablet by mouth 2 times daily 30 tablet 5 Active Lantus SoloStar pen Inject 5 (five) Units subcutaneously at bedtime If blood glucose greater than 140 15 mL 07/09/2024 12:[address] JUDGE Active Active Problems Problem Noted Date Diagnosed [...] Department Care Team Description 07/07/2024 4:[address] JUDGE Anesthesia Event [facility] [address] [place] [address] Tacho Pelaez DO Brown, Gina F, MD 07/07/2024 3:[address] JUDGE - 07/07/2024 4:[address] JUDGE Surgery [facility] [address] [place] [address] Moy Zarco MD EGD(>1630) 06/30/2024 2:[address] JUDGE - 07/09/2024 1:[address] JUDGE Hospital Encounter [facility] [address] [place] [address] Daryl Julian MD Heis, Farah, MD Chinnery, [...] and heating? Not hard at all 07/02/2024 [facility] - Occupational Stress [...] place to sleep or slept in a group home (including now)? No 02/09/2024 Housing Stability Vital Sign Answer Bryan e Recorded In the last 12 months, was t here a time when you were not able to pay the mortgage or rent on time? Yes 07/02/2024 In the past 12 months, how m any times have you moved where you were living? 2 07/02/2024 At any time in the past 12 m [facility], were you homeless or living in a group home (including now)? Yes 07/02/2024 Sex and Gender Information Value Date Recorded Sex Assigned at Not on file Legal Sex Male 11:36 AM CDT Gender Identity Not on file Sexual Orientation Not on file Last Filed Vital Signs Vital Sign Reading Time Taken Comments Blood Pressure 92/64 07/09/2024 4:[address] JUDGE Pulse 83 07/09/2024 4:[address] JUDGE Temperature 36.9 C (98.5 F) 07/09/2024 4:[address] JUDGE Respiratory Rate 20 07/09/2024 4:[address] JUDGE Oxygen Saturation 99% 07/09/2024 12: [address] JUDGE Inhaled Oxygen Concentration 40% 02/09/2024 9 :00 AM CDT Weight 61.1 kg (134 lb 12.8 oz) 07/08/2024 6:[address] JUDGE Height 182.9 cm (6') 06/30/2024 8:[address] JUDGE Body Mass Index 18.28 06/30/2024 8:[address] JUDGE Plan of Treatment Health Maintenance Due Date [...] this topic Medical Devices Implanted Type Area Platen Press Operator Device Identifier Shelf Expiration Date Model / Serial / Lot Set Vntrc Ast 17.4x13.8in Impella Cp 9.3 - [id number] Implanted:Qty: 1 on 02/01/2024 by Latha Mahmood MD at [facility] [employer] 10/02/2025 [id number] / [id number] / [id number] Graft Cv 10mm 30cm [facility] [address] Polystr 2 Vlr - [id number] Implanted:Qty: 1 on 02/05/2024 by Heriberto Choudhary MD at [facility] [employer] 10/02/2028 [id number] / [id number] Dev Vntrc Ast Impella 5.5 Smartassist Implanted:Qty: 1 on 02/05/2024 by Heriberto Choudhary MD at [facility] N/A: Heart [employer] 10/02/2025 [id number] / / Patch Cv 8x.8cm [employer] Decellularized Implanted:Qty: 1 on 02/05/2024 by Heriberto Choudhary MD at [facility] Left: Arterial [employer] [id number] 04/19/2025 PFP0.8X8 / / [id number] Description:implanted in lef t femoral artery and left subclavian artery Procedures Procedure Name Priority Date/Time Associated Diagnosis Comments PREPARE RBC LEUKOREDUCED UNIT Routine 07/10/2024 1:[address] JUDGE GLUCOSE - POINT OF CARE Routine 07/09/2024 11:[address] JUDGE GLUCOSE - POINT OF CARE Routine 07/09/2024 8:[address] JUDGE HEMOGLOBIN AM Draw 07/09/2024 6:[address] JUDGE COMPREHENSIVE METABOLIC PANEL AM Draw 07/09/2024 12:[address] JUDGE Idiopathic acute pancreatitis, unspecified complication status HEMOGLOBIN AM Draw 07/09/2024 12:[address] JUDGE HEMOGLOBIN AM Draw 07/08/2024 6:[address] JUDGE GLUCOSE - POINT OF CARE Routine 07/08/2024 5:[address] JUDGE HEMOGLOBIN AM Draw 07/08/2024 12:[address] JUDGE GLUCOSE - POINT OF CARE Routine 07/08/2024 11:[address] JUDGE GLUCOSE - POINT OF CARE Routine 07/08/2024 7:[address] JUDGE HEMOGLOBIN AM Draw 07/08/2024 6:[address] JUDGE COMPREHENSIVE METABOLIC PANEL AM Draw 07/08/2024 12:[address] JUDGE Idiopathic acute pancreatitis, unspecified complication status HEMOGLOBIN AM Draw 07/08/2024 12:[address] JUDGE GLUCOSE - POINT OF CARE Routine 07/07/2024 10:[address] JUDGE HEMOGLOBIN AM Draw 07/07/2024 5:[address] JUDGE PATHOLOGY TISSUE Routine 07/07/2024 4:[address] JUDGE Gastrointestinal hemorrhage, unspecified gastrointestinal hemorrhage type CT ED EGD FLEX TRANSORAL DX 07/07/2024 4:[address] JUDGE Gastrointestinal hemorrhage, unspecified gastrointestinal hemorrhage type EGD Routine 07/07/2024 4:[address] JUDGE GLUCOSE - POINT OF CARE Routine 07/07/2024 4:[address] JUDGE GLUCOSE - POINT OF CARE Routine 07/07/2024 11:[address] JUDGE HEMOGLOBIN AM Draw 07/07/2024 11:[address] JUDGE GLUCOSE - POINT OF CARE Routine 07/07/2024 7:[address] JUDGE HEMOGLOBIN AM Draw 07/07/2024 5:[address] JUDGE COMPREHENSIVE METABOLIC PANEL AM Draw 07/07/2024 1:[address] JUDGE Idiopathic acute pancreatitis, unspecified complication status HEMOGLOBIN AM Draw 07/07/2024 1:[address] JUDGE HEMOGLOBIN AM Draw 07/06/2024 8:[address] JUDGE GLUCOSE - POINT OF CARE Routine 07/06/2024 5:[address] ANGIO ABDOMEN PELVIS STAT 07/06/2024 4:[address] JUDGE Idiopathic acute pancreatitis, unspecified complication status Anemia, unspecified type PREPARE RBC LEUKOREDUCED UNIT Routine 07/06/2024 4:[address] JUDGE JOHN DIRECT STAT 07/06/2024 2:[address] JUDGE TYPE + SCREEN PANEL Routine 07/06/2024 2 :[address] JUDGE HAPTOGLOBIN STAT 07/06/2024 2:[address] JUDGE VITAMIN B12 BRENDA 07/06/2024 2:[address] JUDGE FOLATE BRENDA 07/06/2024 2:[address] JUDGE IRON + TRANSFERRIN PANEL STAT 07/06/2024 2:[address] JUDGE FERRITIN BRENDA 07/06/2024 2:[address] JUDGE RETIC COUNT STAT 07/06/2024 2:[address] JUDGE BILIRUBIN TOTAL+DIRECT BLOOD PANEL STAT 07/06/2024 2:[address] JUDGE LDH BLOOD STAT 07/06/2024 2:[address] JUDGE CBC W AUTO DIFFERENTIAL STAT 07/06/2024 11:[address] JUDGE GLUCOSE - POINT OF CARE Routine 07/06/2024 11:[address] JUDGE GLUCOSE - POINT OF CARE Routine 07/06/2024 7:[address] JUDGE PHOSPHORUS BLOOD Routine 07/06/2024 4:[address] JUDGE MAGNESIUM BLOOD Routine 07/06/2024 4:[address] JUDGE CBC W/O DIFFERENTIAL AM Draw 07/06/2024 4:[address] JUDGE COMPREHENSIVE METABOLIC PANEL AM Draw 07/06/2024 4:[address] JUDGE Idiopathic acute pancreatitis, unspecified complication status GLUCOSE - POINT OF CARE Routine 07/05/2024 4:[address] JUDGE C-PEPTIDE Routine 07/05/2024 1:[address] JUDGE LIPASE BLOOD Routine 07/05/2024 1:[address] JUDGE HEMOGLOBIN A1C Routine 07/05/2024 1:[address] JUDGE GLUCOSE - POINT OF CARE Routine 07/05/2024 12:[address] JUDGE GLUCOSE - POINT OF CARE Routine 07/05/2024 10:[address] JUDGE XR CHEST 1VW PORTABLE Routine 07/05/2024 9:[address] JUDGE Idiopathic acute pancreatitis, unspecified complication status PT EVAL AND TREAT Routine 07/05/2024 8:[address] JUDGE EKG 12-LEAD Routine 07/05/2024 8:[address] JUDGE Idiopathic acute pancreatitis, unspecified complication status GLUCOSE - POINT OF CARE Routine 07/05/2024 8:[address] JUDGE COMPREHENSIVE METABOLIC PANEL AM Draw 07/05/2024 1:[address] JUDGE Idiopathic acute pancreatitis, unspecified complication status COMPREHENSIVE METABOLIC PANEL AM Draw 07/04/2024 2:[address] JUDGE Idiopathic acute pancreatitis, unspecified complication status CBC W/O DIFFERENTIAL AM Draw 07/03/2024 1:[address] JUDGE PHOSPHORUS BLOOD Routine 07/03/2024 1:[address] JUDGE MAGNESIUM BLOOD Routine 07/03/2024 1:[address] JUDGE COMPREHENSIVE METABOLIC PANEL AM Draw 07/03/2024 1:[address] JUDGE Idiopathic acute pancreatitis, unspecified complication status XR ABDOMEN KUB PORTABLE STAT 07/02/2024 8:[address] JUDGE Ileus CBC W/O DIFFERENTIAL AM Draw 07/02/2024 1:[address] JUDGE Ileus MAGNESIUM BLOOD Routine 07/02/2024 1:[address] JUDGE Ileus COMPREHENSIVE METABOLIC PANEL AM Draw 07/02/2024 1:[address] JUDGE Idiopathic acute pancreatitis, unspecified complication status XR ABDOMEN KUB PORTABLE STAT 07/01/2024 1:[address] JUDGE Ileus HEPATIC FUNCTION PANEL Routine 07/01/2024 4:[address] JUDGE Idiopathic acute pancreatitis, unspecified complication status PHOSPHORUS BLOOD Routine 07/01/2024 4:[address] JUDGE Idiopathic acute pancreatitis, unspecified complication status MAGNESIUM BLOOD Routine 07/01/2024 4:[address] JUDGE Idiopathic acute pancreatitis, unspecified complication status CBC W/O DIFFERENTIAL Routine 07/01/2024 4:[address] JUDGE Idiopathic acute pancreatitis, unspecified complication status BASIC METABOLIC PANEL (CALCIUM TOTAL) Routine 07/01/2024 4:[address] JUDGE Idiopathic acute pancreatitis, unspecified complication status EKG 12-LEAD Routine 07/01/2024 3:[address] JUDGE Idiopathic acute pancreatitis, unspecified complication status EKG 12-LEAD Routine 07/01/2024 3:[address] JUDGE Idiopathic acute pancreatitis, unspecified complication status EKG 12-LEAD Routine 07/01/2024 3:[address] JUDGE Idiopathic acute pancreatitis, unspecified complication status CT ABDOMEN PELVIS W CONTRAST STAT 06/30/2024 5:[address] JUDGE Abdominal pain, unspecified abdominal location TROPONIN-I HIGH SENSITIVE REFLEX 1HOUR Timed 06/30/2024 3:[address] JUDGE URINE DRUG SCREEN IMMUNOASSAY STAT 06/30/2024 2:[address] JUDGE URINALYSIS REFLEX TO MICROSCOPIC NO CULTURE STAT 06/30/2024 2:[address] JUDGE ALCOHOL ETHYL BLOOD STAT 06/30/2024 2 :[address] JUDGE B-TYPE NATRIURETIC PEPTIDE STAT 06/30/2024 2:[address] JUDGE TROPONIN-I HIGH SENSITIVE BASELINE + 1HR STAT 06/30/2024 2:[address] JUDGE PT-INR SLH STAT 06/30/2024 2:[address] JUDGE MAGNESIUM BLOOD STAT 06/30/2024 2:[address] JUDGE LIPASE BLOOD STAT 06/30/2024 2:[address] JUDGE LACTIC ACID BLOOD REFLEX TO REPEAT STAT 06/30/2024 2:[address] JUDGE COMPREHENSIVE METABOLIC PANEL STAT 06/30/2024 2:[address] JUDGE CBC W AUTO DIFFERENTIAL STAT 06/30/2024 2:[address] JUDGE EKG 12-LEAD STAT 06/30/2024 2:[address] JUDGE Chest pain, unspecified type XR CHEST 1VW PORTABLE STAT 06/30/2024 2:[address] JUDGE Chest pain, unspecified type HIV-1 HIV-2 ANTIBODY + HIV P24 AG PANEL Routine 02/03/2024 8:26 PM CDT from Last 3 Months or Most Recently Relevant to Health Maintenance Results * PREPARE (CROSSMATCH) RBC UNIT(S), 1 Units (07/10/2024 1:[address] JUDGE) Only the most recent of2 resultswithin the time period is included. Pathologist [facility] Unit Description N/A [facility] Blood Bank BLOOD SPECIMEN / Unknown 07/06/2024 2:[address] JUDGE Christiano Graham MD LAB - BLOOD BANK ORDERA BLES Final Result [facility] [address] [place] [address], [facility] [phone] * (ABNORMAL) GLUCOSE - POINT OF CARE (07/09/2024 11:[address] JUDGE) Only the most recent of16 resultswithin the time period is included. Pathologist [facility] Glucose WB/POC 203(H) 70 - 99 mg/dL 07/09/2024 12:[address] JUDGE [facility] Specimen Type Cap Fingerstick 2024 12:[address] JUDGE [facility] Blood BLOOD SPECIMEN / Unknown 07/09/2024 11:[address] JUDGE 07/09/2024 12:[address] JUDGE us Piotr Christine MD LAB - POINT OF CARE ORDERAB LES Final Result Performing Organization Address City/[facility]/ZIP Co de Phone Number [facility] [address] [place] [address], [place] [phone] * (ABNORMAL) HEMOGLOBIN (07/09/2024 6:[address] JUDGE) Only the most recent of11 resultswithin the time period is included. Hemoglobin 7.7(L) 13.3 - 17.5 g/dL 07/09/2024 6:14 AM [facility] Blood BLOOD SPECIMEN / Unknown Venipuncture / Unknown 07/09/2024 6:[address] JUDGE 07/09/2024 6:[address] JUDGE us Christiano Graham MD LAB - HEMATOLOGY ORDERA BLES Final Result Performing Organization Address City/[facility]/ZIP Co de Phone Number [facility] [address] [place] [address], [place] [phone] * (ABNORMAL) COMPREHENSIVE METABOLIC PANEL (07/09/2024 12:[address] JUDGE) Only the most recent of9 resultswithin the time period is included. BUN 18 7 - 26 mg/dL 07/09/2024 12:40 AM [facility] Creatinine 0.90 0.71 - 1.16 mg/dL 07/09/2024 12:40 AM [facility] Sodium 137 136 - 145 mmol/L 07/09/2024 12:40 AM [facility] Potassium 4.5 3.5 - 4.5 mmol/L 07/09/2024 12:40 AM [facility] Chloride 101 98 - 107 mmol/L 07/09/2024 12:40 AM [facility] CO2 29 22 - 29 mmol/L 07/09/2024 12:40 AM [facility] Glucose 241(H) 70 - 99 mg/dL 07/09/2024 12:40 AM [facility] Calcium 9.0 8.4 - 10.2 mg/dL 07/09/2024 12:40 AM [facility] Protein Total 5.6(L) 6.0 - 8.3 g/dL 07/09/2024 12:40 AM [facility] Albumin 3.7 3.4 - 5.0 g/dL 07/09/2024 12:40 AM [facility] Bilirubin Total 0.2 0.2 - 1.2 mg/dL 07/09/2024 12:40 AM [facility] Alkaline Phosphatase 47 40 - 150 U/L 07/09/2024 12:40 AM [facility] ALT 33 5 - 55 U/L 07/09/2024 12:40 AM [facility] AST 25 5 - 34 U/L 07/09/2024 12:40 AM [facility] Anion Gap 7 6 - 16 07/09/2024 12:40 AM [facility] BUN/Creatinine Ratio 20 7 - 23 07/09/2024 12:40 AM [facility] Osmolality Calculated 294 275 - 295 mOsm/kg 07/09/2024 12:40 AM [facility] Albumin/Globulin Ratio 1.9 1.1 - 2.3 07/09/2024 12:40 AM [facility] eGFR by CKD-EPI >90 >=90 mL/min/1.7 3 m2 07/09/2024 12:40 AM [facility] Blood BLOOD SPECIMEN / Unknown Venipuncture / Unknown 07/09/2024 12:[address] JUDGE 07/09/2024 12:[address] JUDGE us Jamel Cavazos MD LAB - CHEMISTRY ORDERABLES Fin al Result [facility] [address] [place] [address], [facility] [phone] * PATHOLOGY TISSUE (07/07/2024 4:[address] JUDGE) Case Report Surgical Pathology Report Case: [id number] Authorizing Provider: Moy Zarco MD Collected: 07/07/2024 04:39 PM Ordering Location: [facility] Received: 07/08/2024 07:20 AM Pathologist: Yaquelin Shook MD Specimen: Gastric, Biopsy - R/O H pylori 07/09/2024 3:19 PM [facility] Final Diagnosis Stomach, biopsy (A): - Reactive gastropathy and ulcer debris - Negative for H. pylori 07/09/2024 3:19 PM [facility] Microscopic Description and [...] controls), which is negative. 07/09/2024 3:19 PM [facility] Clinical History The patient is a 34-year-old man with melena. Operative procedure/findings: EGD - nonbleeding gastric ulcer at the pylorus with pigmented material and mild erosive gastritis, biopsied to rule out H. pylori 07/09/2024 3:19 PM [facility] Gross Description The requisition and specimen(s) are identified with the patient's name Douglas Wright . Received in formalin, specimen A, consists of multiple guy-pink irregular tissue fragments averaging 0.2 cm in greatest dimension and aggregating to 0.5 x 0.4 x 0.1 cm which are submitted in toto in a single cassette labeled A1. RB 07/09/2024 3:19 PM [facility] Pathologist Location at [facility] 07/09/2024 3:19 PM [facility] Disclaimer The performance characteristics of all immunohistochemical and indirect immunofluorescence stains (if any) cited in this report were determined by the Histopathology Laboratory of [facility]. Some of these tests were [...] the attending (teaching) pathologist. 07/09/2024 3:[address] JUDGE [facility] Embedded Images 07/09/2024 3:[address] JUDGE [facility] Biopsy, NOS GASTRIC CONTENTS SPECIMEN / Unknown 07/07/2024 4:[address] JUDGE 07/08/2024 7:[address] JUDGE Comment:Pre-op diagnosis: Gastrointestinal hemorrhage, unspecified gastrointestinal hemorrhage type [K92.2] us Moy Zarco MD LAB - PATHOLOGY/CYTOLOGY SHREYA BOJORQUEZ Final Result Performing Organization Address City/State/[facility] Co de Phone Number [phone] [address] [phone] * EGD (07/07/2024 4:[address] JUDGE) Report Endoscopy POC Endoscopy Department Report __ [...] non-montero portions. Procedure Code(s): --- Professional --- 78354, Esophagogastroduode noscopy, flexible, transoral; with biopsy, single or multiple Diagnosis Code(s): --- Professional --- K25.9, Gastric ulcer, unspecified as acute or chronic, without hemorrhage or perforation K29.70, Gastritis, unspecified, without bleeding I86.4, Gastric varices K29.80, Duodenitis without bleeding K92.1, Melena (includes Hematochezia) CPT copyright 2021 [employer]. All rights reserved. The codes documented in this report are preliminary and upon home paraprofessional review may be revised to meet current compliance requirements. Moy Zarco MD 07/07/2024 5:01:11 PM Note Initiated On: 07/07/2024 4:14 PM Number of Addenda: 0 [facility] [address] [place] [id number] [facility] 07/07/2024 4:[address] JUDGE us Clayton Chowdary MD GI PROCEDURE ORDERABLES Edited R esult - Final [facility] * TRANSFUSE RED BLOOD CELL LEUKOREDUCED UNIT(S) (07/06/2024 7:[address] JUDGE) us Christiano Graham MD NURSING - BLOOD PROD TR ANSFUSION Final Result * CT Angio Abdomen Pelvis (07/06/2024 4:[address] JUDGE) Anatomical Region Laterality Modality Abdomen, Pelvis Computed Tomogra phy 07/06/2024 5:[address] JUDGE Impressions 07/06/2024 5:[address] JUDGE Impression: 1.Redemonstration of pancreatic atrophic appearance with [...] 07/06/2024 5:51 PM Narrative 07/06/2024 5:[address] JUDGE PROCEDURE: CT ANGIO ABDOMEN PELVIS, DATE/TIME OF EXAM: 07/06/2024 4:54 PM, LOCATION [facility] INDICATION: K85.00: Idiopathic acute pancreatitis, unspecified [...] PELVIS, DATE/TIME OF EXAM: 07/06/2024 4:54PM, LOCATION [facility] INDICATION: K85.00: Idiopathic acute pancreatitis, unspecified [...] TYPE + SCREEN PANEL (07/06/2024 2:[address] JUDGE) Pathologist [facility] Antibody Screen NEG 4:[address] JUDGE [facility] ABO Rh A POS 07/06/2024 4:[address] JUDGE [facility] Blood Bank BLOOD SPECIMEN / Unknown Venipuncture / Unknown 07/06/2024 2:[address] JUDGE 07/06/2024 3:[address] JUDGE Christiano Graham MD LAB - BLOOD BANK ORDERA BLES Final Result [facility] [address] [place] [address], [place] [phone] * DIRECT JOHN (07/06/2024 2:[address] JUDGE) Pathologist [facility] Direct John (BRYAN) NEG 07/06/2024 3:[address] JUDGE [facility] Blood BLOOD SPECIMEN / Unknown Venipuncture / Unknown 07/06/2024 2:[address] JUDGE 07/06/2024 2:[address] JUDGE Result [facility] Christiano Graham MD LAB - BLOOD BANK ORDERA BLES Final Result Performing Organization Address [facility]/ZIP Co de Phone Number [facility] [address] [place] [address], [facility] [phone] * (ABNORMAL) RETIC COUNT (07/06/2024 2:[address] JUDGE) Reticulocyte Percent 4.48(H) 0.50 - 2.40 % 07/06/2024 3:05 PM [facility] Reticulocyte Absolute 0.0869 0.0200 - 0.1100 x10E6/uL 07/06/2024 3:05 PM [facility] Ret-HE 36.6 29.0 - 37.9 pg 07/06/2024 3:05 PM [facility] Immature Reticulocyte Fraction 18.2(H) 1.8 - 15.2 % 07/06/2024 3:05 PM [facility] Blood BLOOD SPECIMEN / Unknown Venipuncture / Unknown 07/06/2024 2:[address] JUDGE 07/06/2024 2:[address] JUDGE Result [facility] Christiano Graham MD LAB - HEMATOLOGY ORDERA BLES Final Result Performing Organization Address City/[facility]/ZIP Co de Phone Number [address] [address], [place] [phone] * LDH BLOOD (07/06/2024 2:[address] JUDGE) Pathologist [facility] LDH Total 227 125 - 243 Units/L 07/06/2024 3:22 PM [facility] Blood BLOOD SPECIMEN / Unknown Venipuncture / Unknown 07/06/2024 2:[address] JUDGE 07/06/2024 2:[address] JUDGE Result [facility] Christiano Graham MD LAB - CHEMISTRY ORDERAB LES Final Result [address] [address], [place] [phone] * FOLATE (07/06/2024 2:[address] JUDGE) [facility] Folate 17.8 7.0 - 31.4 ng/mL 07/06/2024 3:[address] JUDGE [facility] Blood BLOOD SPECIMEN / Unknown Venipuncture / Unknown 07/06/2024 2:[address] JUDGE 07/06/2024 2:[address] JUDGE Christiano Graham MD LAB - CHEMISTRY ORDERAB LES Final Result Performing Organization Address [facility]/ZIP Co de Phone Number [address] [address], [place] [phone] * BILIRUBIN TOTAL+DIRECT BLOOD PANEL (07/06/2024 2:[address] JUDGE) [facility] Bilirubin Total 0.2 0.2 - 1.2 mg/dL 08/2024 3:[address] JUDGE [facility] Bilirubin Conjugated 0.1 0.1 - 0.5 mg/dL 07/06/2024 3:22 PM [facility] Bilirubin Unconjugated 0.1 Unconjugated Bilirubin is a calculated value: Reference ranges have not been established. mg/dL 07/06/2024 3:[address] JUDGE [facility] Blood BLOOD SPECIMEN / Unknown Venipuncture / Unknown 07/06/2024 2:[address] JUDGE 07/06/2024 2:[address] JUDGE us Christiano Graham MD LAB - CHEMISTRY ORDERAB LES Final Result Performing Organization Address City/[facility]/ZIP Co de Phone Number [address] [address], [place] [phone] * (ABNORMAL) VITAMIN B12 (07/06/2024 2:[address] JUDGE) [facility] Vitamin B12 1,641(H) 213 - 816 pg/mL 07/06/2024 3:[address] JUDGE [facility] Blood BLOOD SPECIMEN / Unknown Venipuncture / Unknown 07/06/2024 2:[address] JUDGE 07/06/2024 2:[address] JUDGE us Christiano Graham MD LAB - CHEMISTRY ORDERAB LES Final Result Performing Organization Address [facility]/ZIP Co de Phone Number [address] [address], [place] [phone] * (ABNORMAL) IRON + TRANSFERRIN PANEL (07/06/2024 2:[address] JUDGE) Iron 47(L) 50 - 175 ug/dL 07/06/2024 3:51 PM [facility] Transferrin 210 174 - 382 mg/dL 07/06/2024 3:51 PM [facility] Transferrin Saturation % 18 16 - 50 % 07/06/2024 3:51 PM [facility] TIBC Calculated 263 240 - 450 ug/dL 07/06/2024 3:[address] JUDGE [facility] Blood BLOOD SPECIMEN / Unknown Venipuncture / Unknown 07/06/2024 2:[address] JUDGE 07/06/2024 2:[address] JUDGE us Christiano Graham MD LAB - CHEMISTRY ORDERAB LES Final Result Performing Organization Address City/[facility]/ZIP Co de Phone Number [address] [address], [place] [phone] * HAPTOGLOBIN (07/06/2024 2:[address] JUDGE) Haptoglobin 54 14 - 258 mg/dL 07/06/2024 3:51 PM [facility] Blood BLOOD SPECIMEN / Unknown Venipuncture / Unknown 07/06/2024 2:[address] JUDGE 07/06/2024 2:[address] JUDGE us Christiano Graham MD LAB - CHEMISTRY ORDERAB LES Final Result [facility] [address] [place] [address], [facility] [phone] * FERRITIN (07/06/2024 2:[address] JUDGE) [facility] Ferritin 146 22 - 275 ng/mL 07/06/2024 4:06 PM [facility] Blood BLOOD SPECIMEN / Unknown Venipuncture / Unknown 07/06/2024 2:[address] JUDGE 07/06/2024 2:[address] JUDGE us Christiano Graham MD LAB - CHEMISTRY ORDERAB LES Final Result Performing Organization Address [facility]/ZIP Co de Phone Number [facility] [address] [place] [address], [facility] [phone] * (ABNORMAL) CBC W AUTO DIFFERENTIAL (07/06/2024 11:[address] JUDGE) Only the most recent of2 resultswithin the time period is included. [facility] WBC 4.5 4.0 - 10.7 x10E9/L 07/06/2024 12:11 PM [facility] RBC Count 1.90(L) 4.30 - 5.80 x10E12/L 07/06/2024 12:11 PM [facility] Hemoglobin 6.2(L) 13.3 - 17.5 g/dL 07/06/2024 12:11 PM [facility] Hematocrit 17.4(L) 38.7 - 51.1 % 07/06/2024 12:11 PM [facility] MCV 91.6 80.0 - 98.0 fL 07/06/2024 12:11 PM [facility] MCH 32.6 26.7 - 33.6 pg 07/06/2024 12:11 PM [facility] MCHC 35.6 31.7 - 36.3 g/dL 07/06/2024 12:11 PM [facility] RDW-CV 15.9(H) 11.3 - 14.8 % 07/06/2024 12:11 PM [facility] Platelet Count 141(L) 150 - 420 x10E9/L 07/06/2024 12:11 PM [facility] MPV 9.8 7.8 - 11.4 fL 07/06/2024 12:11 PM [facility] Neutrophil % 59.8 41.0 - 74.0 % 07/06/2024 12:11 PM [facility] Lymphocyte % 26.0 17.0 - 47.0 % 07/06/2024 12:11 PM [facility] Monocyte % 11.6(H) 3.0 - 11.0 % 07/06/2024 12:11 PM [facility] Eosinophil % 1.8 0.0 - 7.0 % 07/06/2024 12:11 PM [facility] Basophil % 0.4 0.0 - 1.6 % 07/06/2024 12:11 PM [facility] Immature Granulocytes % 0.4 0.0 - 1.0 % 07/06/2024 12:11 PM [facility] Neutrophil Absolute 2.67 1.60 - 7.50 x10E9/L 07/06/2024 12:11 PM [facility] Lymphocyte Absolute 1.16 1.00 - 4.40 x10E9/L 07/06/2024 12:11 PM [facility] Monocyte Absolute 0.52 0.15 - 1.00 x10E9/L 07/06/2024 12:11 PM [facility] Eosinophil Absolute 0.08 0.00 - 0.60 x10E9/L 07/06/2024 12:11 PM [facility] Basophil Absolute 0.02 0.00 - 0.13 x10E9/L 07/06/2024 12:11 PM [facility] Blood BLOOD SPECIMEN / Unknown Venipuncture / Unknown 07/06/2024 11:[address] JUDGE 07/06/2024 12:02 PM [facility] us Christiano Graham MD LAB - HEMATOLOGY ORDERA BLES Final Result [facility] [address] [place] [address], [facility] [phone] * (ABNORMAL) CBC W/O DIFFERENTIAL (07/06/2024 4:[address] JUDGE) Only the most recent of4 resultswithin the time period is included. [facility] WBC 3.4(L) 4.0 - 10.7 x10E9/L 07/06/2024 5:29 AM [facility] RBC Count 1.97(L) 4.30 - 5.80 x10E12/L 07/06/2024 5:29 AM [facility] Hemoglobin 6.3(L) 13.3 - 17.5 g/dL 07/06/2024 5:29 AM [facility] Hematocrit 18.0(L) 38.7 - 51.1 % 07/06/2024 5:29 AM [facility] MCV 91.4 80.0 - 98.0 fL 07/06/2024 5:29 AM [facility] MCH 32.0 26.7 - 33.6 pg 07/06/2024 5:29 AM [facility] MCHC 35.0 31.7 - 36.3 g/dL 07/06/2024 5:29 AM [facility] RDW-CV 15.6(H) 11.3 - 14.8 % 07/06/2024 5:29 AM [facility] Platelet Count 138(L) 150 - 420 x10E9/L 07/06/2024 5:29 AM [facility] MPV 9.6 7.8 - 11.4 fL 07/06/2024 5:29 AM [facility] Blood BLOOD SPECIMEN / Unknown Venipuncture / Unknown 07/06/2024 4:[address] JUDGE 07/06/2024 5:23 AM [facility] us Jamel Cavazos MD LAB - HEMATOLOGY ORDERABLES Fi nal Result [address] [address], [facility] [phone] * (ABNORMAL) PHOSPHORUS BLOOD (07/06/2024 4:[address] JUDGE) Only the most recent of3 resultswithin the time period is included. [facility] Phosphorus 6.1(H) 2.8 - 5.1 mg/dL 07/06/2024 5:[address] JUDGE [facility] Blood BLOOD SPECIMEN / Unknown Venipuncture / Unknown 07/06/2024 4:[address] JUDGE 07/06/2024 5:[address] JUDGE Jamel Cavazos MD LAB - CHEMISTRY ORDERABLES Fin al Result Performing Organization Address City/[facility]/ZIP Co de Phone Number [address] [address], [place] [phone] * MAGNESIUM BLOOD (07/06/2024 4:[address] JUDGE) Only the most recent of5 resultswithin the time period is included. [facility] Magnesium 2.1 1.6 - 2.6 mg/dL 07/06/2024 5:[address] JUDGE [facility] Blood BLOOD SPECIMEN / Unknown Venipuncture / Unknown 07/06/2024 4:[address] JUDGE 07/06/2024 5:[address] JUDGE Jamel Cavazos MD LAB - CHEMISTRY ORDERABLES Fin al Result Performing Organization Address [facility] Co de Phone Number [address] [address], [place] [phone] * C-PEPTIDE (07/05/2024 1:[address] JUDGE) [facility] C-Peptide 1.8 0.5 - 3.3 ng/mL 07/07/2024 1:[address] JUDGE [employer] ([facility]) Comment: INTERPRETIVE INFORMATION: Serum, C-Peptide Reference Interval applies to fasting specimens. To convert to nmol/L, multiply by 0.33 Performed By: [employer] [address] [place] [address] Sample Display Preparer: Hamilton Martinez MD, PhD CLIA Number: [id number] Blood BLOOD SPECIMEN / Unknown Venipuncture / Unknown 07/05/2024 1:[address] JUDGE 07/05/2024 1:[address] JUDGE Jamel Cavazos MD LAB - CHEMISTRY ORDERABLES Fin al Result [facility] ([facility]) [address] [place] [address] * (ABNORMAL) HEMOGLOBIN A1C (07/05/2024 1:[address] JUDGE) Hemoglobin A1c 6.0(H) <=5.6 % 07/05/2024 4:[address] JUDGE [facility] Estimated Average Glucose 126 mg/dL 07/05/2024 4:[address] JUDGE [facility] Comment: HbA1c Interpretation: Normal : < 5.7% Pre-diabetes: 5.7-6.4% Diabetes: Equal to or greater than 6.5% Test results diagnostic of diabetes should be repeated for confirmation. Treatment target values recommended by ADA and other clinical organizations should be used to evaluate metabolic control in patients. Reference: [place] [employer], Standards of Care in Diabetes -2020 In patients 70 years and older consider HbA1c target range of 7.0-7.5% (Reference: Ruddy Koenig et al. JAMDA. 2012) The Sebia assay for the measurement of HbA1c is a National Glycohemoglobin Standardization Program (NGSP) certified method. Blood BLOOD SPECIMEN / Unknown Venipuncture / Unknown 07/05/2024 1:[address] JUDGE 07/05/2024 1:[address] JUDGE Jamel Cavazos MD LAB - CHEMISTRY ORDERABLES Fin al Result Performing Organization Address City/[facility]/ZIP Co de Phone Number [facility] [address] [place] [address], [facility] [phone] * LIPASE BLOOD (07/05/2024 1:[address] JUDGE) Only the most recent of2 resultswithin the time period is included. Lipase 9 8 - 78 U/L 07/05/2024 2:[address] JUDGE [facility] Blood BLOOD SPECIMEN / Unknown Venipuncture / Unknown 07/05/2024 1:[address] JUDGE 07/05/2024 1:[address] JUDGE Narrative [facility] - 07/05/2024 2:[address] JUDGE Lipase results from the Zee Alinity analyzer may not be comparable with other methodologies. us Jamel Cavazos MD LAB - CHEMISTRY ORDERABLES [facility] al Result [facility] [address] [place] [address], [facility] [phone] * XR Chest 1Vw Portable (07/05/2024 9:[address] JUDGE) Only the most recent of2 resultswithin the time period is included. Anatomical Region Laterality Modality Chest Digital Radiogra phy 07/05/2024 3:[address] JUDGE Narrative 07/05/2024 9:[address] JUDGE PROCEDURE: XR CHEST 1VW PORTABLE, DATE/TIME OF EXAM: 07/05/2024 10:05 AM, LOCATION [facility] INDICATION: K85.00: Idiopathic acute pancreatitis, unspecified [...] is normal. > Dictated by Yue FAGAN, [facility] (radiology teacher). I, Ronal Spencer MD have personally reviewed and interpreted this examination/study. > Interpreting Provider: Ronal Spencer MD on 07/05/2024 9:03 PM Procedure Note Ronal Spencer MD - 07/05/2024 PROCEDURE: XR CHEST 1VW PORTABLE, DATE/TIME OF EXAM: 07/05/2024 10:05AM, LOCATION [facility] INDICATION: K85.00: Idiopathic acute pancreatitis, unspecified [...] is normal. > Dictated by Yue FAGAN, [facility] (radiology teacher). I, Ronal Spencer MD have personally reviewed and interpreted this examination/study. > Interpreting Provider: Ronal Spencer MD on 07/05/2024 9:03 PM Jamel Cavazos MD DIAGNOSTIC IMAGING ORDERABLES Final Result * EKG 12-LEAD (07/05/2024 8:[address]GE) Only the most recent of5 resultswithin the time period is included. Ventricular Rate 101 BPM [facility] Atrial Rate 101 BPM [facility] P-R Interval 146 ms [facility] QRS Duration ms 88 ms [facility] Q-T Interval ms 326 ms [facility] MUSE QTC Calculation (Bezet) 422 ms [facility] MUSE Calculated P [place] 32 degrees [facility] MUSE Calculated R [place] 83 degrees [facility] MUSE Calculated T [place] 32 degrees [facility] MUSE Interpretation EKG SINUS TACHYCARDIA LOW VOLTAGE QRS SEPTAL INFARCT , AGE UNDETERMINED T WAVE ABNORMALITY, CONSIDER ANTEROLATERAL ISCHEMIA ABNORMAL ECG WHEN COMPARED WITH ECG OF 01-JUL-2024 03:16, NO SIGNIFICANT CHANGE WAS FOUND Confirmed by MD STEFF, GLORIA ([id number]) on 07/05/2024 12:50:27 PM [facility] MUSE 07/05/2024 8:[address] JUDGE 07/05/2024 12:[address] JUDGE Jamel Cavazos MD ECG ORDERABLES Edited Result - Final [facility] MUSE * XR Abdomen Kub Portable (07/02/2024 8:[address] JUDGE) Only the most recent of2 resultswithin the time period is included. Anatomical Region Laterality Modality Abdomen Digital Radiogra phy 07/02/2024 2:[address] JUDGE Narrative 07/03/2024 12:[address] JUDGE PROCEDURE: XR ABDOMEN KUB PORTABLE, DATE/TIME OF EXAM: 07/02/2024 8:41 AM, LOCATION [facility] INDICATION: K56.7: Ileus (HCC) ADDITIONAL CLINICAL INFORMATION: Ordering Provider Reason For Exam: ileus Technologist Note: Additional: COMPARISON: Abdomen x-ray 07/01/2024. TECHNIQUE: Supine frontal radiograph of the abdomen. FINDINGS/ IMPRESSION: Multiple mildly dilated loops of small and large bowel located centrally may represent ileus. No evidence of free air on this supine exam. > Dictated by Juana Esquivel MD, (radiology teacher). Ronal Albright MD have personally reviewed and interpreted this examination/study. > Interpreting Provider: Ronal Spencer MD on 07/03/2024 12:53 AM Procedure Note Ronal Spencer MD - 07/03/2024 PROCEDURE: XR ABDOMEN KUB PORTABLE, DATE/TIME OF EXAM: 07/02/2024 8:41AM, LOCATION [facility] INDICATION: K56.7: Ileus (HCC) ADDITIONAL CLINICAL INFORMATION: Ordering Provider Reason For Exam: ileus Technologist Note: Additional: COMPARISON: Abdomen x-ray 07/01/2024. TECHNIQUE: Supine frontal radiograph of the abdomen. FINDINGS/ IMPRESSION: Multiple mildly dilated loops of small and large bowel located centrally may represent ileus. No evidence of free air on this supine exam. > Dictated by Juana Esquivel MD, (radiology teacher). Ronal Albright MD have personally reviewed and interpreted this examination/study. > Interpreting Provider: Ronal Spencer MD on 07/03/2024 12:53 AM Jamel Cavazos MD DIAGNOSTIC IMAGING ORDERABLES Final Result * (ABNORMAL) BASIC METABOLIC PANEL (CALCIUM TOTAL) (07/01/2024 4:[address] JUDGE) BUN 31(H) 7 - 26 mg/dL 07/01/2024 5:19 AM [facility] Creatinine 0.75 0.71 - 1.16 mg/dL 07/01/2024 5:19 AM [facility] Sodium 128(L) 136 - 145 mmol/L 07/01/2024 5:19 AM [facility] Potassium 3.9 3.5 - 4.5 mmol/L 07/01/2024 5:19 AM [facility] Chloride 88(L) 98 - 107 mmol/L 07/01/2024 5:19 AM [facility] CO2 24 22 - 29 mmol/L 07/01/2024 5:19 AM [facility] Glucose 136(H) 70 - 99 mg/dL 07/01/2024 5:19 AM [facility] Calcium 10.0 8.4 - 10.2 mg/dL 07/01/2024 5:19 AM [facility] Anion Gap 16 6 - 16 07/01/2024 5:19 AM [facility] BUN/Creatinine Ratio 41(H) 7 - 23 07/01/2024 5:19 AM [facility] Osmolality Calculated 275 275 - 295 mOsm/kg 07/01/2024 5:19 AM [facility] eGFR by CKD-EPI >90 >=90 mL/min/1.7 3 m2 07/01/2024 5:19 AM [facility] Blood BLOOD SPECIMEN / Unknown Lab Venipuncture / Unknown 07/01/2024 4:22 AM [facility] 07/01/2024 4:46 AM [facility] us Que Chow MD LAB - CHEMISTRY ORDERABLES F inal Result [address] [address], [facility] [phone] * (ABNORMAL) HEPATIC FUNCTION PANEL (07/01/2024 4:22 AM [facility]) Protein Total 7.7 6.0 - 8.3 g/dL 025 9:46 AM [facility] Albumin 4.9 3.4 - 5.0 g/dL 07/01/2024 9:46 AM [facility] Bilirubin Total 1.0 0.2 - 1.2 mg/dL 06/06 9:46 AM [facility] Bilirubin Conjugated 0.3 0.1 - 0.5 mg/dL 07/01/2024 9:46 AM [facility] Bilirubin Unconjugated 0.7 Unconjugated Bilirubin is a calculated value: Reference ranges have not been established. mg/dL 07/01/2024 9:46 AM [facility] Alkaline Phosphatase 76 40 - 150 U/L 07/01/2024 9:46 AM [facility] ALT 91(H) 5 - 55 U/L 07/01/2024 9:46 AM [facility] AST 111(H) 5 - 34 U/L 07/01/2024 9:46 AM [facility] Albumin/Globulin Ratio 1.8 1.1 - 2.3 07/01/2024 9:46 AM [facility] Blood BLOOD SPECIMEN / Unknown Lab Venipuncture / Unknown 07/01/2024 4:[address] JUDGE 07/01/2024 4:[address] JUDGE Jamel Cavazos MD LAB - CHEMISTRY ORDERABLES Fin al Result [facility] [address] [place] [address], [facility] [phone] * CT ABDOMEN PELVIS W CONTRAST (06/30/2024 5:[address] JUDGE) Anatomical Region Laterality Modality Abdomen, Pelvis Computed Tomogra phy 06/30/2024 5:[address] JUDGE Impressions 06/30/2024 10:[address] JUDGE Impression: 1.Pancreatic atrophy with mild adjacent fat [...] 06/30/2024 10:01 PM Narrative 06/30/2024 10:[address] JUDGE Procedure Information DATE: 06/30/2024 5:02 PM EXAMINATION: [...] HIGH SENSITIVE REFLEX 1HOUR (06/30/2024 3:[address] JUDGE) Troponin I High Sensitive 71(H) <=35 ng/L 06/30/2024 4:[address] JUDGE [facility] Delta Troponin I HS 4 <6 ng/L 06/30/2024 4:42 PM [facility] Blood BLOOD SPECIMEN / Unknown Venipuncture / Unknown 06/30/2024 3:[address] JUDGE 06/30/2024 4:[address] JUDGE us Daryl Julian MD LAB - CHEMISTRY ORDERABLES Final Result [facility] [address] [place] [address], [facility] [phone] * (ABNORMAL) URINALYSIS REFLEX TO MICROSCOPIC NO CULTURE (06/30/2024 2:[address] JUDGE) Color UA Yellow Yellow, Straw 06/30/2024 4:00 PM [facility] Clarity UA Clear Clear 06/30/2024 4:00 PM [facility] Glucose UA 4+(A) Normal 06/30/2024 4:00 PM [facility] Bilirubin UA 1+(A) Negative 06/30/2024 4:00 PM [facility] Ketone UA 4+(A) Negative 06/30/2024 4:00 PM [facility] Specific [place] UA 1.027 1.005 - 1.030 06/30/2024 4:00 PM [facility] Blood UA 2+(A) Negative 06/30/2024 4:00 PM [facility] pH UA 5.5 5.0 - 9.0 pH 06/30/2024 4:00 PM [facility] Protein UA 2+(A) Negative 06/30/2024 4:00 PM [facility] Urobilinogen UA 4.0(A) Normal mg/dL 025 4:00 PM [facility] Nitrite UA Negative Negative 06/30/2024 4:00 PM [facility] Leukocyte UA Negative Negative 06/30/2024 4:00 PM [facility] RBC UA 3-5 0 - 5 # /hpf 06/30/2024 4:00 PM [facility] WBC UA 0-5 0 - 5 # /hpf 06/30/2024 4:00 PM [facility] Bacteria UA None Seen None Seen 06/30/2024 4:00 PM [facility] Squamous Epithelial Cells 0-2 0 - 5 /hpf 06/30/2024 4:00 PM [facility] Mucus UA 2+ /LPF 06/30/2024 4:00 PM [facility] Urine URINE SPECIMEN OBTAINED BY CLEAN CATCH PROCEDURE / Unknown Collection / Unknown 06/30/2024 2:[address] JUDGE 06/30/2024 2:[address] JUDGE us Daryl Julian MD LAB - URINALYSIS ORDERABLE S Final Result [facility] [address] [place] [address], [facility] [phone] * (ABNORMAL) URINE DRUG SCREEN IMMUNOASSAY (06/30/2024 2:[address] JUDGE) Amphetamines Screen Urine Negative Negative : < 1000 ng/mL 06/30/2024 3:23 PM [facility] Barbiturates Screen Urine Negative Negative : < 200 ng/mL 06/30/2024 3:23 PM [facility] Benzodiazepine Screen Urine Negative Negative : < 200 ng/mL 06/30/2024 3:23 PM [facility] Opiates Urine Positive(A) Negative : < 300 ng/mL 06/30/2024 3:23 PM [facility] Comment:Positive urine opiat e screening results should be confirmed by another generally accepted non-immunological method such as gas chromatography or mass spectrometry. Cocaine Metabolites Urine Negative Negative : < 300 ng/mL 06/30/2024 3:23 PM [facility] Phencyclidine Screen Urine Negative Negative : < 25 ng/ml 06/30/2024 3:23 PM [facility] Cannabinoids Screen Urine Negative Negative : <50 ng/mL 06/30/2024 3:23 PM [facility] Methadone Screen Urine Negative Negative : < 300 ng/mL 06/30/2024 3:23 PM [facility] Fentanyl Screen Urine Positive(A) Negative : <1.5 ng/mL 06/30/2024 3:23 PM [facility] Comment:Positive urine fenta nyl screening results should be confirmed by another generally accepted non-immunological method such as gas chromatography or mass spectrometry. Urine URINE / Unknown Collection / Unknown 06/30/2024 2:[address] JUDGE 06/30/2024 2:[address] JUDGE Narrative [facility] - 06/30/2024 3:[address] JUDGE The Urine Toxicology Screening Panel does not screen for Propoxyphene, Meprobamate, Carisoprodol, Trazodone, swut-biq-dbcglpu medications and/or volatiles (Acetone, Isopropanol, Methanol or Ethylene Glycol). Ethanol, Salicylate, Acetaminophen, Tricyclic Antidepressants and several therapeutic drugs may be individually assayed in serum or plasma specimen. Toxicology testing by the [facility] is an aid to medical diagnosis and treatment of patients. No documented chain of custody was maintained. Results are intended to be used for clinical purposes only. Daryl Julian MD LAB - URINE CHEMISTRY ORDE RABCRYSTAL Final Result Performing Organization Address [facility] Co de Phone Number [address] [address], [facility] [phone] * PT-INR [facility] (06/30/2024 2:[address] JUDGE) PT 12.7 12.1 - 14.8 Seconds 06/30/2024 3:[address] JUDGE [facility] INR 1.0 See Comment 06/30/2024 3:[address] JUDGE [facility] Comment:The suggested therap eutic range for standard coumadin (warfarin) therapy is an INR of 2.0-3.0. For high-risk patients (Mechanical Mitral Valve Prosthesis, etc.), the suggested prophylactic therapeutic range is an INR of 2.5-3.5. Blood BLOOD SPECIMEN / Unknown Venipuncture / Unknown 06/30/2024 2:[address] JUDGE 06/30/2024 2:[address] JUDGE Daryl Julian MD LAB - COAGULATION ORDERABL ES Final Result Performing Organization Address [facility] Co de Phone Number [address] [phone], [facility] [phone] * LACTIC ACID BLOOD REFLEX TO REPEAT (06/30/2024 2:[address] JUDGE) [facility] Lactic Acid-Stat 1.3 <=2.0 mmol/L 06/30/2024 3:[address] JUDGE [facility] Blood BLOOD SPECIMEN / Unknown Venipuncture / Unknown 06/30/2024 2:[address] JUDGE 06/30/2024 2:[address] JUDGE Daryl Julian MD LAB - CHEMISTRY ORDERABLES Final Result Performing Organization Address [facility] Co de Phone Number [facility] [address] [place] [phone], [place] [phone] * (ABNORMAL) TROPONIN-I HIGH SENSITIVE BASELINE + 1HR (06/30/2024 2:[address] JUDGE) [facility] Troponin I High Sensitive 67(H) <=35 ng/L 06/30/2024 3:[address] JUDGE [facility] Blood BLOOD SPECIMEN / Unknown Venipuncture / Unknown 06/30/2024 2:[address] JUDGE 06/30/2024 2:[address] JUDGE Daryl Julian MD LAB - CHEMISTRY ORDERABLES Final Result Performing Organization Address [facility] de Phone Number [address] [address], [place] [phone] * B-TYPE NATRIURETIC PEPTIDE (06/30/2024 2:[address] JUDGE) [facility] BNP 38 <100 pg/mL 06/30/2024 3:[address] JUDGE [facility] Comment: A decision threshold of 100 [...] Unknown Venipuncture / Unknown 06/30/2024 2:[address] JUDGE 06/30/2024 2:[address] JUDGE Daryl Julian MD LAB - CHEMISTRY ORDERABLES Final Result Performing Organization Address [facility]/ZIP Co de Phone Number [address] [address], [facility] [phone] * ALCOHOL ETHYL BLOOD (06/30/2024 2:[address] JUDGE) Ethanol (mg/dL) <10 <10 mg/dL 3:[address] JUDGE [facility] Ethanol Calculated (g/dL) <0.010 <=0.010 g/dL 06/30/2024 3:[address] JUDGE [facility] Blood BLOOD SPECIMEN / Unknown Venipuncture / Unknown 06/30/2024 2:[address] JUDGE 06/30/2024 2:[address] JUDGE Narrative [facility] - 06/30/2024 3:[address] JUDGE Ethanol Interp <10: None Detected. Depression of CHEF ASSISTANT: >100 mg/dl Potentially Critical: >250 mg/dl Potentially [...] CHEMISTRY ORDERABLES Final Result Performing Organization Address [facility]/ZIP Co de Phone Number [address] [address], [place] [phone] * HIV-1 HIV-2 ANTIBODY + HIV P24 AG PANEL (02/03/2024 8:26 PM CDT) HIV Antigen/Antibod y 1 & 2 Non-reacti ve Non-react judy 02/03/2024 9:49 PM CDT [facility] Comment:No Laboratory eviden ce of HIV infection. Blood BLOOD SPECIMEN / Unknown Line Draw / Unknown 02/03/2024 8:26 PM CDT 02/03/2024 8:36 PM CDT us Aminata Marlow PA-C LAB - CHEMISTRY ORDERABLES F inal Result [facility] [address] [place] [address], [facility] [phone] from Last 3 Months or Most Recently Relevant to Health Maintenance Insurance [facility] [employer] ANTHEM ANTHEM ANTHEM Advance [...] 5:17 PM 02/14/2024 11:35 AM Care Teams Bark Peeler Relationship Specialty Start Date End Date An Kamara, INO-PYROMETER OPERATOR [address] [place] [phone] PCP - General Nurse Practitioner Family 02/16/24
--- OUTSIDE RECORDS SUMMARY | 2024-09-07 05:24 | XMS_ITS | Clinical Summary ---
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 Indications: sleep disturbance 08/11/19 Active biotin 64700 MCG tabletIndications: supplement Take 10,000 mcg by [...] Care Team Description 08/16/2024 Home Care Visit [address] [address] Aisha Radford RN CASE COMMUNICATION 08/13/2024 1:00 PM CDT Home Care Visit [address] [address] Minerva Lancaster, RN CASE COMMUNICATION 08/12/2024 1:30 PM CDT Home Care Visit [address] [place] [address] [place] [address] Jes Flores L, OT PATIENT NOT HOME 08/10/2024 1:16 PM CDT - 08/10/2024 11:59 PM CDT Hospital Encounter [facility] Laboratory [address] [place] [address] Tony Mcelroy MD Discharge Disposition: Home or Self Care (Routine Discharge) 08/10/2024 10:15 AM CDT Home Care Visit [address] [place] [address] Minerva Lancaster, MADHURI SN NON ADMIT SOC 08/10/2024 Orders Only [facility] Laboratory [address] [place] [address] Tony Mcelroy MD 08/03/[address] [address] [facility] 07/22/2024 1:38 PM CDT - 07/22/2024 2:30 PM CDT Hospital Encounter [facility] Surgery [address] [place] [address] Tony Mcelroy MD Discharge Disposition: Home or Self Care (Routine Discharge) 07/22/2024 1:37 PM CDT Hospital Encounter [facility] Laboratory [address] [place] [address] Tony Mcelroy MD Discharge Disposition: Home or Self Care (Routine Discharge) 07/22/2024 Telephone [facility] [address] [place] [address] Mary Ellen Mahmood MD Lab Results (Critical value ) 07/22/2024 Travel 06/24/2024 1:57 PM FURNACE CHARGER - 06/24/2024 2:52 PM FURNACE CHARGER Hospital Encounter [facility] [address] [place] [address] Tony Mcelroy MD Discharge Disposition: Home or Self Care (Routine Discharge) 06/24/2024 Travel 06/18/2024 12:07 PM FURNACE CHARGER - 06/18/2024 12:40 PM FURNACE CHARGER Hospital Encounter [facility] [address] [place] [address] Tony Mcelroy MD Discharge Disposition: Home or Self Care (Routine Discharge) 06/18/2024 Travel 06/10/2024 1:43 PM FURNACE CHARGER - 06/10/2024 3:03 PM FURNACE CHARGER Hospital Encounter [facility] [address] [place] [address] Tony Mcelroy MD Discharge Disposition: Home or Self Care (Routine Discharge) 06/10/2024 Travel from Last 3 Months Family History Medical History Relation Comments OK Father No Known Problems Mother meninigitis Sister [...] from your doctor or pharmacy? Never 09/18/2023 C Utilities Answer Date Recorded In the past 12 months has th e electric, [employer], oil, or water [employer] threatened to shut off services in your [...] week 08/13/2023 How often do you attend [facility] or [facility] services? 1 to 4 times per year [...] medical care, and heating? Patient declined 10/27/2023 [facility] - Occupational Stress [...] place to sleep or slept in a penitentiary (including now)? No 03/29/2023 Housing Stability Vital Sign Answer Bryan e Recorded In the last 12 months, was t here a time when you were not able to pay the mortgage or rent on time? Patient declined 10/27/19 In the past 12 months, how m any times have you moved where you were living? 0 10/27/2023 At any time in the past 12 m ont, were you homeless or living in a penitentiary (including now)? Patient declined 10/27/2023 Sex and [...] lb 6.4 oz) 05/07/2024 3:07 P M FURNACE CHARGER Height 185.4 cm (6' 1 ) 05/07/2024 3:07 PM FURNACE CHARGER Body Mass Index 19.05 05/07/2024 3:07 PM FURNACE CHARGER Plan of Treatment Health Maintenance Due Date [...] discharge from hospital Lifestyle No Hiral Diamond, clinical support tech Procedure Name Priority Date/Time Associated Diagnosis Comments [...] PRO-BRAIN NATRIURETIC PEPTIDE Routine 06/24/2024 3:05 PM FURNACE CHARGER Chronic systolic heart failure (CMS/HCC HHS/HCC) COMPREHENSIVE METABOLIC PANEL Routine 06/24/2024 3:05 PM FURNACE CHARGER Chronic systolic heart failure (CMS/HCC HHS/HCC) from Last 3 Months Results * (ABNORMAL) PRO-BRAIN NATRIURETIC PEPTIDE (08/10/2024 11:30 AM CDT) Only the most recent of3 resultswithin the time period is included. PRO-B TYPE NATRIURETIC PEPTIDE 774(H) <125 PG/ML 08/10/2024 2:16 PM CDT [facility] Comment: CUT POINTS ESTABLISHED [...] us Tony Mcelroy MD LABORATORY Final Result [facility] [address] [place] [address], * (ABNORMAL) BASIC METABOLIC PANEL (08/10/2024 11:30 AM CDT) GLUCOSE 234(H) 70 - 99 MG/DL 08/10/2024 2:16 PM CDT [facility] BUN 21(H) 7 - 18 MG/DL 08/10/2024 2:16 PM CDT [facility] CREATININE S/P/B 0.74 0.7 - 1.3 MG/DL 08/10/2024 2:16 PM CDT [facility] SODIUM S/P/B 134(L) 136 - 145 MMOL/L 08/10/2024 2:16 PM CDT [facility] POTASSIUM S/P/B 2.9(LL) 3.5 - 5.1 MMOL/L 08/10/2024 2:30 PM CDT [facility] Comment: Critical Result(s) Called at: 14:27:57 on 08/10/2024 by: Rabia Denny to and read back by:VIRGIE BEARD RN HOME HEALTH CHLORIDE S/P/B 92(L) 100 - 108 MMOL/L 08/10/2024 2:16 PM CDT [facility] CO2 34.9(H) 21 - 32 MMOL/L 08/10/2024 2:16 PM CDT [facility] CALCIUM S/P/B 9.5 8.5 - 10.1 MG/DL 08/10/2024 2:16 PM CDT [facility] ANION GAP 7.1 5 - 15 MMOL/L 08/10/2024 2:16 PM CDT [facility] BUN CREATININE RATIO 28.4(H) 6 - 26 08/10/2024 2:16 PM CDT [facility] GFR ESTIMATE >90 >90 ML/MIN/1.7 3 M2 08/10/2024 2:16 PM CDT [facility] Comment: NOTE: eGFR is not calculated for patients <18 years of age. This is an estimated GFR calculation using the new CKD EPI creatinine equation without race and so does not require a correction factor for race. This estimated GFR should not be used for calculating drug doses. 08/10/2024 11:3 0 AM CDT Tony Mcelroy MD LABORATORY Final Result [facility] [address] [place] [address], [place] [phone] * (ABNORMAL) CBC W/DIFF AUTOMATED (08/10/2024 11:30 AM CDT) WBC 6.23 4.4 - 11.0 x10'3/uL 08/10/2024 1:21 PM CDT [facility] RBC 3.49(L) 4.50 - 5.90 x10'6/uL 08/10/2024 1:21 PM CDT [facility] HGB 10.5(L) 14.0 - 17.5 G/DL 08/10/2024 1:21 PM T [facility] HCT 32.0(L) 41.5 - 50.4 % 08/10/2024 1:21 PM CDT [facility] MCV 91.7 80.0 - 96.0 FL 08/10/2024 1:21 PM CDT [facility] MCH 30.1 26.5 - 31.4 PG 08/10/2024 1:21 PM CDT [facility] MCHC 32.8 31.9 - 34.8 G/DL 08/10/2024 1:21 PM T [facility] RDW 15.6(H) 12.3 - 14.3 % 08/10/2024 1:21 PM T [facility] PLT 155 151 - 353 x10'3/uL 08/10/2024 1:21 PM T [facility] MPV 10.7 9.7 - 11.9 FL 08/10/2024 1:21 PM T [facility] RBC MORPHOLOGY NORMAL 08/10/2024 1:21 PM T [facility] PLT MORPH. NORMAL 08/10/2024 1:21 PM T [facility] WBC MORPHOLOGY NORMAL 08/10/2024 1:21 PM T [facility] LYMPHOCYTES % 19.4 15.8 - 45.0 % 08/10/2024 1:21 PM T [facility] NEUTROPHILS % 69.7 42.1 - 71.9 % 08/10/2024 1:21 PM CDT [facility] MONOCYTES % 9.0 5.7 - 12.5 % 08/10/2024 1:21 PM T [facility] EOSINOPHILS 1.1 0.0 - 5.6 % 08/10/2024 1:21 PM T [facility] BASOPHILS 0.5 0.0 - 1.3 % 08/10/2024 1:21 PM T [facility] ABS. NEUTROPHILS 4.34 1.40 - 6.00 x10'3/uL 08/10/2024 1:21 PM CDT [facility] IMMATURE GRANS % 0.3 0.0 - 0.5 % 08/10/2024 1:21 PM CDT [facility] ABS. LYMPHOCYTES 1.21 0.80 - 4.70 x10'3/uL 08/10/2024 1:21 PM CDT [facility] 08/10/2024 11:3 0 AM CDT us Tony Mcelroy MD LABORATORY Final Result [facility] [address] [place] [address], [place] [phone] * (ABNORMAL) COMPREHENSIVE METABOLIC PANEL (07/22/2024 2:15 PM CDT) Only the most recent of2 resultswithin the time period is included. GLUCOSE 474(HH) 70 - 99 MG/DL 07/22/2024 3:37 PM CDT [facility] Comment: Critical Result(s) Called at: 15:31:41 on 07/22/2024 by: KEI FORBES to and read back by: MAGDALENA DANIELS READING TEACH[employer] BUN 25(H) 7 - 18 MG/DL 07/22/2024 3:37 PM CDT [facility] CREATININE S/P/B 1.07 0.7 - 1.3 MG/DL 07/22/2024 3:37 PM CDT [facility] SODIUM S/P/B 132(L) 136 - 145 MMOL/L 07/22/2024 3:37 PM CDT [facility] POTASSIUM S/P/B 5.2(H) 3.5 - 5.1 MMOL/L 07/22/2024 3:37 PM CDT [facility] CHLORIDE S/P/B 98(L) 100 - 108 MMOL/L 07/22/2024 3:37 PM [facility] CO2 27.3 21 - 32 MMOL/L 07/22/2024 3:37 PM [facility] CALCIUM S/P/B 9.0 8.5 - 10.1 MG/DL 07/22/2024 3:37 PM [facility] BILIRUBIN TOTAL S/P/B 0.2 0.2 - 1.2 MG/DL 07/22/2024 3:37 PM [facility] TOTAL PROTEIN S/P/B 6.3(L) 6.4 - 8.2 G/DL 07/22/2024 3:37 PM [facility] ALBUMIN S/P/B 3.7 3.4 - 5.0 G/DL 07/22/2024 3:37 PM [facility] AST 13(L) 15 - 37 U/L 07/22/2024 3:37 PM [facility] ALT 24 16 - 60 U/L 07/22/2024 3:37 PM [facility] ALKALINE PHOSPHATASE S/P/B 55 50 - 136 U/L 07/22/2024 3:37 PM [facility] ANION GAP 6.7 5 - 15 MMOL/L 07/22/2024 3:37 PM [facility] BUN CREATININE RATIO 23.4 6 - 26 07/22/2024 3:37 PM [facility] A/G RATIO 1.4 1.0 - 2.0 RATIO 07/22/2024 3:37 PM [facility] GFR ESTIMATE >90 >90 ML/MIN/1.7 3 M2 07/22/2024 3:37 PM [facility] Comment: NOTE: eGFR is not calculated for patients <18 years of age. This is an estimated GFR calculation using the new CKD EPI creatinine equation without race and so does not require a correction factor for race. This estimated GFR should not be used for calculating drug doses. 07/22/2024 2:15 PM CDT us Mary Ellen Mahmood MD LABORATORY Final Result [facility] [address] [place] [address], from Last 3 Months Insurance [facility] Advance Directives * Full Code (Latest Code [...] 9:04 PM 09/09/2023 6:46 PM Care Teams Manager Animation Relationship Specialty Start Date End Date Pelon Rodriguez MD [address] [place] [address] [place] [phone] PCP - General FAMILY PRACTICE 08/03/24 Tony Mcelroy MD [address] [facility] [address] [place] [address] CARDIOVASCULAR DISEASE 04/29/24 Bar Alegria MD [address] [facility] [address] [place] [address] INTERNAL MEDICINE 04/29/24
--- OUTSIDE RECORDS SUMMARY | 2024-09-07 05:24 | XMS_ITS | Encounter Summary ---
Author Organization [facility] Address [facility] [place] [address] Care Team Providers Care Line Clearance Foreman Name Role Phone Malcolm Smart MD Primary Care Provider [phone] Erika Carreon NP Primary Care Provider [phone] Tony Mcelroy MD Unavailable Bar Alegria MD Unavailable [phone] Pelon Rodriguez MD Primary Care Provider [phone] Encounter Details Date Type Department Care Team (Late st Contact Info) Description 2024 Therapy Plan [facility] [address] [place] [address] Tony Mcelroy MD [address] [address] Social History Tobacco Use Types [...] from your doctor or pharmacy? Never 09/18/2023 [facility] Utilities Answer Date Recorded In the past 12 months has [employer], oil, or [employer] threatened to shut off services in your [...] How often do you attend chur or anabaptist services? 1 to 4 times per year 08/13/2023 Do you belong to any clubs o r organizations such as hindu groups, unions, fraternal or athletic groups, or [...] medical care, and heating? Patient declined 10/27/2023 [facility] - [...] place to sleep or slept in a long term (including now)? No 03/29/2023 Housing Stability Vital [...] any time in the past 12 m [facility], were you homeless or living in a long term (including now)? Patient declined 10/27/2023 Sex and [...] Diagnoses Diagnosis Chronic systolic heart failure (CMS/HCC [facility])- Primary Chronic systolic heart failure documented in this encounter Care Teams Line Clearance Foreman Relationship Specialty Start Date End Date Malcolm Smart MD [address] [facility] [place] [address] PCP - General FAMILY PRACTICE 10/26/23 04/21/24 Erika Carreon NP [address] [place] [phone] PCP - General NURSE PRACTITIONER 04/22/24 08/02/24 Pelon Rodriguez MD [address] [place] [phone] PCP - General FAMILY PRACTICE 08/03/24 Tony Mcelroy MD [address] [facility] [address] [place] [address] CARDIOVASCULAR DISEASE 04/29/24 Bar Alegria MD [address] [facility] [address] [place] [address] INTERNAL MEDICINE 04/29/24 documented as of this encounter
--- OUTSIDE RECORDS SUMMARY | 2024-09-07 05:24 | XMS_ITS | Data Portability ---
Author Organization [facility] [employer], Main Office Address [address] [place] [address] Care Team Providers Care Construction Driver Name Role Phone JOSE J JUSTIN Powdered Metal Supervisor Assessment No assessment recorded. Plan of Treatment Reminders Order Date Submit Date Provider Last Modified By Organization Details Last Modified Time Details Appointments None recorded. Lab CBC w/ auto diff 2023 [facility], [address] [place], [address], 5 19:38:54 CMP, serum or plasma [address] Outpatient Lab, [address] [place], [address], 4 17:16:55 lipid panel, serum 2023 024 [facility] (Lab), [address] [place], [address], 4 08:13:06 TSH + free T4, serum [address] Outpatient Lab, [address] [place], [address], 4 17:16:55 HbA1c (hemoglobi n A1c), blood 2023 024 [facility], [address] [place], [address], 4 08:13:06 Referral None recorded. Procedures None recorded. Surgeries None recorded. Imaging None recorded. Medication Orders zolpidem 10 mg tablet 2023 [id number], [address], [place], [place], [id number], 4 17:09:42 clonazepam 2 mg tablet 2023 024 [facility] #76578, [address], [place], [place], [id number], 4 17:09:40 hydrocodon e 10 mg-acetami nophen 325 mg tablet 2023 024 [facility] [employer] [facility] #42489, [address], [place], [place], [id number], 4 17:09:36 cyclobenza elen 5 mg tablet 2023 024 [facility] #84462, [address], [place], [place], [id number], 4 17:09:35 furosemide 20 mg tablet 2023 024 [facility] #28769, [address], [place], [place], [id number], 4 17:09:35 midodrine 10 mg tablet 2023 024 [facility] #10656, [address], [place], [place], [id number], 4 15:15:22 Patient TargetsNo targets recorded. Patient Instructions Encounter Date Encounter Id Patient Instructions Last Modified By Organization Details Last Modified Time 03/22/2024 [id number] Follow up in 3 months if not continuing hospice. Obtain labs Tests: Referral: Recommend: Tetanus vaccine Not available 03/22/2024 14:52:15 04/13/2024 [id number] Follow up in 3 months Prescriptions sent to pharmacy Obtain labs Tests: Referral: Recommend: Tetanus vaccine Shingles vaccine Not available 04/13/2024 17:08:37 Reason for Referral None Reported. Results Created Date Observation Date Name Description Value Unit Range Abnormal Flag Note LastModifiedBy Organization Detail LastModifiedTime 07/30/1907/28/2024 XR, chest , 2 view No observ ation record ed. [facility] [address], [place], [address], 08/04/2024 09:02:45 Result Notes None recorded. Problems Name Problem SNOMED Code Status Onset Date Resolution Date Notes Provider Name and Address Organization Details Recorded Time Pain in bilateral legs 4784605439637 9108 Active 2023 Erika Carreon APRN [address], [address], [place], [address], [employer] 4 14:54:44 Heart failure 25609479 Active 2023 Erika Carreon APRN [address], [address], [place], [address], [employer] 4 08:36:05 Anxiety 92486585 Active 2023 Erika Carreon APRN [address], [address], [place], [address], [employer] 4 16:57:51 Insomnia 576195599 Active 2023 Erika Carreon APRN [address], [address], [place], [address], [employer] 4 17:05:06 Pain in lower limb 91796833 Active 2023 Erika Carreon APRN [address], [address], [place], [address], [employer] 4 17:05:54 Prediabetes 901316653 Active 2024 Erika Carreon APRN [address], [address], [place], [address], [employer] [facility] 19:38:15 Problem Notes None recorded. Procedures Surgical History Date Name Laterality Status Provider Name and Address Organization Details Recorded Time extracorporeal membrane oxygenation completed Freida Johnson [place] [employer] [facility] [employer] 03/22/2024 14:22:05 Ankle Surgery completed Freida Johnson MA [place] [employer] [facility] [employer] [facility] [employer] 03/22/2024 14:22:16 Imaging Results Imaging Date Name Status LastModified by Organiz ation Details LastModified Time 07/28/2024 XR, chest, 2 view completed [address], [place], [address], 08/04/2024 09:02:45 Procedure Notes None recorded. Medical Equipment None Reported. Allergies Allergen ID Allergen Name Allergen Category Reaction Reaction Severity Criticality Documentation Date Start Date Code Code System Note Provider Name and Address Organization Details Recorded Time 30552 sulfameth oxazole / trimethop rim medicatio n Not available Not available Not available 03/22/2024 52593 RxNorm Freida Johnson MA null, [facility] [employer] 14:07:29 Medications Name Sig Start Date Stop Date Status Note LastModified by Organization Details LastModified Time local delivery 03/22 completed Not Available Not Available Not Available [facility] after hours fee AFTER hours [...] Updated DateTime 4 182.88 cm 18 kg/m2 66687.7 9 g 98.2 [degF] 86 /min 99 % 99 % 7 120 mm[Hg] 64 mm[Hg] Freida Johnson MA [place] [employer] 4 14:07:07 Date Recorded Body height Body mass index (BMI) Body weight Body temperature Heart rate Oxygen saturation Oxygen saturation in Arterial blood by Pulse oximetry Pain severity - 0-10 verbal numeric rating [Score] - Reported Systolic blood pressure Diastolic blood pressure Provider Name and Address Organization Details Last Updated DateTime 4 182.88 cm 20.1 kg/m2 47825.6 7 g 98 [degF] 102 /min 99 % 99 % 6 108 mm[Hg] 64 mm[Hg] Freida Johnson MA [employer] [facility] [employer] 4 16:42:11 Social History Question Answer Notes LastModified by Organizat ion Details LastModified Time Tobacco Smoking Status Former Smoker Freida Johnson MA [facility] [employer] [facility] [employer] 03/22/2024 14:20:20 What Is Your Level Of [...] Anxious, Or Unable To Sleep At Night)? [id number] Information not available 03/22/2024 Do You Use [...] or 50 mcg/0.25mL dose 07/06/2021 completed Erika Carreon, [employer] [address] [facility], [address], [place], [address], [facility] 03/22/2024 14:25:35 Past Encounters Encounter ID Performer Location Encounter Start Date Encounter Closed Date Diagnosis/Indication Diagnosis SNOMED-CT Code Diagnosis ICD10 Code Diagnosis Note [id number] Ravindra elias MD [facility] Internal Med [address] [facility] [address] [place] [id number] 03/22/2024 13:52:57 03/22/2024 15:27:15 Heart failure 78238149 I50.9 [id number] Ravindra elias MD [facility] Internal Med [address] [facility] [address] [place] [id number] 04/13/2024 16:31:22 04/13/2024 17:18:13 Anxiety 95503300 F41.9 Insomnia 697250737 G47.0 0 Pain in lower limb 79751 006 M79.606 Heart failure 82113134 I 50.9 Diabetes m ellitus screening 092603142 Z13.1 Hyperlipid emia screening 029898818 Z13.220 Screening for disorder 283486941 Z13.9 Thyroid di sorder screening 072788502 Z13.29 Health Concerns Section Related Observation LastModified by Organization Detai ls LastModified Time None Recorded Concern Status LastModified by Organization Details LastModified Time None Recorded Advance Directives Directive None Recorded Payers Encounter Date Sequence Insurance Name Policy Number Policy Rangel Covered Member ID Rangel Member ID Guarantor Name 03/22/2024 1 [employer] [id number] Douglas Wright [id number] Douglas Wright 04/13/2024 1 [employer] [id number] Douglas Wright [id number] Douglas Wright Notes Date Note Type Note Provider Name and Address Organization Details Recorded Time 03/22/2024 text/html Douglas presents today to establish care as a new patient. He is currently on hospice due to heart failure. He states that he wants to get off of hospice. He is currently on a continuous infusion of milrinone. He states that he was at [facility] for a month and sent home on hospice due to the heart failure. He states his EF was at 20 when he left the hospital. 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 He states that he has an appointment with a recreation adviser on 04/05/2024. He cannot get off of hospice until he has a primary provider and a recreation adviser in place. Erika Carreon APRN [address], [address], [place], [address], [facility] [employer] 03/22/2024 15:18:21 04/13/2024 text/html Douglas presents today to discuss medications. Patient states that he is revoking his hospice care effective of 04/15/2024. He has an appointment with recreation adviser on 04/16/2024. He states that he is wanting to see what his heart is doing. Patient informed that this provider will not prescribe morphine or fentanyl for his pain. Also instructed that this provider will also not prescribe the milrinone and that will have to be cardiology. 03/22/2024Saltyrancho presents today to establish care as a new patient. He is currently on hospice due to heart failure. He states that he wants to get off of hospice. He is currently on a continuous infusion of milrinone. He states that he was at [facility] for a month and sent home on hospice due to the heart failure. He states his EF was at 20 when he left the hospital. 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 He states that he has an appointment with a recreation adviser on 04/05/2024. He cannot get off of hospice until he has a primary provider and a recreation adviser in place. Erika Carreon APRN [address], [address], [place], [address], [facility] 04/13/2024 17:16:49
--- OUTSIDE RECORDS SUMMARY | 2024-09-07 05:24 | XMS_ITS | Data Portability ---
Author Organization [place] - [facility], PREVIOUS COUNSELING Address [address] [place] [id number] Assessment No assessment recorded. Plan of Treatment Reminders Order Date Submit Date Provider Last Modified By Organization Details Last Modified Time Details Appointments None recorded. Lab drug screen, urine [address], [address] [place] [address], [phone], 3 14:30:27 gamma-gluta myl transferase (ggt), serum 2022 023 [place] [facility], [address] [facility], [place] [address], [place], [address], 3 09:36:04 CMP, serum or plasma 2022 023 [place] [facility], [address] [facility], [place] [address], [place], [address], 3 09:36:03 CBC w/ auto diff 2022 023 [place] [facility], [address] [facility], [facility] [address], [place], [address], 3 06:35:44 hepatitis C Ab, signal-to-c utoff, serum or plasma 2022 023 [place] [facility], [address] [facility], [facility] [address], [place], [address], 3 12:35:37 Referral None recorded. Procedures None recorded. Surgeries None recorded. Imaging None recorded. Medication Orders naltrexone 50 mg tablet 2022 023 J[place]UA [facility] #[id number], [address] [place], [address], 3 15:50:44 naltrexone 50 mg tablet 2022 023 [facility] #[id number], [address] [place], [address], 3 13:01:30 Patient TargetsNo targets recorded. Patient [...] 06/22/2022 8449 Patient informed to call [facility] Specialty pharmacy to discontinue the Vivitrol shipment has it has not been delivered to the clinic. [email or web address] Not available 06/23/2022 15:52:20 Reason for Referral None Reported. Results Created Date Observation Date Name Description Value Unit Range Abnormal Flag Note LastModifiedBy Organization Detail LastModifiedTime 06/11/19 23 06/12/2022 CBC WITH DIFFE RENTI AL/PL ATELE T WBC 9.9 x10e3 /uL 3.4-10 .8 Not Available [facility] ([facility]) [address] [place], [address], 06/12/2022 06:35:41 06/11/1906/12/2022 CBC WITH DIFFE RENTI AL/PL ATELE T RBC 5.05 x10e6 /uL 4.14-5 .80 Not Available [facility] ([facility]) [address] [place], [address], 06/12/2022 06:35:41 06/11/19 23 06/12/2022 CBC WITH DIFFE RENTI AL/PL ATELE T hemoglobin 16.3 g/dL 13.0-1 7.7 Not Available [facility] ([facility]) [address] [place], [address], 06/12/2022 06:35:41 06/11/1906/12/2022 CBC WITH DIFFE RENTI AL/PL ATELE T hematocrit 46.5 % 37.5-5 1.0 Not Available [facility] ([facility]) [address] [place], [address], 06/12/2022 06:35:41 06/11/19 23 06/12/2022 CBC WITH DIFFE RENTI AL/PL ATELE T MCV 92 fL 79-97 Not Available [facility] ([facility]) [address] [place], [address], 06/12/2022 06:35:41 06/11/19 23 06/12/2022 CBC WITH DIFFE RENTI AL/PL ATELE T MCH 32.3 pg 26.6-3 3.0 Not Available [facility] ([facility]) [address] [facility], [place], [address], 06/12/2022 06:35:41 06/11/19 23 06/12/2022 CBC WITH DIFFE RENTI AL/PL ATELE T MCHC 35.1 g/dL 31.5-3 5.7 Not Available [facility] ([facility]) [address] [facility], [place], [address], 06/12/2022 06:35:41 06/11/19 23 06/12/2022 CBC WITH DIFFE RENTI AL/PL ATELE T RDW 13.4 % 11.6-1 5.4 Not Available [facility] ([facility]) [address] [facility], [place], [address], 06/12/2022 06:35:41 06/11/19 23 06/12/2022 CBC WITH DIFFE RENTI AL/PL ATELE T platelets 196 x10e3 /uL 150-45 0 Not Available [facility] ([facility]) [address] [facility], [place], [address], 06/12/2022 06:35:41 06/11/19 23 06/12/2022 CBC WITH DIFFE RENTI AL/PL ATELE T neutrophils 69 % not estab. Not Available [facility] ([facility]) [address] [facility], [place], [address], 06/12/2022 06:35:41 06/11/19 23 06/12/2022 CBC WITH DIFFE RENTI AL/PL ATELE T lymphs 21 % not estab. Not Available [facility] ([facility]) [address] [facility], [place], [address], 06/12/2022 06:35:41 06/11/19 23 06/12/2022 CBC WITH DIFFE RENTI AL/PL ATELE T monocytes 7 % not estab. Not Available [facility] ([facility]) [address] [facility], [place], [address], 06/12/2022 06:35:41 06/11/19 23 06/12/2022 CBC WITH DIFFE RENTI AL/PL ATELE T eos 1 % not estab. Not Available [facility] ([facility]) [address] [facility], [place], [address], 06/12/2022 06:35:41 06/11/19 23 06/12/2022 CBC WITH DIFFE RENTI AL/PL ATELE T basos 1 % not estab. Not Available [facility] ([facility]) [address] [facility], [place], [address], 06/12/2022 06:35:41 06/11/19 23 06/12/2022 CBC WITH DIFFE RENTI AL/PL ATELE T immature cells AIRPLANE NAVIGATOR Not Available [facility] ([facility]) [address] [place], [address], 06/12/2022 06:35:41 06/11/19 23 06/12/2022 CBC WITH DIFFE RENTI AL/PL ATELE T neutrophils (absolute) 7.0 x10e3 /uL 1.4-7. 0 Not Available [facility] ([facility]) [address] [place], [address], 06/12/2022 06:35:41 06/11/19 23 06/12/2022 CBC WITH DIFFE RENTI AL/PL ATELE T lymphs (absolute) 2.1 x10e3 /uL 0.7-3. 1 Not Available [facility] ([facility]) [address] [place], [address], 06/12/2022 06:35:41 06/11/19 23 06/12/2022 CBC WITH DIFFE RENTI AL/PL ATELE T monocytes(ab solute) 0.6 x10e3 /uL 0.1-0. 9 Not Available [facility] ([facility]) [address] [facility], [place], [address], 06/12/2022 06:35:41 06/11/19 23 06/12/2022 CBC WITH DIFFE RENTI AL/PL ATELE T eos (absolute) 0.1 x10e3 /uL 0.0-0. 4 Not Available [facility] ([facility]) [address] [facility], [place], [address], 06/12/2022 06:35:41 06/11/19 23 06/12/2022 CBC WITH DIFFE RENTI AL/PL ATELE T baso (absolute) 0.1 x10e3 /uL 0.0-0. 2 Not Available [facility] ([facility]) [address] [facility], [place], [address], 06/12/2022 06:35:41 06/11/19 23 06/12/2022 CBC WITH DIFFE RENTI AL/PL ATELE T immature granulocytes 1 % not estab. Not Available [facility] ([facility]) [address] [facility], [place], [address], 06/12/2022 06:35:41 06/11/19 23 06/12/2022 CBC WITH DIFFE RENTI AL/PL ATELE T immature grans (abs) 0.1 x10e3 /uL 0.0-0. 1 Not Available [facility] ([facility]) [address] [facility], [place], [address], 06/12/2022 06:35:41 06/11/19 23 06/12/2022 CBC WITH DIFFE RENTI AL/PL ATELE T NRBC AIRPLANE NAVIGATOR Not Available [facility] ([facility]) [address] [facility], [place], [address], 06/12/2022 06:35:41 06/11/19 23 06/12/2022 CBC WITH DIFFE RENTI AL/PL ATELE T hematology comments: AIRPLANE NAVIGATOR Not Available [facility] ([facility]) [address] [facility] [place], [address], 06/12/2022 06:35:41 06/11/19 23 06/12/2022 COMP. METAB OLIC PANEL (14) glucose 105 mg/dL 70-99 above high normal Not Available [facility] ([facility]) [address] [facility] [place], [address], 06/12/2022 09:36:03 06/11/19 23 06/12/2022 COMP. METAB OLIC PANEL (14) BUN 10 mg/dL 6-20 Not Available [facility] ([facility]) [address] [facility] [place], [address], 06/12/2022 09:36:03 06/11/19 23 06/12/2022 COMP. METAB OLIC PANEL (14) creatinine 0.88 mg/dL 0.76-1 .27 Not Available [facility] ([facility]) [address] [facility] [place], [address], 06/12/2022 09:36:03 06/11/19 23 06/12/2022 COMP. METAB OLIC PANEL (14) eGFR 116 mL/mi n/1.7 3 >59 Not Available [facility] ([facility]) [address] [facility] [place], [address], 06/12/2022 09:36:03 06/11/19 23 06/12/2022 COMP. METAB OLIC PANEL (14) BUN/creatini ne ratio 11 9-20 Not Available [facility] ([facility]) [address] [facility] [place], [address], 06/12/2022 09:36:03 06/11/19 23 06/12/2022 COMP. METAB OLIC PANEL (14) sodium 142 mmol/ L 134-14 4 Not Available [facility] ([facility]) [address] [facility] [place], [address], 06/12/2022 09:36:03 06/11/19 23 06/12/2022 COMP. METAB OLIC PANEL (14) potassium 3.7 mmol/ L 3.5-5. 2 Not Available [facility] ([facility]) [address] [place], [address], 06/12/2022 09:36:03 06/11/19 23 06/12/2022 COMP. METAB OLIC PANEL (14) chloride 100 mmol/ L 96-106 Not Available [facility] ([facility]) [address] [place], [address], 06/12/2022 09:36:03 06/11/19 23 06/12/2022 COMP. METAB OLIC PANEL (14) carbon dioxide, total 20 mmol/ L 20-29 Not Available [facility] ([facility] [address] [place], [address], 06/12/2022 09:36:03 06/11/19 23 06/12/2022 COMP. METAB OLIC PANEL (14) calcium 9.6 mg/dL 8.7-10 .2 Not Available [facility] ([facility]) [address] [facility] [place], [address], 06/12/2022 09:36:03 06/11/19 23 06/12/2022 COMP. METAB OLIC PANEL (14) protein, total 7.5 g/dL 6.0-8. 5 Not Available [facility] ([facility] [address] [place], [address], 06/12/2022 09:36:03 06/11/19 23 06/12/2022 COMP. METAB OLIC PANEL (14) albumin 5.2 g/dL 4.0-5. 0 above high normal Not Available [facility] ([facility]) [address] [facility] [place], [address], 06/12/2022 09:36:03 06/11/19 23 06/12/2022 COMP. METAB OLIC PANEL (14) globulin, total 2.3 g/dL 1.5-4. 5 Not Available [facility] ([facility]) [address] [facility] [place], [address], 06/12/2022 09:36:03 06/11/19 23 06/12/2022 COMP. METAB OLIC PANEL (14) A/G ratio 2.3 1.2-2. 2 above high normal Not Available [facility] ([facility]) [address] [facility] [place], [address], 06/12/2022 09:36:03 06/11/19 23 06/12/2022 COMP. METAB OLIC PANEL (14) bilirubin, total 0.4 mg/dL 0.0-1. 2 Not Available [facility] ([facility]) [address] [facility] [place], [address], 06/12/2022 09:36:03 06/11/19 23 06/12/2022 COMP. METAB OLIC PANEL (14) alkaline phosphatase 75 IU/L 44-121 Not Available [facility] ([facility]) [address] [facility] [place], [address], 06/12/2022 09:36:03 06/11/19 23 06/12/2022 COMP. METAB OLIC PANEL (14) AST (SGOT) 50 IU/L 0-40 above high normal Not Available [facility] ([facility]) [address] [facility] [place], [address], 06/12/2022 09:36:03 06/11/19 23 06/12/2022 COMP. METAB OLIC PANEL (14) ALT (SGPT) 39 IU/L 0-44 Not Available [facility] ([facility]) [address] [facility] [place], [address], 06/12/2022 09:36:03 06/11/19 23 06/12/2022 GGT GGT 51 IU/L 0-65 Not Available [facility] ([facility]) [address] [facility], [place], [address], 06/12/2022 09:36:04 06/11/19 23 06/12/2022 HCV ANTIB ELIJAH RFX TO QUANT PCR HCV Ab <0.1 s/co_ ratio 0.0-0. 9 Not Available [facility] ([facility]) [address] [facility], [place], [address], 06/12/2022 12:35:37 06/11/19 23 06/12/2022 HCV ANTIB ELIJAH RFX TO QUANT PCR interpretati on: Commen t Negat judy Not infec alyson with HCV, unles s recen t infec tion is suspe cted or other evide nce exist s to indic ate HCV infec tion. Not Available [facility] ([facility]) [address] [facility], [place], [address], 06/12/2022 12:35:37 06/11/19 23 06/11/2022 drug scree n, urine AMP negati ve Not Available [address], [address], 06/11/2022 14:29:21 06/11/19 23 06/11/2022 drug scree n, urine BAR negati ve Not Available [address], [address], 06/11/2022 14:29:21 06/11/19 23 06/11/2022 drug scree n, urine BUP negati ve Not Available [address], [address], 06/11/2022 14:29:21 06/11/19 23 06/11/2022 drug scree n, urine BZO positi ve Not Available [address], [address], 06/11/2022 14:29:21 06/11/19 23 06/11/2022 drug scree n, urine YVES negati ve Not Available [address], [address], 06/11/2022 14:29:21 06/11/19 23 06/11/2022 drug scree n, urine MDMA negati ve Not Available [address], [address], 06/11/2022 14:29:21 06/11/19 23 06/11/2022 drug scree n, urine MTD negati ve Not Available [address], [address], 06/11/2022 14:29:21 06/11/19 23 06/11/2022 drug scree n, urine OPI negati ve Not Available [address], [address], 06/11/2022 14:29:21 06/11/19 23 06/11/2022 drug scree n, urine OXY negati ve Not Available [address], [address], 06/11/2022 14:29:21 06/11/19 23 06/11/2022 drug scree n, urine PCP negati ve Not Available [address], [address], 06/11/2022 14:29:21 06/11/19 23 06/11/2022 drug scree n, urine TCA negati ve Not Available [address], [address], 06/11/2022 14:29:21 06/11/19 23 06/11/2022 drug scree n, urine THC positi ve Not Available [address], [address], 06/11/2022 14:29:21 Result Notes None recorded. Problems Name Problem SNOMED Code Status Onset Date Resolution Date Notes Provider Name and Address Organization Details Recorded Time Pancreatitis 85628035 Active 2022 Odilon Michael MD [address] [place] [address], [place], [address] [place] [address] [place] [facility] 3 17:27:29 Chronic anxiety 641414827 Active 2022 Odilon Michael MD [address] [place] [address], [place], [address] [place] [address] [place] [facility] 3 17:27:29 Alcoholism 6977006 Active 2022 Odilon Michael MD [address] [place] [address], [address] [place] [address] 3 17:48:24 Anxiety 33432744 Active 2022 Odilon Michael MD [address] [place] [address], [address] , [place] [facility] 3 17:48:42 Problem Notes None recorded. Medical Equipment None Reported. Allergies Allergen ID Allergen Name Allergen Category Reaction Reaction Severity Criticality Documentation Date Start Date Code Code System Note Provider Name and Address Organization Details Recorded Time 2020 sulfameth oxazole / trimethop rim medicatio n Not available Not available Not available 06/11/2022 20676 RxNorm Odilon Michael MD [address] [place] [address], [address] [place] [address] [place] [facility] 3 13:52:55 Medications Name Sig Start Date Stop Date [...] Updated DateTime 06/11/2022 182.88 cm 25 kg/m2 07767 g 119 mm[Hg] 89 mm[Hg] Odilon Michael MD [address] [place] [address], [address] [place] [address] 14:28:10 Date Recorded Body height Provider Name an d Address Organization Details Last Updated DateTime 06/22/2022 182.88 cm Odilon Michael MD [address] [place] [address] 06/23/2022 15:45:07 Social History Question Answer Notes LastModified by Organizat ion Details LastModified Time Tobacco Smoking Status Current Every Day Smoker Odilon Michael MD [address] [place] [address], [address], [place] [facility] 06/15/2022 17:52:44 What Is Your Level Of Alcohol Consumption? Heavy Information not available 06/15/2022 Are You Currently Employed? Yes Information not available 06/15/2022 Which Illicit Or Recreational Drugs Have You Used? 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 [employer] Information not available 06/15/2022 What Was The [...] Code Diagnosis Note 8355 Odilon Michael MD [address] [place] [address] 06/11/2022 13:45:21 06/11/2022 14:28:25 Alcoholism 5524616 F10.20 History of pancreatitis 0159633517 9107 Z87.19 Tobacco user 779333407 Z 72.0 Hepatitis C screening 41 1933017 Z11.59 Anxiety disorder 1540563 06 F41.9 Follow up with Psychiatri st and Therapist 0330 Odilon Michael MD [facility] [address] [place] [address] [place] [address] 06/22/2022 12:33:29 06/22/2022 13:23:16 Alcoholism 2751016 F10.20 Aspartate aminotransferase serum level above reference range 262373938 R74.01 This may be related to alcoholism [...] ID Guarantor Name 06/11/2022 1 [employer] [id number] Douglas Wright [id number] 26 Douglas Wright 06/22/2022 1 [employer] [id number] Douglas Wright [id number] 26 Douglas Wright Notes Date Note Type [...] his chronic medical conditions, and also attends .See completed alcohol and other drugs of abuse questionnaire completed by patient. Odilon Michael MD [address] [facility], [place], [address], [facility] 06/15/2022 18:03:23 06/22/2022 text/html Mr. Douglas Wright [...] the last visit discussed with patient and jaciel , and printed copies given to him Odilon Michael MD [address] [facility], [place], [address], [facility] 06/23/2022 15:52:23
[2024-09-07 05:29] LABS: Basophils Percent Auto 0.5 % (0.2-1.2); Eosinophils Absolute Auto 0.1 K/mm3 (0-0.3); Eosinophils Percent Auto 1.4 % (0-4.4); Hematocrit 39.5 % (42.0-52.0); Hemoglobin 12.2 g/dL (14.0-18.0); Immature Granulocyte Absolute 0.02 K/mm3 (0.00-0.031); Immature Granulocyte Percent A 0.2 % (0-0.5); Lymphocytes Absolute Auto 2.55 K/mm3 (0.9-3.2); Lymphocytes Percent Auto 28.7 % (18.3-44.2); Mean Corpuscular HGB Conc 30.9 g/dl (32-36); Mean Corpuscular Hemoglobin 28.8 pg (26-34); Mean Corpuscular Volume 93.2 fl (80-100); Mean Platelet Volume 9.5 fl (7.4-10.4); Monocytes Percent Auto 11.3 % (2.6-8.5); Neutrophils Absolute Auto 5.1 K/mm3 (1.3-6.7); Neutrophils Percent Auto 57.9 % (45.5-73.1); Platelet Count Result 381 k/mm3 (150-375); Red Blood Count 4.24 M/mm3 (4.6-6.20); Red Cell Distribution Width 17.2 % (11.5-14.5); White Blood Count 8.9 K/mm3 (4.5-10.0)
[2024-09-07 05:40] LABS: Alanine Aminotransferase 79 U/L (6-50); Albumin Level 5.5 g/dL (3.5-5.1); Alkaline Phosphatase 78 U/L (38-126); Anion Gap 27 mmol/L (4-12); Aspartate Amino Transferase 301 U/L (17-59); Bilirubin,Total 0.7 mg/dL (0.2-1.3); Blood Urea Nitrogen 20 mg/dL (9-20); Calcium 10.2 mg/dL (8.4-10.2); Carbon Dioxide 22 mmol/L (22-30); Chloride 88 mmol/L (98-107); Estimated CRCL calculation 89 ml/min; Estimated Glomerular Filt Rate > 60; Ethanol 207 mg/dL (<10); Glucose 106 mg/dL (65-110); Potassium 5.4 mmol/L (3.4-5.0); Sodium 137 mmol/L (137-145)
[2024-09-07 05:47] LABS: Amphetamine Screen Urine Negative (Negative); Barbiturate Screen Urine Negative (Negative); Benzodiazepines Screen Urine Positive (Negative); Cannabinoid Screen Urine Negative (Negative); Cocaine Screen Urine Negative (Negative); Methadone Screen Urine Negative (Negative); Opiate Screen Urine Negative (Negative); Phencyclidine Screen Urine Negative (Negative)
[2024-09-07 05:52] LABS: NT Pro B Type Natriuretic Pept 250 pg/mL (19.9-100)
--- NOTE | 2024-09-07 06:07 | ECG_ITS ---
Test Date: 2024-09-07 04:59:59 Measurements Intervals Mos[place] Rate: 107 P: 11 AK: 132 QRS: 25 QRSD: 96 T: 57 QT: 363 QTc: 485 Interpretive Statements SINUS TACHYCARDIA POSSIBLE RIGHT VENTRICULAR CONDUCTION DELAY [RSR (QR) IN V1/V2] Compared to ECG 08/29/2024 06:23:45 NO SIGNIFICANT CHANGES Electronically Signed On 09-07-2024 14:26:58 CDT by Radha Waller M.D.
[2024-09-07] MEDS: LACTATED RINGERS 1,000 ML 999 ML IV CONT (06:08)
[2024-09-07] MEDS: PHENobarbitaL sodium (*CRX) 65 MG/ML VIAL 260 MG IV PUSH (06:09)
[2024-09-07] MEDS: SODIUM CHLORIDE 0.9% IV 100 ML 200 ML (06:11)
--- NOTE | 2024-09-07 07:15 | PC.NURSE ---
Dr. Mcnair aware pt blood pressure 82/63.
--- NOTE | 2024-09-07 08:05 | PC.NURSE ---
Pt states he is feeling sick. Pt states he feesl like he could throw up. EDP made aware. EDP verbal order for zofran 4mg IVP.
[2024-09-07] MEDS: ONDANSETRON INJ 4 MG/2 ML VIAL IV PUSH ×2 (08:13→12:12)
--- NOTE | 2024-09-07 08:18 | PC.NURSE ---
Pt requesting medication for DELUNA. Pt currently rates pain 01/12. Dr. Mcnair made aware. Verbal order for tylenol 1000mg PO to be given.
[2024-09-07] MEDS: ACETAMINOPHEN 500 MG TABLET 1000 MG PO (08:23)
[2024-09-07] MEDS: LORazepam INJ (*CRX) 2 MG/ML VIAL 1 MG IV PUSH (09:35)
== END 2024-09-07 12:31 | disposition home or self-care (01) ==
PROVIDERS: Emergency Medicine; Emergency Provider Emergency Medicine
DX: F10.129 Alcohol abuse with intoxication, unspecified (principal); Y90.7 Blood alcohol level of 200-239 mg/100 ml; F17.210 Nicotine dependence, cigarettes, uncomplicated; E11.9 Type 2 diabetes mellitus without complications; Z79.4 Long term (current) use of insulin; F41.9 Anxiety disorder, unspecified; K76.0 Fatty (change of) liver, not elsewhere classified
CPT/HCPCS: 36415; 70450; 71045; 80053; 80307; 82077; 83880; 85025; 93005; 96361; 96374; 96375; 96376; 99284; A9270; J2060; J2405; J2560; J7120

== ENCOUNTER 2024-09-08 00:48 | Inpatient (IN) | payer BC, SELFPAY ==
[2024-09-08] VITALS (14 sets, daily range): BP systolic 92–114; BP diastolic 70–89; PULSE 87–103; RESP 14–23; TEMP 36.2–37.1; O2SAT 95–100; BMI 17.4
--- NOTE | ~2024-09-08 | XR_ITS ---
Portable chest x-ray Comparison: 09/07/2024 Clinical History: Seizure Findings: Lungs are clear, without focal consolidation or pleural effusion. Cardiomediastinal silho uette is stable. Bones and soft tissues are unremarkable. Impression: Normal chest. Reviewed, dictated and finalized at [facility]. Impression: Normal chest.
--- OUTSIDE RECORDS SUMMARY | 2024-09-08 01:31 | XMS_ITS | Clinical Summary ---
Author Organization [facility] [address] Address [address] [place] [address] Care Team Providers Care Education Research Analyst Name Role Phone Michael, Pelon Piedra MD Primary Care Provi panda Erich Infante MD Unavailable [phone] Simran Pruett Unavailable Unavailable Allergies Active Allergy [...] Care Team Description 08/23/2024 SHOP/CHAP Initial Outreach [facility] OP CASE MANAGEMENT [address] [place] [address] Angelic Melton, RN 08/23/2024 SHOP/CHAP Initial Eligibility Review [facility] OP CASE MANAGEMENT [address] [place] [address] Angelic Melton, RN 08/16/2024 [facility] CHW Eligibility Review [facility] Community Health Worker [address] [place] [address] [address] [place] [address] Lindsey Jiang 08/15/2024 6:09 AM CDT - 08/21/2024 2:06 PM CDT Hospital Encounter [facility] 1 [place] [address] Wenceslao Reina MD Freer, MD Aubrey Alfonso Lyndon K., MD Cardiogenic shock (HCC) (Primary Dx) Discharge Disposition: Discharge to home or self care 08/13/[address] [facility] Transplant Heart [address] [address] Mailstop 9029-416 [place] [address] Ginette Chavez RN 08/11/2024 Telephone [facility] Transplant Heart [address] Mail[address] 9029-396 [place] [address] Reena Ames 08/10/2024 Telephone [facility] Medical Group Cardiology [address] [facility] [address], [place] [address] Tony Mcelroy MD critical postassium level 08/06/2024 Telephone [facility] Medical [facility] Cardiology [address] [facility] [address] [place] [phone] Tony Mcelroy MD 08/05/2024 Orders Only [facility] Medical [facility] Cardiology [address] [facility] [address] [place] [phone] Kelly Friend NP 08/03/2024 Orders Only [facility] Cardiology [address] [place] [phone] Wilbert Humphreys MD 07/27/2024 9:45 AM CDT Office Visit [facility] Cardiology [facility] Medical Office Building [address] [place] [phone] Erich Infante MD Chronic combined systolic and diastolic congestive heart failure (HCC) (Primary Dx); Receiving inotropic medication; Alcoholic cardiomyopathy (HCC); Alcohol intoxication in active alcoholic; Marijuana use; High risk medication use 07/27/[address] [facility] Trans[facility] Heart [address] Mailop [phone] [place] [address] Ginette Chavez, MADHURI 07/22/2024 Telephone [facility] Transplant Heart [address] [place] [address] [address] Mailstop 9029-657 [place] [address] Reena Ames 07/15/2024 Telephone [facility] Home Care Services [address] [place] [address] Unknown, Notinfile 06/24/2024 Results Follow-Up [facility] [address] [facility] [place] [phone] Erich Infante MD 06/24/[address] [facility] Cardiology [address] [facility] [address] [place] [address] [place] [address] Erich Infante MD 06/23/2024 10:00 AM ELIGIBILITY SUPERVISOR Office Visit [facility] Cardiology [address] [facility] Office Building [address] [place] [address] Lurdes Chiang NP Chronic systolic heart failure (HCC) (Primary Dx) 06/23/2024 8:30 AM ELIGIBILITY SUPERVISOR Ancillary Procedure [facility] [address] [place] [address] [address] [place] [phone] Chronic combined systolic and diastolic congestive heart failure (HCC) 06/23/[address] [facility] Trans[facility] Heart [address] [facility] [address] Mailstop [phone] [place] [address] Royal Lozada 06/23/2024 Telephone [facility] Transplant Heart [address] [facility] [address] Mailstop [phone] [place] [address] John Teixeira RN 06/23/[address] [facility] Cardiology [address] [place] [address] Office Building [address] [place] [address] Lurdes Chiang NP from Last [...] Tobacco: Former Tobacco Cessation:Counseling Given: Not Answered [facility] Utilities Answer Date Recorded In the past 12 months has e Web[employer], [employer], oil, or water REach threatened to shut off services in your [...] often do you attend chur ch or denominational services? Never 08/19/2024 Do you belong to any clubs o r organizations such as episcopal groups, unions, fraternal or athletic groups, or [...] were you homeless or living in a usp (including now)? No 08/19/2024 Personal Safety Answer Date Recorded Have you ever been in or are you currently in a harmful physical or emotional relationship or is someone making you feel afraid or unsafe? Patient unable to answer 08/15/2024 Sex and Gender Information Value Date Recorded Sex Assigned at Not on file Legal Sex Male 9:52 PM ELIGIBILITY SUPERVISOR Gender Identity Not on file Sexual [...] DEVICE Routine 08/15/2024 1 0:51 AM CDT [place] INS[facility] NON-TUNNELED CENTRAL VENOUS CATH AGE 5 YR/> Routine 08/15/2024 9:58 AM CDT Cardiogenic shock (HCC) POC BLOOD GAS AND CHEMISTRIES, ARTERIAL Routine 08/15/2024 9:57 AM CDT URINALYSIS, MICROSCOPIC ONLY Routine 08/15/2024 9:56 AM CDT URINALYSIS AND REFLEX TO MICROSCOPIC AND CULTURE Routine 08/15/2024 9:56 AM CDT [place] ARTL CATHJ/CANNULJ MNTR/TRANSFUSION SPX PRQ Routine 08/15/2024 [...] DOPPLER/CF W CONTRAST Routine 06/23/2024 9:34 AM ELIGIBILITY SUPERVISOR Chronic combined systolic and diastolic congestive heart failure (HCC) POCT LIPID PANEL Routine 04/16/2024 3:29 PM ELIGIBILITY SUPERVISOR Chronic systolic congestive heart failure (HCC) from Last 3 Months or Most Recently Relevant to Health Maintenance Results * (ABNORMAL) POCT glucose (08/21/2024 8:12 AM CDT) Glucose, POC 264(H) 70 - 199 mg/dL Blood 08/21/2024 8:12 AM CDT 08/21/2024 8:12 AM CDT us Jesse Burgos MD LAB POCT ORDERABLES - DEVICE Fi nal Result [facility] [place] [address] * eGFR (08/21/2024 5:01 AM CDT) eGFR [...] ORDERABLES Final Resu lt Performing Organization Address City/[facility]/ZIP Co de Phone Number [facility] [place] [address] * Phosphorus (08/21/2024 5:01 AM CDT) Pathologist [facility] Phosphorus, pl 3.4 2.3 - 4.5 mg/dL Blood 08/21/2024 5:01 AM CDT 08/21/2024 6:09 AM CDT Jesse Burgos MD LAB BLOOD ORDERABLES Final Resu lt Performing Organization Address [facility] de Phone Number [facility] [place] [employer] [place] [address] * (ABNORMAL) Basic metabolic panel (08/21/2024 5:01 AM CDT) Sodium 138 135 - 145 mmol/L Potassium, pl 4.4 3.3 - 4.9 mmol/L [facility] Chloride 95(L) 97 - 110 mmol/L [facility] CO2 33(H) 22 - 32 mmol/L [facility] Anion gap 10 2 - 15 mmol/L [facility] BUN 25 6 - 25 mg/dL [facility] Creatinine 0.74(L) 0.80 - 1.30 mg/dL [facility] Glucose 233(H) 70 - 199 mg/dL [facility] Comment: Interpretive Data Fasting glucose >/= 126 [...] 2022. Calcium 10.0 8.5 - 10.3 mg/dL [facility] Blood 08/21/2024 5:01 AM CDT 08/21/2024 6:09 AM CDT Jesse Burgos MD LAB BLOOD ORDERABLES Final Resu lt Performing Organization Address [facility] Co de Phone Number [facility] [employer] [place] [address] * POCT glucose (08/20/2024 8:03 PM CDT) Glucose, POC 83 70 - 199 mg/dL Blood 08/20/2024 8:03 PM CDT 08/20/2024 8:03 PM CDT Jesse Burgos MD LAB POCT ORDERABLES - DEVICE Fi nal Result Performing Organization Address [facility] Co de Phone Number [facility] Department [place] [employer] [place] [address] * POCT glucose (08/20/2024 4:52 PM CDT) Glucose, POC 154 70 - 199 mg/dL Blood 08/20/2024 4:52 PM CDT 08/20/2024 4:52 PM CDT Jesse Burgos MD LAB POCT ORDERABLES - DEVICE Fi nal Result Performing Organization Address [facility] Co de Phone Number [facility] [employer] [place] [address] * (ABNORMAL) POCT glucose (08/20/2024 12:27 PM CDT) Glucose, POC 210(H) 70 - 199 mg/dL Blood 08/20/2024 12:2 7 PM CDT 08/20/2024 12:27 PM CDT Jesse Burgos MD LAB POCT ORDERABLES - DEVICE Fi nal Result Performing Organization Address City/[facility] Co de Phone Number [facility] Department [place] [address] * POCT glucose (08/20/2024 8:27 AM CDT) Glucose, POC 95 70 - 199 mg/dL Blood 08/20/2024 8:27 AM CDT 08/20/2024 8:27 AM CDT Jesse Burgos MD LAB POCT ORDERABLES - DEVICE Fi nal Result Performing Organization Address [facility] de Phone Number [facility] [employer] [place] [address] * eGFR (08/20/2024 4:05 AM CDT) eGFR [...] ORDERABLES Final Resu lt Performing Organization Address City/[facility]/ZIP Co de Phone Number [facility] Department [place] [employer] [address] * Phosphorus (08/20/2024 4:05 AM CDT) Phosphorus, pl 4.4 2.3 - 4.5 mg/dL Blood 08/20/2024 4:05 AM CDT 08/20/2024 4:49 AM CDT Jesse Burgos MD LAB BLOOD ORDERABLES Final Resu lt Performing Organization Address [facility] de Phone Number [facility] [employer] [place] [address] * (ABNORMAL) Basic metabolic panel (08/20/2024 4:05 AM CDT) Sodium 139 135 - 145 mmol/L Potassium, pl 4.3 3.3 - 4.9 mmol/L [facility] Chloride 96(L) 97 - 110 mmol/L [facility] CO2 36(H) 22 - 32 mmol/L [facility] Anion gap 7 2 - 15 mmol/L [facility] BUN 22 6 - 25 mg/dL [facility] Creatinine 0.67(L) 0.80 - 1.30 mg/dL [facility] Glucose 115 70 - 199 mg/dL [facility] Comment: Interpretive Data Fasting glucose >/= 126 [...] 2022. Calcium 10.0 8.5 - 10.3 mg/dL [facility] Blood 08/20/2024 4:05 AM CDT 08/20/2024 4:49 AM CDT Jesse Burgos MD LAB BLOOD ORDERABLES Final Resu lt Performing Organization Address City/[facility] Co de Phone Number [facility] [employer] [place] [address] * POCT glucose (08/19/2024 7:41 PM CDT) Glucose, POC 146 70 - 199 mg/dL Blood 08/19/2024 7:41 PM CDT 08/19/2024 7:41 PM CDT Jesse Burgos MD LAB POCT ORDERABLES - DEVICE Fi nal Result Performing Organization Address [facility] Co de Phone Number [facility] Department [place] [employer] [place] [address] * POCT glucose (08/19/2024 5:27 PM CDT) Glucose, POC 175 70 - 199 mg/dL Blood 08/19/2024 5:27 PM CDT 08/19/2024 5:27 PM CDT Jesse Burgos MD LAB POCT ORDERABLES - DEVICE Fi nal Result Performing Organization Address City/[facility] Co de Phone Number [facility] [employer] [place] [address] * POCT glucose (08/19/2024 3:56 PM CDT) Glucose, POC 92 70 - 199 mg/dL Blood 08/19/2024 3:56 PM CDT 08/19/2024 3:56 PM CDT Jesse Burgos MD LAB POCT ORDERABLES - DEVICE Fi nal Result Performing Organization Address [facility] Co de Phone Number [facility] [employer] [place] [address] * POCT glucose (08/19/2024 11:47 AM CDT) Glucose, POC 162 70 - 199 mg/dL Blood 08/19/2024 11:4 7 AM CDT 08/19/2024 11:47 AM CDT Jesse Burgos MD LAB POCT ORDERABLES - DEVICE Fi nal Result Performing Organization Address [facility] Co de Phone Number [facility] [employer] [place] [address] * POCT glucose (08/19/2024 8:13 AM CDT) Glucose, POC 114 70 - 199 mg/dL Blood 08/19/2024 8:13 AM CDT 08/19/2024 8:13 AM CDT Jesse Burgos MD LAB POCT ORDERABLES - DEVICE Fi nal Result Performing Organization Address City/[facility] Co de Phone Number [facility] [employer] [place] [address] * POCT glucose (08/19/2024 5:31 AM CDT) Glucose, POC 121 70 - 199 mg/dL Blood 08/19/2024 5:31 AM CDT 08/19/2024 5:31 AM CDT us Jesse Burgos MD LAB POCT ORDERABLES - DEVICE Fi nal Result Performing Organization Address [facility] de Phone Number [facility] Department [place] [address] * eGFR (08/19/2024 5:25 AM CDT) eGFR [...] ORDERABLES Final Resu lt Performing Organization Address [facility] Co de Phone Number [facility] [place] [address] * (ABNORMAL) Basic metabolic panel (08/19/2024 5:25 AM CDT) Sodium 138 135 - 145 mmol/L Potassium, pl 4.3 3.3 - 4.9 mmol/L [facility] Chloride 94(L) 97 - 110 mmol/L [facility] CO2 36(H) 22 - 32 mmol/L [facility] Anion gap 8 2 - 15 mmol/L [facility] BUN 24 6 - 25 mg/dL [facility] Creatinine 0.66(L) 0.80 - 1.30 mg/dL [facility] Glucose 104 70 - 199 mg/dL [facility] Comment: Interpretive Data Fasting glucose >/= 126 [...] 2022. Calcium 10.4(H) 8.5 - 10.3 mg/dL [facility] Blood 08/19/2024 5:25 AM CDT 08/19/2024 5:56 AM CDT us Jesse Burgos MD LAB BLOOD ORDERABLES Final Resu lt Performing Organization Address City/[facility]/ZIP Co de Phone Number [facility] Department [place] [employer] [address] * POCT glucose (08/18/2024 8:45 PM CDT) Glucose, POC 127 70 - 199 mg/dL Blood 08/18/2024 8:45 PM CDT 08/18/2024 8:45 PM CDT us Jesse Burgos MD LAB POCT ORDERABLES - DEVICE Fi nal Result Performing Organization Address City/[facility]/ZIP Co de Phone Number [facility] Department [place] [employer] [address] * POCT glucose (08/18/2024 7:52 PM CDT) Glucose, POC 79 70 - 199 mg/dL Blood 08/18/2024 7:52 PM CDT 08/18/2024 7:52 PM CDT Jesse Burgos MD LAB POCT ORDERABLES - DEVICE Fi nal Result Performing Organization Address City/[facility] Co de Phone Number [facility] [employer] [place] [address] * (ABNORMAL) POCT glucose (08/18/2024 7:31 PM CDT) Glucose, POC 42(C) 70 - 199 mg/dL Comment:Glu2: RN/MD Notified Glucose comment 1 Glu2: RN/MD Notified [facility] Blood 08/18/2024 7:31 PM CDT 08/18/2024 7:31 PM CDT Jesse Burgos MD LAB POCT ORDERABLES - DEVICE Fi nal Result Performing Organization Address [facility] Co de Phone Number [facility] [employer] [address] * POCT glucose (08/18/2024 4:42 PM CDT) Glucose, POC 122 70 - 199 mg/dL Blood 08/18/2024 4:42 PM CDT 08/18/2024 4:42 PM CDT Jesse Burgos MD LAB POCT ORDERABLES - DEVICE Fi nal Result Performing Organization Address City/[facility] [place] [address] * (ABNORMAL) POCT glucose (08/18/2024 12:09 PM CDT) Glucose, POC 202(H) 70 - 199 mg/dL Blood 08/18/2024 12:0 9 PM CDT 08/18/2024 12:09 PM CDT Jesse Burgos MD LAB POCT ORDERABLES - DEVICE Fi nal Result Performing Organization Address City/[facility] Co de Phone Number [facility] [place] [address] * POCT glucose (08/18/2024 8:10 AM CDT) Glucose, POC 82 70 - 199 mg/dL Blood 08/18/2024 8:10 AM CDT 08/18/2024 8:10 AM CDT Jesse Burgos MD LAB POCT ORDERABLES - DEVICE Fi nal Result Performing Organization Address [facility] de Phone Number [facility] [place] [address] * eGFR (08/18/2024 6:19 AM CDT) eGFR [...] ORDERABLES Final Resu lt Performing Organization Address City/[facility] Co de Phone Number [facility] Department [place] [employer] [address] * HIV 1/2 Antibody plus p24 Antigen Blood (08/18/2024 6:19 AM CDT) Pathologist [facility] HIV 1/2 ab + p24 ag Nonreactive [...] ORDE RABLES Final Result Performing Organization Address [facility] [place] [address] * Hepatitis C antibody Blood (08/18/2024 6:19 AM CDT) [facility] Hep C Ab Nonreactive Nonreactive Comment:Antibodies to HCV no t detected. Does NOT exclude the possibility of recent exposure to HCV. Current interpretive data was last revised on 22 Blood 08/18/2024 6:19 AM CDT 08/18/2024 6:44 AM CDT Jesse Burgos MD LAB MICROBIOLOGY - GENERAL ORDJoshua BOJORQUEZ Final Result Performing Organization Address [facility] Co de Phone Number [facility] [place] [address] * RPR Blood (08/18/2024 6:19 AM CDT) Pathologist [facility] RPR Nonreactive Nonreactive Blood 08/18/2024 6:19 AM CDT 08/18/2024 6:44 AM CDT us Jesse Burgos MD LAB MICROBIOLOGY - GENERAL ORDE RABLES Final Result Performing Organization Address [facility] de Phone Number [facility] [place] [address] * Hepatitis B Surface Antigen Blood (08/18/2024 6:19 AM CDT) HepBsAg Nonreactive Nonreactive Blood 08/18/2024 6:19 AM CDT 08/18/2024 6:44 AM CDT us Jesse Burgos MD LAB MICROBIOLOGY - GENERAL ORDJoshua BOJORQUEZ Final Result Performing Organization Address [facility] Phone Number [facility] [place] [address] * Phosphorus (08/18/2024 6:19 AM CDT) Pathologist [facility] Phosphorus, pl 2.9 2.3 - 4.5 mg/dL Blood 08/18/2024 6:19 AM CDT 08/18/2024 6:44 AM CDT us Wenceslao Reina MD LAB BLOOD ORDERABLES Final R esult Performing Organization Address [facility] Co de Phone Number [facility] [place] [address] * Creatine kinase (CK), total (08/18/2024 6:19 AM CDT) CK 207 40 - 300 Units/L Blood 08/18/2024 6:19 AM CDT 08/18/2024 6:44 AM CDT us Jesse Burgos MD LAB BLOOD ORDERABLES Final Resu lt [facility] [place] [address] * (ABNORMAL) Basic metabolic panel (08/18/2024 6:19 AM CDT) Sodium 137 135 - 145 mmol/L Potassium, pl 3.9 3.3 - 4.9 mmol/L [facility] Chloride 93(L) 97 - 110 mmol/L [facility] CO2 36(H) 22 - 32 mmol/L [facility] Anion gap 8 2 - 15 mmol/L [facility] BUN 21 6 - 25 mg/dL [facility] Creatinine 0.59(L) 0.80 - 1.30 mg/dL [facility] Glucose 96 70 - 199 mg/dL [facility] Comment: Interpretive Data Fasting glucose >/= 126 [...] 2022. Calcium 9.4 8.5 - 10.3 mg/dL [facility] Blood 08/18/2024 6:19 AM CDT 08/18/2024 6:44 AM CDT us Jesse Burgos MD LAB BLOOD ORDERABLES Final Resu lt Performing Organization Address City/[facility]/ZIP Co de Phone Number [facility] [place] [address] * POCT glucose (08/17/2024 7:55 PM CDT) Glucose, POC 172 70 - 199 mg/dL Blood 08/17/2024 7:55 PM CDT 08/17/2024 7:55 PM CDT Jesse Burgos MD LAB POCT ORDERABLES - DEVICE Fi nal Result Performing Organization Address [facility] de Phone Number [facility] [employer] [address] * POCT glucose (08/17/2024 5:04 PM CDT) Glucose, POC 188 70 - 199 mg/dL Blood 08/17/2024 5:04 PM CDT 08/17/2024 5:04 PM CDT us Jesse Burgos MD LAB POCT ORDERABLES - DEVICE Fi nal Result Performing Organization Address [facility] de Phone Number [facility] [place] [address] * POCT glucose (08/17/2024 11:11 AM CDT) Glucose, POC 163 70 - 199 mg/dL Blood 08/17/2024 11:1 1 AM CDT 08/17/2024 11:11 AM CDT Jesse Burgos MD LAB POCT ORDERABLES - DEVICE Fi nal Result Performing Organization Address [facility] de Phone Number [facility] [employer] [address] * Lactate (08/17/2024 10:58 AM CDT) Lactate 1.6 0.7 - 2.0 mmol/L Blood 08/17/2024 10:5 8 AM CDT 08/17/2024 12:40 PM CDT Jesse Burgos MD LAB BLOOD ORDERABLES Final Resu lt Performing Organization Address [facility] Co de Phone Number [facility] [place] [address] * POCT glucose (08/17/2024 7:38 AM CDT) Glucose, POC 144 70 - 199 mg/dL Blood 08/17/2024 7:38 AM CDT 08/17/2024 7:38 AM CDT us Jesse Burgos MD LAB POCT ORDERABLES - DEVICE Fi nal Result Performing Organization Address [facility] Co de Phone Number [facility] [place] [place] [address] * eGFR (08/17/2024 6:06 AM CDT) eGFR [...] ORDERABLES Chelsea l Result Performing Organization Address [facility]/ZIP Co de Phone Number [facility] [place] [address] * (ABNORMAL) Iron profile w/ IBC (08/17/2024 6:06 AM CDT) [facility] Iron 38(L) 50 - 150 mcg/dL TIBC 200(L) 250 - 400 mcg/dL [facility] Transferrin saturation 19(L) 20 - 50 % [facility] Blood 08/17/2024 6:06 AM CDT 08/17/2024 6:49 AM CDT us Isaiah Segura MD LAB BLOOD ORDERABLES Chelsea rainey Result [facility] [place] [address] * (ABNORMAL) CBC without differential (08/17/2024 6:06 AM CDT) [facility] WBC 7.55 3.80 - 9.90 K/cumm Hgb 10.3(L) 13.0 - 17.5 g/dL [facility] Hct 31.9(L) 38.9 - 50.3 % [facility] Plt 150 150 - 400 K/cumm [facility] MPV 9.1 9.1 - 12.3 fL [facility] RBC 3.58(L) 4.30 - 5.80 M/cumm [facility] MCV 89.1 81.3 - 96.4 fL [facility] MCH 28.8 27.1 - 33.3 pg [facility] MCHC 32.3 32.3 - 35.7 g/dL [facility] RDW CV 15.4(H) 11.1 - 14.9 % [facility] RDW SD 50.7(H) 35.7 - 48.1 fL [facility] NRBC abs 0.00 0.00 - 0.01 K/cumm [facility] Blood 08/17/2024 6:06 AM CDT 08/17/2024 6:49 AM CDT Isaiah Segura MD LAB BLOOD ORDERABLES Chelsea l Result Performing Organization Address City/[facility] Co de Phone Number [facility] [employer] [address] * Phosphorus (08/17/2024 6:06 AM CDT) Phosphorus, pl 2.3 2.3 - 4.5 mg/dL Blood 08/17/2024 6:06 AM CDT 08/17/2024 6:49 AM CDT us Wenceslao Reina MD LAB BLOOD ORDERABLES Final R esult Performing Organization Address [facility] de Phone Number [facility] [place] [address] * Magnesium (08/17/2024 6:06 AM CDT) Magnesium 2.1 1.4 - 2.5 mg/dL Blood 08/17/2024 6:06 AM CDT 08/17/2024 6:49 AM CDT us Isaiah Segura MD LAB BLOOD ORDERABLES Chelsea l Result Performing Organization Address [facility] [facility] Co de Phone Number [facility] [place] [address] * Folate (08/17/2024 6:06 AM CDT) Folic acid >20.0 >=5.0 ng/mL Blood 08/17/2024 6:06 AM CDT 08/17/2024 6:49 AM CDT Isaiah Segura MD LAB BLOOD ORDERABLES Chelsea l Result Performing Organization Address City/[facility] Co de Phone Number [facility] Department [place] [address] * Ferritin (08/17/2024 6:06 AM CDT) [facility] Ferritin 234 30 - 400 ng/mL Blood 08/17/2024 6:06 AM CDT 08/17/2024 6:49 AM CDT Isaiah Segura MD LAB BLOOD ORDERABLES Chelsea l Result [facility] [place] [address] * (ABNORMAL) Vitamin B12 (08/17/2024 6:06 AM CDT) [facility] Vitamin B12 1,618(H) 230 - 1,250 pg/mL Blood 08/17/2024 6:06 AM CDT 08/17/2024 6:49 AM CDT Isaiah Segura MD LAB BLOOD ORDERABLES Chelsea l Result Performing Organization Address City/[facility] [place] [address] * (ABNORMAL) Basic metabolic panel (08/17/2024 6:06 AM CDT) [facility] Sodium 135 135 - 145 mmol/L Potassium, pl 3.6 3.3 - 4.9 mmol/L [facility] Chloride 92(L) 97 - 110 mmol/L [facility] CO2 36(H) 22 - 32 mmol/L [facility] Anion gap 7 2 - 15 mmol/L [facility] BUN 14 6 - 25 mg/dL [facility] Creatinine 0.78(L) 0.80 - 1.30 mg/dL [facility] Glucose 124 70 - 199 mg/dL [facility] Comment: Interpretive Data Fasting glucose >/= 126 [...] 2022. Calcium 9.2 8.5 - 10.3 mg/dL [facility] Blood 08/17/2024 6:06 AM CDT 08/17/2024 6:49 AM CDT Isaiah Segura MD LAB BLOOD ORDERABLES Chelsea l Result Performing Organization Address [facility] Co de Phone Number [facility] Department [place] [employer] [place] [address] * POCT glucose (08/16/2024 9:19 PM CDT) Glucose, POC 173 70 - 199 mg/dL Blood 08/16/2024 9:19 PM CDT 08/16/2024 9:19 PM CDT Isaiah Segura MD LAB POCT ORDERABLES - DEV ICE Final Result Performing Organization Address [facility] Co de Phone Number [facility] Department [place] [address] * POCT glucose (08/16/2024 9:10 PM CDT) Glucose, POC 192 70 - 199 mg/dL Blood 08/16/2024 9:10 PM CDT 08/16/2024 9:10 PM CDT Isaiah Segura MD LAB POCT ORDERABLES - DEV ICE Final Result Performing Organization Address [facility] Co de Phone Number [facility] [place] [address] * Lactate (08/16/2024 7:03 PM CDT) Lactate 1.6 0.7 - 2.0 mmol/L Blood 08/16/2024 7:03 PM CDT 08/16/2024 7:17 PM CDT Isaiah Segura MD LAB BLOOD ORDERABLES Chelsea l Result Performing Organization Address City/[facility] Co de Phone Number [facility] [place] [address] * POCT glucose (08/16/2024 5:13 PM CDT) Glucose, POC 125 70 - 199 mg/dL Blood 08/16/2024 5:13 PM CDT 08/16/2024 5:13 PM CDT Isaiah Segura MD LAB POCT ORDERABLES - DEV ICE Final Result Performing Organization Address [facility] de Phone Number [facility] [place] [employer] [place] [address] * Lactate (08/16/2024 4:56 PM CDT) Lactate 1.2 0.7 - 2.0 mmol/L Blood 08/16/2024 4:56 PM CDT 08/16/2024 5:29 PM CDT Isaiah Segura MD LAB BLOOD ORDERABLES Chelsea l Result Performing Organization Address [facility] de Phone Number [facility] [employer] [place] [address] * (ABNORMAL) POCT glucose (08/16/2024 11:23 AM CDT) Glucose, POC 269(H) 70 - 199 mg/dL Blood 08/16/2024 11:2 3 AM CDT 08/16/2024 11:23 AM CDT us Isaiah Segura MD LAB POCT ORDERABLES - DEV ICE Final Result [facility] [place] [address] * TRANSTHORACIC ECHO (TTE) COMPLETE W DOPPLER/CF W CONTRAST (08/16/2024 11:21 AM CDT) Anatomical Region Laterality Modality Ultrasound 08/16/2024 10:0 1 AM CDT Narrative 08/16/2024 11:58 AM CDT [facility] [place] [address] Transthoracic Echocardiographic Report Patient Name: SOPHIA HANNA STEPHEN : 1990 (34y 3m) Gender: M Study Date: 08/16/2024 10:01:37 AM Ht(Inch): 72 Wt(Lb): 138.01 BSA: 1.78 [employer] Application Developer: Patricia Carmichael RDCS Location: [id number] Order Provider: WENCESLAO REINA Heart Rate: 106 [...] Procedure Note Re Bautista MD - 08/16/2024 [facility] [place] [address] Transthoracic Echocardiographic Report Patient Name: SOPHIA HANNA STEPHEN : 1990 (34y 3m) Gender: M Study Date: 08/16/2024 10:01:37 AM Ht(Inch): 72 Wt(Lb): 138.01 BSA: 1.78 [employer] Application Developer: Patricia Carmichael SUNI Location: [id number] Order Provider:WENCESLAO REINA Heart Rate: 106 BMI: [...] LA Length 4C 3.89 cm MV Decel Vtod675.48 msec [ 104.00 - 258.00 ] LA [...] LAB BLOOD ORDERABLES Chelsea l Result [facility] Department [place] [address] * (ABNORMAL) POCT glucose (08/16/2024 9:06 AM CDT) Glucose, POC 287(H) 70 - 199 mg/dL Blood 08/16/2024 9:06 AM CDT 08/16/2024 9:06 AM CDT us Isaiah Segura MD LAB POCT ORDERABLES - DEV ICE Final Result Performing Organization Address [facility] Co de Phone Number [facility] Department [place] [address] * eGFR (08/16/2024 9:01 AM CDT) eGFR [...] ORDERABLES Final R esult Performing Organization Address City/[facility]/ZIP Co de Phone Number [facility] [place] [address] * (ABNORMAL) CBC without differential (08/16/2024 9:01 AM CDT) WBC 10.14(H) 3.80 - 9.90 K/cumm Hgb 11.4(L) 13.0 - 17.5 g/dL [facility] Hct 34.3(L) 38.9 - 50.3 % [facility] Plt 174 150 - 400 K/cumm [facility] MPV 9.6 9.1 - 12.3 fL [facility] RBC 3.92(L) 4.30 - 5.80 M/cumm [facility] MCV 87.5 81.3 - 96.4 fL [facility] MCH 29.1 27.1 - 33.3 pg [facility] MCHC 33.2 32.3 - 35.7 g/dL [facility] RDW CV 15.2(H) 11.1 - 14.9 % [facility] RDW SD 48.6(H) 35.7 - 48.1 fL [facility] NRBC abs 0.00 0.00 - 0.01 K/cumm [facility] Blood 08/16/2024 9:01 AM CDT 08/16/2024 10:05 AM CDT us Wenceslao Reina MD LAB BLOOD ORDERABLES Final R esult [facility] Department [place] [address] * (ABNORMAL) Basic metabolic panel (08/16/2024 9:01 AM CDT) Sodium 130(L) 135 - 145 mmol/L Potassium, pl 3.5 3.3 - 4.9 mmol/L [facility] Chloride 86(L) 97 - 110 mmol/L [facility] CO2 36(H) 22 - 32 mmol/L [facility] Anion gap 8 2 - 15 mmol/L [facility] BUN 8 6 - 25 mg/dL [facility] Creatinine 0.65(L) 0.80 - 1.30 mg/dL [facility] Glucose 189 70 - 199 mg/dL [facility] Comment: Interpretive Data Fasting glucose >/= 126 [...] 2022. Calcium 9.2 8.5 - 10.3 mg/dL [facility] Blood 08/16/2024 9:01 AM CDT 08/16/2024 10:05 AM CDT Wenceslao Reina MD LAB BLOOD ORDERABLES Final R esult Performing Organization Address City/[facility] Co de Phone Number [facility] Department [place] [address] * Calcium, ionized (08/16/2024 5:40 AM CDT) Calcium, Ionized 4.59 4.50 - 5.10 mg/dL Blood 08/16/2024 5:40 AM CDT 08/16/2024 5:56 AM CDT Wenceslao Reina MD LAB BLOOD ORDERABLES Final R esult Performing Organization Address [facility] de Phone Number [facility] Department [place] [address] * (ABNORMAL) Phosphorus (08/16/2024 5:40 AM CDT) Phosphorus, pl 1.3(L) 2.3 - 4.5 mg/dL Blood 08/16/2024 5:40 AM CDT 08/16/2024 5:56 AM CDT Wenceslao Reina MD LAB BLOOD ORDERABLES Final R esult Performing Organization Address [facility] Co de Phone Number [facility] Department [place] [address] * (ABNORMAL) Hepatic function panel (08/16/2024 5:40 AM CDT) [facility] Bilirubin, total 0.5 0.1 - 1.2 mg/dL Bilirubin, direct 0.2 0.1 - 0.3 mg/dL [facility] Protein, pl 6.5 6.5 - 8.5 g/dL [facility] Albumin 4.2 3.5 - 5.0 g/dL [facility] Alk phos 69 40 - 130 Units/L [facility] ALT 52 7 - 55 Units/L [facility] AST 88(H) 10 - 50 Units/L [facility] Blood 08/16/2024 5:40 AM CDT 08/16/2024 5:56 AM CDT us Wenceslao Reina MD LAB BLOOD ORDERABLES Final R esult Performing Organization Address City/[facility]/[place] [address] * POCT glucose (08/16/2024 3:49 AM CDT) [facility] Glucose, POC 179 70 - 199 mg/dL Blood 08/16/2024 3:49 AM CDT 08/16/2024 3:49 AM CDT Wenceslao Reina MD LAB POCT ORDERABLES - DEVICE Final Result Performing Organization Address [facility]/[place] [address] * Oxyhemoglobin, pulmonary artery (08/15/2024 11:30 PM CDT) [facility] Oxyhemoglobin, PA 67.9 % Comment: Interpretive Data No reference range established. Current interpretive data was last revised 2019. Blood 08/15/2024 11:3 0 PM CDT 08/15/2024 11:49 PM CDT us Wenceslao Reina MD LAB BLOOD ORDERABLES Final R esult Performing Organization Address [facility] Co de Phone Number [facility] [place] [address] * (ABNORMAL) Hemoglobin total, pulmonary artery (08/15/2024 11:30 PM CDT) Hemoglobin total, PA 11.6(L) 13.0 - 17.5 g/dL Blood 08/15/2024 11:3 0 PM CDT 08/15/2024 11:49 PM CDT us Wenceslao Reina MD LAB BLOOD ORDERABLES Final R esult Performing Organization Address [facility] de Phone Number [facility] [place] [address] * POCT glucose (08/15/2024 11:30 PM CDT) Glucose, POC 186 70 - 199 mg/dL Blood 08/15/2024 11:3 0 PM CDT 08/15/2024 11:30 PM CDT us Wenceslao Reina MD LAB POCT ORDERABLES - DEVICE Final Result Performing Organization Address [facility] Co de Phone Number [facility] [employer] [place] [address] * Lactate, whole blood (08/15/2024 11:30 PM CDT) Lactate, bld 1.8 0.7 - 2.0 mmol/L Blood 08/15/2024 11:3 0 PM CDT 08/15/2024 11:49 PM CDT Wenceslao Reina MD LAB BLOOD ORDERABLES Final R esult Performing Organization Address [facility] Co de Phone Number [facility] [place] [address] * eGFR (08/15/2024 9:17 PM CDT) eGFR [...] ORDERABLES Final R esult Performing Organization Address [facility] Co de Phone Number [facility] Department [place] [address] * Magnesium (08/15/2024 9:17 PM CDT) Magnesium 2.1 1.4 - 2.5 mg/dL Blood 08/15/2024 9:17 PM CDT 08/15/2024 9:48 PM CDT us Mumtaz Juan MD LAB BLOOD ORDERABLES Fi nal Result Performing Organization Address [facility] Co de Phone Number [facility] Department [place] [address] * (ABNORMAL) Basic metabolic panel (08/15/2024 9:17 PM CDT) Sodium 130(L) 135 - 145 mmol/L Potassium, pl 4.2 3.3 - 4.9 mmol/L [facility] Chloride 87(L) 97 - 110 mmol/L [facility] CO2 34(H) 22 - 32 mmol/L [facility] Anion gap 9 2 - 15 mmol/L [facility] BUN 10 6 - 25 mg/dL [facility] Creatinine 0.77(L) 0.80 - 1.30 mg/dL [facility] Glucose 133 70 - 199 mg/dL [facility] Comment: Interpretive Data Fasting glucose >/= 126 [...] 2022. Calcium 9.7 8.5 - 10.3 mg/dL [facility] Blood 08/15/2024 9:17 PM CDT 08/15/2024 9:48 PM CDT us Wenceslao Reina MD LAB BLOOD ORDERABLES Final R esult [facility] [place] [address] * POCT glucose (08/15/2024 9:16 PM CDT) Glucose, POC 143 70 - 199 mg/dL Blood 08/15/2024 9:16 PM CDT 08/15/2024 9:16 PM CDT us Wenceslao Reina MD LAB POCT ORDERABLES - DEVICE Final Result Performing Organization Address [facility] [place] [address] * POCT glucose (08/15/2024 6:29 PM CDT) Glucose, POC 138 70 - 199 mg/dL Blood 08/15/2024 6:29 PM CDT 08/15/2024 6:29 PM CDT us Wenceslao Reina MD LAB POCT ORDERABLES - DEVICE Final Result Performing Organization Address [facility] de Phone Number [facility] [place] [address] * POCT glucose (08/15/2024 5:17 PM CDT) Glucose, POC 198 70 - 199 mg/dL Blood 08/15/2024 5:17 PM CDT 08/15/2024 5:17 PM CDT us Wenceslao Reina MD LAB POCT ORDERABLES - DEVICE Final Result Performing Organization Address [facility] de Phone Number [facility] Department [place] [address] * POCT glucose (08/15/2024 4:21 PM CDT) Glucose, POC 170 70 - 199 mg/dL Blood 08/15/2024 4:21 PM CDT 08/15/2024 4:21 PM CDT Wenceslao Reina MD LAB POCT ORDERABLES - DEVICE Final Result Performing Organization Address [facility] Co de Phone Number [facility] [place] [address] * Oxyhemoglobin, central venous (08/15/2024 3:22 PM CDT) Oxyhemoglobin, CV 70.4 % Comment: Interpretive Data No reference range established. Current interpretive data was last revised 2019. Blood 08/15/2024 3:22 PM CDT 08/15/2024 3:28 PM CDT us Wenceslao Reina MD LAB BLOOD ORDERABLES Final R esult [facility] [place] [address] * (ABNORMAL) Hemoglobin total, pulmonary artery (08/15/2024 3:22 PM CDT) Pathologist [facility] Hemoglobin total, PA 10.6(L) 13.0 - 17.5 g/dL Blood 08/15/2024 3:22 PM CDT 08/15/2024 3:36 PM CDT us Wenceslao Reina MD LAB BLOOD ORDERABLES Final R esult [facility] [place] [address] * eGFR (08/15/2024 3:22 PM CDT) eGFR [...] LAB BLOOD ORDERABLES Final R esult [facility] [place] [address] * (ABNORMAL) Pro B-type natriuretic peptide (08/15/2024 [...] ORDERABLES Final R esult Performing Organization Address [facility] Co de Phone Number [facility] [employer] [place] [address] * Lactate, whole blood (08/15/2024 3:22 PM CDT) Lactate, bld 1.2 0.7 - 2.0 mmol/L Blood 08/15/2024 3:22 PM CDT 08/15/2024 3:28 PM CDT Wenceslao Reina MD LAB BLOOD ORDERABLES Final R esult Performing Organization Address [facility] Co de Phone Number [facility] [place] [employer] [place] [address] * Phosphorus (08/15/2024 3:22 PM CDT) Pathologist [facility] Phosphorus, pl 3.0 2.3 - 4.5 mg/dL Comment:Reviewed Blood 08/15/2024 3:22 PM CDT 08/15/2024 3:44 PM CDT Wenceslao Reina MD LAB BLOOD ORDERABLES Final R esult Performing Organization Address [facility] Co de Phone Number [facility] [place] [address] * Magnesium (08/15/2024 3:22 PM CDT) Magnesium 2.3 1.4 - 2.5 mg/dL Blood 08/15/2024 3:22 PM CDT 08/15/2024 3:44 PM CDT Wenceslao Reina MD LAB BLOOD ORDERABLES Final R esult Performing Organization Address City/[facility]/ZIP Co de Phone Number [facility] Department [place] [address] * (ABNORMAL) Basic metabolic panel (08/15/2024 3:22 PM CDT) [facility] Sodium 133(L) 135 - 145 mmol/L Potassium, pl 4.1 3.3 - 4.9 mmol/L [facility] Chloride 89(L) 97 - 110 mmol/L [facility] CO2 33(H) 22 - 32 mmol/L [facility] Anion gap 11 2 - 15 mmol/L [facility] BUN 14 6 - 25 mg/dL [facility] Creatinine 0.93 0.80 - 1.30 mg/dL [facility] Glucose 145 70 - 199 mg/dL [facility] Comment: Interpretive Data Fasting glucose >/= 126 [...] 2022. Calcium 10.1 8.5 - 10.3 mg/dL [facility] Blood 08/15/2024 3:22 PM CDT 08/15/2024 3:44 PM CDT Wenceslao Reina MD LAB BLOOD ORDERABLES Final R esult Performing Organization Address City/[facility]/ZIP Co de Phone Number [facility] Department [place] [address] * POCT glucose (08/15/2024 3:20 PM CDT) Glucose, POC 146 70 - 199 mg/dL Blood 08/15/2024 3:20 PM CDT 08/15/2024 3:20 PM CDT Wenceslao Reina MD LAB POCT ORDERABLES - DEVICE Final Result Performing Organization Address [facility] Co de Phone Number [facility] [place] [address] * POCT glucose (08/15/2024 2:40 PM CDT) Glucose, POC 93 70 - 199 mg/dL Blood 08/15/2024 2:40 PM CDT 08/15/2024 2:40 PM CDT us Wenceslao Reina MD LAB POCT ORDERABLES - DEVICE Final Result Performing Organization Address [facility] [place] [address] * XR Chest 1 View (08/15/2024 2:40 PM CDT) Anatomical Region Laterality Modality Body, Chest N/A Computed Radiogr aphy 08/16/2024 9:53 AM CDT Impressions 08/16/2024 9:53 AM CDT 1. No prior examination available for comparison. A right peripherally inserted central venous catheter tip is in the right atrium. [place] catheter tip overlies the main pulmonary artery. There is no pneumonic consolidation or pneumothorax. 2. Comparison is made to prior examination from the same date. The [place] catheter tip is now located in the [...] catheter tip is in the right atrium. [place] catheter tip overlies the main pulmonary artery. There is no pneumonic consolidation or pneumothorax. 2. Comparison is made to prior examination from the same date. The [place] catheter tip is now located in the [...] LAB POCT ORDERABLES - DEVICE Final Result [facility] [place] [address] * (ABNORMAL) Blood gas, arterial (08/15/2024 1:51 PM CDT) pH, Art 7.48(H) 7.35 - 7.45 PCO2, Arterial 47(H) 35 - 45 mmHg [facility] PO2, Arterial 89 83 - 108 mmHg [facility] HCO3 Art (Calculated) 35(H) 20 - 30 mmol/L [facility] BE, art 10 mmol/L [facility] Comment: Interpretive Data No Reference Range Established Current Interpretive Data was last revised on 2017 O2 Sat Art (Measured) 97(H) 90 - 95 % [facility] Blood 08/15/2024 1:51 PM CDT 08/15/2024 1:58 PM CDT us Wenceslao Reina MD LAB BLOOD ORDERABLES Final R esult Performing Organization Address City/[facility]/ZIP Co de Phone Number [facility] Department [place] [employer] [place] [address] * POCT glucose (08/15/2024 1:03 PM CDT) Glucose, POC 124 70 - 199 mg/dL Blood 08/15/2024 1:03 PM CDT 08/15/2024 1:03 PM CDT us Wenceslao Reina MD LAB POCT ORDERABLES - DEVICE Final Result Performing Organization Address [facility] Co de Phone Number [facility] [place] [address] * XR Abdomen Ap 1 Vw (08/15/2024 [...] catheter tip is in the right atrium. [place] catheter tip overlies the main pulmonary artery. There is no pneumonic consolidation or pneumothorax. 2. Comparison is made to prior examination from the same date. The [place] catheter tip is now located in the [...] catheter tip is in the right atrium. [place] catheter tip overlies the main pulmonary artery. There is no pneumonic consolidation or pneumothorax. 2. Comparison is made to prior examination from the same date. The [place] catheter tip is now located in the [...] 2019. Trop I hs delta 54(C) ng/L [facility] Comment:Previous critical va lue noted within 48 hours ago. Trop I hs interp Significa nt(C) [facility] Comment:Previous critical va lue noted within 48 hours ago. Blood 08/15/2024 12:3 2 PM CDT 08/15/2024 12:45 PM CDT Wenceslao Reina MD LAB BLOOD ORDERABLES Final R esult Performing Organization Address City/[facility]/ZIP Co de Phone Number [facility] Department [place] [employer] [place] [address] * Oxyhemoglobin, pulmonary artery (08/15/2024 12:32 PM CDT) Pathologist [facility] Oxyhemoglobin, PA 72.8 % Comment: Interpretive Data No reference range established. Current interpretive data was last revised 2019. Blood 08/15/2024 12:3 2 PM CDT 08/15/2024 12:44 PM CDT Wenceslao Reina MD LAB BLOOD ORDERABLES Final R esult [facility] [employer] [place] [address] * (ABNORMAL) Hemoglobin total, pulmonary artery (08/15/2024 12:32 PM CDT) Hemoglobin total, PA 10.4(L) 13.0 - 17.5 g/dL Blood 08/15/2024 12:3 2 PM CDT 08/15/2024 12:44 PM CDT us Jose J Tolbert MD LAB BLOOD ORDERABLES Final Result Performing Organization Address [facility] Co de Phone Number [facility] [place] [address] * eGFR (08/15/2024 12:32 PM CDT) eGFR [...] ORDERABLES Final R esult Performing Organization Address City/[facility]/ZIP Co de Phone Number [facility] [place] [address] * (ABNORMAL) Calcium, ionized (08/15/2024 12:32 PM CDT) Calcium, Ionized 5.14(H) 4.50 - 5.10 mg/dL Blood 08/15/2024 12:3 2 PM CDT 08/15/2024 12:55 PM CDT Wenceslao Reina MD LAB BLOOD ORDERABLES Final R esult Performing Organization Address [facility] Co de Phone Number [facility] [place] [address] * (ABNORMAL) Phosphorus (08/15/2024 12:32 PM CDT) Pathologist [facility] Phosphorus, pl 0.9(L) 2.3 - 4.5 mg/dL Blood 08/15/2024 12:3 2 PM CDT 08/15/2024 12:45 PM CDT Wenceslao Reina MD LAB BLOOD ORDERABLES Final R esult Performing Organization Address [facility] Co de Phone Number [facility] Department [place] [address] * Magnesium (08/15/2024 12:32 PM CDT) [facility] Magnesium 2.4 1.4 - 2.5 mg/dL Blood 08/15/2024 12:3 2 PM CDT 08/15/2024 12:45 PM CDT Wenceslao Reina MD LAB BLOOD ORDERABLES Final R esult Performing Organization Address [facility] Co de Phone Number [facility] [place] [address] * (ABNORMAL) Basic metabolic panel (08/15/2024 12:32 PM CDT) Pathologist [facility] Sodium 133(L) 135 - 145 mmol/L Potassium, pl 4.2 3.3 - 4.9 mmol/L [facility] Chloride 90(L) 97 - 110 mmol/L [facility] CO2 33(H) 22 - 32 mmol/L [facility] Comment:Reviewed Anion gap 10 2 - 15 mmol/L [facility] Comment:Reviewed BUN 15 6 - 25 mg/dL [facility] Creatinine 0.97 0.80 - 1.30 mg/dL [facility] Glucose 144 70 - 199 mg/dL [facility] Comment: Interpretive Data Fasting glucose >/= 126 [...] 2022. Calcium 10.5(H) 8.5 - 10.3 mg/dL [facility] Blood 08/15/2024 12:3 2 PM CDT 08/15/2024 12:45 PM CDT us Wenceslao Reina MD LAB BLOOD ORDERABLES Final R esult Performing Organization Address City/[facility]/ZIP Co de Phone Number [facility] Department [place] [employer] [place] [address] * POCT glucose (08/15/2024 11:57 AM CDT) Glucose, POC 165 70 - 199 mg/dL Blood 08/15/2024 11:5 7 AM CDT 08/15/2024 11:57 AM CDT us Wenceslao Reina MD LAB POCT ORDERABLES - DEVICE Final Result [facility] [place] [employer] [place] [address] * (ABNORMAL) Troponin I high-sensitivity 4-hour (08/15/2024 10:58 AM CDT) Trop I hs 76(H) <=35 ng/L Comment: Previous critical value noted within 48 hours ago. Interpretive Data For further hscTnI resources including the diagnostic algorithm and an aid in interpretation, copy and paste this link: https://bjhlab.testcatalog.org/show/hsTrop-1 Current Interpretive Data last revised 2019. Trop I hs delta 25(C) ng/L [facility] Comment:Previous critical va lue noted within 48 hours ago. Trop I hs interp Significa nt(C) [facility] Comment:Previous critical va lue noted within 48 hours ago. Blood 08/15/2024 10:5 8 AM CDT 08/15/2024 11:06 AM CDT us Wenceslao Reina MD LAB BLOOD ORDERABLES Final R esult Performing Organization Address [facility] Co de Phone Number [facility] [place] [address] * Oxyhemoglobin, central venous (08/15/2024 10:58 AM CDT) Oxyhemoglobin, CV 71.6 % Comment: Interpretive Data No reference range established. Current interpretive data was last revised 2019. Blood 08/15/2024 10:5 8 AM CDT 08/15/2024 11:06 AM CDT us Wenceslao Reina MD LAB BLOOD ORDERABLES Final R esult Performing Organization Address City/[facility] Co de Phone Number [facility] Department [place] [employer] [place] [address] * (ABNORMAL) Hemoglobin total, pulmonary artery (08/15/2024 10:58 AM CDT) Hemoglobin total, PA 9.8(L) 13.0 - 17.5 g/dL Blood 08/15/2024 10:5 8 AM CDT 08/15/2024 11:06 AM CDT us Wenceslao Reina MD LAB BLOOD ORDERABLES Final R esult Performing Organization Address [facility] Co de Phone Number [facility] [place] [address] * Lactate, whole blood (08/15/2024 10:58 AM CDT) Lactate, bld 1.8 0.7 - 2.0 mmol/L Blood 08/15/2024 10:5 8 AM CDT 08/15/2024 11:06 AM CDT us Wenceslao Reina MD LAB BLOOD ORDERABLES Final R esult Performing Organization Address [facility] Co de Phone Number [facility] [place] [address] * POCT glucose (08/15/2024 10:51 AM CDT) Glucose, POC 165 70 - 199 mg/dL Blood 08/15/2024 10:5 1 AM CDT 08/15/2024 10:51 AM CDT us Wenceslao Reina MD LAB POCT ORDERABLES - DEVICE Final Result Performing Organization Address [facility] Co de Phone Number [facility] [place] [address] * [place] INSJ NON-TUNNELED CENTRAL VENOUS CATH AGE 5 YR/> (08/15/2024 9:58 AM CDT) Narrative Wenceslao Reina MD - 08/15/2024 9:58 AM CDT Wenceslao Reina MD 08/15/2024 3:12 PM Central Line Insertion- SGC Date/Time: 08/15/2024 9:58 AM Performed by: Ngozi Tamez MD Authorized by: Wenceslao Reina MD [place] Protocol: RN Notified of Procedure: yes Patient [...] Ultrasound guidance: Real-time needle guidance Procedural supplies: [facility]. Needle inserted, vein idenitified then guidewire inserted easily into vein: Yes Successful placement: Yes Patient tolerance: Patient tolerated the procedure well with no immediate complications us Wenceslao Reina MD IN CLINIC/BEDSIDE ORDERABLES Final Result * (ABNORMAL) POC Blood Gas and Chemistries, Arterial - (08/15/2024 9:57 AM CDT) pH, Art POC 7.36 7.35 - 7.45 pCO2, Art POC 25(L) 35 - 45 mmHg [facility] pO2, Art POC 83 83 - 108 mmHg [facility] Na, POC 130(L) 135 - 145 mmol/L [facility] K POC 4.6 3.3 - 4.9 mmol/L [facility] Comment: Interpretive Data Not all point of care methods assess for hemolysis. Confirm with instrument and retest K+ if not consistent with clinical signs and symptoms. Current Interpretive Data was last revised on 2023. Cl, POC 93(L) 97 - 110 mmol/L [facility] Ionized Ca, POC 6.02(H) 4.50 - 5.10 mg/dL [facility] Glucose, POC 253(H) 70 - 199 mg/dL [facility] Lactate, POC 2.4(H) 0.7 - 2.0 mmol/L [facility] SO2 (fabiana) arterial 98(H) 90 - 95 % [facility] Base excess, POC -10.0 mmol/L [facility] HCO3, Art POC 14(L) 20 - 30 mmol/L [facility] Hct, POC 29.0(L) 41.4 - 51.6 % [facility] Total Hb, POC 9.7(L) 13.8 - 17.2 g/dL [facility] Blood 08/15/2024 9:57 AM CDT 08/15/2024 9:57 AM CDT Wenceslao Reina MD LAB POCT ORDERABLES - DEVICE Final Result Performing Organization Address [facility]/ZIP Co de Phone Number [facility] [place] [address] * (ABNORMAL) Urinalysis reflex to microscopic and culture Urine (08/15/2024 9:56 AM CDT) Color, ur Straw Yellow Clarity, ur Clear Clear [facility] Specific gravity, ur 1.008 1.003 - 1.030 [facility] pH, urine 6.0 [facility] Comment: Interpretive Data U rine pH is affected by diet, medications, systemic acid-base disturbances, and renal tubular function. pH may affect urinary stone formation. For example, urine pH below 6.0 may help reduce the tendency for calcium phosphate stones and pH greater than 6.0 may reduce the tendency for uric acid stone formation. Source: [facility] Current Interpretive Data was last revised on 2017 Protein, ur ql Negative Negative [facility] Glucose, ur ql 3+(A) Negative [facility] Ketones, ur 1+(A) Negative [facility] Bilirubin, ur Negative Negative [facility] Blood, ur 2+(A) Negative [facility] Urobilinogen, ur <2.0 <2.0 mg/dL [facility] Nitrite, ur Negative Negative [facility] Leukocyte esterase, ur Negative Negative [facility] UA reflex comment Reflex to microscopic UA will be performed. [facility] Urine 08/15/2024 9:56 AM CDT 08/15/2024 10:15 AM CDT us Wenceslao Reina MD LAB MICROBIOLOGY - GENERAL O RDERABLES Final Result Performing Organization Address City/[facility]/ZIP Co de Phone Number [facility] [place] [address] * (ABNORMAL) Urinalysis, microscopic only (08/15/2024 9:56 AM CDT) WBC, ur 0-5 0 - 5 /HPF RBC, ur 0-2 0 - 2 /HPF [facility] Epithelial cells, squamous, ur 1-5 0 - 5 /HPF [facility] Bacteria, ur Trace(A) [facility] Mucous, ur Present(A) [facility] Culture Reflex Comment Reflex conditions for urine culture (WBC >10) not met. [facility] Urine 08/15/2024 9:56 AM CDT 08/15/2024 10:15 AM CDT us Wenceslao Reina MD LAB URINE ORDERABLES Final R esult Performing Organization Address City/State/[facility] Co de Phone Number [facility] [place] [address] * [place] ARTL CATHJ/CANNULJ MNTR/TRANSFUSION SPX PRQ (08/15/2024 9:53 AM CDT) Narrative Wenceslao Reina MD - 08/15/2024 9:53 AM CDT Wenceslao Reina MD 08/15/2024 3:12 PM Arterial Line Insertion Date/Time: 08/15/2024 9:53 AM Performed by: Ngozi Tamez MD Authorized by: Wenceslao Reina MD [place] Protocol: RN Notified of Procedure: yes Informed [...] - DEVICE Final Result Performing Organization Address City/[facility] Co de Phone Number [facility] Department [place] [employer] [place] [address] * eGFR (08/15/2024 8:38 AM CDT) eGFR [...] ORDERABLES F inal Result Performing Organization Address City/[facility]/ZIP Co de Phone Number [facility] Department [place] [employer] [place] [address] * Critical Result Callback Chemistry (08/15/2024 8:38 AM CDT) Date Notified 20240815 Time Notified 942 [facility] TestName Anion Gap [facility] Called/Read Back Beth [facility] Credentials RN [facility] Called By [facility] Blood 08/15/2024 8:38 AM CDT 08/15/2024 8:57 AM CDT us Kayleigh Avila MD LAB BLOOD ORDERABLES F inal Result [facility] [place] [address] * (ABNORMAL) Comprehensive metabolic panel (08/15/2024 8:38 AM CDT) Sodium 132(L) 135 - 145 mmol/L Potassium, pl 4.6 3.3 - 4.9 mmol/L [facility] Chloride 89(L) 97 - 110 mmol/L [facility] CO2 14(L) 22 - 32 mmol/L [facility] Anion gap 29(C) 2 - 15 mmol/L [facility] Comment:Reviewed BUN 19 6 - 25 mg/dL [facility] Creatinine 1.25 0.80 - 1.30 mg/dL [facility] Glucose 266(H) 70 - 199 mg/dL [facility] Comment: Interpretive Data Fasting glucose >/= 126 [...] 2022. Calcium 10.8(H) 8.5 - 10.3 mg/dL [facility] Comment:Repeated and Verifie d Bilirubin, total 0.4 0.1 - 1.2 mg/dL [facility] Protein, pl 5.8(L) 6.5 - 8.5 g/dL [facility] Albumin 3.8 3.5 - 5.0 g/dL [facility] Alk phos 59 40 - 130 Units/L [facility] ALT 49 7 - 55 Units/L [facility] AST 94(H) 10 - 50 Units/L [facility] Blood 08/15/2024 8:38 AM CDT 08/15/2024 8:57 AM CDT Kayleigh Avila MD LAB BLOOD ORDERABLES F inal Result Performing Organization Address [facility] Co de Phone Number [facility] [place] [address] * (ABNORMAL) Troponin I high-sensitivity 2-hour (08/15/2024 8:29 AM CDT) Trop I hs 66(H) <=35 ng/L Comment: Interpretive Data For further hscTnI resources including the diagnostic algorithm and an aid in interpretation, copy and paste this link: https://bjhlab.testcatalog.org/show/hsTrop-1 Current Interpretive Data last revised 2019. Trop I hs delta 15(C) ng/L [facility] Comment:Reviewed Trop I hs interp Significa nt(C) [facility] Comment:Reviewed Blood 08/15/2024 8:29 AM CDT 08/15/2024 8:57 AM CDT us Wenceslao Reina MD LAB BLOOD ORDERABLES Final R esult Performing Organization Address City/[facility]/ZIP Co de Phone Number [facility] [place] [address] * Oxyhemoglobin, central venous (08/15/2024 8:29 AM CDT) Oxyhemoglobin, CV 75.8 % Comment: Interpretive Data No reference range established. Current interpretive data was last revised 2019. Blood 08/15/2024 8:29 AM CDT 08/15/2024 8:47 AM CDT us Wenceslao Reina MD LAB BLOOD ORDERABLES Final R esult [facility] [place] [address] * Critical result callback Cardio chemistry (08/15/2024 8:29 AM CDT) Date Notified 20240815 Time Notified 09 [facility] Test name Trop I hs 2hr delta [facility] Called/Read Back Beth [facility] Credentials RN [facility] Called By ra [facility] Blood 08/15/2024 8:29 AM CDT 08/15/2024 8:57 AM CDT us Wenceslao Reina MD LAB BLOOD ORDERABLES Final R esult Performing Organization Address City/[facility]/ZIP Co de Phone Number [facility] [place] [address] * Critical Result Callback Chemistry (08/15/2024 8:29 AM CDT) Date Notified 20240815 Time Notified 0858 [facility] TestName Lactate Whole Blood [facility] Called/Read Back Kimmy [facility] Credentials RN [facility] Called By LISA [facility] Blood 08/15/2024 8:29 AM CDT 08/15/2024 8:48 AM CDT us Wenceslao Reina MD LAB BLOOD ORDERABLES Final R esult Performing Organization Address City/[facility]/ZIP Co de Phone Number [facility] [place] [address] * (ABNORMAL) Lactate, whole blood (08/15/2024 8:29 AM CDT) Pathologist [facility] Lactate, bld 4.2(C) 0.7 - 2.0 mmol/L Comment:Reviewed Blood 08/15/2024 8:29 AM CDT 08/15/2024 8:48 AM CDT Wenceslao Reina MD LAB BLOOD ORDERABLES Final R esult Performing Organization Address City/[facility] Co de Phone Number [facility] Department [place] [employer] [place] [place] [address] * (ABNORMAL) Beta-hydroxybutyrate (08/15/2024 7:42 AM CDT) Pathologist [facility] Beta-Hydroxybut yrate 4.2(H) 0.0 - 0.5 mmol/L Blood 08/15/2024 7:42 AM CDT 08/15/2024 7:48 AM CDT Wenceslao Reina MD LAB BLOOD ORDERABLES Final R esult Performing Organization Address City/[facility] Co de Phone Number [facility] [place] [employer] [place] [address] * Blood culture Blood (08/15/2024 7:41 AM CDT) Pathologist [facility] Report Final Report: No growth Blood 08/15/2024 7:41 AM CDT 08/15/2024 8:49 AM CDT Narrative [facility] - 08/19/2024 12:00 PM CDT From a [...] performance characteristics have been verified by the [facility] Microbiology Laboratory. For questions about this culture, contact the Microbiology Laboratory at [phone]. Interpretive data was last revised on 24. Wenceslao Reina MD LAB MICROBIOLOGY - GENERAL O RDERABLES Final Result [facility] [place] [address] * Blood culture Blood (08/15/2024 7:41 AM CDT) Report Final Report: No growth Blood 08/15/2024 7:41 AM CDT 08/15/2024 7:52 AM CDT Narrative [facility] - 08/19/2024 12:00 PM CDT Collection->Peripheral [...] performance characteristics have been verified by the [facility] Microbiology Laboratory. For questions about this culture, contact the Microbiology Laboratory at [phone]. Interpretive data was last revised on 24. us Wenceslao Reina MD LAB MICROBIOLOGY - GENERAL O RDERABLES Final Result [facility] [place] [address] * (ABNORMAL) POC Blood Gas and Chemistries, Arterial - (08/15/2024 7:38 AM CDT) pH, Art POC 7.18(C) 7.35 - 7.45 pCO2, Art POC 26(L) 35 - 45 mmHg [facility] pO2, Art POC 97 83 - 108 mmHg [facility] Na, POC 127(L) 135 - 145 mmol/L [facility] K POC 4.8 3.3 - 4.9 mmol/L [facility] Comment: Interpretive Data Not all point of care methods assess for hemolysis. Confirm with instrument and retest K+ if not consistent with clinical signs and symptoms. Current Interpretive Data was last revised on 2023. Cl, POC 93(L) 97 - 110 mmol/L [facility] Ionized Ca, POC 6.73(H) 4.50 - 5.10 mg/dL [facility] Glucose, POC 301(H) 70 - 199 mg/dL [facility] Lactate, POC 4.2(C) 0.7 - 2.0 mmol/L [facility] SO2 (fabiana) arterial 98(H) 90 - 95 % [facility] Base excess, POC -17.2 mmol/L [facility] HCO3, Art POC 10(C) 20 - 30 mmol/L [facility] Hct, POC 26.0(L) 41.4 - 51.6 % [facility] Total Hb, POC 8.8(L) 13.8 - 17.2 g/dL [facility] Blood 08/15/2024 7:38 AM CDT 08/15/2024 7:38 AM CDT us Wenceslao Reina MD LAB POCT ORDERABLES - DEVICE Final Result Performing Organization Address [facility] Co de Phone Number [facility] [place] [address] * Check Sample (08/15/2024 6:50 AM CDT) ABO Rh A Positive [facility] HCLL OTHER 08/15/2024 6:50 AM CDT 08/15/2024 7:00 AM CDT us Wenceslao Reina MD LAB BLOOD ORDERABLES Final R esult Performing Organization Address [facility] de Phone Number [facility] [place] [address] [facility] * (ABNORMAL) Calcium, ionized (08/15/2024 6:50 AM CDT) Calcium, Ionized 3.68(L) 4.50 - 5.10 mg/dL Blood 08/15/2024 6:50 AM CDT 08/15/2024 6:57 AM CDT us Wenceslao Reina MD LAB BLOOD ORDERABLES Final R esult Performing Organization Address [facility] de Phone Number [facility] [place] [employer] [place] [address] * aPTT (08/15/2024 6:50 AM CDT) aPTT [...] ORDERABLES Final R esult Performing Organization Address [facility] Co de Phone Number [facility] [employer] [place] [address] * Protime-INR (08/15/2024 6:50 AM CDT) PT 10.4 9.7 - 13.0 sec INR 0.96 0.90 - 1.20 [facility] Comment: Interpretive data Oral anticoagulant therapeutic ranges: Venous thromboembolism prophylaxis or treatment: 2.0-3.0 CARDIOLOGY Standard range: 2.0-3.0 High-intensity range: 2.5-3.5 Refer to indication-specific guidelines for appropriate target ranges for prosthetic heart valve replacement. Current interpretive data was last revised on 2019. Blood 08/15/2024 6:50 AM CDT 08/15/2024 6:57 AM CDT Wenceslao Reina MD LAB BLOOD ORDERABLES Final R esult Performing Organization Address [facility] Co de Phone Number [facility] [employer] [place] [address] * Type and screen (08/15/2024 6:29 AM CDT) John, indirect Negative ABO Rh A Positive [facility] Blood 08/15/2024 6:29 AM CDT 08/15/2024 6:44 AM CDT Narrative [facility] - 08/15/2024 7:32 AM CDT Has the patient had Daratumumab or Isatuximab in the past 6 months?->Unknown Wenceslao Reina MD LAB BLOOD BANK TEST ORDERABL ES Final Result Performing Organization Address [facility] Co de Phone Number [facility] [employer] [place] [address] * (ABNORMAL) Troponin I high-sensitivity series (baseline, [...] LAB BLOOD ORDERABLES Final R esult [facility] [place] [address] * eGFR (08/15/2024 6:26 AM CDT) eGFR [...] MD LAB BLOOD ORDERABLES Final R esult [facility] [place] [address] * (ABNORMAL) Differential, auto (08/15/2024 6:26 AM CDT) Neutrophil abs 7.40(H) 1.50 - 6.50 K/cumm Imm gran abs 0.06 0.00 - 0.10 K/cumm [facility] Lymphocyte abs 0.81 0.80 - 3.30 K/cumm [facility] Monocyte abs 1.85(H) 0.20 - 0.80 K/cumm [facility] Eosinophil abs 0.03 0.00 - 0.50 K/cumm [facility] Basophil abs 0.01 0.00 - 0.10 K/cumm [facility] Neutrophil pct 72.8 % [facility] Comment: Interpretive Data Percent cell count reference ranges are not reported, since discordance with absolute values may lead to misinterpretation of CBC data. Current Interpretive Data was last revised on 2017. Imm gran pct 0.6 % [facility] Comment: Interpretive Data Percent cell count reference ranges are not reported, since discordance with absolute values may lead to misinterpretation of CBC data. Current Interpretive Data was last revised on 2017. Lymphocyte pct 8.0 % [facility] Comment: Interpretive Data Percent cell count reference ranges are not reported, since discordance with absolute values may lead to misinterpretation of CBC data. Current Interpretive Data was last revised on 2017. Monocyte pct 18.2 % [facility] Comment: Interpretive Data Percent cell count reference ranges are not reported, since discordance with absolute values may lead to misinterpretation of CBC data. Current Interpretive Data was last revised on 2017. Eosinophil pct 0.3 % [facility] Comment: Interpretive Data Percent cell count reference ranges are not reported, since discordance with absolute values may lead to misinterpretation of CBC data. Current Interpretive Data was last revised on 2017. Basophil pct 0.1 % [facility] Comment: Interpretive Data Percent cell count reference ranges are not reported, since discordance with absolute values may lead to misinterpretation of CBC data. Current Interpretive Data was last revised on 2017. Blood 08/15/2024 6:26 AM CDT 08/15/2024 6:49 AM CDT us Wenceslao Reina MD LAB BLOOD ORDERABLES Final R esult Performing Organization Address [facility] Co de Phone Number [facility] Department [place] [address] * Critical Result Callback Chemistry (08/15/2024 6:26 AM CDT) Date Notified 20240815 Time Notified 901 [facility] TestName Calcium, Anion Gap, CO2 Totl [facility] Called/Read Back Wenceslao BOB Credentials MAD[facility] Called By ra [facility] Blood 08/15/2024 6:26 AM CDT 08/15/2024 6:40 AM CDT us Wenceslao Reina MD LAB BLOOD ORDERABLES Final R esult Performing Organization Address [facility] Co de Phone Number [facility] [place] [address] * Critical Result Callback Chemistry (08/15/2024 6:26 AM CDT) Date Notified 20240815 Time Notified 720 [facility] TestName Lactate Whole Blood, pH Robbin, HCO3 Robbin (Calc) [facility] Called/Read Back Hiral Regan Credentials [facility] Called By LISA [facility]OB Blood 08/15/2024 6:26 AM CDT 08/15/2024 6:40 AM CDT us Wenceslao Reina MD LAB BLOOD ORDERABLES Final R esult Performing Organization Address City/[facility] de Phone Number [facility] [place] [address] * (ABNORMAL) CBC with auto differential (08/15/2024 6:26 AM CDT) [facility] WBC 10.16(H) 3.80 - 9.90 K/cumm Hgb 8.5(L) 13.0 - 17.5 g/dL [facility] Hct 26.2(L) 38.9 - 50.3 % [facility] Plt 240 150 - 400 K/cumm [facility] MPV 9.2 9.1 - 12.3 fL [facility] RBC 2.89(L) 4.30 - 5.80 M/cumm [facility] MCV 90.7 81.3 - 96.4 fL [facility] MCH 29.4 27.1 - 33.3 pg [facility] MCHC 32.4 32.3 - 35.7 g/dL [facility] RDW CV 15.4(H) 11.1 - 14.9 % [facility] RDW SD 51.3(H) 35.7 - 48.1 fL [facility] NRBC abs 0.00 0.00 - 0.01 K/cumm [facility] Blood 08/15/2024 6:26 AM CDT 08/15/2024 6:49 AM CDT Wenceslao Reina MD LAB BLOOD ORDERABLES Final R esult Performing Organization Address City/[facility] Co de Phone Number [facility] [place] [address] * (ABNORMAL) Lactate, whole blood (08/15/2024 6:26 AM CDT) [facility] Lactate, bld 4.6(C) 0.7 - 2.0 mmol/L Comment:Repeated and verifie d. Blood 08/15/2024 6:26 AM CDT 08/15/2024 6:40 AM CDT Wenceslao Reina MD LAB BLOOD ORDERABLES Final R esult Performing Organization Address [facility] Co de Phone Number [facility] [place] [address] * (ABNORMAL) TSH (08/15/2024 6:26 AM CDT) Thyroid Stimulating Hormone 0.05(L) 0.30 - 4.20 mcIUnit/mL Blood 08/15/2024 6:26 AM CDT 08/15/2024 6:40 AM CDT Wenceslao Reina MD LAB BLOOD ORDERABLES Final R esult Performing Organization Address [facility] Co de Phone Number [facility] [place] [address] * Phosphorus (08/15/2024 6:26 AM CDT) Phosphorus, pl 2.4 2.3 - 4.5 mg/dL Comment:Repeated and verifie d. Blood 08/15/2024 6:26 AM CDT 08/15/2024 6:40 AM CDT Wenceslao Reina MD LAB BLOOD ORDERABLES Final R esult Performing Organization Address [facility] Co de Phone Number [facility] Department [place] [address] * Magnesium (08/15/2024 6:26 AM CDT) Magnesium 1.7 1.4 - 2.5 mg/dL Comment:Repeated and verifie d. Blood 08/15/2024 6:26 AM CDT 08/15/2024 6:40 AM CDT Wenceslao Reina MD LAB BLOOD ORDERABLES Final R esult Performing Organization Address [facility] Co de Phone Number [facility] [place] [employer] [place] [address] * Lipase (08/15/2024 6:26 AM CDT) Lipase 38 10 - 99 Units/L Blood 08/15/2024 6:26 AM CDT 08/15/2024 6:40 AM CDT Wenceslao Reina MD LAB BLOOD ORDERABLES Final R esult Performing Organization Address [facility] [place] [address] * (ABNORMAL) Hemoglobin A1c (08/15/2024 6:26 AM CDT) [facility] Hgb A1C 5.9(H) 4.0 - 5.6 % Estimated Average Glucose 123 mg/dL [facility] Comment: The ADA recommends reporting an estimated [...] MD LAB BLOOD ORDERABLES Final R formerly [facility] Performing Organization Address [facility] Co de Phone Number [facility] [employer] [place] [address] * (ABNORMAL) Blood gas, venous (08/15/2024 6:26 AM CDT) Pathologist [facility] pH, Venous 7.18(C) 7.32 - 7.43 Comment:Repeated and verifie d. PCO2, Venous 23(L) 40 - 50 mmHg [facility] Comment:Repeated and verifie d. PO2, Venous 63 mmHg [facility] Comment: Repeated and verified. Interpretive Data No Reference Range Established Current Interpretive Data was last revised on 2017. HCO3 Venous, Calculated 9(C) 20 - 30 mmol/L [facility] Comment:Repeated and verifie d. BE, venous -19 mmol/L [facility] Comment: Repeated and verified. Interpretive Data No Reference Range Established Current Interpretive Data was last revised on 2017. Blood 08/15/2024 6:26 AM CDT 08/15/2024 6:40 AM CDT Wenceslao Reina MD LAB BLOOD ORDERABLES Final R ult Performing Organization Address [facility] de Phone Number [facility] Department [place] [address] * (ABNORMAL) Ethanol (08/15/2024 6:26 AM CDT) Pathologist [facility] Ethanol 100(H) <=10 mg/dL Comment: Repeated and verified. Interpretive Data Legal limit of intoxication > or = 80 mg/dL Levels > or = 400 mg/dL are potentially TOXIC. Current interpretive data was last revised on 2018. Blood 08/15/2024 6:26 AM CDT 08/15/2024 6:40 AM CDT Wenceslao Reina MD LAB BLOOD ORDERABLES Final R esult Performing Organization Address [facility] de Phone Number [facility] [place] [address] * (ABNORMAL) Comprehensive metabolic panel (08/15/2024 6:26 AM CDT) Pathologist [facility] Sodium 130(L) 135 - 145 mmol/L Comment:Repeated and verifie d. Potassium, pl 4.9 3.3 - 4.9 mmol/L [facility] Comment:Repeated and verifie d. Chloride 85(L) 97 - 110 mmol/L [facility] Comment:Repeated and verifie d. CO2 10(C) 22 - 32 mmol/L [facility] Comment:Repeated and verifie d. Anion gap 35(C) 2 - 15 mmol/L [facility] Comment:Repeated and verifie d. BUN 19 6 - 25 mg/dL [facility] Comment:Repeated and verifie d. Creatinine 1.35(H) 0.80 - 1.30 mg/dL [facility] Comment:Repeated and verifie d. Glucose 319(H) 70 - 199 mg/dL [facility] Comment: Repeated and verified. Interpretive Data Fasting [...] 2022. Calcium 6.1(C) 8.5 - 10.3 mg/dL [facility] Comment:Repeated and verifie d. Bilirubin, total 0.4 0.1 - 1.2 mg/dL [facility] Comment:Repeated and verifie d. Protein, pl 5.4(L) 6.5 - 8.5 g/dL [facility] Comment:Repeated and verifie d. Albumin 3.6 3.5 - 5.0 g/dL [facility] Comment:Repeated and verifie d. Alk phos 55 40 - 130 Units/L [facility] Comment:Repeated and verifie d. ALT 45 7 - 55 Units/L [facility] Comment:Repeated and verifie d. AST 91(H) 10 - 50 Units/L [facility] Comment:Repeated and verifie d. Blood 08/15/2024 6:26 AM CDT 08/15/2024 6:40 AM CDT Wenceslao Reina MD LAB BLOOD ORDERABLES Final R esult [facility] [place] [address] * (ABNORMAL) POC Blood Gas and Chemistries, Venous - (08/15/2024 6:21 AM CDT) pH, Robbin POC 7.14(C) 7.32 - 7.43 pCO2, robbin POC 24(L) 40 - 50 mmHg [facility] pO2, robbin POC 51 mmHg [facility] Na, POC 126(L) 135 - 145 mmol/L [facility] K POC 5.7(H) 3.3 - 4.9 mmol/L [facility] Comment: Interpretive Data Not all point of care methods assess for hemolysis. Confirm with instrument and retest K+ if not consistent with clinical signs and symptoms. Current Interpretive Data was last revised on 2023. Cl, POC 89(L) 97 - 110 mmol/L [facility] Ionized Ca, POC 3.48(L) 4.50 - 5.10 mg/dL [facility] Glucose, POC 338(H) 70 - 199 mg/dL [facility] Lactate, POC 4.8(C) 0.7 - 2.0 mmol/L [facility] O2 Sat, Robbin POC (Fabiana) 84 % [facility] Base excess, POC -19.2 mmol/L [facility] HCO3, Robbin POC 8(C) 20 - 30 mmol/L [facility] Hct, POC 27.0(L) 41.4 - 51.6 % [facility] Total Hb, POC 8.9(L) 13.8 - 17.2 g/dL [facility] Blood 08/15/2024 6:21 AM CDT 08/15/2024 6:21 AM CDT us Wenceslao Reina MD LAB POCT ORDERABLES - DEVICE Final Result [facility] [place] [address] * Cardiology Document Scan (07/31/2024 4:46 PM [...] >90 EXTERNAL LAB SCRIBED eGFR in NonAfrican [place] >90 >90 EXTERNAL LAB Blood 07/22/2024 2:15 PM CDT Erich Infante MD LAB BLOOD ORDERABLES Fi nal Result EXTERNAL LAB * B-type natriuretic peptide (06/24/2024) SCRIBED BNP 238 <125 pg/mL [facility] Blood 06/24/2024 Erich Infante MD LAB BLOOD ORDERABLES Fi nal Result [facility] * (ABNORMAL) Comprehensive metabolic panel (06/24/2024) SCRIBED Sodium 139 136 - 145 mmol/L [facility] SCRIBED Potassium 3.6 3.5 - 5.1 mmol/L [facility] SCRIBED Chloride 96(A) 100 - 108 mmol/L [facility] SCRIBED Carbon Dioxide 33.3(A) 21 - 32 mmol/L [facility] SCRIBED Anion Gap 9.7 5 - 15 mmol/L [facility] SCRIBED Urea Nitrogen (BUN) 21(A) 7 - 18 mg/dl [facility] SCRIBED Creatinine 0.90 0.7 - 1.3 mg/dl [facility] SCRIBED Glucose 151(A) 70 - 99 mg/dl [facility] Calcium 9.4 8.5 - 10.1 mg/dl [facility] Bilirubin 0.9 0.2 - 1.2 mg/dl [facility] Plasma Protein 6.8 6.4 - 8.2 g/dl [facility] Albumin 4.1 3.4 - 5.0 g/dl [facility] Alkaline Phosphatase 76 50 - 136 Units/L [facility] Alanine Transaminase (ALT) 58 16 - 60 Units/L [facility] Aspartate Transaminase (AST) 78(A) 15 - 37 Units/L [facility] eGFR in NonAfrican [place] >90 >90 [facility] Alb/glob ratio 1.5 1.0 - 2.0 [facility] BUN_Creat Ratio 23.3 6 - 26 [facility] Blood 06/24/2024 us Erich Infante MD LAB BLOOD ORDERABLES Fi nal Result [facility] * TRANSTHORACIC ECHO (TTE) COMPLETE W DOPPLER/CF W CONTRAST (06/23/2024 9:34 AM ELIGIBILITY SUPERVISOR) Anatomical Region Laterality Modality Ultrasound 06/23/2024 8:59 AM ELIGIBILITY SUPERVISOR Narrative 06/23/2024 1:32 PM ELIGIBILITY SUPERVISOR Heart [facility] Cardiac Diagnostic Lab [address], [address] [place] [address] Transthoracic Echocardiographic Report Patient Name: SOPHIA HANNA ST : 1990 (34y 2m) Gender: M Study Date: 06/23/2024 08:59:08 AM Ht(Inch): 72 Wt(Lb): 149.91 BSA: 1.86 [employer] Application Developer: Joanna Mcfarlane RDCS Location: [facility] Order Provider: ERICH INFANTE Heart [...] index. Previously Signed by:Jaciel 06/23/2024 1:31:45 PM ELIGIBILITY SUPERVISOR and Cong Nix M.D. 06/23/2024 1:31:45 PM ELIGIBILITY SUPERVISOR End of Addendum PROCEDURES: Echocardiographic Report: ([id number], [id number]) Transthoracic complete echo with strain imaging and [...] By: Cong Nix M.D. 06/23/2024 1:31:45 PM ELIGIBILITY SUPERVISOR Electronically Signed By: Cong Nix M.D. 06/23/2024 1:31:45 PM ELIGIBILITY SUPERVISOR Electronically Amended By: Cong Nix M.D. 07/20/2024 1:51:15 PM CDT [ADDENDUM] Procedure Note Cong Nix MD - 07/20/2024 [facility] Cardiac Diagnostic Lab [address] , [address] [place] [address] Transthoracic Echocardiographic Report Patient Name: SOPHIA HANNA ST : 1990 (34y 2m) Gender: M Study Date: 06/23/2024 08:59:08 AM Ht(Inch): 72 Wt(Lb): 149.91 BSA: 1.86 [employer] Application Developer: Joanna Mcfarlane RDCS Location: [facility] Order Provider:ERICH INFANTE Heart Rate: [...] index. Previously Signed by:SignedForBoth 06/23/2024 1:31:45 PM ELIGIBILITY SUPERVISOR and Cong Nix M.D. 06/23/2024 1:31:45 PM ELIGIBILITY SUPERVISOR End of Addendum PROCEDURES: Echocardiographic Report: ([id number], [id number]) Transthoracic complete echo withstrain imaging and contrast, [...] LA Length 2C 5.59 cm MV Decel [id number] msec [ 104.00 - 258.00 ] LA [...] By: Cong Nix M.D. 06/23/2024 1:31:45 PM ELIGIBILITY SUPERVISOR Electronically Signed By: Cnog Nix M.D. 06/23/2024 1:31:45 PM ELIGIBILITY SUPERVISOR Electronically Amended By: Cong Nix M.D. 07/20/2024 1:51:15 PM CDT [ADDENDUM] us Erich Infante MD CV ECHO PROCEDURES Edit ed Result - Final * POCT lipid panel (04/16/2024 3:29 PM ELIGIBILITY SUPERVISOR) Cholesterol, POC 170 mg/dL HDL, POC 76 mg/dL Triglycerides, POC 112 mg/dL LDL Cholesterol POC 71 mg/dL Chol/HDL Ratio, POC 2.2 Non-HDL Cholesterol, POC 93 mg/dL Cholesterol Total, POC 170 mg/dL Capillary blood 04/16/2024 3 :29 PM ELIGIBILITY SUPERVISOR us Tony Mcelroy MD POINT OF CARE TEST ORDERABLES Fi nal Result from Last 3 Months or Most Recently Relevant to Health Maintenance Insurance [facility] ACCESS ANTHEM ACCESS ANTHEM ACCESS Advance Directives For more information, please contact: [phone] * Full Code (Latest Code Status on File) Date Activated Date Inactivated Comments 08/15/2024 6:12 AM 08/21/2024 6:17 PM Care Teams Education Research Analyst Relationship Specialty Start Date End Date Pelon Rodriguez MD [address] [place] [place] [address] DR HUANG BRYAN [facility] [address] [place] [address] PCP - General Family Medicine 06/23/24 Erich Infante MD [address] [address] Consulting Physician Cardiology 07/26/24 Simran Pruett Primary Interpreter For The [employer] 07/26/24
--- OUTSIDE RECORDS SUMMARY | 2024-09-08 01:31 | XMS_ITS | Referral Summary ---
Author Organization [facility] [address] Address [address] [place] [address] Care Team Providers Care Scraper Hand Name Role Phone Pelon Rodriguez MD Primary Care Provi panda Erich Infante MD Unavailable [phone] Simran Pruett Unavailable Unavailable Encounters Date Type Department Care Team Description 08/23/2024 SHOP/CHAP Initial Outreach [facility] OP CASE MANAGEMENT [address] [place] [address] Angelic Melton RN 08/23/2024 SHOP/CHAP Initial Eligibility Review [facility] OP CASE MANAGEMENT [address] [place] [address] Angelic Melton RN 08/15/2024 6:09 AM CDT - 08/21/2024 2:06 PM CDT Hospital Encounter [facility] 1 [place] [address] Wenceslao Reina MD Freer, MD Aubrey Alfonso, Jesse Arvizu MD Cardiogenic shock (HCC) (Primary Dx) Discharge Disposition: Discharge to home or self care 08/16/2024 [facility] CHW Eligibility Review [facility] Community Health Worker [address] [place] [address] [address] [place] [address] Lindsey Jiang 08/13/2024 Telephone [facility] Transplant Heart [address] [facility], [facility] Mailstop -[phone] [place] [address] Ginette Chavez RN 08/11/2024 Telephone [facility] Transplant Heart [address] [facility], [facility] Mailstop [phone] [place] [address] Reena Ames 08/10/2024 Telephone [facility] Medical Group Cardiology [address] [facility] [address], [place] [address] Tony Mcelroy MD critical postassium level 08/06/2024 Telephone [facility] Medical [facility] Cardiology [address] [facility] [address] [place] [address] [phone] Tony Mcelroy MD 08/05/2024 Orders Only [facility] Medical [facility] Cardiology [address] [facility] [address] [place] [phone] Kelly Friend NP 08/03/2024 Orders Only [facility] Medical [facility] Cardiology [address] [facility] [address] [place] [phone] Wilbert Humphreys MD 07/27/2024 Telephone [facility] Transplant Heart [address] [facility] Mailop -[phone] [place] [address] Ginette Chavez RN 07/27/2024 9:45 AM CDT Office Visit [facility] Cardiology [facility] [employer] Medical Office Building [address] [place] [address] Erich Infante MD Chronic combined systolic and diastolic congestive heart failure (HCC) (Primary Dx); Receiving inotropic medication; Alcoholic cardiomyopathy (HCC); Alcohol intoxication in active alcoholic; Marijuana use; High risk medication use 07/22/2024 Telephone [facility] Transplant Heart [address] [facility] Mailstop -71-560 [place] [address] Reena Ames 07/15/2024 Telephone [facility] Home Care Services [address] [place] [address] [address] [place] [address] Unknown, Notinfile 06/24/2024 Results Follow-Up [facility] 1 [facility] [place] [address] Erich Infante MD 06/24/2024 Telephone [facility] Cardiology [address] [facility] 8th [place] [address] [place] [phone] Erich Inafnte MD 06/23/2024 Telephone [facility] Transplant Heart [address] [facility] [address] Mailstop [phone] [place] [address] Royal Lozada 06/23/2024 Telephone [facility] Transplant Heart [address] [facility] Mailstop [phone] [place] [address] John Teixeira RN 06/23/2024 10:00 AM BUSINESS BANKING RELATIONSHIP MANAGER Office Visit [facility] Cardiology [address] [place] [address] Office Building [address] [place] [address] Lurdes Chiang NP Chronic systolic heart failure (HCC) (Primary Dx) 06/23/2024 8:30 AM BUSINESS BANKING RELATIONSHIP MANAGER Ancillary Procedure [facility] [place] [address] [place] [address] [address] [place] [address] Chronic combined systolic and diastolic congestive heart failure (HCC) 06/23/2024 Telephone [facility] Cardiology [address] [place] [address] Medical Office Building [address] [place] [address] Lurdes Chiang NP from Last 3 Months [...] Tobacco: Former Tobacco Cessation:Counseling Given: Not Answered [facility] Utilities Answer Date Recorded In the past 12 months has [employer] gas, oil, or water [employer] threatened to shut off services in your [...] often do you attend chur ch or latter-day services? Never 08/19/2024 Do you belong to any clubs o r organizations such as alevism groups, unions, fraternal or athletic groups, or [...] or living in a fpc (including now)? No 08/19/2024 Personal Safety Answer Date Recorded Have you ever been in or are you currently in a harmful physical or emotional relationship or is someone making you feel afraid or unsafe? Patient unable to answer 08/15/2024 Sex and Gender Information Value Date Recorded Sex Assigned at Not on file Legal Sex Male 9:52 PM BUSINESS BANKING RELATIONSHIP MANAGER Gender Identity Not on file Sexual Orientation [...] DEVICE Routine 08/15/2024 1 0:51 AM CDT SD INSJ NON-TUNNELED CENTRAL VENOUS CATH AGE 4 YR/> Routine 08/15/2024 9:58 AM CDT Cardiogenic shock (HCC) POC BLOOD GAS AND CHEMISTRIES, ARTERIAL Routine 08/15/2024 9:57 AM CDT URINALYSIS, MICROSCOPIC ONLY Routine 08/15/2024 9:56 AM CDT URINALYSIS AND REFLEX TO MICROSCOPIC AND CULTURE Routine 08/15/2024 9:56 AM CDT SD ARTL CATHJ/CANNULJ MNTR/TRANSFUSION SPX PRQ Routine 08/15/2024 [...] DOPPLER/CF W CONTRAST Routine 06/23/2024 9:34 AM BUSINESS BANKING RELATIONSHIP MANAGER Chronic combined systolic and diastolic congestive heart failure (HCC) POCT LIPID PANEL Routine 04/16/2024 3:29 PM BUSINESS BANKING RELATIONSHIP MANAGER Chronic systolic congestive heart failure (HCC) from Last 3 Months or Most Recently Relevant to Health Maintenance Results * (ABNORMAL) POCT glucose (08/21/2024 8:12 AM CDT) Glucose, POC 264(H) 70 - 199 mg/dL Blood 08/21/2024 8:12 AM CDT 08/21/2024 8:12 AM CDT us Jesse Burgos MD LAB POCT ORDERABLES - DEVICE Fi nal Result [facility] Department [place] [address] * eGFR (08/21/2024 5:01 AM CDT) eGFR [...] City/[facility]/ZIP Co de Phone Number [facility] [place] [address] * Phosphorus (08/21/2024 5:01 AM CDT) Phosphorus, pl 3.4 2.3 - 4.5 mg/dL Blood 08/21/2024 5:01 AM CDT 08/21/2024 6:09 AM CDT Jesse Burgos MD LAB BLOOD ORDERABLES Final Resu lt Performing Organization Address City/[facility] Co de Phone Number [facility] [place] [address] * (ABNORMAL) Basic metabolic panel (08/21/2024 5:01 AM CDT) Sodium 138 135 - 145 mmol/L Potassium, pl 4.4 3.3 - 4.9 mmol/L [facility] Chloride 95(L) 97 - 110 mmol/L [facility] CO2 33(H) 22 - 32 mmol/L [facility] Anion gap 10 2 - 15 mmol/L [facility] BUN 25 6 - 25 mg/dL [facility] Creatinine 0.74(L) 0.80 - 1.30 mg/dL [facility] Glucose 233(H) 70 - 199 mg/dL [facility] Comment: Interpretive Data Fasting glucose >/= 126 [...] 2022. Calcium 10.0 8.5 - 10.3 mg/dL [facility] Blood 08/21/2024 5:01 AM CDT 08/21/2024 6:09 AM CDT Jesse Burgos MD LAB BLOOD ORDERABLES Final Resu lt Performing Organization Address [facility] Co de Phone Number [facility] [place] [address] * POCT glucose (08/20/2024 8:03 PM CDT) Glucose, POC 83 70 - 199 mg/dL Blood 08/20/2024 8:03 PM CDT 08/20/2024 8:03 PM CDT Jesse Burgos MD LAB POCT ORDERABLES - DEVICE Fi nal Result Performing Organization Address [facility] de Phone Number [facility] [place] [address] * POCT glucose (08/20/2024 4:52 PM CDT) Glucose, POC 154 70 - 199 mg/dL Blood 08/20/2024 4:52 PM CDT 08/20/2024 4:52 PM CDT Jesse Burgos MD LAB POCT ORDERABLES - DEVICE Fi nal Result Performing Organization Address [facility] Co de Phone Number [facility] [place] [address] * (ABNORMAL) POCT glucose (08/20/2024 12:27 PM CDT) Glucose, POC 210(H) 70 - 199 mg/dL Blood 08/20/2024 12:2 7 PM CDT 08/20/2024 12:27 PM CDT Jesse Burgos MD LAB POCT ORDERABLES - DEVICE Fi nal Result Performing Organization Address City/[facility] Co de Phone Number [facility] [place] [address] * POCT glucose (08/20/2024 8:27 AM CDT) Glucose, POC 95 70 - 199 mg/dL Blood 08/20/2024 8:27 AM CDT 08/20/2024 8:27 AM CDT Jesse Burgos MD LAB POCT ORDERABLES - DEVICE Fi nal Result Performing Organization Address [facility] de Phone Number [facility] [place] [address] * eGFR (08/20/2024 4:05 AM CDT) eGFR [...] City/[facility]/ZIP Co de Phone Number [facility] Department [place] [address] * Phosphorus (08/20/2024 4:05 AM CDT) Phosphorus, pl 4.4 2.3 - 4.5 mg/dL Blood 08/20/2024 4:05 AM CDT 08/20/2024 4:49 AM CDT Jesse Burgos MD LAB BLOOD ORDERABLES Final Resu lt Performing Organization Address City/[facility] de Phone Number [facility] [place] [address] * (ABNORMAL) Basic metabolic panel (08/20/2024 4:05 AM CDT) Sodium 139 135 - 145 mmol/L Potassium, pl 4.3 3.3 - 4.9 mmol/L [facility] Chloride 96(L) 97 - 110 mmol/L [facility] CO2 36(H) 22 - 32 mmol/L [facility] Anion gap 7 2 - 15 mmol/L [facility] BUN 22 6 - 25 mg/dL [facility] Creatinine 0.67(L) 0.80 - 1.30 mg/dL [facility] Glucose 115 70 - 199 mg/dL [facility] Comment: Interpretive Data Fasting glucose >/= 126 [...] 2022. Calcium 10.0 8.5 - 10.3 mg/dL [facility] Blood 08/20/2024 4:05 AM CDT 08/20/2024 4:49 AM CDT Jesse Burgos MD LAB BLOOD ORDERABLES Final Resu lt Performing Organization Address [facility] Co de Phone Number [facility] [place] [address] * POCT glucose (08/19/2024 7:41 PM CDT) Glucose, POC 146 70 - 199 mg/dL Blood 08/19/2024 7:41 PM CDT 08/19/2024 7:41 PM CDT Jesse Burgos MD LAB POCT ORDERABLES - DEVICE Fi nal Result Performing Organization Address [facility] Co de Phone Number [facility] [place] [address] * POCT glucose (08/19/2024 5:27 PM CDT) Glucose, POC 175 70 - 199 mg/dL Blood 08/19/2024 5:27 PM CDT 08/19/2024 5:27 PM CDT Jesse Burgos MD LAB POCT ORDERABLES - DEVICE Fi nal Result Performing Organization Address [facility] Co de Phone Number [facility] [place] [address] * POCT glucose (08/19/2024 3:56 PM CDT) Glucose, POC 92 70 - 199 mg/dL Blood 08/19/2024 3:56 PM CDT 08/19/2024 3:56 PM CDT Jesse Burgos MD LAB POCT ORDERABLES - DEVICE Fi nal Result Performing Organization Address [facility] Co de Phone Number [facility] [place] [address] * POCT glucose (08/19/2024 11:47 AM CDT) Glucose, POC 162 70 - 199 mg/dL Blood 08/19/2024 11:4 7 AM CDT 08/19/2024 11:47 AM CDT Jesse Burgos MD LAB POCT ORDERABLES - DEVICE Fi nal Result Performing Organization Address [facility] Co de Phone Number [facility] [place] [address] * POCT glucose (08/19/2024 8:13 AM CDT) Glucose, POC 114 70 - 199 mg/dL Blood 08/19/2024 8:13 AM CDT 08/19/2024 8:13 AM CDT Jesse Burgos MD LAB POCT ORDERABLES - DEVICE Fi nal Result Performing Organization Address City/[facility] Co de Phone Number [facility] [place] [address] * POCT glucose (08/19/2024 5:31 AM CDT) Glucose, POC 121 70 - 199 mg/dL Blood 08/19/2024 5:31 AM CDT 08/19/2024 5:31 AM CDT us Jesse Burgos MD LAB POCT ORDERABLES - DEVICE Fi nal Result Performing Organization Address [facility] Co de Phone Number [facility] Department [place] [address] * eGFR (08/19/2024 5:25 AM CDT) eGFR [...] ORDERABLES Final Resu lt Performing Organization Address [facility]/ZIP Co de Phone Number [facility] Department [place] [address] * (ABNORMAL) Basic metabolic panel (08/19/2024 5:25 AM CDT) Sodium 138 135 - 145 mmol/L Potassium, pl 4.3 3.3 - 4.9 mmol/L [facility] Chloride 94(L) 97 - 110 mmol/L [facility] CO2 36(H) 22 - 32 mmol/L [facility] Anion gap 8 2 - 15 mmol/L [facility] BUN 24 6 - 25 mg/dL [facility] Creatinine 0.66(L) 0.80 - 1.30 mg/dL [facility] Glucose 104 70 - 199 mg/dL [facility] Comment: Interpretive Data Fasting glucose >/= 126 [...] 2022. Calcium 10.4(H) 8.5 - 10.3 mg/dL [facility] Blood 08/19/2024 5:25 AM CDT 08/19/2024 5:56 AM CDT us Jesse Burgos MD LAB BLOOD ORDERABLES Final Resu lt [facility] [place] [address] * POCT glucose (08/18/2024 8:45 PM CDT) Glucose, POC 127 70 - 199 mg/dL Blood 08/18/2024 8:45 PM CDT 08/18/2024 8:45 PM CDT us Jesse Burgos MD LAB POCT ORDERABLES - DEVICE Fi nal Result [facility] [place] [address] * POCT glucose (08/18/2024 7:52 PM CDT) Glucose, POC 79 70 - 199 mg/dL Blood 08/18/2024 7:52 PM CDT 08/18/2024 7:52 PM CDT Jesse Burgos MD LAB POCT ORDERABLES - DEVICE Fi nal Result Performing Organization Address [facility] Co de Phone Number [facility] [place] [address] * (ABNORMAL) POCT glucose (08/18/2024 7:31 PM CDT) Glucose, POC 42(C) 70 - 199 mg/dL Comment:Glu2: RN/MD Notified Glucose comment 1 Glu2: RN/MD Notified [facility] Blood 08/18/2024 7:31 PM CDT 08/18/2024 7:31 PM CDT Jesse Burgos MD LAB POCT ORDERABLES - DEVICE Fi nal Result Performing Organization Address [facility] Co de Phone Number [facility] [place] [address] * POCT glucose (08/18/2024 4:42 PM CDT) Glucose, POC 122 70 - 199 mg/dL Blood 08/18/2024 4:42 PM CDT 08/18/2024 4:42 PM CDT Jesse Burgos MD LAB POCT ORDERABLES - DEVICE Fi nal Result Performing Organization Address [facility] [place] [address] * (ABNORMAL) POCT glucose (08/18/2024 12:09 PM CDT) Glucose, POC 202(H) 70 - 199 mg/dL Blood 08/18/2024 12:0 9 PM CDT 08/18/2024 12:09 PM CDT Jesse Burgos MD LAB POCT ORDERABLES - DEVICE Fi nal Result Performing Organization Address City/[facility] Co de Phone Number [facility] [place] [address] * POCT glucose (08/18/2024 8:10 AM CDT) Glucose, POC 82 70 - 199 mg/dL Blood 08/18/2024 8:10 AM CDT 08/18/2024 8:10 AM CDT Jesse Burgos MD LAB POCT ORDERABLES - DEVICE Fi nal Result Performing Organization Address [facility] de Phone Number [facility] [place] [address] * eGFR (08/18/2024 6:19 AM CDT) eGFR [...] ORDERABLES Final Resu lt Performing Organization Address [facility] Co de Phone Number [facility] [place] [address] * HIV 1/2 Antibody plus p24 Antigen Blood (08/18/2024 6:19 AM CDT) Pathologist [facility] HIV 1/2 ab + p24 ag Nonreactive [...] ORDE RABLES Final Result Performing Organization Address [facility] [place] [address] * Hepatitis C antibody Blood (08/18/2024 6:19 AM CDT) Pathologist [facility] Hep C Ab Nonreactive Nonreactive Comment:Antibodies to HCV no t detected. Does NOT exclude the possibility of recent exposure to HCV. Current interpretive data was last revised on 22 Blood 08/18/2024 6:19 AM CDT 08/18/2024 6:44 AM CDT Jesse Burgos MD LAB MICROBIOLOGY - GENERAL ORDJoshua BOJORQUEZ Final Result Performing Organization Address [facility] Co de Phone Number [facility] [place] [address] * RPR Blood (08/18/2024 6:19 AM CDT) RPR Nonreactive Nonreactive Blood 08/18/2024 6:19 AM CDT 08/18/2024 6:44 AM CDT us Jesse Burgos MD LAB MICROBIOLOGY - GENERAL ORDJoshua RABCRYSTAL Final Result Performing Organization Address [facility] Co de Phone Number [facility] [place] [address] * Hepatitis B Surface Antigen Blood (08/18/2024 6:19 AM CDT) HepBsAg Nonreactive Nonreactive Blood 08/18/2024 6:19 AM CDT 08/18/2024 6:44 AM CDT us Jesse Burgos MD LAB MICROBIOLOGY - GENERAL SHREYA BOJORQUEZ Final Result Performing Organization Address [facility] de Phone Number [facility] [place] [address] * Phosphorus (08/18/2024 6:19 AM CDT) Phosphorus, pl 2.9 2.3 - 4.5 mg/dL Blood 08/18/2024 6:19 AM CDT 08/18/2024 6:44 AM CDT us Wecneslao Reina MD LAB BLOOD ORDERABLES Final R esult Performing Organization Address [facility] Co de Phone Number [facility] [place] [address] * Creatine kinase (CK), total (08/18/2024 6:19 AM CDT) CK 207 40 - 300 Units/L Blood 08/18/2024 6:19 AM CDT 08/18/2024 6:44 AM CDT us Jesse Burgos MD LAB BLOOD ORDERABLES Final Resu lt [facility] Department [place] [address] * (ABNORMAL) Basic metabolic panel (08/18/2024 6:19 AM CDT) Sodium 137 135 - 145 mmol/L Potassium, pl 3.9 3.3 - 4.9 mmol/L [facility] Chloride 93(L) 97 - 110 mmol/L [facility] CO2 36(H) 22 - 32 mmol/L [facility] Anion gap 8 2 - 15 mmol/L [facility] BUN 21 6 - 25 mg/dL [facility] Creatinine 0.59(L) 0.80 - 1.30 mg/dL [facility] Glucose 96 70 - 199 mg/dL [facility] Comment: Interpretive Data Fasting glucose >/= 126 [...] 2022. Calcium 9.4 8.5 - 10.3 mg/dL [facility] Blood 08/18/2024 6:19 AM CDT 08/18/2024 6:44 AM CDT us Jesse Burgos MD LAB BLOOD ORDERABLES Final Resu lt [facility] Department [place] [address] * POCT glucose (08/17/2024 7:55 PM CDT) Glucose, POC 172 70 - 199 mg/dL Blood 08/17/2024 7:55 PM CDT 08/17/2024 7:55 PM CDT Jesse Burgos MD LAB POCT ORDERABLES - DEVICE Fi nal Result Performing Organization Address [facility] de Phone Number [facility] [place] [address] * POCT glucose (08/17/2024 5:04 PM CDT) Glucose, POC 188 70 - 199 mg/dL Blood 08/17/2024 5:04 PM CDT 08/17/2024 5:04 PM CDT us Jesse Burgos MD LAB POCT ORDERABLES - DEVICE Fi nal Result Performing Organization Address [facility] Phone Number [facility] [place] [address] * POCT glucose (08/17/2024 11:11 AM CDT) Glucose, POC 163 70 - 199 mg/dL Blood 08/17/2024 11:1 1 AM CDT 08/17/2024 11:11 AM CDT us Jesse Burgos MD LAB POCT ORDERABLES - DEVICE Fi nal Result Performing Organization Address [facility] de Phone Number [facility] [place] [address] * Lactate (08/17/2024 10:58 AM CDT) Lactate 1.6 0.7 - 2.0 mmol/L Blood 08/17/2024 10:5 8 AM CDT 08/17/2024 12:40 PM CDT Jesse Burgos MD LAB BLOOD ORDERABLES Final Resu lt Performing Organization Address [facility]/ZIP Co de Phone Number [facility] Department [place] [address] * POCT glucose (08/17/2024 7:38 AM CDT) Pathologist [facility] Glucose, POC 144 70 - 199 mg/dL Blood 08/17/2024 7:38 AM CDT 08/17/2024 7:38 AM CDT us Jesse Burgos MD LAB POCT ORDERABLES - DEVICE Fi nal Result Performing Organization Address [facility] de Phone Number [facility] [place] [address] * eGFR (08/17/2024 6:06 AM CDT) [facility] eGFR >90 >=60 mL/min/1. 73 m2 [...] ORDERABLES Chelsea l Result Performing Organization Address [facility] Co de Phone Number [facility] Department [place] [address] * (ABNORMAL) Iron profile w/ IBC (08/17/2024 6:06 AM CDT) [facility] Iron 38(L) 50 - 150 mcg/dL TIBC 200(L) 250 - 400 mcg/dL [facility] Transferrin saturation 19(L) 20 - 50 % [facility] Blood 08/17/2024 6:06 AM CDT 08/17/2024 6:49 AM CDT us Isaiah Segura MD LAB BLOOD ORDERABLES Chelsea rainey Result [facility] [place] [address] * (ABNORMAL) CBC without differential (08/17/2024 6:06 AM CDT) [facility] WBC 7.55 3.80 - 9.90 K/cumm Hgb 10.3(L) 13.0 - 17.5 g/dL [facility] Hct 31.9(L) 38.9 - 50.3 % [facility] Plt 150 150 - 400 K/cumm [facility] MPV 9.1 9.1 - 12.3 fL [facility] RBC 3.58(L) 4.30 - 5.80 M/cumm [facility] MCV 89.1 81.3 - 96.4 fL [facility] MCH 28.8 27.1 - 33.3 pg [facility] MCHC 32.3 32.3 - 35.7 g/dL [facility] RDW CV 15.4(H) 11.1 - 14.9 % [facility] RDW SD 50.7(H) 35.7 - 48.1 fL [facility] NRBC abs 0.00 0.00 - 0.01 K/cumm [facility] Blood 08/17/2024 6:06 AM CDT 08/17/2024 6:49 AM CDT us Isaiah Segura MD LAB BLOOD ORDERABLES Chelsea l Result Performing Organization Address City/[facility]/ZIP Co de Phone Number [facility] [place] [address] * Phosphorus (08/17/2024 6:06 AM CDT) Phosphorus, pl 2.3 2.3 - 4.5 mg/dL Blood 08/17/2024 6:06 AM CDT 08/17/2024 6:49 AM CDT us Wenceslao Reina MD LAB BLOOD ORDERABLES Final R esult Performing Organization Address [facility] Co de Phone Number [facility] [place] [address] * Magnesium (08/17/2024 6:06 AM CDT) Magnesium 2.1 1.4 - 2.5 mg/dL Blood 08/17/2024 6:06 AM CDT 08/17/2024 6:49 AM CDT us Isaiah Segura MD LAB BLOOD ORDERABLES Chelsea l Result Performing Organization Address [facility] Co de Phone Number [facility] [place] [address] * Folate (08/17/2024 6:06 AM CDT) Folic acid >20.0 >=5.0 ng/mL Blood 08/17/2024 6:06 AM CDT 08/17/2024 6:49 AM CDT us Isaiah Segura MD LAB BLOOD ORDERABLES Chelsea l Result Performing Organization Address City/[facility]/ZIP Co de Phone Number [facility] [place] [address] * Ferritin (08/17/2024 6:06 AM CDT) [facility] Ferritin 234 30 - 400 ng/mL Blood 08/17/2024 6:06 AM CDT 08/17/2024 6:49 AM CDT Isaiah Segura MD LAB BLOOD ORDERABLES Chelsea l Result Performing Organization Address City/[facility] Co de Phone Number [facility] Department [place] [address] * (ABNORMAL) Vitamin B12 (08/17/2024 6:06 AM CDT) [facility] Vitamin B12 1,618(H) 230 - 1,250 pg/mL Blood 08/17/2024 6:06 AM CDT 08/17/2024 6:49 AM CDT Isaiah Segura MD LAB BLOOD ORDERABLES Chelsea l Result Performing Organization Address [facility] de Phone Number [facility] [place] [address] * (ABNORMAL) Basic metabolic panel (08/17/2024 6:06 AM CDT) [facility] Sodium 135 135 - 145 mmol/L Potassium, pl 3.6 3.3 - 4.9 mmol/L [facility] Chloride 92(L) 97 - 110 mmol/L [facility] CO2 36(H) 22 - 32 mmol/L [facility] Anion gap 7 2 - 15 mmol/L [facility] BUN 14 6 - 25 mg/dL [facility] Creatinine 0.78(L) 0.80 - 1.30 mg/dL [facility] Glucose 124 70 - 199 mg/dL [facility] Comment: Interpretive Data Fasting glucose >/= 126 [...] 2022. Calcium 9.2 8.5 - 10.3 mg/dL [facility] Blood 08/17/2024 6:06 AM CDT 08/17/2024 6:49 AM CDT Isaiah Segura MD LAB BLOOD ORDERABLES Chelsea l Result Performing Organization Address [facility] Co de Phone Number [facility] [place] [address] * POCT glucose (08/16/2024 9:19 PM CDT) Glucose, POC 173 70 - 199 mg/dL Blood 08/16/2024 9:19 PM CDT 08/16/2024 9:19 PM CDT Isaiah Segura MD LAB POCT ORDERABLES - DEV ICE Final Result Performing Organization Address [facility] de Phone Number [facility] [place] [address] * POCT glucose (08/16/2024 9:10 PM CDT) Glucose, POC 192 70 - 199 mg/dL Blood 08/16/2024 9:10 PM CDT 08/16/2024 9:10 PM CDT Isaiah Segura MD LAB POCT ORDERABLES - DEV ICE Final Result Performing Organization Address [facility] Co de Phone Number [facility] Department [place] [address] * Lactate (08/16/2024 7:03 PM CDT) Lactate 1.6 0.7 - 2.0 mmol/L Blood 08/16/2024 7:03 PM CDT 08/16/2024 7:17 PM CDT Isaiah Segura MD LAB BLOOD ORDERABLES Chelsea l Result Performing Organization Address City/[facility]/ZIP Co de Phone Number [facility] [place] [address] * POCT glucose (08/16/2024 5:13 PM CDT) Glucose, POC 125 70 - 199 mg/dL Blood 08/16/2024 5:13 PM CDT 08/16/2024 5:13 PM CDT Isaiah Segura MD LAB POCT ORDERABLES - DEV ICE Final Result Performing Organization Address [facility] Co de Phone Number [facility] [place] [address] * Lactate (08/16/2024 4:56 PM CDT) Lactate 1.2 0.7 - 2.0 mmol/L Blood 08/16/2024 4:56 PM CDT 08/16/2024 5:29 PM CDT Isaiah Segura MD LAB BLOOD ORDERABLES Chelsea l Result Performing Organization Address [facility] Co de Phone Number [facility] [place] [address] * (ABNORMAL) POCT glucose (08/16/2024 11:23 AM CDT) Glucose, POC 269(H) 70 - 199 mg/dL Blood 08/16/2024 11:2 3 AM CDT 08/16/2024 11:23 AM CDT us Isaiah Segura MD LAB POCT ORDERABLES - DEV ICE Final Result [facility] Department [place] [address] * TRANSTHORACIC ECHO (TTE) COMPLETE W DOPPLER/CF W CONTRAST (08/16/2024 11:21 AM CDT) Anatomical Region Laterality Modality Ultrasound 08/16/2024 10:0 1 AM CDT Narrative 08/16/2024 11:58 AM CDT [facility] [place] [address] Transthoracic Echocardiographic Report Patient Name: SOPHIA HANNA STEPHEN : 1990 (34y 3m) Gender: M Study Date: 08/16/2024 10:01:37 AM Ht(Inch): 72 Wt(Lb): 138.01 BSA: 1.78 Hand Profiler: Patricia Carmichael RDCS Location: [id number] Order Provider: WENCESLAO REINA Heart Rate: 106 [...] Procedure Note Re Bautista MD - 08/16/2024 [facility] [place] [address] Transthoracic Echocardiographic Report Patient Name: SOPHIA HANNA STEPHEN : 1990 (34y 3m) Gender: M Study Date: 08/16/2024 10:01:37 AM Ht(Inch): 72 Wt(Lb): 138.01 BSA: 1.78 Hand Profiler: Patricia Carmichael RDCS Location: [id number] Order Provider:WENCESLAO REINA Heart Rate: 106 BMI: [...] LA Length 4C 3.89 cm MV Decel Mafv065.48 msec [ 104.00 - 258.00 ] LA [...] LAB BLOOD ORDERABLES Chelsea l Result [facility] Department [place] [address] * (ABNORMAL) POCT glucose (08/16/2024 9:06 AM CDT) Glucose, POC 287(H) 70 - 199 mg/dL Blood 08/16/2024 9:06 AM CDT 08/16/2024 9:06 AM CDT us Isaiah Segura MD LAB POCT ORDERABLES - DEV ICE Final Result Performing Organization Address [facility] Co de Phone Number [facility] Department [place] [address] * eGFR (08/16/2024 9:01 AM CDT) eGFR [...] General Hospital/ZIP Co de Phone Number [facility] [place] [address] * (ABNORMAL) CBC without differential (08/16/2024 9:01 AM CDT) WBC 10.14(H) 3.80 - 9.90 K/cumm Hgb 11.4(L) 13.0 - 17.5 g/dL [facility] Hct 34.3(L) 38.9 - 50.3 % [facility] Plt 174 150 - 400 K/cumm [facility] MPV 9.6 9.1 - 12.3 fL [facility] RBC 3.92(L) 4.30 - 5.80 M/cumm [facility] MCV 87.5 81.3 - 96.4 fL [facility] MCH 29.1 27.1 - 33.3 pg [facility] MCHC 33.2 32.3 - 35.7 g/dL [facility] RDW CV 15.2(H) 11.1 - 14.9 % [facility] RDW SD 48.6(H) 35.7 - 48.1 fL [facility] NRBC abs 0.00 0.00 - 0.01 K/cumm [facility] Blood 08/16/2024 9:01 AM CDT 08/16/2024 10:05 AM CDT Wenceslao Reina MD LAB BLOOD ORDERABLES Final R esult [facility] Department [place] [address] * (ABNORMAL) Basic metabolic panel (08/16/2024 9:01 AM CDT) Sodium 130(L) 135 - 145 mmol/L Potassium, pl 3.5 3.3 - 4.9 mmol/L [facility] Chloride 86(L) 97 - 110 mmol/L [facility] CO2 36(H) 22 - 32 mmol/L [facility] Anion gap 8 2 - 15 mmol/L [facility] BUN 8 6 - 25 mg/dL [facility] Creatinine 0.65(L) 0.80 - 1.30 mg/dL [facility] Glucose 189 70 - 199 mg/dL [facility] Comment: Interpretive Data Fasting glucose >/= 126 [...] 2022. Calcium 9.2 8.5 - 10.3 mg/dL [facility] Blood 08/16/2024 9:01 AM CDT 08/16/2024 10:05 AM CDT Wenceslao Reina MD LAB BLOOD ORDERABLES Final R esult Performing Organization Address City/[facility] Co de Phone Number [facility] [place] [address] * Calcium, ionized (08/16/2024 5:40 AM CDT) Calcium, Ionized 4.59 4.50 - 5.10 mg/dL Blood 08/16/2024 5:40 AM CDT 08/16/2024 5:56 AM CDT Wenceslao Reina MD LAB BLOOD ORDERABLES Final R esult Performing Organization Address [facility] Co de Phone Number [facility] [place] [address] * (ABNORMAL) Phosphorus (08/16/2024 5:40 AM CDT) Phosphorus, pl 1.3(L) 2.3 - 4.5 mg/dL Blood 08/16/2024 5:40 AM CDT 08/16/2024 5:56 AM CDT Wenceslao Reina MD LAB BLOOD ORDERABLES Final R esult Performing Organization Address City/[facility] Co de Phone Number [facility] [place] [address] * (ABNORMAL) Hepatic function panel (08/16/2024 5:40 AM CDT) [facility] Bilirubin, total 0.5 0.1 - 1.2 mg/dL Bilirubin, direct 0.2 0.1 - 0.3 mg/dL [facility] Protein, pl 6.5 6.5 - 8.5 g/dL [facility] Albumin 4.2 3.5 - 5.0 g/dL [facility] Alk phos 69 40 - 130 Units/L [facility] ALT 52 7 - 55 Units/L [facility] AST 88(H) 10 - 50 Units/L [facility] Blood 08/16/2024 5:40 AM CDT 08/16/2024 5:56 AM CDT Wenceslao Reina MD LAB BLOOD ORDERABLES Final R esult Performing Organization Address City/[facility]/ZIP Co de Phone Number [facility] Department [place] [address] * POCT glucose (08/16/2024 3:49 AM CDT) [facility] Glucose, POC 179 70 - 199 mg/dL Blood 08/16/2024 3:49 AM CDT 08/16/2024 3:49 AM CDT Wenceslao Reina MD LAB POCT ORDERABLES - DEVICE Final Result Performing Organization Address [facility] Co de Phone Number [facility] [place] [address] * Oxyhemoglobin, pulmonary artery (08/15/2024 11:30 PM CDT) [facility] Oxyhemoglobin, PA 67.9 % Comment: Interpretive Data No reference range established. Current interpretive data was last revised 2019. Blood 08/15/2024 11:3 0 PM CDT 08/15/2024 11:49 PM CDT Wenceslao Reina MD LAB BLOOD ORDERABLES Final R esult Performing Organization Address [facility] Co de Phone Number [facility] [place] [address] * (ABNORMAL) Hemoglobin total, pulmonary artery (08/15/2024 11:30 PM CDT) Hemoglobin total, PA 11.6(L) 13.0 - 17.5 g/dL Blood 08/15/2024 11:3 0 PM CDT 08/15/2024 11:49 PM CDT Wenceslao Reina MD LAB BLOOD ORDERABLES Final R esult Performing Organization Address [facility] Co de Phone Number [facility] [place] [address] * POCT glucose (08/15/2024 11:30 PM CDT) Glucose, POC 186 70 - 199 mg/dL Blood 08/15/2024 11:3 0 PM CDT 08/15/2024 11:30 PM CDT Result [facility] Wenceslao Reina MD LAB POCT ORDERABLES - DEVICE Final Result Performing Organization Address [facility] Co de Phone Number [facility] [place] [address] * Lactate, whole blood (08/15/2024 11:30 PM CDT) Lactate, bld 1.8 0.7 - 2.0 mmol/L Blood 08/15/2024 11:3 0 PM CDT 08/15/2024 11:49 PM CDT Wenceslao Reina MD LAB BLOOD ORDERABLES Final R esult Performing Organization Address [facility] de Phone Number [facility] Department [place] [address] * eGFR (08/15/2024 9:17 PM CDT) eGFR [...] ORDERABLES Final R esult Performing Organization Address [facility] de Phone Number [facility] Department [place] [address] * Magnesium (08/15/2024 9:17 PM CDT) Magnesium 2.1 1.4 - 2.5 mg/dL Blood 08/15/2024 9:17 PM CDT 08/15/2024 9:48 PM CDT us Mumtaz Juan MD LAB BLOOD ORDERABLES Fi nal Result Performing Organization Address [facility]/ZIP Co de Phone Number [facility] Department [place] [address] * (ABNORMAL) Basic metabolic panel (08/15/2024 9:17 PM CDT) Sodium 130(L) 135 - 145 mmol/L Potassium, pl 4.2 3.3 - 4.9 mmol/L [facility] Chloride 87(L) 97 - 110 mmol/L [facility] CO2 34(H) 22 - 32 mmol/L [facility] Anion gap 9 2 - 15 mmol/L [facility] BUN 10 6 - 25 mg/dL [facility] Creatinine 0.77(L) 0.80 - 1.30 mg/dL [facility] Glucose 133 70 - 199 mg/dL [facility] Comment: Interpretive Data Fasting glucose >/= 126 [...] 2022. Calcium 9.7 8.5 - 10.3 mg/dL [facility] Blood 08/15/2024 9:17 PM CDT 08/15/2024 9:48 PM CDT Wenceslao Reina MD LAB BLOOD ORDERABLES Final R esult [facility] Department [place] [address] * POCT glucose (08/15/2024 9:16 PM CDT) Glucose, POC 143 70 - 199 mg/dL Blood 08/15/2024 9:16 PM CDT 08/15/2024 9:16 PM CDT Wenceslao Reina MD LAB POCT ORDERABLES - DEVICE Final Result Performing Organization Address [facility] Co de Phone Number [facility] [place] [address] * POCT glucose (08/15/2024 6:29 PM CDT) Glucose, POC 138 70 - 199 mg/dL Blood 08/15/2024 6:29 PM CDT 08/15/2024 6:29 PM CDT Wenceslao Reina MD LAB POCT ORDERABLES - DEVICE Final Result Performing Organization Address [facility] [place] [address] * POCT glucose (08/15/2024 5:17 PM CDT) Glucose, POC 198 70 - 199 mg/dL Blood 08/15/2024 5:17 PM CDT 08/15/2024 5:17 PM CDT us Wenceslao Reina MD LAB POCT ORDERABLES - DEVICE Final Result Performing Organization Address [facility] Co de Phone Number [facility] [place] [address] * POCT glucose (08/15/2024 4:21 PM CDT) Glucose, POC 170 70 - 199 mg/dL Blood 08/15/2024 4:21 PM CDT 08/15/2024 4:21 PM CDT us Wenceslao Reina MD LAB POCT ORDERABLES - DEVICE Final Result Performing Organization Address [facility] Co de Phone Number [facility] [place] [address] * Oxyhemoglobin, central venous (08/15/2024 3:22 PM CDT) Oxyhemoglobin, CV 70.4 % Comment: Interpretive Data No reference range established. Current interpretive data was last revised 2019. Blood 08/15/2024 3:22 PM CDT 08/15/2024 3:28 PM CDT us Wenceslao Reina MD LAB BLOOD ORDERABLES Final R esult [facility] [place] [address] * (ABNORMAL) Hemoglobin total, pulmonary artery (08/15/2024 3:22 PM CDT) Pathologist [facility] Hemoglobin total, PA 10.6(L) 13.0 - 17.5 g/dL Blood 08/15/2024 3:22 PM CDT 08/15/2024 3:36 PM CDT us Wenceslao Reina MD LAB BLOOD ORDERABLES Final R esult [facility] Department [place] [address] * eGFR (08/15/2024 3:22 PM CDT) eGFR [...] LAB BLOOD ORDERABLES Final R esult [facility] Department [place] [address] * (ABNORMAL) Pro B-type natriuretic peptide (08/15/2024 [...] R esult Performing Organization Address City/[facility] Co de Phone Number [facility] [place] [address] * Lactate, whole blood (08/15/2024 3:22 PM CDT) Lactate, bld 1.2 0.7 - 2.0 mmol/L Blood 08/15/2024 3:22 PM CDT 08/15/2024 3:28 PM CDT us Wenceslao Reina MD LAB BLOOD ORDERABLES Final R esult Performing Organization Address [facility] Co de Phone Number [facility] [place] [address] * Phosphorus (08/15/2024 3:22 PM CDT) Phosphorus, pl 3.0 2.3 - 4.5 mg/dL Comment:Reviewed Blood 08/15/2024 3:22 PM CDT 08/15/2024 3:44 PM CDT us Wenceslao Reina MD LAB BLOOD ORDERABLES Final R esult Performing Organization Address [facility] Co de Phone Number [facility] [place] [address] * Magnesium (08/15/2024 3:22 PM CDT) Magnesium 2.3 1.4 - 2.5 mg/dL Blood 08/15/2024 3:22 PM CDT 08/15/2024 3:44 PM CDT Wenceslao Reina MD LAB BLOOD ORDERABLES Final R esult [facility] Department [place] [address] * (ABNORMAL) Basic metabolic panel (08/15/2024 3:22 PM CDT) Sodium 133(L) 135 - 145 mmol/L Potassium, pl 4.1 3.3 - 4.9 mmol/L [facility] Chloride 89(L) 97 - 110 mmol/L [facility] CO2 33(H) 22 - 32 mmol/L [facility] Anion gap 11 2 - 15 mmol/L [facility] BUN 14 6 - 25 mg/dL [facility] Creatinine 0.93 0.80 - 1.30 mg/dL [facility] Glucose 145 70 - 199 mg/dL [facility] Comment: Interpretive Data Fasting glucose >/= 126 [...] 2022. Calcium 10.1 8.5 - 10.3 mg/dL [facility] Blood 08/15/2024 3:22 PM CDT 08/15/2024 3:44 PM CDT Wenceslao Reina MD LAB BLOOD ORDERABLES Final R esult Performing Organization Address City/[facility]/ZIP Co de Phone Number [facility] Department [place] [address] * POCT glucose (08/15/2024 3:20 PM CDT) Glucose, POC 146 70 - 199 mg/dL Blood 08/15/2024 3:20 PM CDT 08/15/2024 3:20 PM CDT Wenceslao Reina MD LAB POCT ORDERABLES - DEVICE Final Result Performing Organization Address [facility] [place] [address] * POCT glucose (08/15/2024 2:40 PM CDT) Glucose, POC 93 70 - 199 mg/dL Blood 08/15/2024 2:40 PM CDT 08/15/2024 2:40 PM CDT Wenceslao Reina MD LAB POCT ORDERABLES - DEVICE Final Result Performing Organization Address [facility] [place] [address] * XR Chest 1 View (08/15/2024 2:40 PM CDT) Anatomical Region Laterality Modality Body, Chest N/A Computed Radiogr aphy 08/16/2024 9:53 AM CDT Impressions 08/16/2024 9:53 AM CDT 1. No prior examination available for comparison. A right peripherally inserted central venous catheter tip is in the right atrium. [place] catheter tip overlies the main pulmonary artery. There is no pneumonic consolidation or pneumothorax. 2. Comparison is made to prior examination from the same date. The [place] catheter tip is now located in the [...] catheter tip is in the right atrium. [place] catheter tip overlies the main pulmonary artery. There is no pneumonic consolidation or pneumothorax. 2. Comparison is made to prior examination from the same date. The [place] catheter tip is now located in the [...] LAB POCT ORDERABLES - DEVICE Final Result [facility] Department [place] [address] * (ABNORMAL) Blood gas, arterial (08/15/2024 1:51 PM CDT) pH, Art 7.48(H) 7.35 - 7.45 PCO2, Arterial 47(H) 35 - 45 mmHg [facility] PO2, Arterial 89 83 - 108 mmHg [facility] HCO3 Art (Calculated) 35(H) 20 - 30 mmol/L [facility] BE, art 10 mmol/L [facility] Comment: Interpretive Data No Reference Range Established Current Interpretive Data was last revised on 2017 O2 Sat Art (Measured) 97(H) 90 - 95 % [facility] Blood 08/15/2024 1:51 PM CDT 08/15/2024 1:58 PM CDT us Wenceslao Reina MD LAB BLOOD ORDERABLES Final R esult Performing Organization Address City/[facility]/ZIP Co de Phone Number [facility] [place] [address] * POCT glucose (08/15/2024 1:03 PM CDT) Glucose, POC 124 70 - 199 mg/dL Blood 08/15/2024 1:03 PM CDT 08/15/2024 1:03 PM CDT Wenceslao Reina MD LAB POCT ORDERABLES - DEVICE Final Result Performing Organization Address [facility] Co de Phone Number [facility] Department [place] [address] * XR Abdomen Ap 1 Vw (08/15/2024 [...] catheter tip is in the right atrium. [place] catheter tip overlies the main pulmonary artery. There is no pneumonic consolidation or pneumothorax. 2. Comparison is made to prior examination from the same date. The [place] catheter tip is now located in the [...] catheter tip is in the right atrium. [place] catheter tip overlies the main pulmonary artery. There is no pneumonic consolidation or pneumothorax. 2. Comparison is made to prior examination from the same date. The [place] catheter tip is now located in the [...] 2019. Trop I hs delta 54(C) ng/L [facility] Comment:Previous critical va lue noted within 48 hours ago. Trop I hs interp Significa nt(C) [facility] Comment:Previous critical va lue noted within 48 hours ago. Blood 08/15/2024 12:3 2 PM CDT 08/15/2024 12:45 PM CDT Wenceslao Reina MD LAB BLOOD ORDERABLES Final R esult Performing Organization Address [facility] Co de Phone Number [facility] Department [place] [address] * Oxyhemoglobin, pulmonary artery (08/15/2024 12:32 PM CDT) Pathologist [facility] Oxyhemoglobin, PA 72.8 % Comment: Interpretive Data No reference range established. Current interpretive data was last revised 2019. Blood 08/15/2024 12:3 2 PM CDT 08/15/2024 12:44 PM CDT Wenceslao Reina MD LAB BLOOD ORDERABLES Final R esult [facility] Department [place] [address] * (ABNORMAL) Hemoglobin total, pulmonary artery (08/15/2024 12:32 PM CDT) Hemoglobin total, PA 10.4(L) 13.0 - 17.5 g/dL Blood 08/15/2024 12:3 2 PM CDT 08/15/2024 12:44 PM CDT us Jose J Tolbert MD LAB BLOOD ORDERABLES Final Result Performing Organization Address [facility] Co de Phone Number [facility] Department [place] [address] * eGFR (08/15/2024 12:32 PM CDT) eGFR [...] City/[facility]/ZIP Co de Phone Number [facility] [place] [address] * (ABNORMAL) Calcium, ionized (08/15/2024 12:32 PM CDT) Calcium, Ionized 5.14(H) 4.50 - 5.10 mg/dL Blood 08/15/2024 12:3 2 PM CDT 08/15/2024 12:55 PM CDT Wenceslao Reina MD LAB BLOOD ORDERABLES Final R esult [facility] [place] [address] * (ABNORMAL) Phosphorus (08/15/2024 12:32 PM CDT) Pathologist [facility] Phosphorus, pl 0.9(L) 2.3 - 4.5 mg/dL Blood 08/15/2024 12:3 2 PM CDT 08/15/2024 12:45 PM CDT us Wenceslao Reina MD LAB BLOOD ORDERABLES Final R esult Performing Organization Address City/[facility] Co de Phone Number [facility] Department [place] [address] * Magnesium (08/15/2024 12:32 PM CDT) [facility] Magnesium 2.4 1.4 - 2.5 mg/dL Blood 08/15/2024 12:3 2 PM CDT 08/15/2024 12:45 PM CDT Wenceslao Reina MD LAB BLOOD ORDERABLES Final R esult Performing Organization Address City/[facility] Co de Phone Number [facility] [place] [address] * (ABNORMAL) Basic metabolic panel (08/15/2024 12:32 PM CDT) Pathologist [facility] Sodium 133(L) 135 - 145 mmol/L Potassium, pl 4.2 3.3 - 4.9 mmol/L [facility] Chloride 90(L) 97 - 110 mmol/L [facility] CO2 33(H) 22 - 32 mmol/L [facility] Comment:Reviewed Anion gap 10 2 - 15 mmol/L [facility] Comment:Reviewed BUN 15 6 - 25 mg/dL [facility] Creatinine 0.97 0.80 - 1.30 mg/dL [facility] Glucose 144 70 - 199 mg/dL [facility] Comment: Interpretive Data Fasting glucose >/= 126 [...] 2022. Calcium 10.5(H) 8.5 - 10.3 mg/dL [facility] Blood 08/15/2024 12:3 2 PM CDT 08/15/2024 12:45 PM CDT us Wenceslao Reina MD LAB BLOOD ORDERABLES Final R esult Performing Organization Address City/[facility]/ZIP Co de Phone Number [facility] [place] [address] * POCT glucose (08/15/2024 11:57 AM CDT) Glucose, POC 165 70 - 199 mg/dL Blood 08/15/2024 11:5 7 AM CDT 08/15/2024 11:57 AM CDT Wenceslao Reina MD LAB POCT ORDERABLES - DEVICE Final Result Performing Organization Address City/[facility]/ZIP Co de Phone Number [facility] [place] [address] * (ABNORMAL) Troponin I high-sensitivity 4-hour (08/15/2024 10:58 AM CDT) Trop I hs 76(H) <=35 ng/L Comment: Previous critical value noted within 48 hours ago. Interpretive Data For further hscTnI resources including the diagnostic algorithm and an aid in interpretation, copy and paste this link: https://bjhlab.testcatalog.org/show/hsTrop-1 Current Interpretive Data last revised 2019. Trop I hs delta 25(C) ng/L [facility] Comment:Previous critical va lue noted within 48 hours ago. Trop I hs interp Significa nt(C) [facility] Comment:Previous critical va lue noted within 48 hours ago. Blood 08/15/2024 10:5 8 AM CDT 08/15/2024 11:06 AM CDT us Wenceslao Reina MD LAB BLOOD ORDERABLES Final R esult Performing Organization Address [facility] Co de Phone Number [facility] Department [place] [address] * Oxyhemoglobin, central venous (08/15/2024 10:58 AM CDT) Oxyhemoglobin, CV 71.6 % Comment: Interpretive Data No reference range established. Current interpretive data was last revised 2019. Blood 08/15/2024 10:5 8 AM CDT 08/15/2024 11:06 AM CDT us Wenceslao Riena MD LAB BLOOD ORDERABLES Final R esult Performing Organization Address [facility] Co de Phone Number [facility] Department [place] [address] * (ABNORMAL) Hemoglobin total, pulmonary artery (08/15/2024 10:58 AM CDT) Hemoglobin total, PA 9.8(L) 13.0 - 17.5 g/dL Blood 08/15/2024 10:5 8 AM CDT 08/15/2024 11:06 AM CDT us Wenceslao Reina MD LAB BLOOD ORDERABLES Final R esult Performing Organization Address [facility] Co de Phone Number [facility] [place] [address] * Lactate, whole blood (08/15/2024 10:58 AM CDT) Lactate, bld 1.8 0.7 - 2.0 mmol/L Blood 08/15/2024 10:5 8 AM CDT 08/15/2024 11:06 AM CDT us Wenceslao Reina MD LAB BLOOD ORDERABLES Final R esult Performing Organization Address [facility] de Phone Number [facility] [place] [address] * POCT glucose (08/15/2024 10:51 AM CDT) Glucose, POC 165 70 - 199 mg/dL Blood 08/15/2024 10:5 1 AM CDT 08/15/2024 10:51 AM CDT us Wenceslao Reina MD LAB POCT ORDERABLES - DEVICE Final Result Performing Organization Address [facility] Co de Phone Number [facility] Department [place] [address] * SD INSJ NON-TUNNELED CENTRAL VENOUS CATH AGE 4 YR/> (08/15/2024 9:58 AM CDT) Narrative Wenceslao Reina MD - 08/15/2024 9:58 AM CDT Wenceslao Reina MD 08/15/2024 3:12 PM Central Line Insertion- [facility] Date/Time: 08/15/2024 9:58 AM Performed by: Ngozi Tamez MD Authorized by: Wenceslao Reina MD [place] Protocol: RN Notified of Procedure: yes Patient [...] Ultrasound guidance: Real-time needle guidance Procedural supplies: [facility]. Needle inserted, vein idenitified then guidewire inserted easily into vein: Yes Successful placement: Yes Patient tolerance: Patient tolerated the procedure well with no immediate complications us Wenceslao Reina MD IN CLINIC/BEDSIDE ORDERABLES Final Result * (ABNORMAL) POC Blood Gas and Chemistries, Arterial - (08/15/2024 9:57 AM CDT) pH, Art POC 7.36 7.35 - 7.45 pCO2, Art POC 25(L) 35 - 45 mmHg [facility] pO2, Art POC 83 83 - 108 mmHg [facility] Na, POC 130(L) 135 - 145 mmol/L [facility] K POC 4.6 3.3 - 4.9 mmol/L [facility] Comment: Interpretive Data Not all point of care methods assess for hemolysis. Confirm with instrument and retest K+ if not consistent with clinical signs and symptoms. Current Interpretive Data was last revised on 2023. Cl, POC 93(L) 97 - 110 mmol/L [facility] Ionized Ca, POC 6.02(H) 4.50 - 5.10 mg/dL [facility] Glucose, POC 253(H) 70 - 199 mg/dL [facility] Lactate, POC 2.4(H) 0.7 - 2.0 mmol/L [facility] SO2 (fabiana) arterial 98(H) 90 - 95 % [facility] Base excess, POC -10.0 mmol/L [facility] HCO3, Art POC 14(L) 20 - 30 mmol/L [facility] Hct, POC 29.0(L) 41.4 - 51.6 % [facility] Total Hb, POC 9.7(L) 13.8 - 17.2 g/dL [facility] Blood 08/15/2024 9:57 AM CDT 08/15/2024 9:57 AM CDT Wenceslao Reina MD LAB POCT ORDERABLES - DEVICE Final Result Performing Organization Address [facility] Co de Phone Number [facility] [place] [address] * (ABNORMAL) Urinalysis reflex to microscopic and culture Urine (08/15/2024 9:56 AM CDT) Color, ur Straw Yellow Clarity, ur Clear Clear [facility] Specific gravity, ur 1.008 1.003 - 1.030 [facility] pH, urine 6.0 [facility] Comment: Interpretive Data U rine pH is affected by diet, medications, systemic acid-base disturbances, and renal tubular function. pH may affect urinary stone formation. For example, urine pH below 6.0 may help reduce the tendency for calcium phosphate stones and pH greater than 6.0 may reduce the tendency for uric acid stone formation. Source: [facility] Current Interpretive Data was last revised on 2017 Protein, ur ql Negative Negative [facility] Glucose, ur ql 3+(A) Negative [facility] Ketones, ur 1+(A) Negative [facility] Bilirubin, ur Negative Negative [facility] Blood, ur 2+(A) Negative [facility] Urobilinogen, ur <2.0 <2.0 mg/dL [facility] Nitrite, ur Negative Negative [facility] Leukocyte esterase, ur Negative Negative [facility] UA reflex comment Reflex to microscopic UA will be performed. [facility] Urine 08/15/2024 9:56 AM CDT 08/15/2024 10:15 AM CDT Wenceslao Reina MD LAB MICROBIOLOGY - GENERAL O RDERABLES Final Result Performing Organization Address [facility]/ZIP Co de Phone Number [facility] [place] [address] * (ABNORMAL) Urinalysis, microscopic only (08/15/2024 9:56 AM CDT) WBC, ur 0-5 0 - 5 /HPF RBC, ur 0-2 0 - 2 /HPF [facility] Epithelial cells, squamous, ur 1-5 0 - 5 /HPF [facility] Bacteria, ur Trace(A) [facility] Mucous, ur Present(A) [facility] Culture Reflex Comment Reflex conditions for urine culture (WBC >10) not met. [facility] Urine 08/15/2024 9:56 AM CDT 08/15/2024 10:15 AM CDT us Wenceslao Reina MD LAB URINE ORDERABLES Final R esult [facility] [place] [address] * SD ARTL CATHJ/CANNULJ MNTR/TRANSFUSION SPX PRQ (08/15/2024 9:53 AM CDT) Narrative Wenceslao Reina MD - 08/15/2024 9:53 AM CDT Wenceslao Reina MD 08/15/2024 3:12 PM Arterial Line Insertion Date/Time: 08/15/2024 9:53 AM Performed by: Ngozi Tamez MD Authorized by: Wenceslao Reina MD [place] Protocol: RN Notified of Procedure: yes Informed [...] - DEVICE Final Result Performing Organization Address [facility] Co de Phone Number [facility] [place] [address] * eGFR (08/15/2024 8:38 AM CDT) eGFR [...] City/[facility]/ZIP Co de Phone Number [facility] [place] [address] * Critical Result Callback Chemistry (08/15/2024 8:38 AM CDT) Date Notified 20240815 Time Notified 09 [facility] TestName Anion Gap [facility] Called/Read Back Beth German [facility] Credentials RN [facility] Called By [facility] Blood 08/15/2024 8:38 AM CDT 08/15/2024 8:57 AM CDT us Kayleigh Avila MD LAB BLOOD ORDERABLES F inal Result [facility] Department [place] [address] * (ABNORMAL) Comprehensive metabolic panel (08/15/2024 8:38 AM CDT) Sodium 132(L) 135 - 145 mmol/L Potassium, pl 4.6 3.3 - 4.9 mmol/L [facility] Chloride 89(L) 97 - 110 mmol/L [facility] CO2 14(L) 22 - 32 mmol/L [facility] Anion gap 29(C) 2 - 15 mmol/L [facility] Comment:Reviewed BUN 19 6 - 25 mg/dL [facility] Creatinine 1.25 0.80 - 1.30 mg/dL [facility] Glucose 266(H) 70 - 199 mg/dL [facility] Comment: Interpretive Data Fasting glucose >/= 126 [...] 2022. Calcium 10.8(H) 8.5 - 10.3 mg/dL [facility] Comment:Repeated and Verifie d Bilirubin, total 0.4 0.1 - 1.2 mg/dL [facility] Protein, pl 5.8(L) 6.5 - 8.5 g/dL [facility] Albumin 3.8 3.5 - 5.0 g/dL [facility] Alk phos 59 40 - 130 Units/L [facility] ALT 49 7 - 55 Units/L [facility] AST 94(H) 10 - 50 Units/L [facility] Blood 08/15/2024 8:38 AM CDT 08/15/2024 8:57 AM CDT Result [facility] Kayleigh Avila MD LAB BLOOD ORDERABLES F inal Result Performing Organization Address [facility]/ZIP Co de Phone Number [facility] Department [place] [address] * (ABNORMAL) Troponin I high-sensitivity 2-hour (08/15/2024 8:29 AM CDT) Trop I hs 66(H) <=35 ng/L Comment: Interpretive Data For further hscTnI resources including the diagnostic algorithm and an aid in interpretation, copy and paste this link: https://bjhlab.testcatalog.org/show/hsTrop-1 Current Interpretive Data last revised 2019. Trop I hs delta 15(C) ng/L [facility] Comment:Reviewed Trop I hs interp Significa nt(C) [facility] Comment:Reviewed Blood 08/15/2024 8:29 AM CDT 08/15/2024 8:57 AM CDT Wenceslao Reina MD LAB BLOOD ORDERABLES Final R esult Performing Organization Address City/[facility]/ZIP Co de Phone Number [facility] Department [place] [address] * Oxyhemoglobin, central venous (08/15/2024 8:29 AM CDT) Oxyhemoglobin, CV 75.8 % Comment: Interpretive Data No reference range established. Current interpretive data was last revised 2019. Blood 08/15/2024 8:29 AM CDT 08/15/2024 8:47 AM CDT us Wenceslao Reina MD LAB BLOOD ORDERABLES Final R esult Performing Organization Address City/[facility]/ZIP Co de Phone Number [facility] One [facility] [place] [address] * Critical result callback Cardio chemistry (08/15/2024 8:29 AM CDT) Date Notified 20240815 Time Notified 933 [facility] Test name Trop I hs 2hr delta [facility] Called/Read Back Beth BOB Credentials RN [facility] Called By ra [facility] Blood 08/15/2024 8:29 AM CDT 08/15/2024 8:57 AM CDT us Wenceslao Reina MD LAB BLOOD ORDERABLES Final R esult Performing Organization Address City/[facility] Co de Phone Number [facility] Department [place] [address] * Critical Result Callback Chemistry (08/15/2024 8:29 AM CDT) Date Notified 20240815 Time Notified 857 [facility] TestName Lactate Whole Blood [facility] Called/Read Back Kimmy JETER [facility] Credentials RN [place] [facility] Called By LISA BOB Blood 08/15/2024 8:29 AM CDT 08/15/2024 8:48 AM CDT us Wenceslao Reina MD LAB BLOOD ORDERABLES Final R esult Performing Organization Address City/[facility] Co de Phone Number [facility] One [facility] [place] [address] * (ABNORMAL) Lactate, whole blood (08/15/2024 8:29 AM CDT) Pathologist [facility] Lactate, bld 4.2(C) 0.7 - 2.0 mmol/L Comment:Reviewed Blood 08/15/2024 8:29 AM CDT 08/15/2024 8:48 AM CDT Wenceslao Reina MD LAB BLOOD ORDERABLES Final R esult Performing Organization Address [facility] Co de Phone Number [facility] Department [place] [address] * (ABNORMAL) Beta-hydroxybutyrate (08/15/2024 7:42 AM CDT) [facility] Beta-Hydroxybut yrate 4.2(H) 0.0 - 0.5 mmol/L Blood 08/15/2024 7:42 AM CDT 08/15/2024 7:48 AM CDT Wenceslao Reina MD LAB BLOOD ORDERABLES Final R esult Performing Organization Address City/[facility] Co de Phone Number [facility] [place] [address] * Blood culture Blood (08/15/2024 7:41 AM CDT) Pathologist [facility] Report Final Report: No growth Blood 08/15/2024 7:41 AM CDT 08/15/2024 8:49 AM CDT Narrative [facility] - 08/19/2024 12:00 PM CDT From a [...] performance characteristics have been verified by the [facility] Microbiology Laboratory. For questions about this culture, contact the Microbiology Laboratory at [phone]. Interpretive data was last revised on 24. us Wenceslao Reina MD LAB MICROBIOLOGY - GENERAL O RDERABLES Final Result [facility] Department [place] [address] * Blood culture Blood (08/15/2024 7:41 AM CDT) Report Final Report: No growth Blood 08/15/2024 7:41 AM CDT 08/15/2024 7:52 AM CDT Narrative [facility] - 08/19/2024 12:00 PM CDT Collection->Peripheral 1. [...] performance characteristics have been verified by the [facility]biology [facility]. For questions about this culture, contact the Microbiology Laboratory at [phone]. Interpretive data was last revised on 24. Wenceslao Reina MD LAB MICROBIOLOGY - GENERAL O RDERABLES Final Result [facility] Department [place] [address] * (ABNORMAL) POC Blood Gas and Chemistries, Arterial - (08/15/2024 7:38 AM CDT) pH, Art POC 7.18(C) 7.35 - 7.45 pCO2, Art POC 26(L) 35 - 45 mmHg [facility] pO2, Art POC 97 83 - 108 mmHg [facility] Na, POC 127(L) 135 - 145 mmol/L [facility] K POC 4.8 3.3 - 4.9 mmol/L [facility] Comment: Interpretive Data Not all point of care methods assess for hemolysis. Confirm with instrument and retest K+ if not consistent with clinical signs and symptoms. Current Interpretive Data was last revised on 2023. Cl, POC 93(L) 97 - 110 mmol/L [facility] Ionized Ca, POC 6.73(H) 4.50 - 5.10 mg/dL [facility] Glucose, POC 301(H) 70 - 199 mg/dL [facility] Lactate, POC 4.2(C) 0.7 - 2.0 mmol/L [facility] SO2 (fabiana) arterial 98(H) 90 - 95 % [facility] Base excess, POC -17.2 mmol/L [facility] HCO3, Art POC 10(C) 20 - 30 mmol/L [facility] Hct, POC 26.0(L) 41.4 - 51.6 % [facility] Total Hb, POC 8.8(L) 13.8 - 17.2 g/dL [facility] Blood 08/15/2024 7:38 AM CDT 08/15/2024 7:38 AM CDT us Wenceslao Reina MD LAB POCT ORDERABLES - DEVICE Final Result Performing Organization Address [facility] Co de Phone Number [facility] [place] [address] * Check Sample (08/15/2024 6:50 AM CDT) ABO Rh A Positive [facility] OTHER 08/15/2024 6:50 AM CDT 08/15/2024 7:00 AM CDT us Wenceslao Reina MD LAB BLOOD ORDERABLES Final R esult Performing Organization Address [facility] Co de Phone Number [facility] [place] [address] [facility] * (ABNORMAL) Calcium, ionized (08/15/2024 6:50 AM CDT) Calcium, Ionized 3.68(L) 4.50 - 5.10 mg/dL Blood 08/15/2024 6:50 AM CDT 08/15/2024 6:57 AM CDT us Wenceslao Reina MD LAB BLOOD ORDERABLES Final R esult Performing Organization Address [facility] Co de Phone Number [facility] [place] [address] * aPTT (08/15/2024 6:50 AM CDT) aPTT [...] ORDERABLES Final R esult Performing Organization Address [facility] Co de Phone Number [facility] [place] [address] * Protime-INR (08/15/2024 6:50 AM CDT) PT 10.4 9.7 - 13.0 sec INR 0.96 0.90 - 1.20 [facility] Comment: Interpretive data Oral anticoagulant therapeutic ranges: Venous thromboembolism prophylaxis or treatment: 2.0-3.0 CARDIOLOGY Standard range: 2.0-3.0 High-intensity range: 2.5-3.5 Refer to indication-specific guidelines for appropriate target ranges for prosthetic heart valve replacement. Current interpretive data was last revised on 2019. Blood 08/15/2024 6:50 AM CDT 08/15/2024 6:57 AM CDT Wenceslao Reina MD LAB BLOOD ORDERABLES Final R esult Performing Organization Address [facility] [place] [address] * Type and screen (08/15/2024 6:29 AM CDT) John, indirect Negative ABO Rh A Positive [facility] Blood 08/15/2024 6:29 AM CDT 08/15/2024 6:44 AM CDT Narrative [facility] - 08/15/2024 7:32 AM CDT Has the patient had Daratumumab or Isatuximab in the past 6 months?->Unknown Wenceslao Reina MD LAB BLOOD BANK TEST ORDERABL ES Final Result Performing Organization Address [facility] Co de Phone Number [facility] [place] [address] * (ABNORMAL) Troponin I high-sensitivity series (baseline, [...] MD LAB BLOOD ORDERABLES Final R esult [facility] Department [place] [address] * eGFR (08/15/2024 6:26 AM CDT) eGFR [...] MD LAB BLOOD ORDERABLES Final R esult [facility] Department [place] [address] * (ABNORMAL) Differential, auto (08/15/2024 6:26 AM CDT) Neutrophil abs 7.40(H) 1.50 - 6.50 K/cumm Imm gran abs 0.06 0.00 - 0.10 K/cumm [facility] Lymphocyte abs 0.81 0.80 - 3.30 K/cumm [facility] Monocyte abs 1.85(H) 0.20 - 0.80 K/cumm [facility] Eosinophil abs 0.03 0.00 - 0.50 K/cumm [facility] Basophil abs 0.01 0.00 - 0.10 K/cumm [facility] Neutrophil pct 72.8 % [facility] Comment: Interpretive Data Percent cell count reference ranges are not reported, since discordance with absolute values may lead to misinterpretation of CBC data. Current Interpretive Data was last revised on 2017. Imm gran pct 0.6 % [facility] Comment: Interpretive Data Percent cell count reference ranges are not reported, since discordance with absolute values may lead to misinterpretation of CBC data. Current Interpretive Data was last revised on 2017. Lymphocyte pct 8.0 % [facility] Comment: Interpretive Data Percent cell count reference ranges are not reported, since discordance with absolute values may lead to misinterpretation of CBC data. Current Interpretive Data was last revised on 2017. Monocyte pct 18.2 % [facility] Comment: Interpretive Data Percent cell count reference ranges are not reported, since discordance with absolute values may lead to misinterpretation of CBC data. Current Interpretive Data was last revised on 2017. Eosinophil pct 0.3 % [facility] Comment: Interpretive Data Percent cell count reference ranges are not reported, since discordance with absolute values may lead to misinterpretation of CBC data. Current Interpretive Data was last revised on 2017. Basophil pct 0.1 % [facility] Comment: Interpretive Data Percent cell count reference ranges are not reported, since discordance with absolute values may lead to misinterpretation of CBC data. Current Interpretive Data was last revised on 2017. Blood 08/15/2024 6:26 AM CDT 08/15/2024 6:49 AM CDT us Wenceslao Reina MD LAB BLOOD ORDERABLES Final R esult Performing Organization Address City/[facility]/ZIP Co de Phone Number [facility] [place] [address] * Critical Result Callback Chemistry (08/15/2024 6:26 AM CDT) Date Notified 20240815 Time Notified 901 [facility] TestName Calcium, Anion Gap, CO2 Totl [place] [facility] Called/Read Back Wenceslao [facility] Credentials RN [facility] Called By ra [facility] Blood 08/15/2024 6:26 AM CDT 08/15/2024 6:40 AM CDT us Wenceslao Reina MD LAB BLOOD ORDERABLES Final R esult Performing Organization Address [facility] Co de Phone Number [facility] [place] [address] * Critical Result Callback Chemistry (08/15/2024 6:26 AM CDT) Date Notified [id number] Time Notified 720 [facility] TestName Lactate Whole Blood, pH Robbin, HCO3 Robbin (Calc) [facility] Called/Read Back Hiral Regan [facility] Credentials RN [facility] Called By LISA [facility] Blood 08/15/2024 6:26 AM CDT 08/15/2024 6:40 AM CDT us Wenceslao Reina MD LAB BLOOD ORDERABLES Final R esult Performing Organization Address City/[facility]/ZIP Co de Phone Number [facility] Department [place] [address] * (ABNORMAL) CBC with auto differential (08/15/2024 6:26 AM CDT) [facility] WBC 10.16(H) 3.80 - 9.90 K/cumm Hgb 8.5(L) 13.0 - 17.5 g/dL [facility] Hct 26.2(L) 38.9 - 50.3 % [facility] Plt 240 150 - 400 K/cumm [facility] MPV 9.2 9.1 - 12.3 fL [facility] RBC 2.89(L) 4.30 - 5.80 M/cumm [facility] MCV 90.7 81.3 - 96.4 fL [facility] MCH 29.4 27.1 - 33.3 pg [facility] MCHC 32.4 32.3 - 35.7 g/dL [facility] RDW CV 15.4(H) 11.1 - 14.9 % [facility] RDW SD 51.3(H) 35.7 - 48.1 fL [facility] NRBC abs 0.00 0.00 - 0.01 K/cumm [facility] Blood 08/15/2024 6:26 AM CDT 08/15/2024 6:49 AM CDT Wenceslao Reina MD LAB BLOOD ORDERABLES Final R esult [facility] Department [place] [address] * (ABNORMAL) Lactate, whole blood (08/15/2024 6:26 AM CDT) [facility] Lactate, bld 4.6(C) 0.7 - 2.0 mmol/L Comment:Repeated and verifie d. Blood 08/15/2024 6:26 AM CDT 08/15/2024 6:40 AM CDT us Wenceslao Reina MD LAB BLOOD ORDERABLES Final R esult Performing Organization Address [facility] de Phone Number [facility] [place] [address] * (ABNORMAL) TSH (08/15/2024 6:26 AM CDT) Thyroid Stimulating Hormone 0.05(L) 0.30 - 4.20 mcIUnit/mL Blood 08/15/2024 6:26 AM CDT 08/15/2024 6:40 AM CDT us Wenceslao Reina MD LAB BLOOD ORDERABLES Final R esult Performing Organization Address [facility] de Phone Number [facility] [place] [address] * Phosphorus (08/15/2024 6:26 AM CDT) Phosphorus, pl 2.4 2.3 - 4.5 mg/dL Comment:Repeated and verifie d. Blood 08/15/2024 6:26 AM CDT 08/15/2024 6:40 AM CDT us Wenceslao Reina MD LAB BLOOD ORDERABLES Final R esult Performing Organization Address [facility] Co de Phone Number [facility] [place] [address] * Magnesium (08/15/2024 6:26 AM CDT) Magnesium 1.7 1.4 - 2.5 mg/dL Comment:Repeated and verifie d. Blood 08/15/2024 6:26 AM CDT 08/15/2024 6:40 AM CDT us Wenceslao Reina MD LAB BLOOD ORDERABLES Final R esult Performing Organization Address City/[facility] Co de Phone Number [facility] [place] [address] * Lipase (08/15/2024 6:26 AM CDT) [facility] Lipase 38 10 - 99 Units/L Blood 08/15/2024 6:26 AM CDT 08/15/2024 6:40 AM CDT Wenceslao Reina MD LAB BLOOD ORDERABLES Final R esult Performing Organization Address [facility] [place] [address] * (ABNORMAL) Hemoglobin A1c (08/15/2024 6:26 AM CDT) [facility] Hgb A1C 5.9(H) 4.0 - 5.6 % Estimated Average Glucose 123 mg/dL [facility] Comment: The ADA recommends reporting an estimated [...] ORDERABLES Final R esult Performing Organization Address [facility] Co de Phone Number [facility] [place] [address] * (ABNORMAL) Blood gas, venous (08/15/2024 6:26 AM CDT) [facility] pH, Venous 7.18(C) 7.32 - 7.43 Comment:Repeated and verifie d. PCO2, Venous 23(L) 40 - 50 mmHg [facility] Comment:Repeated and verifie d. PO2, Venous 63 mmHg [facility] Comment: Repeated and verified. Interpretive Data No Reference Range Established Current Interpretive Data was last revised on 2017. HCO3 Venous, Calculated 9(C) 20 - 30 mmol/L [facility] Comment:Repeated and verifie d. BE, venous -19 mmol/L [facility] Comment: Repeated and verified. Interpretive Data No Reference Range Established Current Interpretive Data was last revised on 2017. Blood 08/15/2024 6:26 AM CDT 08/15/2024 6:40 AM CDT Wenceslao Reina MD LAB BLOOD ORDERABLES Final R esult Performing Organization Address [facility] de Phone Number [facility] [place] [address] * (ABNORMAL) Ethanol (08/15/2024 6:26 AM CDT) Pathologist [facility] Ethanol 100(H) <=10 mg/dL Comment: Repeated and verified. Interpretive Data Legal limit of intoxication > or = 80 mg/dL Levels > or = 400 mg/dL are potentially TOXIC. Current interpretive data was last revised on 2018. Blood 08/15/2024 6:26 AM CDT 08/15/2024 6:40 AM CDT us Wenceslao Reina MD LAB BLOOD ORDERABLES Final R esult Performing Organization Address [facility] de Phone Number [facility] Department [place] [address] * (ABNORMAL) Comprehensive metabolic panel (08/15/2024 6:26 AM CDT) Sodium 130(L) 135 - 145 mmol/L Comment:Repeated and verifie d. Potassium, pl 4.9 3.3 - 4.9 mmol/L [facility] Comment:Repeated and verifie d. Chloride 85(L) 97 - 110 mmol/L [facility] Comment:Repeated and verifie d. CO2 10(C) 22 - 32 mmol/L [facility] Comment:Repeated and verifie d. Anion gap 35(C) 2 - 15 mmol/L [facility] Comment:Repeated and verifie d. BUN 19 6 - 25 mg/dL [facility] Comment:Repeated and verifie d. Creatinine 1.35(H) 0.80 - 1.30 mg/dL [facility] Comment:Repeated and verifie d. Glucose 319(H) 70 - 199 mg/dL [facility] Comment: Repeated and verified. Interpretive Data Fasting [...] 2022. Calcium 6.1(C) 8.5 - 10.3 mg/dL [facility] Comment:Repeated and verifie d. Bilirubin, total 0.4 0.1 - 1.2 mg/dL [facility] Comment:Repeated and verifie d. Protein, pl 5.4(L) 6.5 - 8.5 g/dL [facility] Comment:Repeated and verifie d. Albumin 3.6 3.5 - 5.0 g/dL [facility] Comment:Repeated and verifie d. Alk phos 55 40 - 130 Units/L [facility] Comment:Repeated and verifie d. ALT 45 7 - 55 Units/L [facility] Comment:Repeated and verifie d. AST 91(H) 10 - 50 Units/L [facility] Comment:Repeated and verifie d. Blood 08/15/2024 6:26 AM CDT 08/15/2024 6:40 AM CDT Wenceslao Reina MD LAB BLOOD ORDERABLES Final R esult [facility] Department [place] [address] * (ABNORMAL) POC Blood Gas and Chemistries, Venous - (08/15/2024 6:21 AM CDT) pH, Robbin POC 7.14(C) 7.32 - 7.43 pCO2, robbin POC 24(L) 40 - 50 mmHg [facility] pO2, robbin POC 51 mmHg [facility] Na, POC 126(L) 135 - 145 mmol/L [facility] K POC 5.7(H) 3.3 - 4.9 mmol/L [facility] Comment: Interpretive Data Not all point of care methods assess for hemolysis. Confirm with instrument and retest K+ if not consistent with clinical signs and symptoms. Current Interpretive Data was last revised on 2023. Cl, POC 89(L) 97 - 110 mmol/L [facility] Ionized Ca, POC 3.48(L) 4.50 - 5.10 mg/dL [facility] Glucose, POC 338(H) 70 - 199 mg/dL [facility] Lactate, POC 4.8(C) 0.7 - 2.0 mmol/L [facility] O2 Sat, Robbin POC (Fabiana) 84 % [facility] Base excess, POC -19.2 mmol/L [facility] HCO3, Robbin POC 8(C) 20 - 30 mmol/L [facility] Hct, POC 27.0(L) 41.4 - 51.6 % [facility] Total Hb, POC 8.9(L) 13.8 - 17.2 g/dL [facility] Blood 08/15/2024 6:21 AM CDT 08/15/2024 6:21 AM CDT Wenceslao Reina MD LAB POCT ORDERABLES - DEVICE Final Result [facility] Department [place] [address] * Cardiology Document Scan (07/31/2024 4:46 PM [...] >90 EXTERNAL LAB SCRIBED eGFR in NonAfrican Latvian >90 >90 EXTERNAL LAB Blood 07/22/2024 2:15 PM CDT Erich Infante MD LAB BLOOD ORDERABLES Fi nal Result EXTERNAL LAB * B-type natriuretic peptide (06/24/2024) SCRIBED BNP 238 <125 pg/mL [facility] Blood 06/24/2024 Erich Infante MD LAB BLOOD ORDERABLES Fi nal Result [facility] * (ABNORMAL) Comprehensive metabolic panel (06/24/2024) Pathologist [facility] SCRIBED Sodium 139 136 - 145 mmol/L [facility] SCRIBED Potassium 3.6 3.5 - 5.1 mmol/L [facility] SCRIBED Chloride 96(A) 100 - 108 mmol/L [facility] SCRIBED Carbon Dioxide 33.3(A) 21 - 32 mmol/L [facility] SCRIBED Anion Gap 9.7 5 - 15 mmol/L [facility] SCRIBED Urea Nitrogen (BUN) 21(A) 7 - 18 mg/dl [facility] SCRIBED Creatinine 0.90 0.7 - 1.3 mg/dl [facility] SCRIBED Glucose 151(A) 70 - 99 mg/dl [facility] Calcium 9.4 8.5 - 10.1 mg/dl [facility] Bilirubin 0.9 0.2 - 1.2 mg/dl [facility] Plasma Protein 6.8 6.4 - 8.2 g/dl [facility] Albumin 4.1 3.4 - 5.0 g/dl [facility] Alkaline Phosphatase 76 50 - 136 Units/L [facility] Alanine Transaminase (ALT) 58 16 - 60 Units/L [facility] Aspartate Transaminase (AST) 78(A) 15 - 37 Units/L [facility] eGFR in NonAfrican Latvian >90 >90 [facility] Alb/glob ratio 1.5 1.0 - 2.0 [facility] BUN_Creat Ratio 23.3 6 - 26 [facility] Blood 06/24/2024 us Erich Infante MD LAB BLOOD ORDERABLES Fi nal Result [facility] * TRANSTHORACIC ECHO (TTE) COMPLETE W DOPPLER/CF W CONTRAST (06/23/2024 9:34 AM BUSINESS BANKING RELATIONSHIP MANAGER) Anatomical Region Laterality Modality Ultrasound 06/23/2024 8:59 AM BUSINESS BANKING RELATIONSHIP MANAGER Narrative 06/23/2024 1:32 PM BUSINESS BANKING RELATIONSHIP MANAGER Heart [facility] Cardiac Diagnostic Lab [address], [address] [place] [address] Transthoracic Echocardiographic Report Patient Name: SOPHIA HANNA ST : 1990 (34y 2m) Gender: M Study Date: 06/23/2024 08:59:08 AM Ht(Inch): 72 Wt(Lb): 149.91 BSA: 1.86 Hand Profiler: Joanna Mcfarlane RDCS Location: [facility] Order Provider: ARELISERICH Heart Rate: 111 BMI: [...] index. Previously Signed by:Jaciel 06/23/2024 1:31:45 PM BUSINESS BANKING RELATIONSHIP MANAGER and Cong Nix M.D. 06/23/2024 1:31:45 PM BUSINESS BANKING RELATIONSHIP MANAGER End of Addendum PROCEDURES: Echocardiographic Report: ([id number], [id number]) Transthoracic complete echo with strain imaging and [...] By: Cong Nix M.D. 06/23/2024 1:31:45 PM BUSINESS BANKING RELATIONSHIP MANAGER Electronically Signed By: Cong Nix M.D. 06/23/2024 1:31:45 PM BUSINESS BANKING RELATIONSHIP MANAGER Electronically Amended By: Cong Nix M.D. 07/20/2024 1:51:15 PM CDT [ADDENDUM] Procedure Note Cong Nix MD - 07/20/2024 [facility] Cardiac Diagnostic Lab [address] , [address] [place] [address] Transthoracic Echocardiographic Report Patient Name: SOPHIA HANNA ST : 1990 (34y 2m) Gender: M Study Date: 06/23/2024 08:59:08 AM Ht(Inch): 72 Wt(Lb): 149.91 BSA: 1.86 Hand Profiler: Joanna Mcfarlane RDCS Location: [facility] Order Provider:ERICH INFANTE Heart Rate: 111 [...] index. Previously Signed by:SignedForBoth 06/23/2024 1:31:45 PM BUSINESS BANKING RELATIONSHIP MANAGER and Cong Nix M.D. 06/23/2024 1:31:45 PM BUSINESS BANKING RELATIONSHIP MANAGER End of Addendum PROCEDURES: Echocardiographic Report: ([id number], [id number]) Transthoracic complete echo withstrain imaging and contrast, [...] LA Length 2C 5.59 cm MV Decel Essu401.26 msec [ 104.00 - 258.00 ] LA [...] By: Cong Nix M.D. 06/23/2024 1:31:45 PM BUSINESS BANKING RELATIONSHIP MANAGER Electronically Signed By: Cong Nix M.D. 06/23/2024 1:31:45 PM BUSINESS BANKING RELATIONSHIP MANAGER Electronically Amended By: Cong Nix M.D. 07/20/2024 1:51:15 PM CDT [ADDENDUM] Erich Infante MD CV ECHO PROCEDURES Edit ed Result - Final * POCT lipid panel (04/16/2024 3:29 PM BUSINESS BANKING RELATIONSHIP MANAGER) Cholesterol, POC 170 mg/dL HDL, POC 76 mg/dL Triglycerides, POC 112 mg/dL LDL Cholesterol POC 71 mg/dL Chol/HDL Ratio, POC 2.2 Non-HDL Cholesterol, POC 93 mg/dL Cholesterol Total, POC 170 mg/dL Capillary blood 04/16/2024 3 :29 PM BUSINESS BANKING RELATIONSHIP MANAGER us Tony Mcelroy MD POINT OF CARE TEST ORDERABLES Fi nal Result from Last 3 Months or Most Recently Relevant to Health Maintenance Insurance [facility] ANTHEM ACCESS ANTHEM ACCESS Advance Directives For more information, please contact: [phone] * Full Code (Latest Code Status on File) Date Activated Date Inactivated Comments 08/15/2024 6:12 AM 08/21/2024 6:17 PM Care Teams Scraper Hand Relationship Specialty Start Date End Date Pelon Rodriguez MD [address] [place] [address] [address] [facility] [address] [place] [address] PCP - General Family Medicine 06/23/24 Erich Infante MD [address] [address] Consulting Physician Cardiology 07/26/24 Simran Pruett Primary Hazardous Material Technician 07/26/24
--- OUTSIDE RECORDS SUMMARY | 2024-09-08 01:32 | XMS_ITS | Encounter Summary ---
Author Organization [facility] Address [facility] [place] [address] Care Team Providers Care Gear Hobber Operator Name Role Phone Malcolm Smart MD Primary Care Provider [phone] Erika Carreon NP Primary Care Provider [phone] Tony Mcelroy MD Unavailable Bar Alegria MD Unavailable [phone] Pelon Rodriguez MD Primary Care Provider [phone] Encounter Details Date Type Department Care Team (Late st Contact Info) Description 2024 Therapy Plan [facility] [address] [place] [address] Tony Mcelroy MD [address] [address] Social History Tobacco Use Types [...] from your doctor or pharmacy? Never 09/18/2023 [facility] Utilities Answer Date Recorded In the past 12 months has [employer], oil, or [employer] threatened to shut off services in your [...] How often do you attend chur or caodaism services? 1 to 4 times per year 08/13/2023 Do you belong to any clubs o r organizations such as religion groups, unions, fraternal or athletic groups, or [...] medical care, and heating? Patient declined 10/27/2023 [facility] - Occupational [...] place to sleep or slept in a intermediate (including now)? No 03/29/2023 Housing Stability Vital [...] any time in the past 12 m [facility], were you homeless or living in a intermediate (including now)? Patient declined 10/27/2023 Sex and [...] Diagnoses Diagnosis Chronic systolic heart failure (CMS/HCC [facility])- Primary Chronic systolic heart failure documented in this encounter Care Teams Gear Hobber Operator Relationship Specialty Start Date End Date Malcolm Smart MD [address] [place] [address] PCP - General FAMILY PRACTICE 10/26/23 04/21/24 Erika Carreon NP [address] [place] [phone] PCP - General NURSE PRACTITIONER 04/22/24 08/02/24 Pelon Rodriguez MD [address] [place] [phone] PCP - General FAMILY PRACTICE 08/03/24 Tony Mcelroy MD [address] [facility] [address] [place] [address] CARDIOVASCULAR DISEASE 04/29/24 Bar Alegria MD [address] [facility] [address] [place] [address] INTERNAL MEDICINE 04/29/24 documented as of this encounter
--- OUTSIDE RECORDS SUMMARY | 2024-09-08 01:32 | XMS_ITS | Continuity of Care Document ---
Author Organization [facility] Address [address] [place] [address], [place] [address] Phone Care Team Providers Care Digital Marketing Manager Name Role Phone Eddie Rodney MD Unavailable Unavailable Advance Directives Directive Yes / No Effective Date File Name No Information Encounters Encounter Description Practice Location Reason(s) For Visit Diagnoses Date Provider Providers Copied on Encounter [facility], [address] [place] [address], [id number], tel:[phone] [facility] No Information Rashaun Morgan. [address] [place], [place], [id number], [place]. tel:[phone] Family History Family Member Type Diagnosis Age At Onset No Information Payers Payer name Insurance type Covered libertarian ID Authoriza tion(s) No Information Social History [...]
--- OUTSIDE RECORDS SUMMARY | 2024-09-08 01:32 | XMS_ITS | Clinical Summary ---
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 Indications: sleep disturbance 08/11/19 Active biotin 70009 MCG tabletIndications: supplement Take 10,000 mcg by [...] Team Description 08/16/2024 Home Care Visit [address] [address] Aisha Radford RN CASE COMMUNICATION 08/13/2024 1:00 PM CDT Home Care Visit [address] [address] Minerva Lancaster, RN CASE COMMUNICATION 08/12/2024 1:30 PM CDT Home Care Visit [address] [place] [address] [place] [address] Jes Flores L, OT PATIENT NOT HOME 08/10/2024 1:16 PM CDT - 08/10/2024 11:59 PM CDT Hospital Encounter [facility] [address] [place] [address] Tony Mcelroy MD Discharge Disposition: Home or Self Care (Routine Discharge) 08/10/2024 10:15 AM CDT Home Care Visit [address] [place] [address] Minerva Lancaster, MADHURI SN NON ADMIT SOC 08/10/2024 Orders Only [facility] [address] [place] [address] Tony Mcelroy MD 08/03/[address] [address] [facility] 07/22/2024 1:38 PM CDT - 07/22/2024 2:30 PM CDT Hospital Encounter [facility] [address] [place] [address] Tony Mcelroy MD Discharge Disposition: Home or Self Care (Routine Discharge) 07/22/2024 1:37 PM CDT Hospital Encounter [facility] [address] [place] [address] Tony Mcelroy MD Discharge Disposition: Home or Self Care (Routine Discharge) 07/22/[address] [facility] [address] [place] [address] Mary Ellen Mahmood MD Lab Results (Critical value ) 07/22/2024 Travel 06/24/2024 1:57 PM [facility] [employer] - 06/24/2024 2:52 PM [facility] [employer] Hospital Encounter [facility] [address] [place] [address] Tony Mcelroy MD Discharge Disposition: Home or Self Care (Routine Discharge) 06/24/2024 Travel 06/18/2024 12:07 PM [facility] - 06/18/2024 12:40 PM [facility] [employer] Hospital Encounter [facility] [address] [place] [address] Tony Mcelroy MD Discharge Disposition: Home or Self Care (Routine Discharge) 06/18/2024 Travel from Last 3 Months Family History Medical History Relation Comments [place] Father No Known Problems Mother meninigitis Sister [...] your doctor or pharmacy? Never 09/18/2023 [facility] Utilities Answer Date Recorded In the past 12 months has [facility] [employer] gas, oil, or water [employer] threatened to shut off services in your [...] How often do you attend chur or sikhism services? 1 to 4 times per year 08/13/2023 Do you belong to any clubs o r organizations such as congregation groups, unions, fraProgressus or athletic groups, or school groups? No [...] care, and heating? Patient declined 10/27/2023 [facility] - [...] place to sleep or slept in a fci (including now)? No 03/29/2023 Housing Stability Vital [...] any time in the past 12 m [facility], were you homeless or living in a fci (including now)? 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 PRO-B TYPE NATRIURETIC PEPTIDE 774(H) <125 PG/ML 08/10/2024 2:16 PM CDT [facility] Comment: CUT POINTS ESTABLISHED BY INTERNATIONAL [...] ACUTE CHF. 08/10/2024 11:3 0 AM CDT Tony Mcelroy MD LABORATORY Final Result [facility] [address] [place] [address], * (ABNORMAL) BASIC METABOLIC PANEL (08/10/2024 11:30 AM CDT) GLUCOSE 234(H) 70 - 99 MG/DL 08/10/2024 2:16 PM CDT [facility] BUN 21(H) 7 - 18 MG/DL 08/10/2024 2:16 PM CDT [facility] CREATININE S/P/B 0.74 0.7 - 1.3 MG/DL 08/10/2024 2:16 PM CDT [facility] SODIUM S/P/B 134(L) 136 - 145 MMOL/L 08/10/2024 2:16 PM CDT [facility] POTASSIUM S/P/B 2.9(LL) 3.5 - 5.1 MMOL/L 08/10/2024 2:30 PM CDT [facility] Comment: Critical Result(s) Called at: 14:27:57 on 08/10/2024 by: Rabia Denny to and read back by:VIRGIE BEARD RN HOME HEALTH CHLORIDE S/P/B 92(L) 100 - 108 MMOL/L 08/10/2024 2:16 PM CDT [facility] CO2 34.9(H) 21 - 32 MMOL/L 08/10/2024 2:16 PM CDT [facility] CALCIUM S/P/B 9.5 8.5 - 10.1 MG/DL 08/10/2024 2:16 PM CDT [facility] ANION GAP 7.1 5 - 15 MMOL/L 08/10/2024 2:16 PM CDT [facility] BUN CREATININE RATIO 28.4(H) 6 - 26 08/10/2024 2:16 PM CDT [facility] GFR ESTIMATE >90 >90 ML/MIN/1.7 3 M2 08/10/2024 2:16 PM CDT [facility] Comment: NOTE: eGFR is not calculated for patients <18 years of age. This is an estimated GFR calculation using the new CKD EPI creatinine equation without race and so does not require a correction factor for race. This estimated GFR should not be used for calculating drug doses. 08/10/2024 11:3 0 AM CDT us Tony Mcelroy MD LABORATORY Final Result [facility] [address] [place] [address], * (ABNORMAL) CBC W/DIFF AUTOMATED (08/10/2024 11:30 AM CDT) WBC 6.23 4.4 - 11.0 x10'3/uL 08/10/2024 1:21 PM CDT [facility] RBC 3.49(L) 4.50 - 5.90 x10'6/uL 08/10/2024 1:21 PM CDT [facility] HGB 10.5(L) 14.0 - 17.5 G/DL 08/10/2024 1:21 PM CDT [facility] HCT 32.0(L) 41.5 - 50.4 % 08/10/2024 1:21 PM CDT [facility] MCV 91.7 80.0 - 96.0 FL 08/10/2024 1:21 PM CDT [facility] MCH 30.1 26.5 - 31.4 PG 08/10/2024 1:21 PM CDT [facility] MCHC 32.8 31.9 - 34.8 G/DL 08/10/2024 1:21 PM CDT [facility] RDW 15.6(H) 12.3 - 14.3 % 08/10/2024 1:21 PM T [facility] PLT 155 151 - 353 x10'3/uL 08/10/2024 1:21 PM T [facility] MPV 10.7 9.7 - 11.9 FL 08/10/2024 1:21 PM T [facility] RBC MORPHOLOGY NORMAL 08/10/2024 1:21 PM T [facility] PLT MORPH. NORMAL 08/10/2024 1:21 PM T [facility] WBC MORPHOLOGY NORMAL 08/10/2024 1:21 PM T [facility] LYMPHOCYTES % 19.4 15.8 - 45.0 % 08/10/2024 1:21 PM T [facility] NEUTROPHILS % 69.7 42.1 - 71.9 % 08/10/2024 1:21 PM T [facility] MONOCYTES % 9.0 5.7 - 12.5 % 08/10/2024 1:21 PM [facility] EOSINOPHILS 1.1 0.0 - 5.6 % 08/10/2024 1:21 PM [facility] BASOPHILS 0.5 0.0 - 1.3 % 08/10/2024 1:21 PM T [facility] ABS. NEUTROPHILS 4.34 1.40 - 6.00 x10'3/uL 08/10/2024 1:21 PM T [facility] IMMATURE GRANS % 0.3 0.0 - 0.5 % 08/10/2024 1:21 PM T [facility] ABS. LYMPHOCYTES 1.21 0.80 - 4.70 x10'3/uL 08/10/2024 1:21 PM CDT [facility] 08/10/2024 11:3 0 AM CDT us Tony Mcelroy MD LABORATORY Final Result [facility] [address] [place] [address], [place] [phone] * (ABNORMAL) COMPREHENSIVE METABOLIC PANEL (07/22/2024 2:15 PM CDT) Only the most recent of2 resultswithin the time period is included. GLUCOSE 474(HH) 70 - 99 MG/DL 07/22/2024 3:37 PM CDT [facility] Comment: Critical Result(s) Called at: 15:31:41 on 07/22/2024 by: KEI FORBES to and read back by: MAGDALENA DANIELS [employer] BUN 25(H) 7 - 18 MG/DL 07/22/2024 3:37 PM CDT [facility] CREATININE S/P/B 1.07 0.7 - 1.3 MG/DL 07/22/2024 3:37 PM CDT [facility] SODIUM S/P/B 132(L) 136 - 145 MMOL/L 07/22/2024 3:37 PM CDT [facility] POTASSIUM S/P/B 5.2(H) 3.5 - 5.1 MMOL/L 07/22/2024 3:37 PM CDT [facility] CHLORIDE S/P/B 98(L) 100 - 108 MMOL/L 07/22/2024 3:37 PM CDT [facility] CO2 27.3 21 - 32 MMOL/L 07/22/2024 3:37 PM CDT [facility] CALCIUM S/P/B 9.0 8.5 - 10.1 MG/DL 07/22/2024 3:37 PM CDT [facility] BILIRUBIN TOTAL S/P/B 0.2 0.2 - 1.2 MG/DL 07/22/2024 3:37 PM T [facility] TOTAL PROTEIN S/P/B 6.3(L) 6.4 - 8.2 G/DL 07/22/2024 3:37 PM T [facility] ALBUMIN S/P/B 3.7 3.4 - 5.0 G/DL 07/22/2024 3:37 PM T [facility] AST 13(L) 15 - 37 U/L 07/22/2024 3:37 PM [facility] ALT 24 16 - 60 U/L 07/22/2024 3:37 PM [facility] ALKALINE PHOSPHATASE S/P/B 55 50 - 136 U/L 07/22/2024 3:37 PM [facility] ANION GAP 6.7 5 - 15 MMOL/L 07/22/2024 3:37 PM [facility] BUN CREATININE RATIO 23.4 6 - 26 07/22/2024 3:37 PM [facility] A/G RATIO 1.4 1.0 - 2.0 RATIO 07/22/2024 3:37 PM [facility] GFR ESTIMATE >90 >90 ML/MIN/1.7 3 M2 07/22/2024 3:37 PM [facility] Comment: NOTE: eGFR is not calculated for patients <18 years of age. This is an estimated GFR calculation using the new CKD EPI creatinine equation without race and so does not require a correction factor for race. This estimated GFR should not be used for calculating drug doses. 07/22/2024 2:15 PM CDT us Mary Ellen Mahmood MD LABORATORY Final Result [facility] [address] [place] [address], from Last 3 Months Insurance [facility] Advance Directives * Full Code [...] 9:04 PM 09/09/2023 6:46 PM Care Teams Web Search Evaluator Relationship Specialty Start Date End Date Pelon Rodriguez MD [address] [place] [address] [address] [place] [address] PCP - General FAMILY PRACTICE 08/03/24 Tony Mcelroy MD [facility] [address] [facility] Jordan [address] [facility] [place] [address] CARDIOVASCULAR DISEASE 04/29/24 Bar Alegria MD [address] [facility] [address] [place] [address] INTERNAL MEDICINE 04/29/24
--- OUTSIDE RECORDS SUMMARY | 2024-09-08 01:32 | XMS_ITS | Clinical Summary ---
Author Organization [facility] [email or web address] Address [address] [place] [address] Care Team Providers Care Geotechnician Name Role Phone An Kamara INO-ALARM INSTALLER Primary Care Provider + Source Comments [facility] [email or web address],non-owned Affiliates and Associated Physician Practices is amultiple site organization consisting of ambulatory clinics and hospital sitesin [place], [place], [place] and [place]. This disclosure is being madepursuant to the Care Everywhere program and may not contain all information available regarding this patient. Last updated 18.[facility] [email or web address] Allergies Active Allergy Reactions Criticality Noted Date [...] Reasons: Diabetes 1 Each 07/09/2024 12:25 PM TECHNICAL INSTRUCTOR 5 Active blood glucose test stripIndicatio ns:Diabetes Mellitus USE 1 STRIP ONCE DAILY 100 strip 1 07/09/2024 12:25 PM TECHNICAL INSTRUCTOR 5 Active lancetsIndicat ions:Diabetes Mellitus USE 1 LANCET ONCE DAILY 100 Each 1 07/09/2024 12:25 PM TECHNICAL INSTRUCTOR 5 Active Insulin Pen Needle 32G X 4 MM MISCIndication s:Diabetes Mellitus Use 1 Each ONCE DAILY 100 Each 1 07/09/2024 12:25 PM TECHNICAL INSTRUCTOR 5 Active milrinone (Primacor) 20-5 MG/100ML-% infusion 6.35 mcg/min by Intravenous route continuous 5 Active pantoprazole EC (Protonix) 40 MG tablet Take 1 (one) tablet by mouth 2 times daily 30 tablet 5 Active Lantus SoloStar pen Inject 5 (five) Units subcutaneously at bedtime If blood glucose greater than 140 15 mL 07/09/2024 12:25 PM TECHNICAL INSTRUCTOR Active Active Problems Problem Noted Date Diagnosed [...] Department Care Team Description 07/07/2024 4:31 PM TECHNICAL INSTRUCTOR Anesthesia Event [facility] [address] [place] [address] Tacho Pelaez DO Brown, Gina F, MD 07/07/2024 3:44 PM TECHNICAL INSTRUCTOR - 07/07/2024 4:14 PM TECHNICAL INSTRUCTOR Surgery [facility] [address] [place] [address] Moy Zarco MD EGD(>1630) 06/30/2024 2:11 PM TECHNICAL INSTRUCTOR - 07/09/2024 1:53 PM TECHNICAL INSTRUCTOR Hospital Encounter [facility] 6S ACUTE [address] [place] [address] Daryl Julian MD Heis, Farah, MD [place], [...] and heating? Not hard at all 07/02/2024 [facility] - [...] place to sleep or slept in a assisted (including now)? No 02/09/2024 Housing Stability Vital Sign Answer Bryan e Recorded In the last 12 months, was t here a time when you were not able to pay the mortgage or rent on time? Yes 07/02/2024 In the past 12 months, how m any times have you moved where you were living? 2 07/02/2024 At any time in the past 12 m [facility], were you homeless or living in a assisted (including now)? Yes 07/02/2024 Sex and Gender Information Value Date Recorded Sex Assigned at Not on file Legal Sex Male 11:36 AM CDT Gender Identity Not on file Sexual Orientation Not on file Last Filed Vital Signs Vital Sign Reading Time Taken Comments Blood Pressure 92/64 07/09/2024 4:46 AM TECHNICAL INSTRUCTOR Pulse 83 07/09/2024 4:46 AM TECHNICAL INSTRUCTOR Temperature 36.9 C (98.5 F) 07/09/2024 4:46 AM TECHNICAL INSTRUCTOR Respiratory Rate 20 07/09/2024 4:46 AM TECHNICAL INSTRUCTOR Oxygen Saturation 99% 07/09/2024 12: 22 PM TECHNICAL INSTRUCTOR Inhaled Oxygen Concentration 40% 02/09/2024 9 :00 AM CDT Weight 61.1 kg (134 lb 12.8 oz) 07/08/2024 6:32 AM TECHNICAL INSTRUCTOR Height 182.9 cm (6') 06/30/2024 8:17 PM TECHNICAL INSTRUCTOR Body Mass Index 18.28 06/30/2024 8:17 PM TECHNICAL INSTRUCTOR Plan of Treatment Health Maintenance Due Date [...] this topic Medical Devices Implanted Type Area Grid Molder Device Identifier Shelf Expiration Date Model / Serial / Lot Set Vntrc Ast 17.4x13.8in Impella Cp 9.3 - [id number] Implanted:Qty: 1 on 02/01/2024 by Latha Mahmood MD at [facility] [employer] 10/02/2025 [id number] / [id number] / [id number] Graft Cv 10mm 30cm [facility] [address] Polystr 2 Vlr - [id number] Implanted:Qty: 1 on 02/05/2024 by Heriberto Choudhary MD at [facility] [employer] 10/02/2028 [id number] / [id number] Dev Vntrc Ast Impella 5.5 Smartassist Implanted:Qty: 1 on 02/05/2024 by Heriberto Choudhary MD at [facility] N/A: Heart [employer] 10/02/2025 [id number] / / Patch Cv 8x.8cm [employer] Decellularized Implanted:Qty: 1 on 02/05/2024 by Heriberto Choudhary MD at [facility] Left: Arterial [employer] [id number] 04/19/2025 PFP0.8X8 / / [id number] Description:implanted in lef t femoral artery and left subclavian artery Procedures Procedure Name Priority Date/Time Associated Diagnosis Comments PREPARE RBC LEUKOREDUCED UNIT Routine 07/10/2024 1:17 AM TECHNICAL INSTRUCTOR GLUCOSE - POINT OF CARE Routine 07/09/2024 11:52 AM TECHNICAL INSTRUCTOR GLUCOSE - POINT OF CARE Routine 07/09/2024 8:25 AM TECHNICAL INSTRUCTOR HEMOGLOBIN AM Draw 07/09/2024 6:01 AM TECHNICAL INSTRUCTOR COMPREHENSIVE METABOLIC PANEL AM Draw 07/09/2024 12:13 AM TECHNICAL INSTRUCTOR Idiopathic acute pancreatitis, unspecified complication status HEMOGLOBIN AM Draw 07/09/2024 12:13 AM TECHNICAL INSTRUCTOR HEMOGLOBIN AM Draw 07/08/2024 6:44 PM TECHNICAL INSTRUCTOR GLUCOSE - POINT OF CARE Routine 07/08/2024 5:34 PM TECHNICAL INSTRUCTOR HEMOGLOBIN AM Draw 07/08/2024 12:15 PM TECHNICAL INSTRUCTOR GLUCOSE - POINT OF CARE Routine 07/08/2024 11:56 AM TECHNICAL INSTRUCTOR GLUCOSE - POINT OF CARE Routine 07/08/2024 7:35 AM TECHNICAL INSTRUCTOR HEMOGLOBIN AM Draw 07/08/2024 6:29 AM TECHNICAL INSTRUCTOR COMPREHENSIVE METABOLIC PANEL AM Draw 07/08/2024 12:17 AM TECHNICAL INSTRUCTOR Idiopathic acute pancreatitis, unspecified complication status HEMOGLOBIN AM Draw 07/08/2024 12:17 AM TECHNICAL INSTRUCTOR GLUCOSE - POINT OF CARE Routine 07/07/2024 10:17 PM TECHNICAL INSTRUCTOR HEMOGLOBIN AM Draw 07/07/2024 5:53 PM TECHNICAL INSTRUCTOR PATHOLOGY TISSUE Routine 07/07/2024 4:39 PM TECHNICAL INSTRUCTOR Gastrointestinal hemorrhage, unspecified gastrointestinal hemorrhage type TN ED EGD FLEX TRANSORAL DX 07/07/2024 4:26 PM TECHNICAL INSTRUCTOR Gastrointestinal hemorrhage, unspecified gastrointestinal hemorrhage type EGD Routine 07/07/2024 4:14 PM TECHNICAL INSTRUCTOR GLUCOSE - POINT OF CARE Routine 07/07/2024 4:07 PM TECHNICAL INSTRUCTOR GLUCOSE - POINT OF CARE Routine 07/07/2024 11:57 AM TECHNICAL INSTRUCTOR HEMOGLOBIN AM Draw 07/07/2024 11:21 AM TECHNICAL INSTRUCTOR GLUCOSE - POINT OF CARE Routine 07/07/2024 7:31 AM TECHNICAL INSTRUCTOR HEMOGLOBIN AM Draw 07/07/2024 5:57 AM TECHNICAL INSTRUCTOR COMPREHENSIVE METABOLIC PANEL AM Draw 07/07/2024 1:25 AM TECHNICAL INSTRUCTOR Idiopathic acute pancreatitis, unspecified complication status HEMOGLOBIN AM Draw 07/07/2024 1:25 AM TECHNICAL INSTRUCTOR HEMOGLOBIN AM Draw 07/06/2024 8:00 PM TECHNICAL INSTRUCTOR GLUCOSE - POINT OF CARE Routine 07/06/2024 5:[address] ANGIO ABDOMEN PELVIS STAT 07/06/2024 4:53 PM TECHNICAL INSTRUCTOR Idiopathic acute pancreatitis, unspecified complication status Anemia, unspecified type PREPARE RBC LEUKOREDUCED UNIT Routine 07/06/2024 4:18 PM TECHNICAL INSTRUCTOR JOHN DIRECT STAT 07/06/2024 2:46 PM TECHNICAL INSTRUCTOR TYPE + SCREEN PANEL Routine 07/06/2024 2 :46 PM TECHNICAL INSTRUCTOR HAPTOGLOBIN STAT 07/06/2024 2:46 PM TECHNICAL INSTRUCTOR VITAMIN B12 BRENDA 07/06/2024 2:46 PM TECHNICAL INSTRUCTOR FOLATE BRENDA 07/06/2024 2:46 PM TECHNICAL INSTRUCTOR IRON + TRANSFERRIN PANEL STAT 07/06/2024 2:46 PM TECHNICAL INSTRUCTOR FERRITIN BRENDA 07/06/2024 2:46 PM TECHNICAL INSTRUCTOR RETIC COUNT STAT 07/06/2024 2:46 PM TECHNICAL INSTRUCTOR BILIRUBIN TOTAL+DIRECT BLOOD PANEL STAT 07/06/2024 2:46 PM TECHNICAL INSTRUCTOR LDH BLOOD STAT 07/06/2024 2:46 PM TECHNICAL INSTRUCTOR CBC W AUTO DIFFERENTIAL STAT 07/06/2024 11:50 AM TECHNICAL INSTRUCTOR GLUCOSE - POINT OF CARE Routine 07/06/2024 11:25 AM TECHNICAL INSTRUCTOR GLUCOSE - POINT OF CARE Routine 07/06/2024 7:59 AM TECHNICAL INSTRUCTOR PHOSPHORUS BLOOD Routine 07/06/2024 4:32 AM TECHNICAL INSTRUCTOR MAGNESIUM BLOOD Routine 07/06/2024 4:32 AM TECHNICAL INSTRUCTOR CBC W/O DIFFERENTIAL AM Draw 07/06/2024 4:32 AM TECHNICAL INSTRUCTOR COMPREHENSIVE METABOLIC PANEL AM Draw 07/06/2024 4:32 AM TECHNICAL INSTRUCTOR Idiopathic acute pancreatitis, unspecified complication status GLUCOSE - POINT OF CARE Routine 07/05/2024 4:34 PM TECHNICAL INSTRUCTOR C-PEPTIDE Routine 07/05/2024 1:52 PM TECHNICAL INSTRUCTOR LIPASE BLOOD Routine 07/05/2024 1:52 PM TECHNICAL INSTRUCTOR HEMOGLOBIN A1C Routine 07/05/2024 1:52 PM TECHNICAL INSTRUCTOR GLUCOSE - POINT OF CARE Routine 07/05/2024 12:15 PM TECHNICAL INSTRUCTOR GLUCOSE - POINT OF CARE Routine 07/05/2024 10:55 AM TECHNICAL INSTRUCTOR XR CHEST 1VW PORTABLE Routine 07/05/2024 9:52 AM TECHNICAL INSTRUCTOR Idiopathic acute pancreatitis, unspecified complication status PT EVAL AND TREAT Routine 07/05/2024 8:4 9 AM TECHNICAL INSTRUCTOR EKG 12-LEAD Routine 07/05/2024 8:40 AM TECHNICAL INSTRUCTOR Idiopathic acute pancreatitis, unspecified complication status GLUCOSE - POINT OF CARE Routine 07/05/2024 8:02 AM TECHNICAL INSTRUCTOR COMPREHENSIVE METABOLIC PANEL AM Draw 07/05/2024 1:55 AM TECHNICAL INSTRUCTOR Idiopathic acute pancreatitis, unspecified complication status COMPREHENSIVE METABOLIC PANEL AM Draw 07/04/2024 2:45 AM TECHNICAL INSTRUCTOR Idiopathic acute pancreatitis, unspecified complication status CBC W/O DIFFERENTIAL AM Draw 07/03/2024 1:12 AM TECHNICAL INSTRUCTOR PHOSPHORUS BLOOD Routine 07/03/2024 1:1 2 AM TECHNICAL INSTRUCTOR MAGNESIUM BLOOD Routine 07/03/2024 1:12 AM TECHNICAL INSTRUCTOR COMPREHENSIVE METABOLIC PANEL AM Draw 07/03/2024 1:12 AM TECHNICAL INSTRUCTOR Idiopathic acute pancreatitis, unspecified complication status XR ABDOMEN KUB PORTABLE STAT 07/02/2024 8:41 AM TECHNICAL INSTRUCTOR Ileus CBC W/O DIFFERENTIAL AM Draw 07/02/2024 1:13 AM TECHNICAL INSTRUCTOR Ileus MAGNESIUM BLOOD Routine 07/02/2024 1:13 AM TECHNICAL INSTRUCTOR Ileus COMPREHENSIVE METABOLIC PANEL AM Draw 07/02/2024 1:13 AM TECHNICAL INSTRUCTOR Idiopathic acute pancreatitis, unspecified complication status XR ABDOMEN KUB PORTABLE STAT 07/01/2024 1:12 PM TECHNICAL INSTRUCTOR Ileus HEPATIC FUNCTION PANEL Routine 07/01/2024 4:22 AM TECHNICAL INSTRUCTOR Idiopathic acute pancreatitis, unspecified complication status PHOSPHORUS BLOOD Routine 07/01/2024 4:22 AM TECHNICAL INSTRUCTOR Idiopathic acute pancreatitis, unspecified complication status MAGNESIUM BLOOD Routine 07/01/2024 4:22 AM TECHNICAL INSTRUCTOR Idiopathic acute pancreatitis, unspecified complication status CBC W/O DIFFERENTIAL Routine 07/01/2024 4:22 AM TECHNICAL INSTRUCTOR Idiopathic acute pancreatitis, unspecified complication status BASIC METABOLIC PANEL (CALCIUM TOTAL) Routine 07/01/2024 4:22 AM TECHNICAL INSTRUCTOR Idiopathic acute pancreatitis, unspecified complication status EKG 12-LEAD Routine 07/01/2024 3:16 AM TECHNICAL INSTRUCTOR Idiopathic acute pancreatitis, unspecified complication status EKG 12-LEAD Routine 07/01/2024 3:14 AM TECHNICAL INSTRUCTOR Idiopathic acute pancreatitis, unspecified complication status EKG 12-LEAD Routine 07/01/2024 3:02 AM TECHNICAL INSTRUCTOR Idiopathic acute pancreatitis, unspecified complication status CT ABDOMEN PELVIS W CONTRAST STAT 06/30/2024 5:02 PM TECHNICAL INSTRUCTOR Abdominal pain, unspecified abdominal location TROPONIN-I HIGH SENSITIVE REFLEX 1HOUR Timed 06/30/2024 3:57 PM TECHNICAL INSTRUCTOR URINE DRUG SCREEN IMMUNOASSAY STAT 06/30/2024 2:52 PM TECHNICAL INSTRUCTOR URINALYSIS REFLEX TO MICROSCOPIC NO CULTURE STAT 06/30/2024 2:52 PM TECHNICAL INSTRUCTOR ALCOHOL ETHYL BLOOD STAT 06/30/2024 2 :48 PM TECHNICAL INSTRUCTOR B-TYPE NATRIURETIC PEPTIDE STAT 06/30/2024 2:48 PM TECHNICAL INSTRUCTOR TROPONIN-I HIGH SENSITIVE BASELINE + 1HR STAT 06/30/2024 2:48 PM TECHNICAL INSTRUCTOR PT-INR SLH STAT 06/30/2024 2:48 PM TECHNICAL INSTRUCTOR MAGNESIUM BLOOD STAT 06/30/2024 2:48 PM TECHNICAL INSTRUCTOR LIPASE BLOOD STAT 06/30/2024 2:48 PM TECHNICAL INSTRUCTOR LACTIC ACID BLOOD REFLEX TO REPEAT STAT 06/30/2024 2:48 PM TECHNICAL INSTRUCTOR COMPREHENSIVE METABOLIC PANEL STAT 06/30/2024 2:48 PM TECHNICAL INSTRUCTOR CBC W AUTO DIFFERENTIAL STAT 06/30/2024 2:48 PM TECHNICAL INSTRUCTOR EKG 12-LEAD STAT 06/30/2024 2:33 PM TECHNICAL INSTRUCTOR Chest pain, unspecified type XR CHEST 1VW PORTABLE STAT 06/30/2024 2:21 PM TECHNICAL INSTRUCTOR Chest pain, unspecified type HIV-1 HIV-2 ANTIBODY + HIV P24 AG PANEL Routine 02/03/2024 8:26 PM CDT from Last 3 Months or Most Recently Relevant to Health Maintenance Results * PREPARE (CROSSMATCH) RBC UNIT(S), 1 Units (07/10/2024 1:17 AM TECHNICAL INSTRUCTOR) Only the most recent of2 resultswithin the time period is included. Pathologist [facility] Unit Description N/A [facility] Blood Bank BLOOD SPECIMEN / Unknown 07/06/2024 2:55 PM TECHNICAL INSTRUCTOR Christiano Graham MD LAB - BLOOD BANK ORDERA BLES Final Result [facility] [address] [place] [address], [facility] [phone] * (ABNORMAL) GLUCOSE - POINT OF CARE (07/09/2024 11:52 AM TECHNICAL INSTRUCTOR) Only the most recent of16 resultswithin the time period is included. Pathologist [facility] Glucose WB/POC 203(H) 70 - 99 mg/dL 07/09/2024 12:00 PM TECHNICAL INSTRUCTOR [facility] Specimen Type Cap Fingerstick 2024 12:00 PM TECHNICAL INSTRUCTOR [facility] Blood BLOOD SPECIMEN / Unknown 07/09/2024 11:52 AM TECHNICAL INSTRUCTOR 07/09/2024 12:00 PM TECHNICAL INSTRUCTOR us Piotr Christine MD LAB - POINT OF CARE ORDERAB LES Final Result Performing Organization Address City/[facility]/ZIP Co de Phone Number [facility] [address] [place] [address], [place] [phone] * (ABNORMAL) HEMOGLOBIN (07/09/2024 6:01 AM TECHNICAL INSTRUCTOR) Only the most recent of11 resultswithin the time period is included. Hemoglobin 7.7(L) 13.3 - 17.5 g/dL 07/09/2024 6:14 AM [facility] Blood BLOOD SPECIMEN / Unknown Venipuncture / Unknown 07/09/2024 6:01 AM TECHNICAL INSTRUCTOR 07/09/2024 6:05 AM TECHNICAL INSTRUCTOR us Christiano Graham MD LAB - HEMATOLOGY ORDERA BLES Final Result Performing Organization Address City/[facility]/ZIP Co de Phone Number [facility] [address] [place] [address], [place] [phone] * (ABNORMAL) COMPREHENSIVE METABOLIC PANEL (07/09/2024 12:13 AM TECHNICAL INSTRUCTOR) Only the most recent of9 resultswithin the time period is included. BUN 18 7 - 26 mg/dL 07/09/2024 12:40 AM [facility] Creatinine 0.90 0.71 - 1.16 mg/dL 07/09/2024 12:40 AM [facility] Sodium 137 136 - 145 mmol/L 07/09/2024 12:40 AM [facility] Potassium 4.5 3.5 - 4.5 mmol/L 07/09/2024 12:40 AM [facility] Chloride 101 98 - 107 mmol/L 07/09/2024 12:40 AM [facility] CO2 29 22 - 29 mmol/L 07/09/2024 12:40 AM [facility] Glucose 241(H) 70 - 99 mg/dL 07/09/2024 12:40 AM [facility] Calcium 9.0 8.4 - 10.2 mg/dL 07/09/2024 12:40 AM [facility] Protein Total 5.6(L) 6.0 - 8.3 g/dL 07/09/2024 12:40 AM [facility] Albumin 3.7 3.4 - 5.0 g/dL 07/09/2024 12:40 AM [facility] Bilirubin Total 0.2 0.2 - 1.2 mg/dL 07/09/2024 12:40 AM [facility] Alkaline Phosphatase 47 40 - 150 U/L 07/09/2024 12:40 AM [facility] ALT 33 5 - 55 U/L 07/09/2024 12:40 AM [facility] AST 25 5 - 34 U/L 07/09/2024 12:40 AM [facility] Anion Gap 7 6 - 16 07/09/2024 12:40 AM [facility] BUN/Creatinine Ratio 20 7 - 23 07/09/2024 12:40 AM [facility] Osmolality Calculated 294 275 - 295 mOsm/kg 07/09/2024 12:40 AM [facility] Albumin/Globulin Ratio 1.9 1.1 - 2.3 07/09/2024 12:40 AM [facility] eGFR by CKD-EPI >90 >=90 mL/min/1.7 3 m2 07/09/2024 12:40 AM [facility] Blood BLOOD SPECIMEN / Unknown Venipuncture / Unknown 07/09/2024 12:13 AM TECHNICAL INSTRUCTOR 07/09/2024 12:16 AM TECHNICAL INSTRUCTOR us Jamel Cavazos MD LAB - CHEMISTRY ORDERABLES Fin al Result [facility] [address] [place] [address], [facility] [phone] * PATHOLOGY TISSUE (07/07/2024 4:39 PM TECHNICAL INSTRUCTOR) Case Report Surgical Pathology Report Case: [id number] Authorizing Provider: Moy Zarco MD Collected: 07/07/2024 04:39 PM Ordering Location: [facility] Received: 07/08/2024 07:20 AM Pathologist: Yaquelin Shook MD Specimen: Gastric, Biopsy - R/O H pylori 07/09/2024 3:19 PM [facility] Final Diagnosis Stomach, biopsy (A): - Reactive gastropathy and ulcer debris - Negative for H. pylori 07/09/2024 3:19 PM [facility] Microscopic Description and Comment The [...] controls), which is negative. 07/09/2024 3:19 PM [facility] Clinical History The patient is a 34-year-old man with melena. Operative procedure/findings: EGD - nonbleeding gastric ulcer at the pylorus with pigmented material and mild erosive gastritis, biopsied to rule out H. pylori 07/09/2024 3:19 PM [facility] Gross Description The requisition and specimen(s) are identified with the patient's name Douglas Wright . Received in formalin, specimen A, consists of multiple guy-pink irregular tissue fragments averaging 0.2 cm in greatest dimension and aggregating to 0.5 x 0.4 x 0.1 cm which are submitted in toto in a single cassette labeled A1. RB 07/09/2024 3:19 PM [facility] Pathologist Location at [facility] 07/09/2024 3:19 PM [facility] Disclaimer The performance characteristics of all immunohistochemical and indirect immunofluorescence stains (if any) cited in this report were determined by the Histopathology Laboratory of [facility]. Some of these tests were [...] the attending (teaching) pathologist. 07/09/2024 3:19 PM TECHNICAL INSTRUCTOR [facility] Embedded Images 07/09/2024 3:19 PM TECHNICAL INSTRUCTOR [facility] Biopsy, NOS GASTRIC CONTENTS SPECIMEN / Unknown 07/07/2024 4:39 PM TECHNICAL INSTRUCTOR 07/08/2024 7:20 AM TECHNICAL INSTRUCTOR Comment:Pre-op diagnosis: Gastrointestinal hemorrhage, unspecified gastrointestinal hemorrhage type [K92.2] us Moy Zarco MD LAB - PATHOLOGY/CYTOLOGY SHREYA BOJORQUEZ Final Result Performing Organization Address City/State/[facility] Co de Phone Number [facility] [address] [phone] * EGD (07/07/2024 4:14 PM TECHNICAL INSTRUCTOR) Report Endoscopy POC Endoscopy Department Report __ [...] non-montero portions. 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 All rights reserved. The codes documented in this report are preliminary and upon parliamentary counsel review may be revised to meet current compliance requirements. Moy Zarco MD 07/07/2024 5:01:11 PM Note Initiated On: 07/07/2024 4:14 PM Number of Addenda: 0 [facility] [address] [place] [id number] [facility] 07/07/2024 4:14 PM TECHNICAL INSTRUCTOR us Clayton Chowdary MD GI PROCEDURE ORDERABLES Edited R esult - Final [facility] * TRANSFUSE RED BLOOD CELL LEUKOREDUCED UNIT(S) (07/06/2024 7:32 PM TECHNICAL INSTRUCTOR) us Christiano Graham MD NURSING - BLOOD PROD TR ANSFUSION Final Result * CT Angio Abdomen Pelvis (07/06/2024 4:53 PM TECHNICAL INSTRUCTOR) Anatomical Region Laterality Modality Abdomen, Pelvis Computed Tomogra phy 07/06/2024 5:20 PM TECHNICAL INSTRUCTOR Impressions 07/06/2024 5:51 PM TECHNICAL INSTRUCTOR Impression: 1.Redemonstration of pancreatic atrophic appearance with [...] 07/06/2024 5:51 PM Narrative 07/06/2024 5:51 PM TECHNICAL INSTRUCTOR PROCEDURE: CT ANGIO ABDOMEN PELVIS, DATE/TIME OF EXAM: 07/06/2024 4:54 PM, LOCATION [facility] INDICATION: K85.00: Idiopathic acute pancreatitis, unspecified [...] PELVIS, DATE/TIME OF EXAM: 07/06/2024 4:54PM, LOCATION [facility] INDICATION: K85.00: Idiopathic acute pancreatitis, unspecified [...] TYPE + SCREEN PANEL (07/06/2024 2:46 PM TECHNICAL INSTRUCTOR) Pathologist [facility] Antibody Screen NEG 4:07 PM TECHNICAL INSTRUCTOR [facility] ABO Rh A POS 07/06/2024 4:07 PM TECHNICAL INSTRUCTOR [facility] Blood Bank BLOOD SPECIMEN / Unknown Venipuncture / Unknown 07/06/2024 2:46 PM TECHNICAL INSTRUCTOR 07/06/2024 3:58 PM TECHNICAL INSTRUCTOR Christiano Graham MD LAB - BLOOD BANK ORDERA BLES Final Result [facility] [address] [place] [address], [place] [phone] * DIRECT JOHN (07/06/2024 2:46 PM TECHNICAL INSTRUCTOR) Pathologist [facility] Direct John (BRYAN) NEG 07/06/2024 3:54 PM TECHNICAL INSTRUCTOR [facility] Blood BLOOD SPECIMEN / Unknown Venipuncture / Unknown 07/06/2024 2:46 PM TECHNICAL INSTRUCTOR 07/06/2024 2:55 PM TECHNICAL INSTRUCTOR Result [facility] Christiano Graham MD LAB - BLOOD BANK ORDERA BLES Final Result Performing Organization Address [facility]/ZIP Co de Phone Number [facility] [address] [place] [address], [facility] [phone] * (ABNORMAL) RETIC COUNT (07/06/2024 2:46 PM TECHNICAL INSTRUCTOR) Reticulocyte Percent 4.48(H) 0.50 - 2.40 % 07/06/2024 3:05 PM [facility] Reticulocyte Absolute 0.0869 0.0200 - 0.1100 x10E6/uL 07/06/2024 3:05 PM [facility] Ret-HE 36.6 29.0 - 37.9 pg 07/06/2024 3:05 PM [facility] Immature Reticulocyte Fraction 18.2(H) 1.8 - 15.2 % 07/06/2024 3:05 PM [facility] Blood BLOOD SPECIMEN / Unknown Venipuncture / Unknown 07/06/2024 2:46 PM TECHNICAL INSTRUCTOR 07/06/2024 2:52 PM TECHNICAL INSTRUCTOR Result [facility] Christiano Graham MD LAB - HEMATOLOGY ORDERA BLES Final Result Performing Organization Address City/[facility]/ZIP Co de Phone Number [address] [address], [place] [phone] * LDH BLOOD (07/06/2024 2:46 PM TECHNICAL INSTRUCTOR) Pathologist [facility] LDH Total 227 125 - 243 Units/L 07/06/2024 3:22 PM [facility] Blood BLOOD SPECIMEN / Unknown Venipuncture / Unknown 07/06/2024 2:46 PM TECHNICAL INSTRUCTOR 07/06/2024 2:52 PM TECHNICAL INSTRUCTOR Result [facility] Christiano Graham MD LAB - CHEMISTRY ORDERAB LES Final Result [address] [address], [place] [phone] * FOLATE (07/06/2024 2:46 PM TECHNICAL INSTRUCTOR) [facility] Folate 17.8 7.0 - 31.4 ng/mL 07/06/2024 3:54 PM TECHNICAL INSTRUCTOR [facility] Blood BLOOD SPECIMEN / Unknown Venipuncture / Unknown 07/06/2024 2:46 PM TECHNICAL INSTRUCTOR 07/06/2024 2:52 PM TECHNICAL INSTRUCTOR Christiano Graham MD LAB - CHEMISTRY ORDERAB LES Final Result Performing Organization Address [facility]/ZIP Co de Phone Number [address] [address], [place] [phone] * BILIRUBIN TOTAL+DIRECT BLOOD PANEL (07/06/2024 2:46 PM TECHNICAL INSTRUCTOR) [facility] Bilirubin Total 0.2 0.2 - 1.2 mg/dL 08/2024 3:22 PM TECHNICAL INSTRUCTOR [facility] Bilirubin Conjugated 0.1 0.1 - 0.5 mg/dL 07/06/2024 3:22 PM [facility] Bilirubin Unconjugated 0.1 Unconjugated Bilirubin is a calculated value: Reference ranges have not been established. mg/dL 07/06/2024 3:22 PM TECHNICAL INSTRUCTOR [facility] Blood BLOOD SPECIMEN / Unknown Venipuncture / Unknown 07/06/2024 2:46 PM TECHNICAL INSTRUCTOR 07/06/2024 2:52 PM TECHNICAL INSTRUCTOR us Christiano Graham MD LAB - CHEMISTRY ORDERAB LES Final Result Performing Organization Address City/[facility]/ZIP Co de Phone Number [address] [address], [place] [phone] * (ABNORMAL) VITAMIN B12 (07/06/2024 2:46 PM TECHNICAL INSTRUCTOR) [facility] Vitamin B12 1,641(H) 213 - 816 pg/mL 07/06/2024 3:54 PM TECHNICAL INSTRUCTOR [facility] Blood BLOOD SPECIMEN / Unknown Venipuncture / Unknown 07/06/2024 2:46 PM TECHNICAL INSTRUCTOR 07/06/2024 2:52 PM TECHNICAL INSTRUCTOR us Christiano Graham MD LAB - CHEMISTRY ORDERAB LES Final Result Performing Organization Address [facility]/ZIP Co de Phone Number [address] [address], [place] [phone] * (ABNORMAL) IRON + TRANSFERRIN PANEL (07/06/2024 2:46 PM TECHNICAL INSTRUCTOR) Iron 47(L) 50 - 175 ug/dL 07/06/2024 3:51 PM [facility] Transferrin 210 174 - 382 mg/dL 07/06/2024 3:51 PM [facility] Transferrin Saturation % 18 16 - 50 % 07/06/2024 3:51 PM [facility] TIBC Calculated 263 240 - 450 ug/dL 07/06/2024 3:51 PM TECHNICAL INSTRUCTOR [facility] Blood BLOOD SPECIMEN / Unknown Venipuncture / Unknown 07/06/2024 2:46 PM TECHNICAL INSTRUCTOR 07/06/2024 2:49 PM TECHNICAL INSTRUCTOR us Christiano Graham MD LAB - CHEMISTRY ORDERAB LES Final Result Performing Organization Address City/[facility]/ZIP Co de Phone Number [address] [address], [place] [phone] * HAPTOGLOBIN (07/06/2024 2:46 PM TECHNICAL INSTRUCTOR) Haptoglobin 54 14 - 258 mg/dL 07/06/2024 3:51 PM [facility] Blood BLOOD SPECIMEN / Unknown Venipuncture / Unknown 07/06/2024 2:46 PM TECHNICAL INSTRUCTOR 07/06/2024 2:49 PM TECHNICAL INSTRUCTOR us Christiano Graham MD LAB - CHEMISTRY ORDERAB LES Final Result [facility] [address] [place] [address], [facility] [phone] * FERRITIN (07/06/2024 2:46 PM TECHNICAL INSTRUCTOR) [facility] Ferritin 146 22 - 275 ng/mL 07/06/2024 4:06 PM [facility] Blood BLOOD SPECIMEN / Unknown Venipuncture / Unknown 07/06/2024 2:46 PM TECHNICAL INSTRUCTOR 07/06/2024 2:49 PM TECHNICAL INSTRUCTOR us Christiano Graham MD LAB - CHEMISTRY ORDERAB LES Final Result Performing Organization Address [facility]/ZIP Co de Phone Number [facility] [address] [place] [address], [facility] [phone] * (ABNORMAL) CBC W AUTO DIFFERENTIAL (07/06/2024 11:50 AM TECHNICAL INSTRUCTOR) Only the most recent of2 resultswithin the time period is included. [facility] WBC 4.5 4.0 - 10.7 x10E9/L 07/06/2024 12:11 PM [facility] RBC Count 1.90(L) 4.30 - 5.80 x10E12/L 07/06/2024 12:11 PM [facility] Hemoglobin 6.2(L) 13.3 - 17.5 g/dL 07/06/2024 12:11 PM [facility] Hematocrit 17.4(L) 38.7 - 51.1 % 07/06/2024 12:11 PM [facility] MCV 91.6 80.0 - 98.0 fL 07/06/2024 12:11 PM [facility] MCH 32.6 26.7 - 33.6 pg 07/06/2024 12:11 PM [facility] MCHC 35.6 31.7 - 36.3 g/dL 07/06/2024 12:11 PM [facility] RDW-CV 15.9(H) 11.3 - 14.8 % 07/06/2024 12:11 PM [facility] Platelet Count 141(L) 150 - 420 x10E9/L 07/06/2024 12:11 PM [facility] MPV 9.8 7.8 - 11.4 fL 07/06/2024 12:11 PM [facility] Neutrophil % 59.8 41.0 - 74.0 % 07/06/2024 12:11 PM [facility] Lymphocyte % 26.0 17.0 - 47.0 % 07/06/2024 12:11 PM [facility] Monocyte % 11.6(H) 3.0 - 11.0 % 07/06/2024 12:11 PM [facility] Eosinophil % 1.8 0.0 - 7.0 % 07/06/2024 12:11 PM [facility] Basophil % 0.4 0.0 - 1.6 % 07/06/2024 12:11 PM [facility] Immature Granulocytes % 0.4 0.0 - 1.0 % 07/06/2024 12:11 PM [facility] Neutrophil Absolute 2.67 1.60 - 7.50 x10E9/L 07/06/2024 12:11 PM [facility] Lymphocyte Absolute 1.16 1.00 - 4.40 x10E9/L 07/06/2024 12:11 PM [facility] Monocyte Absolute 0.52 0.15 - 1.00 x10E9/L 07/06/2024 12:11 PM [facility] Eosinophil Absolute 0.08 0.00 - 0.60 x10E9/L 07/06/2024 12:11 PM [facility] Basophil Absolute 0.02 0.00 - 0.13 x10E9/L 07/06/2024 12:11 PM [facility] Blood BLOOD SPECIMEN / Unknown Venipuncture / Unknown 07/06/2024 11:50 AM TECHNICAL INSTRUCTOR 07/06/2024 12:02 PM [facility] us Christiano Graham MD LAB - HEMATOLOGY ORDERA BLES Final Result [facility] [address] [place] [address], [facility] [phone] * (ABNORMAL) CBC W/O DIFFERENTIAL (07/06/2024 4:32 AM TECHNICAL INSTRUCTOR) Only the most recent of4 resultswithin the time period is included. [facility] WBC 3.4(L) 4.0 - 10.7 x10E9/L 07/06/2024 5:29 AM [facility] RBC Count 1.97(L) 4.30 - 5.80 x10E12/L 07/06/2024 5:29 AM [facility] Hemoglobin 6.3(L) 13.3 - 17.5 g/dL 07/06/2024 5:29 AM [facility] Hematocrit 18.0(L) 38.7 - 51.1 % 07/06/2024 5:29 AM [facility] MCV 91.4 80.0 - 98.0 fL 07/06/2024 5:29 AM [facility] MCH 32.0 26.7 - 33.6 pg 07/06/2024 5:29 AM [facility] MCHC 35.0 31.7 - 36.3 g/dL 07/06/2024 5:29 AM [facility] RDW-CV 15.6(H) 11.3 - 14.8 % 07/06/2024 5:29 AM [facility] Platelet Count 138(L) 150 - 420 x10E9/L 07/06/2024 5:29 AM [facility] MPV 9.6 7.8 - 11.4 fL 07/06/2024 5:29 AM [facility] Blood BLOOD SPECIMEN / Unknown Venipuncture / Unknown 07/06/2024 4:32 AM TECHNICAL INSTRUCTOR 07/06/2024 5:23 AM [facility] us Jamel Cavazos MD LAB - HEMATOLOGY ORDERABLES Fi nal Result [address] [address], [facility] [phone] * (ABNORMAL) PHOSPHORUS BLOOD (07/06/2024 4:32 AM TECHNICAL INSTRUCTOR) Only the most recent of3 resultswithin the time period is included. [facility] Phosphorus 6.1(H) 2.8 - 5.1 mg/dL 07/06/2024 5:50 AM TECHNICAL INSTRUCTOR [facility] Blood BLOOD SPECIMEN / Unknown Venipuncture / Unknown 07/06/2024 4:32 AM TECHNICAL INSTRUCTOR 07/06/2024 5:23 AM TECHNICAL INSTRUCTOR Jamel Cavazos MD LAB - CHEMISTRY ORDERABLES Fin al Result Performing Organization Address City/[facility]/ZIP Co de Phone Number [address] [address], [place] [phone] * MAGNESIUM BLOOD (07/06/2024 4:32 AM TECHNICAL INSTRUCTOR) Only the most recent of5 resultswithin the time period is included. [facility] Magnesium 2.1 1.6 - 2.6 mg/dL 07/06/2024 5:50 AM TECHNICAL INSTRUCTOR [facility] Blood BLOOD SPECIMEN / Unknown Venipuncture / Unknown 07/06/2024 4:32 AM TECHNICAL INSTRUCTOR 07/06/2024 5:23 AM TECHNICAL INSTRUCTOR Jamel Cavazos MD LAB - CHEMISTRY ORDERABLES Fin al Result Performing Organization Address [facility] Co de Phone Number [address] [address], [place] [phone] * C-PEPTIDE (07/05/2024 1:52 PM TECHNICAL INSTRUCTOR) [facility] C-Peptide 1.8 0.5 - 3.3 ng/mL 07/07/2024 1:34 AM TECHNICAL INSTRUCTOR [facility] ([facility]) Comment: INTERPRETIVE INFORMATION: Serum, C-Peptide Reference Interval applies to fasting specimens. To convert to nmol/L, multiply by 0.33 Performed By: [employer] and [employer] [address] [place] [address] Ship Engineer: Hamilton Martinez MD, PhD CLIA Number: [id number] Blood BLOOD SPECIMEN / Unknown Venipuncture / Unknown 07/05/2024 1:52 PM TECHNICAL INSTRUCTOR 07/05/2024 1:57 PM TECHNICAL INSTRUCTOR Jamel Cavazos MD LAB - CHEMISTRY ORDERABLES Fin al Result [facility] ([facility]) [address] [place] [id number] * (ABNORMAL) HEMOGLOBIN A1C (07/05/2024 1:52 PM TECHNICAL INSTRUCTOR) Hemoglobin A1c 6.0(H) <=5.6 % 07/05/2024 4:19 PM TECHNICAL INSTRUCTOR [facility] Estimated Average Glucose 126 mg/dL 07/05/2024 4:19 PM TECHNICAL INSTRUCTOR [facility] Comment: HbA1c Interpretation: Normal : < 5.7% Pre-diabetes: 5.7-6.4% Diabetes: Equal to or greater than 6.5% Test results diagnostic of diabetes should be repeated for confirmation. Treatment target values recommended by ADA and other clinical organizations should be used to evaluate metabolic control in patients. Reference: [place] [employer], Standards of Care in Diabetes -2020 In patients 70 years and older consider HbA1c target range of 7.0-7.5% (Reference: Ruddy Koenig et al. JAMDA. 2012) The Sebia assay for the measurement of HbA1c is a National Glycohemoglobin Standardization Program (NGSP) certified method. Blood BLOOD SPECIMEN / Unknown Venipuncture / Unknown 07/05/2024 1:52 PM TECHNICAL INSTRUCTOR 07/05/2024 1:59 PM TECHNICAL INSTRUCTOR Jamel Cavazos MD LAB - CHEMISTRY ORDERABLES Fin al Result Performing Organization Address City/[facility]/ZIP Co de Phone Number [facility] [address] [place] [address], [facility] [phone] * LIPASE BLOOD (07/05/2024 1:52 PM TECHNICAL INSTRUCTOR) Only the most recent of2 resultswithin the time period is included. Lipase 9 8 - 78 U/L 07/05/2024 2:26 PM TECHNICAL INSTRUCTOR [facility] Blood BLOOD SPECIMEN / Unknown Venipuncture / Unknown 07/05/2024 1:52 PM TECHNICAL INSTRUCTOR 07/05/2024 1:59 PM TECHNICAL INSTRUCTOR Narrative [facility] - 07/05/2024 2:26 PM TECHNICAL INSTRUCTOR Lipase results from the [employer]ee Alinity analyzer may not be comparable with other methodologies. us Jamel Cavazos MD LAB - CHEMISTRY ORDERABLES [facility] al Result [facility] [address] [place] [address], [facility] [phone] * XR Chest 1Vw Portable (07/05/2024 9:52 AM TECHNICAL INSTRUCTOR) Only the most recent of2 resultswithin the time period is included. Anatomical Region Laterality Modality Chest Digital Radiogra phy 07/05/2024 3:07 PM TECHNICAL INSTRUCTOR Narrative 07/05/2024 9:03 PM TECHNICAL INSTRUCTOR PROCEDURE: XR CHEST 1VW PORTABLE, DATE/TIME OF EXAM: 07/05/2024 10:05 AM, LOCATION [facility] INDICATION: K85.00: Idiopathic acute pancreatitis, unspecified [...] normal. > Dictated by Yue FAGAN, [facility] (residential property tax appraiser). I, Ronal Spencer MD have personally reviewed and interpreted this examination/study. > Interpreting Provider: Ronal Spencer MD on 07/05/2024 9:03 PM Procedure Note Ronal Spencer MD - 07/05/2024 PROCEDURE: XR CHEST 1VW PORTABLE, DATE/TIME OF EXAM: 07/05/2024 10:05AM, LOCATION [facility] INDICATION: K85.00: Idiopathic acute pancreatitis, unspecified [...] normal. > Dictated by Yue FAGAN, [facility] (residential property tax appraiser). I, Ronal Spencer MD have personally reviewed and interpreted this examination/study. > Interpreting Provider: Ronal Spencer MD on 07/05/2024 9:03 PM Jamel Cavazos MD DIAGNOSTIC IMAGING ORDERABLES Final Result * EKG 12-LEAD (07/05/2024 8:40 AM TECHNICAL INSTRUCTOR) Only the most recent of5 resultswithin the time period is included. Ventricular Rate 101 BPM [facility] Atrial Rate 101 BPM [facility] P-R Interval 146 ms [facility] QRS Duration ms 88 ms [facility] Q-T Interval ms 326 ms [facility] MUSE QTC Calculation (Bezet) 422 ms [facility] MUSE Calculated P [place] 32 degrees [facility] MUSE Calculated R [place] 83 degrees [facility] MUSE Calculated T [place] 32 degrees [facility] MUSE Interpretation EKG SINUS TACHYCARDIA LOW VOLTAGE QRS SEPTAL INFARCT , AGE UNDETERMINED T WAVE ABNORMALITY, CONSIDER ANTEROLATERAL ISCHEMIA ABNORMAL ECG WHEN COMPARED WITH ECG OF 01-JUL-2024 03:16, NO SIGNIFICANT CHANGE WAS FOUND Confirmed by MD STEFF, GLORIA ([id number]) on 07/05/2024 12:50:27 PM [facility] MUSE 07/05/2024 8:40 AM TECHNICAL INSTRUCTOR 07/05/2024 12:50 PM TECHNICAL INSTRUCTOR Jamel Cavazos MD ECG ORDERABLES Edited Result - Final [facility] MUSE * XR Abdomen Kub Portable (07/02/2024 8:41 AM TECHNICAL INSTRUCTOR) Only the most recent of2 resultswithin the time period is included. Anatomical Region Laterality Modality Abdomen Digital Radiogra phy 07/02/2024 2:55 PM TECHNICAL INSTRUCTOR Narrative 07/03/2024 12:53 AM TECHNICAL INSTRUCTOR PROCEDURE: XR ABDOMEN KUB PORTABLE, DATE/TIME OF EXAM: 07/02/2024 8:41 AM, LOCATION [facility] INDICATION: K56.7: Ileus (HCC) ADDITIONAL CLINICAL INFORMATION: Ordering Provider Reason For Exam: ileus Technologist Note: Additional: COMPARISON: Abdomen x-ray 07/01/2024. TECHNIQUE: Supine frontal radiograph of the abdomen. FINDINGS/ IMPRESSION: Multiple mildly dilated loops of small and large bowel located centrally may represent ileus. No evidence of free air on this supine exam. > Dictated by Juana Esquivel MD, (residential property tax appraiser). Ronal Albright MD have personally reviewed and interpreted this examination/study. > Interpreting Provider: Ronal Spencer MD on 07/03/2024 12:53 AM Procedure Note Ronal Spencer MD - 07/03/2024 PROCEDURE: XR ABDOMEN KUB PORTABLE, DATE/TIME OF EXAM: 07/02/2024 8:41AM, LOCATION [facility] INDICATION: K56.7: Ileus (HCC) ADDITIONAL CLINICAL INFORMATION: Ordering Provider Reason For Exam: ileus Technologist Note: Additional: COMPARISON: Abdomen x-ray 07/01/2024. TECHNIQUE: Supine frontal radiograph of the abdomen. FINDINGS/ IMPRESSION: Multiple mildly dilated loops of small and large bowel located centrally may represent ileus. No evidence of free air on this supine exam. > Dictated by Juana Esquivel MD, (residential property tax appraiser). Ronal Albright MD have personally reviewed and interpreted this examination/study. > Interpreting Provider: Ronal Spencer MD on 07/03/2024 12:53 AM Jamel Cavazos MD DIAGNOSTIC IMAGING ORDERABLES Final Result * (ABNORMAL) BASIC METABOLIC PANEL (CALCIUM TOTAL) (07/01/2024 4:22 AM TECHNICAL INSTRUCTOR) BUN 31(H) 7 - 26 mg/dL 07/01/2024 5:19 AM [facility] Creatinine 0.75 0.71 - 1.16 mg/dL 07/01/2024 5:19 AM [facility] Sodium 128(L) 136 - 145 mmol/L 07/01/2024 5:19 AM [facility] Potassium 3.9 3.5 - 4.5 mmol/L 07/01/2024 5:19 AM [facility] Chloride 88(L) 98 - 107 mmol/L 07/01/2024 5:19 AM [facility] CO2 24 22 - 29 mmol/L 07/01/2024 5:19 AM [facility] Glucose 136(H) 70 - 99 mg/dL 07/01/2024 5:19 AM [facility] Calcium 10.0 8.4 - 10.2 mg/dL 07/01/2024 5:19 AM [facility] Anion Gap 16 6 - 16 07/01/2024 5:19 AM [facility] BUN/Creatinine Ratio 41(H) 7 - 23 07/01/2024 5:19 AM [facility] Osmolality Calculated 275 275 - 295 mOsm/kg 07/01/2024 5:19 AM [facility] eGFR by CKD-EPI >90 >=90 mL/min/1.7 3 m2 07/01/2024 5:19 AM [facility] Blood BLOOD SPECIMEN / Unknown Lab Venipuncture / Unknown 07/01/2024 4:22 AM [facility] 07/01/2024 4:46 AM [facility] us Que Chow MD LAB - CHEMISTRY ORDERABLES F inal Result [address] [address], [facility] [phone] * (ABNORMAL) HEPATIC FUNCTION PANEL (07/01/2024 4:22 AM [facility]) Protein Total 7.7 6.0 - 8.3 g/dL 025 9:46 AM [facility] Albumin 4.9 3.4 - 5.0 g/dL 07/01/2024 9:46 AM [facility] Bilirubin Total 1.0 0.2 - 1.2 mg/dL 06/06 9:46 AM [facility] Bilirubin Conjugated 0.3 0.1 - 0.5 mg/dL 07/01/2024 9:46 AM [facility] Bilirubin Unconjugated 0.7 Unconjugated Bilirubin is a calculated value: Reference ranges have not been established. mg/dL 07/01/2024 9:46 AM [facility] Alkaline Phosphatase 76 40 - 150 U/L 07/01/2024 9:46 AM [facility] ALT 91(H) 5 - 55 U/L 07/01/2024 9:46 AM [facility] AST 111(H) 5 - 34 U/L 07/01/2024 9:46 AM [facility] Albumin/Globulin Ratio 1.8 1.1 - 2.3 07/01/2024 9:46 AM [facility] Blood BLOOD SPECIMEN / Unknown Lab Venipuncture / Unknown 07/01/2024 4:22 AM TECHNICAL INSTRUCTOR 07/01/2024 4:46 AM TECHNICAL INSTRUCTOR Jamel Cavazos MD LAB - CHEMISTRY ORDERABLES Fin al Result [facility] [address] [place] [address], [facility] [phone] * CT ABDOMEN PELVIS W CONTRAST (06/30/2024 5:02 PM TECHNICAL INSTRUCTOR) Anatomical Region Laterality Modality Abdomen, Pelvis Computed Tomogra phy 06/30/2024 5:08 PM TECHNICAL INSTRUCTOR Impressions 06/30/2024 10:01 PM TECHNICAL INSTRUCTOR Impression: 1.Pancreatic atrophy with mild adjacent fat [...] 06/30/2024 10:01 PM Narrative 06/30/2024 10:01 PM TECHNICAL INSTRUCTOR Procedure Information DATE: 06/30/2024 5:02 PM EXAMINATION: [...] HIGH SENSITIVE REFLEX 1HOUR (06/30/2024 3:57 PM TECHNICAL INSTRUCTOR) Troponin I High Sensitive 71(H) <=35 ng/L 06/30/2024 4:42 PM TECHNICAL INSTRUCTOR [facility] Delta Troponin I HS 4 <6 ng/L 06/30/2024 4:42 PM [facility] Blood BLOOD SPECIMEN / Unknown Venipuncture / Unknown 06/30/2024 3:57 PM TECHNICAL INSTRUCTOR 06/30/2024 4:06 PM TECHNICAL INSTRUCTOR us Daryl Julian MD LAB - CHEMISTRY ORDERABLES Final Result [facility] [address] [place] [address], [facility] [phone] * (ABNORMAL) URINALYSIS REFLEX TO MICROSCOPIC NO CULTURE (06/30/2024 2:52 PM TECHNICAL INSTRUCTOR) Color UA Yellow Yellow, Straw 06/30/2024 4:00 PM [facility] Clarity UA Clear Clear 06/30/2024 4:00 PM [facility] Glucose UA 4+(A) Normal 06/30/2024 4:00 PM [facility] Bilirubin UA 1+(A) Negative 06/30/2024 4:00 PM [facility] Ketone UA 4+(A) Negative 06/30/2024 4:00 PM [facility] Specific [place] UA 1.027 1.005 - 1.030 06/30/2024 4:00 PM [facility] Blood UA 2+(A) Negative 06/30/2024 4:00 PM [facility] pH UA 5.5 5.0 - 9.0 pH 06/30/2024 4:00 PM [facility] Protein UA 2+(A) Negative 06/30/2024 4:00 PM [facility] Urobilinogen UA 4.0(A) Normal mg/dL 025 4:00 PM [facility] Nitrite UA Negative Negative 06/30/2024 4:00 PM [facility] Leukocyte UA Negative Negative 06/30/2024 4:00 PM [facility] RBC UA 3-5 0 - 5 # /hpf 06/30/2024 4:00 PM [facility] WBC UA 0-5 0 - 5 # /hpf 06/30/2024 4:00 PM [facility] Bacteria UA None Seen None Seen 06/30/2024 4:00 PM [facility] Squamous Epithelial Cells 0-2 0 - 5 /hpf 06/30/2024 4:00 PM [facility] Mucus UA 2+ /LPF 06/30/2024 4:00 PM [facility] Urine URINE SPECIMEN OBTAINED BY CLEAN CATCH PROCEDURE / Unknown Collection / Unknown 06/30/2024 2:52 PM TECHNICAL INSTRUCTOR 06/30/2024 2:58 PM TECHNICAL INSTRUCTOR us Daryl Julian MD LAB - URINALYSIS ORDERABLE S Final Result [facility] [address] [place] [address], [facility] [phone] * (ABNORMAL) URINE DRUG SCREEN IMMUNOASSAY (06/30/2024 2:52 PM TECHNICAL INSTRUCTOR) Amphetamines Screen Urine Negative Negative : < 1000 ng/mL 06/30/2024 3:23 PM [facility] Barbiturates Screen Urine Negative Negative : < 200 ng/mL 06/30/2024 3:23 PM [facility] Benzodiazepine Screen Urine Negative Negative : < 200 ng/mL 06/30/2024 3:23 PM [facility] Opiates Urine Positive(A) Negative : < 300 ng/mL 06/30/2024 3:23 PM [facility] Comment:Positive urine opiat e screening results should be confirmed by another generally accepted non-immunological method such as gas chromatography or mass spectrometry. Cocaine Metabolites Urine Negative Negative : < 300 ng/mL 06/30/2024 3:23 PM [facility] Phencyclidine Screen Urine Negative Negative : < 25 ng/ml 06/30/2024 3:23 PM [facility] Cannabinoids Screen Urine Negative Negative : <50 ng/mL 06/30/2024 3:23 PM [facility] Methadone Screen Urine Negative Negative : < 300 ng/mL 06/30/2024 3:23 PM [facility] Fentanyl Screen Urine Positive(A) Negative : <1.5 ng/mL 06/30/2024 3:23 PM [facility] Comment:Positive urine fenta nyl screening results should be confirmed by another generally accepted non-immunological method such as gas chromatography or mass spectrometry. Urine URINE / Unknown Collection / Unknown 06/30/2024 2:52 PM TECHNICAL INSTRUCTOR 06/30/2024 2:58 PM TECHNICAL INSTRUCTOR Narrative [facility] - 06/30/2024 3:23 PM TECHNICAL INSTRUCTOR The Urine Toxicology Screening Panel does not screen for Propoxyphene, Meprobamate, Carisoprodol, Trazodone, [id number] medications and/or volatiles (Acetone, Isopropanol, Methanol or Ethylene Glycol). Ethanol, Salicylate, Acetaminophen, Tricyclic Antidepressants and several therapeutic drugs may be individually assayed in serum or plasma specimen. Toxicology testing by the [facility] is an aid to medical diagnosis and treatment of patients. No documented chain of custody was maintained. Results are intended to be used for clinical purposes only. Daryl Julian MD LAB - URINE CHEMISTRY ORDE RABCRYSTAL Final Result Performing Organization Address [facility] Co de Phone Number [address] [address], [facility] [phone] * PT-INR [facility] (06/30/2024 2:48 PM TECHNICAL INSTRUCTOR) PT 12.7 12.1 - 14.8 Seconds 06/30/2024 3:20 PM TECHNICAL INSTRUCTOR [facility] INR 1.0 See Comment 06/30/2024 3:20 PM TECHNICAL INSTRUCTOR [facility] Comment:The suggested therap eutic range for standard coumadin (warfarin) therapy is an INR of 2.0-3.0. For high-risk patients (Mechanical Mitral Valve Prosthesis, etc.), the suggested prophylactic therapeutic range is an INR of 2.5-3.5. Blood BLOOD SPECIMEN / Unknown Venipuncture / Unknown 06/30/2024 2:48 PM TECHNICAL INSTRUCTOR 06/30/2024 2:52 PM TECHNICAL INSTRUCTOR Daryl Julian MD LAB - COAGULATION ORDERABL ES Final Result Performing Organization Address [facility] Co de Phone Number [address] [address], [facility] [phone] * LACTIC ACID BLOOD REFLEX TO REPEAT (06/30/2024 2:48 PM TECHNICAL INSTRUCTOR) [facility] Lactic Acid-Stat 1.3 <=2.0 mmol/L 06/30/2024 3:23 PM TECHNICAL INSTRUCTOR [facility] Blood BLOOD SPECIMEN / Unknown Venipuncture / Unknown 06/30/2024 2:48 PM TECHNICAL INSTRUCTOR 06/30/2024 2:52 PM TECHNICAL INSTRUCTOR Daryl Julian MD LAB - CHEMISTRY ORDERABLES Final Result Performing Organization Address [facility] Co de Phone Number [facility] [address] [place] [address], [place] [phone] * (ABNORMAL) TROPONIN-I HIGH SENSITIVE BASELINE + 1HR (06/30/2024 2:48 PM TECHNICAL INSTRUCTOR) [facility] Troponin I High Sensitive 67(H) <=35 ng/L 06/30/2024 3:32 PM TECHNICAL INSTRUCTOR [facility] Blood BLOOD SPECIMEN / Unknown Venipuncture / Unknown 06/30/2024 2:48 PM TECHNICAL INSTRUCTOR 06/30/2024 2:54 PM TECHNICAL INSTRUCTOR Daryl Julian MD LAB - CHEMISTRY ORDERABLES Final Result Performing Organization Address [facility] de Phone Number [address] [address], [place] [phone] * B-TYPE NATRIURETIC PEPTIDE (06/30/2024 2:48 PM TECHNICAL INSTRUCTOR) [facility] BNP 38 <100 pg/mL 06/30/2024 3:30 PM TECHNICAL INSTRUCTOR [facility] Comment: A decision threshold of 100 [...] Unknown Venipuncture / Unknown 06/30/2024 2:48 PM TECHNICAL INSTRUCTOR 06/30/2024 2:54 PM TECHNICAL INSTRUCTOR Daryl Julian MD LAB - CHEMISTRY ORDERABLES Final Result Performing Organization Address [facility]/ZIP Co de Phone Number [address] [address], [facility] [phone] * ALCOHOL ETHYL BLOOD (06/30/2024 2:48 PM TECHNICAL INSTRUCTOR) Ethanol (mg/dL) <10 <10 mg/dL 3:28 PM TECHNICAL INSTRUCTOR [facility] Ethanol Calculated (g/dL) <0.010 <=0.010 g/dL 06/30/2024 3:28 PM TECHNICAL INSTRUCTOR [facility] Blood BLOOD SPECIMEN / Unknown Venipuncture / Unknown 06/30/2024 2:48 PM TECHNICAL INSTRUCTOR 06/30/2024 2:54 PM TECHNICAL INSTRUCTOR Narrative [facility] - 06/30/2024 3:28 PM TECHNICAL INSTRUCTOR Ethanol Interp <10: None Detected. Depression of TAR WORKER: >100 mg/dl Potentially Critical: >250 mg/dl Potentially [...] CHEMISTRY ORDERABLES Final Result Performing Organization Address [facility]/ZIP Co de Phone Number [address] [address], [place] [phone] * HIV-1 HIV-2 ANTIBODY + HIV P24 AG PANEL (02/03/2024 8:26 PM CDT) HIV Antigen/Antibod y 1 & 2 Non-reacti ve Non-react judy 02/03/2024 9:49 PM CDT [facility] Comment:No Laboratory eviden ce of HIV infection. Blood BLOOD SPECIMEN / Unknown Line Draw / Unknown 02/03/2024 8:26 PM CDT 02/03/2024 8:36 PM CDT us Aminata Marlow PA-C LAB - CHEMISTRY ORDERABLES F inal Result [facility] [address] [place] [address], [facility] [phone] from Last 3 Months or Most Recently Relevant to Health Maintenance Insurance [facility] [employer] ANTHEM ANTHEM ANTHEM Advance Directives [...] 5:17 PM 02/14/2024 11:35 AM Care Teams Geotechnician Relationship Specialty Start Date End Date An Kamara, [employer]-ALARM INSTALLER [address] [place] [phone] PCP - General Nurse Practitioner Family 02/16/24
[2024-09-08 01:55] LABS: Basophils Absolute Auto 0.1 K/mm3 (0.0-0.1); Basophils Percent Auto 0.5 % (0.2-1.2); Eosinophils Absolute Auto 0.2 K/mm3 (0-0.3); Eosinophils Percent Auto 1.8 % (0-4.4); Hematocrit 34.2 % (42.0-52.0); Hemoglobin 10.9 g/dL (14.0-18.0); Immature Granulocyte Absolute 0.03 K/mm3 (0.00-0.031); Immature Granulocyte Percent A 0.3 % (0-0.5); Lymphocytes Absolute Auto 1.77 K/mm3 (0.9-3.2); Mean Corpuscular HGB Conc 31.9 g/dl (32-36); Mean Corpuscular Hemoglobin 28.6 pg (26-34); Mean Corpuscular Volume 89.8 fl (80-100); Mean Platelet Volume 9.4 fl (7.4-10.4); Monocytes Absolute Auto 1.1 K/mm3 (0.1-0.6); Monocytes Percent Auto 11.5 % (2.6-8.5); Neutrophils Absolute Auto 6.7 K/mm3 (1.3-6.7); Neutrophils Percent Auto 67.9 % (45.5-73.1); Platelet Count Result 298 k/mm3 (150-375); Red Blood Count 3.81 M/mm3 (4.6-6.20); Red Cell Distribution Width 16.7 % (11.5-14.5); White Blood Count 9.9 K/mm3 (4.5-10.0)
[2024-09-08 02:14] LABS: Ethanol < 10 mg/dL (<10)
[2024-09-08 02:15] LABS: Alanine Aminotransferase 126 U/L (6-50); Albumin Level 4.5 g/dL (3.5-5.1); Alkaline Phosphatase 67 U/L (38-126); Anion Gap 11 mmol/L (4-12); Aspartate Amino Transferase 587 U/L (17-59); Bilirubin,Total 1.4 mg/dL (0.2-1.3); Blood Urea Nitrogen 19 mg/dL (9-20); Calcium 9.3 mg/dL (8.4-10.2); Carbon Dioxide 32 mmol/L (22-30); Chloride 85 mmol/L (98-107); Estimated CRCL calculation 96 ml/min; Estimated Glomerular Filt Rate > 60; Glucose 158 mg/dL (65-110); Potassium 5.1 mmol/L (3.4-5.0); Sodium 128 mmol/L (137-145)
[2024-09-08 02:17] LABS: Lactic Acid Reflex 1.3 mmol/L (0.7-2.0)
[2024-09-08 02:37] LABS: Amphetamine Screen Urine Negative (Negative); Barbiturate Screen Urine Positive (Negative); Benzodiazepines Screen Urine Positive (Negative); Cannabinoid Screen Urine Negative (Negative); Cocaine Screen Urine Negative (Negative); Methadone Screen Urine Negative (Negative); Opiate Screen Urine Negative (Negative); Phencyclidine Screen Urine Negative (Negative)
--- NOTE | 2024-09-08 02:42 | PC.NURSE ---
Pt asked this RN if he could chest x-ray. This RN notified EDP. Chest xray ordered.
--- NOTE | 2024-09-08 03:25 | PC.NURSE ---
Pt asked this RN for Ativan, Zofran, and something for pain. EDP notified.
[2024-09-08] MEDS: ONDANSETRON INJ 4 MG/2 ML VIAL IV PUSH (03:35)
[2024-09-08] MEDS: PHENobarbitaL sodium (*CRX) 130 MG/ML VIAL 260 MG IV PUSH (04:26)
[2024-09-08] MEDS: SODIUM CHLORIDE 0.9% IV 100 ML 200 ML (04:27)
--- NOTE | 2024-09-08 05:39 | ED_ITS ---
HPI - General Adult General Chief complaint: Unspecified Stated complaint: etoh withdrawl Time Seen by Provider: 09/08/24 01:18 History of Present Illness HPI narrative: Patient history of alcohol use disorder complicated by cardiomyopathy presents here after being discharged his morning with complaint that he is in withdrawal. He is reporting nausea and thinks that he still has pneumonia and wants to be admitted. Related Data Home Medications ?Medication ?Instructions ?Recorded ?Confirmed ?Last Taken ?Type clonazepam 2 mg tablet 2 mg PO BID 07/28/24 08/29/24 Unknown History cyclobenzaprine 5 mg tablet 5 mg PO Q6H 07/28/24 08/29/24 08/28/24 History ferrous sulfate 325 mg (65 mg 325 mg PO DAILY 07/28/24 08/29/24 08/28/24 History iron) tablet folic acid 400 mcg tablet 400 mcg PO DAILY 07/28/24 08/29/24 08/28/24 History furosemide 20 mg tablet 20 mg PO DAILY 07/28/24 08/29/24 Unknown History hydrocodone 10 mg-acetaminophen 1 tablet PO Q4H PRN pain (scale 07/28/24 08/29/24 Unknown History 325 mg tablet score 4-6) melatonin 10 mg tablet 10 mg PO HS PRN sleep 07/28/24 08/29/24 Unknown History spironolactone 25 mg tablet 12.5 mg PO Q12H 07/28/24 08/29/24 Unknown History (Aldactone) zolpidem 10 mg tablet 10 mg PO HS PRN insomnia 07/28/24 08/29/24 Unknown History carvedilol 3.125 mg tablet 3.125 mg PO Q12H 08/29/24 08/29/24 08/28/24 09:54 History insulin glargine 100 unit/mL (3 5 unit subcut DAILY 08/29/24 08/29/24 08/28/24 History mL) subcutaneous pen (Lantus Solostar U-100 Insulin) insulin lispro 100 unit/mL 3 unit subcut TIDWM 08/29/24 08/29/24 08/28/24 History subcutaneous pen ivabradine 5 mg tablet 5 mg PO DAILY 08/29/24 08/29/24 Unknown History ondansetron 8 mg disintegrating 8 mg PO Q6H PRN nausea and vomiting 08/29/24 08/29/24 Unknown History tablet oxycodone 10 mg tablet 10 mg PO Q6H PRN pain 08/29/24 08/29/24 Unknown History pantoprazole 40 mg tablet,delayed 40 mg PO DAILY 08/29/24 08/29/24 Unknown History release pregabalin 100 mg capsule 100 mg PO DAILY 08/29/24 08/29/24 08/28/24 History sacubitril 24 mg-valsartan 26 mg 0.5 tablet PO Q12H 08/29/24 08/29/24 08/28/24 History tablet (Entresto) Allergies Allergy/AdvReac Type Severity Reaction Status Date / Time Sulfa (Sulfonamide Allergy Unknown Unknown Verified 09/07/24 05:09 Antibiotics) sulfamethoxazole Allergy Unknown Unknown Verified 09/07/24 05:09 trimethoprim Allergy Unknown Unknown Verified 09/07/24 05:09 Review of Systems 2 Review of Systems: All systems reviewed & are unremarkable except as noted in HPI and below PMFSH Past Medical History Medical History (Updated 09/08/24 @ 06:18 by Lorraine Givens MD) Severe protein-calorie malnutrition Diabetes mellitus Insomnia Peripheral neuropathy Dilated cardiomyopathy secondary to alcohol With prior episode of heart failure requiring ECMO fall 2023 due to cardiogenic shock Anxiety Hepatic steatosis Alcoholism Pancreatitis hx of necrotizing pancreatitis November 2023 Hx of pseudocyst that was drained Surgical History Surgical History (Updated 08/29/24 @ 07:24 by Ashley Coates DO) Personal history of extracorporeal membrane oxygenation (ECMO) History of cardiac catheterization No significant coronary artery disease History of ankle surgery Family History Family History Father Heart disease Hypertension Social History Social History (Updated 08/29/24 @ 07:25 by Ashley Coates DO) Social History: Smokes 1ppd x16 years. History of drinking to 750 mL of hard liquor a day. He also smokes marijuana. Code status: Full code Surrogate decision maker: mother Smoking packs per day: 1 Smoking cigarettes per day: 20.0 Years smoked: 16 Smoking pack-years: 16.00 Smoking status: Current every day smoker Tobacco type: cigarettes Alcohol intake: current Substance use: current Substance use type: marijuana Do You Feel Safe in your Home?: Yes Lack of Transportation: No Lack of Food: Never True Current Housing: I Have Housing Concerned About Future Housing: No Difficulty Paying Gas/Electric Bills: No Difficulty Paying for Meds: No Currently Unemployed: No Education: High School Diploma/GED Difficulty w/ Childcare or Family Care: No Spiritual care concerns: No Exam 2 Narrative: EXAMINATION OF ORGAN SYSTEMS/BODY AREAS: Constitutional: Vital signs per nursing GENERAL: Sleepy HEAD: Normal with no signs of head trauma. EYES: EOMI, conjunctiva normal ENT: Hearing grossly intact LUNGS: Nonlabored breathing. HEART: [Regular rate and rhythm] ABD: [Soft], [nontender to palpation] EXT: Normal range of motion SKIN: [No rashes or lesions.] NEURO: [Sleepy but wakes to voice. No gross focal sensory or strength deficits.] No obvious tremors. PSYCH: Normal affect Course Vital Signs Vital signs: Vital Signs Temperature 98.5 F 09/08/24 00:44 Pulse Rate 103 H 09/08/24 00:44 Respiratory Rate 21 H 09/08/24 00:44 Blood Pressure 106/87 09/08/24 00:44 Pulse Oximetry 98 09/08/24 00:44 Oxygen Delivery Room Air 09/08/24 00:44 Temperature 98.7 F 09/08/24 03:29 Pulse Rate 95 09/08/24 03:29 Respiratory Rate 15 09/08/24 03:29 Blood Pressure 92/81 L 09/08/24 03:29 Pulse Oximetry 96 09/08/24 03:29 Oxygen Delivery Room Air 09/08/24 00:44 Medical Decision Making MDM Narrative Medical decision making narrative: Patient presents here requesting admission for alcohol withdrawal. Further information obtained from EMS and prior admission records. On exam he does not have significant tremors or signs of withdrawal, he had been loaded with phenobarb just prior to discharge the day before, but I will obtain labs and chest x-ray per his request. Chest x-ray is clear by my independent interpretation. Labs are notable only for increasing LFTs. He is treated with phenobarbital and Zofran here though he did request Ativan and a sandwich. I did discuss with patient since he was so adamant on admission that I can call social work to arrange for possible correction placement but he refuses. I did point out last time he was admitted he left A and he states that he just wants to be admitted until the withdrawals over. I did attempt to ambulate him but he required 2 people assist at this point I do know if I can safely discharge him home. Discussed with hospitalist for observation. Vital Signs Vital Signs: Vital Signs Temperature 98.5 F 09/08/24 00:44 Pulse Rate 103 H 09/08/24 00:44 Respiratory Rate 21 H 09/08/24 00:44 Blood Pressure 106/87 09/08/24 00:44 Pulse Oximetry 98 09/08/24 00:44 Oxygen Delivery Room Air 09/08/24 00:44 Temperature 98.7 F 09/08/24 03:29 Pulse Rate 95 09/08/24 03:29 Respiratory Rate 15 09/08/24 03:29 Blood Pressure 92/81 L 09/08/24 03:29 Pulse Oximetry 96 09/08/24 03:29 Oxygen Delivery Room Air 09/08/24 00:44 Lab Data 09/08/24 01:45 09/08/24 01:45 Labs: Lab Results 09/08/24 09/08/24 Range/Units 01:45 02:14 WBC 9.9 (4.5-10.0) K/mm3 RBC 3.81 L (4.6-6.20) M/mm3 Hgb 10.9 L (14.0-18.0) g/dL Hct 34.2 L (42.0-52.0) % MCV 89.8 (80-100) fl MCH 28.6 (26-34) pg MCHC 31.9 L (32-36) g/dl RDW 16.7 H (11.5-14.5) % Plt Count 298 (150-375) k/mm3 MPV 9.4 (7.4-10.4) fl Immature Gran % (Auto) 0.3 (0-0.5) % Neut % (Auto) 67.9 (45.5-73.1) % Lymph % (Auto) 18.0 L (18.3-44.2) % [place] % (Auto) 11.5 H (2.6-8.5) % Eos % (Auto) 1.8 (0-4.4) % Baso % (Auto) 0.5 (0.2-1.2) % Lymph # (Auto) 1.77 (0.9-3.2) K/mm3 [place] # (Auto) 1.1 H (0.1-0.6) K/mm3 Eos # (Auto) 0.2 (0-0.3) K/mm3 Baso # (Auto) 0.1 (0.0-0.1) K/mm3 Abs Immat Gran (auto) 0.03 (0.00-0.031) K/mm3 Absolute Neuts (auto) 6.7 (1.3-6.7) K/mm3 Absolute Nucleated RBC 0.000 (0.0-0.012) K/mm3 Nucleated RBC % 0.0 (0.0-0.2) % Sodium 128 L (137-145) mmol/L Potassium 5.1 H (3.4-5.0) mmol/L Chloride 85 L (98-107) mmol/L Carbon Dioxide 32 H (22-30) mmol/L Anion Gap 11 (4-12) mmol/L BUN 19 (9-20) mg/dL Creatinine 0.77 (0.7-1.3) mg/dL Estim Creat Clear Calc 96 ml/min Estimated GFR > 60 (59 - ) Glucose 158 H (65-110) mg/dL Lactic Acid 1.3 (0.7-2.0) mmol/L Calcium 9.3 (8.4-10.2) mg/dL Total Bilirubin 1.4 H (0.2-1.3) mg/dL AST 587 H (17-59) U/L ALT 126 H (6-50) U/L Alkaline Phosphatase 67 (38-126) U/L Total Protein 7.0 (6.3-8.2) g/dL Albumin 4.5 (3.5-5.1) g/dL Urine Opiates Screen Negative (Negative) Urine Methadone Screen Negative (Negative) Ur Barbiturates Screen Positive A (Negative) Ur Phencyclidine Scrn Negative (Negative) Ur Amphetamine Screen Negative (Negative) U Benzodiazepines Scrn Positive A (Negative) Urine Cocaine Screen Negative (Negative) U Cannabinoids Screen Negative (Negative) Ethyl Alcohol < 10 (<10) mg/dL Discharge Plan Discharge Clinical Impression: Elevated liver enzymes, Generalized weakness, Adult failure to thrive Alcohol withdrawal Qualifiers: Complication of substance-induced condition: uncomplicated Qualified Code(s): F 1067 - Alcohol use, unspecified with withdrawal, uncomplicated Patient Disposition: Still a Patient Condition: Stable Patient Language: Irish Prescriptions: No Action chlordiazepoxide HCl 25 mg capsule 25 mg PO Q6-12H PRN (Reason: alcohol withdrawal) Qty: 15 0RF Rx Instructions: Take 2 tabs every 6 to 12 hours on day 1; 1 tab every 6 hours on day 2; 1 tab every 12 hours on day 3; 1 tab at night on day 4. famotidine 20 mg tablet 20 mg PO DAILY Qty: 30 0RF ondansetron 4 mg tablet,disintegrating 4 mg PO Q8H PRN (Reason: nausea and vomiting) Qty: 10 0RF hydrocodone-acetaminophen 10-325 mg tablet 1 tablet PO Q4H PRN (Reason: pain (scale score 4-6)) spironolactone [Aldactone] 25 mg tablet 12.5 mg PO Q12H clonazepam 2 mg tablet 2 mg PO BID zolpidem 10 mg tablet 10 mg PO HS PRN (Reason: insomnia) cyclobenzaprine 5 mg tablet 5 mg PO Q6H furosemide 20 mg tablet 20 mg PO DAILY folic acid 400 mcg tablet 400 mcg PO DAILY melatonin 10 mg tablet 10 mg PO HS PRN (Reason: sleep) ferrous sulfate 325 mg (65 mg iron) tablet 325 mg PO DAILY carvedilol 3.125 mg tablet 3.125 mg PO Q12H ivabradine 5 mg tablet 5 mg PO DAILY pantoprazole 40 mg tablet,delayed release (DR/EC) 40 mg PO DAILY insulin lispro 100 unit/mL insulin pen 3 unit SUBCUT TIDWM pregabalin 100 mg capsule 100 mg PO DAILY insulin glargine [Lantus Solostar U-100 Insulin] 100 unit/mL (3 mL) insulin pen 5 unit SUBCUT DAILY oxycodone 10 mg tablet 10 mg PO Q6H PRN (Reason: pain) Entresto 24-26 mg tablet 0.5 tablet PO Q12H ondansetron 8 mg tablet,disintegrating 8 mg PO Q6H PRN (Reason: nausea and vomiting) Follow-up/Referrals: PHYSICIAN NOT ON STAFF,NONSTAFF [Primary Care Provider] -
--- NOTE | 2024-09-08 05:46 | PC.NURSE ---
This RN and MADHURI abdul attempted to ambulate pt. Both RN's had to hold pt up to help him ambulate. EDP at side as well. Once pt returned to room, pt dropped himself onto stretcher.
--- NOTE | 2024-09-08 05:50 | PC.NURSE ---
Pt called out multiple times for face to be wiped due to him coughing sputum on himself. This RN had given pt multiple emesis bags which pt does not use.
--- NOTE | 2024-09-08 09:20 | ADMGEN ---
This patient, Douglas Wright, was admitted to [address] [place] [address] Room 330-02. Patient/family oriented to hospital policies and general routines including ID bracelet, bed and alarms, visiting hours, pain management, procedures, bathroom and other care routines, personal items, smoking policy, room service/diet, and visiting hours. Information on how to activate the Rapid Response Team has been discussed. Patient/Family are encouraged to report perceived risks to care and to ask questions if they do not understand what they are told or what they should do.
--- NOTE | 2024-09-08 09:37 | PC.NURSE ---
Pt denies any history of diabetes, but takes insulin and lantus. Pt was asked when the last time he took it was and he stated, whenever I needed it . Pt is not very alert.
--- NOTE | 2024-09-08 11:24 | PM.IMHP ---
H&P: HPI History of Present Illness Date/Time: 09/08/24 11:24 <Alvin Negro, Student - Last Filed: 09/08/24 16:23> Chief Complaint: Generalized weakness, pneumonia, alcohol withdrawal <Alvin Negro, Student - Last Filed: 09/08/24 16:23> Narrative: Patient is a 34-year-old male with past medical history of severe nonischemic cardiomyopathy due to alcohol abuse, alcoholic pancreatitis with prior episode of necrosis, suspected opiate addiction, chronic tobacco use, T2DM, and previous admission for alcohol withdrawal and pneumonia. On previous admission 08/29/24 patient fit SIRS criteria for sepsis with tachycardia and leukocytosis in the setting of bilateral basilar pneumonia. Sepsis quickly resolved but chest discomfort related to pneumonia persisted throughout treatment. Treatment consisted of ceftriaxone and azithromycin. Patient left AMA 08/31/24 and returned to the ED 09/07/24 with concern of alcohol withdrawal w/ seizures and was discharged with antiemetics and chlordiazepoxide taper for symptoms. Patient then presented on 09/08/24 requesting to be admitted for alcohol withdrawal, in addition to thinking he still has pneumonia. Patient has been experiencing generalized weakness, pleuritic chest pain, cough, and difficulty breathing. Cough as been productive of thick sputum, occasionally with blood streaks. Reports drinking .5 L of vodka to help with symptoms, along with clonidine around 2 days ago. Respiratory are reportedly worse than previous, partially treated pneumonia. Reports diaphoresis, vision disturbances, auditory hallucinations, myalgias, chills, lack of bowel movement for 3 days, headache, and abdominal pain. Abdominal pain began around 3 days ago as well, pointing to epigastric and suprapubic regions. OTC pain medication hasn't been helpful, patient takes hydrocodone chronically for peripheral neuropathy without alleviation. States he thinks he had a seizure yesterday, causing a fall where he struck his cheek. Per nurse, patient states he has had multiple episodes falls, and can't recount how many falls occurred. Negative for dysuria, changes in urinary frequency, vomiting, radiating chest pain, and dizziness. <Alvin Negro, Student - Last Filed: 09/08/24 16:23> Patient is a 34-year-old male with past medical history of severe nonischemic cardiomyopathy due to alcohol abuse, alcoholic pancreatitis with prior episode of necrosis, suspected opiate addiction, chronic tobacco use, T2DM, and previous admission for alcohol withdrawal and pneumonia. On previous admission 08/29/24 patient fit SIRS criteria for sepsis with tachycardia and leukocytosis in the setting of bilateral basilar pneumonia. Sepsis quickly resolved but chest discomfort related to pneumonia persisted throughout treatment. Treatment consisted of ceftriaxone and azithromycin. Patient left AMA 08/31/24 and returned to the ED 09/07/24 with concern of alcohol withdrawal w/ seizures and was discharged with antiemetics and chlordiazepoxide taper for symptoms. Patient then presented on 09/08/24 requesting to be admitted for alcohol withdrawal, in addition to thinking he still has pneumonia. Patient has been experiencing generalized weakness, pleuritic chest pain, cough, and difficulty breathing. Cough has been productive of thick sputum, occasionally with blood streaks. Reports drinking .5 L of vodka to help with symptoms, along with clonidine around 2 days ago. Respiratory symptoms are reportedly worse than previous, partially treated pneumonia. Reports diaphoresis, vision disturbances, auditory hallucinations, myalgias, chills, lack of bowel movement for 3 days, headache, and abdominal pain. Abdominal pain began around 3 days ago as well, pointing to epigastric and suprapubic regions. OTC pain medication hasn't been helpful, patient takes hydrocodone chronically for peripheral neuropathy without alleviation. States he thinks he had a seizure yesterday, causing a fall where he struck his cheek. not witnessed. CT scan completed in ED- head CT-no acute bleed. Per nurse, patient states he has had multiple episodes falls, and can't recount how many falls occurred. Negative for dysuria, changes in urinary frequency, vomiting, radiating chest pain, and dizziness. <Maribell Spence APRN - Last Filed: 09/08/24 16:33> Review of Systems Review of Systems: All systems reviewed & are unremarkable except as noted in HPI and below <Donnell Sloan - Last Filed: 09/08/24 16:23> All systems reviewed & are unremarkable except as noted in HPI and below (h/p) <Maribell Spence APRN - Last Filed: 09/08/24 16:33> [facility] Past Medical History Medical History: Medical History Severe protein-calorie malnutrition Diabetes mellitus Insomnia Peripheral neuropathy Dilated cardiomyopathy secondary to alcohol With prior episode of heart failure requiring ECMO fall 2023 due to cardiogenic shock Anxiety Hepatic steatosis Alcoholism Pancreatitis hx of necrotizing pancreatitis November 2023 Hx of pseudocyst that was drained <Alvin Negro, Student - Last Filed: 09/08/24 16:23> Surgical History Surgical History: Surgical History Personal history of extracorporeal membrane oxygenation (ECMO) History of cardiac catheterization No significant coronary artery disease History of ankle surgery <Alvin Negro, Student - Last Filed: 09/08/24 16:23> Family History Family History: Family History Father Heart disease Hypertension <Alvin Negro, Student - Last Filed: 09/08/24 16:23> Social History Social History: Social History Social History: Smokes 1ppd x16 years. History of drinking to 750 mL of hard liquor a day. He also smokes marijuana. Code status: Full code Surrogate decision maker: mother Smoking packs per day: 1 Smoking cigarettes per day: 20.0 Years smoked: 16 Smoking pack-years: 16.00 Smoking status: Current every day smoker Alcohol intake: current Substance use: current Substance use type: marijuana Do You Feel Safe in your Home?: Yes Lack of Transportation: No Lack of Food: Never True Current Housing: I Have Housing Concerned About Future Housing: No Difficulty Paying Gas/Electric Bills: No Difficulty Paying for Meds: No Currently Unemployed: No Education: High School Diploma/GED Difficulty w/ Childcare or Family Care: No Spiritual care concerns: No <Alvin Negro, Student - Last Filed: 09/08/24 16:23> Meds Home Medications and Allergies Home medications: Home Medications ?Medication ?Instructions ?Recorded ?Confirmed ?Type clonazepam 2 mg tablet 2 mg PO BID 07/28/24 09/08/24 History cyclobenzaprine 5 mg tablet 5 mg PO Q6H 07/28/24 09/08/24 History ferrous sulfate 325 mg (65 mg 325 mg PO DAILY 07/28/24 09/08/24 History iron) tablet folic acid 400 mcg tablet 400 mcg PO DAILY 07/28/24 09/08/24 History furosemide 20 mg tablet 20 mg PO DAILY 07/28/24 09/08/24 History hydrocodone 10 mg-acetaminophen 1 tablet PO Q4H PRN pain (scale 07/28/24 09/08/24 History 325 mg tablet score 4-6) melatonin 10 mg tablet 10 mg PO HS PRN sleep 07/28/24 09/08/24 History spironolactone 25 mg tablet 12.5 mg PO Q12H 07/28/24 09/08/24 History (Aldactone) zolpidem 10 mg tablet 10 mg PO HS PRN insomnia 07/28/24 09/08/24 History carvedilol 3.125 mg tablet 3.125 mg PO Q12H 08/29/24 09/08/24 History insulin glargine 100 unit/mL (3 5 unit subcut DAILY 08/29/24 09/08/24 History mL) subcutaneous pen (Lantus Solostar U-100 Insulin) insulin lispro 100 unit/mL 3 unit subcut TIDWM 08/29/24 09/08/24 History subcutaneous pen ivabradine 5 mg tablet 5 mg PO DAILY 08/29/24 09/08/24 History ondansetron 8 mg disintegrating 8 mg PO Q6H PRN nausea and vomiting 08/29/24 09/08/24 History tablet oxycodone 10 mg tablet 10 mg PO Q6H PRN pain 08/29/24 09/08/24 History pantoprazole 40 mg tablet,delayed 40 mg PO DAILY 08/29/24 09/08/24 History release pregabalin 100 mg capsule 100 mg PO DAILY 08/29/24 09/08/24 History sacubitril 24 mg-valsartan 26 mg 0.5 tablet PO Q12H 08/29/24 09/08/24 History tablet (Entresto) chlordiazepoxide HCl 25 mg capsule 25 mg PO Q6-12H PRN alcohol 09/07/24 09/08/24 Rx withdrawal #15 caps famotidine 20 mg tablet 20 mg PO DAILY #30 tabs 09/07/24 09/08/24 Rx ondansetron 4 mg disintegrating 4 mg PO Q8H PRN nausea and 09/07/24 09/08/24 Rx tablet vomiting #10 tabs <Alvin Norton Negro, Student - Last Filed: 09/08/24 16:23> Allergies/Adverse reactions: Allergies Allergy/AdvReac Type Severity Reaction Status Date / Time Sulfa (Sulfonamide Allergy Unknown Unknown Verified 09/07/24 05:09 Antibiotics) sulfamethoxazole Allergy Unknown Unknown Verified 09/07/24 05:09 trimethoprim Allergy Unknown Unknown Verified 09/07/24 05:09 <Alvin Negro, Student - Last Filed: 09/08/24 16:23> Vital Signs Vital Signs - 24 hr 09/08/24 00:44 09/08/24 01:50 09/08/24 03:29 Temperature 98.5 F 98.7 F Pulse Rate 103 H 101 H 95 Respiratory Rate 21 H 15 Blood Pressure 106/87 92/81 L Pulse Oximetry 98 96 Oxygen Delivery Room Air 09/08/24 04:15 09/08/24 05:30 09/08/24 06:20 Temperature Pulse Rate 101 H 102 H 103 H Respiratory Rate 20 23 H 22 H Blood Pressure 110/89 107/88 114/87 Pulse Oximetry 95 95 97 Oxygen Delivery 09/08/24 09:13 Temperature Pulse Rate Respiratory Rate Blood Pressure Pulse Oximetry Oxygen Delivery Room Air <Alvin Negro, Student - Last Filed: 09/08/24 16:23> Exam Narrative: GENERAL: Difficult to ascertain distress due to low energy level, frail appearance HEAD: Normal with no signs of head trauma. EYES: EOMI, PERRL, conjunctiva normal ENT: Hearing grossly intact LUNGS: Mild tachypnea, and labored breathing HEART: Regular rate and rhythm ABD: Diffuse 6/10 tenderness to light palpation with the exception of the RLQ. 10/10 tenderness suprapubically and epigastrically EXT: Pedal and brachial pulses intact bilaterally SKIN: [No rashes or lesions.] NEURO: Somnolent but wakes to voice. Significant bilateral weakness present. No gross focal sensory or strength deficits. No obvious tremors. PSYCH: Normal affect <Alvin Norton Negro, Student - Last Filed: 09/08/24 16:23> GENERAL: Difficult to ascertain distress due to low energy level, frail appearance HEAD: Normal with no signs of head trauma. EYES: EOMI, PERRL, conjunctiva normal ENT: Hearing grossly intact LUNGS: Mild tachypnea, and labored breathing HEART: Regular rate and rhythm ABD: Diffuse 6/10 tenderness to light palpation with the exception of the RLQ. 10/10 tenderness suprapubically and epigastrically EXT: Pedal and brachial pulses intact bilaterally SKIN: [No rashes or lesions.] NEURO: Somnolent but wakes to voice. Significant bilateral weakness present. No gross focal sensory or strength deficits. No obvious tremors. PSYCH: flat affect <Maribell Spence [employer]ICE [employer] TECHNICIAN - Last Filed: 09/08/24 16:33> H&P: Results Labs Labs: Short CBC 09/08/24 Range/Units 01:45 WBC 9.9 (4.5-10.0) K/mm3 Hgb 10.9 L (14.0-18.0) g/dL Hct 34.2 L (42.0-52.0) % Plt Count 298 (150-375) k/mm3 BMP 09/08/24 01:45 Sodium 128 L Potassium 5.1 H Chloride 85 L Carbon Dioxide 32 H BUN 19 Creatinine 0.77 Glucose 158 H Calcium 9.3 Liver Function 09/08/24 Range/Units 01:45 Total Bilirubin 1.4 H (0.2-1.3) mg/dL AST 587 H (17-59) U/L ALT 126 H (6-50) U/L Alkaline Phosphatase 67 (38-126) U/L Albumin 4.5 (3.5-5.1) g/dL <Alvin Negro Student - Last Filed: 09/08/24 16:23> Assessment and Plan Assessment and plan (1) Generalized weakness: Code(s): R53.1 - Weakness <Alvin Negro Student - Last Filed: 09/08/24 16:23> Status: Acute <Alvin Negro Student - Last Filed: 09/08/24 16:23> (2) Adult failure to thrive: Code(s): R62.7 - Adult failure to thrive <Alvin Negro Student - Last Filed: 09/08/24 16:23> Status: Acute <Alvin Negro Student - Last Filed: 09/08/24 16:23> (3) Peripheral neuropathy: Qualifiers: Peripheral neuropathy type: polyneuropathy associated with critical illness Qualified Code(s): G62.81 - Critical illness polyneuropathy <Alvin Negro - Last Filed: 09/08/24 16:23> Code(s): G62.9 - Polyneuropathy, unspecified <Alvin Negro - Last Filed: 09/08/24 16:23> Status: Acute <Alvin Negro Last Filed: 09/08/24 16:23> (4) Dilated cardiomyopathy secondary to alcohol: Code(s): I42.6 - Alcoholic cardiomyopathy <Alvin Negro - Last Filed: 09/08/24 16:23> Status: Acute <Alvin Negro Last Filed: 09/08/24 16:23> (5) Pneumonia: Qualifiers: Laterality: unspecified laterality Lung location: unspecified part of lung Pneumonia type: due to unspecified organism Qualified Code(s): J18.9 - Pneumonia, unspecified organism <Alvin Negro - Last Filed: 09/08/24 16:23> Code(s): J18.9 - Pneumonia, unspecified organism <Alvin Negro Last Filed: 09/08/24 16:23> Status: Acute <Alvin Negro Last Filed: 09/08/24 16:23> (6) Alcohol withdrawal: Qualifiers: Complication of substance-induced condition: uncomplicated Qualified Code(s): F10.930 - Alcohol use, unspecified with withdrawal, uncomplicated <Alvin Negro - Last Filed: 09/08/24 16:23> Code(s): F10.939 - Alcohol use, unspecified with withdrawal, unspecified <Alvin Negro Last Filed: 09/08/24 16:23> Status: Acute <Alvin Negro Last Filed: 09/08/24 16:23> (7) Diabetes mellitus: Qualifiers: Diabetes mellitus complication status: without complication Diabetes mellitus prison insulin use: with prison use Diabetes mellitus type: due to underlying condition Qualified Code(s): E08.9 - Diabetes mellitus due to underlying condition without complications; Z79.4 - jail (current) use of insulin <Alvin Negro Last Filed: 09/08/24 16:23> Code(s): E11.9 - Type 2 diabetes mellitus without complications <Alvin Negro Last Filed: 09/08/24 16:23> Status: Acute <Alvin Negro Last Filed: 09/08/24 16:23> (8) Tobacco abuse: Code(s): Z72.0 - Tobacco use <Alvin Negro Last Filed: 09/08/24 16:23> Status: Acute <Alvin Negro Last Filed: 09/08/24 16:23> (9) Opiate dependence, continuous: Code(s): F11.20 - Opioid dependence, uncomplicated <Alvin Negro Last Filed: 09/08/24 16:23> Status: Acute <Alvin Negro Last Filed: 09/08/24 16:23> (10) Abdominal pain: Qualifiers: Abdominal location: generalized Qualified Code(s): R10.84 - Generalized abdominal pain <Alvin Negro Last Filed: 09/08/24 16:23> Code(s): R10.9 - Unspecified abdominal pain <lAvin Negro Last Filed: 09/08/24 16:23> Status: Acute <Alvin Negro Last Filed: 09/08/24 16:23> (11) Moderate protein-calorie malnutrition: Code(s): E44.0 - Moderate protein-calorie malnutrition <Alvin Negro Last Filed: 09/08/24 16:23> Status: Acute <Alvin Negro Last Filed: 09/08/24 16:23> (12) Alcoholic cardiomyopathy: Code(s): I42.6 - Alcoholic cardiomyopathy <Alvin Negro Last Filed: 09/08/24 16:23> Status: Acute <Alvin Negro Last Filed: 09/08/24 16:23> Assessment and Plan: # Pneumonia: - Previous admission to hospital for treatment of sepsis due to pneumonia discovered on CT (bilateral lower lobe) - Lungs persistently clear on cxr - Treated with ceftriaxone and azithromycin 08/29/24 - 08/31/24 then patient left AMA - Blood cultures from 08/29/24 no growth - Throughout stay lungs were clear to auscultation bilaterally - Pleuritic pain developed during and after previous stay, along with increased difficulty breathing, cough, and production of sputum - Progressively worsened - Cxr clear on 09/08/24 - WBC wnl, negative for fever - Monitor for symptoms, WBC, fever, change in sputum - Consider sputum culture and restarting of abx therapy if symptoms worsen - Incentive spirometry when able - PT/OT ordered # Alcohol withdrawal: - Admission due to patients request to help with withdrawal process - Presentation to ED 09/07/24 was discharged with chlordiazepoxide, famotidine, and ondansetron to help with process. Unable to tolerate symptoms - Patient expresses need for Ativan to successfully withdraw - Started on CIWA protocol - CIWA at 12:00 on 09/08 was 13 - Q2 neuro checks # T2DM/peripheral neuropathy - Low dose sliding scale - Hypoglycemia protocol - Chronic peripheral neuropathy in left knee down to foot and right foot, continue pregabalin - Most recent POC glucose 149 - Continue q6H and ACHS POC glucose # Dilated cardiomyopathy - Hx of ECMO from cardiogenic shock leading to hospice. Patient revoked hospice back in april and was seeking placement on a heart transplant list - Last EF was up to 39% according to patient - Followed by Dr. Mahmood at [facility] and Dr. Mcelroy at [place] - No acute symptoms of exacerbation, benign exam regarding fluid overload - Pro BNP 250, slight elevation, thought to be chronic - Entresto and spironolactone restarted, carvedilol restarted - Monitor for symptoms #Opioid dependance - Complicated by chronic pain - Currently on CIWA protocol - Monitor for pain symptoms as somnolence resolves #Abdominal pain - Epigastric and suprapubic pain present at rest. 10/10 on light palpation - Diffuse abdominal pain present with light palpation 5/10 pain. 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 <Alvin Negro, Student - Last Filed: 09/08/24 16:23> # Pneumonia: - Previous admission to hospital for treatment of sepsis due to pneumonia discovered on CT (bilateral lower lobe) - Lungs persistently clear on cxr - Treated with ceftriaxone and azithromycin 08/29/24 - 08/31/24 then patient left AMA - Blood cultures from 08/29/24 no growth - Throughout stay lungs were clear to auscultation bilaterally - Pleuritic pain developed during and after previous stay, along with increased difficulty breathing, cough, and production of sputum - Progressively worsened per pt's report - Cxr clear on 09/08/24 - WBC wnl, negative for fever - Monitor for symptoms, WBC, fever, change in sputum - Consider sputum culture and restarting of abx therapy if symptoms worsen - Incentive spirometry ordered - PT/OT ordered - out of bed ambulate tid and prn # Alcohol withdrawal: - Admission due to patients request to help with withdrawal process - Presentation to ED 09/07/24 was discharged with chlordiazepoxide, famotidine, and ondansetron to help with process. Unable to tolerate symptoms - Patient expresses need for Ativan to successfully withdraw - Started on CIWA protocol - CIWA at 12:00 on 09/08 was 13 - Q2 neuro checks # T2DM/peripheral neuropathy - Low dose sliding scale - Hypoglycemia protocol - Chronic peripheral neuropathy in left knee down to foot and right foot, continue pregabalin - Most recent POC glucose 149 - Continue q6H and ACHS POC glucose # Dilated cardiomyopathy - Hx of ECMO from cardiogenic shock leading to hospice. Patient revoked hospice back in april and was seeking placement on a heart transplant list - Last EF was up to 39% according to patient - Followed by Dr. Mahmood at [facility] and Dr. Mcelroy at [place] - No acute symptoms of exacerbation, benign exam regarding fluid overload - Pro BNP 250, slight elevation, thought to be chronic - Entresto and spironolactone restarted, carvedilol restarted - Monitor for symptoms #Opioid dependance - Complicated by chronic pain - Currently on CIWA protocol - Monitor for pain symptoms as somnolence resolves - will hold ambien, restart norco 5/325 mg prn for right now and add Toradol for pain - monitor resp status #Abdominal pain - Epigastric and suprapubic pain present at rest. 10/10 on light palpation - Diffuse abdominal pain present with light palpation 5/10 pain. 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 Of note- due to possible reported seizures- will continue frequent neuro checks and consult neurology <Maribell Spence APRN - Last Filed: 09/08/24 16:33> Quality VTE Prophylaxis VTE prophylaxis: mechanical ordered <Donnell Sloan - Last Filed: 09/08/24 16:23> Hospitalist [facility] Advance Care Plan I have confirmed that the patient's Advanced Care Plan is present, code status is documented, or surrogate decision maker is listed in patient medical record.: Yes <Maribell Spence APRN - Last Filed: 09/08/24 16:33> Medication Reconciliation I have utilized all available resources to obtain, update and review the patients current medications (includes all prescriptions, OTC, herbals, cannabis, and nutritional supplements).: Yes <Maribell Spence APRN - Last Filed: 09/08/24 16:33> The patient is not eligible for med reconciliation; the patient is in a emergent medical situation where delaying treatment would jeopardize the patients health.: Yes <Maribell Spence APRN - Last Filed: 09/08/24 16:33>
--- NOTE | 2024-09-08 12:02 | P.CONNEU_ITS ---
Assessment and Plan Assessment and plan (1) Adult failure to thrive: Code(s): R62.7 - Adult failure to thrive Status: Acute (2) Generalized weakness: Code(s): R53.1 - Weakness Status: Acute (3) Diabetes mellitus: Qualifiers: Diabetes mellitus type: due to underlying condition Diabetes mellitus long term care pharmacist insulin use: with long term care pharmacist use Diabetes mellitus complication status: without complication Qualified Code(s): E08.9 - Diabetes mellitus due to underlying condition without complications; Z79.4 - longterm (current) use of insulin Code(s): E11.9 - Type 2 diabetes mellitus without complications Status: Acute (4) Peripheral neuropathy: Qualifiers: Peripheral neuropathy type: polyneuropathy associated with critical illness Qualified Code(s): G62.81 - Critical illness polyneuropathy Code(s): G62.9 - Polyneuropathy, unspecified Status: Acute (5) Dilated cardiomyopathy secondary to alcohol: Code(s): I42.6 - Alcoholic cardiomyopathy Status: Acute (6) Alcoholism: Code(s): F10.20 - Alcohol dependence, uncomplicated Status: Chronic (7) Alcohol withdrawal: Qualifiers: Complication of substance-induced condition: uncomplicated Qualified Code(s): F10.930 - Alcohol use, unspecified with withdrawal, uncomplicated Code(s): F10.939 - Alcohol use, unspecified with withdrawal, unspecified Status: Acute Plan 1. Severe generalized weakness with history of diabetes mellitus, peripheral neuropathy ,cardiomyopathy, alcohol use disorder 2. Status post ECMO last year 3. Concern about the possibility of alcohol withdrawal seizure with history of last drink about 3 days ago. Will need to be observe in the hospital for the possibility of the seizure with seizure precautions and general supportive care otherwise. Consult date: 09/08/24 HPI: Douglas Wright is a 34 year old male Admitted to the hospital through the emergency room for the complaints of being in withdrawal with nausea. Patient does have ongoing history of alcohol use disorder complicated by cardiomyopathy and was discharge this morning. His medications included cyclobenzaprine 5mg q.6 hours, furosemide 20mg daily, Aldactone 12.5mg q.12 hours, carvedilol 3.125mg q.12 hours, insulin glad again 5units subQ daily, insulin lispro 3units subQ 3 times a day with meals, pregabalin 100mg daily, in addition to I have a Cory 5mg daily, and p.r.n. medications of oxycodone 10mg q.6 hours, zolpidem 10mg HS p.r.n. melatonin 10mg HS P hydrocodone 10/325 q.4 hours p.r.n. cyclobenzaprine 5mg q.6 hours, and clonazepam 2mg twice a day. He is reportedly allergic to sulfa, has history of diabetes mellitus, secondary complications of peripheral neuropathy, dilated cardiomyopathy secondary to alcohol, chronic alcoholism, history of necrotizing pancreatitis in November of 2023, history of ECMO as well, his currently everyday smoker, currently alcohol intake her, and initial exam in the ER documented him being extremely sleepy with normal vital sign except pulse of 103, most up-to-date CBC with hemoglobin of 10.9 ,glucose of 150, lactic acid of 1.3 ,drug screen positive benzodiazepine . 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 Review of Systems 2 Review of Systems: All systems reviewed & are unremarkable except as noted in HPI and below PMFSH Past Medical History Medical History Severe protein-calorie malnutrition Diabetes mellitus Insomnia Peripheral neuropathy Dilated cardiomyopathy secondary to alcohol With prior episode of heart failure requiring ECMO fall 2023 due to cardiogenic shock Anxiety Hepatic steatosis Alcoholism Pancreatitis hx of necrotizing pancreatitis November 2023 Hx of pseudocyst that was drained Surgical History Surgical History Personal history of extracorporeal membrane oxygenation (ECMO) History of cardiac catheterization No significant coronary artery disease History of ankle surgery Family History Family History Father Heart disease Hypertension Social History Social History Social History: Smokes 1ppd x16 years. History of drinking to 750 mL of hard liquor a day. He also smokes marijuana. Code status: Full code Surrogate decision maker: mother Smoking packs per day: 1 Smoking cigarettes per day: 20.0 Years smoked: 16 Smoking pack-years: 16.00 Smoking status: Current every day smoker Alcohol intake: current Substance use: current Substance use type: marijuana Do You Feel Safe in your Home?: Yes Lack of Transportation: No Lack of Food: Never True Current Housing: I Have Housing Concerned About Future Housing: No Difficulty Paying Gas/Electric Bills: No Difficulty Paying for Meds: No Currently Unemployed: No Education: High School Diploma/GED Difficulty w/ Childcare or Family Care: No Spiritual care concerns: No Meds Home Medications and Allergies Home Medications ?Medication ?Instructions ?Recorded ?Confirmed ?Type clonazepam 2 mg tablet 2 mg PO BID 07/28/24 09/08/24 History cyclobenzaprine 5 mg tablet 5 mg PO Q6H 07/28/24 09/08/24 History ferrous sulfate 325 mg (65 mg 325 mg PO DAILY 07/28/24 09/08/24 History iron) tablet folic acid 400 mcg tablet 400 mcg PO DAILY 07/28/24 09/08/24 History furosemide 20 mg tablet 20 mg PO DAILY 07/28/24 09/08/24 History hydrocodone 10 mg-acetaminophen 1 tablet PO Q4H PRN pain (scale 07/28/24 09/08/24 History 325 mg tablet score 4-6) melatonin 10 mg tablet 10 mg PO HS PRN sleep 07/28/24 09/08/24 History spironolactone 25 mg tablet 12.5 mg PO Q12H 07/28/24 09/08/24 History (Aldactone) zolpidem 10 mg tablet 10 mg PO HS PRN insomnia 07/28/24 09/08/24 History carvedilol 3.125 mg tablet 3.125 mg PO Q12H 08/29/24 09/08/24 History insulin glargine 100 unit/mL (3 5 unit subcut DAILY 08/29/24 09/08/24 History mL) subcutaneous pen (Lantus Solostar U-100 Insulin) insulin lispro 100 unit/mL 3 unit subcut TIDWM 08/29/24 09/08/24 History subcutaneous pen ivabradine 5 mg tablet 5 mg PO DAILY 08/29/24 09/08/24 History ondansetron 8 mg disintegrating 8 mg PO Q6H PRN nausea and vomiting 08/29/24 09/08/24 History tablet oxycodone 10 mg tablet 10 mg PO Q6H PRN pain 08/29/24 09/08/24 History pantoprazole 40 mg tablet,delayed 40 mg PO DAILY 08/29/24 09/08/24 History release pregabalin 100 mg capsule 100 mg PO DAILY 08/29/24 09/08/24 History sacubitril 24 mg-valsartan 26 mg 0.5 tablet PO Q12H 08/29/24 09/08/24 History tablet (Entresto) chlordiazepoxide HCl 25 mg capsule 25 mg PO Q6-12H PRN alcohol 09/07/24 09/08/24 Rx withdrawal #15 caps famotidine 20 mg tablet 20 mg PO DAILY #30 tabs 09/07/24 09/08/24 Rx ondansetron 4 mg disintegrating 4 mg PO Q8H PRN nausea and 09/07/24 09/08/24 Rx tablet vomiting #10 tabs Allergies Allergy/AdvReac Type Severity Reaction Status Date / Time Sulfa (Sulfonamide Allergy Unknown Unknown Verified 09/07/24 05:09 Antibiotics) sulfamethoxazole Allergy Unknown Unknown Verified 09/07/24 05:09 trimethoprim Allergy Unknown Unknown Verified 09/07/24 05:09 Vital Signs Vital Signs - 24 hr 09/08/24 00:44 09/08/24 01:50 09/08/24 03:29 Temperature 36.9 C 37.1 C Pulse Rate 103 H 101 H 95 Respiratory Rate 21 H 15 Blood Pressure 106/87 92/81 L Pulse Oximetry 98 96 Oxygen Delivery Room Air 09/08/24 04:15 09/08/24 05:30 09/08/24 06:20 Temperature Pulse Rate 101 H 102 H 103 H Respiratory Rate 20 23 H 22 H Blood Pressure 110/89 107/88 114/87 Pulse Oximetry 95 95 97 Oxygen Delivery 09/08/24 09:13 Temperature Pulse Rate Respiratory Rate Blood Pressure Pulse Oximetry Oxygen Delivery Room Air Exam 2 Narrative: Exam at this particular time revealed him to be awake, but somewhat fatigued and unable to keep his eyes open or caryyout the conversation with the physician, able to move both upper and lower extremities spontaneously, when asked to open the eyes did open his eyes ,there was no spontaneous nystagmus and was able to follow the verbal commands ,look to the right side, left side, up and down without any spontaneous nystagmus, his speech was of low volume although he followed verbal commands appropriately and looked to the right and left when asked by the physician and complained of being wiped out, head was normocephalic with no bruit ,neck was supple with no meningeal signs, was able to move right to left ,heart was regular lungs were clear to auscultation ,abdomen was soft nontender with normal bowel sounds, neurologically ,he was easily arousable, was able to carry out the conversation and follow the instructions, pupils round regular, khan of vision were full in all 4 quadrants, extraocular movements were full with no resting or gaze nystagmus ,facial grimace was symmetrical tongue move in the oral cavity with no fasciculation, motor examination revealed him to have decrease in strength 4/5 in upper and lower extremities proximally and,distally, absent deep tendon reflexes and downgoing plantar responses , decreased sensation in both lower extremities, he was unable to perform finger to nose finger or heel to knee to baeza. Results Labs 09/08/24 01:45 09/08/24 01:45 Labs: Short CBC 09/08/24 Range/Units 01:45 WBC 9.9 (4.5-10.0) K/mm3 Hgb 10.9 L (14.0-18.0) g/dL Hct 34.2 L (42.0-52.0) % Plt Count 298 (150-375) k/mm3 BMP 09/08/24 01:45 Sodium 128 L Potassium 5.1 H Chloride 85 L Carbon Dioxide 32 H BUN 19 Creatinine 0.77 Glucose 158 H Calcium 9.3 Liver Function 09/08/24 Range/Units 01:45 Total Bilirubin 1.4 H (0.2-1.3) mg/dL AST 587 H (17-59) U/L ALT 126 H (6-50) U/L Alkaline Phosphatase 67 (38-126) U/L Albumin 4.5 (3.5-5.1) g/dL
[2024-09-08] MEDS: LORazepam INJ (*CRX) 2 MG/ML VIAL IV PUSH ×3 (12:03→23:44)
[2024-09-08] MEDS: chlordiazePOXIDE (*CRX) 25 MG CAPSULE PO ×3 (12:03→21:56)
[2024-09-08 12:12] LABS: Glucose Point of Care 149 mg/dl (65-105)
--- NOTE | 2024-09-08 13:06 | PCPTNOTE ---
Attempted PT evaluation. Per nurse, She did not think pt is safe to participate in therapy at this time due to medications recently given increasing pt's risk of falling. Will follow.
[2024-09-08 20:55] LABS: Glucose Point of Care 282 mg/dl (65-105)
[2024-09-08] MEDS: guaiFENesin 12 HR 600 MG TABCR 1200 MG PO (21:56)
[2024-09-08] MEDS: carvediloL 3.125 MG TABLET PO (21:57)
[2024-09-08] MEDS: INSULIN GLARGINE (*BKC) 100 UNITS/ML SUB-Q (21:59)
[2024-09-08] MEDS: ACETAMINOPHEN 500 MG TABLET PO (23:29)
[2024-09-08] MEDS: SACUBITRIL/VALSARTAN 24-26 MG TABLET 0.5 TAB PO (23:31)
[2024-09-09] VITALS (13 sets, daily range): BP systolic 80–107; BP diastolic 54–73; PULSE 86–107; RESP 14–17; TEMP 36–36.4; O2SAT 97–100
[2024-09-09 02:09] LABS: Glucose Point of Care 133 mg/dl (65-105)
[2024-09-09] MEDS: SODIUM CHLORIDE 0.9% IV 500 ML 250 ML (04:49)
--- NOTE | 2024-09-09 04:50 | PC.NURSE ---
Addendum entered by Amador Hayes RN 09/09/24 06:27: IV fluid documented on Stock pulled med, not ordered fluids on JUL Original Note: Dr Coates notified 0430 BP 80s/60s, no other changes in pt condition. Order received for 500ml NS at 250ml/hr.
[2024-09-09 05:54] LABS: Basophils Percent Auto 0.4 % (0.2-1.2); Eosinophils Absolute Auto 0.3 K/mm3 (0-0.3); Eosinophils Percent Auto 3.5 % (0-4.4); Hematocrit 39.8 % (42.0-52.0); Hemoglobin 12.6 g/dL (14.0-18.0); Immature Granulocyte Absolute 0.02 K/mm3 (0.00-0.031); Immature Granulocyte Percent A 0.2 % (0-0.5); Lymphocytes Absolute Auto 1.66 K/mm3 (0.9-3.2); Lymphocytes Percent Auto 17.1 % (18.3-44.2); Mean Corpuscular HGB Conc 31.7 g/dl (32-36); Mean Corpuscular Hemoglobin 29.1 pg (26-34); Mean Corpuscular Volume 91.9 fl (80-100); Monocytes Absolute Auto 0.7 K/mm3 (0.1-0.6); Monocytes Percent Auto 6.7 % (2.6-8.5); Neutrophils Percent Auto 72.1 % (45.5-73.1); Platelet Count Result 243 k/mm3 (150-375); Red Blood Count 4.33 M/mm3 (4.6-6.20); Red Cell Distribution Width 17.2 % (11.5-14.5); White Blood Count 9.7 K/mm3 (4.5-10.0)
[2024-09-09 06:08] LABS: Alanine Aminotransferase 132 U/L (6-50); Albumin Level 4.4 g/dL (3.5-5.1); Alkaline Phosphatase 65 U/L (38-126); Aspartate Amino Transferase 315 U/L (17-59); Bilirubin,Total 0.6 mg/dL (0.2-1.3); Blood Urea Nitrogen 19 mg/dL (9-20); Calcium 8.9 mg/dL (8.4-10.2); Carbon Dioxide > 40 mmol/L (22-30); Chloride 88 mmol/L (98-107); Estimated CRCL calculation 109 ml/min; Estimated Glomerular Filt Rate > 60; Glucose 114 mg/dL (65-110); Lipase 23 U/L (23-300); Magnesium 2.8 mg/dL (1.6-2.3); Phosphorus 3.9 mg/dL (2.5-4.5); Potassium 3.5 mmol/L (3.4-5.0); Sodium 134 mmol/L (137-145)
[2024-09-09 06:14] LABS: INR 0.9; Prothrombin Time 12.5 Seconds (11.1-14.7)
[2024-09-09 07:59] LABS: Glucose Point of Care 215 mg/dl (65-105)
[2024-09-09] MEDS: INSULIN ASPART (*BKC) 100 UNITS/ML SUB-Q ×2 (08:05→17:03)
--- NOTE | 2024-09-09 08:14 | PCPTNOTE ---
Attempted PT evaluation, pt refused without a reason given. Nurse aware. Will follow.
[2024-09-09] MEDS: FOLIC ACID 0.4 MG TABLET PO (08:25)
[2024-09-09] MEDS: PREGABALIN (*CRX) 50 MG CAPSULE 100 MG PO (08:25)
[2024-09-09] MEDS: SPIRONOLACTONE 12.5 MG TABLET PO ×2 (08:26→20:58)
[2024-09-09] MEDS: FAMOTIDINE 20 MG TABLET PO (08:26)
[2024-09-09] MEDS: FERROUS SULFATE 325 MG TABLET DR BY MOUTH (08:26)
[2024-09-09] MEDS: guaiFENesin 12 HR 600 MG TABCR 1200 MG PO ×2 (08:27→20:58)
[2024-09-09] MEDS: PANTOPRAZOLE 40 MG TABLET PO (08:27)
[2024-09-09] MEDS: ENOXAPARIN 40 MG/0.4 ML SYRINGE SUB-Q (08:27)
[2024-09-09] MEDS: SACUBITRIL/VALSARTAN 24-26 MG TABLET 0.5 TAB PO ×2 (08:28→20:57)
--- NOTE | 2024-09-09 08:39 | P.PNIM_ITS ---
Progress Note: A&P Assessment and Plan (1) Generalized weakness: Code(s): R53.1 - Weakness Status: Acute (2) Adult failure to thrive: Code(s): R62.7 - Adult failure to thrive Status: Acute (3) Peripheral neuropathy: Qualifiers: Peripheral neuropathy type: polyneuropathy associated with critical illness Qualified Code(s): G62.81 - Critical illness polyneuropathy Code(s): G62.9 - Polyneuropathy, unspecified Status: Acute (4) Dilated cardiomyopathy secondary to alcohol: Code(s): I42.6 - Alcoholic cardiomyopathy Status: Acute (5) Pneumonia: Qualifiers: Laterality: unspecified laterality Lung location: unspecified part of lung Pneumonia type: due to unspecified organism Qualified Code(s): J18.9 - Pneumonia, unspecified organism Code(s): J18.9 - Pneumonia, unspecified organism Status: Acute (6) Alcohol withdrawal: Qualifiers: Complication of substance-induced condition: uncomplicated Qualified Code(s): F10.930 - Alcohol use, unspecified with withdrawal, uncomplicated Code(s): F10.939 - Alcohol use, unspecified with withdrawal, unspecified Status: Acute (7) Diabetes mellitus: Qualifiers: Diabetes mellitus complication status: without complication Diabetes mellitus assisted insulin use: with assisted use Diabetes mellitus type: due to underlying condition Qualified Code(s): E08.9 - Diabetes mellitus due to underlying condition without complications; Z79.4 - long term care pharmacist (current) use of insulin Code(s): E11.9 - Type 2 diabetes mellitus without complications Status: Acute (8) Tobacco abuse: Code(s): Z72.0 - Tobacco use Status: Acute (9) Opiate dependence, continuous: Code(s): F11.20 - Opioid dependence, uncomplicated Status: Acute (10) Abdominal pain: Qualifiers: Abdominal location: generalized Qualified Code(s): R10.84 - Generalized abdominal pain Code(s): R10.9 - Unspecified abdominal pain Status: Acute (11) Moderate protein-calorie malnutrition: Code(s): E44.0 - Moderate protein-calorie malnutrition Status: Acute (12) Alcoholic cardiomyopathy: Code(s): I42.6 - Alcoholic cardiomyopathy Status: Acute Plan # Pneumonia: - Previous admission to hospital for treatment of sepsis due to pneumonia discovered on CT (bilateral lower lobe) - Lungs persistently clear on cxr - Treated with ceftriaxone and azithromycin 08/29/24 - 08/31/24 then patient left AMA - Blood cultures from 08/29/24 no growth - Throughout stay lungs were clear to auscultation bilaterally - Pleuritic pain developed during and after previous stay, along with increased difficulty breathing, cough, and production of sputum - Progressively worsened per pt's report - Cxr clear on 09/08/24 - WBC wnl, negative for fever - Monitor for symptoms, WBC, fever, change in sputum - Consider sputum culture and restarting of abx therapy if symptoms worsen - Incentive spirometry ordered - PT/OT ordered - out of bed ambulate tid and prn # Alcohol withdrawal: - Admission due to patients request to help with withdrawal process - Presentation to ED 09/07/24 was discharged with chlordiazepoxide, famotidine, and ondansetron to help with process. Unable to tolerate symptoms - Patient expresses need for Ativan to successfully withdraw - Started on CIWA protocol - CIWA at 12:00 on 09/08 was 13 - Q2 neuro checks # T2DM/peripheral neuropathy - Low dose sliding scale - Hypoglycemia protocol - Chronic peripheral neuropathy in left knee down to foot and right foot, continue pregabalin - Most recent POC glucose 149 - Continue q6H and ACHS POC glucose # Dilated cardiomyopathy - Hx of ECMO from cardiogenic shock leading to hospice. Patient revoked hospice back in april and was seeking placement on a heart transplant list - Last EF was up to 39% according to patient - Followed by Dr. Mahmood at [facility] and Dr. Mcelroy at [place] - No acute symptoms of exacerbation, benign exam regarding fluid overload - Pro BNP 250, slight elevation, thought to be chronic - Entresto and spironolactone restarted, carvedilol restarted - Monitor for symptoms #Opioid dependance - Complicated by chronic pain - Currently on CIWA protocol - Monitor for pain symptoms as somnolence resolves - will hold ambien, restart norco 5/325 mg prn for right now and add Toradol for pain - monitor resp status #Abdominal pain - Epigastric and suprapubic pain present at rest. 10/10 on light palpation - Diffuse abdominal pain present with light palpation 5/10 pain. 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 Patient wanted to be evaluated by hospice. Patient was previously under hospice but later it was discontinued. Review of Systems Review of Systems: All systems reviewed & are unremarkable except as noted in HPI and below (h/p) Exam Narrative: GENERAL: Difficult to ascertain distress due to low energy level, frail appearance HEAD: Normal with no signs of head trauma. EYES: EOMI, PERRL, conjunctiva normal ENT: Hearing grossly intact LUNGS: Mild tachypnea, and labored breathing HEART: Regular rate and rhythm ABD: Diffuse 6/10 tenderness to light palpation with the exception of the RLQ. 10/10 tenderness suprapubically and epigastrically EXT: Pedal and brachial pulses intact bilaterally SKIN: [No rashes or lesions.] NEURO: Somnolent but wakes to voice. Significant bilateral weakness present. No gross focal sensory or strength deficits. No obvious tremors. PSYCH: flat affect Objective Data Vital Signs Vital Signs: Vital Signs - 24 hr 09/08/24 09:13 09/08/24 11:17 09/08/24 12:00 Temperature Pulse Rate Pulse Rate [Left Radial] 100 100 Respiratory Rate Blood Pressure 114/87 Pulse Oximetry Oxygen Delivery Room Air Oxygen Flow Rate 09/08/24 14:00 09/08/24 16:00 09/08/24 16:00 Temperature 97.2 F L Pulse Rate 100 99 Pulse Rate [Left Radial] 96 Respiratory Rate 20 Blood Pressure 97/76 L 107/86 Pulse Oximetry 95 Oxygen Delivery Oxygen Flow Rate 09/08/24 20:00 09/08/24 20:00 09/08/24 21:25 Temperature 97.2 F L Pulse Rate 94 87 Pulse Rate [Left Radial] Respiratory Rate 14 Blood Pressure 92/70 L Pulse Oximetry 100 99 Oxygen Delivery Nasal Cannula Oxygen Flow Rate 3 09/08/24 21:57 09/08/24 23:50 09/09/24 00:00 Temperature 97.7 F Pulse Rate 87 98 88 Pulse Rate [Left Radial] Respiratory Rate 14 Blood Pressure 103/76 Pulse Oximetry 100 Oxygen Delivery Oxygen Flow Rate 09/09/24 04:00 09/09/24 04:00 09/09/24 06:11 Temperature 97.5 F L Pulse Rate 86 91 Pulse Rate [Left Radial] Respiratory Rate 14 Blood Pressure 80/60 L 84/58 L Pulse Oximetry 100 Oxygen Delivery Oxygen Flow Rate 09/09/24 08:00 09/09/24 08:00 09/09/24 08:01 Temperature Pulse Rate 93 Pulse Rate [Left Radial] 96 Respiratory Rate 14 Blood Pressure Pulse Oximetry 100 Oxygen Delivery Nasal Cannula Oxygen Flow Rate 3 Intake/Output Intake/Output: Intake & Output 09/06/24 09/07/24 09/08/24 09/09/24 23:59 23:59 23:59 23:59 Intake Total 340 950 Output Total 1050 Balance -710 950 Meds/Results Medications: Active Medications Generic Name Dose Route Start Last Admin Trade Name Freq PRN Reason Stop Dose Admin Acetaminophen 500 mg 09/08/24 22:21 09/08/24 23:29 Acetaminophen 500 Mg Tablet PO 500 mg Q8HR PRN Administration headache Hydrocodone Bitart/Acetaminophen 1 tab 09/08/24 16:15 Hydrocodone/Acetaminophen (*Crx) 5-325 Mg Tablet PO Q6H PRN Pain Rated 4-6 Carvedilol 3.125 mg 09/08/24 21:00 09/09/24 08:34 Carvedilol 3.125 Mg Tablet PO Not Given Q12HR KATY Chlordiazepoxide HCl 25 mg 09/08/24 22:00 09/09/24 04:52 Chlordiazepoxide (*Crx) 25 Mg Capsule PO Not Given Q6H KATY Dextrose 12.5 gm 09/08/24 11:22 Dextrose 50% 25 Gm/50 Ml Syringe IV PUSH PRN PRN Hypoglycemia Protocol Enoxaparin Sodium 40 mg 09/09/24 09:00 09/09/24 08:27 Enoxaparin 40 Mg/0.4 Ml Syringe SUB-Q 40 mg DAILY KATY Administration Famotidine 20 mg 09/09/24 09:00 09/09/24 08:26 Famotidine 20 Mg Tablet PO 20 mg DAILY KATY Administration Ferrous Sulfate 325 mg 09/09/24 09:00 09/09/24 08:26 Ferrous Sulfate [address] BY MOUTH 325 mg DAILY KATY Administration Folic Acid 0.4 mg 09/09/24 09:00 09/09/24 08:25 Folic Acid 0.4 Mg Tablet PO 0.4 mg DAILY KATY Administration Glucagon 1 mg 09/08/24 11:22 Glucagon For Inj 1 Mg Vial IM PRN PRN Hypoglycemia Protocol Glucose 15 gm 09/08/24 11:22 Glucose Oral Gel 15 Gm Of Glucse In 37.5 Gm Tube PO PRN PRN Hypoglycemia Protocol Guaifenesin 1,200 mg 09/08/24 21:00 09/09/24 08:27 Guaifenesin 12 Hr 600 Mg Tabcr PO 1,200 mg Q12HR KATY Administration Dextrose 1,000 mls @ 100 mls/hr 09/08/24 11:22 Dextrose 5% 1,000 Ml IVPB PRN PRN Hypoglycemia Protocol Insulin Aspart 2 - 5 units 09/08/24 12:00 09/09/24 08:05 Insulin Aspart (*Bkc) 100 Units/Ml SUB-Q 2 units TIDWM KATY Administration Protocol Insulin Glargine 5 units 09/08/24 21:00 09/08/24 21:59 Insulin Glargine (*Bkc) 100 Units/Ml SUB-Q 5 units HS KATY Administration Ketorolac Tromethamine 15 mg 09/08/24 16:15 Ketorolac 15 Mg/Ml Vial (*Bkc) IV PUSH Q6H PRN Pain Rated 4-6 in NPO Lorazepam 2 mg 09/08/24 21:18 09/08/24 23:44 Lorazepam Inj (*Crx) 2 Mg/Ml Vial IV PUSH 2 mg Q2H PRN Administration CIWA > 15 Lorazepam 1 mg 09/08/24 21:21 Lorazepam Inj (*Crx) 2 Mg/Ml Vial IV PUSH Q4H PRN CIWA 8-15 Melatonin 10 mg 09/08/24 11:25 Melatonin 5 Mg Tablet PO HS PRN sleep Miscellaneous Information 0 each 09/08/24 00:01 Ivabradine 5mg Nonform Can Pt Bring From Home? XX 10/08/24 00:00 CLARIFY KATY Non-Formulary Medication 5 mg 09/09/24 09:00 Ivabradine PO 10/09/24 08:59 DAILY KATY Ondansetron HCl 4 mg 09/08/24 11:17 Ondansetron Inj 4 Mg/2 Ml Vial IV PUSH Q6H PRN Nausea And Vomiting Pantoprazole Sodium 40 mg 09/09/24 09:00 09/09/24 08:27 Pantoprazole 40 Mg Tablet PO 40 mg DAILY KATY Administration Pregabalin 100 mg 09/09/24 09:00 09/09/24 08:25 Pregabalin (*Crx) 50 Mg Capsule PO 100 mg DAILY KATY Administration Sacubitril/Valsartan 0.5 tab 09/08/24 21:00 09/09/24 08:28 Sacubitril/Valsartan 24-26 Mg Tablet PO 0.5 tab Q12HR KATY Administration Spironolactone 12.5 mg 09/08/24 21:00 09/09/24 08:26 Spironolactone 12.5 Mg Tablet PO 12.5 mg Q12HR KATY Administration Radiology Results: ITS Impressions Chest X-Ray 09/08/24 05:27 Impression: Normal chest. Labs Labs: Laboratory Results - last 24 hr 09/08/24 09/08/24 09/08/24 12:01 17:50 20:52 WBC RBC Hgb Hct MCV MCH MCHC RDW Plt Count MPV Immature Gran % (Auto) Neut % (Auto) Lymph % (Auto) [place] % (Auto) Eos % (Auto) Baso % (Auto) Lymph # (Auto) [place] # (Auto) Eos # (Auto) Baso # (Auto) Abs Immat Gran (auto) Absolute Neuts (auto) Absolute Nucleated RBC Nucleated RBC % PT INR Sodium Potassium Chloride Carbon Dioxide Anion Gap BUN Creatinine Estim Creat Clear Calc Estimated GFR Glucose POC Capillary Glucose 149 H 133 H 282 H Calcium Phosphorus Magnesium Total Bilirubin AST ALT Alkaline Phosphatase Total Protein Albumin Lipase 09/09/24 09/09/24 05:29 07:55 WBC 9.7 RBC 4.33 L Hgb 12.6 L Hct 39.8 L MCV 91.9 MCH 29.1 MCHC 31.7 L RDW 17.2 H Plt Count 243 MPV 10.0 Immature Gran % (Auto) 0.2 Neut % (Auto) 72.1 Lymph % (Auto) 17.1 L [place] % (Auto) 6.7 Eos % (Auto) 3.5 Baso % (Auto) 0.4 Lymph # (Auto) 1.66 [place] # (Auto) 0.7 H Eos # (Auto) 0.3 Baso # (Auto) 0.0 Abs Immat Gran (auto) 0.02 Absolute Neuts (auto) 7.0 H Absolute Nucleated RBC 0.000 Nucleated RBC % 0.0 PT 12.5 INR 0.9 Sodium 134 L Potassium 3.5 Chloride 88 L Carbon Dioxide > 40 H Anion Gap BUN 19 Creatinine 0.67 L Estim Creat Clear Calc 109 Estimated GFR > 60 Glucose 114 H POC Capillary Glucose 215 H Calcium 8.9 Phosphorus 3.9 Magnesium 2.8 H Total Bilirubin 0.6 AST 315 H ALT 132 H Alkaline Phosphatase 65 Total Protein 7.0 Albumin 4.4 Lipase 23 Quality VTE Prophylaxis VTE prophylaxis: mechanical ordered Hospitalist MIPS Advance Care Plan I have confirmed that the patient's Advanced Care Plan is present, code status is documented, or surrogate decision maker is listed in patient medical record.: Yes Medication Reconciliation I have utilized all available resources to obtain, update and review the patients current medications (includes all prescriptions, OTC, herbals, cannabis, and nutritional supplements).: Yes
[2024-09-09] MEDS: chlordiazePOXIDE (*CRX) 25 MG CAPSULE PO ×2 (09:21→20:59)
[2024-09-09 11:45] LABS: Glucose Point of Care 155 mg/dl (65-105)
--- NOTE | 2024-09-09 11:46 | WPDNEUROPN ---
Progress Note: A&P Assessment and Plan (1) Alcoholism: Code(s): F10.20 - Alcohol dependence, uncomplicated Status: Chronic (2) Opiate dependence, continuous: Code(s): F11.20 - Opioid dependence, uncomplicated Status: Acute (3) Heart failure with reduced ejection fraction: Code(s): I50.20 - Unspecified systolic (congestive) heart failure Status: Acute (4) Alcoholic cardiomyopathy: Code(s): I42.6 - Alcoholic cardiomyopathy Status: Acute (5) Diabetes mellitus: Qualifiers: Diabetes mellitus type: due to underlying condition Diabetes mellitus rat exterminator insulin use: with jail use Diabetes mellitus complication status: without complication Qualified Code(s): E08.9 - Diabetes mellitus due to underlying condition without complications; Z79.4 - senior care (current) use of insulin Code(s): E11.9 - Type 2 diabetes mellitus without complications Status: Acute (6) Peripheral neuropathy: Qualifiers: Peripheral neuropathy type: polyneuropathy associated with critical illness Qualified Code(s): G62.81 - Critical illness polyneuropathy Code(s): G62.9 - Polyneuropathy, unspecified Status: Acute (7) Tobacco abuse: Code(s): Z72.0 - Tobacco use Status: Acute Plan The patient should be monitored for any alcohol withdrawal seizure like events. His the ejection fraction on echo her cardiogram was reported to be around 15-20%. 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 Patient has numerous medical problems besides addiction to alcohol and opiates and smoking. His liver enzymes were also elevated with AST of 315 and ALT at 132 a.m.. Magnesium level is 2.8. Supportive treatment should continue. Subjective Date/time seen: 09/09/24 11:46 Interval history: The patient is 34 years old with history of for chronic alcoholism and opiate dependence and alcoholic cardiomyopathy has a chronic smoking has had a withdrawal seizure on 09/07/2024 and was seen in the emergency room and then he went home against medical advise. He was readmitted on 09/08/2024. At this time he is very drowsy but able to open his eyes talk a little bit only. He denies any specific symptoms but feels weak and sleepy. The patient has history of diabetes with peripheral neuropathy. Review of Systems Review of Systems: ROS unobtainable: Yes unobtainable due to mental status Exam Narrative: Patient is drowsy. Pupils were equal reacting. There is no facial asymmetry. No nuchal rigidity. Motor system moving both upper and lower limbs. No involuntary movements are seen Objective Data Vital Signs Vital Signs: Vital Signs - 24 hr 09/08/24 12:00 09/08/24 14:00 09/08/24 16:00 Temperature 97.2 F L Pulse Rate 100 Pulse Rate [Left Radial] 100 96 Respiratory Rate 20 Blood Pressure 114/87 97/76 L 107/86 Pulse Oximetry 95 Oxygen Delivery Oxygen Flow Rate 09/08/24 16:00 09/08/24 20:00 09/08/24 20:00 Temperature Pulse Rate 99 94 Pulse Rate [Left Radial] Respiratory Rate Blood Pressure Pulse Oximetry 100 Oxygen Delivery Nasal Cannula Oxygen Flow Rate 3 09/08/24 21:25 09/08/24 21:57 09/08/24 23:50 Temperature 97.2 F L 97.7 F Pulse Rate 87 87 98 Pulse Rate [Left Radial] Respiratory Rate 14 14 Blood Pressure 92/70 L 103/76 Pulse Oximetry 99 100 Oxygen Delivery Oxygen Flow Rate 09/09/24 00:00 09/09/24 04:00 09/09/24 04:00 Temperature 97.5 F L Pulse Rate 88 86 91 Pulse Rate [Left Radial] Respiratory Rate 14 Blood Pressure 80/60 L Pulse Oximetry 100 Oxygen Delivery Oxygen Flow Rate 09/09/24 06:11 09/09/24 08:00 09/09/24 08:00 Temperature Pulse Rate Pulse Rate [Left Radial] 96 Respiratory Rate 14 Blood Pressure 84/58 L Pulse Oximetry 100 Oxygen Delivery Nasal Cannula Oxygen Flow Rate 3 09/09/24 08:00 09/09/24 08:01 09/09/24 09:35 Temperature 97.2 F L Pulse Rate 92 93 Pulse Rate [Left Radial] Respiratory Rate 14 Blood Pressure 89/66 L 96/71 L Pulse Oximetry 100 Oxygen Delivery Oxygen Flow Rate 09/09/24 09:42 Temperature Pulse Rate Pulse Rate [Left Radial] Respiratory Rate Blood Pressure Pulse Oximetry 100 Oxygen Delivery Nasal Cannula Oxygen Flow Rate 3 Intake/Output Intake/Output: Intake & Output 09/06/24 09/07/24 09/08/24 09/09/24 23:59 23:59 23:59 23:59 Intake Total 340 1924 Output Total 1050 300 Balance -710 1624 Meds/Results Medications: Active Medications Generic Name Dose Route Start Last Admin Trade Name Luis PRN Reason Stop Dose Admin Acetaminophen 500 mg 09/08/24 22:21 09/08/24 23:29 Acetaminophen 500 Mg Tablet PO 500 mg Q8HR PRN Administration headache Hydrocodone Bitart/Acetaminophen 1 tab 09/08/24 16:15 Hydrocodone/Acetaminophen (*Crx) 5-325 Mg Tablet PO Q6H PRN Pain Rated 4-6 Carvedilol 3.125 mg 09/08/24 21:00 09/09/24 08:34 Carvedilol 3.125 Mg Tablet PO Not Given Q12HR KATY Chlordiazepoxide HCl 25 mg 09/08/24 22:00 09/09/24 09:21 Chlordiazepoxide (*Crx) 25 Mg Capsule PO 25 mg Q6H KATY Administration Dextrose 12.5 gm 09/08/24 11:22 Dextrose 50% 25 Gm/50 Ml Syringe IV PUSH PRN PRN Hypoglycemia Protocol Enoxaparin Sodium 40 mg 09/09/24 09:00 09/09/24 08:27 Enoxaparin 40 Mg/0.4 Ml Syringe SUB-Q 40 mg DAILY KATY Administration Famotidine 20 mg 09/09/24 09:00 09/09/24 08:26 Famotidine 20 Mg Tablet PO 20 mg DAILY KATY Administration Ferrous Sulfate 325 mg 09/09/24 09:00 09/09/24 08:26 Ferrous Sulfate [address] BY MOUTH 325 mg DAILY KATY Administration Folic Acid 0.4 mg 09/09/24 09:00 09/09/24 08:25 Folic Acid 0.4 Mg Tablet PO 0.4 mg DAILY KATY Administration Glucagon 1 mg 09/08/24 11:22 Glucagon For Inj 1 Mg Vial IM PRN PRN Hypoglycemia Protocol Glucose 15 gm 09/08/24 11:22 Glucose Oral Gel 15 Gm Of Glucse In 37.5 Gm Tube PO PRN PRN Hypoglycemia Protocol Guaifenesin 1,200 mg 09/08/24 21:00 09/09/24 08:27 Guaifenesin 12 Hr 600 Mg Tabcr PO 1,200 mg Q12HR KATY Administration Dextrose 1,000 mls @ 100 mls/hr 09/08/24 11:22 Dextrose 5% 1,000 Ml IVPB PRN PRN Hypoglycemia Protocol Insulin Aspart 2 - 5 units 09/08/24 12:00 09/09/24 08:05 Insulin Aspart (*Bkc) 100 Units/Ml SUB-Q 2 units TIDWM KATY Administration Protocol Insulin Glargine 5 units 09/08/24 21:00 09/08/24 21:59 Insulin Glargine (*Bkc) 100 Units/Ml SUB-Q 5 units HS KATY Administration Ketorolac Tromethamine 15 mg 09/08/24 16:15 Ketorolac 15 Mg/Ml Vial (*Bkc) IV PUSH Q6H PRN Pain Rated 4-6 in NPO Lorazepam 2 mg 09/08/24 21:18 09/08/24 23:44 Lorazepam Inj (*Crx) 2 Mg/Ml Vial IV PUSH 2 mg Q2H PRN Administration CIWA > 15 Lorazepam 1 mg 09/08/24 21:21 Lorazepam Inj (*Crx) 2 Mg/Ml Vial IV PUSH Q4H PRN CIWA 8-15 Melatonin 10 mg 09/08/24 11:25 Melatonin 5 Mg Tablet PO HS PRN sleep Non-Formulary Medication 0 mg 09/09/24 11:25 Ivabradine PO 10/09/24 11:24 DAILY KATY Ondansetron HCl 4 mg 09/08/24 11:17 Ondansetron Inj 4 Mg/2 Ml Vial IV PUSH Q6H PRN Nausea And Vomiting Pantoprazole Sodium 40 mg 09/09/24 09:00 09/09/24 08:27 Pantoprazole 40 Mg Tablet PO 40 mg DAILY KATY Administration Pregabalin 100 mg 09/09/24 09:00 09/09/24 08:25 Pregabalin (*Crx) 50 Mg Capsule PO 100 mg DAILY KATY Administration Sacubitril/Valsartan 0.5 tab 09/08/24 21:00 09/09/24 08:28 Sacubitril/Valsartan 24-26 Mg Tablet PO 0.5 tab Q12HR KATY Administration Spironolactone 12.5 mg 09/08/24 21:00 09/09/24 08:26 Spironolactone 12.5 Mg Tablet PO 12.5 mg Q12HR KATY Administration Radiology Results: ITS Impressions Chest X-Ray 09/08/24 05:27 Impression: Normal chest. Labs Labs: Laboratory Results - last 24 hr 09/08/24 09/08/24 09/08/24 12:01 17:50 20:52 WBC RBC Hgb Hct MCV MCH MCHC RDW Plt Count MPV Immature Gran % (Auto) Neut % (Auto) Lymph % (Auto) [place] % (Auto) Eos % (Auto) Baso % (Auto) Lymph # (Auto) [place] # (Auto) Eos # (Auto) Baso # (Auto) Abs Immat Gran (auto) Absolute Neuts (auto) Absolute Nucleated RBC Nucleated RBC % PT INR Sodium Potassium Chloride Carbon Dioxide Anion Gap BUN Creatinine Estim Creat Clear Calc Estimated GFR Glucose POC Capillary Glucose 149 H 133 H 282 H Calcium Phosphorus Magnesium Total Bilirubin AST ALT Alkaline Phosphatase Total Protein Albumin Lipase 09/09/24 09/09/24 09/09/24 05:29 07:55 11:29 WBC 9.7 RBC 4.33 L Hgb 12.6 L Hct 39.8 L MCV 91.9 MCH 29.1 MCHC 31.7 L RDW 17.2 H Plt Count 243 MPV 10.0 Immature Gran % (Auto) 0.2 Neut % (Auto) 72.1 Lymph % (Auto) 17.1 L [place] % (Auto) 6.7 Eos % (Auto) 3.5 Baso % (Auto) 0.4 Lymph # (Auto) 1.66 [place] # (Auto) 0.7 H Eos # (Auto) 0.3 Baso # (Auto) 0.0 Abs Immat Gran (auto) 0.02 Absolute Neuts (auto) 7.0 H Absolute Nucleated RBC 0.000 Nucleated RBC % 0.0 PT 12.5 INR 0.9 Sodium 134 L Potassium 3.5 Chloride 88 L Carbon Dioxide > 40 H Anion Gap BUN 19 Creatinine 0.67 L Estim Creat Clear Calc 109 Estimated GFR > 60 Glucose 114 H POC Capillary Glucose 215 H 155 H Calcium 8.9 Phosphorus 3.9 Magnesium 2.8 H Total Bilirubin 0.6 AST 315 H ALT 132 H Alkaline Phosphatase 65 Total Protein 7.0 Albumin 4.4 Lipase 23 Imaging Attestation: I personally reviewed and interpreted this imaging study as follows: ( CT scan head without contrast) My impression: normal study. No acute findings. Radiologist's impression: Same
[2024-09-09] MEDS: IVABRADINE 5 MG PO (12:10)
[2024-09-09] MEDS: [UNRECOGNIZED DRUG - OTHER] PO (12:10)
[2024-09-09] MEDS: HYDROcodone/acetaminophen (*CRX) 5-325 MG TABLET 1 TAB PO ×2 (13:22→20:58)
[2024-09-09] MEDS: LORazepam INJ (*CRX) 2 MG/ML VIAL 1 MG IV PUSH (13:25)
--- NOTE | 2024-09-09 15:10 | PM.IMPN ---
Progress Note: A&P Assessment and Plan (1) Generalized weakness: Code(s): R53.1 - Weakness Status: Acute (2) Adult failure to thrive: Code(s): R62.7 - Adult failure to thrive Status: Acute (3) Peripheral neuropathy: Qualifiers: Peripheral neuropathy type: polyneuropathy associated with critical illness Qualified Code(s): G62.81 - Critical illness polyneuropathy Code(s): G62.9 - Polyneuropathy, unspecified Status: Acute (4) Dilated cardiomyopathy secondary to alcohol: Code(s): I42.6 - Alcoholic cardiomyopathy Status: Acute (5) Pneumonia: Qualifiers: Pneumonia type: due to unspecified organism Laterality: unspecified laterality Lung location: unspecified part of lung Qualified Code(s): J18.9 - Pneumonia, unspecified organism Code(s): J18.9 - Pneumonia, unspecified organism Status: Acute (6) Alcohol withdrawal: Qualifiers: Complication of substance-induced condition: uncomplicated Qualified Code(s): F10.930 - Alcohol use, unspecified with withdrawal, uncomplicated Code(s): F10.939 - Alcohol use, unspecified with withdrawal, unspecified Status: Acute (7) Diabetes mellitus: Qualifiers: Diabetes mellitus type: due to underlying condition Diabetes mellitus keno terminal operator insulin use: with nursing home use Diabetes mellitus complication status: without complication Qualified Code(s): E08.9 - Diabetes mellitus due to underlying condition without complications; Z79.4 - predatory animal exterminator (current) use of insulin Code(s): E11.9 - Type 2 diabetes mellitus without complications Status: Acute (8) Tobacco abuse: Code(s): Z72.0 - Tobacco use Status: Acute (9) Opiate dependence, continuous: Code(s): F11.20 - Opioid dependence, uncomplicated Status: Acute (10) Abdominal pain: Qualifiers: Abdominal location: generalized Qualified Code(s): R10.84 - Generalized abdominal pain Code(s): R10.9 - Unspecified abdominal pain Status: Acute (11) Moderate protein-calorie malnutrition: Code(s): E44.0 - Moderate protein-calorie malnutrition Status: Acute (12) Alcoholic cardiomyopathy: Code(s): I42.6 - Alcoholic cardiomyopathy Status: Acute Plan # Pneumonia: - Previous admission to hospital for treatment of sepsis due to pneumonia discovered on CT (bilateral lower lobe) - Lungs persistently clear on cxr - Treated with ceftriaxone and azithromycin 08/29/24 - 08/31/24 then patient left AMA - Blood cultures from 08/29/24 no growth - Throughout stay lungs were clear to auscultation bilaterally - Pleuritic pain developed during and after previous stay, along with increased difficulty breathing, cough, and production of sputum - Progressively worsened per pt's report - Cxr clear on 09/08/24 - WBC wnl, negative for fever - Monitor for symptoms, WBC, fever, change in sputum - Consider sputum culture and restarting of abx therapy if symptoms worsen - Incentive spirometry ordered - PT/OT ordered - out of bed ambulate tid and prn # Alcohol withdrawal: - Admission due to patients request to help with withdrawal process - Presentation to ED 09/07/24 was discharged with chlordiazepoxide, famotidine, and ondansetron to help with process. Unable to tolerate symptoms - Patient expresses need for Ativan to successfully withdraw - Started on CIWA protocol - CIWA at 12:00 on 09/08 was 13 - Q2 neuro checks # T2DM/peripheral neuropathy - Low dose sliding scale - Hypoglycemia protocol - Chronic peripheral neuropathy in left knee down to foot and right foot, continue pregabalin - Most recent POC glucose 149 - Continue q6H and ACHS POC glucose # Dilated cardiomyopathy - Hx of ECMO from cardiogenic shock leading to hospice. Patient revoked hospice back in april and was seeking placement on a heart transplant list - Last EF was up to 39% according to patient - Followed by Dr. Mahmood at [facility] and Dr. Mcelroy at [place] - No acute symptoms of exacerbation, benign exam regarding fluid overload - Pro BNP 250, slight elevation, thought to be chronic - Entresto and spironolactone restarted, carvedilol restarted - Monitor for symptoms #Opioid dependance - Complicated by chronic pain - Currently on CIWA protocol - Monitor for pain symptoms as somnolence resolves - will hold ambien, restart norco 5/325 mg prn for right now and add Toradol for pain - monitor resp status #Abdominal pain - Epigastric and suprapubic pain present at rest. 10/10 on light palpation - Diffuse abdominal pain present with light palpation 5/10 pain. 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, coach operator on quitting when able Of note- due to possible reported seizures- will continue frequent neuro checks and consult neurology Subjective Date/time seen: 09/09/24 15:10 Interval history: Patient is currently doing well. Patient will undergo endoscopy and colonoscopy tomorrow Review of Systems Review of Systems: All systems reviewed & are unremarkable except as noted in HPI and below (h/p) Exam Narrative: GENERAL: Difficult to ascertain distress due to low energy level, frail appearance HEAD: Normal with no signs of head trauma. EYES: EOMI, PERRL, conjunctiva normal ENT: Hearing grossly intact LUNGS: Mild tachypnea, and labored breathing HEART: Regular rate and rhythm ABD: Diffuse 6/10 tenderness to light palpation with the exception of the RLQ. 10/10 tenderness suprapubically and epigastrically EXT: Pedal and brachial pulses intact bilaterally SKIN: [No rashes or lesions.] NEURO: Somnolent but wakes to voice. Significant bilateral weakness present. No gross focal sensory or strength deficits. No obvious tremors. PSYCH: flat affect Objective Data Vital Signs Vital Signs: Vital Signs - 24 hr 09/08/24 16:00 09/08/24 16:00 09/08/24 20:00 Temperature Pulse Rate 99 Pulse Rate [Left Radial] 96 Respiratory Rate Blood Pressure 107/86 Pulse Oximetry 100 Oxygen Delivery Nasal Cannula Oxygen Flow Rate 3 09/08/24 20:00 09/08/24 21:25 09/08/24 21:57 Temperature 97.2 F L Pulse Rate 94 87 87 Pulse Rate [Left Radial] Respiratory Rate 14 Blood Pressure 92/70 L Pulse Oximetry 99 Oxygen Delivery Oxygen Flow Rate 09/08/24 23:50 09/09/24 00:00 09/09/24 04:00 Temperature 97.7 F Pulse Rate 98 88 86 Pulse Rate [Left Radial] Respiratory Rate 14 Blood Pressure 103/76 Pulse Oximetry 100 Oxygen Delivery Oxygen Flow Rate 09/09/24 04:00 09/09/24 06:11 09/09/24 08:00 Temperature 97.5 F L Pulse Rate 91 Pulse Rate [Left Radial] 96 Respiratory Rate 14 Blood Pressure 80/60 L 84/58 L Pulse Oximetry 100 Oxygen Delivery Oxygen Flow Rate 09/09/24 08:00 09/09/24 08:00 09/09/24 08:01 Temperature 97.2 F L Pulse Rate 92 93 Pulse Rate [Left Radial] Respiratory Rate 14 14 Blood Pressure 89/66 L Pulse Oximetry 100 100 Oxygen Delivery Nasal Cannula Oxygen Flow Rate 3 09/09/24 09:35 09/09/24 09:42 09/09/24 12:00 Temperature 96.8 F L Pulse Rate 99 Pulse Rate [Left Radial] Respiratory Rate 14 Blood Pressure 96/71 L 92/62 L Pulse Oximetry 100 97 Oxygen Delivery Nasal Cannula Oxygen Flow Rate 3 09/09/24 12:03 09/09/24 12:03 Temperature Pulse Rate 107 H Pulse Rate [Left Radial] 107 H Respiratory Rate Blood Pressure Pulse Oximetry Oxygen Delivery Oxygen Flow Rate Intake/Output Intake/Output: Intake & Output 09/06/24 09/07/24 09/08/24 09/09/24 23:59 23:59 23:59 23:59 Intake Total 340 2164 Output Total 1050 900 Balance -710 1264 Meds/Results Medications: Active Medications Generic Name Dose Route Start Last Admin Trade Name Freq PRN Reason Stop Dose Admin Acetaminophen 500 mg 09/08/24 22:21 09/08/24 23:29 Acetaminophen 500 Mg Tablet PO 500 mg Q8HR PRN Administration headache Hydrocodone Bitart/Acetaminophen 1 tab 09/08/24 16:15 09/09/24 13:22 Hydrocodone/Acetaminophen (*Crx) 5-325 Mg Tablet PO 1 tab Q6H PRN Administration Pain Rated 4-6 Carvedilol 3.125 mg 09/08/24 21:00 09/09/24 08:34 Carvedilol 3.125 Mg Tablet PO Not Given Q12HR KATY Chlordiazepoxide HCl 25 mg 09/08/24 22:00 09/09/24 09:21 Chlordiazepoxide (*Crx) 25 Mg Capsule PO 25 mg Q6H KATY Administration Dextrose 12.5 gm 09/08/24 11:22 Dextrose 50% 25 Gm/50 Ml Syringe IV PUSH PRN PRN Hypoglycemia Protocol Enoxaparin Sodium 40 mg 09/09/24 09:00 09/09/24 08:27 Enoxaparin 40 Mg/0.4 Ml Syringe SUB-Q 40 mg DAILY KATY Administration Famotidine 20 mg 09/09/24 09:00 09/09/24 08:26 Famotidine 20 Mg Tablet PO 20 mg DAILY KATY Administration Ferrous Sulfate 325 mg 09/09/24 09:00 09/09/24 08:26 Ferrous Sulfate [address] BY MOUTH 325 mg DAILY KATY Administration Folic Acid 0.4 mg 09/09/24 09:00 09/09/24 08:25 Folic Acid 0.4 Mg Tablet PO 0.4 mg DAILY KATY Administration Glucagon 1 mg 09/08/24 11:22 Glucagon For Inj 1 Mg Vial IM PRN PRN Hypoglycemia Protocol Glucose 15 gm 09/08/24 11:22 Glucose Oral Gel 15 Gm Of Glucse In 37.5 Gm Tube PO PRN PRN Hypoglycemia Protocol Guaifenesin 1,200 mg 09/08/24 21:00 09/09/24 08:27 Guaifenesin 12 Hr 600 Mg Tabcr PO 1,200 mg Q12HR KATY Administration Dextrose 1,000 mls @ 100 mls/hr 09/08/24 11:22 Dextrose 5% 1,000 Ml IVPB PRN PRN Hypoglycemia Protocol Insulin Aspart 2 - 5 units 09/08/24 12:00 09/09/24 11:40 Insulin Aspart (*Bkc) 100 Units/Ml SUB-Q Not Given TIDWM [facility] Protocol Insulin Glargine 5 units 09/08/24 21:00 09/08/24 21:59 Insulin Glargine (*Bkc) 100 Units/Ml SUB-Q 5 units HS KATY Administration Ketorolac Tromethamine 15 mg 09/08/24 16:15 Ketorolac 15 Mg/Ml Vial (*Bkc) IV PUSH Q6H PRN Pain Rated 4-6 in NPO Lorazepam 2 mg 09/08/24 21:18 09/08/24 23:44 Lorazepam Inj (*Crx) 2 Mg/Ml Vial IV PUSH 2 mg Q2H PRN Administration CIWA > 15 Lorazepam 1 mg 09/08/24 21:21 09/09/24 13:25 Lorazepam Inj (*Crx) 2 Mg/Ml Vial IV PUSH 1 mg Q4H PRN Administration CIWA 8-15 Melatonin 10 mg 09/08/24 11:25 Melatonin 5 Mg Tablet PO HS PRN sleep Non-Formulary Medication 0 mg 09/09/24 11:25 09/09/24 12:10 Ivabradine PO 10/09/24 11:24 5 mg DAILY KATY Administration Ondansetron HCl 4 mg 09/08/24 11:17 Ondansetron Inj 4 Mg/2 Ml Vial IV PUSH Q6H PRN Nausea And Vomiting Pantoprazole Sodium 40 mg 09/09/24 09:00 09/09/24 08:27 Pantoprazole 40 Mg Tablet PO 40 mg DAILY KATY Administration Pregabalin 100 mg 09/09/24 09:00 09/09/24 08:25 Pregabalin (*Crx) 50 Mg Capsule PO 100 mg DAILY KATY Administration Sacubitril/Valsartan 0.5 tab 09/08/24 21:00 09/09/24 08:28 Sacubitril/Valsartan 24-26 Mg Tablet PO 0.5 tab Q12HR KATY Administration Spironolactone 12.5 mg 09/08/24 21:00 09/09/24 08:26 Spironolactone 12.5 Mg Tablet PO 12.5 mg Q12HR KATY Administration Radiology Results: ITS Impressions Chest X-Ray 09/08/24 05:27 Impression: Normal chest. Labs Labs: Laboratory Results - last 24 hr 09/08/24 09/08/24 09/09/24 17:50 20:52 05:29 WBC 9.7 RBC 4.33 L Hgb 12.6 L Hct 39.8 L MCV 91.9 MCH 29.1 MCHC 31.7 L RDW 17.2 H Plt Count 243 MPV 10.0 Immature Gran % (Auto) 0.2 Neut % (Auto) 72.1 Lymph % (Auto) 17.1 L [place] % (Auto) 6.7 Eos % (Auto) 3.5 Baso % (Auto) 0.4 Lymph # (Auto) 1.66 [place] # (Auto) 0.7 H Eos # (Auto) 0.3 Baso # (Auto) 0.0 Abs Immat Gran (auto) 0.02 Absolute Neuts (auto) 7.0 H Absolute Nucleated RBC 0.000 Nucleated RBC % 0.0 PT 12.5 INR 0.9 Sodium 134 L Potassium 3.5 Chloride 88 L Carbon Dioxide > 40 H Anion Gap BUN 19 Creatinine 0.67 L Estim Creat Clear Calc 109 Estimated GFR > 60 Glucose 114 H POC Capillary Glucose 133 H 282 H Calcium 8.9 Phosphorus 3.9 Magnesium 2.8 H Total Bilirubin 0.6 AST 315 H ALT 132 H Alkaline Phosphatase 65 Total Protein 7.0 Albumin 4.4 Lipase 23 09/09/24 09/09/24 07:55 11:29 WBC RBC Hgb Hct MCV MCH MCHC RDW Plt Count MPV Immature Gran % (Auto) Neut % (Auto) Lymph % (Auto) [place] % (Auto) Eos % (Auto) Baso % (Auto) Lymph # (Auto) [place] # (Auto) Eos # (Auto) Baso # (Auto) Abs Immat Gran (auto) Absolute Neuts (auto) Absolute Nucleated RBC Nucleated RBC % PT INR Sodium Potassium Chloride Carbon Dioxide Anion Gap BUN Creatinine Estim Creat Clear Calc Estimated GFR Glucose POC Capillary Glucose 215 H 155 H Calcium Phosphorus Magnesium Total Bilirubin AST ALT Alkaline Phosphatase Total Protein Albumin Lipase Quality VTE Prophylaxis VTE prophylaxis: mechanical ordered Hospitalist MIPS Advance Care Plan I have confirmed that the patient's Advanced Care Plan is present, code status is documented, or surrogate decision maker is listed in patient medical record.: Yes Medication Reconciliation I have utilized all available resources to obtain, update and review the patients current medications (includes all prescriptions, OTC, herbals, cannabis, and nutritional supplements).: Yes
[2024-09-09 16:52] LABS: Glucose Point of Care 219 mg/dl (65-105)
[2024-09-09 20:13] LABS: Glucose Point of Care 176 mg/dl (65-105)
[2024-09-09] MEDS: MELATONIN 5 MG TABLET 10 MG PO (20:57)
[2024-09-09] MEDS: carvediloL 3.125 MG TABLET PO (20:58)
[2024-09-09] MEDS: INSULIN GLARGINE (*BKC) 100 UNITS/ML SUB-Q (21:03)
[2024-09-10] VITALS (7 sets, daily range): BP systolic 90–94; BP diastolic 54–72; PULSE 84–115; RESP 14–16; TEMP 36.2–36.9; O2SAT 98–99
[2024-09-10] MEDS: chlordiazePOXIDE (*CRX) 25 MG CAPSULE PO (04:13)
[2024-09-10] MEDS: HYDROcodone/acetaminophen (*CRX) 5-325 MG TABLET 1 TAB PO (04:13)
[2024-09-10 06:17] LABS: Mean Corpuscular HGB Conc 30.6 g/dl (32-36); Mean Corpuscular Hemoglobin 28.9 pg (26-34); Mean Corpuscular Volume 94.5 fl (80-100); Mean Platelet Volume 10.3 fl (7.4-10.4); Platelet Count Result 168 k/mm3 (150-375); Red Blood Count 3.81 M/mm3 (4.6-6.20); Red Cell Distribution Width 17.2 % (11.5-14.5); White Blood Count 6.7 K/mm3 (4.5-10.0)
[2024-09-10 06:28] LABS: Alanine Aminotransferase 103 U/L (6-50); Alkaline Phosphatase 59 U/L (38-126); Aspartate Amino Transferase 131 U/L (17-59); Bilirubin,Total 0.4 mg/dL (0.2-1.3); Blood Urea Nitrogen 27 mg/dL (9-20); Calcium 8.9 mg/dL (8.4-10.2); Carbon Dioxide > 40 mmol/L (22-30); Chloride 89 mmol/L (98-107); Estimated CRCL calculation 115 ml/min; Estimated Glomerular Filt Rate > 60; Glucose 131 mg/dL (65-110); Potassium 3.8 mmol/L (3.4-5.0); Sodium 134 mmol/L (137-145)
[2024-09-10 07:58] LABS: Glucose Point of Care 152 mg/dl (65-105)
[2024-09-10] MEDS: guaiFENesin 12 HR 600 MG TABCR 1200 MG PO (09:40)
[2024-09-10] MEDS: FERROUS SULFATE 325 MG TABLET DR BY MOUTH (09:40)
[2024-09-10] MEDS: PANTOPRAZOLE 40 MG TABLET PO (09:40)
[2024-09-10] MEDS: FAMOTIDINE 20 MG TABLET PO (09:40)
[2024-09-10] MEDS: FOLIC ACID 0.4 MG TABLET PO (09:40)
[2024-09-10] MEDS: PREGABALIN (*CRX) 50 MG CAPSULE 100 MG PO (09:40)
[2024-09-10] MEDS: ENOXAPARIN 40 MG/0.4 ML SYRINGE SUB-Q (09:47)
[2024-09-10] MEDS: ACETAMINOPHEN 500 MG TABLET PO ×2 (09:47→16:02)
[2024-09-10] MEDS: [UNRECOGNIZED DRUG - OTHER] PO (09:51)
[2024-09-10] MEDS: IVABRADINE 5 MG PO (09:51)
--- NOTE | 2024-09-10 11:50 | PCNFU ---
Nutrition Follow-Up Complete: Severe protein calorie malnutrition related to chronic alcohol abuse, chronic cardiomyopathy as evidenced by weight loss 5%/1 month; intakes <75% needs >1 month; severe muscle wasting and fat loss Improve PO intake to >50% meals - Progressing slowly to goal. Continue with goal Goal: Pt current nutrition is Diabetic consistent carbs, heart healthy diet. Glucerna BID (220 kcal, 10 g protein). Nutrition recommendation: No new recommendations. Continue current nutrition care plan and orders. Agree with orders. Last recorded weight is 58.2 kg. Bowel Motility: +4 BMs 5/8 Labs Reviewed: Hgb 11.0, Hct 36, Na 134, BUN 27, Cre 0.63, Glu 131, Mag 2.8 Meds Noted: Insulin, folic acid, protonix, zofran Skin: WNL Additional Notes: Appetite improving somewhat. Continue current nutrition care plan. Monitoring intakes, weights, labs, supplement tolerance, plan of care Follow up in 3 days
[2024-09-10 11:56] LABS: Glucose Point of Care 293 mg/dl (65-105)
[2024-09-10] MEDS: INSULIN ASPART (*BKC) 100 UNITS/ML SUB-Q (12:05)
--- NOTE | 2024-09-10 13:46 | P.PNIM_ITS ---
Progress Note: A&P Assessment and Plan (1) Generalized weakness: Code(s): R53.1 - Weakness Status: Acute (2) Adult failure to thrive: Code(s): R62.7 - Adult failure to thrive Status: Acute (3) Peripheral neuropathy: Qualifiers: Peripheral neuropathy type: polyneuropathy associated with critical illness Qualified Code(s): G62.81 - Critical illness polyneuropathy Code(s): G62.9 - Polyneuropathy, unspecified Status: Acute (4) Dilated cardiomyopathy secondary to alcohol: Code(s): I42.6 - Alcoholic cardiomyopathy Status: Acute (5) Pneumonia: Qualifiers: Pneumonia type: due to unspecified organism Laterality: unspecified laterality Lung location: unspecified part of lung Qualified Code(s): J18.9 - Pneumonia, unspecified organism Code(s): J18.9 - Pneumonia, unspecified organism Status: Acute (6) Alcohol withdrawal: Qualifiers: Complication of substance-induced condition: uncomplicated Qualified Code(s): F10.930 - Alcohol use, unspecified with withdrawal, uncomplicated Code(s): F10.939 - Alcohol use, unspecified with withdrawal, unspecified Status: Acute (7) Diabetes mellitus: Qualifiers: Diabetes mellitus type: due to underlying condition 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 Diabetes mellitus complication status: without complication Qualified Code(s): E08.9 - Diabetes mellitus due to underlying condition without complications; Z79.4 - 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) use of insulin Code(s): E11.9 - Type 2 diabetes mellitus without complications Status: Acute (8) Tobacco abuse: Code(s): Z72.0 - Tobacco use Status: Acute (9) Opiate dependence, continuous: Code(s): F11.20 - Opioid dependence, uncomplicated Status: Acute (10) Abdominal pain: Qualifiers: Abdominal location: generalized Qualified Code(s): R10.84 - Generalized abdominal pain Code(s): R10.9 - Unspecified abdominal pain Status: Acute (11) Moderate protein-calorie malnutrition: Code(s): E44.0 - Moderate protein-calorie malnutrition Status: Acute (12) Alcoholic cardiomyopathy: Code(s): I42.6 - Alcoholic cardiomyopathy Status: Acute Plan # Pneumonia: - Previous admission to hospital for treatment of sepsis due to pneumonia discovered on CT (bilateral lower lobe) - Lungs persistently clear on cxr - Treated with ceftriaxone and azithromycin 08/29/24 - 08/31/24 then patient left AMA - Blood cultures from 08/29/24 no growth - Throughout stay lungs were clear to auscultation bilaterally - Pleuritic pain developed during and after previous stay, along with increased difficulty breathing, cough, and production of sputum - Progressively worsened per pt's report - Cxr clear on 09/08/24 - WBC wnl, negative for fever - Monitor for symptoms, WBC, fever, change in sputum - Consider sputum culture and restarting of abx therapy if symptoms worsen - Incentive spirometry ordered - PT/OT ordered - out of bed ambulate tid and prn # Alcohol withdrawal: - Admission due to patients request to help with withdrawal process - Presentation to ED 09/07/24 was discharged with chlordiazepoxide, famotidine, and ondansetron to help with process. Unable to tolerate symptoms - Patient expresses need for Ativan to successfully withdraw - Started on CIWA protocol - CIWA at 12:00 on 09/08 was 13 - Q2 neuro checks # T2DM/peripheral neuropathy - Low dose sliding scale - Hypoglycemia protocol - Chronic peripheral neuropathy in left knee down to foot and right foot, continue pregabalin - Most recent POC glucose 149 - Continue q6H and ACHS POC glucose # Dilated cardiomyopathy - Hx of ECMO from cardiogenic shock leading to hospice. Patient revoked hospice back in april and was seeking placement on a heart transplant list - Last EF was up to 39% according to patient - Followed by Dr. Mahmood at [facility] and Dr. Mcelroy at [place] - No acute symptoms of exacerbation, benign exam regarding fluid overload - Pro BNP 250, slight elevation, thought to be chronic - Entresto and spironolactone restarted, carvedilol restarted - Monitor for symptoms #Opioid dependance - Complicated by chronic pain - Currently on CIWA protocol - Monitor for pain symptoms as somnolence resolves - will hold ambien, restart norco 5/325 mg prn for right now and add Toradol for pain - monitor resp status #Abdominal pain - Epigastric and suprapubic pain present at rest. 10/10 on light palpation - Diffuse abdominal pain present with light palpation 5/10 pain. 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 Pending hospice evaluation Review of Systems Review of Systems: All systems reviewed & are unremarkable except as noted in HPI and below (h/p) Exam Narrative: GENERAL: Difficult to ascertain distress due to low energy level, frail appearance HEAD: Normal with no signs of head trauma. EYES: EOMI, PERRL, conjunctiva normal ENT: Hearing grossly intact LUNGS: Mild tachypnea, and labored breathing HEART: Regular rate and rhythm ABD: Diffuse 6/10 tenderness to light palpation with the exception of the RLQ. 10/10 tenderness suprapubically and epigastrically EXT: Pedal and brachial pulses intact bilaterally SKIN: [No rashes or lesions.] NEURO: Somnolent but wakes to voice. Significant bilateral weakness present. No gross focal sensory or strength deficits. No obvious tremors. PSYCH: flat affect Objective Data Vital Signs Vital Signs: Vital Signs - 24 hr 09/09/24 16:00 09/09/24 16:01 09/09/24 20:00 Temperature 97.3 F L 97.1 F L Pulse Rate 96 92 93 Pulse Rate [Left Radial] Respiratory Rate 14 16 Blood Pressure 103/73 107/64 Pulse Oximetry 99 100 Oxygen Delivery Oxygen Flow Rate 09/09/24 20:00 09/09/24 20:00 09/09/24 20:00 Temperature Pulse Rate 93 91 Pulse Rate [Left Radial] 107 H Respiratory Rate 16 Blood Pressure 107/64 Pulse Oximetry 100 Oxygen Delivery Nasal Cannula Oxygen Flow Rate 2 09/09/24 23:45 09/10/24 00:00 09/10/24 00:00 Temperature 97.0 F L Pulse Rate 87 87 Pulse Rate [Left Radial] 107 H Respiratory Rate 17 Blood Pressure 90/54 L 90/54 L Pulse Oximetry 100 Oxygen Delivery Oxygen Flow Rate 09/10/24 04:00 09/10/24 04:00 09/10/24 04:00 Temperature 97.1 F L Pulse Rate 88 84 Pulse Rate [Left Radial] 107 H Respiratory Rate 14 Blood Pressure 90/54 L 90/56 L Pulse Oximetry 98 Oxygen Delivery Oxygen Flow Rate 09/10/24 08:00 09/10/24 08:00 09/10/24 08:48 Temperature 97.3 F L Pulse Rate 105 H 103 H Pulse Rate [Left Radial] Respiratory Rate 16 Blood Pressure 94/72 L Pulse Oximetry 98 Oxygen Delivery Nasal Cannula Oxygen Flow Rate 2 09/10/24 08:57 09/10/24 11:56 Temperature 98.4 F Pulse Rate 97 Pulse Rate [Left Radial] Respiratory Rate 14 Blood Pressure 90/60 L Pulse Oximetry 99 Oxygen Delivery Room Air Oxygen Flow Rate Intake/Output Intake/Output: Intake & Output 09/07/24 09/08/24 09/09/24 09/10/24 23:59 23:59 23:59 23:59 Intake Total 340 3201 600 Output Total 1050 1700 300 Balance -710 1501 300 Meds/Results Medications: Active Medications Generic Name Dose Route Start Last Admin Trade Name Freq PRN Reason Stop Dose Admin Acetaminophen 500 mg 09/08/24 22:21 09/10/24 09:47 Acetaminophen 500 Mg Tablet PO 500 mg Q8HR PRN Administration headache Hydrocodone Bitart/Acetaminophen 1 tab 09/08/24 16:15 09/10/24 04:13 Hydrocodone/Acetaminophen (*Crx) 5-325 Mg Tablet PO 1 tab Q6H PRN Administration Pain Rated 4-6 Carvedilol 3.125 mg 09/08/24 21:00 09/10/24 08:17 Carvedilol 3.125 Mg Tablet PO Not Given Q12HR KATY Chlordiazepoxide HCl 25 mg 09/08/24 22:00 09/10/24 09:46 Chlordiazepoxide (*Crx) 25 Mg Capsule PO Not Given Q6H KATY Dextrose 12.5 gm 09/08/24 11:22 Dextrose 50% 25 Gm/50 Ml Syringe IV PUSH PRN PRN Hypoglycemia Protocol Enoxaparin Sodium 40 mg 09/09/24 09:00 09/10/24 09:47 Enoxaparin 40 Mg/0.4 Ml Syringe SUB-Q 40 mg DAILY KATY Administration Famotidine 20 mg 09/09/24 09:00 09/10/24 09:40 Famotidine 20 Mg Tablet PO 20 mg DAILY KATY Administration Ferrous Sulfate 325 mg 09/09/24 09:00 09/10/24 09:40 Ferrous Sulfate [address] BY MOUTH 325 mg DAILY KATY Administration Folic Acid 0.4 mg 09/09/24 09:00 09/10/24 09:40 Folic Acid 0.4 Mg Tablet PO 0.4 mg DAILY KATY Administration Glucagon 1 mg 09/08/24 11:22 Glucagon For Inj 1 Mg Vial IM PRN PRN Hypoglycemia Protocol Glucose 15 gm 09/08/24 11:22 Glucose Oral Gel 15 Gm Of Glucse In 37.5 Gm Tube PO PRN PRN Hypoglycemia Protocol Guaifenesin 1,200 mg 09/08/24 21:00 09/10/24 09:40 Guaifenesin 12 Hr 600 Mg Tabcr PO 1,200 mg Q12HR KATY Administration Dextrose 1,000 mls @ 100 mls/hr 09/08/24 11:22 Dextrose 5% 1,000 Ml IVPB PRN PRN Hypoglycemia Protocol Insulin Aspart 2 - 5 units 09/08/24 12:00 09/10/24 12:05 Insulin Aspart (*Bkc) 100 Units/Ml SUB-Q 3 units TIDWM KATY Administration Protocol Insulin Glargine 5 units 09/08/24 21:00 09/09/24 21:03 Insulin Glargine (*Bkc) 100 Units/Ml SUB-Q 5 units HS KATY Administration Ketorolac Tromethamine 15 mg 09/08/24 16:15 Ketorolac 15 Mg/Ml Vial (*Bkc) IV PUSH Q6H PRN Pain Rated 4-6 in NPO Lorazepam 2 mg 09/08/24 21:18 09/08/24 23:44 Lorazepam Inj (*Crx) 2 Mg/Ml Vial IV PUSH 2 mg Q2H PRN Administration CIWA > 15 Lorazepam 1 mg 09/08/24 21:21 09/09/24 13:25 Lorazepam Inj (*Crx) 2 Mg/Ml Vial IV PUSH 1 mg Q4H PRN Administration CIWA 8-15 Melatonin 10 mg 09/08/24 11:25 09/09/24 20:57 Melatonin 5 Mg Tablet PO 10 mg HS PRN Administration sleep Non-Formulary Medication 0 mg 09/09/24 11:25 09/10/24 09:51 Ivabradine PO 10/09/24 11:24 5 mg DAILY KATY Administration Ondansetron HCl 4 mg 09/08/24 11:17 Ondansetron Inj 4 Mg/2 Ml Vial IV PUSH Q6H PRN Nausea And Vomiting Pantoprazole Sodium 40 mg 09/09/24 09:00 09/10/24 09:40 Pantoprazole 40 Mg Tablet PO 40 mg DAILY KATY Administration Pregabalin 100 mg 09/09/24 09:00 09/10/24 09:40 Pregabalin (*Crx) 50 Mg Capsule PO 100 mg DAILY KATY Administration Sacubitril/Valsartan 0.5 tab 09/08/24 21:00 09/10/24 08:17 Sacubitril/Valsartan 24-26 Mg Tablet PO Not Given Q12HR KATY Spironolactone 12.5 mg 09/08/24 21:00 09/10/24 08:17 Spironolactone 12.5 Mg Tablet PO Not Given Q12HR KATY Radiology Results: ITS Impressions Chest X-Ray 09/08/24 05:27 Impression: Normal chest. Labs Labs: Laboratory Results - last 24 hr 09/09/24 09/09/24 09/10/24 16:50 20:10 05:50 WBC 6.7 RBC 3.81 L Hgb 11.0 L Hct 36.0 L MCV 94.5 MCH 28.9 MCHC 30.6 L RDW 17.2 H Plt Count 168 MPV 10.3 Sodium 134 L Potassium 3.8 Chloride 89 L Carbon Dioxide > 40 H Anion Gap BUN 27 H Creatinine 0.63 L Estim Creat Clear Calc 115 Estimated GFR > 60 Glucose 131 H POC Capillary Glucose 219 H 176 H Calcium 8.9 Total Bilirubin 0.4 AST 131 H ALT 103 H Alkaline Phosphatase 59 Total Protein 7.0 Albumin 4.0 09/10/24 09/10/24 07:55 11:49 WBC RBC Hgb Hct MCV MCH MCHC RDW Plt Count MPV Sodium Potassium Chloride Carbon Dioxide Anion Gap BUN Creatinine Estim Creat Clear Calc Estimated GFR Glucose POC Capillary Glucose 152 H 293 H Calcium Total Bilirubin AST ALT Alkaline Phosphatase Total Protein Albumin Quality VTE Prophylaxis VTE prophylaxis: mechanical ordered Hospitalist [facility] Advance Care Plan I have confirmed that the patient's Advanced Care Plan is present, code status is documented, or surrogate decision maker is listed in patient medical record.: Yes Medication Reconciliation I have utilized all available resources to obtain, update and review the patients current medications (includes all prescriptions, OTC, herbals, cannabis, and nutritional supplements).: Yes
[2024-09-10] MEDS: ONDANSETRON INJ 4 MG/2 ML VIAL IV PUSH (16:03)
--- NOTE | 2024-09-10 16:15 | P.DS_ITS ---
DS: Admitting Diagnosis Discharge Date 09/10/2024 Admitting Diagnosis Generalized weakness, pneumonia, alcohol withdrawal DS: Discharge Diagnosis Discharge Diagnosis (1) Generalized weakness: Code(s): R53.1 - Weakness Status: Acute (2) Adult failure to thrive: Code(s): R62.7 - Adult failure to thrive Status: Acute (3) Peripheral neuropathy: Qualifiers: Peripheral neuropathy type: polyneuropathy associated with critical illness Qualified Code(s): G62.81 - Critical illness polyneuropathy Code(s): G62.9 - Polyneuropathy, unspecified Status: Acute (4) Dilated cardiomyopathy secondary to alcohol: Code(s): I42.6 - Alcoholic cardiomyopathy Status: Acute (5) Pneumonia: Qualifiers: Pneumonia type: due to unspecified organism Laterality: unspecified laterality Lung location: unspecified part of lung Qualified Code(s): J18.9 - Pneumonia, unspecified organism Code(s): J18.9 - Pneumonia, unspecified organism Status: Acute (6) Alcohol withdrawal: Qualifiers: Complication of substance-induced condition: uncomplicated Qualified Code(s): F10.930 - Alcohol use, unspecified with withdrawal, uncomplicated Code(s): F10.939 - Alcohol use, unspecified with withdrawal, unspecified Status: Acute (7) Diabetes mellitus: Qualifiers: Diabetes mellitus type: due to underlying condition 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 Diabetes mellitus complication status: without complication Qualified Code(s): E08.9 - Diabetes mellitus due to underlying condition without complications; Z79.4 - correction (current) use of insulin Code(s): E11.9 - Type 2 diabetes mellitus without complications Status: Acute (8) Tobacco abuse: Code(s): Z72.0 - Tobacco use Status: Acute (9) Opiate dependence, continuous: Code(s): F11.20 - Opioid dependence, uncomplicated Status: Acute (10) Abdominal pain: Qualifiers: Abdominal location: generalized Qualified Code(s): R10.84 - Generalized abdominal pain Code(s): R10.9 - Unspecified abdominal pain Status: Acute (11) Moderate protein-calorie malnutrition: Code(s): E44.0 - Moderate protein-calorie malnutrition Status: Acute (12) Alcoholic cardiomyopathy: Code(s): I42.6 - Alcoholic cardiomyopathy Status: Acute Plan # Pneumonia: - Previous admission to hospital for treatment of sepsis due to pneumonia discovered on CT (bilateral lower lobe) - Lungs persistently clear on cxr - Treated with ceftriaxone and azithromycin 08/29/24 - 08/31/24 then patient left AMA - Blood cultures from 08/29/24 no growth - Throughout stay lungs were clear to auscultation bilaterally - Pleuritic pain developed during and after previous stay, along with increased difficulty breathing, cough, and production of sputum - Progressively worsened per pt's report - Cxr clear on 09/08/24 - WBC wnl, negative for fever - Monitor for symptoms, WBC, fever, change in sputum - Consider sputum culture and restarting of abx therapy if symptoms worsen - Incentive spirometry ordered - PT/OT ordered - out of bed ambulate tid and prn # Alcohol withdrawal: - Admission due to patients request to help with withdrawal process - Presentation to ED 09/07/24 was discharged with chlordiazepoxide, famotidine, and ondansetron to help with process. Unable to tolerate symptoms - Patient expresses need for Ativan to successfully withdraw - Started on CIWA protocol - CIWA at 12:00 on 09/08 was 13 - Q2 neuro checks # T2DM/peripheral neuropathy - Low dose sliding scale - Hypoglycemia protocol - Chronic peripheral neuropathy in left knee down to foot and right foot, continue pregabalin - Most recent POC glucose 149 - Continue q6H and ACHS POC glucose # Dilated cardiomyopathy - Hx of ECMO from cardiogenic shock leading to hospice. Patient revoked hospice back in april and was seeking placement on a heart transplant list - Last EF was up to 39% according to patient - Followed by Dr. Mahmood at [facility] and Dr. Mcelroy at [place] - No acute symptoms of exacerbation, benign exam regarding fluid overload - Pro BNP 250, slight elevation, thought to be chronic - Entresto and spironolactone restarted, carvedilol restarted - Monitor for symptoms #Opioid dependance - Complicated by chronic pain - Currently on CIWA protocol - Monitor for pain symptoms as somnolence resolves - will hold ambien, restart norco 5/325 mg prn for right now and add Toradol for pain - monitor resp status #Abdominal pain - Epigastric and suprapubic pain present at rest. 10/10 on light palpation - Diffuse abdominal pain present with light palpation 5/10 pain. 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 On previous admission 08/29/24 patient fit SIRS criteria for sepsis with tachycardia and leukocytosis in the setting of bilateral basilar pneumonia. Sepsis quickly resolved but chest discomfort related to pneumonia persisted throughout treatment. Treatment consisted of ceftriaxone and azithromycin. Patient left AMA 08/31/24 and returned to the ED 09/07/24 with concern of alcohol withdrawal w/ seizures and was discharged with antiemetics and chlordiazepoxide taper for symptoms. Patient then presented on 09/08/24 requesting to be admitted for alcohol withdrawal, in addition to thinking he still has pneumonia. Patient has been experiencing generalized weakness, pleuritic chest pain, cough, and difficulty breathing. Cough has been productive of thick sputum, occasionally with blood streaks. Reports drinking .5 L of vodka to help with symptoms, along with clonidine around 2 days ago. Respiratory symptoms are reportedly worse than previous, partially treated pneumonia. Reports diaphoresis, vision disturbances, auditory hallucinations, myalgias, chills, lack of bowel movement for 3 days, headache, and abdominal pain. Abdominal pain began around 3 days ago as well, pointing to epigastric and suprapubic regions. OTC pain medication hasn't been helpful, patient takes hydrocodone chronically for peripheral neuropathy without alleviation. States he thinks he had a seizure yesterday, causing a fall where he struck his cheek. not witnessed. CT scan completed in ED- head CT-no acute bleed. Per nurse, patient states he has had multiple episodes falls, and can't recount how many falls occurred. Negative for dysuria, changes in urinary frequency, vomiting, radiating chest pain, and dizziness. I assumed care on 09/09/2024. Patient is known to me from previous admission. 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 He reports chronic alcoholism and denies smoking although record review indicates he was aprevious smoker. Last January 2024 he reports coming to [place] for abdominal pain and had gallbladder removed and later he was intubated and airlifted to [facility]. He was in ECMO and later transitioned to Impelo which was later removed. His EF was in 15% and discharged home with hospice. He recovered well in home with hospice and his father support. Although he stopped drinking for 2 to 3 months after discharge but later started drinking since he was not able to get pain meds from his physicians. Patient follows with Dr. Mahmood at [facility] and Dr. Mcelroy here at [place]. During the evaluation patient reports he wanted to go with hospice and currently discharged with hospice. Status at Discharge Cognitive/behavioral status at discharge: Stable Time Spent with Patient Time attestation: Total time spent providing and/or coordinating discharge services:45 minutes Exam Narrative: GENERAL: Difficult to ascertain distress due to low energy level, frail appearance HEAD: Normal with no signs of head trauma. EYES: EOMI, PERRL, conjunctiva normal ENT: Hearing grossly intact LUNGS: Mild tachypnea, and labored breathing HEART: Regular rate and rhythm ABD: Diffuse 6/10 tenderness to light palpation with the exception of the RLQ. 10/10 tenderness suprapubically and epigastrically EXT: Pedal and brachial pulses intact bilaterally SKIN: [No rashes or lesions.] NEURO: Somnolent but wakes to voice. Significant bilateral weakness present. No gross focal sensory or strength deficits. No obvious tremors. PSYCH: flat affect DS: Data Data Completed and Pending Labs on day of discharge: Labs from last 24 hours 09/10/24 09/10/24 09/10/24 11:49 07:55 05:50 WBC 6.7 RBC 3.81 L Hgb 11.0 L Hct 36.0 L MCV 94.5 MCH 28.9 MCHC 30.6 L RDW 17.2 H Plt Count 168 MPV 10.3 Sodium 134 L Potassium 3.8 Chloride 89 L Carbon Dioxide > 40 H Anion Gap BUN 27 H Creatinine 0.63 L Estim Creat Clear Calc 115 Estimated GFR > 60 Glucose 131 H POC Capillary Glucose 293 H 152 H Calcium 8.9 Total Bilirubin 0.4 AST 131 H ALT 103 H Alkaline Phosphatase 59 Total Protein 7.0 Albumin 4.0 09/09/24 09/09/24 20:10 16:50 WBC RBC Hgb Hct MCV MCH MCHC RDW Plt Count MPV Sodium Potassium Chloride Carbon Dioxide Anion Gap BUN Creatinine Estim Creat Clear Calc Estimated GFR Glucose POC Capillary Glucose 176 H 219 H Calcium Total Bilirubin AST ALT Alkaline Phosphatase Total Protein Albumin Discharge Plan Discharge Attending physician on discharge: Nilson Bonner Consulting providers: Oliver Youngblood Discharging Clinician: Nilson Bonner Anticipated Discharge Date/Time: 09/10/24 16:11 Patient Disposition: Hospice - Home Activity: as tolerated Diet: as tolerated Discharge Instructions: Please have medical reconciliation as per hospice Patient Language: Mozambican Stand Alone Forms: General Discharge Information Discharge Medications: Continued chlordiazepoxide HCl 25 mg capsule 25 mg PO Q6-12H PRN (Reason: alcohol withdrawal) Qty: 15 0RF Rx Instructions: Take 2 tabs every 6 to 12 hours on day 1; 1 tab every 6 hours on day 2; 1 tab every 12 hours on day 3; 1 tab at night on day 4. famotidine 20 mg tablet 20 mg PO DAILY Qty: 30 0RF ondansetron 4 mg tablet,disintegrating 4 mg PO Q8H PRN (Reason: nausea and vomiting) Qty: 10 0RF hydrocodone-acetaminophen 10-325 mg tablet 1 tablet PO Q4H PRN (Reason: pain (scale score 4-6)) spironolactone [Aldactone] 25 mg tablet 12.5 mg PO Q12H clonazepam 2 mg tablet 2 mg PO BID zolpidem 10 mg tablet 10 mg PO HS PRN (Reason: insomnia) cyclobenzaprine 5 mg tablet 5 mg PO Q6H folic acid 400 mcg tablet 400 mcg PO DAILY melatonin 10 mg tablet 10 mg PO HS PRN (Reason: sleep) ferrous sulfate 325 mg (65 mg iron) tablet 325 mg PO DAILY carvedilol 3.125 mg tablet 3.125 mg PO Q12H ivabradine 5 mg tablet 5 mg PO DAILY pantoprazole 40 mg tablet,delayed release (DR/EC) 40 mg PO DAILY insulin lispro 100 unit/mL insulin pen 3 unit SUBCUT TIDWM pregabalin 100 mg capsule 100 mg PO DAILY insulin glargine [Lantus Solostar U-100 Insulin] 100 unit/mL (3 mL) insulin pen 5 unit SUBCUT DAILY oxycodone 10 mg tablet 10 mg PO Q6H PRN (Reason: pain) Entresto 24-26 mg tablet 0.5 tablet PO Q12H ondansetron 8 mg tablet,disintegrating 8 mg PO Q6H PRN (Reason: nausea and vomiting) Held furosemide 20 mg tablet 20 mg PO DAILY Hold Instructions: Resume on 09/29/24. Resume as per hospice protocol Date of admission: 09/09/24 10:35 Primary Care Provider: PHYSICIAN NOT ON STAFF,NONSTAFF Admitting Provider: Wicho Pineda Attending physician on admission: Wicho Pineda Condition: Stable
[2024-09-10 16:38] LABS: Glucose Point of Care 97 mg/dl (65-105)
== END 2024-09-10 16:50 | disposition hospice, home (50) | DRG 897 ==
LOC: ANHED 06:18 → ANH3MEDSUR 06:39
PROVIDERS: Nurse Practitioner; Admitting Provider Internal Medicine; Emergency Provider Emergency Medicine; Visit Provider General Practice
DX: F10.239 Alcohol dependence with withdrawal, unspecified (principal); I42.6 Alcoholic cardiomyopathy; K86.0 Alcohol-induced chronic pancreatitis; F11.20 Opioid dependence, uncomplicated; E44.0 Moderate protein-calorie malnutrition; G62.81 Critical illness polyneuropathy; I50.22 Chronic systolic (congestive) heart failure; Z68.1 Body mass index [BMI] 19.9 or less, adult; E11.42 Type 2 diabetes mellitus with diabetic polyneuropathy; R29.6 Repeated falls; F41.9 Anxiety disorder, unspecified; F17.210 Nicotine dependence, cigarettes, uncomplicated; Z79.4 Long term (current) use of insulin; Z51.5 Encounter for palliative care
CPT/HCPCS: 36415; 71045; 80053; 80307; 82077; 82948; 83605; 83690; 83735; 84100; 85025; 85027; 85610; 96372; 96374; 96375; 96376; 97161; 97165; 99285; A9270; G0378; J1650; J1815; J2060; J2405; J2560; J7040